=== PATIENT | male | born 1940 | race Caucasian/White ===

== ENCOUNTER 2023-04-06 11:35 | Outpatient (OUT) | payer MEDICARE, OTHER, SELFPAY ==
[2023-04-06 12:30] LABS: Basophils Percent Auto 0.5 % (0.2-2.0); Eosinophils Absolute Auto 0.1 10^3/uL (0.0-0.7); Eosinophils Percent Auto 3.6 % (0.9-7.0); Hematocrit 35.3 % (42.0-54.0); Hemoglobin 10.8 g/dL (14.0-18.0); Immature Granulocytes Abs Auto 0.01 10^3/uL (0.00-0.03); Immature Granulocytes Pct Auto 0.3 % (0.0-0.5); Lymphocytes Percent Auto 25.2 % (20.5-60.0); Mean Corpuscular HGB Conc 30.6 g/dL (29.9-35.2); Mean Corpuscular Hemoglobin 25.5 pg (25.9-34.0); Mean Corpuscular Volume 83.3 fL (80.0-94.0); Monocytes Absolute Auto 0.4 10^3/uL (0.3-0.8); Monocytes Percent Auto 10.9 % (1.7-12.0); Neutrophils Absolute Auto 2.3 10^3/uL (1.4-6.5); Neutrophils Percent Auto 59.5 % (43.0-75.0); Platelet Count 156 10^3/uL (150-450); Red Blood Count 4.24 10^6/uL (4.70-6.10); Red Cell Distribution Width 19.4 % (11.0-15.0); White Blood Count 3.9 10^3/uL (4.0-11.0)
[2023-04-06 12:46] LABS: Alanine Aminotransferase 31 U/L (16-63); Albumin Globulin Ratio 0.9; Albumin Level 3.3 g/dL (3.4-5.0); Alkaline Phosphatase 91 U/L (46-116); Anion Gap 11.8; Aspartate Amino Transferase 39 U/L (15-37); Bilirubin Total 0.7 mg/dL (0.2-1.0); Calcium 8.3 mg/dL (8.5-10.1); Carbon Dioxide 26.1 mmol/L (21.0-32.0); Chloride 107 mmol/L (98-107); Estimated GFR (African America >60 (>=60); Estimated GFR (Non-African Ame >60 (>=60); Globulin 3.8 g/dL; Glucose 105 mg/dL (74-106); Potassium 3.9 mmol/L (3.5-5.1); Sodium 141 mmol/L (136-145); Total Protein 7.1 g/dL (6.4-8.2)
[2023-04-07 03:07] LABS: Vitamin B12 280 pg/mL (232-1245)
== END 2023-04-06 11:36 | disposition home or self-care (01) ==
PROVIDERS: PCP Family Medicine; Visit Provider Family Medicine
DX: I48.21 Permanent atrial fibrillation (principal); R53.83 Other fatigue; I10 Essential (primary) hypertension
CPT/HCPCS: 36415; 80053; 82607; 82746; 85025

== ENCOUNTER 2023-10-13 08:08 | Outpatient (OUT) | payer MEDICARE, OTHER, SELFPAY ==
[2023-10-13 08:31] LABS: Basophils Percent Auto 0.6 % (0.2-2.0); Eosinophils Absolute Auto 0.2 10^3/uL (0.0-0.7); Eosinophils Percent Auto 3.6 % (0.9-7.0); Hematocrit 37.9 % (42.0-54.0); Hemoglobin 11.9 g/dL (14.0-18.0); Lymphocytes Absolute Auto 1.3 10^3/uL (1.2-3.8); Lymphocytes Percent Auto 24.1 % (20.5-60.0); Mean Corpuscular HGB Conc 31.4 g/dL (29.9-35.2); Mean Corpuscular Hemoglobin 28.9 pg (25.9-34.0); Mean Platelet Volume 9.9 fL (9.5-13.5); Monocytes Absolute Auto 0.5 10^3/uL (0.3-0.8); Monocytes Percent Auto 9.5 % (1.7-12.0); Neutrophils Absolute Auto 3.3 10^3/uL (1.4-6.5); Neutrophils Percent Auto 62.2 % (43.0-75.0); Platelet Count 191 10^3/uL (150-450); Red Blood Count 4.12 10^6/uL (4.70-6.10); Red Cell Distribution Width 15.4 % (11.0-15.0); White Blood Count 5.3 10^3/uL (4.0-11.0)
[2023-10-13 08:40] LABS: Alanine Aminotransferase 24 U/L (16-63); Albumin Globulin Ratio 0.7; Alkaline Phosphatase 82 U/L (46-116); Anion Gap 10.7; Aspartate Amino Transferase 20 U/L (15-37); BUN Creatinine Ratio 13.3; Bilirubin Total 1.1 mg/dL (0.2-1.0); Calcium 8.5 mg/dL (8.5-10.1); Carbon Dioxide 29.3 mmol/L (21.0-32.0); Chloride 104 mmol/L (98-107); Chol HDL Ratio 1.8; Cholesterol 98 mg/dL (<=200); Estimated GFR (African America >60 (>=60); Estimated GFR (Non-African Ame >60 (>=60); Globulin 4.1 g/dL; Glucose 100 mg/dL (74-106); HDL Cholesterol 56 mg/dL (40-60); Sodium 140 mmol/L (136-145); Total Protein 7.1 g/dL (6.4-8.2); Triglycerides 35 mg/dL (<=150)
== END 2023-10-13 08:09 | disposition home or self-care (01) ==
LOC: LAB 08:10
PROVIDERS: PCP Family Medicine; Visit Provider Family Medicine
DX: I25.10 Atherosclerotic heart disease of native coronary artery without angina pectoris (principal); I10 Essential (primary) hypertension; E78.5 Hyperlipidemia, unspecified
CPT/HCPCS: 36415; 80053; 80061; 85025

== ENCOUNTER 2024-10-05 07:50 | Outpatient (OUT) | payer MEDICARE, OTHER, SELFPAY ==
--- NOTE | 2024-10-05 08:01 | CT_ITS ---
[address] [address] Patient Name: BRAVO TOLEDO MRN: [id number] date: 1940 Sex: M Assigned Patient Location: LAB Current Patient Location: LAB Accession/Order Number: [id number] Exam Date: 10/05/2024 08:50 Report Date: 10/05/2024 09:55 At the request of: MYLENE GUADALUPE Procedure: CT abdomen pelvis wo/w con EXAMINATION: CT abdomen pelvis wo/w con HISTORY: Cyst Of Pancreas, Lesion Left Lobe Liver ; history of bladder cancer COMPARISON: CT abdomen pelvis 05/17/2022 TECHNIQUE: Axial, Coronal, and Sagittal images were obtained without and/or with IV contrast as indicated by examination type. Dose reduction techniques were achieved by using automated exposure control and/or adjustment of mA and/or kV according to patient size and/or use of iterative reconstruction technique. FINDINGS: LUNG BASES: Moderate emphysematous changes. LIVER: Scattered small nonenhancing hypodensities favoring cysts. BILIARY: Cholecystectomy. PANCREAS: Nonenhancing 2.5 cm fluid collection projecting anteriorly from body of pancreas compatible with a pseudocyst. No mass, abnormal duct dilation, or inflammatory changes. SPLEEN: No enlargement or focal lesion. ADRENALS: No mass or enlargement. KIDNEYS: A few tiny hypodensities which are too small to characterize but favor cysts. No mass, obstruction, or calcification. BOWEL/MESENTERY: Prior resection and anastomosis of the colon in region of the splenic flexure with development of a large pouchlike area: Unchanged. Diverticulosis of distal colon. No visible mass, obstruction, or bowel wall thickening. AORTA/VASCULAR: No aneurysm or dissection. RETROPERITONEUM: No mass or adenopathy. LYMPH NODES: No adenopathy. URINARY BLADDER: No visible focal wall thickening, lesion, or calculus. PELVIC ORGANS: No visible mass. Pelvic organs appropriate for patient age. ABDOMINAL WALL: Bowel filled supraumbilical ventral hernia 9.4 x 11.4 x 2.7 cm with wide neck; no obstruction or strangulation. BONES: Multilevel moderate-marked degenerative disc disease and mild degenerative facet arthropathy resulting in central canal and foraminal narrowing. Prior right hip replacements and repair of posterior margin of the acetabulum and ischial tuberosity. Old, healed right pubic rami fractures. OTHER: Negative. CT/CT abdomen pelvis wo/w con IMPRESSION: 1. Pancreatic lesion is compatible with a benign-appearing pseudocyst. 2. Hepatic lesions are compatible with benign-appearing cysts. 3. Large supraumbilical ventral hernia containing bowel which is increased in size. No obstruction or strangulation. 4. Additional chronic changes detailed above. Electronically authenticated by: SARAH ROSA Date: 10/05/2024 09:55
[2024-10-05 08:23] LABS: Estimated GFR (African America >60 (>=60 mL/min/1.73m^2); Estimated GFR (Non-African Ame >60 (>=60 mL/min/1.73m^2)
== END 2024-10-05 07:51 | disposition home or self-care (01) ==
LOC: LAB 07:50
PROVIDERS: PCP Family Medicine; Visit Provider Family Medicine
DX: K86.2 Cyst of pancreas (principal); K76.9 Liver disease, unspecified; K43.9 Ventral hernia without obstruction or gangrene
CPT/HCPCS: 36415; 74178; 82565; Q9967

== ENCOUNTER 2025-02-20 09:28 | Outpatient (OUT) | payer MEDICARE, OTHER, SELFPAY ==
--- OUTSIDE RECORDS SUMMARY | 2025-02-09 03:23 | XMS_ITS | Continuity of Care Document ---
Author Organization [facility] Address [address] [place] [address] Phone Support Name Relationship Address Phone Claude Smitha Emergency Contact [address] [place] [address] [address] [place] [address] Monty Rubio DO Personal Relationship [address] [place] [address] Yokasta Dunn MD Personal Relationship [address] [place] [address] Orestes Guthrie MD Personal Relationship [address] [place] [address] Ric Rebollar MD Personal Relationship [address] [place] [address] Miladys Shields MD Personal Relationship [address] [place] [address] Rossy Rivera WEB SITE PROJECT MANAGER-C Personal Relationship Unknown Unavailable Godwin Gordillo DO Personal Relationship [address] [place] [address] Haroldo Ko II, MD Personal Relationship [address] [place] [address] Selvin Gregorio DO Personal Relationship [address] [place] [address] [address] Teresa Cuellar RN Personal Relationship Unknown Unavailable Chapo Lowe DO Personal Relationship [address] [place] [address] Chicho Sheppard MD Personal Relationship [address] [place] [address] Rodolfo Willis MD Personal Relationship [address] [place] [address] Albertina Rousseau MD Personal Relationship [address] [place] [address] Kev Gooden MD Personal Relationship [address] [facility], [address] [place] [address] Elsy Coronel APRN Personal Relationship [address] [place] [address] Virgen Potts MD Personal Relationship [address] [facility], [address] [place] [address] Jean Marie Bella MD Personal Relationship [address] [place] [address] Dimple Grijalva MD Personal Relationship [address] [place] [address] Tere Deluna TIMBER POISONER-BC Personal Relationship [address] [facility] [address] [place] [address] Rahul Barboza MD Personal Relationship [address] [place] [address] Rachel Velazquez MD Personal Relationship [address] [place] [address] Kayden Odom MD Personal Relationship [address] [facility], [address] [place] [address] Jen Acevedo APRN Personal Relationship [address] [facility] [address] [place] [address] Porfirio Grider Jr, DO Personal Relationship [address] [facility], [address] [place] [address] Jorge Clifton MD Personal Relationship [address] [facility] [place] [address] Gabriela Gurrola RN Personal Relationship Unknown Unavailable Ольга Tiwari RN Personal Relationship Unknown Unavailable Aracelis Suarez RN Personal Relationship Unknown Unavailable Stacey Aranda RN Personal Relationship Unknown Un available Mariya Hutton RN Personal Relationship Unknown Jo Ann Lucia Hoffman MD Personal Relationship [address] [place] [address] Aldair Weston DO Personal Relationship [place] [address] Jose Alfredo Sorenson MD Personal [place] [address] Vicente Acevedo DO Personal Relationship [address] [place] [address] MD Personal Relationship [address] [place] [address] Christine Goodson MD Personal Relationship [address] [place] [address] Shade Vickers DO Personal Relationship [address] [place] [address] Gt Devlin MD Personal Relationship Unknown Un available Re Rivera APRN Personal Relationship [address] [place] [address] Sebastian Zacarias MD Personal Relationship [address] [place] [address] Sylvain Hurtado MD Personal Relationship [address] [place] [address] Elizabeth Holguin MD Personal Relationship Unknown U navailable Isaura Pepper MD Personal Relationship [address] [place] [address] Shade Medina DO Personal Relationship [address] [place] [address] Moises Samson MD Personal Relationship [address] [place] [address] Wayne Rolwey MD Personal Relationship [address] [place] [address] Lesvia Conteh WEB SITE PROJECT MANAGER-C Personal Relationship [address] [place] [address] Andrew Sultana FARM MANAGEMENT AGENT Personal Relationship Unknown Unavailable Luis Alfredo Wiley [place] [address] Fuad Thomas MD Personal Relationship [address] [place] [address] Hemal Sharma MD Personal Relationship [address] [place] [address] Bong Patel MD Personal Relationship Unknown Unavailable Carlos Eduardo Monreal MD [place] [address] Arabella Rae DO Personal Relationship [address] [place] [address] Liam Tran DO Personal Relationship [address] [place] [facility] [place] [address] Pratibha Wright FARM MANAGEMENT AGENT Personal Relationship [address] [facility] [place] [address] Edy Hoyt DO Personal Relationship [address] [facility] [place] [address] Dylan Callejas MD Personal Relationship [address] [place] [address] Ninfa Coronel FARM MANAGEMENT AGENT Personal Relationship [address] [place] [facility] [address] Lauren Hutchinson FARM MANAGEMENT AGENT Personal Relationship [address] [place] [address] Kaila Sainz MD Personal Relationship Unknown Un available Blayne Yoon MD Personal Relationship 11 [address] [place] [address] Eric Worley DO Personal Relationship [address] [place] [address] Chester Ashley DO Personal Relationship [address] [facility] [place] [address] Bryan Sharma MD Personal Relationship [address] [facility] [place] [address] Rob Rodriguez MD Personal Relationship [address] [place] [address] Lissa Butcher APRN Personal Relationship Unknown Unavailable Aris Clark MD Personal Relationship [address] [place] [address] Kayden Soliz MD Personal Relationship [address] [place] [address] Gt Moncada MD Personal Relationship [address] [place] [place] [address] Glory Miguel APRN Personal Relationship [address] [place] [address] Jann Cedillo FARM MANAGEMENT AGENT Personal Relationship [address] [place] [address] Destinee Oscar RN Personal Relationship Unknown Un available Chris Arce DO Personal Relationship [address] [facility] [place] [address] Nica Martinez DO Personal Relationship [address] [facility], [address] [place] [address] Magy Olvera CMA Personal Relationship Unknown Unavailable Care Team Providers Care Provider Relations Advocate Name Role Phone Monty Rubio DO Emergency Provider [phone] Yokasta Dunn MD Primary Care Provider Orestes Guthrie MD Admit Provider Ric Rebollar MD Other Provider Miladys Shields MD Other Provider Rossy Rivera WEB SITE PROJECT MANAGER-C Other Provider Unavail able Godwin Gordillo DO Other Provider Haroldo Ko II, MD Other Provider Selvin Gregorio DO Other Provider [phone] Rahul Barboza MD Attending Provider Rachel Velazquez MD Other Provider Kayden Odom MD Other Provider Jen Acevedo APRN Other Provider Porfirio Grider Jr DO Other Provider Jorge Clifton MD Other Provider Amadou Arreguin MD Other Provider Jorge Clifton MD Admit Provider Jorge Clifton MD Attending Provider Gabriela Gurrola RN Other Provider Unavailable Ольга Tiwari RN Other Provider Unavailable Aracelis Suarez RN Other Provider Unavailable Stacey Aranda RN Other Provider Unavailable Mariya Hutton RN Other Provider Unavailable Lucia Orlando MD Other Provider Aldair Weston DO Other Provider [phone] Jose Alfredo Sorenson MD Other Provider Vicente Acevedo DO Other Provider Blayne Street MD Other Provider Christine Goodson MD Other Provider Shade Vickers DO Other Provider [phone] Gt Devlin MD Other Provider Unavailable Re Rivera FARM MANAGEMENT AGENT Other Provider [phone] Sebastian Zacarias MD Other Provider [phone] Sylvain Hurtado MD Other Provider Elizabeth Holguin MD Other Provider Unavailable Isaura Pepper MD Other Provider [phone] Shade Medina DO Other Provider Moises Samson MD Other Provider Wayne Rowley MD Other Provider Lesvia Conteh WEB SITE PROJECT MANAGER-C Other Provider Andrew Sultana FARM MANAGEMENT AGENT Other Provider Unavailable Luis Alfredo Wiley MD Other Provider Fuad Thomas MD Other Provider Hemal Sharma MD Other Provider Bong Patel MD Other Provider Unavailable Carlos Eduardo Monreal MD Other Provider Arabella Rae DO Other Provider Liam Tran DO Other Provider [phone] Pratibha Wright FARM MANAGEMENT AGENT Other Provider Edy Hoyt DO Other Provider Dylan Callejas MD Other Provider [phone] Ninfa Coronel FARM MANAGEMENT AGENT Other Provider [phone] Lauren Hutchinson FARM MANAGEMENT AGENT Other Provider Kaila Sainz MD Other Provider Unavailable Blayne Yoon MD Other Provider Eric Worley DO Other Provider Chester Ashley DO Other Provider [phone] Bryan Sharma MD Other Provider [phone] Rob Rodriguez MD Other Provider Lissa Butcher APRN Other Provider Unavailable Orestes Guthrie MD Other Provider Aris Clark MD Other Provider Kayden Soliz MD Other Provider Gt Moncada MD Other Provider Rahul Barboza MD Other Provider Glory Miguel APRN Other Provider Jann Cedillo FARM MANAGEMENT AGENT Other Provider Destinee Oscar RN Other Provider Unavailable Chris Arce DO Other Provider Godwin Gordillo DO Attending Provider Care Teams Patient Care Team Team Status: Active Member Role Status Dates Yokasta Dunn MD Primary Care Provider Active Visit Care Team Team Status: Inactive Member Role Status Dates Monty Rubio DO Emergency Provider Active Start: November 10, 2024 End: November 18, 2024 Yokasta Dunn MD Primary Care Provider Active Start: November 10, 2024 End: November 18, 2024 Orestes Guthrie MD Admit Provider Active Start: [id number] End: November 18, 2024 Ric Rebollar MD Other Provider Active Start: 2024 End: November 18, 2024 Miladys Shields MD Other Provider Active Star t: November 10, 2024 End: November 18, 2024 Rossy Rivera , WEB SITE PROJECT MANAGER-C Other Provider Active Start: November 10, 2024 End: November 18, 2024 Godwin Gordillo DO Other Provider Active Start : November 10, 2024 End: November 18, 2024 Haroldo Ko II, MD Other Provider Active S tart: November 10, 2024 End: November 18, 2024 Selvin Gregorio DO Other Provider Active Start: November 10, 2024 End: November 18, 2024 Rahul Barboza MD Attending Provider Active Star t: November 10, 2024 End: November 18, 2024 Rachel Velazquez MD Other Provider Active Start: [place] 2024 End: November 18, 2024 Kayden Odom MD Other Provider Active Start: 2024 End: November 18, 2024 Jen Acevedo APRN Other Provider Active St art: November 10, 2024 End: November 18, 2024 Porfirio Grider Jr, DO Other Provider Active S tart: November 10, 2024 End: November 18, 2024 Jorge Clifton MD Other Provider Active Start: November 10, 2024 End: November 18, 2024 Amadou Arreguin MD Other Provider Active Start: November 10, 2024 End: November 18, 2024 Visit Care Team Team Status: Active Member Role Status Dates Monty Rubio DO Emergency Provider Active Start: November 11, 2024 Yokasta Dunn MD Primary Care Provider Active Start: November 11, 2024 Orestes Guthrie MD Admit Provider, Othe r Provider Active Start: November 11, 2024 Ric Rebollar MD Other Provider Active Start: ebruary 2024 Miladys Shields MD Other Provider Active Star t: November 11, 2024 Rossy Rivera NP-C Other Provider Active Start: November 11, 2024 Godwin Gordillo DO Attending Provider, Other Provider Active Start: November 11, 2024 Haroldo Ko II, MD Other Provider Active S tart: November 11, 2024 Selvin Gregorio DO Other Provider Active Start: November 11, 2024 Teresa Cuellar RN Other Provider Active Star t: November 11, 2024 Chapo Lowe DO Other Provider Active Start : November 11, 2024 Chicho Sheppard MD Other Provider Active Start: November 11, 2024 Rodolfo Willis MD Other Provider Active Start: November 11, 2024 Albertina Rousseau MD Other Provider Active St art: November 11, 2024 Kev Gooden MD Other Provider Active Start: November 11, 2024 Elsy Coronel APRN Other Provider Active Start : November 11, 2024 Virgen Potts MD Other Provider Active Start: ebruary 2024 Jean Marie Bella MD Other Provider Active Start: November 11, 2024 Dimple Grijalva MD Other Provider Active Start: ebruary 2024 Tere Deluna , TIMBER POISONER- Other Provider Active Sta rt: November 11, 2024 Visit Care Team Team Status: Active Member Role Status Dates Monty Rubio DO Emergency Provider Active Start: November 13, 2024 Yokasta Dunn MD Primary Care Provider Active Start: November 13, 2024 Orestes Guthrie MD Admit Provider Active Start: ebruary 2024 Ric Rebollar MD Other Provider Active Start: ebruary 2024 Miladys Shields MD Other Provider Active Star t: November 13, 2024 TRINI Fernando Other Provider Active Start: November 13, 2024 Godwin Gordillo , DO Other Provider Active Start : November 13, 2024 Haroldo Ko II, MD Other Provider Active S tart: November 13, 2024 Selvin Gregorio , DO Other Provider Active Start: November 13, 2024 Teresa Cuellar RN Other Provider Active Star t: November 13, 2024 Chapo Lowe , Other Provider Active Start : November 13, 2024 Chicho Sheppard MD Other Provider Active Start: November 13, 2024 Rodolfo Willis MD Other Provider Active Start: November 13, 2024 Albertina Rousseau MD Other Provider Active St art: November 13, 2024 Kev Gooden MD Other Provider Active Start: November 13, 2024 Elsy Coronel APRN Other Provider Active Start : November 13, 2024 Virgen Potts MD Other Provider Active Start: ebruary 2024 Jean Marie Bella MD Other Provider Active Start: November 13, 2024 Dimple Grijalva MD Other Provider Active Start: ebruary 2024 Tere Deluna , [facility]- Other Provider Active Sta rt: November 13, 2024 Rahul Barboza MD Other Provider Active Start: ebruary 2024 Rachel Velazquez MD Other Provider Active Start: bru2024 Kayden Odom MD Attending Provider, Other Provider Active Start: November 13, 2024 Jen Acevedo APRN Other Provider Active St art: November 13, 2024 Porfirio Grider Jr, DO Other Provider Active S tart: November 13, 2024 Jorge Clifton MD Other Provider Active Start: November 13, 2024 Visit Care Team Team Status: Inactive Member Role Status Dates Yokasta Dunn MD Primary Care Provider Active Start: November 18, 2024 End: November 30, 2024 Jorge Clifton MD Admit Provid er, Attending Provider Active Start: November 18, 2024 End: November 30, 2024 Gabriela Gurrola , GREG Other Provider Active Star t: November 18, 2024 End: November 30, 2024 Ольга Tiwari , GREG Other Provider Active Start : November 18, 2024 End: November 30, 2024 Aracelis Suarez RN Other Provider Active Star t: November 18, 2024 End: November 30, 2024 Stacey Aranda RN Other Provider Active Start: ebruary 2024 End: November 30, 2024 Mariya Hutton RN Other Provider Active Start: Fe bruary 2024 End: November 30, 2024 Lucia Orlando MD Other Provider Active Start: November 18, 2024 End: November 30, 2024 Aldair Weston DO Other Provider Active Start : November 18, 2024 End: November 30, 2024 Jose Alfredo Sorenson MD Other Provider Active Start : November 18, 2024 End: November 30, 2024 Vicente Acevedo DO Other Provider Active Start: November 18, 2024 End: November 30, [address] MD Other Provider Active Start: November 18, 2024 End: November 30, 2024 Christine Goodson MD Other Provider Active Start : November 18, 2024 End: November 30, 2024 Shade Vickers DO Other Provider Active St art: November 18, 2024 End: November 30, 2024 Gt Devlin MD Other Provider Active Start: ebruary 2024 End: November 30, 2024 Re Rivera APRN Other Provider Active Start: November 18, 2024 End: November 30, 2024 Sebastian Zacarias MD Other Provider Active Start: November 18, 2024 End: November 30, 2024 Sylvain Hurtado MD Other Provider Active Start: ebruary 2024 End: November 30, 2024 Elizabeth Holguin MD Other Provider Active Start: November 18, 2024 End: November 30, 2024 Isaura Pepper MD Other Provider Active Start: November 18, 2024 End: November 30, 2024 Shade Medina DO Other Provider Active Start: November 18, 2024 End: November 30, 2024 Moises Samson MD Other Provider Active Start: 2024 End: November 30, 2024 Wayne Rowley MD Other Provider Active Start: Oct End: November 30, 2024 TRINI Childers Other Provider Active St art: November 18, 2024 End: November 30, 2024 Andrew Sultana APRN Other Provider Active Star t: November 18, 2024 End: November 30, 2024 Luis Alfredo Wiley MD Other Provider Active Start: November 18, 2024 End: November 30, 2024 Fuad Thomas MD Other Provider Active Start: 2024 End: November 30, 2024 Hemal Sharma MD Other Provider Active Start: Oct End: November 30, 2024 Bong Patel MD Other Provider Active Star t: November 18, 2024 End: November 30, 2024 Carlos Eduardo Monreal MD Other Provider Active Start: 2024 End: November 30, 2024 Arabella Rae DO Other Provider Active Start: 2024 End: November 30, 2024 Liam Tran DO Other Provider Active Start : November 18, 2024 End: November 30, 2024 Pratibha Wright APRN Other Provider Active Start: November 18, 2024 End: November 30, 2024 Edy Hoyt DO Other Provider Active Start: November 18, 2024 End: November 30, 2024 Dylan Callejas MD Other Provider Active Sta rt: November 18, 2024 End: November 30, 2024 Ninfa Coronel APRN Other Provider Active Start : November 18, 2024 End: November 30, 2024 Lauren Hutchinson APRN Other Provider Active St art: November 18, 2024 End: November 30, 2024 Kaila Sainz MD Other Provider Active Start: 2024 End: November 30, 2024 Blayne Yoon MD Other Provider Active S tart: November 18, 2024 End: November 30, 2024 Eric Worley DO Other Provider Active Star t: November 18, 2024 End: November 30, 2024 Chester Ashley DO Other Provider Active Start: November 18, 2024 End: November 30, 2024 Bryan Sharma MD Other Provider Active Start: November 18, 2024 End: November 30, 2024 Rob Rodriguez MD Other Provider Active Start: October End: November 30, 2024 Lissa Butcher APRN Other Provider Active Star t: November 18, 2024 End: November 30, 2024 Orestes Guthrie MD Other Provider Active Start: ebruary 2024 End: November 30, 2024 Aris Clark MD Other Provider Active Start: [place] 2024 End: November 30, 2024 Kayden Soliz MD Other Provider Active Start: November 18, 2024 End: November 30, 2024 Gt Moncada MD Other Provider Active Start : November 18, 2024 End: November 30, 2024 Rahul Barboza MD Other Provider Active Start: ebruary 2024 End: November 30, 2024 Glory Miguel APRN Other Provider Active Sta rt: November 18, 2024 End: November 30, 2024 Jann Cedillo APRN Other Provider Active Start: October End: November 30, 2024 Destinee Oscar RN Other Provider Active Start: [place] 2024 End: November 30, 2024 Chris Arce DO Other Provider Active Start: November 18, 2024 End: November 30, 2024 Visit Care Team Team Status: Active Member Role Status Dates Yokasta Dunn MD Primary Care Provider Active Start: November 19, 2024 Jorge Clifton MD Admit Provid er, Attending Provider, Other Provider Active Start: November 19, 2024 Gabriela Gurrola RN Other Provider Active Star t: November 19, 2024 Ольга Tiwari RN Other Provider Active Start : November 19, 2024 Aracelis Suarez RN Other Provider Active Star t: November 19, 2024 Stacey Aranda RN Other Provider Active Start: ebruary 2024 Mariya Hutton RN Other Provider Active Start: 2024 Lucia Orlando MD Other Provider Active Start: November 19, 2024 Aldair Weston , Other Provider Active Start : November 19, 2024 Jose Alfredo Sorenson MD Other Provider Active Start : November 19, 2024 Vicente Acevedo DO Other Provider Active Start: November 19, [address] MD Other Provider Active Start: November 19, 2024 Christine Goodson MD Other Provider Active Start : November 19, 2024 Shade Vickers DO Other Provider Active St art: November 19, 2024 Gt Devlin MD Other Provider Active Start: 2024 Re Rivera APRN Other Provider Active Start: November 19, 2024 Sebastian Zacarias MD Other Provider Active Start: November 19, 2024 Sylvain Hurtado MD Other Provider Active Start: 2024 Elizabeth Holguin MD Other Provider Active Start: November 19, 2024 Isaura Pepper MD Other Provider Active Start: November 19, 2024 Shade Medina DO Other Provider Active Start: November 19, 2024 Moises Samson MD Other Provider Active Start: 2024 Wayne Rowley MD Other Provider Active Start: Oct Lesvia Conteh WEB SITE PROJECT MANAGER-C Other Provider Active St art: November 19, 2024 Andrew Sultana APRN Other Provider Active Star t: November 19, 2024 Luis Alfredo Wiley MD Other Provider Active Start: November 19, 2024 Fuad Thomas MD Other Provider Active Start: 2024 Hemal Sharma MD Other Provider Active Start: Oct Bong Patel MD Other Provider Active Star t: November 19, 2024 Carlos Eduardo Monreal MD Other Provider Active Start: ebruary 2024 Arabella Rae DO Other Provider Active Start: 2024 Liam Tran DO Other Provider Active Start : November 19, 2024 Pratibha Wright APRN Other Provider Active Start: November 19, 2024 Edy Hoyt DO Other Provider Active Start: November 19, 2024 Dylan Callejas MD Other Provider Active Sta rt: November 19, 2024 Ninfa Coronel APRN Other Provider Active Start : November 19, 2024 Lauren Hutchinson APRN Other Provider Active St art: November 19, 2024 Kaila Sainz MD Other Provider Active Start: ebruary 2024 Blayne Yoon MD Other Provider Active S tart: November 19, 2024 Eric Worley , Other Provider Active Star t: November 19, 2024 Chester Ashley DO Other Provider Active Start: November 19, 2024 Bryan Sharma MD Other Provider Active Start: November 19, 2024 Rob Rodriguez MD Other Provider Active Start: October Lissa Butcher APRN Other Provider Active Star t: November 19, 2024 Orestes Guthrie MD Other Provider Active Start: ebruary 2024 Aris Clark MD Other Provider Active Start: Fe bruary 2024 Kayden Soliz MD Other Provider Active Start: November 19, 2024 Gt Moncada MD Other Provider Active Start : November 19, 2024 Rahul Barboza MD Other Provider Active Start: ebruary 2024 Glory Miguel APRN Other Provider Active Sta rt: November 19, 2024 Jann Cedillo APRN Other Provider Active Start: October Destinee Oscar RN Other Provider Active Start: ebruary 2024 Visit Care Team Team Status: Active Member Role Status Dates Yokasta Dunn MD Primary Care Provider Active Start: November 26, 2024 Jorge Clifton MD Admit Provid er, Attending Provider, Other Provider Active Start: November 26, 2024 Gabriela Gurroal RN Other Provider Active Star t: November 26, 2024 Ольга Tiwari , GREG Other Provider Active Start : November 26, 2024 Aracelis Suarez RN Other Provider Active Star t: November 26, 2024 Stacey Aranda RN Other Provider Active Start: [facility] 2024 Mariya Hutton RN Other Provider Active Start: [facility] 2024 Lucia Orlando MD Other Provider Active Start: November 26, 2024 Aldair Weston DO Other Provider Active Start : November 26, 2024 Jose Alfredo Sorenson MD Other Provider Active Start : November 26, 2024 Vicente Acevedo DO Other Provider Active Start: November 26, [address] MD Other Provider Active Start: November 26, 2024 Christine Goodson MD Other Provider Active Start : November 26, 2024 Shade Vickers DO Other Provider Active St art: November 26, 2024 Gt Devlin MD Other Provider Active Start: [facility] 2024 Re Rivera APRN Other Provider Active Start: November 26, 2024 Sebastian Zacarias MD Other Provider Active Start: November 26, 2024 Sylvain Hurtado MD Other Provider Active Start: [facility] 2024 Elizabeth Holguin MD Other Provider Active Start: November 26, 2024 Isaura Pepper MD Other Provider Active Start: November 26, 2024 Shade Medina DO Other Provider Active Start: November 26, 2024 Moises Samson MD Other Provider Active Start: [facility] 2024 Wayne Rowley MD Other Provider Active Start: [facility] 2024 Lesvia Conteh NP-C Other Provider Active St art: November 26, 2024 Andrew Sultana APRN Other Provider Active Star t: November 26, 2024 Luis Alfredo Wiley MD Other Provider Active Start: November 26, 2024 Fuad Thomas MD Other Provider Active Start: [facility] 2024 Hemal Sharma MD Other Provider Active Start: [facility] 2024 Bong Patel MD Other Provider Active Star t: November 26, 2024 Carlos Eduardo Monreal MD Other Provider Active Start: [facility] 2024 Arabella Rae DO Other Provider Active Start: [facility] 2024 Liam Tran DO Other Provider Active Start : November 26, 2024 Pratibha Wright APRN Other Provider Active Start: November 26, 2024 Edy Hoyt DO Other Provider Active Start: November 26, 2024 Dylan Callejas MD Other Provider Active Sta rt: November 26, 2024 Ninfa Coronel APRN Other Provider Active Start : November 26, 2024 Lauren Hutchinson APRN Other Provider Active St art: November 26, 2024 Kaila Sainz MD Other Provider Active Start: [facility] 2024 Blayne Yoon MD Other Provider Active S tart: November 26, 2024 Eric Worley , Other Provider Active Star t: November 26, 2024 Chester Ashley , Other Provider Active Start: November 26, 2024 Bryan Sharma MD Other Provider Active Start: November 26, 2024 Rob Rodriguez MD Other Provider Active Start: November 26 Lissa Butcher APRN Other Provider Active Star t: November 26, 2024 Orestes Guthrie MD Other Provider Active Start: [facility] 2024 Aris Clark MD Other Provider Active Start: [facility] 2024 Kayden Soliz MD Other Provider Active Start: November 26, 2024 Gt Moncada MD Other Provider Active Start : November 26, 2024 Rahul Barboza MD Other Provider Active Start: [facility] 2024 Glory Miguel APRN Other Provider Active Sta rt: November 26, 2024 Jann Cedillo APRN Other Provider Active Start: November 26 Destinee Oscar RN Other Provider Active Start: [facility] 2024 Chris Arce DO Other Provider Active Start: November 26, 2024 Visit Care Team Team Status: Active Member Role Status Dates Yokasta Dunn MD Primary Care Provider Active Start: November 27, 2024 Jorge Clifton MD Admit Provid er, Other Provider Active Start: November 27, 2024 Gabriela Gurrola RN Other Provider Active Star t: November 27, 2024 Ольга Tiwari , GREG Other Provider Active Start : November 27, 2024 Aracelis Suarez , GREG Other Provider Active Star t: November 27, 2024 Stacey Aranda RN Other Provider Active Start: [facility] 2024 Mariya Hutton RN Other Provider Active Start: [facility] 2024 Lucia Orlando MD Other Provider Active Start: November 27, 2024 Aldair Weston , Other Provider Active Start : November 27, 2024 Jose Alfredo Sroenson MD Other Provider Active Start : November 27, 2024 Vicente Acevedo , Other Provider Active Start: November 27, [address] MD Other Provider Active Start: November 27, 2024 Christine Goodson MD Other Provider Active Start : November 27, 2024 Shade Vickers , Other Provider Active St art: November 27, 2024 Gt Devlin MD Other Provider Active Start: [facility] 2024 Re Rivera APRN Other Provider Active Start: November 27, 2024 Sebastian Zacarias MD Other Provider Active Start: November 27, 2024 Sylvain Hurtado MD Other Provider Active Start: [facility] 2024 Elizabeth Holguin MD Other Provider Active Start: November 27, 2024 Isaura Pepper MD Other Provider Active Start: November 27, 2024 Shade Medina DO Other Provider Active Start: November 27, 2024 Moises Samson MD Other Provider Active Start: [facility] 2024 Wayne Rowley MD Other Provider Active Start: [facility] 2024 Lesvia Conteh NP-C Other Provider Active St art: November 27, 2024 Andrew Sultana APRN Other Provider Active Star t: November 27, 2024 Luis Alfredo Wiley MD Other Provider Active Start: November 27, 2024 Fuad Thomas MD Other Provider Active Start: [facility] 2024 Hemal Sharma MD Other Provider Active Start: [facility] 2024 Bong Patel MD Other Provider Active Star t: November 27, 2024 Carlos Eduardo Monreal MD Other Provider Active Start: [facility] 2024 Arabella Rae , Other Provider Active Start: [facility] 2024 Liam Tran , Other Provider Active Start : November 27, 2024 Pratibha Wright APRN Other Provider Active Start: November 27, 2024 Edy Hoyt DO Other Provider Active Start: November 27, 2024 Dylan Callejas MD Other Provider Active Sta rt: November 27, 2024 Ninfa Coronel APRN Other Provider Active Start : November 27, 2024 Lauren Hutchinson APRN Other Provider Active St art: November 27, 2024 Kaila Sainz MD Other Provider Active Start: [facility] 2024 Blayne Yoon MD Other Provider Active S tart: November 27, 2024 Eric Worley , DO Other Provider Active Star t: November 27, 2024 Chester Ashley , Other Provider Active Start: November 27, 2024 Bryan Sharma MD Other Provider Active Start: November 27, 2024 Rob Rodriguez MD Other Provider Active Start: November 27 Lissa Butcher APRN Other Provider Active Star t: November 27, 2024 Orestes Guthrie MD Other Provider Active Start: [facility] 2024 Aris Clark MD Other Provider Active Start: [facility] 2024 Kayden Soliz MD Other Provider Active Start: November 27, 2024 Gt Moncada MD Other Provider Active Start : November 27, 2024 Rahul Barboza MD Other Provider Active Start: [facility] 2024 Glory Miguel APRN Other Provider Active Sta rt: November 27, 2024 Jann Cedillo APRN Other Provider Active Start: November 27 Destinee Oscar RN Other Provider Active Start: [facility] 2024 Chris Arce DO Other Provider Active Start: November 27, 2024 Nica Martinez DO Attending Provider Active Start: November 27, 2024 Visit Care Team Team Status: Active Member Role Status Dates Yokasta Dunn MD Primary Care Provider Active Start: November 29, 2024 Magy Olvera CMA Attending Provider Active Start: November 29, 2024 Visit Care Team Team Status: Inactive Member Role Status Dates Yokasta Dunn MD Primary Care Provide r, Attending Provider Active Start: December 03, 2024 End: December 03, 2024 Visit Care Team Team Status: Inactive Member Role Status Dates Yokasta Dunn MD Primary Care Provider Active Start: December 07, 2024 End: December 07, 2024 Godwin Gordillo DO Attending Provider Active S tart: December 07, 2024 End: December 07, 2024 Visit Care Team Team Status: Inactive Member Role Status Dates Yokasta Dunn MD Primary Care Provider Active Start: December 07, 2024 End: December 07, 2024 Godwin Gordillo DO Attending Provider Active S tart: December 07, 2024 End: December 07, 2024 Patient Care Team Team Status: Inactive Member Role Status Dates Yokasta Dunn MD Primary Care Provide r, Attending Provider Active Start: February 05, 2025 End: February 05, 2025 Chief Complaint and Reason for Visit Chief Complaint Admit Date left leg pain November 10, 2024 7:04pm left leg pain November 11, 2024 5:52pm left leg pain November 13, 2024 1:33pm L hip fx s/p orif November 18, 2024 1:05pm L hip fx s/p orif November 19, 2024 10:11am L hip fx s/p orif November 26, 2024 2:53 pm L hip fx s/p orif November 27, 2024 11:2 6am Amb Documentation November 29, 2024 1:41 pm [facility] [place] left femoral neck fracture [facility] 2024 2:19pm S72.002A - Fracture of unspecified part of neck of December 07, 2024 8:07am 3 WEEKS December 07, 2024 9:3 5am Check Up February 05, 2025 10:22 am Reason for Visit Admit Date History of head and neck cancer November 10, 2024 7:04pm Pathological fracture, left femur, initial encounter for fracture November 10, 2024 7:04pm Pre-op evaluation November 10, 2024 7:04pm Closed displaced fracture of left femora l neck November 10, 2024 7:04pm Dysphagia November 10, 2024 7:04pm Mild left ventricular systolic dysfuncti on November 10, 2024 7:04pm Permanent atrial fibrillation October [id number] 7:04pm S/P CABG x 3 November 10, 2024 7:04pm Severe protein-calorie malnutrition Febr ry 2024 7:04pm Sick sinus syndrome November 10, 2024 7:04pm Status post placement of cardiac pacemak er November 10, 2024 7:04pm Closed displaced fracture of left femora l neck November 18, 2024 1:05pm Counseling regarding advance care planning and goals of care November 18, 2024 1:05pm Dysphagia November 18, 2024 1:05pm Impaired mobility and activities of saadia y living November 18, 2024 1:05pm Mild left ventricular systolic dysfuncti on November 18, 2024 1:05pm Permanent atrial fibrillation October [id number] 1:05pm S/P CABG x 3 November 18, 2024 1:05pm Severe protein-calorie malnutrition Febr uary 2024 1:05pm Sick sinus syndrome November 18, 2024 1:05pm Status post placement of cardiac pacemak er November 18, 2024 1:05pm Closed displaced fracture of left femora l neck December 03, 2024 2:19pm Dysphagia December 03, 2024 2:1 9pm Permanent atrial fibrillation November 2:19pm Severe protein-calorie malnutrition Jose 2024 2:19pm Sick sinus syndrome December 03, 2024 2:1 9pm Closed displaced fracture of left femora l neck December 07, 2024 9:35am History of total right hip arthroplasty December 07, 2024 9:35am Swallowing disorder February 05, 2025 10:22 am Health Concerns Concerns A [facility] screening has identified you as FRAIL or AT RISK FOR FRAILTY. This puts you at a higher risk for infection, illness, falls, and other injuries. Here are four ways to help you reduce your risk of frailty: 1. IDENTIFY EARLY SIGNS OF FRAILTY Discuss contributing factors and concerns with your doctor 2. BE ACTIVE Walking and light strengthening exercises will help reduce weakness 3. EAT WELL Aim for three healthy meals a day that are high in protein 4. THINK POSITIVE Keep your mind active by being sociable and continuing to learn References: Stay Strong: Four Ways to Beat the Frailty Risk https://www.[facility].org/health/xpoagstc-iwa-yxzsvrwiry/nfgr-jddiru-oxxx- ways- yo-nvnp-ybv-fra ilty-risk A [facility] screening has identified you as FRAIL or AT RISK FOR FRAILTY. This puts you at a higher risk for infection, illness, falls, and other injuries. Here are four ways to help you reduce your risk of frailty: 1. IDENTIFY EARLY SIGNS OF FRAILTY Discuss contributing factors and concerns with your doctor 2. BE ACTIVE Walking and light strengthening exercises will help reduce weakness 3. EAT WELL Aim for three healthy meals a day that are high in protein 4. THINK POSITIVE Keep your mind active by being sociable and continuing to learn References: Stay Strong: Four Ways to Beat the Frailty Risk https://www.[facility].org/health/fgoulbjy-fzq-yvtqvzytze/icct-ubsjab-xxij- ways- zy-deyo-gvd-fra ilty-risk Allergies, Adverse Reactions, Alerts Allergen Type Severity Reaction Last Updated Verified Status Comments gabapentin Allergy Unknown Unknown Reaction February 05, 2025 10:36am Yes Active Onset Date: 09/22/2017 penicillin V Allergy Unknown Unknown Reaction February 05, 2025 10:36am Yes Active Penicillins Allergy Unknown Unknown Reaction February 05, 2025 10:36am Yes Active haloperidol Allergy Unknown HYPOXIA February 05, 2025 10:36am Yes Active lorazepam Allergy Unknown HYPOXIA February 05, 2025 10:36am Yes Active ziprasidone Allergy Unknown HYPOXIC February 05, 2025 10:36am Yes Active Social History Smoking Status Status Start Date End Date Date of Observa tion Never smoked tobacco (finding) November 27, 2024 11:26am Observation Status Observation Response Date of Response Patient Sex Male February 05, 2025 1 1:11am Assigned Sex Male February 20 2 Social History Assessments SDOH Follow up Observation Response Date Recorded Has the SDOH screening changed since admission? N November 29, 2024 5:15pm SDOH Follow up Observation Response Date Recorded Has the SDOH screening changed since admission? N November 13, 2024 2:10pm Family History Relationship Condition Age at Onset Recorded Date/T roxanne father Unknown mother Unknown Problems Active Problems Medical Problem Onset Date Status Benign positional vertigo Active Pathological fracture, left femur, initial encou nter for fracture Active Swallowing disorder Active Dysuria Active Hyperlipidemia Active Essential hypertension Active History of head and neck cancer Active Lesion of left lobe of liver Act bereket Cystic mass of pancreas Active Inactive/Resolved Problems Medical Problem Onset Date Status Counseling regarding advance care planning and g oals of care Resolved Mild left ventricular systolic dysfunction Resolved Status post placement of cardiac pacemaker Resolved Impaired mobility and activities of daily living Resolved Severe protein-calorie malnutrition Resolved Sick sinus syndrome Resolved Dysphagia Resolved Pre-op evaluation Resolved Permanent atrial fibrillation Re solved Closed displaced fracture of left femoral neck Resolved S/P CABG x 3 Resolved Malignant neoplasm of skin of face Resolved Medications Medication Status Dose Units Route Directions Qty Days St art Date Stop Date End Date Instructions Tobramycin-D examethasone 0.3-0.1 % Drops,Suspen nito Discont inued 1 DROPS OPHTHA LMIC Twice daily as needed for Eye allergy symptoms February 02, 2018 12:00a m Dece 2017 12:39 pm Atorvastatin 20 mg Tablet Active 20 MG PEG Every evening 30 November 28, 2024 1:00am Clopidogrel 75 mg Tablet Active 75 MG PEG Daily 30 November 28, 2024 1:00am Acetaminophe n 650 mg/20.3 mL Suspension Active 650 MG PEG Q6H 2436 November 28, 2024 1:00am Latanoprost 0.005 % Drops Active 1 DROPS EYE-EDDIE TH Daily at bedtime 2.November 28, 2024 1:00am Finasteride 5 mg Tablet Active 5 MG PEG Daily 30 November 28, 2024 1:00am Trazodone 50 mg Tablet Discont inued 50 MG PEG Daily at bedtime as needed for Insomnia 30 November 28, 2024 1:00am December 03, 2024 2:32p m Sennosides (Senna) 8.8 mg/5 mL Syrup Discont inued 8.8 MG PEG Daily at bedtime 150 November 28, 2024 1:00am December 03, 2024 2:54p m Metoprolol Tartrate 50 mg Tablet Discont inued 50 MG PEG Twice daily 60 November 28, 2024 1:00am December 03, 2024 3:02p m Melatonin 5 mg Tablet Discont inued 10 MG PEG Daily at bedtime 60 November 28, 2024 1:00am December 03, 2024 2:32p m Pantoprazole 40 mg Tablet,Delay ed Release (Dr/Ec) Discont inued 40 MG PO As Directed as needed for Acid Reflux January 09, 2018 12:00a m Dece 2017 12:39 pm Metoprolol Tartrate 50 mg Tablet Discont inued 50 MG FEEDTU BE Twice daily January 09, 2018 12:00a m November 28, 2024 2:14p m Docusate Sodium (Colace) 100 mg Capsule Discont inued 100 MG PO Twice daily January 09, 2018 12:00a m March 15, 2019 9:32a m Apixaban (Eliquis) 5 mg Tablet Discont inued 5 MG PO Twice daily January 09, 2018 12:00a m Febru 2024 5:27p m Hyaluronic Na-Allantoin -Aloe (Radiaplexrx ) Gel Discont inued 1 APPLIC TOPICA L Three times daily January 09, 2018 12:00a m Decem 2017 12:39 pm Magic Mouthwash Discont inued 10 ML PO Four times daily as needed for painful swallowing February 21, 2018 12:00a m April 14, 2018 10:11 am Tamsulosin 0.4 mg Capsule Discont inued 0.4 MG PO Daily March 15, 2019 12:00a m Febru 2024 5:27p m Bimatoprost (Lumigan) 0.01 % Drops Discont inued 1 DROPS EYE-EDDIE TH Every evening March 15, 2019 12:00a m u 2024 5:27p m Acetaminophe n 325 mg capsule Discont inued 975 MG FEEDTU BE Three times daily as needed for pain ua 2024 1:00am November 28, 2024 2:14p m Atorvastatin 20 mg tablet Discont inued 20 MG FEEDTU BE Every evening ua 2024 1:00am November 28, 2024 2:14p m Guaifenesin 100 mg/5 mL liquid Discont inued 200 MG FEEDTU BE Every 4 hours as needed for congestion 2024 1:00am November 28, 2024 2:14p m Lidocaine (Aspercreme (Lidocaine)) 4 % adhesive patch,[facility] Discont inued 1 PATCH TOPICA L Every 12 hours as needed for pain ua 2024 1:00am November 28, 2024 2:14p m Melatonin 5 mg capsule Discont inued 5 MG FEEDTU BE Daily at bedtime ua 2024 1:00am November 28, 2024 2:14p m Polyethylene Glycol 3350 (Miralax) 17 gram powder in packet Discont inued 17 GM FEEDTU BE Daily 2024 1:00am November 28, 2024 2:14p m Sennosides (Senna) 8.6 mg capsule Discont inued 17.2 MG FEEDTU BE Daily at bedtime 2024 1:00am November 28, 2024 2:14p m Doxycycline Hyclate 100 mg capsule Discont inued 100 MG PO Twice daily 4 2024 1:00am November 28, 2024 2:14p m Docusate Sodium 50 mg/5 mL Liquid Discont inued 100 MG PO Twice daily 600 30 2024 1:00am November 28, 2024 2:14p m Finasteride 5 mg tablet Discont inued 5 MG PO .GTUBE 0 2024 1:04pm November 28, 2024 2:14p m FreeTextSi tablet once a day; Note: Source Status: Taking; Provider: Mona Templeton ( ) Ciprofloxaci n Hcl 250 mg tablet Discont inued 250 MG PO Twice daily March 01, 2024 9:55am Octob er 2023 10:53 am Sennosides (Senna) 8.8 mg/5 mL syrup Discont inued 8.8 MG PEG Daily at bedtime 150 December 03, 2024 2:53pm February 05, 2025 11:01 am Metoprolol Tartrate 25 mg tablet Active 25 MG PEG Twice daily 60 December 03, 2024 2:59pm Ciprofloxaci n Hcl 250 mg tablet Discont inued 250 MG PO Twice daily February 06, 2024 12:00a m March 01, 2024 9:55a m Rosuvastatin 10 mg tablet Discont inued 1 TAB PO Daily Octobe r 2023 12:00a m Febru [email or web address] 5:27p m FreeTextSi tablet Orally Once a day; Note: Source Status: Continue; Provider: Mona Templeton ( ) Finasteride 5 mg tablet Discont inued 5 MG PO .NG Octobe r 2023 12:00a m Febru dorothea 2024 1:05p m FreeTextSi tablet once a day; Note: Source Status: Taking; Provider: Mona Templeton ( ) Lisinopril 2.5 mg tablet Discont inued 1 TAB [facility] 12:00a m Febr2024 5:27p m FreeTextSi tablet Orally Once a day; Note: Source Status: Continue; Provider: Mona Templeton ( ) Clopidogrel 75 mg tablet Discont inued 75 MG FEEDTU BE Daily [facility] 2023 12:00a m November 28, 2024 2:14p m FreeTextSi tablet Orally Once a day; Note: Source Status: Taking; Provider: Mona Templeton ( ) Latanoprost 0.005 % drops Discont inued 1 DROPS OPHTHA LMIC Daily at bedtime [facility] 2023 12:00a m November 28, 2024 2:14p m FreeTextSi drop into affected eye in the evening Ophthalmic Once a day; Note: Source Status: Taking; Provider: Mona Templeton ( ) Meclizine 25 mg tablet Discont inued 25 MG PO Three times daily as needed for dizziness [facility] 20[facility] 12:00a m Febru 2024 5:27p m 1/2 - 1 tab po q8h prn vertigo Sennosides (Senna) 8.8 mg/5 mL syrup Active 8.8 MG PEG Daily at bedtime 150 30 February 05, 2025 11:01a m Immunizations Immunization Event Date Not Given Reason Dose Number Skein Tier Lot Number Vaccine Information Statement (VIS) Detail influenza, unspecified formulation June 26, 2018 Medical Equipment Device Date Implanted Device Details Bipolar femoral head outer component, hemiarthroplasty November 12, 2024 ERIN: [id number] Issuing Agency: [employer] Device Id: [id number] Expiration Date: 2034-05-15 Lot Number: [id number] Femoral head/stem prosthesis adaptor November 12, 2024 ERIN: [id number] Issuing Agency: [facility] Device Id: [id number] Expiration Date: 2033-10-24 Lot Number: [id number] Coated hip femur prosthesis, modular November 12, 2024 ERIN: [id number] Issuing Agency: [facility] Device Id: [id number] Expiration Date: 2033-03-09 Lot Number: [id number] Procedures Procedure Date Performed Status XR femur LT 2V* November 10, 2024 6:13pm compl eted XR pelvis 1-2V November 10, 2024 6:13pm compl eted XR pelvis 1-2V November 12, 2024 5:31pm compl eted Insertion of Feeding Device into Stomach, Percutaneous Approach November 10, 2024 active XR pelvis 1-2V December 07, 2024 8:07am complete d Relevant Diagnostic Tests and/or Laboratory Data Laboratory Results Test Date/Time Result Interpretation Reference Range Result Comment Performing Site Corrected White Blood Count November 16, 2024 6:30am 6.8 10*3/uL 4.1-10.5 [facility] [id number] [address] [id number] Corrected White Blood Count November 29, 2024 5:42am 4.7 10*3/uL 4.1-10.5 [facility] [id number] [address] [id number] Uncorrected WBC Count November 14, 2024 8:16am 6.9 10*3/uL 4.1-10.5 [facility] [id number] [address] [id number] Uncorrected WBC Count November 29, 2024 5:42am 4.7 10*3/uL 4.1-10.5 [facility] [id number] [address] [place], [place] [address] Red Blood Count November 16, 2024 6:30am 3.22 10*6/uL Below low normal 3.90-5.60 [facility] [id number] [address] [place] [address] Red Blood Count November 29, 2024 5:42am 3.24 10*6/uL Below low normal 3.90-5.60 [facility] [id number] [address] [facility] [address] Hemoglobin November 16, 2024 6:30am 10.1 g/dL Below low normal 13.0-17.0 [facility] [id number] [address] [place] [address] Hemoglobin November 29, 2024 5:42am 10.3 g/dL Below low normal 13.0-17.0 [facility] [id number] [address] [place] [address] Hematocrit November 16, 2024 6:30am 29.6 % Below low normal 38.8-50.0 [facility] [id number] [address] [place] [address] Hematocrit November 29, 2024 5:42am 30.2 % Below low normal 38.8-50.0 [facility] [id number] [address] [facility] [address] Mean Corpuscular Volume November 16, 2024 6:30am 92.1 fL 83.5-101 [facility] [id number] [address] [place] [address] Mean Corpuscular Volume November 29, 2024 5:42am 93.4 fL 83.5-101 [facility] [id number] [address] [place] [address] Mean Corpuscular Hemoglobin November 16, 2024 6:30am 31.5 pg 27.5-35.2 [facility] [id number] [address] [place] [address] Mean Corpuscular Hemoglobin November 29, 2024 5:42am 32.0 pg 27.5-35.2 [facility] [id number] [address] [place] [address] Mean Corpuscular Hemoglobin Concent November 16, 2024 6:30am 34.2 g/dL 32.5-35.6 [facility] [id number] [address] [place] [address] Mean Corpuscular Hemoglobin Concent November 29, 2024 5:42am 34.2 g/dL 32.5-35.6 [facility] [id number] [address] [place] [address] Red Cell Distribution Width November 16, 2024 6:30am 16.8 % Above high normal 12.0-14.8 [facility] [id number] [address] [facility] [address] Red Cell Distribution Width November 29, 2024 5:42am 17.1 % Above high normal 12.0-14.8 [facility] [id number] [address] [facility] [address] Platelet Count November 16, 2024 6:30am 153 10*3/uL 150-450 [facility] [id number] [address] [facility] [address] Platelet Count November 29, 2024 5:42am 262 10*3/uL 150-450 [facility] [id number] [address] [facility] [address] Mean Platelet Volume November 16, 2024 6:30am 8.8 fL 6.6-10.1 [facility] [id number] [address] [facility] [address] Mean Platelet Volume November 29, 2024 5:42am 8.4 fL 6.6-10.1 [facility] [id number] [address] [facility] [address] Monocyte Distribution Width November 10, 2024 5:36pm 20.62 % Above high normal 0.00-20.00 For adults in ED, MDW > 20.0 may be associated with a higher risk of sepsis during the first 12 hrs of hospital admission [facility] [id number] [address] [facility] [address] Neutrophils (%) (Auto) November 14, 2024 8:16am 61.8 % . [facility] [id number] [address] [facility] [address] Neutrophils (%) (Auto) November 29, 2024 5:42am 58.9 % . [facility] [id number] [address] [place] [address] Lymphocytes (%) (Auto) November 14, 2024 8:16am 17.5 % . [facility] [id number] [address] [facility] [facility] [id number] Lymphocytes (%) (Auto) November 29, 2024 5:42am 20.2 % . [facility] [id number] [address] [facility] 37141 Monocytes (%) (Auto) November 14, 2024 8:16am 17.2 % . [facility] [id number] [address] [facility] 97546 Monocytes (%) (Auto) November 29, 2024 5:42am 13.7 % . [facility] [id number] [address] [facility] 51348 Eosinophils (%) (Auto) November 14, 2024 8:16am 2.9 % . [facility] [id number] [address] [facility] 11874 Eosinophils (%) (Auto) November 29, 2024 5:42am 6.3 % . [facility] [id number] [address] [facility] 08926 Basophils (%) (Auto) November 14, 2024 8:16am 0.6 % . [facility] [id number] [address] [facility] 62737 Basophils (%) (Auto) November 29, 2024 5:42am 0.9 % . [facility] [id number] [address] [facility] 48119 Nucleated RBC Relative Count (auto) November 14, 2024 8:16am 0.2 /100{WBC} 0-0.5 [facility] [id number] [address] [facility] 87490 Nucleated RBC Relative Count (auto) November 29, 2024 5:42am 0.2 /100{WBC} 0-0.5 [facility] [id number] [address] [facility] 90619 Neutrophils # (Auto) November 14, 2024 8:16am 4.3 10*3/uL 1.8-7.7 [facility] [id number] [address] [facility] 70805 Neutrophils # (Auto) November 29, 2024 5:42am 2.8 10*3/uL 1.8-7.7 [facility] [id number] [address] [facility] 38592 Lymphocytes # (Auto) November 14, 2024 8:16am 1.2 10*3/uL 1.00-4.8 [facility] [id number] [address] [facility] 58273 Lymphocytes # (Auto) November 29, 2024 5:42am 1.0 10*3/uL 1.00-4.8 [facility] [id number] [address] [place], [place] [address] Monocytes # (Auto) November 14, 2024 8:16am 1.2 10*3/uL Above high normal 0.0-0.8 [facility] [id number] [address] [place] [id number] Monocytes # (Auto) November 29, 2024 5:42am 0.6 10*3/uL 0.0-0.8 [facility] [id number] [address] [place], [place] [address] Eosinophils # (Auto) November 14, 2024 8:16am 0.2 10*3/uL 0.0-0.45 [facility] [id number] [address] [place] [id number] Eosinophils # (Auto) November 29, 2024 5:42am 0.3 10*3/uL 0.0-0.45 [facility] [id number] [address] [place], [place] [address] Basophils # (Auto) November 14, 2024 8:16am 0.0 10*3/uL 0.0-0.2 [facility] [id number] [address] [place], [place] [address] Basophils # (Auto) November 29, 2024 5:42am 0.0 10*3/uL 0.0-0.2 [facility] [id number] [address] [place], [place] [address] Prothrombin Time November 10, 2024 5:36pm 11.7 s 9.0-12.9 A hematocrit value greater than 55% may lead to inaccurate results in coagulation testing. Patients having hematocrit values >55% require a special collection tube for coagulation studies. Please contact the laboratory at [phone] for redraw instructions. [facility] [id number] [address] [place], [place] [address] Prothromb Time International Ratio November 10, 2024 5:36pm 1.0 INR Therapeutic Range A) Pre- and Peroperative OAT started two weeks before surgery. NOT HIP SURGERY: 1.5 - 2.5 HIP SURGERY: 2 - 3B) Primary and secondary prevention of venous THROMBOSIS: 2 - 3C) Active venous thrombosis, pulmonary embolismand prevention of recurrent venous thrombosis: 2 - 3D) Prevention of arterial thromboembolismi ncluding patients with mechanical heart valves: 3 - 4.5 [facility] [id number] [address] [facility] 53748 Activated Partial Thromboplast Time November 10, 2024 5:36pm 28.5 s 25.1-36.5 A hematocrit value greater than 55% may lead to inaccurate results in coagulation testing. Patients having hematocrit values >55% require a special collection tube for coagulation studies. Please contact the laboratory at [phone] for redraw instructions. [facility] [id number] [address] [facility] 98806 Urine Color November 10, 2024 9:55pm Yellow Yellow [facility] [id number] [address] [facility] 72021 Urine Appearance November 10, 2024 9:55pm Clear Clear [facility] [id number] [address] [place] [address] 79879 Urine Specific [place] November 10, 2024 9:55pm 1.023 1.001-1.03 0 [facility] [id number] [address] [place] [address] 96104 Urine pH November 10, 2024 9:55pm 6.5 5.0-9.0 [facility] [id number] [address] [facility] 88624 Urine Leukocyte Esterase November 10, 2024 9:55pm Negative Negative [facility] [id number] [address] [place] [address] 46006 Urine Nitrite November 10, 2024 9:55pm Negative Negative [facility] [id number] [address] [facility] 33733 Urine Protein November 10, 2024 9:55pm Negative mg/dL Negative [facility] [id number] [address] [place] [address] 75791 Urine Glucose (UA) November 10, 2024 9:55pm Normal mg/dL Normal [facility] [id number] [address] [place] [address] 34135 Urine Ketones November 10, 2024 9:55pm Negative Negative [facility] [id number] [address] [place] [address] 60108 Urine Urobilinogen November 10, 2024 9:55pm 2 mg/dL Above high normal Normal [facility] [id number] [address] [facility] 70020 Urine Bilirubin November 10, 2024 9:55pm Negative Negative [facility] [id number] [address] [facility] 74711 Urine Occult Blood November 10, 2024 9:55pm Negative Negative [facility] [id number] [address] [facility] 81993 Glucose Level November 16, 2024 6:30am 110 mg/dL Above high normal 70-100 ADA recommended reference rangeRandom Glucose Reference Range is dependent on time and content of last meal. Glucose of more than 200 mg/dL in a nonstressed, ambulatory subject supports the diagnosis of Diabetes Mellitus. [facility] [id number] [address] [facility] 08383 Glucose Level November 29, 2024 5:42am 98 mg/dL 70-100 ADA recommended reference rangeRandom Glucose Reference Range is dependent on time and content of last meal. Glucose of more than 200 mg/dL in a nonstressed, ambulatory subject supports the diagnosis of Diabetes Mellitus. [facility] [id number] [address] [facility] 61846 Blood Urea Nitrogen November 16, 2024 6:30am 17 mg/dL 04-19 [facility] [id number] [address] [place], [place] [address] Blood Urea Nitrogen November 29, 2024 5:42am 19 mg/dL 04-19 [facility] [id number] [address] [facility] 77607 Creatinine November 16, 2024 6:30am 0.54 mg/dL Below low normal 0.70-1.30 [facility] [id number] [address] [facility] 55108 Creatinine November 29, 2024 5:42am 0.51 mg/dL Below low normal 0.70-1.30 [facility] [id number] [address] [facility] 43810 Estimated GFR (CKD-EPI) November 16, 2024 6:30am > 60.0 mL/Min [facility] [id number] [address] [facility] 18045 Estimated GFR (CKD-EPI) November 29, 2024 5:42am > 60.0 mL/Min [facility] [id number] [address] [place] [id number] Sodium Level November 16, 2024 6:30am 133 mmol/L Below low normal 136-145 [facility] [id number] [address] [facility] 05917 Sodium Level November 29, 2024 5:42am 132 mmol/L Below low normal 136-145 [facility] [id number] [address] [facility] 53356 Potassium Level November 16, 2024 6:30am 4.5 mmol/L 3.5-5.1 [facility] [id number] [address] [facility] 97012 Potassium Level November 29, 2024 5:42am 4.4 mmol/L 3.5-5.1 [facility] [id number] [address] [facility] 84742 Chloride Level November 16, 2024 6:30am 98 mmol/L 98-107 [facility] [id number] [address] [facility] 25189 Chloride Level November 29, 2024 5:42am 100 mmol/L 98-107 [facility] [id number] [address] [facility] 01565 Carbon Dioxide Level November 16, 2024 6:30am 30.4 mmol/L 21.0-31.0 [facility] [id number] [address] [facility] 55659 Carbon Dioxide Level November 29, 2024 5:42am 27.5 mmol/L 21.0-31.0 [facility] [id number] [address] [facility] 86455 Anion Gap November 16, 2024 6:30am 9.1 mEq/L 6.0-15.0 [facility] [id number] [address] [facility] 60971 Anion Gap November 29, 2024 5:42am 8.9 mEq/L 6.0-15.0 [facility] [id number] [address] [facility] 24121 Calcium Level November 16, 2024 6:30am 8.4 mg/dL Below low normal 8.6-10.3 [facility] [id number] [address] [facility] 62161 Calcium Level November 29, 2024 5:42am 8.3 mg/dL Below low normal 8.6-10.3 [facility] [id number] [address] [facility] 67760 Magnesium Level November 12, 2024 6:23am 1.8 mg/dL Below low normal 1.9-2.7 [facility] [id number] [address] [facility] 73991 Total Protein November 12, 2024 6:23am 6.5 g/dL 6.4-8.9 [facility] [id number] [address] [facility] 40950 Total Protein November 19, 2024 5:28am 5.6 g/dL Below low normal 6.4-8.9 [facility] [id number] [address] [facility] 86270 Albumin November 12, 2024 6:23am 3.1 g/dL Below low normal 3.5-5.7 [facility] [id number] [address] [facility] 05041 Albumin November 19, 2024 5:28am 2.6 g/dL Below low normal 3.5-5.7 [facility] [id number] [address] [facility] 27333 Globulin November 12, 2024 6:23am 3.4 g/dL [facility] [id number] [address] [facility] 95291 Globulin November 19, 2024 5:28am 3.0 g/dL [facility] [id number] [address] [facility] 75990 Albumin/Globul in Ratio November 12, 2024 6:23am 0.9 [facility] [id number] [address] [facility] 79304 Albumin/Globul in Ratio November 19, 2024 5:28am 0.9 [facility] [id number] [address] [facility] 78863 Total Bilirubin November 12, 2024 6:23am 1.1 mg/dL Above high normal 0.3-1.0 [facility] [id number] [address] [facility] 86919 Total Bilirubin November 19, 2024 5:28am 0.9 mg/dL 0.3-1.0 [facility] [id number] [address] [facility] 94360 Aspartate Amino Transf (AST/SGOT) November 12, 2024 6:23am 27 U/L 13-39 [facility] [id number] [address] [facility] 08577 Aspartate Amino Transf (AST/SGOT) November 19, 2024 5:28am 15 U/L 13-39 [facility] [id number] [address] [facility] 66035 Alanine Aminotransfera se (ALT/SGPT) November 12, 2024 6:23am 29 U/L 7-52 [facility] [id number] [address] [facility] 25609 Alanine Aminotransfera se (ALT/SGPT) November 19, 2024 5:28am 17 U/L 7-52 [facility] [id number] [address] [place] [address] 19171 Alkaline Phosphatase November 12, 2024 6:23am 83 U/L 34-104 [facility] [id number] [address] [place] [address] 03331 Alkaline Phosphatase November 19, 2024 5:28am 62 U/L 34-104 [facility] [id number] [address] [place] [address] 85934 Prealbumin November 19, 2024 5:28am 8.9 mg/dL Below low normal 17.0-34.0 [facility] [id number] [address] [place], [place] [address] Pharmacy Creatinine Clearance (Chem November 16, 2024 6:30am 65.55 [facility] [id number] [address] [place], [place] [address] Pharmacy Creatinine Clearance (Chem November 29, 2024 5:42am 63.54 [facility] [id number] [address] [place], [place] [address] Bedside Glucose November 18, 2024 12:40pm 109 mg/dL Random Glucose Reference Range is dependent on time and content of last meal. Glucose of more than 200 mg/dL in a nonstressed, ambulatory subject supports the diagnosis of Diabetes Mellitus. Point of Care testing Bedside Glucose November 30, 2024 12:52pm 89 mg/dL Random Glucose Reference Range is dependent on time and content of last meal. Glucose of more than 200 mg/dL in a nonstressed, ambulatory subject supports the diagnosis of Diabetes Mellitus. Point of Care testing Bedside Glucose Comment November 17, 2024 12:37pm Glu2: cleaned meter Point of Care testing Bedside Glucose Comment November 30, 2024 12:52pm Glu2: cleaned meter Point of Care testing Bedside Glucose #2 Comment November 12, 2024 11:53am Cleaned meter Point of Care testing Diagnostic Imaging Reports Author Torres Navarro [facility] Authored November 10, 2024 6:35pm Report Dictated Date/Time Dictated By Status Radiology Report November 10, 2024 6:35pm Torres Navarro DO completed [facility] [place] [address] [place] [address] XRay Report Signed Patient: Ron Arce MR#: [id number] : 1940 Acct:[id number] Age/Sex: 84 / M ADM Date: 5 Loc: ER Room: Type: [facility] ER Attending Dr: Copies to: Monty Rubio DO~ Ordering Provider: Monty Rubio DO Date of Service: 11/10/24 XR/XR pelvis 1-2V: Extremity Injury, Lower ([id number]) XR/XR femur LT 2V*: Extremity Injury, Lower ([id number]) XR/XR chest 1V: FEMUR FX Plain film chest Single view HISTORY: Fell 3 weeks ago. Diagnosis of left femur fracture today COMPARISON: None FINDINGS: SUPPORT DEVICES: Feeding tube in stomach. POSTSURGICAL CHANGES: CABG. Intact cardiac device. Cardiac valve replacement. Intact cardiac device. HEART: Cardiomegaly PULMONARY PAPO: Within normal limits MEDIASTINUM: Unremarkable LUNGS AND PLEURA: The right basilar parenchymal changes. LEFT basilar pleural- parenchymal changes. No pneumothorax. BONY STRUCTURES: Intact ADDITIONAL FINDINGS None XR/XR chest 1V IMPRESSION: The basilar pleural-parenchymal changes.. Cardiomegaly. Single view pelvis Displaced subcapital hip fracture on the left. The right hip arthroplasty and acetabular fixation hardware. There lumbar and SI joint degenerative changes. IMPRESSION: Displaced left subcapital hip fracture 2 views left femur Redemonstration of subcapital hip fracture. No additional fracture. No dislocation. IMPRESSION: No additional distal femur fracture. Impression dictated by: Torres Navarro M.D.11/10/2024 6:39 PM Dictation Location: RADIO-PC-20 Transcribed By: PWS 11/10/241838 Dictated By: Torres Navarro DO 11/10/241834 Signed By: <Electronically signed by Torres Navarro DO in OV> 11/10/241838 Author Torres Navarro [facility] Authored November 12, 2024 5:16pm Report Dictated Date/Time Dictated By Status Radiology Report November 12, 2024 5:16pm Torres Navarro DO completed [facility] [place] [address] XRay Report Signed Patient: Ron Arce MR#: [id number] : 1940 Acct:[id number] Age/Sex: 84 / M ADM Date: 5 Loc: Room: [address] [place] [address] Type: ADM IN Attending Dr: Rahul Barboza MD Copies to: DO Rahul Andersen MD~ Ordering Provider: Godwin Gordillo DO Date of Service: 11/12/24 XR/XR pelvis 1-2V: Hip Fracture Post op Single view of the pelvis plain film HISTORY: Postop left hip arthroplasty COMPARISON: 09/09/2025 ACUTE FINDINGS: None BONY ALIGNMENT: Adequate SOFT TISSUES: Right hip postsurgical change DEGENERATIVE CHANGE:Unremarkable INTRAPELVIC STRUCTURES: Unremarkable POSTSURGICAL CHANGES:Adequate hardware without complication remote right hip arthroplasty with acetabular fixation XR/XR pelvis 1-2V IMPRESSION:Uncomplicated left hip arthroplasty Impression dictated by: Torres Navarro M.D.11/12/2024 5:17 PM Dictation Location: RADIO-PC-20 Transcribed By: PWS 11/12/241716 Dictated By: Torres Navarro DO 11/12/241715 Signed By: <Electronically signed by Torres Navarro DO in OV> 11/12/241716 Author Kayden Mckeon [facility] Authored December 07, 2024 2:1 2pm Report Dictated Date/Time Dictated By Status Radiology Report December 07, 2024 2:12pm Kayden Mckeon Jr DO completed [facility] [place] [address] [place] [address] XRay Report Signed Patient: Ron Arce MR#: [id number] : 1940 Acct:[id number] Age/Sex: 84 / M ADM Date: 5 Loc: SOX Room: Type: [facility] Attending Dr: Godwin Gordillo DO Copies to: Godwin Gordillo DO~ Ordering Provider: Godwin Gordillo DO Date of Service: 12/07/24 XR/XR pelvis 1-2V: S72.002A - Fracture of unspecified part of neck of left f... 1 view pelvis CLINICAL HISTORY: Follow-up ORIF right femoral neck. COMPARISON: Pelvis 12/07/2024 FINDINGS: Bilateral hip prostheses are in place with right acetabular hardware similar configuration to the prior study without evidence of hardware complication. Degenerative changes are noted involving the visualized lower lumbar spine, SI joints and pubic symphysis. Bones are grossly demineralized. XR/XR pelvis 1-2V IMPRESSION: NO ACUTE HARDWARE COMPLICATION IS SEEN.. Impression dictated by: Maciel Mcdonald Jr.OJenniffer12/10/2024 9:25 AM Dictation Location: [place] [address] Transcribed By: [facility] 12/10/24 0925 Dictated By: Kayden Mckeon Jr, DO 12/07/24 1412 Signed By: <Electronically signed by Kayden Mckeon Jr, DO in OV> 12/10/24 09 Vital Signs Vital Reading Result Reference Range Collection Date/Time Height 72 [in_i] November 16, 2024 11:59am Weight 59.80 kg November 17, 2024 6:32am Body Temperature 98 [degF] 97.6-99.0 November 182024 12:40pm Heart Rate 69 /min 60-100 November 18, 2024 12:40pm Respiratory rate 18 /min 12-November 182024 12:40pm Oxygen saturation by Pulse oximetry 98 % 95-100 November 18, 2024 12:40pm BP Systolic 106 mm[Hg] 100-140 November 18, 2024 12:40pm BP Diastolic 77 mm[Hg] 60-100 November 18, 2024 12:40pm Inhaled oxygen flow rate 1 L/min [facility] 2024 12:40pm Height 72 [in_i] November 28, 2024 12:12pm Weight 62.90 kg November 30, 2024 7:26am Body Temperature 98 [degF] 97.6-99.0 November 30, 2024 7:27am Heart Rate 89 /min 60-100 November 30, 2024 7:27am Respiratory rate 14 /min 12-November 30, 2024 7:27am Oxygen saturation by Pulse oximetry 97 % 95-100 November 30, 2024 7:27 am BP Systolic 107 mm[Hg] 100-140 November 30, 2024 7:27am BP Diastolic 72 mm[Hg] 60-100 November 30, 2024 7:27am Inhaled oxygen concentration 97 % November 22, 2024 3:18am Inhaled oxygen flow rate 1 L/min [facility] 2024 1:00am Height 72 [in_i] December 03 2:26pm Weight 65.77 kg December 03 2:26pm Heart Rate 83 /min 60-100 December 03 2:26pm BP Systolic 91 mm[Hg] 100-140 December 03 2:26pm BP Diastolic 62 mm[Hg] 60-100 December 03 2:26pm BMI (Body Mass Index) 19.6 kg/m2 December 03, 2024 2:26pm Height 72 [in_i] February 05, 2025 10:31am Weight 70.08 kg February 05, 2025 10:31am Heart Rate 72 /min 60-100 February 05, 2025 10:31am BP Systolic 112 mm[Hg] 100-140 February 05, 2025 10:31am BP Diastolic 71 mm[Hg] 60-100 February 05, 2025 10:31am BMI (Body Mass Index) 20.9 kg/m2 February 052024 10:31am Advance Directives Advance Directive Response Recorded Date/ Time Advance Directives No December 07, 2 025 8:07am Insurance Providers Guarantor Ron Arce Address [address] [place] [phone] Contact Info. Home Phone: Payer Policy Id Coverage Id Subscriber's Name Subscriber Id Effective Date Expiration Date Medicare [id number] Ron Arce [id number] Medicare-IP Part A Only [id number] Ron Arce [id number] Encounters Encounter Location(s) Arrival/Admit Date Discharge/Depart Date Provider(s) Discharged Inpatient [facility] November 10, 2024 8:04pm November 18, 2024 2:00pm Rahul Barboza MD Non-patient / Non-visit [facility] Physician [facility] November 11, 2024 6:52pm Godwin Gordillo DO Non-patient / Non-visit [facility] November 13, 2024 2:33pm Kayden Odom MD Discharged Inpatient [facility] November 18, 2024 2:05pm November 30, 2024 1:15pm Kacy Jane MD Non-patient / Non-visit [facility] November 19, 2024 11:11am Kacy Jane MD Non-patient / Non-visit [facility] November 26, 2024 3:53pm Kacy Jane MD Non-patient / Non-visit [facility] Physician [facility] November 27, 2024 12:26pm Nica Martinez DO Non-patient / Non-visit [facility] Physician [facility] November 29, 2024 2:41pm Magy Olvrea CMA Departed Physician/Provi navneet Office Visit [facility] December 03, 2024 2:19pm December 03, 2024 3:02pm Yokasta Dunn MD Departed Clinical [facility] December 07, 2024 8:07am December 07, 2024 8:08am Godwin Gordillo DO Departed Physician/Provi navneet Office Visit [facility] December 07, 2024 9:35am December 07, 2024 10:26am Godwin Gordillo DO Departed Physician/Provi navneet Office Visit [facility] Physician [facility] February 05, 2025 10:22am February 05, 2025 11:11am Yokasta Dunn MD Recent Diagnosis Onset Date Admit Date History of head and neck cancer November 10, 2024 7:04pm Pathological fracture, left femur, initial encounter for fracture November 10, 2024 7:04pm Pre-op evaluation November 10, 2024 7:04pm Closed displaced fracture of left femoral neck November 10, 2024 7:04pm Dysphagia November 10 025 7:04pm Mild left ventricular systolic dysfunction November 10, 2024 7:04pm Permanent atrial fibrillation Fe bruary 2024 7:04pm S/P CABG x 3 November 10 2 025 7:04pm Severe protein-calorie malnutrition November 10, 2024 7:04pm Sick sinus syndrome October 7:04pm Status post placement of cardiac pacemaker November 10, 2024 7:04pm Closed displaced fracture of left femoral neck November 18, 2024 1:05pm Counseling regarding advance care planning and goals of care November 18, 2024 1:05pm Dysphagia November 18 025 1:05pm Impaired mobility and activi ties of daily living November 18, 2024 1:05pm Mild left ventricular systolic dysfunction November 18, 2024 1:05pm Permanent atrial fibrillation Fe bruary 2024 1:05pm S/P CABG x 3 November 18 2 025 1:05pm Severe protein-calorie malnutrition November 18, 2024 1:05pm Sick sinus syndrome October 1:05pm Status post placement of cardiac pacemaker November 18, 2024 1:05pm Closed displaced fracture of left femoral neck December 03, 2024 2:19pm Dysphagia December 03, 2024 2:19pm Permanent atrial fibrillation [facility] 2024 2:19pm Severe protein-calorie malnutrition December 03, 2024 2:19pm Sick sinus syndrome December 03, 2024 2:19pm Closed displaced fracture of left femoral neck December 07, 2024 9:35am History of total right hip arthroplasty December 07, 2024 9:35am Swallowing disorder February 05 10:22am Functional Status Observation Response Date Recorded Dressing Patient at Baseline November 30 2 025 1:50pm Eating Patient at Baseline November 30 025 1:50pm Bathing Patient at Baseline November 30 025 1:50pm Dressing Patient is Progressing Toward Ba seline November 18, 2024 1:58pm Eating Patient Not at Baseline November 18, 2024 1:58pm Bathing Patient is Progressing Toward Ba seline November 18, 2024 1:58pm Disability Status Patient is Progressing Toward Baseline November 18, 2024 1:58pm Functional Status Assessments Mental Status Observation Response Date Recorded Cognitive Status Patient at Baseline November 30, 2024 1:50pm Cognitive Status Patient at Baseline November 182024 1:58pm Cognitive/Mental Status Assessments Assessments Diagnosis Onset Date Resolution Status Admit Date History of head and neck cancer acute November 10 025 7:04pm Pathological fracture, left femur, initial encounter for fracture acute November 10 025 7:04pm Pre-op evaluation resolved 2024 7:04pm Closed displaced fracture of left femoral neck inactive November 10, 2024 7:04pm Dysphagia inactive November 10, 2024 7:04pm Mild left ventricular systolic dysfunction inactive November 102024 7:04pm Permanent atrial fibrillation inactive November 10, 025 7:04pm S/P CABG x 3 inactive October 7:04pm Severe protein-calorie malnutrition inactive November 10 025 7:04pm Sick sinus syndrome inactive 2024 7:04pm Status post placement of cardiac pacemaker inactive November 10, 2024 7:04pm Closed displaced fracture of left femoral neck inactive November 18, 2024 1:05pm Counseling regarding advance care planning and goals of care inactive November 18 025 1:05pm Dysphagia inactive November 18, 2024 1:05pm Impaired mobility and activities of daily living inactive 2024 1:05pm Mild left ventricular systolic dysfunction inactive November 182024 1:05pm Permanent atrial fibrillation inactive November 18 025 1:05pm S/P CABG x 3 inactive October 1:05pm Severe protein-calorie malnutrition inactive November 18 025 1:05pm Sick sinus syndrome inactive 2024 1:05pm Status post placement of cardiac pacemaker inactive November 18, 2024 1:05pm Closed displaced fracture of left femoral neck inactive December 03 2:19pm Dysphagia inactive December 03 2:19pm Permanent atrial fibrillation inactive December 03, 2024 2:19pm Severe protein-calorie malnutrition inactive December 03, 2024 2:19pm Sick sinus syndrome inactive December 03, 2024 2:19pm Closed displaced fracture of left femoral neck inactive December 07 9:35am History of total right hip arthroplasty noneactive December 07, 2024 9:35am Swallowing disorder acute January 242024 10:22am Plan of Treatment Author Yokasta Dunn [facility] Authored December 05, 2024 9:4 3am Called HH. They said that ST doesn't do vitalstim at the house. Printed order for outpatient ST. Informed pt and that they would [facility]. They didn't want to go out that far and had that treatment in the past at [facility]. Order faxed to [facility]. Pt and understand that services will be cancelled if he start outpatient therapy and they are in agreement w that. as above. Signed order for tube feeds/supplies. followup w ortho as scheduled. followup w cardiology as scheduled. BP low - decrease metoprolol back to 25mg bid. Author Godwin Gordillo [facility] Authored December 07, 2024 10: 24am Ron is here 3 weeks s/p le ft hip hemiarthroplasty for femoral neck fracture. He is doing well. He is recovering nicely and is ambulating well with and without walker today. He denies any issues with left hip. He is on Plavix for anticoagulation due to cardiovascular issues. He is using a feeding tube and has gained 4 pounds. He continues to work on speech and swallowing. Would allow to increase activities as tolerated. Discussed outpatient physical therapy which they can schedule whenever they get something sorted out. I will plan to see him back in 3-month anniversary X-rays were reviewed with patient in detail. Patient instructed to continue to work on nutrition and increasing his weight. Patient has an upcoming knee injection and if he is feeling better he can call for an outpatient therapy order. He will now work on home exercises. Patient can progress activity as tolerated regarding the hip. Note scribed by LACIE Pizarro, reviewed and amended by Godwin Gordillo D.O. Future Tests Future scheduled test information is unavailable Pending Tests Pending diagnostic test information is unavailable Future Visits Future appointment information is unavailable Referrals to Other Providers Reason for Referral Referral Start Date Provider Provider Contact Information Provider Address Call to schedule follow up appointment with PCP after discharge Yokasta Dunn MD Work Phone: [address] [facility] [place] [address] Follow up with rehab physician as needed Kayden Odom MD Work Phone: [address] [place] [address], [address] [facility] [address] Orthopedic surgeon Godwin cole DO Work Phone: [address] [facility] [phone] Follow-up with Orthopedic Surgery after discharge from Rehab Godwin Gordillo DO Work Phone: [phone] [facility] [phone] Future Procedures Procedure Name Ordered Date Scheduled Date Initiate Home Health November 29, 2024 5:14pm 1 Da ys DME Home Medical Equipment November 29, 2024 12:57 pm 1 Days Admit Status Order November 18, 2024 2:59pm Fe bruary 2024 3:00pm Consult to Adult Hospitalist November 18, 2024 2:59pm November 18, 2024 3:00pm Discharge Order November 28, 2024 2:14pm November 2:14pm Consult to Palliative Care Doctor November 26, 2024 1:27pm November 26, 2024 1:27pm Speech Therapy Modified Vini um Swallow November 24, 2024 12:26pm November 24, 2024 12:30pm Feeding Strategies/Supervision/Equipme nt/Location November 14, 2024 1:09pm November 14, 2024 1:09pm Admit Status Order November 10, 2024 8:04pm Fe bruary 2024 8:04pm Discharge Order November 18, 2024 1:05pm Chinou dorothea 2024 1:05pm Consult to General Surgery November 14, 2024 2 :07pm November 14, 2024 2:07pm Consult to Orthopedic Surgery November 10 8:20pm November 10, 2024 8:20pm Consult to Physiatry November 13, 2024 8:54am November 13, 2024 8:54am Speech Therapy Modified Vini um Swallow November 13, 2024 12:09pm November 13, 2024 12:15p m [place] barium swallow modified February 05, 2025 11:08a m Future Medications Future medication information is unavailable Patient Instructions Instruction Admit Date How to give a tube feeding Percutaneous endoscopic gastrostomy (PEG) - Discharge instructions Enteral (tube) feeding November 18, 2024 1:05pm Goals Acute Goals Author Authored Date Able to achieve maximum mobi lity level [facility] November 30, 2024 1:53pm Understand management strate gies [facility] November 30, 2024 1:53pm Skin integrity intact [facility] November 30, 2024 1:53pm Fall Prevention 2022 [facility] November 30, 2024 1:53pm Exhibit optimal tissue perfu nito * Exhibits adequate oxygenation and ventilation * Exhibits adequate cardiac output * Regains stable cardiac rhythm * Maintains optimal activity level * Maintains balanced intake and output [facility] November 30, 2024 1:53pm Maintain/increase activity levels * Understands factors that may lead to activity intolerance * Helps perform self care activities * Maintains maximum range of motion * Increase/regain muscle mass and strength * Maintains VS WNL during activity * Maintain intact skin integrity Updated: 11/08/2022 [facility] November 30, 2024 1:53pm Exhibit optimal tissue perfu nito * Exhibits adequate oxygenation and ventilation * Exhibits adequate cardiac output * Regains stable cardiac rhythm * Maintains optimal activity level * Maintains balanced intake and output [facility] November 18, 2024 2:01pm Skin integrity intact [facility] November 18, 2024 2:01pm Maintain/increase activity levels * Understands factors that may lead to activity intolerance * Helps perform self care activities * Maintains maximum range of motion * Increase/regain muscle mass and strength * Maintains VS WNL during activity * Maintain intact skin integrity Updated: 11/08/2022 [facility] November 18, 2024 2:01pm Fall Prevention 2022 [facility] November 18, 2024 2:01pm Experience reduced anxiety * Identifies current stressors * Develops effective coping behaviors * Uses support services as appropriate [facility] November 18, 2024 2:01pm Remain free of complications [facility] November 18, 2024 2:01pm Understand preop/postop care/sensations * Verbalizes understanding of surgical procedure * Verbalizes understanding of sensations following surgery * Verbalizes understanding of post-op treatment plan [facility] November 18, 2024 2:01pm Report pain at tolerable lev el * Uses pain scale appropriately * Identify options for pain control - Analgesics - Narcotics - Non-medication measures [facility] November 18, 2024 2:01pm Absence of imbalanced fluid volume s/s [facility] November 16, 2024 5:23pm Absence of physical injury [facility] November 18, 2024 2:01pm Absence of surgical site infection [facility] November 18, 2024 2:01pm Absence of new skin breakdow n [facility] November 18, 2024 2:01pm Wound healing [facility] November 18, 2024 2:01pm Experience reduced anxiety * Identifies current stressors * Develops effective coping behaviors * Uses support services as appropriate [facility] November 18, 2024 2:01pm Remain free of complications [facility] November 18, 2024 2:01pm Understand preop/postop care/sensations * Verbalizes understanding of surgical procedure * Verbalizes understanding of sensations following surgery * Verbalizes understanding of post-op treatment plan [facility] November 16, 2024 5:32pm Report pain at tolerable lev el * Uses pain scale appropriately * Identify options for pain control - Analgesics - Narcotics - Non-medication measures [facility] November 18, 2024 2:01pm Absence of imbalanced fluid volume s/s [facility] November 18, 2024 2:01pm Absence of physical injury [facility] November 18, 2024 2:01pm Absence of surgical site infection [facility] November 18, 2024 2:01pm
--- OUTSIDE RECORDS SUMMARY | 2025-02-19 23:59 | XMS_ITS | Continuity of Care Document ---
Author Organization [facility] Address Unknown Care Team Providers Care Domestic Maid Name Role Phone MYLENE GUADALUPE Primary Care Physician [phone] [id number] Date(s): 02/19/25 - 02/19/25 [facility] [address] [place] [address]- Discharge Disposition: Home (Routine DC) Attending Physician: MYLENE GUADALUPE MD Admitting Physician: MYLENE GUADALUPE MD Referring Physician: MYLENE GUADALUPE MD Encounter Type: Outpatient Allergies, Adverse Reactions, Alerts Substance Criticality Severity Reaction Reaction Severity Status ciprofloxacin Active Allergy to penicillin Active Assessment and Plan Future Appointments Appointment Date:03/19/2025 01:15:00 PM Scheduled Provider:Ric Martinez PA-C Location:[facility] Appointment Type:Cardiology Follow Up (FT) Appointment Date:06/06/2025 09:00:00 AM Scheduled Provider: Location:FT.CARDIO Appointment Type:NCV Pacemaker (FT) Immunizations Given and Recorded Vaccine Date Status Refusal Reason influenza virus vaccine, inactivated 07/23/22 Philip rded influenza virus vaccine, inactivated 06/15/21 Philip rded influenza virus vaccine, inactivated 06/21/19 Philip rded influenza virus vaccine, inactivated 06/26/18 Philip rded influenza virus vaccine, inactivated 06/24/17 Philip rded influenza virus vaccine, inactivated 09/08/16 Philip rded influenza virus vaccine, inactivated 08/04/15 Philip rded SARSCoV2 mRNA(xiisuhsbk-swhc-pzwxga) vac 02/26/22 Recorded SARS-CoV-2 (COVID-19) mRNA BNT-162b2 vax 1 08/10/21 Recorded SARS-CoV-2 (COVID-19) mRNA BNT-162b2 vax 2 11/18/20 Recorded SARS-CoV-2 (COVID-19) mRNA BNT-162b2 vax 3 10/28/20 Recorded pneumococcal 23-valent vaccine 06/26/19 Recorded pneumococcal 23-valent vaccine 06/21/19 Recorded pneumococcal 23-valent vaccine 06/26/16 Recorded pneumococcal 13-valent vaccine 06/24/17 Recorded pneumococcal 13-valent vaccine 05/27/17 Recorded zoster vaccine live 02/24/15 Recorded 1Result Comment: 2022-11-23: [id number] 2Result Comment: 2022-11-23: [id number] 3Result Comment: 2022-11-23: [id number] Medications clopidogrel 75 mg Tab 75 mg = 1 tab(s), Oral, Daily, # 90 tab(s), Refills(s) 1, Pharmacy: [facility]/pharmacy #[id number], 182, cm, 07/11/24 14:21:00 EDT, Height/Length Dosing, 72.8, kg, 07/11/24 14:21:00 EDT, Weight Dosing Start Date: 07/13/24 Status: Ordered Quantity: 90.0 Unit: tab(s) Repeat number: 2 finasteride 5 mg Tab 5 mg = 1 tab(s), Oral, Daily, # 30 tab(s), Refills(s) 0 Start Date: 01/06/24 Status: Ordered Quantity: 30.0 Unit: tab(s) Repeat number: 1 Flomax 0.4 mg Cap 0.4 mg = 1 cap(s), Oral, Daily, # 90 cap(s), Refills(s) 3, Pharmacy: [facility]/pharmacy #[id number], 182, cm, 04/21/23 14:33:00 EDT, Height/Length Dosing, 72.3, kg, 04/21/23 14:33:00 EDT, Weight Dosing Start Date: 06/09/23 Status: Ordered Quantity: 90.0 Unit: cap(s) Repeat number: 4 latanoprost Opth 0.005% Jo Ann 1 drop(s), Eye-Both, Once a day (at bedtime), Refill(s) 0 Start Date: 05/26/22 Status: Ordered Repeat number: 1 lisinopril 2.5 mg Tab 2.5 mg = 1 tab(s), Oral, Daily, # 30 tab(s), Refills(s) 5, [id number], cm, 01/06/24 10:07:00 EDT, Height/Length Dosing, 74, kg, 01/06/24 10:07:00 EDT, Weight Dosing Start Date: 07/03/24 Status: Ordered Quantity: 30.0 Unit: tab(s) Repeat number: 6 Lopressor 25 mg oral tablet 25 mg = 1 tab(s), Oral, BID, # 180 tab(s), Refills(s) 3, [id number] 182, cm, 01/06/24 10:07:00 EDT, Height/Length Dosing, 74, kg, 01/06/24 10:07:00 EDT, Weight Dosing Start Date: 01/06/24 Status: Ordered Quantity: 180.0 Unit: tab(s) Repeat number: 4 rosuvastatin 10 mg Tab 10 mg = 1 tab(s), Oral, Daily, # 90 tab(s), Refills(s) 3, [id number] 182, cm, 12/20/24 14:21:00 EDT, Height/Length Dosing, 67.6, kg, 12/20/24 14:21:00 EDT, Weight Dosing Start Date: 01/18/25 Status: Ordered Quantity: 90.0 Unit: tab(s) Repeat number: 4 Indications: Atherosclerotic heart disease of [place] coronary artery without angina pectoris; Problem List Condition Confirmation Course Effective Dates Status H ealth Status Informant Atrial fibrillation Confirmed Active 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 Pacemaker Confirmed Active Coronary artery disease Confirmed Active Urinary hesitancy Confirmed Active Difficulty swallowing Confirmed Active Gross hematuria Confirmed Active Chronic GERD Confirmed Active Heartburn Confirmed Active Incomplete bladder emptying Confirmed Active Kidney disease Confirmed Active Right renal stone Confirmed Active Bladder cancer Confirmed Active Bladder mass Confirmed Active Nocturia Confirmed Active PAF (paroxysmal atrial fibrillation) Confirmed Active Weak urine stream Confirmed Active Elevated PSA Confirmed Active Severe mitral regurgitation Confirmed Active Severe tricuspid regurgitation Confirmed Active SSS (sick sinus syndrome) Confirmed Active Bladder stones Confirmed Active UTI symptoms Confirmed Active Procedures Procedure Date Related Diagnosis Body Site Status Biopsy of bladder 10/08/22 Complet ed TURP - Transurethral resecti on of prostate 10/08/22 Completed Cardiac catheterization, left heart 05/27/22 Completed Cardiac catheterization, left heart 05/27/22 Completed EGD - Esophagogastroduodenoscopy 03/30/22 Completed Cystoscopy 01/26/22 Completed Transrectal biopsy of prosta te using ultrasound guidance 12/02/10 Completed Abdominal hernia 1 Comple bryant Cholecystectomy Completed Hip replacement Completed Insertion of cardiac pacemaker Completed Repair of femoral hernia wit h groin incision Completed Tonsillectomy Completed 1x4 Social History Social History Type Response Smoking Status Never (less than 100 in lifetime); Concerns about tobacco use in household: No entered on: 12/20/24 Sex Male Sex Representation Male (finding) Patient Care team information Care Team Personnel Name: MYLENE GUADALUPE MD Position: FT Physician Member Role: Primary Care Physician Address: [address] [place] [address] Telecom: Care Team Related Persons Name: MINH TOLEDO Name: MINH TOLEDO Name: MINH TOLEDO Name: MINH TOLEDO Name: MINH TOLEDO Name: MINH TOLEDO Insurance Providers Guarantor name: BRAVO TOLEDO Health Plan Information #: 1 Payer: GINO Payer Identifier: [id number] Member Number: [id number] Group Number: [id number] Subscriber Identifier: [id number] Relationship to Subscriber: Self Coverage Type: MEDICARE Coverage Verification Date: 25 Telecom: NA Address: Health Plan Information #: 2 Payer: NA Payer Identifier: [id number] Member Number: [id number] Group Number: NA Subscriber Identifier: [id number] Relationship to Subscriber: Self Coverage Type: PRIVATE HEALTH INSURANCE Coverage Verification Date: 25 Telecom: Address:
--- OUTSIDE RECORDS SUMMARY | 2025-02-20 09:35 | XMS_ITS | Clinical Summary ---
Author Organization [facility] Healthcare Address [address] [place] [address] Care Team Providers Care [employer] Developer Name Role Phone Yokasta Dunn MD Primary Care Provider [phone] Allergies Active Allergy Reactions Criticality Noted Date Comments Ciprofloxacin Hcl 05/10/2022 Gabapentin 02/06/2024 Other Reaction(s): Unknown Reaction Penicillins GI intolerance,Hives 01/01/2011 Other Reaction(s): Other (See Comments), Unknown As a child Medications aspirin 325 MG tablet Take 325 mg by mouth in the morning. Active atorvastatin (Lipitor) 80 MG tablet Take 80 mg by mouth in the morning. 2 Active clopidogrel (Plavix) 75 MG tablet Take 75 mg by mouth in the morning. 3 Active finasteride (Proscar) 5 MG tablet Take 5 mg by mouth in the morning. 3 Active furosemide (Lasix) 20 MG tablet Take 1 tablet by mouth every other day. 2 Active latanoprost (Xalatan) 0.005 % ophthalmic solution INSTILL 1 DROP IN EACH EYE AT BEDTIME Active lisinopril 2.5 MG tablet TAKE 1 TABLET BY NASOGASTRIC TUBE ONCE A DAY Active metoprolol tartrate (Lopressor) 25 MG tablet Take 25 mg by mouth in the morning and 25 mg in the evening. 2 Active omeprazole (PriLOSEC) [address] capsule Take 40 mg by mouth in the morning. Take before meals. Active rosuvastatin (Crestor) 10 MG tablet Take 10 mg by mouth. 3 Active simvastatin (Zocor) 40 MG tablet Take 40 mg by mouth at bedtime. Active tamsulosin (Flomax) 0.4 MG 24 hr capsule Take 1 capsule by mouth in the morning. Active atorvastatin (Lipitor) 20 MG tablet TAKE 1 TABLET VIA PEG TUBE EVERY EVENING FOR 30 DAYS Active Active Problems No known active problems Encounters Date Type Department Care Team Description 12/20/2024 1:00 PM EDT Office Visit [facility] [address] [place] [id number] Shade Jha DO Localized osteoarthritis of left knee (Primary Dx) 12/20/2024 11:20 AM EDT Ancillary Procedure [facility] [address] [place] [address] 12/20/2024 Travel from Last 3 Months Family History Medical History Relation Name Comments Mental illness Father Relation Name Status Comments Father Mother Social History Tobacco Use Types Packs/Day Years Used Date Smoking Tobacco: Never Smokeless Tobacco: Never Tobacco Cessation:Counseling Given: Not Answered Alcohol Use Standard Drinks/Week Comments Never 0 (1 standard drink = 0.6 oz pure alcohol) caffeine 1-2 cups/day; coffee/tea Sex and Gender Information Value Date Recorded Sex Assigned at Not on file Legal Sex Male 8:34 PM EDT Gender Identity Not on file Sexual Orientation Not on file Last Filed Vital Signs Vital Sign Reading Time Taken Comments Blood Pressure 122/82 10/30/2019 12:00 PM EST Pulse - - Temperature 36.3 C (97.4 F) 05/10/2024 11:04 AM EDT Respiratory Rate - - Oxygen Saturation - - Inhaled Oxygen Concentration - - Weight 66.7 kg (147 lb) 12/20/2024 1:01 PM EDT Height 180.3 cm (5' 11 ) 12/20/2024 1:01 PM EDT Body Mass Index 20.5 12/20/2024 1:01 PM EDT Plan of Treatment Upcoming Encounters Date Type Department Care Team (Late st Contact Info) Description 03/13/2025 10:15 AM EDT Office Visit [facility] [address] [place] [phone] Lazaro Pineda DO [address] [place] [address] Health Maintenance Due Date Last Done Comments Pneumococcal Vaccine: 65+ Years Completed 06/26/2019, 06/21/2019, 06/24/2017, Additional history exists Influenza Vaccine Completed 07/21/2024, , 07/23/2022, Additional history exists Procedures Procedure Name Priority Date/Time Associated Diagnosis Comments XR KNEE 3 VIEWS LEFT Routine 12/20/2024 11:19 AM EDT Localized osteoarthritis of left knee from Last 3 Months Results * XR knee 3 views left (12/20/2024 11:19 AM EDT) Anatomical Region Laterality Modality Lower Extremities, Knee Left [facility] Imaging Narrative 12/20/2024 1:27 PM EDT Imaging Result: Multiple weightbearing views (AP, Lateral and sunrise) are reviewed for the permanent PACS record. 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 No fracture, dislocation, tumor or infection seen. Images are reviewed with the patient at length. Shade Jha DO IMG XR PROCEDURES Final Resu lt from Last 3 Months Insurance MEDICARE [facility] Care Teams [employer] Developer Relationship Specialty Start Date End Date Yokasta Dunn MD PCP - General Family Medicine 07/20/23
--- OUTSIDE RECORDS SUMMARY | 2025-02-20 09:35 | XMS_ITS | Referral Summary ---
Author Organization [facility] Address [address] [place] [address] Care Team Providers Care Tassel Snipper Name Role Phone Blayne Santiago DO Primary Care Provider [phone] Allergies Active Allergy Reactions Criticality Noted Date Comments Ciprofloxacin Hcl 05/10/2022 Penicillins 05/10/2022 Medications Medication Sig Dispensed Refills Start Date End Date Status furosemide (Lasix) 20 mg tablet Take 1 tablet by mouth. Active metoprolol tartrate (Lopressor) 50 mg tablet Take 1.5 tablets by mouth in the morning and at bedtime. Active omeprazole (PriLOSEC) [address] capsule Take 40 mg by mouth before breakfast. Do not crush or chew. Active Active Problems Problem Noted Date Diagnosed Date Abnormal gait 05/10/2022 Anemia 05/10/2022 A-fib 05/10/2022 Atrioventricular block 05/10/2022 Cardiac pacemaker in situ 05/10/2022 Closed fracture of neck of femur 05/10/2022 CAD (coronary artery disease) 05/10/2022 Crohn's disease 05/10/2022 Essential hypertension 05/10/2022 Cardiovascular disease 05/10/2022 Hyperlipemia 05/10/2022 Paroxysmal ventricular tachycardia 05/10/2022 Seizure disorder 05/10/2022 Severe mitral valve regurgitation 05/10/2022 Syncope and collapse 05/10/2022 Social History Tobacco Use Types Packs/Day Years Used Date Smoking Tobacco: Never Assessed [place] Safety & Environment Answer Date Rec orded Fear of Current or Ex-Partner Not on file Emotionally Abused Not on file 11/17/2023 Physically Abused Not on file 11/17/2023 Sexually Abused Not on file 11/17/2023 Physically or Sexually Abused Not on file Sex and Gender Information Value Date Recorded Sex Assigned at Not on file Gender Identity Not on file Sexual Orientation Not on file Last Filed Vital Signs Vital Sign Reading Time Taken Comments Blood Pressure 121/78 05/05/2022 11:07 AM EDT Pulse 85 02/05/2022 9:17 AM EDT Temperature - - Respiratory Rate - - Oxygen Saturation 97% 05/05/2022 11:07 AM EDT Inhaled Oxygen Concentration - - Weight 76.2 kg (168 lb) 05/05/2022 11:07 AM EDT Height 189.2 cm (6' 2.5 ) 05/05/2022 9:57 AM EDT Body Mass Index 21.28 05/05/2022 9:57 AM EDT Plan of Treatment Not on file Advance Directives Documents on File Type Date Recorded Patient Dish Carrier Expl anation Power of Services Delivery Driver 01/25/2023 12:27 PM POA Care Teams Tassel Snipper Relationship Specialty Start Date End Date Blayne Santiago DO [address] [place] [address] PCP - General 05/13/22
--- OUTSIDE RECORDS SUMMARY | 2025-02-20 09:35 | XMS_ITS | Encounter Summary ---
Author Organization [facility] Address [address] [place] [address] Phone Care Team Providers Care Portrait Consultant Name Role Phone Yokasta Dunn MD Primary Care Provider [phone] Encounter Details Date Type Department Care Team (Late st Contact Info) Description 01/11/2024 Scanned Document [facility] [address] [place] [address] [place] [address] [place], [place] [id number] Social History Tobacco Use Types Packs/Day Years Used Date Smoking Tobacco: Former Cigarettes Passive Smoke Exposure: Never Smokeless Tobacco: Never PHQ-2 Answer Date Recorded Patient Health Questionnaire-2 Score 0 08/23/2023 Sex and Gender Information Value Date Recorded Sex Assigned at Not on file Legal Sex Male 3:58 PM EST Gender Identity Not on file Sexual Orientation Not on file documented as of this encounter Plan of Treatment Upcoming Encounters Date Type Department Care Team (Late st Contact Info) Description 08/06/2025 10:15 AM EST Office Visit [facility] [address] [place] [phone] [place] [address] [place] [address] documented as of this encounter Visit Diagnoses Not on filedocumented in this encounter Additional Health Concerns Assessment Noted Time A fall risk assessment has been complete d for the patient 08/23/2023 11:10 AM EST documented as of this encounter Care Teams Portrait Consultant Relationship Specialty Start Date End Date Yokasta Dunn MD [address] [place] [address] [place] [id number] PCP - General 12/22/17 documented as of this encounter
--- OUTSIDE RECORDS SUMMARY | 2025-02-20 09:35 | XMS_ITS | Encounter Summary ---
Author Organization [facility] Address [address] [place] [address] Phone Care Team Providers Care Manager Of Customer Billing Name Role Phone Yokasta Dunn MD Primary Care Provider [phone] Encounter Details Date Type Department Care Team (Late st Contact Info) Description 11/17/2023 Scanned Document [facility] [address] [place] [address] [place] [address] [place], [place] [id number] Social History Tobacco Use Types Packs/Day Years Used Date Smoking Tobacco: Former Cigarettes Passive Smoke Exposure: Never Smokeless Tobacco: Never PHQ-2 Answer Date Recorded Patient Health Questionnaire-2 Score 0 08/23/2023 Sex and Gender Information Value Date Recorded Sex Assigned at Not on file Legal Sex Male 3:58 PM EST Gender Identity Not on file Sexual Orientation Not on file COVID-19 Exposure Response Date Recorded In the last 10 days, have yo u been in contact with someone who was confirmed or suspected to have Coronavirus/COVID-19? No / Unsure 11/08/2023 10:28 AM EST documented as of this encounter Plan of Treatment Upcoming Encounters Date Type Department Care Team (Late st Contact Info) Description 08/06/2025 10:15 AM EST Office Visit [facility] [place] [address] [place] [phone] [place] [address] [place] [address] documented as of this encounter Visit Diagnoses Not on filedocumented in this encounter Additional Health Concerns Assessment Noted Time A fall risk assessment has been complete d for the patient 08/23/2023 11:10 AM EST documented as of this encounter Care Teams Manager Of Customer Billing Relationship Specialty Start Date End Date Yokasta Dunn MD [address] [place], [place] [id number] PCP - General 12/22/17 documented as of this encounter
--- OUTSIDE RECORDS SUMMARY | 2025-02-20 09:35 | XMS_ITS | Encounter Summary ---
Author Organization [facility] Address [address] [place] [address] Phone Care Team Providers Care Project/Production Manager Imaging Name Role Phone Yokasta Dunn MD Primary Care Provider [phone] Encounter Details Date Type Department Care Team (Late st Contact Info) Description 11/17/2023 Scanned Document [facility] [address] [place] [address] [place] [address] [place], [place] [id number] Social History Tobacco Use Types Packs/Day Years [...] Description 08/06/2025 10:15 AM EST Office Visit [facility] [address] [place] [phone] [place] [address] [place] [address] documented as of this encounter Visit Diagnoses Not on filedocumented in this encounter Additional Health Concerns Assessment Noted Time A fall risk assessment has been complete d for the patient 08/23/2023 11:10 AM EST documented as of this encounter Care Teams Project/Production Manager Imaging Relationship Specialty Start Date End Date Yokasta Dunn MD [address] [place], [place] [phone] PCP - General 12/22/17 documented as of this encounter
--- OUTSIDE RECORDS SUMMARY | 2025-02-20 09:35 | XMS_ITS | Clinical Summary ---
Author Organization [facility] Address [address] [place] [address] Phone Care Team Providers Care Med Aide Name Role Phone Yokasta Dunn MD Primary Care Provider [phone] Allergies Active Allergy Reactions Criticality Noted Date Comments Ciprofloxacin Diarrhea,Other,Unknown 01/01/2011 Penicillins Hives,Other,GI intolerance,Unknown 01/01/2011 As a child Tolerated piperacillin, ceftriaxone 10/2024 Medications latanoprost (Xalatan) 0.005 % ophthalmic solution Administer 1 drop into both eyes once daily at bedtime. 09/15/20 20 Active rosuvastatin (Crestor) 10 mg tablet Take 1 tablet (10 mg) by mouth once daily. Active metoprolol tartrate (Lopressor) 50 mg tabletIndications: Primary hypertension Take 1 tablet by mouth 2 times a day. Through NG tube 10/31/19 25 Active acetaminophen (Tylenol) 325 mg tabletIndications: Osteoarthritis, unspecified osteoarthritis type, unspecified site 3 tablets (975 mg) by nasogastric tube route every 8 hours if needed for mild pain (1 - 3), moderate pain (4 - 6), headaches or fever (temp greater than 38.0 C). 10/31/19 25 Active guaiFENesin (Robitussin) 100 mg/5 mL syrupIndications:P neumonia due to infectious organism, unspecified laterality, unspecified part of lung Take 10 mL (200 mg) by mouth every 4 hours if needed for congestion. Through NG tube 10/31/19 25 Active ipratropium-albute roL (Duo-Neb) 0.5-2.5 mg/3 mL nebulizer solutionIndication s:Pneumonia due to infectious organism, unspecified laterality, unspecified part of lung Take 3 mL by nebulization 4 times a day as needed for wheezing or shortness of breath. 10/31/19 25 Active lidocaine 4 % patchIndications:O steoarthritis, unspecified osteoarthritis type, unspecified site Place 1 patch over 12 hours on the skin once daily as needed for mild pain (1 - 3), moderate pain (4 - 6) or severe pain (7 - 10). Remove & discard patch within 12 hours or as directed by MD. 10/31/19 25 Active melatonin 5 mg tabletIndications: Osteoarthritis, unspecified osteoarthritis type, unspecified site 1 tablet (5 mg) by nasogastric tube route once daily at bedtime. 10/31/19 25 Active clopidogrel (Plavix) 75 mg tabletIndications: Ventricular pre-excitation with arrhythmia Take 1 tablet (75 mg) by mouth once daily. Through NG tube 10/31/19 25 Active finasteride (Proscar) 5 mg tabletIndications: Urinary retention Take 1 tablet (5 mg) by mouth once daily. 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 No 10/25/2024 Humiliation, Afraid, Rape, a nd Kick questionnaire Answer Date Recorded Within the last year, have y ou been afraid of your partner or ex-partner? Patient unable to answer 10/24/2024 Within the last year, have y ou been humiliated or emotionally abused in other ways by your partner or ex-partner? Patient unable to answer 10/24/2024 Within the last year, have y ou been kicked, hit, slapped, or otherwise physically hurt by your partner or ex-partner? Patient unable to answer 10/24/2024 Within the last year, have y ou been raped or forced to have any kind of sexual activity by your partner or ex-partner? Patient unable to answer 10/24/2024 Social Connection and Isolation Panel [NHANES] A nswer Date Recorded Frequency of Communication with Friends and Fami ly Not on file 10/25/2024 Frequency of Social Gatherings with Friends and Family Not on file 10/25/2024 Attends Protestant Services Not on file 10/25 Active Member of Clubs or Organizations Not on f ile 10/25/2024 Attends Club or Organization Meetings Not on sanjuana e 10/25/2024 Are you , , di vorced, , never , or living with a partner? 10/25/2024 AUDIT-C Answer Date Recorded Q1: How often do you have a drink containing alcohol? Patient unable to answer 10/24/2024 Q2: How many drinks containi ng alcohol do you have on a typical day when you are drinking? Patient unable to answer Q3: How often do you have si x or more drinks on one occasion? Patient unable to answer 10/24/2024 Overall Financial Resource Strain (CARDIA) Answe r Date Recorded How hard is it for you to pa y for the very basics like food, housing, medical care, and heating? Not very hard 10/25/2024 PHQ-2 Answer Date Recorded Patient Health Questionnaire-2 Score 0 10/24/2024 Hunger Vital Sign Answer Date Recorded Within the past 12 months, y ou worried that your food would run out before you got the money to buy more. Never true 10/25/19 25 Within the past 12 months, t he food you bought just didn't last and you didn't have money to get more. Never true 10/25/2024 PRAPARE - Transportation Answer Date Re corded In the past 12 months, has l ack of transportation kept you from medical appointments or from getting medications? No 09/28 In the past 12 months, has l ack of transportation kept you from meetings, work, or from getting things needed for daily living? No 10/25/2024 Housing Stability Vital Sign Answer Sam e Recorded In the last 12 months, was t here a time when you were not able to pay the mortgage or rent on time? No 10/25/2024 In the past 12 months, how m any times have you moved where you were living? 0 10/25/2024 At any time in the past 12 m [facility], were you homeless or living in a [facility] (including now)? No 10/25/2024 Sex and Gender Information Value Date Recorded Sex Assigned at Not on file Legal Sex Male 3:58 PM EST Gender Identity Not on file Sexual Orientation Not on file COVID-19 Exposure Response Date Recorded In the last 10 days, have yo u been in contact with someone who was confirmed or suspected to have Coronavirus/COVID-19? No / Unsure 01/22/2025 10:17 AM EDT Last Filed Vital Signs Vital Sign Reading Time Taken Comments Blood Pressure 135/92 11/02/2024 7:16 AM EST Pulse 89 11/02/2024 7:16 AM EST Temperature 36 C (96.8 F) 11/02/2024 7:16 AM EST Respiratory Rate 18 11/02/2024 7:16 AM EST Oxygen Saturation 94% 11/02/2024 7:16 AM EST Inhaled Oxygen Concentration - - Weight 69.4 kg (153 lb) 01/22/2025 10:27 AM EDT Height 182.9 cm (6') 01/22/2025 10:27 AM EDT Body Mass Index 20.75 01/22/2025 10:27 AM EDT Plan of Treatment Upcoming Encounters Date Type Department Care Team (Late st Contact Info) Description 08/06/2025 10:15 AM EST Office Visit [facility] [address] [place] [address] [place] [address] [place] [address] Health Maintenance Due Date Last Done Comments Medicare Annual Wellness Visit (AWV) 1940 DTaP/Tdap/Td Vaccines (1 - Tdap) 02/21/1964 Zoster Vaccines (2 of 3) 04/21/2015 02/24/2015 RSV High Risk: (Elderly (60+) or Population) (1 - 1-dose 75+ series) 2017 COVID-19 Vaccine (2 - season) 2024 02/26/2022 Echocardiogram 10/24/2025 10/24/2024, 05/27, 05/28/2022 Creatinine Level 10/31/2025 10/31/2024, 12/2024, 10/29/2024, Additional history exists Diabetes Screening 10/31/2025 10/31/2024, 0 10/31/2024, 10/31/2024, Additional history exists Potassium Level 10/31/2025 10/31/2024, 02/0 12/2024, 10/29/2024, Additional history exists Lipid Panel 05/28/2027 05/28/2022 Pneumococcal Vaccine Completed 06/26/2019, 06/21/2019, 06/24/2017, Additional history exists Influenza Vaccine Completed 07/21/2024, , 07/23/2022, Additional history exists HIB Vaccines Aged Out No longer eligi ble based on patient's age to complete this topic HPV Vaccines Aged Out No longer eligi ble based on patient's age to complete this topic Hepatitis A Vaccines Aged Out No long er eligible based on patient's age to complete this topic Hepatitis B Vaccines Aged Out No long er eligible based on patient's age to complete this topic IPV Vaccines Aged Out No longer eligi ble based on patient's age to complete this topic Meningococcal Vaccine Aged Out No magalys gabriela eligible based on patient's age to complete this topic Rotavirus Vaccines Aged Out No longer eligible based on patient's age to complete this topic Medical Devices Implanted Type Area Rubber Insulator Device Identifier Shelf Expiration Date Model / Serial / Lot Lead, Pacing, Cardiac, Temporary, W/Suture, Flexon, 2-0, 24 Case [id number] Implanted:Qty: 2 on 06/04/2022 by Дмитрий Bee MD PhD Cardiac Pacemaker [facility] [id number] / / Description:Converted from [facility]. Please see archived information for full log information. Lead, Pacing, Myocardial, Bipolar, Temporary Case [id number] Implanted:Qty: 1 on 06/04/2022 by Дмитрий Bee MD PhD Cardiac Pacemaker [employer] [id number] / / Description:Converted from [facility]. Please see archived information for full log information. Ring, Mitral, Henri 4d, 34mm Case [id number] Implanted:Qty: 1 on 06/04/2022 by Дмитрий Bee MD PhD Heart Valve Repair [employer] [id number] / / Description:Converted from [facility]. Please see archived information for full log information. Atriclip, Flex-V Device, 50mm Sterile, Achv50 Case [id number] Implanted:Qty: 1 on 06/04/2022 by Дмитрий Bee MD PhD Other Cardiac Implant [employer] [id number] / / Description:Converted from [facility]. Please see archived information for full log information. Procedures Procedure Name Priority Date/Time Associated Diagnosis Comments POCT GLUCOSE Routine 10/31/2024 11:10 AM EST COMPREHENSIVE METABOLIC PANEL Routine 10/31/2024 6:52 AM EST TRANSTHORACIC ECHO (TTE) COMPLETE STAT 10/24/2024 12:11 PM EST Arrhythmia Ventricular pre-excitation with arrhythmia LIPID PANEL Routine 05/28/2022 12:00 AM EDT from Last 3 Months or Most Recently Relevant to Health Maintenance Results * (ABNORMAL) POCT GLUCOSE (10/31/2024 11:10 AM EST) Pathologist [facility] POCT Glucose 127(H) 74 - 99 mg/dL 10/31/2024 11:12 AM EST [facility] Blood Capillary blood specimen / Unknown 10/31/2024 11:10 AM EST 10/31/2024 11:12 AM EST Luis Alfredo Pitts MD LAB POINT OF CARE T EST DOCKED DEVICE UNSOLICITED RESULTS Final Result [facility] [address] [address] [place] [address] * (ABNORMAL) Comprehensive Metabolic Panel (10/31/2024 6:52 AM EST) [facility] Glucose 117(H) 74 - 99 mg/dL LAB CHEMISTRY METHOD 10/31/2024 9:41 AM EST [facility] Sodium 138 136 - 145 mmol/L LAB CHEMISTRY METHOD 10/31/2024 9:41 AM EST [facility] Potassium 4.0 3.5 - 5.3 mmol/L LAB CHEMISTRY METHOD 10/31/2024 9:41 AM EST [facility] Chloride 106 98 - 107 mmol/L LAB CHEMISTRY METHOD 10/31/2024 9:41 AM EST [facility] Bicarbonate 24 21 - 32 mmol/L LAB CHEMISTRY METHOD 10/31/2024 9:41 AM EST [facility] Anion Gap 12 10 - 20 mmol/L LAB CHEMISTRY METHOD 10/31/2024 9:41 AM EST [facility] Urea Nitrogen 14 6 - 23 mg/dL LAB CHEMISTRY METHOD 10/31/2024 9:41 AM EST [facility] Creatinine 0.50 0.50 - 1.30 mg/dL LAB CHEMISTRY METHOD 10/31/2024 9:41 AM EST [facility] eGFR >90 >60 mL/min/1. 73m*2 LAB CHEMISTRY METHOD 10/31/2024 9:41 AM EST [facility] Comment: Calculations of estimated GFR are performed using the 2020 CKD-EPI Study Refit equation without the race variable for the IDMS-Traceable creatinine methods. https://jasn.asnjournals.org/content/early//ASN.4462472140 Calcium 7.9(L) 8.6 - 10.6 mg/dL LAB CHEMISTRY METHOD 10/31/2024 9:41 AM EST [facility] Albumin 2.5(L) 3.4 - 5.0 g/dL LAB CHEMISTRY METHOD 10/31/2024 9:41 AM EST [facility] Alkaline Phosphatase 54 33 - 136 U/L LAB CHEMISTRY METHOD 10/31/2024 9:41 AM EST [facility] Total Protein 5.5(L) 6.4 - 8.2 g/dL LAB CHEMISTRY METHOD 10/31/2024 9:41 AM EST [facility] AST 22 9 - 39 U/L LAB CHEMISTRY METHOD 10/31/2024 9:41 AM EST [facility] Bilirubin, Total 0.7 0.0 - 1.2 mg/dL LAB CHEMISTRY METHOD 10/31/2024 9:41 AM EST [facility] ALT 14 10 - 52 U/L LAB CHEMISTRY METHOD 10/31/2024 9:41 AM EST [facility] Comment:Patients treated wit h Sulfasalazine may generate falsely decreased results for ALT. Blood Venous blood specimen / Unknown Venipuncture / Unknown 10/31/2024 6:52 AM EST 10/31/2024 8:50 AM EST us Naldo Calzada MD LAB BLOOD ORDERABLES Final R esult [facility] [id number] [place] [address] * TRANSTHORACIC ECHO (TTE) COMPLETE (10/24/2024 12:11 PM EST) Pathologist [facility] AV pk olayinka 1.21 m/s SYNGO AV mn grad 4 mmHg SYNGO LVOT diam 2.30 cm SYNGO LA vol index A/L 82.0 ml/m2 SYNGO Tricuspid annular plane systolic excursion 1.4 cm SYNGO LV EF 40 % SYNGO RV free wall pk S' 11.00 cm/s SYNGO LVIDd 5.80 cm SYNGO RVSP 57.2 mmHg SYNGO Aortic Valve Area by Continuity of VTI 2.57 cm2 SYNGO Aortic Valve Area by Continuity of Peak Velocity 2.68 cm2 SYNGO AV pk grad 6 mmHg SYNGO LV A4C EF 39.0 SYNGO 10/24/2024 11:0 6 AM EST Narrative SYNGO - 10/24/2024 1:14 PM EST [facility], [address] [place] [address] and TRANSTHORACIC ECHOCARDIOGRAM REPORT Patient Name: BRAVO TOLEDO Reading Physician: [id number] Monty Vyas MD Study Date: 10/24/2024 Ordering Provider: [id number] JASON MARCH MRN/PID: [id number] Fellow: Nurse: Date of /Age: 5 1940 Pricing Coordinator: Karen linton RDCS Gender assigned at M Additional Staff: : Height: 182.88 cm Admit Date: Weight: 74.84 kg Admission Status: Inpatient - STAT BSA / BMI: 1.96 m2 / 22.38 kg/m2 Blood Pressure: 78/57 mmHg Department Location: [facility] Study Type: TRANSTHORACIC ECHO (TTE) COMPLETE Diagnosis/ICD: Cardiac arrhythmia, unspecified-I49.9 Indication: concern for new arrhythmia/ VT from OSH CPT Code: Echo Complete w Full Doppler-[id number] Patient History: Pertinent History: S/p CABG x3, Mvr henri 4D ring, AMI ligation 50mm atriclip 06/04/2022. Study Detail: The following Echo studies were performed: 2D, M-Mode, Doppler and color flow. Technically challenging study due to patient lying in supine position. The patient is intubated. Agitated saline used as a contrast agent for intraseptal flow evaluation. PHYSICIAN INTERPRETATION: Left Ventricle: Left ventricular ejection fraction is moderately decreased, by visual estimate at 40%. There is global hypokinesis of the left ventricle with minor regional variations. The left ventricular cavity size is mildly dilated. There is normal septal and normal posterior left ventricular wall thickness. Abnormal (paradoxical) septal motion consistent with post-operative status. Left ventricular diastolic filling cannot be determined due to mitral valve repair/replacement. Left Atrium: The left atrial size is severely dilated. Right Ventricle: The right ventricle is mildly enlarged. There is mildly reduced right ventricular systolic function. Right Atrium: The right atrium is moderate to severely dilated. There is a device visualized in the right atrium. Aortic Valve: The aortic valve is probably trileaflet. There is minimal aortic valve cusp calcification. The aortic valve dimensionless index is 0.62. There is mild aortic valve regurgitation. The peak instantaneous gradient of the aortic valve is 6 mmHg. The mean gradient of the aortic valve is 4 mmHg. Mitral Valve: Status post mitral valve repair. The peak instantaneous gradient of the mitral valve is 5 mmHg. There is trace to mild mitral valve regurgitation. Tricuspid Valve: The tricuspid valve is structurally normal. There is moderate tricuspid regurgitation. Pulmonic Valve: The pulmonic valve is structurally normal. There is trace to mild pulmonic valve regurgitation. Pericardium: Trivial to small pericardial effusion. Aorta: The aortic root is normal. There is upper limits of normal dilatation of the ascending aorta. The aortic root is at the upper limits of normal size. There is plaque visualized in the abdominal aorta. Pulmonary Artery: The tricuspid regurgitant velocity is 3.36 m/s, and with an estimated right atrial pressure of 12 mmHg, the estimated pulmonary artery pressure is moderately elevated with the RVSP at 57.2 mmHg. Systemic Veins: The inferior vena cava appears mildly dilated, on vent. In comparison to the previous echocardiogram(s): Compared with study dated 06/11/2022, no significant change. CONCLUSIONS: 1. Left ventricular cavity size is mildly dilated. 2. Left ventricular ejection fraction is moderately decreased, by visual estimate at 40%. 3. There is global hypokinesis of the left ventricle with minor regional variations. 4. Abnormal septal motion consistent with post-operative status. 5. Mildly enlarged right ventricle. 6. There is mildly reduced right ventricular systolic function. 7. The left atrial size is severely dilated. 8. The right atrium is moderate to severely dilated. 9. Mild aortic valve regurgitation. 10. Status post mitral valve repair. 11. Trace to mild mitral valve regurgitation. 12. Moderate tricuspid regurgitation visualized. 13. Moderately elevated pulmonary artery pressure. 14. The inferior vena cava appears mildly dilated, on vent. QUANTITATIVE DATA SUMMARY: 2D MEASUREMENTS: Normal Ranges: Ao Root d: 3.90 cm (2.0-3.7cm) LAs: 5.40 cm (2.7-4.0cm) IVSd: 1.00 cm (0.6-1.1cm) LVPWd: 0.90 cm (0.6-1.1cm) LVIDd: 5.80 cm (3.9-5.9cm) LVIDs: 4.20 cm LV Mass Index: 111 g/m2 LV % FS 27.6 % LEFT ATRIUM: Normal Ranges: LA Vol A4C: 106.8 ml (22+/-6mL/m2) LA Vol A2C: 216.4 ml LA Vol BP: 161.0 ml LA Vol Index A4C: 54.4ml/m2 LA Vol Index A2C: 110.2 ml/m2 LA Vol Index BP: 82.0 ml/m2 LA Area A4C: 28.8 cm2 LA Area A2C: 43.4 cm2 LA Major Hemphill A4C: 6.6 cm LA Major Hemphill A2C: 7.4 cm RIGHT ATRIUM: Normal Ranges: RA Area A4C: 29.3 cm2 AORTA MEASUREMENTS: Normal Ranges: Ao Sinus, d: 3.70 cm (2.1-3.5cm) Asc Ao, d: 3.50 cm (2.1-3.4cm) LV SYSTOLIC FUNCTION: Normal Ranges: EF-A4C View: 39 % (>=55%) EF-A2C View: 40 % EF-Visual: 40 % LV EF Reported: 40 % LV DIASTOLIC FUNCTION: Normal Ranges: MV Peak E: 1.03 m/s (0.7-1.2 m/s) MV lateral e' 0.07 m/s MITRAL VALVE: Normal Ranges: MV Vmax: 1.13 m/s (<=1.3m/s) MV peak P.1 mmHg (<5mmHg) MV mean P.0 mmHg (<2mmHg) MV VTI: 27.40 cm (10-13cm) MV PHT: 127 msec (30-60msec) MVA by PHT: 1.73 cm2 (4-6cm2) AORTIC VALVE: Normal Ranges: AoV Vmax: 1.21 m/s (<=1.7m/s) AoV Peak P.9 mmHg (<20mmHg) AoV Mean P.0 mmHg (1.7-11.5mmHg) LVOT Max Olayinka: 0.78 m/s (<=1.1m/s) AoV VTI: 20.70 cm (18-25cm) LVOT VTI: 12.80 cm LVOT Diameter: 2.30 cm (1.8-2.4cm) AoV Area, VTI: 2.57 cm2 (2.5-5.5cm2) AoV Area,Vmax: 2.68 cm2 (2.5-4.5cm2) AoV Dimensionless Index: 0.62 AORTIC INSUFFICIENCY: AI Vmax: 4.34 m/s AI Half-time: 1004 msec AI Decel Rate: 00922.00 cm/s2 RIGHT VENTRICLE: RV Basal 4.80 cm RV Mid 2.80 cm RV Major 7.5 cm TAPSE: 14.3 mm RV s' 0.11 m/s TRICUSPID VALVE/RVSP: Normal Ranges: Peak TR Velocity: 3.36 m/s RV Syst Pressure: 57 mmHg (< 30mmHg) IVC Diam: 2.20 cm PULMONIC VALVE: Normal Ranges: PV Accel Time: 95 msec (>120ms) PV Max Olayinka: 0.6 m/s (0.6-0.9m/s) PV Max P.4 mmHg [id number] Monty Vyas MD Electronically signed on 10/24/2024 at 1:14:18 PM Final Procedure Note Monty Vyas MD - 10/24/2024 [facility], [address] [place] [address] and TRANSTHORACIC ECHOCARDIOGRAM REPORT Patient Name: BRAVO Radford Physician: [id number] Vyas MD Study Date: 10/24/2024 Ordering Provider: [id number] MARCH MRN/PID: [id number] Fellow: Nurse: Date of /Age: 7 1940 Pricing Coordinator: Dayana linton RDCS Gender assigned at Additional Staff: : Height: 182.88 cm Admit Date: Weight: 74.84 kg Admission Status: Inpatient -STAT BSA / BMI: 1.96 m2 / 22.38 kg/m2 Blood Pressure: 78/57 mmHg Department Location: [facility] Study Type: TRANSTHORACIC ECHO (TTE) COMPLETE Diagnosis/ICD: Cardiac arrhythmia, unspecified-I49.9 Indication: concern for new arrhythmia/ VT from OSH CPT Code: Echo Complete w Full Doppler-[id number] Patient History: Pertinent History: S/p CABG x3, Mvr henri 4D ring, AMI ligation 50mmatriclip 06/04/2022. Study Detail: The following Echo studies were performed: 2D, M-Mode,Doppler and color flow. Technically challenging study due to patientlying in supine position. The patient is intubated. Agitated salineused as a contrast agent for intraseptal flow evaluation. PHYSICIAN INTERPRETATION: Left Ventricle: Left ventricular ejection fraction is moderatelydecreased, by visual estimate at 40%. There is global hypokinesis of theleft ventricle with minor regional variations. The left ventricular cavitysize is mildly dilated. There is normal septal and normal posterior leftventricular wall thickness. Abnormal (paradoxical) septal motionconsistent with post-operative status. Left ventricular diastolic fillingcannot be determined due to mitral valve repair/replacement. Left Atrium: The left atrial size is severely dilated. Right Ventricle: The right ventricle is mildly enlarged. There is mildlyreduced right ventricular systolic function. Right Atrium: The right atrium is moderate to severely dilated. There is adevice visualized in the right atrium. Aortic Valve: The aortic valve is probably trileaflet. There is minimalaortic valve cusp calcification. The aortic valve dimensionless index is0.62. There is mild aortic valve regurgitation. The peak instantaneousgradient of the aortic valve is 6 mmHg. The mean gradient of the aorticvalve is 4 mmHg. Mitral Valve: Status post mitral valve repair. The peak instantaneousgradient of the mitral valve is 5 mmHg. There is trace to mild mitralvalve regurgitation. Tricuspid Valve: The tricuspid valve is structurally normal. There ismoderate tricuspid regurgitation. Pulmonic Valve: The pulmonic valve is structurally normal. There is traceto mild pulmonic valve regurgitation. Pericardium: Trivial to small pericardial effusion. Aorta: The aortic root is normal. There is upper limits of normaldilatation of the ascending aorta. The aortic root is at the upper limitsof normal size. There is plaque visualized in the abdominal aorta. Pulmonary Artery: The tricuspid regurgitant velocity is 3.36 m/s, and withan estimated right atrial pressure of 12 mmHg, the estimated pulmonaryartery pressure is moderately elevated with the RVSP at 57.2 mmHg. Systemic Veins: The inferior vena cava appears mildly dilated, on vent. In comparison to the previous echocardiogram(s): Compared with study dated06/11/2022, no significant change. CONCLUSIONS: 1. Left ventricular cavity size is mildly dilated. 2. Left ventricular ejection fraction is moderately decreased, by visualestimate at 40%. 3. There is global hypokinesis of the left ventricle with minor regionalvariations. 4. Abnormal septal motion consistent with post-operative status. 5. Mildly enlarged right ventricle. 6. There is mildly reduced right ventricular systolic function. 7. The left atrial size is severely dilated. 8. The right atrium is moderate to severely dilated. 9. Mild aortic valve regurgitation. 10. Status post mitral valve repair. 11. Trace to mild mitral valve regurgitation. 12. Moderate tricuspid regurgitation visualized. 13. Moderately elevated pulmonary artery pressure. 14. The inferior vena cava appears mildly dilated, on vent. QUANTITATIVE DATA SUMMARY: 2D MEASUREMENTS: Normal Ranges: Ao Root d: 3.90 cm (2.0-3.7cm) LAs: 5.40 cm (2.7-4.0cm) IVSd: 1.00 cm (0.6-1.1cm) LVPWd: 0.90 cm (0.6-1.1cm) LVIDd: 5.80 cm (3.9-5.9cm) LVIDs: 4.20 cm LV Mass Index: 111 g/m2 LV % FS 27.6 % LEFT ATRIUM: Normal Ranges: LA Vol A4C: 106.8 ml (22+/-6mL/m2) LA Vol A2C: 216.4 ml LA Vol BP: 161.0 ml LA Vol Index A4C: 54.4ml/m2 LA Vol Index A2C: 110.2 ml/m2 LA Vol Index BP: 82.0 ml/m2 LA Area A4C: 28.8 cm2 LA Area A2C: 43.4 cm2 LA Major Hemphill A4C: 6.6 cm LA Major Hemphill A2C: 7.4 cm RIGHT ATRIUM: Normal Ranges: RA Area A4C: 29.3 cm2 AORTA MEASUREMENTS: Normal Ranges: Ao Sinus, d: 3.70 cm (2.1-3.5cm) Asc Ao, d: 3.50 cm (2.1-3.4cm) LV SYSTOLIC FUNCTION: Normal Ranges: EF-A4C View: 39 % (>=55%) EF-A2C View: 40 % EF-Visual: 40 % LV EF Reported: 40 % LV DIASTOLIC FUNCTION: Normal Ranges: MV Peak E: 1.03 m/s (0.7-1.2 m/s) MV lateral e' 0.07 m/s MITRAL VALVE: Normal Ranges: MV Vmax: 1.13 m/s (<=1.3m/s) MV peak P.1 mmHg (<5mmHg) MV mean P.0 mmHg (<2mmHg) MV VTI: 27.40 cm (10-13cm) MV PHT: 127 msec (30-60msec) MVA by PHT: 1.73 cm2 (4-6cm2) AORTIC VALVE: Normal Ranges: AoV Vmax: 1.21 m/s (<=1.7m/s) AoV Peak P.9 mmHg (<20mmHg) AoV Mean P.0 mmHg (1.7-11.5mmHg) LVOT Max Olayinka: 0.78 m/s (<=1.1m/s) AoV VTI: 20.70 cm (18-25cm) LVOT VTI: 12.80 cm LVOT Diameter: 2.30 cm (1.8-2.4cm) AoV Area, VTI: 2.57 cm2 (2.5-5.5cm2) AoV Area,Vmax: 2.68 cm2 (2.5-4.5cm2) AoV Dimensionless Index: 0.62 AORTIC INSUFFICIENCY: AI Vmax: 4.34 m/s AI Half-time: 1004 msec AI Decel Rate: 74863.00 cm/s2 RIGHT VENTRICLE: RV Basal 4.80 cm RV Mid 2.80 cm RV Major 7.5 cm TAPSE: 14.3 mm RV s' 0.11 m/s TRICUSPID VALVE/RVSP: Normal Ranges: Peak TR Velocity: 3.36 m/s RV Syst Pressure: 57 mmHg (< 30mmHg) IVC Diam: 2.20 cm PULMONIC VALVE: Normal Ranges: PV Accel Time: 95 msec (>120ms) PV Max Olayinka: 0.6 m/s (0.6-0.9m/s) PV Max P.4 mmHg [id number] Monty Vyas MD Electronically signed on 10/24/2024 at 1:14:18 PM Final us Jason March DO CV ECHO PROCEDURES Final Result SYNGO * (ABNORMAL) Lipid Panel (05/28/2022 12:00 AM EDT) Cholesterol 96 0 - 199 mg/dL [facility] Comment: . AGE DESIRABLE BORDERLINE HIGH HIGH 0-19 Y 0 - 169 170 - 199 >/= 200 20-24 Y 0 - 189 190 - 224 >/= 225 >24 Y 0 - 199 200 - 239 >/= 240 All ranges are based on fasting samples. Specific therapeutic targets will vary based on patient-specific cardiac risk. . Pediatric guidelines reference:Pediatrics 2011, 128(S5). Adult guidelines reference: NCEP ATPIII Guidelines, RAN 2001, 258:2486-97 . Venipuncture immediately after or during the administration of Metamizole may lead to falsely low results. Testing should be performed immediately prior to Metamizole dosing. HDL 33.2(A) mg/dL [facility] Comment: . AGE VERY LOW LOW NORMAL HIGH 0-19 Y < 35 < 40 40-45 ---- 20-24 Y ---- < 40 >45 ---- >24 Y ---- < 40 40-60 >60 . Cholesterol/HDL Ratio 2.9 [facility] Comment: REF VALUES DESIRABLE < 3.4 HIGH RISK > 5.0 LDL 51 0 - 99 mg/dL [facility] Comment: . NEAR BORD AGE DESIRABLE OPTIMAL HIGH HIGH VERY HIGH 0-19 Y 0 - 109 --- 110-129 >/= 130 ---- 20-24 Y 0 - 119 --- 120-159 >/= 160 ---- >24 Y 0 - 99 100-129 130-159 160-189 >/=190 . VLDL 11 0 - 40 mg/dL [facility] Triglycerides 57 0 - 149 mg/dL [facility] Comment: . AGE DESIRABLE BORDERLINE HIGH HIGH VERY HIGH 0 D-90 D 19 - 174 ---- ---- ---- 91 D- 9 Y 0 - 74 75 - 99 >/= 100 ---- 10-19 Y 0 - 89 90 - 129 >/= 130 ---- 20-24 Y 0 - 114 115 - 149 >/= 150 ---- >24 Y 0 - 149 150 - 199 200- 499 >/= 500 . Venipuncture immediately after or during the administration of Metamizole may lead to falsely low results. Testing should be performed immediately prior to Metamizole dosing. 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
--- OUTSIDE RECORDS SUMMARY | 2025-02-20 09:35 | XMS_ITS | Clinical Summary ---
Author Organization [facility] Address [address] [place] [address] Care Team Providers Care Office Administrative Assistant Name Role Phone Blayne Santiago MD Primary Care Provider Allergies Active Allergy Reactions Criticality Noted Date Comments Ciprofloxacin Other (See Comments) 01/01/2011 Penicillins Other (See Comments) 01/01/2011 As a child Medications mercaptopurine (PURINETHOL) 50 MG tablet Take 50 mg by mouth 2 times daily. Active levetiracetam (KEPPRA) 250 MG tablet Take 250 mg by mouth 2 times daily. Active simvastatin (ZOCOR) 40 MG tablet Take 40 mg by mouth nightly. Active mercaptopurine (PURINETHOL) 50 MG tablet Take 1 tablet by mouth 2 times daily. 60 tablet 11 10/26/2011 Active aspirin 325 MG tablet Take 325 mg by mouth daily. Active mercaptopurine (PURINETHOL) 50 MG chemo tablet One (1) po bid 60 tablet 11 12/05/2012 Active Active Problems Problem Noted Date Diagnosed Date Crohn disease 01/01/2011 Family History Relation Name Status Comments Father Mother Social History Tobacco Use Types Packs/Day Years Used Date Smoking Tobacco: Never Smokeless Tobacco: Never Alcohol Use Standard Drinks/Week Comments No 0 (1 standard drink = 0.6 oz pur e alcohol) Sex and Gender Information Value Date Recorded Sex Assigned at Not on file Legal Sex Male 8:23 PM EST Gender Identity Not on file Sexual Orientation Not on file Last Filed Vital Signs Vital Sign Reading Time Taken Comments Blood Pressure 144/73 12/05/2012 11:36 AM EDT Pulse 65 12/05/2012 11:36 AM EDT Temperature 36.4 C (97.6 F) 12/05/2012 11:36 AM EDT Respiratory Rate 18 12/05/2012 11:3 6 AM EDT Oxygen Saturation - - Inhaled Oxygen Concentration - - Weight 80.2 kg (176 lb 12.8 oz) 013 11:36 AM EDT Height 190.5 cm (6' 3 ) 12/05/2012 11:3 6 AM EDT Body Mass Index 22.1 12/05/2012 11:36 AM EDT Plan of Treatment Not on file Care Teams Office Administrative Assistant Relationship Specialty Start Date End Date Blayne Santiago MD PCP - General Family Medicine 10/26/11
--- OUTSIDE RECORDS SUMMARY | 2025-02-20 09:35 | XMS_ITS | Clinical Summary ---
Author Organization [facility] Address [address] [place] [address] Care Team Providers Care Commercial Finance Analyst Name Role Phone Blayne Santiago DO Primary Care Provider [phone] Allergies Active Allergy Reactions Criticality Noted Date [...] Years Used Date Smoking Tobacco: Never Assessed ND Safety & Environment Answer Date Rec orded [...] 05/05/2022 9:57 AM EDT Plan of Treatment Health Maintenance Due Date Last Done Comments Medicare Annual Wellness (AWV) 1940 Depression Screening 1954 Adult Tetanus 02/21/1964 Zoster Vaccines (1 of 2) 02/21/1992 02/24/2015 Fall Risk Screening 2007 COVID-19 Vaccine ( season) 2024 Influenza Vaccine (Season Ended) 2025 07/23/2022, 06/15/2021, 06/21/2019, Additional history exists Pneumococcal Vaccine: 65+ Years Completed 06/26/2019, 06/21/2019, 06/24/2017, Additional history exists HIB Vaccines Aged Out No longer eligi ble based on patient's age to complete this topic HPV Vaccines Aged Out No longer eligi ble based on patient's age to complete this topic IPV Vaccines Aged Out No longer eligi ble based on patient's age to complete this topic Meningococcal B Vaccine Aged Out No l onger eligible based on patient's age to complete this topic Meningococcal Vaccine Aged Out No magalys gabriela eligible based on patient's age to complete this topic Rotavirus Vaccines Aged Out No longer eligible based on patient's age to complete this topic Advance Directives Documents on File Type Date Recorded 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
--- OUTSIDE RECORDS SUMMARY | 2025-02-20 09:35 | XMS_ITS | Encounter Summary ---
Author Organization [facility] Address [address] [place] [id number] Phone Care Team Providers Care Devops Developer Name Role Phone Yokasta Dunn MD Primary Care Provider [phone] Encounter Details Date Type Department Care Team (Late st Contact Info) Description 06/21/2023 Scanned Document [facility] [address] [place] [address] Conversion, Onbase Social History Tobacco Use Types Packs/Day Years Used Date Smoking Tobacco: Never Assessed Sex and Gender Information Value Date Recorded Sex Assigned at Not on file Legal Sex Male 3:58 PM EST Gender Identity Not on file Sexual Orientation Not on file documented as of this encounter Plan of Treatment Upcoming Encounters Date Type Department Care Team (Late st Contact Info) Description 08/06/2025 10:15 AM EST Office Visit [facility] [address] [facility] [address] [place] [id number] [place] [address] [place], [place] [phone] documented as of this encounter Procedures Procedure Name Priority Date/Time Associated Diagnosis Comments OUTSIDE GENERIC TESTING 06/21/2023 documented in this encounter Results * OUTSIDE GENERIC TESTING (06/21/2023) Anatomical Region Laterality Modality Other Narrative 06/21/2023 Ordered by an unspecified provider. us Onbase Conversion OUTSIDE SCAN Final Result documented in this encounter Visit Diagnoses Not on filedocumented in this encounter Care Teams Devops Developer Relationship Specialty Start Date End Date Yokasta Dunn MD [address] [place] [address] PCP - General 12/22/17 documented as of this encounter
--- OUTSIDE RECORDS SUMMARY | 2025-02-20 09:35 | XMS_ITS | Encounter Summary ---
Author Organization [facility] Address [address] [place] [phone] Phone Care Team Providers Care Senior Specialist Name Role Phone Yokasta Dunn MD Primary Care Provider [phone] Encounter Details Date Type Department Care Team (Late st Contact Info) Description 07/25/2018 Orders Only [facility] [address] [place] [address] Conversion, Onbase Social History Tobacco Use Types [...] Description 08/06/2025 10:15 AM EST Office Visit [facility] [address] [facility] [address] [place] [address] [place] [address] [place], [place] [phone] Scheduled Orders Name Type Priority Associated Diagnoses Orde r Schedule OUTSIDE LAB SCAN Lab Ordered: 07/25/2018 documented as of this encounter Visit Diagnoses Not on filedocumented in this encounter Care Teams Senior Specialist Relationship Specialty Start Date End Date Yokasta Dunn MD [facility] [address] [place] [id number] PCP - General 12/22/17 documented as of this encounter
--- OUTSIDE RECORDS SUMMARY | 2025-02-20 09:35 | XMS_ITS | Encounter Summary ---
Author Organization [facility] Address [address] [place] [address] Care Team Providers Care Meter Calibrator Name Role Phone Polina Dunn [facility] Primary Care Provider [phone] Michael Gipson MD Unavailable [phone] Source Comments In the event this information is protected by the Federal Confidentiality of Alcohol and Drug AbusePatient Records regulations: The Federal rules restrict any use of the information to criminally investigate or prosecute any alcohol or drug abuse patient.[facility] Reason for Visit * Reason Comments Orders Encounter Details Date Type Department Care Team (Late st Contact Info) Description 07/11/2024 Telephone Hematology/Oncology [address] [place] [address] [place] [address] Nica Rankin, RN Orders Social History Tobacco Use Types Packs/Day Years Used Date Smoking Tobacco: Never Smokeless Tobacco: Never Alcohol Use Standard Drinks/Week Comments Never 0 (1 standard drink = 0.6 oz pur e alcohol) Area Deprivation Index Answer Date Philip rded National Score (1-100), lower number is lower ri sk 63 02/10/2023 State Score (1-10), lower number is lower risk 4 02/10/2023 Data from: https://www.neighborhoodatlas.medicine.[facility].edu/. Last address used for calculation [address] [place] [address] 02/10/2023 Sex and Gender Information Value Date Recorded Sex Assigned at Not on file Legal Sex Male 12:48 PM EDT Gender Identity Not on file Sexual Orientation Not on file documented as of this encounter Miscellaneous Notes * Telephone Encounter - Nica Rankin RN - 07/11/2024 1:57 PM EDT Patient is scheduled for scan on 07/20. An updated creatinine is needed prior to scan. Please sign pended cre order. Thanks! Nica Rankin RN documented in this encounter Plan of Treatment Upcoming Encounters Date Type Department Care Team (Late st Contact Info) Description 01/23/2026 10:00 AM EDT Office Visit Urology [address] [address] Keegan Garcia MD [address] [place] [address] cysto documented as of this encounter Visit Diagnoses Not on filedocumented in this encounter Care Teams Meter Calibrator Relationship Specialty Start Date End Date Polina Dunn RP [address] [place] [address] PCP - General Family Medicine 09/14/22 Michael Gipson MD [address] [place] [address] Referring Cardiology 09/22/22 documented as of this encounter
--- OUTSIDE RECORDS SUMMARY | 2025-02-20 09:35 | XMS_ITS | Encounter Summary ---
Author Organization [facility] Address [address] [place] [address] Phone Care Team Providers Care Education Coordinator Name Role Phone Yokasta Dunn MD Primary Care Provider [phone] Encounter Details Date Type Department Care Team (Late st Contact Info) Description 11/11/2024 Scanned Document [facility] [address] [place] [id number] Scanning, Generic Provider Social History Tobacco Use Types Packs/Day Years Used Date Smoking Tobacco: Former Cigarettes Passive Smoke Exposure: Never Smokeless Tobacco: Never [facility] Utilities Answer Date Recorded In the past 12 months has [employer], gas, oil, or water [employer] threatened to shut off services in your [...] and Family Not on file 10/25/2024 Attends Congregational Services Not on file 10/25 Active Member [...] any time in the past 12 m [facility], were you homeless or living in a detention (including now)? No 10/25/2024 Sex and Gender Information Value Date Recorded Sex Assigned at Not on file Legal Sex Male 3:58 PM EST Gender Identity Not on file Sexual Orientation Not on file documented as of this encounter Plan of Treatment Upcoming Encounters Date Type Department Care Team (Late st Contact Info) Description 08/06/2025 10:15 AM EST Office Visit [facility] [address] [place] [address] [place] [address] [place] [address] documented as of this encounter Visit Diagnoses Not on filedocumented in this encounter Additional Health Concerns Assessment Noted Time A fall risk assessment has been complete d for the patient 08/23/2023 11:10 AM EST documented as of this encounter Care Teams Education Coordinator Relationship Specialty Start Date End Date Yokasta Dunn MD [address] [place] [address] PCP - General 12/22/17 documented as of this encounter
--- OUTSIDE RECORDS SUMMARY | 2025-02-20 09:35 | XMS_ITS | Clinical Summary ---
Author Organization [facility] Address [address] [place] [id number] Care Team Providers Care Edger Runner Name Role Phone Polina Dunn [facility] Primary Care Provider [phone] Michael Gipson MD Unavailable [phone] Allergies Active Allergy Reactions Criticality Noted Date Comments Penicillins Intolerance 07/23/2015 Medications atorvastatin (LIPITOR) 80 mg tablet Take 80 mg by mouth once daily. 2 Active furosemide (LASIX) 20 mg tablet TAKE 1 TABLET BY MOUTH ON TUESDAY, TUESDAY, AND Tuesday 2 Active latanoprost (XALATAN) 0.005 % ophthalmic solution 1 Drop. 2 Active lisinopril 2.5 mg tablet TAKE 1 TABLET BY NASOGASTRIC TUBE ONCE A DAY 2 Active metoprolol tartrate, short acting, (LOPRESSOR) 25 mg tabletIndicatio ns:Pain in right hip,DDD (degenerative disc disease), lumbar Take 1 tablet by mouth twice daily. 60 tablet 3 2 Active apixaban (ELIQUIS) 2.5 mg tab(s) Take 1 tablet by mouth q 12 HR. 3 Active Additional Information Patient not taking.Reason: Discontinued by Another Health Care Provider, Reported on 01/05/2024 clopidogrel (PLAVIX) 75 mg tabletIndicatio ns:DDD (degenerative disc disease), lumbar,Pain in right hip Take 1 tablet by mouth once daily. 3 Active rosuvastatin (CRESTOR) 10 mg tablet Take 10 mg by mouth once daily. Active finasteride (PROSCAR) 5 mg tablet Take 1 tablet by mouth once daily. 90 tablet 3 4 Active tamsulosin (FLOMAX) 0.4 mg Take 1 capsule by mouth once daily. 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 SSS (sick sinus syndrome) 10/01/2022 Assessment & Plan (10/01/2022 8:25 PM EST): Assessment: s/p PPM in 2010 with RA/RV leads. No device check at [facility] before. - Will get same day device clinic appt CAD (coronary artery disease) 09/17/2022 Overview (09/17/2022): Comment on above: CAD I25.10 Assessment & Plan (10/01/2022 11:40 AM EST): Assessment: patient underwent CABGx3 with concurrent MVR and left atrial appendage ligation 05/2022 after presenting with angina and dyspnea and being found to have multivessel disease. No records of this surgery/hospitalization/TTE/LHC available. However he was evaluated by [facility] (Dr. Urban) who cleared him for his upcoming procedure from a cards perspective -Will request records from OSH for hospitalization, imaging, and op report - this will NOT preclude the patient from having his procedure Congestive heart failure 09/17/2022 Pacemaker 09/17/2022 S/P CABG (coronary artery bypass graft) 09/17/20 22 Schatzki's ring of distal esophagus 09/17/2022 Assessment & Plan (10/01/2022 8:26 PM EST): Assessment: previously with difficulty swallowing necessitating esophageal dilation with significant improvement. No aspiration or reflux A-fib 06/14/2022 Assessment & Plan (10/01/2022 8:29 PM EST): Assessment: chronic AF on eliquis 2.5mg BID. S/p LA appendage ligation during CABG 05/2022. -08/2022 ECG with AF and paced rhythm. -Hold eliquis 48h prior to procedure Non-ST elevation (NSTEMI) myocardial infarction 05/28/2022 Anemia in other chronic diseases classified else where 01/06/2022 Assessment & Plan (10/01/2022 11:46 AM EST): Assessment: 03/2022 OSH CBC with Hb ~10. -CBC ordered by urology Degeneration of lumbar intervertebral disc 10/24 Spinal stenosis, lumbar tressa on, without neurogenic claudication 10/24/2015 Resolved Problems Problem Noted Date Diagnosed Date Resolved Date Chronic kidney disease, unspecified 04/30/2022 10/01/2022 Assessment & Plan (10/01/2022 11:47 AM EST): Assessment: Only available BMP from OSH 03/2022 showed normal SCr 1.03. -BMP ordered by primary Encounters Date Type Department Care Team Description 01/17/2025 9:45 AM EDT Office Visit Urology [address] [place] [id number] Weight, MD Keegan History of bladder cancer (Primary Dx) 01/17/2025 Travel from Last 3 Months Social History Tobacco Use Types Packs/Day Years Used Date Smoking Tobacco: Never Smokeless Tobacco: Never Tobacco Cessation:Counseling Given: No Alcohol Use Standard Drinks/Week Comments Never 0 (1 standard drink = 0.6 oz pur e alcohol) Area Deprivation Index Answer Date Philip rded National Score (1-100), lower number is lower ri sk 63 02/10/2023 State Score (1-10), lower number is lower risk 4 02/10/2023 Data from: https://www.neighborhoodatlas.medicine.[facility].edu/. Last address used for calculation [address] 02/10/2023 Sex and Gender Information Value Date Recorded Sex Assigned at Not on file Legal Sex Male 12:48 PM EDT Gender Identity Not on file Sexual Orientation Not on file Last Filed Vital Signs Vital Sign Reading Time Taken Comments Blood Pressure 130/79 10/19/2022 4:21 PM EST Pulse 59 10/19/2022 4:21 PM EST Temperature 37 C (98.6 F) 10/08/2022 3:21 PM EST Respiratory Rate 16 10/08/2022 3:21 PM EST Oxygen Saturation 95% 10/08/2022 3:21 PM EST Inhaled Oxygen Concentration - - Weight 72.3 kg (159 lb 6.4 oz) 10/19/2022 4:21 P M EST Height 182.9 cm (6') 10/19/2022 4:21 PM EST Body Mass Index 21.62 10/19/2022 4:21 PM EST Plan of Treatment Upcoming Encounters Date Type Department Care Team (Late st Contact Info) Description 01/23/2026 10:00 AM EDT Office Visit Urology [address] [phone] Weight, MD Keegan [address] [place] [address] cysto Health Maintenance Due Date Last Done Comments Anxiety Screening 02/21/1960 Depression Screening 02/21/1960 LDL Cholesterol 02/21/1960 DTaP,Tdap,Td Vaccine (1 - Tdap) 1961 Shingrix Vaccine (2 of 3) 04/21/2015 02/24/2015 RSV Vaccine (1 - 1-dose 75+ series) 2017 Covid-19 Vaccine (5 - 2023-2 5 season) 2024 02/26/2022, 08/10/2021, 11/18/2020, Additional history exists Advance Directive Discussion 09/26/2024 Diabetes Screening 11/16/2027 11/16/2024, 0 10/31/2024, 10/30/2024, Additional history exists Pneumococcal Vaccine: 50+ Completed 2018, 06/21/2019, 06/24/2017, Additional history exists Influenza Vaccine Completed 07/21/2024, , 07/23/2022, Additional history exists Medical Devices Implanted Type Area Snowblower Mechanic Device Identifier Shelf Expiration Date Model / Serial / Lot [id number]-[id number] Assurity [id number] -2021 Implanted:08/26 (Quantity not on file) Pacemaker [facility] ELIAS [id number] [employer] MRI / [id number] / Procedures Procedure Name Priority Date/Time Associated Diagnosis Comments COMPREHENSIVE METABOLIC PANEL Routine 10/01/2022 11:51 AM EST Malignant neoplasm of urinary bladder, unspecified site (HCC) Atrial fibrillation, unspecified type (HCC) Presence of cardiac defibrillator Stage 3 chronic kidney disease, unspecified whether stage 3a or 3b CKD (HCC) from Last 3 Months or Most Recently Relevant to Health Maintenance Results * (ABNORMAL) COMP METABOLIC PANEL (10/01/2022 11:51 AM EST) Pathologist [facility] Protein, Total 7.0 6.3 - 8.0 g/dL 10/01/2022 8:16 PM EST [facility] Albumin 3.8(L) 3.9 - 4.9 g/dL 10/01/2022 8:16 PM EST [facility] Calcium, Total 9.1 8.5 - 10.2 mg/dL 10/01/2022 8:16 PM EST [facility] Bilirubin, Total 0.5 0.2 - 1.3 mg/dL 10/01/2022 8:16 PM EST [facility] Alkaline Phosphatase 100 38 - 113 U/L 10/01/2022 8:16 PM EST [facility] AST 28 14 - 40 U/L 10/01/2022 8:16 PM EST [facility] ALT 22 10 - 54 U/L 10/01/2022 8:16 PM EST [facility] Glucose 97 74 - 99 mg/dL 10/01/2022 8:16 PM EST [facility] Comment: The [place] Diabetes Association (ADA) provides guidance for cutoff values for fasting glucose and random glucose. The ADA defines fasting as no caloric intake for at least 8 hours. Fasting plasma glucose results between 100 to 125 mg/dL indicate increased risk for diabetes (prediabetes). Fasting plasma glucose results greater than or equal to 126 mg/dL meet the criteria for diagnosis of diabetes. In the absence of unequivocal hyperglycemia, results should be confirmed by repeat testing. In a patient with classic symptoms of hyperglycemia or hyperglycemic crisis, random plasma glucose results greater than or equal to 200 mg/dL meet the criteria for diagnosis of diabetes. Reference: Standards of Medical Care in Diabetes 2016, [place] Diabetes Association. Diabetes Care. 2016.39(Suppl 1). BUN 13 9 - 24 mg/dL 10/01/2022 8:16 PM EST [facility] Creatinine 0.86 0.73 - 1.22 mg/dL 10/01/2022 8:16 PM EST [facility] Sodium 140 136 - 144 mmol/L 10/01/2022 8:16 PM EST [facility] Potassium 4.9 3.7 - 5.1 mmol/L 10/01/2022 8:16 PM EST [facility] Chloride 106(H) 97 - 105 mmol/L 10/01/2022 8:16 PM EST [facility] CO2 23 22 - 30 mmol/L 10/01/2022 8:16 PM EST [facility] Anion Gap 11 9 - 18 mmol/L 10/01/2022 8:16 PM EST [facility] Estimated Glomerular Filtration Rate 88 >=60 mL/min/1.7 3m 10/01/2022 8:16 PM EST [facility] Comment:Estimated Glomerular Filtration Rate (eGFR) is calculated using the 2020 CKD-EPI creatinine equation. This equation utilizes serum creatinine, sex, and age as parameters. The creatinine assay has traceable calibration to isotope dilution- mass spectrometry. Refer to KDIGO guidelines for clinical interpretation. In patients with unstable renal function, e.g. those with acute kidney injury, the eGFR may not accurately reflect actual GFR. Blood BLOOD SPECIMEN / Unknown Venipuncture / Unknown 10/01/2022 11:51 AM EST 10/01/2022 11:51 AM EST us Keegan Garcia MD LABORATORY Final Resu lt [facility] [address] [address], from Last 3 Months or Most Recently Relevant to Health Maintenance Insurance MEDICARE MEDICARE SUPPLEMENT Care Teams Edger Runner Relationship Specialty Start Date End Date Polina Dunn RPh [address] [place] [address] PCP - General Family Medicine 09/14/22 Michael Gipson MD [address] [place] [address] Referring Cardiology 09/22/22
--- OUTSIDE RECORDS SUMMARY | 2025-02-20 09:35 | XMS_ITS | Encounter Summary ---
Author Organization [facility] Address [address] [place] [address] Phone Care Team Providers Care Parts Delivery Driver Name Role Phone Yokasta Dunn MD Primary Care Provider [phone] Encounter Details Date Type Department Care Team (Late st Contact Info) Description 01/18/2024 Scanned Document [facility] [address] [place] [address] [place] [address] [place], [place] [id number] Social History Tobacco Use Types Packs/Day Years [...] Description 08/06/2025 10:15 AM EST Office Visit [facility] [address] [place] [phone] [place] [address] [place] [address] documented as of this encounter Visit Diagnoses Not on filedocumented in this encounter Additional Health Concerns Assessment Noted Time A fall risk assessment has been complete d for the patient 08/23/2023 11:10 AM EST documented as of this encounter Care Teams Parts Delivery Driver Relationship Specialty Start Date End Date Yokasta Dunn MD [address] [place] [address] [place] [phone] PCP - General 12/22/17 documented as of this encounter
--- NOTE | 2025-02-20 09:39 | XR_ITS ---
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 The lungs are hyperinflated. Minimal basilar atelectasis or scarring is noted. There is no additional consolidation, effusion or pneumothorax. The heart is top normal in size. The hilar and mediastinal silhouettes are within normal limits. There is no vascular congestion. The visualized bony structures are osteopenic. There is dextroscoliotic curvature and minor endplate spurring at the spine. XR/XR chest 2V IMPRESSION: NO ACUTE CARDIOPULMONARY ABNORMALITY. Impression dictated by: Selena Healy M.D. 02/20/2025 10:36 AM Dictation Location: [place] [address] Electronically authenticated by: [id number] Y Date: 02/20/2025 10:36
== END 2025-02-20 09:29 | disposition home or self-care (01) ==
LOC: RAD 09:31
PROVIDERS: PCP Family Medicine; Visit Provider Family Medicine
DX: R13.10 Dysphagia, unspecified (principal); Z95.0 Presence of cardiac pacemaker
CPT/HCPCS: 71046

== ENCOUNTER 2025-07-10 14:13 | Outpatient (OUT) | payer MEDICARE, OTHER, SELFPAY ==
--- OUTSIDE RECORDS SUMMARY | 2025-07-10 14:29 | XMS_ITS | CCD ---
Author Organization [facility] CliniSyms Care Team Providers Care Power System Dispatcher Name Role Phone Ian Manny Unavailable Unavailable Mylene Dunn Unavailable Unavailable Lavaceu, Manny Unavailable Unavailable Rhett Hsu R Unavailable Blayne Kumar Unavailable Unavailable Torres Neil Unavailable Unavailable Blayne Santiago Primary Care Provider Mylene Dunn Unavailable Unavailable Unavailable MYLENE DUNN Primary Care Physician [phone] MYLENE DUNN Primary Care Unavailable ORESTES SCHWARTZ Attending Unavailable LANA, MOHAMAD Admitting Unavailable MYLENE DUNN Referring Unavailable MYLENE DUNN Primary Care Unavailable ROSE MARIE LAMBERT Attending Unavailable ROSE MARIE LAMBERT Admitting Unavailable MYLENE DUNN Referring Unavailable MYLENE DUNN Primary Care Unavailable ALGHOTHANI, MOHAMAD Attending Unavailable ALGHOTHANI, MOHAMAD Admitting Unavailable MYLENE DUNN Referring Unavailable ALGHOTHANI, MOHSHAROND Attending Unavailable ALGMIKEANI, MOHAMAD Admitting Unavailable MYLENE DUNN Primary Care Unavailable MYLENE DUNN Referring Unavailable Mylene Dunn E Unavailable Hussian, Florencio Unavailable Unavailable Abu-Florencio, Дмитрий Unavailable Unavailable Cardiac Surgery Unavailable Unavailable Lavertu, Manny Unavailable Polina Dunn Primary Care Provider [phone] Prabhjot Gipson MD Unavailable Dr. Mylene Dunn Primary Care Unav ailable Dr. Prabhjot Gipson Attending U jennifer GONZALEZ ., DR TAVAREZ Admitting Unavailable FADI ., DR TAVAREZ Attending Unavailable DR RORO LINCOLN Primary Care Unavailable LELAND ., DR ROBERTS Consulting Unavailable FAWWAD, TODD H Attending Unavailable FAWWAD, TODD H Admitting Unavailable DUNN, DR MYLENE Sylvester Primary Care Unavailable ZIEBJAY, DR SARAH [place] Consulting Unavailable PAY ., DR VANN Consulting Unavailable HUNTER ., CHARLEEN Consulting Unavailable FAWWAD, TODD H Consulting Unavailable GONZALEZ ., DR TAVAREZ Admangel luis Unavailable GONZALEZ ., DR TAVAREZ Attending Unavailable DUNN, DR MYLENE Sylvester Primary Care Unavailable GONZALEZ ., DR TAVAREZ Consulting Unavailable MOE, DR SARAH [place] Consulting Unavailable LISSA BARRIGA Consulting Unavailable LATONIA, DR READ Primary Care Unavailable PAY ., DR VANN Admitting Unavailable PAY ., DR VANN Attending Unavailable PAY ., DR VANN Consulting Unavailable MARIBEL, RENZO Consulting Unavailable MONTY, ADAN Consulting Unavailable ALYX, DR JE [place] Consulting Unavailable RODRIGUEZ, DR JE Cuba Attending Unavailable RODRIGUEZ, DR JE [place] Admitting Unavailable DUNN, DR MYLENE Sylvester Primary Care Unavailable DUNN, DR MYLENE Sylvester Primary Care Unavailable GONZALEZ ., DR TAVAREZ Attending Unavailable GONZALEZ ., DR TAVAREZ Admitting Unavailable GONZALEZ ., DR TAVAREZ Admitting Unavailable GONZALEZ ., DR TAVAREZ Attending Unavailable LATONIA, DR READ Primary Care Unavailable MISC, DR BOTELLO Consulting Unavailable VIDHI, MARY Admitting Unavailable MARY ELY Attending Unavailable DUNN, DR MYLENE Sylvester Primary Care Unavailable MARY ELY Consulting Unavailable MISC, DR BOTELLO Consulting Unavailable DUNN, DR MYLENE Sylvester Primary Care Unavailable MISC, DR BOTELLO Attending Unavailable MISC, DR BOTELLO Admangel luis Unavailable GONZALEZ ., DR TAVAREZ Admangel luis Unavailable GONZALEZ ., DR TAVAREZ Attending Unavailable DUNN, DR MYLENE Sylvester Primary Care Unavailable GONZALEZ ., DR TAVAREZ Consulting Unavailable VIDHI, MARY Admitting Unavailable VIDHIVELASQUEZA Attending Unavailable DUNN, DR MYLENE Sylvester Primary Care Unavailable MARY ELY Consulting Unavailable GONZALEZ ., DR TAVAREZ Consulting Unavailable DUNN, DR MYLENE Sylvester Primary Care Unavailable GONZALEZ ., DR TAVAREZ Attending Unavailable GONZALEZ ., DR TAVAREZ Admangel luis Unavailable ZIEBER, DR SARAH [place] Consulting Unavailable GONZALEZ ., DR TAVAREZ Consulting Unavailable DUNN, DR MYLENE Sylvester Primary Care Unavailable GONZALEZ ., DR TAVAREZ Attending Unavailable GONZALEZ ., DR TAVAREZ Admangel luis Unavailable MARKER ., DR DURAND Consulting Unavailable MARKER ., DR DURAND Attending Unavailable MARKER ., DR DURAND Admitting Unavailable DUNN, DR MYLENE Sylvester Primary Care Unavailable GONZALEZ ., DR TAVAREZ Admitting Unavailable GONZALEZ ., DR TAVAREZ Attending Unavailable LATONIA, DR READ Primary Care Unavailable GONZALEZ ., DR TAVAREZ Consulting Unavailable GONZALEZ ., DR TAVAREZ Admitting Unavailable GONZALEZ ., DR TAVAREZ Attending Unavailable DUNN, DR MYLENE Sylvester Primary Care Unavailable NEVIN FLORES Consulting Unavailable NICA SAMAYOA Consulting Unavailable GONZALEZ ., DR TAVAREZ Consulting Unavailable DUNN, DR MYLENE Sylvester Primary Care Unavailable GONZALEZ ., DR TAVAREZ Attending Unavailable GONZALEZ ., DR TAVAREZ Admitting Unavailable ESTEFANIA MAURICIO Attending Unavailable ESTEFANIA MAURICIO Admitting Unavailable ESTEFANIA MAURICIO Consulting Unavailable MONA, DR MYLENE Sylvester Primary Care Unavailable [facility] [place] Primary Care Provider Mylene Dunn Unavailable Roro Lincoln Unavailable MD Mylene Dunn Primary Care Provider MD Mylene Dunn Attending Provider [facility] [place] Primary Care Provider MD Mylene Dunn Primary Care Provider MD Mylene Dunn Attending Provider [phone] [facility] [place] Primary Care Provider Prabhjot Gipson MD Unavailable Mylene Dunn MD Primary Care Provider Ray Durbin Attending Unavailable Ray Durbin Admitting Unavailable [facility] [place] Cardio, XXXX Consulting Unavailable NKANSAH-AMANKRA, AREN Consulting Unavail able NKANSAH-AMANKRA, AREN Consulting Unavail able NKANSAH-AMANKRA, AREN Consulting Unavail able NKANSAH-AMANKRA, AREN Consulting Unavail able NKANSAH-AMANKRA, AREN Consulting Unavail able NKANSAH-AMANKRA, AREN Consulting Unavail able Tayla Self Consulting Unavailable MD Tayla Self Consulting Unavailable Tayla Self Consulting Unavailable [place], Sarah Consulting Unavailable [place], Sarah Consulting Unavailable [place], Sarah Consulting Unavailable [place], Sarah Consulting Unavailable [place], Sarah Consulting Unavailable [place], Sarah Consulting Unavailable [place], Sarah Consulting Unavailable [place], Sarah Consulting Unavailable [place], Sarah Consulting Unavailable Liset Dias Consulting Unavailable Liset Dias Consulting Unavailable Liset Dias Consulting Unavailable MD Sarah Monroy Consulting Unavailable Arun [facility] Liset Oneal Consulting Jo Ann MD AREN Prince Consulting Unav ailGrace Marsh Attending Unavailable MD AREN SALGUERO Consulting Unav ailable Ángel Ely Admitting Unavailable NKANSAH-AMANKRA, AREN Consulting Unavail able NKANSAH-AMANKRA, AREN Consulting Unavail able NKANSAH-AMANKRA, AREN Consulting Unavail able NKANSAH-AMANKRA, AREN Consulting Unavail able NKANSAH-AMANKRA, AREN Consulting Unavail able [place], Sarah Consulting Unavailable [place], Sarah Consulting Unavailable [place], Sarah Consulting Unavailable [place], Sarah Consulting Unavailable [place], Sarah Consulting Unavailable [place], Sarah Consulting Unavailable [place], Sarah Consulting Unavailable [place], Sarah Consulting Unavailable [place], Sarah Consulting Unavailable [facility] [place] Cardio, XXXX Consulting Unavailable Mylene Dunn MD Primary Care Provider Monty Rubio DO Emergency Provider Mylene Dunn MD Primary Care Provider Orestes Guthrie MD Admit Provider Orestes Guthrie MD Attending Provider Mylene Dunn MD Primary Care Provider Ric Rebollar MD Other Provider Miladys Shields MD Other Provider Nicole SMITHC, Rossy Allen Other Provider Unavail able Godwin Gordillo DO Other Provider Haroldo Ko MD Other Provider Darline DO, Selvin A Other Provider Rahul Barboza MD Attending Provider Rachel Velazquez MD Other Provider Kayden Odom MD Other Provider Curtis GARLAND, Jen Other Provider [phone] Marni DO, [place] L Other Provider Jorge Clifton MD Other Provider Rodríguez MAHONEY, Amadou Other Provider Monty Rubio DO Emergency Provider Mona MAHONEY, Mylene Sylvester Primary Care Provider [place] MAHONEY, Orestes Admit Provider Ric Rebollar MD Other Provider Cornelius MAHONEY, Miladys [place] Other Provider Nicole HAND DRAWER IN HELPER-C, Rossy Allen Other Provider Unavail able Godwin Gordillo DO Other Provider Maikel MAHONEY, Haroldo Gonzalez Other Provider Selvin Gregorio DO Other Provider Rahul Barboza MD Attending Provider [phone] Rachel Velazquez MD Other Provider Kayden Odom MD Other Provider Curtis GARLAND, Jen Other Provider Marni CHOE, [place] L Other Provider Jorge Clifton MD Other Provider Rodríguez MAHONEY, Amadou Other Provider Jorge Clifton MD Admit Provider [phone] Jorge Clifton MD Attending Provider Izabela GARZA, Gabriela Other Provider Unavailable Karie RN, Ольга Other Provider Unavailable Daniela RN, Aracelis Other Provider Unavailable Rosi GARZA, Stacey Other Provider Unavailable Brennen GARZA, Mariya Other Provider Unavailable Lucia Orlando MD Other Provider Aldair Rivera DO Other Provider Jose Alfredo Sorenson MD Other Provider Vicente Acevedo DO Other Provider Jad MAHONEY, Blayne Other Provider [phone] Christine Goodson MD Other Provider Jason Vickers DO Other Provider Claus MAHONEY, Gt Other Provider Unavailable Re Rivera APRN Other Provider Rell MAHONEY, Sebastian Other Provider [phone] Sylvain Hurtado MD Other Provider Elizabeth Holguin MD Other Provider Unavailable Isaura Pepper MD Other Provider Jason Medina DO Other Provider [phone] Moises Samson MD Other Provider Wayne Rowley MD Other Provider Wero HAND DRAWER IN HELPER-C, Lesvia Bazzi Other Provider Andrew Sultana APRN Other Provider Unavailable J Carlos Wiley MD Other Provider Fuad Thomas MD Other Provider Hemal Sharma MD Other Provider Bong Patel MD Other Provider Unavailable Carlos Eduardo Monreal MD Other Provider Arabella Rae DO Other Provider Liam Tran DO Other Provider Pratibha Wright APRN Other Provider Edy Hoyt DO Other Provider [phone] Britta MAHONEY, Dylan Gonzalez Other Provider Ninfa Rodriguez APRN Other Provider Jessi GARLAND, Lauren Sheriff Other Provider [phone] Emeli MAHONEY, Kaila Other Provider Car MAHONEY, Blayne Bazzi Other Provider [phone] Ibarra DO, Eric Saunders Other Provider Dion Chester Other Provider Zachary MAHONEY, Bryan Napoles Other Provider Michael MAHONEY, Rob Whitlock Other Provider Guadalupe GARLAND, Lissa Other Provider [place] MAHONEY, Orestes Other Provider Amber MAHONEY, Aris Other Provider Martínez MAHONEY, Kayden Swain Other Provider Antwan MAHONEY, Gt Subramanian Other Provider Rahul Barboza MD Other Provider Myriam GARLAND, Glory Giron Other Provider [phone] Jann Cedillo APRN Other Provider Celestina GARZA, Destinee Other Provider Unavailable Chris Arce DO Other Provider Godwin Gordillo DO Attending Provider [phone] Ernesto Barros MD, Heber Unavailable UnavailOrestes Kessler Admitting Unavailable Mylene Dunn Primary Care Unavailable Rahul Barboza Attending Unavailable Ric Rebollar Consulting Unavailable Miladys Shields Consulting Unavailable Rossy Rivera Consulting Unavailable Godwin Gordillo Consulting Unavailable Haroldo Ko II Consulting UnavailSelvin Veronica Consulting Unavailable Rachel Velazquez Consulting Unavailable Kayden Odom Consulting Unavailable Jen Acevedo Consulting Unavailable Profirio Grider Jr Consulting UnavailJorge Akhtar Consulting UnavailAmadou Arambula Consulting Unavailable Mylene Dunn Primary Care Unavailable Mylene Dunn Attending Unavailable Mylene Dunn Admitting Unavailable Godwin Gordillo Attending Unavailable Mylene Dunn Primary Care Unavailable Godwin Gordillo Admitting Unavailable Jorge Clifton Admitting Unavaila Mylene Mcrae Primary Care Unavailable Jorge Clifton Attending Unavaila Gabriela Junior Consulting Unavailable Ольга Tiwari Consulting Unavailable Aracelis Suarez Consulting Unavailable Stacey Aranda Consulting Unavailable Mariya Hutton Consulting Unavailable Lucia Orlando Consulting Unavailable Aldair Rivera Consulting Unavailable Jose Alfredo Sorenson Consulting Unavailable Vicente Acevedo Consulting UnavailBlayne Bearden Consulting Unavailable Christine Goodson Consulting Unavailable Jason Vickers Consulting Unavailable Gt Devlin Consulting Unavailable Re Rivera Consulting UnavailSebastian Juarez Consulting Unavailable Sylvain Hurtado Consulting Unavailable Elizabeth Holguin Consulting Unavailable Isaura Pepper Consulting Unavailable Jason Medina Consulting Unavailable Moises Samson Consulting Unavailable Wayne Rowley Consulting Unavailable Lesvia Conteh Consulting Unavailable Andrew Sultana Consulting Unavailable DoJ Carlos zheng Consulting Unavailab Fuad Desai Consulting Unavailable Hemal Sharma Consulting Unavailable Bong Patel Consulting Unavailable Carlos Eduardo Monreal Consulting Unavailable Arabella Rae Consulting Unavailable Liam Tran Consulting Unavailable Pratibha Wright Consulting Unavailable Edy Hoyt Consulting Unavailable DaromaDylan cuba Consulting Unavailable Ninfa Rodriguez Consulting Unavailable Lauren Hutchinson Consulting Unavailable Kaila Sainz Consulting Unavailable Blayne Yoon Consulting Unavailable Eric Ibarra Consulting Unavailable Chester Ashley Consulting Unavailable Bryan Sharma Consulting Unavailable Rob Rodriguez Consulting Unava alexable Lissa Butcher Consulting Unavailable Orestes Guthrie Consulting Unavailable Aris Clark Consulting Unavailable Kayden Soliz Consulting Unavailable Gt Moncada Consulting Unavailable Rahul Barboza Consulting Unavailable Glory Miguel Consulting Unavailable Bolzaruthy-Tereza Nicofelix Consulting Unavaila Destinee Monahan Consulting Unavailable Chris Arce Consulting Unavailable Ric Martinez Admitting Unavailable Ric Martinez Attending Unavailable NONE, XXXX Referring Unavailable Ric Martinez Admitting Unavailable Ric Martinez Attending Unavailable NONE, XXXX Referring Unavailable Prabhjot Gipson Admitting Unavaila Prabhjot Mcconnell Attending Unavaila Prabhjot Mcconnell Referring Unavaila ble LAVERTU, MANNY Admitting Unavailable LAVERTU, MANNY Attending Unavailable JENNIFERU, MANNY Referring Unavailable Prabhjot Gipson Admitting Unavaila ble Prabhjot Gipson Attending Unavaila ble NONE, XXXX Referring Unavailable LAVERTU, MANNY Attending Unavailable DUNN, MYLENE E Primary Care Unavailable LAVERTU, MANNY Attending Unavailable MYLENE DUNN Primary Care Unavailable Prabhjot Gipson MD Unavailable WEIGHT, CHRISTOPHER Attending Unavailable WEIGHT, CHRISTOPHER Referring Unavailable DUNN, POLINA Primary Care Unavailable WEIGHT, CHRISTOPHER Attending Unavailable DUNN, POLINA Primary Care Unavailable Emeli MAHONEY, Kaila Other Provider Unavailable Borisov COMPRESSED YEAST SUPERVISOR, Lissa Other Provider Unavailable Mylene Dunn MD Primary Care Provider [phone] Mylene Dunn MD Primary Care Provider [phone] Mylene Dunn MD Attending Provider Godwin Gordillo DO Attending Provider Ernesto Barros MD, Heber Unavailable Unavailerika Moreno MD, Doctor Unavailable Unavailable JASON SOLIZ Admitting Unavailable ALDAIR RIVERA Referring Unavailable DUNN, MYLENE E Primary Care Unavailable J CARLOS PITTS Attending Unavailable J CARLOS PITTS Consulting Unavailable MARY BLOUNT Attending Unavailable DUNN, MYLENE E Primary Care Unavailable LAVERTU, MANNY Referring Unavailable DUNN, MYLENE E Primary Care Unavailable DUNN, MYLENE E Primary Care Unavailable MARY BLOUNT Attending Unavailable DUNN, MYLENE E Primary Care Unavailable MARY BLOUNT Referring Unavailable DUNN, MYLENE E Primary Care Unavailable Mylene Dunn MD Primary Care Provider Mylene Dunn MD Attending Provider PRABHJOT GIPSON Admitting Unavaila PRABHJOT Mcconnell Attending Unavaila PRABHJOT Mcconnell Referring Unavaila ble MYLENE DUNN Admitting Unavailable MYLENE DUNN Attending Unavailable MONA, MYLENE Referring Unavailable MYLENE DUNN Attending Unavailable MONA, MYLENE Referring Unavailable Ric Martinez Admitting Unavailable Ric Martinez Attending Unavailable NONE, XXXX Referring Unavailable PRABHJOT GIPSON Admitting UnavailPRABHJOT Andrews. Attending UnavailPRABHJOT Andrews Referring UnavailMylene Turcios MD Primary Care Provider Mylene Dunn MD Attending Provider JASON VILLATORO Referring Unavailable VILLATORO, JASON Saunders Attending Unavailable VILLATORO, JASON Saunders Referring Unavailable RUTHY, FADI Keaton Attending Unavailable HALIMA PONCE Attending Unavailable IRVING, JASON Saunders Attending Unavailable HALIMA PONCE Attending Unavailable RUTHY FADI D Attending Unavailable RUTHY, FADI D Referring Unavailable Al Shweiki, Heber Attending Unavailable Al Shweiki, Heber Referring Unavailable Corporate, Doctor Attending Unavailable Al Shweiki, Heber Attending Unavailable Al Shweiki, Heber Referring Unavailable Al Shweiki, Heber Attending Unavailable Al Shweiki, Heber Referring Unavailable Dixon Burgess Jr Attending Unavailable Dixon Burgess Jr Referring Unavailable Al Shweiki, Heber Attending Unavailable Je Musa Referring Unavailable Allergies Allergy Classification Reported Allergen(s) Allergy Type Date of Onset Reaction(s) Facility Penicillins (antibiotic) (3 sources) Penicillins; Translations: [Penicillins] Drug Allergy 07-23-20 15 Intolerance [facility] Work Phone: Quinolones (antibiotic) (1 source) Ciprofloxacin Drug Allergy 07-23-20 15 Diarrhea [facility] Work Phone: (20 sources) Penicillins; Translations: [Penicillins] Allergy to drug (finding) 01-02-20 11 Unknown, Unknown Reaction MG-Otolaryngolo [facility] Work Phone: (20 sources) Ciprofloxacin; Translations: [ciprofloxacin] Drug Allergy 01-02-20 11 Diarrhea, Other, Unknown [facility] (20 sources) Penicillin; Translations: [Allergy to penicillin (disorder)] Drug allergy [facility] (2 sources) Ciprofloxacin Drug Allergy 10-17-19 11 [facility] (2 sources) Penicillins Drug allergy (disorder) 10-17-19 11 [facility] (1 source) Ciprofloxacin Drug Allergy Unknown [facility] (20 sources) Penicillins Drug Allergy 01-02-20 11 Intolerance, GI intolerance, Hives, Unknown, Other [facility] (20 sources) Penicillin V Drug Allergy 10-07-19 24 Unknown, Unknown Reaction [facility] (20 sources) gabapentin; Translations: [GABAPENTIN] Drug Allergy 09-22-20 17 Unknown [facility] Comment on above: Onset Date: 09/22/20 17 (5 sources) Substance with penicillin structure and antibacterial mechanism of action (substance) Drug allergy Unknown [facility] Other (5 sources) patient allergy list reviewed by nurse or physicia Propensity to adverse reactions 07-12-20 18 Comment:Done [facility] Other (5 sources) Allergies Reconciled Propensity to adverse reactions Unknown [facility] Other (11 sources) Haloperidol; Translations: [haloperidol] Drug Allergy 11-10-19 [facility] (11 sources) LORazepam; Translations: [lorazepam] Drug Allergy 11-10-19 [facility] (11 sources) ziprasidone; Translations: [ziprasidone] Drug Allergy 11-10-19 [facility] (19 sources) Ciprofloxacin; Translations: [CIPROFLOXACIN HCL] Drug Allergy 03-31-20 17 Unknown [facility] (16 sources) Penicillins Drug Intolerance 01-02-20 11 GI intolerance, Hives [facility] (3 sources) Penicillin; Translations: [PENICILLIN] Drug Allergy 03-31-20 17 Unknown [facility] (1 source) gabapentin Drug Allergy 12-08-19 [facility] (1 source) Penicillin Drug Allergy 12-08-19 [facility] (1 source) Penicillins Drug allergy (disorder) 12-08-19 [facility] (5 sources) Penicillins Drug Allergy 01-02-20 11 Hives, Other, GI intolerance, Unknown, Intolerance [facility] Work Phone: Medications Current Medications Medication Drug Class(es) Dates Sig (Normalized) Sig (Original) acetaminophen 32 mg/ml oral solution (20 sources) Start: 03-05-2025 Acetaminophen Childrens 160 MG/5ML solution TAKE 20.3ML BY PEG TUBE ONCE EVERY 6 HOURS FOR 30 DAYS 03/05/2025 Active Start: 11-28-2024 End: 03-05-2025 Acetaminophen 650 mg/20.3 mL suspension Active 650 MG PEG Q6H 2436 30 March 05, 2025 11:01am Complies with drug therapy Start: 11-10-2024 End: 11-28-2024 Acetaminophen 325 mg capsule Discontinued 975 MG FEEDTUBE Three times daily as needed for pain November 10, 2024 1:00am November 28, 2024 2:14pm Start: 10-31-2024 acetaminophen (Tylenol) 325 mg tablet Indications: Osteoarthritis, unspecified osteoarthritis type, unspecified site 3 tablets (975 mg) by nasogastric tube route every 8 hours if needed for mild pain (1 - 3), moderate pain (4 - 6), headaches or fever (temp greater than 38.0 C). 10/31/2024 Active Start: 10-29-2024 End: 11-01-2024 take 975 mg by mouth every eight hours Start: 12-22-2017 take 2 tablets by mo uth every six hours as needed acetaminophen 325 mg oral tablet ; 2 tab(s) by nasogastric tube every 6 hours, As Needed - for pain Quantity: 0 Refills: 0 Ordered: 14-Jun-2022 Alex Panchal Start: 14-Jun-2022 Generic Substitution Allowed take 1-2 tablets by mouth every four hours as needed Acetaminophen 325 MG Oral Tablet TAKE 1 TO 2 TABLETS EVERY 4 HOURS NEEDED Quantity: 108 Refills: 0 Ordered: 15-Jun-2022 DO Active acetaminophen 325 mg / oxyCODONE hydrochloride 5 mg oral tablet (1 source) Opioid Agonist Start: 12-19-2017 take 1 tablet by mouth every four hours Percocet 5/325 oral tablet ; 1 tab(s) orally every 4 hours Quantity: 30 Refills: 0 Ordered: 19-Dec-2017 Tony Cloud Start: 19-Dec-2017 Status: Discontinued Generic Substitution Allowed Comments: Caution federal law prohibits the transfer of this drug to any person other than the person for whom it was prescribed.May cause drowsiness. Alcohol may intensify this effect. Use care when operating dangerous machinery.This prescription cannot be refilled.This product contains acetaminophen. Do not use with any other product containing acetaminophen to prevent possible liver damage.Using more of this medication than prescribed may cause serious breathing problems. Comment on above: Caution federal law prohibits the transfer of this drug to any person other than the person for whom it was prescribed.May cause drowsiness. Alcohol may intensify this effect. Use care when operating dangerous machinery.This prescription cannot be refilled.This product contains acetaminophen. Do not use with any other product containing acetaminophen to prevent possible liver damage.Using more of this medication than prescribed may cause serious breathing problems. albuterol 0.833 mg/ml / ipratropium bromide 0.167 mg/ml inhalation solution (6 sources) Anticholinergic, beta2-Adrenergic Agonist Start: 10-31-2024 ipratropium-albuter oL (Duo-Neb) 0.5-2.5 mg/3 mL nebulizer solution Indications: Pneumonia due to infectious organism, unspecified laterality, unspecified part of lung Take 3 mL by nebulization 4 times a day as needed for wheezing or shortness of breath. 10/31/2024 Active Start: 10-24-2024 apixaban 2.5 mg oral tablet (20 sources) Factor Xa Inhibitor Start: 10-13-2022 take 1 tablet by mouth every twelve hours apixaban (ELIQUIS) 2.5 mg tab(s) Take 1 tablet by mouth q 12 HR. 10/13/2022 Active Start: 12-06-2016 End: 11-10-2024 take 1 tablet by mouth twice daily Apixaban (Eliquis) 5 mg Tablet Discontinued 5 MG PO Twice daily January 09, 2018 12:00am November 10, 2024 5:27pm Start: 12-06-2016 End: 10-08-2022 apixaban (ELIQUIS) 2.5 mg ta b(s) Take by mouth q 12 HR. 0 12/06/2016 10/08/2022 Discontinued Start: 12-06-2016 take 1 tablet by brandi th twice daily Eliquis 2.5 MG Oral Tablet Take 1 tablet twice daily Quantity: 180 Refills: 3 Ordered: 06-Dec-2016 DO Start : 06-Dec-2016 Active Start: 12-06-2016 Eliquis 5 MG O ral Tablet Quantity: 180 Refills: 0 Ordered: 06-Dec-2016 DO Start : 06-Dec-2016 Active End: 12-20-2024 apixaban (Eliquis) 5 MG tabl et every 12 (twelve) hours. 12/20/2024 Discontinued (Therapy completed) Comment on above: Take by mouth q 12 H R. Take 1 tablet by brandi th q 12 HR. aspirin 325 mg oral tablet (20 sources) Platelet Aggregation Inhibitor, Nonsteroidal Anti-inflammatory Drug take 1 tablet by mouth once daily aspirin 325 MG tablet Take 325 mg by mouth Daily Active End: 10-01-2022 take 1 tablet by mouth once daily aspirin, enteric coated (ASPIRIN, ENTERIC COATED) 81 mg EC tablet Indications: Pain in right hip , DDD (degenerative disc disease), lumbar Take 81 mg by mouth once daily. 0 10/01/2022 Discontinued Comment on above: Take 81 mg by mouth once daily. atorvastatin 20 mg oral tablet (20 sources) HMG-CoA Reductase Inhibitor Start: 11-10-2024 End: 04-01-2025 atorvastatin (Lipitor) 20 MG tablet 11/30/2024 Active Start: 06-14-2022 End: 08-05-2023 take 1 tablet by mouth in the morning atorvastatin (Lipitor) 80 MG tablet Take 80 mg by mouth in the morning. 08/10/2022 Active Comment on above: Take 80 mg by mouth once daily. azithromycin 250 mg oral tablet (2 sources) Macrolide Antimicrobial Start: 10-07-19 24 Azithromycin 250 MG as directed Orally 2 tabs po today, then 1 tab daily x 4 more days for 5 Sep, Active bacitracin 0.5 unt/mg topical ointment (1 source) Start: 12-20-19 18 bacitracin 500 units/g topical ointment ; Apply topically to affected area 2 times a day Quantity: 1 Refills: 0 Ordered: 19-Dec-2017 Tony Cloud Start: 19-Dec-2017 Status: Discontinued Generic Substitution Allowed Comments: For external use only. Comment on above: For external use onl y. BMX Solution (1 source) Start: 03-30-20 22 take 5 mL by mouth every two hours BMX Solution 5 mL, Oral, q2hr Chest pain, 90 mL, Refill(s) 1 Start Date: 03/30/22 Status: Ordered cefTRIAXone 2000 mg injection (1 source) Cephalosporin Antibacterial Start: 10-28-19 clopidogrel 75 mg oral tablet (20 sources) P2Y12 Platelet Inhibitor Start: 06-14-20 End: 11-29-19 take 1 tablet by mouth in the morning clopidogrel (Plavix) 75 MG tablet Take 75 mg by mouth in the morning. 10/13/2022 Active Comment on above: Take 75 mg by mouth once daily. Take 1 tablet by brandi th once daily. esomeprazole 40 mg granules for oral suspension (1 source) Proton Pump Inhibitor Start: 06-14-20 esomeprazole 40 mg oral powder for reconstitution, delayed release ; 1 packet(s) by nasogastric tube once a day Quantity: 30 Refills: 0 Ordered: 14-Jun-2022 Alex Panchal Start: 14-Jun-2022 Generic Substitution Allowed finasteride 5 mg oral tablet (20 sources) 5-alpha Reductase Inhibitor Start: 07-07-20 End: 11-29-19 take 1 tablet by mouth in the morning finasteride (Proscar) 5 MG tablet Take 5 mg by mouth in the morning. 07/07/2023 Active Comment on above: Take 1 tablet by brandi th once daily. furosemide 20 mg oral tablet (20 sources) Loop Diuretic Start: 09-03-20 take 1 tablet by mouth every other day furosemide (Lasix) 20 MG tablet Take 1 tablet by mouth every other day 09/03/2022 Active Start: 12-26-2020 End: 07-13-2022 furosemide 20 mg Tab mg tab( s), Oral, TueWedF, Refills(s) 0 Start Date: 09/14/21 Status: Ordered Comment on above: TAKE 1 TABLET BY BRANDI TH ON TUESDAY, TUESDAY, AND TUESDAY glucagon (rdna) 1 mg injection (2 sources) Antihypoglycemic Agent Start: 10-27-2024 50 ml glucose 500 mg/ml prefilled syringe (2 sources) Start: 10-27-2024 1 ml heparin sodium, porcine 5000 unt/ml injection (2 sources) Unfractionated Heparin, Anti-coagulant Start: 10-26-2024 inject 5000 [IU] by subcutaneous injection every eight hours Start: 10-24-2024 End: 10-25-2024 inject 5000 [IU] by subcutaneous injection every eight hours hyoscyamine sulfate 0.125 mg oral tablet (3 sources) Start: 06-06-2025 hyoscyamine (Anaspaz,Levsin) 0.125 MG tablet TAKE 1 TABLET BY MOUTH 2-3 TIMES PER DAY NEEDED FOR DYSPEPSIA 06/06/2025 Active iv contrast (will be provided with radiology test) (1 source) Start: 01-05-2024 End: 01-06-2024 iv contrast (will be provided with radiology test) Indications: Malignant neoplasm of urinary bladder, unspecified site (HCC) , Bladder stone CT Urogram WO/W Inject, intravenously, once for 1 dose.No IV access, insert saline lock prior to the beginning of sedation, infusion, injection of imaging exam. Discontinue saline lock post exam. If Pt. has a central line or IVAD, may access for administration according to line specific nursing protocol. Once exam is complete flush line and de-access according to line specific nursing protocol in the CT contrast administration guidelines link. 1 Each 0 01/05/2024 01/06/2024 Active Comment on above: CT Urogram WO/W Inje ct, intravenously, once for 1 dose.No IV access, insert saline lock prior to the beginning of sedation, infusion, injection of imaging exam. Discontinue saline lock post exam. If Pt. has a central line or IVAD, may access for administration according to line specific nursing protocol. Once exam is complete flush line and de-access according to line specific nursing protocol in the CT contrast administration guidelines link. latanoprost 0.05 mg/ml ophthalmic solution (20 sources) Prostaglandin Analog Start: 11-28-2024 take 1 drop(s) into the eye(s) once daily at bedtime Latanoprost 0.005 % Drops Active 1 DROPS EYE-BOTH Daily at bedtime 2.5 November 28, 2024 1:00am Start: 07-12-2024 take 1 drop(s) into the eye(s) once daily in the evening Latanoprost Active 1 DROPS OPHTHALMIC Daily July 12, 2024 12:00am FreeTextSi drop into affected eye in the evening Ophthalmic Once a day; Note: Source Status: Taking; Provider: Mona Templeton ( ) Start: 05-26-2022 latanoprost Op th 0.005% Jo Ann 1 drop(s), Eye-Both, Once a day (at bedtime), Refill(s) 0 Start Date: 05/26/22 Status: Ordered Repeat number: 1 Start: 05-26-2022 latanoprost (X ALATAN) 0.005 % ophthalmic solution 1 Drop. 05/26/2022 Active Start: 09-15-2020 End: 11-28-2024 take 1 drop(s) into the eye(s) once daily at bedtime Latanoprost 0.005 % drops Discontinued 1 DROPS OPHTHALMIC Daily at bedtime July 12, 2024 12:00am November 28, 2024 2:14pm FreeTextSi drop into affected eye in the evening Ophthalmic Once a day; Note: Source Status: Taking; Provider: Mona Templeton ( ) Start: 09-15-2020 take 1 drop(s) into the eye(s) at bedtime Latanoprost 0.005 % Ophthalmic Solution INSTILL 1 DROP Bedtime Into each eye Quantity: 0 Refills: 3 Ordered: 22-Oct-2020 DO Start : 15-Sep-2020 Active Start: 09-15-2020 Latanoprost 0. 005 % Ophthalmic Solution Quantity: 2 Refills: 0 Ordered: 22-Oct-2020 DO Start : 15-Sep-2020 Active latanoprost (Xal atan) 0.005 % ophthalmic solution Active take 1 drop(s) into the eye(s) once daily in the evening latanoprost 0.005 % eye drops instill 1 drop by ophthalmic route every day into both eyes in the evening 1 drop - Active take 1 drop(s) into the eye(s) once daily in the evening Latanoprost 0.005 % 1 drop into affected eye in the evening Ophthalmic Once a day Active take 1 drop(s) into the eye(s) once daily in the evening Latanoprost 0.005 % 1 drop into affected eye in the evening Ophthalmic Once a day Active latanoprost 0.00 5% ophthalmic solution ; 1 drop(s) to both eyes once a day (in the evening) Quantity: 0 Refills: 0 Ordered: 28-May-2022 Chyna Soria Generic Substitution Allowed Comment on above: 1 Drop. levoFLOXacin 750 mg oral tablet (1 source) Quinolone Antimicrobial Start: 11-01-2024 End: 11-04-2024 Lift chair (1 source) Start: 06-07-2022 Lift chair Quantity: 1 Refills: 0 Ordered: 07-Jun-2022 Tony Fay Start: 07-Jun-2022 Generic Substitution Allowed magnesium gluconate 550 mg oral tablet (3 sources) magnesium 30 mg tablet - Active metoprolol tartrate 25 mg oral tablet (20 sources) beta-Adrenergic Jac Start: 10-26-2024 Start: 10-26-2024 Start: 01-20-2023 take 1 tablet by brandi th every twenty-four hours metoprolol succinate XL (Toprol-XL) 25 mg 24 hr tablet Take 1 tablet (25 mg) by mouth. 01/20/2023 Active Start: 01-09-2018 Metoprolol Tar trate 50 mg Tablet Active 75 MG PO Twice daily January 08, 2018 11:00pm Start: 01-09-2018 take 75 mg by mouth twice saadia y Metoprolol Tartrate Active 75 MG PO Twice daily January 09, 2018 12:00am Start: 12-21-2016 End: 11-02-2024 take 1 tablet by mouth in the morning metoprolol tartrate (Lopressor) 25 MG tablet Take 25 mg by mouth in the morning and 25 mg in the evening. 09/22/2022 Active Start: 12-21-2016 End: 12-03-2024 Metoprolol Tartrate 50 mg Ta blet Discontinued 50 MG FEEDTUBE Twice daily January 09, 2018 12:00am November 28, 2024 2:14pm Start: 12-21-2016 Metoprolol Tar trate 50 MG Oral Tablet Quantity: 270 Refills: 0 Ordered: 21-Dec-2016 DO Start : 21-Dec-2016 Active Start: 09-06-2013 metoprolol 50 mg ER Tab Oral, BID, Refills(s) 0, High blood pressure Start Date: 09/06/13 Status: Ordered take 1 tablet by brandi th once daily metoprolol succinate ER 50 mg tablet,extended release 24 hr take 1 tablet by oral route every day 50 MG - Active take 1.5 tablets by mouth twice daily metoprolol tartrate 50 mg oral tablet ; 1.5 tab(s) orally 2 times a day Quantity: 0 Refills: 0 Ordered: 28-May-2022 Chyna Soria Status: Discontinued Generic Substitution Allowed METOPROLOL TARTR ATE ORAL Indications: Pain in right hip , DDD (degenerative disc disease), lumbar Take by mouth. 0 Active Comment on above: Take by mouth. It is very important that you take or use this exactly as directed. Do not skip doses or discontinue unless directed by your doctor.May cause drowsiness or dizziness.Some non-prescription drugs may aggravate your condition. Read all labels carefully. If a warning appears, check with your doctor before taking.Take with food or milk.This drug may impair the ability to drive or operate machinery. Use care until you become familiar with its effects. Take 25 mg by mouth twice daily. [facility]. nitrofurantoin, macrocrystals 25 mg / nitrofurantoin, monohydrate 75 mg oral capsule (4 sources) Nitrofuran Antibacterial Start: 04-29-20 take 1 capsule by mouth every twelve hours Nitrofurantoin Monohyd Macro 100 MG 1 capsule with food Orally every 12 hrs for 10 days Apr, Active Start: 10-07-2022 End: 10-12-2022 take 1 capsule by mouth twice daily nitrofurantoin monohydrate and macrocrystal (MACROBID) 100 mg capsule Take 1 capsule by mouth twice daily for 5 days. 10 capsule 0 10/07/2022 10/12/2022 Active Comment on above: Take 1 capsule by [facility] twice daily for 5 days. omeprazole 40 mg delayed release oral capsule (20 sources) Proton Pump Inhibitor Start: 03-18-2022 take 1 capsule by mouth once daily omeprazole 40 mg Cap-DR 40 mg = 1 cap(s), Oral, Daily, # 30 cap(s), Refills(s) 2, Pharmacy: [facility]/pharmacy #[id number], 182, cm, 03/18/22 13:37:00 EDT, Height/Length Dosing, 79.9, kg, 03/18/22 13:37:00 EDT, Weight Dosing Start Date: 03/18/22 Status: Ordered End: 10-01-2022 take 1 capsule by mouth once daily omeprazole (PRILOSEC) 20 mg capsule Indications: Pain in right hip , DDD (degenerative disc disease), lumbar Take 20 mg by mouth once daily. 0 10/01/2022 Discontinued take 1 capsule by mo [facility] twice daily omeprazole 40 mg oral delayed release capsule ; 1 cap(s) orally 2 times a day Quantity: 0 Refills: 0 Ordered: 28-May-2022 Chyna Soria Status: Discontinued Generic Substitution Allowed Comment on above: Take 20 mg by mouth once daily. oxybutynin chloride 5 mg oral tablet (15 sources) Cholinergic Muscarinic Antagonist Start: 11-01-2022 take 1 tablet by mouth once daily as needed oxybutynin 5 mg Tab 5 mg = 1 tab(s), Oral, Daily, PRN for urinary discomfort, # 30 tab(s), Refills(s) 1, Pharmacy: [facility]/pharmacy #[id number], 182, cm, 11/01/22 14:38:00 EST, Height/Length Dosing, 80, kg, 11/01/22 14:38:00 EST, Weight Dosing Start Date: 11/01/22 Status: Ordered Start: 05-05-2022 take 1 tablet by brandi twice daily as needed oxybutynin 5 mg Tab 5 mg = 1 tab(s), Oral, BID, PRN for urinary discomfort, # 30 tab(s), Refills(s) 0, Pharmacy: [facility]/pharmacy #[id number], 182, cm, 03/30/22 10:26:00 EDT, Height/Length Dosing, 79.9, kg, 03/30/22 10:26:00 EDT, Weight Dosing Start Date: 05/05/22 Status: Ordered pantoprazole 40 mg extended release oral tablet (20 sources) Proton Pump Inhibitor Start: 05-25-2022 take 1 tablet by mouth twice daily pantoprazole 40 mg Oral EC Tab 40 mg = 1 tab(s), Oral, BID, # 60 tab(s), Refills(s) 3, Pharmacy: [facility]/pharmacy #[id number], 182, cm, 05/10/22 9:09:00 EDT, Height/Length Dosing, 79.9, kg, 05/10/22 9:09:00 EDT, Weight Dosing Start Date: 05/25/22 Status: Ordered Start: 12-22-2017 End: 09-14-2018 Pantoprazole 40 mg Tablet,De layed Release (Dr/Ec) Discontinued 40 MG PO As Directed as needed for Acid Reflux January 09, 2018 12:00am September 14, 2018 12:39pm Start: 12-06-2016 take 1 tablet by brandi th twice daily pantoprazole 40 mg Oral EC Tab 40 mg = 1 tab(s), Oral, BID, # 60 tab(s), Refills(s) 3, Pharmacy: [facility]/pharmacy #[id number], 182, cm, 05/10/22 9:09:00 EDT, Height/Length Dosing, 79.9, kg, 05/10/22 9:09:00 EDT, Weight Dosing Start Date: 05/25/22 Status: Ordered Start: 12-06-2016 Pantoprazole S odium 40 MG Oral Tablet Delayed Release Quantity: 90 Refills: 0 Ordered: 06-Dec-2016 DO Start : 06-Dec-2016 Active perflutren lipid microspheres 1.3 mL in NaCl (PF) 0.9% 10 mL injection (DEFINITY) (19 sources) Start: 09-22-2022 End: 12-22-2023 perflutren lipid microspheres 1.3 mL in NaCl (PF) 0.9% 10 mL injection (Pod InnsITY) petrolatum 1 mg/mg topical ointment (1 source) Start: 12-22-2017 petrolatum top ical ointment ; 1 application topically 3 times a day - to Incisions Quantity: 0 Refills: 0 Ordered: 22-Dec-2017 Migdalia Peña Start: 22-Dec-2017 Status: Other Generic Substitution Allowed rosuvastatin calcium 10 mg oral tablet (20 sources) HMG-CoA Reductase Inhibitor Start: 01-13-2023 End: 11-10-2024 rosuvastatin (Crestor) 10 MG tablet Take 10 mg by mouth 01/13/2023 Active Comment on above: Take 10 mg by mouth once daily. sennosides, custodial 1.76 mg/ml oral solution (20 sources) Start: 02-05-2025 Sennosides (Se nna) 8.8 MG/5ML syrup GIVE (5 ML) PEG TUBE DAILY AT BEDTIME FOR 30 DAYS 02/05/2025 Active Start: 11-28-2024 End: 07-01-2025 Sennosides (Senna) 8.8 mg/5 mL syrup Discontinued 8.8 MG PEG Daily at bedtime 150 30 February 05, 2025 11:01am July 01, 2025 10:01am Start: 11-10-2024 End: 11-28-2024 Sennosides (Senna) 8.6 mg ca psule Discontinued 17.2 MG FEEDTUBE Daily at bedtime November 10, 2024 1:00am November 28, 2024 2:14pm silodosin 8 mg oral capsule (15 sources) alpha-Adrenergic Jac Start: 06-14-2022 take 1 mg by mouth once daily silodosin 8 mg oral capsule mg cap(s), Oral, Daily, Refills(s) 0 Start Date: 07/14/22 Status: Ordered simvastatin 40 mg oral tablet (16 sources) HMG-CoA Reductase Inhibitor take 1 tablet by mouth at bedtime simvastatin (Zocor) 40 MG tablet Take 40 mg by mouth at bedtime Active 1000 ml sodium chloride 9 mg/ml injection (20 sources) Start: 01-05-2024 End: 01-05-2024 0.9 % sodium chloride (NACL 0.9%) infusion Indications: Malignant neoplasm of urinary bladder, unspecified site (HCC) , Bladder stone Administer at rate defined per CT contrast administration specifications. To be provided with radiology test. 150 mL 0 01/05/2024 01/05/2024 Active Start: 09-22-2022 End: 12-22-2023 sodium chloride 0.9 % (flush ) 10 mL (BD POSIFLUSH) Comment on above: Administer at rate d efined per CT contrast administration specifications. To be provided with radiology test. stool softener (1 source) take 100 mg by mouth twice daily stool softener ; 100 milligram(s) orally 2 times a day Quantity: 0 Refills: 0 Ordered: 15-Dec-2017 Victoria Mckeon Status: Other Generic Substitution Allowed sucralfate 1000 mg oral tablet (4 sources) Aluminum Complex Start: sucralfate tab Refills(s) 0 Start Date: 05/26/22 Status: Ordered take 1 tablet by brandi th three times daily sucralfate 1 g oral tablet ; 1 tab(s) or ally 3 times a day Quantity: 0 Refills: 0 Ordered: 28-May-2022 Chyna Soria Status: Discontinued Generic Substitution Allowed thiamine 100 mg oral tablet (8 sources) Start: 07-14-2022 take 1 mg by mouth once daily thiamine 100 mg Tab mg tab(s), Oral, Daily, Refills(s) 0 Start Date: 07/14/22 Status: Ordered Start: 06-14-2022 take 1 tablet by brandi th once daily thiamine 100 mg oral tablet ; 1 tab(s) by nasogastric tube once a day Quantity: 30 Refills: 0 Ordered: 14-Jun-2022 Alex Panchal Start: 14-Jun-2022 Generic Substitution Allowed Completed/Discontinued Medications Medication Drug Class(es) Dates Sig (Normalized) Sig (Original) acetaminophen 325 mg / HYDROcodone bitartrate 5 mg oral tablet (10 sources) Opioid Agonist Start: 10-24-2015 End: 10-08-2022 take 1 tablet by mouth every twelve hours as needed HYDROcodone-acetam inophen (NORCO) 5-325 mg per tablet Take 1 tablet by mouth twice daily as needed. 20 tablet 0 10/24/2015 10/08/2022 Discontinued Comment on above: Take 1 tablet by brandi th twice daily as needed. 200 ml amiodarone hydrochloride 1.8 mg/ml injection (1 source) Antiarrhythmic Start: 10-24-2024 End: 10-24-2024 benzalkonium chloride 0.001 mg/mg topical gel (3 sources) Start: 01-23-2018 RadiaPlexRx External Gel APPLY A SMALL AMOUNT TO SKIN 3 TIMES A DAY DIRECTED, 1 APPLICATION Quantity: 340 Refills: 0 Ordered: 23-Jan-2018 DO Start : 23-Jan-2018 Active betamethasone 3 mg/ml / betamethasone acetate 3 mg/ml injectable suspension (4 sources) Corticosteroid Start: 02-27-2025 End: 02-27-2025 betamethasone acetate-betamethas one sodium phosphate (Celestone) injection 12 mg Start: 02-27-2025 End: 02-27-2025 12 mg, Intra-articular, Once PRN Procedure, Starting on Tue02/27/25 at 1047, For 1 dose bimatoprost 0.1 mg/ml ophthalmic solution (20 sources) Prostaglandin Analog Start: 03-15-2019 End: 11-10-2024 take 0.01 drop(s) into the eye(s) once daily in the evening Bimatoprost (Lumigan) 0.01 % Drops Discontinued 1 DROPS EYE-BOTH Every evening March 15, 2019 12:00am November 10, 2024 5:27pm Start: 03-15-2019 End: 11-10-2024 take 0.01 drop(s) into the eye(s) once daily in the evening Bimatoprost (Lumigan) 0.01 % Drops Discontinued 1 DROPS EYE-BOTH Every evening March 15, 2019 12:00am November 10, 2024 5:27pm Start: 11-17-2018 take 1 drop(s) into the eye(s) at bedtime Lumigan 0.01 % Ophthalmic Solution INSTILL 1 DROP INTO BOTH EYES AT BEDTIME Quantity: 3 Refills: 0 Ordered: 24-Dec-2018 DO Start : 17-Nov-2018 Active cephalexin 500 mg oral capsule (1 source) Cephalosporin Antibacterial Start: 02-10-2023 take 1 capsule by mouth four times daily cephALEXin (KEFLEX) 500 mg capsule Take 1 capsule by mouth four times daily. 12 capsule 0 02/10/2023 Active Comment on above: Take 1 capsule by mo [facility] four times daily. ciprofloxacin 500 mg oral tablet (20 sources) Quinolone Antimicrobial Start: 01-17-2025 End: 01-17-2025 ciprofloxacin HCl 500 mg tab(s) (CIPRO) Start: 01-17-2025 End: 01-17-2025 take 1 dose by mouth once at mealtime 500 mg, ORAL/FEEDING TUBE, ONCE, 1 dose, On Ashtyn 01/17/25 at 1030, Administer 2 hours before or 4 hours after medications containing calcium, magnesium, aluminum, iron, or zinc (including antacids and sucralfate), and sevelamer. May be administered without regard to meals. Tube feedings should be held 1 hour before and 1 hour after administration., Antimicrobial indication: Empiric, Infectious source(s): Urinary/renal Start: 02-06-2024 End: 07-13-2024 take 1 tablet by mouth twice daily Ciprofloxacin Hcl 250 mg tablet Discontinued 250 MG PO Twice daily March 01, 2024 9:55am July 13, 2024 10:53am Start: 12-26-2023 End: 01-02-2024 take 1 tablet by mouth twice daily ciprofloxacin HCl (CIPRO) 500 mg tablet Take 1 tablet by mouth two times a day for 7 days. 14 tablet 0 12/26/2023 01/02/2024 Active Start: 06-21-2023 End: 06-28-2023 take 1 tablet by mouth twice daily ciprofloxacin HCl (CIPRO) 500 mg tablet Take 1 tablet by mouth twice daily for 7 days. 14 tablet 0 06/21/2023 06/28/2023 Active Comment on above: Take 1 tablet by brandi th twice daily for 7 days. Take 1 tablet by brandi th two times a day for 7 days. dexamethasone 1 mg/ml / tobramycin 3 mg/ml ophthalmic suspension (20 sources) Aminoglycoside Antibacterial, Corticosteroid Start: 02-03-20 End: 09-14-20 take 1 drop(s) into the eye(s) twice daily as needed Tobramycin-Dexametha sone 0.3-0.1 % Drops,Suspension Discontinued 1 DROPS OPHTHALMIC Twice daily as needed for Eye allergy symptoms February 02, 2018 12:00am September 14, 2018 12:39pm Start: 02-01-2018 take 1 drop(s) into the eye(s) three times daily Tobramycin-Dexamethasone 0.3-0.1 % Ophthalmic Suspension PLACE 1 DROP IN RIGHT EYE 3 TIMES A DAY Quantity: 5 Refills: 0 Ordered: 01-Feb-2018 DO Start : 01-Feb-2018 Active 100 ml dexmedetomidine 0.004 mg/ml injection (1 source) Central alpha-2 Adrenergic Agonist Start: 10-24-2024 End: 10-28-2024 docusate sodium 10 mg/ml oral suspension (20 sources) Start: 11-18-2024 End: 11-28-2024 take 100 mg by mouth twice daily Docusate Sodium 50 mg/5 mL Liquid Discontinued 100 MG PO Twice daily 600 November 18, 2024 1:00am November 28, 2024 2:14pm Start: 12-06-2017 End: 03-15-2019 take 1 capsule by mouth twice daily Docusate Sodium (Colace) 100 mg Capsule Discontinued 100 MG PO Twice daily January 09, 2018 12:00am March 15, 2019 9:32am Start: 12-06-2017 Stool Softener 100 MG Oral Capsule Quantity: 0 Refills: 0 Ordered: 06-Dec-2017 DO Start : 06-Dec-2017 Active doxycycline hyclate 100 mg oral capsule (15 sources) Tetracycline-class Drug Start: 11-18-2024 End: 11-28-2024 take 1 capsule by mouth twice daily Doxycycline Hyclate 100 mg capsule Discontinued 100 MG PO Twice daily November 18, 2024 1:00am November 28, 2024 2:14pm Start: 04-06-2023 take 1 capsule by [facility] every twelve hours Doxycycline Monohydrate 100 MG 1 capsule Orally Twice a day for 7 days Mar, Active Start: 01-21-2022 take 1 capsule by [facility] once daily doxycycline hyclate 100 mg Cap 100 mg = 1 cap(s), Oral, Daily, Take 1 pill the day before the procedure and 1 pill after the procedure, # 2 cap(s), Refills(s) 0, Pharmacy: [facility]/pharmacy #[id number], 182, cm, 09/14/21 9:06:00 EST, Height/Length Dosing, 86, kg, 09/14/21 9:06:00 EST, Weight... Start Date: 01/21/22 Status: Ordered Drug or medicament (substance) (1 source) Start: 10-25-2024 End: 10-27-2024 Esomeprazole Magnesium 40 MG Oral Packet (2 sources) take 1 dose by mouth once daily Esomeprazole Magnesium 40 MG Oral Packet MIX THE CONTENTS OF 1 PACKET IN 15ML OF WATER AND DRINK ONCE DAILY. Quantity: 0 Refills: 0 Ordered: 15-Jun-2022 DO Active fluticasone propionate 0.05 mg/actuat metered dose nasal spray (5 sources) Corticosteroid Start: 08-05-2020 Fluticasone Propionate 50 MCG/ACT Nasal Suspension Quantity: 16 Refills: 0 Ordered: 22-Oct-2020 DO Start : 05-Aug-2020 Active guaiFENesin 20 mg/ml oral solution (16 sources) Start: 11-10-2024 End: 11-28-2024 Guaifenesin 100 mg/5 mL liquid Discontinued 200 MG FEEDTUBE Every 4 hours as needed for congestion November 10, 2024 1:00am November 28, 2024 2:14pm Start: 10-25-2024 take 10 mL by mouth every four hours for congestion guaiFENesin (Robitussin) 100 mg/5 mL syrup Indications: Pneumonia due to infectious organism, unspecified laterality, unspecified part of lung Take 10 mL (200 mg) by mouth every 4 hours if needed for congestion. Through NG tube 10/31/2024 Active Hyaluronic Yu-Maanmfrsb-Oxzl (Radiaplexrx) Gel (15 sources) Start: 01-09-2018 End: 09-14-2018 Hyaluronic Ms-Xglbdldbk-Ehni (Radiaplexrx) Gel Discontinued 1 APPLIC TOPICAL Three times daily January 09, 2018 12:00am September 14, 2018 12:39pm Start: 01-09-2018 End: 09-14-2018 Hyaluronic Va-Vsdtgirtz-Ykgy (Radiaplexrx) Gel Discontinued 1 APPLIC TOPICAL Three times daily January 08, 2018 11:00pm September 14, 2018 11:39am 1 ml ketorolac tromethamine 30 mg/ml injection (1 source) Nonsteroidal Anti-inflammatory Drug, Cyclooxygenase Inhibitor Start: 10-30-2024 End: 10-30-2024 Start: 10-30-2024 End: 10-30-2024 lidocaine 0.04 mg/mg medicated patch (16 sources) Antiarrhythmic, Amide Local Anesthetic Start: 11-10-2024 End: 11-28-2024 apply 1 dose topically every twelve hours as needed for pain Lidocaine (Aspercreme (Lidocaine)) 4 % adhesive patch,medicated Discontinued 1 PATCH TOPICAL Every 12 hours as needed for pain November 10, 2024 1:00am November 28, 2024 2:14pm Start: 10-25-2024 lidocaine 4 % patch Indications: Osteoarthritis, unspecified osteoarthritis type, unspecified site Place 1 patch over 12 hours on the skin once daily as needed for mild pain (1 - 3), moderate pain (4 - 6) or severe pain (7 - 10). Remove & discard patch within 12 hours or as directed by . 10/31/2024 Active lisinopril 5 mg oral tablet (20 sources) Angiotensin Converting Enzyme Inhibitor Start: 10-27-2024 End: 10-28-2024 Start: 06-14-2022 End: 11-10-2024 take 1 tablet by mouth once daily Lisinopril 2.5 mg tablet Discontinued 1 TAB PO Daily July 12, 2024 12:00am November 10, 2024 5:27pm [employer] tablet Orally Once a day; Note: Source Status: Continue; Provider: Mona Templeton ( ) Comment on above: TAKE 1 TABLET BY NIALL OGASTRIC TUBE ONCE A DAY Magic Mouthwash (15 sources) Start: 02-21-2018 End: 04-14-2018 take 1 mL by mouth four times daily as needed Magic Mouthwash Discontinued 10 ML PO Four times daily as needed for painful swallowing February 21, 2018 12:00am April 14, 2018 10:11am Start: 02-21-2018 End: 04-14-2018 take 1 mL by mouth four times daily as needed Magic Mouthwash Discontinued 10 ML PO Four times daily as needed for painful swallowing 2018 11:00pm April 14, 2018 9:11am Start: 02-21-2018 End: 04-14-2018 take 1 mL by mouth four times daily Magic Mouthwash Discontinued 10 ML PO Four times daily February 21, 2018 12:00am April 14, 2018 10:11am Start: 02-21-2018 End: 04-14-2018 take 1 mL by mouth four times daily Magic Mouthwash Discontinued 10 ML PO Four times daily 2018 11:00pm April 14, 2018 9:11am magnesium oxide 400 mg oral tablet (10 sources) Start: 10-29-2024 End: 10-29-2024 Start: 07-12-2022 magnesium oxid e 400 mg Tab 30 EA, TAKE 1 TABLET BY NASTROGASTRIC TUBE ONCE A DAY WHILE ON LASIX/FUROSEMIDE, Refills(s) 0 Start Date: 07/12/22 Status: Ordered Start: 06-14-2022 magnesium oxid e 400 mg oral tablet ; 1 tab(s) by nasogastric tube once a day, while on furosemide/Lasix Quantity: 30 Refills: 0 Ordered: 14-Jun-2022 Alex Panchal Start: 14-Jun-2022 Generic Substitution Allowed take 1 tablet by brandi th once daily Magnesium Oxide 400 MG Oral Tablet TAKE 1 TABLET DAILY. Quantity: 30 Refills: 0 Ordered: 15-Jun-2022 DO Active 50 ml magnesium sulfate 40 m g/ml injection (5 sources) Start: 10-28-2024 End: 10-28-2024 Start: 10-25-2024 End: 10-27-2024 meclizine hydrochloride 25 mg oral tablet (20 sources) Antiemetic Start: 07-13-2024 End: 11-10-2024 take 0.5-1 tablets by mouth every eight hours as needed Meclizine 25 mg tablet Discontinued 25 MG PO Three times daily as needed for dizziness July 13, 2024 12:00am November 10, 2024 5:27pm 1/2 - 1 tab po q8h prn vertigo Start: 04-29-2020 take 0.5-1 tablets b y mouth three times daily as needed Meclizine HCl - 25 MG Oral Tablet TAKE 1/2 TO 1 TABLET BY MOUTH THREE TIMES DAILY NEEDED Quantity: 30 Refills: 0 Ordered: 29-Apr-2020 DO Start : 29-Apr-2020 Active melatonin 5 mg oral tablet (20 sources) Start: 11-28-2024 End: 12-03-2024 Melatonin 5 mg Tablet Discon tinued 10 MG PEG Daily at bedtime 60 November 28, 2024 1:00am December 03, 2024 2:32pm Start: 11-10-2024 End: 11-28-2024 Melatonin 5 mg capsule Disco ntinued 5 MG FEEDTUBE Daily at bedtime November 10, 2024 1:00am November 28, 2024 2:14pm Start: 10-31-2024 melatonin 5 mg tablet Indications: Osteoarthritis, unspecified osteoarthritis type, unspecified site 1 tablet (5 mg) by nasogastric tube route once daily at bedtime. 10/31/2024 Active Start: 10-27-2024 metoprolol 1 mg/mL Inj (1 source) Start: 10-21-2024 End: 10-24-2024 inject 5 mg intravenously every six hours as needed metoprolol 1 mg/mL Inj 5 mg = 5 mL, Injection, IV Push, q6hr PRN Other (see comment), Routine, Start date 10/21/24 9:42:00 AM EST, 10/21/24 9:42:00 EST Start Date: 10/21/24 Stop Date: 10/24/24 Status: Discontinued nystatin 828701 unt/ml oral suspension (6 sources) Polyene Antifungal Start: 02-21-2018 Nystatin 358041 UNIT/ML Mouth/Throat Suspension Quantity: 240 Refills: 0 Ordered: 21-Feb-2018 DO Start : 21-Feb-2018 Active Start: 02-21-2018 Nystatin 95582 0 UNIT/ML Mouth/Throat Suspension Quantity: 240 Refills: 0 Start : 21-Feb-2018 Active ondansetron 4 mg disintegrating oral tablet (5 sources) Serotonin-3 Receptor Antagonist Start: 04-29-2020 take 1 tablet by mouth three times daily as needed Ondansetron 4 MG Oral Tablet Disintegrating TAKE 1 TABLET BY MOUTH THREE TIMES A DAY NEEDED Quantity: 20 Refills: 0 Ordered: 29-Apr-2020 DO Start : 29-Apr-2020 Active oxyCODONE hydrochloride 5 mg oral tablet (1 source) Opioid Agonist Start: 12-22-2017 End: 12-26-2017 take 1 tablet by mouth every four hours as needed oxyCODONE 5 mg oral tablet ; 1 tab(s) orally every 4 hours, As needed, Pain Diagnosis Code: G89.3PRN Reason: Pain - Mild (1-3) Quantity: 30 Refills: 0 Ordered: 22-Dec-2017 Migdalia Peña Start: 22-Dec-2017 End: 26-Dec-2017 Status: Other Generic Substitution Allowed oxygen (O2) therapy (2 sources) Start: 10-24-2024 End: 10-27-2024 piperacillin 3000 mg / tazobactam 375 mg injection (1 source) Penicillin-class Antibacterial, beta Lactamase Inhibitor Start: 10-25-2024 End: 10-27-2024 take 3.375 g intravenously every six hours polyethylene glycol 3350 24618 mg powder for oral solution (11 sources) Osmotic Laxative Start: 11-10-2024 End: 11-28-2024 Polyethylene Glycol 3350 (Miralax) 17 gram powder in packet Discontinued 17 GM FEEDTUBE Daily November 10, 2024 1:00am November 28, 2024 2:14pm Start: 06-14-2022 take 17 g by mouth o nce daily as needed for constipation polyethylene glycol 3350 oral powder for reconstitution ; 17 gram(s) by nasogastric tube once a day, As Needed - for constipation [Miralax, [id number] laxative] Quantity: 0 Refills: 0 Ordered: 14-Jun-2022 Alex Panchal Start: 14-Jun-2022 Generic Substitution Allowed potassium chloride 20 meq po wder for oral solution (4 sources) Start: 10-29-2024 End: 10-29-2024 Start: 10-27-2024 End: 10-27-2024 Start: 10-25-2024 End: 10-26-2024 RadiaPlexRx External Gel (3 sources) Start: 01-23-2018 RadiaPlexRx Ex ternal Gel APPLY A SMALL AMOUNT TO SKIN 3 TIMES A DAY DIRECTED, 1 APPLICATION Quantity: 340 Refills: 0 Ordered: 23-Jan-2018 DO Start : 23-Jan-2018 Active Sennosides (Senna) 8.6 mg capsule (7 sources) Start: 11-10-2024 End: 11-28-2024 Sennosides (Senna) 8.6 mg capsule Discontinued 17.2 MG FEEDTUBE Daily at bedtime November 10, 2024 1:00am November 28, 2024 2:14pm Start: 11-10-2024 Sennosides (Se nna) 8.6 mg capsule Active 17.2 MG FEEDTUBE Daily at bedtime November 10, 2024 12:00am sulfamethoxazole 800 mg / trimethoprim 160 mg oral tablet (7 sources) Dihydrofolate Reductase Inhibitor Antibacterial, Sulfonamide Antimicrobial Start: 09-16-2022 End: 10-07-2022 take 1 tablet by mouth twice daily sulfamethoxazole-trimethoprim (BACTRIM DS,SEPTRA DS) 800-160 mg per tablet Take 1 tablet by mouth twice daily. 0 09/16/2022 10/07/2022 Discontinued Comment on above: Take 1 tablet by [facility] [place] twice daily. tamsulosin hydrochloride 0.4 mg oral capsule (20 sources) alpha-Adrenergic Jac Start: 03-12-2019 End: 11-10-2024 take 1 capsule by mouth once daily Tamsulosin 0.4 mg Capsule Discontinued 0.4 MG PO Daily March 15, 2019 12:00am November 10, 2024 5:27pm Start: 03-12-2019 Tamsulosin HCl - 0.4 MG Oral Capsule Quantity: 30 Refills: 0 Ordered: 12-Mar-2019 DO Start : 12-Mar-2019 Active take 1 capsule by mo [facility] every twenty-four hours in the morning tamsulosin (Flomax) 0.4 MG 24 hr capsule Take 1 capsule by mouth in the morning. Active Comment on above: Take 0.4 mg by mouth once daily. traZODone hydrochloride 50 mg oral tablet (8 sources) Serotonin Reuptake Inhibitor Start: 11-28-2024 End: 12-03-2024 Trazodone 50 mg Tablet Discontinued 50 MG PEG Daily at bedtime as needed for Insomnia November 28, 2024 1:00am December 03, 2024 2:32pm triamcinolone acetonide 32 mg injection (4 sources) Corticosteroid Start: 04-09-2025 End: 04-09-2025 triamcinolone acetonide (Zilretta) injection 32 mg Start: 04-09-2025 End: 04-09-2025 32 mg, Once PRN Procedure, S tarting on Tue04/09/25 at 1447, For 1 dose (2 sources) Start: 10-24-2024 End: 10-28-2024 Start: 10-24-2024 End: 10-24-2024 Problems Active Problems Problem Classification Problem Date Documented Da te Episodic/Chronic Abdominal hernia (3 sources) Incisional hernia without obstruction or gangrene; Translations: [Unspecified abdominal hernia without obstruction or gangrene] Onset: 2 06-18-2025 Episodic Acute myocardial infarction (20 sources) Myocardial infarction; Translations: [Non-ST elevation (NSTEMI) myocardial infarction] Onset: 2 09-17-2022 Chronic Administrative/social admission (20 sources) Advance directive discussed with patient; Translations: [Other specified counseling] Onset: 5 11-27-2024 Episodic Bacterial infection; unspecified site (1 source) Infection due to Pseudomonas aeruginosa; Translations: [Other bacterial infections of unspecified site] 06-21-2023 Episodic Blindness and vision defects (1 source) Disorder of refraction; Translations: [Unspecified disorder of refraction] 06-12-2025 Episodic Calculus of urinary tract (20 sources) Kidney stone; Translations: [Urinary bladder stone] Onset: 2 01-26-2022 Episodic Cancer of bladder (20 sources) Malignant tumor of urinary bladder; Translations: [Malignant neoplasm of bladder, unspecified] Onset: 2 Chronic Cancer of bladder (2 sources) Personal history of malignant neoplasm of bladder; Translations: [PERSONAL HX MALIG NEOPLASM BLADDER] Onset: 2 Episodic Cancer; other and unspecified primary (10 sources) H/O: malignant neoplasm; Translations: [Personal history of unspecified malignant neoplasm] 01-15-2025 Episodic Cancer; other and unspecified primary (15 sources) Personal history of malignant neoplasm of other organs and systems; Translations: [Personal history of malignant neoplasm of other sites] Onset: 5 07-13-2024 Episodic Cancer; other and unspecified primary (13 sources) History of malignant neoplasm of head and/or neck; Translations: [Personal history of malignant neoplasm of other organs and systems] 07-23-2024 Episodic Cardiac dysrhythmias (20 sources) Atrial fibrillation; Translations: [Unspecified atrial fibrillation] Onset: 2 04-07-2019 Chronic Cardiac dysrhythmias (1 source) Sick sinus syndrome; Translations: [Sinoatrial node dysfunction] 06-07-2022 Episodic Cataract (20 sources) Age-related nuclear cataract, bilateral; Translations: [Nuclear sclerosis of both eyes] Onset: 4 Chronic Chronic kidney disease (15 sources) Chronic kidney disease; Translations: [Chronic kidney disease, unspecified] Onset: 2 Resolved: 3 09-17-2022 Chronic Chronic obstructive pulmonary disease and bronchiectasis (3 sources) Bronchitis, not specified as acute or chronic Episodic Coagulation and hemorrhagic disorders (1 source) Thrombocytopenic disorder; Translations: [Thrombocytopenia, unspecified] Onset: 5 Chronic Complications of surgical procedures or medical care (1 source) Pulmonary insufficiency following surgery; Translations: [Other pulmonary insufficiency, not elsewhere classified, following trauma and surgery] 06-05-2022 Episodic Conditions associated with dizziness or vertigo (19 sources) Benign paroxysmal positional vertigo; Translations: [Benign paroxysmal vertigo, bilateral] 07-23-2024 Episodic Conduction disorders (20 sources) Cardiac pacemaker in situ; Translations: [Presence of cardiac pacemaker] Onset: 2 Chronic Congestive heart failure; nonhypertensive (20 sources) Congestive heart failure; Translations: [Heart failure, unspecified] Onset: 2 09-17-2022 Chronic Congestive heart failure; nonhypertensive (2 sources) Congestive heart failure; nonhypertensive 06-04-2022 Coronary atherosclerosis and other heart disease (20 sources) Coronary atherosclerosis; Translations: [Atherosclerotic heart disease of [place] coronary artery without angina pectoris] Onset: 2 Chronic Coronary atherosclerosis and other heart disease (12 sources) Presence of aortocoronary bypass graft; Translations: [Aortocoronary bypass status] Onset: 5 11-18-2024 Episodic Deficiency and other anemia (20 sources) Anemia of chronic disease; Translations: [Anemia in other chronic diseases classified elsewhere] Onset: 2 09-17-2022 Chronic Deficiency and other anemia (2 sources) Iron deficiency anemia 05-30-2022 Episodic Deficiency and other anemia (2 sources) Anemia; Translations: [Anemia, unspecified] 06-01-2022 Episodic Deficiency and other anemia (2 sources) Deficiency and other anemia 05-30-2022 Digestive congenital anomalies (1 source) Lower esophageal ring; 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, esophageal atresia and stenosis] 06-01-2022 Chronic Disorders of lipid metabolism (12 sources) Pure hypercholesterolemia, unspecified; Translations: [Dyslipidemia] Onset: 2 Chronic Epilepsy; convulsions (12 sources) Unspecified convulsions; Translations: [Seizure] Onset: 2 Episodic Esophageal disorders (20 sources) Gastroesophageal reflux disease without esophagitis; Translations: [Gastro-esophageal reflux disease without esophagitis] Onset: 2 Chronic Essential hypertension (20 sources) Essential (primary) hypertension; Translations: [Essential hypertension] Onset: 2 Chronic Fluid and electrolyte disorders (4 sources) Hypovolemia; Translations: [Hypovolemia] 06-04-2022 Episodic Fracture of neck of femur (hip) (20 sources) Closed fracture of neck of femur; Translations: [Fracture of unspecified part of neck of left femur, initial encounter for closed fracture] Onset: 5 11-10-2024 Episodic Genitourinary symptoms and ill-defined conditions (20 sources) Delay when starting to pass urine; Translations: [Incomplete emptying of bladder] Onset: 2 11-05-2019 Episodic Glaucoma (20 sources) Bilateral low tension glaucoma of eyes; Translations: [Bilateral low tension glaucoma of eyes] Onset: 5 Chronic Heart valve disorders (18 sources) Non-rheumatic mitral regurgitation ; Translations: [Nonrheumatic mitral (valve) insufficiency] Onset: 2 Chronic Hyperplasia of prostate (20 sources) Benign prostatic hypertrophy with outflow obstruction; Translations: [Benign prostatic hyperplasia with lower urinary tract symptoms] Onset: 2 04-16-2019 Chronic Malaise and fatigue (2 sources) Other fatigue Episodic Neoplasms of unspecified nature or uncertain behavior (3 sources) Neoplasm of unspecified behavior of bladder; Translations: [Neoplastic disease of uncertain behavior] Onset: 2 Episodic Nutritional deficiencies (20 sources) Nutritional marasmus; 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] Onset: 3 06-10-2022 Chronic Osteoarthritis (15 sources) Unspecified osteoarthritis, unspecified site; Translations: [Osteoarthritis] Onset: 2 10-31-2024 Chronic Other aftercare (1 source) Surgical follow-up; Translations: [Other specified aftercare] 06-07-2022 Episodic Other and ill-defined heart disease (6 sources) Left ventricular systolic dysfunction; Translations: [Other ill-defined heart diseases] 11-11-2024 Chronic Other and ill-defined heart disease (12 sources) Other ill-defined heart diseases; Translations: [Heart disease, unspecified] Onset: 5 11-18-2024 Chronic Other and ill-defined heart disease (3 sources) Mild left ventricular systolic dysfunction; Translations: [Other ill-defined heart diseases] 12-08-2024 Chronic Other circulatory disease (3 sources) Low blood pressure; Translations: [Hypotension, unspecified] Onset: 5 06-04-2022 Episodic Other connective tissue disease (4 sources) Presence of right artificial hip joint; Translations: [Hip joint replacement] Onset: 2 12-07-2024 Chronic Other connective tissue disease (1 source) Presence of unspecified artificial hip joint; Translations: [PRESENCE UNS ARTIFICIAL HIP JOINT] Onset: 2 Chronic Other connective tissue disease (2 sources) History of total replacement of right hip joint; Translations: [Presence of right artificial hip joint] 03-11-2025 Chronic Other diseases of bladder and urethra (20 sources) Mass of urinary bladder 01-26-2022 Chronic Other diseases of bladder and urethra (4 sources) Other specified disorders of bladder; Translations: [OTHER SPECIFIED DISORDERS BLADDER] Onset: 2 Chronic Other diseases of kidney and ureters (20 sources) Kidney disease 04-07-2019 Episodic Other diseases of kidney and ureters (1 source) Urinary tract obstruction; Translations: [Other obstructive and reflux uropathy] Onset: 3 Episodic Other disorders of stomach and duodenum (3 sources) Indigestion; Translations: [Functional dyspepsia] Episodic Other ear and sense organ disorders (9 sources) Hearing loss; Translations: [Unspecified hearing loss] Chronic Other ear and sense organ disorders (18 sources) Impacted cerumen; Translations: [Impacted cerumen] Episodic Other eye disorders (12 sources) Scarred macula of left eye; Translations: [Scarred macula of left eye] Onset: 5 Chronic Other eye disorders (3 sources) Posterior vitreous detachment; Translations: [Posterior vitreous detachment] Chronic Other eye disorders (3 sources) Vitreous degeneration, bilateral; Translations: [PVD (posterior vitreous detachment), both eyes] Chronic Other eye disorders (6 sources) 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), left eye; Translations: [Macular scar, left] Chronic Other eye disorders (3 sources) Chorioretinal disorders in diseases classified elsewhere Chronic Other gastrointestinal disorders (2 sources) Gastrostomy present; Translations: [Gastrostomy status] 03-19-2025 Chronic Other gastrointestinal disorders (2 sources) Gastrostomy status; Translations: [Gastrostomy status (Multi)] Onset: 5 Chronic Other gastrointestinal disorders (20 sources) Oropharyngeal dysphagia; Translations: [Dysphagia, oropharyngeal phase] Onset: 2 06-10-2022 Episodic Comment on above: severe on MBS Other gastrointestinal disorders (20 sources) Dysphagia; Translations: [Dysphagia, unspecified] Onset: 2 Episodic Other gastrointestinal disorders (20 sources) Heartburn; Translations: [Heartburn] Onset: 2 Episodic Other injuries and conditions due to external causes (9 sources) Adverse effect of radiation therapy; Translations: [Effects of radiation, unspecified] Episodic Other liver diseases (10 sources) Lesion of liver; Translations: [Liver disease, unspecified] 08-20-2024 Chronic Other lower respiratory disease (1 source) Dyspnea; Translations: [Dyspnea, unspecified] Onset: 2 Episodic Other nervous system disorders (1 source) Metabolic encephalopathy; Translations: [Metabolic encephalopathy] Onset: 5 Chronic Other nervous system disorders (1 source) Impaired cognition; Translations: [Other symptoms and signs involving cognitive functions and awareness] Onset: 5 Episodic Other non-epithelial cancer of skin (20 sources) Malignant neoplasm of skin of face; Translations: [Unspecified malignant neoplasm of skin of other and unspecified parts of face] 03-22-2019 Episodic Other non-traumatic joint disorders (1 source) Pain in right hip joint; Translations: [Pain in right hip] Episodic Other non-traumatic joint disorders (7 sources) Pain in left knee; Translations: [Left knee pain] Episodic Other non-traumatic joint disorders (1 source) Hip pain; Translations: [Pain in right hip] 06-28-2024 Episodic Other nutritional; endocrine; and metabolic disorders (1 source) Hypocalcemia; Translations: [HYPOCALCEMIA] Onset: 2 Chronic Other nutritional; endocrine; and metabolic disorders (7 sources) Hypocalcemia; Translations: [Hypocalcemia] Chronic Other screening for suspected conditions (not mental disorders or infectious disease) (20 sources) Encounter for observation for other suspected diseases and conditions ruled out; Translations: [Suspected malignancy] Onset: 2 04-16-2019 Episodic Other upper respiratory disease (1 source) Velopharyngeal inadequacy; Translations: [Other diseases of pharynx] 03-19-2025 Episodic Other upper respiratory disease (2 sources) Other diseases of pharynx; Translations: [Other diseases of pharynx] Onset: 5 Episodic Other upper respiratory infections (8 sources) Laryngitis due to gastroesophageal reflux; Translations: [Acute laryngitis without mention of obstruction] Episodic Pancreatic disorders (not diabetes) (10 sources) Cyst of pancreas; Translations: [Cyst of pancreas] 08-08-2024 Episodic Pathological fracture (18 sources) Pathological fracture of femur; Translations: [Pathological fracture, left femur, initial encounter for fracture] Onset: 5 11-10-2024 Episodic Regional enteritis and ulcerative colitis (1 source) Crohn's disease, unspecified, without complications; Translations: [CROHNS DISEASE UNS W/O COMP] Onset: 2 Chronic Residual codes; unclassified (7 sources) Sleep apnea; Translations: [Sleep apnea, unspecified] Chronic Residual codes; unclassified (8 sources) History of clinical finding in subject; Translations: [Personal history of other specified diseases] Episodic Residual codes; unclassified (1 source) Patient encounter status; Translations: [Other specified health status] Onset: 2 Episodic Residual codes; unclassified (1 source) Urinary catheter in situ; Translations: [Other postprocedural status] 06-01-2022 Episodic Residual codes; unclassified (2 sources) History of repair of mitral valve; Translations: [Other postprocedural status] Onset: 2 06-11-2022 Episodic Residual codes; unclassified (1 source) H/O cardiac surgery; Translations: [Other specified postprocedural states] Episodic Residual codes; unclassified (1 source) Presence of other specified devices; Translations: [Z97.8] Onset: 5 Episodic Residual codes; unclassified (1 source) Other specified health status; Translations: [Other specified health status] Onset: 5 Episodic Respiratory failure; insufficiency; arrest (adult) (1 source) Acute respiratory failure; Translations: [Acute respiratory failure, unspecified whether with hypoxia or hypercapnia] Onset: 5 Episodic Respiratory failure; insufficiency; arrest (adult) (3 sources) Respiratory failure; insufficiency; arrest (adult) 06-03-2022 Retinal detachments; defects; vascular occlusion; and retinopathy (20 sources) Central retinal vein occlusion; Translations: [Central retinal vein occlusion, right eye, with macular edema] Onset: 7 03-31-2017 Chronic Secondary malignancies (17 sources) Metastasis to head and neck lymph node; Translations: [Secondary and unspecified malignant neoplasm of lymph nodes of head, face, and neck] Onset: 3 05-22-2024 Chronic Secondary malignancies (18 sources) Secondary malignant neoplasm of parotid gland; Translations: [Secondary malignant neoplasm of other specified sites] Resolved: 8 Chronic Secondary malignancies (4 sources) Secondary and unspecified malignant neoplasm of lymph nodes of head, face and neck; Translations: [Secondary and unspecified malignant neoplasm of lymph nodes of head, face and neck] Onset: 3 Chronic Skin and subcutaneous tissue infections (7 sources) Cellulitis of lower limb; Translations: [Cellulitis of left lower limb] Episodic Spondylosis; intervertebral disc disorders; other back problems (20 sources) Degeneration of lumbar intervertebral disc; Translations: [Other intervertebral disc degeneration, lumbar region] Onset: 6 10-24-2015 Chronic Unclassified (20 sources) Drug therapy finding 04-16-2019 Unclassified (20 sources) Severe mitral valve regurgitation 05-26-2022 Unclassified (20 sources) Severe tricuspid valve regurgitation 05-26-2022 Unclassified (2 sources) BEDSIDE SPIROMETRY CICU 06-01-2022 Comment on above: BEDSIDE SPIROMETRY C ICU Unclassified (1 source) 3 MONTHS 05-04-2022 Comment on above: 3 MONTHS Unclassified (1 source) XRAY PRIOR TO VISIT; S/P CABG, MV REPAIR 06-11-2022 Comment on above: XRAY PRIOR TO VISIT; S/P CABG, MV REPAIR Unclassified (1 source) PHONE VISIT; S/P CABG, MV REPAIR 06-11-2022 Comment on above: PHONE VISIT; S/P CAB G, MV REPAIR Unclassified (1 source) Brown catheter status 06-01-2022 Unclassified (1 source) Bladder cancer 06-01-2022 Unclassified (1 source) Schatzki's ring of distal esophagus 06-01-2022 Unclassified (1 source) Nonrheumatic mitral valve disorder 06-02-2022 Unclassified (1 source) Presence of cardiac defibrillator 06-07-2022 Unclassified (1 source) CHB (complete heart block) 06-07-2022 Unclassified (1 source) Sick sinus syndrome due to SA node dysfunction 06-07-2022 Unclassified (1 source) Aftercare following surgery 06-07-2022 Unclassified (1 source) Coronary artery disease involving [place] coronary artery of [place] heart without angina pectoris 06-08-2022 Unclassified (1 source) Mitral regurgitation 06-08-2022 Unclassified (2 sources) S/P mitral valve repair 06-08-2022 Unclassified (1 source) S/P CABG (coronary artery bypass graft) 06-08-2022 Unclassified (1 source) S/P left atrial appendage ligation 06-08-2022 Unclassified (1 source) Severe malnutrition 06-10-2022 Unclassified (1 source) PERSONAL HISTORY OF COVID-19; Translations: [PERSONAL HISTORY OF COVID-19] Onset: 2 Unclassified (4 sources) CONTACT W/AND (SUSP) EXPOS COVID-19; Translations: [CONTACT W/AND (SUSP) EXPOS COVID-19] Onset: 2 Unclassified (3 sources) Permanent atrial fibrillation; Translations: [Permanent atrial fibrillation] Onset: 5 Unclassified (11 sources) A [facility] screening has identified you as FRAIL or [...] Four Ways to Beat the Frailty Risk [email or web address] v-hannzp-fopj-ways-to- xymu-fvn-yxz ilty-risk 11-12-2024 Unclassified (1 source) DDD (degenerative disc disease), lumbar; Translations: [DDD (degenerative disc disease), lumbar] Onset: 4 Unclassified (1 source) K30 - Functional dyspepsia Urinary tract infections (1 source) Urinary tract infectious disease; Translations: [Urinary tract infection, site not specified] 06-21-2023 Episodic Past or Other Problems Problem Classification Problem Date Documented Da te Episodic/Chronic Complication of device; implant or graft (9 sources) Other mechanical complication of other urinary catheter, initial encounter; Translations: [Displacement of indwelling urethral catheter, initial encounter] Onset: 04-30-2022 Episodic Deficiency and other anemia (1 source) Anemia, unspecified; Translations: [ANEMIA UNSPECIFIED] Onset: 05-19-2022 Episodic Esophageal disorders (4 sources) Esophageal disorders; Translations: [Gastroesophageal reflux disease with esophagitis without hemorrhage] Immunizations and screening for infectious disease (20 sources) Blood group antibody titer - finding; Translations: [Other specified abnormal immunological findings in serum] Onset: 10-06-2022 10-06-2022 Episodic Inflammation; infection of eye (except that caused by tuberculosis or sexually transmitteddisease) (9 sources) Blepharitis of upper and lower eyelids of bilateral eyes; Translations: [Unspecified blepharitis right eye, upper and lower eyelids] Onset: 03-13-2025 03-13-2025 Episodic Mycoses (15 sources) Histoplasmosis, unspecified; 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] Onset: 03-13-2025 Episodic Nonspecific chest pain (5 sources) Chest pain; Translations: [Other chest pain] Onset: 05-14-2022 Episodic Other aftercare (1 source) termination clerk (current) use of anticoagulants; Translations: [ASSISTED CURRNT USE ANTICOAGULANTS] Onset: 08-17-2022 Episodic Other aftercare (1 source) Other terminal computer operator (current) drug therapy; Translations: [OTH CPS TEAM LEAD CURRENT DRUG THERAPY] Onset: 08-17-2022 Episodic Other ear and sense organ disorders (7 sources) Impacted cerumen in left ear; Translations: [Impacted cerumen, left ear] Onset: 08-23-2023 05-22-2024 Episodic Other ear and sense organ disorders (6 sources) Impacted cerumen in right ear; Translations: [Impacted cerumen, right ear] Onset: 11-08-2023 11-08-2023 Episodic Other ear and sense organ disorders (2 sources) Impacted cerumen, left ear; Translations: [Impacted cerumen, left ear] Onset: 08-23-2023 Episodic Other eye disorders (9 sources) Dry eyes; Translations: [Dry eye syndrome of bilateral lacrimal glands] Onset: 03-13-2025 03-13-2025 Episodic Other gastrointestinal disorders (18 sources) Dysphagia, unspecified; Translations: [Dysphagia, unspecified] Onset: 10-24-2024 11-18-2024 Episodic Other gastrointestinal disorders (2 sources) Dysphagia, oropharyngeal phase; Translations: [Dysphagia, oropharyngeal phase] Onset: 08-23-2023 Episodic Other non-traumatic joint disorders (1 source) Pain in right hip; Translations: [Pain in right hip] Onset: 06-28-2024 Episodic Pneumonia (except that caused by tuberculosis or sexually transmitted disease) (4 sources) Pneumonia, unspecified organism; Translations: [Pneumonia] Onset: 05-19-2022 10-31-2024 Episodic Residual codes; unclassified (1 source) Acquired absence of other specified parts of digestive tract; Translations: [ACQ ABSENCE OTH PART DIGESTV TRACT] Onset: 08-17-2022 Episodic Residual codes; unclassified (1 source) Other specified postprocedural states; Translations: [OTH SPECIFIED POSTPROCEDURAL STATES] Onset: 05-04-2022 Episodic Shock (3 sources) Shock; Translations: [Shock, unspecified] Onset: 10-24-2024 10-24-2024 Episodic Spondylosis; intervertebral disc disorders; other back problems (20 sources) Neck pain; Translations: [Spinal stenosis of lumbar region] Onset: 10-24-2015 10-24-2015 Episodic Syncope (1 source) Syncope and collapse; Translations: [SYNCOPE AND COLLAPSE] Onset: 01-28-2022 Episodic Unclassified (1 source) History of clinical finding in subject; Translations: [History of ulceration] Unclassified (1 source) CAD 05-28-2022 Comment on above: CAD Unclassified (1 source) CAD I25.10 06-01-2022 Comment on above: CAD I25.10 Unclassified (1 source) CONTACT W/AND (SUSP) EXPOS COVID-19; Translations: [CONTACT W/AND (SUSP) EXPOS COVID-19] Onset: 03-09-2022 Unclassified (5 sources) Onset: 08-23-2023 Resolved: 05-21-2025 08-23-2023 Unclassified (15 sources) CRVO with ME (chief complaint) Onset: 06-29-2022 Resolved: 12-04-2024 Unclassified (20 sources) CRVO (chief complaint) Onset: 09-12-2019 Resolved: 06-07-2024 Unclassified (3 sources) CRVO (chief complaint) denies new vision changes (chief complaint) Onset: 01-13-2022 Unclassified (15 sources) CRVO (chief complaint) stable vision (chief complaint) Onset: 04-03-2020 Resolved: 11-04-2021 Unclassified (3 sources) Central Retinal Vein Occlusion (chief complaint) Stable Vision (chief complaint) Onset: 05-13-2021 Unclassified (3 sources) CRVO (chief complaint) decreased vision (chief complaint) stable vision (chief complaint) Onset: 04-23-2020 Unclassified (3 sources) CRVO (chief complaint) decreased vision (chief complaint) Onset: 12-19-2019 Unclassified (3 sources) CRVO (chief complaint) stable (chief complaint) Onset: 06-13-2019 Unclassified (3 sources) CRVO (chief complaint) decrease in vision (chief complaint) stable vision (chief complaint) Onset: 03-15-2019 Unclassified (6 sources) vein occlusion (chief complaint) Onset: 08-23-2018 Resolved: 02-07-2019 Unclassified (6 sources) CRVO with macular edema (chief complaint) stable vision (chief complaint) Onset: 09-07-2017 Resolved: 12-06-2018 Unclassified (3 sources) CRVO (chief complaint) decrease in vision (chief complaint) floaters/flashes (chief complaint) Onset: 05-17-2018 Unclassified (3 sources) vein occlusion (chief complaint) improved vision (chief complaint) is unaware of any vision changes (chief complaint) Onset: 03-22-2018 Unclassified (3 sources) CRVO with edema (chief complaint) blurry vision (chief complaint) reports no visual changes (chief complaint) Onset: 02-01-2018 Unclassified (3 sources) new blurry vision (chief complaint) blurry vision (chief complaint) Onset: 12-29-2017 Unclassified (3 sources) CRVO (chief complaint) denies changes (chief complaint) Onset: 12-08-2017 Unclassified (3 sources) CRVO (chief complaint) increased blurry vision (chief complaint) no change (chief complaint) Onset: 09-28-2017 Unclassified (3 sources) CRVO with macular edema (chief complaint) notes of more flashes (chief complaint) denies visual changes (chief complaint) Onset: 06-22-2017 Unclassified (3 sources) Injection only of Eylea for a CRVO with edema (chief complaint) increase in vision (chief complaint) flashes (chief complaint) Onset: 05-04-2017 Unclassified (3 sources) macular edema (chief complaint) decreased vision (chief complaint) Onset: 03-31-2017 NEGATED: Highlighted row has not occurred!Residual codes; unclassified (8 sources) Disease Episodic Results Test Name Value Interpretation Reference Range Facility XR Knee - left 3 [facility] Result: Bilateral standing PA, bilateral sunrise, and lateral of the affected knee were imaged today in the office.Patient has significant [id number] changes to the medial compartment of the left knee as well as some developing patellofemoral disease of both knees in the mild to moderate state no evidence of fracture. He has staple clips from previous vessel graft in both leg seen. No significant change from previous imaging. [facility] Radiology Study observation (narrative) [facility] No Panel Informationon 04-09 Jacques Aguilar MA 04/09/2025 4:14 PM L Inj/Asp: L knee on 04/09/2025 2:47 PM Indications: pain Details: 22 G needle, anterolateral approach Medications: 32 mg triamcinolone acetonide 32 MG Procedure, treatment alternatives, risks and benefits explained, specific risks discussed. Consent was given by the patient. Immediately prior to procedure a time out was called to verify the correct patient, procedure, equipment, net application support specialist and site/side marked as required. Patient was prepped and draped in the usual sterile fashion. [facility] Heart and Vascular Office/Cl inic Noteon 03-22-2025 Heart and Vascular Office/Clinic Note Heart and Vascular Office/Clinic Note Chief Complaint 3 month F/U History of Present Illness Patient is an 85 male with past medical history of CAD with CABG x 3 in 05/2022, hypertension, hyperlipidemia, persistent atrial fibrillation with prior left atrial appendage ligation in 05/2022, and status post pacemaker placement due to sick sinus syndrome, mitral regurgitation with mitral repair in 05/2022, tricuspid regurgitation. Patient most recent echo in 08/2022 showed mild to moderate LVH, severe dilation to left and right atria, mild aortic regurgitation, trace to mitral regurgitation status post mitral valve repair, moderate tricuspid regurgitation. Patient comes in for 3-month follow-up today. Patient comes in as his who provides significant history today. Reviewed prior echo, heart cath. At last visit, I saw patient at which time he was continued on current medications. Patient believes that he has been doing well from a cardiac standpoint since last visit. Patient is compliant with lisinopril and metoprolol as well as rosuvastatin for CAD. Patient denies any issues with chest pains or shortness of breath or any other anginal symptoms at this time. Patient reports that he is always in A-fib at this time. Patient also has had a pacemaker and is usually paced with pacemaker. He did have a pacemaker check about 3 months ago and no changes were made. He did have a high ventricular rate on about 5 occasions, but patient is quite a bit less than the 25 medications he had on his previous pacemaker check. Patient has not noticed any issues with heart palpitations or dizziness/lightheadedness at all since last visit. Patient is no longer taking lisinopril and blood pressure is very well-controlled on just the metoprolol 25 mg twice daily. Patient feels he is doing well and is getting stronger from when he was hospitalized in early 2024. Patient denies chest pain, shortness of breath, heart palpitations, and swelling in lower legs. REVIEWED PRIOR NOTE FROM 12/20/2024: Patient comes in for 4-month follow-up on CAD, A-fib, status post pacemaker. Patient comes with his who provides significant history today. Reviewed prior echo, heart cath, hospital notes. At last visit, I saw patient at which time he was continued on current medications. Patient was hospitalized at [facility] since last visit due to unresponsive episode at home. During stay, patient had episodes of ventricular tachycardia and was started on IV amiodarone. Patient was last transferred out of [facility] to tertiary facility, in [place], after VT episodes. No additional records in our system once pt was transferred. Patient eventually came back to, but they are unsure whenever caused the episode of unresponsiveness. Unfortunately patient was having issues with swallowing and failed a swallow study so [facility] . Patient was also found to have a hip fracture that he had to have surgery and partial hip replacement for and is now going to start rehab on. Patient was at rehab facility for a period of time, but is now back home with his . Patient believes that he has been doing well from a cardiac standpoint since last visit. Patient is compliant with lisinopril and metoprolol as well as rosuvastatin for CAD. Patient reports that he is always in A-fib at this time. Patient also has had a pacemaker. He did have a pacemaker check about 2-4 weeks ago and no changes were made. He did have a high ventricular rate on about 5 occasions, but patient is quite a bit less than the 25 medications he had on his previous pacemaker check. Patient denies chest pain, shortness of breath, heart palpitations, and swelling in lower legs. Review of Systems PHQ Score Initial Depression Screen Score: 0 SCORE ROS - Provider Constitutional: no fever, no chills, no sweats, no weakness Respiratory: no shortness of breath, no cough Cardiovascular: no chest pain Neuro: no dizziness. no loss of consciousness Physical Exam Vitals & Measurements HR: 70(Peripheral) BP: 112/70 SpO2: 98% HT: 72 in HT: 182 cm WT: 72.8 kg WT: 160.496 lb BMI: 21.98 General: alert, no acute distress Cardiovascular: regular rate and rhythm, no murmur normal peripheral perfusion Respiratory: Lungs CTAB, respirations non labored Extremities: no edema left lower extremity. no edema right lower extremity Neurological: oriented x 4, LOC appropriate for age, speech normal Skin: Warm, dry, intact- no rash or concerning lesions Cardiac Diagnostics (08/27/2022 16:25 EST Echo Transthoracic Complete) Interpretation Summary mild to moderate left ventricular hypertrophy. Unable to quantify diastolic dysfunction due to atrial fibrillation. The left atrium is severely dilated. The right atrium is severely dilated. The right ventricular systolic function is mildly reduced. Mild aortic regurgitation. Trivial mitral vegetation There is moderate tricuspid regurgitation. Estimated (more content not included)... Normal [facility] Comment on above: Result Comment: Elec tronically Signed By: Juan STYLES, Ric Guillory\.br\Date and Time Signed: 03/22/25 13:56 EDT Ophthalmic OCT panelon 03-13 [facility] Right Eye Images reviewed and comparison made to baseline, Images reviewed. To assess optic nerve function and for use in future follow-up. Reliability: good and adequate. Left Eye Images reviewed and comparison made to baseline, Images reviewed. To assess optic nerve function and for use in future follow-up. Reliability: good and adequate. 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 Stable. [facility] Radiology Study observation (narrative) [facility] No Panel Informationon 02-27 Jacques Aguilar MA 02/27/2025 4:22 PM L Inj/Asp: L knee on 02/27/2025 10:47 AM Indications: pain Details: 25 G needle, ultrasound-guided anterolateral approach Medications: 12 mg betamethasone acetate-betamethasone sodium phosphate 6 (3-3) MG/ML Procedure, treatment alternatives, risks and benefits explained, specific risks discussed. Consent was given by the patient. Immediately prior to procedure a time out was called to verify the correct patient, procedure, equipment, net application support specialist and site/side marked as required. Patient was prepped and draped in the usual sterile fashion. [facility] XR Adult Swallowing Function w/ Videoon 2025 XR Adult Swallowing Function w/ Video Exam Date/Time: 02/19/2025 09:47 EDT Reason for Exam: R13.10 Dysphagia, unspecified Report IMPRESSION: ABNORMAL MODIFIED BARIUM SWALLOW, WITH TRACHEAL ASPIRATION PRESENT. A FULL REPORT WILL BE MADE BY THE SPEECH PATHOLOGY TEAM. EXAM: XR Adult Swallowing Function w/ Video DATE: 02/19/2025 8:57 AM CLINICAL HISTORY: R13.10 Dysphagia, unspecified. COMPARISON: 02/06/2024. TECHNIQUE: Lateral videofluoroscopy was provided during speech therapy evaluation during ingestion of various barium liquids and semisolids. FINDINGS: Oral and pharyngeal phases are within functional limits. Deep laryngeal penetration is present with mild to moderate tracheal aspiration with thin barium liquid, without cough response. Deep laryngeal penetration with nectar thickened liquid is present, with minimal tracheal aspiration. Nasal pharyngeal reflux and moderate to large residual collections are present, which mildly improved with continued swallowing. A full report will be made by the speech pathology team. Ka,r in mGy = 6.50 DAP = 149.80 (\XB5\Gy*m\XB2\) Ordering Provider: MYLENE DUNN FINAL REPORT Dictated: 2025 12:32 pm Zafar Barfield MD Signed (Electronic Signature): 2025 12:32 pm Signed by: Zafar Barfield MD Transcribed by: GENO Technologist: MARA Palacios [facility] Jesus 01-17-2025 CNOV Office Visit (UROSMN ) ----- BRAVO ARCE ([id number]) 1940 M Date Time Provider Department 01/17/25 9:45 AM WEIGHT, JOSE HOWARDSMN During your visit today, we recorded the following information about you: Danielle Torres RN 01/17/2025 10:48 AM Signed Patient ID with (2) Identifiers, Verified by: Danielle Torres RN Actual procedure/procedure scheduled: Yes Performing provider/scheduled provider: Yes Patient was roomed in: Q9- 06 Web Designer Developer offered:Patient accepts, visit chaperoned by Patient arrived in the room at: 0945 Patient ready for procedure: 0956 The procedure started at ( Time Only): 1017 The procedure ended at: 1023 Was the procedure delayed: No ProNox Utilized: No The patient left the procedure room at: 1045 Danielle Torres RN PRE PROCEDURE ASSESSMENT- Cysto Latex Allergy: No Allergies reviewed and updated. Yes Pre-Procedure Vital Signs: BP: 133/84 Pulse: 70 Heart valve replacement: No Joint replacement: Yes, partial hip in 10/2024 Patient unable to swallow, antibiotic given via feeding tube Back Office UA otained: no PROCEDURE PREP-Cysto Patient Prep: Betadine Placement of Sterile Drape: COMPLETED Anesthetic Given:Administered by MD - see Procedure Physician Note. Danielle Torres RN POST PROCEDURE NURSE ASSESSMENT Present along with physician during procedure exam. Danielle Torres RN Current pain intensity is 0 on a 0-10 pain scale. Danielle Torres RN AMBULATORY PATIENT EDUCATION THE FOLLOWING WAS EVALUATED Motivation To Learn: Interested Family/Significant Other Support: High - Very involved in pt care Cognitive Ability: Alert/Oriented Method of Instruction: Individual instruction Written instruction/Handouts The Following Influencing Factors Were Barriers To This Education Session: None The Following Physical Limitations Were Barriers To This Education Session: None Instruction Provided To: Patient Digital Service Engineer Present: not applicable Discipline: Nursing Learning Topic: SURVIVAL SKILLS: Complication Prevention Symptom Management Patient Evaluation: Verbalizes understanding: Yes Supplemental Material Given: Written Material Instructed By Danielle Torres RN In Department Urology . UNIVERSAL PROTOCOL / SAFETY CHECKLIST Procedure to be Performed: Cystoscopy Sign In: A Moment of CARE was completed. Appropriate PPE (Personal Protective Equipment) worn by all providers involved with the procedure. Special equipment not required. Patient/Surrogate Stated/Verified: Patient name, Date of , Relevant allergies, and The intended procedure Time Out: Relevant labs, photos, and/or imaging studies have been reviewed. Intended patient and procedure match the source document(s) (e.g. consent, HANDP, associated studies [imaging, pathology]) match the intended patient and procedure. Consent obtained and matches the intended procedure. Yes. Correct side/site is not applicable. Medications required for this procedure are verified. Fire risk assessed and interventions discussed. Implants: are not applicable. Sign Out: Specimens not collected. All instruments, equipment, possible retained foreign bodies are accounted for. Yes. The post-procedure plan of care has been communicated to the patient or surrogate. Chester Brown 01/24/2025 9:19 AM Signed [place] [id number] AMBULATORY PROCEDURE NOTE NAME: Bravo Arce AGE: [id number] year old CLINIC #: [id number] DATE: January 17, 2025 SURGEON: Jose Garcia MD, MS PROCEDURE: Cystoscopy ANESTHESIA: Lidocaine gel per urethra DIAGNOSIS: Bladder cancer Date of Initial Diagnosis: 04/2022 Tumor Stage of Initial Diagnosis: T1 Grade at Initial Diagnosis: high. Site of First Diagnosis: Bladder Any Recurrence? N/A Intravesical Treatments: TURBT 05/17 Date of Last Cysto: 06/28/2024 Date of Last Upper Tract Imagin07/20/24 CTU INDICATION: Surveillance FINDINGS: Tumor present: No Urethra: Normal Prostate: Moderate lateral lobes Verumontanum: Open Urine cytology: Not sent PROCEDURE: After informed consent was obtained, the patient was taken to the endoscopy suite. A time out was performed where the patient and the procedure were identified in the presence of the Nursing and Surgical Staff. Patient was placed in supine position, prepped and draped in the standard sterile fashion. Lidocaine gel was placed per urethra for local anesthesia. Cystoscopy was then performed using a 17 F flexible cystoscope. Sterile technique was maintained throughout. Please refer to above for specific findings during this part of the procedure. After carefully and atraumatically inspecting the urethra, prostate, and bladder, the bladder was emptied and the cystoscope was removed. The patient tolerated the procedure well and there were no complications. ASSESS (more content not included)... [facility] Office/Cl inic Noteon 12-21-2024 Heart and Vascular Office/Clinic Note Heart and Vascular Office/Clinic Note Chief Complaint 4 month f/u History of Present Illness Patient is an 82 male with past medical history of CAD with CABG x 3 in 05/2022, hypertension, hyperlipidemia, persistent atrial fibrillation with prior left atrial appendage ligation in 05/2022, and status post pacemaker placement due to sick sinus syndrome, mitral regurgitation with mitral repair in 05/2022, tricuspid regurgitation. Patient most recent echo in 08/2022 showed mild to moderate LVH, severe dilation to left and right atria, mild aortic regurgitation, trace to mitral regurgitation status post mitral valve repair, moderate tricuspid regurgitation. Patient comes in for 4-month follow-up on CAD, A-fib, status post pacemaker. Patient comes with his who provides significant history today. Reviewed prior echo, heart cath, hospital notes. At last visit, I saw patient at which time he was continued on current medications. Patient was hospitalized at [facility] since last visit due to unresponsive episode at home. During stay, patient had episodes of ventricular tachycardia and was started on IV amiodarone. Patient was last transferred out of [facility] to tertiary facility, in [place], after VT episodes. No additional records in our system once pt was transferred. Patient eventually came back to, but they are unsure whenever caused the episode of unresponsiveness. Unfortunately patient was having issues with swallowing and failed a swallow study so [facility] . Patient was also found to have a hip fracture that he had to have surgery and partial hip replacement for and is now going to start rehab on. Patient was at rehab facility for a period of time, but is now back home with his . Patient believes that he has been doing well from a cardiac standpoint since last visit. Patient is compliant with lisinopril and metoprolol as well as rosuvastatin for CAD. Patient reports that he is always in A-fib at this time. Patient also has had a pacemaker. He did have a pacemaker check about 2-4 weeks ago and no changes were made. He did have a high ventricular rate on about 5 occasions, but patient is quite a bit less than the 25 medications he had on his previous pacemaker check. Patient denies chest pain, shortness of breath, heart palpitations, and swelling in lower legs. REVIEWED PRIOR NOTE FROM 07/11/2024: Patient comes in for 6-month follow-up today. At last visit, patient saw Dr. Uriarte at which time he was maintained on current medications. EKG in the office today shows A-fib with controlled rate at 71 bpm. Patient reports that he is always in A-fib at this time. Patient also has had a pacemaker, but is not being paced based on EKG today. He did have a pacemaker check about 2-4 weeks ago and no changes were made. He did have a high ventricular rate on about 25 occasions, but the longest it lasted was 39 seconds. Patient reports that he has been feeling pretty well overall. Patient states that he does not have any heart palpitations. He had a left atrial appendage ligation in 2021 which was confirmed by CT scan. Patient was was changed from Eliquis to Plavix due to this and patient's request to get off of the Eliquis. Patient is compliant with Plavix 75 mg daily and metoprolol 25 mg twice daily for rate control. Patient is compliant with lisinopril and metoprolol as well as rosuvastatin for CAD. Patient denies chest pain, shortness of breath, heart palpitations, and swelling in lower legs. Review of Systems PHQ Score Initial Depression Screen Score: 0 SCORE ROS - Provider Constitutional: no fever, no chills, no sweats, no weakness Respiratory: no shortness of breath, no cough Cardiovascular: no chest pain Neuro: no dizziness. no loss of consciousness Physical Exam Vitals & Measurements HR: 93(Peripheral) RR: 16 BP: 102/70 SpO2: 89% HT: 182 cm HT: 72 in WT: 149.032 lb WT: 67.6 kg BMI: 20.41 General: alert, no acute distress Cardiovascular: irregularly-irregular rate and rhythm, no murmur normal peripheral perfusion Respiratory: Lungs CTAB, respirations non labored Extremities: no edema left lower extremity. no edema right lower extremity Neurological: oriented x 4, LOC appropriate for age, speech normal Skin: Warm, dry, intact- no rash or concerning lesions Cardiac Diagnostics (08/27/2022 16:25 EST Echo Transthoracic Complete) Interpretation Summary mild to moderate left ventricular hypertrophy. Unable to quantify diastolic dysfunction due to atrial fibrillation. The left atrium is severely dilated. The right atrium is severely dilated. The right ventricular systolic function is mildly reduced. Mild aortic regurgitation. Trivial mitral vegetation There is moderate tricuspid regurgitation. Estimated RVSP is severely elevated at 66 mmHg. In comparison echo report dated 02/09/2022, LV function has remained the same, severe mitral regurgitation has been corrected with solange (more content not included)... Normal [facility] Comment on above: Result Comment: Elec tronically Signed By: Juan STYLES, Ric Guillory\stacy\Date and Time Signed: 12/21/24 14:07 EDT XR Knee - left 3 [facility] Result: Multiple weightbearing views (AP, Lateral and sunrise) are reviewed for the permanent PACS record. 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 No fracture, dislocation, tumor or infection seen. Images are reviewed with the patient at length. [facility] Radiology Study observation (narrative) [facility] XR pelvis 1-2Von 12-07-2024 XR pelvis 1-2V [facility] [address] [place] [address] XRay Report Signed Patient: Bravo Arce MR#: [id number] : 1940 Acct:[id number] Age/Sex: 84 / M ADM Date: 12/07/24 Loc: [facility] [place] Room: Type: [facility] Attending Dr: Godwin Gordillo DO Copies to: Godwin Gordillo DO Ordering Provider: Godwin Gordillo DO Date of [...] HARDWARE COMPLICATION IS SEEN.. Impression dictated by: Kayden Mckeon Jr., D.OJenniffer12/10/2024 9:25 AM Dictation Location: [place] [address] Transcribed By: [facility] 12/10/24924 Dictated By: Kayden Mckeon Jr, DO 12/07/24 1412 Signed By: 12/10/24924 Normal [facility] Glucose Glucometer (BldC) [M ass/Vol]Ordered By: Jorge Clifton on 11-30-2024 Glucose [Mass/Vol] Capillary blood gluc ose measurement by glucometer (mass/volume) [facility] Comment on above: Random Glucose Refer ence Range is dependent on time and content of last meal. Glucose of more than 200 mg/dL in a nonstressed, ambulatory subject supports the diagnosis of Diabetes Mellitus. Glucose Poct Glucometerson 0 11-30-2024 Commemt1 Glu2: Cleaned Meter Normal [facility] Comment on above: Result Comment: PERF ORMED BY: [facility] [address] [place] [address] PATHOLOGIST [employer] JESSI ARAMBULA M.D. Performed By: #### G LULS #### Point of Care testing , Glucose [Mass/Vol] 89 mg/dL Normal [facility] Comment on above: Result Comment: [facility] Glucose Reference Range is dependent on time and content of last meal. Glucose of more than 200 mg/dL in a nonstressed, ambulatory subject supports the diagnosis of Diabetes Mellitus. Performed By: #### G LULS #### Point of Care testing , Glucose [Mass/Vol] 108 mg/dL Normal [facility] Comment on above: Result Comment: [facility] Glucose Reference Range is dependent on time and content of last meal. Glucose of more than 200 mg/dL in a nonstressed, ambulatory subject supports the diagnosis of Diabetes Mellitus. PERFORMED BY: [facility] [address] [place] [address] PATHOLOGIST [employer] JESSI ARAMBULA M.D. Performed By: #### G LULS #### Point of Care testing , Glucose [Mass/Vol] 124 mg/dL Normal [facility] Comment on above: Result Comment: [facility] Glucose Reference Range is dependent on time and content of last meal. Glucose of more than 200 mg/dL in a nonstressed, ambulatory subject supports the diagnosis of Diabetes Mellitus. PERFORMED BY: [facility] [address] [place] [address] PATHOLOGIST [employer] J[employer]I ARAMBULA M.D. Performed By: #### G LULS #### Point of Care testing , No Panel InformationOrdered By: Jorge Clifton on 11-30-2024 Bedside Glucose Comment Glu2: cleaned meter [facility] Basic Metabolic Panelon Anion gap [Moles/Vol] 8.9 mmol/L Normal 6.0-15.0 [facility] Comment on above: Performed By: #### G LULS #### Point of Care testing , Calcium [Mass/Vol] 8.3 mg/dL Low 8.6-10.3 [facility] Comment on above: Performed By: #### G LULS #### Point of Care testing , Chloride [Moles/Vol] 100 mmol/L Normal 98-107 [facility] Comment on above: Performed By: #### G LULS #### Point of Care testing , CO2 [Moles/Vol] 27.5 mmol/L Normal 21.0-31.0 [facility] Comment on above: Performed By: #### G LULS #### Point of Care testing , Creatinine [Mass/Vol] 0.51 mg/dL Low 0.70-1.30 [facility] Comment on above: Performed By: #### G LULS #### Point of Care testing , Creatinine Clr Calc Pharmacy 63.54 Normal [facility] Comment on above: Result Comment: PERF ORMED BY: [facility] [address] [place] [address] PATHOLOGIST [employer] JESSI ARAMBULA M.D. Performed By: #### G LULS #### Point of Care testing , GFR/1.73 sq M.predicted MDRD (S/P/Bld) [Vol rate/Area] mL/min/{1.73_m2} Normal [facility] Comment on above: Performed By: #### G LULS #### Point of Care testing , Glucose [Mass/Vol] 98 mg/dL Normal 70-100 [facility] Comment on above: Result Comment: [facility] Glucose Reference Range is dependent on time and content of last meal. Glucose of more than 200 mg/dL in a nonstressed, ambulatory subject supports the diagnosis of Diabetes Mellitus. ADA recommended reference range Performed By: #### G LULS #### Point of Care testing , Potassium [Moles/Vol] 4.4 mmol/L Normal 3.5-5.1 [facility] Comment on above: Performed By: #### G LULS #### Point of Care testing , Sodium [Moles/Vol] 132 mmol/L Low 136-145 [facility] Comment on above: Performed By: #### G LULS #### Point of Care testing , Urea nitrogen [Mass/Vol] 19 mg/dL Normal 7-25 [facility] Comment on above: Performed By: #### G LULS #### Point of Care testing , Basophils Auto (Bld) [#/Vol] Ordered By: Jen Acevedo on 11-29-2024 Basophils (Bld) [#/Vol] Automated basophil count 0.0-0.2 [facility] Basophils/100 WBC Auto (Bld) Ordered By: Jen Acevedo on 11-29-2024 Basophils/100 WBC (Bld) Automated basophil % . [facility] Calcium [Mass/volume] in Ser um or PlasmaOrdered By: Jen Acevedo on 11-29-2024 Calcium [Mass/Vol] Calcium [Mass/volume ] in Serum or Plasma Low 8.6-10.3 [facility] Carbon dioxide, total [Moles /volume] in Serum or PlasmaOrdered By: Jen Acevedo on 11-29-2024 CO2 [Moles/Vol] Carbon dioxide, tota l [Moles/volume] in Serum or Plasma 21.0-31.0 [facility] Chloride [Moles/volume] in [place] or PlasmaOrdered By: Jen Acevedo on 03-06-2025 Chloride [Moles/Vol] Chloride [Moles/vol ume] in Serum or Plasma 98-107 [facility] Complete Blood Count Auto Di ffon 11-29-2024 Basophils (Bld) [#/Vol] 0.0 10*3/uL Normal 0.0-0.2 [facility] Comment on above: Result Comment: PERF ORMED BY: [facility] [place] [address] PATHOLOGIST [employer] JESSI ARAMBULA M.D. Performed By: #### G LULS #### Point of Care testing , Basophils/100 WBC (Bld) 0.9 % Normal . [facility] Comment on above: Performed By: #### G LULS #### Point of Care testing , Eosinophils (Bld) [#/Vol] 0.3 10*3/uL Normal 0.0-0.45 [facility] Comment on above: Performed By: #### G LULS #### Point of Care testing , Eosinophils/100 WBC (Bld) 6.3 % Normal . [facility] Comment on above: Performed By: #### G LULS #### Point of Care testing , Erythrocyte distribution width (RBC) [Ratio] 17.1 % High 12.0-14.8 [facility] Comment on above: Performed By: #### G LULS #### Point of Care testing , Hematocrit (Bld) [Volume fraction] 30.2 % Low 38.8-50.0 [facility] Comment on above: Performed By: #### G LULS #### Point of Care testing , Hemoglobin (Bld) [Mass/Vol] 10.3 g/dL Low 13.0-17.0 [facility] Comment on above: Performed By: #### G LULS #### Point of Care testing , Lymphocytes (Bld) [#/Vol] 1.0 10*3/uL Normal 1.00-4.8 [facility] Comment on above: Performed By: #### G LULS #### Point of Care testing , Lymphocytes/100 WBC (Bld) 20.2 % Normal . [facility] Comment on above: Performed By: #### G LULS #### Point of Care testing , MCH (RBC) [Entitic mass] 32.0 pg Normal 27.5-35.2 [facility] Comment on above: Performed By: #### G LULS #### Point of Care testing , MCV (RBC) [Entitic vol] 93.4 fL Normal 83.5-101 [facility] Comment on above: Performed By: #### G LULS #### Point of Care testing , Mean Corpuscular HGB Conc 34.2 g/dL Normal 32.5-35.6 [facility] Comment on above: Performed By: #### G LULS #### Point of Care testing , Monocytes (Bld) [#/Vol] 0.6 10*3/uL Normal 0.0-0.8 [facility] Comment on above: Performed By: #### G LULS #### Point of Care testing , Monocytes/100 WBC (Bld) 13.7 % Normal . [facility] Comment on above: Performed By: #### G LULS #### Point of Care testing , Neutrophils (Bld) [#/Vol] 2.8 10*3/uL Normal 1.8-7.7 [facility] Comment on above: Performed By: #### G LULS #### Point of Care testing , Neutrophils/100 WBC (Bld) 58.9 % Normal . [facility] Comment on above: Performed By: #### G LULS #### Point of Care testing , NRBC% 0.2 /100{WBC} Normal 0-0.5 [facility] Comment on above: Performed By: #### G LULS #### Point of Care testing , Platelet mean volume (Bld) [Entitic vol] 8.4 fL Normal 6.6-10.1 [facility] Comment on above: Performed By: #### G LULS #### Point of Care testing , Platelets (Bld) [#/Vol] 262 10*3/uL Normal 150-450 [facility] Comment on above: Performed By: #### G LULS #### Point of Care testing , RBC (Bld) [#/Vol] 3.24 10*6/uL Low 3.90-5.[address] [facility] Comment on above: Performed By: #### G LULS #### Point of Care testing , WBC (Bld) [#/Vol] 4.7 10*3/uL Normal 4.1-10.5 [facility] Comment on above: Performed By: #### G LULS #### Point of Care testing , Creatinine [Mass/volume] in Serum or PlasmaOrdered By: Jen Acevedo on 11-29-2024 Creatinine [Mass/Vol] Creatinine [Mass/v olume] in Serum or Plasma Low 0.70-1.30 [facility] Eosinophils Auto (Bld) [#/Vo l]Ordered By: Jen Acevedo on 11-29-2024 Eosinophils (Bld) [#/Vol] Automated eosinophil count 0.0-0.45 [facility] Eosinophils/100 WBC Auto (Bl d)Ordered By: Jen Acevedo on 11-29-2024 Eosinophils/100 WBC (Bld) Automated eosinophil % . [facility] Erythrocyte distribution wid th Auto (RBC) [Ratio]Ordered By: Jen Acevedo on 11-29-2024 Erythrocyte distribution width (RBC) [Ratio] Erythrocyte distribution width [Ratio] by Automated count High 12.0-14.8 [facility] Glucose Poct Glucometerson 0 11-29-2024 Commemt1 Glu2: Cleaned Meter Normal [facility] Comment on above: Result Comment: PERF ORMED BY: [facility] [address] [place] [address] PATHOLOGIST [employer] JESSI ARAMBULA M.D. Performed By: #### G LULS #### Point of Care testing , Glucose [Mass/Vol] 120 mg/dL Normal [facility] Comment on above: Result Comment: [place] Glucose Reference Range is dependent on time and content of last meal. Glucose of more than 200 mg/dL in a nonstressed, ambulatory subject supports the diagnosis of Diabetes Mellitus. Performed By: #### G LULS #### Point of Care testing , Commemt1 Glu2: Cleaned Meter Normal [facility] Comment on above: Result Comment: PERF ORMED BY: [address] [place] [address] PATHOLOGIST [employer] JESSI ARAMBULA M.D. Performed By: #### G LULS #### Point of Care testing , Glucose [Mass/Vol] 87 mg/dL Normal [facility] Comment on above: Result Comment: [place] [facility] Glucose Reference Range is dependent on time and content of last meal. Glucose of more than 200 mg/dL in a nonstressed, ambulatory subject supports the diagnosis of Diabetes Mellitus. Performed By: #### G LULS #### Point of Care testing , Glucose [Mass/Vol] 102 mg/dL Normal [facility] Comment on above: Result Comment: [place] [facility] Glucose Reference Range is dependent on time and content of last meal. Glucose of more than 200 mg/dL in a nonstressed, ambulatory subject supports the diagnosis of Diabetes Mellitus. PERFORMED BY: [address] [address] PATHOLOG[employer] J[employer]I ARAMBULA M.D. Performed By: #### G LULS #### Point of Care testing , Glucose [Mass/volume] in Ser um or PlasmaOrdered By: Jen Acevedo on 11-29-2024 Glucose [Mass/Vol] Glucose [Mass/volume ] in Serum or Plasma 70-100 [facility] Comment on above: ADA recommended refe rence rangeRandom Glucose Reference Range is dependent on time and content of last meal. Glucose of more than 200 mg/dL in a nonstressed, ambulatory subject supports the diagnosis of Diabetes Mellitus. Hematocrit Auto (Bld) [Volum e fraction]Ordered By: Jen Acevedo on 11-29-2024 Hematocrit (Bld) [Volume fraction] Hematocrit [Volume Fraction] of Blood by Automated count Low 38.8-50.0 [facility] Hemoglobin [Mass/volume] in BloodOrdered By: Jen Acevedo on 11-29-2024 Hemoglobin (Bld) [Mass/Vol] Hemoglobin [Mass/volume] in Blood Low 13.0-17.0 [facility] Leukocytes [#/volume] correc bryant for nucleated erythrocytes in Blood by Automated counOrdered By: Jen Acevedo on 11-29-2024 WBC corrected for nucl RBC Auto (Bld) [#/Vol] Leukocytes [#/volume] corrected for nucleated erythrocytes in Blood by Automated coun 4.1-10.5 [facility] Lymphocytes Auto (Bld) [#/Vo l]Ordered By: Jen Acevedo on 11-29-2024 Lymphocytes (Bld) [#/Vol] Lymphocytes [#/volume] in Blood by Automated count 1.00-4.8 [facility] Lymphocytes/100 WBC Auto (Bl d)Ordered By: Jen Acevedo on 11-29-2024 Lymphocytes/100 WBC (Bld) Lymphocytes/100 leukocytes in Blood by Automated count . [facility] MCH Auto (RBC) [Entitic mass ]Ordered By: Jen Acevedo on 11-29-2024 MCH (RBC) [Entitic mass] MCH [Entitic mass] by Automated count 27.5-35.2 [facility] MCHC Auto (RBC) [Mass/Vol]Or dered By: Jen Acevedo on 11-29-2024 MCHC (RBC) [Mass/Vol] MCHC [Mass/volume] by Automated count 32.5-35.6 [facility] MCV Auto (RBC) [Entitic vol] Ordered By: Jen Acevedo on 11-29-2024 MCV (RBC) [Entitic vol] MCV [Entitic volume] by Automated count 83.5-101 [facility] Monocytes Auto (Bld) [#/Vol] Ordered By: Jen Acevedo on 11-29-2024 Monocytes (Bld) [#/Vol] Automated blood monocyte count 0.0-0.8 [facility] Monocytes/100 WBC Auto (Bld) Ordered By: Jen Acevedo on 11-29-2024 Monocytes/100 WBC (Bld) Automated monocyte % . [facility] Neutrophils Auto (Bld) [#/Vo l]Ordered By: Jen Acevedo on 11-29-2024 Neutrophils (Bld) [#/Vol] Neutrophils [#/volume] in Blood by Automated count 1.8-7.7 [facility] Neutrophils/100 WBC Auto (Bl d)Ordered By: Jen Acevedo on 11-29-2024 Neutrophils/100 WBC (Bld) Automated neutrophil % . [facility] No Panel InformationOrdered By: Jen Acevedo on 11-29-2024 Estimated GFR (CKD-EPI) > 60.0 mL/Min [facility] Creatinine Clearance (Chem 63.54 [facility] Nucleated erythrocytes [Pres ence] in Blood by Automated countOrdered By: Jen Acevedo on 11-29-2024 Nucleated RBC Auto Ql (Bld) Nucleated erythrocytes [Presence] in Blood by Automated count 0-0.5 [facility] Platelet mean volume Auto (B ld) [Entitic vol]Ordered By: Jen Acevedo on 11-29-2024 Platelet mean volume (Bld) [Entitic vol] Platelet mean volume [Entitic volume] in Blood by Automated count 6.6-10.1 [facility] Platelets Auto (Bld) [#/Vol] Ordered By: Jen Acevedo on 11-29-2024 Platelets (Bld) [#/Vol] Platelets [#/volume] in Blood by Automated count 150-450 [facility] Potassium [Moles/volume] in Serum or PlasmaOrdered By: Jen Acevedo on 11-29-2024 Potassium [Moles/Vol] Potassium [Moles/v olume] in Serum or Plasma 3.5-5.1 [facility] RBC Auto (Bld) [#/Vol]Ordere d By: Jen Acevedo on 11-29-2024 RBC (Bld) [#/Vol] Erythrocytes [#/volu me] in Blood by Automated count Low 3.90-5.60 [facility] Serum or plasma anion gap de terminationOrdered By: Jen Acevedo on 11-29-2024 Anion gap [Moles/Vol] Serum or plasma an ion gap determination 6.0-15.0 [facility] Sodium [Moles/volume] in Ser um or PlasmaOrdered By: Jen Acevedo on 11-29-2024 Sodium [Moles/Vol] Sodium [Moles/volume ] in Serum or Plasma Low 136-145 [facility] Urea nitrogen [Mass/volume] in Serum or PlasmaOrdered By: Jen Acevedo on 11-29-2024 Urea nitrogen [Mass/Vol] Urea nitrogen [Mass/volume] in Serum or Plasma 7-25 [facility] WBC Auto (Bld) [#/Vol]Ordere d By: Jen Acevedo on 11-29-2024 WBC (Bld) [#/Vol] Leukocytes [#/volume ] in Blood by Automated count 4.1-10.5 [facility] Glucose Poct Glucometerson 0 11-28-2024 Glucose [Mass/Vol] 103 mg/dL Normal [facility] Comment on above: Result Comment: [place] om Glucose Reference Range is dependent on time and content of last meal. Glucose of more than 200 mg/dL in a nonstressed, ambulatory subject supports the diagnosis of Diabetes Mellitus. PERFORMED BY: [place] [address] PATHOLOGIST [employer] J[employer]I ARAMBULA M.D. Performed By: #### B MP, CBC #### [address] Commemt1 Glu2: Cleaned Meter Normal [facility] Comment on above: Result Comment: PERF ORMED BY: [place] [address] PATHOLOGIST [employer] J[employer]I ARAMBULA M.D. Performed By: #### B MP, CBC #### [address] Glucose [Mass/Vol] 111 mg/dL Normal [facility] Comment on above: Result Comment: [place] om Glucose Reference Range is dependent on time and content of last meal. Glucose of more than 200 mg/dL in a nonstressed, ambulatory subject supports the diagnosis of Diabetes Mellitus. Performed By: #### B MP, CBC #### [place] [address] [place] Glucose [Mass/Vol] 103 mg/dL Normal [facility] Comment on above: Result Comment: [place] om Glucose Reference Range is dependent on time and content of last meal. Glucose of more than 200 mg/dL in a nonstressed, ambulatory subject supports the diagnosis of Diabetes Mellitus. PERFORMED BY: [place] [address] PATHOLOGIST [employer] J[employer]I ARAMBULA M.D. Performed By: #### G LULS #### Point of Care testing , Commemt1 Glu2: Cleaned Meter Normal [facility] Comment on above: Result Comment: PERF ORMED BY: [address] [place] [address] PATHOLOGIST [employer] J[employer]I ARAMBULA M.D. Performed By: #### G LULS #### Point of Care testing , Glucose [Mass/Vol] 109 mg/dL Normal [facility] Comment on above: Result Comment: [place] [facility] Glucose Reference Range is dependent on time and content of last meal. Glucose of more than 200 mg/dL in a nonstressed, ambulatory subject supports the diagnosis of Diabetes Mellitus. Performed By: #### G LULS #### Point of Care testing , Glucose Poct Glucometerson 0 11-27-2024 Commemt1 Glu2: Cleaned Meter Normal [facility] Comment on above: Result Comment: PERF ORMED BY: [place] [address] PATHOLOGIST [employer] J[employer]I ARAMBULA M.D. Performed By: #### B MP, CBC #### [place] [address] [place] Glucose [Mass/Vol] 115 mg/dL Normal [facility] Comment on above: Result Comment: [place] om Glucose Reference Range is dependent on time and content of last meal. Glucose of more than 200 mg/dL in a nonstressed, ambulatory subject supports the diagnosis of Diabetes Mellitus. Performed By: #### B MP, CBC #### [place] [address] [place] Glucose [Mass/Vol] 125 mg/dL Normal [facility] Comment on above: Result Comment: [place] om Glucose Reference Range is dependent on time and content of last meal. Glucose of more than 200 mg/dL in a nonstressed, ambulatory subject supports the diagnosis of Diabetes Mellitus. PERFORMED BY: [place] [address] PATHOLOGIST TEACHER OF [employer] JESSI ARAMBULA M.D. Performed By: #### G LULS #### Point of Care testing , Commemt1 Glu2: Cleaned Meter Normal [facility] Comment on above: Result Comment: PERF ORMED BY: [place] [address] PATHOLOGIST TEACHER OF [employer] JESSI ARAMBULA M.D. Performed By: #### G LULS #### Point of Care testing , Glucose [Mass/Vol] 95 mg/dL Normal [facility] Comment on above: Result Comment: [place] Glucose Reference Range is dependent on time and content of last meal. Glucose of more than 200 mg/dL in a nonstressed, ambulatory subject supports the diagnosis of Diabetes Mellitus. Performed By: #### G LULS #### Point of Care testing , Commemt1 Glu2: Cleaned Meter Normal [facility] Comment on above: Result Comment: PERF ORMED BY: [place] [address] PATHOLOGIST TEACHER OF [employer] JESSI ARAMBULA M.D. Performed By: #### B MP, CBC #### [address] Glucose [Mass/Vol] 104 mg/dL Normal [facility] Comment on above: Result Comment: [place] Glucose Reference Range is dependent on time and content of last meal. Glucose of more than 200 mg/dL in a nonstressed, ambulatory subject supports the diagnosis of Diabetes Mellitus. Performed By: #### B MP, CBC #### [address] Glucose Poct Glucometerson 0 11-26-2024 Commemt1 Glu2: Cleaned Meter Normal [facility] Comment on above: Result Comment: PERF ORMED BY: [address] [place] [address] PATHOLOGIST TEACHER OF [employer] JESSI ARAMBULA M.D. Performed By: #### G LULS #### Point of Care testing , Glucose [Mass/Vol] 120 mg/dL Normal [facility] Comment on above: Result Comment: [place] Glucose Reference Range is dependent on time and content of last meal. Glucose of more than 200 mg/dL in a nonstressed, ambulatory subject supports the diagnosis of Diabetes Mellitus. Performed By: #### G LULS #### Point of Care testing , Glucose [Mass/Vol] 117 mg/dL Normal [facility] Comment on above: Result Comment: [place] Glucose Reference Range is dependent on time and content of last meal. Glucose of more than 200 mg/dL in a nonstressed, ambulatory subject supports the diagnosis of Diabetes Mellitus. PERFORMED BY: [address] [place] [address] PATHOLOGIST TEACHER OF [employer] JESSI ARAMBULA M.D. Performed By: #### G LULS #### Point of Care testing , Glucose [Mass/Vol] 109 mg/dL Normal [facility] Comment on above: Result Comment: [place] Glucose Reference Range is dependent on time and content of last meal. Glucose of more than 200 mg/dL in a nonstressed, ambulatory subject supports the diagnosis of Diabetes Mellitus. PERFORMED BY: [address] [place] [address] PATHOLOGIST TEACHER OF [employer] JESSI ARAMBULA M.D. Performed By: #### G LULS #### Point of Care testing , Glucose [Mass/Vol] 105 mg/dL Normal [facility] Comment on above: Result Comment: [place] Glucose Reference Range is dependent on time and content of last meal. Glucose of more than 200 mg/dL in a nonstressed, ambulatory subject supports the diagnosis of Diabetes Mellitus. PERFORMED BY: [address] [place] [address] PATHOLOGIST TEACHER OF [employer] JESSI ARAMBULA M.D. Performed By: #### B MP, CBC #### [facility] [address] [place] [address] Glucose Poct Glucometerson 0 11-25-2024 Commemt1 Glu2: Cleaned Meter Normal [facility] Comment on above: Result Comment: PERF ORMED BY: [place] [address] PATHOLOGIST TEACHER OF [employer] JESSI ARAMBULA M.D. Performed By: #### G LULS #### Point of Care testing , Glucose [Mass/Vol] 108 mg/dL Normal [facility] Comment on above: Result Comment: [place] Glucose Reference Range is dependent on time and content of last meal. Glucose of more than 200 mg/dL in a nonstressed, ambulatory subject supports the diagnosis of Diabetes Mellitus. Performed By: #### G LULS #### Point of Care testing , Glucose [Mass/Vol] 132 mg/dL Normal [facility] Comment on above: Result Comment: [place] Glucose Reference Range is dependent on time and content of last meal. Glucose of more than 200 mg/dL in a nonstressed, ambulatory subject supports the diagnosis of Diabetes Mellitus. PERFORMED BY: [place] [address] PATHOLOGIST TEACHER OF [employer] JESSI ARAMBULA M.D. Performed By: #### G LULS #### Point of Care testing , Glucose [Mass/Vol] 90 mg/dL Normal [facility] Comment on above: Result Comment: [place] Glucose Reference Range is dependent on time and content of last meal. Glucose of more than 200 mg/dL in a nonstressed, ambulatory subject supports the diagnosis of Diabetes Mellitus. PERFORMED BY: [place] [address] PATHOLOGIST TEACHER OF [employer] JESSI ARAMBULA M.D. Performed By: #### B MP, CBC #### [address] Glucose [Mass/Vol] 107 mg/dL Normal [facility] Comment on above: Result Comment: [place] Glucose Reference Range is dependent on time and content of last meal. Glucose of more than 200 mg/dL in a nonstressed, ambulatory subject supports the diagnosis of Diabetes Mellitus. PERFORMED BY: [place] [address] PATHOLOGIST TEACHER OF [employer] JESSI ARAMBULA M.D. Performed By: #### G LULS #### Point of Care testing , Glucose [Mass/Vol] 101 mg/dL Normal [facility] Comment on above: Result Comment: [place] Glucose Reference Range is dependent on time and content of last meal. Glucose of more than 200 mg/dL in a nonstressed, ambulatory subject supports the diagnosis of Diabetes Mellitus. PERFORMED BY: [place] [address] PATHOLOGIST TEACHER OF [employer] JESSI ARAMBULA M.D. Performed By: #### B MP, CBC #### [address] Glucose Poct Glucometerson 0 11-24-2024 Glucose [Mass/Vol] 138 mg/dL Normal [facility] Comment on above: Result Comment: [place] Glucose Reference Range is dependent on time and content of last meal. Glucose of more than 200 mg/dL in a nonstressed, ambulatory subject supports the diagnosis of Diabetes Mellitus. PERFORMED BY: [place] [id number] PATHOLOGIST TEACHER OF [employer] JESSI ARAMBULA M.D. Performed By: #### G LULS #### Point of Care testing , Glucose [Mass/Vol] 107 mg/dL Normal [facility] Comment on above: Result Comment: [place] Glucose Reference Range is dependent on time and content of last meal. Glucose of more than 200 mg/dL in a nonstressed, ambulatory subject supports the diagnosis of Diabetes Mellitus. PERFORMED BY: [place] [id number] PATHOLOGIST TEACHER OF [employer] JESSI ARAMBULA M.D. Performed By: #### G LULS #### Point of Care testing , Glucose [Mass/Vol] 122 mg/dL Normal [facility] Comment on above: Result Comment: [place] Glucose Reference Range is dependent on time and content of last meal. Glucose of more than 200 mg/dL in a nonstressed, ambulatory subject supports the diagnosis of Diabetes Mellitus. PERFORMED BY: [place] [id number] PATHOLOGIST TEACHER OF [employer] JESSI ARAMBULA M.D. Performed By: #### G LULS #### Point of Care testing , Glucose [Mass/Vol] 109 mg/dL Normal [facility] Comment on above: Result Comment: [place] Glucose Reference Range is dependent on time and content of last meal. Glucose of more than 200 mg/dL in a nonstressed, ambulatory subject supports the diagnosis of Diabetes Mellitus. PERFORMED BY: [address] [address] PATHOLOGIST TEACHER OF [employer] JESSI ARAMBULA M.D. Performed By: #### G LULS #### Point of Care testing , Glucose Poct Glucometerson 0 11-23-2024 Glucose [Mass/Vol] 123 mg/dL Normal [facility] Comment on above: Result Comment: [place] Glucose Reference Range is dependent on time and content of last meal. Glucose of more than 200 mg/dL in a nonstressed, ambulatory subject supports the diagnosis of Diabetes Mellitus. PERFORMED BY: [address] [address] PATHOLOGIST TEACHER OF [employer] JESSI ARAMBULA M.D. Performed By: #### G LULS #### Point of Care testing , Glucose [Mass/Vol] 114 mg/dL Normal [facility] Comment on above: Result Comment: [place] Glucose Reference Range is dependent on time and content of last meal. Glucose of more than 200 mg/dL in a nonstressed, ambulatory subject supports the diagnosis of Diabetes Mellitus. PERFORMED BY: [address] [place] [address] PATHOLOGIST TEACHER OF [employer] JESSI ARAMBULA M.D. Performed By: #### G LULS #### Point of Care testing , Commemt1 Glu2: Cleaned Meter Normal [facility] Comment on above: Result Comment: PERF ORMED BY: [facility] [address] [facility] [address] PATHOLOGIST TEACHER OF [employer] JESSI ARAMBULA M.D. Performed By: #### G LULS #### Point of Care testing , Glucose [Mass/Vol] 120 mg/dL Normal [facility] Comment on above: Result Comment: [place] Glucose Reference Range is dependent on time and content of last meal. Glucose of more than 200 mg/dL in a nonstressed, ambulatory subject supports the diagnosis of Diabetes Mellitus. Performed By: #### G LULS #### Point of Care testing , Glucose Poct Glucometerson 0 11-22-2024 Commemt1 Glu2: Cleaned Meter Normal [facility] Comment on above: Result Comment: PERF ORMED BY: [facility] [address] [facility] [place] [address] PATHOLOGIST TEACHER OF [employer] JESSI ARAMBULA M.D. Performed By: #### G LULS #### Point of Care testing , Performed By: #### G LULS ####Point of Care testing, Glucose [Mass/Vol] 112 mg/dL Normal [facility] Comment on above: Result Comment: [place] Glucose Reference Range is dependent on time and content of last meal. Glucose of more than 200 mg/dL in a nonstressed, ambulatory subject supports the diagnosis of Diabetes Mellitus. Performed By: #### G LULS #### Point of Care testing , Glucose [Mass/Vol] 121 mg/dL Normal [facility] Comment on above: Result Comment: [place] Glucose Reference Range is dependent on time and content of last meal. Glucose of more than 200 mg/dL in a nonstressed, ambulatory subject supports the diagnosis of Diabetes Mellitus. Performed By: #### G LULS ####Point of Care testing, Commemt1 Glu2: Cleaned Meter Normal [facility] Comment on above: Result Comment: PERF ORMED BY: [place] [address] PATHOLOGIST TEACHER OF [employer] JESSI ARAMBULA M.D. Performed By: #### B MP, CBC #### [address] Glucose [Mass/Vol] 109 mg/dL Normal [facility] Comment on above: Result Comment: [place] Glucose Reference Range is dependent on time and content of last meal. Glucose of more than 200 mg/dL in a nonstressed, ambulatory subject supports the diagnosis of Diabetes Mellitus. Performed By: #### B MP, CBC #### [address] Commemt1 Glu2: Cleaned Meter Normal [facility] Comment on above: Result Comment: PERF ORMED BY: [place] [address] PATHOLOGIST TEACHER OF [employer] JESSI ARAMBULA M.D. Performed By: #### B MP, CBC #### [address] Glucose [Mass/Vol] 113 mg/dL Normal [facility] Comment on above: Result Comment: [place] Glucose Reference Range is dependent on time and content of last meal. Glucose of more than 200 mg/dL in a nonstressed, ambulatory subject supports the diagnosis of Diabetes Mellitus. Performed By: #### B MP, CBC #### [address] Commemt1 Glu2: Cleaned Meter Normal [facility] Comment on above: Result Comment: PERF ORMED BY: [place] [address] PATHOLOGIST TEACHER OF [employer] JESSI ARAMBULA M.D. Performed By: #### G LULS #### Point of Care testing , Glucose [Mass/Vol] 130 mg/dL Normal [facility] Comment on above: Result Comment: [place] Glucose Reference Range is dependent on time and content of last meal. Glucose of more than 200 mg/dL in a nonstressed, ambulatory subject supports the diagnosis of Diabetes Mellitus. Performed By: #### G LULS #### Point of Care testing , Glucose Poct Glucometerson 0 11-21-2024 Glucose [Mass/Vol] 122 mg/dL Normal [facility] Comment on above: Result Comment: [place] Glucose Reference Range is dependent on time and content of last meal. Glucose of more than 200 mg/dL in a nonstressed, ambulatory subject supports the diagnosis of Diabetes Mellitus. PERFORMED BY: [place] [address] PATHOLOGIST TEACHER OF [employer] JESSI ARAMBULA M.D. Performed By: #### G LULS ####Point of Care testing, Commemt1 Glu2: Cleaned Meter Normal [facility] Comment on above: Result Comment: PERF ORMED BY: [address] [place] [id number] PATHOLOGIST TEACHER OF [employer] JESSI ARAMBULA M.D. Performed By: #### G LULS #### Point of Care testing , Glucose [Mass/Vol] 106 mg/dL Normal [facility] Comment on above: Result Comment: [place] Glucose Reference Range is dependent on time and content of last meal. Glucose of more than 200 mg/dL in a nonstressed, ambulatory subject supports the diagnosis of Diabetes Mellitus. Performed By: #### G LULS #### Point of Care testing , Commemt1 Glu2: Cleaned Meter Normal [facility] Comment on above: Result Comment: PERF ORMED BY: [place] [id number] PATHOLOGIST TEACHER OF [employer] JESSI ARAMBULA M.D. Performed By: #### G LULS ####Point of Care testing, Glucose [Mass/Vol] 100 mg/dL Normal [facility] Comment on above: Result Comment: [place] Glucose Reference Range is dependent on time and content of last meal. Glucose of more than 200 mg/dL in a nonstressed, ambulatory subject supports the diagnosis of Diabetes Mellitus. Performed By: #### G LULS ####Point of Care testing, Commemt1 Glu2: Cleaned Meter Normal [facility] Comment on above: Result Comment: PERF ORMED BY: [place] [address] PATHOLOGIST TEACHER OF [employer] JESSI ARAMBULA M.D. Performed By: #### G LULS ####Point of Care testing, Glucose [Mass/Vol] 115 mg/dL Normal [facility] Comment on above: Result Comment: [place] Glucose Reference Range is dependent on time and content of last meal. Glucose of more than 200 mg/dL in a nonstressed, ambulatory subject supports the diagnosis of Diabetes Mellitus. Performed By: #### G LULS ####Point of Care testing, Glucose Poct Glucometerson 0 11-20-2024 Commemt1 Glu2: Cleaned Meter Normal [facility] Comment on above: Result Comment: PERF ORMED BY: [place] [address] PATHOLOGIST TEACHER OF [employer] JESSI ARAMBULA M.D. Performed By: #### B MP, CBC #### [address] Glucose [Mass/Vol] 113 mg/dL Normal [facility] Comment on above: Result Comment: [place] Glucose Reference Range is dependent on time and content of last meal. Glucose of more than 200 mg/dL in a nonstressed, ambulatory subject supports the diagnosis of Diabetes Mellitus. Performed By: #### B MP, CBC #### [address] Commemt1 Glu2: Cleaned Meter Normal [facility] Comment on above: Result Comment: PERF ORMED BY: [place] [address] PATHOLOGIST TEACHER OF [employer] JESSI ARAMBULA M.D. Performed By: #### B MP, CBC #### [place] [id number] [place] Glucose [Mass/Vol] 124 mg/dL Normal [facility] Comment on above: Result Comment: [place] Glucose Reference Range is dependent on time and content of last meal. Glucose of more than 200 mg/dL in a nonstressed, ambulatory subject supports the diagnosis of Diabetes Mellitus. Performed By: #### B MP, CBC #### [facility] [address] Glucose [Mass/Vol] 134 mg/dL Normal [facility] Comment on above: Result Comment: [place] Glucose Reference Range is dependent on time and content of last meal. Glucose of more than 200 mg/dL in a nonstressed, ambulatory subject supports the diagnosis of Diabetes Mellitus. PERFORMED BY: [place] [address] PATHOLOGIST TEACHER OF [employer] JESSI ARAMBULA M.D. Performed By: #### B MP, CBC #### [address] Alanine aminotransferase [En zymatic activity/volume] in Serum or PlasmaOrdered By: Jorge Clifton on 11-19-2024 ALT [Catalytic activity/Vol] Alanine aminotransferase [Enzymatic activity/volume] in Serum or Plasma [facility] Albumin [Mass/volume] in Ser um or Plasma by Bromocresol green (BCG) dye binding methoOrdered By: Jorge Clifton on 11-19-2024 Albumin BCG dye [Mass/Vol] Albumin [Mass/volume] in Serum or Plasma by Bromocresol green (BCG) dye binding metho Low 3.5-5.7 [facility] Alkaline phosphatase [Enzyma tic activity/volume] in Serum or PlasmaOrdered By: Jorge Clifton on 11-19-2024 ALP [Catalytic activity/Vol] Alkaline phosphatase [Enzymatic activity/volume] in Serum or Plasma 34-104 [facility] Aspartate aminotransferase [ Enzymatic activity/volume] in Serum or PlasmaOrdered By: Jorge Clifton on 11-19-2024 AST [Catalytic activity/Vol] Aspartate aminotransferase [Enzymatic activity/volume] in Serum or Plasma 13-39 [facility] Bilirubin.total [Mass/volume ] in Serum or PlasmaOrdered By: Jorge Clifton on 11-19-2024 Bilirubin [Mass/Vol] Bilirubin.total [Mass/volume] in Serum or Plasma 0.3-1.0 [facility] Complete Blood Count Auto Di ffon 11-19-2024 Basophils (Bld) [#/Vol] 0.0 10*3/uL Normal 0.0-0.2 [facility] Comment on above: Result Comment: PERF ORMED BY: [facility] [address] [place] [address] PATHOLOGIST TEACHER OF [employer] JESSI ARAMBULA M.D. Performed By: #### C MP, CBC, PAB ####[address] Basophils/100 WBC (Bld) 0.5 % Normal . [facility] Comment on above: Performed By: #### C MP, CBC, PAB ####[address] Eosinophils (Bld) [#/Vol] 0.3 10*3/uL Normal 0.0-0.45 [facility] Comment on above: Performed By: #### C MP, CBC, PAB ####[address] Eosinophils/100 WBC (Bld) 4.4 % Normal . [facility] Comment on above: Performed By: #### C MP, CBC, PAB ####[address] Erythrocyte distribution width (RBC) [Ratio] 16.4 % High 12.0-14.8 [facility] Comment on above: Performed By: #### C MP, CBC, PAB ####[address] Hematocrit (Bld) [Volume fraction] 29.6 % Low 38.8-50.0 [facility] Comment on above: Performed By: #### C MP, CBC, PAB ####[address] Hemoglobin (Bld) [Mass/Vol] 10.0 g/dL Low 13.0-17.0 [facility] Comment on above: Performed By: #### C MP, CBC, PAB ####[address] Lymphocytes (Bld) [#/Vol] 0.9 10*3/uL Low 1.00-4.8 [facility] Comment on above: Performed By: #### C MP, CBC, PAB ####[address] Lymphocytes/100 WBC (Bld) 16.0 % Normal . [facility] Comment on above: Performed By: #### C MP, CBC, PAB ####[address] MCH (RBC) [Entitic mass] 31.2 pg Normal 27.5-35.2 [facility] Comment on above: Performed By: #### C MP, CBC, PAB ####[address] MCV (RBC) [Entitic vol] 92.0 fL Normal 83.5-101 [facility] Comment on above: Performed By: #### C MP, CBC, PAB ####[address] Mean Corpuscular HGB Conc 33.9 g/dL Normal 32.5-35.6 [facility] Comment on above: Performed By: #### C MP, CBC, PAB ####[address] Monocytes (Bld) [#/Vol] 0.8 10*3/uL Normal 0.0-0.8 [facility] Comment on above: Performed By: #### C MP, CBC, PAB ####[address] Monocytes/100 WBC (Bld) 13.3 % Normal . [facility] Comment on above: Performed By: #### C MP, CBC, PAB ####[place] [id number] [address] Neutrophils (Bld) [#/Vol] 3.8 10*3/uL Normal 1.8-7.7 [facility] Comment on above: Performed By: #### C MP, CBC, PAB ####[place] [id number] [facility] Neutrophils/100 WBC (Bld) 65.8 % Normal . [facility] Comment on above: Performed By: #### C MP, CBC, PAB ####[place] [id number] [facility] NRBC% 0.1 /100{WBC} Normal 0-0.5 [facility] Comment on above: Performed By: #### C MP, CBC, PAB ####[address] Platelet mean volume (Bld) [Entitic vol] 8.1 fL Normal 6.6-10.1 [facility] Comment on above: Performed By: #### C MP, CBC, PAB ####[address] [address] [facility] Platelets (Bld) [#/Vol] 158 10*3/uL Normal 150-450 [facility] Comment on above: Performed By: #### C MP, CBC, PAB ####[place] [id number] [facility] RBC (Bld) [#/Vol] 3.22 10*6/uL Low 3.90-5.[address] [facility] Comment on above: Performed By: #### C MP, CBC, PAB ####[address] [address] [facility] WBC (Bld) [#/Vol] 5.8 10*3/uL Normal 4.1-10.5 [facility] Comment on above: Performed By: #### C MP, CBC, PAB ####[address] [address] [facility] Comprehensive Metabolic Pane narayan 02-24-2025 Albumin [Mass/Vol] 2.6 g/dL Low 3.5-5.7 [facility] Comment on above: Performed By: #### C MP, CBC, PAB ####[address] Albumin/Globulin [Mass ratio] 0.9 {ratio} Normal [facility] Comment on above: Performed By: #### C MP, CBC, PAB ####[address] ALP [Catalytic activity/Vol] 62 U/L Normal 34-104 [facility] Comment on above: Performed By: #### C MP, CBC, PAB ####[address] ALT [Catalytic activity/Vol] 17 U/L Normal 7-52 [facility] Comment on above: Performed By: #### C MP, CBC, PAB ####[address] Anion gap [Moles/Vol] 8.4 mmol/L Normal 6.0-15.0 [facility] Comment on above: Performed By: #### C MP, CBC, PAB ####[address] AST [Catalytic activity/Vol] 15 U/L Normal 13-39 [facility] Comment on above: Performed By: #### C MP, CBC, PAB ####[address] Bilirubin [Mass/Vol] 0.9 mg/dL Normal 0.3-1.0 [facility] Comment on above: Performed By: #### C MP, CBC, PAB ####[address] Calcium [Mass/Vol] 8.1 mg/dL Low 8.6-10.3 [facility] Comment on above: Performed By: #### C MP, CBC, PAB ####[address] Chloride [Moles/Vol] 102 mmol/L Normal 98-107 [facility] Comment on above: Performed By: #### C MP, CBC, PAB ####[address] CO2 [Moles/Vol] 29.7 mmol/L Normal 21.0-31.0 [facility] Comment on above: Performed By: #### C MP, CBC, PAB ####[address] Creatinine [Mass/Vol] 0.53 mg/dL Low 0.70-1.30 [facility] Comment on above: Performed By: #### C MP, CBC, PAB ####[address] Creatinine Clr Calc Pharmacy 78.14 Normal [facility] Group Comment on above: Performed By: #### C MP, CBC, PAB ####[address] GFR/1.73 sq M.predicted MDRD (S/P/Bld) [Vol rate/Area] mL/min/{1.73_m2} Normal [facility] Comment on above: Performed By: #### C MP, CBC, PAB ####[address] Globulin (S) [Mass/Vol] 3.0 g/dL Normal [facility] Comment on above: Performed By: #### C MP, CBC, PAB ####[address] Glucose [Mass/Vol] 118 mg/dL High 70-100 [facility] Comment on above: Result Comment: [place] Glucose Reference Range is dependent on time and content of last meal. Glucose of more than 200 mg/dL in a nonstressed, ambulatory subject supports the diagnosis of Diabetes Mellitus. ADA recommended reference range Performed By: #### C MP, CBC, PAB ####[address] Potassium [Moles/Vol] 4.1 mmol/L Normal 3.5-5.1 [facility] Comment on above: Performed By: #### C MP, CBC, PAB ####[facility] Protein [Mass/Vol] 5.6 g/dL Low 6.4-8.9 [facility] Comment on above: Performed By: #### C MP, CBC, PAB ####[facility] Sodium [Moles/Vol] 136 mmol/L Normal 136-145 [facility] Comment on above: Performed By: #### C MP, CBC, PAB ####[place] [id number] [address] Urea nitrogen [Mass/Vol] 16 mg/dL Normal 7-25 [facility] Comment on above: Performed By: #### C MP, CBC, PAB ####[place] [id number] [place] [id number] [facility] Globulin Calc (S) [Mass/Vol] Ordered By: Jorge Clifton on 11-19-2024 Globulin (S) [Mass/Vol] Serum globulin measurement by calculation (mass/volume) [facility] Glucose Poct Glucometerson 0 11-19-2024 Glucose [Mass/Vol] 128 mg/dL Normal [facility] Comment on above: Result Comment: [facility] Glucose Reference Range is dependent on time and content of last meal. Glucose of more than 200 mg/dL in a nonstressed, ambulatory subject supports the diagnosis of Diabetes Mellitus. PERFORMED BY: [facility] [address] [place] [id number] [employer] JESSI ARAMBULA M.D. Performed By: #### G LULS #### Point of Care testing , Commemt1 Glu2: Cleaned Meter Normal [facility] Comment on above: Result Comment: PERF ORMED BY: [facility] [address] [place] [id number] PATHOLOGIST [employer] J[employer]I ARAMBULA M.D. Performed By: #### G LULS #### Point of Care testing , Glucose [Mass/Vol] 102 mg/dL Normal [facility] Comment on above: Result Comment: [place] om Glucose Reference Range is dependent on time and content of last meal. Glucose of more than 200 mg/dL in a nonstressed, ambulatory subject supports the diagnosis of Diabetes Mellitus. Performed By: #### G LULS #### Point of Care testing , Commemt1 Glu2: Cleaned Meter Normal [facility] Comment on above: Result Comment: PERF ORMED BY: [place] [address] PATHOLOGIST [employer] J[employer]I ARAMBULA M.D. Performed By: #### G LULS #### Point of Care testing , Glucose [Mass/Vol] 131 mg/dL Normal [facility] Comment on above: Result Comment: [place] om Glucose Reference Range is dependent on time and content of last meal. Glucose of more than 200 mg/dL in a nonstressed, ambulatory subject supports the diagnosis of Diabetes Mellitus. Performed By: #### G LULS #### Point of Care testing , Glucose [Mass/Vol] 132 mg/dL Normal [facility] Comment on above: Result Comment: [place] om Glucose Reference Range is dependent on time and content of last meal. Glucose of more than 200 mg/dL in a nonstressed, ambulatory subject supports the diagnosis of Diabetes Mellitus. PERFORMED BY: [place] [address] PATHOLOGIST [employer] JESSI ARAMBULA M.D. Performed By: #### G LULS ####Point of Care testing, Prealbuminon 11-19-2024 Prealbumin [Mass/Vol] 8.9 mg/dL Low 17.0-34.0 [facility] Comment on above: Result Comment: PERF ORMED BY: [place] [address] PATHOLOGIST [employer] JESSI ARAMBULA M.D. Performed By: #### C MP, CBC, PAB ####[facility] Abr[address] [place] [phone] [facility] Prealbumin [Mass/volume] in Serum or PlasmaOrdered By: Jorge Clifton on 11-19-2024 Prealbumin [Mass/Vol] Prealbumin [Mass/v olume] in Serum or Plasma Low 17.0-34.0 [facility] Protein [Mass/volume] in Ser um or PlasmaOrdered By: Jorge Clifton on 11-19-2024 Protein [Mass/Vol] Protein [Mass/volume ] in Serum or Plasma Low 6.4-8.9 [facility] Serum or plasma albumin/glob ulin mass ratioOrdered By: Jorge Clifton on 11-19-2024 Albumin/Globulin [Mass ratio] Serum or plasma albumin/globulin mass ratio [facility] Glucose Glucometer (BldC) [M ass/Vol]Ordered By: Rahul Barboza on 11-18-2024 Glucose [Mass/Vol] Capillary blood gluc ose measurement by glucometer (mass/volume) [facility] Comment on above: Random Glucose Refer ence Range is dependent on time and content of last meal. Glucose of more than 200 mg/dL in a nonstressed, ambulatory subject supports the diagnosis of Diabetes Mellitus. Glucose Poct Glucometerson 0 11-18-2024 Commemt1 Glu2: Cleaned Meter Normal [facility] Comment on above: Result Comment: PERF ORMED BY: [facility] [address] [place] [address] PATHOLOGIST [employer] JESSI ARAMBULA M.D. Performed By: #### G LULS #### Point of Care testing , Glucose [Mass/Vol] 137 mg/dL Normal [facility] Comment on above: Result Comment: [place] om Glucose Reference Range is dependent on time and content of last meal. Glucose of more than 200 mg/dL in a nonstressed, ambulatory subject supports the diagnosis of Diabetes Mellitus. Performed By: #### G LULS #### Point of Care testing , Glucose [Mass/Vol] 119 mg/dL Normal [facility] Comment on above: Result Comment: [place] om Glucose Reference Range is dependent on time and content of last meal. Glucose of more than 200 mg/dL in a nonstressed, ambulatory subject supports the diagnosis of Diabetes Mellitus. PERFORMED BY: [address] [address] PATHOLOGIST [employer] J[employer]I ARAMBULA M.D. Performed By: #### G LULS #### Point of Care testing , Glucose [Mass/Vol] 109 mg/dL Normal [facility] Comment on above: Result Comment: [facility] Glucose Reference Range is dependent on time and content of last meal. Glucose of more than 200 mg/dL in a nonstressed, ambulatory subject supports the diagnosis of Diabetes Mellitus. PERFORMED BY: [address] [address] PATHOLOGIST [employer] J[employer]I ARAMBULA M.D. Performed By: #### G LULS #### Point of Care testing , Glucose [Mass/Vol] 120 mg/dL Normal [facility] Comment on above: Result Comment: [facility] Glucose Reference Range is dependent on time and content of last meal. Glucose of more than 200 mg/dL in a nonstressed, ambulatory subject supports the diagnosis of Diabetes Mellitus. PERFORMED BY: [address] [address] PATHOLOGIST [employer] J[employer]I ARAMBULA M.D. Performed By: #### G LULS #### Point of Care testing , Glucose [Mass/Vol] 127 mg/dL Normal [facility] Comment on above: Result Comment: [facility] Glucose Reference Range is dependent on time and content of last meal. Glucose of more than 200 mg/dL in a nonstressed, ambulatory subject supports the diagnosis of Diabetes Mellitus. PERFORMED BY: [address] [place] [address] PATHOLOGIST [employer] JESSI ARAMBULA M.D. Performed By: #### G LULS #### Point of Care testing , Glucose Poct Glucometerson 0 11-17-2024 Glucose [Mass/Vol] 118 mg/dL Normal [facility] Comment on above: Result Comment: [facility] Glucose Reference Range is dependent on time and content of last meal. Glucose of more than 200 mg/dL in a nonstressed, ambulatory subject supports the diagnosis of Diabetes Mellitus. PERFORMED BY: [address] [place] [address] PATHOLOGIST [employer] JESSI ARAMBULA M.D. Performed By: #### G LULS #### Point of Care testing , Glucose [Mass/Vol] 99 mg/dL Normal [facility] Comment on above: Result Comment: [place] om Glucose Reference Range is dependent on time and content of last meal. Glucose of more than 200 mg/dL in a nonstressed, ambulatory subject supports the diagnosis of Diabetes Mellitus. PERFORMED BY: [address] [place] [address] PATHOLOGIST [employer] JESSI ARAMBULA M.D. Performed By: #### G LULS #### Point of Care testing , Commemt1 Glu2: Cleaned Meter Normal [facility] Comment on above: Result Comment: PERF ORMED BY: [address] [place] [address] PATHOLOGIST [employer] J[employer]I ARAMBULA M.D. Performed By: #### G LULS #### Point of Care testing , Glucose [Mass/Vol] 99 mg/dL Normal [facility] Comment on above: Result Comment: [place] om Glucose Reference Range is dependent on time and content of last meal. Glucose of more than 200 mg/dL in a nonstressed, ambulatory subject supports the diagnosis of Diabetes Mellitus. Performed By: #### G LULS #### Point of Care testing , Glucose [Mass/Vol] 102 mg/dL Normal [facility] Comment on above: Result Comment: [place] om Glucose Reference Range is dependent on time and content of last meal. Glucose of more than 200 mg/dL in a nonstressed, ambulatory subject supports the diagnosis of Diabetes Mellitus. PERFORMED BY: [address] [address] PATHOLOGIST [employer] J[employer]I ARAMBULA M.D. Performed By: #### G LULS #### Point of Care testing , Glucose [Mass/Vol] 131 mg/dL Normal [facility] Comment on above: Result Comment: [place] Glucose Reference Range is dependent on time and content of last meal. Glucose of more than 200 mg/dL in a nonstressed, ambulatory subject supports the diagnosis of Diabetes Mellitus. PERFORMED BY: [facility] [address] [place] [address] PATHOLOGIST [employer] JESSI ARAMBULA M.D. Performed By: #### G LULS #### Point of Care testing , No Panel InformationOrdered By: Rahul Barboza on 11-17-2024 Bedside Glucose Comment Glu2: cleaned meter [facility] Antigen Identificationon Antigen Identification Positive Normal Th e [facility] Basic Metabolic Panelon 10-28 Anion gap [Moles/Vol] 9.1 mmol/L Normal 6.0-15.0 [facility] Comment on above: Performed By: #### G LULS #### Point of Care testing , Calcium [Mass/Vol] 8.4 mg/dL Low 8.6-10.3 [facility] Comment on above: Performed By: #### G LULS #### Point of Care testing , Chloride [Moles/Vol] 98 mmol/L Normal 98-107 [facility] Comment on above: Performed By: #### G LULS #### Point of Care testing , CO2 [Moles/Vol] 30.4 mmol/L Normal 21.0-31.0 [facility] Comment on above: Performed By: #### G LULS #### Point of Care testing , Creatinine [Mass/Vol] 0.54 mg/dL Low 0.70-1.30 [facility] Comment on above: Performed By: #### G LULS #### Point of Care testing , Creatinine Clr Calc Pharmacy 65.55 Normal [facility] Comment on above: Result Comment: PERF ORMED BY: [facility] [address] [address] PATHOLOGIST [employer] JESSI ARAMBULA M.D. Performed By: #### G LULS #### Point of Care testing , GFR/1.73 sq M.predicted MDRD (S/P/Bld) [Vol rate/Area] mL/min/{1.73_m2} Normal [facility] Comment on above: Performed By: #### G LULS #### Point of Care testing , Glucose [Mass/Vol] 110 mg/dL High 70-100 [facility] Comment on above: Result Comment: [place] Glucose Reference Range is dependent on time and content of last meal. Glucose of more than 200 mg/dL in a nonstressed, ambulatory subject supports the diagnosis of Diabetes Mellitus. ADA recommended reference range Performed By: #### G LULS #### Point of Care testing , Potassium [Moles/Vol] 4.5 mmol/L Normal 3.5-5.1 [facility] Comment on above: Performed By: #### G LULS #### Point of Care testing , Sodium [Moles/Vol] 133 mmol/L Low 136-145 [facility] Comment on above: Performed By: #### G LULS #### Point of Care testing , Urea nitrogen [Mass/Vol] 17 mg/dL Normal 7-25 [facility] Comment on above: Performed By: #### G LULS #### Point of Care testing , Basic metabolic 1998 panelon 11-16-2024 Anion gap [Moles/Vol] 9.1 mmol/L 6.0 - 15.0 meq/L [facility] Calcium [Mass/Vol] 8.4 mg/dL Low 8.6 - 10. 3 mg/dL [facility] Chloride [Moles/Vol] 98 mmol/L 98 - 10 7 mmol/L [facility] CO2 [Moles/Vol] 30.4 mmol/L 21.0 - 31.0 mmol/L [facility] Creatinine (U) [Mass/Vol] 0.54 mg/dL Low 0.70 - 1.30 mg/dL [facility] CREATININE CLR CALC PHARMACY 65.55 [facility] ESTIMATED GFR mL/Min [facility] Glucose [Mass/Vol] 110 mg/dL High 70 - 100 mg/dL [facility] Comment on above: Random Glucose Refer ence Range is dependent on time and content of last meal. Glucose of more than 200 mg/dL in a nonstressed, ambulatory subject supports the diagnosis of Diabetes Mellitus. ADA recommended reference range Interpretation and review of laboratory results Abnormal [facility] Potassium [Moles/Vol] 4.5 mmol/L 3.5 - 5.1 mmol/L [facility] Sodium [Moles/Vol] 133 mmol/L Low 136 - 145 mmol/L [facility] Urea nitrogen [Mass/Vol] 17 mg/dL 7 - 25 mg/dL [facility] Blood Bank Pathologist Revie won 11-16-2024 Blood Bank Pathologist Review Sent to Pathology Normal [facility] Comment on above: Result Comment: PERF ORMED BY: [facility] [address] [place] [address] PATHOLOGIST [employer] JESSI ARAMBULA M.D. Calcium [Mass/volume] in Ser um or PlasmaOrdered By: Amadou Arreguin on 11-16-2024 Calcium [Mass/Vol] Calcium [Mass/volume ] in Serum or Plasma Low 8.6-10.3 [facility] Carbon dioxide, total [Moles /volume] in Serum or PlasmaOrdered By: Amadou Arreguin on 11-16-2024 CO2 [Moles/Vol] Carbon dioxide, tota l [Moles/volume] in Serum or Plasma 21.0-31.0 [facility] Chloride [Moles/volume] in [place] or PlasmaOrdered By: Amadou Arreguin on 11-16-2024 Chloride [Moles/Vol] Chloride [Moles/vol ume] in Serum or Plasma 98-107 [facility] Creatinine [Mass/volume] in Serum or PlasmaOrdered By: Amadou Arreguin on 11-16-2024 Creatinine [Mass/Vol] Creatinine [Mass/v olume] in Serum or Plasma Low 0.70-1.30 [facility] Erythrocyte distribution wid th Auto (RBC) [Ratio]Ordered By: Amadou Arreguin on 11-16-2024 Erythrocyte distribution width (RBC) [Ratio] Erythrocyte distribution width [Ratio] by Automated count High 12.0-14.8 [facility] Glucose Poct Glucometerson 0 11-16-2024 Glucose [Mass/Vol] 89 mg/dL Normal [facility] Comment on above: Result Comment: [facility] Glucose Reference Range is dependent on time and content of last meal. Glucose of more than 200 mg/dL in a nonstressed, ambulatory subject supports the diagnosis of Diabetes Mellitus. PERFORMED BY: [address] [address] PATHOLOGIST [employer] J[employer]I ARAMBULA M.D. Performed By: #### G LULS #### Point of Care testing , Glucose [Mass/Vol] 120 mg/dL Normal [facility] Comment on above: Result Comment: [facility] Glucose Reference Range is dependent on time and content of last meal. Glucose of more than 200 mg/dL in a nonstressed, ambulatory subject supports the diagnosis of Diabetes Mellitus. PERFORMED BY: [address] [place] [address] PATHOLOGIST [employer] JESSI ARAMBULA M.D. Performed By: #### G LULS #### Point of Care testing , Glucose [Mass/Vol] 131 mg/dL Normal [facility] Comment on above: Result Comment: [facility] Glucose Reference Range is dependent on time and content of last meal. Glucose of more than 200 mg/dL in a nonstressed, ambulatory subject supports the diagnosis of Diabetes Mellitus. PERFORMED BY: [address] [place] [address] PATHOLOGIST [employer] JESSI ARAMBULA M.D. Performed By: #### G LULS ####Point of Care testing, Glucose [Mass/volume] in Ser um or PlasmaOrdered By: Amadou Arreguin on 11-16-2024 Glucose [Mass/Vol] Glucose [Mass/volume ] in Serum or Plasma High 70-100 [facility] Comment on above: ADA recommended refe rence rangeRandom Glucose Reference Range is dependent on time and content of last meal. Glucose of more than 200 mg/dL in a nonstressed, ambulatory subject supports the diagnosis of Diabetes Mellitus. HEMOGRAM CBC WITHOUT DIFF (F [facility])on 11-16-2024 Erythrocyte distribution width (RBC) [Ratio] 16.8 % High 12.0 - 14.8 % [facility] Hematocrit (Bld) [Volume fraction] 29.6 % Low 38.8 - 50.0 % [facility] Hemoglobin (Bld) [Mass/Vol] 10.1 g/dL Low 13.0 - 17.0 g/dL [facility] Interpretation and review of laboratory results Abnormal [facility] MCH (RBC) [Entitic mass] 31.5 pg 27.5 - 35.2 pg [facility] MCHC (RBC) [Mass/Vol] 34.2 g/dL 32.5 - 35.6 g/dL [facility] MCV (RBC) [Entitic vol] 92.1 fL 83.5 - 101 fL [facility] Platelet mean volume (Bld) [Entitic vol] 8.8 fL 6.6 - 10.1 fL [facility] Platelets (Bld) [#/Vol] 153 10*3/uL 150 - 450 10*3/uL [facility] RBC LM.HPF (Urine sed) [#/Area] 3.22 10*6/uL Low 3.90 - 5.60 10*6/uL [facility] WBC LM.HPF (Urine sed) [#/Area] 6.8 10*3/uL 4.1 - 10.5 10*3/uL [facility] Hematocrit Auto (Bld) [Volum e fraction]Ordered By: Amadou Arreguin on 11-16-2024 Hematocrit (Bld) [Volume fraction] Hematocrit [Volume Fraction] of Blood by Automated count Low 38.8-50.0 [facility] Hemoglobin [Mass/volume] in BloodOrdered By: Amadou Arreguin on 11-16-2024 Hemoglobin (Bld) [Mass/Vol] Hemoglobin [Mass/volume] in Blood Low 13.0-17.0 [facility] Hemogram CBC Without Diffon 11-16-2024 Erythrocyte distribution width (RBC) [Ratio] 16.8 % High 12.0-14.8 [facility] Comment on above: Performed By: #### G LULS #### Point of Care testing , Hematocrit (Bld) [Volume fraction] 29.6 % Low 38.8-50.0 [facility] Comment on above: Performed By: #### G LULS #### Point of Care testing , Hemoglobin (Bld) [Mass/Vol] 10.1 g/dL Low 13.0-17.0 [facility] Comment on above: Performed By: #### G LULS #### Point of Care testing , MCH (RBC) [Entitic mass] 31.5 pg Normal 27.5-35.2 [facility] Comment on above: Performed By: #### G LULS #### Point of Care testing , MCV (RBC) [Entitic vol] 92.1 fL Normal 83.5-101 [facility] Comment on above: Performed By: #### G LULS #### Point of Care testing , Mean Corpuscular HGB Conc 34.2 g/dL Normal 32.5-35.6 [facility] Comment on above: Performed By: #### G LULS #### Point of Care testing , Platelet mean volume (Bld) [Entitic vol] 8.8 fL Normal 6.6-10.1 [facility] Comment on above: Result Comment: PERF ORMED BY: [address] [place] [address] PATHOLOGIST [employer] JESSI ARAMBULA M.D. Performed By: #### G LULS #### Point of Care testing , Platelets (Bld) [#/Vol] 153 10*3/uL Normal 150-450 [facility] Comment on above: Performed By: #### G LULS #### Point of Care testing , RBC (Bld) [#/Vol] 3.22 10*6/uL Low 3.90-5.[address] [facility] Comment on above: Performed By: #### G LULS #### Point of Care testing , WBC (Bld) [#/Vol] 6.8 10*3/uL Normal 4.1-10.5 [facility] Comment on above: Performed By: #### G LULS #### Point of Care testing , Leukocytes [#/volume] correc bryant for nucleated erythrocytes in Blood by Automated counOrdered By: Amadou Arreguin on 11-16-2024 WBC corrected for nucl RBC Auto (Bld) [#/Vol] Leukocytes [#/volume] corrected for nucleated erythrocytes in Blood by Automated coun 4.1-10.5 [facility] MCH Auto (RBC) [Entitic mass ]Ordered By: Amadou Arreguin on 11-16-2024 MCH (RBC) [Entitic mass] MCH [Entitic mass] by Automated count 27.5-35.2 [facility] MCHC Auto (RBC) [Mass/Vol]Or dered By: Amadou Arreguin on 11-16-2024 MCHC (RBC) [Mass/Vol] MCHC [Mass/volume] by Automated count 32.5-35.6 [facility] MCV Auto (RBC) [Entitic vol] Ordered By: Amadou Arreguin on 11-16-2024 MCV (RBC) [Entitic vol] MCV [Entitic volume] by Automated count 83.5-101 [facility] No Panel InformationOrdered By: Amadou Arreguin on 11-16-2024 Estimated GFR (CKD-EPI) > 60.0 mL/Min [facility] Creatinine Clearance (Chem 65.55 [facility] Platelet mean volume Auto (B ld) [Entitic vol]Ordered By: Amadou Arreguin on 11-16-2024 Platelet mean volume (Bld) [Entitic vol] Platelet mean volume [Entitic volume] in Blood by Automated count 6.6-10.1 [facility] Platelets Auto (Bld) [#/Vol] Ordered By: Amadou Arreguin on 11-16-2024 Platelets (Bld) [#/Vol] Platelets [#/volume] in Blood by Automated count 150-450 [facility] Potassium [Moles/volume] in Serum or PlasmaOrdered By: Amadou Arreguin on 11-16-2024 Potassium [Moles/Vol] Potassium [Moles/v olume] in Serum or Plasma 3.5-5.1 [facility] RBC Auto (Bld) [#/Vol]Ordere d By: Amadou Arreguin on 11-16-2024 RBC (Bld) [#/Vol] Erythrocytes [#/volu me] in Blood by Automated count Low 3.90-5.60 [facility] Serum or plasma anion gap de terminationOrdered By: Amadou Arreguin on 11-16-2024 Anion gap [Moles/Vol] Serum or plasma an ion gap determination 6.0-15.0 [facility] Sodium [Moles/volume] in Ser um or PlasmaOrdered By: Amadou Arreguin on 11-16-2024 Sodium [Moles/Vol] Sodium [Moles/volume ] in Serum or Plasma Low 136-145 [facility] Urea nitrogen [Mass/volume] in Serum or PlasmaOrdered By: Amadou Arreguin on 11-16-2024 Urea nitrogen [Mass/Vol] Urea nitrogen [Mass/volume] in Serum or Plasma 7-25 [facility] ABO/Rh Retypeon 11-15-2024 ABO/RH Recheck Result Positive Normal [facility] Comment on above: Result Comment: PERF ORMED BY: [address] [place] [address] PATHOLOGIST [employer] JESSI ARAMBULA M.D. Antibody Identificationon Antibody Identification LE Normal [facility] Direct [place] 11-15-2024 Polyspecific AHG Negative Normal Negative [facility] Comment on above: Result Comment: PERF ORMED BY: [address] [place] [address] PATHOLOGIST TE[employer] JESSI ARAMBULA M.D. Glucose Poct Glucometerson 0 11-15-2024 Glucose [Mass/Vol] 107 mg/dL Normal [facility] Comment on above: Result Comment: [facility] [place] Glucose Reference Range is dependent on time and content of last meal. Glucose of more than 200 mg/dL in a nonstressed, ambulatory subject supports the diagnosis of Diabetes Mellitus. PERFORMED BY: [address] [place] [address] PATHOLOGIST TE[employer]ER OF [employer] JESSI ARAMBULA M.D. Performed By: #### G LULS ####Point of Care testing, Glucose [Mass/Vol] 120 mg/dL Normal [facility] Comment on above: Result Comment: [place] Glucose Reference Range is dependent on time and content of last meal. Glucose of more than 200 mg/dL in a nonstressed, ambulatory subject supports the diagnosis of Diabetes Mellitus. PERFORMED BY: [facility] [place] [address] PATHOLOGIST TE[employer] JESSI ARAMBULA M.D. Performed By: #### G MELISSA #### Point of Care testing , Narayan 11-15-2024 L ----- Specimen: [id number] Received: 11/16/24 Status: [place] Akanksha Num: [id number] Spec Type: Impression Subm Dr: Amadou Arreguin MD Tissues: PATHBBK Procedures: PATHREVIEW Age/ Patient Sex Location Account Attending Physician Bravo Arce 84/M 4N [id number] Rahul Barboza MD SPEC NUM: [id number] RECD: 11/16/24 STATUS: [place] AKANKSHA NUM: [id number] CABRERA: 11/15/24- [facility] DR: Amadou Arreguin MD ENTERED: 11/16/24 [facility] DR: SPEC TYPE: Impression DEPT: MT ORDERED: [facility] Results Date Time Test Result Flag (u) Normal Range 11/15/242033 Ab Screen POSITIVE AB ID [id number]/15/[id number] Anti-e Pathologist Review Positive 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 Polyspecific AHG: Negative CPT: 15609 Specimen: Received: 11/16/24 Status: INEZEnrico Vale Num: [id number] Spec Type: Impression Subm Dr: Amadou Arreguin MD Tissues: PATHBBK Procedures: PATHREVIEW Patient: Bravo Arce [id number] (Formerly [facility]) Signed (signature on file) Jessi Arambula MD 11/19/24 1711 Normal [facility] Pathology study report docum entOrdered By: Jessi Arambula on 11-15-2024 Pathology study [facility] Other Type and Screenon 11-15-2024 ABO and Rh group Nom (Bld) Blood group A Rh(D) positive Normal [facility] Comment on above: Result Comment: PERF ORMED BY: [facility] [place] [address] PATHOLOGIST TE[employer] JESSI ARAMBULA M.D. Basic Metabolic Panelon 10-27 Anion gap [Moles/Vol] 4.6 mmol/L Low 6.0-15.0 [facility] Comment on above: Performed By: #### G LULS #### Point of Care testing , Calcium [Mass/Vol] 8.0 mg/dL Low 8.6-10.3 [facility] Comment on above: Performed By: #### G LULS #### Point of Care testing , Chloride [Moles/Vol] 101 mmol/L Normal 98-107 [facility] Comment on above: Performed By: #### G LULS #### Point of Care testing , CO2 [Moles/Vol] 32.8 mmol/L High 21.0-31.0 [facility] Comment on above: Performed By: #### G LULS #### Point of Care testing , Creatinine [Mass/Vol] 0.62 mg/dL Low 0.70-1.30 [facility] Comment on above: Performed By: #### G LULS #### Point of Care testing , Creatinine Clr Calc Pharmacy 62.33 Normal [facility] Comment on above: Result Comment: PERF ORMED BY: [facility] [place] [address] PATHOLOGIST TE[employer] JESSI ARAMBULA M.D. Performed By: #### G LULS #### Point of Care testing , GFR/1.73 sq M.predicted MDRD (S/P/Bld) [Vol rate/Area] mL/min/{1.73_m2} Normal [facility] Comment on above: Performed By: #### G LULS #### Point of Care testing , Glucose [Mass/Vol] 109 mg/dL High 70-100 [facility] Comment on above: Result Comment: [place] Glucose Reference Range is dependent on time and content of last meal. Glucose of more than 200 mg/dL in a nonstressed, ambulatory subject supports the diagnosis of Diabetes Mellitus. ADA recommended reference range Performed By: #### G LULS #### Point of Care testing , Potassium [Moles/Vol] 4.4 mmol/L Normal 3.5-5.1 [facility] Comment on above: Performed By: #### G LULS #### Point of Care testing , Sodium [Moles/Vol] 134 mmol/L Low 136-145 [facility] Comment on above: Performed By: #### G LULS #### Point of Care testing , Urea nitrogen [Mass/Vol] 27 mg/dL High 7-25 [facility] Comment on above: Performed By: #### G LULS #### Point of Care testing , Basophils Auto (Bld) [#/Vol] Ordered By: Godwin Gordillo on 11-14-2024 Basophils (Bld) [#/Vol] Automated basophil count 0.0-0.2 [facility] Basophils/100 WBC Auto (Bld) Ordered By: Godwin Gordillo on 11-14-2024 Basophils/100 WBC (Bld) Automated basophil % . [facility] Complete Blood Count Auto Di ffon 11-14-2024 Basophils (Bld) [#/Vol] 0.0 10*3/uL Normal 0.0-0.2 [facility] Comment on above: Result Comment: PERF ORMED BY: [facility] [place] [address] PATHOLOGIST TE[employer] JESSI ARAMBULA M.D. Performed By: #### G LULS #### Point of Care testing , Basophils/100 WBC (Bld) 0.6 % Normal . [facility] Comment on above: Performed By: #### G LULS #### Point of Care testing , Eosinophils (Bld) [#/Vol] 0.2 10*3/uL Normal 0.0-0.45 [facility] Comment on above: Performed By: #### G LULS #### Point of Care testing , Eosinophils/100 WBC (Bld) 2.9 % Normal . [facility] Comment on above: Performed By: #### G LULS #### Point of Care testing , Erythrocyte distribution width (RBC) [Ratio] 16.1 % High 12.0-14.8 [facility] Comment on above: Performed By: #### G LULS #### Point of Care testing , Hematocrit (Bld) [Volume fraction] 29.0 % Low 38.8-50.0 [facility] Comment on above: Performed By: #### G LULS #### Point of Care testing , Hemoglobin (Bld) [Mass/Vol] 9.9 g/dL Low 13.0-17.0 [facility] Comment on above: Performed By: #### G LULS #### Point of Care testing , Lymphocytes (Bld) [#/Vol] 1.2 10*3/uL Normal 1.00-4.8 [facility] Comment on above: Performed By: #### G LULS #### Point of Care testing , Lymphocytes/100 WBC (Bld) 17.5 % Normal . [facility] Comment on above: Performed By: #### G LULS #### Point of Care testing , MCH (RBC) [Entitic mass] 31.1 pg Normal 27.5-35.2 [facility] Comment on above: Performed By: #### G LULS #### Point of Care testing , MCV (RBC) [Entitic vol] 90.9 fL Normal 83.5-101 [facility] Comment on above: Performed By: #### G LULS #### Point of Care testing , Mean Corpuscular HGB Conc 34.2 g/dL Normal 32.5-35.6 [facility] Comment on above: Performed By: #### G LULS #### Point of Care testing , Monocytes (Bld) [#/Vol] 1.2 10*3/uL High 0.0-0.8 [facility] Comment on above: Performed By: #### G LULS #### Point of Care testing , Monocytes/100 WBC (Bld) 17.2 % Normal . [facility] Comment on above: Performed By: #### G LULS #### Point of Care testing , Neutrophils (Bld) [#/Vol] 4.3 10*3/uL Normal 1.8-7.7 [facility] Comment on above: Performed By: #### G LULS #### Point of Care testing , Neutrophils/100 WBC (Bld) 61.8 % Normal . [facility] Comment on above: Performed By: #### G LULS #### Point of Care testing , NRBC% 0.2 /100{WBC} Normal 0-0.5 [facility] Comment on above: Performed By: #### G LULS #### Point of Care testing , Platelet mean volume (Bld) [Entitic vol] 8.7 fL Normal 6.6-10.1 [facility] Comment on above: Performed By: #### G LULS #### Point of Care testing , Platelets (Bld) [#/Vol] 156 10*3/uL Significant change down 150-450 [facility] Comment on above: Performed By: #### G LULS #### Point of Care testing , RBC (Bld) [#/Vol] 3.19 10*6/uL Low 3.90-5.[address] [facility] Comment on above: Performed By: #### G LULS #### Point of Care testing , WBC (Bld) [#/Vol] 6.9 10*3/uL Normal 4.1-10.5 [facility] Comment on above: Performed By: #### G LULS #### Point of Care testing , Eosinophils Auto (Bld) [#/Vo l]Ordered By: Godwin Gordillo on 11-14-2024 Eosinophils (Bld) [#/Vol] Automated eosinophil count 0.0-0.45 [facility] Eosinophils/100 WBC Auto (Bl d)Ordered By: Godwin Gordillo on 11-14-2024 Eosinophils/100 WBC (Bld) Automated eosinophil % . [facility] Glucose Poct Glucometerson 0 11-14-2024 Glucose [Mass/Vol] 122 mg/dL Normal [facility] Comment on above: Result Comment: [facility] Glucose Reference Range is dependent on time and content of last meal. Glucose of more than 200 mg/dL in a nonstressed, ambulatory subject supports the diagnosis of Diabetes Mellitus. PERFORMED BY: [address] [place] [address] PATHOLOGIST TE[employer] JESSI ARAMBULA M.D. Performed By: #### G LULS #### Point of Care testing , Glucose [Mass/Vol] 132 mg/dL Normal [facility] Comment on above: Result Comment: [facility] [place] Glucose Reference Range is dependent on time and content of last meal. Glucose of more than 200 mg/dL in a nonstressed, ambulatory subject supports the diagnosis of Diabetes Mellitus. PERFORMED BY: [facility] [address] [place] [address] PATHOLOGIST TE[employer] JESSI ARAMBULA M.D. Performed By: #### G LULS #### Point of Care testing , Commemt1 Glu2: Cleaned Meter Normal The [facility] Comment on above: Result Comment: PERF ORMED BY: [address] [place] [address] PATHOLOGIST TE[employer] JESSI ARAMBULA M.D. Performed By: #### G LULS #### Point of Care testing , Glucose [Mass/Vol] 116 mg/dL Normal [facility] Comment on above: Result Comment: [place] om Glucose Reference Range is dependent on time and content of last meal. Glucose of more than 200 mg/dL in a nonstressed, ambulatory subject supports the diagnosis of Diabetes Mellitus. Performed By: #### G LULS #### Point of Care testing , Commemt1 Glu2: Cleaned Meter Normal The [facility] Comment on above: Result Comment: PERF ORMED BY: [address] [place] [address] PATHOLOGIST TE[employer] JESSI ARAMBULA M.D. Performed By: #### G LULS #### Point of Care testing , Glucose [Mass/Vol] 115 mg/dL Normal [facility] Comment on above: Result Comment: [place] om Glucose Reference Range is dependent on time and content of last meal. Glucose of more than 200 mg/dL in a nonstressed, ambulatory subject supports the diagnosis of Diabetes Mellitus. Performed By: #### G LULS #### Point of Care testing , Glucose [Mass/Vol] 119 mg/dL Normal [facility] Comment on above: Result Comment: [place] om Glucose Reference Range is dependent on time and content of last meal. Glucose of more than 200 mg/dL in a nonstressed, ambulatory subject supports the diagnosis of Diabetes Mellitus. PERFORMED BY: [place] [address] PATHOLOGIST TE[employer]ER [employer] JESSI ARAMBULA M.D. Performed By: #### G LULS #### Point of Care testing , Lymphocytes Auto (Bld) [#/Vo l]Ordered By: Godwin Gordillo on 02-19-2025 Lymphocytes (Bld) [#/Vol] Lymphocytes [#/volume] in Blood by Automated count 1.00-4.8 [facility] Lymphocytes/100 WBC Auto (Bl d)Ordered By: Godwin Gordillo on 11-14-2024 Lymphocytes/100 WBC (Bld) Lymphocytes/100 leukocytes in Blood by Automated count . [facility] Monocytes Auto (Bld) [#/Vol] Ordered By: Godwin Gordillo on 11-14-2024 Monocytes (Bld) [#/Vol] Automated blood monocyte count High 0.0-0.8 [facility] Monocytes/100 WBC Auto (Bld) Ordered By: Godwin Gordillo on 11-14-2024 Monocytes/100 WBC (Bld) Automated monocyte % . [facility] Neutrophils Auto (Bld) [#/Vo l]Ordered By: Godwin Gordillo on 11-14-2024 Neutrophils (Bld) [#/Vol] Neutrophils [#/volume] in Blood by Automated count 1.8-7.7 [facility] Neutrophils/100 WBC Auto (Bl d)Ordered By: Godwin Gordillo on 11-14-2024 Neutrophils/100 WBC (Bld) Automated neutrophil % . [facility] Nucleated erythrocytes [Pres ence] in Blood by Automated countOrdered By: Godwin Gordillo on 11-14-2024 Nucleated RBC Auto Ql (Bld) Nucleated erythrocytes [Presence] in Blood by Automated count 0-0.5 [facility] WBC Auto (Bld) [#/Vol]Ordere d By: Godwin Gordillo on 11-14-2024 WBC (Bld) [#/Vol] Leukocytes [#/volume ] in Blood by Automated count 4.1-10.5 [facility] Basic Metabolic Panelon 10-27 Anion gap [Moles/Vol] 12.9 mmol/L Normal 6.0-15.0 e [facility] Comment on above: Performed By: #### B MP, CBC #### [address] Calcium [Mass/Vol] 8.8 mg/dL Normal 8.6-10.3 [facility] Comment on above: Performed By: #### B MP, CBC #### [place] [address] [place] Chloride [Moles/Vol] 99 mmol/L Normal 98-107 [facility] Comment on above: Performed By: #### B MP, CBC #### [address] CO2 [Moles/Vol] 29.2 mmol/L Normal 21.0-31.0 [facility] Comment on above: Performed By: #### B MP, CBC #### [address] Creatinine [Mass/Vol] 0.68 mg/dL Low 0.70-1.30 [facility] Comment on above: Performed By: #### B MP, CBC #### [place] [address] [place] Creatinine Clr Calc Pharmacy 62.33 Normal [facility] Comment on above: Result Comment: PERF ORMED BY: [place] [address] PATHOLOGIST TE[employer] JESSI ARAMBULA M.D. Performed By: #### B MP, CBC #### [place] [address] [place] GFR/1.73 sq M.predicted MDRD (S/P/Bld) [Vol rate/Area] mL/min/{1.73_m2} Normal [facility] Comment on above: Performed By: #### B MP, CBC #### [address] Glucose [Mass/Vol] 130 mg/dL High 70-100 [facility] Comment on above: Result Comment: [place] Glucose Reference Range is dependent on time and content of last meal. Glucose of more than 200 mg/dL in a nonstressed, ambulatory subject supports the diagnosis of Diabetes Mellitus. ADA recommended reference range Performed By: #### B MP, CBC #### [place] [address] [place] Potassium [Moles/Vol] 5.1 mmol/L Normal 3.5-5.1 [facility] Comment on above: Performed By: #### B MP, CBC #### [address] Sodium [Moles/Vol] 136 mmol/L Normal 136-145 [facility] Comment on above: Performed By: #### B MP, CBC #### [address] Urea nitrogen [Mass/Vol] 22 mg/dL Normal 7-25 [facility] Comment on above: Performed By: #### B MP, CBC #### [address] Complete Blood Count Auto Di ffon 11-13-2024 Basophils (Bld) [#/Vol] 0.0 10*3/uL Normal 0.0-0.2 [facility] Comment on above: Result Comment: PERF ORMED BY: [place] [address] PATHOLOGIST TE[employer] JESSI ARAMBULA M.D. Performed By: #### B MP, CBC #### [address] Basophils/100 WBC (Bld) 0.2 % Normal . [facility] Comment on above: Performed By: #### B MP, CBC #### [address] Eosinophils (Bld) [#/Vol] 0.0 10*3/uL Normal 0.0-0.45 [facility] Comment on above: Performed By: #### B MP, CBC #### [address] Eosinophils/100 WBC (Bld) 0.0 % Normal . [facility] Comment on above: Performed By: #### B MP, CBC #### [address] Erythrocyte distribution width (RBC) [Ratio] 15.9 % High 12.0-14.8 [facility] Comment on above: Performed By: #### B MP, CBC #### [address] Hematocrit (Bld) [Volume fraction] 35.8 % Low 38.8-50.0 [facility] Comment on above: Performed By: #### B MP, CBC #### [address] Hemoglobin (Bld) [Mass/Vol] 12.0 g/dL Low 13.0-17.0 [facility] Comment on above: Performed By: #### B MP, CBC #### [address] Lymphocytes (Bld) [#/Vol] 0.9 10*3/uL Low 1.00-4.8 [facility] Comment on above: Performed By: #### B MP, CBC #### [address] Lymphocytes/100 WBC (Bld) 10.6 % Normal . [facility] Comment on above: Performed By: #### B MP, CBC #### [address] MCH (RBC) [Entitic mass] 30.9 pg Normal 27.5-35.2 [facility] Comment on above: Performed By: #### B MP, CBC #### [address] MCV (RBC) [Entitic vol] 92.3 fL Normal 83.5-101 [facility] Comment on above: Performed By: #### B MP, CBC #### [address] Mean Corpuscular HGB Conc 33.4 g/dL Normal 32.5-35.6 [facility] Comment on above: Performed By: #### B MP, CBC #### [address] Monocytes (Bld) [#/Vol] 0.9 10*3/uL High 0.0-0.8 [facility] Comment on above: Performed By: #### B MP, CBC #### [facility] [address] [place] [address] [place] Monocytes/100 WBC (Bld) 10.3 % Normal . [facility] Comment on above: Performed By: #### B MP, CBC #### [facility] [address] Neutrophils (Bld) [#/Vol] 6.8 10*3/uL Normal 1.8-7.7 [facility] Comment on above: Performed By: #### B MP, CBC #### [facility] [address] [place] [address] [place] Neutrophils/100 WBC (Bld) 78.9 % Normal . [facility] Comment on above: Performed By: #### B MP, CBC #### [facility] [address] NRBC% 0.1 /100{WBC} Normal 0-0.5 [facility] Comment on above: Performed By: #### B MP, CBC #### [facility] [address] Platelet mean volume (Bld) [Entitic vol] 8.9 fL Normal 6.6-10.1 [facility] Comment on above: Performed By: #### B MP, CBC #### [facility] [address] [place] [address] [place] Platelets (Bld) [#/Vol] 223 10*3/uL Normal 150-450 [facility] Comment on above: Performed By: #### B MP, CBC #### [facility] [address] [place] [address] [place] RBC (Bld) [#/Vol] 3.87 10*6/uL Low 3.90-5.[address] [facility] Comment on above: Performed By: #### B MP, CBC #### [facility] [address] [place] [address] [place] WBC (Bld) [#/Vol] 8.6 10*3/uL Normal 4.1-10.5 [facility] Comment on above: Performed By: #### B MP, CBC #### [facility] [address] [place] [id number] [facility] Glucose Poct Glucometerson 0 11-13-2024 Glucose [Mass/Vol] 118 mg/dL Normal [facility] Comment on above: Result Comment: [place] om Glucose Reference Range is dependent on time and content of last meal. Glucose of more than 200 mg/dL in a nonstressed, ambulatory subject supports the diagnosis of Diabetes Mellitus. PERFORMED BY: [place] [address] PATHOLOGIST [employer] JESSI ARAMBULA M.D. Performed By: #### G LULS #### Point of Care testing , Glucose [Mass/Vol] 138 mg/dL Normal [facility] Comment on above: Result Comment: [place] om Glucose Reference Range is dependent on time and content of last meal. Glucose of more than 200 mg/dL in a nonstressed, ambulatory subject supports the diagnosis of Diabetes Mellitus. PERFORMED BY: [place] [address] PATHOLOGIST TE[employer] JESSI ARAMBULA M.D. Performed By: #### B TRACIE, CBC #### [address] Glucose [Mass/Vol] 167 mg/dL Normal [facility] Comment on above: Result Comment: [place] om Glucose Reference Range is dependent on time and content of last meal. Glucose of more than 200 mg/dL in a nonstressed, ambulatory subject supports the diagnosis of Diabetes Mellitus. PERFORMED BY: [place] [id number] PATHOLOGIST TE[employer] JESSI ARAMBULA M.D. Performed By: #### G LULS #### Point of Care testing , Glucose [Mass/Vol] 145 mg/dL Normal [facility] Comment on above: Result Comment: [place] om Glucose Reference Range is dependent on time and content of last meal. Glucose of more than 200 mg/dL in a nonstressed, ambulatory subject supports the diagnosis of Diabetes Mellitus. PERFORMED BY: [address] [place] [address] PATHOLOGIST TE[employer] JESSI ARAMBULA M.D. Performed By: #### B MP, CBC #### [address] Glucose [Mass/Vol] 135 mg/dL Normal [facility] Comment on above: Result Comment: [facility] [place] Glucose Reference Range is dependent on time and content of last meal. Glucose of more than 200 mg/dL in a nonstressed, ambulatory subject supports the diagnosis of Diabetes Mellitus. PERFORMED BY: [place] [address] PATHOLOGIST TE[employer] JESSI ARAMBULA M.D. Performed By: #### B MP, CBC #### [address] Alanine aminotransferase [En zymatic activity/volume] in Serum or PlasmaOrdered By: Orestes Guthrie on 11-12-2024 ALT [Catalytic activity/Vol] Alanine aminotransferase [Enzymatic activity/volume] in Serum or Plasma 7-52 [facility] Albumin [Mass/volume] in Ser um or Plasma by Bromocresol green (BCG) dye binding methoOrdered By: Orestes Guthrie on 11-12-2024 Albumin BCG dye [Mass/Vol] Albumin [Mass/volume] in Serum or Plasma by Bromocresol green (BCG) dye binding metho Low 3.5-5.7 [facility] Alkaline phosphatase [Enzyma tic activity/volume] in Serum or PlasmaOrdered By: Orestes Guthrie on 11-12-2024 ALP [Catalytic activity/Vol] Alkaline phosphatase [Enzymatic activity/volume] in Serum or Plasma 34-104 [facility] Aspartate aminotransferase [ Enzymatic activity/volume] in Serum or PlasmaOrdered By: Orestes Guthrie on 11-12-2024 AST [Catalytic activity/Vol] Aspartate aminotransferase [Enzymatic activity/volume] in Serum or Plasma 13-39 [facility] Bilirubin.total [Mass/volume ] in Serum or PlasmaOrdered By: Orestes Guthrie on 11-12-2024 Bilirubin [Mass/Vol] Bilirubin.total [Mass/volume] in Serum or Plasma High 0.3-1.0 [facility] Complete Blood Count Auto Di ffon 11-12-2024 Basophils (Bld) [#/Vol] 0.0 10*3/uL Normal 0.0-0.2 [facility] Comment on above: Result Comment: PERF ORMED BY: [facility] [place] [id number] PATHOLOGIST [employer] JESSI ARAMBULA M.D. Performed By: #### G LULS #### Point of Care testing , Basophils/100 WBC (Bld) 0.9 % Normal . [facility] Comment on above: Performed By: #### G LULS #### Point of Care testing , Eosinophils (Bld) [#/Vol] 0.2 10*3/uL Normal 0.0-0.45 [facility] Comment on above: Performed By: #### G LULS #### Point of Care testing , Eosinophils/100 WBC (Bld) 3.3 % Normal . [facility] Comment on above: Performed By: #### G LULS #### Point of Care testing , Erythrocyte distribution width (RBC) [Ratio] 16.0 % High 12.0-14.8 [facility] Comment on above: Performed By: #### G LULS #### Point of Care testing , Hematocrit (Bld) [Volume fraction] 35.4 % Low 38.8-50.0 [facility] Comment on above: Performed By: #### G LULS #### Point of Care testing , Hemoglobin (Bld) [Mass/Vol] 12.0 g/dL Low 13.0-17.0 [facility] Comment on above: Performed By: #### G LULS #### Point of Care testing , Lymphocytes (Bld) [#/Vol] 1.1 10*3/uL Normal 1.00-4.8 [facility] Comment on above: Performed By: #### G LULS #### Point of Care testing , Lymphocytes/100 WBC (Bld) 21.2 % Normal . [facility] Comment on above: Performed By: #### G LULS #### Point of Care testing , MCH (RBC) [Entitic mass] 31.2 pg Normal 27.5-35.2 [facility] Comment on above: Performed By: #### G LULS #### Point of Care testing , MCV (RBC) [Entitic vol] 91.8 fL Normal 83.5-101 [facility] Comment on above: Performed By: #### G LULS #### Point of Care testing , Mean Corpuscular HGB Conc 34.0 g/dL Normal 32.5-35.6 [facility] Comment on above: Performed By: #### G LULS #### Point of Care testing , Monocytes (Bld) [#/Vol] 0.7 10*3/uL Normal 0.0-0.8 [facility] Comment on above: Performed By: #### G LULS #### Point of Care testing , Monocytes/100 WBC (Bld) 13.4 % Normal . [facility] Comment on above: Performed By: #### G LULS #### Point of Care testing , Neutrophils (Bld) [#/Vol] 3.3 10*3/uL Normal 1.8-7.7 [facility] Comment on above: Performed By: #### G LULS #### Point of Care testing , Neutrophils/100 WBC (Bld) 61.2 % Normal . [facility] Comment on above: Performed By: #### G LULS #### Point of Care testing , NRBC% 0.1 /100{WBC} Normal 0-0.5 [facility] Comment on above: Performed By: #### G LULS #### Point of Care testing , Platelet mean volume (Bld) [Entitic vol] 9.2 fL Normal 6.6-10.1 [facility] Comment on above: Performed By: #### G LULS #### Point of Care testing , Platelets (Bld) [#/Vol] 197 10*3/uL Normal 150-450 [facility] Comment on above: Performed By: #### G LULS #### Point of Care testing , RBC (Bld) [#/Vol] 3.86 10*6/uL Low 3.90-5.[address] [facility] Comment on above: Performed By: #### G LULS #### Point of Care testing , WBC (Bld) [#/Vol] 5.4 10*3/uL Normal 4.1-10.5 [facility] Comment on above: Performed By: #### G KAITLYNNLS #### Point of Care testing , Comprehensive Metabolic Pane narayan 11-12-2024 Albumin [Mass/Vol] 3.1 g/dL Low 3.5-5.7 [facility] Comment on above: Performed By: #### G KAITLYNNLS #### Point of Care testing , Albumin/Globulin [Mass ratio] 0.9 {ratio} Normal [facility] Comment on above: Performed By: #### G KAITLYNNLS #### Point of Care testing , ALP [Catalytic activity/Vol] 83 U/L Normal 34-104 [facility] Comment on above: Performed By: #### G KAITLYNNLS #### Point of Care testing , ALT [Catalytic activity/Vol] 29 U/L Normal 7-52 [facility] Comment on above: Performed By: #### G KAITLYNNLS #### Point of Care testing , Anion gap [Moles/Vol] 12.8 mmol/L Normal 6.0-15.0 [facility] Comment on above: Performed By: #### G KAITLYNNLS #### Point of Care testing , AST [Catalytic activity/Vol] 27 U/L Normal 13-39 [facility] Comment on above: Performed By: #### G KAITLYNNLS #### Point of Care testing , Bilirubin [Mass/Vol] 1.1 mg/dL High 0.3-1.0 [facility] Comment on above: Performed By: #### G KAITLYNNLS #### Point of Care testing , Calcium [Mass/Vol] 8.8 mg/dL Normal 8.6-10.3 [facility] Comment on above: Performed By: #### G LULS #### Point of Care testing , Chloride [Moles/Vol] 100 mmol/L Normal 98-107 [facility] Comment on above: Performed By: #### G LULS #### Point of Care testing , CO2 [Moles/Vol] 27.4 mmol/L Normal 21.0-31.0 [facility] Comment on above: Performed By: #### G LULS #### Point of Care testing , Creatinine [Mass/Vol] 0.61 mg/dL Low 0.70-1.30 [facility] Comment on above: Performed By: #### G LULS #### Point of Care testing , Creatinine Clr Calc Pharmacy 61.73 Normal [facility] Comment on above: Performed By: #### G LULS #### Point of Care testing , GFR/1.73 sq M.predicted MDRD (S/P/Bld) [Vol rate/Area] mL/min/{1.73_m2} Normal [facility] Comment on above: Performed By: #### G LULS #### Point of Care testing , Globulin (S) [Mass/Vol] 3.4 g/dL Normal [facility] Comment on above: Performed By: #### G LULS #### Point of Care testing , Glucose [Mass/Vol] 90 mg/dL Normal 70-100 [facility] Comment on above: Result Comment: [place] Glucose Reference Range is dependent on time and content of last meal. Glucose of more than 200 mg/dL in a nonstressed, ambulatory subject supports the diagnosis of Diabetes Mellitus. ADA recommended reference range Performed By: #### G LULS #### Point of Care testing , Potassium [Moles/Vol] 4.2 mmol/L Normal 3.5-5.1 [facility] Comment on above: Performed By: #### G LULS #### Point of Care testing , Protein [Mass/Vol] 6.5 g/dL Normal 6.4-8.9 [facility] Comment on above: Performed By: #### G LULS #### Point of Care testing , Sodium [Moles/Vol] 136 mmol/L Normal 136-145 [facility] Comment on above: Performed By: #### G LULS #### Point of Care testing , Urea nitrogen [Mass/Vol] 22 mg/dL Normal 7-25 [facility] Comment on above: Performed By: #### G LULS #### Point of Care testing , Globulin Calc (S) [Mass/Vol] Ordered By: Orestes Guthrie on 11-12-2024 Globulin (S) [Mass/Vol] Serum globulin measurement by calculation (mass/volume) [facility] Glucose Poct Glucometerson 0 11-12-2024 Glucose [Mass/Vol] 132 mg/dL Normal [facility] Comment on above: Result Comment: [place] om Glucose Reference Range is dependent on time and content of last meal. Glucose of more than 200 mg/dL in a nonstressed, ambulatory subject supports the diagnosis of Diabetes Mellitus. PERFORMED BY: [place] [address] PATH[employer]IST [employer] JESSI ARAMBULA M.D. Performed By: #### G MELISSA #### Point of Care testing , Commemt1 Normal [facility] Comment on above: Result Comment: Glu2 : WILL NOTIFY DR/GREG Performed By: #### B MP, CBC #### [address] Commemt2 Cleaned Meter Normal [facility] Comment on above: Result Comment: PERF ORMED BY: [place] [address] PATHOLOGIST [employer] JESSI ARAMBULA M.D. Performed By: #### B MP, CBC #### [address] Glucose [Mass/Vol] 93 mg/dL Normal [facility] Comment on above: Result Comment: [place] om Glucose Reference Range is dependent on time and content of last meal. Glucose of more than 200 mg/dL in a nonstressed, ambulatory subject supports the diagnosis of Diabetes Mellitus. Performed By: #### B MP, CBC #### [place] [address] [place] Narayan 11-12-2024 L ----- Specimen: [id number] Received: 11/13/24 Status: [place] Vale Num: [id number] Spec Type: Surgical Subm Dr: Godwin Gordillo DO Tissues: A Femoral Head - Fracture (bone and tissue left hip) Procedures: HE/2, Gross/Micro L4, Decalcification Age/ Patient Sex Location Account Attending Physician Bravo Arce/Carlos 4N [id number] Rahul Barboza MD SPEC NUM: [id number] RECD: 11/13/24 STATUS: [place] VALE NUM: [id number] CABRERA: 11/12/24-0000 [facility] DR: Godwin Gordillo DO ENTERED: 11/13/24 [facility] DR: SARAVANAN TYPE: Surgical DEPT: S ENTERED BY: [id number] RECV BY: [id number] ORDERED: HE/2, Gross/Micro L4, Decalcification ORDERED: HE/2, Gross/Micro L4, Decalcification Pathological Diagnosis Bone and tissue, left hip, arthroplasty: Regenerative changes, consistent with healing fracture. Clinical Information Fracture LT hip Gross Description Part A is received in formalin labeled with the patients name, date of , and Bone and tissue left hip is a femoral head, 5.1 x 5.2 x 4.5 cm, with detached fragmented femoral neck, 6 x 2.5 x 1.5 cm in aggregate. The articular surface is smooth and glistening. The point of attachment for the femoral neck is rough and irregular, 5 x 4.3 cm. The subarticular capsular surface ranges from 0.2 to 0.3 cm in thickness. The point of attachment for the femoral neck displays a rim of dusky bone, up to 2.5 centimeters in thickness. The remaining medullary bone is lange, firm and uniform. The fragmented femoral neck displays entirely dusky cut surfaces. Director Of Loss Prevention sections are submitted in A1?A2 after decalcification in rapid Hari immuno. (2, ss, [id number] A) CPT Codes 81312 13999 Specimen: [id number] Received: 11/13/24 Status: [place] Garnica: [id number] Spec Type: Surgical Subm Dr: Godwin Gordillo, Tissues: A Femoral Head - Fracture (bone and tissue left hip) Procedures: HE/2, Gross/Micro L4, Decalcification Patient: Bravo Arce [id number] (Continued) Signed (signature on file) Jessi Arambula MD 11/15/24 1417 Normal [facility] Magnesiumon 11-12-2024 Magnesium [Mass/Vol] 1.8 mg/dL Low 1.9-2.7 [facility] Comment on above: Result Comment: PERF ORMED BY: [facility] [address] [place] [address] PATHOLOGIST [employer] JESSI ARAMBULA M.D. Performed By: #### G LULS #### Point of Care testing , Magnesium [Mass/volume] in S braeden or PlasmaOrdered By: Orestes Guthrie on 11-12-2024 Magnesium [Mass/Vol] Magnesium [Mass/vol ume] in Serum or Plasma Low 1.9-2.7 [facility] No Panel InformationOrdered By: Rahul Barboza on 11-12-2024 Bedside Glucose #2 Comment Cleaned meter [facility] Protein [Mass/volume] in Ser um or PlasmaOrdered By: Orestes Guthrie on 11-12-2024 Protein [Mass/Vol] Protein [Mass/volume ] in Serum or Plasma 6.4-8.9 [facility] Serum or plasma albumin/glob ulin mass ratioOrdered By: Orestes Guthrie on 11-12-2024 Albumin/Globulin [Mass ratio] Serum or plasma albumin/globulin mass ratio [facility] X-ray reportOrdered By: Ja Navarro on 11-12-2024 Study report [address] [address] XRay Report Signed Patient: Bravo Arce MR#: [id number] : 1940 Acct:[id number] Age/Sex: 84 / M ADM Date: 5 Loc: Room: [address] [place] [address] Type: ADM IN Attending Dr: Rahul Barboza [...] Torres Navarro M.D.11/12/2024 5:17 PM Dictation Location: [place] [address] Transcribed By: [facility] 11/12/241716 Dictated By: Torres Navarro DO 11/12/241715 Signed By: 11/12/241716 [facility] XR pelvis 1-2Von 11-12-2024 XR pelvis 1-2V [address] [address] XRay Report Signed Patient: Bravo Arce MR#: [id number] : 1940 Acct:[id number] Age/Sex: 84 / M ADM Date: 11/10/24 Loc: Room: 5V4205-4 Type: ADM IN Attending Dr: Rahul Barboza MD Copies to: DO Rahul Andersen MD Ordering Provider: Godwin Gordillo DO Date of [...] Torres Navarro M.D.11/12/2024 5:17 PM Dictation Location: [facility]--20 Transcribed By: [facility] 11/12/241716 Dictated By: Torres Navarro DO 11/12/241715 Signed By: 11/12/241716 Normal [facility] Complete Blood Count Auto Di ffon 11-11-2024 Basophils (Bld) [#/Vol] 0.0 10*3/uL Normal 0.0-0.2 [facility] Comment on above: Result Comment: PERF ORMED BY: [place] [address] PATHOLOGIST [employer] JESSI ARAMBULA M.D. Performed By: #### B MP, CBC #### [address] Basophils/100 WBC (Bld) 0.5 % Normal . [facility] Comment on above: Performed By: #### B MP, CBC #### [address] Eosinophils (Bld) [#/Vol] 0.1 10*3/uL Normal 0.0-0.45 [facility] Comment on above: Performed By: #### B MP, CBC #### [place] [address] Eosinophils/100 WBC (Bld) 2.3 % Normal . [facility] Comment on above: Performed By: #### B MP, CBC #### [address] Erythrocyte distribution width (RBC) [Ratio] 16.3 % High 12.0-14.8 [facility] Comment on above: Performed By: #### B MP, CBC #### [address] Hematocrit (Bld) [Volume fraction] 36.0 % Low 38.8-50.0 [facility] Comment on above: Performed By: #### B MP, CBC #### [address] Hemoglobin (Bld) [Mass/Vol] 12.2 g/dL Low 13.0-17.0 [facility] Comment on above: Performed By: #### B MP, CBC #### [address] Lymphocytes (Bld) [#/Vol] 1.0 10*3/uL Normal 1.00-4.8 [facility] Comment on above: Performed By: #### B MP, CBC #### [address] Lymphocytes/100 WBC (Bld) 16.7 % Normal . [facility] Comment on above: Performed By: #### B MP, CBC #### [address] MCH (RBC) [Entitic mass] 31.3 pg Normal 27.5-35.2 [facility] Comment on above: Performed By: #### B MP, CBC #### [address] MCV (RBC) [Entitic vol] 92.7 fL Normal 83.5-101 [facility] Comment on above: Performed By: #### B MP, CBC #### [address] Mean Corpuscular HGB Conc 33.7 g/dL Normal 32.5-35.6 [facility] Comment on above: Performed By: #### B MP, CBC #### [address] Monocytes (Bld) [#/Vol] 0.8 10*3/uL Normal 0.0-0.8 [facility] Comment on above: Performed By: #### B MP, CBC #### [address] Monocytes/100 WBC (Bld) 12.8 % Normal . [facility] Comment on above: Performed By: #### B MP, CBC #### [address] Neutrophils (Bld) [#/Vol] 4.2 10*3/uL Normal 1.8-7.7 [facility] Comment on above: Performed By: #### B MP, CBC #### [address] Neutrophils/100 WBC (Bld) 67.7 % Normal . [facility] Comment on above: Performed By: #### B MP, CBC #### [address] NRBC% 0.1 /100{WBC} Normal 0-0.5 [facility] Comment on above: Performed By: #### B MP, CBC #### [address] Platelet mean volume (Bld) [Entitic vol] 8.8 fL Normal 6.6-10.1 [facility] Comment on above: Performed By: #### B MP, CBC #### [place] [address] [place] Platelets (Bld) [#/Vol] 220 10*3/uL Normal 150-450 [facility] Comment on above: Performed By: #### B MP, CBC #### [address] RBC (Bld) [#/Vol] 3.88 10*6/uL Low 3.90-5.[address] [facility] Comment on above: Performed By: #### B MP, CBC #### [address] WBC (Bld) [#/Vol] 6.2 10*3/uL Normal 4.1-10.5 [facility] Comment on above: Performed By: #### B MP, CBC #### [address] Comprehensive Metabolic Pane narayan 11-11-2024 Albumin [Mass/Vol] 3.0 g/dL Low 3.5-5.7 [facility] Comment on above: Performed By: #### B MP, CBC #### [address] Albumin/Globulin [Mass ratio] 0.9 {ratio} Normal [facility] Comment on above: Performed By: #### B MP, CBC #### [address] ALP [Catalytic activity/Vol] 83 U/L Normal 34-104 [facility] Comment on above: Performed By: #### B MP, CBC #### [address] ALT [Catalytic activity/Vol] 31 U/L Normal 7-52 [facility] Comment on above: Performed By: #### B MP, CBC #### [address] Anion gap [Moles/Vol] 10.7 mmol/L Normal 6.0-15.0 [facility] Comment on above: Performed By: #### B MP, CBC #### [address] AST [Catalytic activity/Vol] 32 U/L Normal 13-39 [facility] Comment on above: Performed By: #### B MP, CBC #### [address] Bilirubin [Mass/Vol] 1.0 mg/dL Normal 0.3-1.0 [facility] Comment on above: Performed By: #### B MP, CBC #### [facility] [address] Calcium [Mass/Vol] 8.9 mg/dL Normal 8.6-10.3 [facility] Comment on above: Performed By: #### B MP, CBC #### [facility] [address] [place] [address] [place] Chloride [Moles/Vol] 102 mmol/L Normal 98-107 [facility] Comment on above: Performed By: #### B MP, CBC #### [facility] [address] [place] [address] [place] CO2 [Moles/Vol] 29.2 mmol/L Normal 21.0-31.0 [facility] Comment on above: Performed By: #### B MP, CBC #### [facility] [address] [place] [address] [place] Creatinine [Mass/Vol] 0.65 mg/dL Low 0.70-1.30 [facility] Comment on above: Performed By: #### B MP, CBC #### [facility] [address] [place] [address] [place] Creatinine Clr Calc Pharmacy 61.42 Normal [facility] Comment on above: Performed By: #### B MP, CBC #### [facility] [address] [place] [address] [place] GFR/1.73 sq M.predicted MDRD (S/P/Bld) [Vol rate/Area] mL/min/{1.73_m2} Normal [facility] Comment on above: Performed By: #### B MP, CBC #### [facility] [address] [place] [address] [place] Globulin (S) [Mass/Vol] 3.3 g/dL Normal [facility] Comment on above: Performed By: #### B MP, CBC #### [facility] [address] [place] [address] [place] Glucose [Mass/Vol] 93 mg/dL Normal 70-100 [facility] Comment on above: Result Comment: [place] om Glucose Reference Range is dependent on time and content of last meal. Glucose of more than 200 mg/dL in a nonstressed, ambulatory subject supports the diagnosis of Diabetes Mellitus. ADA recommended reference range Performed By: #### B MP, CBC #### [address] Potassium [Moles/Vol] 4.9 mmol/L Normal 3.5-5.1 [facility] Comment on above: Performed By: #### B MP, CBC #### [address] Protein [Mass/Vol] 6.3 g/dL Low 6.4-8.9 [facility] Comment on above: Performed By: #### B MP, CBC #### [address] Sodium [Moles/Vol] 137 mmol/L Normal 136-145 [facility] Comment on above: Performed By: #### B MP, CBC #### [address] Urea nitrogen [Mass/Vol] 23 mg/dL Normal 7-25 [facility] Comment on above: Performed By: #### B MP, CBC #### [address] Magnesiumon 11-11-2024 Magnesium [Mass/Vol] 1.8 mg/dL Low 1.9-2.7 [facility] Comment on above: Result Comment: PERF ORMED BY: [place] [address] PATHOLOGIST [employer] JESSI ARAMBULA M.D. Performed By: #### B MP, CBC #### [address] Appearance of UrineOrdered B y: [place] on 11-10-2024 Appearance (U) Urine appearance Clear [facility] Basic Metabolic Panelon 02- Anion gap [Moles/Vol] 10.0 mmol/L Normal 6.0-15.0 [facility] e [facility] Comment on above: Performed By: #### G LULS #### Point of Care testing , Calcium [Mass/Vol] 8.5 mg/dL Low 8.6-10.3 [facility] Comment on above: Performed By: #### G LULS #### Point of Care testing , Chloride [Moles/Vol] 101 mmol/L Normal 98-107 [facility] Comment on above: Performed By: #### G LULS #### Point of Care testing , CO2 [Moles/Vol] 29.9 mmol/L Normal 21.0-31.0 [facility] Comment on above: Performed By: #### G LULS #### Point of Care testing , Creatinine [Mass/Vol] 0.61 mg/dL Low 0.70-1.30 [facility] Comment on above: Performed By: #### G LULS #### Point of Care testing , Creatinine Clr Calc Pharmacy 67.87 Normal [facility] Comment on above: Result Comment: PERF ORMED BY: [facility] [address] [place] [address] PATHOLOGIST [employer] JESSI ARAMBULA M.D. Performed By: #### G LULS #### Point of Care testing , GFR/1.73 sq M.predicted MDRD (S/P/Bld) [Vol rate/Area] mL/min/{1.73_m2} Normal [facility] Comment on above: Performed By: #### G LULS #### Point of Care testing , Glucose [Mass/Vol] 100 mg/dL Normal 70-100 [facility] Comment on above: Result Comment: [place] om Glucose Reference Range is dependent on time and content of last meal. Glucose of more than 200 mg/dL in a nonstressed, ambulatory subject supports the diagnosis of Diabetes Mellitus. ADA recommended reference range Performed By: #### G LULS #### Point of Care testing , Potassium [Moles/Vol] 4.9 mmol/L Normal 3.5-5.1 [facility] Comment on above: Performed By: #### G LULS #### Point of Care testing , Sodium [Moles/Vol] 136 mmol/L Normal 136-145 [facility] Comment on above: Performed By: #### G MELISSA #### Point of Care testing , Urea nitrogen [Mass/Vol] 24 mg/dL Normal 7-25 [facility] Comment on above: Performed By: #### G MELISSA #### Point of Care testing , Basophils Auto (Bld) [#/Vol] Ordered By: Monty Rubio on 11-10-2024 Basophils (Bld) [#/Vol] Automated basophil count 0.0-0.2 [facility] Basophils/100 WBC Auto (Bld) Ordered By: Monty Rubio on 11-10-2024 Basophils/100 WBC (Bld) Automated basophil % . [facility] Bilirubin Test strip Ql (U)O rdered By: Orestes Guthrie on 11-10-2024 Bilirubin Ql (U) Bilirubin.total [Presence] in Urine by Test strip Negative [facility] Calcium [Mass/volume] in Ser um or PlasmaOrdered By: Monty Rubio on 11-10-2024 Calcium [Mass/Vol] Calcium [Mass/volume ] in Serum or Plasma Low 8.6-10.3 [facility] Carbon dioxide, total [Moles /volume] in Serum or PlasmaOrdered By: Monty Rubio on 11-10-2024 CO2 [Moles/Vol] Carbon dioxide, tota l [Moles/volume] in Serum or Plasma 21.0-31.0 [facility] Chloride [Moles/volume] in S braeden or PlasmaOrdered By: Monty Rubio on 11-10-2024 Chloride [Moles/Vol] Chloride [Moles/vol ume] in Serum or Plasma 98-107 [facility] Color Auto (U)Ordered By: Jone Guthrie on 11-10-2024 Color (U) Color of Urine by Auto Yellow [facility] Complete Blood Count Auto Di ffon 11-10-2024 Basophils (Bld) [#/Vol] 0.0 10*3/uL Normal 0.0-0.2 [facility] Comment on above: Result Comment: PERF ORMED BY: [facility] [place] [address] PATHOLOGIST [employer] JESSI ARAMBULA M.D. Performed By: #### G LULS #### Point of Care testing , Basophils/100 WBC (Bld) 0.2 % Normal . [facility] Group Comment on above: Performed By: #### G LULS #### Point of Care testing , Eosinophils (Bld) [#/Vol] 0.2 10*3/uL Normal 0.0-0.45 [facility] Comment on above: Performed By: #### G LULS #### Point of Care testing , Eosinophils/100 WBC (Bld) 2.4 % Normal . [facility] Comment on above: Performed By: #### G LULS #### Point of Care testing , Erythrocyte distribution width (RBC) [Ratio] 16.2 % High 12.0-14.8 [facility] Comment on above: Performed By: #### G LULS #### Point of Care testing , Hematocrit (Bld) [Volume fraction] 36.9 % Low 38.8-50.0 [facility] Comment on above: Performed By: #### G LULS #### Point of Care testing , Hemoglobin (Bld) [Mass/Vol] 12.3 g/dL Low 13.0-17.0 [facility] Comment on above: Performed By: #### G LULS #### Point of Care testing , Lymphocytes (Bld) [#/Vol] 1.1 10*3/uL Normal 1.00-4.8 [facility] Comment on above: Performed By: #### G LULS #### Point of Care testing , Lymphocytes/100 WBC (Bld) 15.6 % Normal . [facility] Comment on above: Performed By: #### G LULS #### Point of Care testing , MCH (RBC) [Entitic mass] 31.0 pg Normal 27.5-35.2 [facility] Comment on above: Performed By: #### G LULS #### Point of Care testing , MCV (RBC) [Entitic vol] 93.3 fL Normal 83.5-101 [facility] Comment on above: Performed By: #### G LULS #### Point of Care testing , Mean Corpuscular HGB Conc 33.2 g/dL Normal 32.5-35.6 [facility] Comment on above: Performed By: #### G LULS #### Point of Care testing , Monocytes (Bld) [#/Vol] 0.8 10*3/uL Normal 0.0-0.8 [facility] Comment on above: Performed By: #### G LULS #### Point of Care testing , Monocytes/100 WBC (Bld) 20.62 % High 0.00-20.00 [facility] Comment on above: Result Comment: For adults in ED, MDW > 20.0 may be associated with a higher risk of sepsis during the first 12 hrs of hospital admission Performed By: #### G LULS #### Point of Care testing , Monocytes/100 WBC (Bld) 10.5 % Normal . [facility] Comment on above: Performed By: #### G LULS #### Point of Care testing , Neutrophils (Bld) [#/Vol] 5.1 10*3/uL Normal 1.8-7.7 [facility] Comment on above: Performed By: #### G LULS #### Point of Care testing , Neutrophils/100 WBC (Bld) 71.3 % Normal . [facility] Comment on above: Performed By: #### G LULS #### Point of Care testing , NRBC% 0.1 /100{WBC} Normal 0-0.5 [facility] Comment on above: Performed By: #### G LULS #### Point of Care testing , Platelet mean volume (Bld) [Entitic vol] 8.4 fL Normal 6.6-10.1 [facility] Comment on above: Performed By: #### G LULS #### Point of Care testing , Platelets (Bld) [#/Vol] 244 10*3/uL Normal 150-450 [facility] Comment on above: Performed By: #### G LULS #### Point of Care testing , RBC (Bld) [#/Vol] 3.96 10*6/uL Normal 3.90-5.[address] [facility] Comment on above: Performed By: #### G LULS #### Point of Care testing , WBC (Bld) [#/Vol] 7.2 10*3/uL Normal 4.1-10.5 [facility] Comment on above: Performed By: #### G LULS #### Point of Care testing , Creatinine [Mass/volume] in Serum or PlasmaOrdered By: Monty Rubio on 11-10-2024 Creatinine [Mass/Vol] Creatinine [Mass/v olume] in Serum or Plasma Low 0.70-1.30 [facility] ECG 12 lead ECGon 11-10-2024 ECG 12 lead ECG [facility] [place] [address] Electrocardiograph Report Signed Patient: Bravo Arce MR#: [id number] : 1940 Acct:[id number] Age/Sex: 84 / M ADM Date: 11/10/24 Loc: Room: [address] [place] [address] Type: ADM IN Attending Dr: Orestes Guthrie MD Ordering Provider: Monty Rubio DO Date of Service: 11/10/24 ECG/ECG 12 lead ECG: Extremity Injury, Lower Copies to: Test Reason : Blood Pressure : 137/71 mmHG Vent. Rate : 104 BPM Atrial Rate : 110 BPM P-R Int : * ms QRS Dur : 134 ms QT Int : 370 ms P-R-T Axes : * -49 33 degrees QTcB Int : 486 ms Atrial fibrillation with rapid ventricular response Right bundle branch block Left anterior fascicular block Bifascicular block Abnormal ECG No previous ECGs available Confirmed by IRINEO RODRIGUEZ MD ([id number]) on 11/11/2024 6:44:19 AM Referred By: Electronically Signed By: IRINEO RODRIGUEZ MD Transcribed By: MUS Signed By Irineo Rodriguez MD 11/11/24 0644 Normal [facility] Eosinophils Auto (Bld) [#/Vo l]Ordered By: Monty Rubio on 11-10-2024 Eosinophils (Bld) [#/Vol] Automated eosinophil count 0.0-0.45 [facility] Eosinophils/100 WBC Auto (Bl d)Ordered By: Monty Rubio on 11-10-2024 Eosinophils/100 WBC (Bld) Automated eosinophil % . [facility] Erythrocyte distribution wid th Auto (RBC) [Ratio]Ordered By: Monty Rubio on 11-10-2024 Erythrocyte distribution width (RBC) [Ratio] Erythrocyte distribution width [Ratio] by Automated count High 12.0-14.8 [facility] Glucose [Mass/volume] in Ser um or PlasmaOrdered By: Monty Rubio on 11-10-2024 Glucose [Mass/Vol] Glucose [Mass/volume ] in Serum or Plasma 70-100 [facility] Comment on above: ADA recommended refe rence rangeRandom Glucose Reference Range is dependent on time and content of last meal. Glucose of more than 200 mg/dL in a nonstressed, ambulatory subject supports the diagnosis of Diabetes Mellitus. Glucose [Mass/volume] in Uri ne by Test stripOrdered By: Orestes Guthrie on 11-10-2024 Glucose Test strip (U) [Mass/Vol] Glucose [Mass/volume] in Urine by Test strip Normal [facility] Hematocrit Auto (Bld) [Volum e fraction]Ordered By: Monty Rubio on 11-10-2024 Hematocrit (Bld) [Volume fraction] Hematocrit [Volume Fraction] of Blood by Automated count Low 38.8-50.0 [facility] Hemoglobin Test strip Ql (U) Ordered By: Orestes Guthrie on 11-10-2024 Hemoglobin Ql (U) Hemoglobin [Presence ] in Urine by Test strip Negative [facility] Hemoglobin [Mass/volume] in BloodOrdered By: Monty Rubio on 11-10-2024 Hemoglobin (Bld) [Mass/Vol] Hemoglobin [Mass/volume] in Blood Low 13.0-17.0 [facility] INR in Platelet poor plasma by Coagulation assayOrdered By: Orestes Guthrie on 11-10-2024 INR Coag (PPP) [Relative time] INR in Platelet poor plasma by Coagulation assay [facility] Comment on above: INR Therapeutic Rang e A) Pre- and Peroperative OAT started two weeks before surgery. NOT HIP SURGERY: 1.5 - 2.5 HIP SURGERY: 2 - 3B) Primary and secondary prevention of venous THROMBOSIS: 2 - 3C) Active venous thrombosis, pulmonary embolismand prevention of recurrent venous thrombosis: 2 - 3D) Prevention of arterial thromboembolismincluding patients with mechanical heart valves: 3 - 4.5 Ketones Test strip Ql (U)Ord ered By: Orestes Guthrie on 11-10-2024 Ketones Ql (U) Ketones [Presence] i n Urine by Test strip Negative [facility] Leukocyte esterase [Presence ] in Urine by Test stripOrdered By: Orestes Guthrie on 11-10-2024 Leukocyte esterase Test strip Ql (U) Leukocyte esterase [Presence] in Urine by Test strip Negative [facility] Leukocytes [#/volume] correc bryant for nucleated erythrocytes in Blood by Automated counOrdered By: Monty Rubio on 11-10-2024 WBC corrected for nucl RBC Auto (Bld) [#/Vol] Leukocytes [#/volume] corrected for nucleated erythrocytes in Blood by Automated coun 4.1-10.5 [facility] Lymphocytes Auto (Bld) [#/Vo l]Ordered By: Monty Rubio on 11-10-2024 Lymphocytes (Bld) [#/Vol] Lymphocytes [#/volume] in Blood by Automated count 1.00-4.8 [facility] Lymphocytes/100 WBC Auto (Bl d)Ordered By: Monty Rubio on 11-10-2024 Lymphocytes/100 WBC (Bld) Lymphocytes/100 leukocytes in Blood by Automated count . [facility] MCH Auto (RBC) [Entitic mass ]Ordered By: Monty Rubio on 11-10-2024 MCH (RBC) [Entitic mass] MCH [Entitic mass] by Automated count 27.5-35.2 [facility] MCHC Auto (RBC) [Mass/Vol]Or dered By: Monty Rubio on 11-10-2024 MCHC (RBC) [Mass/Vol] MCHC [Mass/volume] by Automated count 32.5-35.6 [facility] MCV Auto (RBC) [Entitic vol] Ordered By: Monty Rubio on 11-10-2024 MCV (RBC) [Entitic vol] MCV [Entitic volume] by Automated count 83.5-101 [facility] Monocyte distribution width [Entitic volume] in Blood by AutomatedOrdered By: Monty Rubio on 11-10-2024 Monocyte distribution width Auto (Bld) [Entitic vol] Monocyte distribution width [Entitic volume] in Blood by Automated High 0.00-20.00 [facility] Comment on above: For adults in ED, MD W > 20.0 may be associated with a higher risk of sepsis during the first 12 hrs of hospital admission Monocytes Auto (Bld) [#/Vol] Ordered By: Monty Rubio on 11-10-2024 Monocytes (Bld) [#/Vol] Automated blood monocyte count 0.0-0.8 [facility] Monocytes/100 WBC Auto (Bld) Ordered By: Monty Rubio on 11-10-2024 Monocytes/100 WBC (Bld) Automated monocyte % . [facility] Neutrophils Auto (Bld) [#/Vo l]Ordered By: Monty Rubio on 11-10-2024 Neutrophils (Bld) [#/Vol] Neutrophils [#/volume] in Blood by Automated count 1.8-7.7 [facility] Neutrophils/100 WBC Auto (Bl d)Ordered By: Monty Rubio on 11-10-2024 Neutrophils/100 WBC (Bld) Automated neutrophil % . [facility] Nitrite Test strip Ql (U)Ord ered By: Orestes Guthrie on 11-10-2024 Nitrite Ql (U) Nitrite [Presence] i n Urine by Test strip Negative [facility] No Panel InformationOrdered By: Monty Rubio on 11-10-2024 Estimated GFR (CKD-EPI) > 60.0 mL/Min [facility] Creatinine Clearance (Chem 67.87 [facility] Nucleated erythrocytes [Pres ence] in Blood by Automated countOrdered By: Monty Rubio on 11-10-2024 Nucleated RBC Auto Ql (Bld) Nucleated erythrocytes [Presence] in Blood by Automated count 0-0.5 [facility] Partial Thromboplastin Timeo n 11-10-2024 aPTT Coag (Bld) [Time] 28.5 s Normal 25.1-36.5 [facility] Comment on above: Result Comment: A he matocrit value greater than 55% may lead to inaccurate results in coagulation testing. Patients having hematocrit values >55% require a special collection tube for coagulation studies. Please contact the laboratory at [phone] for redraw instructions. PERFORMED BY: [facility] [address] [place] [address] PATHOLOGIST [employer] JSESI ARAMBULA M.D. Performed By: #### G LULS #### Point of Care testing , Platelet mean volume Auto (B ld) [Entitic vol]Ordered By: Monty Rubio on 11-10-2024 Platelet mean volume (Bld) [Entitic vol] Platelet mean volume [Entitic volume] in Blood by Automated count 6.6-10.1 [facility] Platelets Auto (Bld) [#/Vol] Ordered By: Monty Rubio on 11-10-2024 Platelets (Bld) [#/Vol] Platelets [#/volume] in Blood by Automated count 150-450 [facility] Potassium [Moles/volume] in Serum or PlasmaOrdered By: Monty Rubio on 11-10-2024 Potassium [Moles/Vol] Potassium [Moles/v olume] in Serum or Plasma 3.5-5.1 [facility] Protein Test strip (U) [Mass /Vol]Ordered By: Orestes Guthrie on 11-10-2024 Protein (U) [Mass/Vol] Protein [Mass/vol ume] in Urine by Test strip Negative [facility] Prothrombin Time INRon 11-10 INR Coag (PPP) [Relative time] 1.0 {INR} Normal [facility] Comment on above: Result Comment: INR Therapeutic Range A) Pre- and Peroperative OAT started two weeks before surgery. NOT HIP SURGERY: 1.5 - 2.5 HIP SURGERY: 2 - 3 B) Primary and secondary prevention of venous THROMBOSIS: 2 - 3 C) Active venous thrombosis, pulmonary embolism and prevention of recurrent venous thrombosis: 2 - 3 D) Prevention of arterial thromboembolism including patients with mechanical heart valves: 3 - 4.5 Performed By: #### G LULS #### Point of Care testing , PT Coag (PPP) [Time] 11.7 s Normal 9.0-12.9 [facility] Comment on above: Result Comment: A he matocrit value greater than 55% may lead to inaccurate results in coagulation testing. Patients having hematocrit values >55% require a special collection tube for coagulation studies. Please contact the laboratory at [phone] for redraw instructions. Performed By: #### G LULS #### Point of Care testing , Prothrombin time (PT)Ordered By: Orestes Guthrie on 11-10-2024 PT Coag (PPP) [Time] Prothrombin time (PT) 9.0- 12.9 [facility] Comment on above: A hematocrit value g reater than 55% may lead to inaccurate results in coagulation testing. Patients having hematocrit values >55% require a special collection tube for coagulation studies. Please contact the laboratory at [phone] for redraw instructions. RBC Auto (Bld) [#/Vol]Ordere d By: Monty Rubio on 11-10-2024 RBC (Bld) [#/Vol] Erythrocytes [#/volu me] in Blood by Automated count 3.90-5.60 [facility] Serum or plasma anion gap de terminationOrdered By: Monty Rubio on 11-10-2024 Anion gap [Moles/Vol] Serum or plasma an ion gap determination 6.0-15.0 [facility] Sodium [Moles/volume] in Ser um or PlasmaOrdered By: Monty Rubio on 11-10-2024 Sodium [Moles/Vol] Sodium [Moles/volume ] in Serum or Plasma 136-145 [facility] Specific gravity Test strip (U) [Rel density]Ordered By: Orestes Guthrie on 11-10-2024 Specific gravity (U) [Rel density] Specific gravity of Urine by Test strip 1.001-1.03 0 [facility] Urea nitrogen [Mass/volume] in Serum or PlasmaOrdered By: Monty Rubio on 11-10-2024 Urea nitrogen [Mass/Vol] Urea nitrogen [Mass/volume] in Serum or Plasma 04-19 [facility] Urinalysison 11-10-2024 Appearance (U) Clear Normal Clear [facility] Comment on above: Order Comment: Name Collection Type:: Voided Performed By: #### G LULS #### Point of Care testing , Bilirubin,Urine Negative Normal Negative [facility] Comment on above: Order Comment: Name Collection Type:: Voided Performed By: #### G LULS #### Point of Care testing , Color (U) Yellow Normal Yellow [facility] Comment on above: Order Comment: Name Collection Type:: Voided Performed By: #### G LULS #### Point of Care testing , Glucose Ql (U) Normal Normal Normal [facility] Comment on above: Order Comment: Name Collection Type:: Voided Performed By: #### G LULS #### Point of Care testing , Ketones Ql (U) Negative Normal Negative [facility] Comment on above: Order Comment: Name Collection Type:: Voided Performed By: #### G LULS #### Point of Care testing , Leukocyte esterase Test strip Ql (U) Negative Normal Negative [facility] Comment on above: Order Comment: Name Collection Type:: Voided Performed By: #### G LULS #### Point of Care testing , Nitrite,Urine Negative Normal Negative [facility] Comment on above: Order Comment: Name Collection Type:: Voided Performed By: #### G LULS #### Point of Care testing , Occult Blood,Urine Negative Normal Negative [facility] Comment on above: Order Comment: Name Collection Type:: Voided Result Comment: PERF ORMED BY: [facility] [address] [place] [address] PATHOLOGIST [employer] JESSI ARAMBULA M.D. Performed By: #### G LULS #### Point of Care testing , pH (U) 6.5 [pH] Normal 5.0-9.0 [facility] Comment on above: Order Comment: Name Collection Type:: Voided Performed By: #### G LULS #### Point of Care testing , Protein,Urine Negative Normal Negative [facility] Comment on above: Order Comment: Name Collection Type:: Voided Performed By: #### G LULS #### Point of Care testing , Specificy [place],Urine 1.023 Normal 1.001-1.03 0 [facility] Comment on above: Order Comment: Name Collection Type:: Voided Performed By: #### G LULS #### Point of Care testing , Urobilinogen,Urine 2 mg/dL High Normal [facility] Comment on above: Order Comment: Name Collection Type:: Voided Performed By: #### G LULS #### Point of Care testing , Urobilinogen Test strip (U) [Mass/Vol]Ordered By: Orestes Guthrie on 11-10-2024 Urobilinogen (U) [Mass/Vol] Urobilinogen [Mass/volume] in Urine by Test strip High Normal [facility] WBC Auto (Bld) [#/Vol]Ordere d By: Monty Rubio on 11-10-2024 WBC (Bld) [#/Vol] Leukocytes [#/volume ] in Blood by Automated count 4.1-10.5 [facility] X-ray reportOrdered By: Ja Navarro on 11-10-2024 Study report [facility] [place] [address] XRay Report Signed Patient: Bravo Arce MR#: [id number] : 1940 Acct:[id number] Age/Sex: 84 / M ADM Date: 5 Loc: ER Room: Type: [facility] ER Attending Dr: Copies to: Monty Rubio DO~ Ordering Provider: Monty Rubio DO Date of Service: 11/10/24 XR/XR pelvis 1-2V: Extremity Injury, Lower ([id number]) XR/XR femur LT 2V*: Extremity Injury, Lower ([id number]) XR/XR chest 1V: FEMUR FX Plain film chest Single view HISTORY: Fell 3 weeks ago. Diagnosis of left femur fracture today COMPARISON: None FINDINGS: SUPPORT DEVICES: Feeding tube in stomach. POSTSURGICAL CHANGES: CABG. Intact cardiac device. Cardiac valve replacement. Intact cardiac device. HEART: Cardiomegaly PULMONARY UNIQUE: Within normal limits MEDIASTINUM: Unremarkable LUNGS AND PLEURA: The right basilar parenchymal changes. LEFT basilar pleural-parenchymal changes. No pneumothorax. BONY STRUCTURES: Intact ADDITIONAL [...] Torres Navarro M.D.11/10/2024 6:39 PM Dictation Location: [facility]-Insurance [employer] Transcribed By: [facility] 11/10/241838 Dictated By: Torres Navarro DO 11/10/241834 Signed By: 11/10/241838 [facility] XR pelvis 1-2Von 11-10-2024 XR pelvis 1-2V [facility] [place] [address] [place] [address] XRay Report Signed Patient: Bravo Arce MR#: [id number] : 1940 Acct:[id number] Age/Sex: 84 / M ADM Date: 11/10/24 Loc: ER Room: Type: [facility] ER Attending Dr: Copies to: Monty Rubio DO Ordering Provider: Monty Rubio DO Date of Service: 11/10/24 XR/XR pelvis 1-2V: Extremity Injury, Lower ([id number]) XR/XR femur LT 2V*: Extremity Injury, Lower ([id number]) XR/XR chest 1V: FEMUR FX Plain film chest Single view HISTORY: Fell 3 weeks ago. Diagnosis of left femur fracture today COMPARISON: None FINDINGS: SUPPORT DEVICES: Feeding tube in stomach. POSTSURGICAL CHANGES: CABG. Intact cardiac device. Cardiac valve replacement. Intact cardiac device. HEART: Cardiomegaly PULMONARY UNIQUE: Within normal limits MEDIASTINUM: Unremarkable LUNGS AND PLEURA: The right basilar parenchymal changes. LEFT basilar pleural-parenchymal changes. No pneumothorax. BONY STRUCTURES: Intact ADDITIONAL [...] Torres Navarro M.D.11/10/2024 6:39 PM Dictation Location: [place] [address] Transcribed By: [facility] 11/10/241838 Dictated By: Torres Navarro DO 11/10/241834 Signed By: 11/10/241838 Normal [facility] aPTT in Platelet poor plasma by Coagulation assayOrdered By: Orestes Guthrie on 11-10-2024 aPTT Coag (PPP) [Time] Activated partial thromboplastin time (aPTT) in platelet poor plasma by coagulation a 25.1-36.5 [facility] Comment on above: A hematocrit value g reater than 55% may lead to inaccurate results in coagulation testing. Patients having hematocrit values >55% require a special collection tube for coagulation studies. Please contact the laboratory at [phone] for redraw instructions. pH Test strip (U)Ordered By: Orestes Guthrie on 11-10-2024 pH (U) pH of Urine by Test strip 5.0-9.0 [facility] Coding Queryon 11-05-2024 Coding Query Coding Query From: Elva GARZA, Herlinda To: GLENDY MAHONEY, Grace; Cc: Amarilys Ta; Sent: 10/29/2024 12:04:19 EST ! Subject: Coding Query Due Date/Time: 11/06/2024 12:04:00 EST Caller Name: TRE WILL; Caller Number: , [phone] Documentation in the medical record indicates this patient has been admitted with or diagnosed as having: Acute respiratory failure was documented on admission. The following is also documented in the medical record: Other: EMS 1004 RR 10, pulse 120, SPO2 85% ED physician-Because of the patient's GCS of 3 the decision was made to secure the airway and stabilize the patient. He was treated with 30 mg IV etomidate followed by 100 mg of IV rocuronium. We were able to pass the tube through the cords using 7.5 endotracheal tube as well as S4 blade with the glide scope. Patient did have good easy Color change and symmetric chest rise. Vital signs remained stable during this procedure. H&P-Patient was intubated because he presented unresponsive. RSI was performed and patient was intubated. ABG on assist-control, tidal volume 500, 100% FiO2, rate of 16 with a PEEP of 5 shows a pH of 7.272, pCO2 45.7, pO2 400 and a saturation of 99.2%. Patient is admitted to the medical service for further evaluation and treatment. 10/20 progress note-2. Acute respiratory failure (J96.00: Acute respiratory failure, unspecified whether with hypoxia or hypercapnia) Questionable etiology He was intubated to protect his airway because he was unresponsive in the ED Based on your medical judgment, can you further clarify the following? Respond back with all that apply: [___]Acute respiratory failure with hypoxia [___]Acute respiratory failure with hypercapnia [___]Acute respiratory failure unspecified whether with hypoxia or hypercapnia [___]Other (please specify): In responding to this request, please exercise your independent professional judgement. The fact that a question is asked does not imply that any particular answer is desired or expected. Thank you! Herlinda [phone] From: GLENDY MAHONEY, Grace To: Elva GARZA, Herlinda; Sent: 11/05/2024 14:10:37 EST Subject: RE: Coding Query Caller Name: BRAVO ARCE; Caller Number: [place] , M [phone] Acute respiratory failure with hypoxia and Hypercapnia- POA Normal [facility] Bacteria identified Cx Nom ( Bld)on 11-02-2024 Interpretation and review of laboratory results Normal [facility] Blood Cultureon 11-02-2024 Bacteria identified Cx Nom (Bld) No growth at 4 days - FINAL REPORT [facility] Blood type and Indirect anti body screen panel (Bld)on 11-01-2024 ABO group Nom (Bld) A [facility] Blood group antibody screen Ql Positive [facility] D Ag Ql (Bld) Positive [facility] ABO group Nom (Bld) A Normal [facility] Comment on above: Performed By: #### 3 4532-2 ####JAN Allen ([id number])[facility] ([facility])[id number] [place] [address] Blood group antibody screen Ql Positive Normal [facility] Comment on above: Performed By: #### 3 4532-2 ####JAN Allen ([id number])[facility] ([facility])[address] [place] [address] D Ag Ql (Bld) Positive Normal [facility] Comment on above: Performed By: #### 3 4532-2 ####JAN Allen ([id number])[facility] ([facility])[address] [place] [address] CBC panel Auto (Bld)on 10-31 Erythrocyte distribution width (RBC) [Ratio] 15.2 % High 11.5 - 14.5 % [facility] Hematocrit (Bld) [Volume fraction] 35.9 % Low 41.0 - 52.0 % [facility] Hemoglobin (Bld) [Mass/Vol] 11.7 g/dL Low 13.5 - 17.5 g/dL [facility] Interpretation and review of laboratory results Abnormal [facility] MCH (RBC) [Entitic mass] 30 pg 26.0 - 34.0 pg [facility] MCHC (RBC) [Mass/Vol] 32.6 g/dL 32.0 - 36.0 g/dL [facility] MCV (RBC) [Entitic vol] 92 fL 80 - 100 fL [facility] Nucleated RBC/100 WBC (Bld) [Ratio] 0 % [facility] Platelets (Bld) [#/Vol] 271 10*3/uL [facility] RBC (Bld) [#/Vol] 3.9 10*6/uL Low [facility] WBC (Bld) [#/Vol] 9.9 10*3/uL [facility] Erythrocyte distribution width (RBC) [Ratio] 15.2 % High 11.5-14.5 [facility] Comment on above: Performed By: #### 5 8410-2 ####JAN Allen ([id number])[facility] ([facility])[address] [place] [address] Hematocrit (Bld) [Volume fraction] 35.9 % Low 41.0-52.0 [facility] Comment on above: Performed By: #### 5 8410-2 ####JAN Allen ([id number])[facility] ([facility])[address] [place] [address] Hemoglobin (Bld) [Mass/Vol] 11.7 g/dL Low 13.5-17.5 [facility] Comment on above: Performed By: #### 5 8410-2 ####JAN Allen ([id number])[facility] ([facility])[address] [place] [address] MCH (RBC) [Entitic mass] 30.0 pg Normal 26.0-34.0 [facility] Comment on above: Performed By: #### 5 8410-2 ####JAN Allen ([id number])[facility] ([facility])[address] [place] [address] MCHC (RBC) [Mass/Vol] 32.6 g/dL Normal 32.0-36.0 [facility] Comment on above: Performed By: #### 5 8410-2 ####JAN Allen ([id number])[facility] ([facility])[address] [place] [address] MCV (RBC) [Entitic vol] 92 fL Normal 80-100 [facility] Comment on above: Performed By: #### 5 8410-2 ####JAN Allen ([id number])[facility] ([facility])[address] [place] [address] Nucleated RBC/100 WBC (Bld) [Ratio] 0.0 /100 WBCs Normal 0.0-0.0 [facility] Comment on above: Performed By: #### 5 8410-2 ####JAN Allen ([id number])[facility] ([facility])[address] [place] [address] Platelets (Bld) [#/Vol] 271 x10*3/uL Normal 150-450 [facility] Comment on above: Performed By: #### 5 8410-2 ####JAN Allen ([id number])[facility] ([facility])[address] [place] [address] RBC (Bld) [#/Vol] 3.90 x10*6/uL Low 4.50-5.90 [facility] Comment on above: Performed By: #### 5 8410-2 ####JAN Allen ([id number])[facility] ([facility])[address] [place] [address] WBC (Bld) [#/Vol] 9.9 x10*3/uL Normal 4.4-11.3 [facility] Comment on above: Performed By: #### 5 8410-2 ####JAN Allen ([id number])[facility] ([facility])[address] [place] [address] Comprehensive metabolic 2000 panelon 10-31-2024 Albumin BCP dye [Mass/Vol] 2.5 g/dL Low 3.4 - 5.0 g/dL [facility] ALP [Catalytic activity/Vol] 54 U/L 33 - 136 U/L [facility] ALT With P-5'-P [Catalytic activity/Vol] 14 U/L 10 - 52 U/L [facility] Anion gap [Moles/Vol] 12 mmol/L 10 - 2 0 mmol/L [facility] AST With P-5'-P [Catalytic activity/Vol] 22 U/L 9 - 39 U/L [facility] Bilirubin [Mass/Vol] 0.7 mg/dL 0.0 - 1 .2 mg/dL [facility] Calcium [Mass/Vol] 7.9 mg/dL Low 8.6 - 10. 6 mg/dL [facility] Chloride [Moles/Vol] 106 mmol/L 98 - 10 7 mmol/L [facility] CO2 [Moles/Vol] 24 mmol/L 21 - 32 mmol/L [facility] Creatinine [Mass/Vol] 0.5 mg/dL 0.50 - 1.30 mg/dL [facility] eGFR - PINF [facility] Glucose [Mass/Vol] 117 mg/dL High 74 - 99 mg/dL [facility] Interpretation and review of laboratory results Abnormal [facility] Potassium [Moles/Vol] 4 mmol/L 3.5 - 5.3 mmol/L [facility] Protein [Mass/Vol] 5.5 g/dL Low 6.4 - 8.2 g/dL [facility] Sodium [Moles/Vol] 138 mmol/L 136 - 145 mmol/L [facility] Urea nitrogen [Mass/Vol] 14 mg/dL 6 - 23 mg/dL [facility] Albumin BCP dye [Mass/Vol] 2.5 g/dL Low 3.4-5.0 [facility] Comment on above: Performed By: #### 2 4323-8 ####JAN Allen ([id number])[facility] ([facility])[address] [place] [address] ALP [Catalytic activity/Vol] 54 U/L Normal 33-136 [facility] Comment on above: Performed By: #### 2 4323-8 ####JAN Allen ([id number])[facility] ([facility])[address] [place] [address] ALT With P-5'-P [Catalytic activity/Vol] 14 U/L Normal 10-52 [facility] Comment on above: Result Comment: Alejandra ents treated with Sulfasalazine may generate falsely decreased results for ALT. Performed By: #### 2 4323-8 ####JAN Allen ([id number])[facility] ([facility])[address] [place] [address] Anion gap [Moles/Vol] 12 mmol/L Normal 10-20 [facility] Comment on above: Performed By: #### 2 4323-8 ####JAN Allen ([id number])[facility] ([facility])[address] [place] [address] AST With P-5'-P [Catalytic activity/Vol] 22 U/L Normal 9-39 [facility] Comment on above: Performed By: #### 2 4323-8 ####JAN Allen ([id number])[facility] ([facility])[address] [place] [address] Bilirubin [Mass/Vol] 0.7 mg/dL Normal 0.0-1.2 [facility] Comment on above: Performed By: #### 2 4323-8 ####JAN Allen ([id number])[facility] ([facility])[address] [place] [address] Calcium [Mass/Vol] 7.9 mg/dL Low 8.6-10.6 [facility] Comment on above: Performed By: #### 2 4323-8 ####JAN Allen ([id number])[facility] ([facility])[address] [place] [address] Chloride [Moles/Vol] 106 mmol/L Normal 98-107 [facility] Comment on above: Performed By: #### 2 4323-8 ####JAN Allen ([id number])[facility] ([facility])[address] [place] [address] CO2 [Moles/Vol] 24 mmol/L Normal 21-32 [facility] Comment on above: Performed By: #### 2 4323-8 ####JAN Allen ([id number])[facility] ([facility])[address] [place] [address] Creatinine [Mass/Vol] 0.50 mg/dL Normal 0.50-1.30 [facility] Comment on above: Performed By: #### 2 4323-8 ####JAN FREIRE L ([id number])[facility] ([facility])[address] [place] [address] GFR/1.73 sq M.predicted MDRD (S/P/Bld) [Vol rate/Area] mL/min/{1.73_m2} Normal >60 [facility] Comment on above: Result Comment: Calc ulations of estimated GFR are performed using the 2020 CKD-EPI Study Refit equation without the race variable for the IDMS-Traceable creatinine methods. https://jasn.asnjournals.org/content//ASN.36436 52454 Performed By: #### 2 4323-8 ####JAN FREIRE L ([id number])[facility] ([facility])[address] [place] [address] Glucose [Mass/Vol] 117 mg/dL High 74-99 [facility] Comment on above: Performed By: #### 2 4323-8 ####JAN FREIRE L ([id number])[facility] ([facility])[address] [place] [address] Potassium [Moles/Vol] 4.0 mmol/L Normal 3.5-5.3 [facility] Comment on above: Performed By: #### 2 4323-8 ####JAN FREIRE L ([id number])[facility] ([facility])[address] [place] [address] Protein [Mass/Vol] 5.5 g/dL Low 6.4-8.2 [facility] Comment on above: Performed By: #### 2 4323-8 ####JAN FREIRE L ([id number])[facility] ([facility])[address] [place] [address] Sodium [Moles/Vol] 138 mmol/L Normal 136-145 [facility] Comment on above: Performed By: #### 2 4323-8 ####JAN Allen ([id number])[facility] ([facility])[address] [place] [address] Urea nitrogen [Mass/Vol] 14 mg/dL Normal 6-23 [facility] Comment on above: Performed By: #### 2 4323-8 ####JAN Allen ([id number])[facility] ([facility])[address] [place] [address] Glucose Test strip manual (B ld) [Mass/Vol]on 10-31-2024 Glucose [Mass/Vol] 118 mg/dL High 74 - 99 mg/dL [facility] Interpretation and review of laboratory results Abnormal [facility] Glucose [Mass/Vol] 118 mg/dL High 74-99 [facility] Comment on above: Performed By: #### 2 341-6 ####JAN Allen ([id number])[facility] ([facility])[address] [place] [address] Glucose [Mass/Vol] 116 mg/dL High 74 - 99 mg/dL [facility] Interpretation and review of laboratory results Abnormal [facility] Glucose [Mass/Vol] 116 mg/dL High 74-99 [facility] Comment on above: Performed By: #### 2 341-6 ####JAN Allen ([id number])[facility] ([facility])[address] [place] [address] Glucose [Mass/Vol] 127 mg/dL High 74 - 99 mg/dL [facility] Interpretation and review of laboratory results Abnormal [facility] Glucose [Mass/Vol] 127 mg/dL High 74-99 [facility] Comment on above: Performed By: #### 2 341-6 ####JAN Allen ([id number])[facility] ([facility])[address] [place] [address] Glucose [Mass/Vol] 108 mg/dL High 74 - 99 mg/dL [facility] Interpretation and review of laboratory results Abnormal [facility] Magnesiumon 10-31-2024 Magnesium [Mass/Vol] 1.72 mg/dL 1.60 - 2.40 mg/dL [facility] Magnesium [Mass/Vol] 1.72 mg/dL Normal 1.60-2.40 [facility] Comment on above: Performed By: #### 1 9123-9 ####JAN Allen ([id number])[facility] ([facility])[address] [place], [place] [id number] No Panel Informationon 10-31 [facility] Interpretation and review of laboratory results Normal [facility] Phosphateon 10-31-2024 Phosphate [Mass/Vol] 3.5 mg/dL Normal 2.5-4.9 [facility] Comment on above: Result Comment: The performance characteristics of phosphorus testing in heparinized plasma have been validated by the individual laboratory site where testing is performed. Testing on heparinized plasma is not approved by the FDA; however, such approval is not necessary. Performed By: #### 2 777-1 ####JAN Allen ([id number])[facility] ([facility])[address] [place] [address] Phosphoruson 10-31-2024 Phosphate [Mass/Vol] 3.5 mg/dL 2.5 - 4 .9 mg/dL [facility] BB ORDER ONLY - Antibody Marco ntificationon 10-30-2024 Blood group antibody investigation (P/RBC) [Interp] Anti-Little e [facility] Work Phone: CASE # BB [id number] [facility] Work Phone: [facility] Work Phone: Comprehensive metabolic 2000 panelon 10-30-2024 Albumin BCP dye [Mass/Vol] 2.5 g/dL Low 3.4 - 5.0 g/dL [facility] ALP [Catalytic activity/Vol] 48 U/L 33 - 136 U/L [facility] ALT With P-5'-P [Catalytic activity/Vol] 13 U/L 10 - 52 U/L [facility] Anion gap [Moles/Vol] 10 mmol/L 10 - 2 0 mmol/L [facility] AST With P-5'-P [Catalytic activity/Vol] 19 U/L 9 - 39 U/L [facility] Bilirubin [Mass/Vol] 0.7 mg/dL 0.0 - 1 .2 mg/dL [facility] Calcium [Mass/Vol] 7.9 mg/dL Low 8.6 - 10. 6 mg/dL [facility] Chloride [Moles/Vol] 108 mmol/L High 98 - 10 7 mmol/L [facility] CO2 [Moles/Vol] 24 mmol/L 21 - 32 mmol/L [facility] Creatinine [Mass/Vol] 0.5 mg/dL 0.50 - 1.30 mg/dL [facility] eGFR - PINF [facility] Glucose [Mass/Vol] 121 mg/dL High 74 - 99 mg/dL [facility] Interpretation and review of laboratory results Abnormal [facility] Potassium [Moles/Vol] 4.1 mmol/L 3.5 - 5.3 mmol/L [facility] Protein [Mass/Vol] 5.2 g/dL Low 6.4 - 8.2 g/dL [facility] Sodium [Moles/Vol] 138 mmol/L 136 - 145 mmol/L [facility] Urea nitrogen [Mass/Vol] 18 mg/dL 6 - 23 mg/dL [facility] Albumin BCP dye [Mass/Vol] 2.5 g/dL Low 3.4-5.0 [facility] Comment on above: Performed By: #### 2 4323-8 ####JAN Allen ([id number])[facility] ([facility])[address] [place] [address] ALP [Catalytic activity/Vol] 48 U/L Normal 33-136 [facility] Comment on above: Performed By: #### 2 4323-8 ####JAN Allen ([id number])[facility] ([facility])[address] [place] [address] ALT With P-5'-P [Catalytic activity/Vol] 13 U/L Normal 10-52 [facility] Comment on above: Result Comment: Alejandra ents treated with Sulfasalazine may generate falsely decreased results for ALT. Performed By: #### 2 4323-8 ####JAN Allen ([id number])[facility] ([facility])[address] [place] [address] Anion gap [Moles/Vol] 10 mmol/L Normal 10-20 [facility] Comment on above: Performed By: #### 2 4323-8 ####JAN Allen ([id number])[facility] ([facility])[address] [place] [address] AST With P-5'-P [Catalytic activity/Vol] 19 U/L Normal 9-39 [facility] Comment on above: Performed By: #### 2 4323-8 ####JAN Allen ([id number])[facility] ([facility])[address] [place] [address] Bilirubin [Mass/Vol] 0.7 mg/dL Normal 0.0-1.2 [facility] Comment on above: Performed By: #### 2 4323-8 ####JAN Allen ([id number])[facility] ([facility])[address] [place] [address] Calcium [Mass/Vol] 7.9 mg/dL Low 8.6-10.6 [facility] Comment on above: Performed By: #### 2 4323-8 ####JAN FREIRE L ([id number])[facility] ([facility])[address] [place] [address] Chloride [Moles/Vol] 108 mmol/L High 98-107 [facility] Comment on above: Performed By: #### 2 4323-8 ####JAN FREIRE L ([id number])[facility] ([facility])[address] [place] [address] CO2 [Moles/Vol] 24 mmol/L Normal 21-32 [facility] Comment on above: Performed By: #### 2 4323-8 ####JAN Allen ([id number])[facility] ([facility])[address] [place] [address] Creatinine [Mass/Vol] 0.50 mg/dL Normal 0.50-1.30 [facility] Comment on above: Performed By: #### 2 4323-8 ####JAN Allen ([id number])[facility] ([facility])[address] [place] [address] GFR/1.73 sq M.predicted MDRD (S/P/Bld) [Vol rate/Area] mL/min/{1.73_m2} Normal >60 [facility] Comment on above: Result Comment: Calc ulations of estimated GFR are performed using the 2020 CKD-EPI Study Refit equation without the race variable for the IDMS-Traceable creatinine methods. https://jasn.asnjournals.org/content/early/ASN.64013 91197 Performed By: #### 2 4323-8 ####JAN Allen ([id number])[facility] ([facility])[address] [place] [address] Glucose [Mass/Vol] 121 mg/dL High 74-99 [facility] Comment on above: Performed By: #### 2 4323-8 ####JAN Allen ([id number])[facility] ([facility])[address] [place] [address] Potassium [Moles/Vol] 4.1 mmol/L Normal 3.5-5.3 [facility] Comment on above: Performed By: #### 2 4323-8 ####JAN Allen ([id number])[facility] ([facility])[address] [place] [address] Protein [Mass/Vol] 5.2 g/dL Low 6.4-8.2 [facility] Comment on above: Performed By: #### 2 4323-8 ####JAN Allen ([id number])[facility] ([facility])[address] [place] [address] Sodium [Moles/Vol] 138 mmol/L Normal 136-145 [facility] Comment on above: Performed By: #### 2 4323-8 ####JAN Allen ([id number])[facility] ([facility])[address] [place] [address] Urea nitrogen [Mass/Vol] 18 mg/dL Normal 6-23 [facility] Comment on above: Performed By: #### 2 1293-8 ####JAN Allen ([id number])[facility] ([facility])[address] [place] [address] ECG 12 LeadOrdered By: Cornelio Baires on 10-30-2024 Atrial Rate 101 BPM [facility] Work Phone: P Offset 132 [facility] Work Phone: [phone] P Onset 112 [facility] Work Phone: [phone] Q Onset 193 ms [facility] Work Phone: [phone] QRS Count 20 beats [facility] Work Phone: [phone] QRS Duration 128 ms [facility] Work Phone: [phone] QT Interval 370 ms [facility] Work Phone: [phone] QTC Calculation(Bazett) 529 [facility] Work Phone: [phone] QTC Fredericia 469 [facility] Work Phone: R Bath -30 degrees [facility] Work Phone: T Bath -50 degrees [facility] Work Phone: [phone] T Offset 378 ms [facility] Work Phone: Ventricular Rate 123 BPM [facility] Work Phone: [facility] Work Phone: ECG 12 Leadon 10-30-2024 [facility] Work Phone: Glucose Test strip manual (B ld) [Mass/Vol]on 10-30-2024 Glucose [Mass/Vol] 108 mg/dL High 74-99 [facility] Comment on above: Performed By: #### 2 341-6 ####JAN Allen ([id number])[facility] ([facility])[address] [place] [address] Glucose [Mass/Vol] 112 mg/dL High 74 - 99 mg/dL [facility] Interpretation and review of laboratory results Abnormal [facility] Glucose [Mass/Vol] 112 mg/dL High 74-99 [facility] Comment on above: Performed By: #### 2 341-6 ####JAN Allen ([id number])[facility] ([facility])[address] [place] [address] Glucose [Mass/Vol] 97 mg/dL 74 - 99 mg/dL [facility] Interpretation and review of laboratory results Normal [facility] Glucose [Mass/Vol] 97 mg/dL Normal 74-99 [facility] Comment on above: Performed By: #### 2 341-6 ####JAN Allen ([id number])[facility] ([facility])[address] [place] [address] Glucose [Mass/Vol] 97 mg/dL 74 - 99 mg/dL [facility] Interpretation and review of laboratory results Normal [facility] Glucose [Mass/Vol] 97 mg/dL Normal 74-99 [facility] Comment on above: Performed By: #### 2 341-6 ####JAN Allen ([id number])[facility] ([facility])[address] [place] [address] Glucose [Mass/Vol] 114 mg/dL High 74 - 99 mg/dL [facility] Interpretation and review of laboratory results Abnormal [facility] Glucose [Mass/Vol] 114 mg/dL High 74-99 [facility] Comment on above: Performed By: #### 2 341-6 ####JAN Allen ([id number])[facility] ([facility])[address] [place] [address] Magnesiumon 10-30-2024 Magnesium [Mass/Vol] 1.69 mg/dL 1.60 - 2.40 mg/dL [facility] Magnesium [Mass/Vol] 1.69 mg/dL Normal 1.60-2.40 [facility] Comment on above: Performed By: #### 1 9123-9 ####JAN Allen ([id number])[facility] ([facility])[address] [place] [address] No Panel Informationon 10-30 Interpretation and review of laboratory results Normal [facility] Path Review-Immunohematology Ordered By: Maxwell Hernandez on 10-30-2024 PATH REV-IMMUNOHEMATOLOGY [facility] Work Phone: [facility] Work Phone: [facility] Work Phone: Phosphateon 10-30-2024 Phosphate [Mass/Vol] 3.1 mg/dL Normal 2.5-4.9 [facility] Comment on above: Result Comment: The performance characteristics of phosphorus testing in heparinized plasma have been validated by the individual laboratory site where testing is performed. Testing on heparinized plasma is not approved by the FDA; however, such approval is not necessary. Performed By: #### 2 777-1 ####JAN Allen ([id number])[facility] ([facility])[address] [place] [address] Phosphoruson 10-30-2024 Phosphate [Mass/Vol] 3.1 mg/dL 2.5 - 4 .9 mg/dL [facility] BB ORDER ONLY - ANTIBODY MARCO NTIFICATIONon 10-29-2024 Blood group antibody investigation (P/RBC) [Interp] Anti-Little e [facility] Comment on above: Performed By: #### A BID ####JAN Allen ([id number])[facility] ([facility])[address] [place] [address] CASE # BB [phone] [facility] Comment on above: Performed By: #### A BID ####JAN Allen ([id number])[facility] ([facility])[address] [place] [address] Bacteria identifiedon 2024 Bacteria identified Cx Nom (Bld) Test: Blood Culture Specimen Source: Peripheral Venipuncture Specimen Type: Blood culture Specimen Date: 10/29/2024 05 Result Date: 11/02/2024 120 Result Status: Final result Abnormal: No Resulting Lab: [facility] [address] [place] [address] CULTURE No growth at 4 days - FINAL REPORT [facility] Comment on above: Performed By: #### 2 341-6 #### JAN Allen ([id number]) [facility] ([facility]) [address] [place] [address] Blood type and Indirect anti body screen panel (Bld)on 10-29-2024 ABO group Nom (Bld) A [facility] Blood group antibody screen Ql Positive [facility] D Ag Ql (Bld) Positive [facility] ABO group Nom (Bld) A Normal [facility] Comment on above: Performed By: #### 3 4532-2 ####JAN Allen ([id number])[facility] ([facility])[address] [place] [address] Blood group antibody screen Ql Positive [facility] Comment on above: Performed By: #### 3 4532-2 ####JAN Allen ([id number])[facility] ([facility])[address] [place] [address] D Ag Ql (Bld) Positive Normal [facility] Comment on above: Performed By: #### 3 4532-2 ####JAN Allen ([id number])[facility] ([facility])[address] [place] [address] CBC W Auto Differential pane l (Bld)on 10-29-2024 Basophils (Bld) [#/Vol] 0.03 10*3/uL [facility] Basophils/100 WBC (Bld) 0.4 % 0.0 - 2.0 % [facility] Eosinophils (Bld) [#/Vol] 0.21 10*3/uL [facility] Eosinophils/100 WBC (Bld) 2.7 % 0.0 - 6.0 % [facility] Erythrocyte distribution width (RBC) [Ratio] 15.2 % High 11.5 - 14.5 % [facility] Hematocrit (Bld) [Volume fraction] 33 % Low 41.0 - 52.0 % [facility] Hemoglobin (Bld) [Mass/Vol] 10.7 g/dL Low 13.5 - 17.5 g/dL [facility] Immature granulocytes (Bld) [#/Vol] 0.06 10*3/uL [facility] Immature granulocytes/100 WBC (Bld) 0.8 % 0.0 - 0.9 % [facility] Interpretation and review of laboratory results Abnormal [facility] Lymphocytes (Bld) [#/Vol] 0.94 10*3/uL [facility] Lymphocytes/100 WBC (Bld) 12.3 % 13.0 - 44.0 % [facility] MCH (RBC) [Entitic mass] 30.7 pg 26.0 - 34.0 pg [facility] MCHC (RBC) [Mass/Vol] 32.4 g/dL 32.0 - 36.0 g/dL [facility] MCV (RBC) [Entitic vol] 95 fL 80 - 100 fL [facility] Monocytes (Bld) [#/Vol] 0.53 10*3/uL [facility] Monocytes/100 WBC (Bld) 6.9 % 2.0 - 10.0 % [facility] Neutrophils (Bld) [#/Vol] 5.88 10*3/uL High [facility] Neutrophils/100 WBC (Bld) 76.9 % 40.0 - 80.0 % [facility] Nucleated RBC/100 WBC (Bld) [Ratio] 0 % [facility] Platelets (Bld) [#/Vol] 218 10*3/uL [facility] RBC (Bld) [#/Vol] 3.49 10*6/uL Low [facility] WBC (Bld) [#/Vol] 7.7 10*3/uL [facility] Basophils (Bld) [#/Vol] 0.03 x10*3/uL Normal 0.00-0.10 [facility] Comment on above: Performed By: #### 2 341-6 #### JAN Allen ([id number]) [facility] ([facility]) [address] [place] [address] 50011 Basophils/100 WBC (Bld) 0.4 % Normal 0.0-2.0 [facility] Comment on above: Performed By: #### 2 341-6 #### JAN Allen ([id number]) [facility] ([facility]) [id number] [place] [address] 38028 Eosinophils (Bld) [#/Vol] 0.21 x10*3/uL Normal 0.00-0.40 [facility] Comment on above: Performed By: #### 2 341-6 #### JAN Allen ([id number]) [facility] ([facility]) [address] [place] [address] 10620 Eosinophils/100 WBC (Bld) 2.7 % Normal 0.0-6.0 [facility] Comment on above: Performed By: #### 2 341-6 #### JAN Allen ([id number]) [facility] ([facility]) [address] [place] [address] 97545 Erythrocyte distribution width (RBC) [Ratio] 15.2 % High 11.5-14.5 [facility] Comment on above: Performed By: #### 2 341-6 #### JAN Allen ([id number]) [facility] ([facility]) [address] [place] [address] 45093 Hematocrit (Bld) [Volume fraction] 33.0 % Low 41.0-52.0 [facility] Comment on above: Performed By: #### 2 341-6 #### JAN FREIRE L ([id number]) [facility] ([facility]) [address] [place] [address] 17528 Hemoglobin (Bld) [Mass/Vol] 10.7 g/dL Low 13.5-17.5 [facility] Comment on above: Performed By: #### 2 341-6 #### JAN FREIRE L ([id number]) [facility] ([facility]) [address] [place] [address] 13901 Immature granulocytes (Bld) [#/Vol] 0.06 x10*3/uL Normal 0.00-0.50 [facility] Comment on above: Performed By: #### 2 341-6 #### JAN Allen ([id number]) [facility] ([facility]) [address] [place] [address] 39941 Immature granulocytes/100 WBC (Bld) 0.8 % Normal 0.0-0.9 [facility] Comment on above: Result Comment: Iman ture Granulocyte Count (IG) includes promyelocytes, myelocytes and metamyelocytes but does not include bands. Percent differential counts (%) should be interpreted in the context of the absolute cell counts (cells/UL). Performed By: #### 2 341-6 #### JAN FREIRE L ([id number]) [facility] ([facility]) [address] [place] [address] 61955 Lymphocytes (Bld) [#/Vol] 0.94 x10*3/uL Normal 0.80-3.00 [facility] Comment on above: Performed By: #### 2 341-6 #### JAN FREIRE L ([id number]) [facility] ([facility]) [address] [place] [address] Lymphocytes/100 WBC (Bld) 12.3 % Normal 13.0-44.0 [facility] Comment on above: Performed By: #### 2 341-6 #### JAN Allen ([id number]) [facility] ([facility]) [address] [place] [address] MCH (RBC) [Entitic mass] 30.7 pg Normal 26.0-34.0 [facility] Comment on above: Performed By: #### 2 341-6 #### JAN Allen ([id number]) [facility] ([facility]) [address] [place] [address] 59312 MCHC (RBC) [Mass/Vol] 32.4 g/dL Normal 32.0-36.0 [facility] Comment on above: Performed By: #### 2 341-6 #### JAN Allen ([id number]) [facility] ([facility]) [address] [place] [address] 46891 MCV (RBC) [Entitic vol] 95 fL Normal 80-100 [facility] Comment on above: Performed By: #### 2 341-6 #### JAN Allen ([id number]) [facility] ([facility]) [address] [place] [address] 58343 Monocytes (Bld) [#/Vol] 0.53 x10*3/uL Normal 0.05-0.80 [facility] Comment on above: Performed By: #### 2 341-6 #### JAN Allen ([id number]) [facility] ([facility]) [address] [place] [address] 26256 Monocytes/100 WBC (Bld) 6.9 % Normal 2.0-10.0 [facility] Comment on above: Performed By: #### 2 341-6 #### JAN Aleln ([id number]) [facility] ([facility]) [address] [place] [address] 48755 Neutrophils (Bld) [#/Vol] 5.88 x10*3/uL High 1.60-5.50 [facility] Comment on above: Result Comment: Perc ent differential counts (%) should be interpreted in the context of the absolute cell counts (cells/uL). Performed By: #### 2 341-6 #### JAN Allen ([id number]) [facility] ([facility]) [address] [place] [address] Neutrophils/100 WBC (Bld) 76.9 % Normal 40.0-80.0 [facility] Comment on above: Performed By: #### 2 341-6 #### JAN Allen ([id number]) [facility] ([facility]) [address] [place] [address] 32647 Nucleated RBC/100 WBC (Bld) [Ratio] 0.0 /100 WBCs Normal 0.0-0.0 [facility] Comment on above: Performed By: #### 2 341-6 #### JAN Allen ([id number]) [facility] ([facility]) [address] [place] [address] Platelets (Bld) [#/Vol] 218 x10*3/uL Normal 150-450 [facility] Comment on above: Performed By: #### 2 341-6 #### JAN Allen ([id number]) [facility] ([facility]) [address] [place] [address] 99964 RBC (Bld) [#/Vol] 3.49 x10*6/uL Low 4.50-5.90 [facility] Comment on above: Performed By: #### 2 341-6 #### JAN FREIRE L ([id number]) [facility] ([facility]) [address] [place] [address] 86110 WBC (Bld) [#/Vol] 7.7 x10*3/uL Normal 4.4-11.3 [facility] Comment on above: Performed By: #### 2 341-6 #### JAN Allen ([id number]) [facility] ([facility]) [address] [place] [address] 83813 Cardiac device check - Inpat ientOrdered By: Nacho Mccain on 10-29-2024 [facility] Work Phone: Comprehensive metabolic 2000 panelon 10-29-2024 Albumin BCP dye [Mass/Vol] 2.3 g/dL Low 3.4 - 5.0 g/dL [facility] ALP [Catalytic activity/Vol] 44 U/L 33 - 136 U/L [facility] ALT With P-5'-P [Catalytic activity/Vol] 11 U/L 10 - 52 U/L [facility] Anion gap [Moles/Vol] 11 mmol/L 10 - 2 0 mmol/L [facility] AST With P-5'-P [Catalytic activity/Vol] 14 U/L 9 - 39 U/L [facility] Bilirubin [Mass/Vol] 0.8 mg/dL 0.0 - 1 .2 mg/dL [facility] Calcium [Mass/Vol] 7.7 mg/dL Low 8.6 - 10. 6 mg/dL [facility] Chloride [Moles/Vol] 112 mmol/L High 98 - 10 7 mmol/L [facility] CO2 [Moles/Vol] 27 mmol/L 21 - 32 mmol/L [facility] Creatinine [Mass/Vol] 0.47 mg/dL Low 0.50 - 1.30 mg/dL [facility] eGFR - PINF [facility] Glucose [Mass/Vol] 108 mg/dL High 74 - 99 mg/dL [facility] Interpretation and review of laboratory results Abnormal [facility] Potassium [Moles/Vol] 3.7 mmol/L 3.5 - 5.3 mmol/L [facility] Protein [Mass/Vol] 5 g/dL Low 6.4 - 8.2 g/dL [facility] Sodium [Moles/Vol] 146 mmol/L High 136 - 145 mmol/L [facility] Urea nitrogen [Mass/Vol] 19 mg/dL 6 - 23 mg/dL [facility] Albumin BCP dye [Mass/Vol] 2.3 g/dL Low 3.4-5.0 [facility] Comment on above: Performed By: #### 2 341-6 #### JAN [id number]) [facility] ([facility]) [address] [place] [address] ALP [Catalytic activity/Vol] 44 U/L Normal 33-136 [facility] Comment on above: Performed By: #### 2 341-6 #### JAN Allen ([id number]) [facility] ([facility]) [address] [place] [address] ALT With P-5'-P [Catalytic activity/Vol] 11 U/L Normal 10-52 [facility] Comment on above: Result Comment: Alejandra ents treated with Sulfasalazine may generate falsely decreased results for ALT. Performed By: #### 2 341-6 #### JAN Allen ([id number]) [facility] ([facility]) [address] [place] [address] Anion gap [Moles/Vol] 11 mmol/L Normal 10-20 [facility] Comment on above: Performed By: #### 2 341-6 #### JAN Allen ([id number]) [facility] ([facility]) [address] [place] [address] AST With P-5'-P [Catalytic activity/Vol] 14 U/L Normal 9-39 [facility] Comment on above: Performed By: #### 2 341-6 #### JAN Allen ([id number]) [facility] ([facility]) [address] [place] [address] Bilirubin [Mass/Vol] 0.8 mg/dL Normal 0.0-1.2 [facility] Comment on above: Performed By: #### 2 341-6 #### JAN Allen ([id number]) [facility] ([facility]) [address] [place] [address] 12525 Calcium [Mass/Vol] 7.7 mg/dL Low 8.6-10.6 [facility] Comment on above: Performed By: #### 2 341-6 #### JAN Allen ([id number]) [facility] ([facility]) [address] [place] [address] 59484 Chloride [Moles/Vol] 112 mmol/L High 98-107 [facility] Comment on above: Performed By: #### 2 341-6 #### JAN Allen ([id number]) [facility] ([facility]) [address] [place] [address] CO2 [Moles/Vol] 27 mmol/L Normal 21-32 [facility] Comment on above: Performed By: #### 2 341-6 #### JAN Allen ([id number]) [facility] ([facility]) [address] [place] [address] Creatinine [Mass/Vol] 0.47 mg/dL Low 0.50-1.30 [facility] Comment on above: Performed By: #### 2 341-6 #### JAN Allen ([id number]) [facility] ([facility]) [address] [place] [address] GFR/1.73 sq M.predicted MDRD (S/P/Bld) [Vol rate/Area] mL/min/{1.73_m2} Normal >60 [facility] Comment on above: Result Comment: Calc ulations of estimated GFR are performed using the 2020 CKD-EPI Study Refit equation without the race variable for the IDMS-Traceable creatinine methods. https://jasn.asnjournals.org/content//ASN.56790 37841 Performed By: #### 2 341-6 #### JAN Allen ([id number]) [facility] ([facility]) [address] [place] [address] Glucose [Mass/Vol] 108 mg/dL High 74-99 [facility] Comment on above: Performed By: #### 2 341-6 #### JAN Allen ([id number]) [facility] ([facility]) [address] [place] [address] Potassium [Moles/Vol] 3.7 mmol/L Normal 3.5-5.3 [facility] Comment on above: Performed By: #### 2 341-6 #### JAN Allen ([id number]) [facility] ([facility]) [address] [place] [address] 89642 Protein [Mass/Vol] 5.0 g/dL Low 6.4-8.2 [facility] Comment on above: Performed By: #### 2 341-6 #### JAN Allen ([id number]) [facility] ([facility]) [address] [place] [address] 18654 Sodium [Moles/Vol] 146 mmol/L High 136-145 [facility] Comment on above: Performed By: #### 2 341-6 #### JAN Allen ([id number]) [facility] ([facility]) [address] [place] [address] 43729 Urea nitrogen [Mass/Vol] 19 mg/dL Normal 6-23 [facility] Comment on above: Performed By: #### 2 341-6 #### JAN Allen ([id number]) [facility] ([facility]) [address] [place] [address] 43330 Glucose Test strip manual (B ld) [Mass/Vol]on 10-29-2024 Glucose [Mass/Vol] 103 mg/dL High 74 - 99 mg/dL [facility] Interpretation and review of laboratory results Abnormal [facility] Glucose [Mass/Vol] 103 mg/dL High 74-99 [facility] Comment on above: Performed By: #### 2 341-6 ####JAN Allen ([id number])[facility] ([facility])[id number] [place] [address]227 Magnesiumon 10-29-2024 Magnesium [Mass/Vol] 1.82 mg/dL 1.60 - 2.40 mg/dL [facility] Magnesium [Mass/Vol] 1.82 mg/dL Normal 1.60-2.40 [facility] Comment on above: Performed By: #### 2 341-6 #### JAN Allen ([id number]) [facility] ([facility]) [address] [place] [address] No Panel Informationon 10-29 Interpretation and review of laboratory results Normal [facility] PATH REVIEW-IMMUNOHEMATOLOGY on 10-29-2024 PATH [id number] SEE COMMENT Normal [facility] Comment on above: Order Comment: Revie wed and approved by MAXWELL HERNANDEZ on 10/30/24 at 3:26 PM. Result Comment: Anti body detection screen is positive. Antibody panel was performed. The autocontrol is negative. Previously identified alloantibody, anti-e (Little e) is reacting. Anti-C (Big C) and anti-K (Brunilda) cannot be ruled out. All other common clinically significant alloantibodies have been ruled out. Full crossmatched e (Little e)-antigen negative, C (Big C)-antigen negative and K -([place]) antigen negative donor RBC should be selected for transfusion for this patient. Performed By: #### P R30 ####JAN Allen ([id number])[facility] ([id number] [place] [address] 895[address] Phosphateon 10-29-2024 Phosphate [Mass/Vol] 2.7 mg/dL Normal 2.5-4.9 [facility] Comment on above: Result Comment: The performance characteristics of phosphorus testing in heparinized plasma have been validated by the individual laboratory site where testing is performed. Testing on heparinized plasma is not approved by the FDA; however, such approval is not necessary. Performed By: #### 2 341-6 #### JAN Allen ([id number]) [facility] ([facility]) [address] [place] [address] Phosphoruson 10-29-2024 Phosphate [Mass/Vol] 2.7 mg/dL 2.5 - 4 .9 mg/dL [facility] Bacteria identified Cx Nom ( Bld)on 10-28-2024 Interpretation and review of laboratory results Normal [facility] Bacteria identified Respirat ory culture Nom (Unsp spec)Ordered By: Rossy Rainey on 10-28-2024 Interpretation and review of laboratory results Abnormal [facility] Microscopic observation Gram stain Nom (Unsp spec) Gram stain indicates specimen consists of lower respiratory tract secretions. [facility] Microscopic observation Gram stain Nom (Unsp spec) No predominant organism [facility] Blood Cultureon 10-28-2024 Bacteria identified Cx Nom (Bld) No growth at 4 days - FINAL REPORT [facility] CBC W Auto Differential pane l (Bld)on 10-28-2024 Basophils (Bld) [#/Vol] 0.02 10*3/uL [facility] Basophils/100 WBC (Bld) 0.3 % 0.0 - 2.0 % [facility] Eosinophils (Bld) [#/Vol] 0.14 10*3/uL [facility] Eosinophils/100 WBC (Bld) 1.9 % 0.0 - 6.0 % [facility] Erythrocyte distribution width (RBC) [Ratio] 15.1 % High 11.5 - 14.5 % [facility] Hematocrit (Bld) [Volume fraction] 35.3 % Low 41.0 - 52.0 % [facility] Hemoglobin (Bld) [Mass/Vol] 11.5 g/dL Low 13.5 - 17.5 g/dL [facility] Immature granulocytes (Bld) [#/Vol] 0.06 10*3/uL [facility] Immature granulocytes/100 WBC (Bld) 0.8 % 0.0 - 0.9 % [facility] Interpretation and review of laboratory results Abnormal [facility] Lymphocytes (Bld) [#/Vol] 0.76 10*3/uL Low [facility] Lymphocytes/100 WBC (Bld) 10.4 % 13.0 - 44.0 % [facility] MCH (RBC) [Entitic mass] 30.3 pg 26.0 - 34.0 pg [facility] MCHC (RBC) [Mass/Vol] 32.6 g/dL 32.0 - 36.0 g/dL [facility] MCV (RBC) [Entitic vol] 93 fL 80 - 100 fL [facility] Monocytes (Bld) [#/Vol] 0.5 10*3/uL [facility] Monocytes/100 WBC (Bld) 6.8 % 2.0 - 10.0 % [facility] Neutrophils (Bld) [#/Vol] 5.83 10*3/uL High [facility] Neutrophils/100 WBC (Bld) 79.8 % 40.0 - 80.0 % [facility] Nucleated RBC/100 WBC (Bld) [Ratio] 0 % [facility] Platelets (Bld) [#/Vol] 219 10*3/uL [facility] RBC (Bld) [#/Vol] 3.8 10*6/uL Low [facility] WBC (Bld) [#/Vol] 7.3 10*3/uL [facility] Basophils (Bld) [#/Vol] 0.02 x10*3/uL Normal 0.00-0.10 [facility] Comment on above: Performed By: #### 2 341-6 #### JAN Allen ([id number]) [facility] ([facility]) [address] [place] [address] 63196 Basophils/100 WBC (Bld) 0.3 % Normal 0.0-2.0 [facility] Comment on above: Performed By: #### 2 341-6 #### JAN Allen ([id number]) [facility] ([facility]) [address] [place] [address] 67880 Eosinophils (Bld) [#/Vol] 0.14 x10*3/uL Normal 0.00-0.40 [facility] Comment on above: Performed By: #### 2 341-6 #### JAN Allen ([id number]) [facility] ([facility]) [address] [place] [address] Eosinophils/100 WBC (Bld) 1.9 % Normal 0.0-6.0 [facility] Comment on above: Performed By: #### 2 341-6 #### JAN Allen ([id number]) [facility] ([facility]) [address] [place] [address] Erythrocyte distribution width (RBC) [Ratio] 15.1 % High 11.5-14.5 [facility] Comment on above: Performed By: #### 2 341-6 #### JAN Allen ([id number]) [facility] ([facility]) [address] [place] [address] 49471 Hematocrit (Bld) [Volume fraction] 35.3 % Low 41.0-52.0 [facility] Comment on above: Performed By: #### 2 341-6 #### JAN Allen ([id number]) [facility] ([facility]) [address] [place] [address] 21194 Hemoglobin (Bld) [Mass/Vol] 11.5 g/dL Low 13.5-17.5 [facility] Comment on above: Performed By: #### 2 341-6 #### JAN Allen ([id number]) [facility] ([facility]) [address] [place] [address] 48585 Immature granulocytes (Bld) [#/Vol] 0.06 x10*3/uL Normal 0.00-0.50 [facility] Comment on above: Performed By: #### 2 341-6 #### JAN Allen ([id number]) [facility] ([facility]) [address] [place] [address] 26312 Immature granulocytes/100 WBC (Bld) 0.8 % Normal 0.0-0.9 [facility] Comment on above: Result Comment: Iman ture Granulocyte Count (IG) includes promyelocytes, myelocytes and metamyelocytes but does not include bands. Percent differential counts (%) should be interpreted in the context of the absolute cell counts (cells/UL). Performed By: #### 2 341-6 #### JAN Allen ([id number]) [facility] ([facility]) [address] [place] [address] 11714 Lymphocytes (Bld) [#/Vol] 0.76 x10*3/uL Low 0.80-3.00 [facility] Comment on above: Performed By: #### 2 341-6 #### JAN Allen ([id number]) [facility] ([facility]) [address] [place] [address] Lymphocytes/100 WBC (Bld) 10.4 % Normal 13.0-44.0 [facility] Comment on above: Performed By: #### 2 341-6 #### JAN Allen ([id number]) [facility] ([facility]) [address] [place] [address] MCH (RBC) [Entitic mass] 30.3 pg Normal 26.0-34.0 [facility] Comment on above: Performed By: #### 2 341-6 #### JAN Allen ([id number]) [facility] ([facility]) [address] [place] [address] 91470 MCHC (RBC) [Mass/Vol] 32.6 g/dL Normal 32.0-36.0 [facility] Comment on above: Performed By: #### 2 341-6 #### JAN Allen ([id number]) [facility] ([facility]) [address] [place] [address] 24948 MCV (RBC) [Entitic vol] 93 fL Normal 80-100 [facility] Comment on above: Performed By: #### 2 341-6 #### JAN Allen ([id number]) [facility] ([facility]) [address] [place] [address] 04672 Monocytes (Bld) [#/Vol] 0.50 x10*3/uL Normal 0.05-0.80 [facility] Comment on above: Performed By: #### 2 341-6 #### JAN Allen ([id number]) [facility] ([facility]) [address] [place] [address] 13283 Monocytes/100 WBC (Bld) 6.8 % Normal 2.0-10.0 [facility] Comment on above: Performed By: #### 2 341-6 #### JAN Allen ([id number]) [facility] ([facility]) [address] [place] [address] 82472 Neutrophils (Bld) [#/Vol] 5.83 x10*3/uL High 1.60-5.50 [facility] Comment on above: Result Comment: Perc ent differential counts (%) should be interpreted in the context of the absolute cell counts (cells/uL). Performed By: #### 2 341-6 #### JAN Allen ([id number]) [facility] ([facility]) [address] [place] [address] Neutrophils/100 WBC (Bld) 79.8 % Normal 40.0-80.0 [facility] Comment on above: Performed By: #### 2 341-6 #### JAN Allen ([id number]) [facility] ([facility]) [address] [place] [address] 18733 Nucleated RBC/100 WBC (Bld) [Ratio] 0.0 /100 WBCs Normal 0.0-0.0 [facility] Comment on above: Performed By: #### 2 341-6 #### JAN Allen ([id number]) [facility] ([facility]) [address] [place] [address] 36452 Platelets (Bld) [#/Vol] 219 x10*3/uL Normal 150-450 [facility] Comment on above: Performed By: #### 2 341-6 #### JAN Allen ([id number]) [facility] ([facility]) [address] [place] [address] 43572 RBC (Bld) [#/Vol] 3.80 x10*6/uL Low 4.50-5.90 [facility] Comment on above: Performed By: #### 2 341-6 #### JAN Allen ([id number]) [facility] ([facility]) [id number] [place] [address] [id number] WBC (Bld) [#/Vol] 7.3 x10*3/uL Normal 4.4-11.3 [facility] Comment on above: Performed By: #### 2 341-6 #### JAN Allen ([id number]) [facility] ([facility]) [id number] [place] [id number] Comprehensive metabolic 2000 panelon 10-28-2024 Albumin BCP dye [Mass/Vol] 2.5 g/dL Low 3.4 - 5.0 g/dL [facility] ALP [Catalytic activity/Vol] 49 U/L 33 - 136 U/L [facility] ALT With P-5'-P [Catalytic activity/Vol] 14 U/L 10 - 52 U/L [facility] Anion gap [Moles/Vol] 11 mmol/L 10 - 2 0 mmol/L [facility] AST With P-5'-P [Catalytic activity/Vol] 10 U/L 9 - 39 U/L [facility] Bilirubin [Mass/Vol] 1.2 mg/dL 0.0 - 1 .2 mg/dL [facility] Calcium [Mass/Vol] 7.9 mg/dL Low 8.6 - 10. 6 mg/dL [facility] Chloride [Moles/Vol] 116 mmol/L High 98 - 10 7 mmol/L [facility] CO2 [Moles/Vol] 25 mmol/L 21 - 32 mmol/L [facility] Creatinine [Mass/Vol] 0.53 mg/dL 0.50 - 1.30 mg/dL [facility] eGFR - PINF [facility] Glucose [Mass/Vol] 145 mg/dL High 74 - 99 mg/dL [facility] Interpretation and review of laboratory results Abnormal [facility] Potassium [Moles/Vol] 3.9 mmol/L 3.5 - 5.3 mmol/L [facility] Protein [Mass/Vol] 5.1 g/dL Low 6.4 - 8.2 g/dL [facility] Sodium [Moles/Vol] 148 mmol/L High 136 - 145 mmol/L [facility] Urea nitrogen [Mass/Vol] 26 mg/dL High 6 - 23 mg/dL [facility] Albumin BCP dye [Mass/Vol] 2.5 g/dL Low 3.4-5.0 [facility] Comment on above: Performed By: #### 2 341-6 #### JAN Allen ([id number]) [facility] ([facility]) [address] [place] [address] ALP [Catalytic activity/Vol] 49 U/L Normal 33-136 [facility] Comment on above: Performed By: #### 2 341-6 #### JAN Allen ([id number]) [facility] ([facility]) [address] [place] [address] ALT With P-5'-P [Catalytic activity/Vol] 14 U/L Normal 10-52 [facility] Comment on above: Result Comment: Alejandra ents treated with Sulfasalazine may generate falsely decreased results for ALT. Performed By: #### 2 341-6 #### JAN Allen ([id number]) [facility] ([facility]) [address] [place] [address] Anion gap [Moles/Vol] 11 mmol/L Normal 10-20 [facility] Comment on above: Performed By: #### 2 341-6 #### JAN Allen ([id number]) [facility] ([facility]) [address] [place] [address] AST With P-5'-P [Catalytic activity/Vol] 10 U/L Normal 9-39 [facility] Comment on above: Performed By: #### 2 341-6 #### JAN Allen ([id number]) [facility] ([facility]) [address] [place] [address] Bilirubin [Mass/Vol] 1.2 mg/dL Normal 0.0-1.2 [facility] Comment on above: Performed By: #### 2 341-6 #### JAN Allen ([id number]) [facility] ([facility]) [address] [place] [address] Calcium [Mass/Vol] 7.9 mg/dL Low 8.6-10.6 [facility] Comment on above: Performed By: #### 2 341-6 #### JAN Allen ([id number]) [facility] ([facility]) [address] [place] [address] Chloride [Moles/Vol] 116 mmol/L High 98-107 [facility] Comment on above: Performed By: #### 2 341-6 #### JAN Allen ([id number]) [facility] ([facility]) [address] [place] [address] CO2 [Moles/Vol] 25 mmol/L Normal 21-32 [facility] Comment on above: Performed By: #### 2 341-6 #### JAN Allen ([id number]) [facility] ([facility]) [address] [place] [address] Creatinine [Mass/Vol] 0.53 mg/dL Normal 0.50-1.30 [facility] Comment on above: Performed By: #### 2 341-6 #### JAN Allen ([id number]) [facility] ([facility]) [address] [place] [address] GFR/1.73 sq M.predicted MDRD (S/P/Bld) [Vol rate/Area] mL/min/{1.73_m2} Normal >60 [facility] Comment on above: Result Comment: Calc ulations of estimated GFR are performed using the 2020 CKD-EPI Study Refit equation without the race variable for the IDMS-Traceable creatinine methods. https://jasn.asnjournals.org/content/early//ASN.52539 77505 Performed By: #### 2 341-6 #### JAN Allen ([id number]) [facility] ([facility]) [address] [place] [address] Glucose [Mass/Vol] 145 mg/dL High 74-99 [facility] Comment on above: Performed By: #### 2 341-6 #### JAN Allen ([id number]) [facility] ([facility]) [address] [place] [address] Potassium [Moles/Vol] 3.9 mmol/L Normal 3.5-5.3 [facility] Comment on above: Performed By: #### 2 341-6 #### JAN Allen ([id number]) [facility] ([facility]) [address] [place] [address] Protein [Mass/Vol] 5.1 g/dL Low 6.4-8.2 [facility] Comment on above: Performed By: #### 2 341-6 #### JAN Allen ([id number]) [facility] ([facility]) [address] [place] [address] Sodium [Moles/Vol] 148 mmol/L High 136-145 [facility] Comment on above: Performed By: #### 2 341-6 #### JAN Allen ([id number]) [facility] ([facility]) [address] [place] [address] Urea nitrogen [Mass/Vol] 26 mg/dL High 6-23 [facility] Comment on above: Performed By: #### 2 341-6 #### JAN Allen ([id number]) [facility] ([facility]) [address] [place], [place] [address] Glucose Test strip manual (B ld) [Mass/Vol]on 10-28-2024 Glucose [Mass/Vol] 119 mg/dL High 74 - 99 mg/dL [facility] Interpretation and review of laboratory results Abnormal [facility] Glucose [Mass/Vol] 119 mg/dL High 74-99 [facility] Comment on above: Performed By: #### 2 341-6 #### JAN Allen ([id number]) [facility] ([facility]) [address] [place] [address] Magnesiumon 10-28-2024 Magnesium [Mass/Vol] 1.86 mg/dL 1.60 - 2.40 mg/dL [facility] Magnesium [Mass/Vol] 1.86 mg/dL Normal 1.60-2.40 [facility] Comment on above: Performed By: #### 2 341-6 #### JAN Allen ([id number]) [facility] ([facility]) [address] [place] [address] No Panel Informationon 10-28 Interpretation and review of laboratory results Normal [facility] Phosphateon 10-28-2024 Phosphate [Mass/Vol] 2.9 mg/dL Normal 2.5-4.9 [facility] Comment on above: Result Comment: The performance characteristics of phosphorus testing in heparinized plasma have been validated by the individual laboratory site where testing is performed. Testing on heparinized plasma is not approved by the FDA; however, such approval is not necessary. Performed By: #### 2 341-6 #### JAN Allen ([id number]) [facility] ([facility]) [address] [place] [address] Phosphoruson 10-28-2024 Phosphate [Mass/Vol] 2.9 mg/dL 2.5 - 4 .9 mg/dL [facility] Respiratory Culture/SmearOrd ered By: Rossy Rainey on 10-28-2024 Bacteria identified Respiratory culture Nom (Unsp spec) (3+) Moderate Methicillin Susceptible Staphylococcus aureus (MSSA) Abnormal [facility] Bacteria identified Respiratory culture Nom (Unsp spec) (3+) Moderate Normal throat ant [facility] CBC W Auto Differential pane l (Bld)on 10-27-2024 Basophils (Bld) [#/Vol] 0.02 10*3/uL [facility] Basophils/100 WBC (Bld) 0.3 % 0.0 - 2.0 % [facility] Eosinophils (Bld) [#/Vol] 0.07 10*3/uL [facility] Eosinophils/100 WBC (Bld) 1 % 0.0 - 6.0 % [facility] Erythrocyte distribution width (RBC) [Ratio] 14.9 % High 11.5 - 14.5 % [facility] Hematocrit (Bld) [Volume fraction] 33.8 % Low 41.0 - 52.0 % [facility] Hemoglobin (Bld) [Mass/Vol] 11.3 g/dL Low 13.5 - 17.5 g/dL [facility] Immature granulocytes (Bld) [#/Vol] 0.07 10*3/uL [facility] Immature granulocytes/100 WBC (Bld) 1 % High 0.0 - 0.9 % [facility] Interpretation and review of laboratory results Abnormal [facility] Lymphocytes (Bld) [#/Vol] 0.79 10*3/uL Low [facility] Lymphocytes/100 WBC (Bld) 11.7 % 13.0 - 44.0 % [facility] MCH (RBC) [Entitic mass] 29.8 pg 26.0 - 34.0 pg [facility] MCHC (RBC) [Mass/Vol] 33.4 g/dL 32.0 - 36.0 g/dL [facility] MCV (RBC) [Entitic vol] 89 fL 80 - 100 fL [facility] Monocytes (Bld) [#/Vol] 0.5 10*3/uL [facility] Monocytes/100 WBC (Bld) 7.4 % 2.0 - 10.0 % [facility] Neutrophils (Bld) [#/Vol] 5.28 10*3/uL [facility] Neutrophils/100 WBC (Bld) 78.6 % 40.0 - 80.0 % [facility] Nucleated RBC/100 WBC (Bld) [Ratio] 0 % [facility] Platelets (Bld) [#/Vol] 179 10*3/uL [facility] RBC (Bld) [#/Vol] 3.79 10*6/uL [facility] WBC (Bld) [#/Vol] 6.7 10*3/uL [facility] Basophils (Bld) [#/Vol] 0.02 x10*3/uL Normal 0.00-0.10 [facility] Comment on above: Performed By: #### 1 9123-9 #### JAN Allen ([id number]) [facility] ([facility]) [address] [place] [address] Basophils/100 WBC (Bld) 0.3 % Normal 0.0-2.0 [facility] Comment on above: Performed By: #### 1 9123-9 #### JAN Allen ([id number]) [facility] ([facility]) [address] [place] [address] Eosinophils (Bld) [#/Vol] 0.07 x10*3/uL Normal 0.00-0.40 [facility] Comment on above: Performed By: #### 1 9123-9 #### JAN Allen ([id number]) [facility] ([facility]) [address] [place] [address] Eosinophils/100 WBC (Bld) 1.0 % Normal 0.0-6.0 [facility] Comment on above: Performed By: #### 1 9123-9 #### JAN Allen ([id number]) [facility] ([facility]) [address] [place] [address] Erythrocyte distribution width (RBC) [Ratio] 14.9 % High 11.5-14.5 [facility] Comment on above: Performed By: #### 1 9123-9 #### JAN Allen ([id number]) [facility] ([facility]) [address] [place] [address] Hematocrit (Bld) [Volume fraction] 33.8 % Low 41.0-52.0 [facility] Comment on above: Performed By: #### 1 9123-9 #### JAN Allen ([id number]) [facility] ([facility]) [address] [place] [address] Hemoglobin (Bld) [Mass/Vol] 11.3 g/dL Low 13.5-17.5 [facility] Comment on above: Performed By: #### 1 9123-9 #### JAN Allen ([id number]) [facility] ([facility]) [address] [place] [address] Immature granulocytes (Bld) [#/Vol] 0.07 x10*3/uL Normal 0.00-0.50 [facility] Comment on above: Performed By: #### 1 9123-9 #### JAN Allen ([id number]) [facility] ([facility]) [address] [place] [address] Immature granulocytes/100 WBC (Bld) 1.0 % High 0.0-0.9 [facility] Comment on above: Result Comment: Iman ture Granulocyte Count (IG) includes promyelocytes, myelocytes and metamyelocytes but does not include bands. Percent differential counts (%) should be interpreted in the context of the absolute cell counts (cells/UL). Performed By: #### 1 9123-9 #### JAN Allen ([id number]) [facility] ([facility]) [address] [place] [address] Lymphocytes (Bld) [#/Vol] 0.79 x10*3/uL Low 0.80-3.00 [facility] Comment on above: Performed By: #### 1 9123-9 #### JAN Allen ([id number]) [facility] ([facility]) [address] [place] [address] Lymphocytes/100 WBC (Bld) 11.7 % Normal 13.0-44.0 [facility] Comment on above: Performed By: #### 1 9123-9 #### JAN Allen ([id number]) [facility] ([facility]) [address] [place] [address] MCH (RBC) [Entitic mass] 29.8 pg Normal 26.0-34.0 [facility] Comment on above: Performed By: #### 1 9123-9 #### JAN Allen ([id number]) [facility] ([facility]) [address] [place] [address] MCHC (RBC) [Mass/Vol] 33.4 g/dL Normal 32.0-36.0 [facility] Comment on above: Performed By: #### 1 9123-9 #### JAN Allen ([id number]) [facility] ([facility]) [address] [place] [address] MCV (RBC) [Entitic vol] 89 fL Normal 80-100 [facility] Comment on above: Performed By: #### 1 9123-9 #### JAN Allen ([id number]) [facility] ([facility]) [address] [place] [address] Monocytes (Bld) [#/Vol] 0.50 x10*3/uL Normal 0.05-0.80 [facility] Comment on above: Performed By: #### 1 9123-9 #### JAN Allen ([id number]) [facility] ([facility]) [address] [place] [address] Monocytes/100 WBC (Bld) 7.4 % Normal 2.0-10.0 [facility] Comment on above: Performed By: #### 1 9123-9 #### JAN Allen ([id number]) [facility] ([facility]) [address] [place] [address] Neutrophils (Bld) [#/Vol] 5.28 x10*3/uL Normal 1.60-5.50 [facility] Comment on above: Result Comment: Perc ent differential counts (%) should be interpreted in the context of the absolute cell counts (cells/uL). Performed By: #### 1 9123-9 #### JAN Allen ([id number]) [facility] ([facility]) [address] [place] [address] Neutrophils/100 WBC (Bld) 78.6 % Normal 40.0-80.0 [facility] Comment on above: Performed By: #### 1 9123-9 #### JAN Allen ([id number]) [facility] ([facility]) [address] [place] [address] Nucleated RBC/100 WBC (Bld) [Ratio] 0.0 /100 WBCs Normal 0.0-0.0 [facility] Comment on above: Performed By: #### 1 9123-9 #### JAN Allen ([id number]) [facility] ([facility]) [address] [place] [address] Platelets (Bld) [#/Vol] 179 x10*3/uL Normal 150-450 [facility] Comment on above: Performed By: #### 1 9123-9 #### JAN Allen ([id number]) [facility] ([facility]) [address] [place] [address] RBC (Bld) [#/Vol] 3.79 x10*6/uL Low 4.50-5.90 [facility] Comment on above: Performed By: #### 1 9123-9 #### JAN Allen ([id number]) [facility] ([facility]) [address] [place] [address] WBC (Bld) [#/Vol] 6.7 x10*3/uL Normal 4.4-11.3 [facility] Comment on above: Performed By: #### 1 9123-9 #### JAN FREIRE L ([id number]) [facility] ([facility]) [address] [place] [address] Comprehensive metabolic 2000 panelon 10-27-2024 Albumin BCP dye [Mass/Vol] 2.4 g/dL Low 3.4 - 5.0 g/dL [facility] ALP [Catalytic activity/Vol] 46 U/L 33 - 136 U/L [facility] ALT With P-5'-P [Catalytic activity/Vol] 17 U/L 10 - 52 U/L [facility] Anion gap [Moles/Vol] 16 mmol/L 10 - 2 0 mmol/L [facility] AST With P-5'-P [Catalytic activity/Vol] 17 U/L 9 - 39 U/L [facility] Bilirubin [Mass/Vol] 1.6 mg/dL High 0.0 - 1 .2 mg/dL [facility] Calcium [Mass/Vol] 7.9 mg/dL Low 8.6 - 10. 6 mg/dL [facility] Chloride [Moles/Vol] 115 mmol/L High 98 - 10 7 mmol/L [facility] CO2 [Moles/Vol] 21 mmol/L 21 - 32 mmol/L [facility] Creatinine [Mass/Vol] 0.62 mg/dL 0.50 - 1.30 mg/dL [facility] eGFR - PINF [facility] Glucose [Mass/Vol] 142 mg/dL High 74 - 99 mg/dL [facility] Interpretation and review of laboratory results Abnormal [facility] Potassium [Moles/Vol] 3.5 mmol/L 3.5 - 5.3 mmol/L [facility] Protein [Mass/Vol] 5 g/dL Low 6.4 - 8.2 g/dL [facility] Sodium [Moles/Vol] 148 mmol/L High 136 - 145 mmol/L [facility] Urea nitrogen [Mass/Vol] 33 mg/dL High 6 - 23 mg/dL [facility] Albumin BCP dye [Mass/Vol] 2.4 g/dL Low 3.4-5.0 [facility] Comment on above: Performed By: #### 1 9123-9 #### JAN Allen ([id number]) [facility] ([facility]) [address] [place] [address] ALP [Catalytic activity/Vol] 46 U/L Normal 33-136 [facility] Comment on above: Performed By: #### 1 9123-9 #### JAN Allen ([id number]) [facility] ([facility]) [address] [place] [address] ALT With P-5'-P [Catalytic activity/Vol] 17 U/L Normal 10-52 [facility] Comment on above: Result Comment: Alejandra ents treated with Sulfasalazine may generate falsely decreased results for ALT. Performed By: #### 1 9123-9 #### JAN Allen ([id number]) [facility] ([facility]) [address] [place] [address] Anion gap [Moles/Vol] 16 mmol/L Normal 10-20 [facility] Comment on above: Performed By: #### 1 9123-9 #### JAN Allen ([id number]) [facility] ([facility]) [address] [place] [address] AST With P-5'-P [Catalytic activity/Vol] 17 U/L Normal 9-39 [facility] Comment on above: Performed By: #### 1 9123-9 #### JAN Allen ([id number]) [facility] ([facility]) [address] [place] [address]23 Bilirubin [Mass/Vol] 1.6 mg/dL High 0.0-1.2 [facility] Comment on above: Performed By: #### 1 9123-9 #### JAN Allen ([id number]) [facility] ([facility]) [address] [place] [address] Calcium [Mass/Vol] 7.9 mg/dL Low 8.6-10.6 [facility] Comment on above: Performed By: #### 1 9123-9 #### JAN FREIRE L ([id number]) [facility] ([facility]) [address] [place] [address] Chloride [Moles/Vol] 115 mmol/L High 98-107 [facility] Comment on above: Performed By: #### 1 9123-9 #### JAN FREIRE L ([id number]) [facility] ([facility]) [address] [place] [address] CO2 [Moles/Vol] 21 mmol/L Normal 21-32 [facility] Comment on above: Performed By: #### 1 9123-9 #### JAN Allen ([id number]) [facility] ([facility]) [address] [place] [address] Creatinine [Mass/Vol] 0.62 mg/dL Normal 0.50-1.30 [facility] Comment on above: Performed By: #### 1 9123-9 #### JAN Allen ([id number]) [facility] ([facility]) [address] [place] [address] GFR/1.73 sq M.predicted MDRD (S/P/Bld) [Vol rate/Area] mL/min/{1.73_m2} Normal >60 [facility] Comment on above: Result Comment: Calc ulations of estimated GFR are performed using the 2020 CKD-EPI Study Refit equation without the race variable for the IDMS-Traceable creatinine methods. https://jasn.asnjournals.org/content//ASN. 29120 Performed By: #### 1 9123-9 #### JAN Allen ([id number]) [facility] ([facility]) [address] [place] [address] Glucose [Mass/Vol] 142 mg/dL High 74-99 [facility] Comment on above: Performed By: #### 1 9123-9 #### JAN Allen ([id number]) [facility] ([facility]) [address] [place] [address]156 Potassium [Moles/Vol] 3.5 mmol/L Normal 3.5-5.3 [facility] Comment on above: Performed By: #### 1 9123-9 #### JAN Allen ([id number]) [facility] ([facility]) [address] [place] [address] 25696 Protein [Mass/Vol] 5.0 g/dL Low 6.4-8.2 [facility] Comment on above: Performed By: #### 1 9123-9 #### JAN Allen ([id number]) [facility] ([facility]) [address] [place] [address]37 Sodium [Moles/Vol] 148 mmol/L High 136-145 [facility] Comment on above: Performed By: #### 1 9123-9 #### JAN Allen ([id number]) [facility] ([facility]) [address] [place] [address] 15036 Urea nitrogen [Mass/Vol] 33 mg/dL High 6-23 [facility] Comment on above: Performed By: #### 1 9123-9 #### JAN Allen ([id number]) [facility] ([facility]) [address] [place] [address] 72952 Glucose Test strip manual (B ld) [Mass/Vol]on 10-27-2024 Glucose [Mass/Vol] 120 mg/dL High 74 - 99 mg/dL [facility] Interpretation and review of laboratory results Abnormal [facility] Glucose [Mass/Vol] 120 mg/dL High 74-99 [facility] Comment on above: Performed By: #### 2 4323-8 #### JAN Allen ([id number]) [facility] ([facility]) [address] [place] [address] 73542 Glucose [Mass/Vol] 117 mg/dL High 74 - 99 mg/dL [facility] Interpretation and review of laboratory results Abnormal [facility] Glucose [Mass/Vol] 117 mg/dL High 74-99 [facility] Comment on above: Performed By: #### 2 4323-8 #### JAN Allen ([id number]) [facility] ([facility]) [address] [place] [address] Glucose [Mass/Vol] 102 mg/dL High 74 - 99 mg/dL [facility] Interpretation and review of laboratory results Abnormal [facility] Glucose [Mass/Vol] 102 mg/dL High 74-99 [facility] Comment on above: Performed By: #### 2 4323-8 #### JAN Allen ([id number]) [facility] ([facility]) [address] [place] [address] 68073 Glucose [Mass/Vol] 102 mg/dL High 74 - 99 mg/dL [facility] Interpretation and review of laboratory results Abnormal [facility] Glucose [Mass/Vol] 102 mg/dL High 74-99 [facility] Comment on above: Performed By: #### 2 4323-8 #### JAN Allen ([id number]) [facility] ([facility]) [address] [place] [address] 17252 Glucose [Mass/Vol] 99 mg/dL 74 - 99 mg/dL [facility] Interpretation and review of laboratory results Normal [facility] Glucose [Mass/Vol] 99 mg/dL Normal 74-99 [facility] Comment on above: Performed By: #### 2 4323-8 #### JAN Allen ([id number]) [facility] ([facility]) [address] [place] [address] 38570 Glucose [Mass/Vol] 93 mg/dL 74 - 99 mg/dL [facility] Interpretation and review of laboratory results Normal [facility] Glucose [Mass/Vol] 93 mg/dL Normal 74-99 [facility] Comment on above: Performed By: #### 2 4323-8 #### JAN Allen ([id number]) [facility] ([facility]) [address] [place] [address] 22065 Glucose [Mass/Vol] 126 mg/dL High 74 - 99 mg/dL [facility] Interpretation and review of laboratory results Abnormal [facility] Glucose [Mass/Vol] 126 mg/dL High 74-99 [facility] Comment on above: Performed By: #### 1 9123-9 #### JAN Allen ([id number]) [facility] ([facility]) [address] [place] [address] 41314 Glucose [Mass/Vol] 71 mg/dL Low 74 - 99 mg/dL [facility] Interpretation and review of laboratory results Abnormal [facility] Glucose [Mass/Vol] 71 mg/dL Low 74-99 [facility] Comment on above: Performed By: #### 1 9123-9 #### JAN Allen ([id number]) [facility] ([facility]) [address] [place] [id number] Magnesiumon 10-27-2024 Magnesium [Mass/Vol] 2.02 mg/dL 1.60 - 2.40 mg/dL [facility] Magnesium [Mass/Vol] 2.02 mg/dL Normal 1.60-2.40 [facility] Comment on above: Performed By: #### 1 9123-9 #### JAN Allen ([id number]) [facility] ([facility]) [address] [place] [address] No Panel Informationon 10-27 U[facility] MMODAL U[facility] MM[facility]AL [facility] Work Phone: [facility] Work Phone: Interpretation and review of laboratory results Normal [facility] Path Review-Immunohematology Ordered By: Chandler Mendes on 10-27-2024 PATH REV-IMMUNOHEMATOLOGY [facility] Work Phone: [facility] Work Phone: Phosphateon 10-27-2024 Phosphate [Mass/Vol] 3.9 mg/dL Normal 2.5-4.9 [facility] Comment on above: Result Comment: The performance characteristics of phosphorus testing in heparinized plasma have been validated by the individual laboratory site where testing is performed. Testing on heparinized plasma is not approved by the FDA; however, such approval is not necessary. Performed By: #### 1 9123-9 #### JAN Allen ([id number]) [facility] ([facility]) [address] [place] [address] Phosphoruson 10-27-2024 Phosphate [Mass/Vol] 3.9 mg/dL 2.5 - 4 .9 mg/dL [facility] XR Chest Single viewon 10-27 MMODAL [facility] MM[facility]AL [facility] Work Phone: XR Chest Single viewOrdered By: Shalom Malone on 10-27-2024 [facility] Work Phone: BB ORDER ONLY - ANTIBODY MARCO NTIFICATIONon 10-26-2024 Blood group antibody investigation (P/RBC) [Interp] Anti-Little e [facility] Comment on above: Performed By: #### 1 9123-9 #### JAN Allen ([id number]) [facility] ([facility]) [address] [place] [address] CASE # [id number] [facility] Comment on above: Performed By: #### 1 9123-9 #### JAN Allen ([id number]) [facility] ([facility]) [address] [place] [address] BB ORDER ONLY - Antibody Marco ntificationOrdered By: Rianna Vance on 10-26-2024 Blood group antibody investigation (P/RBC) [Interp] Anti-Little e [facility] CASE # [id number] [facility] Bacteria identifiedon 2024 Bacteria identified Respiratory culture Nom (Unsp spec) Test: Respiratory Culture/Smear Specimen Source: SPUTUM Specimen Type: Fluid Specimen Date: 10/26/2024101 Result Date: 10/28/20241124 Result Status: Final result Abnormal: Yes Resulting Lab: [facility] [address] [place] [address] CULTURE (3+) Moderate Methicillin Susceptible Staphylococcus aureus (MSSA) (Abnormal) (3+) Moderate Normal throat ant STAIN Gram stain indicates specimen consists of lower respiratory tract secretions. No predominant organism SUSCEPTIBILITY Methicillin Susceptible Staphylococcus aureus (MSSA) METHOD MICROSCAN ---- --- CLINDAMYCIN 0.500 ug/ml Susceptible ERYTHROMYCIN <=0.25 ug/ml Susceptible OXACILLIN <=0.25 ug/ml Susceptible TETRACYCLINE <=2.000 ug/ml Susceptible TRIMETHOPRIM/SULFAMETHOXA ZOLE <=0.5/9.5 ug/ml Susceptible VANCOMYCIN 1.000 ug/ml Susceptible Abnormal [facility] Comment on above: Performed By: #### 5 7021-8 #### JAN Allen ([id number]) [facility] ([facility]) [address] [place] [address] Blood type and Indirect anti body screen panel (Bld)on 10-26-2024 ABO group Nom (Bld) A [facility] Blood group antibody screen Ql Positive [facility] D Ag Ql (Bld) Positive [facility] ABO group Nom (Bld) A Normal [facility] Comment on above: Performed By: #### 5 7021-8 #### JAN Allen ([id number]) [facility] ([facility]) [address] [place] [address] Blood group antibody screen Ql Positive [facility] Comment on above: Performed By: #### 5 7021-8 #### JAN Allen ([id number]) [facility] ([facility]) [address] [place] [address] D Ag Ql (Bld) Positive [facility] Comment on above: Performed By: #### 5 7021-8 #### JAN Allen ([id number]) [facility] ([facility]) [address] [place], [place] [address] CBC W Auto Differential pane l (Bld)on 10-26-2024 Basophils (Bld) [#/Vol] 0.02 10*3/uL [facility] Basophils/100 WBC (Bld) 0.3 % 0.0 - 2.0 % [facility] Eosinophils (Bld) [#/Vol] 0.03 10*3/uL [facility] Eosinophils/100 WBC (Bld) 0.5 % 0.0 - 6.0 % [facility] Erythrocyte distribution width (RBC) [Ratio] 14.9 % High 11.5 - 14.5 % [facility] Hematocrit (Bld) [Volume fraction] 32.9 % Low 41.0 - 52.0 % [facility] Hemoglobin (Bld) [Mass/Vol] 10.6 g/dL Low 13.5 - 17.5 g/dL [facility] Immature granulocytes (Bld) [#/Vol] 0.03 10*3/uL [facility] Immature granulocytes/100 WBC (Bld) 0.5 % 0.0 - 0.9 % [facility] Interpretation and review of laboratory results Abnormal [facility] Lymphocytes (Bld) [#/Vol] 0.72 10*3/uL Low [facility] Lymphocytes/100 WBC (Bld) 12.3 % 13.0 - 44.0 % [facility] MCH (RBC) [Entitic mass] 30.3 pg 26.0 - 34.0 pg [facility] MCHC (RBC) [Mass/Vol] 32.2 g/dL 32.0 - 36.0 g/dL [facility] MCV (RBC) [Entitic vol] 94 fL 80 - 100 fL [facility] Monocytes (Bld) [#/Vol] 0.75 10*3/uL [facility] Monocytes/100 WBC (Bld) 12.8 % 2.0 - 10.0 % [facility] Neutrophils (Bld) [#/Vol] 4.31 10*3/uL [facility] Neutrophils/100 WBC (Bld) 73.6 % 40.0 - 80.0 % [facility] Nucleated RBC/100 WBC (Bld) [Ratio] 0 % [facility] Platelets (Bld) [#/Vol] 147 10*3/uL Low [facility] RBC (Bld) [#/Vol] 3.5 10*6/uL Low [facility] WBC (Bld) [#/Vol] 5.9 10*3/uL [facility] Basophils (Bld) [#/Vol] 0.02 x10*3/uL Normal 0.00-0.10 [facility] Comment on above: Performed By: #### 5 7021-8 #### JAN Allen ([id number]) [facility] ([facility]) [address] [place] [address] 50818 Basophils/100 WBC (Bld) 0.3 % Normal 0.0-2.0 [facility] Comment on above: Performed By: #### 5 7021-8 #### JAN Allen ([id number]) [facility] ([facility]) [address] [place] [address] 32658 Eosinophils (Bld) [#/Vol] 0.03 x10*3/uL Normal 0.00-0.40 [facility] Comment on above: Performed By: #### 5 7021-8 #### JAN Allen ([id number]) [facility] ([facility]) [address] [place] [address] 17880 Eosinophils/100 WBC (Bld) 0.5 % Normal 0.0-6.0 [facility] Comment on above: Performed By: #### 5 7021-8 #### JAN Allen ([id number]) [facility] ([facility]) [address] [place] [address] 03848 Erythrocyte distribution width (RBC) [Ratio] 14.9 % High 11.5-14.5 [facility] Comment on above: Performed By: #### 5 7021-8 #### JAN Allen ([id number]) [facility] ([facility]) [address] [place] [address] 08003 Hematocrit (Bld) [Volume fraction] 32.9 % Low 41.0-52.0 [facility] Comment on above: Performed By: #### 5 7021-8 #### JAN Allen ([id number]) [facility] ([facility]) [address] [place] [address] 72856 Hemoglobin (Bld) [Mass/Vol] 10.6 g/dL Low 13.5-17.5 [facility] Comment on above: Performed By: #### 5 7021-8 #### JAN Allen ([id number]) [facility] ([facility]) [address] [place] [address] 20949 Immature granulocytes (Bld) [#/Vol] 0.03 x10*3/uL Normal 0.00-0.50 [facility] Comment on above: Performed By: #### 5 7021-8 #### JAN Allen ([id number]) [facility] ([facility]) [address] [place] [address] 21922 Immature granulocytes/100 WBC (Bld) 0.5 % Normal 0.0-0.9 [facility] Comment on above: Result Comment: Iman ture Granulocyte Count (IG) includes promyelocytes, myelocytes and metamyelocytes but does not include bands. Percent differential counts (%) should be interpreted in the context of the absolute cell counts (cells/UL). Performed By: #### 5 7021-8 #### JAN Allen ([id number]) [facility] ([facility]) [address] [place] [address] 46019 Lymphocytes (Bld) [#/Vol] 0.72 x10*3/uL Low 0.80-3.00 [facility] Comment on above: Performed By: #### 5 7021-8 #### JAN Allen ([id number]) [facility] ([facility]) [address] [place] [address] 10789 Lymphocytes/100 WBC (Bld) 12.3 % Normal 13.0-44.0 [facility] Comment on above: Performed By: #### 5 7021-8 #### JAN Allen ([id number]) [facility] ([facility]) [address] [place] [address] 11299 MCH (RBC) [Entitic mass] 30.3 pg Normal 26.0-34.0 [facility] Comment on above: Performed By: #### 5 7021-8 #### JAN Allen ([id number]) [facility] ([facility]) [address] [place] [address] 99507 MCHC (RBC) [Mass/Vol] 32.2 g/dL Normal 32.0-36.0 [facility] Comment on above: Performed By: #### 5 7021-8 #### JAN Allen ([id number]) [facility] ([facility]) [address] [place] [address] 20453 MCV (RBC) [Entitic vol] 94 fL Normal 80-100 [facility] Comment on above: Performed By: #### 5 7021-8 #### JAN Allen ([id number]) [facility] ([facility]) [address] [place] [address] 75479 Monocytes (Bld) [#/Vol] 0.75 x10*3/uL Normal 0.05-0.80 [facility] Comment on above: Performed By: #### 5 7021-8 #### JAN Allen ([id number]) [facility] ([facility]) [address] [place] [address] Monocytes/100 WBC (Bld) 12.8 % Normal 2.0-10.0 [facility] Comment on above: Performed By: #### 5 7021-8 #### JAN FREIRE L ([id number]) [facility] ([facility]) [address] [place] [address] 38676 Neutrophils (Bld) [#/Vol] 4.31 x10*3/uL Normal 1.60-5.50 [facility] Comment on above: Result Comment: Perc ent differential counts (%) should be interpreted in the context of the absolute cell counts (cells/uL). Performed By: #### 5 7021-8 #### JAN Allen ([id number]) [facility] ([facility]) [address] [place] [address] 47966 Neutrophils/100 WBC (Bld) 73.6 % Normal 40.0-80.0 [facility] Comment on above: Performed By: #### 5 7021-8 #### JAN Allen ([id number]) [facility] ([facility]) [address] [place] [address] 30407 Nucleated RBC/100 WBC (Bld) [Ratio] 0.0 /100 WBCs Normal 0.0-0.0 [facility] Comment on above: Performed By: #### 5 7021-8 #### JAN FREIRE L ([id number]) [facility] ([facility]) [address] [place] [address] 79049 Platelets (Bld) [#/Vol] 147 x10*3/uL Low 150-450 [facility] Comment on above: Performed By: #### 5 7021-8 #### JAN FREIRE L ([id number]) [facility] ([facility]) [address] [place] [address] 88438 RBC (Bld) [#/Vol] 3.50 x10*6/uL Low 4.50-5.90 [facility] Comment on above: Performed By: #### 5 7021-8 #### JAN Allen ([id number]) [facility] ([facility]) [address] [place] [address] WBC (Bld) [#/Vol] 5.9 x10*3/uL Normal 4.4-11.3 [facility] Comment on above: Performed By: #### 5 7021-8 #### JAN Allen ([id number]) [facility] ([facility]) [address] [place] [address] Comprehensive metabolic 2000 panelon 10-26-2024 Albumin BCP dye [Mass/Vol] 2.3 g/dL Low 3.4 - 5.0 g/dL [facility] ALP [Catalytic activity/Vol] 42 U/L 33 - 136 U/L [facility] ALT With P-5'-P [Catalytic activity/Vol] 20 U/L 10 - 52 U/L [facility] Anion gap [Moles/Vol] 16 mmol/L 10 - 2 0 mmol/L [facility] AST With P-5'-P [Catalytic activity/Vol] 27 U/L 9 - 39 U/L [facility] Bilirubin [Mass/Vol] 2.4 mg/dL High 0.0 - 1 .2 mg/dL [facility] Calcium [Mass/Vol] 7.7 mg/dL Low 8.6 - 10. 6 mg/dL [facility] Chloride [Moles/Vol] 114 mmol/L High 98 - 10 7 mmol/L [facility] CO2 [Moles/Vol] 21 mmol/L 21 - 32 mmol/L [facility] Creatinine [Mass/Vol] 0.72 mg/dL 0.50 - 1.30 mg/dL [facility] eGFR - PINF [facility] Glucose [Mass/Vol] 86 mg/dL 74 - 99 mg/dL [facility] Interpretation and review of laboratory results Abnormal [facility] Potassium [Moles/Vol] 3.7 mmol/L 3.5 - 5.3 mmol/L [facility] Protein [Mass/Vol] 4.6 g/dL Low 6.4 - 8.2 g/dL [facility] Sodium [Moles/Vol] 147 mmol/L High 136 - 145 mmol/L [facility] Urea nitrogen [Mass/Vol] 34 mg/dL High 6 - 23 mg/dL [facility] Albumin BCP dye [Mass/Vol] 2.3 g/dL Low 3.4-5.0 [facility] Comment on above: Performed By: #### 5 7021-8 #### JAN Allen ([id number]) [facility] ([facility]) [address] [place] [address] 82743 ALP [Catalytic activity/Vol] 42 U/L Normal 33-136 [facility] Comment on above: Performed By: #### 5 7021-8 #### JAN Allen ([id number]) [facility] ([facility]) [address] [place] [address] 49720 ALT With P-5'-P [Catalytic activity/Vol] 20 U/L Normal 10-52 [facility] Comment on above: Result Comment: Aeljandra ents treated with Sulfasalazine may generate falsely decreased results for ALT. Performed By: #### 5 7021-8 #### JAN Allen ([id number]) [facility] ([facility]) [address] [place] [address] 61350 Anion gap [Moles/Vol] 16 mmol/L Normal 10-20 [facility] Comment on above: Performed By: #### 5 7021-8 #### JAN Allen ([id number]) [facility] ([facility]) [address] [place] [address] 54657 AST With P-5'-P [Catalytic activity/Vol] 27 U/L Normal 9-39 [facility] Comment on above: Performed By: #### 5 7021-8 #### JAN Allen ([id number]) [facility] ([facility]) [address] [place] [address] 89721 Bilirubin [Mass/Vol] 2.4 mg/dL High 0.0-1.2 [facility] Comment on above: Performed By: #### 5 7021-8 #### JAN Allen ([id number]) [facility] ([facility]) [address] [place] [address] Calcium [Mass/Vol] 7.7 mg/dL Low 8.6-10.6 [facility] Comment on above: Performed By: #### 5 7021-8 #### JAN FREIRE L ([id number]) [facility] ([facility]) [address] [place] [address] Chloride [Moles/Vol] 114 mmol/L High 98-107 [facility] Comment on above: Performed By: #### 5 7021-8 #### JAN FREIRE L ([id number]) [facility] ([facility]) [address] [place] [address] 66486 CO2 [Moles/Vol] 21 mmol/L Normal 21-32 [facility] Comment on above: Performed By: #### 5 7021-8 #### JAN FREIRE L ([id number]) [facility] ([facility]) [address] [place] [address] 86696 Creatinine [Mass/Vol] 0.72 mg/dL Normal 0.50-1.30 [facility] Comment on above: Performed By: #### 5 7021-8 #### JAN FREIRE L ([id number]) [facility] ([facility]) [address] [place] [address] 06400 GFR/1.73 sq M.predicted MDRD (S/P/Bld) [Vol rate/Area] mL/min/{1.73_m2} Normal >60 [facility] Comment on above: Result Comment: Calc ulations of estimated GFR are performed using the 2020 CKD-EPI Study Refit equation without the race variable for the IDMS-Traceable creatinine methods. https://jasn.asnjournals.org/content/early/ASN.15451 78395 Performed By: #### 5 7021-8 #### JAN FREIRE L ([id number]) [facility] ([facility]) [address] [place] [address] 33906 Glucose [Mass/Vol] 86 mg/dL Normal 74-99 [facility] Comment on above: Performed By: #### 5 7021-8 #### JAN Allen ([id number]) [facility] ([facility]) [address] [place] [address] 38103 Potassium [Moles/Vol] 3.7 mmol/L Normal 3.5-5.3 [facility] Comment on above: Performed By: #### 5 7021-8 #### JAN Allen ([id number]) [facility] ([facility]) [address] [place] [address] 62921 Protein [Mass/Vol] 4.6 g/dL Low 6.4-8.2 [facility] Comment on above: Performed By: #### 5 7021-8 #### JAN Allen ([id number]) [facility] ([facility]) [address] [place] [address] 23907 Sodium [Moles/Vol] 147 mmol/L High 136-145 [facility] Comment on above: Performed By: #### 5 7021-8 #### JAN Allen ([id number]) [facility] ([facility]) [address] [place] [address] 53975 Urea nitrogen [Mass/Vol] 34 mg/dL High 6-23 [facility] Comment on above: Performed By: #### 5 7021-8 #### JAN Allen ([id number]) [facility] ([facility]) [address] [place] [address] 42472 Glucose Test strip manual (B ld) [Mass/Vol]on 10-26-2024 Glucose [Mass/Vol] 83 mg/dL 74 - 99 mg/dL [facility] Interpretation and review of laboratory results Normal [facility] Glucose [Mass/Vol] 83 mg/dL Normal 74-99 [facility] Comment on above: Performed By: #### 1 9123-9 #### JAN Allen ([id number]) [facility] ([facility]) [address] [place] [address] Legionella Antigen, UrineOrd ered By: Maritza Ledezma on 10-26-2024 Legionella sp Ag Ql (U) Negative Negative [facility] Legionella sp Agon Legionella sp Ag Ql (U) Negative Normal Negative [facility] Comment on above: Performed By: #### 1 9123-9 #### JAN Allen ([id number]) [facility] ([facility]) [address] [place] [address] Legionella sp Ag Ql (U)Order ed By: Maritza Ledezma on 10-26-2024 Interpretation and review of laboratory results [facility] Magnesiumon 10-26-2024 Magnesium [Mass/Vol] 2.06 mg/dL 1.60 - 2.40 mg/dL [facility] Magnesium [Mass/Vol] 2.06 mg/dL Normal 1.60-2.40 [facility] Comment on above: Performed By: #### 5 7021-8 #### JAN Allen ([id number]) [facility] ([facility]) [address] [place] [address] No Panel Informationon 10-26 Interpretation and review of laboratory results [facility] PATH REVIEW-IMMUNOHEMATOLOGY on 10-26-2024 PATH [id number] R30 SEE COMMENT Normal [facility] Comment on above: Result Comment: Anti body detection screen is positive. Antibody identification panel was performed. The autocontrol is negative. 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 All other common clinically significant alloantibodies have been ruled out. Full crossmatched K([place])-antigen negative, C(Big C)-antigen negative and e-antigen negative donor RBC units should be selected for transfusion for this patient. . By the signature on this report, the individual or group listed as making the Final Interpretation/Diagnosis certifies that they have reviewed this case. Performed By: #### 2 4323-8 #### JAN Allen ([id number]) [facility] ([facility]) [address] [place] [address] Phosphateon 10-26-2024 Phosphate [Mass/Vol] 3.4 mg/dL Normal 2.5-4.9 [facility] Comment on above: Result Comment: The performance characteristics of phosphorus testing in heparinized plasma have been validated by the individual laboratory site where testing is performed. Testing on heparinized plasma is not approved by the FDA; however, such approval is not necessary. Performed By: #### 5 7021-8 #### JAN Allen ([id number]) [facility] ([facility]) [address] [place] [address] Phosphoruson 10-26-2024 Phosphate [Mass/Vol] 3.4 mg/dL 2.5 - 4 .9 mg/dL [facility] ProcalcitoninOrdered By: Ebony Robles on 10-26-2024 Procalcitonin [Mass/Vol] 0.97 ng/mL High NINF - 0.07 ng/mL [facility] Procalcitoninon 10-26-2024 Procalcitonin [Mass/Vol] 0.97 ng/mL High <=0.07 [facility] Comment on above: Order Comment: Proca lcitonin (PCT) results measured serially canaid in decision-making for antibiotic discontinuation inpatients with suspected or confirmed sepsis in conjunctionwith additional clinical information. Antibioticdiscontinuation may be considered with a change in PCT of>80% from the peak result or when PCT falls below 0.50 ng/mL.Procalcitonin results should not be used in isolation butshould be interpreted in conjunction with additional clinicaland laboratory findings. Procalcitonin results should not beused to guide the initiation of antibiotic therapy.Falsely low PCT values in the presence of bacterial infectionmay occur in early infection, with atypical pathogens,localized infections, and subacute infectious endocarditis.Falsely elevated results outside of severe bacterialinfection/sepsis may be seen in patients with renal failureor insufficiency, severe trauma or gomez, recent majorabdominal/cardiac surgery, acute multi-organ failure, rarelyin patients with medullary thyroid carcinoma and rareneuroendocrine tumors, and non-specific interfering antibodies(heterophile antibodies, rheumatoid factor, human anti-mouseantibodies (HAMA), etc).Performance of the PCT test in pediatric patients (<18yo), women, immunocompromised patients, and patients onimmunomodulatory medications has not been evaluated. Performed By: #### 5 7021-8 #### JAN Allen ([id number]) [facility] ([facility]) [address] [place] [address] Procalcitonin [Mass/Vol]Orde red By: Jenelle Robles on 10-26-2024 Interpretation and review of laboratory results Abnormal [facility] S. pneumoniae Ag Ql (U)on Interpretation and review of laboratory results Normal [facility] Work Phone: [facility] Work Phone: Streptococcus pneumoniae Ago n 10-26-2024 S. pneumoniae Ag Ql (U) Negative Normal Negative [facility] Comment on above: Performed By: #### 1 9123-9 #### JAN Allen ([id number]) [facility] ([facility]) [address] [place] [address] Streptococcus pneumoniae Ant igen, Urineon 10-26-2024 S. pneumoniae Ag Ql (U) Negative Negative [facility] Work Phone: XR ABDOMEN 1 VIEWon 10-26-19 25 XR ABDOMEN 1 VIEW Interpreted By: Shalom Sheikh and Obie Dudley STUDY: XR ABDOMEN 1 VIEW; XR CHEST 1 VIEW; 10/26/2024 6:22 pm; 10/26/2024 7:28 pm INDICATION: Signs/Symptoms:post feeding tube placement; Signs/Symptoms:PNX followup. COMPARISON: Chest radiograph 10/26/2024 time stamped 2:58 p.m. Abdominal radiograph 06/13/2022 ACCESSION NUMBER(S): [id number]; [id number] ORDERING CLINICIAN: JASON SOLIZ FINDINGS: AP radiograph of the chest and AP radiograph of the abdomen were provided Interval placement of an enteric tube with tip projecting over the distal gastric body/pyloric region. Median sternotomy wires appear intact. Similar positioning of the left atrial appendage occlusion device. Left chest wall pacemaker similar positioning with leads overlying the right atrium and right ventricle. Prosthetic cardiac valve in stable positioning. CARDIOMEDIASTINAL SILHOUETTE: The cardiomediastinal silhouette is enlarged but stable in size and configuration. LUNGS: Small bilateral pleural effusions. Mild hazy opacities of the right lung base. No pneumothorax. ABDOMEN: Nonobstructive bowel-gas pattern in the visualized upper abdomen. Surgical cole over the right upper abdominal quadrant. BONES: No acute osseous abnormality. IMPRESSION: 1. Small bilateral pleural effusions with hazy opacities of the right lung base which may reflect atelectasis, edema, or infectious infiltrate. 2. Similar cardiomegaly. 3. Nonobstructive bowel-gas pattern in the visualized abdomen. 4. Interval placement of an enteric tube with tip projecting over the distal gastric body/pyloric region. Additional medical devices as above. I personally reviewed the image(s)/study and resident interpretation as stated by Dr. Octavia Ragland MD. I agree with the findings as stated. This study was interpreted at [facility], [place], [place]. MACRO: None Signed by: Shalom Malone 10/27/2024 8:01 AM Dictation workstation: [id number] Normal [facility] Comment on above: Order Comment: RN to release order via task on Brain when patient is ready for x-ray confirmation of feeding tube placement. XR Abdomen Single viewon Radiology Study observation (narrative) [facility] Work Phone: XR CHEST 1 VIEWon 10-26-2024 XR CHEST 1 VIEW Interpreted By: Shalom Sheikh and [place] Lesley STUDY: XR ABDOMEN 1 VIEW; XR CHEST 1 VIEW; 10/26/2024 6:22 pm; 10/26/2024 7:28 pm INDICATION: Signs/Symptoms:post feeding tube placement; Signs/Symptoms:PNX followup. COMPARISON: Chest radiograph 10/26/2024 time stamped 2:58 p.m. Abdominal radiograph 06/13/2022 ACCESSION NUMBER(S): [id number]; [id number] ORDERING CLINICIAN: JASON SOLIZ FINDINGS: AP radiograph of the chest and AP radiograph of the abdomen were provided Interval placement of an enteric tube with tip projecting over the distal gastric body/pyloric region. Median sternotomy wires appear intact. Similar positioning of the left atrial appendage occlusion device. Left chest wall pacemaker similar positioning with leads overlying the right atrium and right ventricle. Prosthetic cardiac valve in stable positioning. CARDIOMEDIASTINAL SILHOUETTE: The cardiomediastinal silhouette is enlarged but stable in size and configuration. LUNGS: Small bilateral pleural effusions. Mild hazy opacities of the right lung base. No pneumothorax. ABDOMEN: Nonobstructive bowel-gas pattern in the visualized upper abdomen. Surgical cole over the right upper abdominal quadrant. BONES: No acute osseous abnormality. IMPRESSION: 1. Small bilateral pleural effusions with hazy opacities of the right lung base which may reflect atelectasis, edema, or infectious infiltrate. 2. Similar cardiomegaly. 3. Nonobstructive bowel-gas pattern in the visualized abdomen. 4. Interval placement of an enteric tube with tip projecting over the distal gastric body/pyloric region. Additional medical devices as above. I personally reviewed the image(s)/study and resident interpretation as stated by Dr. Octavia Ragland MD. I agree with the findings as stated. This study was interpreted at [place], [place]. MACRO: None Signed by: Shalom Malone 10/27/2024 8:01 AM Dictation workstation: [id number] [facility] XR CHEST 1 VIEW Interpreted By: Shalom Sheikh, STUDY: XR CHEST 1 VIEW INDICATION: Signs/Symptoms:PNX. COMPARISON: Earlier the same day ACCESSION NUMBER(S): [id number] ORDERING CLINICIAN: JASON SOLIZ FINDINGS: Previous suspected possible pneumothorax not definitively confirmed. Basilar edema with effusions worsened from prior. IMPRESSION: Previous suspected possible pneumothorax not definitively confirmed. Basilar edema with effusions worsened from prior. Signed by: Shalom Malone 10/27/2024 8:00 AM Dictation workstation: [id number] [facility] XR CHEST 1 VIEW Interpreted By: Carine Laura and Dulla Kireeti STUDY: XR CHEST 1 VIEW; 10/26/2024 9:30 am INDICATION: Signs/Symptoms:Remains with high O2 reqs. COMPARISON: Chest x-ray from 10/25/2024 ACCESSION NUMBER(S): [id number] ORDERING CLINICIAN: JASON SOLIZ FINDINGS: AP radiograph of the chest was provided. Median sternotomy changes. Left chest wall pacemaker/AICD with stable lead positioning. Left atrial appendage clip. CARDIOMEDIASTINAL SILHOUETTE: Cardiomediastinal silhouette is stable in size and configuration. LUNGS: Improvement in moderate left pleural effusion and stable right pleural effusion. Stable bibasilar opacities. There has been interval development of a vertical line at the left hemithorax which appears to be artifactual/and overlying skin fold, and there are peripheral lung markings. ABDOMEN: No remarkable upper abdominal findings. BONES: No acute osseous changes. IMPRESSION: 1. Interval development of vertical line of the left hemithorax, which has peripheral lung markings and therefore likely represents overlying skin fold/artifact. However pneumothorax can not be excluded and follow-up radiographs in 1-2 hours is recommended to assess resolution. 2. Improvement in left pleural effusion which is now small and stable right pleural effusion. 3. Stable bibasilar opacities which may represent atelectasis/edema/infecti on I personally reviewed the images/study and I agree with the findings as stated by Marine Kim MD, PGY-2 this study was interpreted at [facility], [place], [place]. MACRO: Marine Kim discussed the significance and urgency of this critical finding by epic chat with Dr Lal on 10/26/2024 at 10:21 am. (-RCF-) Findings: See findings. Signed by: Carine Key 10/26/2024 10:23 AM Dictation workstation: [id number] Normal [facility] XR Chest Single viewon 10-26 Radiology Study observation (narrative) [facility] Work Phone: Radiology Study observation (narrative) [facility] Work Phone: [facility] MM[facility]AL [facility] MM[facility]AL [facility] Work Phone: [facility] Work Phone: Radiology Study observation (narrative) [facility] Work Phone: C Sputumon 10-25-2024 Bacteria identified Respiratory culture Nom (Sput) Microbiology PROCEDURE: Sputum Culture [R1] SOURCE: Sputum BODY SITE: COLLECTED DATE/TIME: 10/23/2024 09:15 EST RECEIVED DATE/TIME: 10/23/2024 10:48 EST START DATE/TIME: 10/23/2024 10:49 EST FREE TEXT SOURCE: GLENDY MAHONEY, Grace PATTERSON MD, Grace FINAL REPORTS Final Report [] Verified Date/Time: 10/25/2024 11:14 EST 2+ Staphylococcus aureus Scant growth of Normal upper respiratory ant isolated STAINS Gram Stain Report [] Verified Date/Time: 10/24/2024 12:22 EST 2+ White Blood Cells 2+ Gram Positive Cocci Occasional Gram Positive Rods SUSCEPTIBILITY RESULTS __ LEGEND: S=Susceptible, N/R=Not Reported, Blank=Data not available, or drug not advisable or tested, I=Intermediate, ESBL=Extended spectrum beta-lactamase, R=Resistant, TFG=Thymidine-dependent strain, LILIANE=Beta-lactamase positive, TERESO=mcg/m;(mg/L), S*=Predicted susceptible interp, R*=Predicted resistant interp SA Antibiotic TERESO Dilutn TERESO Interp Amoxicillin/ <=4/2 S Clavulanate Ampicillin/ <=8/4 S Sulbactam Azithromycin <=2 S Cefazolin <=8 S Ceftaroline <=0.5 S Ciprofloxacin >2 R Clindamycin 0.5 S Erythromycin <=0.5 S Gentamicin <=4 S Levofloxacin 4 I Linezolid <=2 S Oxacillin <=0.25 S Penicillin <=0.03 S Rifampin <=1 S Tetracycline <=4 S Trimethoprim/ <=0.5/9.5 S Sulfa Vancomycin 1 S Performing Locations R1: This test was performed at: [facility], [address] [place] [address], [address] , , [facility] Comment on above: Performed By: #### 2 [id number] #### [facility] [address] [place] [address] CBC W Auto Differential pane l (Bld)on 10-25-2024 Basophils (Bld) [#/Vol] 0.03 10*3/uL [facility] Basophils/100 WBC (Bld) 0.6 % 0.0 - 2.0 % [facility] Eosinophils (Bld) [#/Vol] 0.08 10*3/uL [facility] Eosinophils/100 WBC (Bld) 1.7 % 0.0 - 6.0 % [facility] Erythrocyte distribution width (RBC) [Ratio] 14.6 % High 11.5 - 14.5 % [facility] Hematocrit (Bld) [Volume fraction] 34.8 % Low 41.0 - 52.0 % [facility] Hemoglobin (Bld) [Mass/Vol] 11.3 g/dL Low 13.5 - 17.5 g/dL [facility] Immature granulocytes (Bld) [#/Vol] 0.04 10*3/uL [facility] Immature granulocytes/100 WBC (Bld) 0.8 % 0.0 - 0.9 % [facility] Interpretation and review of laboratory results Abnormal [facility] Lymphocytes (Bld) [#/Vol] 0.54 10*3/uL Low [facility] Lymphocytes/100 WBC (Bld) 11.2 % 13.0 - 44.0 % [facility] MCH (RBC) [Entitic mass] 30 pg 26.0 - 34.0 pg [facility] MCHC (RBC) [Mass/Vol] 32.5 g/dL 32.0 - 36.0 g/dL [facility] MCV (RBC) [Entitic vol] 92 fL 80 - 100 fL [facility] Monocytes (Bld) [#/Vol] 0.72 10*3/uL [facility] Monocytes/100 WBC (Bld) 14.9 % 2.0 - 10.0 % [facility] Neutrophils (Bld) [#/Vol] 3.41 10*3/uL [facility] Neutrophils/100 WBC (Bld) 70.8 % 40.0 - 80.0 % [facility] Nucleated RBC/100 WBC (Bld) [Ratio] 0 % [facility] Platelets (Bld) [#/Vol] 119 10*3/uL Low [facility] RBC (Bld) [#/Vol] 3.77 10*6/uL [facility] WBC (Bld) [#/Vol] 4.8 10*3/uL [facility] Basophils (Bld) [#/Vol] 0.03 x10*3/uL Normal 0.00-0.10 [facility] Comment on above: Performed By: #### 2 4339-4 #### JAN Allen ([id number]) [facility] ([facility]) [address] [place] [address] Basophils/100 WBC (Bld) 0.6 % Normal 0.0-2.0 [facility] Comment on above: Performed By: #### 2 4339-4 #### JAN Allen ([id number]) [facility] ([facility]) [address] [place] [address] Eosinophils (Bld) [#/Vol] 0.08 x10*3/uL Normal 0.00-0.40 [facility] Comment on above: Performed By: #### 2 4339-4 #### JAN Allen ([id number]) [facility] ([facility]) [address] [place] [address] Eosinophils/100 WBC (Bld) 1.7 % Normal 0.0-6.0 [facility] Comment on above: Performed By: #### 2 4339-4 #### JAN Allen ([id number]) [facility] ([facility]) [address] [place] [address] Erythrocyte distribution width (RBC) [Ratio] 14.6 % High 11.5-14.5 [facility] Comment on above: Performed By: #### 2 4339-4 #### JAN Allen ([id number]) [facility] ([facility]) [address] [place] [address] Hematocrit (Bld) [Volume fraction] 34.8 % Low 41.0-52.0 [facility] Comment on above: Performed By: #### 2 4339-4 #### JAN Allen ([id number]) [facility] ([facility]) [address] [place] [address] Hemoglobin (Bld) [Mass/Vol] 11.3 g/dL Low 13.5-17.5 [facility] Comment on above: Performed By: #### 2 4339-4 #### JAN Allen ([id number]) [facility] ([facility]) [address] [place] [address] Immature granulocytes (Bld) [#/Vol] 0.04 x10*3/uL Normal 0.00-0.50 [facility] Comment on above: Performed By: #### 2 4339-4 #### JAN Allen ([id number]) [facility] ([facility]) [address] [place] [address] Immature granulocytes/100 WBC (Bld) 0.8 % Normal 0.0-0.9 [facility] Comment on above: Result Comment: Iman ture Granulocyte Count (IG) includes promyelocytes, myelocytes and metamyelocytes but does not include bands. Percent differential counts (%) should be interpreted in the context of the absolute cell counts (cells/UL). Performed By: #### 2 4339-4 #### JAN Allen ([id number]) [facility] ([facility]) [address] [place] [address] Lymphocytes (Bld) [#/Vol] 0.54 x10*3/uL Low 0.80-3.00 [facility] Comment on above: Performed By: #### 2 4339-4 #### JAN Allen ([id number]) [facility] ([facility]) [address] [place] [address] Lymphocytes/100 WBC (Bld) 11.2 % Normal 13.0-44.0 [facility] Comment on above: Performed By: #### 2 4339-4 #### JAN Allen ([id number]) [facility] ([facility]) [address] [place] [address] MCH (RBC) [Entitic mass] 30.0 pg Normal 26.0-34.0 [facility] Comment on above: Performed By: #### 2 4339-4 #### JAN Allen ([id number]) [facility] ([facility]) [address] [place] [address] MCHC (RBC) [Mass/Vol] 32.5 g/dL Normal 32.0-36.0 [facility] Comment on above: Performed By: #### 2 4339-4 #### JAN Allen ([id number]) [facility] ([facility]) [address] [place] [address] MCV (RBC) [Entitic vol] 92 fL Normal 80-100 [facility] Comment on above: Performed By: #### 2 4339-4 #### JAN Allen ([id number]) [facility] ([facility]) [address] [place] [address] Monocytes (Bld) [#/Vol] 0.72 x10*3/uL Normal 0.05-0.80 [facility] Comment on above: Performed By: #### 2 4339-4 #### JAN Allen ([id number]) [facility] ([facility]) [address] [place] [address] Monocytes/100 WBC (Bld) 14.9 % Normal 2.0-10.0 [facility] Comment on above: Performed By: #### 2 4339-4 #### JAN Allen ([id number]) [facility] ([facility]) [address] [place] [address] Neutrophils (Bld) [#/Vol] 3.41 x10*3/uL Normal 1.60-5.50 [facility] Comment on above: Result Comment: Perc ent differential counts (%) should be interpreted in the context of the absolute cell counts (cells/uL). Performed By: #### 2 4339-4 #### JAN Allen ([id number]) [facility] ([facility]) [address] [place] [address] Neutrophils/100 WBC (Bld) 70.8 % Normal 40.0-80.0 [facility] Comment on above: Performed By: #### 2 4339-4 #### JAN Allen ([id number]) [facility] ([facility]) [address] [place] [address] Nucleated RBC/100 WBC (Bld) [Ratio] 0.0 /100 WBCs Normal 0.0-0.0 [facility] Comment on above: Performed By: #### 2 4339-4 #### JAN Allen ([id number]) [facility] ([facility]) [address] [place] [address] Platelets (Bld) [#/Vol] 119 x10*3/uL Low 150-450 [facility] Comment on above: Performed By: #### 2 4339-4 #### JAN Allen ([id number]) [facility] ([facility]) [address] [place] [address] RBC (Bld) [#/Vol] 3.77 x10*6/uL Low 4.50-5.90 [facility] Comment on above: Performed By: #### 2 4339-4 #### JAN Allen ([id number]) [facility] ([facility]) [address] [place] [address] WBC (Bld) [#/Vol] 4.8 x10*3/uL Normal 4.4-11.3 [facility] Comment on above: Performed By: #### 2 4339-4 #### JAN Allen ([id number]) [facility] ([facility]) [address] [place] [address] Comprehensive metabolic 2000 panelon 10-25-2024 Albumin BCP dye [Mass/Vol] 2.5 g/dL Low 3.4 - 5.0 g/dL [facility] ALP [Catalytic activity/Vol] 49 U/L 33 - 136 U/L [facility] ALT With P-5'-P [Catalytic activity/Vol] 20 U/L 10 - 52 U/L [facility] Anion gap [Moles/Vol] 14 mmol/L 10 - 2 0 mmol/L [facility] AST With P-5'-P [Catalytic activity/Vol] 21 U/L 9 - 39 U/L [facility] Bilirubin [Mass/Vol] 2.1 mg/dL High 0.0 - 1 .2 mg/dL [facility] Calcium [Mass/Vol] 7.8 mg/dL Low 8.6 - 10. 6 mg/dL [facility] Chloride [Moles/Vol] 114 mmol/L High 98 - 10 7 mmol/L [facility] CO2 [Moles/Vol] 22 mmol/L 21 - 32 mmol/L [facility] Creatinine [Mass/Vol] 0.62 mg/dL 0.50 - 1.30 mg/dL [facility] eGFR - PINF [facility] Glucose [Mass/Vol] 98 mg/dL 74 - 99 mg/dL [facility] Interpretation and review of laboratory results Abnormal [facility] Potassium [Moles/Vol] 4.1 mmol/L 3.5 - 5.3 mmol/L [facility] Protein [Mass/Vol] 4.9 g/dL Low 6.4 - 8.2 g/dL [facility] Sodium [Moles/Vol] 146 mmol/L High 136 - 145 mmol/L [facility] Urea nitrogen [Mass/Vol] 30 mg/dL High 6 - 23 mg/dL [facility] Albumin BCP dye [Mass/Vol] 2.5 g/dL Low 3.4-5.0 [facility] Comment on above: Performed By: #### 2 4339-4 #### JAN Allen ([id number]) [facility] ([facility]) [address] [place] [address] ALP [Catalytic activity/Vol] 49 U/L Normal 33-136 [facility] Comment on above: Performed By: #### 2 4339-4 #### JAN Allen ([id number]) [facility] ([facility]) [address] [place] [address] ALT With P-5'-P [Catalytic activity/Vol] 20 U/L Normal 10-52 [facility] Comment on above: Result Comment: Alejandra ents treated with Sulfasalazine may generate falsely decreased results for ALT. Performed By: #### 2 4339-4 #### JAN Allen ([id number]) [facility] ([facility]) [address] [place] [address] Anion gap [Moles/Vol] 14 mmol/L Normal 10-20 [facility] Comment on above: Performed By: #### 2 4339-4 #### JAN Allen ([id number]) [facility] ([facility]) [address] [place] [address] AST With P-5'-P [Catalytic activity/Vol] 21 U/L Normal 9-39 [facility] Comment on above: Performed By: #### 2 4339-4 #### JAN Allen ([id number]) [facility] ([facility]) [address] [place] [address] Bilirubin [Mass/Vol] 2.1 mg/dL High 0.0-1.2 [facility] Comment on above: Performed By: #### 2 4339-4 #### JAN Allen ([id number]) [facility] ([facility]) [address] [place] [address] Calcium [Mass/Vol] 7.8 mg/dL Low 8.6-10.6 [facility] Comment on above: Performed By: #### 2 4339-4 #### JAN FREIRE L ([id number]) [facility] ([facility]) [address] [place] [address] Chloride [Moles/Vol] 114 mmol/L High 98-107 [facility] Comment on above: Performed By: #### 2 4339-4 #### JAN Allen ([id number]) [facility] ([facility]) [address] [place] [address] CO2 [Moles/Vol] 22 mmol/L Normal 21-32 [facility] Comment on above: Performed By: #### 2 4339-4 #### JAN Allen ([id number]) [facility] ([facility]) [address] [place] [address] Creatinine [Mass/Vol] 0.62 mg/dL Normal 0.50-1.30 [facility] Comment on above: Performed By: #### 2 4339-4 #### JAN Allen ([id number]) [facility] ([facility]) [address] [place] [address] GFR/1.73 sq M.predicted MDRD (S/P/Bld) [Vol rate/Area] mL/min/{1.73_m2} Normal >60 [facility] Comment on above: Result Comment: Calc ulations of estimated GFR are performed using the 2020 CKD-EPI Study Refit equation without the race variable for the IDMS-Traceable creatinine methods. https://jasn.asnjournals.org/content//ASN.24771 55196 Performed By: #### 2 4339-4 #### JAN Allen ([id number]) [facility] ([facility]) [address] [place] [address] Glucose [Mass/Vol] 98 mg/dL Normal 74-99 [facility] Comment on above: Performed By: #### 2 4339-4 #### JAN Allen ([id number]) [facility] ([facility]) [address] [place] [address] Potassium [Moles/Vol] 4.1 mmol/L Normal 3.5-5.3 [facility] Comment on above: Performed By: #### 2 4339-4 #### JAN Allen ([id number]) [facility] ([facility]) [address] [place] [address] Protein [Mass/Vol] 4.9 g/dL Low 6.4-8.2 [facility] Comment on above: Performed By: #### 2 4339-4 #### JAN Allen ([id number]) [facility] ([facility]) [address] [place] [address] Sodium [Moles/Vol] 146 mmol/L High 136-145 [facility] Comment on above: Performed By: #### 2 4339-4 #### JAN Allen ([id number]) [facility] ([facility]) [address] [place] [address] Urea nitrogen [Mass/Vol] 30 mg/dL High 6-23 [facility] Comment on above: Performed By: #### 2 4339-4 #### JAN FREIRE L ([id number]) [facility] ([facility]) [address] [place] [address] ECG 12-LEADon 10-25-2024 ECG 12-LEAD Ventricular Rate 123 Atrial Rate 101 QRS Duration 128 Q-T Interval 370 QTC Calculation(Bazett) 529 R Bath -30 T Bath -50 QRS Count 20 Q Onset 193 P Onset 112 P Offset 132 T Offset 378 QTC Fredericia 469 Diagnosis Atrial fibrillation with rapid ventricular response with premature ventricular or aberrantly conducted complexes Left axis deviation Right bundle branch block T wave abnormality, consider lateral ischemia Abnormal ECG When compared with ECG of 24-OCT-2024 10:20, Atrial fibrillation has replaced Electronic ventricular pacemaker Vent. rate has increased BY 53 BPM Confirmed by Hang Baires ([id number]) on 10/30/2024 9:56:29 AM Normal [facility] Gas and Carbon monoxide and Electrolytes panel (BldA)on 10-25-2024 Anion gap 4 (BldA) [Moles/Vol] 13 [facility] Base excess Calc (Bld) [Moles/Vol] -2.2000 mmol/L Low -2.0 - 3.0 mmol/L [facility] Calcium.ionized (BldA) [Moles/Vol] 1.15 mmol/L 1.10 - 1.33 mmol/L [facility] Chloride (BldA) [Moles/Vol] 112 mmol/L High 98 - 107 mmol/L [facility] CO2 (Bld) [Partial pressure] 28 mm[Hg] Low [facility] Glucose [Mass/Vol] 85 mg/dL 74 - 99 mg/dL [facility] HCO3 (Bld) [Moles/Vol] 20.4 mmol/L Low 22.0 - 26.0 mmol/L [facility] Hematocrit Est (Bld) [Volume fraction] 37 % Low 41.0 - 52.0 % [facility] Hemoglobin (Bld) [Mass/Vol] 12.3 g/dL Low 13.5 - 17.5 g/dL [facility] Inhaled oxygen concentration 60 % [facility] Interpretation and review of laboratory results Abnormal [facility] Lactate (BldA) [Moles/Vol] 1.4 mmol/L 0.4 - 2.0 mmol/L [facility] Oxygen (Bld) [Partial pressure] 88 mm[Hg] [facility] Oxyhemoglobin (BldA) [Mass fraction] 95.8 % 94.0 - 98.0 % [facility] pH (Bld) 7.47 [pH] High 7.38 - 7.42 pH [facility] Potassium (BldA) [Moles/Vol] 3.7 mmol/L 3.5 - 5.3 mmol/L [facility] Sodium (BldA) [Moles/Vol] 142 mmol/L 136 - 145 mmol/L [facility] Anion gap 4 (BldA) [Moles/Vol] 13 mmo/L Normal 10-25 [facility] Comment on above: Performed By: #### 2 4339-4 #### JAN Allen ([id number]) [facility] ([facility]) [address] [place] [address] Base excess Calc (Bld) [Moles/Vol] -2.2000 mmol/L Low -2.0-3.0 [facility] Comment on above: Performed By: #### 2 4339-4 #### JAN Allen ([id number]) [facility] ([facility]) [address] [place] [address] 66128 Calcium.ionized (BldA) [Moles/Vol] 1.15 mmol/L Normal 1.10-1.33 [facility] Comment on above: Performed By: #### 2 4339-4 #### JAN Allen ([id number]) [facility] ([facility]) [address] [place] [address] 94927 Chloride (BldA) [Moles/Vol] 112 mmol/L High 98-107 [facility] Comment on above: Performed By: #### 2 4339-4 #### JAN Allen ([id number]) [facility] ([facility]) [address] [place] [address] 44000 CO2 (Bld) [Partial pressure] 28 mm Hg Low 38-42 [facility] Comment on above: Performed By: #### 2 4339-4 #### JAN Allen ([id number]) [facility] ([facility]) [address] [place] [address] 35016 Glucose [Mass/Vol] 85 mg/dL Normal 74-99 [facility] Comment on above: Performed By: #### 2 4339-4 #### JAN Allen ([id number]) [facility] ([facility]) [address] [place] [address] 98844 HCO3 (Bld) [Moles/Vol] 20.4 mmol/L Low 22.0-26.0 [facility] Comment on above: Performed By: #### 2 4339-4 #### JAN Allen ([id number]) [facility] ([facility]) [id number] [place] [address] 64945 Hematocrit Est (Bld) [Volume fraction] 37.0 % Low 41.0-52.0 [facility] Comment on above: Performed By: #### 2 4339-4 #### JAN Allen ([id number]) [facility] ([facility]) [address] [place] [address] 69256 Hemoglobin (Bld) [Mass/Vol] 12.3 g/dL Low 13.5-17.5 [facility] Comment on above: Performed By: #### 2 4339-4 #### JAN Allen ([id number]) [facility] ([facility]) [address] [place] [address] 53976 Inhaled oxygen concentration 60 % Normal [facility] Comment on above: Performed By: #### 2 4339-4 #### JAN Allen ([id number]) [facility] ([facility]) [address] [place] [address] 72267 Lactate (BldA) [Moles/Vol] 1.4 mmol/L Normal 0.4-2.0 [facility] Comment on above: Performed By: #### 2 4339-4 #### JAN Allen ([id number]) [facility] ([facility]) [id number] [place] [address] 74016 Oxygen (Bld) [Partial pressure] 88 mm Hg Normal 85-95 [facility] Comment on above: Performed By: #### 2 4339-4 #### JAN Allen ([id number]) [facility] ([facility]) [address] [place] [address] 05152 Oxyhemoglobin (BldA) [Mass fraction] 95.8 % Normal 94.0-98.0 [facility] Comment on above: Performed By: #### 2 4339-4 #### JAN Allen ([id number]) [facility] ([facility]) [address] [place] [address] 60882 pH (Bld) 7.47 [pH] High 7.38-7.42 [facility] Comment on above: Performed By: #### 2 4339-4 #### JAN Allen ([id number]) [facility] ([facility]) [address] [place] [address] 71092 Potassium (BldA) [Moles/Vol] 3.7 mmol/L Normal 3.5-5.3 [facility] Comment on above: Performed By: #### 2 4339-4 #### JAN Allen ([id number]) [facility] ([facility]) [address] [place] [address] 50588 Sodium (BldA) [Moles/Vol] 142 mmol/L Normal 136-145 [facility] Comment on above: Performed By: #### 2 4339-4 #### JAN Allen ([id number]) [facility] ([facility]) [address] [place] [address] 28473 MRSA DNA LUIS+probe Ql (Nose) on 10-25-2024 Interpretation and review of laboratory results Normal [facility] MRSA DNA LUIS+probe Ql (Unsp spec) Not detected Not Detected [facility] Magnesiumon 10-25-2024 Magnesium [Mass/Vol] 1.98 mg/dL 1.60 - 2.40 mg/dL [facility] Magnesium [Mass/Vol] 1.98 mg/dL Normal 1.60-2.40 [facility] Comment on above: Performed By: #### 5 7021-8 #### JAN Allen ([id number]) [facility] ([facility]) [address] [place] [address] 09410 Magnesium [Mass/Vol] 1.82 mg/dL 1.60 - 2.40 mg/dL [facility] Magnesium [Mass/Vol] 1.82 mg/dL Normal 1.60-2.40 [facility] Comment on above: Performed By: #### 2 4339-4 #### JAN Allen ([id number]) [facility] ([facility]) [address] [place] [address] 08565 Magnesium [Mass/Vol]on 10-25 Interpretation and review of laboratory results Normal [facility] No Panel Informationon 10-25 [facility] Interpretation and review of laboratory results Normal [facility] Phosphateon 10-25-2024 Phosphate [Mass/Vol] 3.3 mg/dL Normal 2.5-4.9 [facility] Comment on above: Result Comment: The performance characteristics of phosphorus testing in heparinized plasma have been validated by the individual laboratory site where testing is performed. Testing on heparinized plasma is not approved by the FDA; however, such approval is not necessary. Performed By: #### 2 4339-4 #### JAN Allen ([id number]) [facility] ([facility]) [address] [place] [address] 79203 Phosphoruson 10-25-2024 Phosphate [Mass/Vol] 3.3 mg/dL 2.5 - 4 .9 mg/dL [facility] Renal function 2000 panelon 10-25-2024 Albumin BCP dye [Mass/Vol] 2.4 g/dL Low 3.4 - 5.0 g/dL [facility] Anion gap [Moles/Vol] 14 mmol/L 10 - 2 0 mmol/L [facility] Calcium [Mass/Vol] 7.7 mg/dL Low 8.6 - 10. 6 mg/dL [facility] Chloride [Moles/Vol] 115 mmol/L High 98 - 10 7 mmol/L [facility] CO2 [Moles/Vol] 21 mmol/L 21 - 32 mmol/L [facility] Creatinine [Mass/Vol] 0.78 mg/dL 0.50 - 1.30 mg/dL [facility] GFR/1.73 sq M.predicted among non-blacks MDRD (S/P/Bld) [Vol rate/Area] 89 mL/min/{1.73_m2} - PINF [facility] Glucose [Mass/Vol] 85 mg/dL 74 - 99 mg/dL [facility] Interpretation and review of laboratory results Abnormal [facility] Phosphate [Mass/Vol] 3.2 mg/dL 2.5 - 4 .9 mg/dL [facility] Potassium [Moles/Vol] 3.3 mmol/L Low 3.5 - 5.3 mmol/L [facility] Sodium [Moles/Vol] 147 mmol/L High 136 - 145 mmol/L [facility] Urea nitrogen [Mass/Vol] 36 mg/dL High 6 - 23 mg/dL [facility] Albumin BCP dye [Mass/Vol] 2.4 g/dL Low 3.4-5.0 [facility] Comment on above: Performed By: #### 5 7021-8 #### JAN Allen ([id number]) [facility] ([facility]) [address] [place] [address] 03582 Anion gap [Moles/Vol] 14 mmol/L Normal 10-20 [facility] Comment on above: Performed By: #### 5 7021-8 #### JAN Allen ([id number]) [facility] ([facility]) [address] [place] [address] 34816 Calcium [Mass/Vol] 7.7 mg/dL Low 8.6-10.6 [facility] Comment on above: Performed By: #### 5 7021-8 #### JAN Allen ([id number]) [facility] ([facility]) [address] [place] [address] 63419 Chloride [Moles/Vol] 115 mmol/L High 98-107 [facility] Comment on above: Performed By: #### 5 7021-8 #### JAN FREIRE L ([id number]) [facility] ([facility]) [address] [place] [address] 49900 CO2 [Moles/Vol] 21 mmol/L Normal 21-32 [facility] Comment on above: Performed By: #### 5 7021-8 #### JAN Allen ([id number]) [facility] ([facility]) [address] [place] [address] Creatinine [Mass/Vol] 0.78 mg/dL Normal 0.50-1.30 [facility] Comment on above: Performed By: #### 5 7021-8 #### JAN Allen ([id number]) [facility] ([facility]) [address] [place] [address] Glomerular filtration rate/1.73 sq M.predicted 89 mL/min/1.73m*2 Normal >60 [facility] Comment on above: Result Comment: Calc ulations of estimated GFR are performed using the 2020 CKD-EPI Study Refit equation without the race variable for the IDMS-Traceable creatinine methods. https://jasn.asnjournals.org/content/early//ASN.18496 62213 Performed By: #### 5 7021-8 #### JAN Allen ([id number]) [facility] ([facility]) [address] [place] [address] 55341 Glucose [Mass/Vol] 85 mg/dL Normal 74-99 [facility] Comment on above: Performed By: #### 5 7021-8 #### JAN Allen ([id number]) [facility] ([facility]) [address] [place] [address] 68135 Phosphate [Mass/Vol] 3.2 mg/dL Normal 2.5-4.9 [facility] Comment on above: Result Comment: The performance characteristics of phosphorus testing in heparinized plasma have been validated by the individual laboratory site where testing is performed. Testing on heparinized plasma is not approved by the FDA; however, such approval is not necessary. Performed By: #### 5 7021-8 #### JAN Allen ([id number]) [facility] ([facility]) [address] [place] [address] Potassium [Moles/Vol] 3.3 mmol/L Low 3.5-5.3 [facility] Comment on above: Performed By: #### 5 7021-8 #### JAN Allen ([id number]) [facility] ([facility]) [address] [place] [address] Sodium [Moles/Vol] 147 mmol/L High 136-145 [facility] Comment on above: Performed By: #### 5 7021-8 #### JAN Allen ([id number]) [facility] ([facility]) [address] [place] [address] Urea nitrogen [Mass/Vol] 36 mg/dL High 6-23 [facility] Comment on above: Performed By: #### 5 7021-8 #### JAN Allen ([id number]) [facility] ([facility]) [address] [place] [address] 21607 Staphylococcus aureus.methic illin resistant DNAon 10-25-2024 MRSA DNA LUIS+probe Ql (Nose) Staphylococcus aureus.methicillin resistant DNA Not Detected Normal Not Detected [facility] Comment on above: Order Comment: Sampl e type changed from arterial to venous to reflect order. Performed By: #### 2 4339-4 #### JAN Allen ([id number]) [facility] ([facility]) [address] [place] [address] 66155 XR CHEST 1 VIEWon 10-25-2024 XR CHEST 1 VIEW Interpreted By: Carine Laura, STUDY: XR CHEST 1 VIEW; 10/25/2024 12:50 pm INDICATION: Signs/Symptoms:hypoxia. COMPARISON: 10/24/2024 ACCESSION NUMBER(S): [id number] ORDERING CLINICIAN: JASON SOLIZ FINDINGS: AP radiograph of the chest was provided. Left atrial appendage closure device is in place. Postsurgical changes consistent with median sternotomy are seen. Left chest wall implantable pacemaker/defibrillator with leads projecting over the expected location of the right atrial appendage and right ventricle.. The ETT has been removed. CARDIOMEDIASTINAL SILHOUETTE: Cardiomediastinal silhouette is stable in size and configuration. LUNGS: There are are bibasilar airspace opacities, increasing on the right. There is blunting of bilateral costophrenic angles, nzdq-frugtex-awlm-right. No sizable pneumothorax. ABDOMEN: No remarkable upper abdominal findings. BONES: No acute osseous changes. IMPRESSION: 1. Worsening bibasilar infiltrates. Differential to include atelectasis/edema/infecti on. 2. Moderate left small right pleural effusion. 3. Medical devices as above. MACRO: None Signed by: Carine Key 10/25/2024 1:07 PM Dictation workstation: [id number] Normal [facility] XR Chest Single viewon 10-25 [facility] Work Phone: [facility] Work Phone: Radiology Study observation (narrative) [facility] Work Phone: Arterial Line Insertionon [facility] Work Phone: BMPon 10-24-2024 Creatinine [Mass/Vol] 0.6 mg/dL Normal 0.5-1.3 [facility] Comment on above: Performed By: #### 2 [id number] #### [facility] [address] [place] [address] Urea nitrogen/Creatinine [Mass ratio] 48 No Units High 10-20 [facility] Comment on above: Performed By: #### 2 [id number] #### [facility] [address] [place] [address] Anion gap [Moles/Vol] 10 mmol/L Normal 6-16 [facility] Comment on above: Performed By: #### 2 [id number] #### [facility] [address] [place] [address] Calcium [Mass/Vol] 8.4 mg/dL Low 8.9-11.1 [facility] Comment on above: Performed By: #### 2 [id number] #### [facility] [address] [place] [address] Chloride [Moles/Vol] 112 mmol/L High 101-111 [facility] Comment on above: Performed By: #### 2 [id number] #### [facility] [address] [place] [address] CO2 [Moles/Vol] 25 mmol/L Normal 21-31 [facility] Comment on above: Performed By: #### 2 [id number] #### [facility] [address] [place] [address] Glucose [Mass/Vol] 152 mg/dL Normal 55-199 [facility] Comment on above: Performed By: #### 2 [id number] #### [facility] [address] [place] [address] Potassium [Moles/Vol] 4.4 mmol/L Normal 3.5-5.3 [facility] Comment on above: Performed By: #### 2 [id number] #### [facility] [address] [place] [address] Sodium [Moles/Vol] 143 mmol/L Normal 135-145 [facility] Comment on above: Performed By: #### 2 [id number] #### [facility] [address] [place] [address] Urea nitrogen [Mass/Vol] 29 mg/dL High 5-21 [facility] Comment on above: Performed By: #### 2 [id number] #### [facility] [address] [place] [address] Bacteria identifiedon 2024 Bacteria identified Cx Nom (Bld) Test: Blood Culture Specimen Source: Arterial Line Specimen Type: Blood culture Specimen Date: 10/24/2024 1308 Result Date: 10/28/2024 1402 Result Status: Final result Abnormal: No Resulting Lab: [facility] [address] [place] [address] CULTURE No growth at 4 days - FINAL REPORT [facility] Comment on above: Performed By: #### 2 4339-4 #### JAN Allen ([id number]) [facility] ([facility]) [address] [place] [address] Blood Gas Art, with Lytes, G joanna, [place] 10-24-2024 a/A Ratio Art 33.70 % Normal >=0.80 [facility] Comment on above: Performed By: #### 4 [id number] #### [facility] [address] [place] [address] AaDO2 Art 152.5 mmHg High 5.0-15.0 [facility] Comment on above: Performed By: #### 4 [id number] #### [facility] [address] [place] [address] Allens Test Positive Normal [facility] Comment on above: Performed By: #### 4 [id number] #### [facility] [address] [place] [address] Base Excess Arterial -0.8 mmol/L Low >=2.8 [facility] Comment on above: Performed By: #### 4 [id number] #### [facility] [address] [place] [address] cCa2+ Art 4.69 mg/dL Normal 4.40-5.30 [facility] Comment on above: Performed By: #### 4 [id number] #### [facility] [address] [place] [address] cCl- Art 114.0 mmol/L High 101.0-111. 0 [facility] Comment on above: Performed By: #### 4 [id number] #### [facility] [address] [place] [address] cGlu Art 129 mg/dL High 55-99 [facility] Comment on above: Performed By: #### 4 [id number] #### [facility] [address] [place] [address] cK+ Art 3.7 mmol/L Normal 3.5-5.3 [facility] Comment on above: Performed By: #### 4 [id number] #### [facility] [address] [place] [address] cLac Art 1.2 mmol/L Normal .5-2.2 [facility] Comment on above: Performed By: #### 4 [id number] #### [facility] [address] [place] [id number] manager documentation+ Art 144.0 mmol/L Normal 135.0-145. 0 [facility] Comment on above: Performed By: #### 4 [id number] #### [facility] [address] [place] [address] Device Ventilator Normal [facility] Comment on above: Performed By: #### 4 [id number] #### [facility] [address] [place] [id number] Drawn by ROY Invalid Interpretation Code [facility] Comment on above: Performed By: #### 4 [id number] #### [facility] [address] [place] [address] FCOHb Art 1.2 % Low 1.5-4.9 [facility] Comment on above: Result Comment: Refe rence range Nonsmoker <1.5% Smoker <5.0% Heavy Smoker <9.0% Performed By: #### 4 [id number] #### [facility] [address] [place] [address] FIO2 BG 40.0 Invalid Interpretation Code [facility] Comment on above: Performed By: #### 4 [id number] #### [facility] [address] [place] [id number] FMetHb Art 0.5 % Normal 0.0-1.9 [facility] Comment on above: Performed By: #### 4 [id number] #### [facility] [address] [place] [address] FO2Hb Art 94.4 % Normal 93.0-100.0 [facility] Comment on above: Performed By: #### 4 [id number] #### [facility] [address] [place] [address] HCO3 (Bld) [Moles/Vol] 23.7 mmol/L Normal 22.0-26.0 [facility] Comment on above: Performed By: #### 4 [id number] #### [facility] [address] [place] [address] Hemoglobin (Bld) [Mass/Vol] 11.7 g/dL Low 12.0-17.0 [facility] Comment on above: Performed By: #### 4 [id number] #### [facility] [address] [place] [address] MECH. Rate 16 Invalid Interpretation Code [facility] Comment on above: Performed By: #### 4 [id number] #### [facility] [address] [place] [address] Oxygen saturation in Blood 96.0 % Normal 95.0-100.0 [facility] Comment on above: Performed By: #### 4 [id number] #### [facility] [address] [place] [address] P CO2 Arterial 38.2 mmHg Normal 35.0-45.0 [facility] Comment on above: Performed By: #### 4 [id number] #### [facility] [address] [place] [address] P O2 Arterial 77.4 mmHg Low 80.0-100.0 [facility] Comment on above: Performed By: #### 4 [id number] #### [facility] [address] [place] [address] PEEP 5 Invalid Interpretation Code [facility] Comment on above: Performed By: #### 4 [id number] #### [facility] [address] [place] [address] pH Arterial 7.402 Normal 7.350-7.45 0 [facility] Comment on above: Performed By: #### 4 [id number] #### [facility] [address] [place] [address] Sample Site L Radial Normal [facility] Comment on above: Performed By: #### 4 [id number] #### [facility] [address] [place] [address] Sample Type Arterial Draw Normal [facility] Comment on above: Performed By: #### 4 [id number] #### [facility] [address] [place] [address] SET Vt 450 Invalid Interpretation Code [facility] Comment on above: Performed By: #### 4 [id number] #### [facility] [address] [place] [address] Vent Mode ACVC Invalid Interpretation Code [facility] Comment on above: Performed By: #### 4 [id number] #### [facility] [address] [place] [address] a/A Ratio Art 47.10 % Normal >=0.80 [facility] Comment on above: Performed By: #### 4 [id number] #### [facility] [address] [place] [address] AaDO2 Art 128.0 mmHg High 5.0-15.0 [facility] Comment on above: Performed By: #### 4 [id number] #### [facility] [address] [place] [address] Allens Test Positive Normal [facility] Comment on above: Performed By: #### 4 [id number] #### [facility] [address] [place] [address] Base Excess Arterial -2.3 mmol/L Low >=2.8 [facility] Comment on above: Performed By: #### 4 [id number] #### [facility] [address] [place] [address] cCa2+ Art 4.99 mg/dL Normal 4.40-5.30 [facility] Comment on above: Performed By: #### 4 [id number] #### [facility] [address] [place] [address] cCl- Art 114.0 mmol/L High 101.0-111. 0 [facility] Comment on above: Performed By: #### 4 [id number] #### [facility] [address] [place] [address] cGlu Art 129 mg/dL High 55-99 [facility] Comment on above: Performed By: #### 4 [id number] #### [facility] [address] [place] [address] cK+ Art 3.6 mmol/L Normal 3.5-5.3 [facility] Comment on above: Performed By: #### 4 [id number] #### [facility] [address] [place] [address] cLac Art 1.3 mmol/L Normal .5-2.2 [facility] Comment on above: Performed By: #### 4 [id number] #### [facility] [address] [place] [address] manager documentation+ Art 145.0 mmol/L Normal 135.0-145. 0 [facility] [place] Comment on above: Performed By: #### 4 [id number] #### [facility] [address] [place] [address] Device Cannula Normal [facility] Comment on above: Performed By: #### 4 [id number] #### [facility] [address] [place] [address] Drawn by wmb Invalid Interpretation Code [facility] Comment on above: Performed By: #### 4 [id number] #### [facility] [address] [place] [address] FCOHb Art 1.0 % Low 1.5-4.9 [facility] Comment on above: Result Comment: Refe rence range Nonsmoker <1.5% Smoker <5.0% Heavy Smoker <9.0% Performed By: #### 4 [id number] #### [facility] [address] [place] [address] FIO2 BG 44.0 Invalid Interpretation Code [facility] Comment on above: Performed By: #### 4 [id number] #### [facility] [address] [place] [address] FMetHb Art 0.4 % Normal 0.0-1.9 [facility] Comment on above: Performed By: #### 4 [id number] #### [facility] [address] [place] [address] FO2Hb Art 97.0 % Normal 93.0-100.0 [facility] Comment on above: Performed By: #### 4 [id number] #### [facility] [address] [place] [address] HCO3 (Bld) [Moles/Vol] 22.5 mmol/L Normal 22.0-26.0 [facility] Comment on above: Performed By: #### 4 [id number] #### [facility] [address] [place] [address] Hemoglobin (Bld) [Mass/Vol] 12.1 g/dL Normal 12.0-17.0 [facility] Comment on above: Performed By: #### 4 [id number] #### [facility] [address] [place] [address] Oxygen saturation in Blood 98.3 % Normal 95.0-100.0 [facility] Comment on above: Performed By: #### 4 [id number] #### [facility] [address] [place] [address] P CO2 Arterial 52.3 mmHg High 35.0-45.0 [facility] Comment on above: Performed By: #### 4 [id number] #### [facility] [address] [place] [address] P O2 Arterial 114.0 mmHg High 80.0-100.0 [facility] Comment on above: Performed By: #### 4 [id number] #### [facility] [address] [place] [address] pH Arterial 7.286 Low 7.350-7.45 0 [facility] Comment on above: Performed By: #### 4 [id number] #### [facility] [address] [place] [address] Sample Site L Radial Normal [facility] Comment on above: Performed By: #### 4 [id number] #### [facility] [address] [place] [address] Sample Type Arterial Draw Normal [facility] Comment on above: Performed By: #### 4 [id number] #### [facility] [address] [place] [address] CBC W Auto Differential pane l (Bld)on 10-24-2024 Basophils (Bld) [#/Vol] 0.03 10*3/uL [facility] Basophils/100 WBC (Bld) 0.6 % 0.0 - 2.0 % [facility] Eosinophils (Bld) [#/Vol] 0.12 10*3/uL [facility] Eosinophils/100 WBC (Bld) 2.4 % 0.0 - 6.0 % [facility] Erythrocyte distribution width (RBC) [Ratio] 14.6 % High 11.5 - 14.5 % [facility] Hematocrit (Bld) [Volume fraction] 31.1 % Low 41.0 - 52.0 % [facility] Hemoglobin (Bld) [Mass/Vol] 10.8 g/dL Low 13.5 - 17.5 g/dL [facility] Immature granulocytes (Bld) [#/Vol] 0.03 10*3/uL [facility] Immature granulocytes/100 WBC (Bld) 0.6 % 0.0 - 0.9 % [facility] Interpretation and review of laboratory results Abnormal [facility] Lymphocytes (Bld) [#/Vol] 0.5 10*3/uL Low [facility] Lymphocytes/100 WBC (Bld) 10 % 13.0 - 44.0 % [facility] MCH (RBC) [Entitic mass] 30.3 pg 26.0 - 34.0 pg [facility] MCHC (RBC) [Mass/Vol] 34.7 g/dL 32.0 - 36.0 g/dL [facility] MCV (RBC) [Entitic vol] 87 fL 80 - 100 fL [facility] Monocytes (Bld) [#/Vol] 0.67 10*3/uL [facility] Monocytes/100 WBC (Bld) 13.3 % 2.0 - 10.0 % [facility] Neutrophils (Bld) [#/Vol] 3.67 10*3/uL [facility] Neutrophils/100 WBC (Bld) 73.1 % 40.0 - 80.0 % [facility] Nucleated RBC/100 WBC (Bld) [Ratio] 0 % [facility] Platelets (Bld) [#/Vol] 112 10*3/uL Low [facility] RBC (Bld) [#/Vol] 3.56 10*6/uL [facility] WBC (Bld) [#/Vol] 5 10*3/uL [facility] Basophils (Bld) [#/Vol] 0.03 x10*3/uL Normal 0.00-0.10 [facility] Comment on above: Performed By: #### 5 7021-8 #### JAN Allen ([id number]) [facility] ([facility]) [address] [place] [address] Basophils/100 WBC (Bld) 0.6 % Normal 0.0-2.0 [facility] Comment on above: Performed By: #### 5 7021-8 #### JAN Allen ([id number]) [facility] ([facility]) [address] [place] [address] Eosinophils (Bld) [#/Vol] 0.12 x10*3/uL Normal 0.00-0.40 [facility] Comment on above: Performed By: #### 5 7021-8 #### JAN Allen ([id number]) [facility] ([facility]) [address] [place] [address] Eosinophils/100 WBC (Bld) 2.4 % Normal 0.0-6.0 [facility] Comment on above: Performed By: #### 5 7021-8 #### JAN Allen ([id number]) [facility] ([facility]) [address] [place] [address] Erythrocyte distribution width (RBC) [Ratio] 14.6 % High 11.5-14.5 [facility] Comment on above: Performed By: #### 5 7021-8 #### JAN Allen ([id number]) [facility] ([facility]) [address] [place] [address] Hematocrit (Bld) [Volume fraction] 31.1 % Low 41.0-52.0 [facility] Comment on above: Performed By: #### 5 7021-8 #### JAN Allen ([id number]) [facility] ([facility]) [address] [place] [address] Hemoglobin (Bld) [Mass/Vol] 10.8 g/dL Low 13.5-17.5 [facility] Comment on above: Performed By: #### 5 7021-8 #### JAN Allen ([id number]) [facility] ([facility]) [address] [place] [address] Immature granulocytes (Bld) [#/Vol] 0.03 x10*3/uL Normal 0.00-0.50 [facility] Comment on above: Performed By: #### 5 7021-8 #### JAN Allen ([id number]) [facility] ([facility]) [address] [place] [address] Immature granulocytes/100 WBC (Bld) 0.6 % Normal 0.0-0.9 [facility] Comment on above: Result Comment: Iman ture Granulocyte Count (IG) includes promyelocytes, myelocytes and metamyelocytes but does not include bands. Percent differential counts (%) should be interpreted in the context of the absolute cell counts (cells/UL). Performed By: #### 5 7021-8 #### JAN Allen ([id number]) [facility] ([facility]) [address] [place] [address] Lymphocytes (Bld) [#/Vol] 0.50 x10*3/uL Low 0.80-3.00 [facility] Comment on above: Performed By: #### 5 7021-8 #### JAN Allen ([id number]) [facility] ([facility]) [address] [place] [address] Lymphocytes/100 WBC (Bld) 10.0 % Normal 13.0-44.0 [facility] Comment on above: Performed By: #### 5 7021-8 #### JAN Allen ([id number]) [facility] ([facility]) [address] [place] [address] MCH (RBC) [Entitic mass] 30.3 pg Normal 26.0-34.0 [facility] Comment on above: Performed By: #### 5 7021-8 #### JAN FREIRE L ([id number]) [facility] ([facility]) [address] [place] [address] MCHC (RBC) [Mass/Vol] 34.7 g/dL Normal 32.0-36.0 [facility] Comment on above: Performed By: #### 5 7021-8 #### JAN Allen ([id number]) [facility] ([facility]) [address] [place] [address] MCV (RBC) [Entitic vol] 87 fL Normal 80-100 [facility] Comment on above: Performed By: #### 5 7021-8 #### JAN Allen ([id number]) [facility] ([facility]) [address] [place] [address] Monocytes (Bld) [#/Vol] 0.67 x10*3/uL Normal 0.05-0.80 [facility] Comment on above: Performed By: #### 5 7021-8 #### JAN Allen ([id number]) [facility] ([facility]) [address] [place] [address] Monocytes/100 WBC (Bld) 13.3 % Normal 2.0-10.0 [facility] Comment on above: Performed By: #### 5 7021-8 #### JAN FREIRE L ([id number]) [facility] ([facility]) [address] [place] [address] Neutrophils (Bld) [#/Vol] 3.67 x10*3/uL Normal 1.60-5.50 [facility] Comment on above: Result Comment: Perc ent differential counts (%) should be interpreted in the context of the absolute cell counts (cells/uL). Performed By: #### 5 7021-8 #### JAN Allen ([id number]) [facility] ([facility]) [address] [place] [address] Neutrophils/100 WBC (Bld) 73.1 % Normal 40.0-80.0 [facility] Comment on above: Performed By: #### 5 7021-8 #### JAN Allen ([id number]) [facility] ([facility]) [address] [place] [address] Nucleated RBC/100 WBC (Bld) [Ratio] 0.0 /100 WBCs Normal 0.0-0.0 [facility] Comment on above: Performed By: #### 5 7021-8 #### JAN Allen ([id number]) [facility] ([facility]) [address] [place] [address] Platelets (Bld) [#/Vol] 112 x10*3/uL Low 150-450 [facility] Comment on above: Performed By: #### 5 7021-8 #### JAN Allen ([id number]) [facility] ([facility]) [address] [place] [address] RBC (Bld) [#/Vol] 3.56 x10*6/uL Low 4.50-5.90 [facility] Comment on above: Performed By: #### 5 7021-8 #### JAN Allen ([id number]) [facility] ([facility]) [id number] [place] [address] WBC (Bld) [#/Vol] 5.0 x10*3/uL Normal 4.4-11.3 [facility] Comment on above: Performed By: #### 5 7021-8 #### JAN Allen ([id number]) [facility] ([facility]) [address] [place] [address] CBC w/ Auto Diffon 5 Basophils/100 WBC (Bld) 0.4 % Normal 0.0-2.0 [facility] Comment on above: Performed By: #### 2 [id number] #### [facility] [address] [place] [address] Basophils/Leukocytes Auto (Bld) [Pure # fraction] 0.0 E9/L Normal 0.0-0.2 [facility] Comment on above: Performed By: #### 2 [id number] #### [facility] [address] [place] [address] Eosinophils (Bld) [#/Vol] 0.1 E9/L Normal 0.0-0.5 [facility] Comment on above: Performed By: #### 2 [id number] #### [facility] [address] [place] [address] Eosinophils/100 WBC (Bld) 1.4 % Normal 0.0-8.0 [facility] Comment on above: Performed By: #### 2 [id number] #### [facility] [address] [place] [address] Erythrocyte distribution width (RBC) [Ratio] 15.6 % High 10.9-14.2 [facility] Comment on above: Performed By: #### 2 [id number] #### [facility] [address] [place] [address] Hematocrit (Bld) [Volume fraction] 36.3 % Low 37.7-49.0 [facility] Comment on above: Performed By: #### 2 [id number] #### [facility] [address] [place] [address] Hemoglobin (Bld) [Mass/Vol] 12.2 g/dL Low 13.5-17.5 [facility] Comment on above: Performed By: #### 2 [id number] #### [facility] [address] [place] [address] Lymphocytes (Bld) [#/Vol] 1.8 E9/L Normal 1.0-4.0 [facility] Comment on above: Performed By: #### 2 [id number] #### [facility] [address] [place] [address] Lymphocytes/100 WBC (Bld) 20.7 % Normal 14.0-50.0 [facility] Comment on above: Performed By: #### 2 [id number] #### [facility] [address] [place] [address] MCH (RBC) [Entitic mass] 31.2 pg Normal 27.0-34.0 [facility] Comment on above: Performed By: #### 2 [id number] #### [facility] [address] [place] [address] MCHC (RBC) [Mass/Vol] 33.6 g/dL Normal 31.4-36.0 [facility] Comment on above: Performed By: #### 2 [id number] #### [facility] [address] [place] [address] MCV (RBC) [Entitic vol] 92.8 fL Normal 80.0-100.0 [facility] Comment on above: Performed By: #### 2 [id number] #### [facility] [address] [place] [address] Monocytes (Bld) [#/Vol] 1.1 E9/L High 0.2-1.0 [facility] Comment on above: Performed By: #### 2 [id number] #### [facility] [address] [place] [address] Neutrophils (Bld) [#/Vol] 5.7 E9/L Normal 2.0-7.5 [facility] Comment on above: Performed By: #### 2 [id number] #### [facility] [address] [place] [address] Neutrophils/100 WBC (Bld) 64.7 % Normal 36.0-75.0 [facility] Comment on above: Performed By: #### 2 [id number] #### [facility] [address] [place] [address] Platelet mean volume (Bld) [Entitic vol] 8.9 fL Normal 6.4-10.8 [facility] Comment on above: Performed By: #### 2 [id number] #### [facility] [address] [place] [address] Platelets (Bld) [#/Vol] 124.0 E9/L Low 150.0-500. 0 [facility] Comment on above: Performed By: #### 2 [id number] #### [facility] [address] [place] [address] RBC (Bld) [#/Vol] 3.9 E12/L Low 4.3-5.9 [facility] Comment on above: Performed By: #### 2 [id number] #### [facility] [address] [place] [address] WBC corrected for nucl RBC Auto (Bld) [#/Vol] 8.9 E9/L Normal 4.0-11.0 [facility] Comment on above: Performed By: #### 2 [id number] #### [facility] [address] [place] [address] CHEMISTRYOrdered By: SYSTEM SYSTEM on 10-24-2024 Troponin HS 63.40 pg/mL Invalid Interpretation Code 15.90 - 38.40 pg/mL [facility] Comment on above: Result Comment: Crit ical Result Verified by Repeat Analysis Critical Result I_TnIHS:63.4 Called to and read back by: PAMELA TYSON at: 10/24/2024 07:53:13 by:ESSIE Interpretive Data: T he 95% CI (Confidence Interval) PPV (Positive Predictive Value) for myocardial infarction in females is 38 pg/mL, in males 51 pg/mL. The results should be used in conjunction with clinical conditions of myocardial infarction. (Access High Sensitivity Troponin I Instructions For Use, [place], April 2018) Triglyceride [Mass/Vol] 80 mg/dL Normal <=149mg/dL [facility] Troponin HS 57.20 pg/mL Invalid Interpretation Code 15.90 - 38.40 pg/mL [facility] Comment on above: Result Comment: Crit ical Result Verified by Repeat Analysis Critical Result I_TnIHS:57.2 Called to and read back by: RILEY BUENO/ICU at: 10/24/2024 05:14:35 by:CARLOS TYLER Interpretive Data: T he 95% CI (Confidence Interval) PPV (Positive Predictive Value) for myocardial infarction in females is 38 pg/mL, in males 51 pg/mL. The results should be used in conjunction with clinical conditions of myocardial infarction. (Access High Sensitivity Troponin I Instructions For Use, [place], April 2018) Anion gap [Moles/Vol] 10 mmol/L Normal 6 - 16 mEq/L [facility] Calcium [Mass/Vol] 8.4 mg/dL Low 8.9 - 11. 1 mg/dL [facility] Chloride [Moles/Vol] 112 mmol/L High 101 - 1 11 mmol/L [facility] CO2 [Moles/Vol] 25 mmol/L Normal 21 - 31 mmol/L [facility] Creatinine [Mass/Vol] 0.6 mg/dL Normal 0.5 - 1.3 mg/dL [facility] eGFR 96 mL/min/1.73 m2 Normal >=59mL/min /1.73 m2 [facility] Glucose [Mass/Vol] 152 mg/dL Normal 55 - 199 mg/dL [facility] Lactic Acid Lvl 1.7 mmol/L Normal 0.5 - 2.2 mmol/L [facility] Magnesium [Mass/Vol] 1.9 mg/dL Normal 1.3 - 2 .4 mg/dL [facility] Potassium [Moles/Vol] 4.4 mmol/L Normal 3.5 - 5.3 mmol/L [facility] Sodium [Moles/Vol] 143 mmol/L Normal 135 - 145 mmol/L [facility] Total CK 293 [iU]/d High 14 - 261 Int._Unit/ L [facility] Troponin HS 31.50 pg/mL Normal 15.90 - 38.40 pg/mL [facility] Comment on above: Interpretive Data: T he 95% CI (Confidence Interval) PPV (Positive Predictive Value) for myocardial infarction in females is 38 pg/mL, in males 51 pg/mL. The results should be used in conjunction with clinical conditions of myocardial infarction. (Access High Sensitivity Troponin I Instructions For Use, [place], April 2018) Troponin HS 40.50 pg/mL High 15.90 - 38.40 pg/mL [facility] Comment on above: Interpretive Data: T he 95% CI (Confidence Interval) PPV (Positive Predictive Value) for myocardial infarction in females is 38 pg/mL, in males 51 pg/mL. The results should be used in conjunction with clinical conditions of myocardial infarction. (Access High Sensitivity Troponin I Instructions For Use, [place], April 2018) Urea nitrogen [Mass/Vol] 29 mg/dL High 5 - 21 mg/dL [facility] Urea nitrogen/Creatinine [Mass ratio] 48 mg/mg High 10 - 20 [facility] CHEMISTRYOrdered By: Lab ROP User on 10-24-2024 Glucose [Mass/Vol] 121 mg/dL High 55 - 99 mg/dL [facility] POC Subsection Comment on above: Result Comment: Armin JOSUE POC Username KENYA POLLOCK Invalid Interpretation Code [facility] P[facility] Subsection Sodium [Moles/Vol] 974211136029 mmol/L Invalid Interpretation Code [facility] P[facility] Subsection Sodium [Moles/Vol] 169018523 mmol/L Invalid Interpretation Code [facility] POC Subsection POC Username ALICJA RESENDIZ Invalid Interpretation Code [facility] POC Subsection Sodium [Moles/Vol] [id number] mmol/L Invalid Interpretation Code [facility] POC Subsection CKon 10-24-2024 Total CK 293 Int._Unit/L High 14-261 [facility] Comment on above: Performed By: #### 2 [id number] #### [facility] [address] [place] [address] Capillary Glucose POCon 09-27 Glucose [Mass/Vol] 121 mg/dL High 55-99 [facility] Comment on above: Result Comment: Armin JOSUE Performed By: #### 2 [id number] #### [facility] [address] [place] [address] Capillary Glucose POCOrdered By: Lab ANTONIOUser on 10-24-2024 Glucose [Mass/Vol] 100 mg/dL High 55-99 [facility] P OC Subsection Comment on above: Result Comment: Armin JOSUE Performed By: #### 2 [id number] #### [facility] [address] [place] [address] Cardiac device check - Inpat ienton 10-24-2024 Radiology Study observation (narrative) [facility] Work Phone: Comprehensive metabolic 2000 panelon 10-24-2024 Albumin BCP dye [Mass/Vol] 2.7 g/dL Low 3.4 - 5.0 g/dL [facility] ALP [Catalytic activity/Vol] 53 U/L 33 - 136 U/L [facility] ALT With P-5'-P [Catalytic activity/Vol] 23 U/L 10 - 52 U/L [facility] Anion gap [Moles/Vol] 12 mmol/L 10 - 2 0 mmol/L [facility] AST With P-5'-P [Catalytic activity/Vol] 27 U/L 9 - 39 U/L [facility] Bilirubin [Mass/Vol] 2.2 mg/dL High 0.0 - 1 .2 mg/dL [facility] Calcium [Mass/Vol] 7.9 mg/dL Low 8.6 - 10. 6 mg/dL [facility] Chloride [Moles/Vol] 111 mmol/L High 98 - 10 7 mmol/L [facility] CO2 [Moles/Vol] 24 mmol/L 21 - 32 mmol/L [facility] Creatinine [Mass/Vol] 0.56 mg/dL 0.50 - 1.30 mg/dL [facility] eGFR - PINF [facility] Glucose [Mass/Vol] 125 mg/dL High 74 - 99 mg/dL [facility] Interpretation and review of laboratory results Abnormal [facility] Potassium [Moles/Vol] 3.6 mmol/L 3.5 - 5.3 mmol/L [facility] Protein [Mass/Vol] 5 g/dL Low 6.4 - 8.2 g/dL [facility] Sodium [Moles/Vol] 143 mmol/L 136 - 145 mmol/L [facility] Urea nitrogen [Mass/Vol] 28 mg/dL High 6 - 23 mg/dL [facility] Albumin BCP dye [Mass/Vol] 2.7 g/dL Low 3.4-5.0 [facility] Comment on above: Performed By: #### 2 4323-8 #### JAN Allen ([id number]) [facility] ([facility]) [address] [place] [address] ALP [Catalytic activity/Vol] 53 U/L Normal 33-136 [facility] Comment on above: Performed By: #### 2 4323-8 #### JAN Allen ([id number]) [facility] ([facility]) [address] [place] [address] ALT With P-5'-P [Catalytic activity/Vol] 23 U/L Normal 10-52 [facility] Comment on above: Result Comment: Alejandra ents treated with Sulfasalazine may generate falsely decreased results for ALT. Performed By: #### 2 4323-8 #### JAN Allen ([id number]) [facility] ([facility]) [address] [place] [address] Anion gap [Moles/Vol] 12 mmol/L Normal 10-20 [facility] Comment on above: Performed By: #### 2 4323-8 #### JAN Allen ([id number]) [facility] ([facility]) [address] [place] [address] AST With P-5'-P [Catalytic activity/Vol] 27 U/L Normal 9-39 [facility] Comment on above: Performed By: #### 2 4323-8 #### JAN Allen ([id number]) [facility] ([facility]) [address] [place] [address] Bilirubin [Mass/Vol] 2.2 mg/dL High 0.0-1.2 [facility] Comment on above: Performed By: #### 2 4323-8 #### JAN Allen ([id number]) [facility] ([facility]) [address] [place] [address] Calcium [Mass/Vol] 7.9 mg/dL Low 8.6-10.6 [facility] Comment on above: Performed By: #### 2 4323-8 #### JAN Allen ([id number]) [facility] LAB ([facility]) [id number] [place] [address] 31624 Chloride [Moles/Vol] 111 mmol/L High 98-107 [facility] Comment on above: Performed By: #### 2 4323-8 #### JAN Allen ([id number]) [facility] ([facility]) [address] [place] [address] CO2 [Moles/Vol] 24 mmol/L Normal 21-32 [facility] Comment on above: Performed By: #### 2 4323-8 #### JAN Allen ([id number]) [facility] ([facility]) [address] [place] [address] 96024 Creatinine [Mass/Vol] 0.56 mg/dL Normal 0.50-1.30 [facility] Comment on above: Performed By: #### 2 4323-8 #### JAN Allen ([id number]) [facility] ([facility]) [address] [place] [address] 72457 GFR/1.73 sq M.predicted MDRD (S/P/Bld) [Vol rate/Area] mL/min/{1.73_m2} Normal >60 [facility] Comment on above: Result Comment: Calc ulations of estimated GFR are performed using the 2020 CKD-EPI Study Refit equation without the race variable for the IDMS-Traceable creatinine methods. https://jasn.asnjournals.org/content/early//ASN.14487 17636 Performed By: #### 2 4323-8 #### JAN Allen ([id number]) [facility] ([facility]) [address] [place] [address] 63944 Glucose [Mass/Vol] 125 mg/dL High 74-99 [facility] Comment on above: Performed By: #### 2 4323-8 #### JAN Allen ([id number]) [facility] ([facility]) [address] [place] [address] 96724 Potassium [Moles/Vol] 3.6 mmol/L Normal 3.5-5.3 [facility] Comment on above: Performed By: #### 2 4323-8 #### JAN Allen ([id number]) [facility] ([facility]) [address] [place] [address] Protein [Mass/Vol] 5.0 g/dL Low 6.4-8.2 [facility] Comment on above: Performed By: #### 2 4323-8 #### JAN CARLSONER L ([id number]) [facility] ([facility]) [address] [place] [address] Sodium [Moles/Vol] 143 mmol/L Normal 136-145 [facility] Comment on above: Performed By: #### 2 4323-8 #### JAN CARLSONER L ([id number]) [facility] ([facility]) [address] [place] [address] Urea nitrogen [Mass/Vol] 28 mg/dL High 6-23 [facility] Comment on above: Performed By: #### 2 4323-8 #### JAN FREIRE L ([id number]) [facility] ([facility]) [address] [place] [address] 56381 ECG 12-LEADon 10-24-2024 ECG 12-LEAD Ventricular Rate 70 Atrial Rate 70 QRS Duration 164 Q-T Interval 506 QTC Calculation(Bazett) 546 R Bath -65 T Bath 103 QRS Count 11 Q Onset 196 T Offset 449 QTC Fredericia 532 Diagnosis Ventricular-paced rhythm Abnormal ECG When compared with ECG of 09-JUL-2022 13:39, Electronic ventricular pacemaker has replaced Atrial fibrillation Confirmed by Hang Baires ([id number]) on 11/09/2024 9:17:21 AM Normal [facility] EEGon 10-24-2024 EEG EEG This is a routine electroencephalogram performed on an 84-year-old male using standard 10/20 lead placement and a [employer] system. All data were obtained digitally and are available for reformatting and remontage. There is continuous slow activity in the 1-4 hertz delta range and 10-20 microvolt amplitude range recorded in a generalized pattern throughout the record. There is superimposed beta activity in the 6-8 hertz range and 20-30 microvolt amplitude range intermixed throughout the record. There is occasional beta activity in the 15-20 hertz range intermixed throughout the record. There is no discernible posterior dominant rhythm which differentiates itself from the generalized slowing. There is no epileptiform activity recorded during the record. There are no seizures recorded during the record. There is no photic driving or abnormal waveforms recorded with photic stimulation performed at multiple frequencies. IMPRESSION: This is an abnormal electroencephalogram due to continuous slow generalized activity consistent with a severe diffuse encephalopathy. Sarah Monroy M.D. ca Dictated: 10/20/2024 [id number] Typed: 10/23/2024 Normal [facility] Comment on above: Result Comment: Elec tronically Signed By: Porfirio MAHONEY, Sarah\.br\Date and Time Signed: 10/24/24 10:12 EST Extra Blueon 10-24-2024 Tube Collected Plasma Yes Invalid Interpretation Code [facility] Comment on above: Performed By: #### 1 [id number] #### [facility] Laboratory [address] [place] [address] Extra Fidel 10-24-2024 WB Tube Collected Yes Invalid Interpretation Code [facility] Comment on above: Performed By: #### 1 [id number] #### [facility] Laboratory [address] [place] [address] WB Tube Collected Yes Invalid Interpretation Code [facility] Comment on above: Performed By: #### 1 [id number] #### [facility] Laboratory [address] [place] [address] FT Blood GasesOrdered By: Fr pasquale Roy on 10-24-2024 a/A Ratio Art 33.70 % Normal >=0.80% [facility] Resp Auto SS AaDO2 Art 152.5 mm[Hg] High 5.0 - 15.0 mmHg [facility] Resp Auto SS Allens Test Positive (10/24/24 3:10 AM) Normal [facility] Resp Auto SS Base Excess Arterial -0.8 mmol/L Low >=2.8mm ol/ L [facility] Resp Auto SS cCa2+ Art 4.69 mg/dL Normal 4.40 - 5.30 mg/dL [facility] Resp Auto SS cCl- Art 114.0 mmol/L High 101.0 - 111.0 mmol/L [facility] Resp Auto SS cGlu Art 129 mg/dL High 55 - 99 mg/dL [facility] Resp Auto SS cK+ Art 3.7 mmol/L Normal 3.5 - 5.3 mmol/L [facility] Resp Auto SS cLac Art 1.2 mmol/L Normal 0.5 - 2.2 mmol/L [facility] Resp Auto SS manager documentation+ Art 144.0 mmol/L Normal 135.0 - 145.0 mmol/L [facility] Resp Auto SS Device Ventilator (10/24/24 3:10 AM) Normal [facility] Resp Auto SS Drawn by MANUELA Invalid Interpretation Code [facility] Resp Auto SS FCOHb Art 1.2 % Low 1.5 - 4.9 % [facility] Resp Auto SS Comment on above: Interpretive Data: R eference range Nonsmoker <1.5% Smoker <5.0% Heavy Smoker <9.0% FMetHb Art 0.5 % Normal 0.0 - 1.9 % [facility] Resp Auto SS FO2Hb Art 94.4 % Normal 93.0 - 100.0 % [facility] Resp Auto SS HCO3 (Bld) [Moles/Vol] 23.7 mmol/L Normal 22.0 - 26.0 mmol/L [facility] Resp Auto SS Hemoglobin (Bld) [Mass/Vol] 11.7 g/dL Low 12.0 - 17.0 gm/dL [facility] Resp Auto SS P CO2 Arterial 38.2 mm[Hg] Normal 35.0 - 45.0 mmHg [facility] Resp Auto SS P O2 Arterial 77.4 mm[Hg] Low 80.0 - 100.0 mmHg [facility] Resp Auto SS pH (Bld) 7.402 [pH] Normal 7.350 - 7.450 [facility] Resp Auto SS Sample Site L Radial (10/24/24 3:10 AM) Normal [facility] Resp Auto SS Sample Type Arterial Draw (10/24/24 3:10 AM) Normal [facility] Resp Auto SS Sodium [Moles/Vol] 5 mmol/L Invalid Interpretation Code [facility] Resp Auto SS Sodium [Moles/Vol] 16 mmol/L Invalid Interpretation Code [facility] Resp Auto SS Sodium [Moles/Vol] 450 mmol/L Invalid Interpretation Code [facility] Resp Auto SS Sodium [Moles/Vol] 40.0 mmol/L Invalid Interpretation Code [facility] Resp Auto SS Vent Mode ACVC Invalid Interpretation Code [facility] Resp Auto SS FT Blood GasesOrdered By: Alfonzo Malin on 10-24-2024 a/A Ratio Art 47.10 % Normal >=0.80% [facility] Resp Auto SS AaDO2 Art 128.0 mm[Hg] High 5.0 - 15.0 mmHg [facility] Resp Auto SS Allens Test Positive (10/24/24 12:10 AM) Normal [facility] Resp Auto SS Base Excess Arterial -2.3 mmol/L Low >=2.8mm ol/ L [facility] Resp Auto SS cCa2+ Art 4.99 mg/dL Normal 4.40 - 5.30 mg/dL [facility] Resp Auto SS cCl- Art 114.0 mmol/L High 101.0 - 111.0 mmol/L [facility] Resp Auto SS cGlu Art 129 mg/dL High 55 - 99 mg/dL [facility] Resp Auto SS cK+ Art 3.6 mmol/L Normal 3.5 - 5.3 mmol/L [facility] Resp Auto SS cLac Art 1.3 mmol/L Normal 0.5 - 2.2 mmol/L [facility] Resp Auto SS manager documentation+ Art 145.0 mmol/L Normal 135.0 - 145.0 mmol/L [facility] Resp Auto SS Device Cannula (10/24/24 12:10 AM) Normal [facility] Resp Auto SS Drawn by wmb Invalid Interpretation Code [facility] Resp Auto SS FCOHb Art 1.0 % Low 1.5 - 4.9 % [facility] Resp Auto SS Comment on above: Interpretive Data: R eference range Nonsmoker <1.5% Smoker <5.0% Heavy Smoker <9.0% FMetHb Art 0.4 % Normal 0.0 - 1.9 % [facility] Resp Auto SS FO2Hb Art 97.0 % Normal 93.0 - 100.0 % [facility] Resp Auto SS HCO3 (Bld) [Moles/Vol] 22.5 mmol/L Normal 22.0 - 26.0 mmol/L [facility] Resp Auto SS Hemoglobin (Bld) [Mass/Vol] 12.1 g/dL Normal 12.0 - 17.0 gm/dL [facility] Resp Auto SS P CO2 Arterial 52.3 mm[Hg] High 35.0 - 45.0 mmHg [facility] Resp Auto SS P O2 Arterial 114.0 mm[Hg] High 80.0 - 100.0 mmHg [facility] Resp Auto SS pH (Bld) 7.286 [pH] Low 7.350 - 7.450 [facility] Resp Auto SS Sample Site L Radial (10/24/24 12:10 AM) Normal [facility] Resp Auto SS Sample Type Arterial Draw (10/24/24 12:10 AM) Normal [facility] Resp Auto SS Sodium [Moles/Vol] 44.0 mmol/L Invalid Interpretation Code [facility] Resp Auto SS Gas and Carbon monoxide and Electrolytes panel (BldA)on 10-24-2024 Anion gap 4 (BldA) [Moles/Vol] 10 [facility] Base excess Calc (Bld) [Moles/Vol] -1.2000 mmol/L -2.0 - 3.0 mmol/L [facility] Calcium.ionized (BldA) [Moles/Vol] 1.13 mmol/L 1.10 - 1.33 mmol/L [facility] Chloride (BldA) [Moles/Vol] 111 mmol/L High 98 - 107 mmol/L [facility] CO2 (Bld) [Partial pressure] 33 mm[Hg] Low [facility] Glucose [Mass/Vol] 116 mg/dL High 74 - 99 mg/dL [facility] HCO3 (Bld) [Moles/Vol] 22.4 mmol/L 22.0 - 26.0 mmol/L [facility] Hematocrit Est (Bld) [Volume fraction] 34 % Low 41.0 - 52.0 % [facility] Hemoglobin (Bld) [Mass/Vol] 11.3 g/dL Low 13.5 - 17.5 g/dL [facility] Inhaled oxygen concentration 60 % [facility] Interpretation and review of laboratory results Abnormal [facility] Lactate (BldA) [Moles/Vol] 1.2 mmol/L 0.4 - 2.0 mmol/L [facility] Oxygen (Bld) [Partial pressure] 142 mm[Hg] High [facility] Oxyhemoglobin (BldA) [Mass fraction] 97.5 % 94.0 - 98.0 % [facility] pH (Bld) 7.44 [pH] High 7.38 - 7.42 pH [facility] Potassium (BldA) [Moles/Vol] 4.7 mmol/L 3.5 - 5.3 mmol/L [facility] Sodium (BldA) [Moles/Vol] 139 mmol/L 136 - 145 mmol/L [facility] Anion gap 4 (BldA) [Moles/Vol] 10 mmo/L Normal 10-25 [facility] Comment on above: Performed By: #### 9 3685-6 #### JAN Allen ([id number]) [facility] ([facility]) [address] [place] [address] 05335 Base excess Calc (Bld) [Moles/Vol] -1.2000 mmol/L Normal -2.0-3.0 [facility] Comment on above: Performed By: #### 9 3685-6 #### JAN Allen ([id number]) [facility] ([facility]) [address] [place] [address] 42152 Calcium.ionized (BldA) [Moles/Vol] 1.13 mmol/L Normal 1.10-1.33 [facility] Comment on above: Performed By: #### 9 7965-6 #### JAN Allen ([id number]) [facility] ([facility]) [address] [place] [address] 36629 Chloride (BldA) [Moles/Vol] 111 mmol/L High 98-107 [facility] Comment on above: Performed By: #### 9 3685-6 #### JAN Allen ([id number]) [facility] ([facility]) [address] [place] [address] 51782 CO2 (Bld) [Partial pressure] 33 mm Hg Low 38-42 [facility] Comment on above: Performed By: #### 9 3685-6 #### JAN Allen ([id number]) [facility] ([facility]) [address] [place] [address] 13807 Glucose [Mass/Vol] 116 mg/dL High 74-99 [facility] Comment on above: Performed By: #### 9 3685-6 #### JAN Allen ([id number]) [facility] ([facility]) [address] [place] [address] 51162 HCO3 (Bld) [Moles/Vol] 22.4 mmol/L Normal 22.0-26.0 [facility] Comment on above: Performed By: #### 9 3685-6 #### JAN Allen ([id number]) [facility] ([facility]) [address] [place] [address] 79367 Hematocrit Est (Bld) [Volume fraction] 34.0 % Low 41.0-52.0 [facility] Comment on above: Performed By: #### 9 3685-6 #### JAN Allen ([id number]) [facility] ([facility]) [address] [place] [address] 02860 Hemoglobin (Bld) [Mass/Vol] 11.3 g/dL Low 13.5-17.5 [facility] Comment on above: Performed By: #### 9 3685-6 #### JAN Allen ([id number]) [facility] ([facility]) [address] [place] [address] 52781 Inhaled oxygen concentration 60 % Normal [facility] Comment on above: Performed By: #### 9 3685-6 #### JAN Allen ([id number]) [facility] ([facility]) [address] [place] [address] 33511 Lactate (BldA) [Moles/Vol] 1.2 mmol/L Normal 0.4-2.0 [facility] Comment on above: Performed By: #### 9 3685-6 #### JAN Allen ([id number]) [facility] ([facility]) [address] [place] [address] 84539 Oxygen (Bld) [Partial pressure] 142 mm Hg High 85-95 [facility] Comment on above: Performed By: #### 9 3685-6 #### JAN Allen ([id number]) [facility] ([facility]) [address] [place] [address] 60742 Oxyhemoglobin (BldA) [Mass fraction] 97.5 % Normal 94.0-98.0 [facility] Comment on above: Performed By: #### 9 3685-6 #### JAN Allen ([id number]) [facility] ([facility]) [address] [place] [address] 22594 pH (Bld) 7.44 [pH] High 7.38-7.42 [facility] Comment on above: Performed By: #### 9 3685-6 #### JAN Allen ([id number]) [facility] ([facility]) [address] [place] [address] 25471 Potassium (BldA) [Moles/Vol] 4.7 mmol/L Normal 3.5-5.3 [facility] Comment on above: Performed By: #### 9 3685-6 #### JAN Allen ([id number]) [facility] ([facility]) [address] [place] [address] 21120 Sodium (BldA) [Moles/Vol] 139 mmol/L Normal 136-145 [facility] Comment on above: Performed By: #### 9 3685-6 #### JAN Allen ([id number]) [facility] ([facility]) [address] [place] [address] 48132 Gas panel (BldV)Ordered By: Rima Knight on 10-24-2024 Anion gap 4 (BldV) [Moles/Vol] 9 mmol/L Low 10.0 - 25.0 mmol/L [facility] Base excess Calc (BldV) [Moles/Vol] -0.5000 mmol/L -2.0 - 3.0 mmol/L [facility] Calcium.ionized (BldV) [Moles/Vol] 0.99 mmol/L Low 1.10 - 1.33 mmol/L [facility] Chloride (BldV) [Moles/Vol] 111 mmol/L High 98 - 107 mmol/L [facility] CO2 (BldV) [Partial pressure] 33 mm[Hg] Low [facility] Glucose [Mass/Vol] 121 mg/dL High 74 - 99 mg/dL [facility] HCO3 (Bld) [Moles/Vol] 22.9 mmol/L 22.0 - 26.0 mmol/L [facility] Hematocrit Est (Bld) [Volume fraction] 40 % Low 41.0 - 52.0 % [facility] Hemoglobin (Bld) [Mass/Vol] 13.2 g/dL Low 13.5 - 17.5 g/dL [facility] Inhaled oxygen concentration 40 % [facility] Interpretation and review of laboratory results Abnormal [facility] Lactate (BldV) [Moles/Vol] 1.3 mmol/L 0.4 - 2.0 mmol/L [facility] Oxygen (BldV) [Partial pressure] 56 mm[Hg] High [facility] Oxygen saturation in Venous blood 88 % High 45 - 75 % [facility] Oxyhemoglobin (BldV) [Mass fraction] 86.3 % High 45.0 - 75.0 % [facility] pH (BldV) 7.45 [pH] High 7.33 - 7.43 pH [facility] Potassium (BldV) [Moles/Vol] 3.6 mmol/L 3.5 - 5.3 mmol/L [facility] Sodium (BldV) [Moles/Vol] 139 mmol/L 136 - 145 mmol/L [facility] Gas panel (BldV)on 5 Anion gap 4 (BldV) [Moles/Vol] 9.0 mmol/L Low 10.0-25.0 [facility] Comment on above: Order Comment: Sampl e type changed from arterial to venous to reflect order. Performed By: #### 2 4339-4 #### JAN Allen ([id number]) [facility] ([facility]) [address] [place], [place] [address] Base excess Calc (BldV) [Moles/Vol] -0.5000 mmol/L Normal -2.0-3.0 [facility] Comment on above: Order Comment: Sampl e type changed from arterial to venous to reflect order. Performed By: #### 2 4339-4 #### JAN Allen ([id number]) [facility] ([facility]) [address] [place] [address] 67944 Calcium.ionized (BldV) [Moles/Vol] 0.99 mmol/L Low 1.10-1.33 [facility] Comment on above: Order Comment: Sampl e type changed from arterial to venous to reflect order. Performed By: #### 2 4339-4 #### JAN Allen ([id number]) [facility] ([facility]) [address] [place] [address] 96868 Chloride (BldV) [Moles/Vol] 111 mmol/L High 98-107 [facility] Comment on above: Order Comment: Sampl e type changed from arterial to venous to reflect order. Performed By: #### 2 4339-4 #### JAN Allen ([id number]) [facility] ([facility]) [address] [place] [address] 20672 CO2 (BldV) [Partial pressure] 33 mm Hg Low 41-51 [facility] Comment on above: Order Comment: Sampl e type changed from arterial to venous to reflect order. Performed By: #### 2 4339-4 #### JAN Allen ([id number]) [facility] ([facility]) [address] [place] [address] 80432 Glucose [Mass/Vol] 121 mg/dL High 74-99 [facility] Comment on above: Order Comment: Sampl e type changed from arterial to venous to reflect order. Performed By: #### 2 4339-4 #### JAN Allen ([id number]) [facility] ([facility]) [address] [place] [address] 88335 HCO3 (Bld) [Moles/Vol] 22.9 mmol/L Normal 22.0-26.0 [facility] Comment on above: Order Comment: Sampl e type changed from arterial to venous to reflect order. Performed By: #### 2 4339-4 #### JAN Allen ([id number]) [facility] ([facility]) [address] [place] [address] 03502 Hematocrit Est (Bld) [Volume fraction] 40.0 % Low 41.0-52.0 [facility] Comment on above: Order Comment: Sampl e type changed from arterial to venous to reflect order. Performed By: #### 2 4339-4 #### JAN Allen ([id number]) [facility] ([facility]) [address] [place] [address] 48494 Hemoglobin (Bld) [Mass/Vol] 13.2 g/dL Low 13.5-17.5 [facility] Comment on above: Order Comment: Sampl e type changed from arterial to venous to reflect order. Performed By: #### 2 4339-4 #### JAN Allen ([id number]) [facility] ([facility]) [address] [place] [address] 02955 Inhaled oxygen concentration 40 % Normal [facility] Comment on above: Order Comment: Sampl e type changed from arterial to venous to reflect order. Performed By: #### 2 4339-4 #### JAN Allen ([id number]) [facility] ([facility]) [address] [place] [address] 33259 Lactate (BldV) [Moles/Vol] 1.3 mmol/L Normal 0.4-2.0 [facility] Comment on above: Order Comment: Sampl e type changed from arterial to venous to reflect order. Performed By: #### 2 4339-4 #### JAN Allen ([id number]) [facility] ([facility]) [address] [place] [address] 71298 Oxygen (BldV) [Partial pressure] 56 mm Hg High 35-45 [facility] Comment on above: Order Comment: Sampl e type changed from arterial to venous to reflect order. Performed By: #### 2 4339-4 #### JAN Allen ([id number]) [facility] ([facility]) [address] [place] [address] 21865 Oxygen saturation in Venous blood 88 % High 45-75 [facility] Comment on above: Order Comment: Sampl e type changed from arterial to venous to reflect order. Performed By: #### 2 4339-4 #### JAN Allen ([id number]) [facility] ([facility]) [address] [place] [address] 65024 Oxyhemoglobin (BldV) [Mass fraction] 86.3 % High 45.0-75.0 [facility] Comment on above: Order Comment: Sampl e type changed from arterial to venous to reflect order. Performed By: #### 2 4339-4 #### JAN Allen ([id number]) [facility] ([facility]) [address] [place] [address] 27433 pH (BldV) 7.45 [pH] High 7.33-7.43 [facility] Comment on above: Order Comment: Sampl e type changed from arterial to venous to reflect order. Performed By: #### 2 4339-4 #### JAN Allen ([id number]) [facility] ([facility]) [address] [place] [address] 85409 Potassium (BldV) [Moles/Vol] 3.6 mmol/L Normal 3.5-5.3 [facility] Comment on above: Order Comment: Sampl e type changed from arterial to venous to reflect order. Performed By: #### 2 4339-4 #### JAN Allen ([id number]) [facility] ([facility]) [address] [place] [address] 90817 Sodium (BldV) [Moles/Vol] 139 mmol/L Normal 136-145 [facility] Comment on above: Order Comment: Sampl e type changed from arterial to venous to reflect order. Performed By: #### 2 4339-4 #### JAN Allen ([id number]) [facility] ([facility]) [address] [place] [address] 40929 Glucose Test strip manual (B ld) [Mass/Vol]on 10-24-2024 Glucose [Mass/Vol] 107 mg/dL High 74 - 99 mg/dL [facility] Interpretation and review of laboratory results Abnormal [facility] Glucose [Mass/Vol] 107 mg/dL High 74-99 [facility] Comment on above: Performed By: #### 2 4339-4 #### JAN Allen ([id number]) [facility] ([facility]) [address] [place] [address] 70389 Glucose [Mass/Vol] 118 mg/dL High 74 - 99 mg/dL [facility] Interpretation and review of laboratory results Abnormal [facility] Glucose [Mass/Vol] 118 mg/dL High 74-99 [facility] Comment on above: Performed By: #### 2 341-6 #### JAN Allen ([id number]) [facility] ([facility]) [address] [place], [place] [address] Glucose [Mass/Vol] 133 mg/dL High 74 - 99 mg/dL [facility] Interpretation and review of laboratory results Abnormal [facility] Glucose [Mass/Vol] 133 mg/dL High 74-99 [facility] Comment on above: Performed By: #### 2 341-6 #### JAN Allen ([id number]) [facility] ([facility]) [address] [place] [address] HEMATOLOGYOrdered By: SYSTEM SYSTEM on 10-24-2024 Basophils/100 WBC (Bld) 0.4 % Normal 0.0 - 2.0 % Remisol Heme Basophils/Leukocytes Auto (Bld) [Pure # fraction] 0.0 E9/L Normal 0.0 - 0.2 E9/L Remisol Heme Eosinophils (Bld) [#/Vol] 0.1 E9/L Normal 0.0 - 0.5 E9/L Remisol Heme Eosinophils/100 WBC (Bld) 1.4 % Normal 0.0 - 8.0 % Remisol Heme Erythrocyte distribution width (RBC) [Ratio] 15.6 % High 10.9 - 14.2 % Remisol Heme Hematocrit (Bld) [Volume fraction] 36.3 % Low 37.7 - 49.0 % Remisol Heme Hemoglobin (Bld) [Mass/Vol] 12.2 g/dL Low 13.5 - 17.5 gm/dL Remisol Heme Lymphocytes (Bld) [#/Vol] 1.8 E9/L Normal 1.0 - 4.0 E9/L Remisol Heme Lymphocytes/100 WBC (Bld) 20.7 % Normal 14.0 - 50.0 % Remisol Heme MCH (RBC) [Entitic mass] 31.2 pg Normal 27.0 - 34.0 pg Remisol Heme MCHC (RBC) [Mass/Vol] 33.6 g/dL Normal 31.4 - 36.0 gm/dL Remisol Heme MCV (RBC) [Entitic vol] 92.8 fL Normal 80.0 - 100.0 fL Remisol Heme Monocytes (Bld) [#/Vol] 1.1 E9/L High 0.2 - 1.0 E9/L Remisol Heme Monocytes/100 WBC (Bld) 12.8 % Normal 4.0 - 14.0 % Remisol Heme Neutrophils (Bld) [#/Vol] 5.7 E9/L Normal 2.0 - 7.5 E9/L Remisol Heme Neutrophils/100 WBC (Bld) 64.7 % Normal 36.0 - 75.0 % Remisol Heme Platelet mean volume (Bld) [Entitic vol] 8.9 fL Normal 6.4 - 10.8 fL Remisol Heme Platelets (Bld) [#/Vol] 124.0 E9/L Low 150.0 - 500.0 E9/L Remisol Heme RBC (Bld) [#/Vol] 3.9 E12/L Low 4.3 - 5.9 E12/L Remisol Heme WBC corrected for nucl RBC Auto (Bld) [#/Vol] 8.9 E9/L Normal 4.0 - 11.0 E9/L Remisol Heme Interdisciplinary Note - John e Manageron 10-24-2024 Interdisciplinary Note - Cafeteria Table Attendant Interdisciplinary Note - Cafeteria Table Attendant Patient was transported to this AM by mobile ICU per family request. Normal [facility] Comment on above: Result Comment: Elec tronically Signed By: Janis GARZA, Kizzy\.isabell\Date and Time Signed: 10/24/24 09:56 EST Interdisciplinary Note - Judith n 10-24-2024 Interdisciplinary Note - OT Interdisciplinary Note - OT OT order received 10/23/24. However, pt was re-intubated 10/24/24 and is pending transfer to for a higher level of care. DC inpatient OT orders d/t a decline in medical status and pending transfer to OSH. Normal [facility] Lactic Acidon 10-24-2024 Lactic Acid Lvl 1.7 mmol/L Normal 0.5-2.2 [facility] Comment on above: Performed By: #### 2 [id number] #### [facility] Laboratory [address] [place] [address] Magnesiumon 10-24-2024 Magnesium [Mass/Vol] 2.07 mg/dL 1.60 - 2.40 mg/dL [facility] Magnesium [Mass/Vol] 2.07 mg/dL Normal 1.60-2.40 [facility] Comment on above: Performed By: #### 1 [id number] #### JAN Allen ([id number]) [facility] ([facility]) [address] [place], [place] [address] Magnesium [Mass/Vol] 1.9 mg/dL Normal 1.3-2.4 [facility] Comment on above: Performed By: #### 2 [id number] #### [facility] Laboratory [address] [place] [address] Magnesium [Mass/Vol]on 10-24 Interpretation and review of laboratory results Normal [facility] No Panel Informationon 10-24 [facility] TRANSTHORACIC ECHO (TTE) COM PLETEon 10-24-2024 TRANSTHORACIC ECHO (TTE) COMPLETE [facility], [address] [place] [address] and TRANSTHORACIC ECHOCARDIOGRAM REPORT Patient Name: BRAVO Radford Physician: [id number] Monty Vyas MD Study Date: 10/24/2024 Ordering Provider: [id number] JASON SOLIZ MRN/PID: [id number] Fellow: Nurse: Date of /Age: 5 1940 Orthodontic Band Maker: Karen linton RDCS Gender assigned at M Additional Staff: : Height: 182.88 cm Admit Date: Weight: 74.84 kg Admission Status: Inpatient - STAT BSA / BMI: 1.96 m2 / 22.38 kg/m2 Blood Pressure: 78/57 mmHg Department Location: [facility] Study Type: TRANSTHORACIC ECHO (TTE) COMPLETE Diagnosis/ICD: Cardiac arrhythmia, unspecified-I49.9 Indication: concern for new arrhythmia/ VT from OSH CPT Code: Echo Complete w Full Doppler-26324 Patient History: Pertinent History: S/p CABG x3, [...] LA Area A2C: 43.4 cm2 LA Major [place] A4C: 6.6 cm LA Major [place] A2C: 7.4 cm RIGHT ATRIUM: Normal Ranges: RA Area A4C: 29.3 cm2 AORTA MEASUREMENTS: Normal Ranges: Ao Sinus, d: 3.70 cm (2.1-3.5cm) Asc Ao, d: 3.50 cm (2.1-3.4cm) (more content not included)... [facility] Triglycerideson 10-24-2024 Triglyceride [Mass/Vol] 80 mg/dL Normal <=149 [facility] Comment on above: Order Comment: Recom mended if patient on propofol > 72 hours. Performed By: #### 2 [id number] #### [facility] Laboratory [address] [place] [address] Tropinin I.cardiac panel Hig h sensitivity methodon 10-24-2024 Interpretation and review of laboratory results Abnormal [facility] Interpretation and review of laboratory results Abnormal [facility] Troponin 0 Hr.on 10-24-2024 Troponin HS 31.50 pg/mL Normal 15.90-38.4 0 [facility] Comment on above: Result Comment: The 95% CI (Confidence Interval) PPV (Positive Predictive Value) for myocardial infarction in females is 38 pg/mL, in males 51 pg/mL. The results should be used in conjunction with clinical conditions of myocardial infarction. (Access High Sensitivity Troponin I Instructions For Use, [employer], April 2018) Performed By: #### 1 [id number] #### [facility] Laboratory [address] [place] [address] Troponin 1 Hr.on 10-24-2024 Troponin HS 40.50 pg/mL High 15.90-38.4 0 [facility] Comment on above: Result Comment: The 95% CI (Confidence Interval) PPV (Positive Predictive Value) for myocardial infarction in females is 38 pg/mL, in males 51 pg/mL. The results should be used in conjunction with clinical conditions of myocardial infarction. (Access High Sensitivity Troponin I Instructions For Use, [employer], April 2018) Performed By: #### 1 [id number] #### [facility] Laboratory [address] [place] [address] Troponin 3 Hr.on 10-24-2024 Troponin HS 57.20 pg/mL Abnormal 15.90-38.4 0 [facility] Comment on above: Result Comment: Crit ical Result Verified by Repeat Analysis Critical Result I_TnIHS:57.2 Called to and read back by: RILEY BUENO/ICU at: 10/24/2024 05:14:35 by:CARLOS TYLER The 95% CI (Confidence Interval) PPV (Positive Predictive Value) for myocardial infarction in females is 38 pg/mL, in males 51 pg/mL. The results should be used in conjunction with clinical conditions of myocardial infarction. ([employer] High Sensitivity Troponin I Instructions For Use, [employer], April 2018) Performed By: #### 1 [id number] #### [facility] Laboratory [address] [place] [address] Troponin 6 Hr.on 10-24-2024 Troponin HS 63.40 pg/mL Abnormal 15.90-38.4 0 [facility] Comment on above: Result Comment: Crit ical Result Verified by Repeat Analysis Critical Result I_TnIHS:63.4 Called to and read back by: PAMELA TYSON at: 10/24/2024 07:53:13 by:ESSIE The 95% CI (Confidence Interval) PPV (Positive Predictive Value) for myocardial infarction in females is 38 pg/mL, in males 51 pg/mL. The results should be used in conjunction with clinical conditions of myocardial infarction. ([employer] High Sensitivity Troponin I Instructions For Use, [employer], April 2018) Performed By: #### 1 [id number] #### [facility] Laboratory [address] [place] [address] Troponin I, High Sensitivity on 10-24-2024 Tropinin I.cardiac panel High sensitivity method 77 ng/L High 0 - 53 ng/L [facility] Tropinin I.cardiac panel High sensitivity method 66 ng/L High 0 - 53 ng/L [facility] Troponin I.cardiac panelon 0 10-24-2024 Tropinin I.cardiac panel High sensitivity method 66 ng/L High 0-53 [facility] Comment on above: Order Comment: Less than 99th percentile of normal range cutoff- Female and children under 18 years old <35 ng/L; Male <54 ng/L: Negative Repeat testing should be performed if clinically indicated. Female and children under 18 years old 35-120 ng/L; Male 54-120 ng/L: Consistent with possible cardiac damage and possible increased clinical risk. Serial measurements may help to assess extent of myocardial damage. >120 ng/L: Consistent with cardiac damage, increased clinical risk and myocardial infarction. Serial measurements may help assess extent of myocardial damage. NOTE: Children less than 1 year old may have higher baseline troponin levels and results should be interpreted in conjunction with the overall clinical context. NOTE: Troponin I testing is performed using a different testing methodology at [facility] than at other [facility]. Direct result comparisons should only be made within the same method. Performed By: #### 8 9577-1 #### JAN Allen ([id number]) [facility] ([facility]) [id number] [place] [address] Tropinin I.cardiac panel High sensitivity method 77 ng/L High 0-53 [facility] Comment on above: Order Comment: Sampl e type changed from arterial to venous to reflect order. Performed By: #### 2 4339-4 #### JAN Allen ([id number]) [facility] ([facility]) [address] [place], [place] [address] US Heart TransthoracicOrdere d By: Monty Vyas on 10-24-2024 Aortic Valve Area by Continuity of Peak Velocity 2.68 cm2 [facility] Work Phone: [phone] Aortic Valve Area by Continuity of VTI 2.57 cm2 [facility] Work Phone: [phone] AV mn grad 4 mmHg [facility] Work Phone: [phone] AV pk grad 6 mmHg [facility] Work Phone: [phone] AV pk celina 1.21 m/s [facility] Work Phone: [phone] LA vol index A/L 82 ml/m2 [facility]: [phone] LV A4C EF 39 [facility] Work Phone: [phone] LV EF 40 % [facility] Work Phone: [phone] LVIDd 5.8 cm [facility] Work Phone: [phone] LVOT diam 2.3 cm [facility] Work Phone: [phone] RV free wall pk S' 11 cm/s [facility] Work Phone: [phone] RVSP 57.2 mmHg [facility] Work Phone: [phone] Tricuspid annular plane systolic excursion 1.4 cm [facility] Work Phone: [facility] Work Phone: US Heart Transthoracicon SYNGO [facility] Work Phone: XR CHEST 1 VIEWon 10-24-2024 XR CHEST 1 VIEW Interpreted By: Carine Laura, and Julio Hawthorne STUDY: XR CHEST 1 VIEW; 10/24/2024 11:38 am INDICATION: Signs/Symptoms:intubated new admit. COMPARISON: Chest x-ray from 08/23/2023 ACCESSION NUMBER(S): [id number] ORDERING CLINICIAN: JASON SOLIZ FINDINGS: AP radiograph of the chest was provided. Endotracheal tube terminates 4.9 cm above the ese. Left chest wall AICD/pacemaker with stable lead positioning. Left atrial appendage clip. Median sternotomy changes. CARDIOMEDIASTINAL SILHOUETTE: Cardiomediastinal silhouette is stable in size and configuration. LUNGS: Moderate left pleural effusion with adjacent airspace opacities. No right pleural effusion. No pneumothorax although the lung apices are not well-visualized. ABDOMEN: No remarkable upper abdominal findings. BONES: No acute osseous changes. IMPRESSION: 1. Moderate left pleural effusion with adjacent airway opacification likely representing atelectasis/edema I personally reviewed the images/study and I agree with the findings as stated by Marine Kim MD, PGY-2 this study was interpreted at [facility], [place], [place]. MACRO: None Signed by: Carine Key 10/24/2024 1:11 PM Dictation workstation: [id number] Normal [facility] XR Chest Single Viewon 10-24 XR Chest Single View Exam Date/Time: 10/24/2024 04:06 EST Reason for Exam: ET tube placement Report IMPRESSION: NO SIGNIFICANT INTERVAL CHANGE. EXAM: XR Chest Single View History: Endotracheal tube placement. Technique: Portable AP view of the chest. Comparison: 10/24/2024 12:30 AM Findings: The patient is rotated. Endotracheal tube appears to terminate approximately 3.5 cm from the ese. Atherosclerotic calcification of the thoracic aorta. Evidence of prior thoracic surgery. Left-sided cardiac pacemaker is present. The cardiomediastinal silhouette has not significantly changed. Small right pleural effusion. Unchanged left lung base opacity likely representing pleural effusion with associated atelectasis, or infiltrate. No pneumothorax. No acute osseous abnormality. Ordering Provider: Aldair RIVERA FINAL REPORT Dictated: 10/24/2024 8:56 am Haroldo Davis DO Signed (Electronic Signature): 10/24/2024 8:56 am Signed by: Haroldo Davis DO Transcribed by: GENO Technologist: RAÚL Palacios [facility] XR Chest Single View Exam Date/Time: 10/24/2024 01:06 EST Reason for Exam: ET tube placement Report IMPRESSION: No significant interval change from prior. EXAMINATION/TECHNIQUE: XR Chest Single View HISTORY: Endotracheal tube placement. COMPARISON: 10/22/2024. RESULT: Endotracheal tube with tip around 5 cm above the ese. There is opacity/atelectasis especially at the right lung base, unchanged. Possible small pleural effusions. No pneumothorax. Hyperinflated lungs with coarsened lung markings, unchanged. Stable cardiomediastinal silhouette. Aortic vascular calcifications. Median sternotomy with mediastinal clips and atrial appendage clip. Osseous findings unchanged. Left-sided pacemaker. Ordering Provider: Aldair RIVERA FINAL REPORT Dictated: 10/24/2024 8:56 am Blayne Alvarez MD Signed (Electronic Signature): 10/24/2024 8:56 am Signed by: Blayne Alvarez MD Transcribed by: GENO Technologist: RAÚL Palacios [facility] XR Chest Single viewon 10-24 [facility] MMODAL [facility] MMODAL [facility] Work Phone: Radiology Study observation (narrative) [facility] Work Phone: XR Chest Single viewOrdered By: Carine Key on 10-24-2024 [facility] Work Phone: eGFRon 10-24-2024 eGFR 96 mL/min/1.73 m2 Normal >=59 [facility] Comment on above: Performed By: #### 1 [id number] #### [facility] Laboratory [address] [place] [address] CHEMISTRYOrdered By: Lab ROP User on 10-23-2024 Glucose [Mass/Vol] 97 mg/dL Normal 55 - 99 mg/dL [facility] POC Subsection POC Username NICA KELLER Invalid Interpretation Code [facility] POC Subsection Sodium [Moles/Vol] 659205629 mmol/L Invalid Interpretation Code [facility] POC Subsection CHEMISTRYOrdered By: SYSTEM SYSTEM on 10-23-2024 Total CK 398 [iU]/d Invalid Interpretation Code 14 - 261 Int._Unit/ L [facility] Comment on above: Result Comment: Crit ical Result Verified by Repeat Analysis Critical Result S_CK:398 Called to and read back by: RILEY BUENO at: 10/23/2024 07:04:32 by:RADHA Hawkins 10-23-2024 Total CK 398 Int._Unit/L Abnormal 14-261 [facility] Comment on above: Result Comment: Crit ical Result Verified by Repeat Analysis Critical Result S_CK:398 Called to and read back by: RILEY BUENO at: 10/23/2024 07:04:32 by:RADHA Performed By: #### 2 [id number] #### [facility] Laboratory [address] [place] [address] Capillary Glucose POCon 09-27 Glucose [Mass/Vol] 97 mg/dL Normal 55-99 [facility] Comment on above: Performed By: #### 2 [id number] #### [facility] Laboratory [address] [place] [address] Extra [place] 10-23-2024 WB Tube Collected Yes Invalid Interpretation Code [facility] Comment on above: Performed By: #### 1 [id number] #### [facility] Laboratory [address] [place] [address] Interdisciplinary Note - John e Manageron 10-23-2024 Interdisciplinary Note - Cafeteria Table Attendant Interdisciplinary Note - Cafeteria Table Attendant Patient is awake and alert in bed, previously rounded with Dr. Patterson. and daughter present at bedside. Pt is currently on 3L oxygen, pending ST eval. Discussed likely move out of ICU today and will add PT/OT evals. PT does not have home oxygen, will need to wean off or desat prior to DC. Medicare rights reviewd, CRM following . PCP verified and insurance information reviewed and DME discussed. Contact information provided and white board updated. Normal [facility] Comment on above: Result Comment: Elec tronically Signed By: Janis GARZA, Kizzy\.br\Date and Time Signed: 10/23/24 10:49 EST Interdisciplinary Note - Homer singon 10-23-2024 Interdisciplinary Note - Nursing Interdisciplinary Note - Nursing Took over care for pt at 1800. Report given to me by Nica Rodriguez RN. Normal [facility] Interdisciplinary Note - Spe ech Languageon 10-23-2024 Interdisciplinary Note - Speech Language Interdisciplinary Note - Speech Language ST 10/23/24: BSE completed this date. Pt extubated 10/22 @ 1230. Per nursing, pt requesting water. Pt presented to hospital following slurred speech and unresponsive event. Pt intubated upon arrival. PMH: afib, GERD, CAD. Pt known to clinician - prior MBS 01/2024, at that time recommending sb6/thin. OME - pt missing many teeth. presents at end of session with lower dentures. pt with swelling in face/lips. decreased range. Oral care completed before and after trials by clinician. Cough noted with each. O2 at 94 prior to trials. Pt agreeable to trials. Pt given ??? tsp puree. Pt with delayed swallow onset. Pt with wet, congested cough. Pt reports it is hard to swallow. Suctioning required for removal of remaining bolus. O2 dropped to 88%, but does return to 94. ST recommending strict NPO, to follow daily for possible initiation of diet. Discussed with family and nursing. Normal [facility] Laboratory - Chemistry and C hemistry - challengeOrdered By: Lab Yamil on 10-23-2024 Sodium [Moles/Vol] [id number] mmol/L Invalid Interpretation Code [facility] POC Subsection Laboratory - Microbiology an d Antimicrobial susceptibilityOrdered By: Tere Pruett on 10-23-2024 Bacteria identified Respiratory culture Nom (Sput) 2+ Staphylococcus species Coagulase Positive Scant growth of Normal upper respiratory ant isolated [facility] No Panel InformationOrdered By: Tere Pruett on 10-23-2024 GS 2+ White Blood Cells 2+ Gram Positive Cocci Occasional Gram Positive Rods [facility] CBC w/ Auto Diffon 5 Basophils/100 WBC (Bld) 0.2 % Normal 0.0-2.0 [facility] Comment on above: Performed By: #### 2 [id number] #### [facility] Laboratory [address] [place] [address] Basophils/Leukocytes Auto (Bld) [Pure # fraction] 0.0 E9/L Normal 0.0-0.2 [facility] Comment on above: Performed By: #### 2 [id number] #### [facility] Laboratory [address] [place] [address] Eosinophils (Bld) [#/Vol] 0.2 E9/L Normal 0.0-0.5 [facility] Comment on above: Performed By: #### 2 [id number] #### [facility] Laboratory [address] [place] [address] Eosinophils/100 WBC (Bld) 3.1 % Normal 0.0-8.0 [facility] Comment on above: Performed By: #### 2 [id number] #### [facility] Laboratory [address] [place] [address] Erythrocyte distribution width (RBC) [Ratio] 15.3 % High 10.9-14.2 [facility] Comment on above: Performed By: #### 2 [id number] #### [facility] Laboratory [address] [place] [address] Hematocrit (Bld) [Volume fraction] 30.8 % Low 37.7-49.0 [facility] Comment on above: Performed By: #### 2 [id number] #### [facility] Laboratory [address] [place] [address] Hemoglobin (Bld) [Mass/Vol] 10.5 g/dL Low 13.5-17.5 [facility] Comment on above: Performed By: #### 2 [id number] #### [facility] Laboratory [address] [place] [address] Lymphocytes (Bld) [#/Vol] 0.5 E9/L Low 1.0-4.0 [facility] Comment on above: Performed By: #### 2 [id number] #### [facility] Laboratory [address] [place] [address] Lymphocytes/100 WBC (Bld) 8.2 % Low 14.0-50.0 [facility] Comment on above: Performed By: #### 2 [id number] #### [facility] Laboratory [address] [place] [address] MCH (RBC) [Entitic mass] 31.3 pg Normal 27.0-34.0 [facility] Comment on above: Performed By: #### 2 [id number] #### [facility] [address] [place] [address] MCHC (RBC) [Mass/Vol] 34.0 g/dL Normal 31.4-36.0 [facility] Comment on above: Performed By: #### 2 [id number] #### [facility] [address] [place] [address] MCV (RBC) [Entitic vol] 92.2 fL Normal 80.0-100.0 [facility] Comment on above: Performed By: #### 2 [id number] #### [facility] [address] [place] [address] Monocytes (Bld) [#/Vol] 0.6 E9/L Normal 0.2-1.0 [facility] Comment on above: Performed By: #### 2 [id number] #### [facility] [address] [place] [address] Neutrophils (Bld) [#/Vol] 4.4 E9/L Normal 2.0-7.5 [facility] Comment on above: Performed By: #### 2 [id number] #### [facility] [address] [place] [address] Neutrophils/100 WBC (Bld) 78.6 % High 36.0-75.0 [facility] Comment on above: Performed By: #### 2 [id number] #### [facility] Laboratory [address] [place] [address] Platelets Large LM Ql (Bld) PRESENT Invalid Interpretation Code [facility] Comment on above: Performed By: #### 2 [id number] #### [facility] Laboratory [address] [place] [address] RBC (Bld) [#/Vol] 3.4 E12/L Low 4.3-5.9 [facility] Comment on above: Performed By: #### 2 [id number] #### [facility] Laboratory [address] [place] [address] RBC size Nom (Bld) SEE MORPHOLOGY Invalid Interpretation Code [facility] Comment on above: Performed By: #### 2 [id number] #### [facility] Laboratory [address] [place] [address] WBC corrected for nucl RBC Auto (Bld) [#/Vol] 5.6 E9/L Normal 4.0-11.0 [facility] Comment on above: Performed By: #### 2 [id number] #### [facility] Laboratory [address] [place] [address] Platelet 80.0 E9/L Low 150.0-500. 0 [facility] Comment on above: Performed By: #### 2 [id number] #### [facility] Laboratory [address] [place] [address] Platelet mean volume (Bld) [Entitic vol] 8.9 fL Normal 6.4-10.8 [facility] Comment on above: Performed By: #### 2 [id number] #### Select [facility] [address] [place] [address] CHEMISTRYOrdered By: SYSTEM SYSTEM on 10-22-2024 Albumin [Mass/Vol] 2.8 g/dL Low 3.3 - 5.0 gm/dL Remisol Chem Albumin/Globulin [Mass ratio] 1.3 {ratio} Normal 1.1 - 2.2 Remisol Chem ALP [Catalytic activity/Vol] 46 [iU]/d Normal 21 - 98 Int._Unit/ L Remisol Chem ALT No additional P-5'-P [Catalytic activity/Vol] 17 [iU]/d Normal 6 - 46 Int._Unit/ L Remisol Chem Anion gap [Moles/Vol] 8 mmol/L Normal 6 - 16 mEq/L Remisol Chem AST [Catalytic activity/Vol] 14 [iU]/d Normal 5 - 43 Int._Unit/ L Remisol Chem Bilirubin [Mass/Vol] 2.3 mg/dL High 0.0 - 1 .1 mg/dL Remisol Chem Calcium [Mass/Vol] 7.7 mg/dL Low 8.9 - 11. 1 mg/dL Remisol Chem Chloride [Moles/Vol] 112 mmol/L High 101 - 1 11 mmol/L Remisol Chem CO2 [Moles/Vol] 23 mmol/L Normal 21 - 31 mmol/L Remisol Chem Creatinine [Mass/Vol] 0.6 mg/dL Normal 0.5 - 1.3 mg/dL Remisol Chem eGFR 96 mL/min/1.73 m2 Normal >=59mL/min /1.73 m2 Remisol Chem Globulin (S) [Mass/Vol] 2.2 g/dL Normal 1.4 - 4.0 gm/dL Remisol Chem Glucose [Mass/Vol] 142 mg/dL Normal 55 - 199 mg/dL Remisol Chem Potassium [Moles/Vol] 3.7 mmol/L Normal 3.5 - 5.3 mmol/L Remisol Chem Procalcitonin 0.17 ng/mL Normal 0.00 - 0.50 ng/mL Remisol Chem Comment on above: Interpretive Data: < 0.5 ng/mL Low risk of severe sepsis and/or shock >2.0 ng/mL High risk of severe sepsis and/or shock Concentrations under 0.5 ng/mL do not exclude local infections or systemic infections in their initial stages (e.g.. under six hours from onset of illness). PCT concentrations between 0.5 and 2.0 ng/mL should be interpreted with consideration of the patient's history. In this range, it is recommended to retest PCT within 6 to 24 hours. Protein [Mass/Vol] 5.0 g/dL Low 6.0 - 7.8 gm/dL Remisol Chem Sodium [Moles/Vol] 139 mmol/L Normal 135 - 145 mmol/L Remisol Chem Triglyceride [Mass/Vol] 32 mg/dL Normal <=149mg/dL Remisol Chem Urea nitrogen [Mass/Vol] 20 mg/dL Normal 5 - 21 mg/dL Remisol Chem Urea nitrogen/Creatinine [Mass ratio] 33 mg/mg High 10 - 20 Remisol Chem CMPon 10-22-2024 Albumin [Mass/Vol] 2.8 g/dL Low 3.3-5.0 [facility] Comment on above: Performed By: #### 2 [id number] #### [facility] [address] [place] [address] Albumin/Globulin (S) [Mass conc ratio] 1.3 Normal 1.1-2.2 [facility] Comment on above: Performed By: #### 2 [id number] #### [facility] [address] [place] [address] ALP [Catalytic activity/Vol] 46 Int._Unit/L Normal 21-98 [facility] Comment on above: Performed By: #### 2 [id number] #### [facility] [address] [place] [address] ALT No additional P-5'-P [Catalytic activity/Vol] 17 Int._Unit/L Normal 6-46 [facility] Comment on above: Performed By: #### 2 [id number] #### [facility] [address] [place] [address] Anion gap [Moles/Vol] 8 mmol/L Normal 6-16 [facility] Comment on above: Performed By: #### 2 [id number] #### [facility] [address] [place] [address] AST [Catalytic activity/Vol] 14 Int._Unit/L Normal 5-43 [facility] Comment on above: Performed By: #### 2 [id number] #### [facility] [address] [place] [address] Bilirubin [Mass/Vol] 2.3 mg/dL High 0.0-1.1 [facility] Comment on above: Performed By: #### 2 [id number] #### [facility] [address] [place] [address] Calcium [Mass/Vol] 7.7 mg/dL Low 8.9-11.1 [facility] Comment on above: Performed By: #### 2 [id number] #### [facility] [address] [place] [address] Chloride [Moles/Vol] 112 mmol/L High 101-111 [facility] Comment on above: Performed By: #### 2 [id number] #### [facility] [address] [place] [address] CO2 [Moles/Vol] 23 mmol/L Normal 21-31 [facility] Comment on above: Performed By: #### 2 [id number] #### [facility] [address] [place] [address] Creatinine [Mass/Vol] 0.6 mg/dL Normal 0.5-1.3 [facility] Comment on above: Performed By: #### 2 [id number] #### [facility] [address] [place] [address] Globulin (S) [Mass/Vol] 2.2 g/dL Normal 1.4-4.0 [facility] Comment on above: Performed By: #### 2 [id number] #### [facility] [address] [place] [address] Glucose [Mass/Vol] 142 mg/dL Normal 55-199 [facility] Comment on above: Performed By: #### 2 [id number] #### [facility] [address] [place] [address] Potassium [Moles/Vol] 3.7 mmol/L Normal 3.5-5.3 [facility] Comment on above: Performed By: #### 2 [id number] #### [facility] [address] [place] [address] Protein [Mass/Vol] 5.0 g/dL Low 6.0-7.8 [facility] Comment on above: Performed By: #### 2 [id number] #### [facility] [address] [place] [address] Sodium [Moles/Vol] 139 mmol/L Normal 135-145 [facility] Comment on above: Performed By: #### 2 [id number] #### [facility] [address] [place] [address] Urea nitrogen [Mass/Vol] 20 mg/dL Normal 5-21 [facility] Comment on above: Performed By: #### 2 [id number] #### [facility] [address] [place] [address] Urea nitrogen/Creatinine [Mass ratio] 33 No Units High 10-20 [facility] Comment on above: Performed By: #### 2 [id number] #### [facility] [address] [place] [address] Capillary Glucose POCon 09-27 Glucose [Mass/Vol] 112 mg/dL High 55-99 [facility] Comment on above: Result Comment: Kimberly kwadwo Meter Performed By: #### 2 [id number] #### [facility] [address] [place] [address] HEMATOLOGYOrdered By: SYSTEM SYSTEM on 10-22-2024 Basophils/100 WBC (Bld) 0.2 % Normal 0.0 - 2.0 % Remisol Heme Basophils/Leukocytes Auto (Bld) [Pure # fraction] 0.0 E9/L Normal 0.0 - 0.2 E9/L Remisol Heme Eosinophils (Bld) [#/Vol] 0.2 E9/L Normal 0.0 - 0.5 E9/L Remisol Heme Eosinophils/100 WBC (Bld) 3.1 % Normal 0.0 - 8.0 % Remisol Heme Erythrocyte distribution width (RBC) [Ratio] 15.3 % High 10.9 - 14.2 % Remisol Heme Hematocrit (Bld) [Volume fraction] 30.8 % Low 37.7 - 49.0 % Remisol Heme Hemoglobin (Bld) [Mass/Vol] 10.5 g/dL Low 13.5 - 17.5 gm/dL Remisol Heme Lymphocytes (Bld) [#/Vol] 0.5 E9/L Low 1.0 - 4.0 E9/L Remisol Heme Lymphocytes/100 WBC (Bld) 8.2 % Low 14.0 - 50.0 % Remisol Heme MCH (RBC) [Entitic mass] 31.3 pg Normal 27.0 - 34.0 pg Remisol Heme MCHC (RBC) [Mass/Vol] 34.0 g/dL Normal 31.4 - 36.0 gm/dL Remisol Heme MCV (RBC) [Entitic vol] 92.2 fL Normal 80.0 - 100.0 fL Remisol Heme Monocytes (Bld) [#/Vol] 0.6 E9/L Normal 0.2 - 1.0 E9/L Remisol Heme Monocytes/100 WBC (Bld) 9.9 % Normal 4.0 - 14.0 % Rem[facility] Heme Neutrophils (Bld) [#/Vol] 4.4 E9/L Normal 2.0 - 7.5 E9/L Remisol Heme Neutrophils/100 WBC (Bld) 78.6 % High 36.0 - 75.0 % Remisol Heme Platelet 80.0 E9/L Low 150.0 - 500.0 E9/L Remisol Heme Platelet mean volume (Bld) [Entitic vol] 8.9 fL Normal 6.4 - 10.8 fL Remisol Heme Platelets Large LM Ql (Bld) PRESENT *NA* (10/22/24 5:25 AM) Invalid Interpretation Code Remisol Heme RBC (Bld) [#/Vol] 3.4 E12/L Low 4.3 - 5.9 E12/L Rem[facility] Heme RBC size Nom (Bld) SEE MORPHOLOGY *NA* (10/22/24 5:25 AM) Invalid Interpretation Code Remisol Heme WBC corrected for nucl RBC Auto (Bld) [#/Vol] 5.6 E9/L Normal 4.0 - 11.0 E9/L Remisol Heme Interdisciplinary Note - John e Manageron 10-22-2024 Interdisciplinary Note - Cafeteria Table Attendant Interdisciplinary Note - Cafeteria Table Attendant Pt remains on vent, at bedside, and rounding with Avelino from [employer]. Contact information provided and white board updated, CRM following for needs. Normal [facility] Comment on above: Result Comment: Elec tronically Signed By: Janis GARZA, Kizzy\.br\Date and Time Signed: 10/22/24 12:52 EST Procalcitoninon 10-22-2024 Procalcitonin .17 ng/mL Normal .00-.50 [facility] Comment on above: Result Comment: <0.5 ng/mL Low risk of severe sepsis and/or shock >2.0 ng/mL High risk of severe sepsis and/or shock Concentrations under 0.5 ng/mL do not exclude local infections or systemic infections in their initial stages (e.g.. under six hours from onset of illness). PCT concentrations between 0.5 and 2.0 ng/mL should be interpreted with consideration of the patient's history. In this range, it is recommended to retest PCT within 6 to 24 hours. Performed By: #### 2 [id number] #### [facility] [address] [place] [address] Triglycerideson 10-22-2024 Triglyceride [Mass/Vol] 32 mg/dL Normal <=149 [facility] Comment on above: Order Comment: Recom mended if patient on propofol > 72 hours. Performed By: #### 2 [id number] #### [facility] [address] [place] [address] XR Chest Single Viewon 10-22 XR Chest Single View Exam Date/Time: 10/22/2024 12:04 EST Reason for Exam: Pneumonia Report IMPRESSION: No significant interval change from prior. EXAMINATION/TECHNIQUE: XR Chest Single View HISTORY: Pneumonia. COMPARISON: 10/19/2024. RESULT: Endotracheal tube, grossly unchanged. Opacity/atelectasis right lung base, unchanged. Possible small pleural effusions. No pneumothorax. Hyperinflated lungs with coarsened lung markings, unchanged. Stable cardiomediastinal silhouette. Aortic vascular calcifications. Postsurgical changes with median sternotomy, mediastinal clips, and appendage clip. Osseous findings unchanged. Ordering Provider: Haroldo Harden FINAL REPORT Dictated: 10/22/2024 12:09 pm Blayne Alvarez MD. Signed (Electronic Signature): 10/22/2024 12:09 pm Signed by: Blayne Alvarez MD Transcribed by: GENO Technologist: GLENYS Technical Comments Radiation Dose: Ka,r in mGy = na DAP = na Normal [facility] eGFRon 10-22-2024 eGFR 96 mL/min/1.73 m2 Normal >=59 [facility] Comment on above: Performed By: #### 1 [id number] #### [facility] [address] [place] [address] BMPon 10-21-2024 Anion gap [Moles/Vol] 8 mmol/L Normal 6-16 [facility] Comment on above: Performed By: #### 2 [id number] #### [facility] [address] [place] [address] Calcium [Mass/Vol] 8.0 mg/dL Low 8.9-11.1 [facility] Comment on above: Performed By: #### 2 [id number] #### [facility] [address] [place] [address] Chloride [Moles/Vol] 108 mmol/L Normal 101-111 [facility] Comment on above: Performed By: #### 2 [id number] #### [facility] [address] [place] [address] CO2 [Moles/Vol] 25 mmol/L Normal 21-31 [facility] Comment on above: Performed By: #### 2 [id number] #### [facility] [address] [place] [address] Creatinine [Mass/Vol] 0.8 mg/dL Normal 0.5-1.3 [facility] Comment on above: Performed By: #### 2 [id number] #### [facility] [address] [place] [address] Glucose [Mass/Vol] 121 mg/dL Normal 55-199 [facility] Comment on above: Performed By: #### 2 [id number] #### [facility] [address] [place] [address] Potassium [Moles/Vol] 4.1 mmol/L Normal 3.5-5.3 [facility] Comment on above: Performed By: #### 2 [id number] #### [facility] [address] [place] [address] Sodium [Moles/Vol] 137 mmol/L Normal 135-145 [facility] Comment on above: Performed By: #### 2 [id number] #### [facility] [address] [place] [address] Urea nitrogen [Mass/Vol] 21 mg/dL Normal 5-21 [facility] Comment on above: Performed By: #### 2 [id number] #### [facility] [address] [place] [address] Urea nitrogen/Creatinine [Mass ratio] 26 No Units High 10-20 [facility] Comment on above: Performed By: #### 2 [id number] #### [facility] [address] [place] [address] CBC w/ Auto Diffon 5 Basophils/100 WBC (Bld) 0.3 % Normal 0.0-2.0 [facility] Comment on above: Performed By: #### 2 [id number] #### [facility] [address] [place] [address] Basophils/Leukocytes Auto (Bld) [Pure # fraction] 0.0 E9/L Normal 0.0-0.2 [facility] Comment on above: Performed By: #### 2 [id number] #### [facility] [address] [place] [address] Eosinophils (Bld) [#/Vol] 0.2 E9/L Normal 0.0-0.5 [facility] Comment on above: Performed By: #### 2 [id number] #### [facility] [address] [place] [address] Eosinophils/100 WBC (Bld) 2.7 % Normal 0.0-8.0 [facility] Comment on above: Performed By: #### 2 [id number] #### [facility] [address] [place] [address] Erythrocyte distribution width (RBC) [Ratio] 15.6 % High 10.9-14.2 [facility] Comment on above: Performed By: #### 2 [id number] #### [facility] [address] [place] [address] Hematocrit (Bld) [Volume fraction] 33.2 % Low 37.7-49.0 [facility] Comment on above: Performed By: #### 2 [id number] #### [facility] [address] [place] [address] Hemoglobin (Bld) [Mass/Vol] 11.3 g/dL Low 13.5-17.5 [facility] Comment on above: Performed By: #### 2 [id number] #### [facility] [address] [place] [address] Lymphocytes (Bld) [#/Vol] 0.6 E9/L Low 1.0-4.0 [facility] Comment on above: Performed By: #### 2 [id number] #### [facility] [address] [place] [address] Lymphocytes/100 WBC (Bld) 9.3 % Low 14.0-50.0 [facility] Comment on above: Performed By: #### 2 [id number] #### [facility] [address] [place] [address] MCH (RBC) [Entitic mass] 31.2 pg Normal 27.0-34.0 [facility] Comment on above: Performed By: #### 2 [id number] #### [facility] [address] [place] [address] MCHC (RBC) [Mass/Vol] 33.9 g/dL Normal 31.4-36.0 [facility] Comment on above: Performed By: #### 2 [id number] #### [facility] [address] [place] [address] MCV (RBC) [Entitic vol] 91.8 fL Normal 80.0-100.0 [facility] Comment on above: Performed By: #### 2 [id number] #### [facility] [address] [place] [address] Monocytes (Bld) [#/Vol] 0.4 E9/L Normal 0.2-1.0 [facility] Comment on above: Performed By: #### 2 [id number] #### [facility] [address] [place] [address] Neutrophils (Bld) [#/Vol] 5.6 E9/L Normal 2.0-7.5 [facility] Comment on above: Performed By: #### 2 [id number] #### [facility] [address] [place] [address] Neutrophils/100 WBC (Bld) 81.2 % High 36.0-75.0 [facility] Comment on above: Performed By: #### 2 [id number] #### [facility] [address] [place] [address] Platelet mean volume (Bld) [Entitic vol] 9.0 fL Normal 6.4-10.8 [facility] Comment on above: Performed By: #### 2 [id number] #### [facility] [address] [place] [address] Platelets (Bld) [#/Vol] 100.0 E9/L Low 150.0-500. 0 [facility] Comment on above: Performed By: #### 2 [id number] #### [facility] [address] [place] [address] RBC (Bld) [#/Vol] 3.6 E12/L Low 4.3-5.9 [facility] Comment on above: Performed By: #### 2 [id number] #### [facility] [address] [place] [address] WBC corrected for nucl RBC Auto (Bld) [#/Vol] 6.9 E9/L Normal 4.0-11.0 [facility] Comment on above: Result Comment: Kendra pheral smear review performed. Performed By: #### 2 [id number] #### [facility] [address] [place] [address] CHEMISTRYOrdered By: SYSTEM SYSTEM on 10-21-2024 Anion gap [Moles/Vol] 8 mmol/L Normal 6 - 16 mEq/L Remisol Chem Calcium [Mass/Vol] 8.0 mg/dL Low 8.9 - 11. 1 mg/dL Remisol Chem Chloride [Moles/Vol] 108 mmol/L Normal 101 - 1 11 mmol/L Remisol Chem CO2 [Moles/Vol] 25 mmol/L Normal 21 - 31 mmol/L Remisol Chem Creatinine [Mass/Vol] 0.8 mg/dL Normal 0.5 - 1.3 mg/dL Remisol Chem eGFR 88 mL/min/1.73 m2 Normal >=59mL/min /1.73 m2 Remisol Chem Glucose [Mass/Vol] 121 mg/dL Normal 55 - 199 mg/dL Remisol Chem Potassium [Moles/Vol] 4.1 mmol/L Normal 3.5 - 5.3 mmol/L Remisol Chem Sodium [Moles/Vol] 137 mmol/L Normal 135 - 145 mmol/L Remisol Chem Total CK 236 [iU]/d Normal 14 - 261 Int._Unit/ L Remisol Chem Urea nitrogen [Mass/Vol] 21 mg/dL Normal 5 - 21 mg/dL Remisol Chem Urea nitrogen/Creatinine [Mass ratio] 26 mg/mg High 10 - 20 Remisol Chem CKon 10-21-2024 Total CK 236 Int._Unit/L Normal 14-261 [facility] Comment on above: Performed By: #### 2 [id number] #### [facility] [address] [place] [address] Capillary Glucose POCon 09-27 Glucose [Mass/Vol] 114 mg/dL High 55-99 [facility] Comment on above: Performed By: #### 2 [id number] #### [facility] [address] [place] [address] HEMATOLOGYOrdered By: SYSTEM SYSTEM on 10-21-2024 Basophils/100 WBC (Bld) 0.3 % Normal 0.0 - 2.0 % Remisol Heme Basophils/Leukocytes Auto (Bld) [Pure # fraction] 0.0 E9/L Normal 0.0 - 0.2 E9/L Rem[facility] Heme Eosinophils (Bld) [#/Vol] 0.2 E9/L Normal 0.0 - 0.5 E9/L Remisol Heme Eosinophils/100 WBC (Bld) 2.7 % Normal 0.0 - 8.0 % Remisol Heme Erythrocyte distribution width (RBC) [Ratio] 15.6 % High 10.9 - 14.2 % Remisol Heme Hematocrit (Bld) [Volume fraction] 33.2 % Low 37.7 - 49.0 % Remisol Heme Hemoglobin (Bld) [Mass/Vol] 11.3 g/dL Low 13.5 - 17.5 gm/dL Remisol Heme Lymphocytes (Bld) [#/Vol] 0.6 E9/L Low 1.0 - 4.0 E9/L Remisol Heme Lymphocytes/100 WBC (Bld) 9.3 % Low 14.0 - 50.0 % Remisol Heme MCH (RBC) [Entitic mass] 31.2 pg Normal 27.0 - 34.0 pg Remisol Heme MCHC (RBC) [Mass/Vol] 33.9 g/dL Normal 31.4 - 36.0 gm/dL Remisol Heme MCV (RBC) [Entitic vol] 91.8 fL Normal 80.0 - 100.0 fL Remisol Heme Monocytes (Bld) [#/Vol] 0.4 E9/L Normal 0.2 - 1.0 E9/L Remisol Heme Monocytes/100 WBC (Bld) 6.5 % Normal 4.0 - 14.0 % Remisol Heme Neutrophils (Bld) [#/Vol] 5.6 E9/L Normal 2.0 - 7.5 E9/L Remisol Heme Neutrophils/100 WBC (Bld) 81.2 % High 36.0 - 75.0 % Remisol Heme Platelet mean volume (Bld) [Entitic vol] 9.0 fL Normal 6.4 - 10.8 fL Remisol Heme Platelets (Bld) [#/Vol] 100.0 E9/L Low 150.0 - 500.0 E9/L Rem[facility] Heme RBC (Bld) [#/Vol] 3.6 E12/L Low 4.3 - 5.9 E12/L Rem[facility] Heme WBC corrected for nucl RBC Auto (Bld) [#/Vol] 6.9 E9/L Normal 4.0 - 11.0 E9/L [facility] Comment on above: Result Comment: Kendra pheral smear review performed. eGFRon 10-21-2024 eGFR 88 mL/min/1.73 m2 Normal >=59 [facility] Comment on above: Performed By: #### 1 [id number] #### [facility] [address] [place] [address] Blood GasesOrdered By: Matt Rodriguez on 10-20-2024 a/A Ratio Art 39.60 % Normal >=0.80% [facility] Resp Auto SS AaDO2 Art 118.0 mm[Hg] High 5.0 - 15.0 mmHg FT Resp Auto SS ACT. Rate 16 1 Invalid Interpretation Code FT Resp Auto SS Allens Test Positive (10/20/24 5:33 AM) Normal FT Resp Auto SS Base Excess Arterial -0.2 mmol/L Low >=2.8mm ol/ L FT Resp Auto SS cCa2+ Art 4.63 mg/dL Normal 4.40 - 5.30 mg/dL FT Resp Auto SS cCl- Art 107.0 mmol/L Normal 101.0 - 111.0 mmol/L FT Resp Auto SS cGlu Art 87 mg/dL Normal 55 - 99 mg/dL FT Resp Auto SS cK+ Art 3.6 mmol/L Normal 3.5 - 5.3 mmol/L FT Resp Auto SS cLac Art 0.8 mmol/L Normal 0.5 - 2.2 mmol/L FT Resp Auto SS manager documentation+ Art 138.0 mmol/L Normal 135.0 - 145.0 mmol/L FT Resp Auto SS Drawn by everardo rodriguez Invalid Interpretation Code [facility] Resp Auto SS FCOHb Art 1.2 % Low 1.5 - 4.9 % [facility] Resp Auto SS Comment on above: Interpretive Data: R eference range Nonsmoker <1.5% Smoker <5.0% Heavy Smoker <9.0% FMetHb Art 0.6 % Normal 0.0 - 1.9 % [facility] Resp Auto SS FO2Hb Art 94.2 % Normal 93.0 - 100.0 % [facility] Resp Auto SS HCO3 (Bld) [Moles/Vol] 24.2 mmol/L Normal 22.0 - 26.0 mmol/L [facility] Resp Auto SS Hemoglobin (Bld) [Mass/Vol] 12.1 g/dL Normal 12.0 - 17.0 gm/dL [facility] Resp Auto SS MV 8.1 1 Invalid Interpretation Code [facility] Resp Auto SS P CO2 Arterial 43.3 mm[Hg] Normal 35.0 - 45.0 mmHg [facility] Resp Auto SS P O2 Arterial 77.5 mm[Hg] Low 80.0 - 100.0 mmHg [facility] Resp Auto SS pH (Bld) 7.374 [pH] Normal 7.350 - 7.450 [facility] Resp Auto SS Sodium [Moles/Vol] 5 mmol/L Invalid Interpretation Code [facility] Resp Auto SS Sodium [Moles/Vol] 16 mmol/L Invalid Interpretation Code [facility] Resp Auto SS Sodium [Moles/Vol] 500 mmol/L Invalid Interpretation Code [facility] Resp Auto SS Sodium [Moles/Vol] 35.0 mmol/L Invalid Interpretation Code [facility] Resp Auto SS Vent Mode ac Invalid Interpretation Code [facility] Resp Auto SS FT Blood GasesOrdered By: Jay Mckoy on 10-20-2024 Sample Site L Radial (10/20/24 5:33 AM) Normal [facility] Resp Auto SS Sample Type Arterial Draw (10/20/24 5:33 AM) Normal [facility] Resp Auto SS CHEMISTRYOrdered By: SYSTEM SYSTEM on 10-19-2024 Albumin [Mass/Vol] 3.4 g/dL Normal 3.3 - 5.0 gm/dL Remisol Chem Albumin/Globulin [Mass ratio] 1.2 {ratio} Normal 1.1 - 2.2 Remisol Chem ALP [Catalytic activity/Vol] 60 [iU]/d Normal 21 - 98 Int._Unit/ L Remisol Chem ALT No additional P-5'-P [Catalytic activity/Vol] 18 [iU]/d Normal 6 - 46 Int._Unit/ L Remisol Chem AST [Catalytic activity/Vol] 21 [iU]/d Normal 5 - 43 Int._Unit/ L Remisol Chem Bilirubin [Mass/Vol] 0.9 mg/dL Normal 0.0 - 1 .1 mg/dL Remisol Chem Globulin (S) [Mass/Vol] 2.8 g/dL Normal 1.4 - 4.0 gm/dL Remisol Chem Protein [Mass/Vol] 6.2 g/dL Normal 6.0 - 7.8 gm/dL Remisol Chem COAGULATIONOrdered By: Annita Zamarripa on 10-19-2024 aPTT Coag (PPP) [Time] 30.6 s Normal 25.1 - 36.5 second(s) [facility] Auto Coag Comment on above: Interpretive Data: P arameter 15 days - 4 weeks 1 - 5 months 6 - 11 months 1 - 5 years 6 - 10 years 11 - 17 years PTT Mean: 35.4 (27.6-45.6) Mean: 33.5 (24.8-40.7) Mean: 32.4 (25.1-40.7) Mean: 31.6 (24.0-39.2) Mean: 31.6 (26.9-38.7) Mean: 31.0 (24.6-38.4) Pediatric Reference ranges were obtained from a study by Manny Souza et alJenniffer prepared from 1437 samples obtained at 7 different centers using the same coagulation reagent and instrumentation as [facility]. Currently there are no coagulation studies available worldwide for children to 14 days, and no normal ranges. Heparin therapeutic range (represented by Anti-Factor Xa activity of 0.2 - 0.4 U/mL) corresponds to PTT of 56.6 - 109.0 sec. INR Coag (PPP) [Relative time] 1.03 {INR} Invalid Interpretation Code [facility] Auto Coag Comment on above: Interpretive Data: I NR results are specifically intended to assess patients stabilized on long-term Anticoagulation therapy suggested INR s Less Intensive Anticoagulation 2.0 3.0 Conventional Range 3.0 4.5 PT Coag (PPP) [Time] 11.5 s Normal 9.4 - 1 2.5 second(s) [facility] Auto Coag Comment on above: Interpretive Data: 1 5 days - 4 weeks 1 - 5 months 6 -11 months 1 5 years 6 10 years 11 -17 years Mean: 11.2 (9.5 12.6) Mean: 11.0 (9.7 12.8) Mean: 11.0 (9.8 13.0) Mean: 11.3 (9.9 13.4) Mean: 11.7 (10.0 14.6) Mean: 11.8 (10.0 - 14.1) Pediatric Reference ranges were obtained from a study by samuel Holcomb prepared from 1437 samples obtained at 7 different centers using the same coagulation reagent and instrumentation as [facility]. Currently there are no coagulation studies available worldwide for children to 14 days, and no normal ranges. COAGULATIONOrdered By: Roxy Garcia on 10-19-2024 aPTT Coag (PPP) [Time] 32.4 s Normal 25.1 - 36.5 second(s) [facility] Auto Coag Comment on above: Interpretive Data: Dony dubose 15 days - 4 weeks 1 - 5 months 6 - 11 months 1 - 5 years 6 - 10 years 11 - 17 years PTT Mean: 35.4 (27.6-45.6) Mean: 33.5 (24.8-40.7) Mean: 32.4 (25.1-40.7) Mean: 31.6 (24.0-39.2) Mean: 31.6 (26.9-38.7) Mean: 31.0 (24.6-38.4) Pediatric Reference ranges were obtained from a study by samuel Holcomb prepared from 1437 samples obtained at 7 different centers using the same coagulation reagent and instrumentation as [facility]. Currently there are no coagulation studies available worldwide for children to 14 days, and no normal ranges. Heparin therapeutic range (represented by Anti-Factor Xa activity of 0.2 - 0.4 U/mL) corresponds to PTT of 56.6 - 109.0 sec. INR Coag (PPP) [Relative time] 1.09 {INR} Invalid Interpretation Code [facility] Auto Coag Comment on above: Interpretive Data: I NR results are specifically intended to assess patients stabilized on long-term Anticoagulation therapy suggested INR s Less Intensive Anticoagulation 2.0 3.0 Conventional Range 3.0 4.5 PT Coag (PPP) [Time] 12.2 s Normal 9.4 - 1 2.5 second(s) [facility] Auto Coag Comment on above: Interpretive Data: 1 5 days - 4 weeks 1 - 5 months 6 -11 months 1 5 years 6 10 years 11 -17 years Mean: 11.2 (9.5 12.6) Mean: 11.0 (9.7 12.8) Mean: 11.0 (9.8 13.0) Mean: 11.3 (9.9 13.4) Mean: 11.7 (10.0 14.6) Mean: 11.8 (10.0 - 14.1) Pediatric Reference ranges were obtained from a study by samuel Holcomb prepared from 1437 samples obtained at 7 different centers using the same coagulation reagent and instrumentation as [facility]. Currently there are no coagulation studies available worldwide for children to 14 days, and no normal ranges. Blood GasesOrdered By: Vane Vásquez on 10-19-2024 ACT. Rate 16 1 Invalid Interpretation Code [facility] Resp Auto SS Device Ventilator (10/19/24 6:21 PM) Normal [facility] Resp Auto SS MV 7.8 1 Invalid Interpretation Code [facility] Resp Auto SS Sodium [Moles/Vol] 5 mmol/L Invalid Interpretation Code [facility] Resp Auto SS Sodium [Moles/Vol] 16 mmol/L Invalid Interpretation Code [facility] Resp Auto SS Sodium [Moles/Vol] 500 mmol/L Invalid Interpretation Code FT Resp Auto SS Vent Mode ac Invalid Interpretation Code [facility] Resp Auto SS FT Blood GasesOrdered By: Ra denisha Garcia on 10-19-2024 ACT. Rate 16 1 Invalid Interpretation Code [facility] Resp Auto SS MV 6.6 1 Invalid Interpretation Code [facility] Resp Auto SS HEMATOLOGYOrdered By: SYSTEM SYSTEM on 10-19-2024 RBC size Nom (Bld) NORMAL *NA* (10/19/24 4:51 PM) Invalid Interpretation Code [facility] Heme Pre-Arrival Noteon Pre-Arrival Note Pre-Arrival Note Pre-Arrival Summary Name: , [facility] Current Date: 10/19/2024 10:52:22 EST Gender: Male Date of : Age: 84 Pre-Arrival Type: EMS ETA: 10/19/2024 11:12:00 EST Primary Care Physician: Presenting Problem: slurred speech now unresponsive Pre-Arrival User: Rafael GARZA, Harvinder Allen Referring Source: Location: [place] Completion Date/Time: 10/19/2024 10:42:00 [facility] Emergency Department Pre-Hospital Report Form ____ Vital Signs: Pre-Hospital Report: Treatment in Route: Response to Treatment: Misc. Issues: Normal [facility] URINALYSISOrdered By: SYSTEM SYSTEM on 10-19-2024 Bilirubin Ql (U) Negative Normal Negativemg /dL [facility] UA Auto SS Calcium oxalate crystals Computer assisted Ql (U) Present graded/HPF Invalid Interpretation Code [facility] UA Auto SS Clarity (U) Ex.Turbid *ABN* (10/19/24 1:12 PM) Invalid Interpretation Code Clear [facility] UA Auto SS Color (U) [place] 1 *ABN* (10/19/24 1:12 PM) Invalid Interpretation Code Yellow [facility] UA Auto SS Comment on above: Interpretive Data: M icroscopic readings are only performed on those samples that meet specific criteria set forth by [facility] Laboratory. Glucose Ql (U) Negative Normal Negativemg /dL [facility] UA Auto SS Hemoglobin Auto test strip (U) [Mass/Vol] 3+ mg/dL Invalid Interpretation Code Negativemg /dL [facility] UA Auto SS Ketones Auto test strip Ql (U) Negative Normal Negativemg /dL [facility] UA Auto SS Leukocyte esterase Auto test strip Ql (U) Negative Normal NegativeLe u/uL [facility] UA Auto SS Mucus Auto Ql (U) Negative Normal Negativegr aded/LPF [facility] UA Auto SS Nitrite Auto test strip Ql (U) Negative Normal Negativemg /dL [facility] UA Auto SS pH (U) 5.5 *NA* (10/19/24 1:12 PM) Invalid Interpretation Code 5.0 - 9.0 [facility] UA Auto SS Protein Ql (U) 1+ mg/dL Invalid Interpretation Code Negativemg /dL [facility] UA Auto SS RBC Ql (U) >75 graded/HPF Invalid Interpretation Code 0-3graded/ HPF [facility] UA Auto SS Specific gravity (U) [Rel density] 1.027 *NA* (10/19/24 1:12 PM) Invalid Interpretation Code 1.005 - 1.030 [facility] UA Auto SS Urobilinogen (U) [Mass/Vol] Negative Normal Negativemg /dL [facility] UA Auto SS WBC Auto (Urine sed) [#/Area] 0-5 graded/HPF Normal 0-5graded/ HPF [facility] UA Auto SS URINALYSISOrdered By: Irineo barrios on 10-19-2024 UA Spec Desc Brown (10/19/24 1:12 PM) Normal [facility] UA Auto SS Estimated glomerular filtrat ion rate (GFR) non- Americanon 10-05-2024 GFR/1.73 sq M.predicted among non-blacks MDRD (S/P/Bld) [Vol rate/Area] Estimated glomerular filtration rate (GFR) non- >=60 mL/min/1.[address] [place] [address] Laboratory - Chemistry and C hemistry - challengeon 10-05-2024 Creatinine [Mass/Vol] 0.90 mg/dL 0.70-1.30 [facility] GFR/1.73 sq M.predicted MDRD (S/P/Bld) [Vol rate/Area] mL/min/{1.73_m2} >=60 mL/min/1.[address] [place] [address] CNCOon 07-23-2024 CNCO Letter Text Normal [facility] CREATININE BLDOrdered By: Am y White on 07-20-2024 Creatinine [Mass/Vol] 0.86 mg/dL 0.73 - 1.22 mg/dL [facility] GFR/1.73 sq M.predicted among non-blacks MDRD (S/P/Bld) [Vol rate/Area] 86 mL/min/{1.73_m2} - [facility] Comment on above: Estimated Glomerular Filtration Rate (eGFR) is calculated using the 2020 CKD-EPI creatinine equation. This equation utilizes serum creatinine, sex, and age as parameters. The creatinine assay has traceable calibration to isotope dilution-mass spectrometry. Refer to KDIGO guidelines for clinical interpretation. In patients with unstable renal function, e.g. those with acute kidney injury, the eGFR may not accurately reflect actual GFR. Interpretation and review of laboratory results Normal [facility] CREATININE BLDon 07-20-2024 Creatinine [Mass/Vol] 0.86 mg/dL Normal 0.73-1.22 [facility] Comment on above: Order Comment: Speci men Type: BLOOD SPECIMEN Ordering Facility: [facility] Address: [address] [place] [address] Performed By: #### C RET1 #### [facility] CLIA [id number] [address] [place] [id number] Creatinine and Glomerular filtration rate.predicted panel (S/P/Bld) 86 mL/min/1.73m??? Normal >=60 [facility] Comment on above: Order Comment: Speci men Type: BLOOD SPECIMEN Ordering Facility: [facility] Address: [address] [place] [address] Result Comment: Grace mated Glomerular Filtration Rate (eGFR) is calculated using the 2020 CKD-EPI creatinine equation. This equation utilizes serum creatinine, sex, and age as parameters. The creatinine assay has traceable calibration to isotope dilution-mass spectrometry. Refer to KDIGO guidelines for clinical interpretation. In patients with unstable renal function, e.g. those with acute kidney injury, the eGFR may not accurately reflect actual GFR. Performed By: #### C RET1 #### [facility] CLIA [id number] [address] [place] [address] UROGRAM WO/W IVCONon 10-2 CT UROGRAM WO/W IVCON * * *Final Report* * * DATE OF EXAM: Jul 20 2024 10:06AM [facility] 0560 - CT UROGRAM WO/W IVCON / PROCEDURE REASON: multiple diagnoses * * * * Physician Interpretation * * * * RESULT: EXAMINATION: CT ABDOMEN AND PELVIS WITHOUT AND WITH IV CONTRAST, INCLUDING EXCRETORY PHASE IMAGING (CT UROGRAM) CLINICAL HISTORY: Bladder cancer. TECHNIQUE: CT urogram protocol including unenhanced, renal parenchymal phase and excretory phase renal imaging was obtained following IV contrast. Normal saline was also administered IV. No oral contrast was given. 3D image post-processing was not requested. MQ: CTU_2 Contrast: IV: 120 ml of Omnipaque 350 IV Saline: 80 ml of 0.9% NACL Solution Oral Contrast: None CT Radiation dose: Integrated dose-length product (DLP) for this visit = 1743 mGy*cm. CT Dose Reduction Employed: Automated exposure control (AEC) COMPARISON: None. RESULT: Kidneys and urinary tract: Right: There are no renal calculi or masses. Distal ureter is obscured by streak artifact from the right arthroplasty Left: There are no renal calculi or masses. Distal ureter is moderately dilated. Apparent stenosis at the left ureteropelvic junction, obscured by streak artifact. Bladder: Obscured by streak artifact from a right hip arthroplasty. Urinary bladder diverticula are noted. Abdomen and Pelvis: Liver: Nonspecific 1.6 cm hypodensity along the left hepatic lobe medially (7:55), only visualized on venous phase imaging. Hepatic cysts measuring up to 1.7 cm. Biliary: No bile duct dilation. Gallbladder is absent. Spleen: Nonspecific 6 mm hypodensity (5:32) No splenomegaly. Pancreas: 2.2 cm cystic focus in the pancreatic neck (5:25) demonstrating mild peripheral calcifications. Main pancreatic duct is nondilated. Adrenals: No mass. GI tract: No dilation or wall thickening. Diffuse colonic diverticulosis without evidence of diverticulitis. Postoperative changes of small bowel are noted. Lymph nodes: No abdominal or pelvic lymphadenopathy. Mesentery/Peritoneum: No ascites or mass. Retroperitoneum: No mass. Vasculature: - Abdominal aorta and iliac arteries: Atherosclerotic calcifications without aneurysm. - Celiac and SMA: Patent without stenosis. - Portal venous system (SMV, splenic vein, portal vein and branches): Patent. - Hepatic veins: Incompletely opacified, likely due to early phase of enhancement. Pelvis: No mass, ascites or fluid collection. Bones and Soft Tissues: Anterior abdominal hernia containing loops of nonobstructed small bowel and nonobstructed transverse colon. Right hip arthroplasty. Lower thorax: Small hiatal hernia. Localizer images: No additional findings. IMPRESSION: 1. Moderate dilatation of the left distal ureter with apparent focal stenosis at the left ureteropelvic vesicular junction. However this area is obscured by streak artifact from the right hip arthroplasty. Consider further evaluation via retrograde pyelogram. 2. 2.2 cm cystic focus in the pancreatic neck demonstrating peripheral calcifications. Differential diagnosis includes side branch intraductal papillary neoplasm (IPMN) and sequelae of previous pancreatitis. Consider further evaluation via MRCP or interval follow-up. 3. Nonspecific 1.6 cm left hepatic hypodensity, not typical for a cyst or hemangioma. This may also be evaluated interval follow-up of the MRI. 4. Anterior abdominal hernia containing loops of nonobstructed small bowel and nonobstructed transverse colon. . ACTIONABLE RESULT: FOLLOW-UP Acuity: Actionable Findings: Pancreas/Biliary Routing Code: PB_1 Recommendation: Unlisted Recommendation (see report) Time Frame: At the discretion of the clinical team. COMMUNICATION: Results will be communicated with the ordering provider via [facility] [employer] staff message or phone message by [facility] within 2 business days of report finalization. --END OF FINDING-- Transcribe Date/Time: Jul 21 2024 5:35P Dictated by: HERMAN ZULUAGA MD This examination was interpreted and the report reviewed and electronically signed by: HERMAN ZULUAGA MD on Jul 21 2024 7:25PM EST Thank you for allowing us to participate in the care of your patient. Should there be any questions regarding this interpretation, please call [phone]. If you are unable to reach us at the number above, please feel free to contact [facility] at [phone]. [id number] ACTIONABLE Invalid Interpretation Code [facility] Heart and Vascular Office/Cl inic Noteon 07-11-2024 Heart and Vascular Office/Clinic Note Heart and Vascular Office/Clinic Note Chief Complaint 6 mo f/u cad, pacer, afib History of Present Illness Patient is an 82 male with past medical history of CAD with CABG x 3 in 05/2022, hypertension, hyperlipidemia, persistent atrial fibrillation with prior left atrial appendage ligation in 05/2022, and status post pacemaker placement due to sick sinus syndrome, mitral regurgitation with mitral repair in 05/2022, tricuspid regurgitation. Patient most recent echo in 08/2022 showed mild to moderate LVH, severe dilation to left and right atria, mild aortic regurgitation, trace to mitral regurgitation status post mitral valve repair, moderate tricuspid regurgitation. Patient comes in for 6-month follow-up today. At last visit, patient saw Dr. Uriarte at which time he was maintained on current medications. EKG in the office today shows A-fib with controlled rate at 71 bpm. Patient reports that he is always in A-fib at this time. Patient also has had a pacemaker, but is not being paced based on EKG today. He did have a pacemaker check about 2-4 weeks ago and no changes were made. He did have a high ventricular rate on about 25 occasions, but the longest it lasted was 39 seconds. Patient reports that he has been feeling pretty well overall. Patient states that he does not have any heart palpitations. He had a left atrial appendage ligation in 2021 which was confirmed by CT scan. Patient was was changed from Eliquis to Plavix due to this and patient's request to get off of the Eliquis. Patient is compliant with Plavix 75 mg daily and metoprolol 25 mg twice daily for rate control. Patient is compliant with lisinopril and metoprolol as well as rosuvastatin for CAD. Patient denies chest pain, shortness of breath, heart palpitations, and swelling in lower legs. Review of Systems PHQ Score Initial Depression Screen Score: 0 SCORE ROS - Provider Constitutional: no fever, no chills, no sweats, no weakness Respiratory: no shortness of breath, no cough Cardiovascular: no chest pain Neuro: no dizziness. no loss of consciousness Physical Exam Vitals & Measurements HR: 94(Peripheral) RR: 16 BP: 132/84 SpO2: 97% HT: 72 in HT: 182 cm WT: 72.8 kg WT: 160.16 lb BMI: 21.98 General: alert, no acute distress Cardiovascular: irregularly-irregular rate and rhythm, no murmur normal peripheral perfusion Respiratory: Lungs CTAB, respirations non labored Extremities: no edema left lower extremity. no edema right lower extremity Neurological: oriented x 4, LOC appropriate for age, speech normal Skin: Warm, dry, intact- no rash or concerning lesions Cardiac Diagnostics (08/27/2022 16:25 EST Echo Transthoracic Complete) Interpretation Summary mild to moderate left ventricular hypertrophy. Unable to quantify diastolic dysfunction due to atrial fibrillation. The left atrium is severely dilated. The right atrium is severely dilated. The right ventricular systolic function is mildly reduced. Mild aortic regurgitation. Trivial mitral vegetation There is moderate tricuspid regurgitation. Estimated RVSP is severely elevated at 66 mmHg. In comparison echo report dated 02/09/2022, LV function has remained the same, severe mitral regurgitation has been corrected with mitral valve repair, RVSP has increased from 55 to 66 mmHg. [1] [facility] with Dr. Gipson on 05/27/2022: LMT: Normal caliber left main trunk with ostial 50 to 60% long tubular stenosis, dampens on catheter engagement with 5 Turkmen, has bifurcation LAD: Normal caliber with 90% mid focal stenosis and diffuse mild disease , reaches the apex. LCx: Normal caliber with 70% mid focal stenosis and diffuse mild disease, reaches the lateral wall. RCA: Normal caliber with 99% proximal hazy stenosis, dominant, reaches the inferior wall. Hemodynamics: Normal LVEDP at 13 mmHg with no gradient across the aortic valve. Left ventriculography: Normal LV systolic function, EF 55-60%, difficult to assess due to ventricular tachycardia during LV gram but no wall motion abnormalities and normal chamber size with moderate mitral regurgitation. Conclusions: Severe three-vessel disease left main stenosis and known severe mitral and tricuspid regurgitation. Ventricular tachycardia during the exam upon engagement and injection of the right coronary artery. Recommend referral to tertiary center for high risk CABG. [2] Assessment/Plan 1. Coronary artery disease (I25.10: Atherosclerotic heart disease of [place] coronary artery without angina pectoris) Patient has history of CAD with CABG x 3 in 05/2022. Patient is compliant with Plavix, lisinopril, metoprolol, rosuvastatin. Patient does not have any current issues at this time. Continue with current medications. Ordered: ECG 12 Lead Adult 2. PAF (paroxysmal atrial fibrillation) (I48.0: Paroxysmal atrial fibrillation) Patient has a history of paroxysmal A-fib, which has become persistent. EKG in the office today does show A-fib and he is not being paced by hi (more content not included)... Normal [facility] Comment on above: Result Comment: Elec tronically Signed By: Juan STYLES, Ric Guillory\.br\Date and Time Signed: 07/11/24 16:04 EDT CNOVon 06-28-2024 CNOV Office Visit (UROSMN ) ----- BRAVO ARCE ([id number]) 1940 Date Time Provider Department 06/28/24 9:45 AM PRITI, JOSE UROSMN During your visit today, we recorded the following information about you: Santosh Staples RN 06/28/2024 10:16 AM Signed Actual procedure/procedure scheduled: Yes Performing provider/scheduled provider: Yes Patient was roomed in: Q9- 05 Web Designer Developer offered: at bedside Patient arrived in the room at: 0936 Patient ready for procedure: 0949 The procedure started at ( Time Only): 1001 The procedure ended at: 1004 Was the procedure delayed: Yes: Provider late: Provider with other patient on Q9 and Nursing/caregiver late The patient left the procedure room at: 1020 Santosh Staples RN PRE PROCEDURE ASSESSMENT- Cysto Procedure Indication: Cystoscopy Latex Allergy: No Allergies reviewed and updated. Yes Pre-Procedure Vital Signs: BP: 153/116 Pulse: 75 Heart valve replacement: Yes Joint replacement: Yes Back Office UA otained: yes PROCEDURE PREP-Cysto Patient ID with two(2)identifiers verified by: Santosh Staples RN Pre-Procedure Antibiotics: None taken at home nor prior to procedure Patient Prep: Betadine Scrub to perineum and placement of Sterile Drape. COMPLETED Anesthetic Given:Lido-jet given by UNIVERSAL PROTOCOL / SAFETY CHECKLIST Procedure to be performed: Cystoscopy Sign in Communication: Completed Time Out: Team Confirms the Correct Patient, Correct Procedure, Correct Site and Site Marking, Correct Position (if applicable). Sign Out Discussion: Completed Santosh Staples RN POST PROCEDURE NURSE ASSESSMENT Present along with physician during procedure exam. Santosh Staples RN Instruction sheet given and reviewed and patient verbalizes understanding: yes Post Procedure Antibiotic: none Current pain intensity is 0 on a 0-10 pain scale. Post procedure BP: 152/84 P:69 Santosh Staples RN AMBULATORY PATIENT EDUCATION THE FOLLOWING WAS EVALUATED Motivation To Learn: Interested Family/Significant Other Support: at bedside Cognitive Ability: Alert/Oriented Method of Instruction: Individual instruction Written instruction/Handouts Verbal instruction The Following Influencing Factors Were Barriers To This Education Session: None The Following Physical Limitations Were Barriers To This Education Session: None Instruction Provided To: Patient Digital Service Engineer Present: not applicable Discipline: Nursing Learning Topic: SURVIVAL SKILLS: Complication Prevention Symptom Management Patient Evaluation: Verbalizes understanding: Yes Supplemental Material Given: Written Material Instructed By Santosh Staples RN In Department Urology . Santosh Staples RN 06/28/2024 10:16 AM Signed UNIVERSAL PROTOCOL / SAFETY CHECKLIST Procedure to be Performed: Cystoscopy Sign In: A Moment of CARE was completed. Personnel directly involved with the procedure wore the appropriate PPE (Personal Protective Equipment). No special equipment needed. Patient/Surrogate Stated/Verified: PATIENT VERIFIED(optional for EMERGENT procedures): Patient name, Date of , Relevant allergies, and The intended procedure Time Out Communication: Intended patient and procedure match the source documents. Consent documented and matches the intended procedure. Relevant labs, photos, and/or imaging studies have been reviewed. No correct side/site applicable for marking and visibility. Medications required for procedure verified. Fire risk assessed and interventions discussed. No implant(s) inserted. Sign Out: SIGN OUT (optional for EMERGENT procedures): No specimen collected. All instruments, equipment, possible retained foreign bodies accounted for. Post-procedure follow-up management communicated and Plan of Care Visit completed when applicable. GREG Preciado Christopher, MD 07/18/2024 11:39 AM Signed [place] [id number] AMBULATORY PROCEDURE NOTE NAME: Bravo Arce AGE: [age] year old CLINIC #: [id number] DATE: June 28, 2024 SURGEON: Chester Brown PROCEDURE: Cystoscopy ANESTHESIA: Lidocaine gel per urethra DIAGNOSIS: Bladder cancer Date of Initial Diagnosis: 04/2022 Tumor Stage of Initial Diagnosis: T1 Grade at Initial Diagnosis: high. Site of First Diagnosis: Bladder Any Recurrence? N/A Intravesical Treatments: TURBT 05/17 Date of Last Cysto: 01/05/2024 Date of Last Upper Tract Imaging: N/A SURGEON: Dr.Christopher Garcia INDICATION: Surveillance FINDINGS: Tumor present: No Urethra: Normal Prostate: Occlusive lateral lobes and obstructive median lobe Verumontanum: Open Urine cytology: Not sent PROCEDURE: After informed consent was obtained, the patient was taken to the endoscopy suite. A time out was performed where the patient and the procedure were identified in the (more content not included)... Normal [facility] UA DIP, URINE (POC)on 2023 BILIRUBIN UA (POCT) Negative Negative [facility] CLARITY UA (POCT) Clear [facility] COLOR UA (POCT) Yellow [facility] GLUCOSE UA (POCT) Negative Negative mg/dL [facility] Hemoglobin Ql (U) Negative Negative [facility] Interpretation and review of laboratory results Abnormal [facility] KETONE UA (POCT) Negative Negative mg/dL [facility] LEUKOCYTES UA (POCT) Negative Negative [facility] NITRITE UA (POCT) Negative Negative [facility] PH UA (POCT) 7.0 4.5 - 8.0 [facility] Protein Ql (U) Negative Negative mg/dL [facility] SPECIFIC GRAVITY UA (POCT) 1.015 1.005 - 1.030 [facility] UROBILINOGEN UA (POCT) 2.0 Abnormal Debra l E.U./dL [facility] Location:[facility], [address] [place] [address], [address] [place] [address] POINT OF CARE [facility] Consent for Treatmenton 01-24 Consent for Treatment [id number] Normal [facility] Laboratory - Chemistry and C hemistry - challengeon 02-06-2024 Bilirubin Ql (U) Negative [facility] Glucose (U) [Mass/Vol] Negative [facility] Ketones Ql (U) Negative [facility] pH (U) 6.5 [pH] [facility] Specific gravity (U) [Rel density] 1.005 [facility] Urobilinogen (U) [Mass/Vol] 0.2 mg/dL [facility] Laboratory - Specimen inform ationon 02-06-2024 Appearance (U) Cloudy [facility] Color (U) Yellow [facility] Laboratory - Urinalysison Leukocyte esterase Test strip Ql (U) 2+ [facility] Nitrite Ql (U) Negative [facility] Protein Ql (U) 2+ [facility] No Panel Informationon 02-05 Urine Occult Blood 3+ [facility] Urine Cultureon 02-06-2024 Bacteria identified Cx Nom (U) No Growth 2 Days PERFORMED BY: [place] [address] PATHOLOGIST TEACHER OF [employer] ROSA ISELA ESPINOZA M.D. Normal [facility] Comment on above: Performed By: #### B MP, CBC #### [address] Urine culture routineOrdered By: Mylene Dunn on 02-06-2024 Bacteria identified Cx Nom (U) No Growth 2 Days [facility] XR Adult Swallowing Function w/ Videoon 02-06-2024 XR Adult Swallowing Function w/ Video Exam Date/Time: 02/06/2024 09:30 EDT Reason for Exam: R13.12 Dysphagia, oropharyngeal phase Report IMPRESSION: Modified barium swallow performed by Speech Pathology. Please refer to the report by the Speech Pathologist in the medical record. XR Adult Swallowing Function w/ Video HISTORY: R13.12 Dysphagia, oropharyngeal phase TECHNIQUE: Fluoroscopy was provided for an oropharyngeal phase swallowing examination performed by Speech Pathology with the patient swallowing multiple consistencies. Air Kerma (Ka,r): 10.1 mGy DAP: 230.57 uGy*m2 Comparison: 11/17/2023. RESULT: Oral phase: Delayed mastication and bolus formation with early spillage and also nasopharyngeal reflux. Pharyngeal phase: Decreased pharyngeal elevation and epiglottic excursion with laryngeal penetration, without distinct aspiration. Esophageal phase: No diverticulum, stricture, or fistula in the visualized upper esophagus. Residual: Some vallecular and piriform sinus residue, which partially cleared with further swallowing. Ordering Provider: MANNY PARRA FINAL REPORT Dictated: 02/06/2024 11:17 am Blayne Alvarez MD Signed (Electronic Signature): 02/06/2024 11:17 am Signed by: Blayne Alvarez MD Transcribed by: GENO Technologist: GLENYS Technical Comments Radiation Dose: Ka,r in mGy = 10.10 DAP = 230.57 Normal [facility] Heart and Vascular Office/ inic Noteon 01-30-2024 Heart and Vascular Office/Clinic Note Chief Complaint 6 month F/U History of Present Illness Bravo Arce is an 83 year old male with history of coronary artery disease, hypertension, hyperlipidemia, prior atrial fibrillation, prior left atrial appendage ligation, and pacer. He is doing well without new symptoms, specifically no chest pain, dyspnea, edema, orthopnea, claudication, syncope. ECG today shows paced rhythm with underlying AF Review of Systems PHQ Score Initial Depression Screen Score: 0 SCORE Constitutional: no fever, no sweats, no weakness Skin: no rash, no lesions, nobruising/petechiae ENMT: no sore throat, no congestion, no hoarseness Respiratory: no shortness of breath, no cough, no orthopnea, no wheezing Cardiovascular: no chest pain, no palpitations, no edema Gastrointestinal: no nausea, no vomiting, no diarrhea, no GI bleeding Genitourinary: no anuria/oliguria no hematuria Musculoskeletal: no back pain, no trauma Neurologic: no headache, no dizziness, no numbness, no weakness Psychiatric: no sleeping problems, no irritability, no anxiety/depression. Heme/Lymph: no bleeding tendency, no bruising tendency Allergy/Immunologic: no recurrent infections, no impaired immunity Additional ROS info: Except as noted in the above Review of Systems and in the History of Present Illness all other systems have been reviewed and are negative or noncontributory. Physical Exam Vitals & Measurements HR: 50(Peripheral) BP: 134/86 SpO2: 91% HT: 72 in HT: 182 cm WT: 74 kg WT: 162.8 lb BMI: 22.34 General: alert, no acute distress Neck: Supple, noJVD nocarotid bruit Cardiovascular: regular rate and rhythm, no murmur normal peripheral perfusion Respiratory: Lungs CTA, respirations non labored Extremities: no edema Neurological: oriented x 4, LOC appropriate for age, sensation equal & normal bilaterally, speech normal Skin: Warm, dry, intact- no rash or concerning lesions Assessment/Plan 1. Coronary artery disease (I25.10: Atherosclerotic heart disease of [place] coronary artery without angina pectoris) CAD on Plavix, statin, b-jac plus/minus JAMIE. Risk factor modification, diet, exercise and tobacco discussed. 2. Atrial fibrillation (I48.91: Unspecified atrial fibrillation) Continue rate control with metoprolol. Hx MAI ligation 3. Pacemaker (Z95.0: Presence of cardiac pacemaker) Continue device checks through [facility] Follow up in 6 mo Follow-up No qualifying data available Problem List/Past Medical History Ongoing Anticoagulated Atrial fibrillation Bladder cancer Bladder mass Bladder stones BPH with obstruction/lower urinary tract symptoms BPH without urinary obstruction Chronic GERD Coronary artery disease Difficulty swallowing Elevated PSA Gross hematuria Heartburn Incomplete bladder emptying Kidney disease Nocturia Pacemaker PAF (paroxysmal atrial fibrillation) Right renal stone Severe mitral regurgitation Severe tricuspid regurgitation SSS (sick sinus syndrome) Urinary hesitancy UTI symptoms Weak urine stream Historical No qualifying data Procedure/Surgical History Biopsy of bladder (10/08/2022), TURP - Transurethral resection of prostate (10/08/2022), Cardiac catheterization, left heart (05/27/2022), Cardiac catheterization, left heart (05/27/2022), EGD - Esophagogastroduodenoscop y (03/30/2022), Cystoscopy (01/26/2022), Transrectal biopsy of prostate using ultrasound guidance (12/02/2010), Abdominal hernia, Cholecystectomy, Hip replacement, Insertion of cardiac pacemaker, Repair of femoral hernia with groin incision, Tonsillectomy. Medications clopidogrel 75 mg Tab, 75 mg= 1 tab(s), Oral, Daily, 3 refills finasteride 5 mg Tab, 5 mg= 1 tab(s), Oral, Daily Flomax 0.4 mg Cap, 0.4 mg= 1 cap(s), Oral, Daily, 3 refills furosemide 20 mg Tab, 20 mg= 1 tab(s), Oral, MonWedFri, 3 refills Lactated Ringers IV Jo Ann 1000 mL 1,000 mL, 1000 mL, IV latanoprost Opth 0.005% Jo Ann, 1 drop(s), Eye-Both, Once a day (at bedtime) lisinopril 2.5 mg Tab, 2.5 mg= 1 tab(s), Oral, Daily, 3 refills Lopressor 25 mg oral tablet, 25 mg= 1 tab(s), Oral, BID, 5 refills rosuvastatin 10 mg Tab, 10 mg= 1 tab(s), Oral, Daily, Not taking Sodium Chloride 0.9% IV Jo Ann 1000 mL 1,000 mL, 1000 mL, IV Allergies Allergy to penicillin ciprofloxacin Social History Alcohol - Denies Alcohol Use, 04/16/2019 Current, 04/16/2019 Employment/School - Not employed or in school, 05/26/2022 Exercise - Does not exercise, 05/26/2022 Home/Environment - No Risk, 05/26/2022 Nutrition/Health - No Risk, 05/26/2022 Sexual - No Risk, 05/26/2022 Substance Abuse - No Risk, 05/26/2022 Tobacco - Denies Tobacco Use, 04/16/2019 Never (less than 100 in lifetime) Tobacco Use:. Never Smokeless Tobacco Use:., 01/06/2024 Family History Family history is negative Immunizations Vaccine Date Status Comments influenza virus vaccine, inactivated 07/23/2022 Recorded SARSCoV2 mRNA(eaawadyvo-mtsu-njspp s) vac 02/26/2022 (more content not included)... Normal [facility] Comment on above: Result Comment: Elec tronically Signed By: Brandan MAHONEY, Prabhjot St\.br\Date and Time Signed: 01/30/24 10:10 EDT Physician Orderon 01-19-2024 Physician Order [id number]#1.00TIFF [facility] ST - Orderson 01-18-2024 ST - Orders [id number]#1.00TIFF [facility] Consent for Treatmenton 12-25 Consent for Treatment [id number]#1.00TIFF [facility] Physician Orderon 01-06-2024 Physician Order [id number]#1.00TIFF [facility] UA DIP, URINE (POC)on 2023 BILIRUBIN UA (POCT) Negative Negative [facility] CLARITY UA (POCT) Clear [facility] COLOR UA (POCT) Yellow [facility] GLUCOSE UA (POCT) Negative Negative mg/dL [facility] Hemoglobin Ql (U) Negative Negative [facility] KETONE UA (POCT) Negative Negative mg/dL [facility] LEUKOCYTES UA (POCT) Negative [facility] NIT[facility] (PO[facility]) Negative Negative [facility] PH UA (POCT) 6.0 4.5 - 8.0 [facility] Protein Ql (U) Negative Negative mg/dL [facility] SPECIFIC GRAVITY UA (POCT) 1.020 1.005 - 1.030 [facility] UROBILINOGEN UA (POCT) 1.0 E.U./dL Debra l E.U./dL [facility] UA DIP, URINE (POC)on 2023 BILIRUBIN UA (POCT) Negative Negative [facility] CLARITY UA (POCT) Clear [facility] COLOR UA (POCT) Yellow [facility] GLUCOSE UA (POCT) Negative Negative mg/dL [facility] Hemoglobin Ql (U) Trace-intact Abnormal Negative [facility] KETONE UA (POCT) Negative Negative mg/dL [facility] LEUKOCYTES UA (POCT) Negative [facility] NITRITE UA (POCT) Negative Negative [facility] PH UA (POCT) 6.0 4.5 - 8.0 [facility] Protein Ql (U) Negative Negative mg/dL [facility] SPECIFIC GRAVITY UA (POCT) 1.015 1.005 - 1.030 [facility] UROBILINOGEN UA (POCT) 0.2 E.U./dL Debra l E.U./dL [facility] Urinalysis - DIPSTICKon 11-0 Appearance (U) Cloudy [employer] Other Bilirubin Ql (U) Negative [employer] Other Color (U) Dark yellow [employer] Other Glucose Ql (U) Negative [employer] Other Hemoglobin Ql (U) + [employer] Other Ketones Ql (U) Negative [employer] Other Leukocyte esterase Test strip Ql (U) +++ [employer] Other Nitrite Ql (U) + [employer] Other pH (U) 5.0 [pH] [employer] Other Protein Ql (U) ++ [employer] Other Specific gravity (U) [Rel density] 1.010 [employer] Other Urobilinogen (U) [Mass/Vol] 0.2 mg/dL [employer] Other Urinalysis - DIPSTICK [employer] Other UA DIP, URINE (POC)on 2022 BILIRUBIN UA (POCT) Negative Negative [facility] CLARITY UA (POCT) Slightly Cloudy Cl [facility] COLOR UA (POCT) Yellow [facility] GLUCOSE UA (POCT) Negative Negative mg/dL [facility] Hemoglobin Ql (U) Small Abnormal Negative [facility] KETONE UA (POCT) Negative Negative mg/dL [facility] LEUKOCYTES UA (POCT) Large Abnormal Negative [facility] NITRITE UA (POCT) Positive Abnormal Negative [facility] PH UA (POCT) 6.5 4.5 - 8.0 [facility] Protein Ql (U) 30 mg/dL Abnormal Negative mg/dL [facility] SPECIFIC GRAVITY UA (POCT) 1.015 1.005 - 1.030 [facility] UROBILINOGEN UA (POCT) 0.2 E.U./dL Debra l E.U./dL [facility] Urinalysis - DIPSTICKon 08-0 Appearance (U) cloudy [employer] Other Bilirubin Ql (U) [employer] Other Color (U) dark yellow [employer] Other Glucose Ql (U) Negative [employer] Other Hemoglobin Ql (U) [employer] Other Ketones Ql (U) Negative [employer] Other Leukocyte esterase Test strip Ql (U) moderate [employer] Other Nitrite Ql (U) Negative [employer] Other pH (U) 5.0 [pH] [employer] Other Protein Ql (U) ++ [employer] Other Specific gravity (U) [Rel density] 1.010 [employer] Other Urobilinogen (U) [Mass/Vol] 0.2 mg/dL [employer] Other Urinalysis - DIPSTICK Nor [employer] Other CREATININEon 01-11-2023 Creatinine [Mass/Vol] 0.93 mg/dL Normal 0.70-1.30 [facility] Comment on above: Performed By: #### C ON LICENSE OF [facility] #### [facility] [address] [place] [address] Dr. Luis Manuel Ryan EGFR-AF CITIZ[place] >60 Normal >=60 [facility] Comment on above: Performed By: #### C VDTBH #### [facility] [address] [place], [place] [address] Dr. Luis Manuel Ryan EGFR-NON AF CITIZEN OF [place] >60 Normal >=60 [facility] Comment on above: Performed By: #### C VDTBH #### [facility] [address] [place], [place] [address] [address] WATCHMAN FULL CONTRAST on 01-11-2023 CT WATCHMAN FULL CONTRAST Addendum Begins Patient Name: BRAVO ARCE ADDENDUM: NON-CARDIOVASCULAR FINDINGS INCLUDED LUNGS, AIRWAYS AND PLEURA Endotracheal / endobronchial lesion: Negative Nodule: Negative Airspace disease: Negative Pleural effusion: Negative Pneumothorax: Negative Other: Mild centrilobular emphysema INCLUDED NON-CARDIOVASCULAR UNIQUE AND MEDIASTINUM Adenopathy: Few enlarged lymph nodes at both unique, some of which are noncalcified. There also calcified hilar nodes and other calcified mediastinal nodes implying all of the lymph nodes may be granulomatous Included esophagus: Unremarkable Other: No acute or contributory unanticipated findings INCLUDED BONES: No acute skeletal findings, noting less sensitivity and specificity without dedicated sagittal and coronal reformatted series. INCLUDED CHEST WALL No acute or contributory unanticipated findings INCLUDED UPPER ABDOMEN No acute or contributory unanticipated findings ------- NON-CARDIOVASCULAR IMPRESSION RIGHT GREATER THAN LEFT HILAR ADENOPATHY, PROBABLY GRANULOMATOUS GIVEN THAT SOME BUT NOT ALL OF THE NODES ARE CALCIFIED. GIVEN THE EMPHYSEMA, A COMPLETE CHEST CT MAY BE CONSIDERED TO EXCLUDE A LUNG NODULE NOT INCLUDED IN THE FIELD OF VIEW ON TODAY'S EXAM NOTE THIS ADDENDUM IS SOLELY FOR INTERPRETATION OF ANATOMY OUTSIDE THE CARDIOVASCULAR SYSTEM. INTERPRETATION OF AND REPORTING OF THE CARDIOVASCULAR STRUCTURES ARE THE SOLE RESPONSIBILITY OF THE NEW PATIENT ESCORT SUBMITTING THE ORIGINAL REPORT (NOT THIS ADDENDUM) Electronically signed by: JE BAI MD Addendum Ends Patient Name: BRAVO ARCE STUDY: TH CT WATCHMAN FULL CONTRAST; 01/11/2023 1:34 pm INDICATION: PRE WATCHMAN PT WILL HAVE LABS DONE Left atrial appendage clipped. . COMPARISON: None. ACCESSION NUMBER(S): [id number] ORDERING CLINICIAN: PRABHJOT CHRISTOFFERSON TECHNIQUE: Using multidetector CT technology, Ronak CT 64-slice scanner, axial, sequential imaging with retrospective gating and minimal slice thickness was performed of the chest following the intravenous administration of contrast material. A low-osmolar contrast agent was used 70 mL of Omnipaque 350. Also, the imaging was repeated after 30 sec delay as per watchman protocol. Also, patient received 500 mL of normal saline prior to exam as per protocol. For optimization of anatomic evaluation, multiplanar reconstruction, maximum intensity projections, and advanced 3-D off-line postprocessing were performed on a dedicated stand-alone workstation under the direct supervision of the interpreting physician. CT Dose-Length Product (DLP): 1296.5 mGy/cm CT Dose Reduction Employed: Yes Prospective triggering, iterative reconstruction FINDINGS: LEFT ATRIAL APPENDAGE: Left atrial appendage clip is present. There is a small residual left atrial appendage pocket. Ostial diameter: 23 x 15 mm Depth: 10 mm No evidence of left atrial appendage thrombus. CORONARY ARTERIES: The study was not tailored for the evaluation of coronary arteries. There is normal origin of the coronary arteries. Coronary anatomy is right dominant. Diffuse point lay ira coronary artery calcification. Coronary artery bypass graft anatomy: Patent JUÁREZ-LAD. Proximal bypass graft is not visualized. Patent saphenous graft to right coronary artery. Patent saphenous graft to obtuse marginal branch. CARDIAC CHAMBERS: The cardiac chambers demonstrate normal atrioventricular and ventriculoarterial concordance, and systemic and pulmonary venous return. LEFT ATRIUM: Dilated 6.3 cm. RIGHT ATRIUM: Dilated 5.7 cm. Pacemaker leads present. INTERATRIAL SEPTUM: Intact. LEFT VENTRICLE: Normal size ( - cm) RIGHT VENTRICLE: Normal size device leads present. AORTIC VALVE: The aortic valve is trileaflet in morphology. No calcifications. MITRAL VALVE: Mitral valve ring present. THORACIC AORTA: The visualized thoracic aorta is normal in course, caliber, and contour. There is no acute aortic pathology, such as dissection, intramural hematoma, or contained rupture. The aortic arch is not included on this examination. PERICARDIUM: There is no pericardial effusion of thickening. IMPRESSION: 1. Left atrial appendage clip is present. There is a small residual left atrial appendage pocket. 2. Residual left atrial appendage pocket ostial orifice dimension 23 x 15 mm. 3. Residual left atrial appendage depth 10 mm. 3. No evidence of left atrial/left atrial appendage thrombus. [facility] Supervisor: Dr. Jason Comer, Date: 01/11/2023 1:56 pm Electronically signed by: JE BAI MD Normal [facility] URINALYSISOrdered By: Tanisha Delaney on 11-23-2022 Bacteria LM Ql (Urine sed) 3+ /HPF Invalid Interpretation Code Trace/HPF [facility] UA Auto SS Bilirubin Ql (U) Negative (11/23/22 2:08 PM) Normal Negative [facility] UA Auto SS Clarity (U) Cloudy *ABN* (11/23/22 2:08 PM) Invalid Interpretation Code Clear [facility] UA Auto SS Color (U) Yellow (11/23/22 2:08 PM) Normal Yellow [facility] UA Auto SS Epithelial cells.squamous LM.HPF (Urine sed) [#/Area] 0-2 /HPF Normal 0-2/HPF [facility] UA Aut o SS Glucose Test strip (U) [Mass/Vol] Negative (11/23/22 2:08 PM) Normal Negative [facility] UA Auto SS Hemoglobin Ql (U) 2+ *ABN* (11/23/22 2:08 PM) Invalid Interpretation Code Negative [facility] UA Auto SS Ketones (U) [Mass/Vol] Negative (11/23/22 2:08 PM) Normal Negative [facility] UA Auto SS [place].plasma/[place] .RBC (Bld) [Mass ratio] 4-20 /HPF Normal 0-3/HPF [facility] UA Auto SS Nitrite Ql (U) Positive *ABN* (11/23/22 2:08 PM) Invalid Interpretation Code Negative [facility] UA Auto SS pH (U) 6.0 *NA* (11/23/22 2:08 PM) Invalid Interpretation Code 5.0 - 9.0 [facility] UA Auto SS Protein (U) [Mass/Vol] 1+ *ABN* (11/23/22 2:08 PM) Invalid Interpretation Code Negative [facility] UA Auto SS Specific gravity (U) [Rel density] 1.020 *NA* (11/23/22 2:08 PM) Invalid Interpretation Code 1.005 - 1.030 [facility] UA Auto SS UA Spec Desc Random Urine (11/23/22 2:08 PM) Normal [facility] UA Auto SS Urobilinogen Qn (U) 1.5906118 {Rambo'U}/dL Normal 0.0 - 1.0 EU/dL [facility] UA Auto SS WBC Auto Ql (U) 3+ *ABN* (11/23/22 2:08 PM) Invalid Interpretation Code Negative [facility] UA Auto SS WBC LM.HPF (Urine sed) [#/Area] /[HPF] Invalid Interpretation Code 0-5/HPF [facility] UA Auto SS URINALYSIS, REFLEX MICROSCOP ICon 10-19-2022 Bacteria LM.HPF (Urine sed) [#/Area] Rare Abnormal None Seen /HPF [facility] Bilirubin Ql (U) Negative Negative [facility] Calcium Oxalate Crystals Few Abnormal None Seen /HPF [facility] Clarity (Unsp spec) Turbid Abnormal Clear [facility] Color (U) Light [place] Abnormal Yellow [facility] Glucose Test strip (U) [Mass/Vol] Negative Trace, Negative [facility] Hemoglobin Ql (U) 3+ Abnormal Negative, Trace [facility] Ketones Ql (U) Negative Negative, Trace [facility] Leukocyte esterase Test strip Ql (U) 500 Karon/mL Abnormal Negative, 25 Karon/mL [facility] Nitrite Ql (U) 2+ Abnormal Negative [facility] pH (U) 5.5 [pH] 5.0 - 8.0 [facility] Protein (U) [Mass/Vol] 1+ Abnormal Trace , Negative [facility] RBC LM.HPF (Urine sed) [#/Area] /[HPF] Abnormal 0-3 /HPF [facility] Specific gravity (U) [Rel density] 1.021 1.005 - 1.030 [facility] Urobilinogen Ql (U) Negative Negative [facility] WBC LM.HPF (Urine sed) [#/Area] /[HPF] Abnormal 0-5 /HPF [facility] No Panel Informationon 10-01 BLANK _ [facility] Implant Date 10/19/2010 [facility] Model 1888TC Tendril ST Optim C [facility] CHECKon AV Delay Adaptive Rate Maximum (bpm) 120 {beats}/min [facility] Battery Voltage (volts) 3.01 V [facility] Tyrese RA Pacing Polarity BI [facility] Tyrese RA Sensing Polarity BI [facility] Tyrese RV Pacing Amplitude (volts) 1 V [facility] Tyrese RV Pacing Polarity BI [facility] Tyrese RV Pacing Pulse Width (ms) 0.4 ms [facility] Tyrese RV Sensing Amplitude (mvolts) 0.5 mV [facility] Tyrese RV Sensing Polarity BI [facility] Tyrese RV Sensing Refractory Period (ms) 250 ms [facility] Demand Interval (ms) 858 [facility] Hysteresis Rate (bpm) 60 {beats}/min [facility] Implant Date 09/10/2021 [facility] Lead1 Mfg STJ [facility] Lead2 Mfg STJ [facility] Location RV [facility] Location RA [facility] Lower Rate (bpm) 70 {beats}/min [facility] Max Sensor Rate (bmp) 120 {beats}/min [facility] Model 2272 Assurity MRI [facility] Pacemaker Dependent? NO [facility] Pacing Mode VVIR [facility] PM-Device Mfg STJ [facility] PM-Percent Pacing (A) 0 % [facility] PM-Percent Pacing (V) 21 % [facility] PM-Rate Modulation Acceleration Reaction Fast [facility] PM-Rate Modulation Deceleration Medium [facility] [facility] PM-Rate Modulation [place] Auto (+2) [facility] PM-Rate Modulation Threshold Auto (+0.0) [facility] Rhythm Atrial Fibrillation [facility] Serial Number [id number] [facility] Serial Number [id number] [facility] Serial Number [id number] [facility] Thresh RA Sensing Amplitude (mvolts) 0.8 mV [facility] Thresh RV Capture Amplitude (volts) 1 V [facility] Thresh RV Capture Duration (ms) 0.4 ms [facility] Thresh RV Sensing Amplitude (mvolts) 7.8 mV [facility] Established Visit (Otolaryng ology)on 08-24-2022 Established Visit (Otolaryngology) Diagnoses/Problems Impacted cerumen of left ear (380.4) (H61.22) Impacted cerumen of right ear (380.4) (H61.21) 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 There is no evidence of any tumor recurrence. Prior issues with reflux laryngitis. He had had some dilation done recently. He does not use any more pump inhibitors. That does not seem to be an issue at this point. Impacted cerumen of the both ears which was addressed with a small instrument. I will see him in 6 months. Provider Impressions Status post surgery and radiation therapy for metastatic skin carcinoma. There is no evidence of any tumor recurrence. Prior issues with reflux laryngitis. He had had some dilation done recently. He does not use any more pump inhibitors. That does not seem to be an issue at this point. Impacted cerumen of the both ears which was addressed with a small instrument. I will see him in 6 months. 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 On December 21, 2017 he underwent surgical excision. He had excision of the skin, parotidectomy, and neck dissection. He was found to have more skin involvement than we thought. The pathology showed squamous cell carcinoma involving the parotid and adjacent tissues. The margins were negative. He also had 3 positive nodes. He completed his radiation therapy in February 2018. He had a TSH in October 2021 was normal. He also had a chest x-ray in every 2021 which was negative. He does have some issues with dysphagia. He was eventually dilated. He ended up getting heart surgery since his last visit. Interestingly that took care of a lot of his symptoms. 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) Mitral valve disease (394.9) (I05.9) Neck pain (723.1) (M54.2) Observation for suspected neoplasm (V71.1) (Z03.89) Reflux laryngitis (464.00,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,K21.9) Reflux laryngitis (464.00,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,K21.9) 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) Skin cancer of face (173.30) (C44.300) Past Medical History History of malignant neoplasm (V10.90) (Z85.9) History of ulceration (V13.89) (Z87.898) History 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) Resolved Date: 06 Dec 2017 Surgical History History of Atrial appendage closure History of Coronary artery bypass graft History of Gastrointestinal Surgery History of Hernia Repair History of Hip Replacement History of Mitral valve repair History of Pacemaker Placement Family History Family history of Family history of MVA (motor vehicle accident) Family history of Family history of suicide (V17.0) (Z81.8) Social History Former consumption of alcohol (V11.3) (Z87.898) Lives with family Never a smoker Retired Allergies Penicillins Recorded By: Lissa Giordano; 12/06/2017 3:12:26 PM Current Meds Medication NameInstruction Atorvastatin Calcium 80 MG Oral TabletTAKE 1 TABLET DAILY. Clopidogrel Bisulfate 75 MG Oral TabletTAKE 1 TABLET DAILY. Eliquis 2.5 MG Oral TabletTake 1 tablet twice daily Furosemide 20 MG Oral TabletTAKE 1 TABLET BY MOUTH EVERY DAY Latanoprost 0.005 % Ophthalmic SolutionINSTILL 1 DROP Bedtime Into each eye Lisinopril 2.5 MG Oral TabletTAKE 1 TABLET DAILY. Metoprolol Tartrate 25 MG Oral TabletTAKE 1 TABLET TWICE DAILY. Silodosin 8 MG Oral CapsuleTAKE 1 CAPSULE DAILY WITH FOOD. Vitals Vital Signs Recorded: [id number] 10:50AM Height6 ft Qvzhit158 lb BMI Dwbvrhvuxk58.11 kg/m2 BSA Calculated1.95 Tobacco Useb) No PHQ-2 #1. Over the last 2 weeks have you felt down, depressed or hopeless? (If yes, answer PHQ-9 below)No Falls Screening (Age 18+)a) No falls within the last year Physical Exam Palpation of the parotid, neck, and thyroid field fails to show any worrisome masses or adenopathies. More specifically I cannot appreciate anything worrisome on the treatment side. Examination of the oral cavity and oropharynx is negative. He does have significant dryness. A flexible laryngoscopy was carried out. Under topical Xylocaine and Kush-Synephrine the scope was introduced through the nostril. The nasopharynx, base of tongue, hypopharynx, and larynx are visualized. The vocal cords a (more content not included)... Normal [employer] Tobacco Screening.on 022 Adult depression screening assessment No [facility]-Otolaryn go [employer] Work Phone: Fall risk assessment a) No falls within the last year [facility]-Otolaryngo [employer] Work Phone: Tobacco use status CPHS b) No [facility]Otolaryngo [employer] Work Phone: CBC AUTO DIFFon 08-14-2022 BASO # 0.0 103/ul Normal 0.0-0.1 [facility] Comment on above: Performed By: #### C VDTBH #### [facility] [address] [place] [address] Dr. Luis Manuel Ryan Basophils/100 WBC (Bld) 0.5 % Normal 0.2-2.0 [facility] Comment on above: Performed By: #### C VDTBH #### [facility] [address] [place] [address] Dr. Luis Manuel Ryan EO # 0.1 103/ul Normal 0.0-0.7 [facility] Comment on above: Performed By: #### C VDTBH #### [facility] [address] [place] [address] Dr. Luis Manuel Ryan Eosinophils/100 WBC (Bld) 1.4 % Normal 0.9-7.0 [facility] Comment on above: Performed By: #### C VDTBH #### [facility] [address] [place] [address] Dr. Luis Manuel Ryan Erythrocyte distribution width (RBC) [Ratio] 18.9 % Critically high 11.0-15.0 [facility] Comment on above: Performed By: #### C VDTBH #### [facility] [address] [place] [address] Dr. Luis Manuel Ryan Hematocrit (Bld) [Volume fraction] 28.8 % Critically low 42.0-54.0 [facility] Comment on above: Performed By: #### C VDTBH #### [facility] [address] [place] [address] Dr. Luis Manuel Ryan Hemoglobin (Bld) [Mass/Vol] 9.2 g/dL Critically low 14.0-18.0 [facility] Comment on above: Performed By: #### C VDTBH #### [facility] [address] [place] [address] Dr. Luis Manuel Ryan IG # 0.01 10e3/ul Normal 0.00-0.03 [facility] Comment on above: Performed By: #### C VDTBH #### [facility] [address] [place] [address] Dr. Luis Manuel Ryan IG % 0.2 % Normal 0.0-0.5 [facility] Comment on above: Performed By: #### C VDTBH #### [facility] [address] [place] [address] Dr. Luis Manuel Ryan LYMPH # 0.9 103/ul Critically low 1.2-3.[address] [facility] Comment on above: Performed By: #### C VDTBH #### [facility] [address] [place] [address] Dr. Luis Manuel Ryan Lymphocytes/100 WBC (Bld) 14.8 % Critically low 20.5-60.0 [facility] Comment on above: Performed By: #### C VDTBH #### [facility] [address] [place] [address] Dr. Luis Manuel Ryan MANUAL DIFF REQ NO Normal [facility] Comment on above: Performed By: #### C VDTBH #### [facility] [address] [place] [address] Dr. Luis Manuel Ryan MCH (RBC) [Entitic mass] 26.9 pg Normal 25.9-34.0 [facility] Comment on above: Performed By: #### C VDTBH #### [facility] [address] [place] [address] Dr. Luis Manuel yRan MCHC (RBC) [Mass/Vol] 31.9 g/dL Normal 29.9-35.2 [facility] Comment on above: Performed By: #### C VDTBH #### [facility] [address] [place] [address] Dr. Luis Manuel Ryan MCV (RBC) [Entitic vol] 84.2 fL Normal 80.0-94.0 [facility] Comment on above: Performed By: #### C VDTBH #### [facility] [address] [place] [address] Dr. Luis Manuel Ryan MONO # 0.7 103/ul Normal 0.3-0.8 [facility] Comment on above: Performed By: #### C VDTBH #### [facility] [address] [place] [address] Dr. Luis Manuel Ryan Monocytes/100 WBC (Bld) 12.2 % Critically high 1.7-12.0 [facility] Comment on above: Performed By: #### C VDTBH #### [facility] [address] [place] [address] Dr. Luis Manuel Ryan NEUT # 4.2 103/ul Normal 1.4-6.5 [facility] Comment on above: Performed By: #### C VDTBH #### [facility] [address] [place] [address] Dr. Luis Manuel Ryan Neutrophils/100 WBC (Bld) 70.9 % Normal 43.0-75.0 [facility] Comment on above: Performed By: #### C VDTBH #### [facility] [address] [place] [address] Dr. Luis Manuel Ryan Platelet mean volume (Bld) [Entitic vol] 10.2 fL Normal 9.5-13.5 [facility] Comment on above: Performed By: #### C VDTBH #### [facility] [address] [place] [address] Dr. Luis Manuel Rayn PLT 161 103/ul Normal 150-450 [facility] Comment on above: Performed By: #### C VDTBH #### [facility] [address] [place] [address] Dr. Luis Manuel Ryan RBC 3.42 106/ul Critically low 4.70-6.10 [facility] Comment on above: Performed By: #### C VDTBH #### [facility] [address] [address] [address] Luis Manuel Ryan WBC 5.9 103/ul Normal 4.0-11.0 [facility] Comment on above: Performed By: #### C VDTBH #### [facility] [address] [address] [address] Luis Manuel Ryan ER URINE PROFILEon 2 Bilirubin Ql (U) SMALL Abnormal NEGATIVE [facility] Comment on above: Performed By: #### C MP #### [facility] [address] [place] [address] Dr. Luis Manuel Ryan Clarity (U) CLEAR Normal CLEAR [facility] Comment on above: Performed By: #### C MP #### [facility] [address] [place] [address] Dr. Luis Manuel Ryan Color (U) YELLOW Normal YELLOW [facility] Comment on above: Performed By: #### C MP #### [facility] [address] [place] [address] Dr. Luis Manuel JACOBO A micrscopic examina tion will be performed if indicated. Normal [facility] Comment on above: Performed By: #### C MP #### [facility] [address] [place] [address] Dr. Luis Manuel Ryan Glucose Ql (U) Negative Normal NEGATIVE [facility] Comment on above: Performed By: #### C MP #### [facility] [address] [place] [address] Dr. Luis Manuel Ryan Hemoglobin Ql (U) Negative Normal NEGATIVE [facility] Comment on above: Performed By: #### C MP #### [facility] [address] [place] [address] Dr. Luis Manuel Ryan Ketones Ql (U) 40 mg/dl Abnormal NEGATIVE [facility] Comment on above: Performed By: #### C MP #### [facility] [address] [address] [address] Luis Manuel Ryan LEUKOCYTES Negative Normal NEGATIVE [facility] Comment on above: Performed By: #### C MP #### [facility] [address] [place] [address] Dr. Luis Manuel Ryan Nitrite Ql (U) Negative Normal NEGATIVE [facility] Comment on above: Performed By: #### C MP #### [facility] [address] [place] [address] Dr. Luis Manuel Ryan pH (U) 5.5 [pH] Normal 5-9 [facility] Comment on above: Performed By: #### C MP #### [facility] [address] [place] [address] Dr. Luis Manuel Ryan SPEC GRAVITY 1.025 Normal 1.005-<=1. 025 [facility] Comment on above: Performed By: #### C MP #### [facility] [address] [place] [address] Dr. Luis Manuel Ryan UA PROTEIN Negative Normal NEGATIVE/ TRACE [facility] Comment on above: Performed By: #### C MP #### [facility] [address] [place] [address] Dr. Luis Manuel Ryan UR MICRO IND NOT INDICATED Normal [facility] Comment on above: Performed By: #### C MP #### [facility] [address] [place] [address] Dr. Luis Manuel Ryan Urobilinogen Qn (U) 1.0 {Rambo'U}/dL Normal 0.2 - 1. 0 [facility] Comment on above: Performed By: #### C MP #### [facility] [address] [place] [address] Dr. Luis Manuel Ryan PROF 14(COMP METB)on 022 Albumin [Mass/Vol] 2.6 g/dL Critically low 3.4-5.0 [facility] Comment on above: Performed By: #### C MP #### [facility] [address] [place] [address] Dr. Luis Manuel Ryan Albumin/Globulin [Mass ratio] 0.7 {ratio} Normal [facility] Comment on above: Performed By: #### C MP #### [facility] [address] [address] [address] Luis Manuel Ryan ALP [Catalytic activity/Vol] 94 U/L Normal 46-116 [facility] Comment on above: Performed By: #### C MP #### [facility] [address] [address] [address] Luis Manuel Ryan ALT [Catalytic activity/Vol] 19 U/L Normal 16-63 [facility] Comment on above: Performed By: #### C MP #### [facility] [address] [address] [address] Luis Manuel Ryan Anion gap [Moles/Vol] 8.9 mmol/L Normal [facility] Comment on above: Performed By: #### C MP #### [facility] [address] [place] [address] Dr. Luis Manuel Ryan AST [Catalytic activity/Vol] 25 U/L Normal 15-37 [facility] Comment on above: Performed By: #### C MP #### [facility] [address] [place] [address] Dr. Luis Manuel Ryan Bilirubin [Mass/Vol] 1.0 mg/dL Normal 0.2-1.0 [facility] Comment on above: Performed By: #### C MP #### [facility] [address] [place] [address] Dr. Luis Manuel Ryan Calcium [Mass/Vol] 8.1 mg/dL Critically low 8.5-10.1 [facility] Comment on above: Performed By: #### C MP #### [facility] [address] [place] [address] Dr. Luis Manuel Ryan Chloride [Moles/Vol] 103 mmol/L Normal 98-107 [facility] Comment on above: Performed By: #### C MP #### [facility] [address] [place] [address] Dr. Luis Manuel Ryan CO2 [Moles/Vol] 27.0 mmol/L Normal 21.0-32.0 [facility] Comment on above: Performed By: #### C MP #### [facility] [address] [place] [address] Dr. Luis Manuel Ryan Creatinine [Mass/Vol] 0.88 mg/dL Normal 0.70-1.30 [facility] Comment on above: Performed By: #### C MP #### [facility] [address] [place] [address] Dr. Luis Manuel Ryan EGFR-AF CITIZ[place] >60 Normal >=60 [facility] Comment on above: Performed By: #### C MP #### [facility] [address] [address] [address] Luis Manuel Ryan EGFR-NON AF CITIZEN OF [place] >60 Normal >=60 [facility] Comment on above: Performed By: #### C MP #### [facility] [address] [place] [address] Dr. Luis Manuel Ryan Globulin (S) [Mass/Vol] 3.7 g/dL Normal [facility] Comment on above: Performed By: #### C MP #### [facility] [address] [place] [address] Dr. Luis Manuel Ryan Glucose [Mass/Vol] 113 mg/dL Critically high 74-[address] [facility] Comment on above: Performed By: #### C MP #### [facility] [address] [place] [address] Dr. Luis Manuel Ryan Potassium [Moles/Vol] 3.9 mmol/L Normal 3.5-5.1 [facility] Comment on above: Performed By: #### C MP #### [facility] [address] [place] [address] Dr. Luis Manuel Ryan Protein [Mass/Vol] 6.3 g/dL Critically low 6.4-8.2 [facility] Comment on above: Performed By: #### C MP #### [facility] [address] [place] [address] Dr. Luis Manuel Ryan Sodium [Moles/Vol] 135 mmol/L Critically low 136-145 [facility] Comment on above: Performed By: #### C MP #### [facility] [address] [place] [address] Dr. Luis Manuel Ryan Urea nitrogen [Mass/Vol] 11.0 mg/dL Normal 7.0-18.0 [facility] Comment on above: Performed By: #### C MP #### [facility] [address] [place] [address] Dr. Luis Manuel Ryan Urea nitrogen/Creatinine [Mass ratio] 12.5 mg/mg Normal [facility] Comment on above: Performed By: #### C MP #### [facility] [address] [place] [address] Dr. Luis Manuel Ryan PROTIMEon 08-14-2022 INR Coag (PPP) [Relative time] 1.09 {INR} Normal [facility] Comment on above: Performed By: #### C MP #### [facility] [address] [place] [address] Dr. Luis Manuel Ryan INR GUIDELINES SEE BELOW Normal [facility] Comment on above: Result Comment: PHI RED INR: 2.0 - 3.0 CONDITIONS NOT LISTED BELOW 2.5 - 3.5 FOR PROSTHETIC HEART VALVE REPLACEMENT 2.5 - 3.5 RECURRENT THROMBOSIS Performed By: #### C MP #### [facility] [address] [place] [address] Dr. Luis Manuel Ryan PT Coag (PPP) [Time] 11.7 s Critically high 9.0-11.6 [facility] Comment on above: Performed By: #### C MP #### [facility] [address] [place] [address] Dr. Luis Manuel Ryan PTTon 08-14-2022 aPTT Coag (Bld) [Time] 30.6 s Normal 22.3-36.2 [facility] Comment on above: Performed By: #### C VDTBH #### [facility] [address] [place] [address] Dr. 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 Pollock has made an excellent recovery from coronary bypass grafting x3 and mitral valve repair and left atrial appendage occlusion. He continues with follow-up under the care of the cardiology service. I have discharged him from further follow-up but I am happy see him again at any point if required Chief Complaint Patient is here for a post-op visit following a CABG x 3 / mitral valve repair / AMI clip done on Jun 04, 2022. KAVIN Richards, RN. Adult Risk ScreeningThere are no spiritual/cultural practices/values/needs that are important to know Initial Fall Risk Screening: BRAVO has not fallen in the last 6 months. The patient is not using an assistive device. Living Will. Living Will: No living will on file. Healthcare POA: No healthcare proxy on file. History of Present Illness I reviewed him at the clinic today. He underwent coronary bypass grafting x3 and mitral valve repair and left atrial appendage occlusion on June 04 from which she made an excellent recovery. At review today he remains very well still has the NG tube and overall has made an excellent recovery. Is being followed up by Dr. Uriarte and is due for the follow-up in the near future. He has not had any rehab yet. Review of Systems Constitutional: not feeling tired. Cardiovascular: no intermittent leg claudication and as noted in HPI. Respiratory: no cough and no shortness of breath. Gastrointestinal: no change in bowel habits and no blood in stools. Integumentary: no skin rashes. Neurological: no seizures and no frequent falls. All other systems have been reviewed and are negative for complaint. 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,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,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) Skin cancer of face (173.30) (C44.300) Past Medical History Problems History of malignant neoplasm (V10.90) (Z85.9) History of ulceration (V13.89) (Z87.898) History 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) Resolved Date: 06 Dec 2017 Surgical History Problems History of Atrial appendage closure History of Coronary artery bypass graft History of Gastrointestinal Surgery History of Hernia Repair History of Hip Replacement History of Mitral valve repair History of Pacemaker Placement Family History Mother Family history of Family history of MVA (motor vehicle accident) Father Family history of Family history of suicide (V17.0) (Z81.8) Social History Problems Former consumption of alcohol (V11.3) (Z87.898) Lives with family Never a smoker Retired Allergies Medication Penicillins Recorded By: Lissa Giordano; 12/06/2017 3:12:26 PM Current Meds Medication NameInstruction Acetaminophen 325 MG Oral TabletTAKE 1 TO 2 TABLETS EVERY 4 HOURS NEEDED Atorvastatin Calcium 80 MG Oral TabletTAKE 1 TABLET DAILY. Clopidogrel Bisulfate 75 MG Oral TabletTAKE 1 TABLET DAILY. Eliquis 2.5 MG Oral TabletTake 1 tablet twice daily Esomeprazole Magnesium 40 MG Oral PacketMIX THE CONTENTS OF 1 PACKET IN 15ML OF WATER AND DRINK ONCE DAILY. Furosemide 20 MG Oral TabletTAKE 1 TABLET BY MOUTH EVERY DAY Latanoprost 0.005 % Ophthalmic SolutionINSTILL 1 DROP Bedtime Into each eye Lisinopril 2.5 MG Oral TabletTAKE 1 TABLET DAILY. Magnesium Oxide 400 MG Oral TabletTAKE 1 TABLET DAILY. Meclizine HCl - 25 MG Oral TabletTAKE 1/2 TO 1 TABLET BY MOUTH THREE TIMES DAILY NEEDED Metoprolol Tartrate 25 MG Oral TabletTAKE 1 TABLET TWICE DAILY. Oxybutynin Chloride 5 MG Oral TabletTake 1 tablet twice daily as needed Silodosin 8 MG Oral CapsuleTAKE 1 CAPSULE DAILY WITH FOOD. Thiamine HCl - 100 MG Oral TabletTake 1 tablet daily Vitals Vital Signs Recorded: 09Jul2022 01:45PM Heart Rate79 Bdfpovas233, LUE, Sitting Gctziamml67, LUE, Sitting Height6 ft Dodzrb094 lb BMI Kgrcuhiohh15.11 kg/m2 BSA Calculated1.95 Tobacco Useb) No Falls Screening (Age 18+)a) No falls within the last year O2 Urqyshmpwy82, RA Pain Scale/ Physical Exam On examination he looked well. His wound is soundly healed. Blood pressure at the clinic was 128/68. Auscultation reveale (more content not included)... Normal [employer] Tobacco Screening.on 022 Fall risk assessment a) No falls within the last year [facility] Work Phone: Tobacco use status CPHS b) No [facility]-Cardiology -[facility] [employer] [place] Work Phone: Laboratory - Chemistry and C hemistry - challengeon 06-14-2022 Glucose [Mass/Vol] 129 mg/dL above high threshold 74 - 99 [facility] [employer] [place] Work Phone: Laboratory - Hematology and Cell countson 06-14-2022 Erythrocyte distribution width (RBC) [Ratio] 19.9 % above high threshold See Below -Cardiology -[employer] [address] [place] Work Phone: Comment on above: Reference Range: 11. 5 - 14.5 Hematocrit (Bld) [Volume fraction] 26.0 % below low threshold See Below MG-Cardiology -Admin [employer] Work Phone: Comment on above: Reference Range: 41. 0 - 52.0 Hemoglobin (Bld) [Mass/Vol] 8.1 g/dL below low threshold See Below [facility]Admin [employer] Work Phone: Comment on above: Reference Range: 13. 5 - 17.5 MCHC (RBC) [Mass/Vol] 31.2 g/dL below low threshold See Below [facility] [employer] Work Phone: Comment on above: Reference Range: 32. 0 - 36.0 MCV (RBC) [Entitic vol] 84 fL 80 - 100 [facility]Cardiology -[facility] [employer] [address] [place] Work Phone: Platelets (Bld) [#/Vol] 246 10*3/uL 150 - 450 MG-Cardiology -Admin [facility] Work Phone: RBC (Bld) [#/Vol] 3.10 {x10E12/L} below low threshold See Below MG-Cardiology -Admin [employer] Work Phone: Comment on above: Reference Range: 4.5 0 - 5.90 WBC (Bld) [#/Vol] 8.5 10*3/uL 4.4 - 11.3 MG-Car diology -[facility] [employer] [address] [place] Work Phone: Magnesium, Serumon Magnesium [Mass/Vol] 1.78 mg/dL See Below MG-C ardiology -Admin [employer] Work Phone: Comment on above: Reference Range: 1.6 0 - 2.40 No Panel Informationon 06-14 19.9 % above high threshold See Below [facility]-Cardiology -Admin [employer] Work Phone: Comment on above: Reference Range: 11. 5 - 14.5 31.2 g/dL below low threshold See Below [facility]-Cardiology -Admin [employer] Work Phone: Comment on above: Reference Range: 32. 0 - 36.0 84 fL 80 - 100 MG-Cardiology -Admin [employer] Work Phone: 0.0 {/100_WBC} 0.0-0.0 MG-Cardiol ogy -Admin [employer] Work Phone: 8.5 {x10E9/L} 4.4 - 11.3 MG-Cardiolo gy -Admin [employer] Work Phone: 129 mg/dL above high threshold 74 - 99 MG-Cardiology -Admin [employer] Work Phone: Renal Function Panelon 06-14 Albumin BCP dye [Mass/Vol] 2.6 g/dL below low threshold 3.4 - 5.0 MG-Cardiology -Admin [employer] Work Phone: Anion gap [Moles/Vol] 11 mmol/L 10 - 20 MG- Cardiology -[facility] [address] [place] Work Phone: Calcium [Mass/Vol] 7.8 mg/dL below low threshold 8.6 - 10.6 MG-Cardiology -Admin [employer] Work Phone: Chloride [Moles/Vol] 104 mmol/L 98 - 107 MG-C ardiology -Admin [employer] Work Phone: CO2 [Moles/Vol] 24 mmol/L 21 - 32 MG-Cardio logy -Admin [employer] Work Phone: Creatinine [Mass/Vol] 0.68 mg/dL See Below MG- Cardiology -Admin [employer] Work Phone: Comment on above: Reference Range: 0.5 0 - 1.30 Glucose [Mass/Vol] 121 mg/dL above high threshold 74 - 99 MG-Cardiology -Admin [employer] Work Phone: Phosphate [Mass/Vol] 3.4 mg/dL 2.5 - 4.9 [facility] Work Phone: Comment on above: The performance deepthi acteristics of phosphorus testing in heparinized plasma have been validated by the individual laboratory site where testing is performed. Testing on heparinized plasma is not approved by the FDA; however, such approval is not necessary. Potassium [Moles/Vol] 4.3 mmol/L 3.5 - 5.3 MG- Cardiology -Admin [employer] Work Phone: Sodium [Moles/Vol] 135 mmol/L below low threshold 136 - 145 MG-Cardiology -Admin [employer] Work Phone: Urea nitrogen [Mass/Vol] 23 mg/dL 6 - 23 MG-Cardiology -Admin [employer] Work Phone: Renal Function Panel >90 >90 MG-C ardiology -Admin [employer] Work Phone: Comment on above: CALCULATIONS OF GRACE MATED GFR ARE PERFORMED USING THE 2020 CKD-EPI STUDY REFIT EQUATION WITHOUT THE RACE VARIABLE FOR THE IDMS-TRACEABLE CREATININE METHODS.https://jasn.asnjournals.org/content//A SN.1860223979 Renal Function Panel 11 mmol/L 10 - 20 MG-C ardiology -Admin Frakes Work Phone: Laboratory - Chemistry and C hemistry - challengeon 06-13-2022 Glucose [Mass/Vol] 109 mg/dL above high threshold 74 - 99 [facility]-Cardiology -[facility] [address] [place] Work Phone: Glucose [Mass/Vol] 98 mg/dL 74 - 99 MG-Car diology -[facility] [address] [place] Work Phone: Glucose [Mass/Vol] 113 mg/dL above high threshold 74 - 99 [facility]Cardiology -[facility] [address] [place] Work Phone: Glucose [Mass/Vol] 120 mg/dL above high threshold 74 - 99 [facility]Cardiology -[facility] [address] [place] Work Phone: Laboratory - Hematology and Cell countson 06-13-2022 Erythrocyte distribution width (RBC) [Ratio] 19.6 % above high threshold See Below [facility] -[facility] [address] [place] Work Phone: Comment on above: Reference Range: 11. 5 - 14.5 Hematocrit (Bld) [Volume fraction] 25.6 % below low threshold See Below MG-Cardiology -Admin [employer] Work Phone: Comment on above: Reference Range: 41. 0 - 52.0 Hemoglobin (Bld) [Mass/Vol] 8.1 g/dL below low threshold See Below MG-Cardiology -Admin [employer] Work Phone: Comment on above: Reference Range: 13. 5 - 17.5 MCHC (RBC) [Mass/Vol] 31.6 g/dL below low threshold See Below [facility]iology -[facility] [address] [place] Work Phone: [phone] Comment on above: Reference Range: 32. 0 - 36.0 MCV (RBC) [Entitic vol] 84 fL 80 - 100 [facility]Cardiology -[facility] Neha [facility] [address] [place] Work Phone: [phone] Platelets (Bld) [#/Vol] 219 10*3/uL 150 - 450 MG-Cardiology -Admin [employer] Work Phone: [phone] RBC (Bld) [#/Vol] 3.05 {x10E12/L} below low threshold See Below MG-Cardiology -Admin [employer] Work Phone: Comment on above: Reference Range: 4.5 0 - 5.90 WBC (Bld) [#/Vol] 7.8 10*3/uL 4.4 - 11.3 MG-Car diology -[facility] Neha [address]le [address] [place] Work Phone: Magnesium, Serumon 2 Magnesium [Mass/Vol] 1.77 mg/dL See Below MG-C ardiology -Admin [employer] Work Phone: [phone] Comment on above: Reference Range: 1.6 0 - 2.40 No Panel Informationon 06-13 Normal [facility]-Cardiology -[facility] Neha [facility] [address] [place] Work Phone: [phone] mg/dL above high threshold 74 - 99 MG-Cardiology -Admin [employer] Work Phone: [phone] 98 mg/dL 74 - 99 MG-Cardiology -Admin [employer] Work Phone: 113 mg/dL above high threshold 74 - 99 MG-Cardiology -Admin [employer] Work Phone: 7.8 {x10E9/L} 4.4 - 11.3 MG-Cardiolo gy -Admin [employer] Work Phone: 19.6 % above high threshold See Below MG-Cardiology -Admin [employer] Work Phone: Comment on above: Reference Range: 11. 5 - 14.5 31.6 g/dL below low threshold See Below MG-Cardiology -Admin [employer] Work Phone: Comment on above: Reference Range: 32. 0 - 36.0 84 fL 80 - 100 MG-Cardiology -Admin [employer] Work Phone: 0.0 {/100_WBC} 0.0-0.0 MG-Cardiol ogy -Admin [employer] Work Phone: 120 mg/dL above high threshold 74 - 99 MG-Cardiology -Admin [employer] Work Phone: Renal Function Panelon 06-13 Albumin BCP dye [Mass/Vol] 2.5 g/dL below low threshold 3.4 - 5.0 MG-Cardiology -Admin [employer] Work Phone: Anion gap [Moles/Vol] 12 mmol/L 10 - 20 MG- Cardiology -[facility] [address] [place] Work Phone: Calcium [Mass/Vol] 7.9 mg/dL below low threshold 8.6 - 10.6 MG-Cardiology -Admin [employer] Work Phone: Chloride [Moles/Vol] 103 mmol/L 98 - 107 MG-C ardiology -Admin [employer] Work Phone: CO2 [Moles/Vol] 27 mmol/L 21 - 32 MG-Cardio logy -Admin [employer] Work Phone: Creatinine [Mass/Vol] 0.73 mg/dL See Below MG- Cardiology -Admin [employer] Work Phone: Comment on above: Reference Range: 0.5 0 - 1.30 Glucose [Mass/Vol] 120 mg/dL above high threshold 74 - 99 MG-Cardiology -Admin [employer] Work Phone: Phosphate [Mass/Vol] 3.0 mg/dL 2.5 - 4.9 MG-C ardiology -Admin [employer] Work Phone: Comment on above: The performance deepthi acteristics of phosphorus testing in heparinized plasma have been validated by the individual laboratory site where testing is performed. Testing on heparinized plasma is not approved by the FDA; however, such approval is not necessary. Potassium [Moles/Vol] 4.5 mmol/L 3.5 - 5.3 MG- Cardiology -Admin [employer]kes Work Phone: Sodium [Moles/Vol] 137 mmol/L 136 - 145 MG-Car diology -Admin [employer] Work Phone: Urea nitrogen [Mass/Vol] 24 mg/dL above high threshold 6 - 23 MG-Cardiology -Admin [employer] Work Phone: Renal Function Panel >90 >90 MG-C ardiology -Admin [employer] Work Phone: Comment on above: CALCULATIONS OF GRACE MATED GFR ARE PERFORMED USING THE 2020 CKD-EPI STUDY REFIT EQUATION WITHOUT THE RACE VARIABLE FOR THE IDMS-TRACEABLE CREATININE METHODS.https://jasn.asnjournals.org/content//A SN.3755107927 Renal Function Panel 12 mmol/L 10 - 20 MG-C ardiology -Admin [employer] Work Phone: Laboratory - Chemistry and C hemistry - challengeon 06-12-2022 Glucose [Mass/Vol] 111 mg/dL above high threshold 74 - 99 [facility]Cardiology -[facility] [address] [place] Work Phone: Glucose [Mass/Vol] 100 mg/dL above high threshold 74 - 99 [facility]Cardiology -[facility] [address] [place] Work Phone: [phone] Glucose [Mass/Vol] 114 mg/dL above high threshold 74 - 99 [facility]Cardiology [facility] [address] [place] Work Phone: Glucose [Mass/Vol] 127 mg/dL above high threshold 74 - 99 [facility]Cardiology -[facility] [address] [place] Work Phone: [phone] Laboratory - Hematology and Cell countson 06-12-2022 Erythrocyte distribution width (RBC) [Ratio] 19.2 % above high threshold See Below [facility]-Cardiology -[facility] [address] [place] Work Phone: Comment on above: Reference Range: 11. 5 - 14.5 Hematocrit (Bld) [Volume fraction] 27.4 % below low threshold See Below MG-Cardiology -Admin [employer] Work Phone: Comment on above: Reference Range: 41. 0 - 52.0 Hemoglobin (Bld) [Mass/Vol] 8.5 g/dL below low threshold See Below MG-Cardiology -Admin [employer]kes Work Phone: Comment on above: Reference Range: 13. 5 - 17.5 MCHC (RBC) [Mass/Vol] 31.0 g/dL below low threshold See Below [facility]-Cardiology -[facility] [employer] [address] [place] Work Phone: Comment on above: Reference Range: 32. 0 - 36.0 MCV (RBC) [Entitic vol] 87 fL 80 - 100 MG-Cardiology -[facility] [employer] [address] [place] Work Phone: Platelets (Bld) [#/Vol] 198 10*3/uL 150 - 450 MG-Cardiology -Admin [employer]kes Work Phone: RBC (Bld) [#/Vol] 3.15 {x10E12/L} below low threshold See Below MG-Cardiology -Admin [employer]kes Work Phone: Comment on above: Reference Range: 4.5 0 - 5.90 WBC (Bld) [#/Vol] 6.8 10*3/uL 4.4 - 11.3 MG-Car diology -[facility] [employer] [address] [place] Work Phone: Magnesium, Serumon 2 Magnesium [Mass/Vol] 1.75 mg/dL See Below MG-C ardiology -Admin [employer]kes Work Phone: Comment on above: Reference Range: 1.6 0 - 2.40 No Panel Informationon 06-12 111 mg/dL above high threshold 74 - 99 MG-Cardiology -Admin [employer] Work Phone: 100 mg/dL above high threshold 74 - 99 MG-Cardiology -Admin [employer] Work Phone: 114 mg/dL above high threshold 74 - 99 MG-Cardiology -Admin [employer]kes Work Phone: 19.2 % above high threshold See Below MG-Cardiology -Admin [employer] Work Phone: Comment on above: Reference Range: 11. 5 - 14.5 31.0 g/dL below low threshold See Below MG-Cardiology -Admin [employer] Work Phone: Comment on above: Reference Range: 32. 0 - 36.0 87 fL 80 - 100 MG-Cardiology -Admin [employer] Work Phone: 0.0 {/100_WBC} 0.0-0.0 MG-Cardiol ogy -Admin [employer] Work Phone: 6.8 {x10E9/L} 4.4 - 11.3 MG-Cardiolo gy -Admin [employer] Work Phone: 127 mg/dL above high threshold 74 - 99 MG-Cardiology -Admin [employer] Work Phone: Renal Function Panelon 06-12 Albumin BCP dye [Mass/Vol] 2.7 g/dL below low threshold 3.4 - 5.0 MG-Cardiology -Admin [employer] Work Phone: Anion gap [Moles/Vol] 11 mmol/L 10 - 20 MG- Cardiology -[facility] [address] [place] Work Phone: Calcium [Mass/Vol] 8.2 mg/dL below low threshold 8.6 - 10.6 MG-Cardiology -Admin [employer] Work Phone: Chloride [Moles/Vol] 103 mmol/L 98 - 107 MG-C ardiology -Admin [employer] Work Phone: CO2 [Moles/Vol] 27 mmol/L 21 - 32 MG-Cardio logy -Admin [employer] Work Phone: Creatinine [Mass/Vol] 0.71 mg/dL See Below MG- Cardiology -Admin [employer]kes Work Phone: Comment on above: Reference Range: 0.5 0 - 1.30 Glucose [Mass/Vol] 102 mg/dL above high threshold 74 - 99 MG-Cardiology -Admin [employer] Work Phone: Phosphate [Mass/Vol] 2.9 mg/dL 2.5 - 4.9 MG-C ardiology -Admin [employer] Work Phone: Comment on above: The performance deepthi acteristics of phosphorus testing in heparinized plasma have been validated by the individual laboratory site where testing is performed. Testing on heparinized plasma is not approved by the FDA; however, such approval is not necessary. Potassium [Moles/Vol] 4.6 mmol/L 3.5 - 5.3 MG- Cardiology -Admin [employer] Work Phone: Sodium [Moles/Vol] 136 mmol/L 136 - 145 MG-Car diology -Admin [employer] Work Phone: Urea nitrogen [Mass/Vol] 26 mg/dL above high threshold 6 - 23 MG-Cardiology -Admin [employer] Work Phone: Renal Function Panel >90 >90 MG-C [facility]diology -[facility] Work Phone: Comment on above: CALCULATIONS OF GRACE MATED GFR ARE PERFORMED USING THE 2020 CKD-EPI STUDY REFIT EQUATION WITHOUT THE RACE VARIABLE FOR THE IDMS-TRACEABLE CREATININE METHODS.https://jasn.asnjournals.org/content//A SN.6671361155 Renal Function Panel 11 mmol/L 10 - 20 MG-C ardiology -Admin Frakes Work Phone: Laboratory - Chemistry and C hemistry - challengeon 06-11-2022 Glucose [Mass/Vol] 119 mg/dL above high threshold 74 - 99 MG-Cardiology -[facility] [address] [place] Work Phone: [phone] Glucose [Mass/Vol] 93 mg/dL 74 - 99 MG-Car diology -[facility] [employer] [address] [place] Work Phone: [phone] Glucose [Mass/Vol] 107 mg/dL above high threshold 74 - 99 MG-Cardiology -[facility] [employer] [address] [place] Work Phone: Glucose [Mass/Vol] 97 mg/dL 74 - 99 MG-Car diology -[facility] Garlandjay Randle [address] [place] Work Phone: Laboratory - Hematology and Cell countson 06-11-2022 Erythrocyte distribution width (RBC) [Ratio] 18.6 % above high threshold See Below MG-Cardiology -[facility] Nehajay [address]le [address] [place] Work Phone: Comment on above: Reference Range: 11. 5 - 14.5 Hematocrit (Bld) [Volume fraction] 27.3 % below low threshold See Below MG-Cardiology -Admin [employer]kes Work Phone: Comment on above: Reference Range: 41. 0 - 52.0 Hemoglobin (Bld) [Mass/Vol] 8.7 g/dL below low threshold See Below MG-Cardiology -Admin [employer]kes Work Phone: Comment on above: Reference Range: 13. 5 - 17.5 MCHC (RBC) [Mass/Vol] 31.9 g/dL below low threshold See Below [facility]-Cardiology -[facility] [employer] [address] [place] Work Phone: Comment on above: Reference Range: 32. 0 - 36.0 MCV (RBC) [Entitic vol] 84 fL 80 - 100 MG-Cardiology -[facility] Garlandjay Randle [address] [place] Work Phone: Platelets (Bld) [#/Vol] 176 10*3/uL 150 - 450 MG-Cardiology -Admin Frakes Work Phone: RBC (Bld) [#/Vol] 3.24 {x10E12/L} below low threshold See Below MG-Cardiology -Admin Frakes Work Phone: Comment on above: Reference Range: 4.5 0 - 5.90 WBC (Bld) [#/Vol] 7.2 10*3/uL 4.4 - 11.3 MG-Car diology -[facility] [place] [employer] [address] [place] Work Phone: Magnesium, Serumon Magnesium [Mass/Vol] 1.71 mg/dL See Below MG-C ardiology -Admin Frakes Work Phone: Comment on above: Reference Range: 1.6 0 - 2.40 No Panel Informationon 06-11 119 mg/dL above high threshold 74 - 99 MG-Cardiology -Admin [employer]kes Work Phone: 93 mg/dL 74 - 99 MG-Cardiology -Admin [employer] Work Phone: 107 mg/dL above high threshold 74 - 99 MG-Cardiology -Admin [employer] Work Phone: 18.6 % above high threshold See Below MG-Cardiology -Admin [employer]kes Work Phone: Comment on above: Reference Range: 11. 5 - 14.5 31.9 g/dL below low threshold See Below MG-Cardiology -Admin [employer]kes Work Phone: Comment on above: Reference Range: 32. 0 - 36.0 84 fL 80 - 100 MG-Cardiology -Admin [employer] Work Phone: 0.0 {/100_WBC} 0.0-0.0 MG-Cardiol ogy -Admin [employer] Work Phone: 7.2 {x10E9/L} 4.4 - 11.3 MG-Cardiolo gy -Admin [employer] Work Phone: 97 mg/dL 74 - 99 MG-Cardiology -Admin [employer] Work Phone: Renal Function Panelon 06-11 Albumin BCP dye [Mass/Vol] 2.9 g/dL below low threshold 3.4 - 5.0 MG-Cardiology -Admin [employer] Work Phone: Anion gap [Moles/Vol] 10 mmol/L 10 - 20 MG- Cardiology -[facility] [address] [place] Work Phone: Calcium [Mass/Vol] 8.3 mg/dL below low threshold 8.6 - 10.6 MG-Cardiology -Admin [employer] Work Phone: Chloride [Moles/Vol] 106 mmol/L 98 - 107 MG-C ardiology -Admin [employer] Work Phone: CO2 [Moles/Vol] 25 mmol/L 21 - 32 MG-Cardio logy -Admin [employer] Work Phone: Creatinine [Mass/Vol] 0.69 mg/dL See Below MG- Cardiology -Admin [employer] Work Phone: Comment on above: Reference Range: 0.5 0 - 1.30 Glucose [Mass/Vol] 112 mg/dL above high threshold 74 - 99 MG-Cardiology -Admin [employer] Work Phone: Phosphate [Mass/Vol] 3.1 mg/dL 2.5 - 4.9 MG-C ardiology -[facility] Work Phone: Comment on above: The performance deepthi acteristics of phosphorus testing in heparinized plasma have been validated by the individual laboratory site where testing is performed. Testing on heparinized plasma is not approved by the FDA; however, such approval is not necessary. Potassium [Moles/Vol] 4.4 mmol/L 3.5 - 5.3 MG- Cardiology -Admin [employer] Work Phone: Sodium [Moles/Vol] 137 mmol/L 136 - 145 MG-Car diology -[facility] Work Phone: Urea nitrogen [Mass/Vol] 19 mg/dL 6 - 23 MG-Cardiology -Admin [employer] Work Phone: Renal Function Panel 10 mmol/L 10 - 20 MG-C ardiology -Admin [employer] Work Phone: Renal Function Panel >90 >90 MG-C ardiology -[facility] Work Phone: Comment on above: CALCULATIONS OF GRACE MATED GFR ARE PERFORMED USING THE 2020 CKD-EPI STUDY REFIT EQUATION WITHOUT THE RACE VARIABLE FOR THE IDMS-TRACEABLE CREATININE METHODS.https://jasn.asnjournals.org/content//A SN.5727051571 Laboratory - Chemistry and C hemistry - challengeon 06-10-2022 Glucose [Mass/Vol] 131 mg/dL above high threshold 74 - 99 MG-Cardiology -[facility] [address] [place] Work Phone: Glucose [Mass/Vol] 91 mg/dL 74 - 99 MG-Car diology -[facility] [address] [place] Work Phone: Glucose [Mass/Vol] 122 mg/dL above high threshold 74 - 99 MG-Cardiology [facility] [address] [place] Work Phone: Laboratory - Hematology and Cell countson 06-10-2022 Erythrocyte distribution width (RBC) [Ratio] 18.1 % above high threshold See Below [facility]-Cardiology [facility] [address] [place] Work Phone: Comment on above: Reference Range: 11. 5 - 14.5 Hematocrit (Bld) [Volume fraction] 26.4 % below low threshold See Below MG-Cardiology -Admin [employer] Work Phone: Comment on above: Reference Range: 41. 0 - 52.0 Hemoglobin (Bld) [Mass/Vol] 8.4 g/dL below low threshold See Below MG-Cardiology -Admin [employer]kes Work Phone: Comment on above: Reference Range: 13. 5 - 17.5 MCHC (RBC) [Mass/Vol] 31.8 g/dL below low threshold See Below [facility]-Cardiology [facility] [address] [place] Work Phone: Comment on above: Reference Range: 32. 0 - 36.0 MCV (RBC) [Entitic vol] 81 fL 80 - 100 MG-Cardiology -[facility] [address] [place] Work Phone: Platelets (Bld) [#/Vol] 149 10*3/uL below low threshold 150 - 450 MG-Cardiology -Admin [employer]kes Work Phone: RBC (Bld) [#/Vol] 3.26 {x10E12/L} below low threshold See Below MG-Cardiology -Admin [employer] Work Phone: Comment on above: Reference Range: 4.5 0 - 5.90 WBC (Bld) [#/Vol] 7.4 10*3/uL 4.4 - 11.3 MG-Car diology -[facility] [address] [place] Work Phone: Magnesium, Serumon 2 Magnesium [Mass/Vol] 1.66 mg/dL See Below MG-C ardiology -Admin [employer] Work Phone: Comment on above: Reference Range: 1.6 0 - 2.40 No Panel Informationon 06-10 131 mg/dL above high threshold 74 - 99 MG-Cardiology -Admin [employer] Work Phone: 91 mg/dL 74 - 99 MG-Cardiology -Admin [employer] Work Phone: 18.1 % above high threshold See Below MG-Cardiology -Admin [employer] Work Phone: Comment on above: Reference Range: 11. 5 - 14.5 31.8 g/dL below low threshold See Below MG-Cardiology -Admin [employer]kes Work Phone: Comment on above: Reference Range: 32. 0 - 36.0 81 fL 80 - 100 MG-Cardiology -Admin [employer] Work Phone: 0.0 {/100_WBC} 0.0-0.0 MG-Cardiol ogy -Admin [employer] Work Phone: 7.4 {x10E9/L} 4.4 - 11.3 MG-Cardiolo gy -Admin [employer]kes Work Phone: 122 mg/dL above high threshold 74 - 99 MG-Cardiology -Admin [employer] Work Phone: Renal Function Panelon 06-10 Albumin BCP dye [Mass/Vol] 2.8 g/dL below low threshold 3.4 - 5.0 MG-Cardiology -Admin [employer] Work Phone: Anion gap [Moles/Vol] 9 mmol/L below low threshold 10 - 20 MG-Cardiology -[facility] [address] [place] Work Phone: Calcium [Mass/Vol] 7.9 mg/dL below low threshold 8.6 - 10.6 MG-Cardiology -Admin Frakes Work Phone: Chloride [Moles/Vol] 106 mmol/L 98 - 107 MG-C ardiology -[employer] Work Phone: CO2 [Moles/Vol] 27 mmol/L 21 - 32 MG-Cardio logy -[facility] Work Phone: Creatinine [Mass/Vol] 0.74 mg/dL See Below MG- Cardiology -Admin [employer]kes Work Phone: Comment on above: Reference Range: 0.5 0 - 1.30 Glucose [Mass/Vol] 119 mg/dL above high threshold 74 - 99 MG-Cardiology -Admin [employer]kes Work Phone: Phosphate [Mass/Vol] 2.3 mg/dL below low threshold 2.5 - 4.9 MG-Cardiology [facility] Work Phone: Comment on above: The performance deepthi acteristics of phosphorus testing in heparinized plasma have been validated by the individual laboratory site where testing is performed. Testing on heparinized plasma is not approved by the FDA; however, such approval is not necessary. Potassium [Moles/Vol] 3.5 mmol/L 3.5 - 5.3 MG- Cardiology -Admin [employer] Work Phone: Sodium [Moles/Vol] 138 mmol/L 136 - 145 MG-Car diology -[facility] Work Phone: Urea nitrogen [Mass/Vol] 21 mg/dL 6 - 23 MG-Cardiology -Admin [facility]kes Work Phone: Renal Function Panel >90 >90 MG-C ardiology [employer] Work Phone: Comment on above: CALCULATIONS OF GRACE MATED GFR ARE PERFORMED USING THE 2020 CKD-EPI STUDY REFIT EQUATION WITHOUT THE RACE VARIABLE FOR THE IDMS-TRACEABLE CREATININE METHODS.https://jasn.asnjournals.org/content/early/A SN.5747011126 Renal Function Panel 9 mmol/L below low threshold 10 - 20 MG-Cardiology -Admin [facility] Work Phone: Laboratory - Chemistry and C hemistry - challengeon 06-09-2022 Glucose [Mass/Vol] 135 mg/dL above high threshold 74 - 99 [facility]Cardiology [facility] [address] [place] Work Phone: Glucose [Mass/Vol] 96 mg/dL 74 - 99 MG-Car diology -[facility] [address] [place] Work Phone: Glucose [Mass/Vol] 112 mg/dL above high threshold 74 - 99 MG-Cardiology -[facility] [address] [place] Work Phone: Glucose [Mass/Vol] 108 mg/dL above high threshold 74 - 99 MG-Cardiology [facility] [address] [place] Work Phone: Laboratory - Hematology and Cell countson 06-09-2022 Erythrocyte distribution width (RBC) [Ratio] 17.6 % above high threshold See Below MG-Cardiology [facility] [address] [place] Work Phone: Comment on above: Reference Range: 11. 5 - 14.5 Hematocrit (Bld) [Volume fraction] 25.8 % below low threshold See Below MG-Cardiology -Admin [facility] Work Phone: Comment on above: Reference Range: 41. 0 - 52.0 Hemoglobin (Bld) [Mass/Vol] 8.3 g/dL below low threshold See Below MG-Cardiology -Admin [facility] Work Phone: Comment on above: Reference Range: 13. 5 - 17.5 MCHC (RBC) [Mass/Vol] 32.2 g/dL See Below MG- Cardiology -[facility] [address] [place] Work Phone: Comment on above: Reference Range: 32. 0 - 36.0 MCV (RBC) [Entitic vol] 83 fL 80 - 100 MG-Cardiology -[facility] [address] [place] Work Phone: Platelets (Bld) [#/Vol] 127 10*3/uL below low threshold 150 - 450 MG-Cardiology -Admin [facility]kes Work Phone: RBC (Bld) [#/Vol] 3.10 {x10E12/L} below low threshold See Below MG-Cardiology -Admin [employer] Work Phone: Comment on above: Reference Range: 4.5 0 - 5.90 WBC (Bld) [#/Vol] 7.2 10*3/uL 4.4 - 11.3 MG-Car diology -[facility] [address] [place] Work Phone: Magnesium, Serumon 2 Magnesium [Mass/Vol] 1.71 mg/dL See Below MG-C ardiology -Admin [employer] Work Phone: Comment on above: Reference Range: 1.6 0 - 2.40 No Panel Informationon 06-09 135 mg/dL above high threshold 74 - 99 MG-Cardiology -Admin [facility] Work Phone: 96 mg/dL 74 - 99 MG-Cardiology -Admin [employer] Work Phone: 112 mg/dL above high threshold 74 - 99 MG-Cardiology -Admin [employer] Work Phone: 17.6 % above high threshold See Below MG-Cardiology -Admin [facility] Work Phone: Comment on above: Reference Range: 11. 5 - 14.5 32.2 g/dL See Below MG-Cardiology -Admin [facility] Work Phone: Comment on above: Reference Range: 32. 0 - 36.0 83 fL 80 - 100 [facility] Work Phone: 0.0 {/100_WBC} 0.0-0.0 [facility] o[facility] -[facility] Work Phone: 7.2 {x10E9/L} 4.4 - 11.3 MG-Cardiolo gy -[facility] Work Phone: 108 mg/dL above high threshold 74 - 99 [facility] Work Phone: Radiologyon 06-09-2022 XR Chest 2 Views Normal [facility]i ology -[facility] Work Phone: Renal Function Panelon 06-09 Albumin BCP dye [Mass/Vol] 2.7 g/dL below low threshold 3.4 - 5.0 [facility] Work Phone: Anion gap [Moles/Vol] 10 mmol/L 10 - 20 [facility] [address] [place] Work Phone: Calcium [Mass/Vol] 7.8 mg/dL below low threshold 8.6 - 10.6 [facility] -[facility] Work Phone: Chloride [Moles/Vol] 105 mmol/L 98 - 107 MG-C ardiology -[facility] Work Phone: CO2 [Moles/Vol] 26 mmol/L 21 - 32 MG-Cardio logy -[facility] Work Phone: Creatinine [Mass/Vol] 0.82 mg/dL See Below [facility] -[facility] Work Phone: Comment on above: Reference Range: 0.5 0 - 1.30 Glucose [Mass/Vol] 124 mg/dL above high threshold 74 - 99 [facility] Work Phone: Phosphate [Mass/Vol] 2.5 mg/dL 2.5 - 4.9 MG-C ardiology -[facility] Work Phone: Comment on above: The performance deepthi acteristics of phosphorus testing in heparinized plasma have been validated by the individual laboratory site where testing is performed. Testing on heparinized plasma is not approved by the FDA; however, such approval is not necessary. Potassium [Moles/Vol] 3.4 mmol/L below low threshold 3.5 - 5.3 [facility] -[facility] Work Phone: Sodium [Moles/Vol] 138 mmol/L 136 - 145 MG-Car diology -[facility] Work Phone: Urea nitrogen [Mass/Vol] 21 mg/dL 6 - 23 [facility] Work Phone: Renal Function Panel 89 {mL/min/1.73m2} >90 [facility] Work Phone: Comment on above: CALCULATIONS OF GRACE MATED GFR ARE PERFORMED USING THE 2020 CKD-EPI STUDY REFIT EQUATION WITHOUT THE RACE VARIABLE FOR THE IDMS-TRACEABLE CREATININE METHODS.https://jasn.asnjournals.org/content//A SN.[email or web address] Renal Function Panel 10 mmol/L 10 - 20 [facility] Work Phone: Calcium, Ionized Levelon Calcium, Ionized Level 1.10 mmol/L See Below M [facility] Work Phone: Comment on above: Reference Range: 1.1 0 - 1.33 The performance characteristics of ionized calcium tested in heparinized plasma or serum have been validated by the individual laboratory site where testing is performed. Testing on heparinized plasma or serum is not approved by the FDA; however, such approval is not necessary. Laboratory - Chemistry and C hemistry - challengeon 06-08-2022 Anion gap 4 (BldMV) [Moles/Vol] 11 mmol/L 10 - 25 [facility] -[facility] Work Phone: Base excess Calc (BldMV) [Moles/Vol] 0.9 mmol/L MG-Cardiolog y -[facility] Work Phone: Calcium.ionized (BldMV) [Moles/Vol] 1.10 mmol/L See Below [facility]-Cardiolog y -[facility] Work Phone: Comment on above: Reference Range: 1.1 0 - 1.33 Chloride [Moles/Vol] 102 mmol/L 98 - 107 MG-C ardiology -[facility] Work Phone: CO2 (BldMV) [Partial pressure] 38 {mmHg} [facility] -[facility] Work Phone: Glucose [Mass/Vol] 84 mg/dL 74 - 99 MG-Car diology -[facility] Work Phone: HCO3 (BldMV) [Moles/Vol] 25.2 mmol/L [facility] -[facility] Work Phone: Lactate (BldMV) [Moles/Vol] 1.1 mmol/L 0.4 - 2.0 [facility] -[facility] Work Phone: Oxygen (BldMV) [Partial pressure] 39 {mmHg} [facility] -[facility] Work Phone: Oxyhemoglobin (BldMV) [Mass fraction] 59.2 % See Below [facility] -[facility] Work Phone: Comment on above: Reference Range: 45. 0 - 75.0 pH (BldMV) 7.43 1 [facility] -[facility] Work Phone: Potassium (BldMV) [Moles/Vol] 3.8 mmol/L 3.5 - 5.3 [facility] -[facility] Work Phone: Sodium (BldMV) [Moles/Vol] 134 mmol/L below low threshold 136 - 145 [facility] -[facility] Work Phone: Laboratory - Hematology and Cell countson 06-08-2022 Hematocrit Est (Bld) [Volume fraction] 30.0 % below low threshold See Below [facility] -[facility] Work Phone: Comment on above: Reference Range: 41. 0 - 52.0 Hemoglobin (Bld) [Mass/Vol] 9.9 g/dL below low threshold See Below [facility] -[facility] Work Phone: Comment on above: Reference Range: 13. 5 - 17.5 Hematocrit (Bld) [Volume fraction] 29.5 % below low threshold See Below [facility] -[facility] Work Phone: Comment on above: Reference Range: 41. 0 - 52.0 Hemoglobin (Bld) [Mass/Vol] 9.6 g/dL below low threshold See Below [facility] -[facility] [employer] Work Phone: Comment on above: Reference Range: 13. 5 - 17.5 Platelets (Bld) [#/Vol] 134 10*3/uL below low threshold 150 - 450 [facility]iology -[facility] [employer] Work Phone: RBC (Bld) [#/Vol] 3.53 {x10E12/L} below low threshold See Below [facility] -[facility] [employer] Work Phone: Comment on above: Reference Range: 4.5 0 - 5.90 Magnesium, Serumon Magnesium [Mass/Vol] 1.73 mg/dL See Below MG-C ardiology -[facility] [employer] Work Phone: Comment on above: Reference Range: 1.6 0 - 2.40 No Panel Informationon 06-08 100 mg/dL above high threshold 74 - 99 [facility] [employer] Work Phone: 103 mg/dL above high threshold 74 - 99 [facility] -[facility] Work Phone: 95 mg/dL 74 - 99 [facility] [employer] Work Phone: 97 mg/dL 74 - 99 [facility] [employer] Work Phone: 95 mg/dL 74 - 99 [facility] [employer] Work Phone: 61 % [facility] [employer] Work Phone: 37.0 {degrees} [facility]-Cardiol ogy -[facility] [employer] Work Phone: Comment on above: NOTE: PATIENT RESULT S ARE NOT CORRECTED FOR TEMPERATURE. 87 mg/dL 74 - 99 [facility] [employer] Work Phone: 17.8 % above high threshold See Below [facility] -[facility] Work Phone: Comment on above: Reference Range: 11. 5 - 14.5 32.5 g/dL See Below [facility] -[facility] Work Phone: Comment on above: Reference Range: 32. 0 - 36.0 84 fL 80 - 100 [facility] -[facility] Work Phone: 0.0 {/100_WBC} 0.0-0.0 [facility]-Cardiol ogy -[facility] Work Phone: 8.0 {x10E9/L} 4.4 - 11.3 MG-Cardiolo gy -[facility] Work Phone: Radiologyon 06-08-2022 XR Chest Single view Normal MG-C ardiology -[employer] [facility] Work Phone: Renal Function Panelon 06-08 Albumin BCP dye [Mass/Vol] 2.9 g/dL below low threshold 3.4 - 5.0 [facility] -[facility] Work Phone: Calcium [Mass/Vol] 8.1 mg/dL below low threshold 8.6 - 10.6 [facility] -[facility] Work Phone: Chloride [Moles/Vol] 103 mmol/L 98 - 107 MG-C ardiology -[employer] [facility] Work Phone: CO2 [Moles/Vol] 24 mmol/L 21 - 32 MG-Cardio logy -[facility] Work Phone: Creatinine [Mass/Vol] 0.81 mg/dL See Below [facility]- Cardiology -[facility] Work Phone: Comment on above: Reference Range: 0.5 0 - 1.30 Glucose [Mass/Vol] 83 mg/dL 74 - 99 MG-Car diology -[facility] Work Phone: Phosphate [Mass/Vol] 3.1 mg/dL 2.5 - 4.9 MG-C ardiology -[employer] [facility] Work Phone: Comment on above: The performance deepthi acteristics of phosphorus testing in heparinized plasma have been validated by the individual laboratory site where testing is performed. Testing on heparinized plasma is not approved by the FDA; however, such approval is not necessary. Potassium [Moles/Vol] 3.9 mmol/L 3.5 - 5.3 MG- Cardiology -[facility] Work Phone: Sodium [Moles/Vol] 137 mmol/L 136 - 145 MG-Car diology -[facility] Work Phone: Urea nitrogen [Mass/Vol] 22 mg/dL 6 - 23 MG-Cardiology [facility] Work Phone: Renal Function Panel 89 {mL/min/1.73m2} >90 MG-Cardiology [facility] Work Phone: Comment on above: CALCULATIONS OF GRACE MATED GFR ARE PERFORMED USING THE 2020 CKD-EPI STUDY REFIT EQUATION WITHOUT THE RACE VARIABLE FOR THE IDMS-TRACEABLE CREATININE METHODS.https://jasn.asnjournals.org/content/early//A SN.1938986473 Renal Function Panel 14 mmol/L 10 - 20 MG-C ardiology [facility] Work Phone: Calcium, Ionized Levelon Calcium, Ionized Level 1.13 mmol/L See Below M [facility] Work Phone: Comment on above: Reference Range: 1.1 0 - 1.33 The performance characteristics of ionized calcium tested in heparinized plasma or serum have been validated by the individual laboratory site where testing is performed. Testing on heparinized plasma or serum is not approved by the FDA; however, such approval is not necessary. Laboratory - Blood bankon ABO group Nom (Bld) A MG-Ca rdiology -[facility] Work Phone: Blood group antibody investigation (P/RBC) [Interp] See Comment [facility] Work Phone: Comment on above: [facility] IRL: Nonspe cific reactivity Blood group antibody screen Ql Positive [facility] -[facility] Work Phone: Comment on above: Sendout to reference lab required. 28 mL EDTA and 10 mL RED Top blood specimen needed within the 3 days prior to transfusion.ORDER BBIRL Rh immune globulin screen (Bld) [Interp] Positive MG-Cardiol ogy -[facility] Work Phone: Laboratory - Chemistry and C hemistry - challengeon 06-07-2022 Anion gap 4 (BldMV) [Moles/Vol] 10 mmol/L 10 - 25 [facility] -[facility] Work Phone: Base excess Calc (BldMV) [Moles/Vol] 3.0 mmol/L MG-Cardiolog y -[facility] Work Phone: Calcium.ionized (BldMV) [Moles/Vol] 1.12 mmol/L See Below [facility]-Cardiolog y -[facility] Work Phone: Comment on above: Reference Range: 1.1 0 - 1.33 Chloride [Moles/Vol] 101 mmol/L 98 - 107 MG-C ardiology -[facility] Work Phone: CO2 (BldMV) [Partial pressure] 43 {mmHg} [facility] -[facility] Work Phone: Glucose [Mass/Vol] 84 mg/dL 74 - 99 MG-Car diology -[facility] Work Phone: HCO3 (BldMV) [Moles/Vol] 27.9 mmol/L [facility] -[facility] Work Phone: Lactate (BldMV) [Moles/Vol] 1.5 mmol/L 0.4 - 2.0 [facility] -[facility] Work Phone: Oxygen (BldMV) [Partial pressure] 26 {mmHg} [facility] -[facility] Work Phone: Oxyhemoglobin (BldMV) [Mass fraction] 28.2 % below low threshold See Below [facility] -[facility] Work Phone: Comment on above: Reference Range: 45. 0 - 75.0 pH (BldMV) 7.42 1 [facility]iology -[facility] Work Phone: Potassium (BldMV) [Moles/Vol] 4.7 mmol/L 3.5 - 5.3 [facility]iology -[facility] Work Phone: Sodium (BldMV) [Moles/Vol] 134 mmol/L below low threshold 136 - 145 [facility] -[facility] Work Phone: Laboratory - Coagulationon 0 06-07-2022 aPTT Coag (PPP) [Time] 29 s 26 - 39 -Cardiology -[facility] Work Phone: Comment on above: THE APTT IS NO LONGE R USED FOR MONITORING UNFRACTIONATED HEPARIN THERAPY. FOR MONITORING HEPARIN THERAPY, USE THE HEPARIN ASSAY. INR Coag (PPP) [Relative time] 1.1 {INR} 0.9 - 1.1 [facility]-Cardiology -[facility] Work Phone: PT Coag (PPP) [Time] 12.6 s 9.8 - 13.4 MG-C ardiology -[facility] Work Phone: Laboratory - Hematology and Cell countson 06-07-2022 Hematocrit Est (Bld) [Volume fraction] 32.0 % below low threshold See Below [facility] -[facility] Work Phone: Comment on above: Reference Range: 41. 0 - 52.0 Hemoglobin (Bld) [Mass/Vol] 10.6 g/dL below low threshold See Below [facility] -[facility] Work Phone: Comment on above: Reference Range: 13. 5 - 17.5 Hematocrit (Bld) [Volume fraction] 31.3 % below low threshold See Below [facility] -[facility] Work Phone: Comment on above: Reference Range: 41. 0 - 52.0 Hemoglobin (Bld) [Mass/Vol] 10.0 g/dL below low threshold See Below [facility] -[facility] Work Phone: Comment on above: Reference Range: 13. 5 - 17.5 Platelets (Bld) [#/Vol] 120 10*3/uL below low threshold 150 - 450 [facility]iology -[facility] Work Phone: RBC (Bld) [#/Vol] 3.70 {x10E12/L} below low threshold See Below [facility] -[facility] Work Phone: Comment on above: Reference Range: 4.5 0 - 5.90 Magnesium, Serumon Magnesium [Mass/Vol] 1.85 mg/dL See Below MG-C ardiology -[facility] Work Phone: Comment on above: Reference Range: 1.6 0 - 2.40 No Panel Informationon 06-07 82 mg/dL 74 - 99 [facility] -[facility] Work Phone: 85 mg/dL 74 - 99 [facility] -[facility] Work Phone: 79 mg/dL 74 - 99 [facility] -[facility] Work Phone: 75 mg/dL 74 - 99 [facility] -[facility] Work Phone: 97 mg/dL 74 - 99 [facility] -[facility] Work Phone: 29 % [facility]iology -[facility] Work Phone: 37.0 {degrees} MG-Cardiol ogy -[facility] Work Phone: Comment on above: NOTE: PATIENT RESULT S ARE NOT CORRECTED FOR TEMPERATURE. 88 mg/dL 74 - 99 [facility]Cardiology -[facility] Work Phone: 17.2 % above high threshold See Below [facility]iology -[facility] Work Phone: Comment on above: Reference Range: 11. 5 - 14.5 31.9 g/dL below low threshold See Below MG-Cardiology -[facility] [employer] Work Phone: Comment on above: Reference Range: 32. 0 - 36.0 85 fL 80 - 100 MG-Cardiology -[facility] [employer] Work Phone: 0.0 {/100_WBC} 0.0-0.0 MG-Cardiol ogy -[employer] Work Phone: 8.0 {x10E9/L} 4.4 - 11.3 MG-Cardiolo gy -[facility] [employer] Work Phone: Path Review Immunohematology on 06-07-2022 Path Review Immunohematology Canceled [facility]iology -[facility] [employer] Work Phone: Comment on above: By her/his signature above, the Pathologist listed as making the final interpretation certifies that she/he has personally reviewed this case. Radiologyon 06-07-2022 XR Abdomen AP Normal MG-Cardiolo gy -[facility] [employer] Work Phone: XR Chest Single view Normal MG-C ardiology -[employer] Work Phone: Renal Function Panelon 06-07 Albumin BCP dye [Mass/Vol] 3.2 g/dL below low threshold 3.4 - 5.0 MG-Cardiology -[facility] [employer] Work Phone: Calcium [Mass/Vol] 8.6 mg/dL 8.6 - 10.6 MG-Car diology -[employer] Work Phone: Chloride [Moles/Vol] 103 mmol/L 98 - 107 MG-C ardiology -[employer] Work Phone: CO2 [Moles/Vol] 27 mmol/L 21 - 32 MG-Cardio logy -[employer] Work Phone: Creatinine [Mass/Vol] 0.91 mg/dL See Below MG- Cardiology -[facility] [employer] Work Phone: Comment on above: Reference Range: 0.5 0 - 1.30 Glucose [Mass/Vol] 89 mg/dL 74 - 99 MG-Car diology -[employer] Work Phone: Phosphate [Mass/Vol] 2.7 mg/dL 2.5 - 4.9 MG-C ardiology [employer] Work Phone: Comment on above: The performance deepthi acteristics of phosphorus testing in heparinized plasma have been validated by the individual laboratory site where testing is performed. Testing on heparinized plasma is not approved by the FDA; however, such approval is not necessary. Potassium [Moles/Vol] 4.7 mmol/L 3.5 - 5.3 MG- Cardiology [employer] Work Phone: Sodium [Moles/Vol] 138 mmol/L 136 - 145 MG-Car diology [employer] Work Phone: Urea nitrogen [Mass/Vol] 22 mg/dL 6 - 23 MG-Cardiology [employer] Work Phone: Renal Function Panel 85 {mL/min/1.73m2} >90 [facility] Work Phone: Comment on above: CALCULATIONS OF GRACE MATED GFR ARE PERFORMED USING THE 2020 CKD-EPI STUDY REFIT EQUATION WITHOUT THE RACE VARIABLE FOR THE IDMS-TRACEABLE CREATININE METHODS.https://jasn.asnjournals.org/content/early//A SN.8508181277 Renal Function Panel 13 mmol/L 10 - 20 MG-C ardiology [employer] Work Phone: Calcium, Ionized Levelon Calcium, Ionized Level 1.17 mmol/L See Below M G-Cardiology [employer] Work Phone: Comment on above: Reference Range: 1.1 0 - 1.33 The performance characteristics of ionized calcium tested in heparinized plasma or serum have been validated by the individual laboratory site where testing is performed. Testing on heparinized plasma or serum is not approved by the FDA; however, such approval is not necessary. Laboratory - Blood bankon ABO group Nom (Bld) Canceled MG-Ca rdiology -[facility] Work Phone: Comment on above: NO PHLEB ID ON TUBES CALLED TO [facility] 06/06/22 14:10 BY GISELLA ARZOLA, 06/06/2022 14:15 Blood group antibody screen Ql Canceled [facility] -[facility] Work Phone: Comment on above: NO PHLEB ID ON TUBES CALLED TO [facility] 06/06/22 14:10 BY GISELLA ARZOLA, 06/06/2022 14:15 Rh immune globulin screen (Bld) [Interp] Canceled MG-Cardiol ogy -[facility] Work Phone: Comment on above: NO PHLEB ID ON TUBES CALLED TO [facility] 06/06/22 14:10 BY GISELLA ARZOLA, 06/06/2022 14:15 ABO group Nom (Bld) [facility]: Blood group antibody investigation (P/RBC) [Interp] Inconclusive MG-Cardiology -[facility] Work Phone: Comment on above: Additional sample re quested see [id number] Blood group antibody screen Ql Positive [facility]-Cardiology -[facility] Work Phone: Comment on above: Sendout to reference lab required. 28 mL EDTA and 10 mL RED Top blood specimen needed within the 3 days prior to transfusion.ORDER BBIRLThis is a corrected result. Previous value was POS, verified at 06/06/2022 11:45 Rh immune globulin screen (Bld) [Interp] Positive MG-Cardiol ogy -[facility] Work Phone: Laboratory - Chemistry and C hemistry - challengeon 06-06-2022 Anion gap 4 (BldMV) [Moles/Vol] 7 mmol/L below low threshold 10 - 25 [facility]Cardiology -[facility] Work Phone: [phone] Base excess Calc (BldMV) [Moles/Vol] 1.9 mmol/L MG-Cardiolog y -[facility] Work Phone: [phone] Calcium.ionized (BldMV) [Moles/Vol] 1.16 mmol/L See Below MG-Cardiolog y -[facility] Work Phone: [phone] Comment on above: Reference Range: 1.1 0 - 1.33 Chloride [Moles/Vol] 104 mmol/L 98 - 107 MG-C ardiology -[employer] [facility] Work Phone: [phone] CO2 (BldMV) [Partial pressure] 45 {mmHg} MG-Cardiology -[facility] Work Phone: [phone] Glucose [Mass/Vol] 116 mg/dL above high threshold 74 - 99 [facility]iology -[facility] Work Phone: [phone] HCO3 (BldMV) [Moles/Vol] 27.2 mmol/L MG-Cardiology -[facility] Work Phone: [phone] Lactate (BldMV) [Moles/Vol] 1.4 mmol/L 0.4 - 2.0 MG-Cardiology -[facility] Work Phone: [phone] Oxygen (BldMV) [Partial pressure] 42 {mmHg} MG-Cardiology -[facility] Work Phone: [phone] Oxyhemoglobin (BldMV) [Mass fraction] 62.2 % See Below [facility]-Cardiology -[facility] Work Phone: [phone] Comment on above: Reference Range: 45. 0 - 75.0 pH (BldMV) 7.39 1 MG-Cardiology -[facility] Work Phone: Potassium (BldMV) [Moles/Vol] 5.5 mmol/L above high threshold 3.5 - 5.3 MG-Cardiology -[facility] Work Phone: Sodium (BldMV) [Moles/Vol] 133 mmol/L below low threshold 136 - 145 MG-Cardiology -[facility] [employer] Work Phone: Laboratory - Coagulationon 0 06-06-2022 aPTT Coag (PPP) [Time] 32 s 26 - 39 -Cardiology -[facility] Work Phone: Comment on above: THE APTT IS NO LONGE R USED FOR MONITORING UNFRACTIONATED HEPARIN THERAPY. FOR MONITORING HEPARIN THERAPY, USE THE HEPARIN ASSAY. INR Coag (PPP) [Relative time] 1.1 {INR} 0.9 - 1.1 MG-Cardiology [employer] Work Phone: PT Coag (PPP) [Time] 13.0 s 9.8 - 13.4 MG-C ardiology -[facility] Work Phone: Laboratory - Hematology and Cell countson 06-06-2022 Hematocrit Est (Bld) [Volume fraction] 27.0 % below low threshold See Below -Cardiology [employer] Work Phone: Comment on above: Reference Range: 41. 0 - 52.0 Hemoglobin (Bld) [Mass/Vol] 9.0 g/dL below low threshold See Below [employer] [facility] [employer] Work Phone: Comment on above: Reference Range: 13. 5 - 17.5 Hematocrit (Bld) [Volume fraction] 27.7 % below low threshold See Below [employer] [facility] [employer] [facility] Work Phone: Comment on above: Reference Range: 41. 0 - 52.0 Hemoglobin (Bld) [Mass/Vol] 8.8 g/dL below low threshold See Below -Cardiology -[facility] Work Phone: Comment on above: Reference Range: 13. 5 - 17.5 Platelets (Bld) [#/Vol] 112 10*3/uL below low threshold 150 - 450 [employer] [employer] Work Phone: RBC (Bld) [#/Vol] 3.27 {x10E12/L} below low threshold See Below -Cardiology [employer] Work Phone: Comment on above: Reference Range: 4.5 0 - 5.90 Magnesium, Serumon Magnesium [Mass/Vol] 2.00 mg/dL See Below MG-C ardiology -[facility] [employer] Work Phone: Comment on above: Reference Range: 1.6 0 - 2.40 No Panel Informationon 06-06 79 mg/dL 74 - 99 MG-Cardiology -[facility] Work Phone: 86 mg/dL 74 - 99 MG-Cardiology -[facility] Work Phone: 93 mg/dL 74 - 99 MG-Cardiology -[facility] Work Phone: 201 mg/dL above high threshold 74 - 99 MG-Cardiology -[facility] Work Phone: 64 % MG-Cardiology -[facility] Work Phone: 37.0 {degrees} MG-Cardiol ogy -Admin [employer] Work Phone: Comment on above: NOTE: PATIENT RESULT S ARE NOT CORRECTED FOR TEMPERATURE. 17.0 % above high threshold See Below [facility]-Cardiology -[facility] Work Phone: Comment on above: Reference Range: 11. 5 - 14.5 31.8 g/dL below low threshold See Below [facility]-Cardiology -[facility] Work Phone: Comment on above: Reference Range: 32. 0 - 36.0 85 fL 80 - 100 MG-Cardiology -[facility] Work Phone: 0.0 {/100_WBC} 0.0-0.0 MG-Cardiol ogy -Admin [employer] Work Phone: 6.9 {x10E9/L} 4.4 - 11.3 MG-Cardiolo gy -Admin [employer] Work Phone: Path Review Immunohematology on 06-06-2022 Path Review Immunohematology BAILEY MG-Cardiology -[facility] [employer] Work Phone: Comment on above: By her/his signature above, the Pathologist listed as making the final interpretation certifies that she/he has personally reviewed this case. ANTIBODY DETECTION SCREEN IS POSITIVE.ANTIBODY IDENTIFICATION PANEL WAS PERFORMED.THE AUTOCONTROL IS NEGATIVE.ANTIBODY IDENTIFICATION INCONCLUSIVE.ADDITIONAL SPECIMEN REQUIRED TO COMPLETE EVALUATION. Radiologyon 06-06-2022 XR Chest Single view Normal MG-C ardiology -[facility] [employer] Work Phone: XR Chest Single view Normal MG-C ardiology -Admin [employer] Work Phone: Renal Function Panelon 06-06 Albumin BCP dye [Mass/Vol] 3.2 g/dL below low threshold 3.4 - 5.0 MG-Cardiology -Admin [employer] Work Phone: Calcium [Mass/Vol] 8.6 mg/dL 8.6 - 10.6 MG-Car diology -[employer] Work Phone: Chloride [Moles/Vol] 102 mmol/L 98 - 107 MG-C ardiology -[employer] Work Phone: CO2 [Moles/Vol] 28 mmol/L 21 - 32 MG-Cardio logy -[facility] [employer] Work Phone: Creatinine [Mass/Vol] 0.92 mg/dL See Below MG- Cardiology -[facility] [employer] Work Phone: Comment on above: Reference Range: 0.5 0 - 1.30 Glucose [Mass/Vol] 100 mg/dL above high threshold 74 - 99 MG-Cardiology -[facility] [employer] Work Phone: Phosphate [Mass/Vol] 3.2 mg/dL 2.5 - 4.9 MG-C ardiology -[employer] Work Phone: Comment on above: The performance deepthi acteristics of phosphorus testing in heparinized plasma have been validated by the individual laboratory site where testing is performed. Testing on heparinized plasma is not approved by the FDA; however, such approval is not necessary. Potassium [Moles/Vol] 4.9 mmol/L 3.5 - 5.3 MG- Cardiology -[facility] [employer] Work Phone: Sodium [Moles/Vol] 136 mmol/L 136 - 145 MG-Car diology -[facility] [employer] Work Phone: Urea nitrogen [Mass/Vol] 19 mg/dL 6 - 23 MG-Cardiology -[facility] [employer] Work Phone: Renal Function Panel 84 {mL/min/1.73m2} >90 MG-Cardiology -[facility] [employer] Work Phone: Comment on above: CALCULATIONS OF GRACE MATED GFR ARE PERFORMED USING THE 2020 CKD-EPI STUDY REFIT EQUATION WITHOUT THE RACE VARIABLE FOR THE IDMS-TRACEABLE CREATININE METHODS.https://jasn.asnjournals.org/content//A SN.0062321190 Renal Function Panel 11 mmol/L 10 - 20 MG-C ardiology -[employer] Work Phone: Albumin BCP dye [Mass/Vol] 3.2 g/dL below low threshold 3.4 - 5.0 MG-Cardiology -[facility] [employer] Work Phone: Calcium [Mass/Vol] 8.7 mg/dL 8.6 - 10.6 MG-Car diology -[employer] Work Phone: Chloride [Moles/Vol] 104 mmol/L 98 - 107 MG-C ardiology -[employer] Work Phone: CO2 [Moles/Vol] 27 mmol/L 21 - 32 MG-Cardio logy -[employer] Work Phone: Creatinine [Mass/Vol] 0.88 mg/dL See Below MG- Cardiology -[facility] [employer] Work Phone: Comment on above: Reference Range: 0.5 0 - 1.30 Glucose [Mass/Vol] 116 mg/dL above high threshold 74 - 99 MG-Cardiology -[facility] [employer] Work Phone: Phosphate [Mass/Vol] 4.1 mg/dL 2.5 - 4.9 MG-C ardiology [employer] Work Phone: Comment on above: The performance deepthi acteristics of phosphorus testing in heparinized plasma have been validated by the individual laboratory site where testing is performed. Testing on heparinized plasma is not approved by the FDA; however, such approval is not necessary. Potassium [Moles/Vol] 5.5 mmol/L above high threshold 3.5 - 5.3 MG-Cardiology -[facility] [employer] Work Phone: Sodium [Moles/Vol] 137 mmol/L 136 - 145 MG-Car diology -[employer] Work Phone: Urea nitrogen [Mass/Vol] 18 mg/dL 6 - 23 [facility] Work Phone: Renal Function Panel 87 {mL/min/1.73m2} >90 [facility] Work Phone: Comment on above: CALCULATIONS OF GRACE MATED GFR ARE PERFORMED USING THE 2020 CKD-EPI STUDY REFIT EQUATION WITHOUT THE RACE VARIABLE FOR THE IDMS-TRACEABLE CREATININE METHODS.https://jasn.asnjournals.org/content/early/A SN.4335074583 Renal Function Panel 12 mmol/L 10 - 20 [facility] [employer] Work Phone: Calcium, Ionized Levelon Calcium, Ionized Level 1.18 mmol/L See Below M G-Cardiology [employer] Work Phone: Comment on above: Reference Range: 1.1 0 - 1.33 The performance characteristics of ionized calcium tested in heparinized plasma or serum have been validated by the individual laboratory site where testing is performed. Testing on heparinized plasma or serum is not approved by the FDA; however, such approval is not necessary. Laboratory - Chemistry and C hemistry - challengeon 06-05-2022 Anion gap 4 (BldA) [Moles/Vol] 9 mmol/L below low threshold 10 - 25 [facility] [employer] Work Phone: Base excess Calc (Bld) [Moles/Vol] 1.2 mmol/L -2.0 - 3.0 [facility] -[facility] [employer] Work Phone: Calcium.ionized (BldA) [Moles/Vol] 1.19 mmol/L See Below [facility] -[facility] [employer] Work Phone: Comment on above: Reference Range: 1.1 0 - 1.33 Chloride (BldA) [Moles/Vol] 106 mmol/L 98 - 107 [facility] [employer] Work Phone: CO2 (Bld) [Partial pressure] 41 mm[Hg] 38 - 42 [facility] [employer] Work Phone: Glucose [Mass/Vol] 131 mg/dL above high threshold 74 - 99 [facility] [employer] Work Phone: HCO3 (Bld) [Moles/Vol] 26.0 mmol/L See Below M GArg[facility] CorpCardiology [employer] Work Phone: Comment on above: Reference Range: 22. 0 - 26.0 Lactate (BldA) [Moles/Vol] 1.1 mmol/L 0.4 - 2.0 [facility]-Cardiology -[facility] [employer] Work Phone: Oxygen (Bld) [Partial pressure] 138 mm[Hg] above high threshold 85 - 95 MG[facility]Cardiology [employer] Work Phone: Oxyhemoglobin (BldA) [Mass fraction] 97.3 % See Below MGArg[facility] Data CorpCardiology -Admin [employer] Work Phone: Comment on above: Reference Range: 94. 0 - 98.0 pH (Bld) 7.41 [pH] See Below MGArg[facility] Data CorpCardiology -Admin [employer] Work Phone: Comment on above: Reference Range: 7.3 8 - 7.42 Potassium (BldA) [Moles/Vol] 5.7 mmol/L above high threshold 3.5 - 5.3 MG[facility]Cardiology [employer] Work Phone: Sodium (BldA) [Moles/Vol] 135 mmol/L below low threshold 136 - 145 [facility] -[facility] [employer] Work Phone: Anion gap 4 (BldA) [Moles/Vol] 10 mmol/L 10 - 25 [facility] -[facility] [employer] Work Phone: Base excess Calc (Bld) [Moles/Vol] -1.3000 mmol/L -2.0 - 3.0 [facility] -[facility] [employer] Work Phone: Calcium.ionized (BldA) [Moles/Vol] 1.19 mmol/L See Below MGArg[facility] Data CorpCardiology -Admin [employer] Work Phone: Comment on above: Reference Range: 1.1 0 - 1.33 Chloride (BldA) [Moles/Vol] 107 mmol/L 98 - 107 MGArg[facility] Data CorpCardiology [employer] Work Phone: CO2 (Bld) [Partial pressure] 40 mm[Hg] 38 - 42 MG[facility]Cardiology [employer] Work Phone: Glucose [Mass/Vol] 121 mg/dL above high threshold 74 - 99 MG[facility]Cardiology [employer] Work Phone: HCO3 (Bld) [Moles/Vol] 23.7 mmol/L See Below M G-Cardiology [employer] Work Phone: Comment on above: Reference Range: 22. 0 - 26.0 Lactate (BldA) [Moles/Vol] 2.0 mmol/L 0.4 - 2.0 MG-Cardiology -[facility] [employer] Work Phone: Oxygen (Bld) [Partial pressure] 89 mm[Hg] 85 - 95 MG[facility]Cardiology [employer] Work Phone: Oxyhemoglobin (BldA) [Mass fraction] 96.0 % See Below MGArgil Data CorpCardiology -Admin [employer] Work Phone: Comment on above: Reference Range: 94. 0 - 98.0 pH (Bld) 7.38 [pH] See Below [facility] [employer] Work Phone: Comment on above: Reference Range: 7.3 8 - 7.42 Potassium (BldA) [Moles/Vol] 4.9 mmol/L 3.5 - 5.3 [facility] [employer] Work Phone: Sodium (BldA) [Moles/Vol] 136 mmol/L 136 - 145 [facility] [employer] Work Phone: [phone] Anion gap 4 (BldMV) [Moles/Vol] 13 mmol/L 10 - 25 [facility] [employer] Work Phone: Base excess Calc (BldMV) [Moles/Vol] -3.5 mmol/L MG-Cardiolog y -[facility] [employer] Work Phone: [phone] Calcium.ionized (BldMV) [Moles/Vol] 1.21 mmol/L See Below MG-Cardiolog y -[facility] [employer] Work Phone: [phone] Comment on above: Reference Range: 1.1 0 - 1.33 Chloride [Moles/Vol] 106 mmol/L 98 - 107 MG-C ardiology -Admin [employer] Work Phone: [phone] CO2 (BldMV) [Partial pressure] 45 {mmHg} [facility] -[facility] [employer] Work Phone: [phone] Glucose [Mass/Vol] 173 mg/dL above high threshold 74 - 99 [facility] [employer] Work Phone: [phone] HCO3 (BldMV) [Moles/Vol] 22.7 mmol/L [facility] [employer] Work Phone: Lactate (BldMV) [Moles/Vol] 3.5 mmol/L above high threshold 0.4 - 2.0 [facility] [employer] Work Phone: Oxygen (BldMV) [Partial pressure] 54 {mmHg} [facility] -[facility] [employer] Work Phone: [phone] Oxyhemoglobin (BldMV) [Mass fraction] 83.3 % above high threshold See Below MGArgil Data CorpCardiology [employer]Admin [employer] Work Phone: Comment on above: Reference Range: 45. 0 - 75.0 pH (BldMV) 7.31 1 MG[facility]Cardiology -[facility] [employer] Work Phone: Potassium (BldMV) [Moles/Vol] 4.6 mmol/L 3.5 - 5.3 MG-Cardiology [employer] Work Phone: Sodium (BldMV) [Moles/Vol] 137 mmol/L 136 - 145 [facility] [employer] Work Phone: Anion gap 4 (BldA) [Moles/Vol] 14 mmol/L 10 - 25 MGArgil Data CorpCardiology [employer] [employer] Work Phone: Base excess Calc (Bld) [Moles/Vol] -4.0000 mmol/L below low threshold -2.0 - 3.0 MGArg[facility] Data CorpCardiology [employer] Work Phone: Calcium.ionized (BldA) [Moles/Vol] 1.20 mmol/L See Below [employer]Card[facility] [employer] [employer] Work Phone: Comment on above: Reference Range: 1.1 0 - 1.33 Chloride (BldA) [Moles/Vol] 106 mmol/L 98 - 107 [facility] [employer] Work Phone: CO2 (Bld) [Partial pressure] 41 mm[Hg] 38 - 42 MG[facility]Cardiology [employer] Work Phone: Glucose [Mass/Vol] 170 mg/dL above high threshold 74 - 99 [facility] [employer] Work Phone: HCO3 (Bld) [Moles/Vol] 21.6 mmol/L below low threshold See Below MGArgil Data CorpCardiology -Admin [employer] Work Phone: Comment on above: Reference Range: 22. 0 - 26.0 Lactate (BldA) [Moles/Vol] 3.5 mmol/L above high threshold 0.4 - 2.0 MG-Cardiology -[facility] [employer] Work Phone: Oxygen (Bld) [Partial pressure] 127 mm[Hg] above high threshold 85 - 95 [facility] [employer] Work Phone: Oxyhemoglobin (BldA) [Mass fraction] 96.0 % See Below MG-Cardiology -[facility] [employer] Work Phone: Comment on above: Reference Range: 94. 0 - 98.0 pH (Bld) 7.33 [pH] below low threshold See Below [facility]iology -[facility] [employer] Work Phone: Comment on above: Reference Range: 7.3 8 - 7.42 Potassium (BldA) [Moles/Vol] 4.5 mmol/L 3.5 - 5.3 [facility] [employer] Work Phone: Sodium (BldA) [Moles/Vol] 137 mmol/L 136 - 145 [facility] -[facility] [employer] Work Phone: Laboratory - Coagulationon 0 06-05-2022 aPTT Coag (PPP) [Time] 24 s below low threshold 26 - 39 [facility] -[facility] [employer] Work Phone: Comment on above: THE APTT IS NO LONGE R USED FOR MONITORING UNFRACTIONATED HEPARIN THERAPY. FOR MONITORING HEPARIN THERAPY, USE THE HEPARIN ASSAY. INR Coag (PPP) [Relative time] 1.1 {INR} 0.9 - 1.1 [facility] -[facility] [employer] Work Phone: PT Coag (PPP) [Time] 12.2 s 9.8 - 13.4 MG-C ardiology -Admin [employer] Work Phone: Laboratory - Hematology and Cell countson 06-05-2022 Hematocrit Est (Bld) [Volume fraction] 28.0 % below low threshold See Below [facility] -[facility] [employer] Work Phone: Comment on above: Reference Range: 41. 0 - 52.0 Hemoglobin (Bld) [Mass/Vol] 9.3 g/dL below low threshold See Below [facility] -[facility] [employer] Work Phone: Comment on above: Reference Range: 13. 5 - 17.5 Hematocrit Est (Bld) [Volume fraction] 28.0 % below low threshold See Below [facility]Card[facility] -Admin [employer] Work Phone: Comment on above: Reference Range: 41. 0 - 52.0 Hemoglobin (Bld) [Mass/Vol] 9.4 g/dL below low threshold See Below [facility] -[facility] [employer] Work Phone: Comment on above: Reference Range: 13. 5 - 17.5 Hematocrit (Bld) [Volume fraction] 29.8 % below low threshold See Below [facility] -[facility] [employer] Work Phone: Comment on above: Reference Range: 41. 0 - 52.0 Hematocrit Est (Bld) [Volume fraction] 29.0 % below low threshold See Below [facility] -[facility] [employer] Work Phone: Comment on above: Reference Range: 41. 0 - 52.0 Hemoglobin (Bld) [Mass/Vol] 9.2 g/dL below low threshold See Below [facility]Card[facility] [employer] Work Phone: Comment on above: Reference Range: 13. 5 - 17.5 Hemoglobin (Bld) [Mass/Vol] 9.5 g/dL below low threshold See Below [facility]Card[facility] [employer] Work Phone: Comment on above: Reference Range: 13. 5 - 17.5 Platelets (Bld) [#/Vol] 119 10*3/uL below low threshold 150 - 450 MGArgil Data CorpCardiology [employer] Work Phone: RBC (Bld) [#/Vol] 3.43 {x10E12/L} below low threshold See Below [facility]CompanyCard[facility] -[facility] [employer] Work Phone: Comment on above: Reference Range: 4.5 0 - 5.90 Hematocrit Est (Bld) [Volume fraction] 26.0 % below low threshold See Below [facility]Card[facility] [employer] Work Phone: Comment on above: Reference Range: 41. 0 - 52.0 Hemoglobin (Bld) [Mass/Vol] 8.7 g/dL below low threshold See Below MG-Cardiology -[facility] [employer] Work Phone: Comment on above: Reference Range: 13. 5 - 17.5 Magnesium, Serumon Magnesium [Mass/Vol] 2.17 mg/dL See Below MG-C ardiology -[facility] [employer] Work Phone: Comment on above: Reference Range: 1.6 0 - 2.40 No Panel Informationon 06-05 118 mg/dL above high threshold 74 - 99 MG-Cardiology -[facility] [employer] Work Phone: 101 mg/dL above high threshold 74 - 99 [facility] -[facility] [employer] Work Phone: 110 mg/dL above high threshold 74 - 99 [facility] -[facility] [employer] Work Phone: 120 mg/dL above high threshold 74 - 99 [facility] -[facility] [employer] Work Phone: 136 mg/dL above high threshold 74 - 99 [facility] -[facility] [employer] Work Phone: 16.2 % above high threshold See Below [facility] -[facility] [employer] Work Phone: Comment on above: Reference Range: 11. 5 - 14.5 30.9 g/dL below low threshold See Below [facility]iology -[facility] [employer] Work Phone: Comment on above: Reference Range: 32. 0 - 36.0 87 fL 80 - 100 [facility] -[facility] [employer] Work Phone: 0.0 {/100_WBC} 0.0-0.0 MG-Cardiol ogy -[facility] [employer] Work Phone: 9.1 {x10E9/L} 4.4 - 11.3 MG-Cardiolo gy -Admin [employer] Work Phone: 86 % [facility]iology -[facility] [employer] Work Phone: 37.0 {degrees} MG-Cardiol ogy -[facility] [employer] Work Phone: Comment on above: NOTE: PATIENT RESULT S ARE NOT CORRECTED FOR TEMPERATURE. Radiologyon 06-05-2022 XR Chest Single view Normal MG-C ardiology -[facility] [employer] Work Phone: Renal Function Panelon 06-05 Albumin BCP dye [Mass/Vol] 2.9 g/dL below low threshold 3.4 - 5.0 MG-[facility]iology -[facility] [employer] Work Phone: Calcium [Mass/Vol] 8.3 mg/dL below low threshold 8.6 - 10.6 MG[facility] [employer] Work Phone: Chloride [Moles/Vol] 109 mmol/L above high threshold 98 - 107 [facility] [employer] Work Phone: CO2 [Moles/Vol] 21 mmol/L 21 - 32 MG-Cardio logy -[facility] [employer] Work Phone: Creatinine [Mass/Vol] 0.94 mg/dL See Below MG- Cardiology -[facility] [employer] Work Phone: Comment on above: Reference Range: 0.5 0 - 1.30 Glucose [Mass/Vol] 166 mg/dL above high threshold 74 - 99 MG[facility]Cardiology -[facility] [employer] Work Phone: Phosphate [Mass/Vol] 3.4 mg/dL 2.5 - 4.9 MG-C ardiology -[employer] Work Phone: Comment on above: The performance deepthi acteristics of phosphorus testing in heparinized plasma have been validated by the individual laboratory site where testing is performed. Testing on heparinized plasma is not approved by the FDA; however, such approval is not necessary. Potassium [Moles/Vol] 4.7 mmol/L 3.5 - 5.3 MG- Cardiology -[facility] [employer] Work Phone: Sodium [Moles/Vol] 141 mmol/L 136 - 145 MG-Car diology -Admin [employer] Work Phone: Urea nitrogen [Mass/Vol] 10 mg/dL 6 - 23 MG-Cardiology [facility] Work Phone: Renal Function Panel 82 {mL/min/1.73m2} >90 MG-Cardiology [facility] Work Phone: Comment on above: CALCULATIONS OF GRACE MATED GFR ARE PERFORMED USING THE 2020 CKD-EPI STUDY REFIT EQUATION WITHOUT THE RACE VARIABLE FOR THE IDMS-TRACEABLE CREATININE METHODS.https://jasn.asnjournals.org/content/early//A SN.2891315298 Renal Function Panel 16 mmol/L 10 - 20 MG-C ardiology -[facility] Work Phone: Calcium, Ionized Levelon Calcium, Ionized Level 1.28 mmol/L See Below M G-[facility] Work Phone: Comment on above: Reference Range: 1.1 0 - 1.33 The performance characteristics of ionized calcium tested in heparinized plasma or serum have been validated by the individual laboratory site where testing is performed. Testing on heparinized plasma or serum is not approved by the FDA; however, such approval is not necessary. Fibrinogen Assayon 2 Fibrinogen Assay 203 mg/dL 200 - 400 MG-Cardi ology [facility] Work Phone: Heparin assay, UFHon [id number] Heparin unfractionated Chromogenic method Qn (PPP) Canceled MG-Cardiology [facility] Work Phone: Comment on above: The therapeutic refe rence range for UFH may be either 0.3-0.6 IU/mL or 0.3-0.7 IU/mL based on the clinical setting for anticoagulant therapy and the associated nomogram used. For heparin dosing guidelines based on clinical scenario and Heparin Assay results, please refer to local Pharmacy and the [facility] Guidelines for Anticoagulation therapy available on the [facility] intranet at:[email or web address] Laboratory - Chemistry and C hemistry - challengeon 06-04-2022 Anion gap 4 (BldA) [Moles/Vol] 15 mmol/L 10 - 25 MG-Cardiology -[facility] [employer] Work Phone: Base excess Calc (Bld) [Moles/Vol] -4.0000 mmol/L below low threshold -2.0 - 3.0 MG-Cardiology -[facility] [employer] Work Phone: Calcium.ionized (BldA) [Moles/Vol] 1.16 mmol/L See Below [facility]-Cardiology -[facility] [employer] Work Phone: Comment on above: Reference Range: 1.1 0 - 1.33 Chloride (BldA) [Moles/Vol] 106 mmol/L 98 - 107 MG-Cardiology -[facility] [employer] Work Phone: CO2 (Bld) [Partial pressure] 36 mm[Hg] below low threshold 38 - 42 MG-Cardiology -[facility] [employer] Work Phone: Glucose [Mass/Vol] 182 mg/dL above high threshold 74 - 99 MG-Cardiology -[facility] [employer] Work Phone: HCO3 (Bld) [Moles/Vol] 20.8 mmol/L below low threshold See Below MG-Cardiology -[facility] [employer] Work Phone: Comment on above: Reference Range: 22. 0 - 26.0 Lactate (BldA) [Moles/Vol] 4.0 mmol/L Critically high 0.4 - 2.0 MG-Cardiology -[facility] [employer] Work Phone: Comment on above: CRIT LACT CALLED RB TO LEA HORNER [id number]., 06/04/2022 23:48 Oxygen (Bld) [Partial pressure] 82 mm[Hg] below low threshold 85 - 95 MG-Cardiology -[facility] [employer] Work Phone: Oxyhemoglobin (BldA) [Mass fraction] 95.3 % See Below [facility]-Cardiology -[facility] [employer] Work Phone: Comment on above: Reference Range: 94. 0 - 98.0 pH (Bld) 7.37 [pH] below low threshold See Below MG-Cardiology -[facility] [employer] Work Phone: Comment on above: Reference Range: 7.3 8 - 7.42 Potassium (BldA) [Moles/Vol] 4.5 mmol/L 3.5 - 5.3 MGArgil Data CorpCardiology [employer] Work Phone: Sodium (BldA) [Moles/Vol] 137 mmol/L 136 - 145 [employer]-Cardiology -Admin [employer] Work Phone: Anion gap 4 (BldA) [Moles/Vol] 15 mmol/L 10 - 25 MG-Cardiology [employer] Work Phone: Base excess Calc (Bld) [Moles/Vol] -5.0000 mmol/L below low threshold -2.0 - 3.0 MGArgil Data CorpCardiology [employer] Work Phone: Calcium.ionized (BldA) [Moles/Vol] 1.16 mmol/L See Below MGArgil Data CorpCardiology -Admin [employer] Work Phone: Comment on above: Reference Range: 1.1 0 - 1.33 Chloride (BldA) [Moles/Vol] 106 mmol/L 98 - 107 MG-Cardiology [employer] Work Phone: CO2 (Bld) [Partial pressure] 33 mm[Hg] below low threshold 38 - 42 MG-Cardiology [employer] Work Phone: Glucose [Mass/Vol] 192 mg/dL above high threshold 74 - 99 MG-Cardiology [employer] Work Phone: HCO3 (Bld) [Moles/Vol] 19.5 mmol/L below low threshold See Below MGArgil Data CorpCardiology -Admin [employer] Work Phone: Comment on above: Reference Range: 22. 0 - 26.0 Lactate (BldA) [Moles/Vol] 4.4 mmol/L Critically high 0.4 - 2.0 MG-Cardiology [employer] Work Phone: Comment on above: CRIT LACT CALLED RB TO LEA HORNER [id number]., 06/04/2022 21:35 Oxygen (Bld) [Partial pressure] 131 mm[Hg] above high threshold 85 - 95 MG-Cardiology -[facility] [employer] Work Phone: Oxyhemoglobin (BldA) [Mass fraction] 96.7 % See Below MG-Cardiology -[facility] [employer] Work Phone: Comment on above: Reference Range: 94. 0 - 98.0 pH (Bld) 7.38 [pH] See Below MG-Cardiology -[facility] [employer] Work Phone: Comment on above: Reference Range: 7.3 8 - 7.42 Potassium (BldA) [Moles/Vol] 4.4 mmol/L 3.5 - 5.3 MG-Cardiology -[facility] [employer] Work Phone: Sodium (BldA) [Moles/Vol] 136 mmol/L 136 - 145 MG-Cardiology -[facility] [employer] Work Phone: Anion gap 4 (BldMV) [Moles/Vol] 17 mmol/L 10 - 25 MG-Cardiology -[facility] [employer] Work Phone: Base excess Calc (BldMV) [Moles/Vol] -5.8 mmol/L MG-Cardiolog y -Admin [employer] Work Phone: Calcium.ionized (BldMV) [Moles/Vol] 1.16 mmol/L See Below MG-Cardiolog y -Admin [employer] Work Phone: Comment on above: Reference Range: 1.1 0 - 1.33 Chloride [Moles/Vol] 105 mmol/L 98 - 107 MG-C ardiology -Admin [employer] Work Phone: CO2 (BldMV) [Partial pressure] 36 {mmHg} MG-Cardiology -[facility] [employer] Work Phone: Glucose [Mass/Vol] 182 mg/dL above high threshold 74 - 99 MG-Cardiology -[facility] [employer] Work Phone: HCO3 (BldMV) [Moles/Vol] 19.4 mmol/L [employer] [facility] [employer] Work Phone: Lactate (BldMV) [Moles/Vol] 5.2 mmol/L Critically high 0.4 - 2.0 MG-Cardiology [employer] Work Phone: Comment on above: CRIT LACT CALLED RB TO DR ESTRADA,TATE [id number]., 06/04/2022 20:22 Oxygen (BldMV) [Partial pressure] 43 {mmHg} [employer] CorpCard[facility] [employer] Work Phone: Oxyhemoglobin (BldMV) [Mass fraction] 68.9 % See Below [employer] [facility] [employer] Work Phone: Comment on above: Reference Range: 45. 0 - 75.0 pH (BldMV) 7.34 1 [employer] [employer] Work Phone: Potassium (BldMV) [Moles/Vol] 4.3 mmol/L 3.5 - 5.3 [employer] [employer] Work Phone: Sodium (BldMV) [Moles/Vol] 137 mmol/L 136 - 145 [employer] [employer] Work Phone: Anion gap 4 (BldA) [Moles/Vol] 17 mmol/L 10 - 25 [employer] [employer] Work Phone: Base excess Calc (Bld) [Moles/Vol] -6.0000 mmol/L below low threshold -2.0 - 3.0 MG-Cardiology [employer] Work Phone: Calcium.ionized (BldA) [Moles/Vol] 1.15 mmol/L See Below [employer] [facility] -[facility] [employer] Work Phone: Comment on above: Reference Range: 1.1 0 - 1.33 Chloride (BldA) [Moles/Vol] 106 mmol/L 98 - 107 MGArgil Data CorpCardiology [employer] Work Phone: CO2 (Bld) [Partial pressure] 32 mm[Hg] below low threshold 38 - 42 MG-Cardiology -Admin [employer] Work Phone: Glucose [Mass/Vol] 181 mg/dL above high threshold 74 - 99 MG-Cardiology -Admin [employer] Work Phone: HCO3 (Bld) [Moles/Vol] 18.5 mmol/L below low threshold See Below MG-Cardiology -Admin [employer] Work Phone: Comment on above: Reference Range: 22. 0 - 26.0 Lactate (BldA) [Moles/Vol] 5.2 mmol/L Critically high 0.4 - 2.0 MG-Cardiology -Admin [employer] Work Phone: Comment on above: CRIT LACT CALLED RB TO DR ESTRADA,TATE [id number]., 06/04/2022 20:07 Oxygen (Bld) [Partial pressure] 111 mm[Hg] above high threshold 85 - 95 MG-Cardiology [employer] Work Phone: Oxyhemoglobin (BldA) [Mass fraction] 96.3 % See Below MGArgil Data CorpCardiology -Admin [employer] Work Phone: Comment on above: Reference Range: 94. 0 - 98.0 pH (Bld) 7.37 [pH] below low threshold See Below MG-Cardiology -Admin [employer] Work Phone: Comment on above: Reference Range: 7.3 8 - 7.42 Potassium (BldA) [Moles/Vol] 4.2 mmol/L 3.5 - 5.3 MG-Cardiology -Admin [employer] Work Phone: Sodium (BldA) [Moles/Vol] 137 mmol/L 136 - 145 MG-Cardiology -Admin [employer] Work Phone: Anion gap 4 (BldA) [Moles/Vol] 16 mmol/L 10 - 25 MG-Cardiology -Admin [employer] Work Phone: Base excess Calc (Bld) [Moles/Vol] -6.1000 mmol/L below low threshold -2.0 - 3.0 MG-Cardiology -Admin [employer] Work Phone: Calcium.ionized (BldA) [Moles/Vol] 1.19 mmol/L See Below MG-Cardiology -[facility] [employer] Work Phone: Comment on above: Reference Range: 1.1 0 - 1.33 Chloride (BldA) [Moles/Vol] 106 mmol/L 98 - 107 MG-Cardiology [employer] Work Phone: CO2 (Bld) [Partial pressure] 33 mm[Hg] below low threshold 38 - 42 MG-Cardiology -Admin [employer] Work Phone: Glucose [Mass/Vol] 151 mg/dL above high threshold 74 - 99 MG-Cardiology -Admin [employer] Work Phone: HCO3 (Bld) [Moles/Vol] 18.6 mmol/L below low threshold See Below MGArgil Data CorpCardiology -Admin [employer] Work Phone: Comment on above: Reference Range: 22. 0 - 26.0 Lactate (BldA) [Moles/Vol] 6.2 mmol/L Critically high 0.4 - 2.0 MG-Cardiology [employer] Work Phone: Oxygen (Bld) [Partial pressure] 136 mm[Hg] above high threshold 85 - 95 MG-Cardiology -Admin [employer] Work Phone: Oxyhemoglobin (BldA) [Mass fraction] 97.3 % See Below MGArgil Data CorpCardiology -Admin [employer] Work Phone: Comment on above: Reference Range: 94. 0 - 98.0 pH (Bld) 7.36 [pH] below low threshold See Below MGArg[facility] Data CorpCardiology -Admin [employer] Work Phone: Comment on above: Reference Range: 7.3 8 - 7.42 Potassium (BldA) [Moles/Vol] 3.6 mmol/L 3.5 - 5.3 [facility]-Cardiology -[facility] [employer] Work Phone: Sodium (BldA) [Moles/Vol] 137 mmol/L 136 - 145 [facility]iology -[facility] [employer] Work Phone: Anion gap 4 (BldMV) [Moles/Vol] 14 mmol/L 10 - 25 [facility]iology -[facility] [employer] Work Phone: Base excess Calc (BldMV) [Moles/Vol] -4.1 mmol/L MG-Cardiolog y -[facility] [employer] Work Phone: Calcium.ionized (BldMV) [Moles/Vol] 1.29 mmol/L See Below MG-Cardiolog y -[facility] [employer] Work Phone: Comment on above: Reference Range: 1.1 0 - 1.33 Chloride [Moles/Vol] 106 mmol/L 98 - 107 MG-C ardiology -[facility] [employer] Work Phone: CO2 (BldMV) [Partial pressure] 48 {mmHg} MG-Cardiology -[facility] [employer] Work Phone: Glucose [Mass/Vol] 115 mg/dL above high threshold 74 - 99 MG[facility]Cardiology -[facility] [employer] Work Phone: HCO3 (BldMV) [Moles/Vol] 22.6 mmol/L MG-Cardiology -[facility] [employer] Work Phone: Lactate (BldMV) [Moles/Vol] 4.2 mmol/L Critically high 0.4 - 2.0 MG-Cardiology -[facility] [employer] Work Phone: Comment on above: LACMX Called- RB to MARGI NEAL, 06/04/2022 16:10 Oxygen (BldMV) [Partial pressure] 53 {mmHg} MG-Cardiology -[facility] [employer] Work Phone: Oxyhemoglobin (BldMV) [Mass fraction] 79.0 % above high threshold See Below MG-Cardiology -[facility] [employer] Work Phone: Comment on above: Reference Range: 45. 0 - 75.0 pH (BldMV) 7.28 1 MG-Cardiology -[facility] [employer] Work Phone: Potassium (BldMV) [Moles/Vol] 3.7 mmol/L 3.5 - 5.3 MG-Cardiology -Admin [employer] Work Phone: Sodium (BldMV) [Moles/Vol] 139 mmol/L 136 - 145 MG[facility]Cardiology -[facility] [employer] Work Phone: Anion gap 4 (BldA) [Moles/Vol] 14 mmol/L 10 - 25 MG[facility]Cardiology -[facility] [employer] Work Phone: Base excess Calc (Bld) [Moles/Vol] -3.9000 mmol/L below low threshold -2.0 - 3.0 MG-Cardiology -[facility] [employer] Work Phone: Calcium.ionized (BldA) [Moles/Vol] 1.30 mmol/L See Below MG-Cardiology -Admin [employer] Work Phone: Comment on above: Reference Range: 1.1 0 - 1.33 Chloride (BldA) [Moles/Vol] 106 mmol/L 98 - 107 MG[facility]Cardiology -[facility] [employer] Work Phone: CO2 (Bld) [Partial pressure] 44 mm[Hg] above high threshold 38 - 42 MG-Cardiology -Admin [employer] Work Phone: Glucose [Mass/Vol] 117 mg/dL above high threshold 74 - 99 [facility] Work Phone: HCO3 (Bld) [Moles/Vol] 22.2 mmol/L See Below M [facility] -[facility] [employer] Work Phone: Comment on above: Reference Range: 22. 0 - 26.0 Lactate (BldA) [Moles/Vol] 4.3 mmol/L Critically high 0.4 - 2.0 [facility] Work Phone: Comment on above: Called- RB to JOSÉ LUIS [place], 06/04/2022 15:55 Oxygen (Bld) [Partial pressure] 103 mm[Hg] above high threshold 85 - 95 [facility] Work Phone: Oxyhemoglobin (BldA) [Mass fraction] 96.0 % See Below [employer]-[facility] -Admin [employer] Work Phone: Comment on above: Reference Range: 94. 0 - 98.0 pH (Bld) 7.31 [pH] below low threshold See Below [facility] [employer] Work Phone: Comment on above: Reference Range: 7.3 8 - 7.42 Potassium (BldA) [Moles/Vol] 3.7 mmol/L 3.5 - 5.3 [facility] [employer] Work Phone: Sodium (BldA) [Moles/Vol] 138 mmol/L 136 - 145 [employer] [employer] Work Phone: Anion gap 4 (BldA) [Moles/Vol] 13 mmol/L 10 - 25 [facility] [employer] Work Phone: Base excess Calc (Bld) [Moles/Vol] -3.3000 mmol/L below low threshold -2.0 - 3.0 [facility] [employer] Work Phone: Calcium.ionized (BldA) [Moles/Vol] 1.01 mmol/L below low threshold See Below [facility] [employer] Work Phone: Comment on above: Reference Range: 1.1 0 - 1.33 Carboxyhemoglobin (BldA) [Mass fraction] 1.3 % [facility] logy -Admin [employer] Work Phone: Comment on above: REF VALUESNONSMOKERS 0.5-1.5%SMOKERS 0.5-10.0% Chloride (BldA) [Moles/Vol] 107 mmol/L 98 - 107 [facility] [employer] Work Phone: CO2 (Bld) [Partial pressure] 47 mm[Hg] above high threshold 38 - 42 [facility] [employer] Work Phone: Glucose [Mass/Vol] 107 mg/dL above high threshold 74 - 99 [facility] [employer] Work Phone: HCO3 (Bld) [Moles/Vol] 23.1 mmol/L See Below M [facility] [employer] Work Phone: Comment on above: Reference Range: 22. 0 - 26.0 Lactate (BldA) [Moles/Vol] 3.6 mmol/L above high threshold 0.4 - 2.0 [facility] [employer] Corp[employer] Work Phone: Methemoglobin (BldA) [Mass fraction] 0.6 % 0.0 - 1.5 [facility] [employer] Work Phone: Oxygen (Bld) [Partial pressure] 179 mm[Hg] above high threshold 85 - 95 [facility] [employer] Work Phone: Oxyhemoglobin (BldA) [Mass fraction] 98.0 % See Below [employer] CorpCardiology [employer] CorpAdmin [employer] Work Phone: Comment on above: Reference Range: 94. 0 - 98.0 pH (Bld) 7.30 [pH] below low threshold See Below MGArg[facility] CorpCardiology -Admin [facility] Work Phone: Comment on above: Reference Range: 7.3 8 - 7.42 Potassium (BldA) [Moles/Vol] 3.7 mmol/L 3.5 - 5.3 [facility] [employer] Work Phone: Sodium (BldA) [Moles/Vol] 139 mmol/L 136 - 145 [facility] [employer] Work Phone: Anion gap 4 (BldA) [Moles/Vol] 9 mmol/L below low threshold 10 - 25 [facility] [employer]Admin [employer] Work Phone: Base excess Calc (Bld) [Moles/Vol] -2.6000 mmol/L below low threshold -2.0 - 3.0 [facility] [employer]Admin [employer] Work Phone: Calcium.ionized (BldA) [Moles/Vol] 1.10 mmol/L See Below [facility] [employer] Work Phone: Comment on above: Reference Range: 1.1 0 - 1.33 Carboxyhemoglobin (BldA) [Mass fraction] 1.2 % [facility] logy -Admin [employer] Work Phone: Comment on above: REF VALUESNONSMOKERS 0.5-1.5%SMOKERS 0.5-10.0% Chloride (BldA) [Moles/Vol] 108 mmol/L above high threshold 98 - 107 [facility] Work Phone: CO2 (Bld) [Partial pressure] 55 mm[Hg] above high threshold 38 - 42 [facility] [employer] Work Phone: Glucose [Mass/Vol] 139 mg/dL above high threshold 74 - 99 [facility] [employer] Work Phone: HCO3 (Bld) [Moles/Vol] 24.7 mmol/L See Below M [facility] [employer] Work Phone: Comment on above: Reference Range: 22. 0 - 26.0 Lactate (BldA) [Moles/Vol] 2.5 mmol/L above high threshold 0.4 - 2.0 [facility] Work Phone: Methemoglobin (BldA) [Mass fraction] 0.8 % 0.0 - 1.5 [facility] [employer] Work Phone: Oxygen (Bld) [Partial pressure] 109 mm[Hg] above high threshold 85 - 95 [facility] [employer] Work Phone: Oxyhemoglobin (BldA) [Mass fraction] 96.8 % See Below MGArgil Data CorpCardiology -Admin [employer] Work Phone: Comment on above: Reference Range: 94. 0 - 98.0 pH (Bld) 7.26 [pH] below low threshold See Below [facility] [employer] Work Phone: Comment on above: Reference Range: 7.3 8 - 7.42 Potassium (BldA) [Moles/Vol] 4.3 mmol/L 3.5 - 5.3 [facility] [employer] Work Phone: Sodium (BldA) [Moles/Vol] 137 mmol/L 136 - 145 [facility] [employer] Work Phone: Anion gap 4 (BldA) [Moles/Vol] 10 mmol/L 10 - 25 [facility] [employer] Work Phone: Base excess Calc (Bld) [Moles/Vol] -3.6000 mmol/L below low threshold -2.0 - 3.0 [facility] [employer] Work Phone: Calcium.ionized (BldA) [Moles/Vol] 1.30 mmol/L See Below [facility] [employer] Work Phone: Comment on above: Reference Range: 1.1 0 - 1.33 Carboxyhemoglobin (BldA) [Mass fraction] 1.1 % [facility] logy -[facility] [employer] Work Phone: Comment on above: REF VALUESNONSMOKERS 0.5-1.5%SMOKERS 0.5-10.0% Chloride (BldA) [Moles/Vol] 109 mmol/L above high threshold 98 - 107 [facility] [employer] Work Phone: CO2 (Bld) [Partial pressure] 38 mm[Hg] 38 - 42 [facility] [employer] Work Phone: Glucose [Mass/Vol] 154 mg/dL above high threshold 74 - 99 [facility] [employer] Work Phone: HCO3 (Bld) [Moles/Vol] 21.5 mmol/L below low threshold See Below [facility] [employer] Work Phone: Comment on above: Reference Range: 22. 0 - 26.0 Lactate (BldA) [Moles/Vol] 1.7 mmol/L 0.4 - 2.0 [facility] [employer] Work Phone: Methemoglobin (BldA) [Mass fraction] 0.6 % 0.0 - 1.5 [facility] [employer] Work Phone: Oxygen (Bld) [Partial pressure] 332 mm[Hg] above high threshold 85 - 95 [facility] [employer] Work Phone: Oxyhemoglobin (BldA) [Mass fraction] 98.0 % See Below [facility] [employer] Work Phone: Comment on above: Reference Range: 94. 0 - 98.0 pH (Bld) 7.36 [pH] below low threshold See Below [facility] [employer] Work Phone: Comment on above: Reference Range: 7.3 8 - 7.42 Potassium (BldA) [Moles/Vol] 6.2 mmol/L Critically high 3.5 - 5.3 MGArgil Data CorpCardiology [employer] CorpAdmin [employer] Work Phone: Sodium (BldA) [Moles/Vol] 134 mmol/L below low threshold 136 - 145 MGArg[facility] Data CorpCardiology [employer] Work Phone: Anion gap 4 (BldA) [Moles/Vol] 8 mmol/L below low threshold 10 - 25 [facility] Work Phone: Base excess Calc (Bld) [Moles/Vol] -0.4000 mmol/L -2.0 - 3.0 [facility] [employer] CorpAdmin [employer] Work Phone: Calcium.ionized (BldA) [Moles/Vol] 1.28 mmol/L See Below [facility] -[facility] [employer] Work Phone: Comment on above: Reference Range: 1.1 0 - 1.33 Carboxyhemoglobin (BldA) [Mass fraction] 1.0 % [facility] logy -Admin [employer] Work Phone: Comment on above: REF VALUESNONSMOKERS 0.5-1.5%SMOKERS 0.5-10.0% Chloride (BldA) [Moles/Vol] 107 mmol/L 98 - 107 [facility] [employer] Work Phone: CO2 (Bld) [Partial pressure] 38 mm[Hg] 38 - 42 [facility] [employer] Work Phone: Glucose [Mass/Vol] 133 mg/dL above high threshold 74 - 99 [facility] [employer] Work Phone: HCO3 (Bld) [Moles/Vol] 24.1 mmol/L See Below M [facility] -[facility] [employer] Work Phone: Comment on above: Reference Range: 22. 0 - 26.0 Lactate (BldA) [Moles/Vol] 1.5 mmol/L 0.4 - 2.0 [facility] [employer] Work Phone: Methemoglobin (BldA) [Mass fraction] 1.0 % 0.0 - 1.5 [facility] [employer] Work Phone: Oxygen (Bld) [Partial pressure] 347 mm[Hg] above high threshold 85 - 95 [facility] [employer] Work Phone: Oxyhemoglobin (BldA) [Mass fraction] 97.9 % See Below [facility] [employer]Admin [employer] Work Phone: Comment on above: Reference Range: 94. 0 - 98.0 pH (Bld) 7.41 [pH] See Below [facility] [employer] Work Phone: Comment on above: Reference Range: 7.3 8 - 7.42 Potassium (BldA) [Moles/Vol] 4.9 mmol/L 3.5 - 5.3 [facility] [employer] Work Phone: Sodium (BldA) [Moles/Vol] 134 mmol/L below low threshold 136 - 145 [facility] [employer] Work Phone: Anion gap 4 (BldA) [Moles/Vol] 9 mmol/L below low threshold 10 - 25 [facility] [employer] Work Phone: Base excess Calc (Bld) [Moles/Vol] -1.2000 mmol/L -2.0 - 3.0 [facility] [employer] Work Phone: Calcium.ionized (BldA) [Moles/Vol] 1.00 mmol/L below low threshold See Below [facility] [employer] Work Phone: Comment on above: Reference Range: 1.1 0 - 1.33 Carboxyhemoglobin (BldA) [Mass fraction] 1.5 % [facility]io logy -Admin [employer] Work Phone: Comment on above: REF VALUESNONSMOKERS 0.5-1.5%SMOKERS 0.5-10.0% Chloride (BldA) [Moles/Vol] 107 mmol/L 98 - 107 [facility] [employer] Work Phone: CO2 (Bld) [Partial pressure] 39 mm[Hg] 38 - 42 [facility] [employer] Work Phone: Glucose [Mass/Vol] 118 mg/dL above high threshold 74 - 99 [facility] [employer] Work Phone: HCO3 (Bld) [Moles/Vol] 23.6 mmol/L See Below M [facility] [employer] Work Phone: Comment on above: Reference Range: 22. 0 - 26.0 Lactate (BldA) [Moles/Vol] 1.3 mmol/L 0.4 - 2.0 [facility] [employer] Work Phone: Methemoglobin (BldA) [Mass fraction] 0.9 % 0.0 - 1.5 [facility] [employer] Work Phone: Oxygen (Bld) [Partial pressure] 387 mm[Hg] above high threshold 85 - 95 [facility] [employer] Work Phone: Oxyhemoglobin (BldA) [Mass fraction] 97.6 % See Below [facility] [employer] Work Phone: Comment on above: Reference Range: 94. 0 - 98.0 pH (Bld) 7.39 [pH] See Below [facility] -[facility] [employer] Work Phone: Comment on above: Reference Range: 7.3 8 - 7.42 Potassium (BldA) [Moles/Vol] 5.1 mmol/L 3.5 - 5.3 [facility] [employer] Work Phone: Sodium (BldA) [Moles/Vol] 134 mmol/L below low threshold 136 - 145 [facility] [employer] Work Phone: Anion gap 4 (BldA) [Moles/Vol] 9 mmol/L below low threshold 10 - 25 [facility] [employer]Admin [employer] Work Phone: Base excess Calc (Bld) [Moles/Vol] -0.4000 mmol/L -2.0 - 3.0 MGArgil Data CorpCardiology [employer] Work Phone: Calcium.ionized (BldA) [Moles/Vol] 1.05 mmol/L below low threshold See Below [facility] [employer] CorpAdmin [employer] Work Phone: Comment on above: Reference Range: 1.1 0 - 1.33 Carboxyhemoglobin (BldA) [Mass fraction] 0.9 % [employer] logy [employer] Work Phone: Comment on above: REF VALUESNONSMOKERS 0.5-1.5%SMOKERS 0.5-10.0% Chloride (BldA) [Moles/Vol] 105 mmol/L 98 - 107 [facility] [employer]Admin [employer] Work Phone: CO2 (Bld) [Partial pressure] 42 mm[Hg] 38 - 42 [employer]-[facility] [employer] Work Phone: Glucose [Mass/Vol] 132 mg/dL above high threshold 74 - 99 MGArgil Data CorpCardiology [employer] CorpAdmin [employer] Work Phone: HCO3 (Bld) [Moles/Vol] 24.8 mmol/L See Below M GArgil Data CorpCardiology [employer] Work Phone: Comment on above: Reference Range: 22. 0 - 26.0 Lactate (BldA) [Moles/Vol] 0.9 mmol/L 0.4 - 2.0 MGArgil Data CorpCardiology [employer] CorpAdmin [employer] Work Phone: Methemoglobin (BldA) [Mass fraction] 0.5 % 0.0 - 1.5 MGArg[facility] Data CorpCardiology [employer] Work Phone: Oxygen (Bld) [Partial pressure] 393 mm[Hg] above high threshold 85 - 95 MGArg[facility] Data CorpCardiology [employer] Work Phone: Oxyhemoglobin (BldA) [Mass fraction] 98.3 % above high threshold See Below [employer] [employer] CorpCardiology [employer] CorpAdmin [employer] Work Phone: Comment on above: Reference Range: 94. 0 - 98.0 pH (Bld) 7.38 [pH] See Below [employer] [employer] CorpCardiology [employer] CorpAdmin [employer] Work Phone: Comment on above: Reference Range: 7.3 8 - 7.42 Potassium (BldA) [Moles/Vol] 5.1 mmol/L 3.5 - 5.3 MGArg[facility] CorpCardiology [employer] Work Phone: Sodium (BldA) [Moles/Vol] 134 mmol/L below low threshold 136 - 145 [employer] CorpCard[facility] [employer] Work Phone: Anion gap 4 (BldA) [Moles/Vol] 8 mmol/L below low threshold 10 - 25 MGArg[facility] Data CorpCardiology [employer] CorpAdmin [employer] Work Phone: Base excess Calc (Bld) [Moles/Vol] -1.4000 mmol/L -2.0 - 3.0 MGArg[facility] Data CorpCardiology [employer] Work Phone: Calcium.ionized (BldA) [Moles/Vol] 1.07 mmol/L below low threshold See Below [employer] CorpCardiology [employer] CorpAdmin [employer] Work Phone: Comment on above: Reference Range: 1.1 0 - 1.33 Carboxyhemoglobin (BldA) [Mass fraction] 0.8 % [facility] logy -Admin [employer] Work Phone: Comment on above: REF VALUESNONSMOKERS 0.5-1.5%SMOKERS 0.5-10.0% Chloride (BldA) [Moles/Vol] 107 mmol/L 98 - 107 [facility] [employer] Work Phone: CO2 (Bld) [Partial pressure] 44 mm[Hg] above high threshold 38 - 42 [facility] [employer] Work Phone: Glucose [Mass/Vol] 158 mg/dL above high threshold 74 - 99 [facility] [employer] Work Phone: HCO3 (Bld) [Moles/Vol] 24.3 mmol/L See Below M [facility] [employer] Work Phone: Comment on above: Reference Range: 22. 0 - 26.0 Lactate (BldA) [Moles/Vol] 0.9 mmol/L 0.4 - 2.0 [facility] -[facility] [employer] Work Phone: Methemoglobin (BldA) [Mass fraction] 1.1 % 0.0 - 1.5 [facility] [employer] Work Phone: Oxygen (Bld) [Partial pressure] 389 mm[Hg] above high threshold 85 - 95 [facility] [employer] Work Phone: Oxyhemoglobin (BldA) [Mass fraction] 97.5 % See Below MGArgil Data CorpCardiology -Admin [employer] Work Phone: Comment on above: Reference Range: 94. 0 - 98.0 pH (Bld) 7.35 [pH] below low threshold See Below [facility] [employer] Work Phone: Comment on above: Reference Range: 7.3 8 - 7.42 Potassium (BldA) [Moles/Vol] 5.9 mmol/L above high threshold 3.5 - 5.3 [facility] [employer] Work Phone: Sodium (BldA) [Moles/Vol] 133 mmol/L below low threshold 136 - 145 [facility] [employer] Work Phone: Anion gap 4 (BldV) [Moles/Vol] 10 mmol/L 10 - 25 [facility] [employer] Work Phone: Base excess Calc (BldV) [Moles/Vol] -2.7000 mmol/L below low threshold -2.0 - 3.0 [facility] [employer] Work Phone: Calcium.ionized (BldV) [Moles/Vol] 1.02 mmol/L below low threshold See Below [facility] [employer] Work Phone: Comment on above: Reference Range: 1.1 0 - 1.33 Carboxyhemoglobin (BldV) [Mass fraction] 1.3 % [facility]io logy -[facility] [employer] Work Phone: Comment on above: REF VALUESNONSMOKERS 0.5-1.5%SMOKERS 0.5-10.0% Chloride (BldV) [Moles/Vol] 104 mmol/L 98 - 107 [facility] [employer] Work Phone: CO2 (BldV) [Partial pressure] 62 mm[Hg] above high threshold 41 - 51 [facility] [employer] Work Phone: Glucose [Mass/Vol] 147 mg/dL above high threshold 74 - 99 [facility] [employer] Work Phone: HCO3 (Bld) [Moles/Vol] 25.4 mmol/L See Below M [facility] [employer] Work Phone: Comment on above: Reference Range: 22. 0 - 26.0 Lactate (BldV) [Moles/Vol] 0.8 mmol/L 0.4 - 2.0 [facility] [employer] Work Phone: Methemoglobin (BldV) [Mass fraction] 0.6 % 0.0 - 1.5 [facility] [employer] Work Phone: Oxygen (BldV) [Partial pressure] 64 mm[Hg] above high threshold 35 - 45 [facility] [employer] Work Phone: Oxyhemoglobin (BldV) [Mass fraction] 90.3 % above high threshold See Below [facility] [employer] Work Phone: Comment on above: Reference Range: 45. 0 - 75.0 pH (BldV) 7.22 [pH] Critically low See Below [facility]iol o[facility] -[facility] [employer] Work Phone: Comment on above: Reference Range: 7.3 3 - 7.43 Potassium (BldV) [Moles/Vol] 5.6 mmol/L above high threshold 3.5 - 5.3 [facility] [employer] Work Phone: Sodium (BldV) [Moles/Vol] 134 mmol/L below low threshold 136 - 145 [facility] [employer] Work Phone: Anion gap 4 (BldA) [Moles/Vol] 5 mmol/L below low threshold 10 - 25 [facility] [employer] Work Phone: Base excess Calc (Bld) [Moles/Vol] -0.3000 mmol/L -2.0 - 3.0 [facility] [employer] Work Phone: Calcium.ionized (BldA) [Moles/Vol] 1.04 mmol/L below low threshold See Below [facility] [employer] Work Phone: Comment on above: Reference Range: 1.1 0 - 1.33 Carboxyhemoglobin (BldA) [Mass fraction] 0.9 % [facility]io logy -[facility] [employer] Work Phone: Comment on above: REF VALUESNONSMOKERS 0.5-1.5%SMOKERS 0.5-10.0% Chloride (BldA) [Moles/Vol] 106 mmol/L 98 - 107 [facility] [employer] Work Phone: CO2 (Bld) [Partial pressure] 65 mm[Hg] above high threshold 38 - 42 [facility] [employer] Work Phone: Glucose [Mass/Vol] 156 mg/dL above high threshold 74 - 99 [facility] [employer] Work Phone: HCO3 (Bld) [Moles/Vol] 27.9 mmol/L above hig h threshold See Below [facility] [employer] Work Phone: Comment on above: Reference Range: 22. 0 - 26.0 Lactate (BldA) [Moles/Vol] 0.8 mmol/L 0.4 - 2.0 [facility] [employer] Work Phone: Methemoglobin (BldA) [Mass fraction] 1.0 % 0.0 - 1.5 [facility] [employer] Work Phone: Oxygen (Bld) [Partial pressure] 385 mm[Hg] above high threshold 85 - 95 [facility] [employer] Work Phone: Oxyhemoglobin (BldA) [Mass fraction] 97.8 % See Below [facility] [employer] Work Phone: Comment on above: Reference Range: 94. 0 - 98.0 pH (Bld) 7.24 [pH] Critically low See Below [facility]iol o[facility] -[facility] [employer] Work Phone: Comment on above: Reference Range: 7.3 8 - 7.42 Called- RB to MARY MICHAEL, 06/04/2022 10:29 Potassium (BldA) [Moles/Vol] 4.7 mmol/L 3.5 - 5.3 [facility] [employer] Work Phone: Sodium (BldA) [Moles/Vol] 134 mmol/L below low threshold 136 - 145 [facility] [employer] Work Phone: Anion gap 4 (BldA) [Moles/Vol] 8 mmol/L below low threshold 10 - 25 [facility] [employer] Work Phone: Base excess Calc (Bld) [Moles/Vol] -2.6000 mmol/L below low threshold -2.0 - 3.0 [facility] [employer] Work Phone: Calcium.ionized (BldA) [Moles/Vol] 1.15 mmol/L See Below [facility] [employer] Work Phone: Comment on above: Reference Range: 1.1 0 - 1.33 Carboxyhemoglobin (BldA) [Mass fraction] 1.2 % [facility]io logy -Admin [employer] Work Phone: Comment on above: REF VALUESNONSMOKERS 0.5-1.5%SMOKERS 0.5-10.0% Chloride (BldA) [Moles/Vol] 105 mmol/L 98 - 107 [facility] [employer] Work Phone: CO2 (Bld) [Partial pressure] 63 mm[Hg] above high threshold 38 - 42 [facility] -[facility] [employer] Work Phone: Glucose [Mass/Vol] 121 mg/dL above high threshold 74 - 99 [facility] [employer] Work Phone: HCO3 (Bld) [Moles/Vol] 25.8 mmol/L See Below M [facility] [employer] Work Phone: Comment on above: Reference Range: 22. 0 - 26.0 Lactate (BldA) [Moles/Vol] 0.5 mmol/L 0.4 - 2.0 [facility] -[facility] [employer] Work Phone: Methemoglobin (BldA) [Mass fraction] 0.6 % 0.0 - 1.5 [facility] -[facility] [employer] Work Phone: Oxygen (Bld) [Partial pressure] 205 mm[Hg] above high threshold 85 - 95 [facility] [employer] Work Phone: Oxyhemoglobin (BldA) [Mass fraction] 98.2 % above high threshold See Below [facility] [employer] Work Phone: Comment on above: Reference Range: 94. 0 - 98.0 pH (Bld) 7.22 [pH] Critically low See Below [facility]iol o[facility] -Admin [employer] Work Phone: Comment on above: Reference Range: 7.3 8 - 7.42 Potassium (BldA) [Moles/Vol] 3.9 mmol/L 3.5 - 5.3 [facility] [employer] Work Phone: Sodium (BldA) [Moles/Vol] 135 mmol/L below low threshold 136 - 145 [facility] [employer] Work Phone: Anion gap 4 (BldA) [Moles/Vol] 9 mmol/L below low threshold 10 - 25 [facility] [employer] Work Phone: Base excess Calc (Bld) [Moles/Vol] -0.2000 mmol/L -2.0 - 3.0 [facility] [employer] Work Phone: Calcium.ionized (BldA) [Moles/Vol] 1.14 mmol/L See Below [facility] [employer] Work Phone: Comment on above: Reference Range: 1.1 0 - 1.33 Carboxyhemoglobin (BldA) [Mass fraction] 1.3 % [facility]Cardio logy -[employer] Work Phone: Comment on above: REF VALUESNONSMOKERS 0.5-1.5%SMOKERS 0.5-10.0% Chloride (BldA) [Moles/Vol] 105 mmol/L 98 - 107 [facility] -[facility] [employer] Work Phone: CO2 (Bld) [Partial pressure] 36 mm[Hg] below low threshold 38 - 42 [facility] [employer] Work Phone: Glucose [Mass/Vol] 106 mg/dL above high threshold 74 - 99 [facility] [employer] Work Phone: HCO3 (Bld) [Moles/Vol] 23.9 mmol/L See Below M [employer] Work Phone: Comment on above: Reference Range: 22. 0 - 26.0 Lactate (BldA) [Moles/Vol] 0.6 mmol/L 0.4 - 2.0 [employer] Work Phone: Methemoglobin (BldA) [Mass fraction] 0.8 % 0.0 - 1.5 [employer] Work Phone: Oxygen (Bld) [Partial pressure] 104 mm[Hg] above high threshold 85 - 95 [employer] Work Phone: Oxyhemoglobin (BldA) [Mass fraction] 96.9 % See Below [employer] Work Phone: Comment on above: Reference Range: 94. 0 - 98.0 pH (Bld) 7.43 [pH] above high threshold See Below [employer] Work Phone: Comment on above: Reference Range: 7.3 8 - 7.42 Potassium (BldA) [Moles/Vol] 3.7 mmol/L 3.5 - 5.3 [employer] Work Phone: Sodium (BldA) [Moles/Vol] 134 mmol/L below low threshold 136 - 145 [employer] Work Phone: Laboratory - Coagulationon 0 06-04-2022 aPTT Coag (PPP) [Time] 29 s 26 - 39 MG [employer] Work Phone: Comment on above: THE APTT IS NO LONGE R USED FOR MONITORING UNFRACTIONATED HEPARIN THERAPY. FOR MONITORING HEPARIN THERAPY, USE THE HEPARIN ASSAY. INR Coag (PPP) [Relative time] 1.3 {INR} above high threshold 0.9 - 1.1 [employer] Work Phone: PT Coag (PPP) [Time] 14.8 s above high threshold 9.8 - 13.4 MGArgil Data CorpCardiology -Admin [employer] Work Phone: Laboratory - Hematology and Cell countson 06-04-2022 Hematocrit Est (Bld) [Volume fraction] 29.0 % below low threshold See Below [facility] -Admin [employer] Work Phone: Comment on above: Reference Range: 41. 0 - 52.0 Hemoglobin (Bld) [Mass/Vol] 9.6 g/dL below low threshold See Below -Cardiology -Admin [employer] Work Phone: Comment on above: Reference Range: 13. 5 - 17.5 Hematocrit Est (Bld) [Volume fraction] 29.0 % below low threshold See Below [facility] -[facility] [employer] Work Phone: Comment on above: Reference Range: 41. 0 - 52.0 Hemoglobin (Bld) [Mass/Vol] 9.7 g/dL below low threshold See Below [facility] -[facility] [employer] Work Phone: Comment on above: Reference Range: 13. 5 - 17.5 Hematocrit Est (Bld) [Volume fraction] 28.0 % below low threshold See Below [facility] -[facility] [employer] Work Phone: Comment on above: Reference Range: 41. 0 - 52.0 Hemoglobin (Bld) [Mass/Vol] 9.3 g/dL below low threshold See Below [facility] -[facility] [employer] Work Phone: Comment on above: Reference Range: 13. 5 - 17.5 Hematocrit Est (Bld) [Volume fraction] 29.0 % below low threshold See Below [facility] -[facility] [employer] Work Phone: Comment on above: Reference Range: 41. 0 - 52.0 Hemoglobin (Bld) [Mass/Vol] 9.5 g/dL below low threshold See Below [facility] [employer] Work Phone: Comment on above: Reference Range: 13. 5 - 17.5 Hematocrit Est (Bld) [Volume fraction] 27.0 % below low threshold See Below [facility] -[facility] [employer] Work Phone: Comment on above: Reference Range: 41. 0 - 52.0 Hemoglobin (Bld) [Mass/Vol] 9.1 g/dL below low threshold See Below [facility] [employer] Work Phone: Comment on above: Reference Range: 13. 5 - 17.5 Hematocrit Est (Bld) [Volume fraction] 28.0 % below low threshold See Below [employer] Work Phone: Comment on above: Reference Range: 41. 0 - 52.0 Hemoglobin (Bld) [Mass/Vol] 9.4 g/dL below low threshold See Below [employer] Work Phone: Comment on above: Reference Range: 13. 5 - 17.5 Hematocrit (Bld) [Volume fraction] 28.1 % below low threshold See Below [employer] Work Phone: Comment on above: Reference Range: 41. 0 - 52.0 Hemoglobin (Bld) [Mass/Vol] 9.0 g/dL below low threshold See Below [employer] Work Phone: Comment on above: Reference Range: 13. 5 - 17.5 Platelets (Bld) [#/Vol] 111 10*3/uL below low threshold 150 - 450 [employer] Work Phone: RBC (Bld) [#/Vol] 3.40 {x10E12/L} below low threshold See Below [employer] Work Phone: Comment on above: Reference Range: 4.5 0 - 5.90 Hematocrit Est (Bld) [Volume fraction] 29.0 % below low threshold See Below [employer] Work Phone: Comment on above: Reference Range: 41. 0 - 52.0 Hemoglobin (Bld) [Mass/Vol] 9.5 g/dL below low threshold See Below [employer] Work Phone: Comment on above: Reference Range: 13. 5 - 17.5 Deoxyhemoglobin (BldA) [Mass fraction] 0.1 % 0.0 - 5.0 [facility] [employer] Work Phone: Hematocrit Est (Bld) [Volume fraction] 28.0 % below low threshold See Below [facility] [employer] Work Phone: Comment on above: Reference Range: 41. 0 - 52.0 Hemoglobin (Bld) [Mass/Vol] 9.4 g/dL below low threshold See Below [facility] [employer] Work Phone: Comment on above: Reference Range: 13. 5 - 17.5 Deoxyhemoglobin (BldA) [Mass fraction] 1.2 % 0.0 - 5.0 MG[facility] CorpCardiology [employer] Work Phone: Hematocrit Est (Bld) [Volume fraction] 27.0 % below low threshold See Below [facility] [employer] Work Phone: Comment on above: Reference Range: 41. 0 - 52.0 Hemoglobin (Bld) [Mass/Vol] 9.0 g/dL below low threshold See Below [facility] [employer] Work Phone: Comment on above: Reference Range: 13. 5 - 17.5 Deoxyhemoglobin (BldA) [Mass fraction] 0.2 % 0.0 - 5.0 [employer] Work Phone: Hematocrit Est (Bld) [Volume fraction] 27.0 % below low threshold See Below [facility] [employer] Work Phone: Comment on above: Reference Range: 41. 0 - 52.0 Hemoglobin (Bld) [Mass/Vol] 9.0 g/dL below low threshold See Below [facility] [employer] Work Phone: Comment on above: Reference Range: 13. 5 - 17.5 Deoxyhemoglobin (BldA) [Mass fraction] 0.1 % 0.0 - 5.0 [facility] [employer] Work Phone: Hematocrit Est (Bld) [Volume fraction] 27.0 % below low threshold See Below [employer] [employer] Work Phone: Comment on above: Reference Range: 41. 0 - 52.0 Hemoglobin (Bld) [Mass/Vol] 9.1 g/dL below low threshold See Below [employer] [facility] [employer] Work Phone: Comment on above: Reference Range: 13. 5 - 17.5 Deoxyhemoglobin (BldA) [Mass fraction] 0.0 % 0.0 - 5.0 MG[facility] CorpCardiology [employer] Work Phone: Hematocrit Est (Bld) [Volume fraction] 29.0 % below low threshold See Below [employer] [employer] Work Phone: Comment on above: Reference Range: 41. 0 - 52.0 Hemoglobin (Bld) [Mass/Vol] 9.5 g/dL below low threshold See Below [facility] [employer] Work Phone: Comment on above: Reference Range: 13. 5 - 17.5 Deoxyhemoglobin (BldA) [Mass fraction] 0.3 % 0.0 - 5.0 [facility] [employer] Work Phone: Hematocrit Est (Bld) [Volume fraction] 29.0 % below low threshold See Below [facility] [employer] Work Phone: Comment on above: Reference Range: 41. 0 - 52.0 Hemoglobin (Bld) [Mass/Vol] 9.5 g/dL below low threshold See Below [facility] [employer] Work Phone: Comment on above: Reference Range: 13. 5 - 17.5 Deoxyhemoglobin (BldA) [Mass fraction] 0.5 % 0.0 - 5.0 [facility] [employer] Work Phone: Hematocrit Est (Bld) [Volume fraction] 29.0 % below low threshold See Below [facility] [employer] Work Phone: Comment on above: Reference Range: 41. 0 - 52.0 Hemoglobin (Bld) [Mass/Vol] 9.6 g/dL below low threshold See Below [employer] -[facility] [employer] Work Phone: Comment on above: Reference Range: 13. 5 - 17.5 Hematocrit Est (Bld) [Volume fraction] 27.0 % below low threshold See Below [facility] [employer] Work Phone: Comment on above: Reference Range: 41. 0 - 52.0 Hemoglobin (Bld) [Mass/Vol] 9.1 g/dL below low threshold See Below [employer] [employer] Work Phone: Comment on above: Reference Range: 13. 5 - 17.5 Deoxyhemoglobin (BldA) [Mass fraction] 0.4 % 0.0 - 5.0 [facility] [employer] Work Phone: Hematocrit Est (Bld) [Volume fraction] 29.0 % below low threshold See Below [employer] [employer] Work Phone: Comment on above: Reference Range: 41. 0 - 52.0 Hemoglobin (Bld) [Mass/Vol] 9.5 g/dL below low threshold See Below [employer] -[facility] [employer] Work Phone: Comment on above: Reference Range: 13. 5 - 17.5 Deoxyhemoglobin (BldA) [Mass fraction] 0.0 % 0.0 - 5.0 [facility] [employer] Work Phone: Hematocrit Est (Bld) [Volume fraction] 31.0 % below low threshold See Below [employer] [employer] Work Phone: Comment on above: Reference Range: 41. 0 - 52.0 Hemoglobin (Bld) [Mass/Vol] 10.4 g/dL below low threshold See Below [employer] [employer] Work Phone: Comment on above: Reference Range: 13. 5 - 17.5 Deoxyhemoglobin (BldA) [Mass fraction] 1.1 % 0.0 - 5.0 MGArg[facility] CorpCardiology [employer] Work Phone: Hematocrit Est (Bld) [Volume fraction] 33.0 % below low threshold See Below [facility] [employer] Work Phone: Comment on above: Reference Range: 41. 0 - 52.0 Hemoglobin (Bld) [Mass/Vol] 11.0 g/dL below low threshold See Below [facility] [employer] Work Phone: Comment on above: Reference Range: 13. 5 - 17.5 Magnesium, Serumon Magnesium [Mass/Vol] 2.98 mg/dL above high threshold See Below [facility] [employer] Work Phone: Comment on above: Reference Range: 1.6 0 - 2.40 No Panel Informationon 06-04 70 % [facility] [employer] Work Phone: 37.0 {degrees} [facility] -[facility] [employer] Work Phone: Comment on above: NOTE: PATIENT RESULT S ARE NOT CORRECTED FOR TEMPERATURE. 81 % [facility] [employer] Work Phone: 37.0 {degrees} [facility] [employer] Work Phone: Comment on above: NOTE: PATIENT RESULT S ARE NOT CORRECTED FOR TEMPERATURE. 16.1 % above high threshold See Below [facility] [employer] Work Phone: Comment on above: Reference Range: 11. 5 - 14.5 32.0 g/dL See Below [facility] Work Phone: Comment on above: Reference Range: 32. 0 - 36.0 83 fL 80 - 100 [facility] [employer] Work Phone: 0.0 {/100_WBC} 0.0-0.0 [facility] Work Phone: 7.9 {x10E9/L} 4.4 - 11.3 [facility] [employer] Work Phone: Inhaled oxygen concentration 70 % [facility] [employer] Work Phone: 103 {SECONDS} 96 - 152 [facility] [employer] Work Phone: Comment on above: Note new reference r keyanna as of 12/29/2018. Target ACT range will vary based on the patient population, clinical status, and surgical intervention occurring. 123 {SECONDS} 96 - 152 [facility]iol[facility] -[facility] [employer] Work Phone: Comment on above: Note new reference r keyanna as of 12/29/2018. Target ACT range will vary based on the patient population, clinical status, and surgical intervention occurring. Inhaled oxygen concentration 100 % [facility] [employer] Work Phone: 384 {SECONDS} above high threshold 96 - 152 [facility] [employer] Work Phone: Comment on above: Note new reference r keyanna as of 12/29/2018. Target ACT range will vary based on the patient population, clinical status, and surgical intervention occurring. Inhaled oxygen concentration 80 % [facility] [employer] Work Phone: Inhaled oxygen concentration 80 % [facility] [employer] Work Phone: Inhaled oxygen concentration 85 % [facility] [employer] Work Phone: 406 {SECONDS} above high threshold 96 - 152 [facility] [employer] Work Phone: Comment on above: Note new reference r keyanna as of 12/29/2018. Target ACT range will vary based on the patient population, clinical status, and surgical intervention occurring. Inhaled oxygen concentration 80 % [facility] [employer] Work Phone: [phone] {SECONDS} above high threshold 96 - 152 [facility] [employer] Work Phone: Comment on above: Note new reference r keyanna as of 12/29/2018. Target ACT range will vary based on the patient population, clinical status, and surgical intervention occurring. Inhaled oxygen concentration 80 % [facility] [employer] Work Phone: [phone] {SECONDS} above high threshold 96 - 152 [facility] [employer] Work Phone: Comment on above: Note new reference r keyanna as of 12/29/2018. Target ACT range will vary based on the patient population, clinical status, and surgical intervention occurring. Inhaled oxygen concentration 80 % [facility] [employer] Work Phone: Inhaled oxygen concentration 80 % [facility] [employer] Work Phone: 446 {SECONDS} above high threshold 96 - 152 [facility] [employer] Work Phone: Comment on above: Note new reference r keyanna as of 12/29/2018. Target ACT range will vary based on the patient population, clinical status, and surgical intervention occurring. Inhaled oxygen concentration 70 % [facility] [employer] Work Phone: 95 {SECONDS} below low threshold 96 - 152 [facility] [employer] Work Phone: Comment on above: Note new reference r keyanna as of 12/29/2018. Target ACT range will vary based on the patient population, clinical status, and surgical intervention occurring. Inhaled oxygen concentration 100 % [facility] [employer] Work Phone: Plasmaon 06-04-2022 Plasma ORDER RECD [facility] [employer] Work Phone: Radiologyon 06-04-2022 XR Chest Single view Normal [facility] ardiology -[facility] [employer] Work Phone: Renal Function Panelon 06-04 Albumin BCP dye [Mass/Vol] 2.8 g/dL below low threshold 3.4 - 5.0 [facility] [employer] Work Phone: Calcium [Mass/Vol] 9.3 mg/dL 8.6 - 10.6 [facility] -[facility] [employer] Work Phone: Chloride [Moles/Vol] 108 mmol/L above high threshold 98 - 107 [facility] [employer] Work Phone: CO2 [Moles/Vol] 23 mmol/L 21 - 32 [facility]-Cardio logy -[facility] [employer] Work Phone: Creatinine [Mass/Vol] 0.92 mg/dL See Below [facility] Work Phone: Comment on above: Reference Range: 0.5 0 - 1.30 Glucose [Mass/Vol] 111 mg/dL above high threshold 74 - 99 [facility] [employer] Work Phone: Phosphate [Mass/Vol] 2.9 mg/dL 2.5 - 4.9 [facility] ardiology [employer] Work Phone: Comment on above: The performance deepthi acteristics of phosphorus testing in heparinized plasma have been validated by the individual laboratory site where testing is performed. Testing on heparinized plasma is not approved by the FDA; however, such approval is not necessary. Potassium [Moles/Vol] 3.7 mmol/L 3.5 - 5.3 [facility] [employer] Work Phone: Sodium [Moles/Vol] 142 mmol/L 136 - 145 [facility] -[employer] Work Phone: Urea nitrogen [Mass/Vol] 8 mg/dL 6 - 23 [facility] Work Phone: Renal Function Panel 84 {mL/min/1.73m2} >90 [facility] [employer] Work Phone: Comment on above: CALCULATIONS OF GRACE MATED GFR ARE PERFORMED USING THE 2020 CKD-EPI STUDY REFIT EQUATION WITHOUT THE RACE VARIABLE FOR THE IDMS-TRACEABLE CREATININE METHODS.https://jasn.asnjournals.org/content/early/A SN.6631285547 Renal Function Panel 15 mmol/L 10 - 20 MG-[facility] ardiology [employer] Work Phone: Vital signson 06-04-2022 Oxygen saturation in Venous blood 92 % above high threshold 45 - 75 [facility] [employer] Work Phone: Abstracton 06-03-2022 Abstract [id number] Yariel Arce Rose Mary 1940 M Date Provider Department Center 06/03/2022 [facility]DA[facility] No family history on file Normal [facility] Complete Blood Count + Diffe rentialon 06-03-2022 Hematocrit (Bld) [Volume fraction] 38.0 % below low threshold See Below [facility] [employer] Work Phone: Comment on above: Reference Range: 41. 0 - 52.0 Hemoglobin (Bld) [Mass/Vol] 12.0 g/dL below low threshold See Below [facility] [employer] Work Phone: Comment on above: Reference Range: 13. 5 - 17.5 Platelets (Bld) [#/Vol] 163 10*3/uL 150 - 450 [facility] [employer] Work Phone: RBC (Bld) [#/Vol] 4.73 {x10E12/L} See Below [facility] [employer] Work Phone: Comment on above: Reference Range: 4.5 0 - 5.90 Complete Blood Count + Differential 21.4 % See Below [facility] [employer] Work Phone: Comment on above: Reference Range: 13. 0 - 44.0 Complete Blood Count + Differential 0.4 % 0.0 - 2.0 [facility] [employer] Work Phone: Comment on above: Immature Granulocyte Count (IG) includes promyelocytes, myelocytes and metamyelocytes but does not include bands. Percent differential counts (%) should be interpreted in the context of the absolute cell counts (cells/L). Complete Blood Count + Differential 64.9 % See Below [facility] [employer] Work Phone: Comment on above: Reference Range: 40. 0 - 80.0 Complete Blood Count + Differential 16.6 % above high threshold See Below [facility] [employer] Work Phone: Comment on above: Reference Range: 11. 5 - 14.5 Complete Blood Count + Differential 31.6 g/dL below low threshold See Below [facility] [employer] Work Phone: Comment on above: Reference Range: 32. 0 - 36.0 Complete Blood Count + Differential 80 fL 80 - 100 [facility] [employer] Work Phone: Complete Blood Count + Differential 0.0 {/100_WBC} 0.0-0.0 [facility] [employer] Work Phone: Complete Blood Count + Differential 5.0 {x10E9/L} 4.4 - 11.3 [facility] [employer] Work Phone: Complete Blood Count + Differential 0.02 {x10E9/L} See Below [facility] [employer] Work Phone: Comment on above: Reference Range: 0.0 0 - 0.10 Complete Blood Count + Differential 0.15 {x10E9/L} See Below [facility] [employer] Work Phone: Comment on above: Reference Range: 0.0 0 - 0.40 Complete Blood Count + Differential 0.50 {x10E9/L} See Below [facility] [employer] Work Phone: Comment on above: Reference Range: 0.0 5 - 0.80 Complete Blood Count + Differential 1.08 {x10E9/L} See Below [facility] [employer] Work Phone: Comment on above: Reference Range: 0.8 0 - 3.00 Complete Blood Count + Differential 3.27 {x10E9/L} See Below [facility] Work Phone: Comment on above: Reference Range: 1.6 0 - 5.50 Complete Blood Count + Differential 3.0 % 0.0 - 6.0 [facility] [employer] Work Phone: Complete Blood Count + Differential 9.9 % 2.0 - 10.0 [facility] [employer] Work Phone: Heparin assay, UFHon 022 Heparin unfractionated Chromogenic method Qn (PPP) 0.2 {IU/mL} [facility] [employer] Work Phone: Comment on above: The therapeutic refe rence range for UFH may be either 0.3-0.6 IU/mL or 0.3-0.7 IU/mL based on the clinical setting for anticoagulant therapy and the associated nomogram used. For heparin dosing guidelines based on clinical scenario and Heparin Assay results, please refer to local Pharmacy and the [facility] Guidelines for Anticoagulation therapy available on the [facility] intranet at:[email or web address] Heparin unfractionated Chromogenic method Qn (PPP) 0.2 {IU/mL} [facility] Work Phone: Comment on above: The therapeutic refe rence range for UFH may be either 0.3-0.6 IU/mL or 0.3-0.7 IU/mL based on the clinical setting for anticoagulant therapy and the associated nomogram used. For heparin dosing guidelines based on clinical scenario and Heparin Assay results, please refer to local Pharmacy and the [facility] Guidelines for Anticoagulation therapy available on the [facility] intranet at:[email or web address] Laboratory - Blood bankon ABO group Nom (Bld) A MG-Ca rdiology -[facility] Work Phone: Blood group antibody investigation (P/RBC) [Interp] ANTI-LITTLE E [facility] [employer] Work Phone: Blood group antibody screen Ql Positive [facility] [employer] Work Phone: Rh immune globulin screen (Bld) [Interp] Positive [facility]iol [facility] [employer] Work Phone: ABO group Nom (Bld) Canceled MG-Ca rdiology -[facility] [employer] Work Phone: Blood group antibody screen Ql Canceled [facility] [employer] Work Phone: Rh immune globulin screen (Bld) [Interp] Canceled [facility]iol [facility] -[facility] [employer] Work Phone: Laboratory - Coagulationon 0 06-03-2022 aPTT Coag (PPP) [Time] 51 s above hig h threshold 26 - 39 [facility] [employer] Work Phone: Comment on above: THE APTT IS NO LONGE R USED FOR MONITORING UNFRACTIONATED HEPARIN THERAPY. FOR MONITORING HEPARIN THERAPY, USE THE HEPARIN ASSAY. INR Coag (PPP) [Relative time] 1.0 {INR} 0.9 - 1.1 [facility] [employer] Work Phone: PT Coag (PPP) [Time] 12.0 s 9.8 - 13.4 [facility] ardiology -[facility] Work Phone: Magnesium, Serumon Magnesium [Mass/Vol] 1.76 mg/dL See Below [facility] ardiology -[facility] Work Phone: Comment on above: Reference Range: 1.6 0 - 2.40 No Panel Informationon 06-03 ORDER RECD [facility] [employer] Work Phone: Comment on above: If this patient is R h Negative and if the Plateletproduct transfused is Rh Positive, review the useof WinRho Prophylaxis for this patient. Path Review Immunohematology on 06-03-2022 Path Review Immunohematology Canceled [facility] [employer] Work Phone: Comment on above: By her/his signature above, the Pathologist listed as making the final interpretation certifies that she/he has personally reviewed this case. Renal Function Panelon 06-03 Albumin BCP dye [Mass/Vol] 3.6 g/dL 3.4 - 5.0 [facility] [employer] Work Phone: Calcium [Mass/Vol] 8.8 mg/dL 8.6 - 10.6 [facility] diology -[facility] [employer] Work Phone: Chloride [Moles/Vol] 104 mmol/L 98 - 107 MG-[facility] ardiology -[employer] Work Phone: CO2 [Moles/Vol] 23 mmol/L 21 - 32 MG-Cardio logy -[employer] Work Phone: Creatinine [Mass/Vol] 1.02 mg/dL See Below [facility] -[facility] [employer] Work Phone: Comment on above: Reference Range: 0.5 0 - 1.30 Glucose [Mass/Vol] 98 mg/dL 74 - 99 [facility] diology -[employer] Work Phone: Phosphate [Mass/Vol] 4.2 mg/dL 2.5 - 4.9 MG-C Thubrikar A[facility] [employer] Work Phone: Comment on above: The performance deepthi acteristics of phosphorus testing in heparinized plasma have been validated by the individual laboratory site where testing is performed. Testing on heparinized plasma is not approved by the FDA; however, such approval is not necessary. Potassium [Moles/Vol] 4.0 mmol/L 3.5 - 5.3 [facility] [employer] Work Phone: Sodium [Moles/Vol] 137 mmol/L 136 - 145 [facility] diology -[facility] [employer] Work Phone: Urea nitrogen [Mass/Vol] 10 mg/dL 6 - 23 [facility] [employer] Work Phone: Renal Function Panel 74 {mL/min/1.73m2} >90 [facility] [employer] Work Phone: Comment on above: CALCULATIONS OF GRACE MATED GFR ARE PERFORMED USING THE 2020 CKD-EPI STUDY REFIT EQUATION WITHOUT THE RACE VARIABLE FOR THE IDMS-TRACEABLE CREATININE METHODS.https://jasn.asnjournals.org/content//A SN.[email or web address] Renal Function Panel 14 mmol/L 10 - 20 MG[facility] ardiology -[facility] Work Phone: Heparin assay, UFHon 022 Heparin unfractionated Chromogenic method Qn (PPP) 0.3 {IU/mL} [facility] [employer] Work Phone: Comment on above: The therapeutic refe rence range for UFH may be either 0.3-0.6 IU/mL or 0.3-0.7 IU/mL based on the clinical setting for anticoagulant therapy and the associated nomogram used. For heparin dosing guidelines based on clinical scenario and Heparin Assay results, please refer to local Pharmacy and the [facility] Guidelines for Anticoagulation therapy available on the [facility] intranet at:[email or web address] Laboratory - Blood bankon ABO group Nom (Bld) Canceled [facility]-Ca rdiology -[facility] Work Phone: Blood group antibody screen Ql Canceled [facility] [employer] Work Phone: Rh immune globulin screen (Bld) [Interp] Canceled [facility]Cardiol ogy -[facility] [employer] Work Phone: ABO group Nom (Bld) Canceled MG-Ca rdiology -[facility] Work Phone: Blood group antibody screen Ql Canceled [facility] [employer] Work Phone: Rh immune globulin screen (Bld) [Interp] Canceled [facility]Cardiol ogy -[facility] [employer] Work Phone: Laboratory - Hematology and Cell countson 06-02-2022 Hematocrit (Bld) [Volume fraction] 32.2 % below low threshold See Below [facility] [employer] Work Phone: Comment on above: Reference Range: 41. 0 - 52.0 Hemoglobin (Bld) [Mass/Vol] 10.1 g/dL below low threshold See Below [facility] [employer] Work Phone: Comment on above: Reference Range: 13. 5 - 17.5 Platelets (Bld) [#/Vol] 137 10*3/uL below low threshold 150 - 450 [facility] [employer] Work Phone: RBC (Bld) [#/Vol] 3.91 {x10E12/L} below low threshold See Below [facility] [employer] Work Phone: Comment on above: Reference Range: 4.5 0 - 5.90 Hematocrit (Bld) [Volume fraction] Canceled [facility] [employer] Work Phone: Hemoglobin (Bld) [Mass/Vol] Canceled [facility] [employer] Work Phone: Platelets (Bld) [#/Vol] Canceled [facility] [employer] Work Phone: RBC (Bld) [#/Vol] Canceled [facility]Card iology -[facility] [employer] Work Phone: Magnesium, Serumon 2 Magnesium [Mass/Vol] Canceled MG-C ardiology -[facility] [employer] Work Phone: No Panel Informationon 06-02 100 mg/dL above high threshold 74 - 99 [facility] [employer] Work Phone: 103 mg/dL above high threshold 74 - 99 [facility] [employer] Work Phone: 87 mg/dL 74 - 99 [facility] [employer] Work Phone: 16.4 % above high threshold See Below [facility] [employer] Work Phone: Comment on above: Reference Range: 11. 5 - 14.5 31.4 g/dL below low threshold See Below [facility] [employer] Work Phone: Comment on above: Reference Range: 32. 0 - 36.0 82 fL 80 - 100 [facility] [employer] Work Phone: 0.0 {/100_WBC} 0.0-0.0 [facility]Cardiol ogy -[facility] [employer] Work Phone: 4.4 {x10E9/L} 4.4 - 11.3 MG-Cardiolo gy -[facility] [employer] Work Phone: Renal Function Panelon 06-02 Albumin BCP dye [Mass/Vol] 2.8 g/dL below low threshold 3.4 - 5.0 [facility] [employer] Work Phone: Calcium [Mass/Vol] 8.1 mg/dL below low threshold 8.6 - 10.6 [facility] [employer] Work Phone: Chloride [Moles/Vol] 107 mmol/L 98 - 107 MG-C ardiology -[facility] [employer] Work Phone: CO2 [Moles/Vol] 24 mmol/L 21 - 32 MG-Cardio logy -[facility] [employer] Work Phone: Creatinine [Mass/Vol] 0.93 mg/dL See Below [facility] -[facility] [employer] Work Phone: Comment on above: Reference Range: 0.5 0 - 1.30 Glucose [Mass/Vol] 82 mg/dL 74 - 99 MG-Car diology -[facility] [employer] Work Phone: Phosphate [Mass/Vol] 5.0 mg/dL above high threshold 2.5 - 4.9 [facility] [employer] Work Phone: Comment on above: The performance deepthi acteristics of phosphorus testing in heparinized plasma have been validated by the individual laboratory site where testing is performed. Testing on heparinized plasma is not approved by the FDA; however, such approval is not necessary. Potassium [Moles/Vol] 4.0 mmol/L 3.5 - 5.3 [facility] -[facility] [employer] Work Phone: [phone] Sodium [Moles/Vol] 137 mmol/L 136 - 145 MG-Car diology -[facility] [employer] Work Phone: [phone] Urea nitrogen [Mass/Vol] 11 mg/dL 6 - 23 [facility] [employer] Work Phone: [phone] Renal Function Panel 83 {mL/min/1.73m2} >90 [facility] -[facility] [employer] Work Phone: [phone] Comment on above: CALCULATIONS OF GRACE MATED GFR ARE PERFORMED USING THE 2020 CKD-EPI STUDY REFIT EQUATION WITHOUT THE RACE VARIABLE FOR THE IDMS-TRACEABLE CREATININE METHODS.https://jasn.asnjournals.org/content//A SN.[email or web address] Renal Function Panel 10 mmol/L 10 - 20 MG-C ardiology -[employer] Work Phone: Albumin BCP dye [Mass/Vol] Canceled [facility] -[facility] [employer] Work Phone: [phone] Calcium [Mass/Vol] Canceled [facility] -[employer] Work Phone: [phone] Chloride [Moles/Vol] Canceled MG-C ardiology -[facility] Work Phone: [phone] CO2 [Moles/Vol] Canceled MG-Cardio logy -[facility] [employer] Work Phone: [phone] Creatinine [Mass/Vol] Canceled MG- Cardiology -[facility] [employer] Work Phone: [phone] Glucose [Mass/Vol] Canceled [facility]-Car diology -[facility] [employer] Work Phone: [phone] Phosphate [Mass/Vol] Canceled MG-C ardiology -[employer] Work Phone: Comment on above: The performance deepthi acteristics of phosphorus testing in heparinized plasma have been validated by the individual laboratory site where testing is performed. Testing on heparinized plasma is not approved by the FDA; however, such approval is not necessary. Potassium [Moles/Vol] Canceled MG- Cardiology -[facility] Work Phone: Sodium [Moles/Vol] Canceled [facility] di[facility] -[facility] [employer] Work Phone: Urea nitrogen [Mass/Vol] Canceled [facility] Work Phone: Renal Function Panel Canceled MG-C ardiology -[facility] Work Phone: Comment on above: CALCULATIONS OF GRACE MATED GFR ARE PERFORMED USING THE 2020 CKD-EPI STUDY REFIT EQUATION WITHOUT THE RACE VARIABLE FOR THE IDMS-TRACEABLE CREATININE METHODS.https://jasn.asnjournals.org/content/early//A SN.0067419721 Calcium, Ionized Levelon Calcium, Ionized Level 1.10 mmol/L See Below M G-Cardiology -[facility] Work Phone: Comment on above: Reference Range: 1.1 0 - 1.33 The performance characteristics of ionized calcium tested in heparinized plasma or serum have been validated by the individual laboratory site where testing is performed. Testing on heparinized plasma or serum is not approved by the FDA; however, such approval is not necessary. Coronavirus 2019 RNA by PCR, Screening Asymptomticon 06-01-2022 Coronavirus 2019 RNA by PCR, Screening Asymptomtic Canceled [facility]-Cardiology -[facility] Work Phone: Comment on above: SOURCE: Nasal, Nasop haryngeal.This test has received FDA Emergency Use Authorization (EUA) and has been verified by [facility] ([facility]). This test is only authorized for the duration of time that circumstances exist to justify the authorization of the emergency use of in vitro diagnostic tests for the detection of SARS-CoV-2 virus and/or diagnosis of COVID-19 infection under section 564(b)(1) of the Act, 21 U.S.C. 360bbb-3(b)(1), unless the authorization is terminated or revoked sooner. [facility] is certified under CLIA-88 as qualified to perform high complexity testing. Testing is performed in the [facility] located at [address] [place] [address].SARS-CoV-2/Flu/RSV Multiplex Test: Fact sheet for providers: https://www.fda.gov/media/619321/downloadFact sheet for patients: https://www.fda.gov/media/855131/download Coronavirus 2019 RNA by PCR, Symptomaticon 06-01-2022 Coronavirus 2019 RNA by PCR, Symptomatic Not detected Normal See Below MG-Cardiolog y -[facility] [employer] Work Phone: Comment on above: SOURCE: Nasal, Nasop haryngealReference Range: Not Detected.This assay is designed to detect the ORF1ab and/or S genes of SARS-CoV-2 via nucleic acid amplification. A Not Detected result does not preclude 2019-nCoV infection since the adequacy of sample collection and/or low viral burden may result in presence of viral nucleic acids below the clinical sensitivity of this test method. Fact sheet for providers: www.fda.gov/media/917858/downloadFact sheet for patients: www.fda.gov/media/616916/downloadThis test has received FDA Emergency Use Authorization (EUA) and has been verified by [facility] ([facility]). This test is only authorized for the duration of time that circumstances exist to justify the authorization of the emergency use of in vitro diagnostic tests for the detection of SARS-CoV-2 virus and/or diagnosis of COVID-19 infection under section 564(b)(1) of the Act, 21 U.S.C. 360bbb-3(b)(1), unless the authorization is terminated or revoked sooner. [facility] is certified under CLIA-88 as qualified to perform high complexity testing. Testing is performed in the [facility] laboratories located at [address] [place] [address]. Heparin assay, UFHon 022 Heparin unfractionated Chromogenic method Qn (PPP) 0.3 {IU/mL} MG-Cardiology [employer] Work Phone: Comment on above: The therapeutic refe rence range for UFH may be either 0.3-0.6 IU/mL or 0.3-0.7 IU/mL based on the clinical setting for anticoagulant therapy and the associated nomogram used. For heparin dosing guidelines based on clinical scenario and Heparin Assay results, please refer to local Pharmacy and the [facility] Guidelines for Anticoagulation therapy available on the [facility] intranet at:[email or web address]_Guidelines_for_[email or web address].aspx Laboratory - Chemistry and C hemistry - challengeon 06-01-2022 Base excess Calc (Bld) [Moles/Vol] -1.5000 mmol/L -2.0 - 3.0 MG-Cardiology [employer] Work Phone: Carboxyhemoglobin (BldA) [Mass fraction] 1.6 % Abnormal MG-Cardio logy -[employer] Work Phone: Comment on above: REF VALUESNONSMOKERS 0.5-1.5%SMOKERS 0.5-10.0% CO2 (Bld) [Partial pressure] 36 mm[Hg] below low threshold 38 - 42 MG-Cardiology [employer] Work Phone: HCO3 (Bld) [Moles/Vol] 22.8 mmol/L See Below M G-Cardiology [employer] Work Phone: Comment on above: Reference Range: 22. 0 - 26.0 Methemoglobin (BldA) [Mass fraction] 0.6 % 0.0 - 1.5 MG-Cardiology -[facility] [employer] Work Phone: Oxygen (Bld) [Partial pressure] 69 mm[Hg] below low threshold 85 - 95 MG-Cardiology [employer] Work Phone: Oxyhemoglobin (BldA) [Mass fraction] 91.7 % below low threshold See Below MG-Cardiology [employer] Work Phone: Comment on above: Reference Range: 94. 0 - 98.0 pH (Bld) 7.41 [pH] See Below MG-Cardiology -[facility] [employer] Work Phone: Comment on above: Reference Range: 7.3 8 - 7.42 Laboratory - Hematology and Cell countson 06-01-2022 Deoxyhemoglobin (BldA) [Mass fraction] 6.0 % above high threshold 0.0 - 5.0 MG-Cardiology -[facility] [employer] Work Phone: Hemoglobin (Bld) [Mass/Vol] 11.5 g/dL below low threshold See Below [facility]Cardiology -[facility] Work Phone: Comment on above: Reference Range: 13. 5 - 17.5 Hematocrit (Bld) [Volume fraction] 31.3 % below low threshold See Below [facility]-Cardiology -[facility] [employer] Work Phone: Comment on above: Reference Range: 41. 0 - 52.0 Hemoglobin (Bld) [Mass/Vol] 10.0 g/dL below low threshold See Below [facility]-Cardiology -[facility] [employer] Work Phone: Comment on above: Reference Range: 13. 5 - 17.5 Platelets (Bld) [#/Vol] 131 10*3/uL below low threshold 150 - 450 MGArgil Data CorpCardiology [employer] Work Phone: RBC (Bld) [#/Vol] 3.95 {x10E12/L} below low threshold See Below [facility]-Cardiology -[facility] [employer] Work Phone: Comment on above: Reference Range: 4.5 0 - 5.90 Magnesium, Serumon Magnesium [Mass/Vol] 1.86 mg/dL See Below MG-C ardiology -[facility] [employer] Work Phone: Comment on above: Reference Range: 1.6 0 - 2.40 No Panel Informationon 06-01 16.0 % above high threshold See Below [facility]-Cardiology -[facility] [employer] Work Phone: Comment on above: Reference Range: 11. 5 - 14.5 31.9 g/dL below low threshold See Below MG-Cardiology -[facility] [employer] Work Phone: Comment on above: Reference Range: 32. 0 - 36.0 79 fL below low threshold 80 - 100 MG-Cardiology -[facility] [employer] Work Phone: 0.0 {/100_WBC} 0.0-0.0 MG-Cardiol ogy -[facility] [employer] Work Phone: 4.7 {x10E9/L} 4.4 - 11.3 MG-Cardiolo gy -[facility] [employer] Work Phone: Plasmaon 06-01-2022 Plasma ORDER RECD MG-Cardiology -[facility] Work Phone: Comment on above: If this patient is R h Negative and if the Plateletproduct transfused is Rh Positive, review the useof WinRho Prophylaxis for this patient. Renal Function Panelon 06-01 Albumin BCP dye [Mass/Vol] 2.8 g/dL below low threshold 3.4 - 5.0 MG-Cardiology -[facility] Work Phone: Calcium [Mass/Vol] 8.2 mg/dL below low threshold 8.6 - 10.6 MG-Cardiology -[facility] [employer] Work Phone: Chloride [Moles/Vol] 104 mmol/L 98 - 107 MG-C ardiology -[employer] Work Phone: CO2 [Moles/Vol] 25 mmol/L 21 - 32 MG-Cardio logy -[facility] [employer] Work Phone: Creatinine [Mass/Vol] 0.99 mg/dL See Below MG- Cardiology -[facility] [employer] Work Phone: Comment on above: Reference Range: 0.5 0 - 1.30 Glucose [Mass/Vol] 90 mg/dL 74 - 99 MG-Car diology -[employer] Work Phone: Phosphate [Mass/Vol] 5.1 mg/dL above high threshold 2.5 - 4.9 MG-Cardiology -[facility] Work Phone: Comment on above: The performance deepthi acteristics of phosphorus testing in heparinized plasma have been validated by the individual laboratory site where testing is performed. Testing on heparinized plasma is not approved by the FDA; however, such approval is not necessary. Potassium [Moles/Vol] 4.2 mmol/L 3.5 - 5.3 MG- Cardiology -[facility] [employer] Work Phone: Sodium [Moles/Vol] 136 mmol/L 136 - 145 MG-Car diology -[facility] Work Phone: Urea nitrogen [Mass/Vol] 14 mg/dL 6 - 23 MG-Cardiology [facility] Work Phone: Renal Function Panel 77 {mL/min/1.73m2} >90 MG-[facility] [employer] [facility] Work Phone: Comment on above: CALCULATIONS OF GRACE MATED GFR ARE PERFORMED USING THE 2020 CKD-EPI STUDY REFIT EQUATION WITHOUT THE RACE VARIABLE FOR THE IDMS-TRACEABLE CREATININE METHODS.https://jasn.asnjournals.org/content//A SN.[email or web address] Renal Function Panel 11 mmol/L 10 - 20 MG-C ardiology -[facility] Work Phone: [facility] Carotid Artery Dupl ex Ultrasoundon 06-01-2022 US.doppler Carotid arteries [facility] Work Phone: Heparin assay, UFHon 022 Heparin unfractionated Chromogenic method Qn (PPP) 0.3 {IU/mL} [facility] Work Phone: Comment on above: The therapeutic refe rence range for UFH may be either 0.3-0.6 IU/mL or 0.3-0.7 IU/mL based on the clinical setting for anticoagulant therapy and the associated nomogram used. For heparin dosing guidelines based on clinical scenario and Heparin Assay results, please refer to local Pharmacy and the [facility] Guidelines for Anticoagulation therapy available on the [facility] intranet at:[email or web address]_Guidelines_[email or web address] Laboratory - Blood bankon ABO group Nom (Bld) A MG-Ca rdiology -[facility] [employer] Work Phone: Blood group antibody investigation (P/RBC) [Interp] See Comment [facility]-Cardiology -[facility] Work Phone: Comment on above: [facility] IRL: Anti-l ittle e Blood group antibody screen Ql Positive MG-Cardiology -[facility] Work Phone: Rh immune globulin screen (Bld) [Interp] Positive MG-Cardiol ogy -[facility] [employer] Work Phone: ABO group Nom (Bld) A MG-Ca rdiology -[facility] [employer] Work Phone: Comment on above: REQUESTED FROM NICOLE MOHAMUD, 05/31/2022 15:10 Blood group antibody investigation (P/RBC) [Interp] Inconclusive [facility]-Cardiology -[facility] [employer] Work Phone: Blood group antibody screen Ql Positive [facility]Cardiology -[facility] [employer] Work Phone: Comment on above: Sendout to reference lab required. 28 mL EDTA and 10 mL RED Top blood specimen needed within the 3 days prior to transfusion.REQUESTED FROM YEHUDA MOHAMUD, 05/31/2022 15:10 Rh immune globulin screen (Bld) [Interp] Positive MG-Cardiol ogy -[facility] [employer] Work Phone: Comment on above: REQUESTED FROM NICOLE MOHAMUD, 05/31/2022 15:10 Laboratory - Hematology and Cell countson 05-31-2022 Hematocrit (Bld) [Volume fraction] 29.7 % below low threshold See Below [facility]-Cardiology -[facility] [employer] Work Phone: Comment on above: Reference Range: 41. 0 - 52.0 Hemoglobin (Bld) [Mass/Vol] 9.5 g/dL below low threshold See Below MG-Cardiology -[facility] [employer] Work Phone: Comment on above: Reference Range: 13. 5 - 17.5 Platelets (Bld) [#/Vol] 145 10*3/uL below low threshold 150 - 450 MG-Cardiology -[facility] Work Phone: [phone] RBC (Bld) [#/Vol] 3.73 {x10E12/L} below low threshold See Below [facility]-Cardiology -[facility] [employer] Work Phone: Comment on above: Reference Range: 4.5 0 - 5.90 Hematocrit (Bld) [Volume fraction] 25.1 % below low threshold See Below [facility]Cardiology -[facility] [employer] Work Phone: [phone] Comment on above: Reference Range: 41. 0 - 52.0 Hemoglobin (Bld) [Mass/Vol] 7.9 g/dL below low threshold See Below [facility]-Cardiology -[facility] [employer] Work Phone: [phone] Comment on above: Reference Range: 13. 5 - 17.5 Platelets (Bld) [#/Vol] 138 10*3/uL below low threshold 150 - 450 MG-Cardiology -[facility] [employer] Work Phone: [phone] RBC (Bld) [#/Vol] 3.22 {x10E12/L} below low threshold See Below MG-Cardiology -[facility] [employer] Work Phone: Comment on above: Reference Range: 4.5 0 - 5.90 Hematocrit (Bld) [Volume fraction] 22.7 % below low threshold See Below MG-Cardiology -[facility] [employer] Work Phone: Comment on above: Reference Range: 41. 0 - 52.0 Hemoglobin (Bld) [Mass/Vol] 6.8 g/dL below low threshold See Below MG-Cardiology -[facility] [employer] Work Phone: Comment on above: Reference Range: 13. 5 - 17.5 Platelets (Bld) [#/Vol] 144 10*3/uL below low threshold 150 - 450 MG-Cardiology -[facility] [employer] Work Phone: RBC (Bld) [#/Vol] 2.82 {x10E12/L} below low threshold See Below MG-Cardiology -[facility] [employer] Work Phone: Comment on above: Reference Range: 4.5 0 - 5.90 Magnesium, Serumon Magnesium [Mass/Vol] 1.77 mg/dL See Below MG-C ardiology -[facility] [employer] Work Phone: Comment on above: Reference Range: 1.6 0 - 2.40 No Panel Informationon 05-31 ORDER RECD MG-Cardiology -[facility] [employer] Work Phone: 16.4 % above high threshold See Below MG-Cardiology -[facility] [employer] Work Phone: Comment on above: Reference Range: 11. 5 - 14.5 32.0 g/dL See Below [facility]-Cardiology -[facility] [employer] Work Phone: Comment on above: Reference Range: 32. 0 - 36.0 80 fL 80 - 100 MG-Cardiology -[facility] [employer] Work Phone: 0.0 {/100_WBC} 0.0-0.0 MG-Cardiol ogy -[facility] [employer] Work Phone: 4.4 {x10E9/L} 4.4 - 11.3 MG-Cardiolo gy -[facility] [employer] Work Phone: ORDER RECD MG-Cardiology -[facility] [employer] Work Phone: 16.2 % above high threshold See Below MG-Cardiology -[facility] [employer] Work Phone: Comment on above: Reference Range: 11. 5 - 14.5 31.5 g/dL below low threshold See Below MG-Cardiology -[facility] [employer] Work Phone: Comment on above: Reference Range: 32. 0 - 36.0 78 fL below low threshold 80 - 100 MG-Cardiology -[facility] [employer] Work Phone: 0.0 {/100_WBC} 0.0-0.0 MG-Cardiol ogy -[facility] [employer] Work Phone: 4.0 {x10E9/L} below low threshold 4.4 - 11.3 MG-Cardiology -[facility] [employer] Work Phone: ORDER RECD MG-Cardiology -[facility] [employer] Work Phone: 16.1 % above high threshold See Below MG-Cardiology -[facility] [employer] Work Phone: Comment on above: Reference Range: 11. 5 - 14.5 30.0 g/dL below low threshold See Below MG-Cardiology -[facility] [employer] Work Phone: Comment on above: Reference Range: 32. 0 - 36.0 80 fL 80 - 100 MG-Cardiology -[facility] [employer] Work Phone: 0.0 {/100_WBC} 0.0-0.0 MG-Cardiol ogy -[facility] [employer] Work Phone: 4.0 {x10E9/L} below low threshold 4.4 - 11.3 MG-Cardiology -[facility] [employer] Work Phone: Path Review Immunohematology on 05-31-2022 Path Review Immunohematology Canceled MG-Cardiology -[facility] Work Phone: Comment on above: By her/his signature above, the Pathologist listed as making the final interpretation certifies that she/he has personally reviewed this case. Path Review Immunohematology BAILEY MG-Cardiology -[facility] [employer] Work Phone: Comment on above: By her/his signature above, the Pathologist listed as making the final interpretation certifies that she/he has personally reviewed this case. ANTIBODY DETECTION SCREEN IS POSITIVE.ANTIBODY IDENTIFICATION PANEL WAS PERFORMED.THE AUTOCONTROL IS NEGATIVE.ADDITIONAL SPECIMEN REQUIRED TO COMPLETE EVALUATION. Renal Function Panelon 05-31 Albumin BCP dye [Mass/Vol] 2.6 g/dL below low threshold 3.4 - 5.0 MG-Cardiology -[facility] Work Phone: Calcium [Mass/Vol] 7.9 mg/dL below low threshold 8.6 - 10.6 MG-Cardiology -[facility] [employer] Work Phone: Chloride [Moles/Vol] 104 mmol/L 98 - 107 MG-C ardiology -[facility] [employer] Work Phone: CO2 [Moles/Vol] 25 mmol/L 21 - 32 MG-Cardio logy -[facility] [employer] Work Phone: Creatinine [Mass/Vol] 1.05 mg/dL See Below MG- Cardiology -[facility] [employer] Work Phone: Comment on above: Reference Range: 0.5 0 - 1.30 Glucose [Mass/Vol] 93 mg/dL 74 - 99 MG-Car diology -[employer] Work Phone: Phosphate [Mass/Vol] 4.3 mg/dL 2.5 - 4.9 MG-C ardiology -[employer] Work Phone: Comment on above: The performance deepthi acteristics of phosphorus testing in heparinized plasma have been validated by the individual laboratory site where testing is performed. Testing on heparinized plasma is not approved by the FDA; however, such approval is not necessary. Potassium [Moles/Vol] 4.0 mmol/L 3.5 - 5.3 MG- Cardiology -[facility] [employer] Work Phone: Sodium [Moles/Vol] 135 mmol/L below low threshold 136 - 145 MG-Cardiology -[facility] [employer] Work Phone: Urea nitrogen [Mass/Vol] 16 mg/dL 6 - 23 MG-Cardiology -[facility] [employer] Work Phone: Renal Function Panel 72 {mL/min/1.73m2} >90 MG[facility]Cardiology [facility] Work Phone: Comment on above: CALCULATIONS OF GRACE MATED GFR ARE PERFORMED USING THE 2020 CKD-EPI STUDY REFIT EQUATION WITHOUT THE RACE VARIABLE FOR THE IDMS-TRACEABLE CREATININE METHODS.https://jasn.asnjournals.org/content//A SN.[email or web address] Renal Function Panel 10 mmol/L 10 - 20 MG-C ardiology -[facility] Work Phone: Complete Blood Count + Diffe rentialon 05-30-2022 Hematocrit (Bld) [Volume fraction] 27.3 % below low threshold See Below -Cardiology -[facility] [employer] Work Phone: Comment on above: Reference Range: 41. 0 - 52.0 Hemoglobin (Bld) [Mass/Vol] 8.2 g/dL below low threshold See Below [facility] Work Phone: Comment on above: Reference Range: 13. 5 - 17.5 Platelets (Bld) [#/Vol] 179 10*3/uL 150 - 450 MG-Cardiology [facility] Work Phone: RBC (Bld) [#/Vol] 3.35 {x10E12/L} below low threshold See Below MGCardiology [facility] [employer] Work Phone: Comment on above: Reference Range: 4.5 0 - 5.90 Complete Blood Count + Differential 0.01 {x10E9/L} See Below MG-Cardiology -[facility] [employer] Work Phone: Comment on above: Reference Range: 0.0 0 - 0.10 Complete Blood Count + Differential 0.21 {x10E9/L} See Below MG-Cardiology -[facility] [employer] Work Phone: Comment on above: Reference Range: 0.0 0 - 0.40 Complete Blood Count + Differential 0.71 {x10E9/L} See Below MG-Cardiology -[facility] [employer] Work Phone: Comment on above: Reference Range: 0.0 5 - 0.80 Complete Blood Count + Differential 1.35 {x10E9/L} See Below [facility] [employer] Work Phone: Comment on above: Reference Range: 0.8 0 - 3.00 Complete Blood Count + Differential 2.97 {x10E9/L} See Below [facility] [employer] Work Phone: Comment on above: Reference Range: 1.6 0 - 5.50 Complete Blood Count + Differential 0.2 % 0.0 - 0.9 [employer] Work Phone: Comment on above: Immature Granulocyte Count (IG) includes promyelocytes, myelocytes and metamyelocytes but does not include bands. Percent differential counts (%) should be interpreted in the context of the absolute cell counts (cells/L). Complete Blood Count + Differential 4.0 % 0.0 - 6.0 [employer] Work Phone: Complete Blood Count + Differential 13.5 % 2.0 - 10.0 [employer] Work Phone: Complete Blood Count + Differential 25.7 % See Below [employer] Work Phone: Comment on above: Reference Range: 13. 0 - 44.0 Complete Blood Count + Differential 56.4 % See Below [facility] [employer] Work Phone: Comment on above: Reference Range: 40. 0 - 80.0 Complete Blood Count + Differential 16.3 % above high threshold See Below [facility] [employer] Work Phone: Comment on above: Reference Range: 11. 5 - 14.5 Complete Blood Count + Differential 30.0 g/dL below low threshold See Below [facility] [employer] Work Phone: Comment on above: Reference Range: 32. 0 - 36.0 Complete Blood Count + Differential 81 fL 80 - 100 [facility] [employer] Work Phone: Complete Blood Count + Differential 0.0 {/100_WBC} 0.0-0.0 MG-Cardiology -[facility] Work Phone: Complete Blood Count + Differential 5.3 {x10E9/L} 4.4 - 11.3 MG-Cardiology -[facility] [employer] Work Phone: Heparin assay, UFHon 022 Heparin unfractionated Chromogenic method Qn (PPP) 0.3 {IU/mL} MG-Cardiology -[facility] [employer] Work Phone: Comment on above: The therapeutic refe rence range for UFH may be either 0.3-0.6 IU/mL or 0.3-0.7 IU/mL based on the clinical setting for anticoagulant therapy and the associated nomogram used. For heparin dosing guidelines based on clinical scenario and Heparin Assay results, please refer to local Pharmacy and [facility] Guidelines for Anticoagulation therapy available on the [facility] intranet at:[email or web address]_Guidelines_for_[email or web address] Heparin unfractionated Chromogenic method Qn (PPP) 0.3 {IU/mL} MG-[facility] Work Phone: Comment on above: The therapeutic refe rence range for UFH may be either 0.3-0.6 IU/mL or 0.3-0.7 IU/mL based on the clinical setting for anticoagulant therapy and the associated nomogram used. For heparin dosing guidelines based on clinical scenario and Heparin Assay results, please refer to local Pharmacy and [facility] Guidelines for Anticoagulation therapy available on the [facility] intranet at:[email or web address]_Guidelines_for_Anticoagu.aspx Laboratory - Chemistry and C hemistry - challengeon 05-30-2022 Albumin BCP dye [Mass/Vol] 2.8 g/dL below low threshold 3.4 - 5.0 MG-Cardiology -[facility] [employer] Work Phone: ALP [Catalytic activity/Vol] 59 U/L 33 - 136 MG-Cardiology [facility] Work Phone: ALT With P-5'-P [Catalytic activity/Vol] 11 U/L 10 - 52 MG-Cardiology -[facility] [employer] Work Phone: Comment on above: Patients treated wit h Sulfasalazine may generate falsely decreased results for ALT. AST With P-5'-P [Catalytic activity/Vol] 23 U/L 9 - 39 MG-Cardiology -[facility] [employer] Work Phone: Bilirubin [Mass/Vol] 0.6 mg/dL 0.0 - 1.2 MG-C ardiology -[employer] Work Phone: Calcium [Mass/Vol] 7.8 mg/dL below low threshold 8.6 - 10.6 MG-Cardiology -[facility] [employer] Work Phone: Chloride [Moles/Vol] 107 mmol/L 98 - 107 MG-C ardiology -[employer] Work Phone: [phone] CO2 [Moles/Vol] 25 mmol/L 21 - 32 MG-Cardio logy -[employer] Work Phone: Creatinine [Mass/Vol] 1.06 mg/dL See Below MG- Cardiology -[facility] [employer] Work Phone: Comment on above: Reference Range: 0.5 0 - 1.30 Glucose [Mass/Vol] 91 mg/dL 74 - 99 MG-Car diology -[facility] [employer] Work Phone: Potassium [Moles/Vol] 4.1 mmol/L 3.5 - 5.3 MG- Cardiology -[facility] [employer] Work Phone: Protein [Mass/Vol] 4.8 g/dL below low threshold 6.4 - 8.2 MG-Cardiology -[facility] [employer] Work Phone: Sodium [Moles/Vol] 137 mmol/L 136 - 145 MG-Car diology -[facility] [employer] Work Phone: Urea nitrogen [Mass/Vol] 13 mg/dL 6 - 23 MG-Cardiology -[facility] [employer] Work Phone: Laboratory - Coagulationon 0 05-30-2022 aPTT Coag (PPP) [Time] 52 s above hig h threshold 26 - 39 MG-Cardiology [employer] Work Phone: Comment on above: THE APTT IS NO LONGE R USED FOR MONITORING UNFRACTIONATED HEPARIN THERAPY. FOR MONITORING HEPARIN THERAPY, USE THE HEPARIN ASSAY. INR Coag (PPP) [Relative time] 1.2 {INR} above high threshold 0.9 - 1.1 MG-Cardiology -[facility] [employer] Work Phone: PT Coag (PPP) [Time] 13.9 s above high threshold 9.8 - 13.4 MG-Cardiology [employer] Work Phone: Laboratory - Hematology and Cell countson 05-30-2022 Hematocrit (Bld) [Volume fraction] 24.4 % below low threshold See Below MG-Cardiology [employer] Work Phone: Comment on above: Reference Range: 41. 0 - 52.0 Hemoglobin (Bld) [Mass/Vol] 7.3 g/dL below low threshold See Below [facility]-Cardiology [employer] Work Phone: Comment on above: Reference Range: 13. 5 - 17.5 Platelets (Bld) [#/Vol] 125 10*3/uL below low threshold 150 - 450 MG-Cardiology [employer] Work Phone: RBC (Bld) [#/Vol] 3.09 {x10E12/L} below low threshold See Below [facility]-Cardiology -Admin [employer] Work Phone: Comment on above: Reference Range: 4.5 0 - 5.90 Magnesium, Serumon Magnesium [Mass/Vol] 1.72 mg/dL See Below MG-C ardiology -[employer] Work Phone: Comment on above: Reference Range: 1.6 0 - 2.40 No Panel Informationon 05-30 71 {mL/min/1.73m2} >90 MG-Car diology -[employer] Work Phone: Comment on above: CALCULATIONS OF GRACE MATED GFR ARE PERFORMED USING THE 2020 CKD-EPI STUDY REFIT EQUATION WITHOUT THE RACE VARIABLE FOR THE IDMS-TRACEABLE CREATININE METHODS.https://jasn.asnjournals.org/content//A SN.6853530091 9 mmol/L below low threshold 10 - 20 MG-Cardiology -Admin [employer] Work Phone: 16.6 % above high threshold See Below [facility]-Cardiology -Admin [employer] Work Phone: Comment on above: Reference Range: 11. 5 - 14.5 29.9 g/dL below low threshold See Below [facility]-Cardiology -Admin [employer] Work Phone: Comment on above: Reference Range: 32. 0 - 36.0 79 fL below low threshold 80 - 100 MG-Cardiology -Admin [employer] Work Phone: 0.0 {/100_WBC} 0.0-0.0 MG-Cardiol ogy -Admin [employer] Work Phone: 4.6 {x10E9/L} 4.4 - 11.3 MG-Cardiolo gy -Admin [employer] Work Phone: Ferritin, Serumon 05-29-2022 Ferritin [Mass/Vol] 17 ug/L below low threshold 20 - 300 [facility]-Cardiology -Admin [employer] Work Phone: Heparin assay, UFHon 022 Heparin unfractionated Chromogenic method Qn (PPP) 0.4 {IU/mL} [facility]-Cardiology -Admin [employer] Work Phone: Comment on above: The therapeutic refe rence range for UFH may be either 0.3-0.6 IU/mL or 0.3-0.7 IU/mL based on the clinical setting for anticoagulant therapy and the associated nomogram used. For heparin dosing guidelines based on clinical scenario and Heparin Assay results, please refer to local Pharmacy and the [facility] Guidelines for Anticoagulation therapy available on the [facility] intranet at:[email or web address]/Pharmacy/Pages/[facility]_Guidelines_for_Anticoagu.aspx Heparin unfractionated Chromogenic method Qn (PPP) Canceled [facility]-Cardiology -Admin [employer] Work Phone: Comment on above: The therapeutic refe rence range for UFH may be either 0.3-0.6 IU/mL or 0.3-0.7 IU/mL based on the clinical setting for anticoagulant therapy and the associated nomogram used. For heparin dosing guidelines based on clinical scenario and Heparin Assay results, please refer to local Pharmacy and the [facility] Guidelines for Anticoagulation therapy available on the [facility] intranet at:[email or web address]/Pharmacy/Pages/[facility]_Guidelines_for_Anticoagu.aspx Heparin unfractionated Chromogenic method Qn (PPP) 0.6 {IU/mL} MG-Cardiology -Admin [employer] Work Phone: Comment on above: The therapeutic refe rence range for UFH may be either 0.3-0.6 IU/mL or 0.3-0.7 IU/mL based on the clinical setting for anticoagulant therapy and the associated nomogram used. For heparin dosing guidelines based on clinical scenario and Heparin Assay results, please refer to local Pharmacy and the [facility] Guidelines for Anticoagulation therapy available on the [facility] intranet at:[email or web address]/Pharmacy/Pages/[facility]_Guidelines_for_Anticoagu.aspx Heparin unfractionated Chromogenic method Qn (PPP) Canceled [facility]-Cardiology -Admin [employer] Work Phone: Comment on above: The therapeutic refe rence range for UFH may be either 0.3-0.6 IU/mL or 0.3-0.7 IU/mL based on the clinical setting for anticoagulant therapy and the associated nomogram used. For heparin dosing guidelines based on clinical scenario and Heparin Assay results, please refer to local Pharmacy and the [facility] Guidelines for Anticoagulation therapy available on the [facility] intranet at:[email or web address]/Pharmacy/Pages/[facility]_Guidelines_for_Anticoagu.aspx Heparin unfractionated Chromogenic method Qn (PPP) 0.8 {IU/mL} [facility]-Cardiology -Admin [employer] Work Phone: Comment on above: The therapeutic refe rence range for UFH may be either 0.3-0.6 IU/mL or 0.3-0.7 IU/mL based on the clinical setting for anticoagulant therapy and the associated nomogram used. For heparin dosing guidelines based on clinical scenario and Heparin Assay results, please refer to local Pharmacy and the [facility] Guidelines for Anticoagulation therapy available on the [facility] intranet at:[email or web address]/Pharmacy/Pages/[facility]_Guidelines_for_Anticoagu.aspx Heparin unfractionated Chromogenic method Qn (PPP) 0.8 {IU/mL} [facility]-Cardiology -Admin [employer] Work Phone: Comment on above: The therapeutic refe rence range for UFH may be either 0.3-0.6 IU/mL or 0.3-0.7 IU/mL based on the clinical setting for anticoagulant therapy and the associated nomogram used. For heparin dosing guidelines based on clinical scenario and Heparin Assay results, please refer to local Pharmacy and the [facility] Guidelines for Anticoagulation therapy available on the [facility] intranet at:[email or web address]://[email or web address]lequahSeva Searchf[email or web address]/Pharmacy/Pages/[facility]_Guidelines_for_Anticoagu.aspx Laboratory - Chemistry and C hemistry - challengeon 05-29-2022 Iron [Mass/Vol] 15 ug/dL below low threshold 35 - 150 MG-Cardiology -Admin [employer] Work Phone: Iron binding capacity [Mass/Vol] 325 ug/dL 240 - 445 MG-Cardiology -Admin [employer] Work Phone: Laboratory - Coagulationon 0 05-29-2022 aPTT Coag (PPP) [Time] 158 s Critically high 26 - 39 MG-Cardiology -Admin [employer] Work Phone: Comment on above: THE APTT IS NO LONGE R USED FOR MONITORING UNFRACTIONATED HEPARIN THERAPY. FOR MONITORING HEPARIN THERAPY, USE THE HEPARIN ASSAY..CRIT APTT CALLED RB TO JOSE L CHUNG., 05/29/2022 05:00 INR Coag (PPP) [Relative time] 1.2 {INR} above high threshold 0.9 - 1.1 MG-Cardiology -Admin [employer] Work Phone: PT Coag (PPP) [Time] 13.6 s above high threshold 9.8 - 13.4 MG-Cardiology -Admin [employer] Work Phone: Laboratory - Hematology and Cell countson 05-29-2022 Hematocrit (Bld) [Volume fraction] 25.3 % below low threshold See Below [facility]-Cardiology -Admin [employer] Work Phone: Comment on above: Reference Range: 41. 0 - 52.0 Hemoglobin (Bld) [Mass/Vol] 7.7 g/dL below low threshold See Below [facility]-Cardiology -Admin [employer] Work Phone: Comment on above: Reference Range: 13. 5 - 17.5 Platelets (Bld) [#/Vol] 148 10*3/uL below low threshold 150 - 450 MG-Cardiology -Admin [employer] Work Phone: RBC (Bld) [#/Vol] 3.11 {x10E12/L} below low threshold See Below [facility]-Cardiology -Admin [employer] Work Phone: Comment on above: Reference Range: 4.5 0 - 5.90 Magnesium, Serumon Magnesium [Mass/Vol] 1.87 mg/dL See Below MG-C ardiology -Admin [employer] Work Phone: Comment on above: Reference Range: 1.6 0 - 2.40 No Panel Informationon 05-29 5 % below low threshold 25 - 45 MG-Cardiology -Admin [employer] Work Phone: 16.2 % above high threshold See Below [facility]Cardiology -Admin [employer] Work Phone: Comment on above: Reference Range: 11. 5 - 14.5 30.4 g/dL below low threshold See Below [facility]-Cardiology -Admin [employer] Work Phone: Comment on above: Reference Range: 32. 0 - 36.0 81 fL 80 - 100 MG-Cardiology -Admin [employer] Work Phone: 0.0 {/100_WBC} 0.0-0.0 MG-Cardiol ogy -Admin [employer] Work Phone: 4.8 {x10E9/L} 4.4 - 11.3 MG-Cardiolo gy -Admin [employer] Work Phone: Renal Function Panelon 05-29 Albumin BCP dye [Mass/Vol] 2.8 g/dL below low threshold 3.4 - 5.0 MG-Cardiology -Admin [employer] Work Phone: Calcium [Mass/Vol] 7.8 mg/dL below low threshold 8.6 - 10.6 MG-Cardiology -Admin [employer] Work Phone: Chloride [Moles/Vol] 105 mmol/L 98 - 107 MG-C ardiology -[employer] Work Phone: CO2 [Moles/Vol] 24 mmol/L 21 - 32 MG-Cardio logy -[employer] Work Phone: Creatinine [Mass/Vol] 0.93 mg/dL See Below MG- Cardiology -Admin [employer] Work Phone: Comment on above: Reference Range: 0.5 0 - 1.30 Glucose [Mass/Vol] 101 mg/dL above high threshold 74 - 99 MG-Cardiology -Admin [employer] Work Phone: Phosphate [Mass/Vol] 3.0 mg/dL 2.5 - 4.9 MG-C ardiology -[employer] Work Phone: Comment on above: The performance deepthi acteristics of phosphorus testing in heparinized plasma have been validated by the individual laboratory site where testing is performed. Testing on heparinized plasma is not approved by the FDA; however, such approval is not necessary. Potassium [Moles/Vol] 3.4 mmol/L below low threshold 3.5 - 5.3 MG-Cardiology -Admin [employer] Work Phone: Sodium [Moles/Vol] 137 mmol/L 136 - 145 MG-Car diology -Admin [employer] Work Phone: Urea nitrogen [Mass/Vol] 11 mg/dL 6 - 23 MG-Cardiology -Admin [employer] Work Phone: Renal Function Panel 83 {mL/min/1.73m2} >90 MG-Cardiology -Admin [employer] Work Phone: Comment on above: CALCULATIONS OF GRACE MATED GFR ARE PERFORMED USING THE 2020 CKD-EPI STUDY REFIT EQUATION WITHOUT THE RACE VARIABLE FOR THE IDMS-TRACEABLE CREATININE METHODS.https://jasn.asnjournals.org/content/early/A SN.6543409061 Renal Function Panel 11 mmol/L 10 - 20 MG-C ardiology -[employer] Work Phone: Abstracton 05-28-2022 Abstract [id number] Yariel Arce 1940 Date Provider Department Center 05/28/2022 AMARILYS ORDAZ [facility] No family history on file Normal [facility] Complete Blood Count + Diffe rentialon 05-28-2022 Hematocrit (Bld) [Volume fraction] 27.2 % below low threshold See Below [facility]-Cardiology -Admin [employer] Work Phone: Comment on above: Reference Range: 41. 0 - 52.0 Hemoglobin (Bld) [Mass/Vol] 8.6 g/dL below low threshold See Below MG-Cardiology -Admin [employer] Work Phone: Comment on above: Reference Range: 13. 5 - 17.5 Platelets (Bld) [#/Vol] 154 10*3/uL 150 - 450 MG-Cardiology -Admin [employer] Work Phone: RBC (Bld) [#/Vol] 3.43 {x10E12/L} below low threshold See Below [facility]-Cardiology -Admin [employer] Work Phone: Comment on above: Reference Range: 4.5 0 - 5.90 Complete Blood Count + Differential 0.03 {x10E9/L} See Below [facility] -Admin [employer] Work Phone: Comment on above: Reference Range: 0.0 0 - 0.10 Complete Blood Count + Differential 0.14 {x10E9/L} See Below [employer] -Admin [employer] Work Phone: Comment on above: Reference Range: 0.0 0 - 0.40 Complete Blood Count + Differential 0.60 {x10E9/L} See Below [employer] -Admin [employer] Work Phone: Comment on above: Reference Range: 0.0 5 - 0.80 Complete Blood Count + Differential 1.04 {x10E9/L} See Below [employer] -Admin [employer] Work Phone: Comment on above: Reference Range: 0.8 0 - 3.00 Complete Blood Count + Differential 3.39 {x10E9/L} See Below [employer] -Admin [employer] Work Phone: Comment on above: Reference Range: 1.6 0 - 5.50 Complete Blood Count + Differential 0.6 % 0.0 - 2.0 [facility] [employer] Work Phone: Complete Blood Count + Differential 2.7 % 0.0 - 6.0 [facility] [employer] Work Phone: Complete Blood Count + Differential 11.5 % 2.0 - 10.0 [facility] [employer] Work Phone: Complete Blood Count + Differential 19.9 % See Below [facility] [employer] Work Phone: Comment on above: Reference Range: 13. 0 - 44.0 Complete Blood Count + Differential 0.4 % 0.0 - 0.9 [facility] [employer] Work Phone: Comment on above: Immature Granulocyte Count (IG) includes promyelocytes, myelocytes and metamyelocytes but does not include bands. Percent differential counts (%) should be interpreted in the context of the absolute cell counts (cells/L). Complete Blood Count + Differential 64.9 % See Below [employer] Work Phone: Comment on above: Reference Range: 40. 0 - 80.0 Complete Blood Count + Differential 16.3 % above high threshold See Below [employer] Work Phone: Comment on above: Reference Range: 11. 5 - 14.5 Complete Blood Count + Differential 31.6 g/dL below low threshold See Below [employer] Work Phone: Comment on above: Reference Range: 32. 0 - 36.0 Complete Blood Count + Differential 79 fL below low threshold 80 - 100 [employer] Work Phone: Complete Blood Count + Differential 0.0 {/100_WBC} 0.0-0.0 [facility] [employer] Work Phone: Complete Blood Count + Differential 5.2 {x10E9/L} 4.4 - 11.3 [employer] Work Phone: Coronavirus 2019 RNA by PCR, Screening Asymptomticon 05-28-2022 Coronavirus 2019 RNA by PCR, Screening Asymptomtic Not detected Normal See Below [employer] Work Phone: Comment on above: SOURCE: Nasal, Nasop haryngealReference Range: Not Detected.This test has received FDA Emergency Use Authorization (EUA) and has been verified by [facility] ([facility]). This test is only authorized for the duration of time that circumstances exist to justify the authorization of the emergency use of in vitro diagnostic tests for the detection of SARS-CoV-2 virus and/or diagnosis of COVID-19 infection under section 564(b)(1) of the Act, 21 U.S.C. 360bbb-3(b)(1), unless the authorization is terminated or revoked sooner. [facility] is certified under CLIA-88 as qualified to perform high complexity testing. Testing is performed in the [facility] located at [address] [place] [address].SARS-CoV-2/Flu/RSV Multiplex Test: Fact sheet for providers: https://www.fda.gov/media/668066/downloadFact sheet for patients: https://www.fda.gov/media/224692/download Hemoglobin A1Con 05-28-2022 HbA1c (Bld) [Mass fraction] 6.0 % Abnormal -Cardiology -[facility] [employer] Work Phone: Comment on above: Diagnosis of Diabete s-Adults Non-Diabetic: < or = 5.6% Increased risk for developing diabetes: 5.7-6.4% Diagnostic of diabetes: > or = 6.5%. Monitoring of Diabetes Age (y) Therapeutic Goal (%) Adults: >18 <7.0 Pediatrics: 13-18 <7.5 7-12 <8.0 0- 6 7.5-8.5 [place] [employer]. Diabetes Care 33(S1), Sep 2009. Hemoglobin A1C 126 {MG/DL} -Cardio logy -[facility] [employer] Work Phone: Heparin assay, UFHon 022 Heparin unfractionated Chromogenic method Qn (PPP) 0.7 {IU/mL} [facility] [employer] Work Phone: Comment on above: The therapeutic refe rence range for UFH may be either 0.3-0.6 IU/mL or 0.3-0.7 IU/mL based on the clinical setting for anticoagulant therapy and the associated nomogram used. For heparin dosing guidelines based on clinical scenario and Heparin Assay results, please refer to local Pharmacy and the [facility] Guidelines for Anticoagulation therapy available on the [facility] intranet at:[email or web address]/Pharmacy/Pages/[facility]_Guidelines_for_Anticoagu.aspx Heparin unfractionated Chromogenic method Qn (PPP) Canceled -Cardiology Admin [employer] Work Phone: Comment on above: The therapeutic refe rence range for UFH may be either 0.3-0.6 IU/mL or 0.3-0.7 IU/mL based on the clinical setting for anticoagulant therapy and the associated nomogram used. For heparin dosing guidelines based on clinical scenario and Heparin Assay results, please refer to [facility] and [facility] Guidelines for Anticoagulation therapy available on the [facility] intranet at:[email or web address]://[email or web address]/Pharmacy/Pages/[facility]_Guidelines_for_Anticoagu.aspx Heparin unfractionated Chromogenic method Qn (PPP) Canceled MG-Cardiology -Admin [employer] Work Phone: Comment on above: The therapeutic refe rence range for UFH may be either 0.3-0.6 IU/mL or 0.3-0.7 IU/mL based on the clinical setting for anticoagulant therapy and the associated nomogram used. For heparin dosing guidelines based on clinical scenario and Heparin Assay results, please refer to [facility] and [facility] Guidelines for Anticoagulation therapy available on the [facility] intranet at:[email or web address]://[email or web address]/Pharmacy/Pages/[facility]_Guidelines_for_Anticoagu.aspx Heparin unfractionated Chromogenic method Qn (PPP) 0.6 {IU/mL} MG-Cardiology -Admin [employer] Work Phone: Comment on above: The therapeutic refe rence range for UFH may be either 0.3-0.6 IU/mL or 0.3-0.7 IU/mL based on the clinical setting for anticoagulant therapy and the associated nomogram used. For heparin dosing guidelines based on clinical scenario and Heparin Assay results, please refer to [facility] and [facility] Guidelines for Anticoagulation therapy available on the [facility] intranet at:[email or web address]://[email or web address]/Pharmacy/Pages/[facility]_Guidelines_for_Anticoagu.aspx Heparin unfractionated Chromogenic method Qn (PPP) Canceled MG-Cardiology -Admin [employer] Work Phone: Comment on above: The therapeutic refe rence range for UFH may be either 0.3-0.6 IU/mL or 0.3-0.7 IU/mL based on the clinical setting for anticoagulant therapy and the associated nomogram used. For heparin dosing guidelines based on clinical scenario and Heparin Assay results, please refer to local Pharmacy and the [facility] Guidelines for Anticoagulation therapy available on the [facility] intranet at:[email or web address]/[email or web address]/Pages/[facility]_Guidelines_for_Anticoagu.aspx Laboratory - Blood bankon ABO group Nom (Bld) A MG-Ca rdiology -Admin [employer] Work Phone: Blood group antibody investigation (P/RBC) [Interp] See Comment MG-Cardiology -Admin [employer] Work Phone: Comment on above: [facility] IRL: Anti-l ittle e Blood group antibody screen Ql Positive MG-Cardiology -Admin [employer] Work Phone: Comment on above: History of POSITIVE Antibody Screen-current specimen required within the 3 days prior to transfusion. Rh immune globulin screen (Bld) [Interp] Positive MG-Cardiol ogy -Admin [employer] Work Phone: ABO group Nom (Bld) Canceled MG-Ca rdiology -Admin [employer] Work Phone: Comment on above: CX NO PHLEB ID TALKE D TO SUSHMA LYLECAYLA SHE DID NOT COLLECT THE SAMPLE, 05/28/2022 17:49 Blood group antibody screen Ql Canceled MG-Cardiology -Admin [employer] Work Phone: Comment on above: CX NO PHLEB ID TALKE D TO SUSHMA MEDARDO SHE DID NOT COLLECT THE SAMPLE, 05/28/2022 17:49 Rh immune globulin screen (Bld) [Interp] Canceled MG-Cardiol ogy -Admin [employer] Work Phone: Comment on above: CX NO PHLEB ID TALKE D TO SUSHMA RICARDOELVIRA SHE DID NOT COLLECT THE SAMPLE, 05/28/2022 17:49 ABO group Nom (Bld) A MG-Ca rdiology -Admin [employer] Work Phone: Blood group antibody investigation (P/RBC) [Interp] Inconclusive MG-Cardiology -Admin [employer] Work Phone: Comment on above: Additional sample re quested see [id number] Blood group antibody screen Ql Positive MG-Cardiology -Admin [employer] Work Phone: Comment on above: History of POSITIVE Antibody Screen-current specimen required within the 3 days prior to transfusion. Sendout to reference lab required. 28 mL EDTA and 10 mL RED Top blood specimen needed within the 3 days prior to transfusion.Order BBIRLREVISED REPORT, Previously reported as: History of POSITIVE Antibody Screen-current specimen required within the 3 days prior to transfusion. (Reported 05/28/2022 02:53)notified Brynn Karl, 05/28/2022 06:51 Rh immune globulin screen (Bld) [Interp] Positive MG-Cardiol ogy -[facility] [employer] Work Phone: Laboratory - Chemistry and C hemistry - challengeon 05-28-2022 Albumin BCP dye [Mass/Vol] 3.0 g/dL below low threshold 3.4 - 5.0 MG-Cardiology [employer] Work Phone: ALP [Catalytic activity/Vol] 66 U/L 33 - 136 [facility]Cardiology [facility] Work Phone: ALT With P-5'-P [Catalytic activity/Vol] 11 U/L 10 - 52 [facility]Cardiology [facility] Work Phone: Comment on above: Patients treated wit h Sulfasalazine may generate falsely decreased results for ALT. AST With P-5'-P [Catalytic activity/Vol] 17 U/L 9 - 39 MG-Cardiology -Admin [employer] Work Phone: Bilirubin [Mass/Vol] 0.8 mg/dL 0.0 - 1.2 MG-C ardiology -[employer] Work Phone: Calcium [Mass/Vol] 7.7 mg/dL below low threshold 8.6 - 10.6 MG-Cardiology -[facility] [employer] Work Phone: Chloride [Moles/Vol] 107 mmol/L 98 - 107 MG-C ardiology [employer] Work Phone: CO2 [Moles/Vol] 22 mmol/L 21 - 32 MG-Cardio logy -Admin [employer] Work Phone: Creatinine [Mass/Vol] 0.83 mg/dL See Below MG- Cardiology -Admin [employer] Work Phone: Comment on above: Reference Range: 0.5 0 - 1.30 Glucose [Mass/Vol] 76 mg/dL 74 - 99 MG-Car diology -[employer] Work Phone: Potassium [Moles/Vol] 3.5 mmol/L 3.5 - 5.3 MG- Cardiology -Admin [employer] Work Phone: Protein [Mass/Vol] 5.1 g/dL below low threshold 6.4 - 8.2 MG-Cardiology -Admin [employer] Work Phone: Sodium [Moles/Vol] 140 mmol/L 136 - 145 MG-Car diology -[employer] Work Phone: TSH Qn 2.70 m[IU]/L See Below -Cardiolog y -[employer] Work Phone: Comment on above: Reference Range: 0.4 4 - 3.98 TSH testing is performed using different testing methodology at [facility] than at other [facility]. Direct result comparisons should only be made within the same method. Urea nitrogen [Mass/Vol] 12 mg/dL 6 - 23 MG-Cardiology -Admin [employer] Work Phone: Laboratory - Coagulationon 0 05-28-2022 aPTT Coag (PPP) [Time] 30 s 26 - 39 MG -Cardiology -Admin [employer] Work Phone: Comment on above: THE APTT IS NO LONGE R USED FOR MONITORING UNFRACTIONATED HEPARIN THERAPY. FOR MONITORING HEPARIN THERAPY, USE THE HEPARIN ASSAY. INR Coag (PPP) [Relative time] 1.1 {INR} 0.9 - 1.1 MG-Cardiology -Admin [employer] Work Phone: PT Coag (PPP) [Time] 12.9 s 9.8 - 13.4 MG-C ardiology -[employer] Work Phone: Lipid Panelon 05-28-2022 Cholesterol [Mass/Vol] 96 mg/dL 0 - 199 MG -Cardiology [employer] Work Phone: Comment on above: . AGE DESIRABLE BORD KHAI HIGH HIGH 0-19 Y 0 - 169 170 - 199 >/= 200 20-24 Y 0 - 189 190 - 224 >/= 225 >24 Y 0 - 199 200 - 239 >/= 240 All ranges are based on fasting samples. Specific therapeutic targets will vary based on patient-specific cardiac risk.. Pediatric guidelines reference:Pediatrics 2011, 128(S5). Adult guidelines reference: NCEP ATPIII Guidelines, RAN 2001, 258:2486-97. Venipuncture immediately after or during the administration of Metamizole may lead to falsely low results. Testing should be performed immediately prior to Metamizole dosing. Cholesterol in HDL [Mass/Vol] 33.2 mg/dL Abnormal MG-Cardiology [employer] Work Phone: Comment on above: . AGE VERY LOW LOW N ORMAL HIGH 0-19 Y < 35 < 40 40-45 ---- 20-24 Y ---- < 40 >45 ---- >24 Y ---- < 40 40-60 >60. Cholesterol in LDL [Mass/Vol] 51 mg/dL 0 - 99 MG-Cardiology [employer] Work Phone: Comment on above: . NEAR BORD AGE PHI RABLE OPTIMAL HIGH HIGH VERY HIGH 0-19 Y 0 - 109 --- 110-129 >/= 130 ---- 20-24 Y 0 - 119 --- 120-159 >/= 160 ---- >24 Y 0 - 99 100-129 130-159 160-189 >/=190. Triglyceride [Mass/Vol] 57 mg/dL 0 - 149 MG-Cardiology [employer] Work Phone: Comment on above: . AGE DESIRABLE BORD KHAI HIGH HIGH VERY HIGH 0 D-90 D 19 - 174 ---- ---- ----91 D- 9 Y 0 - 74 75 - 99 >/= 100 ---- 10-19 Y 0 - 89 90 - 129 >/= 130 ---- 20-24 Y 0 - 114 115 - 149 >/= 150 ---- >24 Y 0 - 149 150 - 199 200- 499 >/= 500. Venipuncture immediately after or during the administration of Metamizole may lead to falsely low results. Testing should be performed immediately prior to Metamizole dosing. Lipid Panel 11 mg/dL 0 - 40 [facility] [employer] Work Phone: Lipid Panel 2.9 1 [facility] [employer] Work Phone: Comment on above: REF VALUESDESIRABLE < 3.4HIGH RISK > 5.0 MRSA Screenon 05-28-2022 Staphylococcus sp identified Org specific cx Nom (Unsp spec) [facility] [employer] Work Phone: Magnesium, Serumon 2 Magnesium [Mass/Vol] 1.64 mg/dL See Below MG-[facility] ardiology -[employer] Work Phone: Comment on above: Reference Range: 1.6 0 - 2.40 No Panel Informationon 05-28 88 {mL/min/1.73m2} >90 [facility] di[facility] -[employer] Work Phone: Comment on above: CALCULATIONS OF GRACE MATED GFR ARE PERFORMED USING THE 2020 CKD-EPI STUDY REFIT EQUATION WITHOUT THE RACE VARIABLE FOR THE IDMS-TRACEABLE CREATININE METHODS.https://jasn.asnjournals.org/content///[email or web address] 15 mmol/L 10 - 20 [facility] [employer] Work Phone: 446 pg/mL above high threshold 0 - 99 [facility] [employer] Work Phone: Comment on above: . <100 pg/mL - Heart failure -283 pg/mL - Intermediate probability of acute heart. failure exacerbation. Correlate with clinical. context and patient history. >=300 pg/mL - Heart Failure likely. Correlate with clinical. context and patient history. Biotin interference may cause falsely decreased results. Patients taking a Biotin dose of up to 5 mg/day should refrain from taking Biotin for 24 hours before sample collection. Providers may contact their local laboratory for further information. Path Review Immunohematology on 05-28-2022 Path Review Immunohematology Canceled -Cardiology [facility] Work Phone: Comment on above: By her/his signature above, the Pathologist listed as making the final interpretation certifies that she/he has personally reviewed this case. Path Review Immunohematology X.HE -Cardiology -[facility] Work Phone: Comment on above: By her/his signature above, the Pathologist listed as making the final interpretation certifies that she/he has personally reviewed this case. ANTIBODY DETECTION SCREEN IS POSITIVE.ANTIBODY IDENTIFICATION PANEL WAS PERFORMED.THE AUTOCONTROL IS NEGATIVE.ADDITIONAL SPECIMEN REQUIRED TO COMPLETE EVALUATION. Radiologyon 05-28-2022 XR Chest 2 Views Normal [facility]i ology -[facility] Work Phone: XR Chest Single view Normal [facility] ardiology -[facility] Work Phone: CHEMISTRYOrdered By: SYSTEM SYSTEM on 05-27-2022 Troponin I.cardiac [Mass/Vol] 146.00 pg/mL Invalid Interpretation Code 15.90 - 38.40 pg/mL [facility]isol Comment on above: Result Comment: Crit ical Result verified by previous result\ Critical Result I_hsTnI:146.0 Called to ELIESER CLEMENT at 2N by JACQUES SANTANA and read back for confirmation at 05/27/2022 11:39:03\ Critical Result I_hsTnI:146.0 Called to ELIESER GRANT at 2N by JACQUES SANTANA and read back for confirmation at 05/27/2022 11:39:40 Troponin I.cardiac [Mass/Vol] 109.50 pg/mL Invalid Interpretation Code 15.90 - 38.40 pg/mL [facility] Comment on above: Result Comment: Crit ical Result verified by previous result\ Critical Result I_hsTnI:109.5 Called to ELIESER GRANT at 2N by JACQUES SANTANA and read back for confirmation at 05/27/2022 07:57:09 Cholesterol [Mass/Vol] 93 mg/dL Low 120 - 200 mg/dL [facility] Cholesterol in HDL [Mass/Vol] 35 mg/dL Invalid Interpretation Code [facility] Cholesterol in LDL [Mass/Vol] 49 mg/dL Normal <=129mg/dL [facility] Cholesterol in VLDL [Mass/Vol] 6 mg/dL Low 7 - 40 mg/dL [facility] Triglyceride [Mass/Vol] 29 mg/dL Normal <=149mg/dL [facility] Troponin I.cardiac [Mass/Vol] 65.70 pg/mL Invalid Interpretation Code 15.90 - 38.40 pg/mL [facility] Comment on above: Result Comment: Crit ical Result I_hsTnI:65.7 Called to BROOKE BAUTISTA at 2N by KATHERINE NEAL and read back for confirmation at 05/27/2022 05:38:33\Critical Result verified by previous result HEMATOLOGYOrdered By: Vlad Zamarripa on 05-27-2022 Anisocytosis Ql (Bld) Present (05/27/22 7:18 AM) Normal [facility] Erythrocyte distribution width (RBC) [Ratio] 16.7 % High 10.9 - 14.2 % [facility] Hematocrit (Bld) [Volume fraction] 25.4 % Low 37.7 - 49.0 % [facility] Hemoglobin (Bld) [Mass/Vol] 8.1 g/dL Low 13.5 - 17.5 gm/dL [facility] Hypochromia Auto Ql (Bld) Present (05/27/22 7:18 AM) Normal [facility] MCH (RBC) [Entitic mass] 24.4 pg Low 27.0 - 34.0 pg [facility] MCHC (RBC) [Mass/Vol] 32.0 g/dL Normal 31.4 - 36.0 gm/dL [facility] MCV (RBC) [Entitic vol] 76.1 fL Low 80.0 - 100.0 fL [facility] Microcytes Ql (Bld) Present (05/27/22 7:18 AM) Normal [facility] Morphology Lit (Bld) [Interp] See Morphology (05/27/22 7:18 AM) Normal [facility] Ovalocytes LM Ql (Bld) Present (05/27/22 7:18 AM) Normal [facility] Platelet mean volume (Bld) [Entitic vol] 8.4 fL Normal 6.4 - 10.8 fL [facility] Platelets (Bld) [#/Vol] 150.0 E9/L Normal 150.0 - 500.0 E9/L [facility] RBC (Bld) [#/Vol] 3.3 E12/L Low 4.3 - 5.9 E12/L [facility] Schistocytes LM Ql (Bld) Present (05/27/22 7:18 AM) Normal [facility] Teardrop Cell Present (05/27/22 7:18 AM) Normal [facility] WBC corrected for nucl RBC Auto (Bld) [#/Vol] 4.4 E9/L Normal 4.0 - 11.0 E9/L [facility] HEMATOLOGYOrdered By: SYSTEM SYSTEM on 05-27-2022 Basophils/100 WBC (Bld) 0.7 % Normal 0.0 - 2.0 % [facility] Basophils/Leukocytes Auto (Bld) [Pure # fraction] 0.0 E9/L Normal 0.0 - 0.2 E9/L [facility] Eosinophils/100 WBC (Bld) 6.0 % Normal 0.0 - 8.0 % [facility] Eosinophils/Leukocytes Auto (Bld) [Pure # fraction] 0.3 E9/L Normal 0.0 - 0.5 E9/L [facility] Lymphocytes/100 WBC (Bld) 25.7 % Normal 14.0 - 50.0 % [facility] Lymphocytes/Leukocytes Auto (Bld) [Pure # fraction] 1.1 E9/L Normal 1.0 - 4.0 E9/L [facility] Monocytes/100 WBC (Bld) 13.1 % Normal 4.0 - 14.0 % [facility] Monocytes/Leukocytes Auto (Bld) [Pure # fraction] 0.6 E9/L Normal 0.2 - 1.0 E9/L [facility] Neutrophils/100 WBC (Bld) 54.5 % Normal 36.0 - 75.0 % [facility] Neutrophils/Leukocytes Auto (Bld) [Pure # fraction] 2.4 E9/L Normal 2.0 - 7.5 E9/L [facility] HEMATOLOGYOrdered By: Luis Manuel Ryan on 05-27-2022 Path Review Anemia with hypochro quintin and occasional target cells. Clinical correlation and iron studies are recommended to determine etiology as clinically indicated.D64.9CPT 61884 Invalid Interpretation Code [facility] No Panel Informationon 05-27 [email or web address] ?[email or web address]&Date =10-04-2021&Time=23%3a15% 3a37%3a00&TestType=ECG&Si te=1&OutputType=PDF&Ext=P DF [facility] Work Phone: [phone] data qualit y, interpretation may be adversely affected [facility] Work Phone: [phone] Abnormal [facility] [employer] Work Phone: [phone] [facility] [employer] Work Phone: [phone] [facility] [employer] Work Phone: [phone] [facility] [employer] Work Phone: [phone] [facility] [employer] Work Phone: [phone] [facility] [employer] Work Phone: [phone] [facility] [employer] Work Phone: [phone] [facility] [employer] Work Phone: [phone] [facility] [employer] Work Phone: [phone] [facility] [employer] Work Phone: [phone] [facility] [employer] Work Phone: [phone] [facility] [employer] Work Phone: [phone] [facility] [employer] Work Phone: CHEMISTRYOrdered By: [employer] SYSTEM on 05-26-2022 Anion gap [Moles/Vol] 13 mmol/L Normal 6 - 16 mEq/L [facility] Calcium [Mass/Vol] 8.7 mg/dL Low 8.9 - 11. 1 mg/dL [facility] Chloride [Moles/Vol] 102 mmol/L Normal 101 - 1 11 mmol/L [facility] CO2 [Moles/Vol] 24 mmol/L Normal 21 - 31 mmol/L [facility] Creatinine [Mass/Vol] 0.9 mg/dL Normal 0.5 - 1.3 mg/dL [facility] GFR/1.73 sq M.predicted among blacks MDRD (S/P/Bld) [Vol rate/Area] mL/min/1.73 m2 Normal >=59mL/min /1.73 m2 [facility] Chem S GFR/1.73 sq M.predicted among non-blacks MDRD (S/P/Bld) [Vol rate/Area] mL/min/1.73 m2 Normal >=59mL/min /1.73 m2 [facility] Chem S Glucose [Mass/Vol] 113 mg/dL Normal 55 - 199 mg/dL [facility] Potassium [Moles/Vol] 3.9 mmol/L Normal 3.5 - 5.3 mmol/L [facility] Sodium [Moles/Vol] 135 mmol/L Normal 135 - 145 mmol/L [facility] Urea nitrogen [Mass/Vol] 13 mg/dL Normal 5 - 21 mg/dL [facility] Urea nitrogen/Creatinine [Mass ratio] 14 mg/mg Normal 10 - 20 [facility] CHEMISTRYOrdered By: Tanisha kc on 05-26-2022 Natriuretic peptide B (Bld) [Mass/Vol] 490 pg/mL High 5 - 80 pg/mL [facility] COAGULATIONOrdered By: Nishant Guillory on 05-26-2022 aPTT Coag (PPP) [Time] 33.5 s Normal 25.1 - 36.5 second(s) [facility]ag INR Coag (PPP) [Relative time] 1.2 {INR} Invalid Interpretation Code [facility] Coag PT Coag (PPP) [Time] 12.9 s High 9.4 - 1 2.5 second(s) [facility]ag HEMATOLOGYOrdered By: SYSTEM SYSTEM on 05-26-2022 Basophils/100 WBC (Bld) 0.7 % Normal 0.0 - 2.0 % [facility] Basophils/Leukocytes Auto (Bld) [Pure # fraction] 0.0 E9/L Normal 0.0 - 0.2 E9/L [facility] Eosinophils/100 WBC (Bld) 1.8 % Normal 0.0 - 8.0 % [facility] Eosinophils/Leukocytes Auto (Bld) [Pure # fraction] 0.1 E9/L Normal 0.0 - 0.5 E9/L [facility] Lymphocytes/100 WBC (Bld) 14.7 % Normal 14.0 - 50.0 % [facility] Lymphocytes/Leukocytes Auto (Bld) [Pure # fraction] 0.9 E9/L Low 1.0 - 4.0 E9/L [facility] Monocytes/100 WBC (Bld) 9.3 % Normal 4.0 - 14.0 % [facility] Monocytes/Leukocytes Auto (Bld) [Pure # fraction] 0.5 E9/L Normal 0.2 - 1.0 E9/L [facility] Neutrophils/100 WBC (Bld) 73.5 % Normal 36.0 - 75.0 % [facility] Neutrophils/Leukocytes Auto (Bld) [Pure # fraction] 4.3 E9/L Normal 2.0 - 7.5 E9/L [facility] HEMATOLOGYOrdered By: Tanisha Delaney on 05-26-2022 Erythrocyte distribution width (RBC) [Ratio] 16.6 % High 10.9 - 14.2 % [facility] Hematocrit (Bld) [Volume fraction] 27.4 % Low 37.7 - 49.0 % [facility] Hemoglobin (Bld) [Mass/Vol] 9.1 g/dL Low 13.5 - 17.5 gm/dL [facility] MCH (RBC) [Entitic mass] 25.4 pg Low 27.0 - 34.0 pg [facility] MCHC (RBC) [Mass/Vol] 33.2 g/dL Normal 31.4 - 36.0 gm/dL [facility] MCV (RBC) [Entitic vol] 76.4 fL Low 80.0 - 100.0 fL [facility] Platelet mean volume (Bld) [Entitic vol] 7.8 fL Normal 6.4 - 10.8 fL [facility] Platelets (Bld) [#/Vol] 179.0 E9/L Normal 150.0 - 500.0 E9/L [facility] RBC (Bld) [#/Vol] 3.6 E12/L Low 4.3 - 5.9 E12/L [facility] WBC corrected for nucl RBC Auto (Bld) [#/Vol] 5.8 E9/L Normal 4.0 - 11.0 E9/L [facility]on [facility]-27 SARS-CoV-2 (COVID-19) RNA LUIS+probe Ql (Unsp spec) Not detected Normal NOT DETECTED [facility] Comment on above: Result Comment: This test is not yet approved or cleared by the [place] FDA. When there are no FDA-approved or cleared tests available, and other criteria are met, FDA can make tests available under an emergency access mechanism called an Emergency Use Authorization (EUA). The EUA for this test is supported by the [place] of Health and Human Service's (HHS's) declaration that circumstances exist to justify the emergency use of in vitro diagnostics for the detection and/or diagnosis of the virus that causes COVID-19. This EUA will remain in effect (meaning this test can be used) for the duration of the COVID-19 declaration justifying emergency of IVDs, unless it is terminated or revoked by FDA (after which the test may no longer be used). When diagnostic testing is negative, the possibility of a false negative should be considered in the context of a patient's recent exposures and the presence of clinical signs and symptoms consistent with SARS-CoV-2. Performed By: #### C ON LICENSE OF [facility] #### [facility] [address] [place] [id number] ABD/PELV W CONon 05-17-20 CT ABD/PELV W CON EXAMINATION: CT ABD/ PELV W CON HISTORY: Disorder of bladder ; staging for bladder cancer COMPARISON: Ultrasound kidneys and bladder 01/14/2022 TECHNIQUE: Axial, Coronal, and Sagittal images were created with IV contrast. Dose reduction techniques were achieved by using automated exposure control and/or adjustment of mA and/or kV according to patient size and/or use of iterative reconstruction technique. FINDINGS: LUNG BASES: Emphysematous changes and scarring within lung bases. Right posterior costophrenic angle calcified granuloma. Cardiomegaly. LIVER: Small liver with several rounded small hypodensities suspected represent cysts or hemangiomas. BILIARY: Cholecystectomy. PANCREAS: No lesion, fluid collection, or abnormal duct dilatation. SPLEEN: No enlargement or focal lesion. ADRENALS: No mass or enlargement. KIDNEYS: Unremarkable right kidney and ureter. Slight prominence of the left renal pelvis and ureter, with moderate dilation of the distal ureter. 3 adjacent calcifications at posterior left margin of the urinary bladder near the ureter insertion, suspected represent phleboliths, but a distal ureteral stone cannot be excluded. Limited evaluation of this area due to metallic streak artifact from right hip replacement. BOWEL/MESENTERY: Marked diverticulosis of the descending and sigmoid colon without acute inflammatory changes. No visible mass, obstruction, or bowel wall thickening. Prior resection and anastomosis of the transverse colon. Prior gastric surgery. AORTA/VASCULAR: No aneurysm or dissection. RETROPERITONEUM: No mass or adenopathy. LYMPH NODES: No adenopathy. URINARY BLADDER: Nondistended urinary bladder with Brown catheter in place. Wall thickening of the urinary bladder up to 12 mm. Suspect large diverticulum from the posterior right margin of the bladder. PELVIC ORGANS: No visible mass. Pelvic organs appropriate for patient age. ABDOMINAL WALL: Numerous small fat filled anterior abdominal wall hernias cephalad and cephalad to the umbilicus extending to the sternum with several areas containing transverse colon; no strangulation or obstruction. BONES: Prior right pelvic repair in right hip replacement. Old healed fracture of right inferior pubic ramus. Degenerative disc disease of lower lumbar spine. OTHER: Negative. IMPRESSION: 1. No prior studies or reports for comparison. 2. Limited evaluation of the urinary bladder due to metallic streak artifact from right hip replacement. Prominent circumferential wall thickening of the urinary bladder to 12 mm without appreciable focal mass. 3. Colonic diverticulosis. 4. Numerous small ventral hernias containing notched fat and portions of transverse colon. Electronically authenticated by: SARAH ROSA Date: 2022-05-17 17:32 Normal [facility] BNPon 05-15-2022 Natriuretic peptide B (Bld) [Mass/Vol] 3211.0 pg/mL Critically high <=1,800.0 [facility] Comment on above: Performed By: #### C VDTBH #### [facility] [address] [place] [address] Dr. Luis Manuel Ryan CBC AUTO DIFFon 05-15-2022 BASO # 0.0 103/ul Normal 0.0-0.1 [facility] Comment on above: Performed By: #### C VDTBH #### [facility] [address] [place] [address] Dr. Luis Manuel Ryan Basophils/100 WBC (Bld) 0.4 % Normal 0.2-2.0 [facility] Comment on above: Performed By: #### C VDTBH #### [facility] [address] [place] [address] Dr. Luis Manuel Ryan EO # 0.2 103/ul Normal 0.0-0.7 [facility] Comment on above: Performed By: #### C VDTBH #### [facility] [address] [place] [address] Dr. Luis Manuel Ryan Eosinophils/100 WBC (Bld) 4.0 % Normal 0.9-7.0 [facility] Comment on above: Performed By: #### C VDTBH #### [facility] [address] [place] [address] Dr. Luis Manuel Ryan Erythrocyte distribution width (RBC) [Ratio] 15.7 % Critically high 11.0-15.0 [facility] Comment on above: Performed By: #### C VDTBH #### [facility] [address] [place] [address] Dr. Luis Manuel Ryan Hematocrit (Bld) [Volume fraction] 25.5 % Critically low 42.0-54.0 [facility] Comment on above: Performed By: #### C VDTBH #### [facility] [address] [place] [address] Dr. Luis Manuel Ryan Hemoglobin (Bld) [Mass/Vol] 8.0 g/dL Critically low 14.0-18.0 [facility] Comment on above: Performed By: #### C VDTBH #### [facility] [address] [place] [address] Dr. Luis Manuel Ryan IG # 0.02 10e3/ul Normal 0.00-0.03 [facility] Comment on above: Performed By: #### C VDTBH #### [facility] [address] [place] [address] Dr. Luis Manuel Ryan IG % 0.4 % Normal 0.0-0.5 [facility] Comment on above: Performed By: #### C VDTBH #### [facility] [address] [place] [address] Dr. Luis Manuel Ryan LYMPH # 1.4 103/ul Normal 1.2-3.8 [facility] Comment on above: Performed By: #### C VDTBH #### [facility] [address] [place] [address] Dr. Luis Manuel Ryan Lymphocytes/100 WBC (Bld) 26.2 % Normal 20.5-60.0 [facility] Comment on above: Performed By: #### C VDTBH #### [facility] [address] [place] [address] Dr. Luis Manuel Ryan MANUAL DIFF REQ NO Normal [facility] Comment on above: Performed By: #### C VDTBH #### [facility] [address] [place] [address] Dr. Luis Manuel Ryan MCH (RBC) [Entitic mass] 25.0 pg Critically low 25.9-34.0 [facility] Comment on above: Performed By: #### C VDTBH #### [facility] [address] [address] [address] Luis Manuel Ryan MCHC (RBC) [Mass/Vol] 31.4 g/dL Normal 29.9-35.2 [facility] Comment on above: Performed By: #### C VDTBH #### [facility] [address] [place] [address] Dr. Luis Manuel Ryan MCV (RBC) [Entitic vol] 79.7 fL Critically low 80.0-94.0 [facility] Comment on above: Performed By: #### C VDTBH #### [facility] [address] [place] [address] Dr. Luis Manuel Ryan MONO # 0.5 103/ul Normal 0.3-0.8 [facility] Comment on above: Performed By: #### C VDTBH #### [facility] [address] [place] [address] Dr. Luis Manuel Ryan Monocytes/100 WBC (Bld) 9.9 % Normal 1.7-12.0 [facility] Comment on above: Performed By: #### C VDTBH #### [facility] [address] [place] [address] Dr. Luis Manuel Ryan NEUT # 3.1 103/ul Normal 1.4-6.5 [facility] Comment on above: Performed By: #### C VDTBH #### [facility] [address] [place] [address] Dr. Luis Manuel Ryan Neutrophils/100 WBC (Bld) 59.1 % Normal 43.0-75.0 [facility] Comment on above: Performed By: #### C VDTBH #### [facility] [address] [place] [address] Dr. Luis Manuel Ryan Platelet mean volume (Bld) [Entitic vol] 9.8 fL Normal 9.5-13.5 [facility] Comment on above: Performed By: #### C VDTBH #### [facility] [address] [place] [address] Dr. Luis Manuel Ryan PLT 177 103/ul Normal 150-450 [facility] Comment on above: Performed By: #### C VDTBH #### [facility] [address] [address] [address] Luis Manuel Ryan RBC 3.20 106/ul Critically low 4.70-6.10 [facility] Comment on above: Performed By: #### C VDTBH #### [facility] [address] [address] [address] Luis Manuel Ryan WBC 5.3 103/ul Normal 4.0-11.0 [facility] Comment on above: Performed By: #### C VDTBH #### [facility] [address] [address] [address] Luis Manuel Ryan PROF 14(COMP METB)on 022 Albumin [Mass/Vol] 2.5 g/dL Critically low 3.4-5.0 [facility] Comment on above: Performed By: #### C VDTBH #### [facility] [address] [place] [address] Dr. Luis Manuel Ryan Albumin/Globulin [Mass ratio] 0.9 {ratio} Normal [facility] Comment on above: Performed By: #### C VDTBH #### [facility] [address] [place] [address] Dr. Luis Manuel Ryan ALP [Catalytic activity/Vol] 72 U/L Normal 46-116 [facility] Comment on above: Performed By: #### C VDTBH #### [facility] [address] [place] [address] Dr. Luis Manuel Ryan ALT [Catalytic activity/Vol] 14 U/L Critically low 16-63 [facility] Comment on above: Performed By: #### C VDTBH #### [facility] [address] [address] [address] Luis Manuel Ryan Anion gap [Moles/Vol] 10.0 mmol/L Normal [facility] Comment on above: Performed By: #### C VDTBH #### [facility] [address] [place] [address] Dr. Luis Manuel Ryan AST [Catalytic activity/Vol] 12 U/L Critically low 15-37 [facility] Comment on above: Performed By: #### C VDTBH #### [facility] [address] [place] [address] Dr. Luis Manuel Ryan Bilirubin [Mass/Vol] 0.7 mg/dL Normal 0.2-1.0 [facility] Comment on above: Performed By: #### C VDTBH #### [facility] [address] [place] [address] Dr. Luis Manuel Ryan Calcium [Mass/Vol] 8.1 mg/dL Critically low 8.5-10.1 [facility] Comment on above: Performed By: #### C VDTBH #### [facility] [address] [place] [address] Dr. Luis Manuel Ryan Chloride [Moles/Vol] 104 mmol/L Normal 98-107 [facility] Comment on above: Performed By: #### C VDTBH #### [facility] [address] [place] [address] Dr. Luis Manuel Ryan CO2 [Moles/Vol] 26.8 mmol/L Normal 21.0-32.0 [facility] Comment on above: Performed By: #### C VDTBH #### [facility] [address] [place] [address] Dr. Luis Manuel Ryan Creatinine [Mass/Vol] 1.01 mg/dL Normal 0.70-1.30 [facility] Comment on above: Performed By: #### C VDTBH #### [facility] [address] [place] [address] Dr. Luis Manuel Ryan EGFR-AF CITIZ[place] >60 Normal >=60 [facility] Comment on above: Performed By: #### C VDTBH #### [facility] [address] [place] [address] Dr. Luis Manuel Ryan EGFR-NON AF CITIZEN OF [place] >60 Normal >=60 [facility] Comment on above: Performed By: #### C VDTBH #### [facility] [address] [place] [address] Dr. Luis Manuel Ryan Globulin (S) [Mass/Vol] 2.8 g/dL Normal [facility] Comment on above: Performed By: #### C VDTBH #### [facility] [address] [address] [address] Luis Manuel Ryan Glucose [Mass/Vol] 91 mg/dL Normal 74-106 [facility] Comment on above: Performed By: #### C VDTBH #### [facility] [address] [address] [address] Luis Manuel Ryan Potassium [Moles/Vol] 3.8 mmol/L Normal 3.5-5.1 [facility] Comment on above: Performed By: #### C VDTBH #### [facility] [address] [address] [address] Luis Manuel Ryan Protein [Mass/Vol] 5.3 g/dL Critically low 6.4-8.2 [facility] Comment on above: Performed By: #### C VDTBH #### [facility] [address] [address] [address] Luis Manuel Ryan Sodium [Moles/Vol] 137 mmol/L Normal 136-145 [facility] Comment on above: Performed By: #### C VDTBH #### [facility] [address] [address] [address] Luis Manuel Ryan Urea nitrogen [Mass/Vol] 11.0 mg/dL Normal 7.0-18.0 [facility] Comment on above: Performed By: #### C VDTBH #### [facility] [address] [address] [address] Luis Manuel Ryan Urea nitrogen/Creatinine [Mass ratio] 10.9 mg/mg Normal [facility] Comment on above: Performed By: #### C VDTBH #### [facility] [address] [place] [address] Dr. Luis Manuel Ryan TROPONIN, HIGH SENSITIVITYon 05-15-2022 HSTROP 40.0 pg/mL Normal 4.0-76.1 [facility] Comment on above: Result Comment: CUT- OFF POINTS HAVE BEEN ESTABLISHED BASED ON THE FOURTH UNIVERSAL DEFINITIONS OF MYOCARDIAL INFARCTION. THE UPPER REFERENCE LIMIT (URL) OF TROPONIN, DEFINED THE 99TH PERCENTILE OF cTnI DISTRIBUTION IN A REFERENCE POPULATION, HAS BEEN CONFIRMED THE DECISION THRESHOLD FOR [place] DIAGNOSIS. Performed By: #### H STROPN #### [facility] [address] [place] [address] Dr. Luis Manuel Ryan BNPon 05-14-2022 Natriuretic peptide B (Bld) [Mass/Vol] 3259.0 pg/mL Critically high <=1,800.0 [facility] Comment on above: Performed By: #### C MP #### [facility] [address] [place] [address] Dr. Luis Manuel Ryan CARDIAC JE 3-6on 2 CK [Catalytic activity/Vol] 43 U/L Normal 39-308 [facility] Comment on above: Performed By: #### C MREP #### [facility] [address] [place] [address] Dr. Luis Manuel Ryan CK.MB [Mass/Vol] 1.27 ng/mL Normal <=3.60 [facility] Comment on above: Performed By: #### C MREP #### [facility] [address] [place] [address] Dr. Luis Manuel Ryan HSTROP 50.9 pg/mL Normal 4.0-76.1 [facility] Comment on above: Result Comment: CUT- OFF POINTS HAVE BEEN ESTABLISHED BASED ON THE FOURTH UNIVERSAL DEFINITIONS OF MYOCARDIAL INFARCTION. THE UPPER REFERENCE LIMIT (URL) OF TROPONIN, DEFINED THE 99TH PERCENTILE OF cTnI DISTRIBUTION IN A REFERENCE POPULATION, HAS BEEN CONFIRMED THE DECISION THRESHOLD FOR [place] DIAGNOSIS. Performed By: #### C MREP #### [facility] [address] [place] [address] Dr. Luis Manuel Ryan CK [Catalytic activity/Vol] 54 U/L Normal 39-308 [facility] Comment on above: Performed By: #### C MREP #### [facility] [address] [place] [address] Dr. Luis Manuel Ryan CK.MB [Mass/Vol] 1.19 ng/mL Normal <=3.60 [facility] Comment on above: Performed By: #### C MREP #### [facility] [address] [place] [address] Dr. Luis Manuel Ryan HSTROP 18.7 pg/mL Normal 4.0-76.1 [facility] Comment on above: Result Comment: CUT- OFF POINTS HAVE BEEN ESTABLISHED BASED ON THE FOURTH UNIVERSAL DEFINITIONS OF MYOCARDIAL INFARCTION. THE UPPER REFERENCE LIMIT (URL) OF TROPONIN, DEFINED THE 99TH PERCENTILE OF cTnI DISTRIBUTION IN A REFERENCE POPULATION, HAS BEEN CONFIRMED THE DECISION THRESHOLD FOR [place] DIAGNOSIS. Performed By: #### C MREP #### [facility] [address] [place] [address] Dr. Luis Manuel Ryan CARDIAC JE ADMITon 022 CK [Catalytic activity/Vol] 49 U/L Normal 39-308 [facility] Comment on above: Performed By: #### C VDTBH #### [facility] [address] [place] [address] Dr. Luis Manuel Ryan CK.MB [Mass/Vol] 1.19 ng/mL Normal <=3.60 [facility] Comment on above: Performed By: #### C VDTBH #### [facility] [address] [place] [address] Dr. Luis Manuel Ryan HSTROP 19.7 pg/mL Normal 4.0-76.1 [facility] Comment on above: Result Comment: CUT- OFF POINTS HAVE BEEN ESTABLISHED BASED ON THE FOURTH UNIVERSAL DEFINITIONS OF MYOCARDIAL INFARCTION. THE UPPER REFERENCE LIMIT (URL) OF TROPONIN, DEFINED THE 99TH PERCENTILE OF cTnI DISTRIBUTION IN A REFERENCE POPULATION, HAS BEEN CONFIRMED THE DECISION THRESHOLD FOR [place] DIAGNOSIS. Performed By: #### C VDTBH #### [facility] [address] [place] [address] Dr. Luis Manuel Ryan PAUL 46 ng/mL Normal 16-96 [facility] Comment on above: Performed By: #### C VDTBH #### [facility] [address] [place] [address] Dr. Luis Manuel Ryan CBC AUTO DIFFon 05-14-2022 BASO # 0.0 103/ul Normal 0.0-0.1 [facility] Comment on above: Performed By: #### C VDTBH #### [facility] [address] [place] [address] Dr. Luis Manuel Ryan Basophils/100 WBC (Bld) 0.7 % Normal 0.2-2.0 [facility] Comment on above: Performed By: #### C VDTBH #### [facility] [address] [place] [address] Dr. Luis Manuel Ryan EO # 0.2 103/ul Normal 0.0-0.7 [facility] Comment on above: Performed By: #### C VDTBH #### [facility] [address] [place] [address] Dr. Luis Manuel Ryan Eosinophils/100 WBC (Bld) 2.9 % Normal 0.9-7.0 [facility] Comment on above: Performed By: #### C VDTBH #### [facility] [address] [place] [address] Dr. Luis Manuel Ryan Erythrocyte distribution width (RBC) [Ratio] 15.9 % Critically high 11.0-15.0 [facility] Comment on above: Performed By: #### C VDTBH #### [facility] [address] [place] [address] Dr. Luis Manuel Ryan Hematocrit (Bld) [Volume fraction] 27.7 % Critically low 42.0-54.0 [facility] Comment on above: Performed By: #### C VDTBH #### [facility] [address] [place] [address] Dr. Luis Manuel Ryan Hemoglobin (Bld) [Mass/Vol] 8.7 g/dL Critically low 14.0-18.0 [facility] Comment on above: Performed By: #### C VDTBH #### [facility] [address] [place] [address] Dr. Luis Manuel Ryan IG # 0.03 10e3/ul Normal 0.00-0.03 [facility] Comment on above: Performed By: #### C VDTBH #### [facility] [address] [place] [address] Dr. Luis Manuel Ryan IG % 0.5 % Normal 0.0-0.5 [facility] Comment on above: Performed By: #### C VDTBH #### [facility] [address] [address] [address] Luis Manuel Ryan LYMPH # 1.5 103/ul Normal 1.2-3.8 [facility] Comment on above: Performed By: #### C VDTBH #### [facility] [address] [place] [address] Dr. Luis Manuel Ryan Lymphocytes/100 WBC (Bld) 24.1 % Normal 20.5-60.0 [facility] Comment on above: Performed By: #### C VDTBH #### [facility] [address] [place] [address] Dr. Luis Manuel Ryan MANUAL DIFF REQ NO Normal [facility] Comment on above: Performed By: #### C VDTBH #### [facility] [address] [place] [address] Dr. Luis Manuel Ryan MCH (RBC) [Entitic mass] 25.2 pg Critically low 25.9-34.0 [facility] Comment on above: Performed By: #### C VDTBH #### [facility] [address] [place] [address] Dr. Luis Manuel Ryan MCHC (RBC) [Mass/Vol] 31.4 g/dL Normal 29.9-35.2 [facility] Comment on above: Performed By: #### C VDTBH #### [facility] [address] [place] [address] Dr. Luis Manuel Ryan MCV (RBC) [Entitic vol] 80.3 fL Normal 80.0-94.0 [facility] Comment on above: Performed By: #### C VDTBH #### [facility] [address] [place] [address] Dr. Luis Manuel Ryan MONO # 0.5 103/ul Normal 0.3-0.8 [facility] Comment on above: Performed By: #### C VDTBH #### [facility] [address] [place] [address] Dr. Luis Manuel Ryan Monocytes/100 WBC (Bld) 8.3 % Normal 1.7-12.0 [facility] Comment on above: Performed By: #### C VDTBH #### [facility] [address] [place] [address] Dr. Luis Manuel Ryan NEUT # 3.9 103/ul Normal 1.4-6.5 [facility] Comment on above: Performed By: #### C VDTBH #### [facility] [address] [place] [address] Dr. Luis Manuel Ryan Neutrophils/100 WBC (Bld) 63.5 % Normal 43.0-75.0 [facility] Comment on above: Performed By: #### C VDTBH #### [facility] [address] [place] [address] Dr. Luis Manuel Ryan Platelet mean volume (Bld) [Entitic vol] 10.0 fL Normal 9.5-13.5 [facility] Comment on above: Performed By: #### C VDTBH #### [facility] [address] [place] [address] Dr. Luis Manuel Ryan PLT 230 103/ul Normal 150-450 [facility] Comment on above: Performed By: #### C VDTBH #### [facility] [address] [place] [address] Dr. Luis Manuel Ryan RBC 3.45 106/ul Critically low 4.70-6.10 [facility] Comment on above: Performed By: #### C VDTBH #### [facility] [address] [place] [address] Dr. Luis Manuel Ryan WBC 6.1 103/ul Normal 4.0-11.0 [facility] Comment on above: Performed By: #### C VDTBH #### [facility] [address] [place] [address] Dr. Luis Manuel Ryan [facility]on 04-26 SARS-CoV-2 (COVID-19) RNA LUIS+probe Ql (Unsp spec) Not detected Normal NOT DETECTED [facility] Comment on above: Result Comment: When diagnostic testing is negative, the possibility of a false negative should be considered in the context of a patient's recent exposures and the presence of clinical signs and symptoms consistent with SARS-CoV-2. This test is not yet approved or cleared by the [place] FDA. When there are no FDA-approved or cleared tests available, and other criteria are met, FDA can make tests available under an emergency access mechanism called an Emergency Use Authorization (EUA). The EUA for this test is supported by the [employer] of Health and Human Service's declaration that circumstances exist to justify the emergency use of in vitro diagnostics for the detection and/or diagnosis of the virus that causes COVID-19. This EUA will remain in effect for the duration of the COVID-19 declaration justifying emergency of IVDs, unless it is terminated or revoked by the FDA (after which the test may no longer be used). Performed By: #### C ON LICENSE OF [facility] #### [facility] [address] [place] [address] Dr. Luis Manuel Ryan ECHO LIMITED STUDYon 05-14- 022 ECHO LIMITED STUDY Patient: Keaton ARCE Exam Date: 05/14/2022 : 1940 Gender:M Ordering : DR ARMANDO HA . Admission #: [id number] Family : DR MYLENE DUNN M.D. Order #: [id number] CLICK HERE TO VIEW EXAM ECHOCARDIOGRAM REPORT PROCEDURE: CARDIO PULMONARY ECHO LIMITED STUDY INDICATIONS: Chest pain COMPARISON: None. DESCRIPTION: Limited ECHOCARDIOGRAM Real-time transthoracic echocardiography with 2D and M-mode performed. QUALITY: Technical quality was good. LEFT VENTRICLE: Normal chamber size. Thickened posterior wall. Global left ventricular systolic function is normal. No wall motion abnormalities seen. Calculated left ventricular ejection fraction is 66%. LV EF: DIASTOLIC: ATRIAL SEPTUM: LEFT ATRIUM: Severe dilatation. RIGHT ATRIUM: Severe dilatation. RIGHT VENTRICLE: Normal chamber size. Normal right ventricular systolic function. TRICUSPID VALVE: Normal mobility and thickness. 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 AORTIC VALVE: Normal trileaflet appearance. The valve opens well. AORTIC ROOT: Normal diameter and appearance. PULMONIC VALVE: Normal thickness and mobility. PERICARDIUM: No evidence of pericardial effusion. IVC: Collapses with inspirations. PLEURA: CONCLUSION: 1. Ventricle is normal in size and exhibits normal systolic function. No wall motion abnormality is seen. LV ejection fraction is 65 to 70%. 2. The right ventricle is normal in size and systolic function. 3. Severe biatrial dilatation. 4. The aortic valve opens well. 5. No pericardial effusion. 6. Limited study performed with no Doppler interrogation as requested. Dictated by: Monty Ruggiero M.D. on 05/14/2022 at 19:04 Approved by: Monty Ruggiero M.D. on 05/14/2022 at 19:06 Normal [facility] PROF CHEM 8 (BAS METB)on Anion gap [Moles/Vol] 10.5 mmol/L Normal [facility] Comment on above: Performed By: #### C VDTBH #### [facility] [address] [place] [address] Dr. Luis Manuel Ryan Calcium [Mass/Vol] 8.3 mg/dL Critically low 8.5-10.1 [facility] Comment on above: Performed By: #### C VDTBH #### [facility] [address] [place] [address] Dr. Luis Manuel Ryan Chloride [Moles/Vol] 102 mmol/L Normal 98-107 [facility] Comment on above: Performed By: #### C VDTBH #### [facility] [address] [address] [address] Luis Manuel Ryan CO2 [Moles/Vol] 27.9 mmol/L Normal 21.0-32.0 [facility] Comment on above: Performed By: #### C VDTBH #### [facility] [address] [place] [address] Dr. Luis Manuel Ryan Creatinine [Mass/Vol] 1.00 mg/dL Normal 0.70-1.30 [facility] Comment on above: Performed By: #### C VDTBH #### [facility] [address] [place] [address] Dr. Luis Manuel Ryan EGFR-AF CITIZEN OF [place] >60 Normal >=60 [facility] Comment on above: Performed By: #### C VDTBH #### [facility] [address] [place] [address] Dr. Luis Manuel Ryan EGFR-NON AF CITIZEN OF [place] >60 Normal >=60 [facility] Comment on above: Performed By: #### C VDTBH #### [facility] [address] [address] [address] Luis Manuel Ryan Glucose [Mass/Vol] 109 mg/dL Critically high 74-[address] [facility] Comment on above: Performed By: #### C VDTBH #### [facility] [address] [address] [address] Luis Manuel Ryan Potassium [Moles/Vol] 4.4 mmol/L Normal 3.5-5.1 [facility] Comment on above: Performed By: #### C VDTBH #### [facility] [address] [address] [address] Luis Manuel Ryan Sodium [Moles/Vol] 136 mmol/L Normal 136-145 [facility] Comment on above: Performed By: #### C VDTBH #### [facility] [address] [address] [address] Luis Manuel Ryan Urea nitrogen [Mass/Vol] 14.0 mg/dL Normal 7.0-18.0 [facility] Comment on above: Performed By: #### C VDTBH #### [facility] [address] [address] [address] Luis Manuel Ryan Urea nitrogen/Creatinine [Mass ratio] 14.0 mg/mg Normal [facility] Comment on above: Performed By: #### C VDTBH #### [facility] [address] [address] [address] Luis Manuel Ryan XR CHEST 1 Von 05-14-2022 XR CHEST 1 V EXAMINATION: XR CHES T 1 V HISTORY: CHEST PAIN, UNSPECIFIED ; chest pain between shoulder blades COMPARISON: XR chest 04/26/2022 FINDINGS: LUNGS: Hyperexpanded lungs. Small opacity within left lateral costophrenic angle. VASCULATURE: No increased pulmonary vasculature. PLEURA: No pneumothorax, effusion, or pleural thickening. CARDIAC: Stable cardiomegaly and cardiac pacer. MEDIASTINUM: No visible mass or adenopathy. BONES: No fracture or visible bone lesion. OTHER: Negative. IMPRESSION: 1. Underexpanded lungs compatible with COPD. 2. New mild opacity adjacent the lower left heart margin and diaphragm likely representing mild infiltrates. Electronically authenticated by: SARAH ROSA Date: 2022-05-14 07:16 Normal [facility] CALCULI, URINARYon 2 2,8 Dihydroxyadenine Normal [facility] Comment on above: Performed By: #### C ALCULI #### [facility] [address] [address] [address] Luis Manuel Ryan Ammonium Acid Urate Normal [facility] Comment on above: Performed By: #### C ALCULI #### [facility] [address] [address] [address] Luis Manuel Ryan Bilirubin Ql (U) Normal [facility] Comment on above: Performed By: #### C ALCULI #### [facility] [address] [address] [address] Luis Manuel Ryan Ca Oxalate Dihydrate 40 % [facility] Comment on above: Performed By: #### C ALCULI #### [facility] [address] [address] [address] Luis Manuel Ryan CaHPO4 (Brushite) Normal [facility] Comment on above: Performed By: #### C ALCULI #### [facility] [address] [address] [address] Luis Manuel Ryan Calcium Bilirubinate Normal [facility] Comment on above: Performed By: #### C ALCULI #### [facility] [address] [address] [address] Luis Manuel Ryan Calcium Carbonate Normal [facility] Comment on above: Performed By: #### C ALCULI #### [facility] [address] [address] [address] Luis Manuel Ryan Calcium Oxalate Monohydrate 60 % Normal [facility] Comment on above: Performed By: #### C ALCULI #### [facility] [address] [address] [address] Luis Manuel yRan Calcium Palmitate Normal [facility] Comment on above: Performed By: #### C ALCULI #### [facility] [address] [address] [address] Luis Manuel Ryan Calcium Phosphate Normal [facility] Comment on above: Performed By: #### C ALCULI #### [facility] [address] [address] [address] Luis Manuel Ryan Calcium Stearate Normal [facility] Comment on above: Performed By: #### C ALCULI #### [facility] [address] [address] [address] Luis Manuel Ryan Carbonate Apatite Normal [facility] Comment on above: Performed By: #### C ALCULI #### [facility] [address] [address] [address] Luis Manuel Ryan Cellular Material Normal [facility] Comment on above: Performed By: #### C ALCULI #### [facility] [address] [address] [address] Luis Manuel Ryan Cholesterol [facility] Comment on above: Performed By: #### C ALCULI #### [facility] [address] [place] [address] Dr. Luis Manuel Ryan Color (U) Brown Normal [facility] Comment on above: Performed By: #### C ALCULI #### [facility] [address] [place] [address] Dr. Luis Manuel Ryan Comment [facility] Comment on above: Performed By: #### C ALCULI #### [facility] [address] [address] [address] Luis Manuel Ryan Comment Comment [facility] Comment on above: Result Comment: Calc ulus received in liquid. Wet calculi must be dried before analysis, which delays reporting of results. Leaving calculi in liquid (such as water, saline, blood, urine) may lead to changes in composition. Performed By: #### C ALCULI #### [facility] [address] [address] [address] Luis Manuel Ryan Comment: Comment Normal [facility] Comment on above: Result Comment: Vanessa moses questions regarding Calculi Analysis contact [facility] at: [phone]. Performed By: #### C ALCULI #### [facility] [address] [address] [address] Luis Manuel Ryan Composition Comment Normal [facility] Comment on above: Result Comment: Perc entage (Represents the % composition) Performed By: #### C ALCULI #### [facility] [address] [address] [address] Luis Manuel Ryan Cystine [facility] Comment on above: Performed By: #### C ALCULI #### [facility] [address] [place] [address] Dr. Luis Manuel Ryan Disclaimer: Comment Normal [facility] Comment on above: Result Comment: This test was developed and its performance characteristics determined by [employer]. It has not been cleared or approved by the Food and Drug Administration. Performed By: #### C ALCULI #### [facility] [address] [address] [address] Luis Manuel Ryan Dried Blood [facility] Comment on above: Performed By: #### C ALCULI #### [facility] [address] [place] [address] Dr. Luis Manuel Ryan Drug or Metabolite Normal [facility] Comment on above: Performed By: #### C ALCULI #### [facility] [address] [place] [address] Dr. Luis Manuel Ryan Hydroxyapatite [place] Comment on above: Performed By: #### C ALCULI #### [facility] [address] [place] [address] Dr. Luis Manuel Ryan Mg NH4 PO4 (Struvite) [facility] Comment on above: Performed By: #### C ALCULI #### [facility] [address] [place] [address] Dr. Luis Manuel Ryan MgHPO4 ([place]ite) Normal [facility] Comment on above: Performed By: #### C ALCULI #### [facility] [address] [place] [address] Dr. Luis Manuel Ryan Other component(s) Normal [facility] Comment on above: Performed By: #### C ALCULI #### [facility] [address] [place] [address] Dr. Luis Manuel Ryan PDF . [facility] Comment on above: Performed By: #### C ALCULI #### [facility] [address] [place] [address] Dr. Luis Manuel Ryan Photo Comment Normal [facility] Comment on above: Result Comment: Phot ograph will follow under a separate cover Performed By: #### C ALCULI #### [facility] [address] [address] [address] Luis Manuel Ryan Please note: Comment Normal [facility] Comment on above: Result Comment: Calc martin report will follow via computer, mail or vp rheumatology delivery. Performed By: #### C ALCULI #### [facility] [address] [address] [address] LuisM anuel Ryan Size 4x3 [facility] Comment on above: Result Comment: Mult iple pieces received. Dimensions of the largest piece reported. Performed By: #### C ALCULI #### [facility] [address] [address] [address] Luis Manuel Ryan Sodium Acid Urate Normal [facility] Comment on above: Performed By: #### C ALCULI #### [facility] [address] [address] [address] Luis Manuel Ryan Source Comment [facility] Comment on above: Result Comment: Urin dorothea Bladder Performed By: #### C ALCULI #### [facility] [address] [address] [address] Luis Manuel Ryan Triamterene [facility] Comment on above: Performed By: #### C ALCULI #### [facility] [address] [address] [address] Luis Manuel Ryan Uric Acid [facility] Comment on above: Performed By: #### C ALCULI #### [facility] [address] [address] [address] Luis Manuel Ryan Uric Acid Dihydrate Normal [facility] Comment on above: Performed By: #### C ALCULI #### [facility] [address] [address] [address] Luis Manuel Ryan Weight 1211 mg Normal [facility] Comment on above: Performed By: #### C ALCULI #### [facility] [address] [address] [address] Luis Manuel Ryan Xanthine Normal [facility] Comment on above: Performed By: #### C ALCULI #### [facility] [id number] 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 There is no evidence of any tumor recurrence. Gastroesophageal reflux disease and reflux laryngitis. He is on omeprazole 20 I told him to use it 40 in the morning before breakfast and also to add a Pepcid after dinner. I also gave him a list of instructions for dietary modifications. Impacted cerumen of the left ear which was addressed with a small instrument. I will see him in 3 months. Provider Impressions Status post surgery and radiation therapy for metastatic skin carcinoma. There is no evidence of any tumor recurrence. Gastroesophageal reflux disease and reflux laryngitis. He is on omeprazole 20 I told him to use it 40 in the morning before breakfast and also to add a Pepcid after dinner. I also gave him a list of instructions for dietary modifications. Impacted cerumen of the left ear which was addressed with a small instrument. I will see him in 3 months. 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 On December 21, 2017 he underwent surgical excision. He had excision of the skin, parotidectomy, and neck dissection. He was found to have more skin involvement than we thought. The pathology showed squamous cell carcinoma involving the parotid and adjacent tissues. The margins were negative. He also had 3 positive nodes. He completed his radiation therapy in February 2018. He had a TSH in October 2021 was normal. He also had a chest x-ray in every 2021 which was negative. He does have some issues with dysphagia. He eventually had a dilation but now has significant issues with gastroesophageal reflux disease and heartburn he seems to be managing. He also tends to accumulate wax in his ears. 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) Neck pain (723.1) (M54.2) Observation for suspected neoplasm (V71.1) (Z03.89) Skin cancer of face (173.30) (C44.300) Past Medical History History of malignant neoplasm (V10.90) (Z85.9) History of ulceration (V13.89) (Z87.898) History 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) Resolved Date: 06 Dec 2017 Surgical History History of Gastrointestinal Surgery History of Hernia Repair History of Hip Replacement History of Pacemaker Placement Family History Family history of Family history of MVA (motor vehicle accident) Family history of Family history of suicide (V17.0) (Z81.8) Social History Former consumption of alcohol (V11.3) (Z87.898) Lives with family Never a smoker Retired Allergies Penicillins Recorded By: Lissa Giordano; 12/06/2017 3:12:26 PM Current Meds Medication NameInstruction Eliquis 5 MG Oral Tablet Fluticasone Propionate 50 MCG/ACT Nasal Suspension Furosemide 20 MG Oral TabletTAKE 1 TABLET BY MOUTH EVERY DAY Latanoprost 0.005 % Ophthalmic Solution Lumigan 0.01 % Ophthalmic SolutionINSTILL 1 DROP INTO BOTH EYES AT BEDTIME Meclizine HCl - 25 MG Oral TabletTAKE 1/2 TO 1 TABLET BY MOUTH THREE TIMES DAILY NEEDED Metoprolol Tartrate 50 MG Oral Tablet Nystatin 304609 UNIT/ML Mouth/Throat Suspension Ondansetron 4 MG Oral Tablet DisintegratingTAKE 1 TABLET BY MOUTH THREE TIMES A DAY NEEDED Pantoprazole Sodium 40 MG Oral Tablet Delayed Release RadiaPlexRx External GelAPPLY A SMALL AMOUNT TO SKIN 3 TIMES A DAY DIRECTED, 1 APPLICATION Stool Softener 100 MG Oral Capsule Tamsulosin HCl - 0.4 MG Oral Capsule Tobramycin-Dexamethasone 0.3-0.1 % Ophthalmic SuspensionPLACE 1 DROP IN RIGHT EYE 3 TIMES A DAY Vitals Vital Signs Recorded: 04May2022 10:46AM Height6 ft Mspzvj529 lb 5 oz BMI Ruyfevridj56.69 kg/m2 BSA Calculated1.97 Tobacco Useb) No PHQ-2 #1. Over the last 2 weeks have you felt down, depressed or hopeless? (If yes, answer PHQ-9 below)No PHQ-2 #2. Over the last 2 weeks have you felt little interest or pleasure in doing things? (If yes, answer PHQ-9 below)No Falls Screening (Age 18+)a) No falls within the last year Pain Scale0/10 Physical Exam The ear examination is negative. Palpation of the parotid, neck, and thyroid field fails to show any worrisome masses or adenopathies. More specifically I cannot appreciate anything worrisome on the treatment side. Examination of (more content not included)... Normal Active Endpoints Tobacco Screening.on 022 Adult depression screening assessment No MG-Otolaryn go [employer] Work Phone: Fall risk assessment a) No falls within the last year MG-Otolaryngo [employer] Work Phone: Tobacco use status CPHS b) No MG-Otolaryngo [employer] Work Phone: CBC AUTO DIFFon 04-26-2022 BASO # 0.0 103/ul Normal 0.0-0.1 [facility] Comment on above: Performed By: #### C VDTB #### [facility] [address] [place] [address] Dr. Luis Manuel Ryan Basophils/100 WBC (Bld) 0.5 % Normal 0.2-2.0 [facility] Comment on above: Performed By: #### C VDTB #### [facility] [address] [place] [address] Dr. Luis Manuel Ryan EO # 0.1 103/ul Normal 0.0-0.7 [facility] Comment on above: Performed By: #### C VDTBH #### [facility] [address] [place] [address] Dr. Luis Manuel Ryan Eosinophils/100 WBC (Bld) 2.5 % Normal 0.9-7.0 [facility] Comment on above: Performed By: #### C VDTBH #### [facility] [address] [place] [address] Dr. Luis Manuel Ryan Erythrocyte distribution width (RBC) [Ratio] 14.9 % Normal 11.0-15.0 [facility] Comment on above: Performed By: #### C VDTBH #### [facility] [address] [place] [address] Dr. Luis Manuel Ryan Hematocrit (Bld) [Volume fraction] 29.8 % Critically low 42.0-54.0 [facility] Comment on above: Performed By: #### C VDTBH #### [facility] [address] [place] [address] Dr. Luis Manuel Ryan Hemoglobin (Bld) [Mass/Vol] 9.4 g/dL Critically low 14.0-18.0 [facility] Comment on above: Performed By: #### C VDTBH #### [facility] [address] [place] [address] Dr. Luis Manuel Ryan IG # 0.01 10e3/ul Normal 0.00-0.03 [facility] Comment on above: Performed By: #### C VDTBH #### [facility] [address] [place] [address] Dr. Luis Manuel Ryan IG % 0.2 % Normal 0.0-0.5 [facility] Comment on above: Performed By: #### C VDTBH #### [facility] [address] [place] [address] Dr. Luis Manuel Ryan LYMPH # 1.5 103/ul Normal 1.2-3.8 [facility] Comment on above: Performed By: #### C VDTBH #### [facility] [address] [place] [address] Dr. Luis Manuel Ryan Lymphocytes/100 WBC (Bld) 27.3 % Normal 20.5-60.0 [facility] Comment on above: Performed By: #### C VDTBH #### [facility] [address] [place] [address] Dr. Luis Manuel Ryan MANUAL DIFF REQ NO Normal [facility] Comment on above: Performed By: #### C VDTBH #### [facility] [address] [place] [address] Dr. Luis Manuel Ryan MCH (RBC) [Entitic mass] 26.3 pg Normal 25.9-34.0 [facility] Comment on above: Performed By: #### C VDTBH #### [facility] [address] [place] [address] Dr. Luis Manuel Ryan MCHC (RBC) [Mass/Vol] 31.5 g/dL Normal 29.9-35.2 [facility] Comment on above: Performed By: #### C VDTBH #### [facility] [address] [place] [address] Dr. Luis Manuel Ryan MCV (RBC) [Entitic vol] 83.5 fL Normal 80.0-94.0 [facility] Comment on above: Performed By: #### C VDTBH #### [facility] [address] [place] [address] Dr. Luis Manuel Ryan MONO # 0.6 103/ul Normal 0.3-0.8 [facility] Comment on above: Performed By: #### C VDTBH #### [facility] [address] [place] [address] Dr. Luis Manuel Ryan Monocytes/100 WBC (Bld) 10.0 % Normal 1.7-12.0 [facility] Comment on above: Performed By: #### C VDTBH #### [facility] [address] [place] [address] Dr. Luis Manuel Ryan NEUT # 3.3 103/ul Normal 1.4-6.5 [facility] Comment on above: Performed By: #### C VDTBH #### [facility] [address] [place] [address] Dr. Luis Manuel Ryan Neutrophils/100 WBC (Bld) 59.5 % Normal 43.0-75.0 [facility] Comment on above: Performed By: #### C VDTBH #### [facility] [address] [place] [address] Dr. Luis Manuel Ryan Platelet mean volume (Bld) [Entitic vol] 9.9 fL Normal 9.5-13.5 [facility] Comment on above: Performed By: #### C VDTBH #### [facility] [address] [place] [address] Dr. Luis Manuel yRan PLT 173 103/ul Normal 150-450 [facility] Comment on above: Performed By: #### C VDTBH #### [facility] [address] [place] [address] Dr. Luis Manuel Ryan RBC 3.57 106/ul Critically low 4.70-6.10 [facility] Comment on above: Performed By: #### C VDTBH #### [facility] [address] [place] [address] Dr. Luis Manuel Ryan WBC 5.6 103/ul Normal 4.0-11.0 [facility] Comment on above: Performed By: #### C VDTBH #### [facility] [address] [place] [address] Dr. Luis Manuel Ryan Covid-19 PCR ([facility])on SARS-CoV-2 (COVID-19) RNA LUIS+probe Ql (Unsp spec) Not detected Normal NOT DETECTED [facility] Comment on above: Result Comment: This test is not yet approved or cleared by the [place] FDA. When there are no FDA-approved or cleared tests available, and other criteria are met, FDA can make tests available under an emergency access mechanism called an Emergency Use Authorization (EUA). The EUA for this test is supported by the [place] of Health and Human Service's (HHS's) declaration that circumstances exist to justify the emergency use of in vitro diagnostics for the detection and/or diagnosis of the virus that causes COVID-19. This EUA will remain in effect (meaning this test can be used) for the duration of the COVID-19 declaration justifying emergency of IVDs, unless it is terminated or revoked by FDA (after which the test may no longer be used). When diagnostic testing is negative, the possibility of a false negative should be considered in the context of a patient's recent exposures and the presence of clinical signs and symptoms consistent with SARS-CoV-2. Performed By: #### C VDTB #### [facility] [address] [place] [address] Dr. Luis Manuel Ryan PROF CHEM 8 (BAS METB)on Anion gap [Moles/Vol] 11.4 mmol/L Normal [facility] Comment on above: Performed By: #### C MP #### [facility] [address] [place] [address] Dr. Luis Manuel Ryan Calcium [Mass/Vol] 8.5 mg/dL Normal 8.5-10.1 [facility] Comment on above: Performed By: #### C MP #### [facility] [address] [place] [address] Dr. Luis Manuel Ryan Chloride [Moles/Vol] 106 mmol/L Normal 98-107 [facility] Comment on above: Performed By: #### C MP #### [facility] [address] [place] [address] Dr. Luis Manuel Ryan CO2 [Moles/Vol] 28.6 mmol/L Normal 21.0-32.0 [facility] Comment on above: Performed By: #### C MP #### [facility] [address] [place] [address] Dr. Luis Manuel Ryan Creatinine [Mass/Vol] 1.01 mg/dL Normal 0.70-1.30 [facility] Comment on above: Performed By: #### C MP #### [facility] [address] [place] [address] Dr. Luis Manuel Ryan EGFR-AF CITIZEN OF [place] >60 Normal >=60 [facility] Comment on above: Performed By: #### C MP #### [facility] [address] [place] [address] Dr. Luis Manuel Ryan EGFR-NON AF CITIZEN OF [place] >60 Normal >=60 [facility] Comment on above: Performed By: #### C MP #### [facility] [address] [address] [address] Luis Manuel Ryan Glucose [Mass/Vol] 114 mg/dL Critically high 74-[address] [facility] Comment on above: Performed By: #### C MP #### [facility] [address] [address] [address] Luis Manuel Ryan Potassium [Moles/Vol] 4.0 mmol/L Normal 3.5-5.1 [facility] Comment on above: Performed By: #### C MP #### [facility] [address] [address] [address] Luis Manuel Ryan Sodium [Moles/Vol] 142 mmol/L Normal 136-145 [facility] Comment on above: Performed By: #### C MP #### [facility] [address] [address] [address] Luis Manuel Ryan Urea nitrogen [Mass/Vol] 14.0 mg/dL Normal 7.0-18.0 [facility] Comment on above: Performed By: #### C MP #### [facility] [address] [address] [address] Luis Manuel Ryan Urea nitrogen/Creatinine [Mass ratio] 13.9 mg/mg Normal [facility] Comment on above: Performed By: #### C MP #### [facility] [address] [address] [address] Luis Manuel Ryan PROTIMEon 04-26-2022 INR Coag (PPP) [Relative time] 1.05 {INR} Normal [facility] Comment on above: Performed By: #### P TT, PT #### [facility] [address] [address] [address] Luis Manuel Ryan INR GUIDELINES SEE BELOW Normal [facility] Comment on above: Result Comment: PHI RED INR: 2.0 - 3.0 CONDITIONS NOT LISTED BELOW 2.5 - 3.5 FOR PROSTHETIC HEART VALVE REPLACEMENT 2.5 - 3.5 RECURRENT THROMBOSIS Performed By: #### P TT, PT #### [facility] [address] [address] [address] Luis Manuel Ryan PT Coag (PPP) [Time] 11.3 s Normal 9.0-11.6 [facility] Comment on above: Performed By: #### P TT, PT #### [facility] [address] [address] [address] Luis Manuel Ryan PTTon 04-26-2022 aPTT Coag (Bld) [Time] 27.6 s Normal 22.3-36.2 [facility] Comment on above: Performed By: #### P TT, PT #### [facility] [address] [address] [address] Luis Manuel Ryan BASIC METABOLIC PANELon 07- Calcium [Mass/Vol] 8.7 mg/dL Normal 8.6-10.3 [facility] Comment on above: Performed By: #### 0 0071 #### [facility] [address] [place] [address], [place] Chloride [Moles/Vol] 105 mmol/L Normal 98-107 [facility] Comment on above: Performed By: #### 0 0071 #### [facility] [address] [place] [address], [place] CO2 [Moles/Vol] 24 mmol/L Normal 21-31 [facility] Comment on above: Performed By: #### 0 0071 #### [facility] [address] [place] [address], [place] Creatinine [Mass/Vol] 1.03 mg/dL Normal 0.70-1.30 [facility] Comment on above: Performed By: #### 0 0071 #### [facility] [address] [place] [address], [place] GFR/1.73 sq M.predicted among non-blacks MDRD (S/P/Bld) [Vol rate/Area] mL/min/{1.73_m2} Normal >60 [facility] Comment on above: Result Comment: The [facility]'s estimated glomerular filtration rate (eGFR) will no longer include consideration of race in its calculation. The National Kid[employer] Foundation's eGFR Task Force developed new recommendations for the estimation of the glomerular filtration rate in the [place] They recommend immediate implementation of the new equation refit without the race variable in all laboratories because the calculation does not include race. In addition to not including race in the calculation and reporting, it included diversity in its development, and has acceptable performance characteristics and potential consequences that do not disproportionately affect any one group of individuals. Performed By: #### 0 0071 #### [facility] [address] [place] [address], [facility] Glucose [Mass/Vol] 108 mg/dL High 70-100 [facility] Comment on above: Performed By: #### 0 0071 #### [facility] [address] [place] [address], [facility] Potassium [Moles/Vol] 4.2 mmol/L Normal 3.5-5.1 [facility] Comment on above: Performed By: #### 0 0071 #### [facility] [address] [facility] [place] [address], [facility] Sodium [Moles/Vol] 137 mmol/L Normal 136-145 [facility] Comment on above: Performed By: #### 0 0071 #### [facility] [address] [place] [address], [facility] Urea nitrogen [Mass/Vol] 15 mg/dL Normal 7-25 [facility] Comment on above: Performed By: #### 0 0071 #### [facility] [address] CBC COMPLETE BLOOD COUNTon 0 - Erythrocyte distribution width (RBC) [Ratio] 14.9 % Normal 11.5-15.0 [facility] Comment on above: Performed By: #### 5 0608 #### [facility] [address] Hematocrit (Bld) [Volume fraction] 33.6 % Low 39.0-50.0 [facility] Comment on above: Performed By: #### 5 0608 #### [facility] [address] [facility]. [address] Hemoglobin (Bld) [Mass/Vol] 10.2 g/dL Low 13.0-17.0 [facility] Comment on above: Performed By: #### 5 0608 #### [facility] [address] [facility]. [address] MCH (RBC) [Entitic mass] 26.0 pg Low 27.0-33.0 [facility] Comment on above: Performed By: #### 5 0608 #### [facility] [address] MCHC (RBC) [Mass/Vol] 30.4 g/dL Low 32.0-35.0 [facility] Comment on above: Performed By: #### 5 0608 #### [facility] [address] MCV (RBC) [Entitic vol] 85.5 fL Normal 82.0-98.0 [facility] Comment on above: Performed By: #### 5 0608 #### [facility] [address] Nucleated RBC/100 WBC (Bld) [Ratio] 0 % Normal 0-0 [facility] Comment on above: Performed By: #### 5 0608 #### [facility] [address] PLAT CNT 215 10*3/uL Normal 150-400 [facility] Comment on above: Performed By: #### 5 0608 #### [facility] [address] RBC (Bld) [#/Vol] 3.93 10*6/uL Low 4.20-5.70 [facility] Comment on above: Performed By: #### 5 0608 #### [facility] [address] [place] [address], [facility] WBC (Bld) [#/Vol] 6.36 10*3/uL Normal 4.00-10.60 [facility] Comment on above: Performed By: #### 5 0608 #### [facility] [address] [place] [address], [facility] Covid-19 PCR (CVDTB)on 03-27 SARS-CoV-2 (COVID-19) RNA LUIS+probe Ql (Unsp spec) Not detected Normal NOT DETECTED [facility] Comment on above: Result Comment: This test is not yet approved or cleared by the [place] FDA. When there are no FDA-approved or cleared tests available, and other criteria are met, FDA can make tests available under an emergency access mechanism called an Emergency Use Authorization (EUA). The EUA for this test is supported by the [place] of Health and Human Service's (HHS's) declaration that circumstances exist to justify the emergency use of in vitro diagnostics for the detection and/or diagnosis of the virus that causes COVID-19. This EUA will remain in effect (meaning this test can be used) for the duration of the COVID-19 declaration justifying emergency of IVDs, unless it is terminated or revoked by FDA (after which the test may no longer be used). When diagnostic testing is negative, the possibility of a false negative should be considered in the context of a patient's recent exposures and the presence of clinical signs and symptoms consistent with SARS-CoV-2. Performed By: #### C VDTB #### [facility] [address] [place] [address] Dr. Luis Manuel Ryan Covid-19 PCR (CVDTB)on 02-24 SARS-CoV-2 (COVID-19) RNA LUIS+probe Ql (Unsp spec) Not detected Normal NOT DETECTED [facility] Comment on above: Result Comment: This test is not yet approved or cleared by the [place] FDA. When there are no FDA-approved or cleared tests available, and other criteria are met, FDA can make tests available under an emergency access mechanism called an Emergency Use Authorization (EUA). The EUA for this test is supported by the [place] of Health and Human Service's (HHS's) declaration that circumstances exist to justify the emergency use of in vitro diagnostics for the detection and/or diagnosis of the virus that causes COVID-19. This EUA will remain in effect (meaning this test can be used) for the duration of the COVID-19 declaration justifying emergency of IVDs, unless it is terminated or revoked by FDA (after which the test may no longer be used). When diagnostic testing is negative, the possibility of a false negative should be considered in the context of a patient's recent exposures and the presence of clinical signs and symptoms consistent with SARS-CoV-2. Performed By: #### C MP #### [facility] [address] [place] [address] Dr. Luis Manuel Ryan PSA, FREE AND TOTAL RATIOon 03-04-2022 % Free PSA 20.7 % Normal [facility] Comment on above: Result Comment: The table below lists the probability of prostate cancer for men with non-suspicious LULU results and total PSA between 4 and 10 ng/mL, by patient age (José Miguel et al, RAN 1998, 279:1542). % Free PSA 50-64 yr 65-75 yr 0.00-10.00% 56% 55% 10.01-15.00% 24% 35% 15.01-20.00% 17% 23% 20.01-25.00% 10% 20% >25.00% 5% 9% Please note: José Miguel et al did not make specific recommendations regarding the use of percent free PSA for any other population of men. Performed By: #### C MP #### [facility] [address] [place] [address] [id number] [address] Luis Manuel Ryan Prostate specific Ag [Mass/Vol] 5.4 ng/mL Critically high 0.0-4.0 [facility] Comment on above: Result Comment: Hermila VARGAS methodology. . According to the [place] [employer], Serum PSA should decrease and remain at undetectable levels after radical prostatectomy. The AUA defines biochemical recurrence as an initial PSA value 0.2 ng/mL or greater followed by a subsequent confirmatory PSA value 0.2 ng/mL or greater. Values obtained with different assay methods or kits cannot be used interchangeably. Results cannot be interpreted as absolute evidence of the presence or absence of malignant disease. Performed By: #### C MP #### [facility] [address] [place] [address] Dr. Luis Manuel Ryan PSA, Free 1.12 ng/mL Normal N/A [facility] Comment on above: Result Comment: Hermila VARGAS methodology. Performed By: #### C MP #### [facility] [address] [place] [address] Dr. Luis Manuel Ryan CARDIAC JE ADMITon 022 CK [Catalytic activity/Vol] 67 U/L Normal 39-308 [facility] Comment on above: Performed By: #### C MP #### [facility] [address] [place] [address] Dr. Luis Manuel Ryan CK.MB [Mass/Vol] 1.68 ng/mL Normal <=3.60 [facility] Comment on above: Performed By: #### C MP #### [facility] [address] [place] [address] Dr. Luis Manuel Ryan HSTROP 16.2 pg/mL Normal 4.0-76.1 [facility] Comment on above: Result Comment: CUT- OFF POINTS HAVE BEEN ESTABLISHED BASED ON THE FOURTH UNIVERSAL DEFINITIONS OF MYOCARDIAL INFARCTION. THE UPPER REFERENCE LIMIT (URL) OF TROPONIN, DEFINED THE 99TH PERCENTILE OF cTnI DISTRIBUTION IN A REFERENCE POPULATION, HAS BEEN CONFIRMED THE DECISION THRESHOLD FOR [place] DIAGNOSIS. Performed By: #### C MP #### [facility] [address] [place] [address] Dr. Luis Manuel Ryan PAUL 269 ng/mL Critically high 16-96 [facility] Comment on above: Performed By: #### C MP #### [facility] [address] [place] [address] Dr. Luis Manuel Ryan CBC AUTO DIFFon 01-27-2022 BASO # 0.0 103/ul Normal 0.0-0.1 [facility] Comment on above: Performed By: #### C MP #### [facility] [address] [place] [address] Dr. Luis Manuel Ryan Basophils/100 WBC (Bld) 0.3 % Normal 0.2-2.0 [facility] Comment on above: Performed By: #### C MP #### [facility] [address] [place] [address] Dr. Luis Manuel Ryan EO # 0.2 103/ul Normal 0.0-0.7 [facility] Comment on above: Performed By: #### C MP #### [facility] [address] [place] [address] Dr. Luis Manuel Ryan Eosinophils/100 WBC (Bld) 2.8 % Normal 0.9-7.0 [facility] Comment on above: Performed By: #### C MP #### [facility] [address] [place] [address] Dr. Luis Manuel Ryan Erythrocyte distribution width (RBC) [Ratio] 14.5 % Normal 11.0-15.0 [facility] Comment on above: Performed By: #### C MP #### [facility] [address] [place] [address] Dr. Luis Manuel Ryan Hematocrit (Bld) [Volume fraction] 32.5 % Critically low 42.0-54.0 [facility] Comment on above: Performed By: #### C MP #### [facility] [address] [place] [address] Dr. Luis Manuel Ryan Hemoglobin (Bld) [Mass/Vol] 10.3 g/dL Critically low 14.0-18.0 [facility] Comment on above: Performed By: #### C MP #### [facility] [address] [place] [address] Dr. Luis Manuel Ryan IG # 0.02 10e3/ul Normal 0.00-0.03 [facility] Comment on above: Performed By: #### C MP #### [facility] [address] [place] [address] Dr. Luis Manuel Ryan IG % 0.3 % Normal 0.0-0.5 [facility] Comment on above: Performed By: #### C MP #### [facility] [address] [place] [address] Dr. Luis Manuel Ryan LYMPH # 0.9 103/ul Critically low 1.2-3.8 [facility] Comment on above: Performed By: #### C MP #### [facility] [address] [place] [address] Dr. Luis Manuel Ryan Lymphocytes/100 WBC (Bld) 15.5 % Critically low 20.5-60.0 [facility] Comment on above: Performed By: #### C MP #### [facility] [address] [place] [address] Dr. Luis Manuel Ryan MANUAL DIFF REQ NO Normal [facility] Comment on above: Performed By: #### C MP #### [facility] [address] [place] [address] Dr. Luis Manuel Ryan MCH (RBC) [Entitic mass] 29.9 pg Normal 25.9-34.0 [facility] Comment on above: Performed By: #### C MP #### [facility] [address] [place] [address] Dr. Luis Manuel Ryan MCHC (RBC) [Mass/Vol] 31.7 g/dL Normal 29.9-35.2 [facility] Comment on above: Performed By: #### C MP #### [facility] [address] [place] [address] Dr. Luis Manuel Ryan MCV (RBC) [Entitic vol] 94.2 fL Critically high 80.0-94.0 [facility] Comment on above: Performed By: #### C MP #### [facility] [address] [place] [address] Dr. Luis Manuel Ryan MONO # 0.5 103/ul Normal 0.3-0.8 [facility] Comment on above: Performed By: #### C MP #### [facility] [address] [place] [address] Dr. Luis Manuel Ryan Monocytes/100 WBC (Bld) 8.7 % Normal 1.7-12.0 [facility] Comment on above: Performed By: #### C MP #### [facility] [address] [place] [address] Dr. Luis Manuel Ryan NEUT # 4.4 103/ul Normal 1.4-6.5 [facility] Comment on above: Performed By: #### C MP #### [facility] [address] [address] [address] Luis Manuel Ryan Neutrophils/100 WBC (Bld) 72.4 % Normal 43.0-75.0 [facility] Comment on above: Performed By: #### C MP #### [facility] [address] [address] [address] Luis Manuel Ryan Platelet mean volume (Bld) [Entitic vol] 10.0 fL Normal 9.5-13.5 [facility] Comment on above: Performed By: #### C MP #### [facility] [address] [address] [address] Luis Manuel Ryan PLT 138 103/ul Critically low 150-[address] [facility] Comment on above: Performed By: #### C MP #### [facility] [address] [address] [address] Luis Manuel Ryan RBC 3.45 106/ul Critically low 4.70-6.10 [facility] Comment on above: Performed By: #### C MP #### [facility] [id number] Luis Manuel Ryan WBC 6.1 103/ul Normal 4.0-11.0 [facility] Comment on above: Performed By: #### C MP #### [facility] [address] [address] [address] HEAD WO CONon 01-27-2022 CT HEAD WO CON EXAM: CT HEAD WO CON CLINICAL INDICATION: DISORIENTATION, UNSPECIFIED COMPARISON: 11/05/2017 TECHNIQUE: Axial CT images of the brain were obtained without contrast. Dose reduction techniques were achieved by using automated exposure control and/or adjustment of mA and/or kV according to patient size and/or use of iterative reconstruction technique. FINDINGS: Brain parenchyma: No mass effect or midline shift is seen. Starr-white differentiation is maintained. No findings suspicious for intracranial hemorrhage. No findings suggesting acute stroke. Periventricular hypoattenuation / patchy white matter hypodensities are statistically most often related to small vessel ischemic disease. 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 Ventricles and extra-axial spaces: Ventricles are concordant with sulci. No findings suggesting hydrocephalus. Visualized paranasal sinuses: No findings suggesting acute sinusitis. Mastoid air cells: Clear. Included portions of the orbits:Included portions of the orbits with no evidence of fracture or other acute pathology. Bones: No fracture is seen. 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 2. No evidence for an acute intracranial hemorrhage or acute territorial infarct. Electronically authenticated by: ADAN ANGLIN Date: 2022-01-27 04:57 Normal [facility] PH VENOUS BLOODon 01-27-2022 PCO2 VENOUS 40.7 mmHg Normal 40.0-52.0 [facility] Comment on above: Performed By: #### P HVEN #### [facility] [address] [place] [address] Dr. Luis Manuel Ryan pH VENOUS 7.367 Normal 7.330-7.43 0 [facility] Comment on above: Performed By: #### P HVEN #### [facility] [address] [place] [address] Dr. Luis Manuel Ryan PROF 14(COMP METB)on 022 Albumin [Mass/Vol] 3.0 g/dL Critically low 3.4-5.0 [facility] Comment on above: Performed By: #### C MP #### [facility] [address] [place] [address] Dr. Luis Manuel Ryan Albumin/Globulin [Mass ratio] 1.0 {ratio} Normal [facility] Comment on above: Performed By: #### C MP #### [facility] [address] [place] [address] Dr. Luis Manuel Ryan ALP [Catalytic activity/Vol] 75 U/L Normal 46-116 [facility] Comment on above: Performed By: #### C MP #### [facility] [address] [address] [address] Luis Manuel Ryan ALT [Catalytic activity/Vol] 23 U/L Normal 16-63 [facility] Comment on above: Performed By: #### C MP #### [facility] [address] [address] [address] Luis Manuel Ryan Anion gap [Moles/Vol] 10.7 mmol/L Normal [facility] Comment on above: Performed By: #### C MP #### [facility] [address] [address] [address] Luis Manuel Ryan AST [Catalytic activity/Vol] 21 U/L Normal 15-37 [facility] Comment on above: Performed By: #### C MP #### [facility] [address] [address] [address] Luis Manuel Ryan Bilirubin [Mass/Vol] 0.9 mg/dL Normal 0.2-1.0 [facility] Comment on above: Performed By: #### C MP #### [facility] [address] [address] [address] Luis Manuel Ryan Calcium [Mass/Vol] 7.9 mg/dL Critically low 8.5-10.1 [facility] Comment on above: Performed By: #### C MP #### [facility] [address] [address] [address] Luis Manuel Ryan Chloride [Moles/Vol] 106 mmol/L Normal 98-107 [facility] Comment on above: Performed By: #### C MP #### [facility] [address] [address] [address] Luis Manuel Ryan CO2 [Moles/Vol] 24.3 mmol/L Normal 21.0-32.0 [facility] Comment on above: Performed By: #### C MP #### [facility] [address] [address] [address] Luis Manuel Ryan Creatinine [Mass/Vol] 1.00 mg/dL Normal 0.70-1.30 [facility] Comment on above: Performed By: #### C MP #### [facility] [address] [address] [address] Luis Manuel Ryan EGFR-AF CITIZEN OF [place] >60 Normal >=60 [facility] Comment on above: Performed By: #### C MP #### [facility] [address] [address] [address] Luis Manuel Ryan EGFR-NON AF CITIZEN OF [place] >60 Normal >=60 [facility] Comment on above: Performed By: #### C MP #### [facility] [address] [address] [address] Luis Manuel Ryan Globulin (S) [Mass/Vol] 2.9 g/dL Normal [facility] Comment on above: Performed By: #### C MP #### [facility] [address] [place] [address] Dr. Luis Manuel Ryan Glucose [Mass/Vol] 130 mg/dL Critically high 74-106 [facility] Comment on above: Performed By: #### C MP #### [facility] [address] [place] [address] Dr. Luis Manuel Ryan Potassium [Moles/Vol] 4.0 mmol/L Normal 3.5-5.1 [facility] Comment on above: Performed By: #### C MP #### [facility] [address] [place] [address] Dr. Luis Manuel Ryan Protein [Mass/Vol] 5.9 g/dL Critically low 6.1-8.2 [facility] Comment on above: Performed By: #### C MP #### [facility] [address] [place] [address] Dr. Luis Manuel Ryan Sodium [Moles/Vol] 137 mmol/L Normal 136-145 [facility] Comment on above: Performed By: #### C MP #### [facility] [address] [address] [address] Luis Manuel Ryan Urea nitrogen [Mass/Vol] 13.0 mg/dL Normal 7.0-18.0 [facility] Comment on above: Performed By: #### C MP #### [facility] [address] [address] [address] Luis Manuel Ryan Urea nitrogen/Creatinine [Mass ratio] 13.0 mg/mg Normal [facility] Comment on above: Performed By: #### C MP #### [facility] [address] [place] [address] Dr. Luis Manuel Ryan XR CHEST 1 Von 01-27-2022 XR CHEST 1 V EXAM: XR CHEST 1 V 01/27/2022 3:56 AM EDT [id number] CLINICAL STATEMENT: DISORIENTATION, UNSPECIFIED COMPARISON: 07/08/2021 TECHNIQUE: Single AP radiograph of the chest is submitted. FINDINGS: There is bilateral basilar atelectasis and/or airspace disease. Enlarged cardiac silhouette. Left-sided dual-chamber pacer. Mild left pleural effusion. No pneumothorax. The bony elements are unremarkable. IMPRESSION: Bilateral basilar atelectasis and/or airspace disease. Enlarged cardiac silhouette. Left-sided dual-chamber pacer. Mild left pleural effusion. FOLLOW-UP: Follow-up as clinically indicated. Electronically authenticated by: RENZO LÓPEZ Date: 2022-01-27 05:32 Normal [facility] CULTURE URINEon 01-20-2022 CULTURE URINE Culture Observations : No growth Normal [facility] Comment on above: Performed By: #### C VDTBH #### [facility] [address] [place] [address] Dr. Luis Manuel Ryan UA RANDOMon 01-20-2022 Bilirubin Ql (U) Negative Normal NEGATIVE [facility] Comment on above: Performed By: #### C VDTBH #### [facility] [address] [place] [address] Dr. Luis Manuel Ryan Clarity (U) CLEAR Normal CLEAR [facility] Comment on above: Performed By: #### C VDTBH #### [facility] [address] [place] [address] Dr. Luis Manuel Ryan Color (U) LT. YELLOW Normal YELLOW [facility] Comment on above: Performed By: #### C VDTBH #### [facility] [address] [place] [address] Dr. Luis Manuel Ryan Glucose Ql (U) Negative Normal NEGATIVE [facility] Comment on above: Performed By: #### C VDTBH #### [facility] [address] [place] [address] Dr. Luis Manuel Ryan Hemoglobin Ql (U) SMALL Abnormal NEGATIVE [facility] Comment on above: Performed By: #### C VDTBH #### [facility] [address] [place] [address] Dr. Luis Manuel Ryan Ketones Ql (U) Negative Normal NEGATIVE [facility] Comment on above: Performed By: #### C VDTBH #### [facility] [address] [place] [address] Dr. Luis Manuel Ryan LEUKOCYTES Negative Normal NEGATIVE [facility] Comment on above: Performed By: #### C VDTBH #### [facility] [address] [address] [address] Luis Manuel Ryan Nitrite Ql (U) Negative Normal NEGATIVE [facility] Comment on above: Performed By: #### C VDTBH #### [facility] [address] [place] [address] Dr. Luis Manuel Ryan pH (U) 6.0 [pH] Normal 5-9 [facility] Comment on above: Performed By: #### C VDTBH #### [facility] [address] [place] [address] Dr. Luis Manuel Ryan SPEC GRAVITY 1.010 Normal 1.005-<=1. 025 [facility] Comment on above: Performed By: #### C VDTBH #### [facility] [address] [place] [address] Dr. Luis Manuel Ryan UA PROTEIN Negative Normal NEGATIVE/ TRACE [facility] Comment on above: Performed By: #### C VDTBH #### [facility] [address] [place] [address] Dr. Luis Manuel Ryan Urobilinogen Qn (U) 0.2 {Rambo'U}/dL Normal 0.2 - 1. 0 [facility] Comment on above: Performed By: #### C VDTBH #### [facility] [address] [place] [address] Dr. 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 There is no evidence of any tumor recurrence. Dysphagia which seems to be fairly minimal. The patient is adjusting to that. Impacted cerumen of the left ear which was addressed with a small instrument. I will see him in 6 months. Provider Impressions Status post surgery and radiation therapy for metastatic skin carcinoma. There is no evidence of any tumor recurrence. Dysphagia which seems to be fairly minimal. The patient is adjusting to that. Impacted cerumen of the left ear which was addressed with a small instrument. I will see him in 6 months. 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 On December 21, 2017 he underwent surgical excision. He had excision of the skin, parotidectomy, and neck dissection. He was found to have more skin involvement than we thought. The pathology showed squamous cell carcinoma involving the parotid and adjacent tissues. The margins were negative. He also had 3 positive nodes. He completed his radiation therapy in February 2018. He had a TSH in June 2020 was normal. He also had a chest x-ray in June 2020 which was negative. He does have some issues with dysphagia. He seems to be managing. He also tends to accumulate wax in his ears. 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) Neck pain (723.1) (M54.2) Observation for suspected neoplasm (V71.1) (Z03.89) Skin cancer of face (173.30) (C44.300) Past Medical History History of malignant neoplasm (V10.90) (Z85.9) History of ulceration (V13.89) (Z87.898) History 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) Resolved Date: 06 Dec 2017 Surgical History History of Gastrointestinal Surgery History of Hernia Repair History of Hip Replacement History of Pacemaker Placement Family History Family history of Family history of MVA (motor vehicle accident) Family history of Family history of suicide (V17.0) (Z81.8) Social History Former consumption of alcohol (V11.3) (Z87.898) Lives with family Never a smoker Retired Allergies Penicillins Recorded By: Lissa Giordano; 12/06/2017 3:12:26 PM Current Meds Medication NameInstruction Eliquis 5 MG Oral Tablet Fluticasone Propionate 50 MCG/ACT Nasal Suspension Furosemide 20 MG Oral TabletTAKE 1 TABLET BY MOUTH EVERY DAY Latanoprost 0.005 % Ophthalmic Solution Lumigan 0.01 % Ophthalmic SolutionINSTILL 1 DROP INTO BOTH EYES AT BEDTIME Meclizine HCl - 25 MG Oral TabletTAKE 1/2 TO 1 TABLET BY MOUTH THREE TIMES DAILY NEEDED Metoprolol Tartrate 50 MG Oral Tablet Nystatin 135974 UNIT/ML Mouth/Throat Suspension Ondansetron 4 MG Oral Tablet DisintegratingTAKE 1 TABLET BY MOUTH THREE TIMES A DAY NEEDED Pantoprazole Sodium 40 MG Oral Tablet Delayed Release RadiaPlexRx External GelAPPLY A SMALL AMOUNT TO SKIN 3 TIMES A DAY DIRECTED, 1 APPLICATION Stool Softener 100 MG Oral Capsule Tamsulosin HCl - 0.4 MG Oral Capsule Tobramycin-Dexamethasone 0.3-0.1 % Ophthalmic SuspensionPLACE 1 DROP IN RIGHT EYE 3 TIMES A DAY Vitals Vital Signs Recorded: [id number] 10:21AM Fafsmoqshxe26.7 F Height6 ft Idegkj656 lb BMI Kbzamvyjra25.14 kg/m2 BSA Calculated2.03 Tobacco Useb) No Fall Screeningb) One or more falls in the last year Pain Scale0/10 Physical Exam The ear examination is negative. Palpation of the parotid, neck, and thyroid field fails to show any worrisome masses or adenopathies. More specifically I cannot appreciate anything worrisome on the treatment side. Examination of the oral cavity and oropharynx is negative. He does have significant dryness with significant thickening of his swallowing. A flexible laryngoscopy was carried out. Under topical Xylocaine and Kush-Synephrine the scope was introduced through the nostril. The nasopharynx, base of tongue, hypopharynx, and larynx are visualized. The vocal cords are normally mobile. There is pooling of secretions in the piriform sinuses. There is no evidence of any mucosal lesions. The ear examination shows some impacted (more content not included)... Normal [facility] 11-03-2021 XR Chest 2 Views Please click on the link to view the study images Normal [facility]tol[facility] [employer] Work Phone: XR Chest 2 Views Normal [facility]-Otola ryngo [employer] Work Phone: TSH - Thyroid Stimulating Ho rmone, Serumon 11-03-2021 TSH Qn 2.24 m[IU]/L See Below [facility]Otolaryng o [employer] Work Phone: Comment on above: Reference Range: 0.4 4 - 3.98 TSH testing is performed using different testing methodology at [facility] than at other [facility]. Direct result comparisons should only be made within the same method. Tobacco Screening.on 022 Fall risk assessment b) One or more fall s in the last year [facility] [employer] Work Phone: Tobacco use status [facility]PH[facility] b) No [facility]aryng[facility] [employer] Work Phone: Cardiovascular Lab Reporton 09-10-2021 Cardiovascular Lab Report [facility] Patient Name: Bravo Arce [facility] Rose Mary MR #: [id number] Department of Physician: Rose Marie Lambert MD Medicine Service Date: 09/10/2021 Division of Birthdate: 1940 Cardiology Room #: Adult Cardiovascular Services [address] [place] [id number] Cardiovascular Laboratory Report PACEMAKER GENERATOR CHANGE POCKET REVISION PROCEDURE NOTE DATE OF PROCEDURE: 09/10/2021 PERFORMING PHYSICIAN: Dr. Rose Marie Lambert CONSENT: Patient LOCATION: EP Lab PROCEDURE PERFORMED: 1. Implant of new pacemaker generator (Fontaine/[employer] Ankush). 2. Explant of pacemaker generator (Fontaine/ [employer] Ankush). 3. Pocket Revision. INDICATIONS: 1. S/p PPM with underlying chronic AF and RVR. 2. Device at EOL PROCEDURAL SEDATION: Versed and Fentanyl. Moderate sedation was administered by the sedation nurse under my supervision and noted in the CVL log. Intraprocedural face to face sedation time: 31min. Monitoring: Cardiac telemetry, Blood pressure, continuous pulse oxymetry. 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 He had a [employer] Ankush Fontaine device placed. The patient has been known to have approximately 50% ventricular pacing and very few episodes of rapid ventricular rate with device programmed as VVIR. Hence, a decision was made to just proceed with a generator change as last EF 12/10/2020 was normal. PROCEDURAL DETAILS: Patient was placed in supine position and I decided to proceed with opening of the pocket. Local infiltration of 1% Lidocaine was performed, and an incision was created in the left upper chest over the previous incision scar. Dissection was then performed using cautery down to the capsule of the previously implanted pacemaker device. Capsulotomy was performed and the device was exteriorized. Once the lead was freed after dissection, unhealthy tissue was removed. The leads were then attached to a new Fontaine/ [employer] Ankush pacemaker generator and the leads tug tested. Pocket hemostasis was secured and it was then copiously and vigorously irrigated with antibiotic solution. The leads were wrapped under the device and the device was placed in the pocket and tacked to underlying muscle. The pocket was closed in layers: muscular and subcutaneous layer using 2-0 Vicryl and subcuticular using 3-0 Biosyn absorbable monofilament suture. Glue was applied and dressing was placed on top. Lead parameters were then rechecked through the device as noted below. Device info: [employer] Ank[employer] Fontaine Assurity model Serial #[id number] RAlead: Implanted on 10/19/[address] Optim 1888TC-52 cms Serial # [id number] Sensing: Afib Threshold: NA Impedance: NA RV lead: Implanted on 10/19/[address] Optim 1888TC-58 cms Serial # [id number] Sensin mV Threshold: 0.875 @ 0.5 millisecond Impedance: 390 Ohms Device removed: Implanted on 10/19/[address] [employer] Ank[employer] Fontaine Accent Model DR RF 2210 Serial #[id number] POST PROCEDURE EXAM: Patient was hemodynamically stable. COMPLICATIONS: None. ESTIMATED BLOOD LOSS: 5cc IMPRESSION: 1. Successful generator change with excellent pacing and sensing parameters, 2. Explant of previously implanted generator. RECOMMENDATIONS: 1. Dressing to be removed after 2 weeks 2. Do not wet the incision for 7 days 3. F/u in device clinic 2 weeks from discharge or sooner for any concerns 4. No heavy lifting for 1 week. 5. Follow up in EP clinic in 1 month. 6. Continue anticoagulation. Rose Marie Lambert MD Cardiac Electrophysiology Electronically Signed by: Rose Marie Lambert MD 09/30/2021 01:36 P Rose Marie Lambert MD Date Dict: 09/10/2021/01:29 P/Rose Marie Lambert MD Date Trans: 09/10/2021 02:11 P/kostas [id number] Normal [facility] Tobacco Screening.on Fall risk assessment b) One or more fall s in the last year [facility] Work Phone: Tobacco use status [facility] b) No [facility] Work Phone: Tobacco Screening.on Fall risk assessment a) No falls within the last year [facility] Work Phone: Tobacco use status [facility] b) No [facility] Work Phone: Tobacco Screening.on Fall risk assessment a) No falls within the last year [facility] Work Phone: Tobacco use status [facility] b) No [facility] Work Phone: Vital Signs Date Time Vital Sign Value Performing Clinician Niranjan richardson 07-03-2025 10:19-0400 Body height 180.3 cm [facility] Work Phone: [facility] 07-03-2025 10:19-0400 Body mass index (BMI) [Ratio] 21.2 kg/m2 [facility] Work Phone: [facility] 07-03-2025 10:19-0400 Body weight 68.95 kg [facility] [employer] Work Phone: [facility] 07-01-2025 09:48-0400 Body height 182.88 cm Mylene Dunn MD Work Phone: [facility] 07-01-2025 09:48-0400 Body mass index (BMI) [Ratio] 21.2 kg/m2 Mylene Dunn MD Work Phone: [facility] 07-01-2025 09:48-0400 Body weight 70.93 kg Mylene Dunn MD Work Phone: [facility] 07-01-2025 09:48-0400 Diastolic blood pressure 72 mm[Hg] Mylene Dunn MD Work Phone: [facility] 07-01-2025 09:48-0400 Heart rate 58 /min Mylene Dunn MD Work Phone: [facility] 07-01-2025 09:48-0400 Systolic blood pressure 128 mm[Hg] Mylene Dunn MD Work Phone: [facility] 06-06-2025 13:01-0400 Body height 182.88 cm Mylene Dunn MD Work Phone: [facility] 06-06-2025 13:01-0400 Body mass index (BMI) [Ratio] 21.4 kg/m2 Mylene Dunn MD Work Phone: [facility] 06-06-2025 13:01-0400 Body weight 71.78 kg Mylene Dunn MD Work Phone: [facility] 06-06-2025 13:01-0400 Diastolic blood pressure 78 mm[Hg] Mylene Dunn MD Work Phone: [facility] 06-06-2025 13:01-0400 Heart rate 59 /min Mylene Dunn MD Work Phone: [facility] 06-06-2025 13:01-0400 Systolic blood pressure 143 mm[Hg] Mylene Dunn MD Work Phone: [facility] 05-21-2025 09:43-0400 Body height 182.9 cm Mary Blount MD Work Phone: [facility] 05-21-2025 09:43-0400 Body mass index (BMI) [Ratio] 21.59 kg/m2 Mary Blount MD Work Phone: [facility] 05-21-2025 09:43-0400 Body temperature 95.5 [degF] Mary Blount MD Work Phone: [facility] 05-21-2025 09:43-0400 Body weight 72.2 kg Mary Blount MD Work Phone: [facility] 05-21-2025 09:43-0400 Diastolic blood pressure 88 mm[Hg] Mary Blount MD Work Phone: [facility] 05-21-2025 09:43-0400 Systolic blood pressure 136 mm[Hg] Mary Blount MD Work Phone: [facility] 04-23-2025 09:33-0400 Diastolic blood pressure 84 mm[Hg] Heber Gonzalez MD [facility] 04-23-2025 09:33-0400 Systolic blood pressure 143 mm[Hg] Heber Gonzalez MD [facility] 04-09-2025 13:31-0400 Body height 180.3 cm Jason Villatoro DO Work Phone: [facility] 04-09-2025 13:31-0400 Body mass index (BMI) [Ratio] 20.5 kg/m2 Jason Villatoro DO Work Phone: [facility] 04-09-2025 13:31-0400 Body weight 66.68 kg Jason Villatoro DO Work Phone: [facility] 04-01-2025 09:56-0400 Body height 182.88 cm Mylene Dunn MD Work Phone: [facility] 04-01-2025 09:56-0400 Body mass index (BMI) [Ratio] 21.9 kg/m2 Mylene Dunn MD Work Phone: [facility] 04-01-2025 09:56-0400 Body weight 73.53 kg Mylene Dunn MD Work Phone: [facility] 04-01-2025 09:56-0400 Diastolic blood pressure 73 mm[Hg] Mylene Dunn MD Work Phone: [facility] 04-01-2025 09:56-0400 Heart rate 76 /min Mylene Dunn MD Work Phone: [facility] 04-01-2025 09:56-0400 Respiratory rate 12 /min Mylene Dunn MD Work Phone: [facility] 04-01-2025 09:56-0400 SaO2% (BldA) [Mass fraction] 98 % Mylene Dunn MD Work Phone: [facility] 04-01-2025 09:56-0400 Systolic blood pressure 118 mm[Hg] Mylene Dunn MD Work Phone: [facility] 03-19-2025 11:13-0400 Body height 182.9 cm Mary Blount MD Work Phone: [facility] 03-19-2025 11:13-0400 Body mass index (BMI) [Ratio] 20.93 kg/m2 Mary Blount MD Work Phone: [facility] 03-19-2025 11:130400 Body temperature 96.8 [degF] Mary Blount MD Work Phone: [facility] 03-19-2025 11:130400 Body weight 70 kg Mary Blount MD Work Phone: [facility] 03-19-2025 11:13-0400 Diastolic blood pressure 68 mm[Hg] Mary Blount MD Work Phone: [facility] 03-19-2025 11:130400 Systolic blood pressure 128 mm[Hg] Mary Blount MD Work Phone: [facility] 02-27-2025 10:37-0400 Body height 180.3 cm [facility] Work Phone: [facility] 02-27-2025 10:37-0400 Body mass index (BMI) [Ratio] 20.5 kg/m2 [employer] Work Phone: [facility] 02-27-2025 10:37-0400 Body weight 66.68 kg [employer] PA Work Phone: [facility] 02-05-2025 10:31-0400 Body height 182.88 cm Monty Rubio DO Work Phone: [facility] 02-05-2025 10:31-0400 Body mass index (BMI) [Ratio] 20.9 kg/m2 Monty Naifjoellensaulodilma DO Work Phone: [facility] 02-05-2025 10:31-0400 Body weight 70.08 kg Monty Barryno DO Work Phone: [facility] 02-05-2025 10:31-0400 Diastolic blood pressure 71 mm[Hg] Monty Rubio DO Work Phone: [facility] 02-05-2025 10:31-0400 Heart rate 72 /min Monty Rubio DO Work Phone: [facility] 02-05-2025 10:31-0400 Systolic blood pressure 112 mm[Hg] Monty Rubio DO Work Phone: [facility] 01-22-2025 10:27-0400 Body height 182.9 cm Manny Parra MD Work Phone: [facility] 01-22-2025 10:27-0400 Body mass index (BMI) [Ratio] 20.75 kg/m2 Manny Parra MD Work Phone: [facility] 01-22-2025 10:27-0400 Body weight 69.4 kg Manny Parra MD Work Phone: [facility] 12-20-2024 14:12-0400 Blood Pressure Location Ric Martinez [facility] 12-20-2024 14:12-0400 Diastolic blood pressure 70 mm[Hg] Ric Juan [facility] 12-20-2024 14:12-0400 Heart rate 93 /min Ric Martinez [facility] 12-20-2024 14:12-0400 Respiratory rate 16 /min Ric Martinez [facility] 12-20-2024 14:12-0400 SaO2% (BldA) [Mass fraction] 89 % Ric Martinez [facility] 12-20-2024 14:12-0400 Systolic blood pressure 102 mm[Hg] Ric Martinez [facility] 12-20-2024 13:01-0400 Body height 180.3 cm Jason Villatoro DO Work Phone: [facility] 12-20-2024 13:01-0400 Body mass index (BMI) [Ratio] 20.5 kg/m2 Jason Villatoro DO Work Phone: [facility] 12-20-2024 13:01-0400 Body weight 66.68 kg Jason Villatoro DO Work Phone: [facility] 12-04-2024 09:51-0400 Diastolic blood pressure 73 mm[Hg] Heber Gonzalez MD [facility] 12-04-2024 09:51-0400 Systolic blood pressure 122 mm[Hg] Heber Gonzalez MD [facility] 12-03-2024 14:26-0400 Body height 182.88 cm Monty Kirkpatrickuono DO Work Phone: [facility] 12-03-2024 14:26-0400 Body mass index (BMI) [Ratio] 19.6 kg/m2 Monty Kirkpatrickuono DO Work Phone: [facility] 12-03-2024 14:26-0400 Body weight 65.77 kg Monty Reddyno DO Work Phone: [facility] 12-03-2024 14:26-0400 Diastolic blood pressure 62 mm[Hg] Monty Kirkpatrickuono DO Work Phone: [facility] 12-03-2024 14:26-0400 Heart rate 83 /min Monty Kirkpatrickuono DO Work Phone: [facility] 12-03-2024 14:26-0400 Systolic blood pressure 91 mm[Hg] Monty Kirkpatrickuono DO Work Phone: [facility] 11-30-2024 06:27-0500 Body temperature 98 [degF] Monty Kirkpatrickuono DO Work Phone: [facility] 11-30-2024 06:27-0500 Diastolic blood pressure 72 mm[Hg] Monty Kirkpatrickuono DO Work Phone: [facility] 11-30-2024 06:27-0500 Heart rate 89 /min Monty Kirkpatrickuono DO Work Phone: [facility] 11-30-2024 06:27-0500 Respiratory rate 14 /min Monty Kirkpatrickuono DO Work Phone: [facility] 11-30-2024 06:27-0500 SaO2% (BldA) [Mass fraction] 97 % Monty Kirkpatrickuono DO Work Phone: [facility] 11-30-2024 06:27-0500 Systolic blood pressure 107 mm[Hg] Monty Kirkpatrickuono DO Work Phone: [facility] 11-30-2024 06:26-0500 Body weight 62.9 kg Monty Kirkpatrickuono DO Work Phone: [facility] 11-28-2024 11:12-0500 Body height 182.88 cm Monty Reddyno DO Work Phone: [facility] 11-23-2024 00:00-0500 Inhaled oxygen flow rate 1 L/min Monty Kirkpatrickuono DO Work Phone: [facility] 11-22-2024 02:18-0500 Inhaled oxygen concentration 97 % Monty Kirkpatrickuono DO Work Phone: [facility] 11-18-2024 11:40-0500 Body temperature 98 [degF] Monty Kirkpatrickuono DO Work Phone: [facility] 11-18-2024 11:40-0500 Diastolic blood pressure 77 mm[Hg] Monty Kirkpatrickuono DO Work Phone: [facility] 11-18-2024 11:40-0500 Heart rate 69 /min Monty Kirkpatrickuono DO Work Phone: [facility] 11-18-2024 11:40-0500 Inhaled oxygen flow rate 1 L/min Monty Kirkpatrickuono DO Work Phone: [facility] 11-18-2024 11:40-0500 Respiratory rate 18 /min Monty Kirkpatrickuono DO Work Phone: [facility] 11-18-2024 11:40-0500 SaO2% (BldA) [Mass fraction] 98 % Monty Kirkpatrickuono DO Work Phone: [facility] 11-18-2024 11:40-0500 Systolic blood pressure 106 mm[Hg] Monty Reddyno DO Work Phone: [facility] 11-17-2024 05:32-0500 Body weight 59.8 kg Monty Reddyno DO Work Phone: [facility] 11-16-2024 10:59-0500 Body height 182.88 cm Monty Reddyno DO Work Phone: [facility] 11-10-2024 20:53-0500 Body temperature 98.6 [degF] Monty Reddyno DO Work Phone: [facility] 11-10-2024 19:19-0500 Diastolic blood pressure 65 mm[Hg] Monty Reddyno DO Work Phone: [facility] 11-10-2024 19:19-0500 Heart rate 106 /min Monty Reddyno DO Work Phone: [facility] 11-10-2024 19:19-0500 Respiratory rate 18 /min Monty Reddyno DO Work Phone: [facility] 11-10-2024 19:19-0500 SaO2% (BldA) [Mass fraction] 95 % Monty Reddyno DO Work Phone: [facility] 11-10-2024 19:19-0500 Systolic blood pressure 137 mm[Hg] Monty Reddyno DO Work Phone: [facility] 11-10-2024 16:07-0500 Body height 182.88 cm Monty Reddyno DO Work Phone: [facility] 11-10-2024 16:07-0500 Body weight 67.4 kg Monty Reddyno DO Work Phone: [facility] 11-02-2024 07:16-0500 Body temperature 96.8 [degF] Jason Soliz DO Work Phone: [facility] 11-02-2024 07:16-0500 Diastolic blood pressure 92 mm[Hg] Jason Soliz DO Work Phone: [facility] 11-02-2024 07:16-0500 Heart rate 89 /min Jason Soliz DO Work Phone: [facility] 11-02-2024 07:16-0500 Respiratory rate 18 /min Jason Soliz DO Work Phone: [facility] 11-02-2024 07:16-0500 SaO2% (BldA) [Mass fraction] 94 % Jason Soliz DO Work Phone: [facility] 11-02-2024 07:16-0500 Systolic blood pressure 135 mm[Hg] Jason Soliz DO Work Phone: [facility] 11-02-2024 06:00-0500 Body mass index (BMI) [Ratio] 20.94 kg/m2 Jason Soliz DO Work Phone: [facility] 11-02-2024 06:00-0500 Body weight 72 kg Jason Soliz DO Work Phone: [facility] 10-25-2024 13:11-0500 Body temperature 37 Jason Soliz DO Work Phone: [facility] 10-25-2024 13:11-0500 SaO2% (BldA) [Mass fraction] 98 % Jason Soliz DO Work Phone: [facility] 10-25-2024 13:08-0500 Body temperature 37.0 degrees Celsius [facility] Comment on above: Performed By: #### [id number] #### JAN Allen ([id number]) [facility] ([facility]) [address] [place] [address] 10-25-2024 13:08-0500 SaO2% (BldA) [Mass fraction] 98 % [facility] Comment on above: Performed By: #### [id number] #### JAN Allen ([id number]) [facility] ([facility]) [address] [place] [address] 10-24-2024 13:15-0500 Body temperature 37 Jason Soliz DO Work Phone: [facility] 10-24-2024 13:15-0500 SaO2% (BldA) [Mass fraction] 100 % Jason Soliz DO Work Phone: [facility] 10-24-2024 13:10-0500 Body temperature 37.0 degrees Celsius [facility] Comment on above: Performed By: #### [id number] #### JAN Allen ([id number]) [facility] ([facility]) [address] [place] [address] 10-24-2024 13:10-0500 SaO2% (BldA) [Mass fraction] 100 % [facility] Comment on above: Performed By: #### [id number] #### JAN Allen ([id number]) [facility] ([facility]) [address] [place] [address] 10-24-2024 12:00-0500 Body height 185.4 cm Jason Soliz DO Work Phone: [facility] 10-24-2024 10:37-0500 Body temperature 37 Jason Soliz DO Work Phone: [facility] 10-24-2024 10:27-0500 Body temperature 37.0 degrees Celsius [facility] Comment on above: Order Comment: Sample type changed from arterial to venous to reflect order. Performed By: #### 2 [id number] #### JAN Allen ([id number]) [facility] ([facility]) [id number] [place] [id number] 10-24-2024 07:08-0500 FIO2 40 1 [facility] 10-24-2024 07:08-0500 [facility] Comment on above: Result Comment: assessed pt, pt is intub ated with slight sedation....pt does follows all commands 10-24-2024 07:08-0500 Promise to Return [facility] 10-24-2024 07:08-0500 SaO2% (BldA) [Mass fraction] 94 % [facility] 10-24-2024 07:00-0500 Blood Pressure Location [facility] 10-24-2024 07:00-0500 Body temperature 98.06 [degF] [facility] 10-24-2024 07:00-0500 Mean blood pressure 92 mm[Hg] [facility] 10-24-2024 07:00-0500 Respiratory rate 24 /min [facility] 10-24-2024 07:00-0500 Systolic blood pressure 117 mm[Hg] [facility] 10-24-2024 06:40-0500 Diastolic blood pressure 79 mm[Hg] [facility] 10-24-2024 06:40-0500 Heart rate 96 /min [facility] 10-24-2024 06:40-0500 Mean blood pressure 84 mm[Hg] [facility] 10-24-2024 06:40-0500 SaO2% (BldA) [Mass fraction] 94 % [facility] 10-24-2024 06:40-0500 Systolic blood pressure 106 mm[Hg] [facility] 10-24-2024 06:30-0500 Diastolic blood pressure 76 mm[Hg] [facility] 10-24-2024 06:30-0500 Heart rate 91 /min [facility] 10-24-2024 06:30-0500 Mean blood pressure 93 mm[Hg] [facility] 10-24-2024 06:30-0500 Respiratory rate 22 /min [facility] 10-24-2024 06:30-0500 Systolic blood pressure 109 mm[Hg] [facility] 10-24-2024 06:20-0500 Respiratory rate 19 /min [facility] 10-24-2024 06:00-0500 [facility] 10-24-2024 06:00-0500 Promise to Return [facility] 10-24-2024 05:00-0500 Hour[facility] 10-24-2024 05:00-0500 Promise to Return [facility] 10-24-2024 04:48-0500 Heart rate 98 /min [facility] 10-24-2024 04:48-0500 Respiratory rate 16 /min [facility] 10-24-2024 04:16-0500 FIO2 40 1 [facility] 10-24-2024 04:00-0500 Body temperature 99.32 [degF] [facility] 10-24-2024 03:10-0500 SaO2% (BldA) [Mass fraction] 96.0 % [facility] 10-24-2024 01:10-0500 Body temperature 99.14 [degF] [facility] 10-24-2024 00:40-0500 FIO2 50 1 [facility] 10-24-2024 00:10-0500 SaO2% (BldA) [Mass fraction] 98.3 % [facility] 10-23-2024 23:57-0500 Blood Pressure Location [facility] 10-23-2024 23:57-0500 Heart rate 115 /min [facility] 10-23-2024 23:57-0500 Respiratory rate 23 /min [facility] 10-23-2024 23:23-0500 Heart rate 113 /min [facility] 10-23-2024 23:00-0500 Respiratory rate 24 /min [facility] 10-23-2024 20:19-0500 Mean blood pressure 94 mm[Hg] [facility] 10-23-2024 16:38-0500 Mean blood pressure 94 mm[Hg] [facility] 10-23-2024 12:56-0500 Heart rate 120 /min [facility] 10-21-2024 16:00-0500 Body temperature 98.96 [degF] [facility] 10-21-2024 12:00-0500 Body temperature 99.5 [degF] [facility] 10-21-2024 08:00-0500 Body temperature 98.6 [degF] [facility] 10-20-2024 05:33-0500 SaO2% (BldA) [Mass fraction] 96.0 % [facility] 10-19-2024 22:00-0500 Body temperature 99.86 [degF] [facility] 10-19-2024 13:30-0500 Body temperature 97.52 [degF] [facility] 10-19-2024 12:55-0500 Body temperature 97.16 [degF] [facility] 10-19-2024 12:15-0500 ETCO2 Monitoring [facility] 10-19-2024 12:00-0500 ETCO2 Monitoring [facility] 10-19-2024 11:05-0500 gluc 118 mg/dL [facility] 10-19-2024 10:57-0500 gluc 118 mg/dL [facility] 10-19-2024 10:52-0500 Body temperature 94.46 [degF] [facility] 10-19-2024 10:52-0500 Heart rate 93 /min [facility] 08-07-2024 10:30-0500 Body height 187.96 cm [facility] 08-07-2024 10:30-0500 Body mass index (BMI) [Ratio] 20.5 kg/m2 [facility] 08-07-2024 10:30-0500 Body weight 72.57 kg [facility] 08-07-2024 10:30-0500 Diastolic blood pressure 88 mm[Hg] [facility] 08-07-2024 10:30-0500 Heart rate 71 /min [facility] 08-07-2024 10:30-0500 Systolic blood pressure 147 mm[Hg] [facility] 07-13-2024 10:50-0400 Diastolic blood pressure 77 mm[Hg] [facility] 07-13-2024 10:50-0400 Heart rate 69 /min [facility] 07-13-2024 10:50-0400 Systolic blood pressure 128 mm[Hg] [facility] 07-13-2024 10:49-0400 Body height 187.96 cm [facility] 07-13-2024 10:49-0400 Body mass index (BMI) [Ratio] 20.1 kg/m2 [facility] 07-13-2024 10:49-0400 Body weight 71.21 kg [facility] 07-11-2024 14:13-0400 Blood Pressure Location Ric Martinez [facility] 07-11-2024 14:13-0400 Diastolic blood pressure 84 mm[Hg] Ric Martinez [facility] 07-11-2024 14:13-0400 Heart rate 94 /min Ric Martinez [facility] 07-11-2024 14:13-0400 Respiratory rate 16 /min Ric Martinez [facility] 07-11-2024 14:13-0400 SaO2% (BldA) [Mass fraction] 97 % Ric Martinez [facility] 07-11-2024 14:13-0400 Systolic blood pressure 132 mm[Hg] Ric Martinez [facility] 05-22-2024 13:28-0400 Body height 182.9 cm Manny Parra MD Work Phone: [facility] 05-22-2024 13:28-0400 Body mass index (BMI) [Ratio] 21.43 kg/m2 Manny Parra MD Work Phone: [facility] 05-22-2024 13:28-0400 Body weight 71.67 kg Manny Parra MD Work Phone: [facility] 01-06-2024 10:04-0400 Blood Pressure Location Prabhjot Gipson [facility] 01-06-2024 10:04-0400 Diastolic blood pressure 86 mm[Hg] Prabhjot Gipson [facility] 01-06-2024 10:04-0400 Heart rate 50 /min Prabhjot Gipson [facility] 01-06-2024 10:04-0400 SaO2% (BldA) [Mass fraction] 91 % Prabhjot Gipson [facility] 01-06-2024 10:04-0400 Systolic blood pressure 134 mm[Hg] Prabhjot Gipson [facility] 10-07-2023 10:15-0500 Body height 187.96 cm Mylene Dunn Other [facility] Other 10-07-2023 10:15-0500 Body mass index (BMI) [Ratio] 20.28 kg/m2 Mylene Dunn Other [facility] Other 10-07-2023 10:15-0500 Body temperature 96.9 [degF] Mylene Dunn Other [facility] Other 10-07-2023 10:15-0500 Body weight 71.67 kg Mylene Dunn Other [facility] Other 10-07-2023 10:15-0500 Diastolic blood pressure 86 mm[Hg] Mylene Dunn Other [facility] Other 10-07-2023 10:15-0500 Systolic blood pressure 111 mm[Hg] Mylene Dunn Other [facility] Other 07-14-2023 13:27-0400 Diastolic blood pressure 72 mm[Hg] Prabhjot Felipejoyce [facility] 07-14-2023 13:27-0400 Heart rate 59 /min Prabhjot Brandan [facility] 07-14-2023 13:27-0400 SaO2% (BldA) [Mass fraction] 92 % Prabhjot Brandan [facility] 07-14-2023 13:27-0400 Systolic blood pressure 122 mm[Hg] Prabhjot Neilbarak [facility] 04-06-2023 09:15-0400 Body height 187.96 cm Mylene Dunn Other [facility] Other 04-06-2023 09:15-0400 Body mass index (BMI) [Ratio] 20.18 kg/m2 Mylene Dunn Other [facility] Other 04-06-2023 09:15-0400 Body temperature 97.5 [degF] Mylene Dunn Other [facility] Other 04-06-2023 09:15-0400 Body weight 71.31 kg Mylene Dunn Other [facility] Other 04-06-2023 09:15-0400 Diastolic blood pressure 70 mm[Hg] Mylene Dunn Other [facility] Other 04-06-2023 09:15-0400 Systolic blood pressure 108 mm[Hg] Mylene Dunn Other [facility] Other 01-13-2023 16:00-0400 Blood Pressure Location Prabhjot Brandan [facility] 01-13-2023 16:00-0400 Diastolic blood pressure 82 mm[Hg] Prabhjot Neilbarak [facility] 01-13-2023 16:00-0400 Heart rate 58 /min Prabhjot Neilbarak [facility] 01-13-2023 16:00-0400 SaO2% (BldA) [Mass fraction] 96 % Prabhjot Matteoofferson [facility] 01-13-2023 16:00-0400 Systolic blood pressure 124 mm[Hg] Prabhjot Neilerson [facility] 12-15-2022 15:20-0400 Blood Pressure Location Prabhjot Felipeofferson [facility] 12-15-2022 15:20-0400 Diastolic blood pressure 82 mm[Hg] Prabhjot Gipson [facility] 12-15-2022 15:20-0400 Heart rate 62 /min Prabhjot Gipson [facility] 12-15-2022 15:20-0400 SaO2% (BldA) [Mass fraction] 100 % Prabhjot Gipson [facility] 12-15-2022 15:20-0400 Systolic blood pressure 126 mm[Hg] Prabhjot Brandan [facility] 11-01-2022 14:35-0500 Blood Pressure Location Daysi GONZALEZ [facility] 11-01-2022 14:35-0500 Diastolic blood pressure 83 mm[Hg] Daysiquinn GONZALEZ [facility] 11-01-2022 14:35-0500 Heart rate 62 /min Daysi GONZALEZ [facility] 11-01-2022 14:35-0500 Respiratory rate 16 /min Daysi GONZALEZ [facility] 11-01-2022 14:35-0500 Systolic blood pressure 122 mm[Hg] Daysiquinn GONZALEZ [facility] 10-19-2022 16:21-0500 Body height 182.9 cm Jose Garcia MD Work Phone: [facility] 10-19-2022 16:21-0500 Body weight 72.3 kg Jose Garcia MD Work Phone: [facility] 10-19-2022 16:21-0500 Diastolic blood pressure 79 mm[Hg] Jose Garcia MD Work Phone: [facility] 10-19-2022 16:21-0500 Heart rate 59 /min Jose Garcia MD Work Phone: [facility] 10-19-2022 16:21-0500 Systolic blood pressure 130 mm[Hg] Jose Garcia MD Work Phone: [facility] [facility] 10-05-2022 16:05-0500 Blood Pressure Location Prabhjot Gipson [facility] 10-05-2022 16:05-0500 Diastolic blood pressure 64 mm[Hg] Prabhjot Gipson [facility] 10-05-2022 16:05-0500 Heart rate 66 /min Prabhjot Gipson [facility] 10-05-2022 16:05-0500 SaO2% (BldA) [Mass fraction] 99 % Prabhjot Gipson [facility] 10-05-2022 16:05-0500 Systolic blood pressure 120 mm[Hg] Prabhjot Gipson [facility] 10-01-2022 12:59-0500 Body height 182.9 cm Pacc 7 Work Phone: [facility] 10-01-2022 12:59-0500 Body temperature 96.91 [degF] Pacc 7 Work Phone: [facility] 10-01-2022 12:59-0500 Body weight 71.8 kg Pacc 7 Work Phone: [facility] 10-01-2022 12:59-0500 Diastolic blood pressure 51 mm[Hg] Pacc 7 Work Phone: [facility] 10-01-2022 12:59-0500 Heart rate 73 /min Pacc 7 Work Phone: [facility] 10-01-2022 12:59-0500 SaO2% (BldA) [Mass fraction] 100 % Pacc 7 Work Phone: [facility] 10-01-2022 12:59-0500 Systolic blood pressure 120 mm[Hg] Pac 7 Work Phone: [facility] 09-22-2022 13:18-0500 Diastolic blood pressure 69 mm[Hg] Hemal Urban MD Work Phone: [facility] 09-22-2022 13:18-0500 Heart rate 94 /min Hemal Urban MD Work Phone: [facility] 09-22-2022 13:18-0500 Systolic blood pressure 115 mm[Hg] Hemal Urban MD Work Phone: [facility] 09-22-2022 13:17-0500 Body weight 72.58 kg Hemal Urban MD Work Phone: [facility] 09-22-2022 13:17-0500 SaO2% (BldA) [Mass fraction] 97 % Hemal Urban MD Work Phone: [facility] 09-14-2022 15:20-0500 Body height 182.9 cm Jose Garcia MD Work Phone: [facility] 09-14-2022 15:20-0500 Body weight 71.22 kg Jose Garcia MD Work Phone: [facility] 09-14-2022 15:20-0500 Diastolic blood pressure 74 mm[Hg] Jose Garcia MD Work Phone: [facility] 09-14-2022 15:20-0500 Heart rate 94 /min Jose Garcia MD Work Phone: [facility] 09-14-2022 15:20-0500 Systolic blood pressure 129 mm[Hg] Jose Garcia MD Work Phone: [facility] 08-24-2022 10:50-0500 Body height 182.88 cm Mylene Dunn [facility] Work Phone: 08-24-2022 10:50-0500 Body mass index (BMI) [Ratio] 22.11 kg/m2 Mylene Dunn Work Phone: [facility] [place] Work Phone: 08-24-2022 10:50-0500 Body surface area Derived from formula 1.95 m2 Mylene Dunn Work Phone: [facility] [place] Work Phone: 08-24-2022 10:50-0500 Body weight 73.94 kg Mylene Dunn Work Phone: [facility] [place] Work Phone: 07-09-2022 13:45-0400 Body height 182.88 cm Mylene Dunn Work Phone: KF-Dhfzwynltv-RST [facility] [address] [place] Work Phone: 07-09-2022 13:45-0400 Body mass index (BMI) [Ratio] 22.11 kg/m2 Mylene Dunn Work Phone: QZ-Arsmcvjqom-NGF [facility] [address] [place] Work Phone: 07-09-2022 13:45-0400 Body surface area Derived from formula 1.95 m2 Mylene Dunn Work Phone: HU-Gmjczfthzl-COS [facility] [address] [place] Work Phone: 07-09-2022 13:45-0400 Body weight 73.94 kg Mylene Dunn Work Phone: UB-Oedxbmgxqg-ZPW [facility] [address] [place] Work Phone: 07-09-2022 13:45-0400 Diastolic blood pressure 68 mm[Hg] Mylene Dunn Work Phone: HM-Hfylznorcm-SBJ [facility] [address] [place] Work Phone: 07-09-2022 13:45-0400 Heart rate 79 /min Mylene Dunn Work Phone: CL-Inzxjpbdyb-HLQ [facility] [address] [place] Work Phone: 07-09-2022 13:45-0400 SaO2% (BldA) [Mass fraction] 90 % Mylene Dunn Work Phone: TV-Rqecjxrlmv-RLG [facility] [address] [place] Work Phone: 07-09-2022 13:45-0400 Systolic blood pressure 128 mm[Hg] Mylene Dunn Work Phone: RA-Snvltimucb-ZUT [facility] [address] [place] Work Phone: 07-09-2022 13:45-0400 0 1 Mylene Dunn Work Phone: UK-Mxcubzbmsv-OFM [facility] [address] [place] Work Phone: Comment on above: [facility] 07-07-2022 13:29-0400 Blood Pressure Location Prabhjot Matteobrandiebarak [facility] 07-07-2022 13:29-0400 Diastolic blood pressure 74 mm[Hg] Prabhjot Gipson [facility] 07-07-2022 13:29-0400 Heart rate 72 /min Prabhjot Brandan [facility] 07-07-2022 13:29-0400 Respiratory rate 18 /min Prabhjot Gipson [facility] 07-07-2022 13:29-0400 SaO2% (BldA) [Mass fraction] 98 % Prabhjot Brandan [facility] 07-07-2022 13:29-0400 Systolic blood pressure 119 mm[Hg] Prabhjot Neilbarak [facility] 06-14-2022 12:00-0400 Body weight 73.7 kg Mylene Dunn Other Phone: [facility] 06-14-2022 08:16-0400 Body temperature 98.24 [degF] Mylene Dunn Other Phone: [facility] 06-14-2022 08:16-0400 Diastolic blood pressure 73 mm[Hg] Mylene Dunn Other Phone: [facility] 06-14-2022 08:16-0400 Heart rate 71 /min Mylene Dunn Other Phone: [facility] 06-14-2022 08:16-0400 Respiratory rate 16 /min Mylene Dunn Other Phone: [facility] 06-14-2022 08:16-0400 SaO2% (BldA) [Mass fraction] 92 % Mylene Dunn Other Phone: [facility] 06-14-2022 08:16-0400 Systolic blood pressure 135 mm[Hg] Mylene Dunn Other Phone: [facility] 06-05-2022 08:57-0400 Body temperature 37.0 {degrees_C} Mylene Dunn Work Phone: UJ-Wehezfldai-Hffd n [facility] Work Phone: Comment on above: NOTE: PATIENT RESULTS ARE NOT CORRECTED FOR TEMPERATURE. 06-05-2022 08:57-0400 SaO2% (BldA) [Mass fraction] 100 % Mylene Dunn Work Phone: NV-Iuoqoqiisl-Lfxo n Frakes Work Phone: 06-05-2022 05:13-0400 Body temperature 37.0 {degrees_C} Mylene Dunn Work Phone: QQ-Sehfbiihzy-Bsoh n Frakes Work Phone: Comment on above: NOTE: PATIENT RESULTS ARE NOT CORRECTED FOR TEMPERATURE. 06-05-2022 05:13-0400 SaO2% (BldA) [Mass fraction] 99 % Mylene Dunn Work Phone: GD-Elhspitsum-Furj n [facility] Work Phone: 06-05-2022 00:46-0400 Body temperature 37.0 {degrees_C} Mylene Dunn Work Phone: DL-Enuqjmhnbv-Ekoo n [facility] Work Phone: Comment on above: NOTE: PATIENT RESULTS ARE NOT CORRECTED FOR TEMPERATURE. 06-05-2022 00:46-0400 SaO2% (BldA) [Mass fraction] 96 % Mylene Dunn Work Phone: VG-Ejvinkmbwc-Gkxl n [facility] Work Phone: 06-04-2022 23:07-0400 Body temperature 37.0 {degrees_C} Mylene Dunn Work Phone: CN-Ojhsmivzsv-Csmj n [facility] Work Phone: Comment on above: NOTE: PATIENT RESULTS ARE NOT CORRECTED FOR TEMPERATURE. 06-04-2022 23:07-0400 SaO2% (BldA) [Mass fraction] 98 % Mylene Dunn Work Phone: MY-Kwzzfsamiv-Afgd n [facility] Work Phone: 06-04-2022 21:18-0400 Body temperature 37.0 {degrees_C} Mylene Dunn Work Phone: BT-Rrelhyuzzi-Nnly n [facility] Work Phone: Comment on above: NOTE: PATIENT RESULTS ARE NOT CORRECTED FOR TEMPERATURE. 06-04-2022 21:18-0400 SaO2% (BldA) [Mass fraction] 99 % Mylene Dunn Work Phone: CY-Pvnrjyfxlf-Kabp n [facility] Work Phone: 06-04-2022 19:56-0400 Body temperature 37.0 {degrees_C} Mylene Dunn Work Phone: VF-Kgcpturzfb-Gjst n Frakes Work Phone: Comment on above: NOTE: PATIENT RESULTS ARE NOT CORRECTED FOR TEMPERATURE. 06-04-2022 19:56-0400 SaO2% (BldA) [Mass fraction] 99 % Mylene Dunn Work Phone: IR-Vmeddgzkhr-Pxgf n [facility] Work Phone: 06-04-2022 17:56-0400 Body temperature 37.0 {degrees_C} Mylene Dunn Work Phone: TP-Aqmartqwag-Fqxr n [facility] Work Phone: Comment on above: NOTE: PATIENT RESULTS ARE NOT CORRECTED FOR TEMPERATURE. 06-04-2022 17:56-0400 SaO2% (BldA) [Mass fraction] 100 % Mylene Dunn Work Phone: UQ-Lpilvgiwgv-Ddpl n [facility] Work Phone: 06-04-2022 15:45-0400 Body temperature 37.0 {degrees_C} Mylene Dunn Work Phone: OC-Ybglosttyu-Ycew n Frakes Work Phone: Comment on above: NOTE: PATIENT RESULTS ARE NOT CORRECTED FOR TEMPERATURE. 06-04-2022 15:45-0400 SaO2% (BldA) [Mass fraction] 99 % Mylene Dunn Work Phone: ZX-Fhesfgrylr-Eroj n [facility] Work Phone: 06-04-2022 14:55-0400 Body temperature 37.0 {degrees_C} Mylene Dunn Work Phone: HH-Fguygiaffh-Dobg n [facility] Work Phone: Comment on above: NOTE: PATIENT RESULTS ARE NOT CORRECTED FOR TEMPERATURE. 06-04-2022 14:55-0400 SaO2% (BldA) [Mass fraction] 100 % Mylene Dunn Work Phone: EN-Lzjncxfatl-Qwlj n [facility] Work Phone: 06-04-2022 13:40-0400 Body temperature 37.0 {degrees_C} Mylene Dunn Work Phone: VK-Yxszikidmc-Rnmi n [facility] Work Phone: Comment on above: NOTE: PATIENT RESULTS ARE NOT CORRECTED FOR TEMPERATURE. 06-04-2022 13:40-0400 SaO2% (BldA) [Mass fraction] 99 % Mylene Dunn Work Phone: VW-Sivhuaoltw-Lqid n [facility] Work Phone: 06-04-2022 12:52-0400 Body temperature 37.0 {degrees_C} Mylene Nga Dunn Work Phone: WB-Kuofkxouly-Uxag n Frakes Work Phone: Comment on above: NOTE: PATIENT RESULTS ARE NOT CORRECTED FOR TEMPERATURE. 06-04-2022 12:52-0400 SaO2% (BldA) [Mass fraction] 100 % Mylene Dunn Work Phone: BY-Xztpsvfyqm-Ktfz n [facility] Work Phone: 06-04-2022 12:18-0400 Body temperature 37.0 {degrees_C} Mylene Nga Dunn Work Phone: WK-Pnlygrzcdo-Lbzu n [facility] Work Phone: Comment on above: NOTE: PATIENT RESULTS ARE NOT CORRECTED FOR TEMPERATURE. 06-04-2022 12:18-0400 SaO2% (BldA) [Mass fraction] 100 % Mylene Nga Dunn Work Phone: WF-Brrndaeuxm-Nbar n [facility] Work Phone: 06-04-2022 11:44-0400 Body temperature 37.0 {degrees_C} Mylene Nga Dunn Work Phone: JW-Cqnnzolxvq-Wsgb n [facility] Work Phone: Comment on above: NOTE: PATIENT RESULTS ARE NOT CORRECTED FOR TEMPERATURE. 06-04-2022 11:44-0400 SaO2% (BldA) [Mass fraction] 100 % Mylene Dunn Work Phone: YQ-Fykldtltka-Yznz n [facility] Work Phone: 06-04-2022 11:10-0400 Body temperature 37.0 {degrees_C} Mylene Dunn Work Phone: CE-Zwyteyxzla-Ccpq n [facility] Work Phone: Comment on above: NOTE: PATIENT RESULTS ARE NOT CORRECTED FOR TEMPERATURE. 06-04-2022 11:10-0400 SaO2% (BldA) [Mass fraction] 100 % Mylene Dunn Work Phone: SM-Egwlvzelsu-Swpr n [facility] Work Phone: 06-04-2022 10:39-0400 Body temperature 37.0 {degrees_C} Mylene Dunn Work Phone: ZG-Lacqxlrdgy-Sndy n Frakes Work Phone: Comment on above: NOTE: PATIENT RESULTS ARE NOT CORRECTED FOR TEMPERATURE. 06-04-2022 10:39-0400 SaO2% (BldA) [Mass fraction] 100 % Mylene Dunn Work Phone: OV-Rrwmlmwwwd-Dzqq n [facility] Work Phone: 06-04-2022 10:25-0400 Body temperature 37.0 {degrees_C} Mylene Dunn Work Phone: OE-Azaxjlaukj-Crxq n [facility] Work Phone: Comment on above: NOTE: PATIENT RESULTS ARE NOT CORRECTED FOR TEMPERATURE. 06-04-2022 10:11-0400 Body temperature 37.0 {degrees_C} Mylene Dunn Work Phone: QC-Hnhijyuqqy-Donp n [facility] Work Phone: Comment on above: NOTE: PATIENT RESULTS ARE NOT CORRECTED FOR TEMPERATURE. 06-04-2022 10:11-0400 SaO2% (BldA) [Mass fraction] 100 % Mylene Dunn Work Phone: HV-Jcqrfkyxfl-Sklp n [facility] Work Phone: 06-04-2022 09:35-0400 Body temperature 37.0 {degrees_C} Mylene Dunn Work Phone: FJ-Bvtlpyrlpp-Geui n Fra[facility] Work Phone: Comment on above: NOTE: PATIENT RESULTS ARE NOT CORRECTED FOR TEMPERATURE. 06-04-2022 09:35-0400 SaO2% (BldA) [Mass fraction] 100 % Mylene Dunn Work Phone: QU-Mvoevnodus-Awub n [facility] Work Phone: 06-04-2022 07:52-0400 Body temperature 37.0 {degrees_C} Mylene Sylvester Dunn Work Phone: OV-Osmnibxgcs-Hitz n Fra[facility] Work Phone: Comment on above: NOTE: PATIENT RESULTS ARE NOT CORRECTED FOR TEMPERATURE. 06-04-2022 07:52-0400 SaO2% (BldA) [Mass fraction] 99 % Mylene Sylvester Mona Work Phone: MF-Vydbhkguvf-Teyn n [facility] Work Phone: 06-01-2022 17:56-0400 Body temperature 37.0 {degrees_C} Mylene Sylvester Mona Work Phone: TA-Nycaihionu-Yrzx n Frakes Work Phone: Comment on above: NOTE: PATIENT RESULTS ARE NOT CORRECTED FOR TEMPERATURE. 06-01-2022 17:56-0400 SaO2% (BldA) [Mass fraction] 94 % Mylene Sylvester Dunn Work Phone: FP-Zezosmayuf-Dwrm n [facility] Work Phone: 05-27-2022 20:00-0400 Diastolic blood pressure 69 mm[Hg] Hasan AMIR [facility] 05-27-2022 20:00-0400 Heart rate 81 /min Hasan AMIR [facility] 05-27-2022 20:00-0400 Hourly Rounding Hasan AMIR [facility] 05-27-2022 20:00-0400 Mean blood pressure 83 mm[Hg] Hasan AMIR [facility] 05-27-2022 20:00-0400 Promise to Return Hasan AMIR [facility] 05-27-2022 20:00-0400 Respiratory rate 17 /min Hasan AMIR [facility] 05-27-2022 20:00-0400 Systolic blood pressure 112 mm[Hg] Hasan AMIR [facility] 05-27-2022 19:22-0400 Diastolic blood pressure 70 mm[Hg] Hasan AMIR [facility] 05-27-2022 19:22-0400 Heart rate 85 /min Hasan AMIR [facility] 05-27-2022 19:22-0400 Hourly Rounding Hasan AMIR [facility] 05-27-2022 19:22-0400 Mean blood pressure 78 mm[Hg] Hasan AMIR [facility] 05-27-2022 19:22-0400 Promise to Return Hasan AMIR [facility] 05-27-2022 19:22-0400 Respiratory rate 18 /min Hasan AMIR [facility] 05-27-2022 19:22-0400 SaO2% (BldA) [Mass fraction] 99 % Hasan AMIR [facility] 05-27-2022 19:22-0400 Systolic blood pressure 117 mm[Hg] Hasan AMIR [facility] 05-27-2022 19:02-0400 Diastolic blood pressure 66 mm[Hg] Hasan AMIR [facility] 05-27-2022 19:02-0400 Heart rate 69 /min Hasan AMIR [facility] 05-27-2022 19:02-0400 Mean blood pressure 75 mm[Hg] Hasan AMIR [facility] 05-27-2022 19:02-0400 Respiratory rate 16 /min Hasan AMIR [facility] 05-27-2022 19:02-0400 SaO2% (BldA) [Mass fraction] 93 % Hasan AMIR [facility] 05-27-2022 19:02-0400 Systolic blood pressure 114 mm[Hg] Hasan AMIR [facility] 05-27-2022 19:00-0400 Body temperature 98.42 [degF] Hasan AMIR [facility] 05-27-2022 18:00-0400 Hourly Rounding Hasan AMIR [facility] 05-27-2022 18:00-0400 Promise to Return Hasan AMIR [facility] 05-27-2022 08:23-0400 Blood Pressure Location Hasan AMIR [facility] 05-27-2022 08:23-0400 Body temperature 97.88 [degF] Hasan AMIR [facility] 05-27-2022 08:23-0400 BP/Pulse Patient Position Hasan AMIR [facility] 05-27-2022 08:23-0400 Mean blood pressure 100 mm[Hg] Hasan AMIR [facility] 05-27-2022 08:23-0400 Respiratory rate 18 /min Hasan AMIR [facility] 05-27-2022 00:45-0400 Respiratory rate 16 /min Hasan AMIR [facility] 05-26-2022 19:17-0400 Heart rate 66 /min Hasan AMIR [facility] 05-26-2022 19:01-0400 Mean blood pressure 86 mm[Hg] Hasan AMIR [facility] 05-26-2022 17:47-0400 Heart rate 63 /min Hasan AMIR [facility] 05-26-2022 16:13-0400 Heart rate 69 /min Hasan AMIR [facility] 05-10-2022 09:08-0400 Respiratory rate 16 /min Daysi GONZALEZ [facility] 05-04-2022 10:46-0400 Body height 182.88 cm Mylene Dunn Work Phone: [facility] [place] Work Phone: 05-04-2022 10:46-0400 Body mass index (BMI) [Ratio] 22.69 kg/m2 Mylene Dunn Work Phone: [facility] [place] Work Phone: 05-04-2022 10:46-0400 Body surface area Derived from formula 1.97 m2 Mylene Dunn Work Phone: [facility] [place] Work Phone: 05-04-2022 10:46-0400 Body weight 75.89 kg Mylene Dunn Work Phone: [facility] [place] Work Phone: 05-04-2022 10:46-0400 0 1 Mylene Dunn Work Phone: [facility] [place] Work Phone: Comment on above: [facility] 03-18-2022 13:35-0400 Blood Pressure Location Razo SALAM [facility] 03-18-2022 13:35-0400 Diastolic blood pressure 78 mm[Hg] Razo SALAM [facility] 03-18-2022 13:35-0400 Heart rate 72 /min Razo SALAM [facility] 03-18-2022 13:35-0400 Respiratory rate 16 /min Razo SALAM [facility] 03-18-2022 13:35-0400 Systolic blood pressure 112 mm[Hg] Razo SALAM [facility] 11-03-2021 10:21-0500 Body height 182.88 cm Mylene Dunn Work Phone: [facility] [place] Work Phone: 11-03-2021 10:21-0500 Body mass index (BMI) [Ratio] 24.14 kg/m2 Mylene Dunn Work Phone: [facility] [place] Work Phone: 11-03-2021 10:21-0500 Body surface area Derived from formula 2.03 m2 Mylene Dunn Work Phone: [facility] [place] Work Phone: 11-03-2021 10:21-0500 Body temperature 97.7 [degF] Mylene Dunn Work Phone: [facility] [place] Work Phone: 11-03-2021 10:21-0500 Body weight 80.74 kg Mylene Dunn Work Phone: [facility] [place] Work Phone: 11-03-2021 10:21-0500 0 1 Mylene Sylvester Mona Work Phone: [facility] [place] Work Phone: Comment on above: [facility] 05-05-2021 10:16-0400 Body height 182.88 cm Mylenenaif Dunn Work Phone: [facility] [place] Work Phone: 05-05-2021 10:16-0400 Body mass index (BMI) [Ratio] 24.41 kg/m2 Mylene Dunn Work Phone: [facility] [place] Work Phone: 05-05-2021 10:16-0400 Body surface area Derived from formula 2.04 m2 Mylene Dunn Work Phone: [facility] [place] Work Phone: 05-05-2021 10:16-0400 Body temperature 97.8 [degF] Mylene Nga Dunn Work Phone: [facility] [place] Work Phone: 05-05-2021 10:16-0400 Body weight 81.65 kg Mylene Dunn Work Phone: [facility] [place] Work Phone: 03-03-2021 16:00-0400 Body height 182.88 cm Mylene Dunn Work Phone: [facility] [place] Work Phone: 03-03-2021 16:00-0400 Body mass index (BMI) [Ratio] 25.23 kg/m2 Mylene Dunn Work Phone: [facility] [place] Work Phone: 03-03-2021 16:00-0400 Body surface area Derived from formula 2.07 m2 Mylene Dunn Work Phone: [facility] [place] Work Phone: 03-03-2021 16:00-0400 Body temperature 97.5 [degF] Mylene Dunn Work Phone: [facility] [place] Work Phone: 03-03-2021 16:00-0400 Body weight 84.37 kg Mylene Dunn Work Phone: [facility] [place] Work Phone: 02-03-2021 13:28-0400 Body height 182.88 cm Mylene Dunn Work Phone: [facility] [place] Work Phone: 02-03-2021 13:28-0400 Body mass index (BMI) [Ratio] 24.57 kg/m2 Mylene Dunn Work Phone: [facility] [place] Work Phone: 02-03-2021 13:28-0400 Body surface area Derived from formula 2.04 m2 Mylene Dunn Work Phone: [facility] [place] Work Phone: 02-03-2021 13:28-0400 Body temperature 97.5 [degF] Mylene Dunn Work Phone: [facility] [place] Work Phone: 02-03-2021 13:28-0400 Body weight 82.15 kg Mylene Dunn Work Phone: [facility] [place] Work Phone: 02-03-2021 13:28-0400 Respiratory rate 16 /min [facility]yleen Dunn [facility]: Encounters Encounter Date Encounter Type Care Provider Facility Start: 07-09-2025 ambulatory Heber Gonzalez [facility] Start: 07-03-2025 End: 07-03-2025 Bamboo flowsheet Fadi Montanez PA Work Phone: [facility] Start: 07-03-2025 End: 07-03-2025 Bamboo flowsheet Fadi Montanez PA Work Phone: [facility] Start: 07-03-2025 End: 07-03-2025 Patient encounter procedure Fadi Montanez PA Work Phone: [facility] Comment on above: Localized osteoarthr itis of left knee (Primary Dx) Start: 07-03-2025 End: 07-03-2025 ambulatory FADI MONTANEZ Not Available Start: 07-01-2025 End: 07-01-2025 ambulatory Mylene Dunn MD Work Phone: [facility] Work Phone: Start: 07-01-2025 End: 07-01-2025 Patient encounter procedure Mylene Dunn MD -[facility] Work Phone: Start: 06-12-2025 End: 06-12-2025 Bamboo flowsheet Halima Ponce DO Work Phone: [facility] Start: 06-12-2025 End: 06-12-2025 Bamboo flowsheet Halima Ponce DO Work Phone: [facility] Start: 06-12-2025 End: 06-12-2025 ambulatory HALIMA PONCE Not Available Start: 06-06-2025 End: 06-06-2025 ambulatory Mylene Dunn MD Work Phone: [facility] Work Phone: Start: 06-06-2025 End: 06-06-2025 Patient encounter procedure Mylene Dunn MD -[facility] Work Phone: Start: 06-06-2025 End: 06-06-2025 ambulatory PRABHJOT GIPSON Facility:[facility] Start: 05-21-2025 End: 05-21-2025 Office outpatient visit 40 minutes Mary Blount MD Work Phone: [facility] Comment on above: Dysphagia, unspecifi ed type (Primary Dx); PEG (percutaneous endoscopic gastrostomy) status (Multi) Start: 05-21-2025 End: 05-21-2025 ambulatory MARY BLOUNT [facility] Start: 04-23-2025 End: 04-23-2025 Encounter identifier Doctor Corporate Work Phone: ALEJANDRA Ricardo Start: 04-23-2025 ambulatory Doctor Corporate [facility] Start: 04-23-2025 End: 04-23-2025 Encounter identifier Heber Gonzalez Work Phone: [facility] Start: 04-23-2025 ambulatory Heber Gonzalez [facility] Start: 04-16-2025 End: 04-16-2025 ambulatory MYLENE DUNN [facility] Start: 04-09-2025 End: 04-09-2025 Bamboo flowsheet Fadi Keaton [employer] PA Work Phone: [facility] Start: 04-09-2025 End: 04-09-2025 Bamboo flowsheet Fadi Keaton [place] Work Phone: [facility] Start: 04-09-2025 End: 04-09-2025 Patient encounter procedure Jason Villatoro DO Work Phone: [facility] Comment on above: Localized osteoarthr itis of left knee (Primary Dx) Start: 04-09-2025 End: 04-09-2025 ambulatory JASON VILLATORO Not Available Start: 04-01-2025 End: 04-01-2025 ambulatory Mylene Dunn MD Work Phone: [facility] Work Phone: Start: 04-01-2025 End: 04-01-2025 Patient encounter procedure Mylene Dunn MD [facility] Work Phone: Start: 03-22-2025 End: 03-22-2025 ambulatory Ric Martinez Facility:[facility] Start: 03-22-2025 End: 03-22-2025 Patient encounter procedure Ric Martinez [facility] Start: 03-19-2025 End: 03-19-2025 Office outpatient visit 40 minutes Mary Blount MD Work Phone: [facility] Comment on above: Oropharyngeal dyspha rona (Primary Dx); Velopharyngeal dysfunction; PEG (percutaneous endoscopic gastrostomy) status (Multi) Start: 03-19-2025 End: 03-19-2025 Patient encounter procedure Kenny MILLS Work Phone: [facility] Start: 03-19-2025 End: 03-19-2025 ambulatory MYLENE DUNN [facility] Start: 03-13-2025 End: 03-13-2025 Bamboo flowsheet Halima Ponce DO Work Phone: [facility] Start: 03-13-2025 End: 03-13-2025 Bamboo flowsheet Halima Ponce DO Work Phone: [facility] Start: 03-13-2025 End: 03-13-2025 ambulatory HALIMA PONCE Not Available Start: 03-11-2025 End: 03-11-2025 Patient encounter procedure Godwin Gordillo DO -[facility] Work Phone: Start: 02-27-2025 End: 02-27-2025 Bamboo flowsheet Fadi Montanez PA Work Phone: [facility] Start: 02-27-2025 End: 02-27-2025 Bamboo flowsheet Afdi D [place] PA Work Phone: [facility] Start: 02-27-2025 End: 02-27-2025 Patient encounter procedure Fadi VALDIVIA Work Phone: [facility] Comment on above: Localized osteoarthr itis of left knee (Primary Dx) Start: 02-27-2025 End: 02-27-2025 ambulatory FADI MONTANEZ Not Available Start: 02-19-2025 End: 02-19-2025 ambulatory MYLENE DUNN Facility:[facility] Start: 02-19-2025 End: 02-19-2025 Patient encounter procedure MYLENE DUNN [facility] Start: 02-05-2025 End: 02-05-2025 ambulatory Monty Rubio DO Work Phone: [facility] Work Phone: Start: 02-05-2025 End: 02-05-2025 Patient encounter procedure Monty Rubio DO Work Phone: [facility] Work Phone: Start: 01-29-2025 End: 01-29-2025 Encounter identifier Dixon Burgess Jr Work Phone: [facility] Start: 01-29-2025 ambulatory Dixon Burgess Jr [facility] Start: 01-22-2025 End: 01-22-2025 Office outpatient visit 15 minutes Manny Parra MD Work Phone: [facility] Comment on above: 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); Oropharyngeal dysphagia Start: 01-22-2025 End: 01-22-2025 ambulatory [facility] Start: 01-17-2025 End: 01-17-2025 Patient encounter procedure Jose Garcia MD Work Phone: Urology Comment on above: History of bladder c ancer (Primary Dx) Start: 01-17-2025 End: 01-17-2025 ambulatory JOSE GARCIA Facility:[facility] Start: 12-20-2024 End: 12-21-2024 Patient encounter procedure Jason Enrico Irving DO Work Phone: [facility] Comment on above: Localized osteoarthr itis of left knee (Primary Dx) Start: 12-20-2024 End: 12-21-2024 ambulatory Ric Kahlil Martinez Facility:[facility] Start: 12-20-2024 End: 12-20-2024 ambulatory JASON VILLATORO Not Available Start: 12-13-2024 End: 05-20-2025 ambulatory MYLENE DUNN Facility:[facility] Start: 12-07-2024 End: 12-07-2024 ambulatory Monty Gonzalez Joanne DO Work Phone: [facility] Work Phone: Start: 12-07-2024 End: 12-07-2024 Patient encounter procedure Monty Solorzanojonna DO Work Phone: [facility] Work Phone: Start: 12-07-2024 End: 12-07-2024 Patient encounter procedure Monty Solorzanojonna DO Work Phone: [facility] Start: 12-07-2024 End: 12-07-2024 ambulatory Monty Gonzalez Joanne DO Work Phone: [facility] Work Phone: Start: 12-06-2024 End: 12-06-2024 ambulatory PRABHJOT GIPSON Facility:[facility] Start: 12-06-2024 End: 12-06-2024 Patient encounter procedure Prabhjot Gipson [facility] Start: 12-04-2024 End: 12-04-2024 Encounter identifier Heber Gonzalez Work Phone: [facility] Start: 12-04-2024 End: 12-04-2024 Heber Gonzalez Work Phone: [facility] Start: 12-04-2024 ambulatory Heber Gonzalez [facility] Start: 12-03-2024 End: 12-03-2024 ambulatory Monty Rubio DO Work Phone: [facility] Work Phone: Start: 12-03-2024 End: 12-03-2024 Patient encounter procedure Monty Reddyno DO Work Phone: [facility] Work Phone: Start: 11-29-2024 Non-patient / Non-visit Monty Reddyno DO Work Phone: [facility] Work Phone: Start: 11-27-2024 Non-patient / Non-visit Monty Reddyno DO Work Phone: [facility] Work Phone: Start: 11-26-2024 Non-patient / Non-visit Monty Reddyno DO Work Phone: [facility] Work Phone: Start: 11-19-2024 Non-patient / Non-visit Monty Reddyno DO Work Phone: [facility] Work Phone: Start: 11-18-2024 End: 11-30-2024 Evaluation and management of inpatient Monty Rubio DO Work Phone: [facility] Work Phone: Start: 11-16-2024 End: 11-16-2024 External Result Encounter Amaduo Arreguin MD Work Phone: [facility] External Department Unsolicited Start: 11-16-2024 End: 11-16-2024 External Result Encounter Amadou Barba MD Work Phone: [facility] External Department Unsolicited Start: 11-13-2024 Non-patient / Non-visit Monty Rubio DO Work Phone: [facility] Work Phone: Start: 11-11-2024 Non-patient / Non-visit Monty Rubio DO Work Phone: [facility] Orthopedics Work Phone: Start: 11-11-2024 Patient encounter status Monty Rubio DO Work Phone: [facility] Start: 11-11-2024 Preprocedural examination done Mylene Dunn MD Work Phone: [facility] Start: 11-10-2024 End: 11-18-2024 Encounter for other preprocedural examination Monty Rubio DO Work Phone: [facility] Start: 11-10-2024 End: 11-18-2024 Evaluation and management of inpatient Monty Rubio DO Work Phone: [facility] Work Phone: Start: 10-24-2024 End: 11-02-2024 Evaluation and management of inpatient Jasno Soliz DO Work Phone: [facility] Start: 10-19-2024 End: 10-24-2024 Evaluation and management of inpatient Ray J. Anderdirk Facility:[facility] Start: 10-19-2024 Emergency department patient visit Ric Martinez Facility:[facility] Start: 10-19-2024 End: 10-24-2024 Evaluation and management of inpatient Ray J. Anderle III [facility] Start: 10-05-2024 Non-patient / Non-visit Monty Rubio DO Work Phone: [facility] Work Phone: Start: 08-14-2024 End: 08-14-2024 Encounter identifier Heber Gonzalez Work Phone: [facility] Start: 08-14-2024 End: 08-14-2024 Heber Gonzalez Work Phone: [facility] Start: 08-14-2024 ambulatory Heber Gonzalez [facility] Start: 08-07-2024 End: 08-07-2024 ambulatory [facility] Work Phone: Start: 08-07-2024 End: 08-07-2024 Patient encounter procedure [facility] Work Phone: Start: 08-01-2024 Non-patient / Non-visit [facility] Work Phone: Start: 07-20-2024 End: 07-20-2024 ambulatory [facility] Facility:[facility] Start: 07-20-2024 End: 07-20-2024 Subsequent hospital visit by physician Arrival Time Radiology Work Phone: Radiology Pet [facility] Comment on above: Malignant neoplasm o f urinary bladder, unspecified site (HCC) [C67.9] Start: 07-19-2024 End: 07-19-2024 Orders Only Angela Corona APRN.PEDIATRICS PHYSICIAN Work Phone: Urology Comment on above: Screening for genito urinary condition (Primary Dx); Malignant neoplasm of urinary bladder, unspecified site (HCC) Start: 07-13-2024 End: 07-13-2024 ambulatory [facility] Work Phone: Start: 07-13-2024 End: 07-13-2024 Patient encounter procedure [facility] Work Phone: Start: 07-11-2024 End: 07-11-2024 ambulatory Ric Martinez Facility:[facility] Start: 07-11-2024 End: 07-11-2024 Patient encounter procedure Ric Martinez [facility] Start: 06-28-2024 End: 06-28-2024 Patient encounter procedure Jose Garcia MD Work Phone: Urology Comment on above: Screening for genito urinary condition (Primary Dx); Asymptomatic microscopic hematuria; DDD (degenerative disc disease), lumbar; Pain in right hip Start: 06-28-2024 End: 06-28-2024 ambulatory JOSE GARCIA Facility:[facility] Start: 06-14-2024 End: 06-14-2024 ambulatory Prabhjot Gipson Facility:[facility] Start: 06-14-2024 End: 06-14-2024 Patient encounter procedure Prabhjot Gipson [facility] Start: 06-07-2024 End: 06-07-2024 Office outpatient visit 25 minutes Heber Gonzalez Work Phone: [facility] Start: 05-22-2024 End: 05-22-2024 Office outpatient visit 15 minutes Manny Parra MD Work Phone: [facility] Comment on above: 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); Oropharyngeal dysphagia; Impacted cerumen of left ear Start: 05-22-2024 End: 05-22-2024 ambulatory [facility] Start: 03-22-2024 End: 03-22-2024 Encounter identifier May Kelechi Juarez Work Phone: [facility] Start: 03-22-2024 End: 03-22-2024 May Kelechi Juarez Work Phone: [facility] Start: 03-01-2024 End: 03-01-2024 ambulatory MD Mylene Dunn Work Phone: [facility] Work Phone: Start: 03-01-2024 End: 03-01-2024 Patient encounter procedure MD Mylene Dunn Work Phone: [facility] Work Phone: Start: 02-06-2024 End: 02-06-2024 Departed Referred MD Mylene Dunn Work Phone: [facility] [place] Work Phone: Start: 02-06-2024 End: 02-06-2024 ambulatory Mylene Dunn [facility] Work Phone: Start: 02-06-2024 End: 02-06-2024 Patient encounter procedure [facility] Work Phone: Start: 02-06-2024 End: 02-06-2024 ambulatory [facility] Facility:[facility] Start: 02-06-2024 End: 02-06-2024 [facility] Start: 01-12-2024 End: 01-12-2024 Encounter identifier May Kelechi Rashedy Work Phone: [facility] Start: 01-12-2024 End: 01-12-2024 May El Rashedy Work Phone: [facility] Start: 01-06-2024 End: 01-06-2024 Patient encounter procedure Prabhjot Gipson [facility] Start: 01-06-2024 End: 01-06-2024 ambulatory Prabhjot Gipson Facility:[facility] Start: 01-05-2024 End: 01-05-2024 Patient encounter procedure Jose Garcia MD Work Phone: Urology Comment on above: Malignant neoplasm o f urinary bladder, unspecified site (HCC) (Primary Dx); Bladder stone; Nutritional marasmus (HCC) Start: 12-26-2023 Orders Only Angela Darrell rs COMPRESSED YEAST SUPERVISOR.PEDIATRICS PHYSICIAN Work Phone: Urology Start: 12-20-2023 Orders Only Angela Darrell rs COMPRESSED YEAST SUPERVISOR.PEDIATRICS PHYSICIAN Work Phone: Urology Comment on above: Screening for genito urinary condition (Primary Dx) Start: 12-15-2023 End: 12-15-2023 Patient encounter procedure Rodolfo Willis [facility] Start: 11-17-2023 End: 05-02-2024 Recurring [facility] Start: 11-17-2023 End: 11-17-2023 Patient encounter procedure MANNY PARRA [facility] Start: 10-27-2023 End: 10-27-2023 Office outpatient visit 25 minutes January Kelechi Larry Work Phone: [facility] Start: 10-27-2023 End: 10-27-2023 Patient encounter procedure Jose Garcia MD Work Phone: Urology Comment on above: Bladder stone (Prima ry Dx); Nutritional marasmus (HCC) Start: 10-13-2023 End: 10-13-2023 ambulatory Mylene Dunn Other [facility] Other Start: 10-13-2023 Telephone encounter Mylene Dunn [facility] Start: 10-07-2023 End: 10-07-2023 ambulatory Mylene Dunn Other [facility] Other Start: 10-07-2023 Patient encounter procedure Mylene Dunn [facility] Start: 09-06-2023 Orders Only Angela Ramírez rs COMPRESSED YEAST SUPERVISOR.PEDIATRICS PHYSICIAN Work Phone: Urology Comment on above: Screening for genito urinary condition (Primary Dx) Start: 08-04-2023 Nursing evaluation o f patient and report Mylene Dunn [facility] Start: 08-04-2023 End: 08-04-2023 ambulatory MD Mylene Dunn Work Phone: [facility] Work Phone: Start: 08-04-2023 End: 08-04-2023 Departed Referred MD Mylene Dunn Work Phone: [facility] [place] Work Phone: Start: 07-27-2023 End: 07-27-2023 Encounter identifier Calvin Carpio Work Phone: [facility] Start: 07-27-2023 End: 07-27-2023 Calvin Popekarthik Work Phone: [facility] Start: 07-14-2023 End: 07-14-2023 Patient encounter procedure Prabhjot Gipson [facility] Start: 06-21-2023 Orders Only Angela quiroz COMPRESSED YEAST SUPERVISOR.PEDIATRICS PHYSICIAN Work Phone: Urology Comment on above: Urinary tract infect ion without hematuria, site unspecified (Primary Dx) Clinician To Clinici an Consult Screening for genito urinary condition (Primary Dx) Start: 06-16-2023 End: 06-16-2023 Patient encounter procedure oRdolfo Willis [facility] Start: 06-09-2023 End: 06-09-2023 Patient encounter procedure Jose Garcia MD Work Phone: Urology Comment on above: Malignant neoplasm o f urinary bladder, unspecified site (HCC) (Primary Dx); Screening for genitourinary condition Start: 05-18-2023 End: 05-18-2023 Encounter identifier Calvin Gonzalez Shirin Work Phone: [facility] Start: 05-18-2023 End: 05-18-2023 Calvin Carpio Work Phone: [facility] Start: 04-29-2023 End: 04-29-2023 ambulatory Roro Lincoln Other [facility] Other Start: 04-29-2023 Nursing evaluation o f patient and report Roro Lincoln [facility] Start: 04-13-2023 End: 04-13-2023 ambulatory Mylene Dunn Other [facility] Other Start: 04-13-2023 Telephone encounter Mylene Dunn [facility] Start: 04-06-2023 End: 04-06-2023 ambulatory Mylene Dunn Other [facility] Other Start: 04-06-2023 Office outpatient vi sit 25 minutes Mylene Mona [facility] Start: 03-09-2023 End: 03-09-2023 Encounter identifier Calvin Carpio Work Phone: [facility] Start: 03-09-2023 End: 03-09-2023 Calvin Carpio Work Phone: [facility] Start: 01-19-2023 Telephone encounter Alfredito Garcia MD Work Phone: [facility] & Comment on above: Appointment Reschedu led Start: 01-13-2023 End: 01-13-2023 Patient encounter procedure Prabhjot Gipson [facility] Start: 01-11-[address] Mylene Dunn Facility:[id number] Start: 01-11-2023 End: 01-12-[address] DOCTOR TOPETE Facility:[facility] Start: 12-15-2022 End: 12-15-2022 Patient encounter procedure Prabhjot Gipson [facility] Start: 12-08-2022 End: 12-08-2022 Encounter identifier Calvin Carpio Work Phone: [facility] Start: 12-08-2022 End: 12-08-2022 Calvin Popeby Work Phone: [facility] Start: 12-02-2022 End: 12-02-2022 Patient encounter procedure Rodolfo Dony Willis [facility] Start: 11-23-2022 End: 11-23-2022 Lab Drop off ROSSY MUELLER [facility] Start: 11-23-2022 End: 11-23-2022 Patient encounter procedure ROSSY MUELLER [facility] Start: 11-20-2022 Telephone encounter Susan Fajardo MD Work Phone: Urology Comment on above: Patient Question; Re turning Patient's Call Start: 11-01-2022 End: 11-01-2022 Patient encounter procedure Daysi GONZALEZ [facility] Start: 10-20-2022 Orders Only Marcos mckay MD Work Phone: Cardiology Comment on above: Atrial fibrillation, unspecified type (HCC) (Primary Dx) Start: 10-19-2022 End: 10-19-2022 Patient encounter procedure Jose Garcia MD Work Phone: Urology Comment on above: Malignant neoplasm o f urinary bladder, unspecified site (HCC) (Primary Dx) Start: 10-19-2022 ambulatory Jose thompson MD Work Phone: Urology Start: 10-13-2022 End: 10-13-2022 Patient encounter procedure ROSSY MUELLER [facility] Start: 10-07-2022 Orders Only Angela quiroz COMPRESSED YEAST SUPERVISOR.PEDIATRICS PHYSICIAN Work Phone: Urology Start: 10-05-2022 End: 10-05-2022 Patient encounter procedure Prabhjot Gipson [facility] Start: 10-04-2022 Telephone encounter Erickson berry MD Work Phone: Pre Anesthesia Comment on above: PACC (Received ) Start: 10-01-2022 Follow-up encounter Jessi Guerrero MD Work Phone: [facility] Start: 10-01-2022 End: 10-01-2022 Patient encounter procedure Jessi Guerrero MD Work Phone: [facility] Comment on above: Malignant neoplasm o f urinary bladder, unspecified site (HCC) (Primary Dx) Start: 10-01-2022 End: 10-01-2022 Admission to establishment Pac Main 7 Work Phone: [facility] Start: 10-01-2022 End: 10-01-2022 ambulatory Pac Main 7 Work Phone: Pre Anesthesia Comment on above: Pre-op evaluation (P rimary Dx); Coronary artery disease, unspecified vessel or lesion type, unspecified whether angina present, unspecified whether point lay ira or transplanted heart; Chronic atrial fibrillation (HCC); SSS (sick sinus syndrome) (HCC); Anemia in other chronic diseases classified elsewhere; Chronic kidney disease, unspecified CKD stage; Schatzki's ring of distal esophagus Start: 10-01-2022 End: 10-01-2022 Preprocedural examination done Pac Main 7 Work Phone: Pre Anesthesia Start: 09-22-2022 End: 09-22-2022 Patient encounter procedure Hemal Urban MD Work Phone: Cardiology Comment on above: H/O mitral valve rep air (Primary Dx); Hx of CABG; S/P left atrial appendage ligation; Pain in right hip; DDD (degenerative disc disease), lumbar Start: 09-17-2022 Orders Only Hemal Urban MD Work Phone: Cardiology Comment on above: Pre-operative cleara nce (Primary Dx) Start: 09-17-2022 Preoperative state Hemal johnson MD Work Phone: Cardiology Start: 09-14-2022 End: 09-14-2022 Patient encounter procedure Jose Garcia MD Work Phone: Urology Comment on above: Malignant neoplasm o f urinary bladder, unspecified site (HCC) (Primary Dx) Start: 09-08-2022 End: 09-08-2022 Encounter identifier Calvin Carpio Work Phone: [facility] Start: 09-08-2022 End: 09-08-2022 Calvin Carpio Work Phone: [facility] Start: 09-07-2022 End: 09-07-2022 Patient encounter procedure ROSSY MUELLER [facility] Start: 08-27-2022 End: 08-27-2022 Patient encounter procedure Prabhjot Gipson [facility] Start: 08-24-2022 Office outpatient vi sit 15 minutes Mylene Dunn Work Phone: [facility] Work Phone: Start: 08-14-2022 End: 08-14-[address] JE RODRIGUEZ Facility:[facility] Start: 08-12-2022 End: 08-12-2022 ambulatory ESTEFANIA MAURICIO Facility:[facility] Start: 08-11-2022 End: 08-11-2022 Patient encounter procedure Jazmine Roldan [facility] Start: 07-13-2022 End: 07-13-2022 Patient encounter procedure MS. ALEX QUIJANO SHOKaya [facility] Start: 07-09-2022 Postop follow up vis it related to original px Mylene Dunn Work Phone: HS-Mvbytjjuqh-EYH Neha [address] [place] Work Phone: Start: 07-07-2022 End: 07-07-2022 Patient encounter procedure Prabhjot Gipson [facility] Start: 06-29-2022 End: 06-29-2022 Encounter identifier Calvin Carpio Work Phone: [facility] Start: 06-29-2022 End: 06-29-2022 Calvin Carpio Work Phone: [facility] Start: 06-24-2022 Patient encounter procedure Mylene Dunn Work Phone: YJ-Jjcabbnefa-Habtq Maria D Work Phone: Start: 05-28-2022 End: 06-14-2022 Evaluation and management of inpatient Дмитрий Abu-Florencio [facility] [id number] Rm [id number] Start: 05-27-[address] DAYSI GONZALEZ . Fac ility:[facility] Start: 05-26-2022 End: 05-27-2022 Observation Vaishali IVORY [facility] Start: 05-25-2022 Encounter for preprocedural laboratory examination DR DAYSI GONZALEZ . [facility] Start: 05-24-2022 End: 05-25-[address] DAYSI GONZALEZ . Facility:[facility] Start: 05-24-2022 End: 05-25-2022 Encounter for preprocedural laboratory examination DR DAYSI GONZALEZ . Facility:[facility] Start: 05-18-[address] MYLENE DUNN Facil ity:[facility] Start: 05-17-2022 End: 05-18-[address] DAYSI GONZALEZ . Facility:[facility] Start: 05-14-2022 End: 05-15-[address] ARMANDO HA . Facility:[facility] Start: 05-10-2022 End: 05-10-2022 Patient encounter procedure Daysi GONZALEZ [facility] Start: 05-04-2022 Office outpatient vi sit 15 minutes Mylene Dunn Work Phone: [facility] Work Phone: Start: 04-30-2022 Encounter for preprocedural cardiovascular examination DR DAYSI GONZALEZ . [facility] Start: 04-30-2022 Encounter for preprocedural laboratory examination DR DAYSI GONZALEZ . [facility] Start: 04-30-2022 End: 04-30-[address] KIZZY RILEY . Facility: Start: 04-29-2022 End: 04-29-[address] DAYSI GONZALEZ . Facility: Start: 04-26-2022 End: 04-27-[address] DAYSI GONZALEZ . Facility: Start: 04-26-2022 End: 04-27-2022 Encounter for preprocedural cardiovascular examination DR DAYSI GONZALEZ . Facility: Start: 04-20-2022 End: 04-21-2022 ambulatory ORESTES SCHWARTZ Facility:[facility] Start: 04-16-2022 End: 04-17-2022 ambulatory MARY ELY Facility: Start: 03-30-2022 End: 04-04-2022 ambulatory MYLENE DUNN Facility:[facility] Start: 03-24-2022 End: 03-24-2022 Office outpatient visit 25 minutes Calvin Carpio Work Phone: [facility] Start: 03-18-2022 End: 03-18-2022 Patient encounter procedure Danni BETANCUR [facility] Start: 03-11-2022 End: 03-12-2022 ambulatory MYLENE DUNN Facility:[facility] Start: 03-09-2022 End: 03-10-2022 ambulatory MARY ELY Facility:[facility] Start: 03-03-2022 End: 03-04-[address] DAYSI GONZALEZ . Facility:[facility] Start: 02-09-2022 End: 02-09-2022 Patient encounter procedure ORESTES SCHWARTZ [facility] Start: 02-04-[address] DAYSI GONZALEZ . Fac ility:[facility] Start: 01-28-[address] DAYSI GONZALEZ . Fac ility:[facility] Start: 01-27-2022 End: 01-27-[address] RORO LINCOLN Facility:[facility] Start: 01-20-2022 End: 01-21-[address] DAYSI GONZALEZ . Facility:[facility] Start: 01-13-2022 End: 01-13-2022 Encounter identifier Calvin Gonzalez Alkaliby Work Phone: [facility] Start: 01-13-2022 End: 01-13-2022 Calvin Gonzalez Alkaliby Work Phone: [facility] Start: 11-05-2021 Chart Update Mylene Dunn Work Phone: RT-Sacxswkwobhozo-Nge [place] Work Phone: Start: 11-04-2021 End: 11-04-2021 Encounter identifier Calvin Gonzalez Alkaliby Work Phone: [facility] Start: 11-04-2021 End: 11-04-2021 Calvin Gonzalez Alkaliby Work Phone: [facility] Start: 11-04-2021 Chart Update Mylene Dunn Work Phone: XZ-Vkvgvrbxiwpcow-Gjq [place] Work Phone: Start: 09-10-2021 End: 09-11-2021 ambulatory MYLENE DUNN Facility:[facility] Start: 08-05-2021 End: 08-05-2021 Encounter identifier Kev Tabares Work Phone: [facility] Start: 08-05-2021 End: 08-05-2021 Kev Tabares Work Phone: [facility] Start: 05-13-2021 End: 05-13-2021 Office outpatient visit 15 minutes Kev Tabares Work Phone: [facility] Start: 05-05-2021 Office outpatient vi sit 15 minutes Mylene Dunn Work Phone: OZ-Gkvacjkvzmhsss-Lbl [facility] Work Phone: Start: 03-03-2021 Office outpatient vi sit 15 minutes Mylene Dunn Work Phone: BW-Zugfvbycmucvhz-Ljm [place] Work Phone: Start: 02-04-2021 End: 02-04-2021 Office outpatient visit 25 minutes Kev Tabares Work Phone: [facility] Start: 11-18-2020 Patient encounter procedure Manny Parra ZS-Npjusncpmgknmp-Mtj [place] Work Phone: Start: 11-04-2020 End: 11-04-2020 Office outpatient visit 15 minutes Kev Tabares Work Phone: [facility] Start: 08-05-2020 End: 08-05-2020 Encounter identifier Kev Tabares Work Phone: [facility] Start: 08-05-2020 End: 08-05-2020 Kev Tabares Work Phone: [facility] Start: 07-22-2020 Patient encounter procedure Manny Parra CK-Bliycjiregyzrg-Eyw [place] Work Phone: Start: 06-10-2020 End: 06-10-2020 Office outpatient visit 15 minutes Kev Tabares Work Phone: [facility] Start: 04-23-2020 End: 04-23-2020 Encounter identifier Kev Tabares Work Phone: [facility] Start: 04-23-2020 End: 04-23-2020 Kev Tabares Work Phone: [facility] Start: 04-03-2020 End: 04-03-2020 Encounter identifier Kev Tabares Work Phone: [facility] Start: 04-03-2020 End: 04-03-2020 Kev Tabares Work Phone: [facility] Start: 03-04-2020 Patient encounter procedure Manny SAHUGP-Dluaywatjmzuzf-Lpi [place] Work Phone: Start: 12-19-2019 End: 12-19-2019 Encounter identifier Kev Tabares Work Phone: [facility] Start: 12-19-2019 End: 12-19-2019 Kev Tabares Work Phone: [facility] Start: 10-23-2019 Patient encounter procedure Manny SAHUTI-Vbzsvjkzcuyvtd-Vpk [place] Work Phone: Start: 09-12-2019 End: 09-12-2019 Office outpatient visit 15 minutes Kev Tabares Work Phone: [facility] Start: 07-24-2019 Patient encounter procedure Manny SAHUSE-Zcyrjqmvkhcdkb-Swy [place] Work Phone: Start: 07-03-2019 Patient encounter procedure Manny SAHUVW-Bxghpeieapwvhn-Mcc [place] Work Phone: Start: 06-13-2019 End: 06-13-2019 Office outpatient visit 15 minutes Kev Tabares Work Phone: [facility] Start: 04-03-2019 Patient encounter procedure Manny SAHUPE-Faifchtjcnrjkm-Nye [place] Work Phone: Start: 03-15-2019 End: 03-15-2019 Encounter identifier Kev Tabares Work Phone: [facility] Start: 03-15-2019 End: 03-15-2019 Kev Tabares Work Phone: [facility] Start: 02-07-2019 End: 02-07-2019 Encounter identifier Kev Tabares Work Phone: [facility] Start: 02-07-2019 End: 02-07-2019 Kev Tabares Work Phone: [facility] Start: 01-16-2019 Patient encounter procedure Manny Parra RR-Rfcoxqqgfdruzr-[facility]uy [facility] Work Phone: Start: 12-06-2018 End: 12-06-2018 Encounter identifier Kev Tabares Work Phone: [facility] [place] Start: 12-06-2018 End: 12-06-2018 Kev Tabares Work Phone: [facility] Start: 08-23-2018 End: 08-23-2018 Encounter identifier Kev Tabares Work Phone: [facility] Start: 08-23-2018 End: 08-23-2018 Kev Tabares Work Phone: [facility] Start: 05-17-2018 End: 05-17-2018 Office outpatient visit 10 minutes Kev Tabares Work Phone: [facility] Start: 03-22-2018 End: 03-22-2018 Encounter identifier Kev Tabares Work Phone: [facility] [place] Start: 03-22-2018 End: 03-22-2018 Kev Tabares Work Phone: [facility] [place] Start: 02-15-2018 End: 02-15-2018 Encounter identifier Kev Tabares Work Phone: [facility] Start: 02-15-2018 End: 02-15-2018 Kev Tabares Work Phone: [facility] [place] Start: 02-01-2018 End: 02-01-2018 Encounter identifier Kev Tabares Work Phone: [facility] Start: 02-01-2018 End: 02-01-2018 Kev Tabares Work Phone: [facility] [place] Start: 12-29-2017 End: 12-29-2017 Encounter identifier Kev Tabares Work Phone: [facility] Start: 12-29-2017 End: 12-29-2017 Kev Tabares Work Phone: [facility] Start: 12-08-2017 End: 12-08-2017 Encounter identifier Kev Tabares Work Phone: [facility] Start: 12-08-2017 End: 12-08-2017 Kev Tabares Work Phone: [facility] Start: 09-28-2017 End: 09-28-2017 Encounter identifier Kev Tabares Work Phone: [facility] [place] Start: 09-28-2017 End: 09-28-2017 Kev Tabares Work Phone: [facility] [place] Start: 09-07-2017 End: 09-07-2017 Encounter identifier Kev Tabares Work Phone: [facility] [place] Start: 09-07-2017 End: 09-07-2017 Kev Tabares Work Phone: [facility] [place] Start: 06-22-2017 End: 06-22-2017 Encounter identifier Kev Tabares Work Phone: [facility] Start: 06-22-2017 End: 06-22-2017 Kev Tabares Work Phone: [facility] [place] Start: 05-04-2017 End: 05-04-2017 Encounter identifier Kev Tabares Work Phone: [facility] [place] Start: 05-04-2017 End: 05-04-2017 Kev Tabares Work Phone: [facility] Start: 03-31-2017 End: 03-31-2017 Office outpatient new 60 minutes Kev Tabares Work Phone: [facility] Start: 11-05-2015 End: 11-05-2015 Telephone encounter Blayne Mo PA-C Work Phone: Orthopaedics Comment on above: Patient Question Procedures Date Procedure Procedure Detail Performing Clinician Start: 07-03-2025 Radiologic examination knee 3 views Fadi VALDIVIA Work Phone: Start: 06-12-2025 End: 06-12-2025 [facility] medical xm&eval intermediate estab pt Refractive error Halima Ponce DO Work Phone: Comment on above: Refractive error (Primary Dx) Start: 04-23-2025 End: 04-23-2025 Eylea 1mg Pre-filled Syringe Heber Munoz MD Start: 04-23-2025 Eylea 1mg Pre-filled Syringe Heber Munoz Start: 04-23-2025 End: 04-23-2025 Fluorescein angrph w/multiframe i&r uni/bi Heber Gonzalez MD Start: 04-23-2025 End: 04-23-2025 Intravitreal njx pharmacologic agt spx Heber Gonzalez MD Start: 04-09-2025 Arthrocentesis aspir&/inj major jt/bursa w/o us Fadi VALDIVIA Work Phone: Start: 03-13-2025 Computerized ophthalmic imaging optic nerve Halima Ponce DO Work Phone: Start: 03-13-2025 End: 03-13-2025 [facility]eval compre new pt 1/> vst 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) Halima Ponce DO Work Phone: Comment on above: Central retinal vein occlusion with macu lar edema of right eye (CMS-HCC) (Primary Dx); Primary open angle glaucoma (POAG) of both eyes, mild stage ; Age-related nuclear cataract of both eyes; Dry eyes; 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; Macular scar of left eye; Blepharitis of upper and lower eyelids of both eyes, unspecified type Start: 02-27-2025 Arthrocentesis aspir&/inj major jt/bursa w/us Fadi VALDIVIA Work Phone: Start: 01-29-2025 End: 01-29-2025 Computerized ophthalmic imaging retina Heber Gonzalez MD Start: 01-29-2025 End: 01-29-2025 Eylea 1mg Pre-filled Syringe Heber Munoz MD Start: 01-29-2025 Eylea 1mg Pre-filled Syringe Heber Munoz Start: 01-29-2025 End: 01-29-2025 Intravitreal njx pharmacologic agt spx Heber Gonzalez MD Start: 12-20-2024 Radiologic examination knee 3 views Jason Villatoro DO Work Phone: Start: 12-07-2024 Plain radiography of pelvis Monty weathers DO Work Phone: Start: 12-04-2024 End: 12-04-2024 Computerized ophthalmic imaging retina Heber Gonzalez MD Start: 12-04-2024 End: 12-04-2024 Eylea 1mg Pre-filled Syringe Heber Munoz MD Start: 12-04-2024 Eylea 1mg Pre-filled Syringe Heber Munoz Start: 12-04-2024 End: 12-04-2024 Intravitreal njx pharmacologic agt spx Heber Gonzalez MD Start: 11-16-2024 Upper gastrointestinal endoscopy for directed placement of percutaneous gastrostomy tube Monty Rubio DO Work Phone: Start: 11-16-2024 Basic metabolic panel calcium total Amadou Arreguin MD Work Phone: Start: 11-16-2024 HEMOGRAM CBC WITHOUT DIFF ([facility]) Amadou Arreguin MD Work Phone: Start: 11-15-2024 Antibody screen Orestes Guthrie Comment on above: Result Comment: PERFORMED BY: [place] [id number] [place] [address] [employer] JESSI ARAMBULA M.D. Start: 11-12-2024 Plain radiography of pelvis Monty weathers DO Work Phone: Start: 11-12-2024 Revision of left total hip arthroplasty Monty Rubio DO Work Phone: Start: 11-10-2024 Plain radiography of pelvis Monty Ianna ntuono DO Work Phone: Start: 11-10-2024 Plain X-ray of left femur Monty garcia DO Work Phone: Start: 11-01-2024 Blood typing serologic rh (d) Naldo posadas MD Work Phone: Start: 10-31-2024 Glucose quantitative blood xcpt reagent strip J Carlos Pitts MD Work Phone: Start: 10-31-2024 Glucose quantitative blood xcpt reagent strip J Carlos Pitts MD Work Phone: Start: 10-31-2024 Glucose quantitative blood xcpt reagent strip J Carlos Pitts MD Work Phone: Start: 10-31-2024 Comprehensive metabolic panel Naldo posadas MD Work Phone: Start: 10-30-2024 Glucose quantitative blood xcpt reagent strip J Carlos Pitts MD Work Phone: Start: 10-30-2024 Glucose quantitative blood xcpt reagent strip J Carlos Pitts MD Work Phone: Start: 10-30-2024 Glucose quantitative blood xcpt reagent strip J Carols Pitts MD Work Phone: Start: 10-30-2024 Glucose quantitative blood xcpt reagent strip J Carlos Pitts MD Work Phone: Start: 10-30-2024 Comprehensive metabolic panel Naldo posadas MD Work Phone: Start: 10-30-2024 Glucose quantitative blood xcpt reagent strip J Carlos Pitts MD Work Phone: Start: 10-29-2024 Glucose quantitative blood xcpt reagent strip Naldo Calzada MD Work Phone: Start: 10-29-2024 AIRWAY CLEARANCE TECHNIQUES Naldo webb MD Work Phone: Start: 10-29-2024 AIRWAY CLEARANCE TECHNIQUES Naldo webb MD Work Phone: Start: 10-29-2024 BB ORDER ONLY - ANTIBODY IDENTIFICATION Florencio Chandra MD Work Phone: Start: 10-29-2024 Bld bank phys svcs diffc cross match&/eval rep Florencio Chandra MD Work Phone: Start: 10-29-2024 Blood typing serologic rh (d) Naldo posadas MD Work Phone: Start: 10-29-2024 Comprehensive metabolic panel Naldo posadas MD Work Phone: Start: 10-29-2024 Culture bacterial blood aerobic w/id isolates Rubén Lal MD Work Phone: Start: 10-28-2024 AIRWAY CLEARANCE TECHNIQUES Naldo webb MD Work Phone: Start: 10-28-2024 Glucose quantitative blood xcpt reagent strip Jason Soliz DO Work Phone: Start: 10-28-2024 Comprehensive metabolic panel Naldo posadas MD Work Phone: Start: 10-27-2024 Glucose quantitative blood xcpt reagent strip Jason Soliz DO Work Phone: Start: 10-27-2024 Glucose quantitative blood xcpt reagent strip Jason Soliz DO Work Phone: Start: 10-27-2024 AIRWAY CLEARANCE TECHNIQUES Naldo webb MD Work Phone: Start: 10-27-2024 Glucose quantitative blood xcpt reagent strip Jason Soliz DO Work Phone: Start: 10-27-2024 AIRWAY CLEARANCE TECHNIQUES Naldo webb MD Work Phone: Start: 10-27-2024 Glucose quantitative blood xcpt reagent strip Jason Soliz DO Work Phone: Start: 10-27-2024 Glucose quantitative blood xcpt reagent strip Jason Soliz DO Work Phone: Start: 10-27-2024 AIRWAY CLEARANCE TECHNIQUES Naldo webb MD Work Phone: Start: 10-27-2024 Glucose quantitative blood xcpt reagent strip Jason Soliz DO Work Phone: Start: 10-27-2024 End: 10-27-2024 Comprehensive metabolic panel Naldo posadas MD Work Phone: Start: 10-26-2024 Glucose quantitative blood xcpt reagent strip Jason Soliz DO Work Phone: Start: 10-26-2024 Radiologic exam chest single view Anna pennington MD Work Phone: Start: 10-26-2024 AIRWAY CLEARANCE TECHNIQUES Naldo webb MD Work Phone: Start: 10-26-2024 Radiologic exam abdomen 1 view Rubén dupree MD Work Phone: Start: 10-26-2024 Radiologic exam chest single view Anna pennington MD Work Phone: Start: 10-26-2024 AIRWAY CLEARANCE TECHNIQUES Naldo webb MD Work Phone: Start: 10-26-2024 Radiologic exam chest single view Rubén Lal MD Work Phone: Start: 10-26-2024 AIRWAY CLEARANCE TECHNIQUES Naldo webb MD Work Phone: Start: 10-26-2024 BB ORDER ONLY - ANTIBODY IDENTIFICATION Florencio Chandra MD Work Phone: Start: 10-26-2024 Bld bank phys svcs diffc cross match&/eval rep Florencio Chandra MD Work Phone: Start: 10-26-2024 Blood typing serologic rh (d) Naldo posadas MD Work Phone: Start: 10-26-2024 Comprehensive metabolic panel Naldo posadas MD Work Phone: Start: 10-26-2024 End: 10-26-2024 Smr prim src gram/giemsa stain bct fungi/cell Tres Acuña DO Work Phone: Start: 10-25-2024 Ecg routine ecg w/least 12 lds trcg only w/o i&r Florencio Chandra MD Work Phone: Start: 10-25-2024 Chloride bld Tres Acuña DO Work Phone: Start: 10-25-2024 AIRWAY CLEARANCE TECHNIQUES Naldo webb MD Work Phone: Start: 10-25-2024 Iadna s aureus methicillin resist amp probe tq Rubén Lal MD Work Phone: Start: 10-25-2024 Gases blood ph direct pepper xcpt pulse oximitry Rubén Lal MD Work Phone: Start: 10-25-2024 AIRWAY CLEARANCE TECHNIQUES Naldo webb MD Work Phone: Start: 10-25-2024 Radiologic exam chest single view Rubén Lal MD Work Phone: Start: 10-25-2024 Comprehensive metabolic panel Naldo posadas MD Work Phone: Start: 10-24-2024 Glucose quantitative blood xcpt reagent strip Jason Soliz DO Work Phone: Start: 10-24-2024 Artl cathj/cannulj mntr/transfusion spx prq Rubén Lal MD Work Phone: Start: 10-24-2024 End: 10-24-2024 Chloride bld Maren Payne MD Work Phone: Start: 10-24-2024 Culture bacterial blood aerobic w/id isolates Rubén Lal MD Work Phone: Start: 10-24-2024 Program eval implantable in persn dual ld pacer Rubén Lal MD Work Phone: Start: 10-24-2024 Echo tthrc r-t 2d w/wom-mode compl spec&colr d Rubén Lal MD Work Phone: Start: 10-24-2024 Glucose quantitative blood xcpt reagent strip Jason Soliz DO Work Phone: Start: 10-24-2024 Radiologic exam chest single view Rubén Lal MD Work Phone: Start: 10-24-2024 End: 10-24-2024 Chloride bld Rubén Lal MD Work Phone: Start: 10-24-2024 Ecg routine ecg w/least 12 lds trcg only w/o i&r Naldo Calzada MD Work Phone: Start: 10-24-2024 PULSE OXIMETRY, CONTINUOUS Rubén Lal MD Work Phone: Start: 08-14-2024 End: 08-14-2024 Computerized ophthalmic imaging retina Heber Gonzalez MD Start: 08-14-2024 End: 08-14-2024 Eylea 1mg Pre-filled Syringe Heber Munoz MD Start: 08-14-2024 Eylea 1mg Pre-filled Syringe Heber Munoz Start: 08-14-2024 End: 08-14-2024 Intravitreal njx pharmacologic agt spx Heber Gonzalez MD Start: 07-20-2024 CREATININE BLD Jose Garcia MD Work Phone: Start: 06-28-2024 Urnls dip stick/tablet rgnt auto w/o microscopy Jose Garcia MD Work Phone: Start: 06-07-2024 End: 06-07-2024 Computerized ophthalmic imaging retina Heber Gonzalez MD Start: 06-07-2024 End: 06-07-2024 Eylea 1mg Pre-filled Syringe Heber Munoz MD Start: 06-07-2024 End: 06-07-2024 Intravitreal njx pharmacologic agt spx Heber Gonzalez MD Start: 03-22-2024 End: 03-22-2024 Computerized ophthalmic imaging retina Heber Gonzalez MD Start: 03-22-2024 End: 03-22-2024 Eylea 1mg Pre-filled Syringe Heber Munoz MD Start: 03-22-2024 End: 03-22-2024 Intravitreal njx pharmacologic agt spx Heber Gonzalez MD Start: 02-06-2024 Urine culture MD Mylene Dunn Work Phone: Start: 01-12-2024 End: 01-12-2024 Computerized ophthalmic imaging retina Heber Gonzalez MD Start: 01-12-2024 End: 01-12-2024 Eylea 1mg Pre-filled Syringe Heber Munoz MD Start: 01-12-2024 End: 01-12-2024 Intravitreal njx pharmacologic agt spx Heber Gonzalez MD Start: 01-05-2024 Urnls dip stick/tablet rgnt auto w/o microscopy Jose Garcia MD Work Phone: Start: 10-27-2023 End: 10-27-2023 Computerized ophthalmic imaging retina Heber Gonzalez MD Start: 10-27-2023 End: 10-27-2023 Eylea 1mg Pre-filled Syringe Heber Munoz MD Start: 10-27-2023 End: 10-27-2023 Fundus Photos No Charge Bilateral Heber Gonzalez MD Start: 10-27-2023 End: 10-27-2023 Intravitreal njx pharmacologic agt spx Heber Gonzalez MD Start: 10-27-2023 Urnls dip stick/tablet rgnt auto w/o microscopy Jose Garcia MD Work Phone: Start: 07-27-2023 End: 07-27-2023 Computerized ophthalmic imaging retina Heber Gonzalez MD Start: 07-27-2023 End: 07-27-2023 Eylea 1mg Pre-filled Syringe Heber Munoz MD Start: 07-27-2023 End: 07-27-2023 Intravitreal njx pharmacologic agt spx Heber Gonzalez MD Start: 06-09-2023 Urnls dip stick/tablet rgnt auto w/o microscopy Jose Garcia MD Work Phone: Start: 05-18-2023 End: 05-18-2023 Computerized ophthalmic imaging retina Heber Gonzalez MD Start: 05-18-2023 End: 05-18-2023 Eylea 1mg Pre-filled Syringe Heber Munoz MD Start: 05-18-2023 End: 05-18-2023 Intravitreal njx pharmacologic agt spx Heber Gonzalez MD Start: 03-09-2023 End: 03-09-2023 Computerized ophthalmic imaging retina Heber Gonzalez MD Start: 03-09-2023 End: 03-09-2023 Eylea 1mg Pre-filled Syringe Heber Munoz MD Start: 03-09-2023 End: 03-09-2023 Intravitreal njx pharmacologic agt spx Heber Gonzalez MD Start: 12-08-2022 End: 12-08-2022 Computerized ophthalmic imaging retina Heber Gonzalez MD Start: 12-08-2022 End: 12-08-2022 Eylea 1mg Pre-filled Syringe Heber Munoz MD Start: 12-08-2022 End: 12-08-2022 Intravitreal njx pharmacologic agt spx Heber Gonzalez MD Start: 10-19-2022 Urnls dip stick/tablet reagent auto microscopy Bulk Order Provider Start: 10-08-2022 Biopsy of bladder ROSSY BROWNRY Start: 10-08-2022 Transurethral prostatectomy ROSSY BROWN COMPA Start: 10-01-2022 PACEMAKER CLINIC CHECK Jessi Guerrero MD Work Phone: Start: 09-17-2022 History of coronary artery bypass grafting S/P CABG (coronary artery bypass graft) Jose Garcia MD Work Phone: Start: 09-08-2022 End: 09-08-2022 Computerized ophthalmic imaging retina Heber Gonzalez MD Start: 09-08-2022 End: 09-08-2022 Eylea 1mg Pre-filled Syringe Heber Munoz MD Start: 09-08-2022 End: 09-08-2022 Intravitreal njx pharmacologic agt spx Heber Gonzalez MD Start: 06-29-2022 End: 06-29-2022 Computerized ophthalmic imaging retina Heber Gonzalez MD Start: 06-29-2022 End: 06-29-2022 Eylea 1mg Pre-filled Syringe Heber Munoz MD Start: 06-29-2022 End: 06-29-2022 Intravitreal njx pharmacologic agt spx Heber Gonzalez MD Start: 06-13-2022 Xray Chest/Abdomen Radiograph for OG/NG Placement Pati Cuba Duc Start: 06-11-2022 Echocardiography Mylene Dunn Work Phone: Start: 06-08-2022 End: 06-08-2022 Card Cath non-bill outside study Non Credentialed Referring Start: 06-08-2022 End: 06-08-2022 Card Echo non-bill outside study Non Credentialed Referring Start: 06-06-2022 End: 06-06-2022 EKG impression Kinjal Cunha Lea Start: 06-05-2022 End: 06-07-2022 Cardiovascular Device Monitoring - Implantable, Wearable, In-Person and Remote Stan Rawls Start: 06-05-2022 End: 06-05-2022 Arterial Full Panel -Stat Ana saundres Start: 06-04-2022 End: 06-04-2022 Cardiovascular Device Monitoring - Implantable, Wearable, In-Person and Remote Bhupendra Hare Start: 06-01-2022 End: 06-01-2022 Release Blood Product-Packed Red Blood Cells Nick Milioglpalak Start: 05-31-2022 End: 05-31-2022 Release Blood Product-Packed Red Blood Cells [place] Start: 05-31-2022 End: 05-31-2022 Release Blood Product-Packed Red Blood Cells [place] Start: 05-31-2022 Release Blood Product-Packed Red Blood Cells [place] Start: 05-31-2022 End: 05-31-2022 Release Blood Product-Packed Red Blood Cells Nick Milioglou Start: 05-28-2022 Lipid 1996 panel - Serum or Plasma Riaz Parra MD Work Phone: Start: 05-27-2022 End: 06-08-2022 Card Echo non-bill outside study Non [facility] Credentialed Referring Start: 05-27-2022 Catheterization of left heart Vaishali IVORY Start: 03-30-2022 Esophagogastroduodenoscopy Daysi Subramanian Start: 03-24-2022 End: 03-24-2022 Computerized ophthalmic imaging retina Heber Gonzalez MD Start: 03-24-2022 End: 03-24-2022 Eylea 1mg Pre-filled Syringe Heber Munoz MD Start: 03-24-2022 End: 03-24-2022 Intravitreal njx pharmacologic agt spx Heber Gonzalez MD Start: 01-26-2022 Cystoscopy ORESTES SCHWARTZ Start: 01-13-2022 End: 01-13-2022 Computerized ophthalmic imaging retina Heber Gonzalez MD Start: 01-13-2022 End: 01-13-2022 Eylea 1mg Pre-filled Syringe Heber Munoz MD Start: 01-13-2022 End: 01-13-2022 Intravitreal njx pharmacologic agt spx Heber Gonzalez MD Start: 11-04-2021 End: 11-04-2021 Computerized ophthalmic imaging retina Heber Gonzalez MD Start: 11-04-2021 End: 11-04-2021 Eylea 1mg Pre-filled Syringe Heber Munoz MD Start: 11-04-2021 End: 11-04-2021 Intravitreal njx pharmacologic agt spx Heber Gonzalez MD Start: 08-05-2021 End: 08-05-2021 Computerized ophthalmic imaging retina Heber Gonzalez MD Start: 08-05-2021 End: 08-05-2021 Eylea 1mg Pre-filled Syringe Heber Munoz MD Start: 08-05-2021 End: 08-05-2021 Intravitreal njx pharmacologic agt spx Heber Gonzalez MD Start: 05-13-2021 End: 05-13-2021 Computerized ophthalmic imaging retina Heber Gonzalez MD Start: 05-13-2021 End: 05-13-2021 Eylea 1mg Pre-filled Syringe Heber Munoz MD Start: 05-13-2021 End: 05-13-2021 Intravitreal njx pharmacologic agt spx Heber Gonzalez MD Start: 02-04-2021 End: 02-04-2021 Computerized ophthalmic imaging retina Heber Gonzalez MD Start: 02-04-2021 End: 02-04-2021 Eylea 1mg Pre-filled Syringe Heber Munoz MD Start: 02-04-2021 End: 02-04-2021 Intravitreal njx pharmacologic agt spx Heber Gonzalez MD Start: 11-04-2020 End: 11-04-2020 Computerized ophthalmic imaging retina Heber Gonzalez MD Start: 11-04-2020 End: 11-04-2020 Eylea 1mg Pre-filled Syringe Heber Munoz MD Start: 11-04-2020 End: 11-04-2020 Intravitreal njx pharmacologic agt spx Heber Gonzalez MD Start: 08-05-2020 End: 08-05-2020 Computerized ophthalmic imaging retina Heber Gonzalez MD Start: 08-05-2020 End: 08-05-2020 Eylea 1mg Pre-filled Syringe Heber Munoz MD Start: 08-05-2020 End: 08-05-2020 Intravitreal njx pharmacologic agt spx Heber Gonzalez MD Start: 06-10-2020 End: 06-10-2020 Computerized ophthalmic imaging retina Heber Gonzalez MD Start: 04-23-2020 End: 04-23-2020 Computerized ophthalmic imaging retina Heber Gonzalez MD Start: 04-23-2020 End: 04-23-2020 Eylea 1mg Pre-filled Syringe Heber Munoz MD Start: 04-23-2020 End: 04-23-2020 Intravitreal njx pharmacologic agt spx Heber Gonzalez MD Start: 04-03-2020 End: 04-03-2020 Computerized ophthalmic imaging retina Heber Gonzalez MD Start: 12-19-2019 End: 12-19-2019 Aflibercept injection Heber Gonzalez MD Start: 12-19-2019 End: 12-19-2019 Computerized ophthalmic imaging retina Heber Gonzalez MD Start: 12-19-2019 End: 12-19-2019 Intravitreal njx pharmacologic agt spx Heber Gonzalez MD Start: 09-12-2019 End: 09-12-2019 Aflibercept injection Heber Gonzalez MD Start: 09-12-2019 End: 09-12-2019 Computerized ophthalmic imaging retina Heber Gonzalez MD Start: 09-12-2019 End: 09-12-2019 Intravitreal njx pharmacologic agt spx Heber Gonzalez MD Start: 06-13-2019 End: 06-13-2019 Aflibercept injection Heber Gonzalez MD Start: 06-13-2019 End: 06-13-2019 Computerized ophthalmic imaging retina Heber Gonzalez MD Start: 06-13-2019 End: 06-13-2019 Intravitreal njx pharmacologic agt spx Heber Gonzalez MD Start: 03-15-2019 End: 03-15-2019 Aflibercept injection Heber Gonzalez MD Start: 03-15-2019 End: 03-15-2019 Computerized ophthalmic imaging retina Heber Gonzalez MD Start: 03-15-2019 End: 03-15-2019 Intravitreal njx pharmacologic agt spx Heber Gonzalez MD Start: 02-07-2019 End: 02-07-2019 Computerized ophthalmic imaging retina Heber Gonzalez MD Start: 12-06-2018 End: 12-06-2018 Aflibercept injection Heber Gonzalez MD Start: 12-06-2018 End: 12-06-2018 Computerized ophthalmic imaging retina Heber Gonzalez MD Start: 12-06-2018 End: 12-06-2018 Intravitreal njx pharmacologic agt spx Heber Gonzalez MD Start: 08-23-2018 End: 08-23-2018 Aflibercept injection Heber Gonzalez MD Start: 08-23-2018 End: 08-23-2018 Computerized ophthalmic imaging retina Heber Gonzalez MD Start: 08-23-2018 End: 08-23-2018 Intravitreal njx pharmacologic agt spx Heber Gonzalez MD Start: 05-17-2018 End: 05-17-2018 Aflibercept injection Heber Gonzalez MD Start: 05-17-2018 End: 05-17-2018 Computerized ophthalmic imaging retina Heber Gonzalez MD Start: 05-17-2018 End: 05-17-2018 Intravitreal njx pharmacologic agt spx Heber Ernesto Barros MD Start: 03-22-2018 End: 03-22-2018 Computerized ophthalmic imaging retina Heber Gonzalez MD Start: 02-15-2018 End: 02-15-2018 Aflibercept injection Heber Gonzalez MD Start: 02-15-2018 End: 02-15-2018 Computerized ophthalmic imaging retina Heber Gonzalez MD Start: 02-15-2018 End: 02-15-2018 Intravitreal njx pharmacologic agt spx Heber Gonzalez MD Start: 02-01-2018 End: 02-01-2018 Computerized ophthalmic imaging retina Heber Gonzalez MD Start: 12-29-2017 End: 12-29-2017 Computerized ophthalmic imaging retina Heber Gonzalez MD Start: 12-08-2017 End: 12-08-2017 Computerized ophthalmic imaging retina Heber Gonzalez MD Start: 09-28-2017 End: 09-28-2017 Aflibercept injection Heber Gonzalez MD Start: 09-28-2017 End: 09-28-2017 Computerized ophthalmic imaging retina Heber Gonzalez MD Start: 09-28-2017 End: 09-28-2017 Intravitreal njx pharmacologic agt spx Heber Gonzalez MD Start: 09-07-2017 End: 09-07-2017 Computerized ophthalmic imaging retina Heber Gonzalez MD Start: 06-22-2017 End: 06-22-2017 Aflibercept injection Heber Gonzalez MD Start: 06-22-2017 End: 06-22-2017 Computerized ophthalmic imaging retina Heber Gonzalez MD Start: 06-22-2017 End: 06-22-2017 Intravitreal njx pharmacologic agt spx Heber Gonzalez MD Start: 05-04-2017 End: 05-04-2017 Aflibercept injection Heber Gonzalez MD Start: 05-04-2017 End: 05-04-2017 Computerized ophthalmic imaging retina Heber Gonzalez MD Start: 05-04-2017 End: 05-04-2017 Intravitreal njx pharmacologic agt spx Heber Gonzalez MD Start: 03-31-2017 End: 03-31-2017 Aflibercept injection Heber Gonzalez MD Start: 03-31-2017 End: 03-31-2017 Fluorescein angrph w/multiframe i&r uni/bi Heber Gonzalez MD Start: 03-31-2017 End: 03-31-2017 Intravitreal njx pharmacologic agt spx Heebr Gonzalez MD Start: 12-02-2010 Transrectal biopsy of prostate using ultrasound guidance ORESTES SCHWARTZ Atrial operation Mylene chilel Work Phone: [facility] SAL[facility] OTHANPollo Coronary artery bypass graft Mylene Dunn Work Phone: Hernia of abdominal cavity (disorder) ORESTES SCHWARTZ Comment on above: x4 Hernia repair Manny Parra History of coronary artery bypass grafting S/P CABG x 3 Mylene Dunn Work Phone: History of coronary artery bypass grafting Hx of CABG Hemal Urban MD Work Phone: History of coronary artery bypass grafting S/P CABG x 3 Monty Rubio DO Work Phone: History of Gastroint estinal Surgery Manny Parra History of Pacemaker Placement Manny Parra Insertion of intraca rdiac pacemaker ORESTES SCHWARTZ Prosthetic arthroplasty of the hip ORESTES SCHWARTZ Repair of femoral he rnia with groin incision ORESTES SCHWARTZ Repair of mitral valve Mell Dunn Work Phone: Tonsillectomy BHUPENDRANEWCASTLEKeaton ADAMS Total replacement of hip Pie vincente Ian Plan of Treatment Date Care Activity Detail Author Start: 11-16-2027 Diabetes Screening Diabetes Screening [facility] Start: 05-28-2027 Lipid panel [facility] Start: 10-31-2025 Creatinine measurement [facility] Start: 10-31-2025 Diabetes mellitus screening [facility] Start: 10-31-2025 Potassium measurement [facility] Start: 10-24-2025 Echocardiography Echocardiogram [facility] Start: 10-24-2025 [facility] Start: 10-01-2025 DIABETES SCREEN DIABETES SCREEN [facility] Start: 10-01-2025 Diabetes Screening Diabetes Screening [facility] Start: 08-06-2025 End: 08-06-2025 Patient encounter procedure 08/06/2025 10:15 AM EST Office Visit [place] [address] [phone] [place] [address] [place] [address] [facility] Start: 07-19-2025 End: 07-19-2025 Patient encounter procedure 07/19/2025 9:30 AM EDT Procedure Visit [facility] [address] [place] [address] Jason Villatoro DO [address] [place] [address] [facility] [place] [facility] Start: 07-12-2025 End: 07-12-2025 Patient encounter procedure [facility] Start: 07-09-2025 Bravo Arce 12wk Io Oct Eyl Od [facility] Work Phone: Start: 07-04-2025 End: 07-04-2025 Patient encounter procedure 07/04/2025 9:15 AM EDT Office Visit Urology [address] [address] Jose Garcia MD [address] [place], [place] [id number] [facility] Comment on above: [facility] Start: 07-03-2025 End: 07-03-2025 Patient encounter procedure 07/03/2025 10:30 AM EDT Procedure Visit [facility] [address] [address] Fadi Montanez PA [address] [place] [address] Arrived [facility] Comment on above: Arrived Start: 07-01-2025 Patient referral [facility] Work Phone: Start: 06-12-2025 End: 06-12-2025 Patient encounter procedure 06/12/2025 10:00 AM EDT Office Visit [facility] [address] [place] [phone] Halima Ponce DO [address] [place] [address] Arrived [facility] Comment on above: Arrived Start: 05-27-2025 Influenza vaccination Influenza Vaccine (#1) [facility] Start: 04-09-2025 End: 04-09-2025 Patient encounter procedure 04/09/2025 1:45 PM EDT Office Visit [facility] [address] [place] [phone] Fadi Montanez, PA [address] [place] [address] Arrived [facility] Comment on above: Arrived Start: 03-13-2025 End: 03-13-2025 Patient encounter procedure [facility] Comment on above: Arrived Start: 02-27-2025 End: 02-27-2025 Patient encounter procedure 02/27/2025 10:45 AM EDT Office Visit [facility] [address] [place] [phone] Fadi Montanez, PA [address] [place] [address] Arrived [facility] Comment on above: Arrived Start: 01-29-2025 Bravo Arce/8wk IO EYL OD (09/28) OCT [facility] Work Phone: Start: 12-27-2024 End: 12-27-2024 Patient encounter procedure 12/27/2024 9:45 AM EDT Office Visit Urology [address] [address] Jose Garcia MD [address] [place], [place] [id number] [facility] Comment on above: [facility] Start: 12-07-2024 Plain X-ray of right hip XR hip RT min 2V(w/wo pelvis)* [facility] Start: 12-07-2024 XR Hip - right 2 Views [facility] Start: 12-04-2024 Counseling about tobacco use Tobacco cessation counseling [facility] Start: 11-28-2024 [facility] Start: 11-26-2024 Referral to palliative care physician [facility] Start: 11-24-2024 [facility] Start: 11-20-2024 End: 11-20-2024 ambulatory [facility] Start: 11-20-2024 End: 11-20-2024 Patient encounter procedure 11/20/2024 12:30 PM EST Office Visit [facility] [address] [place] [address] [place] [address] [place] [address] [facility] Start: 11-18-2024 Hospital admission [facility] Start: 11-18-2024 Referral to clinical marketing systems analyst [facility] Start: 11-18-2024 [facility] Start: 11-14-2024 Referral to general surgeon [facility] Start: 11-14-2024 [facility] Start: 11-13-2024 [facility] Start: 11-13-2024 Referral to rehabilitation physician [facility] Start: 11-11-2024 Comprehensive metabolic 2000 panel - Serum or Plasma [facility] Start: 11-11-2024 [facility] Start: 11-10-2024 End: 11-10-2024 [facility] Start: 11-10-2024 Referral to utilization engineer [facility] Start: 11-10-2024 Physical therapy procedure [facility] Start: 11-10-2024 Referral to occupational therapist [facility] Start: 11-10-2024 Consultation [facility] Start: 11-10-2024 Hospital admission [facility] Start: 11-10-2024 Insertion of Feeding Device into Stomach, Percutaneous Approach Insertion of Feeding Device into Stomach, Percutaneous Approach [facility] Start: 09-26-2024 Advance Directive Discussion Advance Directive Discussion [facility] Start: 07-20-2024 End: 07-20-2024 Patient encounter procedure 07/20/2024 8:45 AM EDT Appointment Radiology [facility] [address] [place] [address] [place] [address] CT Urogram with and without IVC Radiology Pet CT Comment on above: CT Urogram with and without IVC Start: 07-19-2024 End: 10-18-2024 CREATININE BLD CREATININE BLD Lab Routine Malignant neoplasm of urinary bladder, unspecified site (HCC) Expected: 07/19/2024, Expires: 10/18/2024 [facility] Work Phone: Comment on above: Expected: 07/19/2024, Expires: 5 Start: 05-27-2024 COVID-19 Vaccine ( season) COVID-19 Vaccine ( season) [facility] Start: 05-27-2024 Covid-19 Vaccine ( season) Covid-19 Vaccine () [facility] Start: 05-27-2024 Influenza vaccination Influenza Vaccine (#1) [facility] Start: 05-27-2024 [facility] Start: 03-22-2024 Smoking cessation assistance Tobacco cessation counseling [facility] Start: 01-05-2024 End: 04-05-2024 CREATININE BLD CREATININE BLD Lab Routine Malignant neoplasm of urinary bladder, unspecified site (HCC) Bladder stone Expected: 01/05/2024, Expires: 04/05/2024 [facility] Work Phone: Comment on above: Expected: 01/05/2024, Expires: 4 Start: 12-20-2023 End: 03-20-2024 Bacteria identified in Urine by Culture [facility] Work Phone: Comment on above: Expected: 12/20/2023, Expires: 4 Start: 12-20-2023 End: 03-20-2024 Urinalysis complete panel - Urine [facility] Work Phone: Comment on above: Expected: 12/20/2023, Expires: 4 Start: 10-27-2023 Smoking cessation education Tobacco cessation counseling [facility] Start: 09-26-2023 Advance Directive Discussion Advance Directive Discussion [facility] Start: 09-26-2023 Behavioral Health Screening Behavioral Health Screening [facility] Start: 09-26-2023 Depression Assessment Depression Assessment [facility] Start: 09-06-2023 End: 12-06-2023 Bacteria identified in Urine by Culture URINE CULTURE Microbiology Routine Screening for genitourinary condition Expected: 09/06/2023, Expires: 12/06/2023 [facility] Work Phone: Comment on above: Expected: 09/06/2023, Expires: 4 Start: 09-06-2023 End: 12-06-2023 Urinalysis complete panel - Urine URINALYSIS, WITH MICROSCOPIC Lab Routine Screening for genitourinary condition Expected: 09/06/2023, Expires: 12/06/2023 [facility] Work Phone: Comment on above: Expected: 09/06/2023, Expires: 4 Start: 08-04-2023 Bacteria identified in Urine by Culture [facility] Start: 07-05-2023 End: 09-04-2023 Bacteria identified in Urine by Culture URINE CULTURE Microbiology Routine Screening for genitourinary condition Expected: 07/05/2023, Expires: 09/04/2023 [facility] Work Phone: Comment on above: Expected: 07/05/2023, Expires: 3 Start: 07-05-2023 End: 09-04-2023 Urinalysis complete panel - Urine URINALYSIS, WITH MICROSCOPIC Lab Routine Screening for genitourinary condition Expected: 07/05/2023, Expires: 09/04/2023 [facility] Work Phone: Comment on above: Expected: 07/05/2023, Expires: Start: 06-14-2023 Creatinine measurement Creatinine Level [facility] Start: 06-14-2023 Diabetes mellitus screening Diabetes Screening [facility] Start: 06-14-2023 Potassium measurement Potassium Level [facility] Start: 06-11-2023 Echocardiography Echocardiogram [facility] Start: 05-28-2023 Hepatitis B surface antibody level LDL Cholesterol [facility] Start: 05-27-2023 Covid-19 Vaccine () Covid-19 Vaccine () [facility] Start: 05-27-2023 Influenza vaccination Influenza Vaccine (#1) [facility] Start: 02-15-2023 FUV, Provider: Manny Parra, Status: Pen, Time: 10:45 AM FUV, Provider: Manny Parra, Status: Pen, Time: 10:45 AM [facility]Cwqdgndpudd[facility] Work Phone: Start: 10-18-2022 End: 09-17-2023 aPTT in Platelet poor plasma by Coagulation assay ACTIVATED PTT Lab Routine Malignant neoplasm of urinary bladder, unspecified site (HCC) Atrial fibrillation, unspecified type (HCC) Presence of cardiac defibrillator Stage 3 chronic kidney disease, unspecified whether stage 3a or 3b CKD (HCC) Expected: 10/18/2022 (Approximate), Expires: 09/17/2023 [facility] Work Phone: Comment on above: Expected: 10/18/2022 (Approximate), Expi res: 09/17/2023 Start: 10-18-2022 End: 12-18-2022 Bacteria identified in Urine by Culture URINE CULTURE Microbiology Routine Malignant neoplasm of urinary bladder, unspecified site (HCC) Atrial fibrillation, unspecified type (HCC) Presence of cardiac defibrillator Stage 3 chronic kidney disease, unspecified whether stage 3a or 3b CKD (HCC) Asymptomatic microscopic hematuria Expected: 10/18/2022 (Approximate), Expires: 12/18/2022 [facility] Work Phone: Comment on above: Expected: 10/18/2022 (Approximate), Expi res: 12/18/2022 Start: 10-18-2022 End: 09-17-2023 CBC panel - Blood by Automated count CBC Lab Routine Malignant neoplasm of urinary bladder, unspecified site (HCC) Atrial fibrillation, unspecified type (HCC) Presence of cardiac defibrillator Stage 3 chronic kidney disease, unspecified whether stage 3a or 3b CKD (HCC) Expected: 10/18/2022 (Approximate), Expires: 09/17/2023 [facility] Work Phone: Comment on above: Expected: 10/18/2022 (Approximate), Expi res: 09/17/2023 Start: 10-18-2022 End: 09-17-2023 Comprehensive metabolic 2000 panel - Serum or Plasma COMP METABOLIC PANEL Lab Routine Malignant neoplasm of urinary bladder, unspecified site (HCC) Atrial fibrillation, unspecified type (HCC) Presence of cardiac defibrillator Stage 3 chronic kidney disease, unspecified whether stage 3a or 3b CKD (HCC) Expected: 10/18/2022 (Approximate), Expires: 09/17/2023 [facility] Work Phone: Comment on above: Expected: 10/18/2022 (Approximate), Expi res: 09/17/2023 Start: 10-18-2022 End: 09-17-2023 CONFIRM BLOOD TYPE CONFIRM BLOOD TYPE Blood Bank Routine Malignant neoplasm of urinary bladder, unspecified site (HCC) Atrial fibrillation, unspecified type (HCC) Presence of cardiac defibrillator Stage 3 chronic kidney disease, unspecified whether stage 3a or 3b CKD (HCC) Expected: 10/18/2022 (Approximate), Expires: 09/17/2023 [facility] Work Phone: Comment on above: Expected: 10/18/2022 (Approximate), Expi res: 09/17/2023 Start: 10-18-2022 End: 09-17-2023 PT panel - Platelet poor plasma by Coagulation assay PROTHROMBIN TIME/PT Lab Routine Malignant neoplasm of urinary bladder, unspecified site (HCC) Atrial fibrillation, unspecified type (HCC) Presence of cardiac defibrillator Stage 3 chronic kidney disease, unspecified whether stage 3a or 3b CKD (HCC) Expected: 10/18/2022 (Approximate), Expires: 09/17/2023 [facility] Work Phone: Comment on above: Expected: 10/18/2022 (Approximate), Expi res: 09/17/2023 Start: 10-18-2022 End: 09-17-2023 TYPE AND SCREEN,30 DAY TYPE AND SCREEN,30 DAY Blood Bank Routine Malignant neoplasm of urinary bladder, unspecified site (HCC) Atrial fibrillation, unspecified type (HCC) Presence of cardiac defibrillator Stage 3 chronic kidney disease, unspecified whether stage 3a or 3b CKD (HCC) Expected: 10/18/2022 (Approximate), Expires: 09/17/2023 [facility] Work Phone: Comment on above: Expected: 10/18/2022 (Approximate), Expi res: 09/17/2023 Start: 10-18-2022 End: 09-17-2023 Urinalysis complete panel - Urine URINALYSIS, WITH MICROSCOPIC Lab Routine Malignant neoplasm of urinary bladder, unspecified site (HCC) Atrial fibrillation, unspecified type (HCC) Presence of cardiac defibrillator Stage 3 chronic kidney disease, unspecified whether stage 3a or 3b CKD (HCC) Expected: 10/18/2022 (Approximate), Expires: 09/17/2023 [facility] Work Phone: Comment on above: Expected: 10/18/2022 (Approximate), Expi res: 09/17/2023 Start: 09-26-2022 ADVANCE DIRECTIVE DISCUSSION ADVANCE DIRECTIVE DISCUSSION [facility] Start: 09-26-2022 DEPRESSION ASSESSMENT DEPRESSION ASSESSMENT [facility] Start: 08-24-2022 FUV, Provider: Manny Parra, Status: Pen, Time: 10:45 AM FUV, Provider: Manny Parra, Status: Pen, Time: 10:45 AM KN-Sfdqmpqldigwpe[facility] [place] Work Phone: Start: 08-24-2022 Patient encounter procedure [facility] Start: 07-09-2022 Patient encounter procedure [facility] Start: 07-09-2022 POV, Provider: Дмитрий Bee, Status: Pen, Time: 1:45 PM POV, Provider: Дмитрий Bee, Status: Pen, Time: 1:45 PM PI-Fgbifbxjwv-Ciosu [facility] Work Phone: Start: 06-24-2022 Patient encounter procedure [facility] Start: 06-15-2022 End: 06-16-2023 Furosemide 20 mg Oral Tablet Daily ; Tablet (LASIX)DOSE = 20 mg Oral Daily Start: 15-Jun-2022 End: 15-Jun-2023 Ordered: 14-Jun-2022 Alex Panchal [facility] Start: 06-14-2022 End: 06-15-2023 Lisinopril 2.5 mg Oral Tablet Daily ; Tablet (PRINIVIL, ZESTRIL)DOSE = 2.5 mg Oral Daily Start: 14-Jun-2022 End: 14-Jun-2023 Ordered: 14-Jun-2022 Alex Panchal [facility] Start: 06-11-2022 End: 06-12-2023 Lidocaine 2% (UROJET) Topical Gel 5 mL Once ; DOSE = 5 mL Topical OnceApply to Penis Start: 11-Jun-2022 End: 11-Jun-2023 Ordered: 11-Jun-2022 Monty Molina [facility] Start: 06-08-2022 End: 06-09-2023 Insulin Regular Mild Corrective Scale MILD ; Give SubCutaneous Every 6 Hours Hypoglycemia Protocol Call LIP unit(s) if Blood Glucose is between 0 - 70 0 unit(s) if Blood Glucose is between 71 - 150 2 unit(s) if Blood Glucose is between 151 - 200 4 unit(s) if Blood Glucose is between 201 - 250 6 unit(s) if Blood Glucose is between 251 - 300 8 unit(s) if Blood Glucose is between 301 - 350 10 unit(s) if Blood Glucose is between 351 - 400 Notify Physician unit(s) if Blood Glucose is greater wan 400Notes from Pharmacy: [facility]UA[facility] Start: 08-Jun-2022 End: 08-Jun-2023 Ordered: 08-Jun-2022 Antonella Guillaume [facility] Start: 06-07-2022 End: 06-08-2023 Meclizine 12.5 mg Oral Tablet 3 Times a Day ; Tablet (ANTIVERT, BONINE)DOSE = 12.5 mg NasoGastric Tube 3 Times a Day, PRN vertigo Start: 07-Jun-2022 End: 07-Jun-2023 Ordered: 07-Jun-2022 Stan Rawls Intent [facility] Start: 06-04-2022 End: 06-05-2023 [facility] Comment on above: IF patient HAS a secure IV access & is U nconscious, Conscious, NPO or Unable to Eat or Drink. Repeat until BG reaches 100 mg/dL or greater. Push 2-3 mL/minute. Discontinue once BG reaches 100 mg/dL or greater. IF patient DOES NOT have secure IV access & is Unconscious, Conscious, NPO or Unable to Eat or Drink. Repeat until BG reaches 100 mg/dL or greater. Discontinue once BG reaches 100 mg/dL or greater. Start: 06-04-2022 Old myocardial infarction Old myocardial infarction Date: 04-Jun-2022 [facility] Start: 06-04-2022 Paroxysmal atrial fibrillation with rapid ventricular response Paroxysmal atrial fibrillation with rapid ventricular response Date: 04-Jun-2022 [facility] Start: 06-01-2022 Coronary artery insufficiency Coronary artery insufficiency Date: 01-Jun-2022 [facility] Start: 06-01-2022 Encounter for pre-operative examination Encounter for pre-operative examination Date: 01-Jun-2022 [facility] Start: 05-04-2022 FUV, Provider: Manny Parra, Status: Pen, Time: 10:45 AM FUV, Provider: Manny Parra, Status: Aldo, Time: 10:45 AM ZB-Dukrltyxvheqsm[facility] Work Phone: Start: 04-23-2022 COVID-19 VACCINE (5 - Booster for Pfizer series) COVID-19 VACCINE (5 - Booster for Pfizer series) [facility] Start: 04-23-2022 Covid-19 Vaccine (5 - Pfizer series) Covid-19 Vaccine (5 - Pfizer series) [facility] Start: 11-04-2021 Smoking cessation education Tobacco cessation counseling [facility] Start: 11-03-2021 FUV, Provider: Manny Parra, Status: Pen, Time: 10:30 AM FUV, Provider: Manny Parra, Status: Pen, Time: 10:30 AM BH-Rxpqmwiekclkcb-[facility] in[facility] Work Phone: Start: 09-26-2021 ADVANCE DIRECTIVE DISCUSSION ADVANCE DIRECTIVE DISCUSSION [facility] Start: 09-26-2021 DEPRESSION ASSESSMENT DEPRESSION ASSESSMENT [facility] Start: 05-27-2021 Influenza vaccination INFLUENZA (Season Ended) [facility] Start: 05-05-2021 FUV, Provider: Manny Parra, Status: Pen, Time: 10:20 AM FUV, Provider: Manny Parra, Status: Pen, Time: 10:20 AM IO-Knuhboxepwqysk-[place] [place] Work Phone: Start: 08-05-2020 Patient Education Health Information for You: [employer]~ [facility] Work Phone: Start: 06-10-2020 Patient Education Health Information for You: [employer]~ [facility] Work Phone: Start: 04-03-2020 Patient Education Health Information for You: [employer]~ [facility] Work Phone: Start: 12-19-2019 Patient Education Health Information for You: [employer]~ [facility] Work Phone: Start: 2017 RSV High Risk: (Elderly (60+) or Population) (1 - 1-dose 75+ series) RSV High Risk: (Elderly (60+) or Population) (1 - 1-dose 75+ series) [facility] Start: 2017 RSV Vaccine (1 - 1-dose 75+ series) RSV Vaccine (1 - 1-dose 75+ series) [facility] Start: 2017 [facility] Start: 04-21-2015 Shingrix Vaccine (2 of 3) Shingrix Vaccine (2 of 3) [facility] Start: 04-21-2015 Zoster Vaccines (2 of 3) Zoster Vaccines (2 of 3) [facility] Start: 04-21-2015 [facility] Start: 2007 ADVANCE DIRECTIVE DISCUSSION ADVANCE DIRECTIVE DISCUSSION [facility] Start: 2007 PNEUMOVAX AGE 65 AND OVER WITH 5YR LOOKBACK (#1) PNEUMOVAX AGE 65 AND OVER WITH 5YR LOOKBACK (#1) [facility] Start: 2002 Hepatitis B Vaccines (1 of 3 - Risk 3-dose series) Hepatitis B Vaccines (1 of 3 - Risk 3-dose series) [facility] Start: 2002 RSV patients and/or patients aged 60+ years (1 - 1-dose 60+ series) RSV patients and/or patients aged 60+ years (1 - 1-dose 60+ series) [facility] Start: 2002 RSV Vaccine (1 - 1-dose 60+ series) RSV Vaccine (1 - 1-dose 60+ series) [facility] Start: 02-21-1992 Screening for malignant neoplasm of colon [facility] Start: 02-21-1992 SHINGRIX VACCINE (1 of 2) SHINGRIX VACCINE (1 of 2) [facility] Start: 1987 DIABETES SCREEN DIABETES SCREEN [facility] Start: 02-21-1964 DTaP/Tdap/Td Vaccines (1 - Tdap) DTaP/Tdap/Td Vaccines (1 - Tdap) [facility] Start: 02-21-1964 [facility] Start: 1961 Hepatitis A Vaccines (1 of 2 - Risk 2-dose series) Hepatitis A Vaccines (1 of 2 - Risk 2-dose series) [facility] Start: 1961 Urine microalbumin profile [facility] Start: 02-21-1960 ANNUAL PCP TEAM CHRONIC DISEASE VISIT ANNUAL PCP TEAM CHRONIC DISEASE VISIT [facility] Start: 02-21-1960 Anxiety Screening Anxiety Screening [facility] Start: 02-21-1960 Depression Screening Depression Screening [facility] Start: 02-21-1960 HEMOGLOBIN/HEMATOCRIT HEMOGLOBIN/HEMATOCRIT [facility] Start: 02-21-1960 Hepatitis B surface antibody level LDL CHOLESTEROL [facility] Start: 02-21-1960 HEPATITIS C SCREENING HEPATITIS C SCREENING [facility] Start: 02-21-1960 SERUM CREATININE SERUM CREATININE [facility] Start: 1954 Adult depression screening assessment DEPRESSION SCREENING [facility] Start: 02-21-1948 Pneumococcal Vaccine: 65+ (1 - PCV) Pneumococcal Vaccine: 65+ (1 - PCV) [facility] Start: 02-21-1948 PNEUMOCOCCAL: 65+ (1 - PCV) PNEUMOCOCCAL: 65+ (1 - PCV) [facility] Start: 1942 Medicare Annual Wellness Visit [facility] Start: 1942 Skin Cancer Screening Skin Cancer Screening [facility] Acute ST segment elevation [place] Acute ST segment elevation [place] [facility] Bacteria identified in Urine by Culture URINE CULTURE Microbiology Routine Screening for genitourinary condition 06/09/2023 9:52 AM EDT [facility] Work Phone: Bacteria identified in Urine by Culture [facility] Bacteria identified in Urine by Culture [facility] Barium swallow [facility] End: 11-01-2024 BB ORDER ONLY - Antibody Identification [facility] Work Phone: End: 02-03-2025 CT Kidney WO and W contrast IV CT UROGRAM WO/W IVCON Radiology Routine Malignant neoplasm of urinary bladder, unspecified site (HCC) Bladder stone 1 Occurrences starting 01/05/2024 until 02/03/2025 [facility] Work Phone: Comment on above: 1 Occurrences starting 01/05/2024 until 02/03/2025 CT Kidney WO and W contrast IV CT UROGRAM WO/W IVCON Radiology Routine Malignant neoplasm of urinary bladder, unspecified site (HCC) Bladder stone 07/20/2024 10:06 AM EDT [facility] Work Phone: Cysto w/complex eric luci stone & stent CYSTOSCOPY,REMV CALCULUS,COMPLIC Procedures Routine Bladder stone Ordered: 10/27/2023 [facility] Work Phone: Comment on above: Ordered: 10/27/2023 End: 09-17-2023 ECG COMPLETE ECG COMPLETE ECG Routine Pre-operative clearance 1 Occurrences starting 09/17/2022 until 09/17/2023 [facility] Work Phone: Comment on above: 1 Occurrences starting 09/17/2022 until 09/17/2023 End: 10-20-2023 ECG COMPLETE ECG COMPLETE ECG Routine Atrial fibrillation, unspecified type (HCC) 1 Occurrences starting 10/20/2022 until 10/20/2023 [facility] Work Phone: Comment on above: 1 Occurrences starting 10/20/2022 until 10/20/2023 End: 09-22-2023 Echocardiography ECHO Cardiology Routine H/O mitral valve repair Hx of CABG S/P left atrial appendage ligation 1 Occurrences starting 09/22/2022 until 09/22/2023 [facility] Work Phone: Comment on above: 1 Occurrences starting 09/22/2022 until 09/22/2023 Electrocardiogram, 12-lead PRN ACS symptoms [facility] Work Phone: Electrocardiogram, 12-lead PRN ACS symptoms [facility] Work Phone: Glucose [Mass/volume ] in Serum or Plasma [facility] Work Phone: H/O: surgery S/P bladder tumo r excision with fulguration [facility] Pacemaker Pacemaker [facility] Pacemaker reprogramming/check Pacemaker reprogramming/check [facility] End: 11-01-2024 Path Review-Immunohematology [facility] Work Phone: Patient Education How to give a tube feeding Percutaneous endoscopic gastrostomy (PEG) - Discharge instructions Enteral (tube) feeding [facility] Work Phone: Patient referral [facility] Work Phone: Sinus node dysfunction Sinus node dysfunc tion [facility] Immunizations Immunization Date Immunization Notes Care Provider Spencer feliz 07-21-2024 influenza virus vaccine, unspecified formulation Fadi VALDIVIA Work Phone: [facility] 06-28-2023 influenza virus vaccine, unspecified formulation Manny Parra MD Work Phone: [facility] Work Phone: 07-23-2022 influenza virus vaccine, unspecified formulation ROSSY MUELLER [facility] 02-26-2022 Comirnaty 30 MCG/0.3 ML Intramuscular Suspension Mylene Dunn Work Phone: WT-Zvyegditmc-Wamyn [facility] Work Phone: 02-26-2022 SARS-CoV-2 mRNA (udianfamhri-smyg-duyzm se) vaccine ROSSY MUELLER [facility] 08-10-2021 Pfizer-BioNTech COVID-19 Vacc 30 MCG/0.3ML Intramuscular Suspension Mylene Sylvester Dunn Work Phone: [facility] Comment on above: Result Comment: 2022: [id number] 06-15-2021 Fluzone High-Dose Quadrivalent 0.7 ML Intramuscular Suspension Prefilled Syringe Mylene Sylvester Dunn Work Phone: UI-Dglubzvhau-Hkbsg Frakes Work Phone: 06-15-2021 influenza virus vaccine, unspecified formulation ROSSY MUELLER [facility] 11-18-2020 Pfizer-BioNTech COVID-19 Vacc 30 MCG/0.3ML Intramuscular Suspension Mylene Dunn Work Phone: [facility] Comment on above: Result Comment: 2022: [id number] 10-28-2020 Pfizer-BioNTech COVID-19 Vacc 30 MCG/0.3ML Intramuscular Suspension Mylene Sylvester Dunn Work Phone: [facility] Comment on above: Result Comment: 2022: [id number] 06-26-2019 pneumococcal polysaccharide vaccine, 23 valent ROSSY MUELLER [facility] 06-21-2019 influenza virus vaccine, unspecified formulation ROSSY MUELLER [facility] 06-21-2019 influenza, high dose seasonal, preservative-free Mylene Sylvester Dunn Work Phone: TZ-Wvulnzbbpi-Qquon Frakes Work Phone: 06-21-2019 pneumococcal polysaccharide vaccine, 23 valent Mylene E Dunn Work Phone: [facility] 06-26-2018 influenza virus vaccine, split virus (incl. purified surface antigen) Roro Lincoln Other [employer] Other 06-26-2018 influenza virus vaccine, unspecified formulation ROSSY MUELLER [facility] 06-26-2018 influenza, high dose seasonal, preservative-free Mylene Sylvester Dunn Work Phone: TO-Leliouarzc-Wuaro Frakes Work Phone: 06-21-2018 influenza, seasonal, injectable Heber Gonzalez MD [facility] Comment on above: Source: Source Unspe cified 06-24-2017 influenza virus vaccine, unspecified formulation ROSSY MUELLER [facility] 06-24-2017 influenza, high dose seasonal, preservative-free Mylene E Dunn Work Phone: TE-Apbyzpltme-Wysux Frakes Work Phone: 06-24-2017 pneumococcal conjuga te vaccine, 13 valent Mylene E Dunn Work Phone: [facility] 06-09-2017 influenza, seasonal, injectable Heber Ernesto Barros MD [facility] Comment on above: Source: Other Provid er 05-27-2017 pneumococcal conjuga te vaccine, 13 valent Mylene E Dunn Work Phone: [facility] 09-08-2016 influenza virus vaccine, unspecified formulation ROSSY MUELLER [facility] 09-08-2016 influenza, high dose seasonal, preservative-free Mylene Dunn Work Phone: NQ-Mbafgoomjx-Epyhc Frakes Work Phone: 06-26-2016 pneumococcal polysaccharide vaccine, 23 valent Mylene Dunn Work Phone: [facility] 08-04-2015 influenza virus vaccine, unspecified formulation ROSSY MUELLER [facility] 08-04-2015 influenza, injectabl e, quadrivalent, preservative free Mylene Dunn Work Phone: QJ-Dblaryoqvz-Vdxyg Frakes Work Phone: 02-24-2015 zoster vaccine, live Mylene Dunn Work Phone: [facility] Payers Date Payer Category Payer Self-pay [id number] 2007 Managed Care (Private) [id number] [id number] 2007 Private Health Insurance [facility] [id number] 2007-Present [facility] [id number] 2007 Private Health Insurance [id number] [id number] 0.315 2007 Unknown 2007 Medicare [id number]. 1.13.1 [id number] 2005 Medicare [id number] 1.2.840.043388.1.13.1 59.2.7.3.962374.315 1959 Medicare [id number] 1959 Private Health Insurance [id number] 1959 Self-pay [id number] 1942 Unknown [id number] 2.16.840.1.174283.3.5 79.2.647 1942 Unknown [id number] 2.16.840.1.842024.3.5 79.2.647 1942 Unknown [id number] 2.16.840.1.366335.3.5 79.2.647 1942 Unknown [id number] 2.16.840.1.446584.3.5 79.2.647 1942 Unknown [id number] 2.16.840.1.449540.3.5 79.2.1068 1942 Unknown [id number] 2.16.840.1.498629.3.5 79.2.593 1942 Unknown [id number] 2.16.840.1.227025.3.5 79.2.593 1942 Unknown [id number] 2.16.840.1.898294.3.5 79.2.593 1942 Unknown [id number] 2.16.840.1.568222.3.5 79.2.593 1942 Unknown [id number] 2.16.840.1.968245.3.5 79.2.593 1942 Unknown [id number] 2.16.840.1.817893.3.5 79.2.593 1942 Unknown [id number] 2.16.840.1.066135.3.5 79.2.593 194 Unknown [id number] 2.16.840.1.146880.3.5 79.2.593 194 Unknown [id number] 2.16.840.1.075586.3.5 79.2.593 1942 Unknown [id number] 2.16.840.1.613797.3.5 79.2.593 1942 Unknown [id number] 2.16.840.1.215737.3.5 79.2.593 1942 Unknown [id number] 2.16.840.1.417522.3.5 79.2.593 1942 Unknown [id number] 2.16.840.1.396303.3.5 79.2.593 1942 Unknown [id number] 2.16.840.1.526131.3.5 79.2.593 1942 Unknown [id number] 2.16.840.1.769257.3.5 79.2.593 1942 Unknown [id number] 2.16.840.1.407018.3.5 79.2.593 1942 Unknown [id number] 2.16.840.1.894564.3.5 79.2.593 1942 Unknown [id number] 2.16.840.1.490848.3.5 79.2.593 1942 Unknown [id number] 2.16.840.1.269506.3.5 79.2.727 1942 Unknown [id number] 2.16.840.1.963123.3.5 79.2.727 1942 Unknown [id number] 2.16.840.1.812030.3.5 79.2.727 1942 Unknown [id number] 2.16.840.1.606202.3.5 79.2.727 194 Unknown [id number] 2.16.840.1.800485.3.5 79.2.727 1942 Unknown [id number] 2.16.840.1.208303.3.5 79.2.727 1942 Unknown [id number] 2.16.840.1.875288.3.5 79.2.727 1942 Unknown [id number] 2.16.840.1.213749.3.5 79.2.727 1942 Unknown [id number] 2.16.840.1.089029.3.5 79.2.727 194 Unknown [id number] 2.16.840.1.537187.3.5 79.2.727 1942 Unknown [id number] 2.16.840.1.584478.3.5 79.2.727 1942 Unknown [id number] 2.16.840.1.643459.3.5 79.2.124 1942 Unknown [id number] 2.16.840.1.106924.3.5 79.2.124 1942 Unknown [id number] 2.16.840.1.583493.3.5 79.2.124 1942 Unknown [id number] 2.16.840.1.410916.3.5 79.2.124 1942 Unknown [id number] 2.16.840.1.471458.3.5 79.2.124 1942 Unknown [id number] 2.16.840.1.418648.3.5 79.2.124 1942 Unknown [id number] 2.16.840.1.609874.3.5 79.2.124 1942 Unknown [id number] 2.16.840.1.805441.3.5 79.2.124 1942 Unknown [id number] 2.16.840.1.644857.3.5 79.2.727 1942 Unknown [id number] 2.16.840.1.610051.3.5 79.2.727 1942 Unknown [id number] 2.16.840.1.104509.3.5 79.2.727 1942 Unknown [id number] 2.16.840.1.299297.3.5 79.2.727 194 Unknown [id number] 2.16.840.1.904588.3.5 79.2.727 1942 Unknown [id number] 2.16.840.1.485035.3.5 79.2.1259 1942 Unknown [id number] 2.16.840.1.488499.3.5 79.2.1259 1942 Unknown [id number] 2.16.840.1.131364.3.5 79.2.125 1942 Unknown [id number] 2.16.840.1.784493.3.5 79.2.1259 1942 Unknown [id number] 2.16.840.1.195779.3.5 79.2.1259 1942 Unknown [id number] 2.16.840.1.913812.3.5 79.2.1259 1942 Unknown [id number] 2.16.840.1.021060.3.5 79.2.1259 1942 Unknown [id number] 2.16.840.1.096925.3.5 79.2.1259 194 Unknown [id number] 2.16.840.1.434233.3.5 79.2.1347 1942 Unknown [id number] 2.16.840.1.286793.3.5 79.2.1347 1942 Unknown [id number] 2.16.840.1.315140.3.5 79.2.134194 Unknown [id number] 2.16.840.1.758574.3.5 79.2.1347 194 Unknown [id number] 2.16.840.1.760575.3.5 79.2.1347 Medicare [id number] Unknown [id number] 2.16.840.1.889215.3.5 79.2.531 Unknown [id number] 2.16.840.1.654470.3.5 79.2.531 Unknown [id number] 2.16.840.1.943275.3.5 79.2.531 Unknown [id number] 2.16.840.1.987685.3.5 79.2.531 Social History Date Type Detail Facility Start: 1940 Sex Assigned At Not on file [facility] Start: 10-19-2022 End: 07-03-2025 Never a smoker Never a smoker DR-Rrwfvkvbpuegoh-Mf stlake Work Phone: Start: 01-26-2022 End: 07-20-2023 Tobacco smoking status Never smoked tobacco (finding) [facility] Start: 08-21-2022 Tobacco smoking status Never [facility] Start: 10-19-2022 End: 07-03-2025 Sex Assigned At Male [facility] Start: 04-23-2025 Tobacco smokin g consumption unknown [facility] Start: 09-14-2022 End: 07-20-2023 Tobacco use and exposure Smokeless tobacco non-user [facility] Start: 09-14-2022 End: 07-03-2025 Alcohol intake Lifetime non-drinker (finding) [facility] Start: 1940 Sex Assigned At Male [facility] Start: 09-05-2013 End: 08-07-2024 Sex Male (finding) [facility] Start: 08-23-2023 Tobacco smoking status NHIS Ex-smoker [facility] Work Phone: History of tobacco use Current smoker [facility] Work Phone: History of tobacco use Cigarette Smoker [facility] Work Phone: Start: 05-12-2024 End: 01-22-2025 Exposure to SARS-CoV-2 (event) Not sure [facility] Has the electric, gas, oil, or water company threatened to shut off services in your home in past 12Mo No [facility] Are you now , , , , never or living with a partner? [facility] Work Phone: How hard is it for you to pay for the very basics like food, housing, medical care, and heating Not very hard [facility] Work Phone: (I/We) worried whether (my/our) food would run out before (I/we) got money to buy more. Never true [facility] Work Phone: Start: 08-06-2023 Alcohol Comment caffeine 1-2 c ups/day; coffee/tea [facility] Start: 11-13-2024 End: 11-29-2024 SDOH Follow up SDOH Follow up [facility] Start: 12-04-2024 Health-related behavior (observable entity) Caffeine Use Details [facility] Start: 12-04-2024 Tobacco use and exposure Non-Smoking Tobacco Use Details [facility] Sexual Orientation [facility] Start: 09-04-2022 Sexual Orientation Straight or heterosexual [facility] NEGATED: Highlighted row - - JF-Msrdbzxnfjyukl-Mu [facility] Work Phone: NEGATED: Highlighted rowStart: NINF History of tobacco use Passive smoker [facility] Work Phone: NEGATED: Highlighted rowStart: 12-04-2024 End: 04-23-2025 Tobacco smoking status NHIS Unknown if ever smoked [facility] NEGATED: Highlighted row Alcohol intake Alcohol Use Details [facility] NEGATED: Highlighted rowStart: 12-04-2024 History of tobacco use Current non-smoker [facility] Medical Equipment Procedure Code Equipment Code Equipment Origin al Text Equipment Identifier Dates Minimally invasive revision of total replacement of hip Bipolar femoral head outer component, hemiarthroplasty [id number] FDA Start: 11-12-2024 Minimally invasive revision of total replacement of hip Femoral head/stem prosthesis adaptor ()[id number] FDA Start: 11-12-2024 Minimally invasive revision of total replacement of hip Coated hip femur prosthesis, modular ()[id number] FDA Start: 11-12-2024 Pacemaker-2272 [employer] [id number] Start: 09-10-2021 [id number]_[facility] Start: 06-04-2022 Comment on above: Description: Convert ed from [facility]. Please see archived information for full log information. [id number] Start: 06-04-2022 Comment on above: Description: Convert ed from [facility]. Please see archived information for full log information. [id number] Start: 06-04-2022 Comment on above: Description: Convert ed from [facility]. Please see archived information for full log information. [id number] Start: 06-04-2022 Comment on above: Description: Convert ed from [facility]. Please see archived information for full log information. 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 Baseline [facility] Work Phone: 10-19-2024 Functional Status No [facility] 10-19-2024 Functional Status [facility] 07-11-2024 Functional Status N/A [facility] 01-06-2024 Functional Status No [facility] 07-14-2023 Functional Status No [facility] 01-13-2023 Functional Status No [facility] 12-15-2022 Functional Status No [facility] 11-23-2022 Functional Status N/A [facility] 02-06-2023 Functional Status N/A [facility] 10-05-2022 Functional Status No [facility] 07-07-2022 Functional Status N/A [facility] 05-26-2022 Functional Status No [facility] 05-26-2022 Functional Status [facility] 05-10-2022 Functional Status N/A [facility] 03-18-2022 Functional Status N/A [facility] Functional observable [facility] [place] NEGATED: Highlighted row Functional performance Functional status health issues are not documented Disease GC-Erjvssjgacdgch-C [facility] Work Phone: Mental Status Date Assessment Result Facility 11-30-2024 Cognitive function Cognitive Sta tus Patient at Baseline [facility] Work Phone: 11-18-2024 Cognitive function Cognitive Sta tus Patient at Baseline [facility] Work Phone: 05-31-2022 Cognitive functi ons [id number] [facility] NEGATED: Highlighted row Cognitive function [Interpretation] Cognitive status health issues are not documented Disease TM-Asqdcwggocjnyx-Ik [facility] Work Phone: Clinical Notes 11-06-2015 to 07-03-2025 SKIP [place] - 07/03/2025 10:30 AM EDTPatient Marianela Ponce DO - 06/12/2025 10:00 AM EDT Note Date & Type Note Facility 07-03-2025 History of Presen t illness Narrative Images from the original note were not included. Subjective Patient ID: Bravo Arce is a 85 y.o. male. Chief Complaint: Follow-up and Pain of the Left Knee Last Surgery: No surgery found Last Surgery Date: No surgery found HPI Michael comes in he has gotten really good results with his previous Zilretta he thought he would be able to get this today but has a at least another week or so before this can be repeated. He will need to be on Dr. Villatoro schedule and we will schedule this on a day that I am here so they can do his injection for him. He did get new imaging today which shows no advanced changes with significant gnqw-fs-xhjg changes of his left medial femoral condyle as well as some patellofemoral disease. Objective Ortho Exam Achiness along the medial joint no mediolateral collateral ligament laxity near full extension with flexion of about 115 degrees today mild effusion on the left noted. Patellofemoral crepitus bilaterally. Image Results: XR knee 3 views left Imaging Result: Bilateral standing PA, bilateral sunrise, and lateral of the affected knee were imaged today in the office.Patient has significant eaxt-wk-wpsw changes to the medial compartment of the left knee as well as some developing patellofemoral disease of both knees in the mild to moderate state no evidence of fracture. He has staple clips from previous vessel graft in both leg seen. No significant change from previous imaging. Assessment/Plan Encounter Diagnoses: Localized osteoarthritis of left knee Orders Placed This Encounter XR knee 3 views left Follow up in about 16 days (around 07/19/2025) for Injection, symptom check. documented in this encounter [facility] 07-03-2025 Instructions SKIP [place] - 07/03/2025 10:30 AM EDT We will returned back with Dr. Villatoro schedule when Zilretta is able to be given as this has done well with your symptoms. We will hold off on Visco injections at this point. Otherwise no change in your home medications or treatment of the arthritic knees. documented in this encounter [facility] 06-12-2025 History of Presen t illness Narrative Images from the original note were not included. Assessment/Plan Diagnoses and all orders for this visit: Refractive error - Update rx. documented in this encounter [facility] 06-06-2025 Evaluation note Diagnosis Onset Date Resolution Hernia acute May 12:59pm Swallowing disorder acute Septe mber 2024 12:59pm Persistent indigestion acute Oc tober 2024 9:44am [facility] Work Phone: 1(980) 160-527908-26-2025 History of Present illness Narrative* Mary Blount MD - 05/21/2025 9:45 AM EDT Images from the original note were not included. Patient: Bravo Arce Date of : 1940 Sex: male Age: 85 y.o. Date of Service: 05/21/2025 ASSESSMENT AND PLAN I discussed the findings with Bravo Arce and have recommended the followin. Acute on chronic dysphagia, and mild velopharyngeal dysfunction. FEES in the office today with mild penetration but no aspiration across multiple consistencies. PEG removed 05/21/25 - Follow-up as needed CHIEF COMPLAINT Dysphagia HISTORY OF PRESENT ILLNESS Bravo Arce is a 85 y.o. 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 05/21/25 He is eating everything by mouth. Has not used the tube for 1 month. He has been 152-154 lbs in themorning. He does cough but meters his eating and concentrates. 03/19/25 He was admitted to the hospital in September and was intubated for some time. He had an NGFT at that time. He had a PEG afterward when he was in rehab since he had lost a significant amount of weight. His [facility] was completed[facility] [place] on [facility]/19/25. He was told her was recommended for NPO and Harper free water. However reports he has been eating at home since his last MBS. Denies lung infections. He indicates he occasionally gets liquids escape up his nose but it does not bother him. 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 ADDITIONAL HISTORY Past Medical History He has a past medical history of Personal history of malignant neoplasm, unspecified, Personal history of other specified conditions, and Secondary malignant neoplasm of other specified sites (12/06/2017). 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 Social History He reports that he has quit smoking. His smoking use included cigarettes. He has never been exposedto tobacco smoke. He has never used smokeless tobacco. No history on file for alcohol use and drug use. Allergies Ciprofloxacin, Gabapentin, and Penicillins Family History Family History[1] REVIEW OF SYSTEMS All 10 systems were reviewed and negative except for above. PHYSICAL EXAM ENT Physical Exam GENERAL: Thin older gentleman, well-developed, alert and appropriate, no distress, mildly wet voice, [id number] RESPIRATORY: Breathing quietly, no stridor HEAD: Normocephalic atraumatic FACE: Symmetric, no masses or lesions EYES: Pupils reactive, sclera clear, external ocular muscles intact, no nystagmus. EARS: Pinnae normal. External auditory canals clear and tympanic membranes intact. NOSE: No anterior lesions, masses or polyps. ORAL CAVITY/OROPHARYNX: Buccal mucosa is moist without lesions or masses, tongue midline and palateelevates symmetrically. Tongue mobility intact. NECK: Soft. There is no lymphadenopathy or thyromegaly. NEUROLOGIC: Cranial nerves II-XII grossly intact. ABDOMEN: PEG site clean, moderate sized ventral hernia Last Recorded Vitals Blood pressure 136/88, temperature 35.3 C (95.5 F), height 1.829 m (6'), weight 72.2 kg (159 lb 2.8oz). RESULTS Patient Reported Outcome Measures N/A Laboratory, Radiology, and Pathology I personally reviewed the following results, with the following interpretation: [facility] 06/07/22 PROCEDURES Flexible Fiberoptic Laryngoscopy Patient failed a mirror exam due to limitations of equipment and the need for laryngoscopy to assess laryngeal anatomy and function PREOPERATIVE DIAGNOSIS: dysphagia POSTOPERATIVE DIAGNOSIS: Same PROCEDURE: Transnasal videolaryngoscopy ANESTHESIA: Topical COMPLICATIONS: None SPECIMENS: None PROCEDURE IN DETAIL: The patient was brought into the endoscopy suite, placed in the upright position. The nasal cavity was topically decongested anesthetized. The distal chip video laryngoscope was passed through the nasal cavity. The nasal cavity and nasopharynx were within normal limits except noted below. The following findings on laryngoscopy were noted: Tongue Base: no masses or lesions Vocal Fold Mobility Right VF: mobile Left VF: mobile TVF Appearance Edema/Erythema: none Lesions/vibratory margin irregularities: atrophy Muscle Tension Patterns: minimal Other Findings: improved pooled secretions throughout The patient tolerated the procedure well. Flexible Fiberoptic Endoscopic Evaluation of Swallowing (FEES) A flexible endoscopic evaluation of swallowing was indicated to assess pharyngeal function. The patient was given trials of thin liquids, purees, dry solids. Findings: mild penetration but no aspiration across multiple consistencies. Please see RELATIONSHIP ASSOCIATE report for complete details. Mary Blount MD, MAEd Examining Officer [facility] Department of Otolaryngology - Head and Neck Surgery [facility] The total time I spent in care of this patient today (excluding time spent on other billable services) is as follows: Time Spent Prep time on day of patient encounter: 10 minutes Time spent directly with patient, family or caregiver: 20 minutes Additional Time Spent on Patient Care Activities: 5 minutes Documentation Time: 10 minutes Other Time Spent: 0 minutes Total: 45 minutes [1] No family history on file. [facility](651) 476-282407-29-2025 Evaluation note* Type Assessment Date assessment Central retinal vein occls, righ t eye, with macular edema impression Central retinal vein occls, right eye, with macular edema: H34.8110 Right. Condition: established [facility] Work Phone: 1(561) 131-298407-29-2025 History of Present illness Narrative* Encounter Date Complaint History Of Prese nt Illness CRVO The 85 year old male presents for treatment of CRVO in the right eye. Pt states that there have been no changes at all. CRVO The 84 year old male presents for treatment of CRVO in the right eye. Patient reports stable vision since last visit 8 weeks ago. Patient states he is compliant with Latanoprost QHS OU most nights but forgot last night. CRVO with ME The 84 year old male presents for treatment of CRVO with ME in the right eye. Patient feels that vision has declined over the last week. Patient states he is over due for his injection. Patient denies any recent floaters or flashes of light. CRVO with ME The 84 year old male presents for 10 week evaluation of CRVO with ME in the right eye. PAtient states that the vision is the same as when he was here 10 weeks ago. Patient states that he does have a flash of light now and then and they seem to last about 10 minutes. Patient denies any ocular pain. CRVO The 84 year old patient presents for evaluation of CRVO in the right eye. Patient states stable vision since last visit. Patients denies flashes of lights, floaters and ocular pain. Patient states around 10 weeks he will notice a flash of light for about 10-15 minutes then it stops. Patient is using latanoprost 1 drop in each eye once daily. CRVO The 84 year old patient presents for treatment of CRVO in the right eye. Patient reports no new visual changes or concerns since his last exam 10 weeks ago. Patient denies eye pain but occasionally experiences flashes and floaters in both eyes. CRVO with ME The 83 year old male presents for 11 week evaluation of CRVO with ME in the right eye. Patient denies any vision issues at this time. Patient denies any new floaters or flashes of light. CRVO The 83 year old patient presents for evaluation of CRVO in the right eye. Patient reports no new visual changes or concerns since his last appointment. Patient denies flashes, floaters, and eye pain. Patient complains of itchy eyes. CRVO with ME The 83 year old male presents for 10 week evaluation of CRVO with ME in the right eye. Patient denies any vision changes at this time. Patient states that on occasion he does get a flash of light but denies any floaters. CRVO The 83 year old male presents for evaluation of CRVO in the right eye. Patient reports stable vision since last visit. Patient denies flashes, floaters, and eye pain. CRVO The 83 year old male presents for treatment of CRVO in the right eye. CRVO The 82 year old male presents for evaluation of CRVO in the right eye. Patient denies eye pain, flashes and floaters. Reports no significant vision changes since last appointment. CRVO The 82 year old male presents for evaluation of CRVO in the right eye with treatment of Eylea. CRVO with ME The 82 year old male presents for 3 month evaluation. Patient states since his last visit he has been in the hospital after having triple bypass surgery. Patient was in the hospital for 20 days. Patient declines any vision issues since his last visit , but patient does say he see's a flash of light but not often. CRVO The 82 year old male presents for evaluation of CRVO in the right eye. denies new vision changes The skip muñoz denies new vision changes in the right and left eyes since last visit 10 weeks ago. CRVO The 81 year old male presents for evaluation of CRVO in the right eye. CRVO The 81 year old male presents for evaluation of CRVO in the right eye. stable vision The patient stat es stable vision in both eyes, since last visit. It affects both near and distance vision. The symptom is all of the time. The condition is unchanged. CRVO The 81 year old male presents for evaluation of CRVO in the right eye. The patient reports stable vision since last exam 11 weeks ago. The patient denies eye pain and flashes. Central Retinal Vein Occlusion T he 81 year old male presents for evaluation of Central Retinal Vein Occlusion in the right eye. Stable Vision The patient repo rts constantly Stable Vision in both eyes since last visit on 02/04/2021. Vision is unchanged. Patient denies eye pain and flashes and floaters. CRVO The 80 year old male presents for evaluation of CRVO in the right eye. The patient reports stable vision since last exam 3 months ago. The patient denies eye pain and flashes. CRVO The 80 year old male presents for evaluation of CRVO in the right eye. stable vision The patient repo rts stable vision in the right eye. It started about 3 month(s) ago. It occurs constantly. It affects both near and distance vision. CRVO The 80 year old male presents for CRVO in the right eye. EYL INJ OD. stable vision The patient repo rts stable vision in both eyes since last visit about 2 month(s) ago. It occurs constantly. It affects both near and distance vision. In addition, the condition is associated with daily activities and chores. Patient denies floaters and flashes. stable vision The patient repo rts stable vision in the right eye since last visit about 7 week(s) ago. It occurs constantly. It affects both near and distance vision. In addition, the condition is associated with daily activities and chores. patient reports intermittent flashes. Patient denies floaters. Patient reports no vision changes in the left eye. CRVO The 80 year old male presents for CRVO in the right eye. EYL INJ OD. CRVO The 80 year old male presents for evaluation of CRVO in the right eye. decreased vision The patient com [place] of decreased vision in the right eye. He states in has been ongoing since his last visit 1 month(s) ago. It occurs mostly in the morning. The onset was gradual. It affects decrease in both near and distance vision. The patient notes his vision is worse in the mornings, but has never gotten back to normal since his last visit a month ago. stable vision The patient is p resent for evaluation of stable vision in the left eye. CRVO The 80 year old male presents for CRVO in the right eye. stable vision The patient repo rts stable vision in both eyes since last visit about 3 month(s) ago. It occurs constantly. It affects both near and distance vision. In addition, the condition is associated with daily activities and chores. Patient reports intermittent flashes of light in both eyes (mostly in the morning) lasting about 10 minutes. Patient denies floaters. decreased vision The patient rep orts decreased vision in the right eye since last visit about 3 month(s) ago. It occurs constantly. It affects both near and distance vision. In addition, the condition is associated with daily activities and chores. Patient reports intermittent floaters not affecting the vision. Patient denies flashes. Patient reports no vision changes in the left eye. CRVO The 79 year old male presents for CRVO in the right eye. CRVO The 79 year old male presents for evaluation of CRVO in the right eye. The patient reports stable vision since last exam 3 months ago. The patient denies eye pain and floaters. Associated symptoms include: flashes. CRVO The 79 year old male presents for evaluation of CRVO in the right eye. stable The patient stat es stable vision in both eyes. Patient denies eye pain and flashes. stable vision The patient repo rts stable vision in the left eye. Denies any new visual or ocular complaints. decrease in vision The patient r eports a decrease in vision in the right eye over the last 3-4 weeks. It occurs all the time. The onset was gradual. It affects both near and far vision. He is struggling with the [employer] [facility] [employer]. He states he thinks he needs another injection. He denies any new visual or ocular complaints. CRVO The 79 year old male presents for evaluation of CRVO with macula edema in the right eye. vein occlusion The 78 year old male presents for evaluation of vein occlusion in the right eye.The patient reports improved vision since last exam 2 months ago. It affects both near and far vision. The symptom is constant. In addition, the condition is associated with daily activity and chores. Patient denies eye pain and floaters Associated symptoms include: flashes. stable vision The patient repo rts stable vision in both eyes since his last visit 3-4 months ago. It occurs all the time. It affects both near and far vision. The symptom is constant. In addition, the condition is associated with daily activity and chores. Patient denies flashes and floaters. S/P Laser in the right eye on 11/28/[address] Ponce for glaucoma. Patient currently is using Lumigan in both eyes at bedtime. CRVO with macular edema The 78 y ear old male presents for evaluation of a CRVO with macular edema in the right eye. vein occlusion floaters/flashes The patient rep orts floaters/flashes in the right eye and left eye for years. The onset was gradual. Vision is not affected. The symptom is intermittent. The condition is mild. In addition, the condition is associated with daily activity and chores. decrease in vision The patient r eports a decrease in vision in the right eye. It started about 2-3 weeks ago . The onset was gradual. It affects both near and far vision. The symptom is constant. The condition is worsening. In addition,the condition is associated with daily activity and chores. Patient reports vision is worse in the morning hours. CRVO The 78 year old male presents for evaluation of a CRVO in the right eye. is unaware of any vision changes The patient is unaware of any vision changes in the left eye since last exam 1 month ago. improved vision The patient repo rts improved vision in the right eye since last exam 1 month ago. It affects both near and far vision. The symptom is constant. It occurs all the time. The condition is improving. In addition, the condition is associated with daily activity and chores. The patient denies flashes, floaters. vein occlusion The 78 year old male presents for evaluation of vein occlusion in the right eye. reports no visual changes The skip muñoz reports no visual changes in the left eye since his last visit 1 month ago. It affects both near and far vision. The symptom is constant. The condition is stable. In addition, the condition is associated with daily activity and chores. The patient denies flashes and floaters. blurry vision The patient repo rts blurry vision in the right eye. It started about 1 month ago . The onset was gradual. It affects distance vision. The symptom is intermittent. The condition is moderate. In addition, the condition is associated with daily activity and chores. The patient denies flashes, floaters. CRVO with edema The 77 year old male presents for evaluation of a CRVO with edema in the right eye. blurry vision The patient comp lains of blurry vision in the right eye. It started about 1 day ago . The onset was sudden. It affects both near and far vision. The symptom is constant. It occurs all the time. The condition is moderate. The condition is described as blurring. new blurry vision The 77 year ol d male presents for new blurry vision in the right eye. 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 Last treatment was 09/28/17. denies changes The patientf den ies changes in the right eye and left eye. It started about 10 weeks ago . The onset was gradual. It affects both near and far vision. The symptom is constant. It occurs all the time. The condition is stable. The condition is described as occasional flashes. In addition, the condition is associated with daily activity and chores. The patient denies floaters. CRVO The 77 year old male presents for evaluation of CRVO in the right eye. no change Patient denies v ision change in the left eye since his last visit. increased blurry vision Patient reports increased blurry vision in the right eye since his last visit 1 month ago. Patient notes it starts to clear up throughout the day but has been more frequent. Patient denies new flashes, floaters and eye pain. Patients last Eylea injection was 06/22/17. CRVO The 77 year old male presents for evaluation of CRVO in the right eye. stable vision The patient repo rts stable vision in the right eye x 2 months. It affects both near and far vision. . The patient denies floaters, eye pain. The patient notes that he has occasional flashes. CRVO with macular edema The 77 y ear old male presents for evaluation of CRVO with macular edema in the right eye. denies visual changes The patien t denies visual changes in both eyes since his last visit 7 weeks ago. The patient denies change in vision, eye pain, floaters. notes of more flashes The patien t notes of noticing more flashes in both eyes recently, usually notices them a couple times per week. States that they come on suddenly, last about 10 mintues and then go away. CRVO with macular edema The 77 y ear old male presents for evaluation of CRVO with macular edema in the right eye. flashes The patient repo rts flashes in the right eye and left eye for years. The onset was sudden. Vision is not affected. The symptom is intermittent. The condition is mild. In addition, the condition is associated with daily activity and chores. The patient denies floaters. increase in vision The patient r eports an increase in vision in the right eye. It started about 1 month ago . The onset was gradual. It affects both near and far vision. The symptom is constant. The condition is improving. In addition, the condition is associated with daily activity and chores. Injection only of Ey sari for a CRVO with edema The 77 year old male presents for an Injection only of Eylea for a CRVO with edema in the right eye. decreased vision The patient rep orts constant, gradual, moderate decrease in distance vision in both eyes that is worse in the morning and improves as the day progresses. Denies flashes or floaters currently but does note flashes in the past. macular edema The 77 year old male presents for evaluation of macular edema in the right eye. [facility] Phone: [phone] Instructions* Date Instruction Additional Infor vishnu Impression/Plan Related to Centr al retinal vein occls, right eye, with macular edema 10 wk IO EYL OD OCT (2/3) Relate d to Central retinal vein occls, right eye, with macular edema Impression/Plan Related to Centr al retinal vein occls, right eye, with macular edema Return 8 weeks IO EYL OD (2of3)/ OCT 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, right eye, with macular edema Impression/Plan Related to Centr al retinal vein occls, right eye, with macular edema Impression/Plan Related to Centr al retinal vein occls, right eye, with macular edema Impression/Plan Related to Centr al retinal vein occls, right eye, with macular edema Impression/Plan 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), both eyes Impression/Plan 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, left Impression/Plan Related to Centr al retinal vein occls, right eye, with macular edema Impression/Plan 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, left Impression/Plan Related to Centr al retinal vein occls, right eye, with macular edema Impression/Plan 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, moderate stage Impression/Plan Related to Centr al retinal vein occls, right eye, with macular edema Impression/Plan Related to Age-r elated nuclear cataract, bilateral 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 Impression/Plan 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, 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 Impression/Plan Related to Centr al retinal vein occls, right eye, with macular edema Return in 10-11 week (s) with Calvin Carpio MD for IO EYL OD w/OCT 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, right eye, with macular edema 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 Impression/Plan Related to Age-r elated nuclear cataract, bilateral Impression/Plan Related to Low-t ension glaucoma, bilateral, stage unspecified Impression/Plan Related to Centr al retinal vein occls, right eye, with macular edema 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 Impression/Plan Related to Low-t ension glaucoma, bilateral, stage unspecified Impression/Plan Related to Age-r elated nuclear cataract, bilateral Impression/Plan Related to Centr al retinal vein occls, right eye, with macular edema Return in 13 week(s) with Kev Tabares MD for follow up, OCT, possible Eylea OD 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, right eye, with macular edema Impression/Plan Related to Low-t ension glaucoma, bilateral, stage unspecified Impression/Plan Related to Macul ar edema Impression/Plan Related to Centr al retinal vein occls, right eye, with macular edema Impression/Plan Related to Age-r elated nuclear cataract, bilateral Return in 10-12 week (s) with Kev Tabares MD for follow up, OCT, possible Eylea OD 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, right eye, with macular edema Impression/Plan Related to Low-t ension glaucoma, bilateral, stage unspecified Impression/Plan Related to Macul ar edema Impression/Plan Related to Age-r elated nuclear cataract, bilateral Impression/Plan Related to Centr al retinal vein occls, right eye, with macular edema Return in Related to Centr al retinal vein occls, right eye, with macular edema Impression/Plan Related to Low-t ension glaucoma, bilateral, stage unspecified Impression/Plan Related to Macul ar edema Impression/Plan Related to Centr al retinal vein occls, right eye, with macular edema Impression/Plan Related to Essen tial (primary) hypertension Impression/Plan Related to Age-r elated nuclear cataract, bilateral Impression/Plan 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 Return in Related to Centr al retinal vein occls, right eye, with macular edema Impression/Plan Related to Centr al retinal vein occls, right eye, with macular edema Impression/Plan Related to Macul ar edema Impression/Plan Related to Essen tial (primary) hypertension Impression/Plan Related to Age-r elated nuclear cataract, bilateral Impression/Plan 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 Impression/Plan Related to Low-t ension glaucoma, bilateral, stage unspecified Return in 3 months w ann marie Tabares MD for follow up, OCT, possible Eylea OD 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, right eye, with macular edema Impression/Plan Related to Age-r elated nuclear cataract, bilateral Impression/Plan 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 Impression/Plan Related to Low-t ension glaucoma, bilateral, stage unspecified Impression/Plan Related to Essen tial (primary) hypertension Impression/Plan Related to Centr al retinal vein occls, right eye, with macular edema Return in 5 week(s) with Kev Tabares MD for follow up exam and OCT, possible Eylea 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, right eye, with macular edema Impression/Plan Related to Age-r elated nuclear cataract, bilateral Impression/Plan Related to Low-t ension glaucoma, bilateral, stage unspecified Impression/Plan 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 Impression/Plan Related to Centr al retinal vein occls, right eye, with macular edema Return in 6-8 week(s ) with Kev Tabares MD for follow up exam and OCT, poss Eylea OD 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, right eye, with macular edema Impression/Plan Related to Centr al retinal vein occls, right eye, with macular edema Impression/Plan Related to Essen tial (primary) hypertension Impression/Plan Related to Age-r elated nuclear cataract, bilateral Impression/Plan Related to Low-t ension glaucoma, bilateral, stage unspecified Impression/Plan 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, bilateral, stage unspecified Impression/Plan Related to Centr al retinal vein occls, right eye, with macular edema Return in 3 months w ith Kev Tabares MD for follow up exam and OCT, poss Eylea OD 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, right eye, with macular edema - 3 Months-Kev rojas MD for eval/OCT, poss Eylea OD Impression/Plan Related to Centr al retinal vein occls, right eye, with macular edema Return in 3 months w ith Kev Tabares MD for follow up, OCT, possible Eylea OD 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, right eye, with macular edema Impression/Plan Related to Essen tial (primary) hypertension Impression/Plan Related to Low-t ension glaucoma, bilateral, stage unspecified Impression/Plan Related to Age-r elated nuclear cataract, bilateral Impression/Plan 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 Impression/Plan Related to Centr al retinal vein occls, right eye, with macular edema Return in 3 months w ith Kev Tabares MD for follow up, OCT, possible Eylea OD 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, right eye, with macular edema Impression/Plan Related to Centr al retinal vein occls, right eye, with macular edema Impression/Plan Related to Essen tial (primary) hypertension Impression/Plan Related to Low-t ension glaucoma, bilateral, stage unspecified Impression/Plan Related to Age-r elated nuclear cataract, bilateral Impression/Plan 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 Tabares for FU/OCT/possible EYLEA OD. 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 Tabares for follow up exam and OCT. The need for additional Eylea OD will be determined at that time. 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 Tabares for FU/OCT/possible EYL OD. 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 Tabares for FU/OCT/possible EYLEA. 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 Tabares for follow up exam with OCT and possible Eylea OD. 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 Tabares for follow up exam with OCT and possible Eylea OD. 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, right eye, with macular edema Impression/Plan - RI GHT: Central Retinal Vein Occlusion with minimal macular edema was noted on examination today and explained to the patient. Patient reports being significantly symptomatic. Continued antiVEGF treatment was recommended to reduce the macular edema and hopefully improve vision. Risks, benefits, and alternatives were reviewed. The patient chose to continue treatment and received an intravitreal injection of Eylea today. The patient tolerated the procedure well and has been instructed to call immediately with severe pain, non-watery discharge or visual changes. The ocular and systemic benefits of blood pressure control were rediscussed as well as follow up compliance from a retinal standpoint and with the PCP. 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 Vision limiting factor - will monitor. 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 Referral for surgical intervention is not indicated at this time. Related to Age-related nuclear cataract, bilateral Impression/Plan - Po sterior vitreous detachment was noted on examination today and explained to the patient. There is no evidence of a retinal tear, break or detachment. Patient instructed to call the office immediately if any symptoms noted. Related to Vitreous degeneration, bilateral Impression/Plan - Th e importance of blood pressure control was discussed today. The patient was advised of both ocular and systemic benefits of blood pressure control. They were advised to maintain close follow up with PCP to monitor BP status and immediate follow up if BP readings are greater than 140/90. Related to Essential (primary) hypertension Return in [address] Tabares for follow up exam and OCT. Related to Central retinal vein occlusion, right eye, stable Impression/Plan - RI GHT: Patient was advised to use TobraDex qd as needed to help relieve allergic response. Related to Other chronic allergic conjunctivitis Impression/Plan - Ce ntral Retinal Vein Occlusion with resolved macular edema s/p Eylea 02-15-18 was noted on examination today and discussed with the patient. No additional treatment is indicated today; will monitor closely. The ocular and systemic benefits of blood pressure control were rediscussed as well as follow up compliance from a retinal standpoint and with the PCP. Appropriate follow up with primary eye medical care evaluation specialist was recommended. Patient was advised to call with any changes in vision prior to next appointment. Related to Central retinal vein occlusion, right eye, stable Follow up - Return i n [address] Tabares for follow up exam and OCT. Related to Central retinal vein occlusion, right eye, stable Impression/Plan - Th e importance of blood pressure control was discussed today. The patient was advised of both ocular and systemic benefits of blood pressure control. They were advised to maintain close follow up with PCP to monitor BP status and immediate follow up if BP readings are greater than 140/90. Related to Essential (primary) hypertension Impression/Plan - Re gular follow up appointments with the patient's comprehensive eye doctor were recommended to monitor the patients cataract for progression. Referral for surgical intervention is not indicated at this time. Related to Age-related nuclear cataract, bilateral Impression/Plan - Th ere is no evidence of a retinal tear, break or detachment. 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 Vision limiting factor - will monitor. 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 Related to Central retinal vein occlusion, right eye, with macular edema Return in [address] Tabares for follow up exam and OCT. The need for additional Eylea OD will be determined at that time. 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, right eye, with macular edema Impression/Plan - Po sterior vitreous detachment was noted on examination today and explained to the patient. There is no evidence of a retinal tear, break or detachment. Patient instructed to call the office immediately if any symptoms noted. Related to Vitreous degeneration, bilateral Impression/Plan - Re gular follow up appointments with the patient's comprehensive eye doctor were recommended to monitor the patients cataract for progression. Referral for surgical intervention is not indicated at this time. Related to Age-related nuclear cataract, bilateral Follow up - Return i n [address] Tabares for follow up exam and OCT. The need for additional Eylea OD will be determined at that time. 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, right eye, with macular edema Impression/Plan - RI GHT: Patient reports intermittent blurring right eye when sitting outside to read. Recommend TobraDex tid OD to help relieve allergic response. E-prescribed today. 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 Vision limiting factor - will monitor. 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 Vision remains good and stable; no additional anti-VEGF treatment was recommended at this time. The risk of worsening edema was discussed, and the patient was advised to call with any changes prior to their next scheduled appointment. The ocular and systemic benefits of blood pressure control were also discussed as well as follow up compliance from a retinal standpoint and with the PCP. 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, right eye, with macular edema Keep 03/08 appointmen t for follow up and OCT. 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 No additional anti-VEGF treatment was recommended at this time. 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 The risk of recurrent edema was discussed, and the patient was advised to call with any changes prior to their next scheduled appointment. The ocular and systemic benefits of blood pressure control were also discussed as well as follow up compliance from a retinal standpoint and with the PCP. Appropriate follow up with primary eye medical care evaluation specialist was recommended. 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 Referral for surgical intervention is not indicated at this time. Related to Age-related nuclear cataract, bilateral Impression/Plan - Po sterior vitreous detachment was noted on examination today and explained to the patient. There is no evidence of a retinal tear, break or detachment. Patient instructed to call the office immediately if any symptoms noted. 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 Vision limiting factor - will monitor. 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 The need for additional Eylea OD will be determined at that time. 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 Referral for surgical intervention is not indicated at this time. Related to Age-related nuclear cataract, bilateral Impression/Plan - Po sterior vitreous detachment was noted on examination today and explained to the patient. There is no evidence of a retinal tear, break or detachment. Patient instructed to call the office immediately if any symptoms noted. 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 No additional anti-VEGF treatment was recommended at this time. The risk of recurrent edema was discussed, and the patient was advised to call with any changes prior to their next scheduled appointment. The ocular and systemic benefits of blood pressure control were also discussed as well as follow up compliance from a retinal standpoint and with the PCP. Appropriate follow up with primary eye medical care evaluation specialist was recommended. 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 Vision limiting factor - will monitor. 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 Tabares for follow up exam and OCT. The need for additional Eylea OD will be determined at that time. 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 Tabares for follow up exam with OCT and possible Eylea OD. 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, right eye, with macular edema Follow up - Return i n 10-[address] Tabares for follow up exam with OCT and possible Eylea OD. 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, right eye, with macular edema Impression/Plan - Re gular follow up appointments with the patient's comprehensive eye doctor were recommended to monitor the patients cataract for progression. Referral for surgical intervention is not indicated at this time. 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 Vision limiting factor - will monitor. 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 See plan #1. Related to Retinal hemorrhage, right eye Impression/Plan - RI GHT: Central Retinal Vein Occlusion with mild, recurrent macular edema was noted on examination today and explained to the patient. Continued antiVEGF treatment was recommended to reduce the macular edema and hopefully improve vision. Risks, benefits, and alternatives were reviewed. The patient chose to continue treatment and received an intravitreal injection of Eylea today. The patient tolerated the procedure well and has been instructed to call immediately with severe pain, non-watery discharge or visual changes. The ocular and systemic benefits of blood pressure control were rediscussed as well as follow up compliance from a retinal standpoint and with the PCP. Appropriate follow up with primary eye medical care evaluation specialist was recommended. 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, right eye, with macular edema Return in [address] Tabares for follow up exam and OCT. Related to Central retinal vein occlusion, right eye, stable Impression/Plan - Re gular follow up appointments with the patient's comprehensive eye doctor were recommended to monitor the patients cataract for progression. Referral for surgical intervention is not indicated at this time. 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 Vision limiting factor - will monitor. 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 R elated to Retinal hemorrhage, right eye Impression/Plan - Ce ntral Retinal Vein Occlusion with resolved macular edema was noted on examination today. The patient has responded well to anti-VEGF treatments(EYLEA); no additional treatment is indicated today. The ocular and systemic benefits of blood pressure control were rediscussed as well as follow up compliance from a retinal standpoint and with the PCP. Appropriate follow up with primary eye medical care evaluation specialist was recommended. Related to Central retinal vein occlusion, right eye, stable Follow up - Return i n [address] Tabares for follow up exam and OCT. Related to Central retinal vein occlusion, right eye, stable Return in 10-[address] Tabares for follow up exam with OCT and possible Eylea OD. 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, right eye, with macular edema Impression/Plan - RI GHT: * Central Retinal Vein Occlusion with resolving macular edema was noted on examination today and explained to the patient. Continued antiVEGF treatment was recommended to reduce the macular edema and hopefully improve vision. Risks, benefits, and alternatives were reviewed. Due to his recent improvement, we will increase the dosing interval to 10-12 weeks. The patient chose to continue treatment and received an intravitreal injection of Eylea today. The patient tolerated the procedure well and has been instructed to call immediately with severe pain, non-watery discharge or visual changes. The ocular and systemic benefits of blood pressure control were rediscussed as well as follow up compliance from a retinal standpoint and with the PCP. 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, right eye, with macular edema Impression/Plan - Se condary to CRVO - will treat with Eylea and continue to monitor. See plan #1. 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 Vision limiting factor - will monitor. 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 Referral for surgical intervention is not indicated at this time. Related to Age-related nuclear cataract, bilateral Follow up - Return i n 10-[address] Tabares for follow up exam with OCT and possible Eylea OD. 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, right eye, with macular edema - 6 wks for INJ EYL OD w/OCT Rel ated to Central retinal vein occlusion, right eye, with macular edema Return in [address] Tabares for INJ EYL OD w/OCT. Dilate OD only. 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, right eye, with macular edema Impression/Plan - Se condary to CRVO - will treat with Eylea and continue to monitor. See plan #1. 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 Vision limiting factor - will monitor. 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 Tabares for INJ EYL OD w/OCT. Dilate OD only. 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, right eye, with macular edema Impression/Plan - Re gular follow up appointments with the patient's comprehensive eye doctor were recommended to monitor the patients cataract for progression. Referral for surgical intervention is not indicated at this time. Related to Age-related nuclear cataract, bilateral Impression/Plan - Po sterior vitreous detachment was noted on examination today and explained to the patient. There is no evidence of a retinal tear, break or detachment. Patient instructed to call the office immediately if any symptoms noted. Related to Vitreous degeneration, bilateral Impression/Plan - RI GHT: Central Retinal Vein Occlusion with macular edema was noted on examination today and explained to the patient. Initial antiVEGF treatment was recommended to reduce the macular edema and hopefully improve vision. Risks, benefits, and alternatives were discussed. The patient chose to proceed with treatment and received an intravitreal injection of Eylea today. The patient tolerated the procedure well and has been instructed to call immediately with severe pain, non-watery discharge or visual changes. The ocular and systemic benefits of blood pressure control were discussed as well as follow up compliance from a retinal standpoint and with the PCP. Appropriate follow up with primary eye medical care evaluation specialist was recommended. Educational materials: Venous Occlusions 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, right eye, with macular edema [facility] Work Phone: [phone]) 676-156907-15-2025 History of Present illness Narrative* Jacques Aguilar MA - 04/09/2025 1:45 PM EDTAssociated Order(s): L Inj/Asp: L knee Post-Procedure Diagnose(s): Localized osteoarthritis of left knee L Inj/Asp: L knee on 04/09/2025 2:47 PM Indications: pain Details: 22 G needle, anterolateral approach Medications: 32 mg triamcinolone acetonide 32 MG Procedure, treatment alternatives, risks and benefits explained, specific risks discussed. Consent was given by the patient. Immediately prior to procedure a time out was called to verify the correctpatient, procedure, equipment, net application support specialist and site/side marked as required. Patient was prepped and draped in the usual sterile fashion. * SKIP Ratliff - 04/09/2025 1:45 PM EDT Images from the original note were not included. Subjective Patient ID: Bravo Arce is a 85 y.o. male. Chief Complaint: Follow-up of the Left Knee Last Surgery: No surgery found Last Surgery Date: No surgery found HPI Sean comes in he did not get quite the relief he is expecting with his last cortisone injection he is not due for Visco injection at this point he is hopeful to get some relief until he can have the jelly done again. We will try a longer-acting cortisone called Zilretta Objective Ortho Exam Patient has mild effusion today there is no prepatellar swelling redness or rash she has near full extension and flexion of 110 degrees. Mediolateral collateral ligaments are stable he has no prepatellar swelling redness or rash no fever of the joint. Image Results: Narrative Imaging Result: Multiple weightbearing views (AP, Lateral and sunrise) are reviewed for the permanent PACS record. 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 No fracture, dislocation, tumor or infection seen. Images are reviewed with the patient at length. Assessment/Plan Encounter Diagnoses: Localized osteoarthritis of left knee Orders Placed This Encounter L Inj/Asp: L knee Follow up if symptoms worsen or fail to improve. Would anticipate this Zilretta to start helping reduce pain and swelling of the knee over the next week or 2. Suspected that this will last longer than the standard cortisone injections. No real limitations other than occasional cold pack 20 minutes several times a day and consider doing a open patella knee support brace. Continue your cane for balance and we will follow up as needed or when it is time for your next Visco injection. Tylenol for breakthrough discomfort. Patient seen and treated with the assistance of Claudia VALDIVIA documented in this [facility]07-15-2025 Instructions* Patient Instructions* SKIP Ratliff - 04/09/2025 1:45 PM EDT Would anticipate this Zilretta to start helping reduce pain and swelling of the knee over the next week or 2. Suspected that this will last longer than the standard cortisone injections. No real limitations other than occasional cold pack 20 minutes several times a day and consider doing a open patella knee support brace. Continue your cane for balance and we will follow up as needed or when it is time for your next Visco injection. Tylenol for breakthrough discomfort. documented in this [facility]06-24-2025 History of Present illness Narrative* Mary Blount MD - 03/19/2025 11:15 AM EDT Images from the original note were not included. Patient: Bravo Arce Date of : 1940 Sex: male Age: 85 y.o. Date of Service: 03/19/2025 ASSESSMENT AND PLAN I discussed the findings with Bravo Arce and have recommended the followin. Acute on chronic dysphagia, and mild velopharyngeal dysfunction. FEES in the office today with mild penetration but no aspiration across multiple consistencies. - Diet recommendations per GENE Crouch - Follow-up with Kenny for therapy - Nutrition referral for PEG weaning CHIEF COMPLAINT Dysphagia HISTORY OF PRESENT ILLNESS Bravo Arce is a 85 y.o. male referred by Manny South MD for evaluation of PEG-dependent dysphagia. 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 03/19/25 He was admitted to the hospital in September and was intubated for some time. He had an NGFT at that time. He had a PEG afterward when he was in rehab since he had lost a significant amount of weight. [facility] [place] [facility]. He was told her was recommended for NPO and Harper free water. However reports he has been eating at home since his last MBS. Denies lung infections. He indicates he occasionally gets liquids escape up his nose but it does not bother him. 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 ADDITIONAL HISTORY Past Medical History He has a past medical history of Personal history of malignant neoplasm, unspecified, Personal history of other specified conditions, and Secondary malignant neoplasm of other specified sites (12/06/2017). 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 Social History He reports that he has quit smoking. His smoking use included cigarettes. He has never been exposedto tobacco smoke. He has never used smokeless tobacco. No history on file for alcohol use and drug use. Allergies Ciprofloxacin, Gabapentin, and Penicillins Family History Family History[1] REVIEW OF SYSTEMS All 10 systems were reviewed and negative except for above. PHYSICAL EXAM ENT Physical Exam GENERAL: Thin older gentleman, well-developed, alert and appropriate, no distress, voice [id number] RESPIRATORY: Breathing quietly, no stridor HEAD: Normocephalic atraumatic FACE: Symmetric, no masses or lesions EYES: Pupils reactive, sclera clear, external ocular muscles intact, no nystagmus. EARS: Pinnae normal. External auditory canals clear and tympanic membranes intact. NOSE: No anterior lesions, masses or polyps. ORAL CAVITY/OROPHARYNX: Buccal mucosa is moist without lesions or masses, tongue midline and palateelevates symmetrically. Tongue mobility intact. NECK: Soft. There is no lymphadenopathy or thyromegaly. NEUROLOGIC: Cranial nerves II-XII grossly intact. ABDOMEN: PEG site clean, moderate sized ventral hernia Last Recorded Vitals Blood pressure 128/68, temperature 36 C (96.8 F), temperature source Temporal, height 1.829 m (6'),weight 70 kg (154 lb 5.2 oz). RESULTS Patient Reported Outcome Measures N/A Laboratory, Radiology, and Pathology I personally reviewed the following results, with the following interpretation: [facility] 06/07/22 PROCEDURES Flexible Fiberoptic Laryngoscopy Patient failed a mirror exam due to limitations of equipment and the need for laryngoscopy to assess laryngeal anatomy and function PREOPERATIVE DIAGNOSIS: dysphagia POSTOPERATIVE DIAGNOSIS: Same PROCEDURE: Transnasal videolaryngoscopy ANESTHESIA: Topical COMPLICATIONS: None SPECIMENS: None PROCEDURE IN DETAIL: The patient was brought into the endoscopy suite, placed in the upright position. The nasal cavity was topically decongested anesthetized. The distal chip video laryngoscope was passed through the nasal cavity. The nasal cavity and nasopharynx were within normal limits except noted below. The following findings on laryngoscopy were noted: Tongue Base: no masses or lesions Vocal Fold Mobility Right VF: mobile Left VF: mobile TVF Appearance Edema/Erythema: none Lesions/vibratory margin irregularities: none Muscle Tension Patterns: minimal Other Findings: pharyngeal volume loss, mild velopharyngeal dysfunction, pooled secretions throughout The patient tolerated the procedure well. Flexible Fiberoptic Endoscopic Evaluation of Swallowing (FEES) A flexible endoscopic evaluation of swallowing was indicated to assess pharyngeal function. The patient was given trials of thin liquids, purees, dry solids. Findings: mild penetration but no aspiration across multiple consistencies. Please see RELATIONSHIP ASSOCIATE report for complete details. Mary Blount MD, MAEd Examining Officer [facility] Department of Otolaryngology - Head and Neck Surgery [facility] The total time I spent in care of this patient today (excluding time spent on other billable services) is as follows: [1] No family history on file. documented in this [facility] Work Phone: [phone]) 184-971206-24-2025 Procedure note* Kenny Erickson, GENE - 03/19/2025 11:00 AM EDT Images from the original note were not included. Speech-Language Pathology RELATIONSHIP ASSOCIATE Adult Outpatient FEES Evaluation of Swallow Patient Name: Bravo Arce Today's Date: 03/19/2025 Time Calculation Start Time: 1100 Stop Time: 1145 Time Calculation (min): 45 min Reason for Consult: Bravo Arce received in clinic with Dr. Mary Blount for evaluation of chronic dysphagia. 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 He had an NGFT at that time and aPEG was places afterward while he was in rehab. His last swallow [facility] was [facility] [place] on 02/19/25; NPO was recommended with Harper free water. However pt reports he has been eating small amounts at home since his last MBS. Diet Recommendations: Soft and Bite Sized textures with thin liquids with the following strategies: Alternate liquids and solids Multiple swallows per bite and sip Additional Recommendations: - Frequent oral care throughout the day - Follow up with wind turbine machinist to assist with TF adjustments and eventual transition to full PO diet. Pt to meet with Lesvia Thorpe this date. Impression: Mild oropharyngeal dysphagia Reduced white out duration; followed by evidence of inconsistent trace penetration of thin liquids to the level of the true vocal folds. No evidence of aspirate materials in the subglottic space or tracheal rings after multiple thin liquids boluses. Penetrated materials eventually clearing the vestibule with multiple swallows. No further penetration or aspiration noted across other consistencies.Post swallow stasis scattered throughout the oropharynx and hypopharynx that ranged from 2% to 7%. Pt able to effectively clear stasis with multiple swallows and/or liquid wash. Airway Protection: Rosenbek's Penetration Aspiration Scale Thin Liquids: 4. DEEP PENETRATION that clears - contrast contacts vocal cords, no residue Inconsistent and pt able to clear. Puree: 1. NO ASPIRATION & NO PENETRATION - no aspiration, contrast does not enter airway Soft Solids: 1. NO ASPIRATION & NO PENETRATION - no aspiration, contrast does not enter airway Efficiency: VASES: residues; 3 dimensional >3% Thin liquids- <3% Purees-5% Solids- 7% Compensatory Strategies: Alternate liquids and solids with double swallows. FEES: FEES Verbal Consent: Fiberoptic Endoscopic Evaluation of Swallowing exam was completed once informed verbal consent was obtained- Yes Scoped Passed: R narzoie Following Application Of: Surgilube Patient Tolerated Procedure: Yes A flexible endoscopic examination of swallowing (FEES) was completed in clinic today to visualize the pharyngeal-laryngeal anatomy, secretion management, swallowing function, and effectiveness of compensatory strategies while consuming foods and liquids of various volumes and textures. Surgical lube was utilized to lubricate the endoscope prior to insertion. All boluses were self- administered or a by clinician. Natural and single swallowing conditions were provided with the instructions. All liquid and solids trials were dyed white with clear water given between trials to improve quality of images. Anatomical Observations for Non-Swallow Tasks: - VPI present - Reduced BOT retraction - Reduced posterior pharyngeal wall constriction - Segments of hypertrophy of the posterior pharyngeal wall suggestive possible anterior cervical osteophytes. - Secretion burden- yes moderate white frothy to clear secretions throughout the oropharynx and hypopharynx without aspiration. (See image below) Edema: Epiglottis: 0- Normal Vallecula: 0- Normal Pharyngoepiglottic folds: 0- Normal Aryepiglottic folds: 0- Normal Arytenoids: 0- Normal Pyriform sinuses: 0- Normal False Vocal folds: 0- Normal True Vocal folds: 0- Normal Functional Oral Intake Scale FIOS level Comment Level 1 Nothing by Mouth Level 2 Tube dependent with minimal attempts of food and liquid. X Level 3 Tube dependent with consistent oral intake of food and liquid. Level 4 Total oral diet of a single consistency. Level 5 Total oral diet with multiple consistencies, but requires special preparations and compensations. Level 6 Total oral diet with multiple consistencies without special preparations but specific food limitations. Level 7 Total oral diet with no restrictions. Rehab Prognosis: Established: 03/19/25 Status: Progressing Duration: 3 months Short Term Goals: - Pt will complete effortful swallows 10 reps, 3 times per day for 7 days a week; to strengthen pharyngeal muscles for improve bolus clearance through the pharynx. - Pt will utilize and recall compensatory strategies independent of cues 100% of the time to tolerate the least restrictive diet without overt s/s of pharyngeal deficits. - Patient will tolerate the least restrictive diet without overt s/s of oropharyngeal dysphagia 10/10 trials. Forestry Contractor Goals: - Pt will improve swallow function as measured by improved FIOS score by time of discharge. Education/Treatment: Instructed patient this date in: - Results and recommendations from today's FEES exam discussed with patient in detail. - Diet modifications and swallow guidelines reviewed Clinician modeled all techniques and accurate patient follow through confirmed. Handouts emailed/provided to facilitate optimal home carryover [facility] Work Phone: [phone]) 813-743306-24-2025 Procedure note* GENE Monge - 03/19/2025 11:00 AM EDT Images from the original note were not included. Speech-Language Pathology RELATIONSHIP ASSOCIATE Adult Outpatient FEES Evaluation of Swallow Patient Name: Bravo Arce Today's Date: 03/19/2025 Time Calculation Start Time: 1100 Stop Time: 1145 Time Calculation (min): 45 min Reason for Consult: Bravo Arce received in clinic with Dr. Mary Blount for evaluation of chronic dysphagia. 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 He had an NGFT at that time and aPEG was places afterward while he was in rehab. His last swallow study was completed[facility] on 02/19/25; NPO was recommended with Harper free water. However pt reports he has been eating small amounts at home since his last MBS. Diet Recommendations: Soft and Bite Sized textures with thin liquids with the following strategies: Alternate liquids and solids Multiple swallows per bite and sip Additional Recommendations: - Frequent oral care throughout the day - Follow up with wind turbine machinist to assist with TF adjustments and eventual transition to full PO diet. Pt to meet with Lesvia Thorpe this date. Impression: Mild oropharyngeal dysphagia Reduced white out duration; followed by evidence of inconsistent trace penetration of thin liquids to the level of the true vocal folds. No evidence of aspirate materials in the subglottic space or tracheal rings after multiple thin liquids boluses. Penetrated materials eventually clearing the vestibule with multiple swallows. No further penetration or aspiration noted across other consistencies.Post swallow stasis scattered throughout the oropharynx and hypopharynx that ranged from 2% to 7%. Pt able to effectively clear stasis with multiple swallows and/or liquid wash. Airway Protection: Rosenbek's Penetration Aspiration Scale Thin Liquids: 4. DEEP PENETRATION that clears - contrast contacts vocal cords, no residue Inconsistent and pt able to clear. Puree: 1. NO ASPIRATION & NO PENETRATION - no aspiration, contrast does not enter airway Soft Solids: 1. NO ASPIRATION & NO PENETRATION - no aspiration, contrast does not enter airway Efficiency: VASES: residues; 3 dimensional >3% Thin liquids- <3% Purees-5% Solids- 7% Compensatory Strategies: Alternate liquids and solids with double swallows. FEES: FEES Verbal Consent: Fiberoptic Endoscopic Evaluation of Swallowing exam was completed once informed verbal consent was obtained- Yes Scoped Passed: R naris Following Application Of: Surgilube Patient Tolerated Procedure: Yes A flexible endoscopic examination of swallowing (FEES) was completed in clinic today to visualize the pharyngeal-laryngeal anatomy, secretion management, swallowing function, and effectiveness of compensatory strategies while consuming foods and liquids of various volumes and textures. Surgical lube was utilized to lubricate the endoscope prior to insertion. All boluses were self- administered or a by clinician. Natural and single swallowing conditions were provided with the instructions. All liquid and solids trials were dyed white with clear water given between trials to improve quality of images. Anatomical Observations for Non-Swallow Tasks: - VPI present - Reduced BOT retraction - Reduced posterior pharyngeal wall constriction - Segments of hypertrophy of the posterior pharyngeal wall suggestive possible anterior cervical osteophytes. - Secretion burden- yes moderate white frothy to clear secretions throughout the oropharynx and hypopharynx without aspiration. (See image below) Edema: Epiglottis: 0- Normal Vallecula: 0- Normal Pharyngoepiglottic folds: 0- Normal Aryepiglottic folds: 0- Normal Arytenoids: 0- Normal Pyriform sinuses: 0- Normal False Vocal folds: 0- Normal True Vocal folds: 0- Normal Functional Oral Intake Scale FIOS level Comment Level 1 Nothing by Mouth Level 2 Tube dependent with minimal attempts of food and liquid. X Level 3 Tube dependent with consistent oral intake of food and liquid. Level 4 Total oral diet of a single consistency. Level 5 Total oral diet with multiple consistencies, but requires special preparations and compensations. Level 6 Total oral diet with multiple consistencies without special preparations but specific food limitations. Level 7 Total oral diet with no restrictions. Rehab Prognosis: Established: 03/19/25 Status: Progressing Duration: 3 months Short Term Goals: - Pt will complete effortful swallows 10 reps, 3 times per day for 7 days a week; to strengthen pharyngeal muscles for improve bolus clearance through the pharynx. - Pt will utilize and recall compensatory strategies independent of cues 100% of the time to tolerate the least restrictive diet without overt s/s of pharyngeal deficits. - Patient will tolerate the least restrictive diet without overt s/s of oropharyngeal dysphagia 10/10 trials. Forestry Contractor Goals: - Pt will improve swallow function as measured by improved FIOS score by time of discharge. Education/Treatment: Instructed patient this date in: - Results and recommendations from today's FEES exam discussed with patient in detail. - Diet modifications and swallow guidelines reviewed Clinician modeled all techniques and accurate patient follow through confirmed. Handouts emailed/provided to facilitate optimal home carryover documented in this [facility] Work Phone: [phone] History of Present illness Narrative* Halima Ponce, DO - 03/13/2025 10:15 AM EDT Images from the original note were not included. Assessment/Plan Diagnoses and all orders for this visit: 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) - Longstanding pt with RVA. Receives antiVEGF [id number]. Primary open angle glaucoma (POAG) of both eyes, mild stage - Primary open angle glaucoma OU - Importance of taking medications as prescribed was stressed. Patient was advised to report any inability or unwillingness to take medications or if cost is a concern. Patient must report any side effects that may develop. Patient must report any change in systemic medications as they may interact or interfere with their glaucoma medications. Patient will be dilated at least on an annual basis for optic nerve evaluation and will likely have an automated visual field examination at least once a year. It was explained to the patient that they might require additional treatment for intraocular pressure control such as laser therapy or surgical intervention - Cont Latanoprost both eyes (OU) at bedtime. Will add Combigan right eye (OD) 1hr before antiVEGF and 2hrs after. (Sample given) Age-related nuclear cataract of both eyes - Cataract, OU: Observe for now without intervention. The patient was advised to contact us if any change or worsening of vision Dry eyes - Dry Eyes OU -- Environmental changes to minimize dryness and exposure and the use of artificial tears were recommended. 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 Blepharitis of upper and lower eyelids of both eyes, unspecified type - Blepharitis, posterior type OU - The patient exhibits inspissated meibomian glands. Warm compresses, lid massage and lid scrubs were recommended. documented in this [id number] Evaluation note* Diagnosis Onset Date Resolution Status Admit Date Closed displaced fracture of left femoral neck acute March 11 10:54am History of total right hip arthroplasty noneactive March 11, 2025 10:54am History of head and neck cancer acute April 01, 2025 9 :53am Medicare annual wellness visit, subsequent acute April 01, 2025 9:53am Swallowing disorder acute April 01, 2025 9:53am [facility] Work Phone: [phone] History of Present illness Narrative* Jacques Aguilar MA - 02/27/2025 10:45 AM EDTAssociated Order(s): L Inj/Asp: L knee Post-Procedure Diagnose(s): Localized osteoarthritis of left knee L Inj/Asp: L knee on 02/27/2025 10:47 AM Indications: pain Details: 25 G needle, ultrasound-guided anterolateral approach Medications: 12 mg betamethasone acetate-betamethasone sodium phosphate 6 (3-3) MG/ML Procedure, treatment alternatives, risks and benefits explained, specific risks discussed. Consent was given by the patient. Immediately prior to procedure a time out was called to verify the correctpatient, procedure, equipment, net application support specialist and site/side marked as required. Patient was prepped and draped in the usual sterile fashion. * SKIP Ratliff - 02/27/2025 10:45 AM EDT Images from the original note were not included. Subjective Patient ID: Bravo Arce is a 85 y.o. male. Chief Complaint: Follow-up of the Left Knee Last Surgery: No surgery found Last Surgery Date: No surgery found HPI Bravo comes in today he would like to have cortisone he still doing fairly well with his Visco injections which he gets through Dr. Villatoro. Still not ready to sign up for any kind of surgery. He is ambulating with a cane. He continues to improve from his left total hip replacement. Objective Ortho Exam Patient has mild swelling of the knee with no significant erythema or fever. No prepatellar swelling redness or rash mediolateral collateral ligaments are stable. He has has full extension with flexion of about 110 degrees. Image Results: XR knee 3 views left Imaging Result: Multiple weightbearing views (AP, Lateral and sunrise) are reviewed for the permanent PACS record. 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 No fracture, dislocation, tumor or infection seen. Images are reviewed with the patient at length. Assessment/Plan Encounter Diagnoses: Localized osteoarthritis of left knee Orders Placed This Encounter L Inj/Asp: L knee Follow up if symptoms worsen or fail to improve. May receive the cortisone ideally every 4 months equal in 3 times a year and do this around and in between the Visco injections as they do tend to give you relief. Would anticipate improvement with this after 48 hours up to 1 week. Ice to the knee 20 minutes several times a day and continue any supportive knee brace as needed and your cane. Call for any concerns if tolerated from GI and renal standpoint or if her utilization engineer allows he may take anti-inflammatory medicine otherwise Tylenol for breakthrough discomfort. documented in this [facility]06-04-2025 Instructions* Patient Instructions* SKIP Ratliff - 02/27/2025 10:45 AM EDT May receive the cortisone ideally every 4 months equal in 3 times a year and do this around and in between the Visco injections as they do tend to give you relief. Would anticipate improvement with this after 48 hours up to 1 week. Ice to the knee 20 minutes several times a day and continue any supportive knee brace as needed and your cane. Call for any concerns if tolerated from GI and renal standpoint or if her utilization engineer allows he may take anti-inflammatory medicine otherwise Tylenol for breakthrough discomfort. documented in this [facility]05-13-2025 Evaluation note* Diagnosis Onset Date Resolution Status Admit Date Chronic kidney disease (CKD) , stage III (moderate) acute February 05, 2 025 10:22am Swallowing disorder acute January 242024 10:22am Closed displaced fracture of left femoral neck acute March 11 10:54am History of total right hip arthroplasty noneactive March 11, 2025 10:54am History of head and neck cancer acute April 01, 2025 9 :53am Medicare annual wellness visit, subsequent acute April 01, 2025 9:53am Swallowing disorder acute April 01, 2025 9:53am [facility] Work Phone: [phone] History of Present illness Narrative* Manny Parra MD - 01/22/2025 10:30 AM EDT Provider Impressions Status post surgery and radiation therapy for metastatic skin carcinoma. There is no evidence of any tumor recurrence. Ongoing dysphagia. He had a PEG placed recently and is now undergoing swallowing therapy. I will see him in 6 months. 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 On December 21, 2017 he underwent surgical excision. He had excision ofthe skin, parotidectomy, and neck dissection. He was found to have more skin involvement than we thought. The pathology showed squamous cell carcinoma involving the parotid and adjacent tissues. The margins were negative. He also had 3 positive nodes. He completed his radiation therapy in February 2018. He had a TSH in July 2023 was normal. He also had a chest x-ray in 2024 which was negative. Anuphas had a lot of medical issues since I last saw him. He kind of passed out at home and they felt that he had some type of neurologic issues. Then later on he ended up with a broken hip. He eventually had a PEG tube placed and is now working with a swallowing therapist at home. Physical Exam Palpation of the parotid, neck, and thyroid field fails to show any worrisome masses or adenopathies. More specifically I cannot appreciate anything worrisome on the treatment side. Examination of the oral cavity and oropharynx is negative. He does have significant dryness. A flexible laryngoscopy was carried out. Under topical Xylocaine and Kush- Synephrine the scope was introduced through the nostril. The nasopharynx, base of tongue, hypopharynx, and larynx are visualized. The vocal cords are normally mobile. There is no pooling of secretions in the piriform sinuses. There is no evidence of any mucosal lesions. There is some minimal dryness. documented in this [facility] Work Phone: [phone] History of Present illness Narrative* Chester Brown - 01/17/2025 9:45 AM EDT [place] [id number] AMBULATORY PROCEDURE NOTE NAME: Bravo Arce AGE: [age] year old CLINIC #: [id number] DATE: January 17, 2025 SURGEON: Jose Garcia MD, MS PROCEDURE: Cystoscopy ANESTHESIA: Lidocaine gel per urethra DIAGNOSIS: Bladder cancer Date of Initial Diagnosis: 04/2022 Tumor Stage of Initial Diagnosis: T1 Grade at Initial Diagnosis: high. Site of First Diagnosis: Bladder Any Recurrence? N/A Intravesical Treatments: TURBT 05/17 Date of Last Cysto: 06/28/2024 Date of Last Upper Tract Imagin07/20/24 CTU INDICATION: Surveillance FINDINGS: Tumor present: No Urethra: Normal Prostate: Moderate lateral lobes Verumontanum: Open Urine cytology: Not sent PROCEDURE: After informed consent was obtained, the patient was taken to the endoscopy suite. A time out was performed where the patient and the procedure were identified in the presence of the Nursing and Surgical Staff. Patient was placed in supine position, prepped and draped in the standard sterile fashion. Lidocaine gel was placed per urethra for local anesthesia. Cystoscopy was then performed using a 17 F flexible cystoscope. Sterile technique was maintained throughout. Please refer to above for specific findings during this part of the procedure. After carefully and atraumatically inspecting the urethra, prostate, and bladder, the bladder was emptied and the cystoscope was removed. The patient tolerated the procedure well and there were no complications. ASSESSMENT/PLAN: [facility] The patient is seen and examined by Dr. Jose Garcia and the following reflects his/her service. Scribed by Chester Brown I agree with the Chief Complaint, ROS, and Past Histories independently gathered by the clinical net application support specialist including scribe and or medical student and or SARAVANAN and or resident or fellow and the remaining scribed note accurately describes my personal service to the patient. Jose Garcia MD, MS [facility] * Danielle Torres RN - 01/17/2025 9:38 AM EDT Patient ID with (2) Identifiers, Verified by: Danielle Torres RN Actual procedure/procedure scheduled: Yes Performing provider/scheduled provider: Yes Patient was roomed in: Q9- 06 Web Designer Developer offered:Patient accepts, visit chaperoned by Patient arrived in the room at: 0945 Patient ready for procedure: 0956 The procedure started at ( Time Only): 1017 The procedure ended at: 1023 Was the procedure delayed: No ProNox Utilized: No The patient left the procedure room at: 1045 Danielle Torres RN PRE PROCEDURE ASSESSMENT- Cysto Latex Allergy: No Allergies reviewed and updated. Yes Pre-Procedure Vital Signs: BP: 133/84 Pulse: 70 Heart valve replacement: No Joint replacement: Yes, partial hip in 10/2024 Patient unable to swallow, antibiotic given via feeding tube Back Office UA otained: no PROCEDURE PREP-Cysto Patient Prep: Betadine Placement of Sterile Drape: COMPLETED Anesthetic Given:Administered by MD - see Procedure Physician Note. Danielle Torres RN POST PROCEDURE NURSE ASSESSMENT Present along with physician during procedure exam. Danielle Torres RN Current pain intensity is 0 on a 0-10 pain scale. Danielle Torres RN AMBULATORY PATIENT EDUCATION THE FOLLOWING WAS EVALUATED Motivation To Learn: Interested Family/Significant Other Support: High - Very involved in pt care Cognitive Ability: Alert/Oriented Method of Instruction: Individual instruction Written instruction/Handouts The Following Influencing Factors Were Barriers To This Education Session: None The Following Physical Limitations Were Barriers To This Education Session: None Instruction Provided To: Patient Digital Service Engineer Present: not applicable Discipline: Nursing Learning Topic: SURVIVAL SKILLS: Complication Prevention Symptom Management Patient Evaluation: Verbalizes understanding: Yes Supplemental Material Given: Written Material Instructed By Danielle Torres RN In Department Urology . UNIVERSAL PROTOCOL / SAFETY CHECKLIST Procedure to be Performed: Cystoscopy Sign In: A Moment of CARE was completed. Appropriate PPE (Personal Protective Equipment) worn by all providers involved with the procedure. Special equipment not required. Patient/Surrogate Stated/Verified: Patient name, Date of , Relevant allergies, and The intended procedure Time Out: Relevant labs, photos, and/or imaging studies have been reviewed. Intended patient and procedure match the source document(s) (e.g. consent, H&P, associated studies [imaging, pathology]) match the intended patient and procedure. Consent obtained and matches the intended procedure. Yes. Correct side/site is not applicable. Medications required for this procedure are verified. Fire risk assessed and interventions discussed. Implants: are not applicable. Sign Out: Specimens not collected. All instruments, equipment, possible retained foreign bodies are accounted for. Yes. The post-procedure plan of care has been communicated to the patient or surrogate. [facility] NoteHNO ID: [id number] Author: ?, ?, ? Service: ? Author Type: ? Type: Progress Notes Filed: 01/24/2025 09:19 Note Text: [place] [id number] AMBULATORY PROCEDURE NOTE NAME: Bravo Arce AGE: [age] year old CLINIC #: [id number] DATE: January 17, 2025 SURGEON: Jose Garcia MD, MS PROCEDURE: Cystoscopy ANESTHESIA: Lidocaine gel per urethra DIAGNOSIS: Bladder cancer Date of Initial Diagnosis: 04/2022 Tumor Stage of Initial Diagnosis: T1 Grade at Initial Diagnosis: high. Site of First Diagnosis: Bladder Any Recurrence? N/A Intravesical Treatments: TURBT 05/17 Date of Last Cysto: 06/28/2024 Date of Last Upper Tract Imagin07/20/24 CTU INDICATION: Surveillance FINDINGS: Tumor present: No Urethra: Normal Prostate: Moderate lateral lobes Verumontanum: Open Urine cytology: Not sent PROCEDURE: After informed consent was obtained, the patient was taken to the endoscopy suite. A time out was performed where the patient and the procedure were identified in the presence of the Nursing and Surgical Staff. Patient was placed in supine position, prepped and draped in the standard sterile fashion. Lidocaine gel was placed per urethra for local anesthesia. Cystoscopy was then performed using a 17 F flexible cystoscope. Sterile technique was maintained throughout. Please refer to above for specific findings during this part of the procedure. After carefully and atraumatically inspecting the urethra, prostate, and bladder, the bladder was emptied and the cystoscope was removed. The patient tolerated the procedure well and there were no complications. ASSESSMENT/PLAN: Ordered Cipro today Cystoscopy in 1 year The patient is seen and examined by Dr. Jose Garcia and the following reflects his/her service. Scribed by Chester Brown I agree with the Chief Complaint, ROS, and Past Histories independently gathered by the clinical net application support specialist including scribe and or medical student and or SARAVANAN and or resident or fellow and the remaining scribed note accurately describes my personal service to the patient. Jose Garcia MD, MS [facility]04-24-2025 NoteHNO ID: [id number] Author: DANIELLE TORRES RN Service: ? Author Type: Registered Nurse Type: Progress Notes Filed: 01/17/2025 10:48 Note Text: Patient ID with (2) Identifiers, Verified by: Danielle Torres RN Actual procedure/procedure scheduled: Yes Performing provider/scheduled provider: Yes Patient was roomed in: Q9- 06 Web Designer Developer offered:Patient accepts, visit chaperoned by Patient arrived in the room at: 0945 Patient ready for procedure: 0956 The procedure started at ( Time Only): 1017 The procedure ended at: 1023 Was the procedure delayed: No ProNox Utilized: No The patient left the procedure room at: 1045 Danielle Torres RN PRE PROCEDURE ASSESSMENT- Cysto Latex Allergy: No Allergies reviewed and updated. Yes Pre-Procedure Vital Signs: BP: 133/84 Pulse: 70 Heart valve replacement: No Joint replacement: Yes, partial hip in 10/2024 Patient unable to swallow, antibiotic given via feeding tube Back Office UA otained: no PROCEDURE PREP-Cysto Patient Prep: Betadine Placement of Sterile Drape: COMPLETED Anesthetic Given:Administered by MD - see Procedure Physician Note. Danielle Torres RN POST PROCEDURE NURSE ASSESSMENT Present along with physician during procedure exam. Danielle Torres RN Current pain intensity is 0 on a 0-10 pain scale. Danielle Torres RN AMBULATORY PATIENT EDUCATION THE FOLLOWING WAS EVALUATED Motivation To Learn: Interested Family/Significant Other Support: High - Very involved in pt care Cognitive Ability: Alert/Oriented Method of Instruction: Individual instruction Written instruction/Handouts The Following Influencing Factors Were Barriers To This Education Session: None The Following Physical Limitations Were Barriers To This Education Session: None Instruction Provided To: Patient Digital Service Engineer Present: not applicable Discipline: Nursing Learning Topic: SURVIVAL SKILLS: Complication Prevention Symptom Management Patient Evaluation: Verbalizes understanding: Yes Supplemental Material Given: Written Material Instructed By Danielle Torres RN In Department Urology . UNIVERSAL PROTOCOL / SAFETY CHECKLIST Procedure to be Performed: Cystoscopy Sign In: A Moment of CARE was completed. Appropriate PPE (Personal Protective Equipment) worn by all providers involved with the procedure. Special equipment not required. Patient/Surrogate Stated/Verified: Patient name, Date of , Relevant allergies, and The intended procedure Time Out: Relevant labs, photos, and/or imaging studies have been reviewed. Intended patient and procedure match the source document(s) (e.g. consent, HANDP, associated studies [imaging, pathology]) match the intended patient and procedure. Consent obtained and matches the intended procedure. Yes. Correct side/site is not applicable. Medications required for this procedure are verified. Fire risk assessed and interventions discussed. Implants: are not applicable. Sign Out: Specimens not collected. All instruments, equipment, possible retained foreign bodies are accounted for. Yes. The post-procedure plan of care has been communicated to the patient or surrogate.[facility]03-27-2025 History of Present illness Narrative* Jason Villatoro, - 12/20/2024 1:00 PM EDT Gel One Injection Left knee Patient is seen and evaluated today for left knee pain and stiffness. Continued swelling and stiffness despite conservative course with ice, Tylenol, NSAID's and compression. Occasional buckle sensation. Night disruption is present and increasing. Progression of pain. Occasional assistive device required. Here today to review non-operative conservative options and discuss indications and overviewof knee arthroplasty. Physical Exam: The patient is examined in the office today. The left knee has mild aseptic swelling. Hypertrophic changes are noted. AROM is decreased with pain. Crepitance is present in multiple compartments. Tenderness is moderate to severe thru multiple compartments. Collateral ligaments are intact to stress testing at 0 and 30 degrees. Positive grind test of the patella. Gait is stiff and antalgic with occasional assistive device reported. Hip exam is stable. Negative bench and straight leg raise testing. NVM intact distally without footdrop. Calves are supple without sign of infection, ulceration or DVT. Xrays: Multiple weightbearing views (AP, Lateral and sunrise) are reviewed for the permanent PACS record. 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 No fracture, dislocation, tumor or infection seen. Images are reviewed with the patient at length. Assessment: Left knee Osteoarthritis-M17.12 Left knee pain-M25.562 Antalgic gait-R26 Treatment/Plan: The nature of the findings were discussed at length. Xray imaging and severity discussed. Conservative management with ice, heat, exercise, strengthening, weight loss, compression wrap/bracing was reviewed. Anti-inflammatory medication , if stable with GI and kidney function, was reviewed. OTC and prescription options were discussed. Tylenol dosing parameters and daily limits for breakt thru painwas reviewed. Cortisone injections can be provided up to 3 per year and no closer than a month interval. Hyaluronic acid viscosupplementation options and expectations were discussed at length. Patient is aware results are not guaranteed. We discussed the role of knee replacement surgery, indications, approach, implants, and rehab process were all reviewed. After lengthy discussion, the patient elects to move forward with viscosupplementation injection with Gel One to the left knee. Under sterile technique with the knee extended and supported, 3 ml of Gel One was injected to the left knee supra patellar pouch. Needle was removed and adequate hemostasis was achieved. The patient tolerated the injection well. Post injection restriction of 50% activity reduction the day of the injection with icing techniques 1-2 times per 10-15 minutes to the knee was reviewed. Patient was ambulatory and discharged in stable condition. Any reactions, concerns or continued pain will be reported via phone call or return visit. All questions were answered. documented in this encounterSaint [facility] [id number] Evaluation note* Type Assessment Date assessment Central retinal vein occls, righ t eye, with macular edema impression Central retinal vein occls, right eye, with macular edema: H34.8110 Right. Condition: established, worsening [facility] Physicians Work Phone: [phone] History of Present illness Narrative* Encounter Date Complaint History Of Prese nt Illness CRVO with ME The 84 year old male presents for treatment of CRVO with ME in the right eye. Patient feels that vision has declined over the last week. Patient states he is over due for his injection. Patient denies any recent floaters or flashes of light. CRVO with ME The 84 year old male presents for 10 week evaluation of CRVO with ME in the right eye. PAtient states that the vision is the same as when he was here 10 weeks ago. Patient states that he does have a flash of light now and then and they seem to last about 10 minutes. Patient denies any ocular pain. CRVO The 84 year old patient presents for evaluation of CRVO in the right eye. Patient states stable vision since last visit. Patients denies flashes of lights, floaters and ocular pain. Patient states around 10 weeks he will notice a flash of light for about 10-15 minutes then it stops. Patient is using latanoprost 1 drop in each eye once daily. CRVO The 84 year old patient presents for treatment of CRVO in the right eye. Patient reports no new visual changes or concerns since his last exam 10 weeks ago. Patient denies eye pain but occasionally experiences flashes and floaters in both eyes. CRVO with ME The 83 year old male presents for 11 week evaluation of CRVO with ME in the right eye. Patient denies any vision issues at this time. Patient denies any new floaters or flashes of light. CRVO The 83 year old patient presents for evaluation of CRVO in the right eye. Patient reports no new visual changes or concerns since his last appointment. Patient denies flashes, floaters, and eye pain. Patient complains of itchy eyes. CRVO with ME The 83 year old male presents for 10 week evaluation of CRVO with ME in the right eye. Patient denies any vision changes at this time. Patient states that on occasion he does get a flash of light but denies any floaters. CRVO The 83 year old male presents for evaluation of CRVO in the right eye. Patient reports stable vision since last visit. Patient denies flashes, floaters, and eye pain. CRVO The 83 year old male presents for treatment of CRVO in the right eye. CRVO The 82 year old male presents for evaluation of CRVO in the right eye. Patient denies eye pain, flashes and floaters. Reports no significant vision changes since last appointment. CRVO The 82 year old male presents for evaluation of CRVO in the right eye with treatment of Eylea. CRVO with ME The 82 year old male presents for 3 month evaluation. Patient states since his last visit he has been in the hospital after having triple bypass surgery. Patient was in the hospital for 20 days. Patient declines any vision issues since his last visit , but patient does say he see's a flash of light but not often. CRVO The 82 year old male presents for evaluation of CRVO in the right eye. denies new vision changes The skip muñoz denies new vision changes in the right and left eyes since last visit 10 weeks ago. CRVO The 81 year old male presents for evaluation of CRVO in the right eye. CRVO The 81 year old male presents for evaluation of CRVO in the right eye. stable vision The patient stat es stable vision in both eyes, since last visit. It affects both near and distance vision. The symptom is all of the time. The condition is unchanged. CRVO The 81 year old male presents for evaluation of CRVO in the right eye. The patient reports stable vision since last exam 11 weeks ago. The patient denies eye pain and flashes. Central Retinal Vein Occlusion T he 81 year old male presents for evaluation of Central Retinal Vein Occlusion in the right eye. Stable Vision The patient repo rts constantly Stable Vision in both eyes since last visit on 02/04/2021. Vision is unchanged. Patient denies eye pain and flashes and floaters. CRVO The 80 year old male presents for evaluation of CRVO in the right eye. The patient reports stable vision since last exam 3 months ago. The patient denies eye pain and flashes. CRVO The 80 year old male presents for evaluation of CRVO in the right eye. stable vision The patient repo rts stable vision in the right eye. It started about 3 month(s) ago. It occurs constantly. It affects both near and distance vision. CRVO The 80 year old male presents for CRVO in the right eye. EYL INJ OD. stable vision The patient repo rts stable vision in both eyes since last visit about 2 month(s) ago. It occurs constantly. It affects both near and distance vision. In addition, the condition is associated with daily activities and chores. Patient denies floaters and flashes. stable vision The patient repo rts stable vision in the right eye since last visit about 7 week(s) ago. It occurs constantly. It affects both near and distance vision. In addition, the condition is associated with daily activities and chores. patient reports intermittent flashes. Patient denies floaters. Patient reports no vision changes in the left eye. CRVO The 80 year old male presents for CRVO in the right eye. EYL INJ OD. CRVO The 80 year old male presents for evaluation of CRVO in the right eye. decreased vision The patient com plains of decreased vision in the right eye. He states in has been ongoing since his last visit 1 month(s) ago. It occurs mostly in the morning. The onset was gradual. It affects decrease in both near and distance vision. The patient notes his vision is worse in the mornings, but has never gotten back to normal since his last visit a month ago. stable vision The patient is p resent for evaluation of stable vision in the left eye. CRVO The 80 year old male presents for CRVO in the right eye. stable vision The patient repo rts stable vision in both eyes since last visit about 3 month(s) ago. It occurs constantly. It affects both near and distance vision. In addition, the condition is associated with daily activities and chores. Patient reports intermittent flashes of light in both eyes (mostly in the morning) lasting about 10 minutes. Patient denies floaters. decreased vision The patient rep orts decreased vision in the right eye since last visit about 3 month(s) ago. It occurs constantly. It affects both near and distance vision. In addition, the condition is associated with daily activities and chores. Patient reports intermittent floaters not affecting the vision. Patient denies flashes. Patient reports no vision changes in the left eye. CRVO The 79 year old male presents for CRVO in the right eye. CRVO The 79 year old male presents for evaluation of CRVO in the right eye. The patient reports stable vision since last exam 3 months ago. The patient denies eye pain and floaters. Associated symptoms include: flashes. CRVO The 79 year old male presents for evaluation of CRVO in the right eye. stable The patient stat es stable vision in both eyes. Patient denies eye pain and flashes. stable vision The patient repo rts stable vision in the left eye. Denies any new visual or ocular complaints. decrease in vision The patient r eports a decrease in vision in the right eye over the last 3-4 weeks. It occurs all the time. The onset was gradual. It affects both near and far vision. He is struggling with the [employer]n [employer] at [employer]. He states he thinks he needs another injection. He denies any new visual or ocular complaints. CRVO The 79 year old male presents for evaluation of CRVO with macula edema in the right eye. vein occlusion The 78 year old male presents for evaluation of vein occlusion in the right eye.The patient reports improved vision since last exam 2 months ago. It affects both near and far vision. The symptom is constant. In addition, the condition is associated with daily activity and chores. Patient denies eye pain and floaters Associated symptoms include: flashes. stable vision The patient repo rts stable vision in both eyes since his last visit 3-4 months ago. It occurs all the time. It affects both near and far vision. The symptom is constant. In addition, the condition is associated with daily activity and chores. Patient denies flashes and floaters. S/P Laser in the right eye on 11/28/[address] Ponce for glaucoma. Patient currently is using Lumigan in both eyes at bedtime. CRVO with macular edema The 78 y ear old male presents for evaluation of a CRVO with macular edema in the right eye. vein occlusion floaters/flashes The patient rep orts floaters/flashes in the right eye and left eye for years. The onset was gradual. Vision is not affected. The symptom is intermittent. The condition is mild. In addition, the condition is associated with daily activity and chores. decrease in vision The patient r eports a decrease in vision in the right eye. It started about 2-3 weeks ago . The onset was gradual. It affects both near and far vision. The symptom is constant. The condition is worsening. In addition,the condition is associated with daily activity and chores. Patient reports vision is worse in the morning hours. CRVO The 78 year old male presents for evaluation of a CRVO in the right eye. is unaware of any vision changes The patient is unaware of any vision changes in the left eye since last exam 1 month ago. improved vision The patient repo rts improved vision in the right eye since last exam 1 month ago. It affects both near and far vision. The symptom is constant. It occurs all the time. The condition is improving. In addition, the condition is associated with daily activity and chores. The patient denies flashes, floaters. vein occlusion The 78 year old male presents for evaluation of vein occlusion in the right eye. reports no visual changes The skip muñoz reports no visual changes in the left eye since his last visit 1 month ago. It affects both near and far vision. The symptom is constant. The condition is stable. In addition, the condition is associated with daily activity and chores. The patient denies flashes and floaters. blurry vision The patient repo rts blurry vision in the right eye. It started about 1 month ago . The onset was gradual. It affects distance vision. The symptom is intermittent. The condition is moderate. In addition, the condition is associated with daily activity and chores. The patient denies flashes, floaters. CRVO with edema The 77 year old male presents for evaluation of a CRVO with edema in the right eye. blurry vision The patient comp lains of blurry vision in the right eye. It started about 1 day ago . The onset was sudden. It affects both near and far vision. The symptom is constant. It occurs all the time. The condition is moderate. The condition is described as blurring. new blurry vision The 77 year ol d male presents for new blurry vision in the right eye. 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 Last treatment was 09/28/17. denies changes The patientf den ies changes in the right eye and left eye. It started about 10 weeks ago . The onset was gradual. It affects both near and far vision. The symptom is constant. It occurs all the time. The condition is stable. The condition is described as occasional flashes. In addition, the condition is associated with daily activity and chores. The patient denies floaters. CRVO The 77 year old male presents for evaluation of CRVO in the right eye. no change Patient denies v ision change in the left eye since his last visit. increased blurry vision Patient reports increased blurry vision in the right eye since his last visit 1 month ago. Patient notes it starts to clear up throughout the day but has been more frequent. Patient denies new flashes, floaters and eye pain. Patients last Eylea injection was 06/22/17. CRVO The 77 year old male presents for evaluation of CRVO in the right eye. stable vision The patient repo rts stable vision in the right eye x 2 months. It affects both near and far vision. . The patient denies floaters, eye pain. The patient notes that he has occasional flashes. CRVO with macular edema The 77 y ear old male presents for evaluation of CRVO with macular edema in the right eye. denies visual changes The patien t denies visual changes in both eyes since his last visit 7 weeks ago. The patient denies change in vision, eye pain, floaters. notes of more flashes The patien t notes of noticing more flashes in both eyes recently, usually notices them a couple times per week. States that they come on suddenly, last about 10 mintues and then go away. CRVO with macular edema The 77 y ear old male presents for evaluation of CRVO with macular edema in the right eye. flashes The patient repo rts flashes in the right eye and left eye for years. The onset was sudden. Vision is not affected. The symptom is intermittent. The condition is mild. In addition, the condition is associated with daily activity and chores. The patient denies floaters. increase in vision The patient r eports an increase in vision in the right eye. It started about 1 month ago . The onset was gradual. It affects both near and far vision. The symptom is constant. The condition is improving. In addition, the condition is associated with daily activity and chores. Injection only of Ey sari for a CRVO with edema The 77 year old male presents for an Injection only of Eylea for a CRVO with edema in the right eye. decreased vision The patient rep orts constant, gradual, moderate decrease in distance vision in both eyes that is worse in the morning and improves as the day progresses. Denies flashes or floaters currently but does note flashes in the past. macular edema The 77 year old male presents for evaluation of macular edema in the right eye. 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, left Impression/Plan 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 Impression/Plan Related to Centr al retinal vein occls, right eye, with macular edema Impression/Plan Related to Centr al retinal vein occls, right eye, with macular edema Impression/Plan 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, left Impression/Plan 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, moderate stage Impression/Plan 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, 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 Impression/Plan Related to Age-r elated nuclear cataract, bilateral Impression/Plan Related to Centr al retinal vein occls, right eye, with macular edema Impression/Plan Related to Centr al retinal vein occls, right eye, with macular edema Return in 10-11 week (s) with Calvin Carpio MD for IO EYL OD w/OCT 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, right eye, with macular edema 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 Impression/Plan Related to Age-r elated nuclear cataract, bilateral Impression/Plan Related to Low-t ension glaucoma, bilateral, stage unspecified Impression/Plan Related to Centr al retinal vein occls, right eye, with macular edema Impression/Plan 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 Dilate OU 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, right eye, with macular edema Impression/Plan Related to Age-r elated nuclear cataract, bilateral Impression/Plan Related to Low-t ension glaucoma, bilateral, stage unspecified Impression/Plan Related to Centr al retinal vein occls, right eye, with macular edema Return Related to Centr al retinal vein occls, right eye, with macular edema Impression/Plan Related to Centr al retinal vein occls, right eye, with macular edema Impression/Plan Related to Essen tial (primary) hypertension Impression/Plan Related to Vitre ous degeneration, bilateral Impression/Plan Related to Low-t ension glaucoma, bilateral, stage unspecified Impression/Plan Related to Age-r elated nuclear cataract, bilateral Impression/Plan Related to Centr al retinal vein occls, right eye, with macular edema Return in 13 week(s) with Kev Tabares MD for follow up, OCT, possible Eylea OD 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, right eye, with macular edema Impression/Plan Related to Low-t ension glaucoma, bilateral, stage unspecified Impression/Plan Related to Macul ar edema Impression/Plan Related to Centr al retinal vein occls, right eye, with macular edema Impression/Plan Related to Age-r elated nuclear cataract, bilateral Return in 10-12 week (s) with Kev Tabares MD for follow up, OCT, possible Eylea OD 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, right eye, with macular edema Impression/Plan Related to Age-r elated nuclear cataract, bilateral Impression/Plan Related to Macul ar edema Impression/Plan Related to Low-t ension glaucoma, bilateral, stage unspecified Impression/Plan Related to Centr al retinal vein occls, right eye, with macular edema Return in Related to Centr al retinal vein occls, right eye, with macular edema Impression/Plan 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 Impression/Plan Related to Age-r elated nuclear cataract, bilateral Impression/Plan Related to Essen tial (primary) hypertension Impression/Plan Related to Low-t ension glaucoma, bilateral, stage unspecified Impression/Plan Related to Macul ar edema Impression/Plan Related to Centr al retinal vein occls, right eye, with macular edema Return in Related to Centr al retinal vein occls, right eye, with macular edema Impression/Plan Related to Macul ar edema Impression/Plan Related to Essen tial (primary) hypertension Impression/Plan Related to Age-r elated nuclear cataract, bilateral Impression/Plan 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 Impression/Plan Related to Low-t ension glaucoma, bilateral, stage unspecified Impression/Plan Related to Centr al retinal vein occls, right eye, with macular edema Return in 3 months w ann marie Tabares MD for follow up, OCT, possible Eylea OD 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, right eye, with macular edema Impression/Plan Related to Age-r elated nuclear cataract, bilateral Impression/Plan 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 Impression/Plan Related to Low-t ension glaucoma, bilateral, stage unspecified Impression/Plan Related to Essen tial (primary) hypertension Impression/Plan Related to Centr al retinal vein occls, right eye, with macular edema Return in 5 week(s) with Kev Tabares MD for follow up exam and OCT, possible Eylea 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, right eye, with macular edema Impression/Plan Related to Centr al retinal vein occls, right eye, with macular edema Impression/Plan 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 Impression/Plan Related to Low-t ension glaucoma, bilateral, stage unspecified Impression/Plan Related to Age-r elated nuclear cataract, bilateral Return in 6-8 week(s ) with Kev Tabares MD for follow up exam and OCT, poss Eylea OD 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, right eye, with macular edema Impression/Plan Related to Essen tial (primary) hypertension Impression/Plan Related to Centr al retinal vein occls, right eye, with macular edema Impression/Plan Related to Age-r elated nuclear cataract, bilateral Impression/Plan Related to Low-t ension glaucoma, bilateral, stage unspecified Impression/Plan 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, bilateral, stage unspecified Impression/Plan Related to Centr al retinal vein occls, right eye, with macular edema Return in 3 months w ann marie Tabares MD for follow up exam and OCT, poss Eylea OD 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, right eye, with macular edema - 3 Months-Kev rojas MD for eval/OCT, poss Eylea OD Impression/Plan Related to Centr al retinal vein occls, right eye, with macular edema Return in 3 months w ann marie Tabares MD for follow up, OCT, possible Eylea OD 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, right eye, with macular edema Impression/Plan Related to Centr al retinal vein occls, right eye, with macular edema Impression/Plan 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 Impression/Plan Related to Age-r elated nuclear cataract, bilateral Impression/Plan Related to Low-t ension glaucoma, bilateral, stage unspecified Impression/Plan Related to Essen tial (primary) hypertension Return in 3 months w ann marie Tabares MD for follow up, OCT, possible Eylea OD 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 Tabares for FU/OCT/possible EYLEA OD. 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 Tabares for follow up exam and OCT. The need for additional Eylea OD will be determined at that time. 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 Tabares for FU/OCT/possible EYL OD. 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 Tabares for FU/OCT/possible EYLEA. 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 Tabares for follow up exam with OCT and possible Eylea OD. 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 Vision limiting factor - will monitor. 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 Patient reports being significantly symptomatic. Continued antiVEGF treatment was recommended to reduce the macular edema and hopefully improve vision. Risks, benefits, and alternatives were reviewed. The patient chose to continue treatment and received an intravitreal injection of Eylea today. The patient tolerated the procedure well and has been instructed to call immediately with severe pain, non-watery discharge or visual changes. The ocular and systemic benefits of blood pressure control were rediscussed as well as follow up compliance from a retinal standpoint and with the PCP. 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 Tabares for follow up exam with OCT and possible Eylea OD. 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, right eye, with macular edema Impression/Plan - Re gular follow up appointments with the patient's comprehensive eye doctor were recommended to monitor the patients cataract for progression. Referral for surgical intervention is not indicated at this time. Related to Age-related nuclear cataract, bilateral Impression/Plan - Po sterior vitreous detachment was noted on examination today and explained to the patient. There is no evidence of a retinal tear, break or detachment. Patient instructed to call the office immediately if any symptoms noted. Related to Vitreous degeneration, bilateral Impression/Plan - Th e importance of blood pressure control was discussed today. The patient was advised of both ocular and systemic benefits of blood pressure control. They were advised to maintain close follow up with PCP to monitor BP status and immediate follow up if BP readings are greater than 140/90. Related to Essential (primary) hypertension Return in [address] Tabares for follow up exam and OCT. Related to Central retinal vein occlusion, right eye, stable Impression/Plan - RI GHT: Patient was advised to use TobraDex qd as needed to help relieve allergic response. Related to Other chronic allergic conjunctivitis Impression/Plan - Ce ntral Retinal Vein Occlusion with resolved macular edema s/p Eylea 02-15-18 was noted on examination today and discussed with the patient. No additional treatment is indicated today; will monitor closely. The ocular and systemic benefits of blood pressure control were rediscussed as well as follow up compliance from a retinal standpoint and with the PCP. Appropriate follow up with primary eye medical care evaluation specialist was recommended. Patient was advised to call with any changes in vision prior to next appointment. Related to Central retinal vein occlusion, right eye, stable Follow up - Return i n [address] Tabares for follow up exam and OCT. Related to Central retinal vein occlusion, right eye, stable Impression/Plan - Th e importance of blood pressure control was discussed today. The patient was advised of both ocular and systemic benefits of blood pressure control. They were advised to maintain close follow up with PCP to monitor BP status and immediate follow up if BP readings are greater than 140/90. Related to Essential (primary) hypertension Impression/Plan - Re gular follow up appointments with the patient's comprehensive eye doctor were recommended to monitor the patients cataract for progression. Referral for surgical intervention is not indicated at this time. Related to Age-related nuclear cataract, bilateral Impression/Plan - Th ere is no evidence of a retinal tear, break or detachment. 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 Vision limiting factor - will monitor. 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 Related to Central retinal vein occlusion, right eye, with macular edema Return in [address] Tabares for follow up exam and OCT. The need for additional Eylea OD will be determined at that time. 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, right eye, with macular edema Impression/Plan - Re gular follow up appointments with the patient's comprehensive eye doctor were recommended to monitor the patients cataract for progression. Referral for surgical intervention is not indicated at this time. Related to Age-related nuclear cataract, bilateral Impression/Plan - Po sterior vitreous detachment was noted on examination today and explained to the patient. There is no evidence of a retinal tear, break or detachment. Patient instructed to call the office immediately if any symptoms noted. 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 Vision limiting factor - will monitor. 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 Vision remains good and stable; no additional anti-VEGF treatment was recommended at this time. The risk of worsening edema was discussed, and the patient was advised to call with any changes prior to their next scheduled appointment. The ocular and systemic benefits of blood pressure control were also discussed as well as follow up compliance from a retinal standpoint and with the PCP. 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, right eye, with macular edema Follow up - Return i n [address] Tabares for follow up exam and OCT. The need for additional Eylea OD will be determined at that time. 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, right eye, with macular edema Impression/Plan - RI GHT: Patient reports intermittent blurring right eye when sitting outside to read. Recommend TobraDex tid OD to help relieve allergic response. E-prescribed today. Related to Other chronic allergic conjunctivitis Keep 03/08 appointmen t for follow up and OCT. 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 No additional anti-VEGF treatment was recommended at this time. 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 The risk of recurrent edema was discussed, and the patient was advised to call with any changes prior to their next scheduled appointment. The ocular and systemic benefits of blood pressure control were also discussed as well as follow up compliance from a retinal standpoint and with the PCP. Appropriate follow up with primary eye medical care evaluation specialist was recommended. 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 Referral for surgical intervention is not indicated at this time. Related to Age-related nuclear cataract, bilateral Impression/Plan - Po sterior vitreous detachment was noted on examination today and explained to the patient. There is no evidence of a retinal tear, break or detachment. Patient instructed to call the office immediately if any symptoms noted. 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 Vision limiting factor - will monitor. 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 Tabares for follow up exam and OCT. The need for additional Eylea OD will be determined at that time. 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 Referral for surgical intervention is not indicated at this time. Related to Age-related nuclear cataract, bilateral Impression/Plan - Po sterior vitreous detachment was noted on examination today and explained to the patient. There is no evidence of a retinal tear, break or detachment. Patient instructed to call the office immediately if any symptoms noted. 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 No additional anti-VEGF treatment was recommended at this time. The risk of recurrent edema was discussed, and the patient was advised to call with any changes prior to their next scheduled appointment. The ocular and systemic benefits of blood pressure control were also discussed as well as follow up compliance from a retinal standpoint and with the PCP. Appropriate follow up with primary eye medical care evaluation specialist was recommended. 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 Vision limiting factor - will monitor. 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 Tabares for follow up exam and OCT. The need for additional Eylea OD will be determined at that time. 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 Tabares for follow up exam with OCT and possible Eylea OD. 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, right eye, with macular edema Impression/Plan - Re gular follow up appointments with the patient's comprehensive eye doctor were recommended to monitor the patients cataract for progression. Referral for surgical intervention is not indicated at this time. 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 Vision limiting factor - will monitor. 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 See plan #1. Related to Retinal hemorrhage, right eye Impression/Plan - RI GHT: Central Retinal Vein Occlusion with mild, recurrent macular edema was noted on examination today and explained to the patient. Continued antiVEGF treatment was recommended to reduce the macular edema and hopefully improve vision. Risks, benefits, and alternatives were reviewed. The patient chose to continue treatment and received an intravitreal injection of Eylea today. The patient tolerated the procedure well and has been instructed to call immediately with severe pain, non-watery discharge or visual changes. The ocular and systemic benefits of blood pressure control were rediscussed as well as follow up compliance from a retinal standpoint and with the PCP. Appropriate follow up with primary eye medical care evaluation specialist was recommended. 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, right eye, with macular edema Follow up - Return i n 10-[address] Tabares for follow up exam with OCT and possible Eylea OD. 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, right eye, with macular edema Return in [address] Tabares for follow up exam and OCT. Related to Central retinal vein occlusion, right eye, stable Impression/Plan - Re gular follow up appointments with the patient's comprehensive eye doctor were recommended to monitor the patients cataract for progression. Referral for surgical intervention is not indicated at this time. 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 Vision limiting factor - will monitor. 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 R elated to Retinal hemorrhage, right eye Impression/Plan - Ce ntral Retinal Vein Occlusion with resolved macular edema was noted on examination today. The patient has responded well to anti-VEGF treatments(EYLEA); no additional treatment is indicated today. The ocular and systemic benefits of blood pressure control were rediscussed as well as follow up compliance from a retinal standpoint and with the PCP. Appropriate follow up with primary eye medical care evaluation specialist was recommended. Related to Central retinal vein occlusion, right eye, stable Follow up - Return i n [address] Tabares for follow up exam and OCT. Related to Central retinal vein occlusion, right eye, stable Return in 10-[address] Tabares for follow up exam with OCT and possible Eylea OD. 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, right eye, with macular edema Follow up - Return i n 10-[address] Tabares for follow up exam with OCT and possible Eylea OD. 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, right eye, with macular edema Impression/Plan - Re gular follow up appointments with the patient's comprehensive eye doctor were recommended to monitor the patients cataract for progression. Referral for surgical intervention is not indicated at this time. 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 Vision limiting factor - will monitor. 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 See plan #1. Related to Retinal hemorrhage, right eye Impression/Plan - RI GHT: * Central Retinal Vein Occlusion with resolving macular edema was noted on examination today and explained to the patient. Continued antiVEGF treatment was recommended to reduce the macular edema and hopefully improve vision. Risks, benefits, and alternatives were reviewed. Due to his recent improvement, we will increase the dosing interval to 10-12 weeks. The patient chose to continue treatment and received an intravitreal injection of Eylea today. The patient tolerated the procedure well and has been instructed to call immediately with severe pain, non-watery discharge or visual changes. The ocular and systemic benefits of blood pressure control were rediscussed as well as follow up compliance from a retinal standpoint and with the PCP. 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, right eye, with macular edema - 6 wks for INJ EYL OD w/OCT Rel ated to Central retinal vein occlusion, right eye, with macular edema Return in [address] Tabares for INJ EYL OD w/OCT. Dilate OD only. 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, right eye, with macular edema Impression/Plan - Se condary to CRVO - will treat with Eylea and continue to monitor. See plan #1. 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 Vision limiting factor - will monitor. 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 Tabares for INJ EYL OD w/OCT. Dilate OD only. 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, right eye, with macular edema Impression/Plan - Re gular follow up appointments with the patient's comprehensive eye doctor were recommended to monitor the patients cataract for progression. Referral for surgical intervention is not indicated at this time. Related to Age-related nuclear cataract, bilateral Impression/Plan - Po sterior vitreous detachment was noted on examination today and explained to the patient. There is no evidence of a retinal tear, break or detachment. Patient instructed to call the office immediately if any symptoms noted. Related to Vitreous degeneration, bilateral Impression/Plan - RI GHT: Central Retinal Vein Occlusion with macular edema was noted on examination today and explained to the patient. Initial antiVEGF treatment was recommended to reduce the macular edema and hopefully improve vision. Risks, benefits, and alternatives were discussed. The patient chose to proceed with treatment and received an intravitreal injection of Eylea today. The patient tolerated the procedure well and has been instructed to call immediately with severe pain, non-watery discharge or visual changes. The ocular and systemic benefits of blood pressure control were discussed as well as follow up compliance from a retinal standpoint and with the PCP. Appropriate follow up with primary eye medical care evaluation specialist was recommended. Educational materials: Venous Occlusions 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, right eye, with macular edema [facility] Work Phone: [phone] [place] [id number] Palliative Care Progress Note Signed Patient: Bravo Arce MR#: [id number] : 1940 Acct:[id number] Age/Sex: 84 / M Adm Date: 5 Loc: Room: [address] [place] [address] Type: ADM IN Attending Dr: Jorge Clifton MD Copies to: ~ Date of Service: 11/30/2024 Subjective Subjective HPI: Mr Arce has a history of of chronic A-fib s/p left atrial appendage ligationin May 2022, on Plavix for CAD s/p CABG x 3 vessels, mitral regurg s/p repair, sick sinus syndrome s/p pacemaker placement, BPH with LUTS, GERD and history of skin cancer with neck dissection in 2017 who presentedto the ER on 11/10 with left hip pain for the previous 3 weeks. Patient did have a significant fall with possible syncope at the time when pain started. Of note, after initial fall, he did present to outside ER with unresponsiveness, acute hematuria, and developed acute respiratory failure. He was intubated, admitted to ICU, placed on continuous bladder irrigation, and required Levophed. Evaluatedby neurology. EEE was negative. He did stabilize and was successfully extubated. He transferred to regular floor but developed metabolicencephalopathy. Became hypoxic, noted to have ventricular tachycardia, and required re-intubation. Transferred back to ICU and started on amiodarone drip.At this point, he was transferred to [place] to [facility]. He again was able to improve, extubated safely. Does have history of dysphagia but was noted worse after requiring intubation twice. PEG tube was being considered buthe was discharged to SNF for therapy. Discussions regarding PEG tube were continued while at SNF but fortunately, he was able to maintain nutritional nees. While at rehab, tootie jose was having difficulty standing from seated position related to hip pain, prompting xray. He had outpatient xray performed at skilled facility showing acute subcapital femoral neck fractureand was sent to the ER on 11/10. In the ER, his vitals were stable. Labs unremarkable. Chest x-ray was negative for acute pathologybut did show some cardiomegaly. Orthopedics was consulted, updated pelvis and femur xrays showing Displaced subcapital hip fracture on the left. The right hip arthroplasty and acetabular fixation hardware. There lumbar and SI joint degenerative changes . Recommended admission with plans for surgery. He was admitted for left hip fracture. Cardiology was consulted forpre-operative CV risk assessment given patient's cardiac history. Patient was felt to be optimized and cleared for surgery. Patient had open treatment of femoral neck fracture with prosthetic replacement performed on 11/12. No complications from surgery. However, patient developed worsening dysphagia during hospitalization. Completed MBS on 11/14 with significant dysphagia, with ST recommending NPO. General surgery was consulted and recommended PEG placement. Surgery with PEg placement was performed on 11/16 without complication. Patient remained stable throughout hospitalization. Was evaluated by PMR and recommended inpatient rehab. he was transferred up to inpatient rehab on 11/19. Patient has made progress with therapy regarding mobility and ability to complete his ADLs/IADLS. unfortunately, his dysphagia has persisted. He had an updated MBS performed on11/26 showing min oral and mod-severe pharyngeal phase dysphagia. Aspiration/penetration observed following thin and nectar thick liquids by spoon, with penetration noted w/ honey thick and puree consistencies. Postural changes and strategies did not improve airway protection. Pt w/ only intermittent sensation of penetration/aspiration. Significant laryngeal and vallecular residuals remained post swallow. Speech recommendation of NPO with utilizatino of PEG for meds and nutrition. He does seem to be tolerating tube feeds withoutissue. Patient has expressed frustration with prolonged hospitalization and swallowing concerns. Palliative care has been consulted to assist with goals of care. Patient sitting in chair. Patient's Smitha is at bedside. Patient states overall he is doingokay. His pain is doing well. Denies pain when he is at rest. Does become slightly sore with any activity. Physical therapy is going well. He denies shortness of breath at rest. Was previously wearing oxygen during hospitalization but is no longer requiring it. States he is doingokay without it. Does have some exertional dyspnea but states it is similar to how he feels when he is at home. He denies any chest pain. He did have an episode of nausea the other day. Denies any further episodes or vomiting. Feels like he is tolerating tube feeds without issues. Denies dizziness or lightheadedness. S tates he is sleeping okay off-and-on but the bed is uncomfortable. notes he has napped throughout the day at times. Patient expresses being frustrated by being in the hospital for so long. He istypically a very active patrizia and being limited in his mobility has been very difficult. He is also very frustrated with his limited diet and speech recommendations. Patient lives in [place]. He is originally from there and has lived there his whole life. He is to his Smitha. They have been together for 25years. They were introduced by Bravo's daughter. He has have 2 children boy and a girl. Smitha also has 2 children. Some of their children live nearby. They have a close relationship with their family. They have 5 grandkids and 2 great grandkids. Patient is Shinto and has a strong tres. His Smitha is Taoist. She states his tres is one of the things attracted her to him. Because they are different religions, they alternategoing to each other's episcopalian. He attends [employer] [employer] while she attends [employer]. 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 Patient enjoys classic cars and attending car shoes. He has 3 classic cars that he has built in his garage. heshares this hobby with his son. His favorite cars are [employer]. He also enjoys buildingengines. States in the past, he enjoyed drag racing cars. 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 Smitha states they are both very active [facility] and have been on committees to support the town. He also enjoys lawncare and gardening. Sean states he has had swallowing issues for a very long time, even before his neck dissection in 2018. States both of his kids have similar swallowing concerns. Patient states he may never gain significant swallowing back. Discussed tube feeding vs comfort care measures with pleasure feeding. Reviewed that he is tolerating tube feedings, gaining weight, doing well with PT. Patient feels frustrated by speech therapy and want to make sure they are not keeping him NPO for marginal reasons. Reviewed MBS showing moderate to severe dysphagia as well as silent aspiration. Encouraged that he may improve with continued therapy at home. Also discussed he may improve to eat soft foods but need tube feeding for nutritional support. Patient states he eats to live but not live to eat and has always been that way. He feels he can live off tube feedings if he is still able to have a good quality of life. Reviewed because he is bolus feeding, he should be able to live a normal life with tube feedings. Stated he will be able to live off tube feeding up to a certain point. Reviewed that he is the only one who can decide what that limit is. Reviewed comfort care measures with pleasure feeding if he no longer wanted to just tube feed or stop working with therapies. He currently does not feel that he is ready to stop aggressive care. HPHU is his Smitha. not currently on file but encouraged to bring paperwork to confidential secretary desk to upload into chart. Also reviewed resuscitation preferences. Patient confirms his decision of DNRCCA without intubation. 11/28 Patient sitting in chair. and sister in law at bedside. Patient has no major concerns today. States he feels good overall and seems to be in better spirits today. Worked with PT this morning andit went well. Continues to havedifficulty sleeping at night but hopes going home will improve this.He continues to feel frustrated with not being able to eat. He is thankful he as an alternative nutritional support with the tube feedings though. He is hopefulthat with continued therapy at home, his swallowing will continue to improve. Encouragement provided. 11/30 Patient sitting up in chair. at bedside. States he is doing good. Plan for discharge home today. states he has been more upbeat the last two days. Denies pain. Continues to work with therapies. Tolerating tube feeds. No major concerns. Exam Physical Exam Vital Signs: Temp Pulse Resp BP Pulse Ox O2 Del Method O2 Flow Rate 98 F 89 14 107/72 97 Room Air 1 11/30/24 06:27 11/30/24 06:27 11/30/24 06:27 11/30/24 06:27 11/30/24 06:27 11/30/24 06:27 11/23/24 00:00 FiO2 97 11/22/24 02:18 Const General: comfortable, frail appearing and not ill appearing Nutritional Appearance: average body habitus and thin Orientation: alert, awake and oriented x3 Limitations: mental status not altered HEENT Ears: hearing grossly normal bilaterally Nose: external nose normal Mouth: oral mucosae normal Teeth and gingiva: dentition normal Eyes Pupils: PERRL EOM: EOM intact bilaterally Resp Effort & Inspection: normal respiratory effort and not tachypneic Auscultation: clear to auscultation bilaterally, no rales, no rhonchi and no wheezes Cardio Rate: regular rate Rhythm: regular rhythm Heart Sounds: S1 normal and S2 normal GI Palpation: soft, not firm and no guarding Skin General: no rashes or lesions noted Neuro General: patient alert, patient awake and moves all extremities Cranial Nerves: CN's II-XII intact bilaterally Cognition: normal cognition Speech: speech normal Extrem General: no edema Psych Appearance: grossly normal Mood: congruent mood Affect: normal affect Attitude: cooperative Thought Process: normal Thought Content: normal Insight: insight good Judgment: judgment good Objective Labs 11/29/24 04:42 11/29/24 04:42 Labs: Laboratory Results - last 24 hr 11/29/24 11/29/24 11/30/24 11:44 18:15 00:07 POC Glucose 87 120 124 POC Glucose Comment Glu2: cleaned meter Glu2: cleaned meter 11/30/24 06:31 POC Glucose 108 POC Glucose Comment Assessment/Plan Assessment/Plan (1) Counseling regarding advance care planning and goals of care: Code(s): Z71.89 - Other specified counseling (2) Impaired mobility and activities of daily living: Code(s): Z74.09 - Other reduced mobility; Z78.9 - Other specified health status (3) Closed displaced fracture of left femoral neck: Code(s): S72.002A - Fracture of unspecified part of neck of left femur, initial encounterfor closed fracture (4) Dysphagia: Qualifiers: Dysphagia type: unspecified Qualified Code(s): R13.10 - Dysphagia, unspecified Code(s): R13.10 - Dysphagia, unspecified Plan Spent 10minutes with patient and spouse. updated on current condition and overall plan of care. Encouragement provided to patient. At this time, he would like to continue with tube feedings and aggressive care. Active listeningand support provided. All questions and concerns addressed. Code status confirmed DNRCCA without intubation. PINEDA Chopra, patient's . Discharginghome today. Will continue to follow for support. Documented By: Nica Martinez DO 11/30/24 1053 Signed By: 11/30/24 1057 [facility]03-07-2025 Progress note Author Jorge Clifton [facility] Note Date/Time November 30, 2024 6:[address] [facility] [address] [place], [place] [id number] Physiatry(Rehab) Progress Note Signed Patient: Bravo Arce MR#: [id number] : 1940 Acct:[id number] Age/Sex: 84 / M Adm Date: 5 Loc: Room: 2V9921-1 Type: ADM IN Attending Dr: Jorge Clifton MD Copies to: ~ Date of Service: 11/29/2024 Subjective Subjective Narrative: Mr. Arce is a 84 year old male with past medical history of chronic A-fib s/p left atrial appendage ligation in May 2022, on Plavix for CAD s/p CABGx 3 vessels, mitral regurg s/p repair, permanent afib with sick sinus syndrome s/p pacemaker placement, parathyroid gland neoplasm s/p treatment in remission, BPH with LUTS, GERD who presents with multifactorial functional decline in the setting of left femoral neck fracture s/p femoral neck repair. He recently had a prolonged hospitalization. He presented to [facility] about 3 weeks ago after his witnessed an episode where he went blank and froze . She witnessed the event and lowered him to the floor per her report. He was intubated on the ambulance ride to [facility]. He was extubated after 48 hours. She tells me he was worked up for stroke or seizure, and was transferred to [facility] at family request after having a bad reaction to Geodon prompting reintubation. He was again subsequently extubated at after 2-3 days. She says the doctors at told her they did not have any answer as to the initial episode prompting his presentation to [facility]. She tells me that he has had 4 or 5 of these episodes over the past 20 years. He was unable to have an MRI due to incompatible pacemaker. [facility] to detention facility where hehad persistent hip pain. reports no trauma, but notes he has been having nagging hip pain since July. She reports urging the detention facility to do an x- ray which demonstrated right femoral neck fracture. He is now s/p femoral neck repair. He is also s/p PEG placement due to dysphagia Interval history: Patient seen today. Sitting up in WC. He appears in no distress. Denies chest pain, SOB, fever, chills. DC tomorrow. Patient has no major concerns. Review of Systems Review of Systems All other systems reviewed & are negative unless noted below or in HPI Exam Physical Exam Vital Signs: Temp Pulse Resp BP Pulse Ox O2 Del Method O2 Flow Rate 98 F 89 14 107/72 97 Room Air 1 11/30/24 06:27 11/30/24 06:27 11/30/24 06:27 11/30/24 06:27 11/30/24 06:27 11/30/24 06:27 11/23/24 00:00 FiO2 97 11/22/24 02:18 Narrative: Pleasant NAD Extremities well perfused No respiratory distress PEG tube in place. Abdomen soft, non distended Left lower extremity limited by pain. Otherwise moving all limbs spontaneously Minimal edema Objective Labs 11/29/24 04:42 11/29/24 04:42 Labs: Laboratory Results - last 24 hr 11/29/24 11/29/24 11/30/24 11:44 18:15 00:07 POC Glucose 87 120 124 POC Glucose Comment Glu2: cleaned meter Glu2: cleaned meter 11/30/24 06:31 POC Glucose 108 POC Glucose Comment Medications and Allergies Allergies and Active Meds: Allergies gabapentin Allergy (Unknown, Verified 11/10/24 19:15) Unknown Reaction penicillin V Allergy (Unknown, Verified 11/10/24 19:15) Unknown Reaction Penicillins Allergy (Unknown, Verified 11/10/24 19:15) Unknown Reaction haloperidol (From Haldol) Allergy (Verified 11/10/24 19:15) HYPOXIA lorazepam (From Ativan) Allergy (Verified 11/10/24 19:15) HYPOXIA ziprasidone (From Geodon) Allergy (Verified 11/10/24 19:15) HYPOXIC Active Medications Generic Name Dose Route Start Last Admin Trade Name Freq PRN Reason Stop Dose Admin Acetaminophen 650 mg 11/24/24 18:00 11/30/24 06:33 Acetaminophen 650 Mg/20.3 Ml Oral.Susp PEG 11/24/25 17:59 Not Given Q6H JIM Al Hydrox/Mg Hydrox/Simethicone 30 ml 11/18/24 20:47 Mag Hydrox/Al Hydrox/Simeth 30 Ml Udc PEG 11/18/25 13:58 Q4H PRN Indigestion Atorvastatin Calcium 20 mg 11/18/24 21:00 11/29/24 20:44 Atorvastatin 20 Mg Tablet PEG 11/18/25 20:59 20 mg QPM JIM Administration Bisacodyl 10 mg 11/18/24 13:59 Bisacodyl 10 Mg Supp.Rect MT 11/18/25 13:58 DAILY PRN Constipation Clopidogrel Bisulfate 75 mg 11/19/24 09:00 11/29/24 08:10 Clopidogrel Bisulfate 75 Mg Tablet PEG 11/19/25 08:59 75 mg DAILY JIM Administration Docusate Sodium 283 mg 11/18/24 13:59 Docusate Enema 283 Mg/5 Ml Enema MT 11/18/25 13:58 DAILY PRN Constipation Docusate Sodium 100 mg 11/18/24 22:48 Docusate Liquid 100 Mg/10 Ml Udc PEG 11/18/25 20:59 BID PRN constipation Enoxaparin Sodium 40 mg 11/20/24 10:00 11/29/24 09:29 Enoxaparin 40 Mg/0.4 Ml Syringe SUBCUT 11/20/25 09:59 Not Given DAILY@1000 [facility] Finasteride 5 mg 11/19/24 09:00 11/29/24 08:15 Finasteride 5 Mg Tablet PEG 11/19/25 08:59 5 mg DAILY JIM Administration Guaifenesin 10 ml 11/18/24 13:57 11/20/24 19:46 Guaifenesin Syrup 10 Ml Udc PEG 11/18/25 13:56 10 ml Q4HR PRN Administration congestion Lactulose 30 gm 11/18/24 20:47 Lactulose 20 Gm/30 Ml Udc PEG 11/18/25 13:58 DAILY PRN Constipation Latanoprost 1 drops 11/18/24 22:00 11/30/24 00:07 Latanoprost 0.005% Op Soln 50 Drops/2.5 Ml Bottle EYE-BOTH 11/18/25 21:59 Not Given QHS [facility] Lidocaine 1 patch 11/18/24 13:57 Lidocaine 4% Adh..Patch TOPICAL 11/18/25 13:56 Q12HR PRN pain Melatonin 10 mg 11/21/24 22:00 11/30/24 00:08 Melatonin 5 Mg Tablet PEG 11/21/25 21:59 Not Given QHS JIM Metoprolol Tartrate 50 mg 11/18/24 21:00 11/29/24 20:44 Metoprolol Tartrate 50 Mg Tablet PEG 11/18/25 20:59 50 mg BID JIM Administration Polyethylene Glycol 17 gm 11/25/24 18:00 Polyethylene Glycol 3350 17 Gm Powd.Pack PEG 11/19/25 08:59 DAILY PRN Congestion Sennosides 17.2 mg 11/19/24 12:00 Sennosides 8.6 Mg Tablet PEG 11/19/25 11:59 DAILY@12 PRN If no BM in 2 days Sennosides 8.8 mg 11/18/24 22:00 11/30/24 00:08 Sennosides Syrup 8.8 Mg/5 Ml Udc PEG 11/18/25 21:59 Not Given QHS JIM Sodium Chloride 0 ml 11/18/24 13:59 Sodium Chloride 0.9 % 10 Ml Syringe IV-PUSH 11/18/25 13:58 PRN PRN Flush Trazodone HCl 50 mg 11/28/24 12:36 11/29/24 20:44 Trazodone 50 Mg Tablet PEG 11/28/25 12:35 50 mg QHS PRN Administration Insomnia Assessment/Plan Assessment/Plan (1) Closed displaced fracture of left femoral neck: (2) Dysphagia: Qualifiers: Dysphagia type: unspecified Qualified Code(s): R13.10 - Dysphagia, unspecified (3) Permanent atrial fibrillation: (4) Sick sinus syndrome: (5) S/P CABG x 3: (6) Mild left ventricular systolic dysfunction: (7) Status post placement of cardiac pacemaker: (8) Severe protein-calorie malnutrition: (9) Impaired mobility and activities of daily living: Plan This is a 84-year-old male who [facility]actorial functional decline in the setting of left femoral neck fracture s/p repair. He has continued impaired mobility and impaired independence with ADLs and IADLs requiring PT/OT/RELATIONSHIP ASSOCIATE 5-7 days/week 3 hours/day to maximize safety and independence with functional ability and self-care. -PT to improve patient's strength, endurance, bed mobility, transfers (sit- stand), standing balance, gait quality on level surfaces and stairs, coordination and functional ADL skills. We will also work to improve patient's safety awareness during transfers and ambulation. -OT for basic ADL retraining (bathing, dressing, toileting, continence, grooming, feeding, transferring), to increase activity tolerance and functional mobility to evaluate for adaptive assistive device. We will work to improve patient's endurance and educate patient on fall prevention and energy conservation techniques-pacing strategies and proper breathing techniques duringfunctional tasks. -Patient education -Pressure ulcer prophylaxis; encourage mobilization, frequent postural changes, pressure-relief techniques -DVT prophylaxis -Encourage deep breathing exercise incentive spirometry. -Monitor bladder. Toileting schedule. Continue current bladder management, with scans as needed and CIC if needed. Start bowel care program every day to obtain continence, prevent ileus. -Maintain fall precautions -Gait and balance retraining -Provision of the necessary gait aids and functional adaptive equipment to enhance the patient's a functional voodoo -Encourage deep breathing exercises and incentive spirometry -RD evaluation -Ensure adequate nutrition and hydration -Discharge planning. #. UPDATES -Okay to start PEG tube training with in preparation for discharge. -Continue ST as ordered. -Recheck basic labs tomorrow morning. -Continue current management -Watch pressure ulcer. -Continue PT/OT/ST as ordered -Hospitalist to assist with management of comorbid medical conditions #. Pain control: Tylenol scheduled #. Bowel and bladder: Continent of Bowel/bladder #. Skin: (pressure ulcer/surgical site) Pressure ulcer prophylaxis; encourage mobilization, frequent postural changes, pressure-relief techniques. OK to add Ventress salve. Can also use donut cushion when up in wheelchair if this is more comfortable #. Sleep: Optimize sleep/wake cycle DVT prophylaxis: Lovenox 40 mg daily Functional status: Impaired. Limited by pain, weakness Discharge planning: ELOS 1-2 weeks Advance care planning discussed with patient. Patient would like to be made DNR- CCA without intubation. Order placed. I spent 25 minutes for services, including [id number] encounter with the patient, discussion of the case, plan of care, and exam; and [id number] activities, such as reviewing pertinent product consultant documentation, recent therapynotes, laboratory and radiology studies, and discussion of case with care team including physician, nursing, case planner, and therapists. More than 50 % of time was spent on patient/family counseling or coordination ofcare. Documented By: Jorge Clifton MD [id number] Signed By: <Electronically signed by Jorge Clifton MD> 11/30/24 0716 [facility] Work Phone: [phone] 504-870503-07-2025 [place] [address] Physiatry(Rehab) Progress Note Signed Patient: Bravo Arce MR#: [id number] : 1940 Acct:[id number] Age/Sex: 84 / M Adm Date: 5 Loc: Room: [address] [place] [address] Type: ADM IN Attending Dr: Jorge Clifton MD Copies to: ~ Date of Service: 11/29/2024 Subjective Subjective Narrative: Mr. Arce is a 84 year old male with past medical history of chronic A-fib s/p left atrial appendage ligation in May 2022, on Plavix for CAD s/p CABGx 3 vessels, mitral regurg s/p repair, permanent afib with sick sinus syndrome s/p pacemaker placement, parathyroid gland neoplasm s/p treatment in remission, BPH with LUTS, GERD who presents with multifactorial functional decline in the setting of left femoral neck fracture s/p femoral neck repair. He recently had a prolonged hospitalization. He presented to [facility] about 3 weeks ago after his witnessed an episode where he went blank and froze . She witnessed the event and lowered him to the floor per her report. He was intubated on the ambulance ride to [facility]. He was extubated after 48 hours. She tells me he was worked up for stroke or seizure, and was transferred to [facility] at family request after having a bad reaction to Geodon prompting reintubation. He was again subsequently extubated at after 2-3 days. She says the doctors at told her they did not have any answer as to the initial episode prompting his presentation to [facility]. She tells me that he has had 4 or 5 of these episodes over the past 20 years. He was unable to have an MRI due to incompatible pacemaker. He was discharged from [facility] to detention facility where hehad persistent hip pain. reports no trauma, but notes he has been having nagging hip pain since July. She reports urging the detention facility to do an x-ray which demonstrated right femoral neck fracture. He is now s/p femoral neck repair. He is also s/p PEG placement due to dysphagia Interval history: Patient seen today. Sitting up in WC. He appears in no distress. Denies chest pain, SOB, fever, chills. DC tomorrow. Patient has no major concerns. Review of Systems Review of Systems All other systems reviewed & are negative unless noted below or in HPI Exam Physical Exam Vital Signs: Temp Pulse Resp BP Pulse Ox O2 Del Method O2 Flow Rate 98 F 89 14 107/72 97 Room Air 1 11/30/24 06:27 11/30/24 06:27 11/30/24 06:27 11/30/24 06:27 11/30/24 06:27 11/30/24 06:27 11/23/24 00:00 FiO2 97 11/22/24 02:18 Narrative: Pleasant NAD Extremities well perfused No respiratory distress PEG tube in place. Abdomen soft, non distended Left lower extremity limited by pain. Otherwise moving all limbs spontaneously Minimal edema Objective Labs 11/29/24 04:42 11/29/24 04:42 Labs: Laboratory Results - last 24 hr 11/29/24 11/29/24 11/30/24 11:44 18:15 00:07 POC Glucose 87 120 124 POC Glucose Comment Glu2: cleaned meter Glu2: cleaned meter 11/30/24 06:31 POC Glucose 108 POC Glucose Comment Medications and Allergies Allergies and Active Meds: Allergies gabapentin Allergy (Unknown, Verified 11/10/24 19:15) Unknown Reaction penicillin V Allergy (Unknown, Verified 11/10/24 19:15) Unknown Reaction Penicillins Allergy (Unknown, Verified 11/10/24 19:15) Unknown Reaction haloperidol (From Haldol) Allergy (Verified 11/10/24 19:15) HYPOXIA lorazepam (From Ativan) Allergy (Verified 11/10/24 19:15) HYPOXIA ziprasidone (From Geodon) Allergy (Verified 11/10/24 19:15) HYPOXIC Active Medications Generic Name Dose Route Start Last Admin Trade Name Freq PRN Reason Stop Dose Admin Acetaminophen 650 mg 11/24/24 18:00 11/30/24 06:33 Acetaminophen 650 Mg/20.3 Ml Oral.Susp PEG 11/24/25 17:59 Not Given Q6H JIM Al Hydrox/Mg Hydrox/Simethicone 30 ml 11/18/24 20:47 Mag Hydrox/Al Hydrox/Simeth 30 Ml Udc PEG 11/18/25 13:58 Q4H PRN Indigestion Atorvastatin Calcium 20 mg 11/18/24 21:00 11/29/24 20:44 Atorvastatin 20 Mg Tablet PEG 11/18/25 20:59 20 mg QPM JIM Administration Bisacodyl 10 mg 11/18/24 13:59 Bisacodyl 10 Mg Supp.Rect MT 11/18/25 13:58 DAILY PRN Constipation Clopidogrel Bisulfate 75 mg 11/19/24 09:00 11/29/24 08:10 Clopidogrel Bisulfate 75 Mg Tablet PEG 11/19/25 08:59 75 mg DAILY JIM Administration Docusate Sodium 283 mg 11/18/24 13:59 Docusate Enema 283 Mg/5 Ml Enema MT 11/18/25 13:58 DAILY PRN Constipation Docusate Sodium 100 mg 11/18/24 22:48 Docusate Liquid 100 Mg/10 Ml Udc PEG 11/18/25 20:59 BID PRN constipation Enoxaparin Sodium 40 mg 11/20/24 10:00 11/29/24 09:29 Enoxaparin 40 Mg/0.4 Ml Syringe SUBCUT 11/20/25 09:59 Not Given DAILY@1000 [facility] Finasteride 5 mg 11/19/24 09:00 11/29/24 08:15 Finasteride 5 Mg Tablet PEG 11/19/25 08:59 5 mg DAILY JIM Administration Guaifenesin 10 ml 11/18/24 13:57 11/20/24 19:46 Guaifenesin Syrup 10 Ml Udc PEG 11/18/25 13:56 10 ml Q4HR PRN Administration congestion Lactulose 30 gm 11/18/24 20:47 Lactulose 20 Gm/30 Ml Udc PEG 11/18/25 13:58 DAILY PRN Constipation Latanoprost 1 drops 11/18/24 22:00 11/30/24 00:07 Latanoprost 0.005% Op Soln 50 Drops/2.5 Ml Bottle EYE-BOTH 11/18/25 21:59 Not Given QHS [facility] Lidocaine 1 patch 11/18/24 13:57 Lidocaine 4% Adh..Patch TOPICAL 11/18/25 13:56 Q12HR PRN pain Melatonin 10 mg 11/21/24 22:00 11/30/24 00:08 Melatonin 5 Mg Tablet PEG 11/21/25 21:59 Not Given QHS JIM Metoprolol Tartrate 50 mg 11/18/24 21:00 11/29/24 20:44 Metoprolol Tartrate 50 Mg Tablet PEG 11/18/25 20:59 50 mg BID JIM Administration Polyethylene Glycol 17 gm 11/25/24 18:00 Polyethylene Glycol 3350 17 Gm Powd.Pack PEG 11/19/25 08:59 DAILY PRN Congestion Sennosides 17.2 mg 11/19/24 12:00 Sennosides 8.6 Mg Tablet PEG 11/19/25 11:59 DAILY@12 PRN If no BM in 2 days Sennosides 8.8 mg 11/18/24 22:00 11/30/24 00:08 Sennosides Syrup 8.8 Mg/5 Ml Udc PEG 11/18/25 21:59 Not Given QHS [facility] Sodium Chloride 0 ml 11/18/24 13:59 Sodium Chloride 0.9 % 10 Ml Syringe IV-PUSH 11/18/25 13:58 PRN PRN Flush Trazodone HCl 50 mg 11/28/24 12:36 11/29/24 20:44 Trazodone 50 Mg Tablet PEG 11/28/25 12:35 50 mg QHS PRN Administration Insomnia Assessment/Plan Assessment/Plan (1) Closed displaced fracture of left femoral neck: (2) Dysphagia: Qualifiers: Dysphagia type: unspecified Qualified Code(s): R13.10 - Dysphagia, unspecified (3) Permanent atrial fibrillation: (4) Sick sinus syndrome: (5) S/P CABG x 3: (6) Mild left ventricular systolic dysfunction: (7) Status post placement of cardiac pacemaker: (8) Severe protein-calorie malnutrition: (9) Impaired mobility and activities of daily living: Plan This is a 84-year-old male who [facility] IRFdue to multifactorial functional decline in the setting of left femoral neck fracture s/p repair. He has continued impaired mobility and impaired independence with ADLs and IADLs requiring PT/OT/RELATIONSHIP ASSOCIATE 5-7 days/week 3 hours/day to maximize safety and independence with functional ability and self-care. -PT to improve patient's strength, endurance, bed mobility, transfers (sit- stand), standing balance, gait quality on level surfaces and stairs, coordination and functional ADL skills. We will also work to improve patient's safety awareness during transfers and ambulation. -OT for basic ADL retraining (bathing, dressing, toileting, continence, grooming, feeding, transferring), to increase activity tolerance and functional mobility to evaluate for adaptive assistive device. We will work to improve patient's endurance and educate patient on fall prevention and energy co nservation techniques-pacing strategies and proper breathing techniques duringfunctional tasks. -Patient education -Pressure ulcer prophylaxis; encourage mobilization, frequent postural changes, pressure-relief techniques -DVT prophylaxis -Encourage deep breathing exercise incentive spirometry. -Monitor bladder. Toileting schedule. Continue current bladder management, with scans as needed andCIC if needed. Start bowel care program every day to obtain continence, prevent ileus. -Maintain fall precautions -Gait and balance retraining -Provision of the necessary gait aids and functional adaptive equipment to enhance the patient's a functional voodoo -Encourage deep breathing exercises and incentive spirometry -RD evaluation -Ensure adequate nutrition and hydration -Discharge planning. #. UPDATES -Okay to start PEG tube training with in preparation for discharge. -Continue ST as ordered. -Recheck basic labs tomorrow morning. -Continue current management -Watch pressure ulcer. -Continue PT/OT/ST as ordered -Hospitalist to assist with management of comorbid medical conditions #. Pain control: Tylenol scheduled #. Bowel and bladder: Continent of Bowel/bladder #. Skin: (pressure ulcer/surgical site) Pressure ulcer prophylaxis; encourage mobilization, frequent postural changes, pressure-relief techniques. OK to add Ventress salve. Can also use donut cushion when up in wheelchair if this is more comfortable #. Sleep: Optimize sleep/wake cycle DVT prophylaxis: Lovenox 40 mg daily Functional status: Impaired. Limited by pain, weakness Discharge planning: ELOS 1-2 weeks Advance care planning discussed with patient. Patient would like to be made DNR- CCA without intubation. Order placed. I spent 25 minutes for services, including [id number] encounter with the patient, discussion of the case, plan of care, and exam; and [id number] activities, such as reviewing pertinent product consultant documentation, recent therapynotes, laboratory and radiology studies, and discussion of case with care team including physician, nursing, case planner, and therapists. More than 50 % of time was spent on patient/family counseling or coordination ofcare. Documented By: Jorge Clifton MD [id number] Signed By: 11/30/24 0716 [facility]03-06-2025 Progress note Author Jen Acevedo [facility] Note Date/Time November 29, 2024 12:[address] [facility] [address] [place] [address] Physiatry(Rehab) Progress Note Signed Patient: Bravo Arce MR#: [id number] : 1940 Acct:[id number] Age/Sex: 84 / M Adm Date: 5 Loc: Room: [address] [place] [address] Type: ADM IN Attending Dr: Jorge Clifton MD Copies to: ~ Date of Service: 11/28/2024 Subjective Subjective Narrative: Mr. Arce is a 84 year old male with past medical history of chronic A-fib s/p left atrial appendage ligation in May 2022, on Plavix for CAD s/p CABGx 3 vessels, mitral regurg s/p repair, permanent afib with sick sinus syndrome s/p pacemaker placement, parathyroid gland neoplasm s/p treatment in remission, BPH with LUTS, GERD who presents with multifactorial functional decline in the setting of left femoral neck fracture s/p femoral neck repair. He recently had a prolonged hospitalization. He presented to [facility] about 3 weeks ago after his witnessed an episode where he went blank and froze . She witnessed the event and lowered him to the floor per her report. He was intubated on the ambulance ride to [facility]. He was extubated after 48 hours. She tells me he was worked up for stroke or seizure, and was transferred to [facility] at family request after having a bad reaction to Geodon prompting reintubation. He was again subsequently extubated at after 2-3 days. She says the doctors at told her they did not have any answer as to the initial episode prompting his presentation to [facility]. She tells me that he has had 4 or 5 of these episodes over the past 20 years. He was unable to have an MRI due to incompatible pacemaker. He was discharged from [facility] to detention facility where hehad persistent hip pain. reports no trauma, but notes he has been having nagging hip pain since July. She reports urging the detention facility to do an x- ray which demonstrated right femoral neck fracture. He is now s/p femoral neck repair. He is also s/p PEG placement due to dysphagia Interval history: Patient was examined in his room while working with speech therapy. is at the bedside. Patient reports continued insomnia despite receiving melatonin at bedtime. I will adjust the regimen. He has no pain or discomfort. Vitals appear stable. No cardiopulmonary or other abnormal symptoms. Patient voices continued concerns with his internal nutrition and inability to take anything p.o. except for ice chips. We once again discussed the reasoning purpose behind current diet orders encouraging continued ST participation with apossible outcome of diet advancement future. Patient understands and agrees. would like to start hands-on tube feed education, nursing staff is aware. He is scheduled to be discharged home on Tuesday. Review of Systems Review of Systems All other systems reviewed & are negative unless noted below or in HPI Exam Physical Exam Vital Signs: Temp Pulse Resp BP Pulse Ox O2 Del Method O2 Flow Rate 97.8 F 77 20 105/71 98 Room Air 1 11/28/24 06:33 11/28/24 08:58 11/28/24 06:33 11/28/24 08:58 11/28/24 08:58 11/28/24 08:58 11/23/24 00:00 FiO2 97 11/22/24 02:18 Objective Labs 11/19/24 04:28 11/19/24 04:28 Labs: Laboratory Results - last 24 hr 11/27/24 11/28/24 23:55 06:18 POC Glucose 115 109 POC Glucose Comment Glu2: cleaned meter Glu2: cleaned meter Medications and Allergies Allergies and Active Meds: Allergies gabapentin Allergy (Unknown, Verified 11/10/24 19:15) Unknown Reaction penicillin V Allergy (Unknown, Verified 11/10/24 19:15) Unknown Reaction Penicillins Allergy (Unknown, Verified 11/10/24 19:15) Unknown Reaction haloperidol (From Haldol) Allergy (Verified 11/10/24 19:15) HYPOXIA lorazepam (From Ativan) Allergy (Verified 11/10/24 19:15) HYPOXIA ziprasidone (From Geodon) Allergy (Verified 11/10/24 19:15) HYPOXIC Active Medications Generic Name Dose Route Start Last Admin Trade Name Freq PRN Reason Stop Dose Admin Acetaminophen 650 mg 11/24/24 18:00 11/28/24 11:32 Acetaminophen 650 Mg/20.3 Ml Oral.Susp PEG 11/24/25 17:59 650 mg Q6H JIM Administration Al Hydrox/Mg Hydrox/Simethicone 30 ml 11/18/24 20:47 Mag Hydrox/Al Hydrox/Simeth 30 Ml Udc PEG 11/18/25 13:58 Q4H PRN Indigestion Atorvastatin Calcium 20 mg 11/18/24 21:00 11/27/24 20:40 Atorvastatin 20 Mg Tablet PEG 11/18/25 20:59 20 mg QPM JIM Administration Bisacodyl 10 mg 11/18/24 13:59 Bisacodyl 10 Mg Supp.Rect MT 11/18/25 13:58 DAILY PRN Constipation Clopidogrel Bisulfate 75 mg 11/19/24 09:00 11/28/24 08:44 Clopidogrel Bisulfate 75 Mg Tablet PEG 11/19/25 08:59 75 mg DAILY JIM Administration Docusate Sodium 283 mg 11/18/24 13:59 Docusate Enema 283 Mg/5 Ml Enema MT 11/18/25 13:58 DAILY PRN Constipation Docusate Sodium 100 mg 11/18/24 22:48 Docusate Liquid 100 Mg/10 Ml Udc PEG 11/18/25 20:59 BID PRN constipation Enoxaparin Sodium 40 mg 11/20/24 10:00 11/28/24 10:07 Enoxaparin 40 Mg/0.4 Ml Syringe SUBCUT 11/20/25 09:59 Not Given DAILY@1000 JIM Finasteride 5 mg 11/19/24 09:00 11/28/24 08:44 Finasteride 5 Mg Tablet PEG 11/19/25 08:59 5 mg DAILY JIM Administration Guaifenesin 10 ml 11/18/24 13:57 11/20/24 19:46 Guaifenesin Syrup 10 Ml Udc PEG 11/18/25 13:56 10 ml Q4HR PRN Administration congestion Lactulose 30 gm 11/18/24 20:47 Lactulose 20 Gm/30 Ml Udc PEG 11/18/25 13:58 DAILY PRN Constipation Latanoprost 1 drops 11/18/24 22:00 11/27/24 23:00 Latanoprost 0.005% Op Soln 50 Drops/2.5 Ml Bottle EYE-BOTH 11/18/25 21:59 Not Given QHS JIM Lidocaine 1 patch 11/18/24 13:57 Lidocaine 4% Adh..Patch TOPICAL 11/18/25 13:56 Q12HR PRN pain Melatonin 10 mg 11/21/24 22:00 11/27/24 23:00 Melatonin 5 Mg Tablet PEG 11/21/25 21:59 Not Given QHS JIM Metoprolol Tartrate 50 mg 11/18/24 21:00 11/28/24 08:44 Metoprolol Tartrate 50 Mg Tablet PEG 11/18/25 20:59 50 mg BID JIM Administration Polyethylene Glycol 17 gm 11/25/24 18:00 Polyethylene Glycol 3350 17 Gm Powd.Pack PEG 11/19/25 08:59 DAILY PRN Congestion Sennosides 17.2 mg 11/19/24 12:00 Sennosides 8.6 Mg Tablet PEG 11/19/25 11:59 DAILY@12 PRN If no BM in 2 days Sennosides 8.8 mg 11/18/24 22:00 11/27/24 23:01 Sennosides Syrup 8.8 Mg/5 Ml Udc PEG 11/18/25 21:59 Not Given QHS JIM Sodium Chloride 0 ml 11/18/24 13:59 Sodium Chloride 0.9 % 10 Ml Syringe IV-PUSH 11/18/25 13:58 PRN PRN Flush Assessment/Plan Assessment/Plan (1) Closed displaced fracture of left femoral neck: (2) Dysphagia: Qualifiers: Dysphagia type: unspecified Qualified Code(s): R13.10 - Dysphagia, unspecified (3) Permanent atrial fibrillation: (4) Sick sinus syndrome: (5) S/P CABG x 3: (6) Mild left ventricular systolic dysfunction: (7) Status post placement of cardiac pacemaker: (8) Severe protein-calorie malnutrition: (9) Impaired mobility and activities of daily living: Plan This is a 84-year-old male who presents to [facility] IRFdue to multifactorial functional decline in the setting of left femoral neck fracture s/p repair. He has continued impaired mobility and impaired independence with ADLs and IADLs requiring PT/OT/RELATIONSHIP ASSOCIATE 5-7 days/week 3 hours/day to maximize safety and independence with functional ability and self-care. -PT to improve patient's strength, endurance, bed mobility, transfers (sit- stand), standing balance, gait quality on level surfaces and stairs, coordination and functional ADL skills. We will also work to improve patient's safety awareness during transfers and ambulation. -OT for basic ADL retraining (bathing, dressing, toileting, continence, grooming, feeding, transferring), to increase activity tolerance and functional mobility to evaluate for adaptive assistive device. We will work to improve patient's endurance and educate patient on fall prevention and energy conservation techniques-pacing strategies and proper breathing techniques duringfunctional tasks. -Patient education -Pressure ulcer prophylaxis; encourage mobilization, frequent postural changes, pressure-relief techniques -DVT prophylaxis -Encourage deep breathing exercise incentive spirometry. -Monitor bladder. Toileting schedule. Continue current bladder management, with scans as needed and CIC if needed. Start bowel care program every day to obtain continence, prevent ileus. -Maintain fall precautions -Gait and balance retraining -Provision of the necessary gait aids and functional adaptive equipment to enhance the patient's a functional voodoo -Encourage deep breathing exercises and incentive spirometry -RD evaluation -Ensure adequate nutrition and hydration -Discharge planning. #. UPDATES -Okay to start PEG tube training with in preparation for discharge. -Continue ST as ordered. -Recheck basic labs tomorrow morning. -Continue current management -Watch pressure ulcer. -Continue PT/OT/ST as ordered -Hospitalist to assist with management of comorbid medical conditions #. Pain control: Tylenol scheduled #. Bowel and bladder: Continent of Bowel/bladder #. Skin: (pressure ulcer/surgical site) Pressure ulcer prophylaxis; encourage mobilization, frequent postural changes, pressure-relief techniques. OK to add Ventress salve. Can also use donut cushion when up in wheelchair if this is more comfortable #. Sleep: Optimize sleep/wake cycle DVT prophylaxis: Lovenox 40 mg daily Functional status: Impaired. Limited by pain, weakness Discharge planning: ELOS 1-2 weeks Advance care planning discussed with patient. Patient would like to be made DNR- CCA without intubation. Order placed. I spent 21 minutes for services, including [id number]-oa-[id number] encounter with the patient, discussion of the case, plan of care, and exam; and [id number] activities, such as reviewing pertinent product consultant documentation, recent therapynotes, laboratory and radiology studies, and discussion of case with care team including physician, nursing, case planner, and therapists. More than 50 % of time was spent on patient/family counseling or coordination ofcare. <Statement entered by Jorge Clifton MD - 11/29/24 13:17> This documentation has been reviewed and approved. Documented By: Jen Acevedo APRN 11/28/24 1 234 Signed By: <Electronically signed by GILL Acevedo> 11/28/24 1243 <Electronically signed by Jorge Clifton MD> 11/29/24 1311 [facility] Work Phone: 1(437) 565-623403-06-2025 [place] [address] Physiatry(Rehab) Progress Note Signed Patient: Bravo Arce MR#: [id number] : 1940 Acct:[id number] Age/Sex: 84 / M Adm Date: 5 Loc: Room: [address] [place] [address] Type: ADM IN Attending Dr: Jorge Clifton MD Copies to: ~ Date of Service: 11/28/2024 Subjective Subjective Narrative: Mr. Arce is a 84 year old male with past medical history of chronic A-fib s/p left atrial appendage ligation in May 2022, on Plavix for CAD s/p CABGx 3 vessels, mitral regurg s/p repair, permanent afib with sick sinus syndrome s/p pacemaker placement, parathyroid gland neoplasm s/p treatment in remission, BPH with LUTS, GERD who presents with multifactorial functional decline in the setting of left femoral neck fracture s/p femoral neck repair. He recently had a prolonged hospitalization. He presented to [facility] about 3 weeks ago after his witnessed an episode where he went blank and froze . She witnessed the event and lowered him to the floor per her report. He was intubated on the ambulance ride to [facility]. He was extubated after 48 hours. She tells me he was worked up for stroke or seizure, and was transferred to [facility] at family request after having a bad reaction to Geodon prompting reintubation. He was again subsequently extubated at after 2-3 days. She says the doctors at told her they did not have any answer as to the initial episode prompting his presentation to [facility]. She tells me that he has had 4 or 5 of these episodes over the past 20 years. He was unable to have an MRI due to incompatible pacemaker. He was discharged from [facility] to detention facility where hehad persistent hip pain. reports no trauma, but notes he has been having nagging hip pain since July. She reports urging the detention facility to do an x-ray which demonstrated right femoral neck fracture. He is now s/p femoral neck repair. He is also s/p PEG placement due to dysphagia Interval history: Patient was examined in his room while working with speech therapy. is at the bedside. Patientreports continued insomnia despite receiving melatonin at bedtime. I will adjust the regimen. He has no pain or discomfort. Vitals appear stable. No cardiopulmonary or other abnormal symptoms. Patient voices continued concerns with his internal nutrition and inability to take anything p.o. except for ice chips. We once again discussed the reasoning purpose behind current diet orders encouraging continued ST participation with apossible outcome of diet advancement future. Patient understands and agrees. would like to start hands-on tube feed education, nursing staff is aware. He is scheduled to be discharged home on Tuesday. Review of Systems Review of Systems All other systems reviewed & are negative unless noted below or in HPI Exam Physical Exam Vital Signs: Temp Pulse Resp BP Pulse Ox O2 Del Method O2 Flow Rate 97.8 F 77 20 105/71 98 Room Air 1 11/28/24 06:33 11/28/24 08:58 11/28/24 06:33 11/28/24 08:58 11/28/24 08:58 11/28/24 08:58 11/23/24 00:00 FiO2 97 11/22/24 02:18 Objective Labs 11/19/24 04:28 11/19/24 04:28 Labs: Laboratory Results - last 24 hr 11/27/24 11/28/24 23:55 06:18 POC Glucose 115 109 POC Glucose Comment Glu2: cleaned meter Glu2: cleaned meter Medications and Allergies Allergies and Active Meds: Allergies gabapentin Allergy (Unknown, Verified 11/10/24 19:15) Unknown Reaction penicillin V Allergy (Unknown, Verified 11/10/24 19:15) Unknown Reaction Penicillins Allergy (Unknown, Verified 11/10/24 19:15) Unknown Reaction haloperidol (From Haldol) Allergy (Verified 11/10/24 19:15) HYPOXIA lorazepam (From Ativan) Allergy (Verified 11/10/24 19:15) HYPOXIA ziprasidone (From Geodon) Allergy (Verified 11/10/24 19:15) HYPOXIC Active Medications Generic Name Dose Route Start Last Admin Trade Name Freq PRN Reason Stop Dose Admin Acetaminophen 650 mg 11/24/24 18:00 11/28/24 11:32 Acetaminophen 650 Mg/20.3 Ml Oral.Susp PEG 11/24/25 17:59 650 mg Q6H JIM Administration Al Hydrox/Mg Hydrox/Simethicone 30 ml 11/18/24 20:47 Mag Hydrox/Al Hydrox/Simeth 30 Ml Udc PEG 11/18/25 13:58 Q4H PRN Indigestion Atorvastatin Calcium 20 mg 11/18/24 21:00 11/27/24 20:40 Atorvastatin 20 Mg Tablet PEG 11/18/25 20:59 20 mg QPM JIM Administration Bisacodyl 10 mg 11/18/24 13:59 Bisacodyl 10 Mg Supp.Rect MT 11/18/25 13:58 DAILY PRN Constipation Clopidogrel Bisulfate 75 mg 11/19/24 09:00 11/28/24 08:44 Clopidogrel Bisulfate 75 Mg Tablet PEG 11/19/25 08:59 75 mg DAILY JIM Administration Docusate Sodium 283 mg 11/18/24 13:59 Docusate Enema 283 Mg/5 Ml Enema MT 11/18/25 13:58 DAILY PRN Constipation Docusate Sodium 100 mg 11/18/24 22:48 Docusate Liquid 100 Mg/10 Ml Udc PEG 11/18/25 20:59 BID PRN constipation Enoxaparin Sodium 40 mg 11/20/24 10:00 11/28/24 10:07 Enoxaparin 40 Mg/0.4 Ml Syringe SUBCUT 11/20/25 09:59 Not Given DAILY@1000 JIM Finasteride 5 mg 11/19/24 09:00 11/28/24 08:44 Finasteride 5 Mg Tablet PEG 11/19/25 08:59 5 mg DAILY JIM Administration Guaifenesin 10 ml 11/18/24 13:57 11/20/24 19:46 Guaifenesin Syrup 10 Ml Udc PEG 11/18/25 13:56 10 ml Q4HR PRN Administration congestion Lactulose 30 gm 11/18/24 20:47 Lactulose 20 Gm/30 Ml Udc PEG 11/18/25 13:58 DAILY PRN Constipation Latanoprost 1 drops 11/18/24 22:00 11/27/24 23:00 Latanoprost 0.005% Op Soln 50 Drops/2.5 Ml Bottle EYE-BOTH 11/18/25 21:59 Not Given QHS JIM Lidocaine 1 patch 11/18/24 13:57 Lidocaine 4% Adh..Patch TOPICAL 11/18/25 13:56 Q12HR PRN pain Melatonin 10 mg 11/21/24 22:00 11/27/24 23:00 Melatonin 5 Mg Tablet PEG 11/21/25 21:59 Not Given QHS JIM Metoprolol Tartrate 50 mg 11/18/24 21:00 11/28/24 08:44 Metoprolol Tartrate 50 Mg Tablet PEG 11/18/25 20:59 50 mg BID JIM Administration Polyethylene Glycol 17 gm 11/25/24 18:00 Polyethylene Glycol 3350 17 Gm Powd.Pack PEG 11/19/25 08:59 DAILY PRN Congestion Sennosides 17.2 mg 11/19/24 12:00 Sennosides 8.6 Mg Tablet PEG 11/19/25 11:59 DAILY@12 PRN If no BM in 2 days Sennosides 8.8 mg 11/18/24 22:00 11/27/24 23:01 Sennosides Syrup 8.8 Mg/5 Ml Udc PEG 11/18/25 21:59 Not Given QHS JIM Sodium Chloride 0 ml 11/18/24 13:59 Sodium Chloride 0.9 % 10 Ml Syringe IV-PUSH 11/18/25 13:58 PRN PRN Flush Assessment/Plan Assessment/Plan (1) Closed displaced fracture of left femoral neck: (2) Dysphagia: Qualifiers: Dysphagia type: unspecified Qualified Code(s): R13.10 - Dysphagia, unspecified (3) Permanent atrial fibrillation: (4) Sick sinus syndrome: (5) S/P CABG x 3: (6) Mild left ventricular systolic dysfunction: (7) Status post placement of cardiac pacemaker: (8) Severe protein-calorie malnutrition: (9) Impaired mobility and activities of daily living: Plan This is a 84-year-old male who presents to [facility] to multifactorial functional decline in the setting of left femoral neck fracture s/p repair. He has continued impaired mobility and impaired independence with ADLs and IADLs requiring PT/OT/RELATIONSHIP ASSOCIATE 5-7 days/week 3 hours/day to maximize safety and independence with functional ability and self-care. -PT to improve patient's strength, endurance, bed mobility, transfers (sit- stand), standing balance, gait quality on level surfaces and stairs, coordination and functional ADL skills. We will also work to improve patient's safety awareness during transfers and ambulation. -OT for basic ADL retraining (bathing, dressing, toileting, continence, grooming, feeding, transferring), to increase activity tolerance and functional mobility to evaluate for adaptive assistive device. We will work to improve patient's endurance and educate patient on fall prevention and energy co nservation techniques-pacing strategies and proper breathing techniques duringfunctional tasks. -Patient education -Pressure ulcer prophylaxis; encourage mobilization, frequent postural changes, pressure-relief techniques -DVT prophylaxis -Encourage deep breathing exercise incentive spirometry. -Monitor bladder. Toileting schedule. Continue current bladder management, with scans as needed andCIC if needed. Start bowel care program every day to obtain continence, prevent ileus. -Maintain fall precautions -Gait and balance retraining -Provision of the necessary gait aids and functional adaptive equipment to enhance the patient's a functional voodoo -Encourage deep breathing exercises and incentive spirometry -RD evaluation -Ensure adequate nutrition and hydration -Discharge planning. #. UPDATES -Okay to start PEG tube training with in preparation for discharge. -Continue ST as ordered. -Recheck basic labs tomorrow morning. -Continue current management -Watch pressure ulcer. -Continue PT/OT/ST as ordered -Hospitalist to assist with management of comorbid medical conditions #. Pain control: Tylenol scheduled #. Bowel and bladder: Continent of Bowel/bladder #. Skin: (pressure ulcer/surgical site) Pressure ulcer prophylaxis; encourage mobilization, frequent postural changes, pressure-relief techniques. OK to add Ventress salve. Can also use donut cushion when up in wheelchair if this is more comfortable #. Sleep: Optimize sleep/wake cycle DVT prophylaxis: Lovenox 40 mg daily Functional status: Impaired. Limited by pain, weakness Discharge planning: ELOS 1-2 weeks Advance care planning discussed with patient. Patient would like to be made DNR- CCA without intubation. Order placed. I spent 21 minutes for services, including vsvs-vs-siob encounter with the patient, discussion of the case, plan of care, and exam; and [id number] activities, such as reviewing pertinent product consultant documentation, recent therapynotes, laboratory and radiology studies, and discussion of case with care team including physician, nursing, case planner, and therapists. More than 50 % of time was spent on patient/family counseling or coordination ofcare. This documentation has been reviewed and approved. Documented By: Jen Acevedo APRN 11/28/24 1 234 Signed By: 11/28/24 1243 11/29/24 1317 [facility]03-05-2025 Progress note Author Nica Martinez [facility] Note Date/Time November 28, 2024 1:[address] [facility] [address] [place] [address] Palliative Care Progress Note Signed Patient: Bravo Arce MR#: [id number] : 1940 Acct:[id number] Age/Sex: 84 / M Adm Date: 5 Loc: Room: [address] [place] [address] Type: ADM IN Attending Dr: Jorge Clifton MD Copies to: ~ Date of Service: 11/28/2024 Subjective Subjective HPI: Mr Arce has a history of of chronic A-fib s/p left atrial appendage ligationin May 2022, on Plavix for CAD s/p CABG x 3 vessels, mitral regurg s/p repair, sick sinus syndrome s/p pacemaker placement, BPH with LUTS, GERD and history of skin cancer with neck dissection in 2018 who presented to the ER on 11/10 with left hip pain for the previous 3 weeks. Patient did have a significant fall with possible syncope at the time when pain started. Of note, after initial fall, he did present to outside ER with unresponsiveness, acute hematuria, and developed acute respiratory failure. He was intubated, admitted to ICU, placed on continuous bladder irrigation, and required Levophed. Evaluated by neurology. EEE was negative. He did stabilize and was successfully extubated. He transferred to regular floor but developed metabolicencephalopathy. Became hypoxic, noted to have ventricular tachycardia, and required re-intubation. Transferred back to ICU and started on amiodarone drip.At this point, he was transferred to [place] to [facility]. He again was able to improve, extubated safely. Does have history of dysphagia but was noted worse after requiring intubation twice. PEG tube was being considered buthe was discharged to SNF for therapy. Discussions regarding PEG tube were continued while at SNF but fortunately, he was able to maintain nutritional nees. While at rehab, patient was having difficulty standing from seated position related to hip pain, prompting xray. He had outpatient xray performed at [facility] facility showing acute subcapital femoral neck fracture and was sent to the ER on 11/10. In the ER, his vitals were stable. Labs unremarkable. Chest x-ray was negative for acute pathologybut did show some cardiomegaly. Orthopedics was consulted, updated pelvis and femur xrays showing Displaced subcapital hip fracture on the left. The right hip arthroplasty and acetabular fixation hardware. There lumbar and SI joint degenerative changes . Recommended admission with plans for surgery. He was admitted for left hip fracture. Cardiology was consulted for pre-operative CV risk assessment given patient's cardiac history. Patient was felt to be optimized and cleared for surgery. Patient had open treatment of femoral neck fracture with prosthetic replacement performed on 11/12. No complications from surgery. However, patient developed worsening dysphagia during hospitalization. Completed MBS on 11/14 with significant dysphagia, with ST recommending NPO. General surgery was consulted and recommended PEG placement. Surgery with PEg placement was performed on 11/16 without complication. Patient remained stable throughout hospitalization. Was evaluated by PMR and recommended inpatient rehab. he was transferred up to inpatient rehab on 11/19. Patient has made progress with therapy regarding mobility and ability to complete his ADLs/IADLS. unfortunately, his dysphagia has persisted. He had an updated MBS performed on11/26 showing min oral and mod-severe pharyngeal phase dysphagia. Aspiration/penetration observed following thin and nectar thick liquids by spoon, with penetration noted w/ honey thick and puree consistencies. Postural changes and strategies did not improve airway protection. Pt w/ only intermittent sensation of penetration/aspiration. Significant laryngeal and vallecular residuals remained post swallow. Speech recommendation of NPO with utilizatino of PEG for meds and nutrition. He does seem to be tolerating tube feeds without issue. Patient has expressed frustration with prolonged hospitalization and swallowing concerns. Palliative care has been consulted to assist with goals of care. Patient sitting in chair. Patient's Smitha is at bedside. Patient states overall he is doing okay. His pain is doing well. Denies pain when he is at rest. Does become slightly sore with any activity. Physical therapy is going well. He denies shortness of breath at rest. Was previously wearing oxygen during hospitalization but is no longer requiring it. States he is doingokay without it. Does have some exertional dyspnea but states it is similar to how he feels when he is at home. He denies any chest pain. He did have an episode of nausea the other day. Denies any further episodes or vomiting. Feels like he is tolerating tube feeds without issues. Denies dizziness or lightheadedness. States he is sleeping okay off-and-on but the bed is uncomfortable. notes he has napped throughout the day at times. Patient expresses being frustrated by being in the hospital for so long. He is typically a very active patrizia and being limited in his mobility has been very difficult. He is also very frustrated with his limited diet and speech recommendations. Patient lives in [place]. He is originally from there and has lived there his whole life. He is to his Smitha. They have been together for 25years. They were introduced by Bravo's daughter. He has have 2 children boy and a girl. Smitha also has 2 children. Some of their children live nearby. They have a close relationship with their family. They have 5 grandkids and 2 great grandkids. Patient is Shinto and has a strong tres. His Smitha is Taoist. She states his tres is one of the things attracted her to him. Because they are different religions, they alternate going to each other's episcopalian. He attends [employer] while she attends [employer]. 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 Patient enjoys classic cars and attending car shoes. He has 3 classic cars that he has built in his garage. heshares this hobby with his son. His favorite cars are [employer]. He also enjoys building engines. States in the past, he enjoyed drag racing cars. 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 Smitha states they are both very active [facility] and have been on committees to support the town. He also enjoys lawncare and gardening. Sean states he has had swallowing issues for a very long time, even before his neck dissection in 2018. States both of his kids have similar swallowing concerns. Patient states he may never gain significant swallowing back. Discussed tube feeding vs comfort care measures with pleasure feeding. Reviewed that he is tolerating tube feedings, gaining weight, doing well with PT. Patient feels frustrated by speech therapy and want to make sure they are not keeping him NPO for marginal reasons. Reviewed MBS showing moderate to severe dysphagia as well as silent aspiration. Encouraged that he may improve with continued therapy at home. Also discussed he may improve to eat soft foods but need tube feeding for nutritional support. Patient states he eats to live but not live to eat and has always been that way. He feels he can live off tube feedings if he is still able to have a good quality of life. Reviewed because he is bolus feeding, he should be able to live a normal life with tube feedings. Stated he will be able to live off tube feeding up to a certain point. Reviewed that he is the only one who can decide what that limit is. Reviewed comfort care measures with pleasure feeding if he no longer wanted to just tube feed or stop working with therapies. He currently does not feel that he is ready to stop aggressive care. PINEDA is his Smitha. not currently on file but encouraged to bring paperwork to confidential secretary desk to upload into chart. Also reviewed resuscitation preferences. Patient confirms his decision of DNRCCA without intubation. 3/5 Patient sitting in chair. and sister in law at bedside. Patient has no major concerns today. States he feels good overall and seems to be in better spirits today. Worked with PT this morning and it went well. Continues to havedifficulty sleeping at night but hopes going home will improve this. He continues to feel frustrated with not being able to eat. He is thankful he as an alternative nutritional support with the tube feedings though. He is hopefulthat with continued therapy at home, his swallowing will continue to improve. Encouragement provided. Exam Physical Exam Vital Signs: Temp Pulse Resp BP Pulse Ox O2 Del Method O2 Flow Rate 97.8 F 77 20 105/71 98 Room Air 1 11/28/24 06:33 11/28/24 08:58 11/28/24 06:33 11/28/24 08:58 11/28/24 08:58 11/28/24 08:58 11/23/24 00:00 FiO2 97 11/22/24 02:18 Const General: comfortable, frail appearing and not ill appearing Nutritional Appearance: average body habitus and thin Orientation: alert, awake and oriented x3 Limitations: mental status not altered HEENT Ears: hearing grossly normal bilaterally Nose: external nose normal Mouth: oral mucosae normal Teeth and gingiva: dentition normal Eyes Pupils: PERRL EOM: EOM intact bilaterally Resp Effort & Inspection: normal respiratory effort and not tachypneic Auscultation: clear to auscultation bilaterally, no rales, no rhonchi and no wheezes Cardio Rate: regular rate Rhythm: regular rhythm Heart Sounds: S1 normal and S2 normal GI Palpation: soft, not firm and no guarding Skin General: no rashes or lesions noted Neuro General: patient alert, patient awake and moves all extremities Cranial Nerves: CN's II-XII intact bilaterally Cognition: normal cognition Speech: speech normal Extrem General: no edema Psych Appearance: grossly normal Mood: congruent mood Affect: normal affect Attitude: cooperative Thought Process: normal Thought Content: normal Insight: insight good Judgment: judgment good Objective Labs 11/19/24 04:28 11/19/24 04:28 Labs: Laboratory Results - last 24 hr 11/27/24 11/28/24 23:55 06:18 POC Glucose 115 109 POC Glucose Comment Glu2: cleaned meter Glu2: cleaned meter Assessment/Plan Assessment/Plan (1) Counseling regarding advance care planning and goals of care: Code(s): Z71.89 - Other specified counseling (2) Impaired mobility and activities of daily living: Code(s): Z74.09 - Other reduced mobility; Z78.9 - Other specified health status (3) Closed displaced fracture of left femoral neck: Code(s): S72.002A - Fracture of unspecified part of neck of left femur, initial encounterfor closed fracture (4) Dysphagia: Qualifiers: Dysphagia type: unspecified Qualified Code(s): R13.10 - Dysphagia, unspecified Code(s): R13.10 - Dysphagia, unspecified Plan Spent 10minutes with patient and spouse. updated on current condition and overall plan of care. Encouragement provided to patient. At this time, he would like to continue with tube feedings and aggressive care. Active listeningand support provided. All questions and concerns addressed. Code status confirmed DNRCCA without intubation. PINEDA Chopra, patient's . Will continue to follow for support. Documented By: Nica Martinez DO 11/28/24 144 Signed By: <Electronically signed by Nica Martinez DO> 11/28/24 6690 [facility] Work Phone: [phone]) 729-490903-05-2025 Progress note Author Pratibha Wright [facility] Note Date/Time November 28, 2024 1:10 [address] [facility] [address] [place] [address] Hospitalist Progress Note Signed Patient: Bravo Arce MR#: [id number] : 1940 Acct:[id number] Age/Sex: 84 / M Adm Date: 5 Loc: Room: [address] [place] [address] Type: ADM IN Attending Dr: Jorge Clifton MD Copies to: ~ Date of Service: 11/27/2024 Subjective Subjective Narrative: Seen and examined in follow-up with in the room. Has been doing well with physical therapy, reports minimal soreness to left hip. Scheduled to be discharged on Tuesday. Vital signs with blood pressure well-controlled, continues on tube feeding with blood sugars well-controlled. No other issues atthis time. Exam Physical Exam Vital Signs: Temp Pulse Resp BP Pulse Ox O2 Del Method O2 Flow Rate 97.3 F L 75 20 138/72 95 Room Air 1 11/27/24 06:00 11/27/24 06:00 11/27/24 06:00 11/27/24 06:00 11/27/24 06:00 11/27/24 12:00 11/23/24 00:00 FiO2 97 11/22/24 02:18 Narrative: CONST-frail, thin, alert, cooperative, sitting up in chair CARDIAC- RRR no abnormal heart tones PULM- diminished without wheeze or rhonchi, RA, no accessory muscle use or coughnoted ABD- S/NT, NABS, PEG EXTREM- no edema BLE, calves nontender SKIN-incision site occluded with dressing Objective Lab Results 11/19/24 04:28 11/19/24 04:28 Meds Allergies and Active Meds Allergies gabapentin Allergy (Unknown, Verified 11/10/24 19:15) Unknown Reaction penicillin V Allergy (Unknown, Verified 11/10/24 19:15) Unknown Reaction Penicillins Allergy (Unknown, Verified 11/10/24 19:15) Unknown Reaction haloperidol (From Haldol) Allergy (Verified 11/10/24 19:15) HYPOXIA lorazepam (From Ativan) Allergy (Verified 11/10/24 19:15) HYPOXIA ziprasidone (From Geodon) Allergy (Verified 11/10/24 19:15) HYPOXIC Active Meds: Active Medications Generic Name Dose Route Start Last Admin Trade Name Freq PRN Reason Stop Dose Admin Acetaminophen 650 mg 11/24/24 18:00 11/27/24 12:54 Acetaminophen 650 Mg/20.3 Ml Oral.Susp PEG 11/24/25 17:59 Not Given Q6H JIM Al Hydrox/Mg Hydrox/Simethicone 30 ml 11/18/24 20:47 Mag Hydrox/Al Hydrox/Simeth 30 Ml Udc PEG 11/18/25 13:58 Q4H PRN Indigestion Atorvastatin Calcium 20 mg 11/18/24 21:00 11/26/24 20:17 Atorvastatin 20 Mg Tablet PEG 11/18/25 20:59 20 mg QPM JIM Administration Bisacodyl 10 mg 11/18/24 13:59 Bisacodyl 10 Mg Supp.Rect MT 11/18/25 13:58 DAILY PRN Constipation Clopidogrel Bisulfate 75 mg 11/19/24 09:00 11/27/24 09:47 Clopidogrel Bisulfate 75 Mg Tablet PEG 11/19/25 08:59 75 mg DAILY JIM Administration Docusate Sodium 283 mg 11/18/24 13:59 Docusate Enema 283 Mg/5 Ml Enema MT 11/18/25 13:58 DAILY PRN Constipation Docusate Sodium 100 mg 11/18/24 22:48 Docusate Liquid 100 Mg/10 Ml Udc PEG 11/18/25 20:59 BID PRN constipation Enoxaparin Sodium 40 mg 11/20/24 10:00 11/27/24 09:50 Enoxaparin 40 Mg/0.4 Ml Syringe SUBCUT 11/20/25 09:59 40 mg DAILY@1000 JIM Administration Finasteride 5 mg 11/19/24 09:00 11/27/24 09:48 Finasteride 5 Mg Tablet PEG 11/19/25 08:59 5 mg DAILY JIM Administration Guaifenesin 10 ml 11/18/24 13:57 11/20/24 19:46 Guaifenesin Syrup 10 Ml Udc PEG 11/18/25 13:56 10 ml Q4HR PRN Administration congestion Lactulose 30 gm 11/18/24 20:47 Lactulose 20 Gm/30 Ml Udc PEG 11/18/25 13:58 DAILY PRN Constipation Latanoprost 1 drops 11/18/24 22:00 11/26/24 20:17 Latanoprost 0.005% Op Soln 50 Drops/2.5 Ml Bottle EYE-BOTH 11/18/25 21:59 1drops QHS JIM Administration Lidocaine 1 patch 11/18/24 13:57 Lidocaine 4% Adh..Patch TOPICAL 11/18/25 13:56 Q12HR PRN pain Melatonin 10 mg 11/21/24 22:00 11/26/24 20:17 Melatonin 5 Mg Tablet PEG 11/21/25 21:59 10 mg QHS JIM Administration Metoprolol Tartrate 50 mg 11/18/24 21:00 11/27/24 09:47 Metoprolol Tartrate 50 Mg Tablet PEG 11/18/25 20:59 50 mg BID JIM Administration Polyethylene Glycol 17 gm 11/25/24 18:00 Polyethylene Glycol 3350 17 Gm Powd.Pack PEG 11/19/25 08:59 DAILY PRN Congestion Sennosides 17.2 mg 11/19/24 12:00 Sennosides 8.6 Mg Tablet PEG 11/19/25 11:59 DAILY@12 PRN If no BM in 2 days Sennosides 8.8 mg 11/18/24 22:00 11/26/24 20:17 Sennosides Syrup 8.8 Mg/5 Ml Udc PEG 11/18/25 21:59 8.8 mg QHS JIM Administration Sodium Chloride 0 ml 11/18/24 13:59 Sodium Chloride 0.9 % 10 Ml Syringe IV-PUSH 11/18/25 13:58 PRN PRN Flush A&P - Hospitalist Assessment/Plan (1) Dysphagia: (2) Permanent atrial fibrillation: (3) Closed displaced fracture of left femoral neck: Plan Left femoral neck fracture s/p repair 11/12 Postoperative anemia Dysphagia s/p PEG placement 11/15 hx parathyroid radiation Weakness/ debility -further plan of care per PMR team for rehab therapy, pain control & bowel regimen, DVT prophylaxis Enoxaparin -Completed doxycycline -preop hemoglobin 12.3, 10.0 on 11/19, stable continue to monitor Chronic Conditions 1. Hyperlipidemia- atorvastatin 2. CAD hx CABG, atrial fibrillation s/p left atrial appendage ligation, HFpEF- clopidogrel, Metoprolol, BP well-controlled 3. BPH with LUTS- finasteride 4. Glaucoma- latanoprost Documented By: Pratibha Wright APRN 11/27/24 1410 Signed By: <Electronically signed by GILL Wright> 11/27/24 1617 <Electronically signed by Blayne Street MD> 11/28/24 1410 [facility] Work Phone: [phone]) [phone] [place] [address] Palliative Care Progress Note Signed Patient: Bravo Arce MR#: [id number] : 1940 Acct:[id number] Age/Sex: 84 / M Adm Date: 5 Loc: Room: 8Y9618-7 Type: ADM IN Attending Dr: Jorge Clifton MD Copies to: ~ Date of Service: 11/28/2024 Subjective Subjective HPI: Mr Arce has a history of of chronic A-fib s/p left atrial appendage ligationin May 2022, on Plavix for CAD s/p CABG x 3 vessels, mitral regurg s/p repair, sick sinus syndrome s/p pacemaker placement, BPH with LUTS, GERD and history of skin cancer with neck dissection in 2018 who presentedto the ER on 11/10 with left hip pain for the previous 3 weeks. Patient did have a significant fall with possible syncope at the time when pain started. Of note, after initial fall, he did present to outside ER with unresponsiveness, acute hematuria, and developed acute respiratory failure. He was intubated, admitted to ICU, placed on continuous bladder irrigation, and required Levophed. Evaluatedby neurology. EEE was negative. He did stabilize and was successfully extubated. He transferred to regular floor but developed metabolicencephalopathy. Became hypoxic, noted to have ventricular tachycardia, and required re-intubation. Transferred back to ICU and started on amiodarone drip.At this point, he was transferred [facility] [place] [facility] [facility] hospital. He again was able to improve, extubated safely. Does have history of dysphagia but was noted worse after requiring intubation twice. PEG tube was being considered buthe was discharged to SNF for therapy. Discussions regarding PEG tube were continued while at SNF but fortunately, he was able to maintain nutritional nees. While at rehab, tootie jose was having difficulty standing from seated position related to hip pain, prompting xray. He had outpatient xray performed at [facility] facility showing acute subcapital femoral neck fractureand was sent to the ER on 11/10. In the ER, his vitals were stable. Labs unremarkable. Chest x-ray was negative for acute pathologybut did show some cardiomegaly. Orthopedics was consulted, updated pelvis and femur xrays showing Displaced subcapital hip fracture on the left. The right hip arthroplasty and acetabular fixation hardware. There lumbar and SI joint degenerative changes . Recommended admission with plans for surgery. He was admitted for left hip fracture. Cardiology was consulted forpre-operative CV risk assessment given patient's cardiac history. Patient was felt to be optimized and cleared for surgery. Patient had open treatment of femoral neck fracture with prosthetic replacement performed on 11/12. No complications from surgery. However, patient developed worsening dysphagia during hospitalization. Completed MBS on 11/14 with significant dysphagia, with ST recommending NPO. General surgery was consulted and recommended PEG placement. Surgery with PEg placement was performed on 11/16 without complication. Patient remained stable throughout hospitalization. Was evaluated by PMR and recommended inpatient rehab. he was transferred up to inpatient rehab on 11/19. Patient has made progress with therapy regarding mobility and ability to complete his ADLs/IADLS. unfortunately, his dysphagia has persisted. He had an updated MBS performed on11/26 showing min oral and mod-severe pharyngeal phase dysphagia. Aspiration/penetration observed following thin and nectar thick liquids by spoon, with penetration noted w/ honey thick and puree consistencies. Postural changes and strategies did not improve airway protection. Pt w/ only intermittent sensation of penetration/aspiration. Significant laryngeal and vallecular residuals remained post swallow. Speech recommendation of NPO with utilizatino of PEG for meds and nutrition. He does seem to be tolerating tube feeds withoutissue. Patient has expressed frustration with prolonged hospitalization and swallowing concerns. Palliative care has been consulted to assist with goals of care. Patient sitting in chair. Patient's Smitha is at bedside. Patient states overall he is doingokay. His pain is doing well. Denies pain when he is at rest. Does become slightly sore with any activity. Physical therapy is going well. He denies shortness of breath at rest. Was previously wearing oxygen during hospitalization but is no longer requiring it. States he is doingokay without it. Does have some exertional dyspnea but states it is similar to how he feels when he is at home. He denies any chest pain. He did have an episode of nausea the other day. Denies any further episodes or vomiting. Feels like he is tolerating tube feeds without issues. Denies dizziness or lightheadedness. S tates he is sleeping okay off-and-on but the bed is uncomfortable. notes he has napped throughout the day at times. Patient expresses being frustrated by being in the hospital for so long. He istypically a very active patrizia and being limited in his mobility has been very difficult. He is also very frustrated with his limited diet and speech recommendations. Patient lives in [place]. He is originally from there and has lived there his whole life. He is to his Smitha. They have been together for 25years. They were introduced by Bravo's daughter. He has have 2 children boy and a girl. Smitha also has 2 children. Some of their children live nearby. They have a close relationship with their family. They have 5 grandkids and 2 great grandkids. Patient is Shinto and has a strong tres. His Smitha is Taoist. She states his tres is one of the things attracted her to him. Because they are different religions, they alternategoing to each other's episcopalian. He attends [employer] while she attends [employer]. 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 Patient enjoys classic cars and attending car shoes. He has 3 classic cars that he has built in his garage. heshares this hobby with his son. His favorite cars are [employer]. He also enjoys buildingengines. States in the past, he enjoyed drag racing cars. 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 Smitha states they are both very active in [facility] and have been on committees to support the town. He also enjoys lawncare and gardening. Sean states he has had swallowing issues for a very long time, even before his neck dissection in 2018. States both of his kids have similar swallowing concerns. Patient states he may never gain significant swallowing back. Discussed tube feeding vs comfort care measures with pleasure feeding. Reviewed that he is tolerating tube feedings, gaining weight, doing well with PT. Patient feels frustrated by speech therapy and want to make sure they are not keeping him NPO for marginal reasons. Reviewed MBS showing moderate to severe dysphagia as well as silent aspiration. Encouraged that he may improve with continued therapy at home. Also discussed he may improve to eat soft foods but need tube feeding for nutritional support. Patient states he eats to live but not live to eat and has always been that way. He feels he can live off tube feedings if he is still able to have a good quality of life. Reviewed because he is bolus feeding, he should be able to live a normal life with tube feedings. Stated he will be able to live off tube feeding up to a certain point. Reviewed that he is the only one who can decide what that limit is. Reviewed comfort care measures with pleasure feeding if he no longer wanted to just tube feed or stop working with therapies. He currently does not feel that he is ready to stop aggressive care. HPOA is his Smitha. not currently on file but encouraged to bring paperwork to confidential secretary desk to upload into chart. Also reviewed resuscitation preferences. Patient confirms his decision of DNRCCA without intubation. 3/5 Patient sitting in chair. and sister in law at bedside. Patient has no major concerns today. States he feels good overall and seems to be in better spirits today. Worked with PT this morning andit went well. Continues to havedifficulty sleeping at night but hopes going home will improve this.He continues to feel frustrated with not being able to eat. He is thankful he as an alternative nutritional support with the tube feedings though. He is hopefulthat with continued therapy at home, his swallowing will continue to improve. Encouragement provided. Exam Physical Exam Vital Signs: Temp Pulse Resp BP Pulse Ox O2 Del Method O2 Flow Rate 97.8 F 77 20 105/71 98 Room Air 1 11/28/24 06:33 11/28/24 08:58 11/28/24 06:33 11/28/24 08:58 11/28/24 08:58 11/28/24 08:58 11/23/24 00:00 FiO2 97 11/22/24 02:18 Const General: comfortable, frail appearing and not ill appearing Nutritional Appearance: average body habitus and thin Orientation: alert, awake and oriented x3 Limitations: mental status not altered HEENT Ears: hearing grossly normal bilaterally Nose: external nose normal Mouth: oral mucosae normal Teeth and gingiva: dentition normal Eyes Pupils: PERRL EOM: EOM intact bilaterally Resp Effort & Inspection: normal respiratory effort and not tachypneic Auscultation: clear to auscultation bilaterally, no rales, no rhonchi and no wheezes Cardio Rate: regular rate Rhythm: regular rhythm Heart Sounds: S1 normal and S2 normal GI Palpation: soft, not firm and no guarding Skin General: no rashes or lesions noted Neuro General: patient alert, patient awake and moves all extremities Cranial Nerves: CN's II-XII intact bilaterally Cognition: normal cognition Speech: speech normal Extrem General: no edema Psych Appearance: grossly normal Mood: congruent mood Affect: normal affect Attitude: cooperative Thought Process: normal Thought Content: normal Insight: insight good Judgment: judgment good Objective Labs 11/19/24 04:28 11/19/24 04:28 Labs: Laboratory Results - last 24 hr 11/27/24 11/28/24 23:55 06:18 POC Glucose 115 109 POC Glucose Comment Glu2: cleaned meter Glu2: cleaned meter Assessment/Plan Assessment/Plan (1) Counseling regarding advance care planning and goals of care: Code(s): Z71.89 - Other specified counseling (2) Impaired mobility and activities of daily living: Code(s): Z74.09 - Other reduced mobility; Z78.9 - Other specified health status (3) Closed displaced fracture of left femoral neck: Code(s): S72.002A - Fracture of unspecified part of neck of left femur, initial encounterfor closed fracture (4) Dysphagia: Qualifiers: Dysphagia type: unspecified Qualified Code(s): R13.10 - Dysphagia, unspecified Code(s): R13.10 - Dysphagia, unspecified Plan Spent 10minutes with patient and spouse. updated on current condition and overall plan of care. Encouragement provided to patient. At this time, he would like to continue with tube feedings and aggressive care. Active listeningand support provided. All questions and concerns addressed. Code status confirmed DNRCCA without intubation. PINEDA Chopra, patient's . Will continue to follow for support. Documented By: Nica Martinez DO 11/28/24 1447 Signed By: 11/28/24 1450 [facility]03-05-20[place] [address] Hospitalist Progress Note Signed Patient: Bravo Arce MR#: [id number] : 1940 Acct:[id number] Age/Sex: 84 / M Adm Date: 5 Loc: Room: 0H8844-3 Type: ADM IN Attending Dr: Jorge Clifton MD Copies to: ~ Date of Service: 11/27/2024 Subjective Subjective Narrative: Seen and examined in follow-up with in the room. Has been doing well with physical therapy, reports minimal soreness to left hip. Scheduled to be discharged on Tuesday. Vital signs with blood pressure well-controlled, continues on tube feeding with blood sugars well-controlled. No other issues atthis time. Exam Physical Exam Vital Signs: Temp Pulse Resp BP Pulse Ox O2 Del Method O2 Flow Rate 97.3 F L 75 20 138/72 95 Room Air 1 11/27/24 06:00 11/27/24 06:00 11/27/24 06:00 11/27/24 06:00 11/27/24 06:00 11/27/24 12:00 11/23/24 00:00 FiO2 97 11/22/24 02:18 Narrative: CONST-frail, thin, alert, cooperative, sitting up in chair CARDIAC- RRR no abnormal heart tones PULM- diminished without wheeze or rhonchi, RA, no accessory muscle use or coughnoted ABD- S/NT, NABS, PEG EXTREM- no edema BLE, calves nontender SKIN-incision site occluded with dressing Objective Lab Results 11/19/24 04:28 11/19/24 04:28 Meds Allergies and Active Meds Allergies gabapentin Allergy (Unknown, Verified 11/10/24 19:15) Unknown Reaction penicillin V Allergy (Unknown, Verified 11/10/24 19:15) Unknown Reaction Penicillins Allergy (Unknown, Verified 11/10/24 19:15) Unknown Reaction haloperidol (From Haldol) Allergy (Verified 11/10/24 19:15) HYPOXIA lorazepam (From Ativan) Allergy (Verified 11/10/24 19:15) HYPOXIA ziprasidone (From Geodon) Allergy (Verified 11/10/24 19:15) HYPOXIC Active Meds: Active Medications Generic Name Dose Route Start Last Admin Trade Name Freq PRN Reason Stop Dose Admin Acetaminophen 650 mg 11/24/24 18:00 11/27/24 12:54 Acetaminophen 650 Mg/20.3 Ml Oral.Susp PEG 11/24/25 17:59 Not Given Q6H JIM Al Hydrox/Mg Hydrox/Simethicone 30 ml 11/18/24 20:47 Mag Hydrox/Al Hydrox/Simeth 30 Ml Udc PEG 11/18/25 13:58 Q4H PRN Indigestion Atorvastatin Calcium 20 mg 11/18/24 21:00 11/26/24 20:17 Atorvastatin 20 Mg Tablet PEG 11/18/25 20:59 20 mg QPM JIM Administration Bisacodyl 10 mg 11/18/24 13:59 Bisacodyl 10 Mg Supp.Rect MT 11/18/25 13:58 DAILY PRN Constipation Clopidogrel Bisulfate 75 mg 11/19/24 09:00 11/27/24 09:47 Clopidogrel Bisulfate 75 Mg Tablet PEG 11/19/25 08:59 75 mg DAILY JIM Administration Docusate Sodium 283 mg 11/18/24 13:59 Docusate Enema 283 Mg/5 Ml Enema MT 11/18/25 13:58 DAILY PRN Constipation Docusate Sodium 100 mg 11/18/24 22:48 Docusate Liquid 100 Mg/10 Ml Udc PEG 11/18/25 20:59 BID PRN constipation Enoxaparin Sodium 40 mg 11/20/24 10:00 11/27/24 09:50 Enoxaparin 40 Mg/0.4 Ml Syringe SUBCUT 11/20/25 09:59 40 mg DAILY@1000 JIM Administration Finasteride 5 mg 11/19/24 09:00 11/27/24 09:48 Finasteride 5 Mg Tablet PEG 11/19/25 08:59 5 mg DAILY JIM Administration Guaifenesin 10 ml 11/18/24 13:57 11/20/24 19:46 Guaifenesin Syrup 10 Ml Udc PEG 11/18/25 13:56 10 ml Q4HR PRN Administration congestion Lactulose 30 gm 11/18/24 20:47 Lactulose 20 Gm/30 Ml Udc PEG 11/18/25 13:58 DAILY PRN Constipation Latanoprost 1 drops 11/18/24 22:00 11/26/24 20:17 Latanoprost 0.005% Op Soln 50 Drops/2.5 Ml Bottle EYE-BOTH 11/18/25 21:59 1drops QHS [facility] Administration Lidocaine 1 patch 11/18/24 13:57 Lidocaine 4% Adh..Patch TOPICAL 11/18/25 13:56 Q12HR PRN pain Melatonin 10 mg 11/21/24 22:00 11/26/24 20:17 Melatonin 5 Mg Tablet PEG 11/21/25 21:59 10 mg QHS JIM Administration Metoprolol Tartrate 50 mg 11/18/24 21:00 11/27/24 09:47 Metoprolol Tartrate 50 Mg Tablet PEG 11/18/25 20:59 50 mg BID JIM Administration Polyethylene Glycol 17 gm 11/25/24 18:00 Polyethylene Glycol 3350 17 Gm Powd.Pack PEG 11/19/25 08:59 DAILY PRN Congestion Sennosides 17.2 mg 11/19/24 12:00 Sennosides 8.6 Mg Tablet PEG 11/19/25 11:59 DAILY@12 PRN If no BM in 2 days Sennosides 8.8 mg 11/18/24 22:00 11/26/24 20:17 Sennosides Syrup 8.8 Mg/5 Ml Udc PEG 11/18/25 21:59 8.8 mg QHS JIM Administration Sodium Chloride 0 ml 11/18/24 13:59 Sodium Chloride 0.9 % 10 Ml Syringe IV-PUSH 11/18/25 13:58 PRN PRN Flush A&P - Hospitalist Assessment/Plan (1) Dysphagia: (2) Permanent atrial fibrillation: (3) Closed displaced fracture of left femoral neck: Plan Left femoral neck fracture s/p repair 11/12 Postoperative anemia Dysphagia s/p PEG placement 11/15 hx parathyroid radiation Weakness/ debility -further plan of care per PMR team for rehab therapy, pain control & bowel regimen, DVT prophylaxis Enoxaparin -Completed doxycycline -preop hemoglobin 12.3, 10.0 on 11/19, stable continue to monitor Chronic Conditions 1. Hyperlipidemia- atorvastatin 2. CAD hx CABG, atrial fibrillation s/p left atrial appendage ligation, HFpEF- clopidogrel, Metoprolol, BP well-controlled 3. BPH with LUTS- finasteride 4. Glaucoma- latanoprost Documented By: Pratibha Wright APRN 11/27/24 1410 Signed By: 11/27/24 1617 11/28/24 1410 [facility]03-04-2025 Progress note Author Jorge Clifton [facility] Note Date/Time November 27, 2024 8:[address] [facility] [address] [place] [address] Physiatry(Rehab) Progress Note Signed Patient: Bravo Arce MR#: [id number] : 1940 Acct:[id number] Age/Sex: 84 / M Adm Date: 5 Loc: Room: [address] [place] [address] Type: ADM IN Attending Dr: Jorge Clifton MD Copies to: ~ Date of Service: 11/27/2024 Subjective Subjective Narrative: Mr. Arce is a 84 year old male with past medical history of chronic A-fib s/p left atrial appendage ligation in May 2022, on Plavix for CAD s/p CABGx 3 vessels, mitral regurg s/p repair, permanent afib with sick sinus syndrome s/p pacemaker placement, parathyroid gland neoplasm s/p treatment in remission, BPH with LUTS, GERD who presents with multifactorial functional decline in the setting of left femoral neck fracture s/p femoral neck repair. He recently had a prolonged hospitalization. He presented to [facility] about 3 weeks ago after his witnessed an episode where he went blank and froze . She witnessed the event and lowered him to the floor per her report. He was intubated on the ambulance ride to [facility]. He was extubated after 48 hours. She tells me he was worked up for stroke or seizure, and was transferred to [facility] at family request after having a bad reaction to Geodon prompting reintubation. He was again subsequently extubated at after 2-3 days. She says the doctors at told her they did not have any answer as to the initial episode prompting his presentation to [facility]. She tells me that he has had 4 or 5 of these episodes over the past 20 years. He was unable to have an MRI due to incompatible pacemaker. [facility] to detention facility where hehad persistent hip pain. reports no trauma, but notes he has been having nagging hip pain since July. She reports urging the detention facility to do an x- ray which demonstrated right femoral neck fracture. He is now s/p femoral neck repair. He is also s/p PEG placement due to dysphagia Interval history: Seen and evaluated today. FI went well today with spouse. Discussed discharge planning. Plan for DC home this Tuesday. Discussed tube feeds and nutrition todaywith the patient. Palliative care also met with patient later in the day. All questions answered. Review of Systems Review of Systems All other systems reviewed & are negative unless noted below or in HPI Exam Physical Exam Vital Signs: Temp Pulse Resp BP Pulse Ox O2 Del Method O2 Flow Rate 98.2 F 94 20 124/74 94 L Room Air 1 11/27/24 20:36 11/27/24 20:36 11/27/24 20:36 11/27/24 20:36 11/27/24 20:36 11/27/24 20:36 11/23/24 00:00 FiO2 97 11/22/24 02:18 Narrative: Pleasant NAD Extremities well perfused No respiratory distress PEG tube in place. Abdomen soft, non distended Left lower extremity limited by pain. Otherwise moving all limbs spontaneously Minimal edema Objective Labs 11/19/24 04:28 11/19/24 04:28 Labs: Laboratory Results - last 24 hr 11/26/24 11/27/2425 23:24 05:52 11:41 POC Glucose 120 104 95 POC Glucose Comment Glu2: cleaned meter Glu2: cleaned meter Glu2: cleaned meter Medications and Allergies Allergies and Active Meds: Allergies gabapentin Allergy (Unknown, Verified 11/10/24 19:15) Unknown Reaction penicillin V Allergy (Unknown, Verified 11/10/24 19:15) Unknown Reaction Penicillins Allergy (Unknown, Verified 11/10/24 19:15) Unknown Reaction haloperidol (From Haldol) Allergy (Verified 11/10/24 19:15) HYPOXIA lorazepam (From Ativan) Allergy (Verified 11/10/24 19:15) HYPOXIA ziprasidone (From Geodon) Allergy (Verified 11/10/24 19:15) HYPOXIC Active Medications Generic Name Dose Route Start Last Admin Trade Name Freq PRN Reason Stop Dose Admin Acetaminophen 650 mg 11/24/24 18:00 11/27/24 18:04 Acetaminophen 650 Mg/20.3 Ml Oral.Susp PEG 11/24/25 17:59 Not Given Q6H JIM Al Hydrox/Mg Hydrox/Simethicone 30 ml 11/18/24 20:47 Mag Hydrox/Al Hydrox/Simeth 30 Ml Udc PEG 11/18/25 13:58 Q4H PRN Indigestion Atorvastatin Calcium 20 mg 11/18/24 21:00 11/27/24 20:40 Atorvastatin 20 Mg Tablet PEG 11/18/25 20:59 20 mg QPM JIM Administration Bisacodyl 10 mg 11/18/24 13:59 Bisacodyl 10 Mg Supp.Rect MT 11/18/25 13:58 DAILY PRN Constipation Clopidogrel Bisulfate 75 mg 11/19/24 09:00 11/27/24 09:47 Clopidogrel Bisulfate 75 Mg Tablet PEG 11/19/25 08:59 75 mg DAILY JIM Administration Docusate Sodium 283 mg 11/18/24 13:59 Docusate Enema 283 Mg/5 Ml Enema MT 11/18/25 13:58 DAILY PRN Constipation Docusate Sodium 100 mg 11/18/24 22:48 Docusate Liquid 100 Mg/10 Ml Udc PEG 11/18/25 20:59 BID PRN constipation Enoxaparin Sodium 40 mg 11/20/24 10:00 11/27/24 09:50 Enoxaparin 40 Mg/0.4 Ml Syringe SUBCUT 11/20/25 09:59 40 mg DAILY@1000 JIM Administration Finasteride 5 mg 11/19/24 09:00 11/27/24 09:48 Finasteride 5 Mg Tablet PEG 11/19/25 08:59 5 mg DAILY JIM Administration Guaifenesin 10 ml 11/18/24 13:57 11/20/24 19:46 Guaifenesin Syrup 10 Ml Udc PEG 11/18/25 13:56 10 ml Q4HR PRN Administration congestion Lactulose 30 gm 11/18/24 20:47 Lactulose 20 Gm/30 Ml Udc PEG 11/18/25 13:58 DAILY PRN Constipation Latanoprost 1 drops 11/18/24 22:00 11/27/24 20:51 Latanoprost 0.005% Op Soln 50 Drops/2.5 Ml Bottle EYE-BOTH 11/18/25 21:59 1drops QHS JIM Administration Lidocaine 1 patch 11/18/24 13:57 Lidocaine 4% Adh..Patch TOPICAL 11/18/25 13:56 Q12HR PRN pain Melatonin 10 mg 11/21/24 22:00 11/27/24 20:40 Melatonin 5 Mg Tablet PEG 11/21/25 21:59 10 mg QHS JIM Administration Metoprolol Tartrate 50 mg 11/18/24 21:00 11/27/24 20:40 Metoprolol Tartrate 50 Mg Tablet PEG 11/18/25 20:59 50 mg BID JIM Administration Polyethylene Glycol 17 gm 11/25/24 18:00 Polyethylene Glycol 3350 17 Gm Powd.Pack PEG 11/19/25 08:59 DAILY PRN Congestion Sennosides 17.2 mg 11/19/24 12:00 Sennosides 8.6 Mg Tablet PEG 11/19/25 11:59 DAILY@12 PRN If no BM in 2 days Sennosides 8.8 mg 11/18/24 22:00 11/27/24 20:43 Sennosides Syrup 8.8 Mg/5 Ml Udc PEG 11/18/25 21:59 8.8 mg QHS JIM Administration Sodium Chloride 0 ml 11/18/24 13:59 Sodium Chloride 0.9 % 10 Ml Syringe IV-PUSH 11/18/25 13:58 PRN PRN Flush Assessment/Plan Assessment/Plan (1) Closed displaced fracture of left femoral neck: (2) Dysphagia: Qualifiers: Dysphagia type: unspecified Qualified Code(s): R13.10 - Dysphagia, unspecified (3) Permanent atrial fibrillation: (4) Sick sinus syndrome: (5) S/P CABG x 3: (6) Mild left ventricular systolic dysfunction: (7) Status post placement of cardiac pacemaker: (8) Severe protein-calorie malnutrition: (9) Impaired mobility and activities of daily living: Plan This is a 84-year-old male who [facility] multifactorial functional decline in the setting of left femoral neck fracture s/p repair. He has continued impaired mobility and impaired independence with ADLs and IADLs requiring PT/OT/RELATIONSHIP ASSOCIATE 5-7 days/week 3 hours/day to maximize safety and independence with functional ability and self-care. -PT to improve patient's strength, endurance, bed mobility, transfers (sit- stand), standing balance, gait quality on level surfaces and stairs, coordination and functional ADL skills. We will also work to improve patient's safety awareness during transfers and ambulation. -OT for basic ADL retraining (bathing, dressing, toileting, continence, grooming, feeding, transferring), to increase activity tolerance and functional mobility to evaluate for adaptive assistive device. We will work to improve patient's endurance and educate patient on fall prevention and energy conservation techniques-pacing strategies and proper breathing techniques duringfunctional tasks. -Patient education -Pressure ulcer prophylaxis; encourage mobilization, frequent postural changes, pressure-relief techniques -DVT prophylaxis -Encourage deep breathing exercise incentive spirometry. -Monitor bladder. Toileting schedule. Continue current bladder management, with scans as needed and CIC if needed. Start bowel care program every day to obtain continence, prevent ileus. -Maintain fall precautions -Gait and balance retraining -Provision of the necessary gait aids and functional adaptive equipment to enhance the patient's a functional voodoo -Encourage deep breathing exercises and incentive spirometry -RD evaluation -Ensure adequate nutrition and hydration -Discharge planning. #. UPDATES -No new concerns today -FI went well. Plan for DC home this Tuesday -Continue current management -Watch pressure ulcer. -Continue PT/OT/ST as ordered -Hospitalist to assist with management of comorbid medical conditions #. Pain control: Tylenol scheduled #. Bowel and bladder: Continent of Bowel/bladder #. Skin: (pressure ulcer/surgical site) Pressure ulcer prophylaxis; encourage mobilization, frequent postural changes, pressure-relief techniques. OK to add Ventress salve. Can also use donut cushion when up in wheelchair if this is more comfortable #. Sleep: Optimize sleep/wake cycle DVT prophylaxis: Lovenox 40 mg daily Functional status: Impaired. Limited by pain, weakness Discharge planning: [facility] 1-2 weeks Advance care planning discussed with patient. Patient would like to be made DNR- CCA without intubation. Order placed. Patient was personally seen by me, Dr. Clifton, on the day of encounter, reviewed the history and the relevant portions of the chart, including current orders, allied health and product consultant notes, labs/imaging and performed bales elements of exam and I formulated the plan of care and facilitated the medical decision making. I completed a substantive portion of this encounter, the medical decision makingportion of this note in its entirety, including Allied health note review, nursing note review, product consultant note review, discussion with nursing and case management, and more than 50% of my time was spent on counseling and coordination of care, time spent 30 minutes Documented By: Jorge Clifton MD [id number] Signed By: <Electronically signed by Jorge Clifton MD> 11/27/241 [facility] Work Phone: [phone]) 593-846003-04-2025 [place] [address] Physiatry(Rehab) Progress Note Signed Patient: Bravo Arce MR#: [id number] : 1940 Acct:[id number] Age/Sex: 84 / M Adm Date: 5 Loc: Room: [address] [place] [address] Type: ADM IN Attending Dr: Jorge Clifton MD Copies to: ~ Date of Service: 11/27/2024 Subjective Subjective Narrative: Mr. Arce is a 84 year old male with past medical history of chronic A-fib s/p left atrial appendage ligation in May 2022, on Plavix for CAD s/p CABGx 3 vessels, mitral regurg s/p repair, permanent afib with sick sinus syndrome s/p pacemaker placement, parathyroid gland neoplasm s/p treatment in remission, BPH with LUTS, GERD who presents with multifactorial functional decline in the setting of left femoral neck fracture s/p femoral neck repair. He recently had a prolonged hospitalization. He presented to [facility] about 3 weeks ago after his witnessed an episode where he went blank and froze . She witnessed the event and lowered him to the floor per her report. He was intubated on the ambulance ride to [facility]. He was extubated after 48 hours. She tells me he was worked up for stroke or seizure, and was transferred to [facility] at family request after having a bad reaction to Geodon prompting reintubation. He was again subsequently extubated at after 2-3 days. She says the doctors at told her they did not have any answer as to the initial episode prompting his presentation to [facility]. She tells me that he has had 4 or 5 of these episodes over the past 20 years. He was unable to have an MRI due to incompatible pacemaker. [facility] to detention facility where hehad persistent hip pain. reports no trauma, but notes he has been having nagging hip pain since July. She reports urging the detention facility to do an x-ray which demonstrated right femoral neck fracture. He is now s/p femoral neck repair. He is also s/p PEG placement due to dysphagia Interval history: Seen and evaluated today. FI went well today with spouse. Discussed discharge planning. Plan for DChome this Tuesday. Discussed tube feeds and nutrition todaywith the patient. Palliative care also met with patient later in the day. All questions answered. Review of Systems Review of Systems All other systems reviewed & are negative unless noted below or in HPI Exam Physical Exam Vital Signs: Temp Pulse Resp BP Pulse Ox O2 Del Method O2 Flow Rate 98.2 F 94 20 124/74 94 L Room Air 1 11/27/24 20:36 11/27/24 20:36 11/27/24 20:36 11/27/24 20:36 11/27/24 20:36 11/27/24 20:36 11/23/24 00:00 FiO2 97 11/22/24 02:18 Narrative: Pleasant NAD Extremities well perfused No respiratory distress PEG tube in place. Abdomen soft, non distended Left lower extremity limited by pain. Otherwise moving all limbs spontaneously Minimal edema Objective Labs 11/19/24 04:28 11/19/24 04:28 Labs: Laboratory Results - last 24 hr 11/26/24 11/27/24 11/27/24 23:24 05:52 11:41 POC Glucose 120 104 95 POC Glucose Comment Glu2: cleaned meter Glu2: cleaned meter Glu2: cleaned meter Medications and Allergies Allergies and Active Meds: Allergies gabapentin Allergy (Unknown, Verified 11/10/24 19:15) Unknown Reaction penicillin V Allergy (Unknown, Verified 11/10/24 19:15) Unknown Reaction Penicillins Allergy (Unknown, Verified 11/10/24 19:15) Unknown Reaction haloperidol (From Haldol) Allergy (Verified 11/10/24 19:15) HYPOXIA lorazepam (From Ativan) Allergy (Verified 11/10/24 19:15) HYPOXIA ziprasidone (From Geodon) Allergy (Verified 11/10/24 19:15) HYPOXIC Active Medications Generic Name Dose Route Start Last Admin Trade Name Freq PRN Reason Stop Dose Admin Acetaminophen 650 mg 11/24/24 18:00 11/27/24 18:04 Acetaminophen 650 Mg/20.3 Ml Oral.Susp PEG 11/24/25 17:59 Not Given Q6H JMI Al Hydrox/Mg Hydrox/Simethicone 30 ml 11/18/24 20:47 Mag Hydrox/Al Hydrox/Simeth 30 Ml Udc PEG 11/18/25 13:58 Q4H PRN Indigestion Atorvastatin Calcium 20 mg 11/18/24 21:00 11/27/24 20:40 Atorvastatin 20 Mg Tablet PEG 11/18/25 20:59 20 mg QPM JIM Administration Bisacodyl 10 mg 11/18/24 13:59 Bisacodyl 10 Mg Supp.Rect MT 11/18/25 13:58 DAILY PRN Constipation Clopidogrel Bisulfate 75 mg 11/19/24 09:00 11/27/24 09:47 Clopidogrel Bisulfate 75 Mg Tablet PEG 11/19/25 08:59 75 mg DAILY JIM Administration Docusate Sodium 283 mg 11/18/24 13:59 Docusate Enema 283 Mg/5 Ml Enema MT 11/18/25 13:58 DAILY PRN Constipation Docusate Sodium 100 mg 11/18/24 22:48 Docusate Liquid 100 Mg/10 Ml Udc PEG 11/18/25 20:59 BID PRN constipation Enoxaparin Sodium 40 mg 11/20/24 10:00 11/27/24 09:50 Enoxaparin 40 Mg/0.4 Ml Syringe SUBCUT 11/20/25 09:59 40 mg DAILY@1000 JIM Administration Finasteride 5 mg 11/19/24 09:00 11/27/24 09:48 Finasteride 5 Mg Tablet PEG 11/19/25 08:59 5 mg DAILY JIM Administration Guaifenesin 10 ml 11/18/24 13:57 11/20/24 19:46 Guaifenesin Syrup 10 Ml Udc PEG 11/18/25 13:56 10 ml Q4HR PRN Administration congestion Lactulose 30 gm 11/18/24 20:47 Lactulose 20 Gm/30 Ml Udc PEG 11/18/25 13:58 DAILY PRN Constipation Latanoprost 1 drops 11/18/24 22:00 11/27/24 20:51 Latanoprost 0.005% Op Soln 50 Drops/2.5 Ml Bottle EYE-BOTH 11/18/25 21:59 1drops QHS JIM Administration Lidocaine 1 patch 11/18/24 13:57 Lidocaine 4% Adh..Patch TOPICAL 11/18/25 13:56 Q12HR PRN pain Melatonin 10 mg 11/21/24 22:00 11/27/24 20:40 Melatonin 5 Mg Tablet PEG 11/21/25 21:59 10 mg QHS JIM Administration Metoprolol Tartrate 50 mg 11/18/24 21:00 11/27/24 20:40 Metoprolol Tartrate 50 Mg Tablet PEG 11/18/25 20:59 50 mg BID JIM Administration Polyethylene Glycol 17 gm 11/25/24 18:00 Polyethylene Glycol 3350 17 Gm Powd.Pack PEG 11/19/25 08:59 DAILY PRN Congestion Sennosides 17.2 mg 11/19/24 12:00 Sennosides 8.6 Mg Tablet PEG 11/19/25 11:59 DAILY@12 PRN If no BM in 2 days Sennosides 8.8 mg 11/18/24 22:00 11/27/24 20:43 Sennosides Syrup 8.8 Mg/5 Ml Udc PEG 11/18/25 21:59 8.8 mg QHS JIM Administration Sodium Chloride 0 ml 11/18/24 13:59 Sodium Chloride 0.9 % 10 Ml Syringe IV-PUSH 11/18/25 13:58 PRN PRN Flush Assessment/Plan Assessment/Plan (1) Closed displaced fracture of left femoral neck: (2) Dysphagia: Qualifiers: Dysphagia type: unspecified Qualified Code(s): R13.10 - Dysphagia, unspecified (3) Permanent atrial fibrillation: (4) Sick sinus syndrome: (5) S/P CABG x 3: (6) Mild left ventricular systolic dysfunction: (7) Status post placement of cardiac pacemaker: (8) Severe protein-calorie malnutrition: (9) Impaired mobility and activities of daily living: Plan This is a 84-year-old male who [facility] IRFdue to multifactorial functional decline in the setting of left femoral neck fracture s/p repair. He has continued impaired mobility and impaired independence with ADLs and IADLs requiring PT/OT/RELATIONSHIP ASSOCIATE 5-7 days/week 3 hours/day to maximize safety and independence with functional ability and self-care. -PT to improve patient's strength, endurance, bed mobility, transfers (sit- stand), standing balance, gait quality on level surfaces and stairs, coordination and functional ADL skills. We will also work to improve patient's safety awareness during transfers and ambulation. -OT for basic ADL retraining (bathing, dressing, toileting, continence, grooming, feeding, transferring), to increase activity tolerance and functional mobility to evaluate for adaptive assistive device. We will work to improve patient's endurance and educate patient on fall prevention and energy co nservation techniques-pacing strategies and proper breathing techniques duringfunctional tasks. -Patient education -Pressure ulcer prophylaxis; encourage mobilization, frequent postural changes, pressure-relief techniques -DVT prophylaxis -Encourage deep breathing exercise incentive spirometry. -Monitor bladder. Toileting schedule. Continue current bladder management, with scans as needed andCIC if needed. Start bowel care program every day to obtain continence, prevent ileus. -Maintain fall precautions -Gait and balance retraining -Provision of the necessary gait aids and functional adaptive equipment to enhance the patient's a functional voodoo -Encourage deep breathing exercises and incentive spirometry -RD evaluation -Ensure adequate nutrition and hydration -Discharge planning. #. UPDATES -No new concerns today -FI went well. Plan for DC home this Tuesday -Continue current management -Watch pressure ulcer. -Continue PT/OT/ST as ordered -Hospitalist to assist with management of comorbid medical conditions #. Pain control: Tylenol scheduled #. Bowel and bladder: Continent of Bowel/bladder #. Skin: (pressure ulcer/surgical site) Pressure ulcer prophylaxis; encourage mobilization, frequent postural changes, pressure-relief techniques. OK to add Ventress salve. Can also use donut cushion when up in wheelchair if this is more comfortable #. Sleep: Optimize sleep/wake cycle DVT prophylaxis: Lovenox 40 mg daily Functional status: Impaired. Limited by pain, weakness Discharge planning: ELOS 1-2 weeks Advance care planning discussed with patient. Patient would like to be made DNR- CCA without intubation. Order placed. Patient was personally seen by me, Dr. Clifton, on the day of encounter, reviewed the history and the relevant portions of the chart, including current orders, allied health and product consultant notes, labs/imaging and performed bales elements of exam and I formulated the plan of care and facilitated the medical decision making. I completed a substantive portion of this encounter, the medical decision makingportion of this note in its entirety, including Allied health note review, nursing note review, product consultant note review,discussion with nursing and case management, and more than 50% of my time was spent on counseling and coordination of care, time spent 30 minutes Documented By: Jorge Clifton MD [id number] Signed By: 11/27/242110 [facility]03-04-2025 Consult note Author Nica Martinez [facility] Note Date/Time November 27, 2024 2:[address] [facility] [address] [place] [address] Palliative Care Consult Note Signed Patient: Bravo Arce MR#: [id number] : 1940 Acct:[id number] Age/Sex: 84 / M Adm Date: 5 Loc: Room: [address] [place] [address] Type: ADM IN Attending Dr: Jorge Clifton MD Copies to: DO Jorge Diane MD Marcia E Braun, MD~ HPI Data of Consult Date of Consult: 11/27/2024 Requesting Physician: Jorge Clifton MD Primary Care Provider: Mylene Dunn MD Consult Narrative Reason for Consult: goals of care HPI: Mr Arce has a history of of chronic A-fib s/p left atrial appendage ligationin May 2022, on Plavix for CAD s/p CABG x 3 vessels, mitral regurg s/p repair, sick sinus syndrome s/p pacemaker placement, BPH with LUTS, GERD and history of skin cancer with neck dissection in 2018 who presented to the ER on 11/10 with left hip pain for the previous 3 weeks. Patient did have a significant fall with possible syncope at the time when pain started. Of note, after initial fall, he did present to outside ER with unresponsiveness, acute hematuria, and developed acute respiratory failure. He was intubated, admitted to ICU, placed on continuous bladder irrigation, and required Levophed. Evaluated by neurology. EEE was negative. He did stabilize and was successfully extubated. He transferred to regular floor but developed metabolicencephalopathy. Became hypoxic, noted to have ventricular tachycardia, and required re-intubation. Transferred back to ICU and started on amiodarone drip.At this point, he was transferred to [place] to [facility] hospital. He again was able to improve, extubated safely. Does have history of dysphagia but was noted worse after requiring intubation twice. PEG tube was being considered buthe was discharged to SNF for therapy. Discussions regarding PEG tube were continued while at SNF but fortunately, he was able to maintain nutritional nees. While at rehab, patient was having difficulty standing from seated position related to hip pain, prompting xray. He had outpatient xray performed at [facility] facility showing acute subcapital femoral neck fracture and was sent to the ER on 11/10. In the ER, his vitals were stable. Labs unremarkable. Chest x-ray was negative for acute pathologybut did show some cardiomegaly. Orthopedics was consulted, updated pelvis and femur xrays showing Displaced subcapital hip fracture on the left. The right hip arthroplasty and acetabular fixation hardware. There lumbar and SI joint degenerative changes . Recommended admission with plans for surgery. He was admitted for left hip fracture. Cardiology was consulted for pre-operative CV risk assessment given patient's cardiac history. Patient was felt to be optimized and cleared for surgery. Patient had open treatment of femoral neck fracture with prosthetic replacement performed on 11/12. No complications from surgery. However, patient developed worsening dysphagia during hospitalization. Completed MBS on 11/14 with significant dysphagia, with ST recommending NPO. General surgery was consulted and recommended PEG placement. Surgery with PEg placement was performed on 11/16 without complication. Patient remained stable throughout hospitalization. Was evaluated by PMR and recommended inpatient rehab. he was transferred up to inpatient rehab on 11/19. Patient has made progress with therapy regarding mobility and ability to complete his ADLs/IADLS. unfortunately, his dysphagia has persisted. He had an updated MBS performed on11/26 showing min oral and mod-severe pharyngeal phase dysphagia. Aspiration/penetration observed following thin and nectar thick liquids by spoon, with penetration noted w/ honey thick and puree consistencies. Postural changes and strategies did not improve airway protection. Pt w/ only intermittent sensation of penetration/aspiration. Significant laryngeal and vallecular residuals remained post swallow. Speech recommendation of NPO with utilizatino of PEG for meds and nutrition. He does seem to be tolerating tube feeds without issue. Patient has expressed frustration with prolonged hospitalization and swallowing concerns. Palliative care has been consulted to assist with goals of care. Patient sitting in chair. Patient's Smitha is at bedside. Patient states overall he is doing okay. His pain is doing well. Denies pain when he is at rest. Does become slightly sore with any activity. Physical therapy is going well. He denies shortness of breath at rest. Was previously wearing oxygen during hospitalization but is no longer requiring it. States he is doingokay without it. Does have some exertional dyspnea but states it is similar to how he feels when he is at home. He denies any chest pain. He did have an episode of nausea the other day. Denies any further episodes or vomiting. Feels like he is tolerating tube feeds without issues. Denies dizziness or lightheadedness. States he is sleeping okay off-and-on but the bed is uncomfortable. notes he has napped throughout the day at times. Patient expresses being frustrated by being in the hospital for so long. He is typically a very active patrizia and being limited in his mobility has been very difficult. He is also very frustrated with his limited diet and speech recommendations. Patient lives in [place]. He is originally from there and has lived there his whole life. He is to his Smitha. They have been together for 25years. They were introduced by Bravo's daughter. He has have 2 children boy and a girl. Smitha also has 2 children. Some of their children live nearby. They have a close relationship with their family. They have 5 grandkids and 2 great grandkids. Patient is Shinto and has a strong tres. His Smitha is Taoist. She states his tres is one of the things attracted her to him. Because they are different religions, they alternate going to each other's episcopalian. He attends [employer] while she attends [employer]. 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 Patient enjoys classic cars and attending car shoes. He has 3 classic cars that he has built in his garage. heshares this hobby with his son. His favorite cars are [employer]. He also enjoys building engines. States in the past, he enjoyed drag racing cars. 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 Smitha states they are both very active in [facility] and have been on committees to support the town. He also enjoys lawncare and gardening. Sean states he has had swallowing issues for a very long time, even before his neck dissection in 2018. States both of his kids have similar swallowing concerns. Patient states he may never gain significant swallowing back. Discussed tube feeding vs comfort care measures with pleasure feeding. Reviewed that he is tolerating tube feedings, gaining weight, doing well with PT. Patient feels frustrated by speech therapy and want to make sure they are not keeping him NPO for marginal reasons. Reviewed MBS showing moderate to severe dysphagia as well as silent aspiration. Encouraged that he may improve with continued therapy at home. Also discussed he may improve to eat soft foods but need tube feeding for nutritional support. Patient states he eats to live but not live to eat and has always been that way. He feels he can live off tube feedings if he is still able to have a good quality of life. Reviewed because he is bolus feeding, he should be able to live a normal life with tube feedings. Stated he will be able to live off tube feeding up to a certain point. Reviewed that he is the only one who can decide what that limit is. Reviewed comfort care measures with pleasure feeding if he no longer wanted to just tube feed or stop working with therapies. He currently does not feel that he is ready to stop aggressive care. HPOA is his Smitha. not currently on file but encouraged to bring paperwork to confidential secretary desk to upload into chart. Also reviewed resuscitation preferences. Patient confirms his decision of DNRCCA without intubation. 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 BPH (benign prostatic hyperplasia) Afib Hyperlipidemia Malignant neoplasm of parathyroid gland Dysphagia COPD (chronic obstructive pulmonary disease) Acute respiratory failure GERD (gastroesophageal reflux disease) FH: cholecystectomy Broken hip Permanent atrial fibrillation Hypocalcemia History of head and neck cancer Hernia Essential hypertension Cellulitis of left lower extremity Benign paroxysmal positional vertigo, bilateral ASHD (arteriosclerotic heart disease) Apnea, sleep Anemia of chronic disease Surgical History (Updated 11/26/24 @ 00:01 by Elio Boogie) History of right hip replacement Status cardiac pacemaker Mitral valve replaced Family History Father Mother Social History Smoking Status: Never smoker Substance Use Type: None Allergies & Medications Medications and Allergies Allergies gabapentin Allergy (Unknown, Verified 11/10/24 19:15) Unknown Reaction penicillin V Allergy (Unknown, Verified 11/10/24 19:15) Unknown Reaction Penicillins Allergy (Unknown, Verified 11/10/24 19:15) Unknown Reaction haloperidol (From Haldol) Allergy (Verified 11/10/24 19:15) HYPOXIA lorazepam (From Ativan) Allergy (Verified 11/10/24 19:15) HYPOXIA ziprasidone (From Geodon) Allergy (Verified 11/10/24 19:15) HYPOXIC Home Medications metoprolol tartrate 50 mg tablet 50 mg feeding tube BID 01/09/18 [History Confirmed 11/18/24] clopidogrel 75 mg tablet 75 mg feeding tube DAILY 07/12/24 [History Confirmed 11/18/24] latanoprost 0.005 % eye drops 1 drp ophthalmic (eye) QHS 07/12/24 [History Confirmed 11/18/24] acetaminophen 325 mg capsule 975 mg feeding tube TID PRN pain 11/10/24 [History Confirmed 11/18/24] atorvastatin 20 mg tablet 20 mg feeding tube QPM 11/10/24 [History Confirmed 11/18/24] guaifenesin 100 mg/5 mL oral liquid 200 mg feeding tube Q4HR PRN congestion 11/10/24 [History Confirmed 11/18/24] lidocaine 4 % topical patch (Aspercreme (lidocaine)) 1 patch topical Q12HR PRN pain 11/10/24 [History Confirmed 11/18/24] melatonin 5 mg capsule 5 mg feeding tube QHS 11/10/24 [History Confirmed 11/18/24] polyethylene glycol 3350 17 gram oral powder packet (Miralax) 17 g feeding tube DAILY 11/10/24 [History Confirmed 11/18/24] sennosides 8.6 mg capsule (senna) 17.2 mg feeding tube QHS 11/10/24 [History Confirmed 11/18/24] docusate sodium 50 mg/5 mL oral liquid 100 mg (10 mL) PO BID 30 days #600 mL 11/18/24 [Rx Confirmed 11/18/24] doxycycline hyclate 100 mg capsule 100 mg PO BID #4 caps 11/18/24 [Rx Confirmed 11/18/24] finasteride 5 mg tablet 5 mg PO .GTUBE 30 days #0 tabs 11/18/24 [Rx Confirmed 11/18/24] Active Medications Acetaminophen (Acetaminophen 650 Mg/20.3 Ml Oral.Susp) 650 mg PEG Q6H [facility] Stop: 11/24/25 17:59 Last Admin: 11/27/24 06:02 Dose: 650 mg Al Hydrox/Mg Hydrox/Simethicone (Mag Hydrox/Al Hydrox/Simeth 30 Ml Udc) 30 ml PEG Q4H PRN PRN Reason: Indigestion Stop: 11/18/25 13:58 Atorvastatin Calcium (Atorvastatin 20 Mg Tablet) 20 mg PEG QPM JIM Stop: 11/18/25 20:59 Last Admin: 11/26/24 20:17 Dose: 20 mg Bisacodyl (Bisacodyl 10 Mg Supp.Rect) 10 mg MT DAILY PRN PRN Reason: Constipation Stop: 11/18/25 13:58 Clopidogrel Bisulfate (Clopidogrel Bisulfate 75 Mg Tablet) 75 mg PEG DAILY [facility] Stop: 11/19/25 08:59 Last Admin: 11/27/24 09:47 Dose: 75 mg Docusate Sodium (Docusate Enema 283 Mg/5 Ml Enema) 283 mg MT DAILY PRN PRN Reason: Constipation Stop: 11/18/25 13:58 Docusate Sodium (Docusate Liquid 100 Mg/10 Ml Udc) 100 mg PEG BID PRN PRN Reason: constipation Stop: 11/18/25 20:59 Enoxaparin Sodium (Enoxaparin 40 Mg/0.4 Ml Syringe) 40 mg SUBCUT DAILY@1000 [facility] Stop: 11/20/25 09:59 Last Admin: 11/27/24 09:50 Dose: 40 mg Finasteride (Finasteride 5 Mg Tablet) 5 mg PEG DAILY JIM Stop: 11/19/25 08:59 Last Admin: 11/27/24 09:48 Dose: 5 mg Guaifenesin (Guaifenesin Syrup 10 Ml Udc) 10 ml PEG Q4HR PRN PRN Reason: congestion Stop: 11/18/25 13:56 Last Admin: 11/20/24 19:46 Dose: 10 ml Lactulose (Lactulose 20 Gm/30 Ml Udc) 30 gm PEG DAILY PRN PRN Reason: Constipation Stop: 11/18/25 13:58 Latanoprost (Latanoprost 0.005% Op Soln 50 Drops/2.5 Ml Bottle) 1 drops EYE-BOTH QHS [facility] Stop: 11/18/25 21:59 Last Admin: 11/26/24 20:17 Dose: 1 drops Lidocaine (Lidocaine 4% Adh..Patch) 1 patch TOPICAL Q12HR PRN PRN Reason: pain Stop: 11/18/25 13:56 Melatonin (Melatonin 5 Mg Tablet) 10 mg PEG QHS [facility] Stop: 11/21/25 21:59 Last Admin: 11/26/24 20:17 Dose: 10 mg Metoprolol Tartrate (Metoprolol Tartrate 50 Mg Tablet) 50 mg PEG BID [facility] Stop: 11/18/25 20:59 Last Admin: 11/27/24 09:47 Dose: 50 mg Polyethylene Glycol (Polyethylene Glycol 3350 17 Gm Powd.Pack) 17 gm PEG DAILY PRN PRN Reason: Congestion Stop: 11/19/25 08:59 Sennosides (Sennosides 8.6 Mg Tablet) 17.2 mg PEG DAILY@12 PRN PRN Reason: If no BM in 2 days Stop: 11/19/25 11:59 Sennosides (Sennosides Syrup 8.8 Mg/5 Ml Udc) 8.8 mg PEG QHS JIM Stop: 11/18/25 21:59 Last Admin: 11/26/24 20:17 Dose: 8.8 mg Sodium Chloride (Sodium Chloride 0.9 % 10 Ml Syringe) 0 ml IV-PUSH PRN PRN PRN Reason: Flush Stop: 11/18/25 13:58 Exam Physical Exam Vital Signs: Temp Pulse Resp BP Pulse Ox O2 Del Method O2 Flow Rate 97.3 F L 75 20 138/72 95 Room Air 1 11/27/24 06:00 11/27/24 06:00 11/27/24 06:00 11/27/24 06:00 11/27/24 06:00 11/27/24 06:00 11/23/24 00:00 FiO2 97 11/22/24 02:18 Const General: comfortable, frail appearing and not ill appearing Nutritional Appearance: average body habitus and thin Orientation: alert, awake and oriented x3 Limitations: mental status not altered HEENT Ears: hearing grossly normal bilaterally Nose: external nose normal Mouth: oral mucosae normal Teeth and gingiva: dentition normal Other: temporal wasting Eyes Pupils: PERRL EOM: EOM intact bilaterally Other: wearing glasses Resp Effort & Inspection: normal respiratory effort and not tachypneic Auscultation: clear to auscultation bilaterally, no rales, no rhonchi and no wheezes Cardio Rate: regular rate Rhythm: regular rhythm Heart Sounds: S1 normal and S2 normal GI Palpation: soft, not firm and no guarding Other: PEG tube in place without erythema or discharge Musc Other: muscle wasting Skin General: no rashes or lesions noted Neuro General: patient alert, patient awake and moves all extremities Cranial Nerves: CN's II-XII intact bilaterally Cognition: normal cognition Speech: speech normal Extrem General: no edema Psych Appearance: grossly normal Mood: congruent mood Affect: normal affect Attitude: cooperative Thought Process: normal Thought Content: normal Insight: insight good Judgment: judgment good Results - Palliative Care Labs 11/19/24 04:28 11/19/24 04:28 Labs: Laboratory Last Values Corrected WBC 5.8 X10E3/uL (4.1-10.5) 11/19/24 04:28 Uncorrected WBC Count 5.8 x10E3/uL (4.1-10.5) 11/19/24 04:28 RBC 3.22 x10E6/uL (3.90-5.60) L 11/19/24 04:28 Hgb 10.0 g/dL (13.0-17.0) L 11/19/24 04:28 Hct 29.6 % (38.8-50.0) L 11/19/24 04:28 MCV 92.0 fl (83.5-101) 11/19/24 04:28 MCH 31.2 pg (27.5-35.2) 11/19/24 04:28 MCHC 33.9 g/dL (32.5-35.6) 11/19/24 04:28 RDW 16.4 % (12.0-14.8) H 11/19/24 04:28 Plt Count 158 x10E3/uL (150-450) 11/19/24 04:28 MPV 8.1 fl (6.6-10.1) 11/19/24 04:28 Neut % (Auto) 65.8 % (.) 11/19/24 04:28 Lymph % (Auto) 16.0 % (.) 11/19/24 04:28 [place] % (Auto) 13.3 % (.) 11/19/24 04:28 Eos % (Auto) 4.4 % (.) 11/19/24 04:28 Baso % (Auto) 0.5 % (.) 11/19/24 04:28 Nucleat RBC Rel Count 0.1 /100 WBC (0-0.5) 11/19/24 04:28 Neut # (Auto) 3.8 x10E3/uL (1.8-7.7) 11/19/24 04:28 Lymph # (Auto) 0.9 x10E3/uL (1.00-4.8) L 11/19/24 04:28 [place] # (Auto) 0.8 x10E3/uL (0.0-0.8) 11/19/24 04:28 Eos # (Auto) 0.3 x10E3/uL (0.0-0.45) 11/19/24 04:28 Baso # (Auto) 0.0 x10E3/uL (0.0-0.2) 11/19/24 04:28 PHA Creatinine Clear 78.14 02/24/25 04:28 Sodium 136 mmol/L (136-145) 11/19/24 04:28 Potassium 4.1 mmol/L (3.5-5.1) 11/19/24 04:28 Chloride 102 mmol/L (98-107) 11/19/24 04:28 Carbon Dioxide 29.7 mmol/L (21.0-31.0) 11/19/24 04:28 Anion Gap 8.4 mEq/L (6.0-15.0) 11/19/24 04:28 BUN 16 mg/dL (7-25) 11/19/24 04:28 Creatinine 0.53 mg/dL (0.70-1.30) L 11/19/24 04:28 Est GFR (CKD-EPI) > 60.0 mL/Min 11/19/24 04:28 Glucose 118 mg/dL (70-100) H 11/19/24 04:28 POC Glucose 104 mg/dl 11/27/24 05:52 POC Glucose Comment Glu2: cleaned meter 11/27/24 05:52 Calcium 8.1 mg/dL (8.6-10.3) L 11/19/24 04:28 Total Bilirubin 0.9 mg/dl (0.3-1.0) 11/19/24 04:28 AST 15 U/L (13-39) 11/19/24 04:28 ALT 17 U/L (7-52) 11/19/24 04:28 Alkaline Phosphatase 62 U/L (34-104) 11/19/24 04:28 Total Protein 5.6 gm/dL (6.4-8.9) L 11/19/24 04:28 Albumin 2.6 gm/dL (3.5-5.7) L 11/19/24 04:28 Globulin 3.0 gm/dL 11/19/24 04:28 Albumin/Globulin Ratio 0.9 11/19/24 04:28 Prealbumin 8.9 mg/dL (17.0-34.0) L 11/19/24 04:28 Assessment/Plan (1) Counseling regarding advance care planning and goals of care: Code(s): Z71.89 - Other specified counseling (2) Impaired mobility and activities of daily living: Code(s): Z74.09 - Other reduced mobility; Z78.9 - Other specified health status (3) Closed displaced fracture of left femoral neck: Code(s): S72.002A - Fracture of unspecified part of neck of left femur, initial encounterfor closed fracture (4) Dysphagia: Qualifiers: Dysphagia type: unspecified Qualified Code(s): R13.10 - Dysphagia, unspecified Code(s): R13.10 - Dysphagia, unspecified Plan Spent 1 hour with patient and spouse. updated on current condition and overall plan of care. Encouragement provided to patient. At this time, he would like to continue with tube feedings and aggressive care. Active listening and support provided. All questions and concerns addressed. Code status confirmed DNRCCA without intubation. PINEDA Chopra, patient's . Will continue to follow for support. Documented By: Nica Martinez DO 11/27/24 1126 Signed By: <Electronically signed by Nica Martinez DO> 11/27/24 6162 [facility] Work Phone: 1(105) 203-785303-04-2025 Progress note Author Jorge Clifton [facility] Note Date/Time November 27, 2024 12:[address] [facility] [address] [place] [address] Physiatry(Rehab) Progress Note Signed Patient: Bravo Arce MR#: [id number] : 1940 Acct:[id number] Age/Sex: 84 / M Adm Date: 5 Loc: Room: [address] [place] [address] Type: ADM IN Attending Dr: Jorge Clifton MD Copies to: ~ Date of Service: 11/26/2024 Subjective Subjective Narrative: Mr. Arce is a 84 year old male with past medical history of chronic A-fib s/p left atrial appendage ligation in May 2022, on Plavix for CAD s/p CABGx 3 vessels, mitral regurg s/p repair, permanent afib with sick sinus syndrome s/p pacemaker placement, parathyroid gland neoplasm s/p treatment in remission, BPH with LUTS, GERD who presents with multifactorial functional decline in the setting of left femoral neck fracture s/p femoral neck repair. He recently had a prolonged hospitalization. He presented to [facility] about 3 weeks ago after his witnessed an episode where he went blank and froze . She witnessed the event and lowered him to the floor per her report. He was intubated on the ambulance ride to [facility]. He was extubated after 48 hours. She tells me he was worked up for stroke or seizure, and was transferred to [facility] at family request after having a bad reaction to Geodon prompting reintubation. He was again subsequently extubated at after 2-3 days. She says the doctors at told her they did not have any answer as to the initial episode prompting his presentation to [facility]. She tells me that he has had 4 or 5 of these episodes over the past 20 years. He was unable to have an MRI due to incompatible pacemaker. [facility] to detention facility where hehad persistent hip pain. reports no trauma, but notes he has been having nagging hip pain since July. She reports urging the detention facility to do an x- ray which demonstrated right femoral neck fracture. He is now s/p femoral neck repair. He is also s/p PEG placement due to dysphagia Interval history: Seen and examined at bedside. Sitting up in chair next to bed. MBS this morningdid not go well. Continued recommendations for NPO. Patient endorses frustrationover this. I spoke at length about the importance of the tube feeding for nutrition. I also discussed the risks of PO intake including aspiration, severe infection, . I also discussed that this decision would ultimately be up to him when he gets home and that sometimes patients decide that eating food is an important part of their life that they do not want to give up. I am recommendinga palliative care consult for further discussion which the patient and his are agreeable to. Physically he is doing well. FI tomorrow with spouse. Review of Systems Review of Systems All other systems reviewed & are negative unless noted below or in HPI Exam Physical Exam Vital Signs: Temp Pulse Resp BP Pulse Ox O2 Del Method O2 Flow Rate 97.8 F 65 18 136/79 96 Room Air 1 11/26/24 05:00 11/26/24 05:00 11/26/24 05:00 11/26/24 05:00 11/26/24 05:00 11/26/24 07:30 11/23/24 00:00 FiO2 97 11/22/24 02:18 Narrative: Pleasant NAD Extremities well perfused No respiratory distress PEG tube in place. Abdomen soft, non distended Left lower extremity limited by pain. Otherwise moving all limbs spontaneously Minimal edema Objective Labs 11/19/24 04:28 11/19/24 04:28 Labs: Laboratory Results - last 24 hr 11/25/24 11/25/24 11/26/24 18:08 23:50 06:04 POC Glucose 132 108 105 POC Glucose Comment Glu2: cleaned meter Medications and Allergies Allergies and Active Meds: Allergies gabapentin Allergy (Unknown, Verified 11/10/24 19:15) Unknown Reaction penicillin V Allergy (Unknown, Verified 11/10/24 19:15) Unknown Reaction Penicillins Allergy (Unknown, Verified 11/10/24 19:15) Unknown Reaction haloperidol (From Haldol) Allergy (Verified 11/10/24 19:15) HYPOXIA lorazepam (From Ativan) Allergy (Verified 11/10/24 19:15) HYPOXIA ziprasidone (From Geodon) Allergy (Verified 11/10/24 19:15) HYPOXIC Active Medications Generic Name Dose Route Start Last Admin Trade Name Freq PRN Reason Stop Dose Admin Acetaminophen 650 mg 11/24/24 18:00 11/26/24 12:25 Acetaminophen 650 Mg/20.3 Ml Oral.Susp PEG 11/24/25 17:59 650 mg Q6H JIM Administration Al Hydrox/Mg Hydrox/Simethicone 30 ml 11/18/24 20:47 Mag Hydrox/Al Hydrox/Simeth 30 Ml Udc PEG 11/18/25 13:58 Q4H PRN Indigestion Atorvastatin Calcium 20 mg 11/18/24 21:00 11/25/24 20:41 Atorvastatin 20 Mg Tablet PEG 11/18/25 20:59 20 mg QPM JIM Administration Bisacodyl 10 mg 11/18/24 13:59 Bisacodyl 10 Mg Supp.Rect MT 11/18/25 13:58 DAILY PRN Constipation Clopidogrel Bisulfate 75 mg 11/19/24 09:00 11/26/24 10:07 Clopidogrel Bisulfate 75 Mg Tablet PEG 11/19/25 08:59 75 mg DAILY JIM Administration Docusate Sodium 283 mg 11/18/24 13:59 Docusate Enema 283 Mg/5 Ml Enema MT 11/18/25 13:58 DAILY PRN Constipation Docusate Sodium 100 mg 11/18/24 22:48 Docusate Liquid 100 Mg/10 Ml Udc PEG 11/18/25 20:59 BID PRN constipation Enoxaparin Sodium 40 mg 11/20/24 10:00 11/26/24 10:08 Enoxaparin 40 Mg/0.4 Ml Syringe SUBCUT 11/20/25 09:59 40 mg DAILY@1000 JIM Administration Finasteride 5 mg 11/19/24 09:00 11/26/24 10:07 Finasteride 5 Mg Tablet PEG 11/19/25 08:59 5 mg DAILY JIM Administration Guaifenesin 10 ml 11/18/24 13:57 11/20/24 19:46 Guaifenesin Syrup 10 Ml Udc PEG 11/18/25 13:56 10 ml Q4HR PRN Administration congestion Lactulose 30 gm 11/18/24 20:47 Lactulose 20 Gm/30 Ml Udc PEG 11/18/25 13:58 DAILY PRN Constipation Latanoprost 1 drops 11/18/24 22:00 11/25/24 20:41 Latanoprost 0.005% Op Soln 50 Drops/2.5 Ml Bottle EYE-BOTH 11/18/25 21:59 1drops QHS JIM Administration Lidocaine 1 patch 11/18/24 13:57 Lidocaine 4% Adh..Patch TOPICAL 11/18/25 13:56 Q12HR PRN pain Melatonin 10 mg 11/21/24 22:00 11/25/24 20:41 Melatonin 5 Mg Tablet PEG 11/21/25 21:59 10 mg QHS JIM Administration Metoprolol Tartrate 50 mg 11/18/24 21:00 11/26/24 10:07 Metoprolol Tartrate 50 Mg Tablet PEG 11/18/25 20:59 50 mg BID JIM Administration Polyethylene Glycol 17 gm 11/25/24 18:00 Polyethylene Glycol 3350 17 Gm Powd.Pack PEG 11/19/25 08:59 DAILY PRN Congestion Sennosides 17.2 mg 11/19/24 12:00 Sennosides 8.6 Mg Tablet PEG 11/19/25 11:59 DAILY@12 PRN If no BM in 2 days Sennosides 8.8 mg 11/18/24 22:00 11/25/24 20:41 Sennosides Syrup 8.8 Mg/5 Ml Udc PEG 11/18/25 21:59 8.8 mg QHS JIM Administration Sodium Chloride 0 ml 11/18/24 13:59 Sodium Chloride 0.9 % 10 Ml Syringe IV-PUSH 11/18/25 13:58 PRN PRN Flush Assessment/Plan Assessment/Plan (1) Closed displaced fracture of left femoral neck: (2) Dysphagia: Qualifiers: Dysphagia type: unspecified Qualified Code(s): R13.10 - Dysphagia, unspecified (3) Permanent atrial fibrillation: (4) Sick sinus syndrome: (5) S/P CABG x 3: (6) Mild left ventricular systolic dysfunction: (7) Status post placement of cardiac pacemaker: (8) Severe protein-calorie malnutrition: (9) Impaired mobility and activities of daily living: Plan This is a 84-year-old male who presents to [facility] to multifactorial functional decline in the setting of left femoral neck fracture s/p repair. He has continued impaired mobility and impaired independence with ADLs and IADLs requiring PT/OT/RELATIONSHIP ASSOCIATE 5-7 days/week 3 hours/day to maximize safety and independence with functional ability and self-care. -PT to improve patient's strength, endurance, bed mobility, transfers (sit- stand), standing balance, gait quality on level surfaces and stairs, coordination and functional ADL skills. We will also work to improve patient's safety awareness during transfers and ambulation. -OT for basic ADL retraining (bathing, dressing, toileting, continence, grooming, feeding, transferring), to increase activity tolerance and functional mobility to evaluate for adaptive assistive device. We will work to improve patient's endurance and educate patient on fall prevention and energy conservation techniques-pacing strategies and proper breathing techniques duringfunctional tasks. -Patient education -Pressure ulcer prophylaxis; encourage mobilization, frequent postural changes, pressure-relief techniques -DVT prophylaxis -Encourage deep breathing exercise incentive spirometry. -Monitor bladder. Toileting schedule. Continue current bladder management, with scans as needed and CIC if needed. Start bowel care program every day to obtain continence, prevent ileus. -Maintain fall precautions -Gait and balance retraining -Provision of the necessary gait aids and functional adaptive equipment to enhance the patient's a functional voodoo -Encourage deep breathing exercises and incentive spirometry -RD evaluation -Ensure adequate nutrition and hydration -Discharge planning. #. UPDATES -[facility] today. Continued recommendations for NPO status -I discussed this at length with the patient. I am recommending a palliative care consult for further discussion regarding his dysphagia -Continue current management -Watch pressure ulcer. -Continue PT/OT/ST as ordered -Hospitalist to assist with management of comorbid medical conditions #. Pain control: Tylenol scheduled #. Bowel and bladder: Continent of Bowel/bladder #. Skin: (pressure ulcer/surgical site) Pressure ulcer prophylaxis; encourage mobilization, frequent postural changes, pressure-relief techniques. OK to add Ventress salve. Can also use donut cushion when up in wheelchair if this is more comfortable #. Sleep: Optimize sleep/wake cycle DVT prophylaxis: Lovenox 40 mg daily Functional status: Impaired. Limited by pain, weakness Discharge planning: [facility] 1-2 weeks Advance care planning discussed with patient. Patient would like to be made DNR- CCA without intubation. Order placed. Patient was personally seen by me, Dr. Clifton, on the day of encounter, reviewed the history and the relevant portions of the chart, including current orders, allied health and product consultant notes, labs/imaging and performed bales elements of exam and I formulated the plan of care and facilitated the medical decision making. I completed a substantive portion of this encounter, the medical decision makingportion of this note in its entirety, including Allied health note review, nursing note review, product consultant note review, discussion with nursing and case management, and more than 50% of my time was spent on counseling and coordination of care, time spent 35 minutes Documented By: Jorge Clifton MD [id number] Signed By: <Electronically signed by Jorge Clifton MD> 11/27/[address] [place] [address] Work Phone: [phone] 949-631303-04-2025 [place] [address] Palliative Care Consult Note Signed Patient: Bravo Arce MR#: [id number] : 1940 Acct:[id number] Age/Sex: 84 / M Adm Date: 5 Loc: Room: [address] [place] [address] Type: ADM IN Attending Dr: Jorge Clifton MD Copies to: DO Jorge Diane MD Marcia E Braun, MD~ HPI Data of Consult Date of Consult: 11/27/2024 Requesting Physician: Jorge Clifton MD Primary Care Provider: Mylene Dunn MD Consult Narrative Reason for Consult: goals of care HPI: Mr Arce has a history of of chronic A-fib s/p left atrial appendage ligationin May 2022, on Plavix for CAD s/p CABG x 3 vessels, mitral regurg s/p repair, sick sinus syndrome s/p pacemaker placement, BPH with LUTS, GERD and history of skin cancer with neck dissection in 2018 who presentedto the ER on 11/10 with left hip pain for the previous 3 weeks. Patient did have a significant fall with possible syncope at the time when pain started. Of note, after initial fall, he did present to outside ER with unresponsiveness, acute hematuria, and developed acute respiratory failure. He was intubated, admitted to ICU, placed on continuous bladder irrigation, and required Levophed. Evaluatedby neurology. EEE was negative. He did stabilize and was successfully extubated. He transferred to regular floor but developed metabolicencephalopathy. Became hypoxic, noted to have ventricular tachycardia, and required re-intubation. Transferred back to ICU and started on amiodarone drip.At this point, he was transferred to [place] to [facility]. He again was able to improve, extubated safely. Does have history of dysphagia but was noted worse after requiring intubation twice. PEG tube was being considered buthe was discharged to SNF for therapy. Discussions regarding PEG tube were continued while at SNF but fortunately, he was able to maintain nutritional nees. While at rehab, tootie jose was having difficulty standing from seated position related to hip pain, prompting xray. He had outpatient xray performed at skilled facility showing acute subcapital femoral neck fractureand was sent to the ER on 11/10. In the ER, his vitals were stable. Labs unremarkable. Chest x-ray was negative for acute pathologybut did show some cardiomegaly. Orthopedics was consulted, updated pelvis and femur xrays showing Displaced subcapital hip fracture on the left. The right hip arthroplasty and acetabular fixation hardware. There lumbar and SI joint degenerative changes . Recommended admission with plans for surgery. He was admitted for left hip fracture. Cardiology was consulted forpre-operative CV risk assessment given patient's cardiac history. Patient was felt to be optimized and cleared for surgery. Patient had open treatment of femoral neck fracture with prosthetic replacement performed on 11/12. No complications from surgery. However, patient developed worsening dysphagia during hospitalization. Completed MBS on 11/14 with significant dysphagia, with ST recommending NPO. General surgery was consulted and recommended PEG placement. Surgery with PEg placement was performed on 11/16 without complication. Patient remained stable throughout hospitalization. Was evaluated by PMR and recommended inpatient rehab. he was transferred up to inpatient rehab on 11/19. Patient has made progress with therapy regarding mobility and ability to complete his ADLs/IADLS. unfortunately, his dysphagia has persisted. He had an updated MBS performed on11/26 showing min oral and mod-severe pharyngeal phase dysphagia. Aspiration/penetration observed following thin and nectar thick liquids by spoon, with penetration noted w/ honey thick and puree consistencies. Postural changes and strategies did not improve airway protection. Pt w/ only intermittent sensation of penetration/aspiration. Significant laryngeal and vallecular residuals remained post swallow. Speech recommendation of NPO with utilizatino of PEG for meds and nutrition. He does seem to be tolerating tube feeds withoutissue. Patient has expressed frustration with prolonged hospitalization and swallowing concerns. Palliative care has been consulted to assist with goals of care. Patient sitting in chair. Patient's Smitha is at bedside. Patient states overall he is doingokay. His pain is doing well. Denies pain when he is at rest. Does become slightly sore with any activity. Physical therapy is going well. He denies shortness of breath at rest. Was previously wearing oxygen during hospitalization but is no longer requiring it. States he is doingokay without it. Does have some exertional dyspnea but states it is similar to how he feels when he is at home. He denies any chest pain. He did have an episode of nausea the other day. Denies any further episodes or vomiting. Feels like he is tolerating tube feeds without issues. Denies dizziness or lightheadedness. S marina he is sleeping okay off-and-on but the bed is uncomfortable. notes he has napped throughout the day at times. Patient expresses being frustrated by being in the hospital for so long. He istypically a very active patrizia and being limited in his mobility has been very difficult. He is also very frustrated with his limited diet and speech recommendations. Patient lives in [place]. He is originally from there and has lived there his whole life. He is to his Smitha. They have been together for 25years. They were introduced by Bravo's daughter. He has have 2 children boy and a girl. Smitha also has 2 children. Some of their children live nearby. They have a close relationship with their family. They have 5 grandkids and 2 great grandkids. Patient is Shinto and has a strong tres. His Smitha is Taoist. She states his tres is one of the things attracted her to him. Because they are different religions, they alternategoing to each other's episcopalian. He attends [employer] while she attends [employer]. 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 Patient enjoys classic cars and attending car shoes. He has 3 classic cars that he has built in his garage. heshares this hobby with his son. His favorite cars are [employer]der. He also enjoys buildingengines. States in the past, he enjoyed drag racing cars. 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 Smitha states they are both very active in downtown [place] and have been on committees to support the town. He also enjoys lawncare and gardening. Sean states he has had swallowing issues for a very long time, even before his neck dissection in 2018. States both of his kids have similar swallowing concerns. Patient states he may never gain significant swallowing back. Discussed tube feeding vs comfort care measures with pleasure feeding. Reviewed that he is tolerating tube feedings, gaining weight, doing well with PT. Patient feels frustrated by speech therapy and want to make sure they are not keeping him NPO for marginal reasons. Reviewed MBS showing moderate to severe dysphagia as well as silent aspiration. Encouraged that he may improve with continued therapy at home. Also discussed he may improve to eat soft foods but need tube feeding for nutritional support. Patient states he eats to live but not live to eat and has always been that way. He feels he can live off tube feedings if he is still able to have a good quality of life. Reviewed because he is bolus feeding, he should be able to live a normal life with tube feedings. Stated he will be able to live off tube feeding up to a certain point. Reviewed that he is the only one who can decide what that limit is. Reviewed comfort care measures with pleasure feeding if he no longer wanted to just tube feed or stop working with therapies. He currently does not feel that he is ready to stop aggressive care. [facility]PHU is his Smitha. not currently on file but encouraged to bring paperwork to confidential secretary desk to upload into chart. Also reviewed resuscitation preferences. Patient confirms his decision of DNRCCA without intubation. 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 BPH (benign prostatic hyperplasia) Afib Hyperlipidemia Malignant neoplasm of parathyroid gland Dysphagia COPD (chronic obstructive pulmonary disease) Acute respiratory failure GERD (gastroesophageal reflux disease) FH: cholecystectomy Broken hip Permanent atrial fibrillation Hypocalcemia History of head and neck cancer Hernia Essential hypertension Cellulitis of left lower extremity Benign paroxysmal positional vertigo, bilateral ASHD (arteriosclerotic heart disease) Apnea, sleep Anemia of chronic disease Surgical History (Updated 11/26/24 @ 00:01 by Elio Boogie) History of right hip replacement Status cardiac pacemaker Mitral valve replaced Family History Father Mother Social History Smoking Status: Never smoker Substance Use Type: None Allergies & Medications Medications and Allergies Allergies gabapentin Allergy (Unknown, Verified 11/10/24 19:15) Unknown Reaction penicillin V Allergy (Unknown, Verified 11/10/24 19:15) Unknown Reaction Penicillins Allergy (Unknown, Verified 11/10/24 19:15) Unknown Reaction haloperidol (From Haldol) Allergy (Verified 11/10/24 19:15) HYPOXIA lorazepam (From Ativan) Allergy (Verified 11/10/24 19:15) HYPOXIA ziprasidone (From Geodon) Allergy (Verified 11/10/24 19:15) HYPOXIC Home Medications metoprolol tartrate 50 mg tablet 50 mg feeding tube BID 01/09/18 [History Confirmed 11/18/24] clopidogrel 75 mg tablet 75 mg feeding tube DAILY 07/12/24 [History Confirmed 11/18/24] latanoprost 0.005 % eye drops 1 drp ophthalmic (eye) QHS 07/12/24 [History Confirmed 11/18/24] acetaminophen 325 mg capsule 975 mg feeding tube TID PRN pain 11/10/24 [History Confirmed 11/18/24] atorvastatin 20 mg tablet 20 mg feeding tube QPM 11/10/24 [History Confirmed 11/18/24] guaifenesin 100 mg/5 mL oral liquid 200 mg feeding tube Q4HR PRN congestion 11/10/24 [History Confirmed 11/18/24] lidocaine 4 % topical patch (Aspercreme (lidocaine)) 1 patch topical Q12HR PRN pain 11/10/24 [History Confirmed 11/18/24] melatonin 5 mg capsule 5 mg feeding tube QHS 11/10/24 [History Confirmed 11/18/24] polyethylene glycol 3350 17 gram oral powder packet (Miralax) 17 g feeding tube DAILY 11/10/24 [History Confirmed 11/18/24] sennosides 8.6 mg capsule (senna) 17.2 mg feeding tube QHS 11/10/24 [History Confirmed 11/18/24] docusate sodium 50 mg/5 mL oral liquid 100 mg (10 mL) PO BID 30 days #600 mL 11/18/24 [Rx [id number]/23/25] doxycycline hyclate 100 mg capsule 100 mg PO BID #4 caps 11/18/24 [Rx Confirmed 11/18/24] finasteride 5 mg tablet 5 mg PO .GTUBE 30 days #0 tabs 11/18/24 [Rx Confirmed 11/18/24] Active Medications Acetaminophen (Acetaminophen 650 Mg/20.3 Ml Oral.Susp) 650 mg PEG Q6H JIM Stop: 11/24/25 17:59 Last Admin: 11/27/24 06:02 Dose: 650 mg Al Hydrox/Mg Hydrox/Simethicone (Mag Hydrox/Al Hydrox/Simeth 30 Ml Udc) 30 ml PEG Q4H PRN PRN Reason: Indigestion Stop: 11/18/25 13:58 Atorvastatin Calcium (Atorvastatin 20 Mg Tablet) 20 mg PEG QPM JIM Stop: 11/18/25 20:59 Last Admin: 11/26/24 20:17 Dose: 20 mg Bisacodyl (Bisacodyl 10 Mg Supp.Rect) 10 mg MT DAILY PRN PRN Reason: Constipation Stop: 11/18/25 13:58 Clopidogrel Bisulfate (Clopidogrel Bisulfate 75 Mg Tablet) 75 mg PEG DAILY [facility] Stop: 11/19/25 08:59 Last Admin: 11/27/24 09:47 Dose: 75 mg Docusate Sodium (Docusate Enema 283 Mg/5 Ml Enema) 283 mg MT DAILY PRN PRN Reason: Constipation Stop: 11/18/25 13:58 Docusate Sodium (Docusate Liquid 100 Mg/10 Ml Udc) 100 mg PEG BID PRN PRN Reason: constipation Stop: 11/18/25 20:59 Enoxaparin Sodium (Enoxaparin 40 Mg/0.4 Ml Syringe) 40 mg SUBCUT DAILY@1000 [facility] Stop: 11/20/25 09:59 Last Admin: 11/27/24 09:50 Dose: 40 mg Finasteride (Finasteride 5 Mg Tablet) 5 mg PEG DAILY JIM Stop: 11/19/25 08:59 Last Admin: 11/27/24 09:48 Dose: 5 mg Guaifenesin (Guaifenesin Syrup 10 Ml Udc) 10 ml PEG Q4HR PRN PRN Reason: congestion Stop: 11/18/25 13:56 Last Admin: 11/20/24 19:46 Dose: 10 ml Lactulose (Lactulose 20 Gm/30 Ml Udc) 30 gm PEG DAILY PRN PRN Reason: Constipation Stop: 11/18/25 13:58 Latanoprost (Latanoprost 0.005% Op Soln 50 Drops/2.5 Ml Bottle) 1 drops EYE-BOTH QHS [facility] Stop: 11/18/25 21:59 Last Admin: 11/26/24 20:17 Dose: 1 drops Lidocaine (Lidocaine 4% Adh..Patch) 1 patch TOPICAL Q12HR PRN PRN Reason: pain Stop: 11/18/25 13:56 Melatonin (Melatonin 5 Mg Tablet) 10 mg PEG QHS JIM Stop: 11/21/25 21:59 Last Admin: 11/26/24 20:17 Dose: 10 mg Metoprolol Tartrate (Metoprolol Tartrate 50 Mg Tablet) 50 mg PEG BID JIM Stop: 11/18/25 20:59 Last Admin: 11/27/24 09:47 Dose: 50 mg Polyethylene Glycol (Polyethylene Glycol 3350 17 Gm Powd.Pack) 17 gm PEG DAILY PRN PRN Reason: Congestion Stop: 11/19/25 08:59 Sennosides (Sennosides 8.6 Mg Tablet) 17.2 mg PEG DAILY@12 PRN PRN Reason: If no BM in 2 days Stop: 11/19/25 11:59 Sennosides (Sennosides Syrup 8.8 Mg/5 Ml Udc) 8.8 mg PEG QHS JIM Stop: 11/18/25 21:59 Last Admin: 11/26/24 20:17 Dose: 8.8 mg Sodium Chloride (Sodium Chloride 0.9 % 10 Ml Syringe) 0 ml IV-PUSH PRN PRN PRN Reason: Flush Stop: 11/18/25 13:58 Exam Physical Exam Vital Signs: Temp Pulse Resp BP Pulse Ox O2 Del Method O2 Flow Rate 97.3 F L 75 20 138/72 95 Room Air 1 11/27/24 06:00 11/27/24 06:00 11/27/24 06:00 11/27/24 06:00 11/27/24 06:00 11/27/24 06:00 11/23/24 00:00 FiO2 97 11/22/24 02:18 Const General: comfortable, frail appearing and not ill appearing Nutritional Appearance: average body habitus and thin Orientation: alert, awake and oriented x3 Limitations: mental status not altered HEENT Ears: hearing grossly normal bilaterally Nose: external nose normal Mouth: oral mucosae normal Teeth and gingiva: dentition normal Other: temporal wasting Eyes Pupils: PERRL EOM: EOM intact bilaterally Other: wearing glasses Resp Effort & Inspection: normal respiratory effort and not tachypneic Auscultation: clear to auscultation bilaterally, no rales, no rhonchi and no wheezes Cardio Rate: regular rate Rhythm: regular rhythm Heart Sounds: S1 normal and S2 normal GI Palpation: soft, not firm and no guarding Other: PEG tube in place without erythema or discharge Musc Other: muscle wasting Skin General: no rashes or lesions noted Neuro General: patient alert, patient awake and moves all extremities Cranial Nerves: CN's II-XII intact bilaterally Cognition: normal cognition Speech: speech normal Extrem General: no edema Psych Appearance: grossly normal Mood: congruent mood Affect: normal affect Attitude: cooperative Thought Process: normal Thought Content: normal Insight: insight good Judgment: judgment good Results - Palliative Care Labs 11/19/24 04:28 11/19/24 04:28 Labs: Laboratory Last Values Corrected WBC 5.8 X10E3/uL (4.1-10.5) 11/19/24 04:28 Uncorrected WBC Count 5.8 x10E3/uL (4.1-10.5) 11/19/24 04:28 RBC 3.22 x10E6/uL (3.90-5.60) L 11/19/24 04:28 Hgb 10.0 g/dL (13.0-17.0) L 11/19/24 04:28 Hct 29.6 % (38.8-50.0) L 11/19/24 04:28 MCV 92.0 fl (83.5-101) 11/19/24 04:28 MCH 31.2 pg (27.5-35.2) 11/19/24 04:28 MCHC 33.9 g/dL (32.5-35.6) 11/19/24 04:28 RDW 16.4 % (12.0-14.8) H 11/19/24 04:28 Plt Count 158 x10E3/uL (150-450) 11/19/24 04:28 MPV 8.1 fl (6.6-10.1) 11/19/24 04:28 Neut % (Auto) 65.8 % (.) 11/19/24 04:28 Lymph % (Auto) 16.0 % (.) 11/19/24 04:28 [place] % (Auto) 13.3 % (.) 11/19/24 04:28 Eos % (Auto) 4.4 % (.) 11/19/24 04:28 Baso % (Auto) 0.5 % (.) 11/19/24 04:28 Nucleat RBC Rel Count 0.1 /100 WBC (0-0.5) 11/19/24 04:28 Neut # (Auto) 3.8 x10E3/uL (1.8-7.7) 11/19/24 04:28 Lymph # (Auto) 0.9 x10E3/uL (1.00-4.8) L 11/19/24 04:28 [place] # (Auto) 0.8 x10E3/uL (0.0-0.8) 11/19/24 04:28 Eos # (Auto) 0.3 x10E3/uL (0.0-0.45) 11/19/24 04:28 Baso # (Auto) 0.0 x10E3/uL (0.0-0.2) 11/19/24 04:28 PHA Creatinine Clear 78.14 11/19/24 04:28 Sodium 136 mmol/L (136-145) 11/19/24 04:28 Potassium 4.1 mmol/L (3.5-5.1) 11/19/24 04:28 Chloride 102 mmol/L (98-107) 11/19/24 04:28 Carbon Dioxide 29.7 mmol/L (21.0-31.0) 11/19/24 04:28 Anion Gap 8.4 mEq/L (6.0-15.0) 11/19/24 04:28 BUN 16 mg/dL (7-25) 11/19/24 04:28 Creatinine 0.53 mg/dL (0.70-1.30) L 11/19/24 04:28 Est GFR (CKD-EPI) > 60.0 mL/Min 11/19/24 04:28 Glucose 118 mg/dL (70-100) H 11/19/24 04:28 POC Glucose 104 mg/dl 11/27/24 05:52 POC Glucose Comment Glu2: cleaned meter 11/27/24 05:52 Calcium 8.1 mg/dL (8.6-10.3) L 11/19/24 04:28 Total Bilirubin 0.9 mg/dl (0.3-1.0) 11/19/24 04:28 AST 15 U/L (13-39) 11/19/24 04:28 ALT 17 U/L (7-52) 11/19/24 04:28 Alkaline Phosphatase 62 U/L (34-104) 11/19/24 04:28 Total Protein 5.6 gm/dL (6.4-8.9) L 11/19/24 04:28 Albumin 2.6 gm/dL (3.5-5.7) L 11/19/24 04:28 Globulin 3.0 gm/dL 11/19/24 04:28 Albumin/Globulin Ratio 0.9 11/19/24 04:28 Prealbumin 8.9 mg/dL (17.0-34.0) L 11/19/24 04:28 Assessment/Plan (1) Counseling regarding advance care planning and goals of care: Code(s): Z71.89 - Other specified counseling (2) Impaired mobility and activities of daily living: Code(s): Z74.09 - Other reduced mobility; Z78.9 - Other specified health status (3) Closed displaced fracture of left femoral neck: Code(s): S72.002A - Fracture of unspecified part of neck of left femur, initial encounterfor closed fracture (4) Dysphagia: Qualifiers: Dysphagia type: unspecified Qualified Code(s): R13.10 - Dysphagia, unspecified Code(s): R13.10 - Dysphagia, unspecified Plan Spent 1 hour with patient and spouse. updated on current condition and overall plan of care. Encouragement provided to patient. At this time, he would like to continue with tube feedings and aggressive care. Active listening and support provided. All questions and concerns addressed. Code status confirmed DNRCCA without intubation. PINEDA Chopra, patient's . Will continue to follow for support. Documented By: Nica Martinez DO 11/27/24 1126 Signed By: 11/27/24 1505 [facility]03-04-2025 [place] [address] Physiatry(Rehab) Progress Note Signed Patient: Bravo Arce MR#: [id number] : 1940 Acct:[id number] Age/Sex: 84 / M Adm Date: 5 Loc: Room: [address] [place] [address] Type: ADM IN Attending Dr: Jorge Clifton MD Copies to: ~ Date of Service: 11/26/2024 Subjective Subjective Narrative: Mr. Arce is a 84 year old male with past medical history of chronic A-fib s/p left atrial appendage ligation in May 2022, on Plavix for CAD s/p CABGx 3 vessels, mitral regurg s/p repair, permanent afib with sick sinus syndrome s/p pacemaker placement, parathyroid gland neoplasm s/p treatment in remission, BPH with LUTS, GERD who presents with multifactorial functional decline in the setting of left femoral neck fracture s/p femoral neck repair. He recently had a prolonged hospitalization. He presented to [facility] about 3 weeks ago after his witnessed an episode where he went blank and froze . She witnessed the event and lowered him to the floor per her report. He was intubated on the ambulance ride to [facility]. He was extubated after 48 hours. She tells me he was worked up for stroke or seizure, and was transferred to [facility] at family request after having a bad reaction to Geodon prompting reintubation. He was again subsequently extubated at after 2-3 days. She says the doctors at told her they did not have any answer as to the initial episode prompting his presentation to [facility]. She tells me that he has had 4 or 5 of these episodes over the past 20 years. He was unable to have an MRI due to incompatible pacemaker. He was discharged from [facility] to detention facility where hehad persistent hip pain. reports no trauma, but notes he has been having nagging hip pain since July. She reports urging the detention facility to do an x-ray which demonstrated right femoral neck fracture. He is now s/p femoral neck repair. He is also s/p PEG placement due to dysphagia Interval history: Seen and examined at bedside. Sitting up in chair next to bed. MBS this morningdid not go well. Continued recommendations for NPO. Patient endorses frustrationover this. I spoke at length about the importance of the tube feeding for nutrition. I also discussed the risks of PO intake including aspiration, severe infection, . I also discussed that this decision would ultimately be up to him when he gets home and that sometimes patients decide that eating food is an important part of their life that they do not want to give up. I am recommendinga palliative care consult for further discussion which the patient and his are agreeable to. Physically he is doing well. FI tomorrow with spouse. Review of Systems Review of Systems All other systems reviewed & are negative unless noted below or in HPI Exam Physical Exam Vital Signs: Temp Pulse Resp BP Pulse Ox O2 Del Method O2 Flow Rate 97.8 F 65 18 136/79 96 Room Air 1 11/26/24 05:00 11/26/24 05:00 11/26/24 05:00 11/26/24 05:00 11/26/24 05:00 11/26/24 07:30 11/23/24 00:00 FiO2 97 11/22/24 02:18 Narrative: Pleasant NAD Extremities well perfused No respiratory distress PEG tube in place. Abdomen soft, non distended Left lower extremity limited by pain. Otherwise moving all limbs spontaneously Minimal edema Objective Labs 11/19/24 04:28 11/19/24 04:28 Labs: Laboratory Results - last 24 hr 11/25/24 11/25/24 11/26/24 18:08 23:50 06:04 POC Glucose 132 108 105 POC Glucose Comment Glu2: cleaned meter Medications and Allergies Allergies and Active Meds: Allergies gabapentin Allergy (Unknown, Verified 11/10/24 19:15) Unknown Reaction penicillin V Allergy (Unknown, Verified 11/10/24 19:15) Unknown Reaction Penicillins Allergy (Unknown, Verified 11/10/24 19:15) Unknown Reaction haloperidol (From Haldol) Allergy (Verified 11/10/24 19:15) HYPOXIA lorazepam (From Ativan) Allergy (Verified 11/10/24 19:15) HYPOXIA ziprasidone (From Geodon) Allergy (Verified 11/10/24 19:15) HYPOXIC Active Medications Generic Name Dose Route Start Last Admin Trade Name Freq PRN Reason Stop Dose Admin Acetaminophen 650 mg 11/24/24 18:00 11/26/24 12:25 Acetaminophen 650 Mg/20.3 Ml Oral.Susp PEG 11/24/25 17:59 650 mg Q6H JIM Administration Al Hydrox/Mg Hydrox/Simethicone 30 ml 11/18/24 20:47 Mag Hydrox/Al Hydrox/Simeth 30 Ml Udc PEG 11/18/25 13:58 Q4H PRN Indigestion Atorvastatin Calcium 20 mg 11/18/24 21:00 11/25/24 20:41 Atorvastatin 20 Mg Tablet PEG 11/18/25 20:59 20 mg QPM JIM Administration Bisacodyl 10 mg 11/18/24 13:59 Bisacodyl 10 Mg Supp.Rect MT 11/18/25 13:58 DAILY PRN Constipation Clopidogrel Bisulfate 75 mg 11/19/24 09:00 11/26/24 10:07 Clopidogrel Bisulfate 75 Mg Tablet PEG 11/19/25 08:59 75 mg DAILY JIM Administration Docusate Sodium 283 mg 11/18/24 13:59 Docusate Enema 283 Mg/5 Ml Enema MT 11/18/25 13:58 DAILY PRN Constipation Docusate Sodium 100 mg 11/18/24 22:48 Docusate Liquid 100 Mg/10 Ml Udc PEG 11/18/25 20:59 BID PRN constipation Enoxaparin Sodium 40 mg 11/20/24 10:00 11/26/24 10:08 Enoxaparin 40 Mg/0.4 Ml Syringe SUBCUT 11/20/25 09:59 40 mg DAILY@1000 JIM Administration Finasteride 5 mg 11/19/24 09:00 11/26/24 10:07 Finasteride 5 Mg Tablet PEG 11/19/25 08:59 5 mg DAILY JIM Administration Guaifenesin 10 ml 11/18/24 13:57 11/20/24 19:46 Guaifenesin Syrup 10 Ml Udc PEG 11/18/25 13:56 10 ml Q4HR PRN Administration congestion Lactulose 30 gm 11/18/24 20:47 Lactulose 20 Gm/30 Ml Udc PEG 11/18/25 13:58 DAILY PRN Constipation Latanoprost 1 drops 11/18/24 22:00 11/25/24 20:41 Latanoprost 0.005% Op Soln 50 Drops/2.5 Ml Bottle EYE-BOTH 11/18/25 21:59 1drops QHS JIM Administration Lidocaine 1 patch 11/18/24 13:57 Lidocaine 4% Adh..Patch TOPICAL 11/18/25 13:56 Q12HR PRN pain Melatonin 10 mg 11/21/24 22:00 11/25/24 20:41 Melatonin 5 Mg Tablet PEG 11/21/25 21:59 10 mg QHS JIM Administration Metoprolol Tartrate 50 mg 11/18/24 21:00 11/26/24 10:07 Metoprolol Tartrate 50 Mg Tablet PEG 11/18/25 20:59 50 mg BID JIM Administration Polyethylene Glycol 17 gm 11/25/24 18:00 Polyethylene Glycol 3350 17 Gm Powd.Pack PEG 11/19/25 08:59 DAILY PRN Congestion Sennosides 17.2 mg 11/19/24 12:00 Sennosides 8.6 Mg Tablet PEG 11/19/25 11:59 DAILY@12 PRN If no BM in 2 days Sennosides 8.8 mg 11/18/24 22:00 11/25/24 20:41 Sennosides Syrup 8.8 Mg/5 Ml Udc PEG 11/18/25 21:59 8.8 mg QHS JIM Administration Sodium Chloride 0 ml 11/18/24 13:59 Sodium Chloride 0.9 % 10 Ml Syringe IV-PUSH 11/18/25 13:58 PRN PRN Flush Assessment/Plan Assessment/Plan (1) Closed displaced fracture of left femoral neck: (2) Dysphagia: Qualifiers: Dysphagia type: unspecified Qualified Code(s): R13.10 - Dysphagia, unspecified (3) Permanent atrial fibrillation: (4) Sick sinus syndrome: (5) S/P CABG x 3: (6) Mild left ventricular systolic dysfunction: (7) Status post placement of cardiac pacemaker: (8) Severe protein-calorie malnutrition: (9) Impaired mobility and activities of daily living: Plan This is a 84-year-old male who presents to [facility] to multifactorial functional decline in the setting of left femoral neck fracture s/p repair. He has continued impaired mobility and impaired independence with ADLs and IADLs requiring PT/OT/RELATIONSHIP ASSOCIATE 5-7 days/week 3 hours/day to maximize safety and independence with functional ability and self-care. -PT to improve patient's strength, endurance, bed mobility, transfers (sit- stand), standing balance, gait quality on level surfaces and stairs, coordination and functional ADL skills. We will also work to improve patient's safety awareness during transfers and ambulation. -OT for basic ADL retraining (bathing, dressing, toileting, continence, grooming, feeding, transferring), to increase activity tolerance and functional mobility to evaluate for adaptive assistive device. We will work to improve patient's endurance and educate patient on fall prevention and energy co nservation techniques-pacing strategies and proper breathing techniques duringfunctional tasks. -Patient education -Pressure ulcer prophylaxis; encourage mobilization, frequent postural changes, pressure-relief techniques -DVT prophylaxis -Encourage deep breathing exercise incentive spirometry. -Monitor bladder. Toileting schedule. Continue current bladder management, with scans as needed andCIC if needed. Start bowel care program every day to obtain continence, prevent ileus. -Maintain fall precautions -Gait and balance retraining -Provision of the necessary gait aids and functional adaptive equipment to enhance the patient's a functional voodoo -Encourage deep breathing exercises and incentive spirometry -RD evaluation -Ensure adequate nutrition and hydration -Discharge planning. #. UPDATES -MBS today. Continued recommendations for NPO status -I discussed this at length with the patient. I am recommending a palliative care consult for further discussion regarding his dysphagia -Continue current management -Watch pressure ulcer. -Continue PT/OT/ST as ordered -Hospitalist to assist with management of comorbid medical conditions #. Pain control: Tylenol scheduled #. Bowel and bladder: Continent of Bowel/bladder #. Skin: (pressure ulcer/surgical site) Pressure ulcer prophylaxis; encourage mobilization, frequent postural changes, pressure-relief techniques. OK to add Ventress salve. Can also use donut cushion when up in wheelchair if this is more comfortable #. Sleep: Optimize sleep/wake cycle DVT prophylaxis: Lovenox 40 mg daily Functional status: Impaired. Limited by pain, weakness Discharge planning: [facility] 1-2 weeks Advance care planning discussed with patient. Patient would like to be made DNR- CCA without intubation. Order placed. Patient was personally seen by me, Dr. Clifton, on the day of encounter, reviewed the history and the relevant portions of the chart, including current orders, allied health and product consultant notes, labs/imaging and performed bales elements of exam and I formulated the plan of care and facilitated the medical decision making. I completed a substantive portion of this encounter, the medical decision makingportion of this note in its entirety, including Allied health note review, nursing note review, product consultant note review,discussion with nursing and case management, and more than 50% of my time was spent on counseling and coordination of care, time spent 35 minutes Documented By: Jorge Clifton MD [id number] Signed By: 11/27/24 [facility]6 [facility]03-02-2025 Progress note Author Kayden Odom [facility] Note Date/Time November 25, 2024 3:[address] [facility] [address] [place] [address] Physiatry(Rehab) Progress Note Signed Patient: Bravo Arce MR#: [id number] : 1940 Acct:[id number] Age/Sex: 84 / M Adm Date: 5 Loc: Room: [address] [place] [address] Type: ADM IN Attending Dr: Jorge Clifton MD Copies to: ~ Date of Service: 11/25/2024 Subjective Subjective Narrative: Mr. Acre is a 84 year old male with past medical history of chronic A-fib s/p left atrial appendage ligation in May 2022, on Plavix for CAD s/p CABGx 3 vessels, mitral regurg s/p repair, permanent afib with sick sinus syndrome s/p pacemaker placement, parathyroid gland neoplasm s/p treatment in remission, BPH with LUTS, GERD who presents with multifactorial functional decline in the setting of left femoral neck fracture s/p femoral neck repair. He recently had a prolonged hospitalization. He presented to [facility] about 3 weeks ago after his witnessed an episode where he went blank and froze . She witnessed the event and lowered him to the floor per her report. He was intubated on the ambulance ride to [facility]. He was extubated after 48 hours. She tells me he was worked up for stroke or seizure, and was transferred to [facility] at family request after having a bad reaction to Geodon prompting reintubation. He was again subsequently extubated at after 2-3 days. She says the doctors at told her they did not have any answer as to the initial episode prompting his presentation to [facility]. She tells me that he has had 4 or 5 of these episodes over the past 20 years. He was unable to have an MRI due to incompatible pacemaker. He was discharged from [facility] to detention facility where hehad persistent hip pain. reports no trauma, but notes he has been having nagging hip pain since July. She reports urging the detention facility to do an x- ray which demonstrated right femoral neck fracture. He is now s/p femoral neck repair. He is also s/p PEG placement due to dysphagia Interval history: Seen and examined at bedside. No new issues at present. MBS tomorrow. FI 3/4. Ambulatory 235'. Can likely go home soon. Review of Systems Review of Systems All other systems reviewed & are negative unless noted below or in HPI Exam Physical Exam Vital Signs: Temp Pulse Resp BP Pulse Ox O2 Del Method O2 Flow Rate 97.2 F L 98 14 113/73 100 Room Air 1 11/25/24 16:00 11/25/24 16:00 11/25/24 16:00 11/25/24 16:00 11/25/24 16:00 11/25/24 16:00 11/23/24 00:00 FiO2 97 11/22/24 02:18 Narrative: Pleasant NAD Extremities well perfused No respiratory distress PEG tube in place. Abdomen soft, non distended Left lower extremity limited by pain. Otherwise moving all limbs spontaneously Minimal edema Objective Labs 11/19/24 04:28 11/19/24 04:28 Labs: Laboratory Results - last 24 hr 11/24/24 11/25/24 11/25/24 17:51 00:03 06:19 POC Glucose 138 101 107 11/25/24 11:41 POC Glucose 90 Medications and Allergies Allergies and Active Meds: Allergies gabapentin Allergy (Unknown, Verified 11/10/24 19:15) Unknown Reaction penicillin V Allergy (Unknown, Verified 11/10/24 19:15) Unknown Reaction Penicillins Allergy (Unknown, Verified 11/10/24 19:15) Unknown Reaction haloperidol (From Haldol) Allergy (Verified 11/10/24 19:15) HYPOXIA lorazepam (From Ativan) Allergy (Verified 11/10/24 19:15) HYPOXIA ziprasidone (From Geodon) Allergy (Verified 11/10/24 19:15) HYPOXIC Active Medications Generic Name Dose Route Start Last Admin Trade Name Freq PRN Reason Stop Dose Admin Acetaminophen 650 mg 11/24/24 18:00 11/25/24 12:13 Acetaminophen 650 Mg/20.3 Ml Oral.Susp PEG 11/24/25 17:59 650 mg Q6H JIM Administration Al Hydrox/Mg Hydrox/Simethicone 30 ml 11/18/24 20:47 Mag Hydrox/Al Hydrox/Simeth 30 Ml Udc PEG 11/18/25 13:58 Q4H PRN Indigestion Atorvastatin Calcium 20 mg 11/18/24 21:00 11/24/24 19:57 Atorvastatin 20 Mg Tablet PEG 11/18/25 20:59 20 mg QPM JIM Administration Bisacodyl 10 mg 11/18/24 13:59 Bisacodyl 10 Mg Supp.Rect MT 11/18/25 13:58 DAILY PRN Constipation Clopidogrel Bisulfate 75 mg 11/19/24 09:00 11/25/24 09:12 Clopidogrel Bisulfate 75 Mg Tablet PEG 11/19/25 08:59 75 mg DAILY JIM Administration Docusate Sodium 283 mg 11/18/24 13:59 Docusate Enema 283 Mg/5 Ml Enema MT 11/18/25 13:58 DAILY PRN Constipation Docusate Sodium 100 mg 11/18/24 22:48 Docusate Liquid 100 Mg/10 Ml Udc PEG 11/18/25 20:59 BID PRN constipation Enoxaparin Sodium 40 mg 11/20/24 10:00 11/25/24 09:14 Enoxaparin 40 Mg/0.4 Ml Syringe SUBCUT 11/20/25 09:59 40 mg DAILY@1000 JIM Administration Finasteride 5 mg 11/19/24 09:00 11/25/24 09:12 Finasteride 5 Mg Tablet PEG 11/19/25 08:59 5 mg DAILY JIM Administration Guaifenesin 10 ml 11/18/24 13:57 11/20/24 19:46 Guaifenesin Syrup 10 Ml Udc PEG 11/18/25 13:56 10 ml Q4HR PRN Administration congestion Lactulose 30 gm 11/18/24 20:47 Lactulose 20 Gm/30 Ml Udc PEG 11/18/25 13:58 DAILY PRN Constipation Latanoprost 1 drops 11/18/24 22:00 11/24/24 19:57 Latanoprost 0.005% Op Soln 50 Drops/2.5 Ml Bottle EYE-BOTH 11/18/25 21:59 1drops QHS [facility] Administration Lidocaine 1 patch 11/18/24 13:57 Lidocaine 4% Adh..Patch TOPICAL 11/18/25 13:56 Q12HR PRN pain Melatonin 10 mg 11/21/24 22:00 11/24/24 19:57 Melatonin 5 Mg Tablet PEG 11/21/25 21:59 10 mg QHS JIM Administration Metoprolol Tartrate 50 mg 11/18/24 21:00 11/25/24 09:12 Metoprolol Tartrate 50 Mg Tablet PEG 11/18/25 20:59 50 mg BID [facility] Administration Polyethylene Glycol 17 gm 11/19/24 09:00 11/25/24 09:20 Polyethylene Glycol 3350 17 Gm Powd.Pack PEG 11/19/25 08:59 Not Given DAILY [facility] Sennosides 17.2 mg 11/19/24 12:00 Sennosides 8.6 Mg Tablet PEG 11/19/25 11:59 DAILY@12 PRN If no BM in 2 days Sennosides 8.8 mg 11/18/24 22:00 11/24/24 19:57 Sennosides Syrup 8.8 Mg/5 Ml Udc PEG 11/18/25 21:59 8.8 mg QHS JIM Administration Sodium Chloride 0 ml 11/18/24 13:59 Sodium Chloride 0.9 % 10 Ml Syringe IV-PUSH 11/18/25 13:58 PRN PRN Flush Assessment/Plan Assessment/Plan (1) Closed displaced fracture of left femoral neck: (2) Dysphagia: Qualifiers: Dysphagia type: unspecified Qualified Code(s): R13.10 - Dysphagia, unspecified (3) Permanent atrial fibrillation: (4) Sick sinus syndrome: (5) S/P CABG x 3: (6) Mild left ventricular systolic dysfunction: (7) Status post placement of cardiac pacemaker: (8) Severe protein-calorie malnutrition: (9) Impaired mobility and activities of daily living: Plan This is a 84-year-old male who [facility] multifactorial functional decline in the setting of left femoral neck fracture s/p repair. He has continued impaired mobility and impaired independence with ADLs and IADLs requiring PT/OT/RELATIONSHIP ASSOCIATE 5-7 days/week 3 hours/day to maximize safety and independence with functional ability and self-care. -PT to improve patient's strength, endurance, bed mobility, transfers (sit- stand), standing balance, gait quality on level surfaces and stairs, coordination and functional ADL skills. We will also work to improve patient's safety awareness during transfers and ambulation. -OT for basic ADL retraining (bathing, dressing, toileting, continence, grooming, feeding, transferring), to increase activity tolerance and functional mobility to evaluate for adaptive assistive device. We will work to improve patient's endurance and educate patient on fall prevention and energy conservation techniques-pacing strategies and proper breathing techniques duringfunctional tasks. -Patient education -Pressure ulcer prophylaxis; encourage mobilization, frequent postural changes, pressure-relief techniques -DVT prophylaxis -Encourage deep breathing exercise incentive spirometry. -Monitor bladder. Toileting schedule. Continue current bladder management, with scans as needed and CIC if needed. Start bowel care program every day to obtain continence, prevent ileus. -Maintain fall precautions -Gait and balance retraining -Provision of the necessary gait aids and functional adaptive equipment to enhance the patient's a functional voodoo -Encourage deep breathing exercises and incentive spirometry -RD evaluation -Ensure adequate nutrition and hydration -Discharge planning. #. UPDATES -Plan for home next week. -MBS 11/26 with FI 11/27. -Continue current management -Watch pressure ulcer. -Continue PT/OT/ST as ordered -Hospitalist to assist with management of comorbid medical conditions #. Pain control: Tylenol scheduled #. Bowel and bladder: Continent of Bowel/bladder #. Skin: (pressure ulcer/surgical site) Pressure ulcer prophylaxis; encourage mobilization, frequent postural changes, pressure-relief techniques. OK to add Ventress salve. Can also use donut cushion when up in wheelchair if this is more comfortable #. Sleep: Optimize sleep/wake cycle DVT prophylaxis: Lovenox 40 mg daily Functional status: Impaired. Limited by pain, weakness Discharge planning: ELOS 1-2 weeks Advance care planning discussed with patient. Patient would like to be made DNR- CCA without intubation. Order placed. I spent 27 minutes for services, including [id number] encounter with the patient, discussion of the case, plan of care, and exam; and [id number] activities, such as reviewing pertinent product consultant documentation, recent therapynotes, laboratory and radiology studies, and discussion of case with care team including physician, nursing, case planner, and therapists. More than 50 % of time was spent on patient/family counseling or coordination ofcare. Documented By: Kayden Odom MD 11/25/24 1618 Signed By: <Electronically signed by Kayden Odom MD> 11/25/24 7[address] [facility] Work Phone: 1(127) 621-925203-02-2025 [place] [address] Physiatry(Rehab) Progress Note Signed Patient: Bravo Arce MR#: [id number] : 1940 Acct:[id number] Age/Sex: 84 / M Adm Date: 5 Loc: Room: 4I1043-2 Type: ADM IN Attending Dr: Jorge Clifton MD Copies to: ~ Date of Service: 11/25/2024 Subjective Subjective Narrative: Mr. Arce is a 84 year old male with past medical history of chronic A-fib s/p left atrial appendage ligation in May 2022, on Plavix for CAD s/p CABGx 3 vessels, mitral regurg s/p repair, permanent afib with sick sinus syndrome s/p pacemaker placement, parathyroid gland neoplasm s/p treatment in remission, BPH with LUTS, GERD who presents with multifactorial functional decline in the setting of left femoral neck fracture s/p femoral neck repair. He recently had a prolonged hospitalization. He presented to [facility] about 3 weeks ago after his witnessed an episode where he went blank and froze . She witnessed the event and lowered him to the floor per her report. He was intubated on the ambulance ride to [facility]. He was extubated after 48 hours. She tells me he was worked up for stroke or seizure, and was transferred to [facility] at family request after having a bad reaction to Geoalexis prompting reintubation. He was again subsequently extubated at after 2-3 days. She says the doctors at told her they did not have any answer as to the initial episode prompting his presentation to [facility]. She tells me that he has had 4 or 5 of these episodes over the past 20 years. He was unable to have an MRI due to incompatible pacemaker. He was discharged from [facility] to detention facility where hehad persistent hip pain. reports no trauma, but notes he has been having nagging hip pain since July. She reports urging the detention facility to do an x-ray which demonstrated right femoral neck fracture. He is now s/p femoral neck repair. He is also s/p PEG placement due to dysphagia Interval history: Seen and examined at bedside. No new issues at present. MBS tomorrow. FI 11/27. Ambulatory 235'. Can likely go home soon. Review of Systems Review of Systems All other systems reviewed & are negative unless noted below or in HPI Exam Physical Exam Vital Signs: Temp Pulse Resp BP Pulse Ox O2 Del Method O2 Flow Rate 97.2 F L 98 14 113/73 100 Room Air 1 11/25/24 16:00 11/25/24 16:00 11/25/24 16:00 11/25/24 16:00 11/25/24 16:00 11/25/24 16:00 11/23/24 00:00 FiO2 97 11/22/24 02:18 Narrative: Pleasant NAD Extremities well perfused No respiratory distress PEG tube in place. Abdomen soft, non distended Left lower extremity limited by pain. Otherwise moving all limbs spontaneously Minimal edema Objective Labs 11/19/24 04:28 11/19/24 04:28 Labs: Laboratory Results - last 24 hr 11/24/24 11/25/24 11/25/24 17:51 00:03 06:19 POC Glucose 138 101 107 11/25/24 11:41 POC Glucose 90 Medications and Allergies Allergies and Active Meds: Allergies gabapentin Allergy (Unknown, Verified 11/10/24 19:15) Unknown Reaction penicillin V Allergy (Unknown, Verified 11/10/24 19:15) Unknown Reaction Penicillins Allergy (Unknown, Verified 11/10/24 19:15) Unknown Reaction haloperidol (From Haldol) Allergy (Verified 11/10/24 19:15) HYPOXIA lorazepam (From Ativan) Allergy (Verified 11/10/24 19:15) HYPOXIA ziprasidone (From Geodon) Allergy (Verified 11/10/24 19:15) HYPOXIC Active Medications Generic Name Dose Route Start Last Admin Trade Name Freq PRN Reason Stop Dose Admin Acetaminophen 650 mg 11/24/24 18:00 11/25/24 12:13 Acetaminophen 650 Mg/20.3 Ml Oral.Susp PEG 11/24/25 17:59 650 mg Q6H JIM Administration Al Hydrox/Mg Hydrox/Simethicone 30 ml 11/18/24 20:47 Mag Hydrox/Al Hydrox/Simeth 30 Ml Udc PEG 11/18/25 13:58 Q4H PRN Indigestion Atorvastatin Calcium 20 mg 11/18/24 21:00 11/24/24 19:57 Atorvastatin 20 Mg Tablet PEG 11/18/25 20:59 20 mg QPM JIM Administration Bisacodyl 10 mg 11/18/24 13:59 Bisacodyl 10 Mg Supp.Rect MT 11/18/25 13:58 DAILY PRN Constipation Clopidogrel Bisulfate 75 mg 11/19/24 09:00 11/25/24 09:12 Clopidogrel Bisulfate 75 Mg Tablet PEG 11/19/25 08:59 75 mg DAILY JIM Administration Docusate Sodium 283 mg 11/18/24 13:59 Docusate Enema 283 Mg/5 Ml Enema MT 11/18/25 13:58 DAILY PRN Constipation Docusate Sodium 100 mg 11/18/24 22:48 Docusate Liquid 100 Mg/10 Ml Udc PEG 11/18/25 20:59 BID PRN constipation Enoxaparin Sodium 40 mg 11/20/24 10:00 11/25/24 09:14 Enoxaparin 40 Mg/0.4 Ml Syringe SUBCUT 11/20/25 09:59 40 mg DAILY@1000 JIM Administration Finasteride 5 mg 11/19/24 09:00 11/25/24 09:12 Finasteride 5 Mg Tablet PEG 11/19/25 08:59 5 mg DAILY JIM Administration Guaifenesin 10 ml 11/18/24 13:57 11/20/24 19:46 Guaifenesin Syrup 10 Ml Udc PEG 11/18/25 13:56 10 ml Q4HR PRN Administration congestion Lactulose 30 gm 11/18/24 20:47 Lactulose 20 Gm/30 Ml Udc PEG 11/18/25 13:58 DAILY PRN Constipation Latanoprost 1 drops 11/18/24 22:00 11/24/24 19:57 Latanoprost 0.005% Op Soln 50 Drops/2.5 Ml Bottle EYE-BOTH 11/18/25 21:59 1drops QHS [facility] Administration Lidocaine 1 patch 11/18/24 13:57 Lidocaine 4% Adh..Patch TOPICAL 11/18/25 13:56 Q12HR PRN pain Melatonin 10 mg 11/21/24 22:00 11/24/24 19:57 Melatonin 5 Mg Tablet PEG 11/21/25 21:59 10 mg QHS JIM Administration Metoprolol Tartrate 50 mg 11/18/24 21:00 11/25/24 09:12 Metoprolol Tartrate 50 Mg Tablet PEG 11/18/25 20:59 50 mg BID JIM Administration Polyethylene Glycol 17 gm 11/19/24 09:00 11/25/24 09:20 Polyethylene Glycol 3350 17 Gm Powd.Pack PEG 11/19/25 08:59 Not Given DAILY JIM Sennosides 17.2 mg 11/19/24 12:00 Sennosides 8.6 Mg Tablet PEG 11/19/25 11:59 DAILY@12 PRN If no BM in 2 days Sennosides 8.8 mg 11/18/24 22:00 11/24/24 19:57 Sennosides Syrup 8.8 Mg/5 Ml Udc PEG 11/18/25 21:59 8.8 mg QHS JIM Administration Sodium Chloride 0 ml 11/18/24 13:59 Sodium Chloride 0.9 % 10 Ml Syringe IV-PUSH 11/18/25 13:58 PRN PRN Flush Assessment/Plan Assessment/Plan (1) Closed displaced fracture of left femoral neck: (2) Dysphagia: Qualifiers: Dysphagia type: unspecified Qualified Code(s): R13.10 - Dysphagia, unspecified (3) Permanent atrial fibrillation: (4) Sick sinus syndrome: (5) S/P CABG x 3: (6) Mild left ventricular systolic dysfunction: (7) Status post placement of cardiac pacemaker: (8) Severe protein-calorie malnutrition: (9) Impaired mobility and activities of daily living: Plan This is a 84-year-old male who [facility] multifactorial functional decline in the setting of left femoral neck fracture s/p repair. He has continued impaired mobility and impaired independence with ADLs and IADLs requiring PT/OT/RELATIONSHIP ASSOCIATE 5-7 days/week 3 hours/day to maximize safety and independence with functional ability and self-care. -PT to improve patient's strength, endurance, bed mobility, transfers (sit- stand), standing balance, gait quality on level surfaces and stairs, coordination and functional ADL skills. We will also work to improve patient's safety awareness during transfers and ambulation. -OT for basic ADL retraining (bathing, dressing, toileting, continence, grooming, feeding, transferring), to increase activity tolerance and functional mobility to evaluate for adaptive assistive device. We will work to improve patient's endurance and educate patient on fall prevention and energy co nservation techniques-pacing strategies and proper breathing techniques duringfunctional tasks. -Patient education -Pressure ulcer prophylaxis; encourage mobilization, frequent postural changes, pressure-relief techniques -DVT prophylaxis -Encourage deep breathing exercise incentive spirometry. -Monitor bladder. Toileting schedule. Continue current bladder management, with scans as needed andCIC if needed. Start bowel care program every day to obtain continence, prevent ileus. -Maintain fall precautions -Gait and balance retraining -Provision of the necessary gait aids and functional adaptive equipment to enhance the patient's a functional voodoo -Encourage deep breathing exercises and incentive spirometry -RD evaluation -Ensure adequate nutrition and hydration -Discharge planning. #. UPDATES -Plan for home next week. -MBS 11/26 with FI 3/4. -Continue current management -Watch pressure ulcer. -Continue PT/OT/ST as ordered -Hospitalist to assist with management of comorbid medical conditions #. Pain control: Tylenol scheduled #. Bowel and bladder: Continent of Bowel/bladder #. Skin: (pressure ulcer/surgical site) Pressure ulcer prophylaxis; encourage mobilization, frequent postural changes, pressure-relief techniques. OK to add Ventress salve. Can also use donut cushion when up in wheelchair if this is more comfortable #. Sleep: Optimize sleep/wake cycle DVT prophylaxis: Lovenox 40 mg daily Functional status: Impaired. Limited by pain, weakness Discharge planning: ELOS 1-2 weeks Advance care planning discussed with patient. Patient would like to be made DNR- CCA without intubation. Order placed. I spent 27 minutes for services, including [id number] encounter with the patient, discussion of the case, plan of care, and exam; and [id number] activities, such as reviewing pertinent product consultant documentation, recent therapynotes, laboratory and radiology studies, and discussion of case with care team including physician, nursing, case planner, and therapists. More than 50 % of time was spent on patient/family counseling or coordination ofcare. Documented By: Kayden Odom MD 11/25/24 1618 Signed By: 11/25/24 1620 [facility]02-28-2025 Progress note Author Jen Acevedo [facility] Note Date/Time November 23, 2024 11:13am [facility] [address] [place] [address] Physiatry(Rehab) Progress Note Signed Patient: Bravo Arce MR#: [id number] : 1940 Acct:[id number] Age/Sex: 84 / M Adm Date: 5 Loc: Room: 0W1001-6 Type: ADM IN Attending Dr: Jorge Clifton MD Copies to: ~ Date of Service: 11/23/2024 Subjective Subjective Narrative: Mr. Arce is a 84 year old male with past medical history of chronic A-fib s/p left atrial appendage ligation in May 2022, on Plavix for CAD s/p CABGx 3 vessels, mitral regurg s/p repair, permanent afib with sick sinus syndrome s/p pacemaker placement, parathyroid gland neoplasm s/p treatment in remission, BPH with LUTS, GERD who presents with multifactorial functional decline in the setting of left femoral neck fracture s/p femoral neck repair. He recently had a prolonged hospitalization. He presented to [facility] about 3 weeks ago after his witnessed an episode where he went blank and froze . She witnessed the event and lowered him to the floor per her report. He was intubated on the ambulance ride to [facility]. He was extubated after 48 hours. She tells me he was worked up for stroke or seizure, and was transferred to [facility] at family request after having a bad reaction to Geodon prompting reintubation. He was again subsequently extubated at after 2-3 days. She says the doctors at told her they did not have any answer as to the initial episode prompting his presentation to [facility]. She tells me that he has had 4 or 5 of these episodes over the past 20 years. He was unable to have an MRI due to incompatible pacemaker. He was discharged from [facility] to detention facility where hehad persistent hip pain. reports no trauma, but notes he has been having nagging hip pain since July. She reports urging the detention facility to do an x- ray which demonstrated right femoral neck fracture. He is now s/p femoral neck repair. He is also s/p PEG placement due to dysphagia Interval history: Patient examined in his room while resting in bed. He is alert, pleasant, oriented x 3. Reports no pain or other discomfort. Mild occasional shortness of breath since he has been weaned off of oxygen, although maintains SpO2 is above 90% at all times. No chest pain or palpitations. No GI complaints at this time. Reported some mild nausea last night, which resolved. Overall, he continues to tolerate PEG tube feeds. Weight continues to fluctuate, although have gained a few pounds over the last several days. He does admit to some depression, stating it is psychologically hard for him being in the hospital for so long. Discussed pharmacological depression treatment which he defers at this time. Review of Systems Review of Systems All other systems reviewed & are negative unless noted below or in HPI Exam Physical Exam Vital Signs: Temp Pulse Resp BP Pulse Ox O2 Del Method O2 Flow Rate 97.6 F 67 18 122/74 95 Room Air 1 11/23/24 05:41 11/23/24 05:41 11/23/24 05:41 11/23/24 05:41 11/23/24 05:41 11/23/24 05:41 11/23/24 00:00 FiO2 97 11/22/24 02:18 Objective Labs 11/19/24 04:28 11/19/24 04:28 Labs: Laboratory Results - last 24 hr 11/22/24 11/22/24 11/22/24 11:35 15:56 18:00 POC Glucose 113 109 121 POC Glucose Comment Glu2: cleaned meter Glu2: cleaned meter Glu2: cleaned meter 11/22/24 11/23/24 23:41 05:37 POC Glucose 112 120 POC Glucose Comment Glu2: cleaned meter Glu2: cleaned meter Medications and Allergies Allergies and Active Meds: Allergies gabapentin Allergy (Unknown, Verified 11/10/24 19:15) Unknown Reaction penicillin V Allergy (Unknown, Verified 11/10/24 19:15) Unknown Reaction Penicillins Allergy (Unknown, Verified 11/10/24 19:15) Unknown Reaction haloperidol (From Haldol) Allergy (Verified 11/10/24 19:15) HYPOXIA lorazepam (From Ativan) Allergy (Verified 11/10/24 19:15) HYPOXIA ziprasidone (From Geodon) Allergy (Verified 11/10/24 19:15) HYPOXIC Active Medications Generic Name Dose Route Start Last Admin Trade Name Freq PRN Reason Stop Dose Admin Acetaminophen 975 mg 11/19/24 15:00 11/23/24 09:41 Acetaminophen 650 Mg/20.3 Ml Oral.Susp PEG 11/19/25 14:59 975 mg TID JIM Administration Al Hydrox/Mg Hydrox/Simethicone 30 ml 11/18/24 20:47 Mag Hydrox/Al Hydrox/Simeth 30 Ml Udc PEG 11/18/25 13:58 Q4H PRN Indigestion Atorvastatin Calcium 20 mg 11/18/24 21:00 11/22/24 20:20 Atorvastatin 20 Mg Tablet PEG 11/18/25 20:59 20 mg QPM JIM Administration Bisacodyl 10 mg 11/18/24 13:59 Bisacodyl 10 Mg Supp.Rect MT 11/18/25 13:58 DAILY PRN Constipation Clopidogrel Bisulfate 75 mg 11/19/24 09:00 11/23/24 09:42 Clopidogrel Bisulfate 75 Mg Tablet PEG 11/19/25 08:59 75 mg DAILY JIM Administration Docusate Sodium 283 mg 11/18/24 13:59 Docusate Enema 283 Mg/5 Ml Enema MT 11/18/25 13:58 DAILY PRN Constipation Docusate Sodium 100 mg 11/18/24 22:48 Docusate Liquid 100 Mg/10 Ml Udc PEG 11/18/25 20:59 BID PRN constipation Doxycycline Hyclate 100 mg 11/21/24 21:00 11/23/24 09:42 Doxycycline Hyclate 100 Mg Tablet PO 11/23/24 20:59 100 mg BID JIM Administration Enoxaparin Sodium 40 mg 11/20/24 10:00 11/23/24 09:45 Enoxaparin 40 Mg/0.4 Ml Syringe SUBCUT 11/20/25 09:59 40 mg DAILY@1000 JIM Administration Finasteride 5 mg 11/19/24 09:00 11/23/24 09:44 Finasteride 5 Mg Tablet PEG 11/19/25 08:59 5 mg DAILY JIM Administration Guaifenesin 10 ml 11/18/24 13:57 11/20/24 19:46 Guaifenesin Syrup 10 Ml Udc PEG 11/18/25 13:56 10 ml Q4HR PRN Administration congestion Lactulose 30 gm 11/18/24 20:47 Lactulose 20 Gm/30 Ml Udc PEG 11/18/25 13:58 DAILY PRN Constipation Latanoprost 1 drops 11/18/24 22:00 11/22/24 20:21 Latanoprost 0.005% Op Soln 50 Drops/2.5 Ml Bottle EYE-BOTH 11/18/25 21:59 1drops QHS JIM Administration Lidocaine 1 patch 11/18/24 13:57 Lidocaine 4% Adh..Patch TOPICAL 11/18/25 13:56 Q12HR PRN pain Melatonin 10 mg 11/21/24 22:00 11/22/24 20:20 Melatonin 5 Mg Tablet PEG 11/21/25 21:59 10 mg QHS JIM Administration Metoprolol Tartrate 50 mg 11/18/24 21:00 11/23/24 09:45 Metoprolol Tartrate 50 Mg Tablet PEG 11/18/25 20:59 Not Given BID JIM Polyethylene Glycol 17 gm 11/19/24 09:00 11/23/24 09:45 Polyethylene Glycol 3350 17 Gm Powd.Pack PEG 11/19/25 08:59 Not Given DAILY JIM Sennosides 17.2 mg 11/19/24 12:00 Sennosides 8.6 Mg Tablet PEG 11/19/25 11:59 DAILY@12 PRN If no BM in 2 days Sennosides 8.8 mg 11/18/24 22:00 11/22/24 20:20 Sennosides Syrup 8.8 Mg/5 Ml Udc PEG 11/18/25 21:59 8.8 mg QHS JIM Administration Sodium Chloride 0 ml 11/18/24 13:59 Sodium Chloride 0.9 % 10 Ml Syringe IV-PUSH 11/18/25 13:58 PRN PRN Flush Sodium Chloride 10 ml 11/19/24 06:00 11/23/24 05:47 Sodium Chloride 0.9 % 10 Ml Syringe IV-PUSH 11/19/25 05:59 10 ml Q8H JIM Administration Assessment/Plan Assessment/Plan (1) Closed displaced fracture of left femoral neck: (2) Dysphagia: Qualifiers: Dysphagia type: unspecified Qualified Code(s): R13.10 - Dysphagia, unspecified (3) Permanent atrial fibrillation: (4) Sick sinus syndrome: (5) S/P CABG x 3: (6) Mild left ventricular systolic dysfunction: (7) Status post placement of cardiac pacemaker: (8) Severe protein-calorie malnutrition: (9) Impaired mobility and activities of daily living: Plan This is a 84-year-old male who presents to [facility] to multifactorial functional decline in the setting of left femoral neck fracture s/p repair. He has continued impaired mobility and impaired independence with ADLs and IADLs requiring PT/OT/RELATIONSHIP ASSOCIATE 5-7 days/week 3 hours/day to maximize safety and independence with functional ability and self-care. -PT to improve patient's strength, endurance, bed mobility, transfers (sit- stand), standing balance, gait quality on level surfaces and stairs, coordination and functional ADL skills. We will also work to improve patient's safety awareness during transfers and ambulation. -OT for basic ADL retraining (bathing, dressing, toileting, continence, grooming, feeding, transferring), to increase activity tolerance and functional mobility to evaluate for adaptive assistive device. We will work to improve patient's endurance and educate patient on fall prevention and energy conservation techniques-pacing strategies and proper breathing techniques duringfunctional tasks. -Patient education -Pressure ulcer prophylaxis; encourage mobilization, frequent postural changes, pressure-relief techniques -DVT prophylaxis -Encourage deep breathing exercise incentive spirometry. -Monitor bladder. Toileting schedule. Continue current bladder management, with scans as needed and CIC if needed. Start bowel care program every day to obtain continence, prevent ileus. -Maintain fall precautions -Gait and balance retraining -Provision of the necessary gait aids and functional adaptive equipment to enhance the patient's a functional voodoo -Encourage deep breathing exercises and incentive spirometry -RD evaluation -Ensure adequate nutrition and hydration -Discharge planning. #. UPDATES -Monitor coccyx pressure injury. Discussed with the patient, agreeable to Mepilex border. -Monitor nutritional status/weights. -Continues to tolerate therapy. At this point he is ambulatory multiple functional distances with a walker and CGA. Able to do some stairs. SBA with transfers. -Continue Lipitor, Plavix for history of CAD -Not on chronic anticoagulation for afib. H/o left atrial appendage ligation -Continue PT/OT/ST as ordered -Hospitalist to assist with management of comorbid medical conditions #. Pain control: Tylenol scheduled #. Bowel and bladder: Continent of Bowel/bladder #. Skin: (pressure ulcer/surgical site) Pressure ulcer prophylaxis; encourage mobilization, frequent postural changes, pressure-relief techniques. OK to add Ventress salve. Can also use donut cushion when up in wheelchair if this is more comfortable #. Sleep: Optimize sleep/wake cycle DVT prophylaxis: Lovenox 40 mg daily Functional status: Impaired. Limited by pain, weakness Discharge planning: ELOS 1-2 weeks Advance care planning discussed with patient. Patient would like to be made DNR- CCA without intubation. Order placed. I spent 27 minutes for services, including [id number] encounter with the patient, discussion of the case, plan of care, and exam; and [id number]-ro-[id number] activities, such as reviewing pertinent product consultant documentation, recent therapynotes, laboratory and radiology studies, and discussion of case with care team including physician, nursing, case planner, and therapists. More than 50 % of time was spent on patient/family counseling or coordination ofcare. <Statement entered by Kayden Odom MD - 11/23/24 12:13> Patient was personally seen by me, Dr. Odom, on the day of encounter, reviewed the history and the relevant portions of the chart, including current orders, allied health and product consultant notes, labs/imaging and performed bales elements of exam and I formulated the plan of care and facilitated the medical decision making. I completed a substantive portion of this encounter, the medical decision makingportion of this note in its entirety, including Allied health note review, nursing note review, product consultant note review, discussion with nursing and case management, and more than 50% of my time was spent on counseling and coordination of care, time spent 19 minutes Documented By: Jen Acevedo APRN 11/23/24 1 104 Signed By: <Electronically signed by GILL Acevedo> 11/23/24 1116 <Electronically signed by Kayden Odom MD> 11/23/24 1213 [facility] Work Phone: [phone] 195-667402-28-2025 [place] [address] Physiatry(Rehab) Progress Note Signed Patient: Bravo Arce MR#: [id number] : 1940 Acct:[id number] Age/Sex: 84 / M Adm Date: 5 Loc: Room: [address] [place] [address] Type: ADM IN Attending Dr: Jorge Clifton MD Copies to: ~ Date of Service: 11/23/2024 Subjective Subjective Narrative: Mr. Arce is a 84 year old male with past medical history of chronic A-fib s/p left atrial appendage ligation in May 2022, on Plavix for CAD s/p CABGx 3 vessels, mitral regurg s/p repair, permanent afib with sick sinus syndrome s/p pacemaker placement, parathyroid gland neoplasm s/p treatment in remission, BPH with LUTS, GERD who presents with multifactorial functional decline in the setting of left femoral neck fracture s/p femoral neck repair. He recently had a prolonged hospitalization. He presented to [facility] about 3 weeks ago after his witnessed an episode where he went blank and froze . She witnessed the event and lowered him to the floor per her report. He was intubated on the ambulance ride to [facility]. He was extubated after 48 hours. She tells me he was worked up for stroke or seizure, and was transferred to [facility] at family request after having a bad reaction to Geodon prompting reintubation. He was again subsequently extubated at after 2-3 days. She says the doctors at told her they did not have any answer as to the initial episode prompting his presentation to [facility]. She tells me that he has had 4 or 5 of these episodes over the past 20 years. He was unable to have an MRI due to incompatible pacemaker. [facility] from [facility]. reports no trauma, but notes he has been having nagging hip pain since July. She reports urging the detention facility to do an x-ray which demonstrated right femoral neck fracture. He is now s/p femoral neck repair. He is also s/p PEG placement due to dysphagia Interval history: Patient examined in his room while resting in bed. He is alert, pleasant, oriented x 3. Reports no pain or other discomfort. Mild occasional shortness of breath since he has been weaned off of oxygen, although maintains SpO2 is above 90% at all times. No chest pain or palpitations. No GI complaints at this time. Reported some mild nausea last night, which resolved. Overall, he continues to tolerate PEG tube feeds. Weight continues to fluctuate, although have gained a few poundsover the last several days. He does admit to some depression, stating it is psychologically hard for him being in the hospital for so long. Discussed pharmacological depression treatment which he defers at this time. Review of Systems Review of Systems All other systems reviewed & are negative unless noted below or in HPI Exam Physical Exam Vital Signs: Temp Pulse Resp BP Pulse Ox O2 Del Method O2 Flow Rate 97.6 F 67 18 122/74 95 Room Air 1 11/23/24 05:41 11/23/24 05:41 11/23/24 05:41 11/23/24 05:41 11/23/24 05:41 11/23/24 05:41 11/23/24 00:00 FiO2 97 11/22/24 02:18 Objective Labs 11/19/24 04:28 11/19/24 04:28 Labs: Laboratory Results - last 24 hr 11/22/24 11/22/24 11/22/24 11:35 15:56 18:00 POC Glucose 113 109 121 POC Glucose Comment Glu2: cleaned meter Glu2: cleaned meter Glu2: cleaned meter 11/22/24 11/23/24 23:41 05:37 POC Glucose 112 120 POC Glucose Comment Glu2: cleaned meter Glu2: cleaned meter Medications and Allergies Allergies and Active Meds: Allergies gabapentin Allergy (Unknown, Verified 11/10/24 19:15) Unknown Reaction penicillin V Allergy (Unknown, Verified 11/10/24 19:15) Unknown Reaction Penicillins Allergy (Unknown, Verified 11/10/24 19:15) Unknown Reaction haloperidol (From Haldol) Allergy (Verified 11/10/24 19:15) HYPOXIA lorazepam (From Ativan) Allergy (Verified 11/10/24 19:15) HYPOXIA ziprasidone (From Geodon) Allergy (Verified 11/10/24 19:15) HYPOXIC Active Medications Generic Name Dose Route Start Last Admin Trade Name Freq PRN Reason Stop Dose Admin Acetaminophen 975 mg 11/19/24 15:00 11/23/24 09:41 Acetaminophen 650 Mg/20.3 Ml Oral.Susp PEG 11/19/25 14:59 975 mg TID JIM Administration Al Hydrox/Mg Hydrox/Simethicone 30 ml 11/18/24 20:47 Mag Hydrox/Al Hydrox/Simeth 30 Ml Udc PEG 11/18/25 13:58 Q4H PRN Indigestion Atorvastatin Calcium 20 mg 11/18/24 21:00 11/22/24 20:20 Atorvastatin 20 Mg Tablet PEG 11/18/25 20:59 20 mg QPM JIM Administration Bisacodyl 10 mg 11/18/24 13:59 Bisacodyl 10 Mg Supp.Rect MT 11/18/25 13:58 DAILY PRN Constipation Clopidogrel Bisulfate 75 mg 11/19/24 09:00 11/23/24 09:42 Clopidogrel Bisulfate 75 Mg Tablet PEG 11/19/25 08:59 75 mg DAILY JIM Administration Docusate Sodium 283 mg 11/18/24 13:59 Docusate Enema 283 Mg/5 Ml Enema MT 11/18/25 13:58 DAILY PRN Constipation Docusate Sodium 100 mg 11/18/24 22:48 Docusate Liquid 100 Mg/10 Ml Udc PEG 11/18/25 20:59 BID PRN constipation Doxycycline Hyclate 100 mg 11/21/24 21:00 11/23/24 09:42 Doxycycline Hyclate 100 Mg Tablet PO 11/23/24 20:59 100 mg BID JIM Administration Enoxaparin Sodium 40 mg 11/20/24 10:00 11/23/24 09:45 Enoxaparin 40 Mg/0.4 Ml Syringe SUBCUT 11/20/25 09:59 40 mg DAILY@1000 JIM Administration Finasteride 5 mg 11/19/24 09:00 11/23/24 09:44 Finasteride 5 Mg Tablet PEG 11/19/25 08:59 5 mg DAILY JIM Administration Guaifenesin 10 ml 11/18/24 13:57 11/20/24 19:46 Guaifenesin Syrup 10 Ml Udc PEG 11/18/25 13:56 10 ml Q4HR PRN Administration congestion Lactulose 30 gm 11/18/24 20:47 Lactulose 20 Gm/30 Ml Udc PEG 11/18/25 13:58 DAILY PRN Constipation Latanoprost 1 drops 11/18/24 22:00 11/22/24 20:21 Latanoprost 0.005% Op Soln 50 Drops/2.5 Ml Bottle EYE-BOTH 11/18/25 21:59 1drops QHS [facility] Administration Lidocaine 1 patch 11/18/24 13:57 Lidocaine 4% Adh..Patch TOPICAL 11/18/25 13:56 Q12HR PRN pain Melatonin 10 mg 11/21/24 22:00 11/22/24 20:20 Melatonin 5 Mg Tablet PEG 11/21/25 21:59 10 mg QHS JIM Administration Metoprolol Tartrate 50 mg 11/18/24 21:00 11/23/24 09:45 Metoprolol Tartrate 50 Mg Tablet PEG 11/18/25 20:59 Not Given BID JIM Polyethylene Glycol 17 gm 11/19/24 09:00 11/23/24 09:45 Polyethylene Glycol 3350 17 Gm Powd.Pack PEG 11/19/25 08:59 Not Given DAILY [facility] Sennosides 17.2 mg 11/19/24 12:00 Sennosides 8.6 Mg Tablet PEG 11/19/25 11:59 DAILY@12 PRN If no BM in 2 days Sennosides 8.8 mg 11/18/24 22:00 11/22/24 20:20 Sennosides Syrup 8.8 Mg/5 Ml Udc PEG 11/18/25 21:59 8.8 mg QHS JIM Administration Sodium Chloride 0 ml 11/18/24 13:59 Sodium Chloride 0.9 % 10 Ml Syringe IV-PUSH 11/18/25 13:58 PRN PRN Flush Sodium Chloride 10 ml 11/19/24 06:00 11/23/24 05:47 Sodium Chloride 0.9 % 10 Ml Syringe IV-PUSH 11/19/25 05:59 10 ml Q8H JIM Administration Assessment/Plan Assessment/Plan (1) Closed displaced fracture of left femoral neck: (2) Dysphagia: Qualifiers: Dysphagia type: unspecified Qualified Code(s): R13.10 - Dysphagia, unspecified (3) Permanent atrial fibrillation: (4) Sick sinus syndrome: (5) S/P CABG x 3: (6) Mild left ventricular systolic dysfunction: (7) Status post placement of cardiac pacemaker: (8) Severe protein-calorie malnutrition: (9) Impaired mobility and activities of daily living: Plan This is a 84-year-old male who [facility] to multifactorial functional decline in the setting of left femoral neck fracture s/p repair. He has continued impaired mobility and impaired independence with ADLs and IADLs requiring PT/OT/RELATIONSHIP ASSOCIATE 5-7 days/week 3 hours/day to maximize safety and independence with functional ability and self-care. -PT to improve patient's strength, endurance, bed mobility, transfers (sit- stand), standing balance, gait quality on level surfaces and stairs, coordination and functional ADL skills. We will also work to improve patient's safety awareness during transfers and ambulation. -OT for basic ADL retraining (bathing, dressing, toileting, continence, grooming, feeding, transferring), to increase activity tolerance and functional mobility to evaluate for adaptive assistive device. We will work to improve patient's endurance and educate patient on fall prevention and energy co nservation techniques-pacing strategies and proper breathing techniques duringfunctional tasks. -Patient education -Pressure ulcer prophylaxis; encourage mobilization, frequent postural changes, pressure-relief techniques -DVT prophylaxis -Encourage deep breathing exercise incentive spirometry. -Monitor bladder. Toileting schedule. Continue current bladder management, with scans as needed andCIC if needed. Start bowel care program every day to obtain continence, prevent ileus. -Maintain fall precautions -Gait and balance retraining -Provision of the necessary gait aids and functional adaptive equipment to enhance the patient's a functional voodoo -Encourage deep breathing exercises and incentive spirometry -RD evaluation -Ensure adequate nutrition and hydration -Discharge planning. #. UPDATES -Monitor coccyx pressure injury. Discussed with the patient, agreeable to Mepilex border. -Monitor nutritional status/weights. -Continues to tolerate therapy. At this point he is ambulatory multiple functional distances with awalker and CGA. Able to do some stairs. SBA with transfers. -Continue Lipitor, Plavix for history of CAD -Not on chronic anticoagulation for afib. H/o left atrial appendage ligation -Continue PT/OT/ST as ordered -Hospitalist to assist with management of comorbid medical conditions #. Pain control: Tylenol scheduled #. Bowel and bladder: Continent of Bowel/bladder #. Skin: (pressure ulcer/surgical site) Pressure ulcer prophylaxis; encourage mobilization, frequent postural changes, pressure-relief techniques. OK to add Ventress salve. Can also use donut cushion when up in wheelchair if this is more comfortable #. Sleep: Optimize sleep/wake cycle DVT prophylaxis: Lovenox 40 mg daily Functional status: Impaired. Limited by pain, weakness Discharge planning: ELOS 1-2 weeks Advance care planning discussed with patient. Patient would like to be made DNR- CCA without intubation. Order placed. I spent 27 minutes for services, including [id number] encounter with the patient, discussion of the case, plan of care, and exam; and [id number] activities, such as reviewing pertinent product consultant documentation, recent therapynotes, laboratory and radiology studies, and discussion of case with care team including physician, nursing, case planner, and therapists. More than 50 % of time was spent on patient/family counseling or coordination ofcare. Patient was personally seen by me, Dr. Odom, on the day of encounter, reviewed the history and therelevant portions of the chart, including current orders, allied health and product consultant notes, labs/imaging and performed bales elements of exam and I formulated the plan of care and facilitated the medical decision making. I completed a substantive portion of this encounter, the medical decision makingportion of this note in its entirety, including Allied health note review, nursing note review, product consultant note review,discussion with nursing and case management, and more than 50% of my time was spent on counseling and coordination of care, time spent 19 minutes Documented By: Jen Acevedo APRN 11/23/24 1 104 Signed By: 11/23/24 1116 11/23/24 1213 [facility]02-27-2025 Progress note Author Jorge Clifton [facility] Note Date/Time November 22, 2024 1:13pm [facility] [address] [place] [address] Physiatry(Rehab) Progress Note Signed Patient: Bravo Arce MR#: [id number] : 1940 Acct:[id number] Age/Sex: 84 / M Adm Date: 5 Loc: Room: 2I3883-0 Type: ADM IN Attending Dr: Jorge Clifton MD Copies to: ~ Date of Service: 11/22/2024 Subjective Subjective Narrative: Mr. Arce is a 84 year old male with past medical history of chronic A-fib s/p left atrial appendage ligation in May 2022, on Plavix for CAD s/p CABGx 3 vessels, mitral regurg s/p repair, permanent afib with sick sinus syndrome s/p pacemaker placement, parathyroid gland neoplasm s/p treatment in remission, BPH with LUTS, GERD who presents with multifactorial functional decline in the setting of left femoral neck fracture s/p femoral neck repair. He recently had a prolonged hospitalization. He presented to [facility] about 3 weeks ago after his witnessed an episode where he went blank and froze . She witnessed the event and lowered him to the floor per her report. He was intubated on the ambulance ride to [facility]. He was extubated after 48 hours. She tells me he was worked up for stroke or seizure, and was transferred to [facility] at family request [facility] re[facility]. He was again subsequently extubated at after 2-3 days. She says the doctors at told her they did not have any answer as to the initial episode prompting his presentation to [facility]. She tells me that he has had 4 or 5 of these episodes over the past 20 years. He was unable to have an MRI due to incompatible pacemaker. He was discharged from [facility] to detention facility where hehad persistent hip pain. reports no trauma, but notes he has been having nagging hip pain since July. She reports urging the detention facility to do an x- ray which demonstrated right femoral neck fracture. He is now s/p femoral neck repair. He is also s/p PEG placement due to dysphagia Interval history: Patient was seen in the room today. Spouse at bedside. He tells me that he is doing well today. No major concerns. Is having some loose stool, but nothing severe. Biggest concern is regarding pressure injury on his coccyx. Reports thatit is painful. Spouse is wondering if we can add Ventress salve which she brought from home. Also wondering if adding a donut for extra cushioning would be beneficial. Review of Systems Review of Systems All other systems reviewed & are negative unless noted below or in HPI Exam Physical Exam Vital Signs: Temp Pulse Resp BP Pulse Ox O2 Del Method O2 Flow Rate 97.4 F L 110 H 16 124/64 96 Nasal Cannula 1 11/22/24 06:00 11/22/24 06:00 11/22/24 06:00 11/22/24 06:00 11/22/24 06:00 11/22/24 07:30 11/22/24 07:30 FiO2 97 11/22/24 02:18 Narrative: Pleasant NAD Extremities well perfused No respiratory distress PEG tube in place. Abdomen soft, non distended Left lower extremity limited by pain. Otherwise moving all limbs spontaneously Minimal edema Objective Labs 11/19/24 04:28 11/19/24 04:28 Labs: Laboratory Results - last 24 hr 11/21/24 11/21/24 11/22/24 19:09 23:56 06:01 POC Glucose 106 122 130 POC Glucose Comment Glu2: cleaned meter Glu2: cleaned meter 11/22/24 11:35 POC Glucose 113 POC Glucose Comment Glu2: cleaned meter Medications and Allergies Allergies and Active Meds: Allergies gabapentin Allergy (Unknown, Verified 11/10/24 19:15) Unknown Reaction penicillin V Allergy (Unknown, Verified 11/10/24 19:15) Unknown Reaction Penicillins Allergy (Unknown, Verified 11/10/24 19:15) Unknown Reaction haloperidol (From Haldol) Allergy (Verified 11/10/24 19:15) HYPOXIA lorazepam (From Ativan) Allergy (Verified 11/10/24 19:15) HYPOXIA ziprasidone (From Geodon) Allergy (Verified 11/10/24 19:15) HYPOXIC Active Medications Generic Name Dose Route Start Last Admin Trade Name Freq PRN Reason Stop Dose Admin Acetaminophen 975 mg 11/19/24 15:00 11/22/24 09:38 Acetaminophen 650 Mg/20.3 Ml Oral.Susp PEG 11/19/25 14:59 975 mg TID JIM Administration Al Hydrox/Mg Hydrox/Simethicone 30 ml 11/18/24 20:47 Mag Hydrox/Al Hydrox/Simeth 30 Ml Udc PEG 11/18/25 13:58 Q4H PRN Indigestion Atorvastatin Calcium 20 mg 11/18/24 21:00 11/21/24 20:00 Atorvastatin 20 Mg Tablet PEG 11/18/25 20:59 20 mg QPM JIM Administration Bisacodyl 10 mg 11/18/24 13:59 Bisacodyl 10 Mg Supp.Rect MT 11/18/25 13:58 DAILY PRN Constipation Clopidogrel Bisulfate 75 mg 11/19/24 09:00 11/22/24 09:38 Clopidogrel Bisulfate 75 Mg Tablet PEG 11/19/25 08:59 75 mg DAILY JIM Administration Docusate Sodium 283 mg 11/18/24 13:59 Docusate Enema 283 Mg/5 Ml Enema MT 11/18/25 13:58 DAILY PRN Constipation Docusate Sodium 100 mg 11/18/24 22:48 Docusate Liquid 100 Mg/10 Ml Udc PEG 11/18/25 20:59 BID PRN constipation Doxycycline Hyclate 100 mg 11/21/24 21:00 11/22/24 09:39 Doxycycline Hyclate 100 Mg Tablet PO 11/23/24 20:59 100 mg BID JIM Administration Enoxaparin Sodium 40 mg 11/20/24 10:00 11/22/24 09:39 Enoxaparin 40 Mg/0.4 Ml Syringe SUBCUT 11/20/25 09:59 40 mg DAILY@1000 JIM Administration Finasteride 5 mg 11/19/24 09:00 11/22/24 09:45 Finasteride 5 Mg Tablet PEG 11/19/25 08:59 5 mg DAILY JIM Administration Guaifenesin 10 ml 11/18/24 13:57 11/20/24 19:46 Guaifenesin Syrup 10 Ml Udc PEG 11/18/25 13:56 10 ml Q4HR PRN Administration congestion Lactulose 30 gm 11/18/24 20:47 Lactulose 20 Gm/30 Ml Udc PEG 11/18/25 13:58 DAILY PRN Constipation Latanoprost 1 drops 11/18/24 22:00 11/21/24 22:27 Latanoprost 0.005% Op Soln 50 Drops/2.5 Ml Bottle EYE-BOTH 11/18/25 21:59 1drops QHS JIM Administration Lidocaine 1 patch 11/18/24 13:57 Lidocaine 4% Adh..Patch TOPICAL 11/18/25 13:56 Q12HR PRN pain Melatonin 10 mg 11/21/24 22:00 11/21/24 22:22 Melatonin 5 Mg Tablet PEG 11/21/25 21:59 10 mg QHS JIM Administration Metoprolol Tartrate 50 mg 11/18/24 21:00 11/22/24 09:38 Metoprolol Tartrate 50 Mg Tablet PEG 11/18/25 20:59 50 mg BID JIM Administration Polyethylene Glycol 17 gm 11/19/24 09:00 11/22/24 09:44 Polyethylene Glycol 3350 17 Gm Powd.Pack PEG 11/19/25 08:59 Not Given DAILY JIM Sennosides 17.2 mg 11/19/24 12:00 Sennosides 8.6 Mg Tablet PEG 11/19/25 11:59 DAILY@12 PRN If no BM in 2 days Sennosides 8.8 mg 11/18/24 22:00 11/21/24 22:22 Sennosides Syrup 8.8 Mg/5 Ml Udc PEG 11/18/25 21:59 8.8 mg QHS JIM Administration Sodium Chloride 0 ml 11/18/24 13:59 Sodium Chloride 0.9 % 10 Ml Syringe IV-PUSH 11/18/25 13:58 PRN PRN Flush Sodium Chloride 10 ml 11/19/24 06:00 11/22/24 06:41 Sodium Chloride 0.9 % 10 Ml Syringe IV-PUSH 11/19/25 05:59 10 ml Q8H JIM Administration Assessment/Plan Assessment/Plan (1) Closed displaced fracture of left femoral neck: (2) Dysphagia: Qualifiers: Dysphagia type: unspecified Qualified Code(s): R13.10 - Dysphagia, unspecified (3) Permanent atrial fibrillation: (4) Sick sinus syndrome: (5) S/P CABG x 3: (6) Mild left ventricular systolic dysfunction: (7) Status post placement of cardiac pacemaker: (8) Severe protein-calorie malnutrition: (9) Impaired mobility and activities of daily living: Plan This is a 84-year-old male who [facility] multifactorial functional decline in the setting of left femoral neck fracture s/p repair. He has continued impaired mobility and impaired independence with ADLs and IADLs requiring PT/OT/RELATIONSHIP ASSOCIATE 5-7 days/week 3 hours/day to maximize safety and independence with functional ability and self-care. -PT to improve patient's strength, endurance, bed mobility, transfers (sit- stand), standing balance, gait quality on level surfaces and stairs, coordination and functional ADL skills. We will also work to improve patient's safety awareness during transfers and ambulation. -OT for basic ADL retraining (bathing, dressing, toileting, continence, grooming, feeding, transferring), to increase activity tolerance and functional mobility to evaluate for adaptive assistive device. We will work to improve patient's endurance and educate patient on fall prevention and energy conservation techniques-pacing strategies and proper breathing techniques duringfunctional tasks. -Patient education -Pressure ulcer prophylaxis; encourage mobilization, frequent postural changes, pressure-relief techniques -DVT prophylaxis -Encourage deep breathing exercise incentive spirometry. -Monitor bladder. Toileting schedule. Continue current bladder management, with scans as needed and CIC if needed. Start bowel care program every day to obtain continence, prevent ileus. -Maintain fall precautions -Gait and balance retraining -Provision of the necessary gait aids and functional adaptive equipment to enhance the patient's a functional voodoo -Encourage deep breathing exercises and incentive spirometry -RD evaluation -Ensure adequate nutrition and hydration -Discharge planning. #. UPDATES -Stable from clinical standpoint. No acute concerns or complaints. -Continues to work with therapy, showing appropriate progress so far. -Continue Lipitor, Plavix for history of CAD -Not on chronic anticoagulation for afib. H/o left atrial appendage ligation -Continue PT/OT/ST as ordered -Hospitalist to assist with management of comorbid medical conditions #. Pain control: Tylenol scheduled #. Bowel and bladder: Continent of Bowel/bladder #. Skin: (pressure ulcer/surgical site) Pressure ulcer prophylaxis; encourage mobilization, frequent postural changes, pressure-relief techniques. OK to add Ventress salve. Can also use donut cushion when up in wheelchair if this is more comfortable #. Sleep: Optimize sleep/wake cycle DVT prophylaxis: Lovenox 40 mg daily Functional status: Impaired. Limited by pain, weakness Discharge planning: ELOS 1-2 weeks Advance care planning discussed with patient. Patient would like to be made DNR- CCA without intubation. Order placed. I spent 30 minutes for services, including [id number] encounter with the patient, discussion of the case, plan of care, and exam; and [id number] activities, such as reviewing pertinent product consultant documentation, recent therapynotes, laboratory and radiology studies, and discussion of case with care team including physician, nursing, case planner, and therapists. More than 50 % of time was spent on patient/family counseling or coordination ofcare. Documented By: Jorge Clifton MD [id number] Signed By: <Electronically signed by Jorge Clifton MD> 11/22/24 1413 [facility] Work Phone: [phone]) 943-447502-27-2025 [place] [address] Physiatry(Rehab) Progress Note Signed Patient: Bravo Arce MR#: [id number] : 1940 Acct:[id number] Age/Sex: 84 / M Adm Date: 5 Loc: Room: [address] [place] [address] Type: ADM IN Attending Dr: Jorge Clifton MD Copies to: ~ Date of Service: 11/22/2024 Subjective Subjective Narrative: Mr. Arce is a 84 year old male with past medical history of chronic A-fib s/p left atrial appendage ligation in May 2022, on Plavix for CAD s/p CABGx 3 vessels, mitral regurg s/p repair, permanent afib with sick sinus syndrome s/p pacemaker placement, parathyroid gland neoplasm s/p treatment in remission, BPH with LUTS, GERD who presents with multifactorial functional decline in the setting of left femoral neck fracture s/p femoral neck repair. He recently had a prolonged hospitalization. He presented to [facility] about 3 weeks ago after his witnessed an episode where he went blank and froze . She witnessed the event and lowered him to the floor per her report. He was intubated on the ambulance ride to [facility]. He was extubated after 48 hours. She tells me he was worked up for stroke or seizure, and was transferred to [facility] at family request after having a bad reaction to Geodon prompting reintubation. He was again subsequently extubated at after 2-3 days. She says the doctors at told her they did not have any answer as to the initial episode prompting his presentation to [facility]. She tells me that he has had 4 or 5 of these episodes over the past 20 years. He was unable to have an MRI due to incompatible pacemaker. He was discharged from [facility] to detention facility where hehad persistent hip pain. reports no trauma, but notes he has been having nagging hip pain since July. She reports urging the detention facility to do an x-ray which demonstrated right femoral neck fracture. He is now s/p femoral neck repair. He is also s/p PEG placement due to dysphagia Interval history: Patient was seen in the room today. Spouse at bedside. He tells me that he is doing well today. No major concerns. Is having some loose stool, but nothing severe. Biggest concern is regarding pressure injury on his coccyx. Reports thatit is painful. Spouse is wondering if we can add Ventress salve which she brought from home. Also wondering if adding a donut for extra cushioning would be beneficial. Review of Systems Review of Systems All other systems reviewed & are negative unless noted below or in HPI Exam Physical Exam Vital Signs: Temp Pulse Resp BP Pulse Ox O2 Del Method O2 Flow Rate 97.4 F L 110 H 16 124/64 96 Nasal Cannula 1 11/22/24 06:00 11/22/24 06:00 11/22/24 06:00 11/22/24 06:00 11/22/24 06:00 11/22/24 07:30 11/22/24 07:30 FiO2 97 11/22/24 02:18 Narrative: Pleasant NAD Extremities well perfused No respiratory distress PEG tube in place. Abdomen soft, non distended Left lower extremity limited by pain. Otherwise moving all limbs spontaneously Minimal edema Objective Labs 11/19/24 04:28 11/19/24 04:28 Labs: Laboratory Results - last 24 hr 11/21/24 11/21/24 11/22/24 19:09 23:56 06:01 POC Glucose 106 122 130 POC Glucose Comment Glu2: cleaned meter Glu2: cleaned meter 11/22/24 11:35 POC Glucose 113 POC Glucose Comment Glu2: cleaned meter Medications and Allergies Allergies and Active Meds: Allergies gabapentin Allergy (Unknown, Verified 11/10/24 19:15) Unknown Reaction penicillin V Allergy (Unknown, Verified 11/10/24 19:15) Unknown Reaction Penicillins Allergy (Unknown, Verified 11/10/24 19:15) Unknown Reaction haloperidol (From Haldol) Allergy (Verified 11/10/24 19:15) HYPOXIA lorazepam (From Ativan) Allergy (Verified 11/10/24 19:15) HYPOXIA ziprasidone (From Geodon) Allergy (Verified 11/10/24 19:15) HYPOXIC Active Medications Generic Name Dose Route Start Last Admin Trade Name Freq PRN Reason Stop Dose Admin Acetaminophen 975 mg 11/19/24 15:00 11/22/24 09:38 Acetaminophen 650 Mg/20.3 Ml Oral.Susp PEG 11/19/25 14:59 975 mg TID JIM Administration Al Hydrox/Mg Hydrox/Simethicone 30 ml 11/18/24 20:47 Mag Hydrox/Al Hydrox/Simeth 30 Ml Udc PEG 11/18/25 13:58 Q4H PRN Indigestion Atorvastatin Calcium 20 mg 11/18/24 21:00 11/21/24 20:00 Atorvastatin 20 Mg Tablet PEG 11/18/25 20:59 20 mg QPM JIM Administration Bisacodyl 10 mg 11/18/24 13:59 Bisacodyl 10 Mg Supp.Rect MT 11/18/25 13:58 DAILY PRN Constipation Clopidogrel Bisulfate 75 mg 11/19/24 09:00 11/22/24 09:38 Clopidogrel Bisulfate 75 Mg Tablet PEG 11/19/25 08:59 75 mg DAILY JIM Administration Docusate Sodium 283 mg 11/18/24 13:59 Docusate Enema 283 Mg/5 Ml Enema MT 11/18/25 13:58 DAILY PRN Constipation Docusate Sodium 100 mg 11/18/24 22:48 Docusate Liquid 100 Mg/10 Ml Udc PEG 11/18/25 20:59 BID PRN constipation Doxycycline Hyclate 100 mg 11/21/24 21:00 11/22/24 09:39 Doxycycline Hyclate 100 Mg Tablet PO 11/23/24 20:59 100 mg BID JIM Administration Enoxaparin Sodium 40 mg 11/20/24 10:00 11/22/24 09:39 Enoxaparin 40 Mg/0.4 Ml Syringe SUBCUT 11/20/25 09:59 40 mg DAILY@1000 JIM Administration Finasteride 5 mg 11/19/24 09:00 11/22/24 09:45 Finasteride 5 Mg Tablet PEG 11/19/25 08:59 5 mg DAILY JIM Administration Guaifenesin 10 ml 11/18/24 13:57 11/20/24 19:46 Guaifenesin Syrup 10 Ml Udc PEG 11/18/25 13:56 10 ml Q4HR PRN Administration congestion Lactulose 30 gm 11/18/24 20:47 Lactulose 20 Gm/30 Ml Udc PEG 11/18/25 13:58 DAILY PRN Constipation Latanoprost 1 drops 11/18/24 22:00 11/21/24 22:27 Latanoprost 0.005% Op Soln 50 Drops/2.5 Ml Bottle EYE-BOTH 11/18/25 21:59 1drops QHS [facility] Administration Lidocaine 1 patch 11/18/24 13:57 Lidocaine 4% Adh..Patch TOPICAL 11/18/25 13:56 Q12HR PRN pain Melatonin 10 mg 11/21/24 22:00 11/21/24 22:22 Melatonin 5 Mg Tablet PEG 11/21/25 21:59 10 mg QHS JIM Administration Metoprolol Tartrate 50 mg 11/18/24 21:00 11/22/24 09:38 Metoprolol Tartrate 50 Mg Tablet PEG 11/18/25 20:59 50 mg BID JIM Administration Polyethylene Glycol 17 gm 11/19/24 09:00 11/22/24 09:44 Polyethylene Glycol 3350 17 Gm Powd.Pack PEG 11/19/25 08:59 Not Given DAILY [facility] Sennosides 17.2 mg 11/19/24 12:00 Sennosides 8.6 Mg Tablet PEG 11/19/25 11:59 DAILY@12 PRN If no BM in 2 days Sennosides 8.8 mg 11/18/24 22:00 11/21/24 22:22 Sennosides Syrup 8.8 Mg/5 Ml Udc PEG 11/18/25 21:59 8.8 mg QHS JIM Administration Sodium Chloride 0 ml 11/18/24 13:59 Sodium Chloride 0.9 % 10 Ml Syringe IV-PUSH 11/18/25 13:58 PRN PRN Flush Sodium Chloride 10 ml 11/19/24 06:00 11/22/24 06:41 Sodium Chloride 0.9 % 10 Ml Syringe IV-PUSH 11/19/25 05:59 10 ml Q8H JIM Administration Assessment/Plan Assessment/Plan (1) Closed displaced fracture of left femoral neck: (2) Dysphagia: Qualifiers: Dysphagia type: unspecified Qualified Code(s): R13.10 - Dysphagia, unspecified (3) Permanent atrial fibrillation: (4) Sick sinus syndrome: (5) S/P CABG x 3: (6) Mild left ventricular systolic dysfunction: (7) Status post placement of cardiac pacemaker: (8) Severe protein-calorie malnutrition: (9) Impaired mobility and activities of daily living: Plan This is a 84-year-old male who [facility] multifactorial functional decline in the setting of left femoral neck fracture s/p repair. He has continued impaired mobility and impaired independence with ADLs and IADLs requiring PT/OT/RELATIONSHIP ASSOCIATE 5-7 days/week 3 hours/day to maximize safety and independence with functional ability and self-care. -PT to improve patient's strength, endurance, bed mobility, transfers (sit- stand), standing balance, gait quality on level surfaces and stairs, coordination and functional ADL skills. We will also work to improve patient's safety awareness during transfers and ambulation. -OT for basic ADL retraining (bathing, dressing, toileting, continence, grooming, feeding, transferring), to increase activity tolerance and functional mobility to evaluate for adaptive assistive device. We will work to improve patient's endurance and educate patient on fall prevention and energy co nservation techniques-pacing strategies and proper breathing techniques duringfunctional tasks. -Patient education -Pressure ulcer prophylaxis; encourage mobilization, frequent postural changes, pressure-relief techniques -DVT prophylaxis -Encourage deep breathing exercise incentive spirometry. -Monitor bladder. Toileting schedule. Continue current bladder management, with scans as needed andCIC if needed. Start bowel care program every day to obtain continence, prevent ileus. -Maintain fall precautions -Gait and balance retraining -Provision of the necessary gait aids and functional adaptive equipment to enhance the patient's a functional voodoo -Encourage deep breathing exercises and incentive spirometry -RD evaluation -Ensure adequate nutrition and hydration -Discharge planning. #. UPDATES -Stable from clinical standpoint. No acute concerns or complaints. -Continues to work with therapy, showing appropriate progress so far. -Continue Lipitor, Plavix for history of CAD -Not on chronic anticoagulation for afib. H/o left atrial appendage ligation -Continue PT/OT/ST as ordered -Hospitalist to assist with management of comorbid medical conditions #. Pain control: Tylenol scheduled #. Bowel and bladder: Continent of Bowel/bladder #. Skin: (pressure ulcer/surgical site) Pressure ulcer prophylaxis; encourage mobilization, frequent postural changes, pressure-relief techniques. OK to add Ventress salve. Can also use donut cushion when up in wheelchair if this is more comfortable #. Sleep: Optimize sleep/wake cycle DVT prophylaxis: Lovenox 40 mg daily Functional status: Impaired. Limited by pain, weakness Discharge planning: ELOS 1-2 weeks Advance care planning discussed with patient. Patient would like to be made DNR- CCA without intubation. Order placed. I spent 30 minutes for services, including [id number] encounter with the patient, discussion of the case, plan of care, and exam; and [id number] activities, such as reviewing pertinent product consultant documentation, recent therapynotes, laboratory and radiology studies, and discussion of case with care team including physician, nursing, case planner, and therapists. More than 50 % of time was spent on patient/family counseling or coordination ofcare. Documented By: Jorge Clifton MD 1411 Signed By: 11/22/24 1413 [facility]02-26-2025 Progress note Author Jen Acevedo [facility] Note Date/Time November 21, 2024 12:50pm [facility] [address] [place] [address] Physiatry(Rehab) Progress Note Signed Patient: Bravo Arce MR#: [id number] : 1940 Acct:[id number] Age/Sex: 84 / M Adm Date: 5 Loc: 5T Room: 9J4966-2 Type: ADM IN Attending Dr: Jorge Clifton MD Copies to: ~ Date of Service: 11/21/2024 Subjective Subjective Narrative: Mr. Arce is a 84 year old male with past medical history of chronic A-fib s/p left atrial appendage ligation in May 2022, on Plavix for CAD s/p CABGx 3 vessels, mitral regurg s/p repair, permanent afib with sick sinus syndrome s/p pacemaker placement, parathyroid gland neoplasm s/p treatment in remission, BPH with LUTS, GERD who presents with multifactorial functional decline in the setting of left femoral neck fracture s/p femoral neck repair. He recently had a prolonged hospitalization. He presented [facility] about 3 weeks ago after his witnessed an episode where he went blank and froze . She witnessed the event and lowered him to the floor per her report. He was intubated on the ambulance ride to [facility]. He was extubated after 48 hours. She tells me he was worked up for stroke or seizure, and was transferred to [facility] after having a bad reaction to Geodon prompting reintubation. He was again subsequently extubated at after 2-3 days. She says the doctors at told her they did not have any answer as to the initial episode prompting his presentation to [facility]. She tells me that he has had 4 or 5 of these episodes over the past 20 years. He was unable to have an MRI due to incompatible pacemaker. He was discharged from [facility] to detention facility where hehad persistent hip pain. reports no trauma, but notes he has been having nagging hip pain since July. She reports urging the detention facility to do an x- ray which demonstrated right femoral neck fracture. He is now s/p femoral neck repair. He is also s/p PEG placement due to dysphagia Interval history: Patient was seen in the room while sitting up in a wheelchair, is at the bedside. Patient reports no major complaints or concerns this morning. Denies any SOB or cough. He remains on 2 L of supplemental oxygen, although SpO2 saturations have been in the high 90s. We can start gradually weaning him off of O2. Sports Denies any pain in the hip at rest. Continues to tolerate therapy without issues. No acute neurological complaints. No reports of abdominal pain or discomfort. Moving bowels and bladder without issues. Showing progress in therapy. Ambulatory functional distances with a walker and contact-guard assist. CGA/SBA with transfers. Remains motivated and wants to go home soon. Review of Systems Review of Systems All other systems reviewed & are negative unless noted below or in HPI Exam Physical Exam Vital Signs: Temp Pulse Resp BP Pulse Ox O2 Del Method O2 Flow Rate 97.3 F L 69 18 113/77 96 Nasal Cannula 2 11/21/24 03:43 11/21/24 03:43 11/21/24 03:43 11/21/24 03:43 11/21/24 03:43 11/21/24 08:00 11/21/24 08:00 Objective Labs 11/19/24 04:28 11/19/24 04:28 Labs: Laboratory Results - last 24 hr 11/18/24 11/20/24 11/21/24 16:32 23:56 05:56 POC Glucose 119 113 115 POC Glucose Comment Glu2: cleaned meter Glu2: cleaned meter 11/21/24 12:09 POC Glucose 100 POC Glucose Comment Glu2: cleaned meter Additional Results Results Comments: I reviewed clinical lab tests, radiology reports and obtained and summated medical records and have ordered follow up lab tests and imaging studies as needed for rehabilitation care. Medications and Allergies Allergies and Active Meds: Allergies gabapentin Allergy (Unknown, Verified 11/10/24 19:15) Unknown Reaction penicillin V Allergy (Unknown, Verified 11/10/24 19:15) Unknown Reaction Penicillins Allergy (Unknown, Verified 11/10/24 19:15) Unknown Reaction haloperidol (From Haldol) Allergy (Verified 11/10/24 19:15) HYPOXIA lorazepam (From Ativan) Allergy (Verified 11/10/24 19:15) HYPOXIA ziprasidone (From Geodon) Allergy (Verified 11/10/24 19:15) HYPOXIC Active Medications Generic Name Dose Route Start Last Admin Trade Name Freq PRN Reason Stop Dose Admin Acetaminophen 975 mg 11/19/24 15:00 11/21/24 09:00 Acetaminophen 650 Mg/20.3 Ml Oral.Susp PEG 11/19/25 14:59 975 mg TID JIM Administration Al Hydrox/Mg Hydrox/Simethicone 30 ml 11/18/24 20:47 Mag Hydrox/Al Hydrox/Simeth 30 Ml Udc PEG 11/18/25 13:58 Q4H PRN Indigestion Atorvastatin Calcium 20 mg 11/18/24 21:00 11/20/24 19:46 Atorvastatin 20 Mg Tablet PEG 11/18/25 20:59 20 mg QPM JIM Administration Bisacodyl 10 mg 11/18/24 13:59 Bisacodyl 10 Mg Supp.Rect MT 11/18/25 13:58 DAILY PRN Constipation Clopidogrel Bisulfate 75 mg 11/19/24 09:00 11/21/24 08:59 Clopidogrel Bisulfate 75 Mg Tablet PEG 11/19/25 08:59 75 mg DAILY JIM Administration Docusate Sodium 283 mg 11/18/24 13:59 Docusate Enema 283 Mg/5 Ml Enema MT 11/18/25 13:58 DAILY PRN Constipation Docusate Sodium 100 mg 11/18/24 22:48 Docusate Liquid 100 Mg/10 Ml Udc PEG 11/18/25 20:59 BID PRN constipation Doxycycline Hyclate 100 mg 11/21/24 21:00 Doxycycline Hyclate 100 Mg Tablet PO 11/23/24 20:59 BID JIM Enoxaparin Sodium 40 mg 11/20/24 10:00 11/21/24 09:37 Enoxaparin 40 Mg/0.4 Ml Syringe SUBCUT 11/20/25 09:59 40 mg DAILY@1000 JIM Administration Finasteride 5 mg 11/19/24 09:00 11/21/24 09:00 Finasteride 5 Mg Tablet PEG 11/19/25 08:59 5 mg DAILY JIM Administration Guaifenesin 10 ml 11/18/24 13:57 11/20/24 19:46 Guaifenesin Syrup 10 Ml Udc PEG 11/18/25 13:56 10 ml Q4HR PRN Administration congestion Lactulose 30 gm 11/18/24 20:47 Lactulose 20 Gm/30 Ml Udc PEG 11/18/25 13:58 DAILY PRN Constipation Latanoprost 1 drops 11/18/24 22:00 11/20/24 19:47 Latanoprost 0.005% Op Soln 50 Drops/2.5 Ml Bottle EYE-BOTH 11/18/25 21:59 1drops QHS JIM Administration Lidocaine 1 patch 11/18/24 13:57 Lidocaine 4% Adh..Patch TOPICAL 11/18/25 13:56 Q12HR PRN pain Melatonin 10 mg 11/21/24 22:00 Melatonin 5 Mg Tablet PEG 11/21/25 21:59 QHS JIM Metoprolol Tartrate 50 mg 11/18/24 21:00 11/21/24 09:00 Metoprolol Tartrate 50 Mg Tablet PEG 11/18/25 20:59 50 mg BID JIM Administration Polyethylene Glycol 17 gm 11/19/24 09:00 11/21/24 09:01 Polyethylene Glycol 3350 17 Gm Powd.Pack PEG 11/19/25 08:59 Not Given DAILY JIM Sennosides 17.2 mg 11/19/24 12:00 Sennosides 8.6 Mg Tablet PEG 11/19/25 11:59 DAILY@12 PRN If no BM in 2 days Sennosides 8.8 mg 11/18/24 22:00 11/20/24 19:47 Sennosides Syrup 8.8 Mg/5 Ml Udc PEG 11/18/25 21:59 Not Given QHS JIM Sodium Chloride 0 ml 11/18/24 13:59 Sodium Chloride 0.9 % 10 Ml Syringe IV-PUSH 11/18/25 13:58 PRN PRN Flush Sodium Chloride 10 ml 11/19/24 06:00 11/21/24 05:44 Sodium Chloride 0.9 % 10 Ml Syringe IV-PUSH 11/19/25 05:59 10 ml Q8H JIM Administration Assessment/Plan Assessment/Plan (1) Closed displaced fracture of left femoral neck: (2) Dysphagia: Qualifiers: Dysphagia type: unspecified Qualified Code(s): R13.10 - Dysphagia, unspecified (3) Permanent atrial fibrillation: (4) Sick sinus syndrome: (5) S/P CABG x 3: (6) Mild left ventricular systolic dysfunction: (7) Status post placement of cardiac pacemaker: (8) Severe protein-calorie malnutrition: (9) Impaired mobility and activities of daily living: Plan This is a 84-year-old male who presents to [facility] to multifactorial functional decline in the setting of left femoral neck fracture s/p repair. He has continued impaired mobility and impaired independence with ADLs and IADLs requiring PT/OT/RELATIONSHIP ASSOCIATE 5-7 days/week 3 hours/day to maximize safety and independence with functional ability and self-care. -PT to improve patient's strength, endurance, bed mobility, transfers (sit- stand), standing balance, gait quality on level surfaces and stairs, coordination and functional ADL skills. We will also work to improve patient's safety awareness during transfers and ambulation. -OT for basic ADL retraining (bathing, dressing, toileting, continence, grooming, feeding, transferring), to increase activity tolerance and functional mobility to evaluate for adaptive assistive device. We will work to improve patient's endurance and educate patient on fall prevention and energy conservation techniques-pacing strategies and proper breathing techniques duringfunctional tasks. -Patient education -Pressure ulcer prophylaxis; encourage mobilization, frequent postural changes, pressure-relief techniques -DVT prophylaxis -Encourage deep breathing exercise incentive spirometry. -Monitor bladder. Toileting schedule. Continue current bladder management, with scans as needed and CIC if needed. Start bowel care program every day to obtain continence, prevent ileus. -Maintain fall precautions -Gait and balance retraining -Provision of the necessary gait aids and functional adaptive equipment to enhance the patient's a functional voodoo -Encourage deep breathing exercises and incentive spirometry -RD evaluation -Ensure adequate nutrition and hydration -Discharge planning. #. UPDATES -Stable from clinical standpoint. No acute concerns or complaints. -Continues to work with therapy, showing appropriate progress so far. -Continue Lipitor, Plavix for history of CAD -Not on chronic anticoagulation for afib. H/o left atrial appendage ligation -Continue PT/OT/ST as ordered -Hospitalist to assist with management of comorbid medical conditions #. Pain control: Tylenol scheduled #. Bowel and bladder: Continent of Bowel/bladder #. Skin: (pressure ulcer/surgical site) Pressure ulcer prophylaxis; encourage mobilization, frequent postural changes, pressure-relief techniques #. Sleep: Optimize sleep/wake cycle DVT prophylaxis: Lovenox 40 mg daily Functional status: Impaired. Limited by pain, weakness Discharge planning: ELOS 1-2 weeks Advance care planning discussed with patient. Patient would like to be made DNR- CCA without intubation. Order placed. I spent 21 minutes for services, including [id number] encounter with the patient, discussion of the case, plan of care, and exam; and [id number] activities, such as reviewing pertinent product consultant documentation, recent therapynotes, laboratory and radiology studies, and discussion of case with care team including physician, nursing, case planner, and therapists. More than 50 % of time was spent on patient/family counseling or coordination ofcare. <Statement entered by Jorge Clifton MD - 11/21/24 13:50> I reviewed the history and the relevant portions of the chart, including currentorders, allied health and product consultant notes, labs/imaging and plan of care as above. Documented By: Jen Acevedo APRN 11/21/24 1 251 Signed By: <Electronically signed by GILL Acevedo> 11/21/24 1256 <Electronically signed by Jorge Clifton MD> 11/21/24 1357 [facility] Work Phone: [phone]) 110-943802-26-2025 [place] [address] Physiatry(Rehab) Progress Note Signed Patient: Bravo Arce MR#: [id number] : 1940 Acct:[id number] Age/Sex: 84 / M Adm Date: 5 Loc: Room: 5G6509-1 Type: ADM IN Attending Dr: Jorge Clifton MD Copies to: ~ Date of Service: 11/21/2024 Subjective Subjective Narrative: Mr. Arce is a 84 year old male with past medical history of chronic A-fib s/p left atrial appendage ligation in May 2022, on Plavix for CAD s/p CABGx 3 vessels, mitral regurg s/p repair, permanent afib with sick sinus syndrome s/p pacemaker placement, parathyroid gland neoplasm s/p treatment in remission, BPH with LUTS, GERD who presents with multifactorial functional decline in the setting of left femoral neck fracture s/p femoral neck repair. He recently had a prolonged hospitalization. He presented to [facility] about 3 weeks ago after his witnessed an episode where he went blank and froze . She witnessed the event and lowered him to the floor per her report. He was intubated on the ambulance ride to [facility]. He was extubated after 48 hours. She tells me he was worked up for stroke or seizure, and was transferred to [facility] at family request after having a bad reaction to Geodon prompting reintubation. He was again subsequently extubated at after 2-3 days. She says the doctors at told her they did not have any answer as to the initial episode prompting his presentation [facility]. She tells me that he has had 4 or 5 of these episodes over the past 20 years. He was unable to have an MRI due to incompatible pacemaker. He was discharged from [facility] to detention facility where hehad persistent hip pain. reports no trauma, but notes he has been having nagging hip pain since July. She reports urging the detention facility to do an x-ray which demonstrated right femoral neck fracture. He is now s/p femoral neck repair. He is also s/p PEG placement due to dysphagia Interval history: Patient was seen in the room while sitting up in a wheelchair, is at the bedside. Patient reports no major complaints or concerns this morning. Denies any SOB or cough. He remains on 2 L of supplemental oxygen, although SpO2 saturations have been in the high 90s. We can start gradually weaninghim off of O2. Sports Denies any pain in the hip at rest. Continues to tolerate therapy without issues. No acute neurological complaints. No reports of abdominal pain or discomfort. Moving bowels and bladder without issues. Showing progress in therapy. Ambulatory functional distances with a walker and contact-guard assist. CGA/SBA with transfers. Remains motivated and wants to go home soon. Review of Systems Review of Systems All other systems reviewed & are negative unless noted below or in HPI Exam Physical Exam Vital Signs: Temp Pulse Resp BP Pulse Ox O2 Del Method O2 Flow Rate 97.3 F L 69 18 113/77 96 Nasal Cannula 2 11/21/24 03:43 11/21/24 03:43 11/21/24 03:43 11/21/24 03:43 11/21/24 03:43 11/21/24 08:00 11/21/24 08:00 Objective Labs 11/19/24 04:28 11/19/24 04:28 Labs: Laboratory Results - last 24 hr 11/18/24 11/20/24 11/21/24 16:32 23:56 05:56 POC Glucose 119 113 115 POC Glucose Comment Glu2: cleaned meter Glu2: cleaned meter 11/21/24 12:09 POC Glucose 100 POC Glucose Comment Glu2: cleaned meter Additional Results Results Comments: I reviewed clinical lab tests, radiology reports and obtained and summated medical records and haveordered follow up lab tests and imaging studies as needed for rehabilitation care. Medications and Allergies Allergies and Active Meds: Allergies gabapentin Allergy (Unknown, Verified 11/10/24 19:15) Unknown Reaction penicillin V Allergy (Unknown, Verified 11/10/24 19:15) Unknown Reaction Penicillins Allergy (Unknown, Verified 11/10/24 19:15) Unknown Reaction haloperidol (From Haldol) Allergy (Verified 11/10/24 19:15) HYPOXIA lorazepam (From Ativan) Allergy (Verified 11/10/24 19:15) HYPOXIA ziprasidone (From Geodon) Allergy (Verified 11/10/24 19:15) HYPOXIC Active Medications Generic Name Dose Route Start Last Admin Trade Name Freq PRN Reason Stop Dose Admin Acetaminophen 975 mg 11/19/24 15:00 11/21/24 09:00 Acetaminophen 650 Mg/20.3 Ml Oral.Susp PEG 11/19/25 14:59 975 mg TID JIM Administration Al Hydrox/Mg Hydrox/Simethicone 30 ml 11/18/24 20:47 Mag Hydrox/Al Hydrox/Simeth 30 Ml Udc PEG 11/18/25 13:58 Q4H PRN Indigestion Atorvastatin Calcium 20 mg 11/18/24 21:00 11/20/24 19:46 Atorvastatin 20 Mg Tablet PEG 11/18/25 20:59 20 mg QPM JIM Administration Bisacodyl 10 mg 11/18/24 13:59 Bisacodyl 10 Mg Supp.Rect MT 11/18/25 13:58 DAILY PRN Constipation Clopidogrel Bisulfate 75 mg 11/19/24 09:00 11/21/24 08:59 Clopidogrel Bisulfate 75 Mg Tablet PEG 11/19/25 08:59 75 mg DAILY JIM Administration Docusate Sodium 283 mg 11/18/24 13:59 Docusate Enema 283 Mg/5 Ml Enema MT 11/18/25 13:58 DAILY PRN Constipation Docusate Sodium 100 mg 11/18/24 22:48 Docusate Liquid 100 Mg/10 Ml Udc PEG 11/18/25 20:59 BID PRN constipation Doxycycline Hyclate 100 mg 11/21/24 21:00 Doxycycline Hyclate 100 Mg Tablet PO 11/23/24 20:59 BID JIM Enoxaparin Sodium 40 mg 11/20/24 10:00 11/21/24 09:37 Enoxaparin 40 Mg/0.4 Ml Syringe SUBCUT 11/20/25 09:59 40 mg DAILY@1000 JIM Administration Finasteride 5 mg 11/19/24 09:00 11/21/24 09:00 Finasteride 5 Mg Tablet PEG 11/19/25 08:59 5 mg DAILY JIM Administration Guaifenesin 10 ml 11/18/24 13:57 11/20/24 19:46 Guaifenesin Syrup 10 Ml Udc PEG 11/18/25 13:56 10 ml Q4HR PRN Administration congestion Lactulose 30 gm 11/18/24 20:47 Lactulose 20 Gm/30 Ml Udc PEG 11/18/25 13:58 DAILY PRN Constipation Latanoprost 1 drops 11/18/24 22:00 11/20/24 19:47 Latanoprost 0.005% Op Soln 50 Drops/2.5 Ml Bottle EYE-BOTH 11/18/25 21:59 1drops QHS JIM Administration Lidocaine 1 patch 11/18/24 13:57 Lidocaine 4% Adh..Patch TOPICAL 11/18/25 13:56 Q12HR PRN pain Melatonin 10 mg 11/21/24 22:00 Melatonin 5 Mg Tablet PEG 11/21/25 21:59 QHS [facility] Metoprolol Tartrate 50 mg 11/18/24 21:00 11/21/24 09:00 Metoprolol Tartrate 50 Mg Tablet PEG 11/18/25 20:59 50 mg BID JIM Administration Polyethylene Glycol 17 gm 11/19/24 09:00 11/21/24 09:01 Polyethylene Glycol 3350 17 Gm Powd.Pack PEG 11/19/25 08:59 Not Given DAILY JIM Sennosides 17.2 mg 11/19/24 12:00 Sennosides 8.6 Mg Tablet PEG 11/19/25 11:59 DAILY@12 PRN If no BM in 2 days Sennosides 8.8 mg 11/18/24 22:00 11/20/24 19:47 Sennosides Syrup 8.8 Mg/5 Ml Udc PEG 11/18/25 21:59 Not Given QHS JIM Sodium Chloride 0 ml 11/18/24 13:59 Sodium Chloride 0.9 % 10 Ml Syringe IV-PUSH 11/18/25 13:58 PRN PRN Flush Sodium Chloride 10 ml 11/19/24 06:00 11/21/24 05:44 Sodium Chloride 0.9 % 10 Ml Syringe IV-PUSH 11/19/25 05:59 10 ml Q8H JIM Administration Assessment/Plan Assessment/Plan (1) Closed displaced fracture of left femoral neck: (2) Dysphagia: Qualifiers: Dysphagia type: unspecified Qualified Code(s): R13.10 - Dysphagia, unspecified (3) Permanent atrial fibrillation: (4) Sick sinus syndrome: (5) S/P CABG x 3: (6) Mild left ventricular systolic dysfunction: (7) Status post placement of cardiac pacemaker: (8) Severe protein-calorie malnutrition: (9) Impaired mobility and activities of daily living: Plan This is a 84-year-old male who [facility] multifactorial functional decline in the setting of left femoral neck fracture s/p repair. He has continued impaired mobility and impaired independence with ADLs and IADLs requiring PT/OT/RELATIONSHIP ASSOCIATE 5-7 days/week 3 hours/day to maximize safety and independence with functional ability and self-care. -PT to improve patient's strength, endurance, bed mobility, transfers (sit- stand), standing balance, gait quality on level surfaces and stairs, coordination and functional ADL skills. We will also work to improve patient's safety awareness during transfers and ambulation. -OT for basic ADL retraining (bathing, dressing, toileting, continence, grooming, feeding, transferring), to increase activity tolerance and functional mobility to evaluate for adaptive assistive device. We will work to improve patient's endurance and educate patient on fall prevention and energy co nservation techniques-pacing strategies and proper breathing techniques duringfunctional tasks. -Patient education -Pressure ulcer prophylaxis; encourage mobilization, frequent postural changes, pressure-relief techniques -DVT prophylaxis -Encourage deep breathing exercise incentive spirometry. -Monitor bladder. Toileting schedule. Continue current bladder management, with scans as needed andCIC if needed. Start bowel care program every day to obtain continence, prevent ileus. -Maintain fall precautions -Gait and balance retraining -Provision of the necessary gait aids and functional adaptive equipment to enhance the patient's a functional voodoo -Encourage deep breathing exercises and incentive spirometry -RD evaluation -Ensure adequate nutrition and hydration -Discharge planning. #. UPDATES -Stable from clinical standpoint. No acute concerns or complaints. -Continues to work with therapy, showing appropriate progress so far. -Continue Lipitor, Plavix for history of CAD -Not on chronic anticoagulation for afib. H/o left atrial appendage ligation -Continue PT/OT/ST as ordered -Hospitalist to assist with management of comorbid medical conditions #. Pain control: Tylenol scheduled #. Bowel and bladder: Continent of Bowel/bladder #. Skin: (pressure ulcer/surgical site) Pressure ulcer prophylaxis; encourage mobilization, frequent postural changes, pressure-relief techniques #. Sleep: Optimize sleep/wake cycle DVT prophylaxis: Lovenox 40 mg daily Functional status: Impaired. Limited by pain, weakness Discharge planning: ELOS 1-2 weeks Advance care planning discussed with patient. Patient would like to be made DNR- CCA without intubation. Order placed. I spent 21 minutes for services, including [id number] encounter with the patient, discussion of the case, plan of care, and exam; and [id number] activities, such as reviewing pertinent product consultant documentation, recent therapynotes, laboratory and radiology studies, and discussion of case with care team including physician, nursing, case planner, and therapists. More than 50 % of time was spent on patient/family counseling or coordination ofcare. I reviewed the history and the relevant portions of the chart, including currentorders, allied health and product consultant notes, labs/imaging and plan of care as above. Documented By: Jen Acevedo APRN 11/21/24 1 251 Signed By: 11/21/24 1256 11/21/24 1350 [facility]02-25-2025 Progress note Author Jorge Clifton [facility] Note Date/Time November 20, 2024 12:07pm [facility] [address] [place] [address] Physiatry(Rehab) Progress Note Signed Patient: Bravo Arce MR#: [id number] : 1940 Acct:[id number] Age/Sex: 84 / M Adm Date: 5 Loc: 5T Room: 9G9797-0 Type: ADM IN Attending Dr: Jorge Clifton MD Copies to: ~ Date of Service: 11/20/2024 Subjective Subjective Narrative: Mr. Arce is a 84 year old male with past medical history of chronic A-fib s/p left atrial appendage ligation in May 2022, on Plavix for CAD s/p CABGx 3 vessels, mitral regurg s/p repair, permanent afib with sick sinus syndrome s/p pacemaker placement, parathyroid gland neoplasm s/p treatment in remission, BPH with LUTS, GERD who presents with multifactorial functional decline in the setting of left femoral neck fracture s/p femoral neck repair. He recently had a prolonged hospitalization. He presented to [facility] about 3 weeks ago after his witnessed an episode where he went blank and froze . She witnessed the event and lowered him to the floor per her report. He was intubated on the ambulance ride to [facility]. He was extubated after 48 hours. She tells me he was worked up for stroke or seizure, and was transferred to [facility] at family request after having a bad reaction to Geodon prompting reintubation. He was again subsequently extubated at after 2-3 days. She says the doctors at told her they did not have any answer as to the initial episode prompting his presentation to [facility]. She tells me that he has had 4 or 5 of these episodes over the past 20 years. He was unable to have an MRI due to incompatible pacemaker. He was discharged from [facility] to detention facility where hehad persistent hip pain. reports no trauma, but notes he has been having nagging hip pain since July. She reports urging the detention facility to do an x- ray which demonstrated right femoral neck fracture. He is now s/p femoral neck repair. He is also s/p PEG placement due to dysphagia The patient was seen and evaluated today. Sitting up in WC. He appears in no distress. Reports poor sleep overnight. Denies chest pain, SOB, fever, chills. Pain reasonably well controlled. Tolerating therapy thus far. Review of Systems Review of Systems All other systems reviewed & are negative unless noted below or in HPI Exam Physical Exam Vital Signs: Temp Pulse Resp BP Pulse Ox O2 Del Method O2 Flow Rate 97.4 F L 95 18 119/75 97 Nasal Cannula 2 11/20/24 04:36 11/20/24 04:36 11/20/24 04:36 11/20/24 04:36 11/20/24 04:36 11/20/24 09:00 11/20/24 09:00 Narrative: Pleasant NAD Extremities well perfused No respiratory distress PEG tube in place. Abdomen soft, non distended Left lower extremity limited by pain. Otherwise moving all limbs spontaneously Minimal edema Objective Labs 11/19/24 04:28 11/19/24 04:28 Labs: Laboratory Results - last 24 hr 11/19/24 11/19/24 11/20/24 16:24 20:17 05:58 POC Glucose 102 128 134 POC Glucose Comment Glu2: cleaned meter 11/20/24 11:43 POC Glucose 124 POC Glucose Comment Glu2: cleaned meter Medications and Allergies Allergies and Active Meds: Allergies gabapentin Allergy (Unknown, Verified 11/10/24 19:15) Unknown Reaction penicillin V Allergy (Unknown, Verified 11/10/24 19:15) Unknown Reaction Penicillins Allergy (Unknown, Verified 11/10/24 19:15) Unknown Reaction haloperidol (From Haldol) Allergy (Verified 11/10/24 19:15) HYPOXIA lorazepam (From Ativan) Allergy (Verified 11/10/24 19:15) HYPOXIA ziprasidone (From Geodon) Allergy (Verified 11/10/24 19:15) HYPOXIC Active Medications Generic Name Dose Route Start Last Admin Trade Name Freq PRN Reason Stop Dose Admin Acetaminophen 975 mg 11/19/24 15:00 11/20/24 09:53 Acetaminophen 650 Mg/20.3 Ml Oral.Susp PEG 11/19/25 14:59 975 mg TID JIM Administration Al Hydrox/Mg Hydrox/Simethicone 30 ml 11/18/24 20:47 Mag Hydrox/Al Hydrox/Simeth 30 Ml Udc PEG 11/18/25 13:58 Q4H PRN Indigestion Atorvastatin Calcium 20 mg 11/18/24 21:00 11/19/24 20:00 Atorvastatin 20 Mg Tablet PEG 11/18/25 20:59 20 mg QPM JIM Administration Bisacodyl 10 mg 11/18/24 13:59 Bisacodyl 10 Mg Supp.Rect MT 11/18/25 13:58 DAILY PRN Constipation Clopidogrel Bisulfate 75 mg 11/19/24 09:00 11/20/24 09:54 Clopidogrel Bisulfate 75 Mg Tablet PEG 11/19/25 08:59 75 mg DAILY JIM Administration Docusate Sodium 283 mg 11/18/24 13:59 Docusate Enema 283 Mg/5 Ml Enema MT 11/18/25 13:58 DAILY PRN Constipation Docusate Sodium 100 mg 11/18/24 22:48 Docusate Liquid 100 Mg/10 Ml Udc PEG 11/18/25 20:59 BID PRN constipation Enoxaparin Sodium 40 mg 11/20/24 10:00 11/20/24 09:54 Enoxaparin 40 Mg/0.4 Ml Syringe SUBCUT 11/20/25 09:59 40 mg DAILY@1000 JIM Administration Finasteride 5 mg 11/19/24 09:00 11/20/24 09:57 Finasteride 5 Mg Tablet PEG 11/19/25 08:59 5 mg DAILY JIM Administration Guaifenesin 10 ml 11/18/24 13:57 11/19/24 19:58 Guaifenesin Syrup 10 Ml Udc PEG 11/18/25 13:56 10 ml Q4HR PRN Administration congestion Doxycycline Hyclate 100 mg in 100 mls @ 100 mls/hr 11/18/24 20:00 11/20/24 12:54 Doxy 100 IV 100 mls/hr Q12H JIM Administration Lactulose 30 gm 11/18/24 20:47 Lactulose 20 Gm/30 Ml Udc PEG 11/18/25 13:58 DAILY PRN Constipation Latanoprost 1 drops 11/18/24 22:00 11/19/24 20:01 Latanoprost 0.005% Op Soln 50 Drops/2.5 Ml Bottle EYE-BOTH 11/18/25 21:59 1drops QHS JIM Administration Lidocaine 1 patch 11/18/24 13:57 Lidocaine 4% Adh..Patch TOPICAL 11/18/25 13:56 Q12HR PRN pain Melatonin 5 mg 11/18/24 22:00 11/19/24 20:00 Melatonin 5 Mg Tablet PEG 11/18/25 21:59 5 mg QHS JIM Administration Metoprolol Tartrate 50 mg 11/18/24 21:00 11/20/24 09:54 Metoprolol Tartrate 50 Mg Tablet PEG 11/18/25 20:59 50 mg BID [facility] Administration Polyethylene Glycol 17 gm 11/19/24 09:00 11/20/24 09:54 Polyethylene Glycol 3350 17 Gm Powd.Pack PEG 11/19/25 08:59 Not Given DAILY [facility] Sennosides 17.2 mg 11/19/24 12:00 Sennosides 8.6 Mg Tablet PEG 11/19/25 11:59 DAILY@12 PRN If no BM in 2 days Sennosides 8.8 mg 11/18/24 22:00 11/19/24 20:02 Sennosides Syrup 8.8 Mg/5 Ml Udc PEG 11/18/25 21:59 Not Given QHS JIM Sodium Chloride 0 ml 11/18/24 13:59 Sodium Chloride 0.9 % 10 Ml Syringe IV-PUSH 11/18/25 13:58 PRN PRN Flush Sodium Chloride 10 ml 11/19/24 06:00 11/20/24 06:20 Sodium Chloride 0.9 % 10 Ml Syringe IV-PUSH 11/19/25 05:59 10 ml Q8H JIM Administration Assessment/Plan Assessment/Plan (1) Closed displaced fracture of left femoral neck: (2) Dysphagia: Qualifiers: Dysphagia type: unspecified Qualified Code(s): R13.10 - Dysphagia, unspecified (3) Permanent atrial fibrillation: (4) Sick sinus syndrome: (5) S/P CABG x 3: (6) Mild left ventricular systolic dysfunction: (7) Status post placement of cardiac pacemaker: (8) Severe protein-calorie malnutrition: (9) Impaired mobility and activities of daily living: Plan This is a 84-year-old male who presents to [facility] to multifactorial functional decline in the setting of left femoral neck fracture s/p repair. He has continued impaired mobility and impaired independence with ADLs and IADLs requiring PT/OT/RELATIONSHIP ASSOCIATE 5-7 days/week 3 hours/day to maximize safety and independence with functional ability and self-care. -PT to improve patient's strength, endurance, bed mobility, transfers (sit- stand), standing balance, gait quality on level surfaces and stairs, coordination and functional ADL skills. We will also work to improve patient's safety awareness during transfers and ambulation. -OT for basic ADL retraining (bathing, dressing, toileting, continence, grooming, feeding, transferring), to increase activity tolerance and functional mobility to evaluate for adaptive assistive device. We will work to improve patient's endurance and educate patient on fall prevention and energy conservation techniques-pacing strategies and proper breathing techniques duringfunctional tasks. -Patient education -Pressure ulcer prophylaxis; encourage mobilization, frequent postural changes, pressure-relief techniques -DVT prophylaxis -Encourage deep breathing exercise incentive spirometry. -Monitor bladder. Toileting schedule. Continue current bladder management, with scans as needed and CIC if needed. Start bowel care program every day to obtain continence, prevent ileus. -Maintain fall precautions -Gait and balance retraining -Provision of the necessary gait aids and functional adaptive equipment to enhance the patient's a functional voodoo -Encourage deep breathing exercises and incentive spirometry -RD evaluation -Ensure adequate nutrition and hydration -Discharge planning. #. UPDATES -Will add Melatonin for sleep -Will need clarification from Orthopedic surgery regarding duration of Doxycycline -Continue Tube feeds. ST to follow for dysphagia. Maintain NPO for now -Tylenol for pain management. Discussed with spouse. Avoid opioid pain medications as the patient has had adverse reactions in the past (ie over sedation). -Continue Lipitor, Plavix for history of CAD -Not on chronic anticoagulation for afib. H/o left atrial appendage ligation -Continue PT/OT/ST as ordered -Hospitalist to assist with management of comorbid medical conditions #. Pain control: Tylenol scheduled #. Bowel and bladder: Continent of Bowel/bladder #. Skin: (pressure ulcer/surgical site) Pressure ulcer prophylaxis; encourage mobilization, frequent postural changes, pressure-relief techniques #. Sleep: Optimize sleep/wake cycle DVT prophylaxis: Lovenox 40 mg daily Functional status: Impaired. Limited by pain, weakness Discharge planning: ELOS 1-2 weeks Advance care planning discussed with patient. Patient would like to be made DNR- CCA without intubation. Order placed. Patient was personally seen by me, Dr. Clifton, on the day of encounter, reviewed the history and the relevant portions of the chart, including current orders, allied health and product consultant notes, labs/imaging and performed bales elements of exam and I formulated the plan of care and facilitated the medical decision making. I completed a substantive portion of this encounter, the medical decision makingportion of this note in its entirety, including Allied health note review, nursing note review, product consultant note review, discussion with nursing and case management, and more than 50% of my time was spent on counseling and coordination of care, time spent 25 minutes Documented By: Jorge Clifton MD 1300 Signed By: <Electronically signed by Jorge Clifton MD> 11/20/24 1308 [facility] Work Phone: [phone]) 954-686602-25-2025 [place] [address] Physiatry(Rehab) Progress Note Signed Patient: Bravo Arce MR#: [id number] : 1940 Acct:[id number] Age/Sex: 84 / M Adm Date: 5 Loc: Room: [address] [place] [address] Type: ADM IN Attending Dr: Jorge Clifton MD Copies to: ~ Date of Service: 11/20/2024 Subjective Subjective Narrative: Mr. Arce is a 84 year old male with past medical history of chronic A-fib s/p left atrial appendage ligation in May 2022, on Plavix for CAD s/p CABGx 3 vessels, mitral regurg s/p repair, permanent afib with sick sinus syndrome s/p pacemaker placement, parathyroid gland neoplasm s/p treatment in remission, BPH with LUTS, GERD who presents with multifactorial functional decline in the setting of left femoral neck fracture s/p femoral neck repair. He recently had a prolonged hospitalization. He presented to [facility] about 3 weeks ago after his witnessed an episode where he went blank and froze . She witnessed the event and lowered him to the floor per her report. He was intubated on the ambulance ride to [facility]. He was extubated after 48 hours. She tells me he was worked up for stroke or seizure, and was transferred to [facility] at family request after having a bad reaction to Geodon prompting reintubation. He was again subsequently extubated at after 2-3 days. She says the doctors at told her they did not have any answer as to the initial episode prompting his presentation to [facility]. She tells me that he has had 4 or 5 of these episodes over the past 20 years. He was unable to have an MRI due to incompatible pacemaker. He was discharged from [facility] to detention facility where hehad persistent hip pain. reports no trauma, but notes he has been having nagging hip pain since July. She reports urging the detention facility to do an x-ray which demonstrated right femoral neck fracture. He is now s/p femoral neck repair. He is also s/p PEG placement due to dysphagia The patient was seen and evaluated today. Sitting up in WC. He appears in no distress. Reports poorsleep overnight. Denies chest pain, SOB, fever, chills. Pain reasonably well controlled. Toleratingtherapy thus far. Review of Systems Review of Systems All other systems reviewed & are negative unless noted below or in HPI Exam Physical Exam Vital Signs: Temp Pulse Resp BP Pulse Ox O2 Del Method O2 Flow Rate 97.4 F L 95 18 119/75 97 Nasal Cannula 2 11/20/24 04:36 11/20/24 04:36 11/20/24 04:36 11/20/24 04:36 11/20/24 04:36 11/20/24 09:00 11/20/24 09:00 Narrative: Pleasant NAD Extremities well perfused No respiratory distress PEG tube in place. Abdomen soft, non distended Left lower extremity limited by pain. Otherwise moving all limbs spontaneously Minimal edema Objective Labs 11/19/24 04:28 11/19/24 04:28 Labs: Laboratory Results - last 24 hr 11/19/24 11/19/24 11/20/24 16:24 20:17 05:58 POC Glucose 102 128 134 POC Glucose Comment Glu2: cleaned meter 11/20/24 11:43 POC Glucose 124 POC Glucose Comment Glu2: cleaned meter Medications and Allergies Allergies and Active Meds: Allergies gabapentin Allergy (Unknown, Verified 11/10/24 19:15) Unknown Reaction penicillin V Allergy (Unknown, Verified 11/10/24 19:15) Unknown Reaction Penicillins Allergy (Unknown, Verified 11/10/24 19:15) Unknown Reaction haloperidol (From Haldol) Allergy (Verified 11/10/24 19:15) HYPOXIA lorazepam (From Ativan) Allergy (Verified 11/10/24 19:15) HYPOXIA ziprasidone (From Geodon) Allergy (Verified 11/10/24 19:15) HYPOXIC Active Medications Generic Name Dose Route Start Last Admin Trade Name Freq PRN Reason Stop Dose Admin Acetaminophen 975 mg 11/19/24 15:00 11/20/24 09:53 Acetaminophen 650 Mg/20.3 Ml Oral.Susp PEG 11/19/25 14:59 975 mg TID JIM Administration Al Hydrox/Mg Hydrox/Simethicone 30 ml 11/18/24 20:47 Mag Hydrox/Al Hydrox/Simeth 30 Ml Udc PEG 11/18/25 13:58 Q4H PRN Indigestion Atorvastatin Calcium 20 mg 11/18/24 21:00 11/19/24 20:00 Atorvastatin 20 Mg Tablet PEG 11/18/25 20:59 20 mg QPM JIM Administration Bisacodyl 10 mg 11/18/24 13:59 Bisacodyl 10 Mg Supp.Rect MT 11/18/25 13:58 DAILY PRN Constipation Clopidogrel Bisulfate 75 mg 11/19/24 09:00 11/20/24 09:54 Clopidogrel Bisulfate 75 Mg Tablet PEG 11/19/25 08:59 75 mg DAILY JIM Administration Docusate Sodium 283 mg 11/18/24 13:59 Docusate Enema 283 Mg/5 Ml Enema MT 11/18/25 13:58 DAILY PRN Constipation Docusate Sodium 100 mg 11/18/24 22:48 Docusate Liquid 100 Mg/10 Ml Udc PEG 11/18/25 20:59 BID PRN constipation Enoxaparin Sodium 40 mg 11/20/24 10:00 11/20/24 09:54 Enoxaparin 40 Mg/0.4 Ml Syringe SUBCUT 11/20/25 09:59 40 mg DAILY@1000 JIM Administration Finasteride 5 mg 11/19/24 09:00 11/20/24 09:57 Finasteride 5 Mg Tablet PEG 11/19/25 08:59 5 mg DAILY JIM Administration Guaifenesin 10 ml 11/18/24 13:57 11/19/24 19:58 Guaifenesin Syrup 10 Ml Udc PEG 11/18/25 13:56 10 ml Q4HR PRN Administration congestion Doxycycline Hyclate 100 mg in 100 mls @ 100 mls/hr 11/18/24 20:00 11/20/24 12:54 Doxy 100 IV 100 mls/hr Q12H JIM Administration Lactulose 30 gm 11/18/24 20:47 Lactulose 20 Gm/30 Ml Udc PEG 11/18/25 13:58 DAILY PRN Constipation Latanoprost 1 drops 11/18/24 22:00 11/19/24 20:01 Latanoprost 0.005% Op Soln 50 Drops/2.5 Ml Bottle EYE-BOTH 11/18/25 21:59 1drops QHS JIM Administration Lidocaine 1 patch 11/18/24 13:57 Lidocaine 4% Adh..Patch TOPICAL 11/18/25 13:56 Q12HR PRN pain Melatonin 5 mg 11/18/24 22:00 11/19/24 20:00 Melatonin 5 Mg Tablet PEG 11/18/25 21:59 5 mg QHS JIM Administration Metoprolol Tartrate 50 mg 11/18/24 21:00 11/20/24 09:54 Metoprolol Tartrate 50 Mg Tablet PEG 11/18/25 20:59 50 mg BID JIM Administration Polyethylene Glycol 17 gm 11/19/24 09:00 11/20/24 09:54 Polyethylene Glycol 3350 17 Gm Powd.Pack PEG 11/19/25 08:59 Not Given DAILY JIM Sennosides 17.2 mg 11/19/24 12:00 Sennosides 8.6 Mg Tablet PEG 11/19/25 11:59 DAILY@12 PRN If no BM in 2 days Sennosides 8.8 mg 11/18/24 22:00 11/19/24 20:02 Sennosides Syrup 8.8 Mg/5 Ml Udc PEG 11/18/25 21:59 Not Given QHS JIM Sodium Chloride 0 ml 11/18/24 13:59 Sodium Chloride 0.9 % 10 Ml Syringe IV-PUSH 11/18/25 13:58 PRN PRN Flush Sodium Chloride 10 ml 11/19/24 06:00 11/20/24 06:20 Sodium Chloride 0.9 % 10 Ml Syringe IV-PUSH 11/19/25 05:59 10 ml Q8H JIM Administration Assessment/Plan Assessment/Plan (1) Closed displaced fracture of left femoral neck: (2) Dysphagia: Qualifiers: Dysphagia type: unspecified Qualified Code(s): R13.10 - Dysphagia, unspecified (3) Permanent atrial fibrillation: (4) Sick sinus syndrome: (5) S/P CABG x 3: (6) Mild left ventricular systolic dysfunction: (7) Status post placement of cardiac pacemaker: (8) Severe protein-calorie malnutrition: (9) Impaired mobility and activities of daily living: Plan This is a 84-year-old male who [facility] IRFdue to multifactorial functional decline in the setting of left femoral neck fracture s/p repair. He has continued impaired mobility and impaired independence with ADLs and IADLs requiring PT/OT/RELATIONSHIP ASSOCIATE 5-7 days/week 3 hours/day to maximize safety and independence with functional ability and self-care. -PT to improve patient's strength, endurance, bed mobility, transfers (sit- stand), standing balance, gait quality on level surfaces and stairs, coordination and functional ADL skills. We will also work to improve patient's safety awareness during transfers and ambulation. -OT for basic ADL retraining (bathing, dressing, toileting, continence, grooming, feeding, transferring), to increase activity tolerance and functional mobility to evaluate for adaptive assistive device. We will work to improve patient's endurance and educate patient on fall prevention and energy co nservation techniques-pacing strategies and proper breathing techniques duringfunctional tasks. -Patient education -Pressure ulcer prophylaxis; encourage mobilization, frequent postural changes, pressure-relief techniques -DVT prophylaxis -Encourage deep breathing exercise incentive spirometry. -Monitor bladder. Toileting schedule. Continue current bladder management, with scans as needed andCIC if needed. Start bowel care program every day to obtain continence, prevent ileus. -Maintain fall precautions -Gait and balance retraining -Provision of the necessary gait aids and functional adaptive equipment to enhance the patient's a functional voodoo -Encourage deep breathing exercises and incentive spirometry -RD evaluation -Ensure adequate nutrition and hydration -Discharge planning. #. UPDATES -Will add Melatonin for sleep -Will need clarification from Orthopedic surgery regarding duration of Doxycycline -Continue Tube feeds. ST to follow for dysphagia. Maintain NPO for now -Tylenol for pain management. Discussed with spouse. Avoid opioid pain medications as the patient has had adverse reactions in the past (ie over sedation). -Continue Lipitor, Plavix for history of CAD -Not on chronic anticoagulation for afib. H/o left atrial appendage ligation -Continue PT/OT/ST as ordered -Hospitalist to assist with management of comorbid medical conditions #. Pain control: Tylenol scheduled #. Bowel and bladder: Continent of Bowel/bladder #. Skin: (pressure ulcer/surgical site) Pressure ulcer prophylaxis; encourage mobilization, frequent postural changes, pressure-relief techniques #. Sleep: Optimize sleep/wake cycle DVT prophylaxis: Lovenox 40 mg daily Functional status: Impaired. Limited by pain, weakness Discharge planning: [facility] 1-2 weeks Advance care planning discussed with patient. Patient would like to be made DNR- CCA without intubation. Order placed. Patient was personally seen by me, Dr. Clifton, on the day of encounter, reviewed the history and the relevant portions of the chart, including current orders, allied health and product consultant notes, labs/imaging and performed bales elements of exam and I formulated the plan of care and facilitated the medical decision making. I completed a substantive portion of this encounter, the medical decision makingportion of this note in its entirety, including Allied health note review, nursing note review, product consultant note review,discussion with nursing and case management, and more than 50% of my time was spent on counseling and coordination of care, time spent 25 minutes Documented By: Jorge Clifton MD [id number] Signed By: 11/20/24 1307 [facility]02-25-2025 Consult note Author Re Rivera [facility] Note Date/Time November 20, 2024 6:00am [facility] [address] [place] [address] Hospitalist Consult Note Signed Patient: Bravo Arce MR#: [id number] : 1940 Acct:[id number] Age/Sex: 84 / M Adm Date: 5 Loc: Room: [address] [place] [address] Type: ADM IN Attending Dr: Jorge Clifton MD Copies to: MD Re Haas APRN Marcia E Braun, MD Obaydah M Daromar, MD~ HPI DATE OF CONSULTATION: 11/19/24 REQUESTING PROVIDER: Jorge Clifton Consult Narrative Reason for Consult: CHF, A-fib HPI: 84-year-old male past medical history significant for permanent atrial fibrillation status post left atrial appendage ligation, CAD status post CABG, mitral regurg status post repair, sick sinus syndrome status post pacemaker, BPHwith LUTS, GERD, parathyroid gland neoplasm posttreatment in remission. The patient had recently been hospitalized at [facility] with subsequent transfer to [facility] after a staring episode where she lowered him to the floor, required intubation for respiratory support, worked up for stroke and seizure with no answers found, reintubated after reported VT reaction to Geodon. He wasunable to have MRI secondary to pacemaker. [facility] with persistent hip pain reported since July with no known trauma. Imaging at [facility] demonstrated right femoral neck fracture. He presented to the emergency department November 10 and was admittedfor further management, underwent ORIF of femoral neck fracture with prosthetic replacement November 12 per orthopedic services. Postop evaluation of swallow ability found significant dysphagia necessitating n.p.o. status, seen by generalsurgery with placement of PEG November 15. Therapy with recommendations for ongoing rehab and he was subsequently discharged to that unit November 18. Hospitalist team now consulted for ongoing management of A-fib and heart failure. Patient seen and examined. No significant complaint of postoperative pain, doesendorse fatigue. Denies chest pain or palpitations. No cough, dyspnea, or painwith inspiration. No abdominal pain or indigestion, constipation or diarrhea, nausea or vomiting. No dysuria or retention. No headache or dizziness. No fevers or chills. Review of Systems Review of Systems All other systems reviewed & are negative unless noted below or in HPI [facility] Medical History (Updated 11/19/24 @ 18:54 by Re Rivera APRN) Malignant neoplasm of bladder Malignant neoplasm prostate BPH (benign prostatic hyperplasia) Afib Hyperlipidemia Malignant neoplasm of parathyroid gland Dysphagia COPD (chronic obstructive pulmonary disease) Acute respiratory failure GERD (gastroesophageal reflux disease) FH: cholecystectomy Broken hip Permanent atrial fibrillation Hypocalcemia History of head and neck cancer Hernia Essential hypertension Cellulitis of left lower extremity Benign paroxysmal positional vertigo, bilateral ASHD (arteriosclerotic heart disease) Apnea, sleep Anemia of chronic disease Surgical History History of right hip replacement Status cardiac pacemaker Mitral valve replaced Family History Father Mother Social History Smoking Status: Never smoker Substance Use Type: None Meds Medications and Allergies Allergies gabapentin Allergy (Unknown, Verified 11/10/24 19:15) Unknown Reaction penicillin V Allergy (Unknown, Verified 11/10/24 19:15) Unknown Reaction Penicillins Allergy (Unknown, Verified 11/10/24 19:15) Unknown Reaction haloperidol (From Haldol) Allergy (Verified 11/10/24 19:15) HYPOXIA lorazepam (From Ativan) Allergy (Verified 11/10/24 19:15) HYPOXIA ziprasidone (From Geodon) Allergy (Verified 11/10/24 19:15) HYPOXIC Home Medications metoprolol tartrate 50 mg tablet 50 mg feeding tube BID 01/09/18 [History Confirmed 11/18/24] clopidogrel 75 mg tablet 75 mg feeding tube DAILY 07/12/24 [History Confirmed 11/18/24] latanoprost 0.005 % eye drops 1 drp ophthalmic (eye) QHS 07/12/24 [History Confirmed 11/18/24] acetaminophen 325 mg capsule 975 mg feeding tube TID PRN pain 11/10/24 [History Confirmed 11/18/24] atorvastatin 20 mg tablet 20 mg feeding tube QPM 11/10/24 [History Confirmed 11/18/24] guaifenesin 100 mg/5 mL oral liquid 200 mg feeding tube Q4HR PRN congestion 11/10/24 [History Confirmed 11/18/24] lidocaine 4 % topical patch (Aspercreme (lidocaine)) 1 patch topical Q12HR PRN pain 11/10/24 [History Confirmed 11/18/24] melatonin 5 mg capsule 5 mg feeding tube QHS 11/10/24 [History Confirmed 11/18/24] polyethylene glycol 3350 17 gram oral powder packet (Miralax) 17 g feeding tube DAILY 11/10/24 [History Confirmed 11/18/24] sennosides 8.6 mg capsule (senna) 17.2 mg feeding tube QHS 11/10/24 [History Confirmed 11/18/24] docusate sodium 50 mg/5 mL oral liquid 100 mg (10 mL) PO BID 30 days #600 mL 11/18/24 [Rx Confirmed 11/18/24] doxycycline hyclate 100 mg capsule 100 mg PO BID #4 caps 11/18/24 [Rx Confirmed 11/18/24] finasteride 5 mg tablet 5 mg PO .GTUBE 30 days #0 tabs 11/18/24 [Rx Confirmed 11/18/24] Active Medications: Active Medications Generic Name Dose Route Start Last Admin Trade Name Freq PRN Reason Stop Dose Admin Acetaminophen 975 mg 11/19/24 15:00 Acetaminophen 650 Mg/20.3 Ml Oral.Susp PEG 11/19/25 14:59 TID JIM Al Hydrox/Mg Hydrox/Simethicone 30 ml 11/18/24 20:47 Mag Hydrox/Al Hydrox/Simeth 30 Ml Udc PEG 11/18/25 13:58 Q4H PRN Indigestion Atorvastatin Calcium 20 mg 11/18/24 21:00 11/18/24 21:56 Atorvastatin 20 Mg Tablet PEG 11/18/25 20:59 20 mg QPM JIM Administration Bisacodyl 10 mg 11/18/24 13:59 Bisacodyl 10 Mg Supp.Rect MT 11/18/25 13:58 DAILY PRN Constipation Clopidogrel Bisulfate 75 mg 11/19/24 09:00 11/19/24 09:28 Clopidogrel Bisulfate 75 Mg Tablet PEG 11/19/25 08:59 75 mg DAILY JIM Administration Docusate Sodium 283 mg 11/18/24 13:59 Docusate Enema 283 Mg/5 Ml Enema MT 11/18/25 13:58 DAILY PRN Constipation Docusate Sodium 100 mg 11/18/24 22:48 Docusate Liquid 100 Mg/10 Ml Udc PEG 11/18/25 20:59 BID PRN constipation Enoxaparin Sodium 40 mg 11/20/24 10:00 Enoxaparin 40 Mg/0.4 Ml Syringe SUBCUT 11/20/25 09:59 DAILY@1000 JIM Finasteride 5 mg 11/19/24 09:00 11/19/24 09:27 Finasteride 5 Mg Tablet PEG 11/19/25 08:59 5 mg DAILY JIM Administration Guaifenesin 10 ml 11/18/24 13:57 Guaifenesin Syrup 10 Ml Udc PEG 11/18/25 13:56 Q4HR PRN congestion Doxycycline Hyclate 100 mg in 100 mls @ 100 mls/hr 11/18/24 20:00 11/19/24 09:27 Doxy 100 IV 100 mls/hr Q12H JIM Administration Lactulose 30 gm 11/18/24 20:47 Lactulose 20 Gm/30 Ml Udc PEG 11/18/25 13:58 DAILY PRN Constipation Latanoprost 1 drops 11/18/24 22:00 11/18/24 21:55 Latanoprost 0.005% Op Soln 50 Drops/2.5 Ml Bottle EYE-BOTH 11/18/25 21:59 1drops QHS JIM Administration Lidocaine 1 patch 11/18/24 13:57 Lidocaine 4% Adh..Patch TOPICAL 11/18/25 13:56 Q12HR PRN pain Melatonin 5 mg 11/18/24 22:00 11/18/24 21:56 Melatonin 5 Mg Tablet PEG 11/18/25 21:59 5 mg QHS JIM Administration Metoprolol Tartrate 50 mg 11/18/24 21:00 11/19/24 09:28 Metoprolol Tartrate 50 Mg Tablet PEG 11/18/25 20:59 50 mg BID JIM Administration Polyethylene Glycol 17 gm 11/19/24 09:00 11/19/24 09:27 Polyethylene Glycol 3350 17 Gm Powd.Pack PEG 11/19/25 08:59 17 gm DAILY JIM Administration Sennosides 17.2 mg 11/19/24 12:00 Sennosides 8.6 Mg Tablet PEG 11/19/25 11:59 DAILY@12 PRN If no BM in 2 days Sennosides 8.8 mg 11/18/24 22:00 11/18/24 21:56 Sennosides Syrup 8.8 Mg/5 Ml Udc PEG 11/18/25 21:59 8.8 mg QHS JIM Administration Sodium Chloride 0 ml 11/18/24 13:59 Sodium Chloride 0.9 % 10 Ml Syringe IV-PUSH 11/18/25 13:58 PRN PRN Flush Sodium Chloride 10 ml 11/19/24 06:00 11/19/24 13:46 Sodium Chloride 0.9 % 10 Ml Syringe IV-PUSH 11/19/25 05:59 10 ml Q8H JIM Administration Exam Physical Exam Vital Signs: Temp Pulse Resp BP Pulse Ox O2 Del Method O2 Flow Rate 97.8 F 63 20 102/70 99 Nasal Cannula 2 11/19/24 14:47 11/19/24 14:47 11/19/24 14:47 11/19/24 14:47 11/19/24 14:47 11/19/24 14:47 11/19/24 14:47 Narrative: CONST- alert, in bed, frail elderly male HEAD- normocephalic and atraumatic EENT- sclera nonicteric and conjunctiva nonerythemic, moist oral mucosa, pharynxnot visualized NECK- supple, no cervical lymphadenopathy CARDIAC- RRR no abnormal heart tones PULM- diminished without wheeze or rhonchi, RA, no accessory muscle use or coughnoted ABD- S/NT, NABS, PEG EXTREM- no edema BLE, calves nontender SKIN- W/D, good turgor, left hip incision well approx without drainage or erythema MS- MAEx4 spontaneously with equal strength NEURO- A&Ox3, speech clear and tongue midline, equal facial symmetry PSYCH-mood and behavior appropriate Results - Hospitalist Consult Lab Results Labs: Laboratory Results - last 72 hr 11/19/24 11:30: POC Glucose 131, POC Glucose Comment Glu2: cleaned meter 11/19/24 06:32: POC Glucose 132 11/19/24 04:28: Corrected WBC 5.8, Uncorrected WBC Count 5.8, RBC 3.22 L, Hgb 10.0 L, Hct 29.6 L, MCV 92.0, MCH 31.2, MCHC 33.9, RDW 16.4 H, Plt Count 158, MPV 8.1, Neut % (Auto) 65.8, Lymph % (Auto) 16.0, [place] % (Auto) 13.3, Eos % (Auto) 4.4, Baso % (Auto) 0.5, Nucleat RBC Rel Count 0.1, Neut # (Auto) 3.8, Lymph # (Auto) 0.9 L, [place] # (Auto) 0.8, Eos # (Auto) 0.3, Baso # (Auto) 0.0, PHA Creatinine Clear 78.14, Sodium 136, Potassium 4.1, Chloride 102, Carbon Dioxide 29.7, Anion Gap 8.4, BUN 16, Creatinine 0.53 L, Est GFR (CKD-EPI) > 60.0, Glucose 118 H, Calcium 8.1 L, Total Bilirubin 0.9, AST 15, ALT 17, Alkaline Phosphatase 62, Total Protein 5.6 L, Albumin 2.6 L, Globulin 3.0, Albumin/Globulin Ratio 0.9, Prealbumin 8.9 L 11/18/24 20:26: POC Glucose 137, POC Glucose Comment Glu2: cleaned meter Assessment & Plan Assessment/Plan (1) Dysphagia: (2) Permanent atrial fibrillation: (3) Closed displaced fracture of left femoral neck: Plan Left femoral neck fracture s/p repair 11/12 Postoperative anemia Dysphagia s/p PEG placement 11/15 hx parathyroid radiation Weakness/ debility -further plan of care per PMR team for rehab therapy, pain control & bowel regimen, DVT prophylaxis Enoxaparin -Doxycycline -preop hemoglobin 12.3 Chronic Conditions 1. Hyperlipidemia- atorvastatin 2. CAD hx CABG, atrial fibrillation s/p left atrial appendage ligation, HFpEF- clopidogrel, Metoprolol 3. BPH with LUTS- finasteride 4. Glaucoma- latanoprost Documented By: Re Rivera APRN 10/28 01/18 1516 Signed By: <Electronically signed by GILL Rivera> 11/19/24 1855 <Electronically signed by Dylan Callejas MD> 11/20/24 0700 [facility] Work Phone: [phone]) 646-679902-25-2025 [place] [address] Hospitalist Consult Note Signed Patient: Bravo Arce MR#: [id number] : 1940 Acct:[id number] Age/Sex: 84 / M Adm Date: 5 Loc: Room: [address] [place] [address] Type: ADM IN Attending Dr: Jorge Clifton MD Copies to: MD Re Haas APRN Marcia E Braun, MD Obaydah M Daromar, MD~ HPI DATE OF CONSULTATION: 11/19/24 REQUESTING PROVIDER: Jorge Clifton Consult Narrative Reason for Consult: CHF, A-fib HPI: 84-year-old male past medical history significant for permanent atrial fibrillation status post left atrial appendage ligation, CAD status post CABG, mitral regurg status post repair, sick sinus syndrome status post pacemaker, BPHwith LUTS, GERD, parathyroid gland neoplasm posttreatment in remission. The patient had recently been hospitalized at [facility] with subsequent transfer to [facility] [place] after a staring episode where she lowered him to the floor, required intubation for respiratorysupport, worked up for stroke and seizure with no answers found, reintubated after reported VT reaction to Geodon. He wasunable to have MRI secondary to pacemaker. From there [facility] with persistent hip pain reported since July with no known trauma. [facility] demonstrated right femoral neck fracture. He presented to the emergency department November 10 and was admittedfor further management, underwent ORIF of femoral neck fracture with prosthetic replacement November 12 per orthopedic services. Postop evaluation of swallow ability found significant dysphagia necessitating n.p.o. status, seen by generalsurgery with placement of PEG November 15. Therapy with recommendations for ongoing rehab and he was subsequently discharged to that unit November 18. Hospitalist team now consulted for ongoing management of A-fib and heart marly lure. Patient seen and examined. No significant complaint of postoperative pain, doesendorse fatigue. Denies chest pain or palpitations. No cough, dyspnea, or painwith inspiration. No abdominal pain or indigestion, constipation or diarrhea, nausea or vomiting. No dysuria or retention. No headache or dizziness. No fevers or chills. Review of Systems Review of Systems All other systems reviewed & are negative unless noted below or in HPI [facility] Medical History (Updated 11/19/24 @ 18:54 by Re Rivera APRN) Malignant neoplasm of bladder Malignant neoplasm prostate BPH (benign prostatic hyperplasia) Afib Hyperlipidemia Malignant neoplasm of parathyroid gland Dysphagia COPD (chronic obstructive pulmonary disease) Acute respiratory failure GERD (gastroesophageal reflux disease) FH: cholecystectomy Broken hip Permanent atrial fibrillation Hypocalcemia History of head and neck cancer Hernia Essential hypertension Cellulitis of left lower extremity Benign paroxysmal positional vertigo, bilateral ASHD (arteriosclerotic heart disease) Apnea, sleep Anemia of chronic disease Surgical History History of right hip replacement Status cardiac pacemaker Mitral valve replaced Family History Father Mother Social History Smoking Status: Never smoker Substance Use Type: None Meds Medications and Allergies Allergies gabapentin Allergy (Unknown, Verified 11/10/24 19:15) Unknown Reaction penicillin V Allergy (Unknown, Verified 11/10/24 19:15) Unknown Reaction Penicillins Allergy (Unknown, Verified 11/10/24 19:15) Unknown Reaction haloperidol (From Haldol) Allergy (Verified 11/10/24 19:15) HYPOXIA lorazepam (From Ativan) Allergy (Verified 11/10/24 19:15) HYPOXIA ziprasidone (From Geodon) Allergy (Verified 11/10/24 19:15) HYPOXIC Home Medications metoprolol tartrate 50 mg tablet 50 mg feeding tube BID 01/09/18 [History Confirmed 11/18/24] clopidogrel 75 mg tablet 75 mg feeding tube DAILY 07/12/24 [History Confirmed 11/18/24] latanoprost 0.005 % eye drops 1 drp ophthalmic (eye) QHS 07/12/24 [History Confirmed 11/18/24] acetaminophen 325 mg capsule 975 mg feeding tube TID PRN pain 11/10/24 [History Confirmed 11/18/24] atorvastatin 20 mg tablet 20 mg feeding tube QPM 11/10/24 [History Confirmed 11/18/24] guaifenesin 100 mg/5 mL oral liquid 200 mg feeding tube Q4HR PRN congestion 11/10/24 [History Confirmed 11/18/24] lidocaine 4 % topical patch (Aspercreme (lidocaine)) 1 patch topical Q12HR PRN pain 11/10/24 [History Confirmed 11/18/24] melatonin 5 mg capsule 5 mg feeding tube QHS 11/10/24 [History Confirmed 11/18/24] polyethylene glycol 3350 17 gram oral powder packet (Miralax) 17 g feeding tube DAILY 11/10/24 [History Confirmed 11/18/24] sennosides 8.6 mg capsule (senna) 17.2 mg feeding tube QHS 11/10/24 [History Confirmed 11/18/24] docusate sodium 50 mg/5 mL oral liquid 100 mg (10 mL) PO BID 30 days #600 mL 11/18/24 [Rx [id number]/25] doxycycline hyclate 100 mg capsule 100 mg PO BID #4 caps 11/18/24 [Rx Confirmed 11/18/24] finasteride 5 mg tablet 5 mg PO .GTUBE 30 days #0 tabs 11/18/24 [Rx Confirmed 11/18/24] Active Medications: Active Medications Generic Name Dose Route Start Last Admin Trade Name Freq PRN Reason Stop Dose Admin Acetaminophen 975 mg 11/19/24 15:00 Acetaminophen 650 Mg/20.3 Ml Oral.Susp PEG 11/19/25 14:59 TID JIM Al Hydrox/Mg Hydrox/Simethicone 30 ml 11/18/24 20:47 Mag Hydrox/Al Hydrox/Simeth 30 Ml Udc PEG 11/18/25 13:58 Q4H PRN Indigestion Atorvastatin Calcium 20 mg 11/18/24 21:00 11/18/24 21:56 Atorvastatin 20 Mg Tablet PEG 11/18/25 20:59 20 mg QPM JIM Administration Bisacodyl 10 mg 11/18/24 13:59 Bisacodyl 10 Mg Supp.Rect MT 11/18/25 13:58 DAILY PRN Constipation Clopidogrel Bisulfate 75 mg 11/19/24 09:00 11/19/24 09:28 Clopidogrel Bisulfate 75 Mg Tablet PEG 11/19/25 08:59 75 mg DAILY JIM Administration Docusate Sodium 283 mg 11/18/24 13:59 Docusate Enema 283 Mg/5 Ml Enema MT 11/18/25 13:58 DAILY PRN Constipation Docusate Sodium 100 mg 11/18/24 22:48 Docusate Liquid 100 Mg/10 Ml Udc PEG 11/18/25 20:59 BID PRN constipation Enoxaparin Sodium 40 mg 11/20/24 10:00 Enoxaparin 40 Mg/0.4 Ml Syringe SUBCUT 11/20/25 09:59 DAILY@1000 JIM Finasteride 5 mg 11/19/24 09:00 11/19/24 09:27 Finasteride 5 Mg Tablet PEG 11/19/25 08:59 5 mg DAILY JIM Administration Guaifenesin 10 ml 11/18/24 13:57 Guaifenesin Syrup 10 Ml Udc PEG 11/18/25 13:56 Q4HR PRN congestion Doxycycline Hyclate 100 mg in 100 mls @ 100 mls/hr 11/18/24 20:00 11/19/24 09:27 Doxy 100 IV 100 mls/hr Q12H JIM Administration Lactulose 30 gm 11/18/24 20:47 Lactulose 20 Gm/30 Ml Udc PEG 11/18/25 13:58 DAILY PRN Constipation Latanoprost 1 drops 11/18/24 22:00 11/18/24 21:55 Latanoprost 0.005% Op Soln 50 Drops/2.5 Ml Bottle EYE-BOTH 11/18/25 21:59 1drops QHS JIM Administration Lidocaine 1 patch 11/18/24 13:57 Lidocaine 4% Adh..Patch TOPICAL 11/18/25 13:56 Q12HR PRN pain Melatonin 5 mg 11/18/24 22:00 11/18/24 21:56 Melatonin 5 Mg Tablet PEG 11/18/25 21:59 5 mg QHS JIM Administration Metoprolol Tartrate 50 mg 11/18/24 21:00 11/19/24 09:28 Metoprolol Tartrate 50 Mg Tablet PEG 11/18/25 20:59 50 mg BID JIM Administration Polyethylene Glycol 17 gm 11/19/24 09:00 11/19/24 09:27 Polyethylene Glycol 3350 17 Gm Powd.Pack PEG 11/19/25 08:59 17 gm DAILY JIM Administration Sennosides 17.2 mg 11/19/24 12:00 Sennosides 8.6 Mg Tablet PEG 11/19/25 11:59 DAILY@12 PRN If no BM in 2 days Sennosides 8.8 mg 11/18/24 22:00 11/18/24 21:56 Sennosides Syrup 8.8 Mg/5 Ml Udc PEG 11/18/25 21:59 8.8 mg QHS IJM Administration Sodium Chloride 0 ml 11/18/24 13:59 Sodium Chloride 0.9 % 10 Ml Syringe IV-PUSH 11/18/25 13:58 PRN PRN Flush Sodium Chloride 10 ml 11/19/24 06:00 11/19/24 13:46 Sodium Chloride 0.9 % 10 Ml Syringe IV-PUSH 11/19/25 05:59 10 ml Q8H JIM Administration Exam Physical Exam Vital Signs: Temp Pulse Resp BP Pulse Ox O2 Del Method O2 Flow Rate 97.8 F 63 20 102/70 99 Nasal Cannula 2 11/19/24 14:47 11/19/24 14:47 11/19/24 14:47 11/19/24 14:47 11/19/24 14:47 11/19/24 14:47 11/19/24 14:47 Narrative: CONST- alert, in bed, frail elderly male HEAD- normocephalic and atraumatic EENT- sclera nonicteric and conjunctiva nonerythemic, moist oral mucosa, pharynxnot visualized NECK- supple, no cervical lymphadenopathy CARDIAC- RRR no abnormal heart tones PULM- diminished without wheeze or rhonchi, RA, no accessory muscle use or coughnoted ABD- S/NT, NABS, PEG EXTREM- no edema BLE, calves nontender SKIN- W/D, good turgor, left hip incision well approx without drainage or erythema MS- MAEx4 spontaneously with equal strength NEURO- A&Ox3, speech clear and tongue midline, equal facial symmetry PSYCH-mood and behavior appropriate Results - Hospitalist Consult Lab Results Labs: Laboratory Results - last 72 hr 11/19/24 11:30: POC Glucose 131, POC Glucose Comment Glu2: cleaned meter 11/19/24 06:32: POC Glucose 132 11/19/24 04:28: Corrected WBC 5.8, Uncorrected WBC Count 5.8, RBC 3.22 L, Hgb 10.0 L, Hct 29.6 L, MCV 92.0, MCH 31.2, MCHC 33.9, RDW 16.4 H, Plt Count 158, MPV 8.1, Neut % (Auto) 65.8, Lymph % (Auto)16.0, [place] % (Auto) 13.3, Eos % (Auto) 4.4, Baso % (Auto) 0.5, Nucleat RBC Rel Count 0.1, Neut # (Auto) 3.8, Lymph # (Auto) 0.9 L, [place] # (Auto) 0.8, Eos # (Auto) 0.3, Baso # (Auto) 0.0, PHA Creatinine Clear 78.14, Sodium 136, Potassium 4.1, Chloride 102, Carbon Dioxide 29.7, Anion Gap 8.4, BUN 16,Creatinine 0.53 L, Est GFR (CKD-EPI) > 60.0, Glucose 118 H, Calcium 8.1 L, Total Bilirubin 0.9, AST 15, ALT 17, Alkaline Phosphatase 62, Total Protein 5.6 L, Albumin 2.6 L, Globulin 3.0, Albumin/Gl obulin Ratio 0.9, Prealbumin 8.9 L 11/18/24 20:26: POC Glucose 137, POC Glucose Comment Glu2: cleaned meter Assessment & Plan Assessment/Plan (1) Dysphagia: (2) Permanent atrial fibrillation: (3) Closed displaced fracture of left femoral neck: Plan Left femoral neck fracture s/p repair 11/12 Postoperative anemia Dysphagia s/p PEG placement 11/15 hx parathyroid radiation Weakness/ debility -further plan of care per PMR team for rehab therapy, pain control & bowel regimen, DVT prophylaxis Enoxaparin -Doxycycline -preop hemoglobin 12.3 Chronic Conditions 1. Hyperlipidemia- atorvastatin 2. CAD hx CABG, atrial fibrillation s/p left atrial appendage ligation, HFpEF- clopidogrel, Metoprolol 3. BPH with LUTS- finasteride 4. Glaucoma- latanoprost Documented By: Re Rivera APRN 10/28 01/18 1516 Signed By: 11/19/24 1855 11/20/24 0700 [facility]02-24-2025 History and physical note Author Jorge Clifton [facility] Note Date/Time November 19, 2024 11:13am [facility] [address] [place] [address] Physiatry (Rehab) H&P Signed Patient: Bravo Arce MR#: [id number] : 1940 Acct:[id number] Age/Sex: 84 / M Adm Date: 5 Loc: Room: [address] [place] [address] Type: ADM IN Attending Dr: Jorge Clifton MD Copies to: MD Mylene Haas MD~ Date of Service: 11/19/2024 HPI History of Present Illness: Mr. Arce is a 84 year old male with past medical history of chronic A-fib s/p left atrial appendage ligation in May 2022, on Plavix for CAD s/p CABGx 3 vessels, mitral regurg s/p repair, permanent afib with sick sinus syndrome s/p pacemaker placement, parathyroid gland neoplasm s/p treatment in remission, BPH with LUTS, GERD who presents with multifactorial functional decline in the setting of left femoral neck fracture s/p femoral neck repair. He recently had a prolonged hospitalization. He presented to [facility] about 3 weeks ago after his witnessed an episode where he went blank and froze . She witnessed the event and lowered him to the floor per her report. He was intubated on the ambulance ride to [facility]. He was extubated after 48 hours. She tells me he was worked up for stroke or seizure, and was transferred to [facility] at family request after having a bad reaction to Komal prompting reintubation. He was again subsequently extubated at after 2-3 days. She says the doctors at told her they did not have any answer as to the initial episode prompting his presentation to [facility]. She tells me that he has had 4 or 5 of these episodes over the past 20 years. He was unable to have an MRI due to incompatible pacemaker. He was discharged from [facility] to detention facility where hehad persistent hip pain. reports no trauma, but notes he has been having nagging hip pain since July. She reports urging the detention facility to do an x- ray which demonstrated right femoral neck fracture. He is now s/p femoral neck repair. He is also s/p PEG placement due to dysphagia The patient was seen and evaluated upon admission to rehab. He is in no distresscurrently. Does admit to feeling tired. He denies chest pain, SOB, fever, chills. Tolerating tube feeds thus far. Per the patient and his spouse, he has had issues with swallowing for some time. 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 He has been able to tolerate PO diet at home, but since being intubated for surgery it has worsened. I also discussed CODE STATUS today. Patient would like to be DNR-CCA without intubation at this time. [facility] Medical History Malignant neoplasm of bladder Malignant neoplasm prostate BPH (benign prostatic hyperplasia) Afib Hyperlipidemia Malignant neoplasm of parathyroid gland Dysphagia COPD (chronic obstructive pulmonary disease) Acute respiratory failure GERD (gastroesophageal reflux disease) FH: cholecystectomy Broken hip Permanent atrial fibrillation Hypocalcemia History of head and neck cancer Hernia Essential hypertension Cellulitis of left lower extremity Benign paroxysmal positional vertigo, bilateral ASHD (arteriosclerotic heart disease) Apnea, sleep Anemia of chronic disease Surgical History History of right hip replacement Status cardiac pacemaker Mitral valve replaced Family History Father Mother Social History Smoking Status: Never smoker Substance Use Type: None Review of Systems Review of Systems All other systems reviewed & are negative unless noted below or in HPI Meds Medications and Allergies Allergies gabapentin Allergy (Unknown, Verified 11/10/24 19:15) Unknown Reaction penicillin V Allergy (Unknown, Verified 11/10/24 19:15) Unknown Reaction Penicillins Allergy (Unknown, Verified 11/10/24 19:15) Unknown Reaction haloperidol (From Haldol) Allergy (Verified 11/10/24 19:15) HYPOXIA lorazepam (From Ativan) Allergy (Verified 11/10/24 19:15) HYPOXIA ziprasidone (From Geodon) Allergy (Verified 11/10/24 19:15) HYPOXIC Home and Active Meds: Home Medications metoprolol tartrate 50 mg tablet 50 mg feeding tube BID 01/09/18 [History Confirmed 11/18/24] clopidogrel 75 mg tablet 75 mg feeding tube DAILY 07/12/24 [History Confirmed 11/18/24] latanoprost 0.005 % eye drops 1 drp ophthalmic (eye) QHS 07/12/24 [History Confirmed 11/18/24] acetaminophen 325 mg capsule 975 mg feeding tube TID PRN pain 11/10/24 [History Confirmed 11/18/24] atorvastatin 20 mg tablet 20 mg feeding tube QPM 11/10/24 [History Confirmed 11/18/24] guaifenesin 100 mg/5 mL oral liquid 200 mg feeding tube Q4HR PRN congestion 11/10/24 [History Confirmed 11/18/24] lidocaine 4 % topical patch (Aspercreme (lidocaine)) 1 patch topical Q12HR PRN pain 11/10/24 [History Confirmed 11/18/24] melatonin 5 mg capsule 5 mg feeding tube QHS 11/10/24 [History Confirmed 11/18/24] polyethylene glycol 3350 17 gram oral powder packet (Miralax) 17 g feeding tube DAILY 11/10/24 [History Confirmed 11/18/24] sennosides 8.6 mg capsule (senna) 17.2 mg feeding tube QHS 11/10/24 [History Confirmed 11/18/24] docusate sodium 50 mg/5 mL oral liquid 100 mg (10 mL) PO BID 30 days #600 mL 11/18/24 [Rx Confirmed 11/18/24] doxycycline hyclate 100 mg capsule 100 mg PO BID #4 caps 11/18/24 [Rx Confirmed 11/18/24] finasteride 5 mg tablet 5 mg PO .GTUBE 30 days #0 tabs 11/18/24 [Rx Confirmed 11/18/24] Active Medications Acetaminophen (Acetaminophen 650 Mg/20.3 Ml Oral.Susp) 975 mg PEG TID PRN PRN Reason: Fever or Pain Stop: 11/18/25 21:59 Last Admin: 11/18/24 21:57 Dose: 975 mg Al Hydrox/Mg Hydrox/Simethicone (Mag Hydrox/Al Hydrox/Simeth 30 Ml Udc) 30 ml PEG Q4H PRN PRN Reason: Indigestion Stop: 11/18/25 13:58 Atorvastatin Calcium (Atorvastatin 20 Mg Tablet) 20 mg PEG QPM JIM Stop: 11/18/25 20:59 Last Admin: 11/18/24 21:56 Dose: 20 mg Bisacodyl (Bisacodyl 10 Mg Supp.Rect) 10 mg MT DAILY PRN PRN Reason: Constipation Stop: 11/18/25 13:58 Clopidogrel Bisulfate (Clopidogrel Bisulfate 75 Mg Tablet) 75 mg PEG DAILY [facility] Stop: 11/19/25 08:59 Last Admin: 11/19/24 09:28 Dose: 75 mg Docusate Sodium (Docusate Enema 283 Mg/5 Ml Enema) 283 mg MT DAILY PRN PRN Reason: Constipation Stop: 11/18/25 13:58 Docusate Sodium (Docusate Liquid 100 Mg/10 Ml Udc) 100 mg PEG BID PRN PRN Reason: constipation Stop: 11/18/25 20:59 Finasteride (Finasteride 5 Mg Tablet) 5 mg PEG DAILY [facility] Stop: 11/19/25 08:59 Last Admin: 11/19/24 09:27 Dose: 5 mg Guaifenesin (Guaifenesin Syrup 10 Ml Udc) 10 ml PEG Q4HR PRN PRN Reason: congestion Stop: 11/18/25 13:56 Doxycycline Hyclate (Doxy 100) 100 mg in 100 mls @ 100 mls/hr IV Q12H [facility] Last Admin: 11/19/24 09:27 Dose: 100 mls/hr Lactulose (Lactulose 20 Gm/30 Ml Udc) 30 gm PEG DAILY PRN PRN Reason: Constipation Stop: 11/18/25 13:58 Latanoprost (Latanoprost 0.005% Op Soln 50 Drops/2.5 Ml Bottle) 1 drops EYE-BOTH QHS [facility] Stop: 11/18/25 21:59 Last Admin: 11/18/24 21:55 Dose: 1 drops Lidocaine (Lidocaine 4% Adh..Patch) 1 patch TOPICAL Q12HR PRN PRN Reason: pain Stop: 11/18/25 13:56 Melatonin (Melatonin 5 Mg Tablet) 5 mg PEG QHS [facility] Stop: 11/18/25 21:59 Last Admin: 11/18/24 21:56 Dose: 5 mg Metoprolol Tartrate (Metoprolol Tartrate 50 Mg Tablet) 50 mg PEG BID [facility] Stop: 11/18/25 20:59 Last Admin: 11/19/24 09:28 Dose: 50 mg Polyethylene Glycol (Polyethylene Glycol 3350 17 Gm Powd.Pack) 17 gm PEG DAILY JIM Stop: 11/19/25 08:59 Last Admin: 11/19/24 09:27 Dose: 17 gm Sennosides (Sennosides 8.6 Mg Tablet) 17.2 mg PEG DAILY@12 PRN PRN Reason: If no BM in 2 days Stop: 11/19/25 11:59 Sennosides (Sennosides Syrup 8.8 Mg/5 Ml Udc) 8.8 mg PEG QHS [facility] Stop: 11/18/25 21:59 Last Admin: 11/18/24 21:56 Dose: 8.8 mg Sodium Chloride (Sodium Chloride 0.9 % 10 Ml Syringe) 0 ml IV-PUSH PRN PRN PRN Reason: Flush Stop: 11/18/25 13:58 Sodium Chloride (Sodium Chloride 0.9 % 10 Ml Syringe) 10 ml IV-PUSH Q8H [facility] Stop: 11/19/25 05:59 Last Admin: 11/19/24 05:50 Dose: 10 ml Tramadol HCl (Tramadol 50 Mg Tablet) 50 mg PO Q4H PRN PRN Reason: Pain Stop: 05/18/25 09:29 Exam Physical Exam Vital Signs: Temp Pulse Resp BP Pulse Ox O2 Del Method O2 Flow Rate 97.4 F L 78 18 126/81 94 L Nasal Cannula 2 11/19/24 05:00 11/19/24 05:00 11/19/24 05:00 11/19/24 05:00 11/19/24 05:00 11/19/24 08:00 11/19/24 08:00 Narrative: Pleasant NAD Extremities well perfused No respiratory distress PEG tube in place. Abdomen soft, non distended Right lower extremity limited by pain. Otherwise moving all limbs spontaneously Minimal edema Results - Phys. Rehab Labs Labs: Laboratory Results - last 24 hr 11/18/24 11/19/24 11/19/24 20:26 04:28 06:32 Corrected WBC 5.8 Uncorrected WBC Count 5.8 RBC 3.22 L Hgb 10.0 L Hct 29.6 L MCV 92.0 MCH 31.2 MCHC 33.9 RDW 16.4 H Plt Count 158 MPV 8.1 Neut % (Auto) 65.8 Lymph % (Auto) 16.0 [place] % (Auto) 13.3 Eos % (Auto) 4.4 Baso % (Auto) 0.5 Nucleat RBC Rel Count 0.1 Neut # (Auto) 3.8 Lymph # (Auto) 0.9 L [place] # (Auto) 0.8 Eos # (Auto) 0.3 Baso # (Auto) 0.0 PHA Creatinine Clear 78.14 Sodium 136 Potassium 4.1 Chloride 102 Carbon Dioxide 29.7 Anion Gap 8.4 BUN 16 Creatinine 0.53 L Est GFR (CKD-EPI) > 60.0 Glucose 118 H POC Glucose 137 132 POC Glucose Comment Glu2: cleaned meter Calcium 8.1 L Total Bilirubin 0.9 AST 15 ALT 17 Alkaline Phosphatase 62 Total Protein 5.6 L Albumin 2.6 L Globulin 3.0 Albumin/Globulin Ratio 0.9 Prealbumin 8.9 L Additional Results Results Comment: I reviewed clinical lab tests, radiology reports and obtained and summated medical records and have ordered follow up lab tests and imaging studies as needed for rehabilitation care. Individualized Plan of Care Individualized Plan of Care Plan of Care: Individualized Overall Plan of Care: Admit Date/Time: 11/18/24 Expected LOS: 2 weeks Expected Discharge Destination: Home Rehabilitation IGC: 8.11 Primary Diagnosis: Left femoral neck fx s/p hemiarthroplasty To have patient become more independent and to return home. Medical/ Functional Prognosis: Good Anticipated Functional Outcomes/Goals and Interventions: -Therapy Functional Outcome/Goal: Mobility/Locomotion: Patient likely to be Mod I with ambulation with assistive device. Anticipated interventions: Physician management, PT, OT, Dietitian, Rehab Nursing - Therapy Functional Outcome/Goal: Self Care: Patient likely to be functionally Mod I for activities of daily living using assistive / adaptive equipment as needed. Anticipated interventions: Physician management, PT, OT, Dietitian, Rehab Nursing - Therapy Functional Outcome/Goal: Bladder/Bowel Management: Patient likely to be Mod I with bladder care and independent with bowel care. Anticipated interventions: Physician management, PT, OT, Dietitian, Rehab Nursing -Therapy Functional Outcome/Goal: Communication/Cognition: Patient will be able to communicate fully and be safe cognitively. Anticipated interventions: Physician management, PT, OT,RELATIONSHIP ASSOCIATE Dietitian, Rehab Nursing -Therapy Functional Outcome/Goal: Patient will be Mod I for bed mobility and transfers Anticipated interventions: Physician management, PT, OT, Dietitian, Rehab Nursing -Therapy Functional Outcome/Goal: Patient will improve endurance to be able to tolerate all daily self care activities and avocational activities. Anticipated interventions: Physician management, PT, OT, Nutrition, Rehab Nursing -Therapy Functional Outcome/Goal: Patient will understand and assimilate / integrate education regarding management of their medical conditions to maintainhealth and wellbeing. Anticipated interventions: Physician management, PT, OT, Dietitian, Rehab Nursing Required Therapy PT: 1 hour per day at least 5 days per week with additional therapy on as neededbasis. Comments: PT to improve pt's strength, endurance, bed mobility, transfers (sit-stand), standing balance, gait quality on level surfaces and stairs, coordination and functional ADL skills. Will also work to improve pt's safety awareness during transfers and ambulation. OT: 1 hour per day at least 5 days per week with additional therapy on as neededbasis. Comments: OT for basic ADL re-training (bathing, dressing, toileting, continence, grooming, feeding, transferring), to increase activity tolerance andfunctional mobility and to evaluate for adaptive and assistive devices. Will work to improve pt's endurance and educate pt on fall prevention and energy conservation techniques-pacing strategies and proper breathing techniques duringfunctional tasks. Speech/Language - 1 hour per day at least 5 days per week with additional therapy on as needed basis. Comments: RELATIONSHIP ASSOCIATE to evaluate and treat patient?s cognition, language and communication skills, assess swallow function. Other: Dietitian, Rehab nursing, Wound, P&O, Neuropsychology as needed RATIONALE FOR IRF ADMISSION: Patient has both medical and functional complexities that require 24 hour daily monitoring and intervention from Manager Educational as well as other consulting physicians including internal medicine as well as 24 hour daily business developer nursing - for medical safe / optimal management. Patient requires interdisciplinary therapy team rehabilitation care including OT, PT, RELATIONSHIP ASSOCIATE, SW, Psychology, Rehab Nursing, requires and can tolerate at least 3 hours of daily OT and PT therapy at least 5 days weekly. The following medical conditions significantly impact the rehabilitation process andare being addressed daily and can not be managed at home or in a lesser intense medical setting: Refer to above problem oriented plan of care Assessment/Plan (1) Closed displaced fracture of left femoral neck: (2) Dysphagia: Qualifiers: Dysphagia type: unspecified Qualified Code(s): R13.10 - Dysphagia, unspecified (3) Permanent atrial fibrillation: (4) Sick sinus syndrome: (5) S/P CABG x 3: (6) Mild left ventricular systolic dysfunction: (7) Status post placement of cardiac pacemaker: (8) Severe protein-calorie malnutrition: (9) Impaired mobility and activities of daily living: Plan This is a 84-year-old male [facility]actorial functional decline in the setting of left femoral neck fracture s/p repair. He has continued impaired mobility and impaired independence with ADLs and IADLs requiring PT/OT/RELATIONSHIP ASSOCIATE 5-7 days/week 3 hours/day to maximize safety and independence with functional ability and self-care. -PT to improve patient's strength, endurance, bed mobility, transfers (sit- stand), standing balance, gait quality on level surfaces and stairs, coordination and functional ADL skills. We will also work to improve patient's safety awareness during transfers and ambulation. -OT for basic ADL retraining (bathing, dressing, toileting, continence, grooming, feeding, transferring), to increase activity tolerance and functional mobility to evaluate for adaptive assistive device. We will work to improve patient's endurance and educate patient on fall prevention and energy conservation techniques-pacing strategies and proper breathing techniques duringfunctional tasks. -Patient education -Pressure ulcer prophylaxis; encourage mobilization, frequent postural changes, pressure-relief techniques -DVT prophylaxis -Encourage deep breathing exercise incentive spirometry. -Monitor bladder. Toileting schedule. Continue current bladder management, with scans as needed and CIC if needed. Start bowel care program every day to obtain continence, prevent ileus. -Maintain fall precautions -Gait and balance retraining -Provision of the necessary gait aids and functional adaptive equipment to enhance the patient's a functional voodoo -Encourage deep breathing exercises and incentive spirometry -RD evaluation -Ensure adequate nutrition and hydration -Discharge planning. #. UPDATES -Admission labs and vitals viewed. Stable -Continue Tube feeds. ST to follow for dysphagia. Maintain NPO for now -Tylenol for pain management. Discussed with spouse. Avoid opioid pain medications as the patient has had adverse reactions in the past (ie over sedation). -Continue Lipitor, Plavix for history of CAD -Not on chronic anticoagulation for afib. H/o left atrial appendage ligation -Continue PT/OT/ST as ordered -Hospitalist to assist with management of comorbid medical conditions #. Pain control: Tylenol scheduled #. Bowel and bladder: Continent of Bowel/bladder #. Skin: (pressure ulcer/surgical site) Pressure ulcer prophylaxis; encourage mobilization, frequent postural changes, pressure-relief techniques #. Sleep: Optimize sleep/wake cycle DVT prophylaxis: Lovenox 40 mg daily Functional status: Impaired. Limited by pain, weakness Discharge planning: [facility] 1-2 weeks Advance care planning discussed with patient. Patient would like to be made DNR- CCA without intubation. Order placed. Patient was personally seen by me, Dr. Clifton, on the day of encounter, within 24 hours of rehab admission, reviewed the history and the relevant portions of the chart, including current orders, allied health and product consultant notes, labs/imaging and performed bales elements of exam and I formulated the planof care and facilitated the medical decision making. I completed a substantive portion of this encounter, the medical decision makingportion of this note in its entirety, including Allied health note review, nursing note review, product consultant note review, discussion with nursing and case management, and more than 50% of my time was spent on counseling and coordination of care, time spent 80 minutes Documented By: Jorge Clifton MD [id number] Signed By: <Electronically signed by Jorge Clifton MD> 11/19/24 [facility] Work Phone: [phone] [place] [address] Physiatry (Rehab) H&P Signed Patient: Bravo Arce MR#: [id number] : 1940 Acct:[id number] Age/Sex: 84 / M Adm Date: 5 Loc: Room: [address] [place] [address] Type: ADM IN Attending Dr: Jorge Clifton MD Copies to: MD Mylene Haas MD~ Date of Service: 11/19/2024 HPI History of Present Illness: Mr. Arce is a 84 year old male with past medical history of chronic A-fib s/p left atrial appendage ligation in May 2022, on Plavix for CAD s/p CABGx 3 vessels, mitral regurg s/p repair, permanent afib with sick sinus syndrome s/p pacemaker placement, parathyroid gland neoplasm s/p treatment in remission, BPH with LUTS, GERD who presents with multifactorial functional decline in the setting of left femoral neck fracture s/p femoral neck repair. He recently had a prolonged hospitalization. He presented to [facility] about 3 weeks ago after his witnessed an episode where he went blank and froze . She witnessed the event and lowered him to the floor per her report. He was intubated on the ambulance ride to [facility]. He was extubated after 48 hours. She tells me he was worked up for stroke or seizure, and was transferred to [facility] at family request after having a bad reaction to Geodon prompting reintubation. He was again subsequently extubated at after 2-3 days. She says the doctors at told her they did not have any answer as to the initial episode prompting his presentation to [facility]. She tells me that he has had 4 or 5 of these episodes over the past 20 years. He was unable to have an MRI due to incompatible pacemaker. He was discharged from [facility] to detention facility where hehad persistent hip pain. reports no trauma, but notes he has been having nagging hip pain since July. She reports urging the detention facility to do an x-ray which demonstrated right femoral neck fracture. He is now s/p femoral neck repair. He is also s/p PEG placement due to dysphagia The patient was seen and evaluated upon admission to rehab. He is in no distresscurrently. Does admit to feeling tired. He denies chest pain, SOB, fever, chills. Tolerating tube feeds thus far. Per the patient and his spouse, he has had issues with swallowing for some time. 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 He has been able to tolerate PO diet at home, but since being intubated for surgery it has worsened. I also discussed CODE STATUS today. Patient would like to be DNR-CCA without intubation at this time. [facility] Medical History Malignant neoplasm of bladder Malignant neoplasm prostate BPH (benign prostatic hyperplasia) Afib Hyperlipidemia Malignant neoplasm of parathyroid gland Dysphagia COPD (chronic obstructive pulmonary disease) Acute respiratory failure GERD (gastroesophageal reflux disease) FH: cholecystectomy Broken hip Permanent atrial fibrillation Hypocalcemia History of head and neck cancer Hernia Essential hypertension Cellulitis of left lower extremity Benign paroxysmal positional vertigo, bilateral ASHD (arteriosclerotic heart disease) Apnea, sleep Anemia of chronic disease Surgical History History of right hip replacement Status cardiac pacemaker Mitral valve replaced Family History Father Mother Social History Smoking Status: Never smoker Substance Use Type: None Review of Systems Review of Systems All other systems reviewed & are negative unless noted below or in HPI Meds Medications and Allergies Allergies gabapentin Allergy (Unknown, Verified 11/10/24 19:15) Unknown Reaction penicillin V Allergy (Unknown, Verified 11/10/24 19:15) Unknown Reaction Penicillins Allergy (Unknown, Verified 11/10/24 19:15) Unknown Reaction haloperidol (From Haldol) Allergy (Verified 11/10/24 19:15) HYPOXIA lorazepam (From Ativan) Allergy (Verified 11/10/24 19:15) HYPOXIA ziprasidone (From Geodon) Allergy (Verified 11/10/24 19:15) HYPOXIC Home and Active Meds: Home Medications metoprolol tartrate 50 mg tablet 50 mg feeding tube BID 01/09/18 [History Confirmed 11/18/24] clopidogrel 75 mg tablet 75 mg feeding tube DAILY 07/12/24 [History Confirmed 11/18/24] latanoprost 0.005 % eye drops 1 drp ophthalmic (eye) QHS 07/12/24 [History Confirmed 11/18/24] acetaminophen 325 mg capsule 975 mg feeding tube TID PRN pain 11/10/24 [History Confirmed 11/18/24] atorvastatin 20 mg tablet 20 mg feeding tube QPM 11/10/24 [History Confirmed 11/18/24] guaifenesin 100 mg/5 mL oral liquid 200 mg feeding tube Q4HR PRN congestion 11/10/24 [History Confirmed 11/18/24] lidocaine 4 % topical patch (Aspercreme (lidocaine)) 1 patch topical Q12HR PRN pain 11/10/24 [History Confirmed 11/18/24] melatonin 5 mg capsule 5 mg feeding tube QHS 11/10/24 [History Confirmed 11/18/24] polyethylene glycol 3350 17 gram oral powder packet (Miralax) 17 g feeding tube DAILY 11/10/24 [History Confirmed 11/18/24] sennosides 8.6 mg capsule (senna) 17.2 mg feeding tube QHS 11/10/24 [History Confirmed 11/18/24] docusate sodium 50 mg/5 mL oral liquid 100 mg (10 mL) PO BID 30 days #600 mL 11/18/24 [Rx Tebzoevsq43/23/25] doxycycline hyclate 100 mg capsule 100 mg PO BID #4 caps 11/18/24 [Rx Confirmed 11/18/24] finasteride 5 mg tablet 5 mg PO .GTUBE 30 days #0 tabs 11/18/24 [Rx Confirmed 11/18/24] Active Medications Acetaminophen (Acetaminophen 650 Mg/20.3 Ml Oral.Susp) 975 mg PEG TID PRN PRN Reason: Fever or Pain Stop: 11/18/25 21:59 Last Admin: 11/18/24 21:57 Dose: 975 mg Al Hydrox/Mg Hydrox/Simethicone (Mag Hydrox/Al Hydrox/Simeth 30 Ml Udc) 30 ml PEG Q4H PRN PRN Reason: Indigestion Stop: 11/18/25 13:58 Atorvastatin Calcium (Atorvastatin 20 Mg Tablet) 20 mg PEG QPM JIM Stop: 11/18/25 20:59 Last Admin: 11/18/24 21:56 Dose: 20 mg Bisacodyl (Bisacodyl 10 Mg Supp.Rect) 10 mg MT DAILY PRN PRN Reason: Constipation Stop: 11/18/25 13:58 Clopidogrel Bisulfate (Clopidogrel Bisulfate 75 Mg Tablet) 75 mg PEG DAILY JIM Stop: 11/19/25 08:59 Last Admin: 11/19/24 09:28 Dose: 75 mg Docusate Sodium (Docusate Enema 283 Mg/5 Ml Enema) 283 mg MT DAILY PRN PRN Reason: Constipation Stop: 11/18/25 13:58 Docusate Sodium (Docusate Liquid 100 Mg/10 Ml Udc) 100 mg PEG BID PRN PRN Reason: constipation Stop: 11/18/25 20:59 Finasteride (Finasteride 5 Mg Tablet) 5 mg PEG DAILY [facility] Stop: 11/19/25 08:59 Last Admin: 11/19/24 09:27 Dose: 5 mg Guaifenesin (Guaifenesin Syrup 10 Ml Udc) 10 ml PEG Q4HR PRN PRN Reason: congestion Stop: 11/18/25 13:56 Doxycycline Hyclate (Doxy 100) 100 mg in 100 mls @ 100 mls/hr IV Q12H [facility] Last Admin: 11/19/24 09:27 Dose: 100 mls/hr Lactulose (Lactulose 20 Gm/30 Ml Udc) 30 gm PEG DAILY PRN PRN Reason: Constipation Stop: 11/18/25 13:58 Latanoprost (Latanoprost 0.005% Op Soln 50 Drops/2.5 Ml Bottle) 1 drops EYE-BOTH QHS [facility] Stop: 11/18/25 21:59 Last Admin: 11/18/24 21:55 Dose: 1 drops Lidocaine (Lidocaine 4% Adh..Patch) 1 patch TOPICAL Q12HR PRN PRN Reason: pain Stop: 11/18/25 13:56 Melatonin (Melatonin 5 Mg Tablet) 5 mg PEG QHS [facility] Stop: 11/18/25 21:59 Last Admin: 11/18/24 21:56 Dose: 5 mg Metoprolol Tartrate (Metoprolol Tartrate 50 Mg Tablet) 50 mg PEG BID [facility] Stop: 11/18/25 20:59 Last Admin: 11/19/24 09:28 Dose: 50 mg Polyethylene Glycol (Polyethylene Glycol 3350 17 Gm Powd.Pack) 17 gm PEG DAILY [facility] Stop: 11/19/25 08:59 Last Admin: 11/19/24 09:27 Dose: 17 gm Sennosides (Sennosides 8.6 Mg Tablet) 17.2 mg PEG DAILY@12 PRN PRN Reason: If no BM in 2 days Stop: 11/19/25 11:59 Sennosides (Sennosides Syrup 8.8 Mg/5 Ml Udc) 8.8 mg PEG QHS JIM Stop: 11/18/25 21:59 Last Admin: 11/18/24 21:56 Dose: 8.8 mg Sodium Chloride (Sodium Chloride 0.9 % 10 Ml Syringe) 0 ml IV-PUSH PRN PRN PRN Reason: Flush Stop: 11/18/25 13:58 Sodium Chloride (Sodium Chloride 0.9 % 10 Ml Syringe) 10 ml IV-PUSH Q8H JIM Stop: 11/19/25 05:59 Last Admin: 11/19/24 05:50 Dose: 10 ml Tramadol HCl (Tramadol 50 Mg Tablet) 50 mg PO Q4H PRN PRN Reason: Pain Stop: 05/18/25 09:29 Exam Physical Exam Vital Signs: Temp Pulse Resp BP Pulse Ox O2 Del Method O2 Flow Rate 97.4 F L 78 18 126/81 94 L Nasal Cannula 2 11/19/24 05:00 11/19/24 05:00 11/19/24 05:00 11/19/24 05:00 11/19/24 05:00 11/19/24 08:00 11/19/24 08:00 Narrative: Pleasant NAD Extremities well perfused No respiratory distress PEG tube in place. Abdomen soft, non distended Right lower extremity limited by pain. Otherwise moving all limbs spontaneously Minimal edema Results - Phys. Rehab Labs Labs: Laboratory Results - last 24 hr 11/18/24 11/19/24 11/19/24 20:26 04:28 06:32 Corrected WBC 5.8 Uncorrected WBC Count 5.8 RBC 3.22 L Hgb 10.0 L Hct 29.6 L MCV 92.0 MCH 31.2 MCHC 33.9 RDW 16.4 H Plt Count 158 MPV 8.1 Neut % (Auto) 65.8 Lymph % (Auto) 16.0 [place] % (Auto) 13.3 Eos % (Auto) 4.4 Baso % (Auto) 0.5 Nucleat RBC Rel Count 0.1 Neut # (Auto) 3.8 Lymph # (Auto) 0.9 L [place] # (Auto) 0.8 Eos # (Auto) 0.3 Baso # (Auto) 0.0 PHA Creatinine Clear 78.14 Sodium 136 Potassium 4.1 Chloride 102 Carbon Dioxide 29.7 Anion Gap 8.4 BUN 16 Creatinine 0.53 L Est GFR (CKD-EPI) > 60.0 Glucose 118 H POC Glucose 137 132 POC Glucose Comment Glu2: cleaned meter Calcium 8.1 L Total Bilirubin 0.9 AST 15 ALT 17 Alkaline Phosphatase 62 Total Protein 5.6 L Albumin 2.6 L Globulin 3.0 Albumin/Globulin Ratio 0.9 Prealbumin 8.9 L Additional Results Results Comment: I reviewed clinical lab tests, radiology reports and obtained and summated medical records and haveordered follow up lab tests and imaging studies as needed for rehabilitation care. Individualized Plan of Care Individualized Plan of Care Plan of Care: Individualized Overall Plan of Care: Admit Date/Time: 11/18/24 Expected LOS: 2 weeks Expected Discharge Destination: Home Rehabilitation IGC: 8.11 Primary Diagnosis: Left femoral neck fx s/p hemiarthroplasty To have patient become more independent and to return home. Medical/ Functional Prognosis: Good Anticipated Functional Outcomes/Goals and Interventions: -Therapy Functional Outcome/Goal: Mobility/Locomotion: Patient likely to be Mod I with ambulation with assistive device. Anticipated interventions: Physician management, PT, OT, Dietitian, Rehab Nursing - Therapy Functional Outcome/Goal: Self Care: Patient likely to be functionally Mod I for activities of daily living using assistive / adaptive equipment as needed. Anticipated interventions: Physician management, PT, OT, Dietitian, Rehab Nursing - Therapy Functional Outcome/Goal: Bladder/Bowel Management: Patient likely to be Mod I with bladder care and independent with bowel care. Anticipated interventions: Physician management, PT, OT, Dietitian, Rehab Nursing -Therapy Functional Outcome/Goal: Communication/Cognition: Patient will be able to communicate fully and be safe cognitively. Anticipated interventions: Physician management, PT, OT,RELATIONSHIP ASSOCIATE Dietitian, Rehab Nursing -Therapy Functional Outcome/Goal: Patient will be Mod I for bed mobility and transfers Anticipated interventions: Physician management, PT, OT, Dietitian, Rehab Nursing -Therapy Functional Outcome/Goal: Patient will improve endurance to be able to tolerate all daily self care activities and avocational activities. Anticipated interventions: Physician management, PT, OT, Nutrition, Rehab Nursing -Therapy Functional Outcome/Goal: Patient will understand and assimilate / integrate education regarding management of their medical conditions to maintainhealth and wellbeing. Anticipated interventions: Physician management, PT, OT, Dietitian, Rehab Nursing Required Therapy PT: 1 hour per day at least 5 days per week with additional therapy on as neededbasis. Comments: PT to improve pt's strength, endurance, bed mobility, transfers (sit- stand), standing balance, gait quality on level surfaces and stairs, coordination and functional ADL skills. Will also work to improve pt's safety awareness during transfers and ambulation. OT: 1 hour per day at least 5 days per week with additional therapy on as neededbasis. Comments: OT for basic ADL re-training (bathing, dressing, toileting, continence, grooming, feeding, transferring), to increase activity tolerance andfunctional mobility and to evaluate for adaptive and assistive devices. Will work to improve pt's endurance and educate pt on fall prevention and energy conservation techniques-pacing strategies and proper breathing techniques duringfunctional tasks. Speech/Language - 1 hour per day at least 5 days per week with additional therapy on as needed basis. Comments: RELATIONSHIP ASSOCIATE to evaluate and treat patient?s cognition, language and communication skills, assess swallow function. Other: Dietitian, Rehab nursing, Wound, P&O, Neuropsychology as needed RATIONALE FOR IRF ADMISSION: Patient has both medical and functional complexities that require 24 hour daily monitoring and intervention from Manager Educational as well as other consulting physicians including internal medicine as well as 24 hour daily business developer nursing - for medical safe / optimal manageme nt. Patient requires interdisciplinary therapy team rehabilitation care including OT, PT, RELATIONSHIP ASSOCIATE, SW, Psychology, Rehab Nursing, requires and can tolerate at least 3 hours of daily OT and PT therapy at least 5 days weekly. The following medical conditions significantly impact the rehabilitation process andare being addressed daily and can not be managed at home or in a lesser intense medical setting: Refer to above problem oriented plan of care Assessment/Plan (1) Closed displaced fracture of left femoral neck: (2) Dysphagia: Qualifiers: Dysphagia type: unspecified Qualified Code(s): R13.10 - Dysphagia, unspecified (3) Permanent atrial fibrillation: (4) Sick sinus syndrome: (5) S/P CABG x 3: (6) Mild left ventricular systolic dysfunction: (7) Status post placement of cardiac pacemaker: (8) Severe protein-calorie malnutrition: (9) Impaired mobility and activities of daily living: Plan This is a 84-year-old male [facility] multifactorial functional decline in the setting of left femoral neck fracture s/p repair. He has continued impaired mobility and impaired independence with ADLs and IADLs requiring PT/OT/RELATIONSHIP ASSOCIATE 5-7 days/week 3 hours/day to maximize safety and independence with functional ability and self-care. -PT to improve patient's strength, endurance, bed mobility, transfers (sit- stand), standing balance, gait quality on level surfaces and stairs, coordination and functional ADL skills. We will also work to improve patient's safety awareness during transfers and ambulation. -OT for basic ADL retraining (bathing, dressing, toileting, continence, grooming, feeding, transferring), to increase activity tolerance and functional mobility to evaluate for adaptive assistive device. We will work to improve patient's endurance and educate patient on fall prevention and energy co nservation techniques-pacing strategies and proper breathing techniques duringfunctional tasks. -Patient education -Pressure ulcer prophylaxis; encourage mobilization, frequent postural changes, pressure-relief techniques -DVT prophylaxis -Encourage deep breathing exercise incentive spirometry. -Monitor bladder. Toileting schedule. Continue current bladder management, with scans as needed andCIC if needed. Start bowel care program every day to obtain continence, prevent ileus. -Maintain fall precautions -Gait and balance retraining -Provision of the necessary gait aids and functional adaptive equipment to enhance the patient's a functional voodoo -Encourage deep breathing exercises and incentive spirometry -RD evaluation -Ensure adequate nutrition and hydration -Discharge planning. #. UPDATES -Admission labs and vitals viewed. Stable -Continue Tube feeds. ST to follow for dysphagia. Maintain NPO for now -Tylenol for pain management. Discussed with spouse. Avoid opioid pain medications as the patient has had adverse reactions in the past (ie over sedation). -Continue Lipitor, Plavix for history of CAD -Not on chronic anticoagulation for afib. H/o left atrial appendage ligation -Continue PT/OT/ST as ordered -Hospitalist to assist with management of comorbid medical conditions #. Pain control: Tylenol scheduled #. Bowel and bladder: Continent of Bowel/bladder #. Skin: (pressure ulcer/surgical site) Pressure ulcer prophylaxis; encourage mobilization, frequent postural changes, pressure-relief techniques #. Sleep: Optimize sleep/wake cycle DVT prophylaxis: Lovenox 40 mg daily Functional status: Impaired. Limited by pain, weakness Discharge planning: [facility] 1-2 weeks Advance care planning discussed with patient. Patient would like to be made DNR- CCA without intubation. Order placed. Patient was personally seen by me, Dr. Clifton, on the day of encounter, within 24 hours of rehab admission, reviewed the history and the relevant portions of the chart, including current orders, allied health and product consultant notes, labs/imaging and performed bales elements of exam and I formulatedthe planof care and facilitated the medical decision making. I completed a substantive portion of this encounter, the medical decision makingportion of this note in its entirety, including Allied health note review, nursing note review, product consultant note review,discussion with nursing and case management, and more than 50% of my time was spent on counseling and coordination of care, time spent 80 minutes Documented By: Jorge Clifton MD [id number] Signed By: 11/19/24 1213 [facility]02-23-2025 Progress note Author Amadou Arreguin [facility] Note Date/Time November 18, 2024 10:08am [facility] [address] [place] [address] General Surgery Progress Note Signed Patient: Bravo Arce MR#: [id number] : 1940 Acct:[id number] Age/Sex: 84 / M Adm Date: 5 Loc: Room: [address] [place] [address] Type: ADM IN Attending Dr: Rahul Barboza MD Copies to: ~ Date of Service: 11/18/2024 Subjective Subjective HPI: Patient is postop day 2 status post EGD and PEG placement. Patient tolerating tube feeds at goal rate. Denies nausea or vomiting. Having some loose bowel movements. Allergies & Medications Medications and Allergies Allergies gabapentin Allergy (Unknown, Verified 11/10/24 19:15) Unknown Reaction penicillin V Allergy (Unknown, Verified 11/10/24 19:15) Unknown Reaction Penicillins Allergy (Unknown, Verified 11/10/24 19:15) Unknown Reaction haloperidol (From Haldol) Allergy (Verified 11/10/24 19:15) HYPOXIA lorazepam (From Ativan) Allergy (Verified 11/10/24 19:15) HYPOXIA ziprasidone (From Geodon) Allergy (Verified 11/10/24 19:15) HYPOXIC Home Medications metoprolol tartrate 50 mg tablet 50 mg feeding tube BID 01/09/18 [History Confirmed 11/10/24] clopidogrel 75 mg tablet 75 mg feeding tube DAILY 07/12/24 [History Confirmed 11/10/24] finasteride 5 mg tablet 5 mg PO .NG 07/12/24 [History Confirmed 11/10/24] latanoprost 0.005 % eye drops 1 drp ophthalmic (eye) QHS 07/12/24 [History Confirmed 11/10/24] acetaminophen 325 mg capsule 975 mg feeding tube TID PRN pain 11/10/24 [History Confirmed 11/10/24] atorvastatin 20 mg tablet 20 mg feeding tube QPM 11/10/24 [History Confirmed 11/10/24] guaifenesin 100 mg/5 mL oral liquid 200 mg feeding tube Q4HR PRN congestion 11/10/24 [History Confirmed 11/10/24] lidocaine 4 % topical patch (Aspercreme (lidocaine)) 1 patch topical Q12HR PRN pain 11/10/24 [History Confirmed 11/10/24] melatonin 5 mg capsule 5 mg feeding tube QHS 11/10/24 [History Confirmed 11/10/24] polyethylene glycol 3350 17 gram oral powder packet (Miralax) 17 g feeding tube DAILY 11/10/24 [History Confirmed 11/10/24] sennosides 8.6 mg capsule (senna) 17.2 mg feeding tube QHS 11/10/24 [History Confirmed 11/10/24] Active Medications Acetaminophen (Acetaminophen 325 Mg Tablet) 975 mg PO TID PRN PRN Reason: pain Stop: 11/10/25 20:02 Last Admin: 11/15/24 02:20 Dose: 975 mg Clopidogrel Bisulfate (Clopidogrel Bisulfate 75 Mg Tablet) 75 mg G-TUBE DAILY JIM Stop: 11/18/25 08:59 Last Admin: 11/18/24 08:30 Dose: 75 mg Diphenhydramine HCl (Diphenhydramine 25 Mg Capsule) 25 mg PO Q6H PRN PRN Reason: Itching Stop: 11/12/25 16:30 Docusate Sodium (Docusate Liquid 100 Mg/10 Ml Udc) 100 mg PO BID JIM Stop: 11/14/25 08:59 Last Admin: 11/18/24 08:30 Dose: 100 mg Finasteride (Finasteride 5 Mg Tablet) 5 mg PO DAILY JIM Stop: 11/11/25 08:59 Last Admin: 11/18/24 08:30 Dose: 5 mg Heparin Sodium (Porcine) (Heparin 5,000 Unit/Ml Vial) 5,000 unit SUBCUT Q8HR [facility] Stop: 11/11/25 21:59 Last Admin: 11/18/24 06:40 Dose: 5,000 unit Hydromorphone HCl (Hydromorphone 0.5 Mg/0.5 Ml Syringe) 0.5 mg IV-PUSH Q4H PRN PRN Reason: Pain Last Admin: 11/17/24 21:29 Dose: 0.5 mg Doxycycline Hyclate (Doxy 100) 100 mg in 100 mls @ 100 mls/hr IV Q12H [facility] Last Admin: 11/18/24 08:30 Dose: 100 mls/hr Latanoprost (Latanoprost 0.005% Op Soln 50 Drops/2.5 Ml Bottle) 1 drops EYE-BOTH QHS [facility] Stop: 11/10/25 21:59 Last Admin: 11/17/24 21:28 Dose: 1 drops Lidocaine (Lidocaine 4% Adh..Patch) 1 patch TOPICAL Q12HR PRN PRN Reason: pain Stop: 11/10/25 19:46 Lidocaine HCl (Lidocaine 1% 50 Ml Vial) 0.1 ml INTRADERMA PREOP PRN PRN Reason: Venipuncture x 1 Dose Lidocaine HCl (Lidocaine 1% 50 Ml Vial) 0.1 ml INTRADERMA PREOP PRN PRN Reason: Venipuncture x 1 Dose Melatonin (Melatonin 5 Mg Tablet) 5 mg PO QHS [facility] Stop: 11/10/25 21:59 Last Admin: 11/17/24 21:28 Dose: 5 mg Metoprolol Tartrate (Metoprolol Tartrate 50 Mg Tablet) 50 mg NG-TUBE BID [facility] Stop: 11/10/25 20:59 Last Admin: 11/18/24 08:30 Dose: 50 mg Ondansetron HCl (Ondansetron 4 Mg/2 Ml Vial) 4 mg IV-PUSH Q8H PRN PRN Reason: Nausea And Vomiting Stop: 11/12/25 16:20 Last Admin: 11/16/24 10:21 Dose: 4 mg Ondansetron HCl (Ondansetron 4 Mg/2 Ml Vial) 4 mg IV-PUSH Q6H PRN PRN Reason: Nausea/Vomiting Stop: 11/12/25 16:30 Last Admin: 11/14/24 17:01 Dose: 4 mg Oxycodone HCl (Oxycodone Ir 5 Mg Tablet) 5 mg PO Q8H PRN PRN Reason: Pain Last Admin: 11/13/24 21:43 Dose: 5 mg Pantoprazole Sodium (Pantoprazole 40 Mg Vial) 40 mg IV-PUSH DAILY [facility] Stop: 11/11/25 08:59 Last Admin: 11/18/24 08:30 Dose: 40 mg Polyethylene Glycol (Polyethylene Glycol 3350 17 Gm Powd.Pack) 17 gm NG-TUBE DAILY [facility] Stop: 11/11/25 08:59 Last Admin: 11/18/24 08:30 Dose: 17 gm Sennosides (Sennosides Syrup 8.8 Mg/5 Ml Udc) 8.8 mg PO QHS [facility] Stop: 11/10/25 21:59 Last Admin: 11/17/24 21:28 Dose: 8.8 mg Sodium Chloride (Sodium Chloride 0.9 % 10 Ml Syringe) 0 ml IV-PUSH PRN PRN PRN Reason: Flush Stop: 11/10/25 16:11 Last Admin: 11/14/24 09:02 Dose: 10 ml Sodium Chloride (Sodium Chloride 0.9 % 10 Ml Vial.Pf) 10 ml INJECTION PRN PRN PRN Reason: Dilution Stop: 11/10/25 19:19 Last Admin: 11/16/24 10:21 Dose: 10 ml Sodium Chloride (Sodium Chloride 0.9 % 10 Ml Syringe) 10 ml IV-PUSH PRN PRN PRN Reason: Flush Stop: 11/10/25 19:19 Last Admin: 11/15/24 11:51 Dose: 10 ml Sodium Chloride (Sodium Chloride 0.9 % 10 Ml Syringe) 0 ml IV-PUSH PRN PRN PRN Reason: Flush Stop: 11/12/25 06:00 Sodium Chloride (Sodium Chloride 0.9 % 10 Ml Syringe) 0 ml IV-PUSH QSHIFT [facility] Stop: 11/17/25 13:59 Last Admin: 11/18/24 06:41 Dose: 10 ml Exam Physical Exam Vital Signs: Temp Pulse Resp BP Pulse Ox O2 Del Method O2 Flow Rate 97.9 F 79 18 110/72 99 Nasal Cannula 2 11/18/24 07:15 11/18/24 07:15 11/18/24 07:15 11/18/24 07:15 11/18/24 07:15 11/18/24 07:15 11/18/24 07:15 Const General: cooperative and no acute distress GI Inspection: incision (PEG site clean and dry. External bolster at 1.5 cm at theskin level) and visible herniation (Reducible mid abdominal ventral hernia) Palpation: soft Neuro General: patient alert and patient awake Objective Pain Assessment Hip: Pain Description: Soreness Pain Intensity: 5 Coccyx: Pain Description: Constant and Aching Pain Intensity: 3 Abdomen: Pain Description: Constant and Aching Pain Intensity: 4 Intake & Output 24 hour I&O: Intake & Output 11/17/24 11/18/24 11/18/24 23:59 07:59 15:59 Intake Total 100 / 200 0 / 0 Output Total 400 / 1350 510 / 510 300 / 810 Balance -300 / -1150 -510 / -510 -300 / -810 Labs 11/16/24 05:30 11/16/24 05:30 Laboratory Results - Last 48 hrs. 11/18/24 07:42: POC Glucose 120 11/18/24 02:10: POC Glucose 127 11/17/24 20:17: POC Glucose 118 11/17/24 15:45: POC Glucose 99 11/17/24 11:37: POC Glucose 99, POC Glucose Comment Glu2: cleaned meter 11/17/24 08:00: POC Glucose 102 11/17/24 02:07: POC Glucose 131 11/16/24 20:30: POC Glucose 89 11/16/24 11:07: POC Glucose 120 11/15/24 20:34: Antigen Identification S Antigen - POSITIVE, Pathology Review Sent to pathology 11/15/24 20:34: Antigen Identification e Antigen - NEGATIVE 11/15/24 20:34: Antigen Identification c Antigen - POSITIVE 11/15/24 20:34: Antigen Identification K Antigen - NEGATIVE 11/15/24 20:34: Antigen Identification E Antigen - POSITIVE 11/15/24 20:34: Antigen Identification C Antigen - NEGATIVE A&P - General Surgery Assessment/Plan (1) Dysphagia: Qualifiers: Dysphagia type: unspecified Qualified Code(s): R13.10 - Dysphagia, unspecified (2) Severe protein-calorie malnutrition: Plan Tube feeds at goal rate. Patient is scheduled to go to rehab tomorrow. Documented By: Amadou Arreguin MD 11/18/24 1007 Signed By: <Electronically signed by MD Amadou Arreguin> 11/18/24 1008 [facility] Work Phone: [phone] 364-752102-23-2025 [place] [address] General Surgery Progress Note Signed Patient: Bravo Arce MR#: [id number] : 1940 Acct:[id number] Age/Sex: 84 / M Adm Date: 5 Loc: Room: [address] [place] [address] Type: ADM IN Attending Dr: Rahul Barboza MD Copies to: ~ Date of Service: 11/18/2024 Subjective Subjective HPI: Patient is postop day 2 status post EGD and PEG placement. Patient tolerating tube feeds at goal rate. Denies nausea or vomiting. Having some loose bowel movements. Allergies & Medications Medications and Allergies Allergies gabapentin Allergy (Unknown, Verified 11/10/24 19:15) Unknown Reaction penicillin V Allergy (Unknown, Verified 11/10/24 19:15) Unknown Reaction Penicillins Allergy (Unknown, Verified 11/10/24 19:15) Unknown Reaction haloperidol (From Haldol) Allergy (Verified 11/10/24 19:15) HYPOXIA lorazepam (From Ativan) Allergy (Verified 11/10/24 19:15) HYPOXIA ziprasidone (From Geodon) Allergy (Verified 11/10/24 19:15) HYPOXIC Home Medications metoprolol tartrate 50 mg tablet 50 mg feeding tube BID 01/09/18 [History Confirmed 11/10/24] clopidogrel 75 mg tablet 75 mg feeding tube DAILY 07/12/24 [History Confirmed 11/10/24] finasteride 5 mg tablet 5 mg PO .NG 07/12/24 [History Confirmed 11/10/24] latanoprost 0.005 % eye drops 1 drp ophthalmic (eye) QHS 07/12/24 [History Confirmed 11/10/24] acetaminophen 325 mg capsule 975 mg feeding tube TID PRN pain 11/10/24 [History Confirmed 11/10/24] atorvastatin 20 mg tablet 20 mg feeding tube QPM 11/10/24 [History Confirmed 11/10/24] guaifenesin 100 mg/5 mL oral liquid 200 mg feeding tube Q4HR PRN congestion 11/10/24 [History Confirmed 11/10/24] lidocaine 4 % topical patch (Aspercreme (lidocaine)) 1 patch topical Q12HR PRN pain 11/10/24 [History Confirmed 11/10/24] melatonin 5 mg capsule 5 mg feeding tube QHS 11/10/24 [History Confirmed 11/10/24] polyethylene glycol 3350 17 gram oral powder packet (Miralax) 17 g feeding tube DAILY 11/10/24 [History Confirmed 11/10/24] sennosides 8.6 mg capsule (senna) 17.2 mg feeding tube QHS 11/10/24 [History Confirmed 11/10/24] Active Medications Acetaminophen (Acetaminophen 325 Mg Tablet) 975 mg PO TID PRN PRN Reason: pain Stop: 11/10/25 20:02 Last Admin: 11/15/24 02:20 Dose: 975 mg Clopidogrel Bisulfate (Clopidogrel Bisulfate 75 Mg Tablet) 75 mg G-TUBE DAILY JIM Stop: 11/18/25 08:59 Last Admin: 11/18/24 08:30 Dose: 75 mg Diphenhydramine HCl (Diphenhydramine 25 Mg Capsule) 25 mg PO Q6H PRN PRN Reason: Itching Stop: 11/12/25 16:30 Docusate Sodium (Docusate Liquid 100 Mg/10 Ml Udc) 100 mg PO BID JIM Stop: 11/14/25 08:59 Last Admin: 11/18/24 08:30 Dose: 100 mg Finasteride (Finasteride 5 Mg Tablet) 5 mg PO DAILY JIM Stop: 11/11/25 08:59 Last Admin: 11/18/24 08:30 Dose: 5 mg Heparin Sodium (Porcine) (Heparin 5,000 Unit/Ml Vial) 5,000 unit SUBCUT Q8HR JIM Stop: 11/11/25 21:59 Last Admin: 11/18/24 06:40 Dose: 5,000 unit Hydromorphone HCl (Hydromorphone 0.5 Mg/0.5 Ml Syringe) 0.5 mg IV-PUSH Q4H PRN PRN Reason: Pain Last Admin: 11/17/24 21:29 Dose: 0.5 mg Doxycycline Hyclate (Doxy 100) 100 mg in 100 mls @ 100 mls/hr IV Q12H [facility] Last Admin: 11/18/24 08:30 Dose: 100 mls/hr Latanoprost (Latanoprost 0.005% Op Soln 50 Drops/2.5 Ml Bottle) 1 drops EYE-BOTH QHS [facility] Stop: 11/10/25 21:59 Last Admin: 11/17/24 21:28 Dose: 1 drops Lidocaine (Lidocaine 4% Adh..Patch) 1 patch TOPICAL Q12HR PRN PRN Reason: pain Stop: 11/10/25 19:46 Lidocaine HCl (Lidocaine 1% 50 Ml Vial) 0.1 ml INTRADERMA PREOP PRN PRN Reason: Venipuncture x 1 Dose Lidocaine HCl (Lidocaine 1% 50 Ml Vial) 0.1 ml INTRADERMA PREOP PRN PRN Reason: Venipuncture x 1 Dose Melatonin (Melatonin 5 Mg Tablet) 5 mg PO QHS [facility] Stop: 11/10/25 21:59 Last Admin: 11/17/24 21:28 Dose: 5 mg Metoprolol Tartrate (Metoprolol Tartrate 50 Mg Tablet) 50 mg NG-TUBE BID [facility] Stop: 11/10/25 20:59 Last Admin: 11/18/24 08:30 Dose: 50 mg Ondansetron HCl (Ondansetron 4 Mg/2 Ml Vial) 4 mg IV-PUSH Q8H PRN PRN Reason: Nausea And Vomiting Stop: 11/12/25 16:20 Last Admin: 11/16/24 10:21 Dose: 4 mg Ondansetron HCl (Ondansetron 4 Mg/2 Ml Vial) 4 mg IV-PUSH Q6H PRN PRN Reason: Nausea/Vomiting Stop: 11/12/25 16:30 Last Admin: 11/14/24 17:01 Dose: 4 mg Oxycodone HCl (Oxycodone Ir 5 Mg Tablet) 5 mg PO Q8H PRN PRN Reason: Pain Last Admin: 11/13/24 21:43 Dose: 5 mg Pantoprazole Sodium (Pantoprazole 40 Mg Vial) 40 mg IV-PUSH DAILY [facility] Stop: 11/11/25 08:59 Last Admin: 11/18/24 08:30 Dose: 40 mg Polyethylene Glycol (Polyethylene Glycol 3350 17 Gm Powd.Pack) 17 gm NG-TUBE DAILY JIM Stop: 11/11/25 08:59 Last Admin: 11/18/24 08:30 Dose: 17 gm Sennosides (Sennosides Syrup 8.8 Mg/5 Ml Udc) 8.8 mg PO QHS JIM Stop: 11/10/25 21:59 Last Admin: 11/17/24 21:28 Dose: 8.8 mg Sodium Chloride (Sodium Chloride 0.9 % 10 Ml Syringe) 0 ml IV-PUSH PRN PRN PRN Reason: Flush Stop: 11/10/25 16:11 Last Admin: 11/14/24 09:02 Dose: 10 ml Sodium Chloride (Sodium Chloride 0.9 % 10 Ml Vial.Pf) 10 ml INJECTION PRN PRN PRN Reason: Dilution Stop: 11/10/25 19:19 Last Admin: 11/16/24 10:21 Dose: 10 ml Sodium Chloride (Sodium Chloride 0.9 % 10 Ml Syringe) 10 ml IV-PUSH PRN PRN PRN Reason: Flush Stop: 11/10/25 19:19 Last Admin: 11/15/24 11:51 Dose: 10 ml Sodium Chloride (Sodium Chloride 0.9 % 10 Ml Syringe) 0 ml IV-PUSH PRN PRN PRN Reason: Flush Stop: 11/12/25 06:00 Sodium Chloride (Sodium Chloride 0.9 % 10 Ml Syringe) 0 ml IV-PUSH QSHIFT JIM Stop: 11/17/25 13:59 Last Admin: 11/18/24 06:41 Dose: 10 ml Exam Physical Exam Vital Signs: Temp Pulse Resp BP Pulse Ox O2 Del Method O2 Flow Rate 97.9 F 79 18 110/72 99 Nasal Cannula 2 11/18/24 07:15 11/18/24 07:15 11/18/24 07:15 11/18/24 07:15 11/18/24 07:15 11/18/24 07:15 11/18/24 07:15 Const General: cooperative and no acute distress GI Inspection: incision (PEG site clean and dry. External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 Range/Units 16:36 05:21 RBC 3.96 3.88 L (3.90-5.60) x10E6/uL Hgb 12.3 L 12.2 L (13.0-17.0) g/dL Hct 36.9 L 36.0 L (38.8-50.0) % Plt Count 244 220 (150-450) x10E3/uL Neut # (Auto) 5.1 4.2 (1.8-7.7) x10E3/uL Lymph # (Auto) 1.1 1.0 (1.00-4.8) x10E3/uL [place] # (Auto) 0.8 0.8 (0.0-0.8) x10E3/uL Eos # (Auto) 0.2 0.1 (0.0-0.45) x10E3/uL Baso # (Auto) 0.0 0.0 (0.0-0.2) x10E3/uL Comprehensive Metabolic Panel 11/10/24 11/11/24 Range/Units 16:36 05:21 Sodium 136 137 (136-145) mmol/L Potassium 4.9 4.9 (3.5-5.1) mmol/L Chloride 101 102 (98-107) mmol/L Carbon Dioxide 29.9 29.2 (21.0-31.0) mmol/L BUN 24 23 (7-25) mg/dL Creatinine 0.61 L 0.65 L (0.70-1.30) mg/dL Glucose 100 93 (70-100) mg/dL Calcium 8.5 L 8.9 (8.6-10.3) mg/dL AST 32 (13-39) U/L ALT 31 (7-52) U/L Alkaline Phosphatase 83 (34-104) U/L Total Protein 6.3 L (6.4-8.9) gm/dL Albumin 3.0 L (3.5-5.7) gm/dL Intake and Output 11/10/24 11/11/24 11/11/24 23:59 07:59 15:59 Intake Total 0 / 0 Output Total 400 / 400 Balance -400 / -400 Intake: Oral 0 / 0 Output: Urine 400 / 400 Other: Weight 61 kg Date of Last Bowel Movement 11/09/24 11/09/24 Lab 11/10/24 16:36 PT 11.7 INR 1.0 APTT 28.5 EKG Interpretations EKG Attestation EKG: I reviewed this ECG and interpreted as documented below: (Atrial fibrillation) A&P - Cardiology (1) Closed displaced fracture of left femoral neck: Assessment/Problem Details: This was caused by mechanical fall several weeks ago Plan: Orthopedic surgery is planning on operating during this admission Code(s): S72.002A - Fracture of unspecified part of neck of left femur, initial encounterfor closed fracture (2) Pre-op evaluation: Assessment/Problem Details: Cardiac risk assessment revealed an acceptable patient for the upcoming surgery with no further cardiac testing. Plan: Stop Plavix, timing for surgery to be determined by orthopedic surgery Code(s): Z01.818 - Encounter for other preprocedural examination (3) S/P CABG x 3: Assessment/Problem Details: This is back in 2021 and was associated with ligation of the left atrial bandage Plan: Continue secondary prevention measures, recently there has been no indication ofrecurrent ischemic events Code(s): Z95.1 - Presence of aortocoronary bypass graft (4) Mild left ventricular systolic dysfunction: Assessment/Problem Details: Echocardiogram 2 weeks ago at [facility] revealed ejection fraction approaching 50% Plan: Continue medications Code(s): I51.89 - Other ill-defined heart diseases (5) Sick sinus syndrome: Assessment/Problem Details: Status post pacemaker Code(s): I49.5 - Sick sinus syndrome (6) Permanent atrial fibrillation: Assessment/Problem Details: Not anticoagulated since he has left atrial appendage ligation in 2021 Plan: Continue rate control Code(s): I48.21 - Permanent atrial fibrillation (7) Status post placement of cardiac pacemaker: Plan: Continue to monitor in the pacemaker clinic Code(s): Z95.0 - Presence of cardiac pacemaker Plan See above Documented By: Chicho Sheppard MD, [facility] 5 1107 Signed By: 11/11/24 1121 [facility]02-15-2025 Evaluation note* Diagnosis Onset Date Resolution Status Admit Date Closed displaced fracture of left femoral neck acute November 10, 2024 7:04pm Dysphagia acute November 10, 2024 7:04pm History of head and neck cancer acute November 10, 025 7:04pm Mild left ventricular systol ic dysfunction acute November 10, 2 025 7:04pm Pathological fracture, left femur, initial encounter for fracture acute November 10, 025 7:04pm Permanent atrial fibrillation acute November 10, 2024 7:04pm Pre-op evaluation acute Februar y 2024 7:04pm S/P CABG x 3 acute October 7:04pm Severe protein-calorie malnutrition acute November 10, 2 025 7:04pm Sick sinus syndrome acute Febru dorothea2024 7:04pm Status post placement of cardiac pacemaker acute November 10, 2024 7:04pm [facility] Work Phone: 1(800) 321-368702-15-2025 Evaluation note* Diagnosis Onset Date Resolution Status Admit Date Closed displaced fracture of left femoral neck acute November 10, 2024 7:04pm Dysphagia acute November 10, 2024 7:04pm History of head and neck cancer acute November 10, 2 025 7:04pm Mild left ventricular systolic dysfunction acute November 102024 7:04pm Pathological fracture, left femur, initial encounter for fracture acute November 10, 2 025 7:04pm Permanent atrial fibrillation acute November 10, 2024 7:04pm S/P CABG x 3 acute October 7:04pm Severe protein-calorie malnutrition acute November 10, 2 025 7:04pm Sick sinus syndrome acute Febru 2024 7:04pm Status post placement of cardiac pacemaker acute November 10, 2024 7:04pm Pre-op evaluation resolved uar 2024 7:04pm Closed displaced fracture of left femoral neck acute November 18, 2024 1:05pm Counseling regarding advance care planning and goals of care acute November 18 025 1:05pm Dysphagia acute November 18, 2024 1:05pm Impaired mobility and activities of daily living acute 2024 1:05pm Mild left ventricular systolic dysfunction acute November 182024 1:05pm Permanent atrial fibrillation acute November 18, 2024 1:05pm S/P CABG x 3 acute October 1:05pm Severe protein-calorie malnutrition acute November 18 025 1:05pm Sick sinus syndrome acute u 2024 1:05pm Status post placement of cardiac pacemaker acute November 18, 2024 1:05pm [facility] Work Phone: 1(945) 529-124502-15-2025 Evaluation note* Diagnosis Onset Date Resolution Status Admit Date Closed displaced fracture of left femoral neck acute November 10, 2024 7:04pm Dysphagia acute November 10, 2024 7:04pm History of head and neck cancer acute November 10, 2 025 7:04pm Mild left ventricular systolic dysfunction acute November 102024 7:04pm Pathological fracture, left femur, initial encounter for fracture acute November 10, 2 025 7:04pm Permanent atrial fibrillation acute November 10, 2 025 7:04pm S/P CABG x 3 acute October 7:04pm Severe protein-calorie malnutrition acute November 10, 2 025 7:04pm Sick sinus syndrome acute Febru 2024 7:04pm Status post placement of cardiac pacemaker acute November 10, 2024 7:04pm Pre-op evaluation resolved uar y 2024 7:04pm Closed displaced fracture of left femoral neck acute November 18, 2024 1:05pm Counseling regarding advance care planning and goals of care acute November 18, 2 025 1:05pm Dysphagia acute November 18, 2024 1:05pm Impaired mobility and activities of daily living acute u 2024 1:05pm Mild left ventricular systolic dysfunction acute November 182024 1:05pm Permanent atrial fibrillation acute November 18, 2 025 1:05pm S/P CABG x 3 acute October 1:05pm Severe protein-calorie malnutrition acute November 18 025 1:05pm Sick sinus syndrome acute u 2024 1:05pm Status post placement of cardiac pacemaker acute November 18, 2024 1:05pm Closed displaced fracture of left femoral neck acute December 03 2:19pm Dysphagia acute December 03 2:19pm Permanent atrial fibrillation acute December 03, 2024 2:19pm Severe protein-calorie malnutrition acute December 03, 2024 2:19pm Sick sinus syndrome acute December 03, 2024 2:19pm Closed displaced fracture of left femoral neck acute December 07 9:35am History of total right hip arthroplasty noneactive December 07, 2024 9:35am [facility] Work Phone: 1(899) 881-561502-15-2025 Evaluation note* Diagnosis Onset Date Resolution Status Admit Date History of head and neck cancer acute November 10, 2 025 7:04pm Pathological fracture, left femur, initial encounter for fracture acute November 10, 2 025 7:04pm Pre-op evaluation resolved uar y 2024 7:04pm Closed displaced fracture of left femoral neck inactive November 10, 2024 7:04pm Dysphagia inactive November 10, 2024 7:04pm Mild left ventricular systolic dysfunction inactive November 102024 7:04pm Permanent atrial fibrillation inactive November 10, 2 025 7:04pm S/P CABG x 3 inactive October 7:04pm Severe protein-calorie malnutrition inactive February 15th, 2 025 7:04pm Sick sinus syndrome inactive 2024 7:04pm Status post placement of cardiac pacemaker inactive November 10, 2024 7:04pm Closed displaced fracture of left femoral neck inactive November 18, 2024 1:05pm Counseling regarding advance care planning and goals of care inactive November 18, 2 025 1:05pm Dysphagia inactive November 18, 2024 1:05pm Impaired mobility and activities of daily living inactive 2024 1:05pm Mild left ventricular systolic dysfunction inactive November 182024 1:05pm Permanent atrial fibrillation inactive November 18, 025 1:05pm S/P CABG x 3 inactive [...] hip arthroplasty noneactive December 07, 2024 9:35am [facility] Work Phone: 1(985) 481-123002-15-2025 Evaluation note* Diagnosis Onset Date Resolution Status Admit Date History of head and neck cancer acute November 10, 2 025 7:04pm Pathological fracture, left femur, initial encounter for fracture acute November 10, 2 025 7:04pm Pre-op evaluation resolved uar 2024 7:04pm Closed displaced fracture of left femoral neck inactive November 10, 2024 7:04pm Dysphagia inactive November 10, 2024 7:04pm Mild left ventricular systolic dysfunction inactive November 102024 7:04pm Permanent atrial fibrillation inactive November 10, 025 7:04pm S/P CABG x 3 inactive October 7:04pm Severe protein-calorie malnutrition inactive November 10 2 025 7:04pm Sick sinus syndrome inactive 2024 7:04pm Status post placement of cardiac pacemaker inactive November 10, 2024 7:04pm Closed displaced fracture of left femoral neck inactive November 18, 2024 1:05pm Counseling regarding advance care planning and goals of care inactive November 18, 025 1:05pm Dysphagia inactive November 18, 2024 1:05pm Impaired mobility and activities of daily living inactive 2024 1:05pm Mild left ventricular systolic dysfunction inactive November 182024 1:05pm Permanent atrial fibrillation inactive November 18, 025 1:05pm S/P CABG x 3 inactive [...] 9:35am Swallowing disorder acute January 242024 10:22am [facility] Work Phone: 1(760) 132-777202-07-2025 Miscellaneous Notes* Care Plan - Nany Lamar RN - 11/02/2024 11:22 AM EST The patient's goals for the shift include The clinical goals for the shift include pt will remain safe and free from falls/injury through endof shift Which was met. Pt discharging to SNF. * Care Plan - Krys Mary RN - 11/02/2024 12:58 AM EST Problem: Skin Goal: Participates in plan/prevention/treatment measures Outcome: Progressing Flowsheets (Taken 11/02/202456) Participates in plan/prevention/treatment measures: Elevate heels Goal: Prevent/manage excess moisture Outcome: Progressing Flowsheets (Taken 11/02/202456) Prevent/manage excess moisture: Cleanse incontinence/protect with barrier cream Moisturize dry skin Goal: Prevent/minimize sheer/friction injuries Outcome: Progressing Flowsheets (Taken 11/02/202456) Prevent/minimize sheer/friction injuries: HOB 30 degrees or less Turn/reposition every 2 hours/use positioning/transfer devices Use pull sheet Problem: Fall/Injury Goal: Not fall by end of shift 11/02/202457 by Krys Mary RN Outcome: Progressing 11/02/202456 by Krys Mary RN Outcome: Progressing Goal: Be free from injury by end of the shift 11/02/202457 by Krys Mary RN Outcome: Progressing 11/02/202456 by Krys aMry RN Outcome: Progressing Goal: Verbalize understanding of personal risk factors for fall in the hospital 11/02/202457 by Krys Mary RN Outcome: Progressing 11/02/202456 by Krys Mary RN Outcome: Progressing Goal: Verbalize understanding of risk factor reduction measures to prevent injury from fall in the home Outcome: Progressing Problem: Safety - Adult Goal: Free from fall injury Outcome: Progressing Problem: Discharge Planning Goal: Discharge to home or other facility with appropriate resources 11/02/202457 by Krys Mary RN Outcome: Progressing 11/02/202456 by Krys Mary RN Outcome: Progressing The patient's goals for the shift include The clinical goals for the shift include Pt remain HDS throughout the shift. - Needs attended. Position patient comfortably, turn q2. - Ensured safety. 0600H [place] changed. * Care Plan - Angela Catherine RN - 11/01/2024 10:26 AM EST The clinical goals for the shift include Pt to remain free of pain during shift Problem: Skin Goal: Decreased wound size/increased tissue granulation at next dressing change Outcome: Progressing Flowsheets (Taken 11/01/20241025) Decreased wound size/increased tissue granulation at next dressing change: Promote sleep for wound healing Goal: Participates in plan/prevention/treatment measures Outcome: Progressing Flowsheets (Taken 11/01/20241025) Participates in plan/prevention/treatment measures: Discuss with provider PT/OT consult Elevate heels Increase activity/out of bed for meals Goal: Prevent/manage excess moisture Outcome: Progressing Flowsheets (Taken 11/01/20241025) Prevent/manage excess moisture: Cleanse incontinence/protect with barrier cream Goal: Prevent/minimize sheer/friction injuries Outcome: Progressing Flowsheets (Taken 11/01/20241025) Prevent/minimize sheer/friction injuries: HOB 30 degrees or less Increase activity/out of bed for meals Turn/reposition every 2 hours/use positioning/transfer devices Use pull sheet Utilize specialty bed per algorithm Goal: Promote/optimize nutrition Outcome: Progressing Flowsheets (Taken 11/01/20241025) Promote/optimize nutrition: Monitor/record intake including meals Goal: Promote skin healing Outcome: Progressing Flowsheets (Taken 11/01/20241025) Promote skin healing: Assess skin/pad under line(s)/device(s) Turn/reposition every 2 hours/use positioning/transfer devices Problem: Fall/Injury Goal: Not fall by end of shift Outcome: Progressing Goal: Be free from injury by end of the shift Outcome: Progressing Goal: Verbalize understanding of personal risk factors for fall in the hospital Outcome: Progressing Goal: Verbalize understanding of risk factor reduction measures to prevent injury from fall in the home Outcome: Progressing Goal: Use assistive devices by end of the shift Outcome: Progressing Goal: Pace activities to prevent fatigue by end of the shift Outcome: Progressing Problem: Safety - Adult Goal: Free from fall injury Outcome: Progressing Problem: Discharge Planning Goal: Discharge to home or other facility with appropriate resources Outcome: Progressing Problem: Chronic Conditions and Co-morbidities Goal: Patient's chronic conditions and co-morbidity symptoms are monitored and maintained or improved Outcome: Progressing Problem: Nutrition Goal: Nutrient intake appropriate for maintaining nutritional needs Outcome: Progressing Problem: Safety - Medical Restraint Goal: Remains free of injury from restraints (Restraint for Interference with Electrocardiograph Repairer) Outcome: Progressing Goal: Free from restraint(s) (Restraint for Interference with Electrocardiograph Repairer) Outcome: Progressing Problem: Pain Goal: Takes deep breaths with improved pain control throughout the shift Outcome: Progressing Goal: Turns in bed with improved pain control throughout the shift Outcome: Progressing Goal: Walks with improved pain control throughout the shift Outcome: Progressing Goal: Performs ADL's with improved pain control throughout shift Outcome: Progressing Goal: Participates in PT with improved pain control throughout the shift Outcome: Progressing Goal: Free from opioid side effects throughout the shift Outcome: Progressing Goal: Free from acute confusion related to pain meds throughout the shift Outcome: Progressing * Care Plan - Kacie Jameson RN - 10/31/2024 9:21 PM EST Problem: Skin Goal: Prevent/manage excess moisture Outcome: Progressing Problem: Skin Goal: Prevent/minimize sheer/friction injuries Outcome: Progressing Problem: Skin Goal: Promote/optimize nutrition Outcome: Progressing Problem: Fall/Injury Goal: Not fall by end of shift Outcome: Progressing Problem: Fall/Injury Goal: Use assistive devices by end of the shift Outcome: Progressing Problem: Fall/Injury Goal: Pace activities to prevent fatigue by end of the shift Outcome: Progressing Problem: Safety - Adult Goal: Free from fall injury Outcome: Progressing The patient's goals for the shift include pt will remain HDS during shift The clinical goals for the shift include pt will remain free from falls and injuires Over the shift, the patient did not make progress toward the following goals. Barriers to progression include none. Recommendations to address these barriers include q2 hour turn assess needs, hourlyrounding, bed alarm is on, call light in reach . * Care Plan - Titi Brooke RN - 10/31/2024 11:22 AM EST The patient's goals for the shift include PT will remain HDS during this shift The clinical goals for the shift include PT will remain HDS during this shift * Care Plan - Kacie Jameson RN - 10/30/2024 9:13 PM EST Problem: Skin Goal: Participates in plan/prevention/treatment measures Outcome: Progressing Problem: Skin Goal: Prevent/manage excess moisture Outcome: Progressing Problem: Skin Goal: Promote/optimize nutrition Outcome: Progressing Problem: Skin Goal: Prevent/minimize sheer/friction injuries Outcome: Progressing Problem: Fall/Injury Goal: Be free from injury by end of the shift Outcome: Progressing Problem: Fall/Injury Goal: Pace activities to prevent fatigue by end of the shift Outcome: Progressing Problem: Fall/Injury Goal: Use assistive devices by end of the shift Outcome: Progressing Problem: Safety - Adult Goal: Free from fall injury Outcome: Progressing The patient's goals for the shift include No injuries or falls during shift The clinical goals for the shift include pt will remain HDS during shift Over the shift, the patient did not make progress toward the following goals. Barriers to progression include none. Recommendations to address these barriers include turn every 2 hours, bed alarm, call light in hand, assess during hourly rounding. * Care Plan - Yusra Gibson RN - 10/30/2024 6:27 PM EST Problem: Skin Goal: Promote skin healing Flowsheets (Taken 10/30/20241826) Promote skin healing: Ensure correct size (line/device) and apply per jumpbasting canvas baster instructions Protective dressings over bony prominences The patient's goals for the shift include The clinical goals for the shift include Patient will be safe and free from falls and injury Patient alert and oriented x 4. Patient has Problem: Skin Goal: Promote skin healing Flowsheets (Taken 10/30/20241826) Promote skin healing: Ensure correct size (line/device) and apply per jumpbasting canvas baster instructions Protective dressings over bony prominences Patient alert and oiriented x 4. Patient complained and was repositiond Q 2 hours. Patient tolerateted TF with no issues. VSS, call light within reach, bed alarm on Yusra Gibson RN * Care Plan - Tuyet Overton RN - 10/30/2024 6:00 AM EST Problem: Skin Goal: Prevent/manage excess moisture Outcome: Progressing Goal: Prevent/minimize sheer/friction injuries Outcome: Progressing Goal: Promote/optimize nutrition Outcome: Progressing Goal: Promote skin healing Outcome: Progressing Problem: Fall/Injury Goal: Not fall by end of shift Outcome: Progressing Goal: Be free from injury by end of the shift Outcome: Progressing Goal: Verbalize understanding of personal risk factors for fall in the hospital Outcome: Progressing Problem: Safety - Adult Goal: Free from fall injury Outcome: Progressing Problem: Discharge Planning Goal: Discharge to home or other facility with appropriate resources Outcome: Progressing Problem: Chronic Conditions and Co-morbidities Goal: Patient's chronic conditions and co-morbidity symptoms are monitored and maintained or improved Outcome: Progressing Problem: Nutrition Goal: Nutrient intake appropriate for maintaining nutritional needs Outcome: Progressing The patient's goals for the shift include The clinical goals for the shift include pt will remain HDS throughout shift Pt remained safe and free from injury this shift. VS remained stable. Pt's L leg pain managed with tylenol, toradol and hot packs. Pt continent x 2, up to bedside commode with x 2 assist. * Care Plan - Autumn Turner RN - 10/29/2024 9:41 AM EST Problem: Skin Goal: Decreased wound size/increased tissue granulation at next dressing change 10/29/2024 0941 by Autumn Turner RN Outcome: Progressing 10/29/2024940 by Autumn Turner RN Flowsheets (Taken 10/29/2024940) Decreased wound size/increased tissue granulation at next dressing change: Protective dressings over bony prominences Goal: Participates in plan/prevention/treatment measures Outcome: Progressing Goal: Prevent/manage excess moisture Outcome: Progressing Goal: Prevent/minimize sheer/friction injuries Outcome: Progressing Goal: Promote/optimize nutrition Outcome: Progressing Goal: Promote skin healing Outcome: Progressing Problem: Fall/Injury Goal: Not fall by end of shift Outcome: Progressing Goal: Be free from injury by end of the shift Outcome: Progressing Goal: Verbalize understanding of personal risk factors for fall in the hospital Outcome: Progressing Goal: Verbalize understanding of risk factor reduction measures to prevent injury from fall in the home Outcome: Progressing Goal: Use assistive devices by end of the shift Outcome: Progressing Goal: Pace activities to prevent fatigue by end of the shift Outcome: Progressing Problem: Safety - Adult Goal: Free from fall injury Outcome: Progressing Problem: Nutrition Goal: Nutrient intake appropriate for maintaining nutritional needs Outcome: Progressing The patient's goals for the shift include getting out of bed The clinical goals for the shift include pt will remain HDS throughout shift * Care Plan - Reema Murguia RN - 10/29/2024 2:12 AM EST The patient's goals for the shift include The clinical goals for the shift include pt will remain comfortable throughout the night * Care Plan - Marilin Bradford RN - 10/28/2024 3:51 PM EST Problem: Skin Goal: Decreased wound size/increased tissue granulation at next dressing change Outcome: Progressing Flowsheets (Taken 10/28/2024 1550) Decreased wound size/increased tissue granulation at next dressing change: Promote sleep for wound healing Protective dressings over bony prominences Goal: Participates in plan/prevention/treatment measures Outcome: Progressing Flowsheets (Taken 10/28/2024 1550) Participates in plan/prevention/treatment measures: Elevate heels Increase activity/out of bed for meals Goal: Prevent/manage excess moisture Outcome: Progressing Flowsheets (Taken 10/28/2024 1550) Prevent/manage excess moisture: Moisturize dry skin Follow provider orders for dressing changes Goal: Prevent/minimize sheer/friction injuries Outcome: Progressing Flowsheets (Taken 10/28/2024 1550) Prevent/minimize sheer/friction injuries: Use pull sheet Increase activity/out of bed for meals Goal: Promote/optimize nutrition Outcome: Progressing Flowsheets (Taken 10/28/2024 1550) Promote/optimize nutrition: Offer water/supplements/favorite foods Goal: Promote skin healing Outcome: Progressing Flowsheets (Taken 10/28/2024 1550) Promote skin healing: Turn/reposition every 2 hours/use positioning/transfer devices Protective dressings over bony prominences * Care Plan - Reema Murguia RN - 10/28/2024 12:47 AM EST The patient's goals for the shift include The clinical goals for the shift include pt will remain hemodynamically stable throughout this shift * Care Plan - Marilin Bradford RN - 10/27/2024 11:15 AM EST Problem: Skin Goal: Decreased wound size/increased tissue granulation at next dressing change Outcome: Progressing Flowsheets (Taken 10/27/2024 1114) Decreased wound size/increased tissue granulation at next dressing change: Promote sleep for wound healing Protective dressings over bony prominences Goal: Participates in plan/prevention/treatment measures Outcome: Progressing Flowsheets (Taken 10/27/2024 1114) Participates in plan/prevention/treatment measures: Discuss with provider PT/OT consult Increase activity/out of bed for meals Goal: Prevent/manage excess moisture Outcome: Progressing Flowsheets (Taken 10/27/2024 1114) Prevent/manage excess moisture: Moisturize dry skin Goal: Prevent/minimize sheer/friction injuries Outcome: Progressing Flowsheets (Taken 10/27/2024 111) Prevent/minimize sheer/friction injuries: Increase activity/out of bed for meals Goal: Promote/optimize nutrition Outcome: Progressing Flowsheets (Taken 10/27/2024 1114) Promote/optimize nutrition: Offer water/supplements/favorite foods Goal: Promote skin healing Outcome: Progressing Flowsheets (Taken 10/27/2024 111) Promote skin healing: Protective dressings over bony prominences * Care Plan - Zbigniew Zee RN - 10/27/2024 12:30 AM EST Pt. Being repositioned Q 2hours, no new skin issues noted. Utilizes call light appropriately will continue to monitor. Problem: Skin Goal: Decreased wound size/increased tissue granulation at next dressing change Outcome: Progressing Flowsheets (Taken 10/27/2024 0029) Decreased wound size/increased tissue granulation at next dressing change: Promote sleep for wound healing Goal: Participates in plan/prevention/treatment measures Outcome: Progressing Flowsheets (Taken 10/27/2024 0029) Participates in plan/prevention/treatment measures: Elevate heels * Care Plan - Betsy Gallardo RN - 10/26/2024 11:29 AM EST The patient's goals for the shift include The clinical goals for the shift include pt to remain hemodynamically stable and wean oxygen needs during shift Over the shift, the patient did not make progress toward the following goals. Recommendations to address these barriers include Problem: Skin Goal: Decreased wound size/increased tissue granulation at next dressing change Outcome: Progressing Goal: Participates in plan/prevention/treatment measures Outcome: Progressing Goal: Prevent/manage excess moisture Outcome: Progressing Goal: Prevent/minimize sheer/friction injuries Outcome: Progressing Goal: Promote/optimize nutrition Outcome: Progressing Goal: Promote skin healing Outcome: Progressing Problem: Fall/Injury Goal: Not fall by end of shift Outcome: Progressing Goal: Be free from injury by end of the shift Outcome: Progressing Goal: Verbalize understanding of personal risk factors for fall in the hospital Outcome: Progressing Goal: Verbalize understanding of risk factor reduction measures to prevent injury from fall in the home Outcome: Progressing Goal: Use assistive devices by end of the shift Outcome: Progressing Goal: Pace activities to prevent fatigue by end of the shift Outcome: Progressing Problem: Safety - Adult Goal: Free from fall injury Outcome: Progressing Problem: Discharge Planning Goal: Discharge to home or other facility with appropriate resources Outcome: Progressing Problem: Chronic Conditions and Co-morbidities Goal: Patient's chronic conditions and co-morbidity symptoms are monitored and maintained or improved Outcome: Progressing Problem: Nutrition Goal: Nutrient intake appropriate for maintaining nutritional needs Outcome: Progressing * Care Plan - Irwin Vazquez RN - 10/25/2024 7:28 AM EST The patient's goals for the shift include remaining safe while restrained The clinical goals for the shift include Pt will remain HDS throughout the shift. * Care Plan - Letitia Roe RN - 10/25/2024 5:50 AM EST Over the shift, the patient did not make progress toward the following goals. Barriers to progression include intubation. Recommendations to address these barriers include extubation. Problem: Safety - Medical Restraint Goal: Free from restraint(s) (Restraint for Interference with Electrocardiograph Repairer) Flowsheets (Taken 10/25/2024 0550) Free from restraint(s) (restraint for interference with medical radiation tech): ONCE/SHIFT or MINIMUM Every 12 hours: Assess and document the continuing need for restraints Every 24 hours: Continued use of restraint requires Licensed Independent Practitioner to perform face to face examination and written order Identify and implement measures to help patient regain control [facility] [phone]) 136-774302-07-2025 Nurse Note* Nany Lamar RN - 11/02/2024 10:11 AM EST Discharge report 11/02/24 1011- Attempted to call report to [facility] with no answer. 11/02/24 1029- Report called to Kayleigh GARZA at [facility]. Pt awaiting [facility] fish bait picker. * Angela Catherine RN - 11/02/2024 8:54 AM EST DISCHARGE NOTE An informational handout was provided to the patient which included instructions that addressed activity level, diet, discharge medications, and follow-up appointments. Discharge instructions were reviewed with patient. Patient verbalized understanding of instructions and had no further questions. IV was intact upon removal (by bedside RN). Patient has all belongings with him ready to take (glasses, case, clothes, and paperwork). Patient to be discharged to [facility] SNF via stretcher by [facility]. Angela Winslow RN * Darcy Jensen RN - 10/26/2024 5:15 PM EST 16:50: #12 Fr, small bore feeding tube inserted into left nare with Enteral Access System CORTARK 2per provider orders,including insertion of nasal bridle and removal of wire stylet; patient tolerated procedure; feeding tube secured at 80 cm; team made aware; bedside nurse notified and educated onappropriate use; no bleeding or adverse reaction noted; KUB activated for placement verification. documented in this [facility] Work Phone: [phone]) [phone] History of Present illness Narrative* Soumya Malik RN - 11/01/2024 5:46 PM EST 11/01/24 1601 Discharge Planning Who is requesting discharge planning? Provider Home or Post Acute Services Post acute facilities (Rehab/SNF/etc) Type of Post Acute Facility Services senior living Expected Discharge Disposition SNF ([facility]) Does the patient need discharge transport arranged? Yes [facility] coordination needed? Yes Has discharge transport been arranged? Yes What day is the transport expected? 11/02/24 What time is the transport expected? 0900 [place] was updated regarding the 2 accepting SNF's who confirmed they can accommodate pt with dobhoff tube for tube feeding (plan to repeat RELATIONSHIP ASSOCIATE eval in 2- 4 weeks) vs the 3 reviewing SNF's. stated she would like to proceed with accepting FOC [facility] vs waiting for the other reviewing SNF's to make a decision. [facility] SNF was updated of above, tube feed formula order, and [place] with follow up ENT appointment was sent to them via [facility] for [facility]. Transport wasconfirmed for 10am via [facility] stretcher in Roundtrip. Attending, nursing, and facility were all updated on transport time. service coordinator will continue to follow for discharge planning needs. Soumya Malik RN [employer] Salesperson (TCC) [phone] or [phone] * J Carlos Pitts MD - 11/01/2024 3:36 PM EST Bravo Arce is a 84 y.o. male on hospital day 8 of admission presenting with Arrhythmia. Subjective Awaiting placement. Objective GENERAL APPEARANCE: A&Ox3, appears in no acute distress HEAD: normocephalic, atraumatic THROAT: Oral cavity and pharynx normal. No inflammation, swelling, exudate, or lesions. NECK: Neck supple, non-tender without lymphadenopathy, masses or thyromegaly. CARDIAC: Normal S1 and S2. No S3, S4 or murmurs. Rhythm is regular. There is no peripheral edema, cyanosis or pallor. Extremities are warm and well perfused. No carotid bruits. LUNGS: Clear to auscultation bilaterally without rales, rhonchi, wheezing or diminished breath sounds. ABDOMEN: Positive bowel sounds. Soft, nondistended, nontender. No guarding or rebound. No masses. EXTREMITIES: No significant deformity or joint abnormality. No edema. Peripheral pulses intact. No varicosities. SKIN: Skin normal color, texture and turgor with no lesions or rash PSYCHIATRIC: oriented to person, place, and time, good judgement and reason, without hallucinations, abnormal affect or abnormal behaviors during the examination. Patient is not suicidal. Last Recorded Vitals Blood pressure 144/84, pulse 96, temperature 36.5 C (97.7 F), resp. rate 20, height 1.854 m (6' 1 ), weight 74 kg (163 lb 2.3 oz), SpO2 94%. Intake/Output last 3 Shifts: I/O last 3 completed shifts: In: 4634 (62.6 mL/kg) [NG/GT:4634] Out: 7550 (102 mL/kg) [Urine:7550 (2.8 mL/kg/hr)] Weight: 74 kg Relevant Results Lab Results Component Value Date WBC 9.9 10/31/2024 HGB 11.7 (L) 10/31/2024 HCT 35.9 (L) 10/31/2024 MCV 92 10/31/2024 PLT 271 10/31/2024 Lab Results Component Value Date GLUCOSE 117 (H) 10/31/2024 CALCIUM 7.9 (L) 10/31/2024 NA 138 10/31/2024 K 4.0 10/31/2024 CO2 24 10/31/2024 CL 106 10/31/2024 BUN 14 10/31/2024 CREATININE 0.50 10/31/2024 Scheduled medications acetaminophen, 975 mg, oral, q8h cefTRIAXone, 2 g, intravenous, q24h clopidogrel, 75 mg, oral, Daily finasteride, 5 mg, oral, Daily heparin, 5,000 Units, subcutaneous, q8h latanoprost, 1 drop, Both Eyes, Nightly lidocaine, 1 Application, Topical, Once lidocaine, 1 patch, transdermal, q24h melatonin, 5 mg, oral, Nightly metoprolol tartrate, 50 mg, oral, BID rosuvastatin, 10 mg, oral, Daily [Held by provider] tamsulosin, 0.4 mg, oral, Daily Continuous medications PRN medications PRN medications: dextrose, dextrose, glucagon, glucagon, guaiFENesin, ipratropium-albuteroL Assessment/Plan Patient is an 84 yo M with PMH significant for COPD, CAD (s/p CABG x3 JUÁREZ - LAD SVG - PDA SVG - OM 2021), A-fib (s/p Left atrial appendage ligation), SSS w/ AVB (s/p [place] PPM 2010), MR (s/p repair), TR, BPH, HLD, GERD, HTN, HFrEF (EF 50-55% 08/2022), hx bladder cancer (s/p TURBT), metastaticSCC (s/p excision/parathyroidectomy,neck dissection, and radiation therapy with residual [facility] with concerns for stroke versus syncope. Patient was transferred to [facility] for concern for arrhythmia in the setting of [place] PPM while intubated and mechanically ventilated. Patient Extubated on 10/25/24. Syncopal episode with altered mental status S/p Geodon causing AHRF requiring intubation mechanical ventilation - History: patient was worked up for seizure and stroke at OSH all of the workup was negative including imaging as well as video EEG per paper chart documentation. - Home meds: None - Pain: none - Sedation: none at this time Undifferentiated shock requiring vasopressors Cardiogenic Syncope? STJ AV PPM set to VVIR - History: CAD (s/p CABG x3 2021 JUÁREZ - LAD SVG - PDA SVG - OM ), A-fib (s/p Left atrial appendage ligation), SSS w/ AVB (s/p St[place] Ankush PPM 2010), MR (s/p repair), TR, HLD, GERD, HTN, HFpEF (EF 50-55% 08/2022) - Goals: [MAP> 65, HR 60-100] - Home meds: Plavix, lisinopril, Crestor - Last echo: 10/24/24 1. Left ventricular cavity size is mildly [...] vena cava appears mildly dilated, on vent. - Pressors: none for >24hrs AHRF (RESOLVED) Intubated on Mechanical ventilation s/p Geodon (RESOLVED) MSSA PNA - History: COPD, recent intubation 10/19/24 and extubation 10/23/24 - Home meds: none - Extubated on 10/25/24 - Continuous pulse oximetry - Currently on RA, O2 PRN to maintain SpO2 > 88%, wean as tolerated - Imaging: CXR: 10/25/24:1. Worsening bibasilar infiltrates. Differential to include atelectasis/edema/infection. 2. Moderate left small right pleural effusion. 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 - Home meds:, Causing recurrent none - Diet: NPO with Enteral nutrition: isosource 1.5 @60cc/hr goal - Supplementation: None - Prophylaxis: pepcid / protonix - Bowel regimen: none at this time - Last BM: Last BM Date: 10/29/24 - RELATIONSHIP ASSOCIATE consulted: --> at apparent risk for aspiration at this time; would rec NPO and discussing short-term non-oral nutrition while his resp status is being optimized - Underwent FEES and patient still requiring NPO, RELATIONSHIP ASSOCIATE recommend follow-up in 2-4 weeks for better idea of dysphagia prognosis Difficult Brown catheter placement requiring CBI at OSH Hypernatremia 2/2 poor PO - Daily RFP,Mg,Phos - History: Hx Bladder/prostate cancer s/p TURBT - Home meds: Finasteride 5 mg, Flomax 0.4 mg - Continue Brown with strict I/O Hx malignant SCC s/p radiotherapy surgical resection, Hx bladder/prostate cancer s/p TURP - Cont. finasteride Code status: FULL CODE Dispo: Failed FEES swallow exam, will follow-up with speech in 2-4 weeks, awaiting discharge to SNF Joe Pitts MD The patient encounter includes all but not limited to; Evaluation of laboratory results, pertinent imaging, and vital signs. Daily updates are discussed with any consulting services and family/medical power of civil litigation attorney as needed. The patient's discharge process begins at admission and daily contactwith the patient's TCC and SW is pertinent in their efficient and safe discharge. * GENE Morales - 11/01/2024 12:40 PM EST Inpatient RELATIONSHIP ASSOCIATE Swallow Treatment Patient Name: Bravo Arce Today's Date: 11/01/2024 Time Calculation Start Time: 1117 Stop Time: 1135 Time Calculation (min): 18 min Recommendations: NPO, continue non-oral nutrition/hydration Frequent oral care, at least x3/day May allow 1/2 tsp water for swallow stimulation and to assist w/ xerostomia/oral care Ongoing swallow therapy, repeat assessment in 2-4 weeks pending overall clinical improvement RELATIONSHIP ASSOCIATE Assessment: Swallow therapy completed targeting education and swallow exercises. Suspect dysphagia ongoing, continue plan of care. Plan: Inpatient/Swing Bed or Outpatient: Inpatient RELATIONSHIP ASSOCIATE Frequency: 3x per week Duration: 30 days RELATIONSHIP ASSOCIATE Discharge Recommendations: Continue skilled RELATIONSHIP ASSOCIATE services at the next level of care Discussed POC: Patient, Nursing, Physician RELATIONSHIP ASSOCIATE - OK to Discharge: Yes Goals: Patient/Family will verbalize/demonstrate comprehension of dysphagia education, strategies, recommendations and POC with 80% accuracy independently. Start: 10/26/24, End: 11/23/24 Progressing Patient will complete respiratory muscle strength training (RMST) adhering to progressive overload protocol with cues as needed for accurate completion. Start: 10/30/24, End: 11/23/24 Progressing Pt will complete CTAR x2 sets of x10 reps of 10 seconds holds; independent of cues, to improve hyolaryngeal elevation and UES opening; impacting airway protection and pharyngeal clearance during the swallow. Start: 10/30/24, End: 11/23/24 Progressing Pt will complete x30 trials of effortful swallows with cues as needed for accurate completion. Start: 10/30/24, End: 11/23/24 Progressing Subjective Pt upright and alert, oriented x4. Pt eager to participate. Breathing on room air. Objective Therapeutic Swallow Therapy: Effortful Swallow: Pt re-instructed on effortful swallow exercises. He completed x30 given 1/2 tspsof water every x5-6 repetitions to moisturize oropharynx. Min cues required for adequate execution of exercise. Did note intermittent coughing expectorating thick mucous. Chin tuck against resistance (CTAR): Pt re-instructed on exercise. Pt completed x10 repetitions of x5-7 second holds, for x1 set. Pt requires mod cues for accurate execution of exercise, particularlyto continuously breath throughout exercise. Expiratory muscle strength training (EMST): Pt instructed on exercise. Pt completed x5 reps given max cues for adequate completion. Printed handout provided and discussed, outlining protocol for each exercise and recommended regimen for independent completion outside of therapy. Pt and indicated understanding. Inpatient Education: Pt educated on result and recommendations. Gave him instruction for how many reps/sets to complete of each exercise w/ 's assist w/ remaining day. Pt indicated understanding. * J Carlos Pitts MD - 10/31/2024 4:31 PM EST Bravo Arce is a 84 y.o. male on hospital day 7 of admission presenting with Arrhythmia. Subjective Awaiting placement. Objective GENERAL APPEARANCE: A&Ox3, appears in no acute distress HEAD: normocephalic, atraumatic THROAT: Oral cavity and pharynx normal. No inflammation, swelling, exudate, or lesions. NECK: Neck supple, non-tender without lymphadenopathy, masses or thyromegaly. CARDIAC: Normal S1 and S2. No S3, S4 or murmurs. Rhythm is regular. There is no peripheral edema, cyanosis or pallor. Extremities are warm and well perfused. No carotid bruits. LUNGS: Clear to auscultation bilaterally without rales, rhonchi, wheezing or diminished breath sounds. ABDOMEN: Positive bowel sounds. Soft, nondistended, nontender. No guarding or rebound. No masses. EXTREMITIES: No significant deformity or joint abnormality. No edema. Peripheral pulses intact. No varicosities. SKIN: Skin normal color, texture and turgor with no lesions or rash PSYCHIATRIC: oriented to person, place, and time, good judgement and reason, without hallucinations, abnormal affect or abnormal behaviors during the examination. Patient is not suicidal. Last Recorded Vitals Blood pressure 131/76, pulse 84, temperature 36.9 C (98.4 F), temperature source Temporal, resp. rate 18, height 1.854 m (6' 1 ), weight 75.6 kg (166 lb 10.7 oz), SpO2 94%. Intake/Output last 3 Shifts: I/O last 3 completed shifts: In: 3832 (50.7 mL/kg) [NG/GT:3832] Out: 5150 (68.1 mL/kg) [Urine:5150 (1.9 mL/kg/hr)] Weight: 75.6 kg Relevant Results Lab Results Component Value Date WBC 9.9 10/31/2024 HGB 11.7 (L) 10/31/2024 HCT 35.9 (L) 10/31/2024 MCV 92 10/31/2024 PLT 271 10/31/2024 Lab Results Component Value Date GLUCOSE 117 (H) 10/31/2024 CALCIUM 7.9 (L) 10/31/2024 NA 138 10/31/2024 K 4.0 10/31/2024 CO2 24 10/31/2024 CL 106 10/31/2024 BUN 14 10/31/2024 CREATININE 0.50 10/31/2024 Scheduled medications cefTRIAXone, 2 g, intravenous, q24h clopidogrel, 75 mg, oral, Daily finasteride, 5 mg, oral, Daily heparin, 5,000 Units, subcutaneous, q8h latanoprost, 1 drop, Both Eyes, Nightly lidocaine, 1 Application, Topical, Once lidocaine, 1 patch, transdermal, q24h melatonin, 5 mg, oral, Nightly metoprolol tartrate, 50 mg, oral, BID rosuvastatin, 10 mg, oral, Daily [Held by provider] tamsulosin, 0.4 mg, oral, Daily Continuous medications PRN medications PRN medications: acetaminophen, dextrose, dextrose, glucagon, glucagon, guaiFENesin, ipratropium-albuteroL Assessment/Plan Patient is an 84 yo M with PMH significant for COPD, CAD (s/p CABG x3 JUÁREZ - LAD SVG - PDA SVG - OM 2021), A-fib (s/p Left atrial appendage ligation), SSS w/ AVB (s/p [facility]. Ankush PPM 2010), MR (s/p repair), TR, BPH, HLD, GERD, HTN, HFrEF (EF 50-55% 08/2022), hx bladder cancer (s/p TURBT), metastaticSCC (s/p excision/parathyroidectomy,neck dissection, and radiation therapy with residual dysphagia.[facility] with concerns for stroke versus syncope. Patient was transferred to [facility] CICU for concern for arrhythmia in the setting of [place] PPM while intubated and mechanically ventilated. Patient Extubated on 10/25/24. Syncopal episode with altered mental status S/p Geodon causing AHRF requiring intubation mechanical ventilation - History: patient was worked up for seizure and stroke at OSH all of the workup was negative including imaging as well as video EEG per paper chart documentation. - Home meds: None - Pain: none - Sedation: none at this time Undifferentiated shock requiring vasopressors Cardiogenic Syncope? STJ AV PPM set to VVIR - History: CAD (s/p CABG x3 2021 JUÁREZ - LAD SVG - PDA SVG - OM ), A-fib (s/p Left atrial appendage ligation), SSS w/ AVB (s/p [facility]. Ankush PPM 2010), MR (s/p repair), TR, HLD, GERD, HTN, HFpEF (EF 50-55% 08/2022) - Goals: [MAP> 65, HR 60-100] - Home meds: Plavix, lisinopril, Crestor - Last echo: 10/24/24 1. Left ventricular cavity size is mildly [...] vena cava appears mildly dilated, on vent. - Pressors: none for >24hrs AHRF (RESOLVED) Intubated on Mechanical ventilation s/p Geodon (RESOLVED) MSSA PNA - History: COPD, recent intubation 10/19/24 and extubation 10/23/24 - Home meds: none - Extubated on 10/25/24 - Continuous pulse oximetry - Currently on RA, O2 PRN to maintain SpO2 > 88%, wean as tolerated - Imaging: CXR: 10/25/24:1. Worsening bibasilar infiltrates. Differential to include atelectasis/edema/infection. 2. Moderate left small right pleural effusion. 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 - Home meds:, Causing recurrent none - Diet: NPO with Enteral nutrition: isosource 1.5 @60cc/hr goal - Supplementation: None - Prophylaxis: pepcid / protonix - Bowel regimen: none at this time - Last BM: Last BM Date: 10/29/24 - RELATIONSHIP ASSOCIATE consulted: --> at apparent risk for aspiration at this time; would rec NPO and discussing short-term non-oral nutrition while his resp status is being optimized - Underwent FEES and patient still requiring NPO, RELATIONSHIP ASSOCIATE recommend follow-up in 2-4 weeks for better idea of dysphagia prognosis Difficult Brown catheter placement requiring CBI at OSH Hypernatremia 2/2 poor PO - Daily RFP,Mg,Phos - History: Hx Bladder/prostate cancer s/p TURBT - Home meds: Finasteride 5 mg, Flomax 0.4 mg - Continue Brown with strict I/O Hx malignant SCC s/p radiotherapy surgical resection, Hx bladder/prostate cancer s/p TURP - Cont. finasteride Code status: FULL CODE Dispo: Failed FEES swallow exam, will follow-up with speech in 2-4 weeks, awaiting discharge to SNF Joe Pitts MD The patient encounter includes all but not limited to; Evaluation of laboratory results, pertinent imaging, and vital signs. Daily updates are discussed with any consulting services and family/medical power of civil litigation attorney as needed. The patient's discharge process begins at admission and daily contactwith the patient's TCC and SW is pertinent in their efficient and safe discharge. * Theresa Coreas PTA - 10/31/2024 2:34 PM EST Physical Therapy Physical Therapy Treatment Patient Name: Bravo Arce Department: [place] [id number] Room: 5061/5061-A Today's Date: 10/31/2024 Time Calculation Start Time: 1357 Stop Time: 1414 Time Calculation (min): 17 min Assessment/Plan PT Assessment PT Assessment Results: Decreased strength, Decreased endurance, Impaired balance, Decreased mobility, Decreased safety awareness, Pain Rehab Prognosis: Good Barriers to Discharge Home: Caregiver assistance, Physical needs Caregiver Assistance: Caregiver assistance needed per identified barriers - however, level of patient's required assistance exceeds assistance available at home Physical Needs: Stair navigation into home limited by function/safety, 24hr mobility assistance needed, High falls risk due to function or environment Evaluation/Treatment Tolerance: Patient limited by pain Medical Staff Made Aware: Yes Strengths: Attitude of self, Support of Caregivers Barriers to Participation: Comorbidities End of Session Communication: Bedside nurse Assessment Comment: Patient tolerated trans to chair at bedside this date. Continues to require increased assist with all mobility and would benefit from MOD intensity PT upon hospital d/c. Will update MD about increased L hip pain limiting mobility. End of Session Patient Position: Bed, 3 rail up, Alarm on PT Plan Inpatient/Swing Bed or Outpatient: Inpatient PT Plan Treatment/Interventions: Bed mobility, Transfer training, Gait training, Stair training, Balance training, Strengthening, Endurance training, Therapeutic exercise, Therapeutic activity, Home exerciseprogram, Positioning PT Plan: Ongoing PT PT Frequency: 4 times per week PT Discharge Recommendations: Moderate intensity level of continued care PT Recommended Transfer Status: Assist x2 PT - OK to Discharge: Yes General Visit Information: PT Visit PT Received On: 10/31/24 Response to Previous Treatment: Patient with no complaints from previous session. General Family/Caregiver Present: Yes Caregiver Feedback: and other family member at bedside and very supportive Prior to Session Communication: Bedside nurse Patient Position Received: Bed, 3 rail up, Alarm on Preferred Learning Style: visual, verbal General Comment: returned 13:57-14:14 to assist with trans back to bed Subjective Precautions: Precautions Hearing/Visual Limitations: slightly [id number] Medical Precautions: Cardiac precautions, Fall precautions Precautions Comment: docarlinoff, male santoswitrace, tele Objective Pain: Pain Assessment Pain Assessment: 0-10 0-10 (Numeric) Pain Score: (patient stating excruciating pain in his L hip with all mobility.) Pain Type: Acute pain Pain Location: Hip Pain Orientation: Left Cognition: Cognition Orientation Level: Oriented X4 Coordination: Movements are Fluid and Coordinated: Yes Postural Control: Postural Control Postural Control: Impaired Posture Comment: Fwd head/rounded shoulders Static Sitting Balance Static Sitting-Balance Support: Feet supported, Bilateral upper extremity supported Static Sitting-Level of Assistance: Contact guard Static Sitting-Comment/Number of Minutes: sitting EOB Static Standing Balance Static Standing-Balance Support: Bilateral upper extremity supported Static Standing-Level of Assistance: (Max A x 1 with progression to Mod A x 1 with increased cues for anterior weight shift and upright posture) Static Standing-Comment/Number of Minutes: standing at bedside Dynamic Standing Balance Dynamic Standing-Balance Support: Bilateral upper extremity supported Dynamic Standing-Level of Assistance: Maximum assistance Dynamic Standing-Balance: Turning (during trans to chair at bedside) Dynamic Standing-Comments: with fww Activity Tolerance: Activity Tolerance Endurance: Tolerates 10 - 20 min exercise with multiple rests Treatments: Bed Mobility Bed Mobility: Yes Bed Mobility 1 Bed Mobility 1: Supine to sitting Level of Assistance 1: Maximum assistance, Moderate verbal cues Bed Mobility Comments 1: HOB elevated Bed Mobility 2 Bed Mobility 2: Sitting to supine Level of Assistance 2: Moderate assistance, +2 Bed Mobility Comments 2: HOB flat Bed Mobility 3 Bed Mobility 3: Scooting (towards EOB) Level of Assistance 3: Moderate assistance (with assist of stuart pad) Ambulation/Gait Training Ambulation/Gait Training Performed: Yes Ambulation/Gait Training 1 Surface 1: Level tile Device 1: Rolling walker Assistance 1: Maximum assistance, Maximum verbal cues Quality of Gait 1: Narrow base of support, Diminished heel strike, Decreased step length, Forward flexed posture, Soft knee(s) Comments/Distance (ft) 1: 3 steps towards chair at bedside. As patient fatigued he started to lose balance posterior and required Max A to safely sit in chair at bedside. Demos pivot steps on R LE due to difficulty weight shifting to L LE because of pain Transfers Transfer: Yes Transfer 1 Transfer From 1: Bed to Transfer to 1: Stand Technique 1: Sit to stand Transfer Device 1: Walker Transfer Level of Assistance 1: Maximum assistance, Moderate verbal cues Trials/Comments 1: increased cues for hand placement and safety. Required x 2 attempts to arise Transfers 2 Transfer From 2: Stand to Transfer to 2: Chair with arms Technique 2: Stand to sit Transfer Device 2: Walker Transfer Level of Assistance 2: Maximum assistance, Maximum verbal cues Trials/Comments 2: demos posterior LOB and required increased assist to safely sit in chair Transfers 3 Transfer From 3: Chair with arms to Transfer to 3: Bed Technique 3: Stand pivot Transfer Device 3: (arm in arm) Transfer Level of Assistance 3: Maximum assistance, +2, Maximum verbal cues Trials/Comments 3: required x 2 attempts to complete Outcome Measures: [facility] Basic Mobility Turning from your back to your side while in a flat bed without using bedrails: A lot Moving from lying on your back to sitting on the side of a flat bed without using bedrails: A lot Moving to and from bed to chair (including a wheelchair): A lot Standing up from a chair using your arms (e.g. wheelchair or bedside chair): A lot To walk in hospital room: Total Climbing 3-5 steps with railing: Total Basic Mobility - Total Score: 10 Education Documentation Precautions, taught by Theresa Coreas PTA at 10/31/2024 2:31 PM. Learner: Family, Significant Other, Patient Readiness: Acceptance Method: Explanation Response: Verbalizes Understanding Comment: Reviewed safety with trans and gait Body Mechanics, taught by Theresa Coreas PTA at 10/31/2024 2:31 PM. Learner: Family, Significant Other, Patient Readiness: Acceptance Method: Explanation Response: Verbalizes Understanding Comment: Reviewed safety with trans and gait Mobility Training, taught by Theresa Coreas PTA at 10/31/2024 2:31 PM. Learner: Family, Significant Other, Patient Readiness: Acceptance Method: Explanation Response: Verbalizes Understanding Comment: Reviewed safety with trans and gait Education Comments No comments found. OP EDUCATION: Encounter Problems Encounter Problems (Active) Balance Pt will demonstrate improved sitting/standing static/dynamic balance activities without LOB for increase in safety prior to DC. (Progressing) Start: 10/25/24 Expected End: 11/08/24 Mobility Pt will tolerate >15 minutes of upright standing activity without seated rest breaks with no changes in vital signs for improved functional mobility. (Progressing) Start: 10/25/24 Expected End: 11/08/24 Pt will ambulate >10ft with appropriate form, Mod A or less, LRAD, and no LOB for safe DC. (Progressing) Start: 10/25/24 Expected End: 11/08/24 PT Transfers Pt will perform bed mobility Min A and use of LRAD to safely DC. (Progressing) Start: 10/25/24 Expected End: 11/08/24 Pt will perform sit<>stand transfers with Mod A and use of LRAD to safely DC. (Progressing) Start: 10/25/24 Expected End: 11/08/24 Cosigned by Joycelyn Ren, PT at 10/31/2024 2:47 PM EST * Shannan Alex, RELATIONSHIP ASSOCIATE - 10/31/2024 1:02 PM EST Inpatient RELATIONSHIP ASSOCIATE Swallow Treatment Patient Name: Bravo Arce Today's Date: 10/31/2024 Time Calculation Start Time: 1025 Stop Time: 1108 Time Calculation (min): 43 min Recommendations: NPO, continue non-oral nutrition/hydration Frequent oral care, at least x3/day May allow 1/2 tsp water for swallow stimulation and to assist w/ xerostomia/oral care Ongoing swallow therapy, repeat assessment in 2-4 weeks pending overall clinical improvement RELATIONSHIP ASSOCIATE Assessment: Swallow therapy completed targeting education and introduction of swallow exercises. Pt and both actively participated, pt benefits from mod cues for adequate execution of exercises. Plan: Inpatient/Swing Bed or Outpatient: Inpatient RELATIONSHIP ASSOCIATE Frequency: 3x per week Duration: 30 days RELATIONSHIP ASSOCIATE Discharge Recommendations: Continue skilled RELATIONSHIP ASSOCIATE services at the next level of care Discussed POC: Patient, Nursing, Physician RELATIONSHIP ASSOCIATE - OK to Discharge: Yes Goals: Patient/Family will verbalize/demonstrate comprehension of dysphagia education, strategies, recommendations and POC with 80% accuracy independently. Start: 10/26/24, End: 11/23/24 Progressing Patient will complete respiratory muscle strength training (RMST) adhering to progressive overload protocol with cues as needed for accurate completion. Start: 10/30/24, End: 11/23/24 Progressing Pt will complete CTAR x2 sets of x10 reps of 10 seconds holds; independent of cues, to improve hyolaryngeal elevation and UES opening; impacting airway protection and pharyngeal clearance during the swallow. Start: 10/30/24, End: 11/23/24 Progressing Pt will complete x30 trials of effortful swallows with cues as needed for accurate completion. Start: 10/30/24, End: 11/23/24 Progressing Subjective Pt upright and alert, oriented x4. Drowsy requiring min cues to stay awake. Pt eager to participate. at bedside. Breathing on room air. Objective Therapeutic Swallow Therapy: Effortful Swallow: Pt instructed on effortful swallow exercises. He completed x20 given 1/2 tsps ofwater every x5-6 repetitions to moisturize oropharynx. Min cues required for adequate execution of exercise. Did note intermittent coughing expectorating thick mucous. Chin tuck against resistance (CTAR): Pt instructed on exercise. Pt completed x10 repetitions of [id number] holds, for x1 set. Pt required max cues for accurate execution of exercise, particularly to continuously breath throughout exercise. Expiratory muscle strength training (EMST): Pt instructed on exercise. Pt completed x5 sets of x5 reps (x25 working breaths total) given max cues for adequate completion. Pt required less cueing as the sets progressed. Printed handout provided and discussed, outlining protocol for each exercise and recommended regimen for independent completion outside of therapy. Pt and indicated understanding. Inpatient Education: Pt/ re-educated on plan of care as established previous date. They indicated understanding. * J Carlos Pitts MD - 10/30/2024 5:56 PM EST Bravo Arce is a 84 y.o. male on hospital day 6 of admission presenting with Arrhythmia. Subjective The patient was seen and examined at bedside. Denies SOB, chest pain, and abdominal pain. Objective GENERAL APPEARANCE: A&Ox3, appears in no acute distress HEAD: normocephalic, atraumatic THROAT: Oral cavity and pharynx normal. No inflammation, swelling, exudate, or lesions. NECK: Neck supple, non-tender without lymphadenopathy, masses or thyromegaly. CARDIAC: Normal S1 and S2. No S3, S4 or murmurs. Rhythm is regular. There is no peripheral edema, cyanosis or pallor. Extremities are warm and well perfused. No carotid bruits. LUNGS: Clear to auscultation bilaterally without rales, rhonchi, wheezing or diminished breath sounds. ABDOMEN: Positive bowel sounds. Soft, nondistended, nontender. No guarding or rebound. No masses. EXTREMITIES: No significant deformity or joint abnormality. No edema. Peripheral pulses intact. No varicosities. SKIN: Skin normal color, texture and turgor with no lesions or rash PSYCHIATRIC: oriented to person, place, and time, good judgement and reason, without hallucinations, abnormal affect or abnormal behaviors during the examination. Patient is not suicidal. Last Recorded Vitals Blood pressure 163/72, pulse 92, temperature 37.1 C (98.8 F), resp. rate 18, height 1.854 m (6' 1 ), weight 75.6 kg (166 lb 10.7 oz), SpO2 95%. Intake/Output last 3 Shifts: I/O last 3 completed shifts: In: 3114.4 (41.2 mL/kg) [I.V.:95.4 (1.3 mL/kg); NG/GT:2919; IV Piggyback:100] Out: 1525 (20.2 mL/kg) [Urine:1525 (0.6 mL/kg/hr)] Weight: 75.6 kg Relevant Results Lab Results Component Value Date WBC 7.7 10/29/2024 HGB 10.7 (L) 10/29/2024 HCT 33.0 (L) 10/29/2024 MCV 95 10/29/2024 PLT 218 10/29/2024 Lab Results Component Value Date GLUCOSE 121 (H) 10/30/2024 CALCIUM 7.9 (L) 10/30/2024 NA 138 10/30/2024 K 4.1 10/30/2024 CO2 24 10/30/2024 CL 108 (H) 10/30/2024 BUN 18 10/30/2024 CREATININE 0.50 10/30/2024 Scheduled medications cefTRIAXone, 2 g, intravenous, q24h clopidogrel, 75 mg, oral, Daily finasteride, 5 mg, oral, Daily heparin, 5,000 Units, subcutaneous, q8h latanoprost, 1 drop, Both Eyes, Nightly lidocaine, 1 Application, Topical, Once lidocaine, 1 patch, transdermal, q24h melatonin, 5 mg, oral, Nightly metoprolol tartrate, 50 mg, oral, BID rosuvastatin, 10 mg, oral, Daily [Held by provider] tamsulosin, 0.4 mg, oral, Daily Continuous medications PRN medications PRN medications: acetaminophen, dextrose, dextrose, glucagon, glucagon, guaiFENesin, ipratropium-albuteroL Assessment/Plan Patient is an 84 yo M with PMH significant for COPD, CAD (s/p CABG x3 JUÁREZ - LAD SVG - PDA SVG - OM 2021), A-fib (s/p Left atrial appendage ligation), SSS w/ AVB (s/p [facility] Ank[place] PPM 2010), MR (s/p repair), TR, BPH, HLD, GERD, HTN, HFrEF (EF 50-55% 08/2022), hx bladder cancer (s/p TURBT), metastaticSCC (s/p excision/parathyroidectomy,neck dissection, and radiation therapy with residual dysphagia.[facility] with concerns for stroke versus syncope. Patient was transferred to [facility] for concern for arrhythmia in the setting of [place] PPM while intubated and mechanically ventilated. Patient Extubated on 10/25/24. Syncopal episode with altered mental status S/p Geodon causing AHRF requiring intubation mechanical ventilation - History: patient was worked up for seizure and stroke at OSH all of the workup was negative including imaging as well as video EEG per paper chart documentation. - Home meds: None - Pain: none - Sedation: none at this time Undifferentiated shock requiring vasopressors Cardiogenic Syncope? STJ AV PPM set to VVIR - History: CAD (s/p CABG x3 2021 JUÁREZ - LAD SVG - PDA SVG - OM ), A-fib (s/p Left atrial appendage ligation), SSS w/ AVB (s/p St. Ankush PPM 2010), MR (s/p repair), TR, HLD, GERD, HTN, HFpEF (EF 50-55% 08/2022) - Goals: [MAP> 65, HR 60-100] - Home meds: Plavix, lisinopril, Crestor - Last echo: 10/24/24 1. Left ventricular cavity size is mildly [...] vena cava appears mildly dilated, on vent. - Pressors: none for >24hrs AHRF (RESOLVED) Intubated on Mechanical ventilation s/p Geodon (RESOLVED) MSSA PNA - History: COPD, recent intubation 10/19/24 and extubation 10/23/24 - Home meds: none - Extubated on 10/25/24 - Continuous pulse oximetry - Currently on RA, O2 PRN to maintain SpO2 > 88%, wean as tolerated - Imaging: CXR: 10/25/24:1. Worsening bibasilar infiltrates. Differential to include atelectasis/edema/infection. 2. Moderate left small right pleural effusion. 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 - Home meds:, Causing recurrent none - Diet: NPO with Enteral nutrition: isosource 1.5 @60cc/hr goal - Supplementation: None - Prophylaxis: pepcid / protonix - Bowel regimen: none at this time - Last BM: Last BM Date: 10/29/24 - RELATIONSHIP ASSOCIATE consulted: --> at apparent risk for aspiration at this time; would rec NPO and discussing short-term non-oral nutrition while his resp status is being optimized - Underwent FEES and patient still requiring NPO, RELATIONSHIP ASSOCIATE recommend follow-up in 2-4 weeks for better idea of dysphagia prognosis Difficult Brown catheter placement requiring CBI at OSH Hypernatremia 2/2 poor PO - Daily RFP,Mg,Phos - History: Hx Bladder/prostate cancer s/p TURBT - Home meds: Finasteride 5 mg, Flomax 0.4 mg - Continue Brown with strict I/O Hx malignant SCC s/p radiotherapy surgical resection, Hx bladder/prostate cancer s/p TURP - Cont. finasteride Code status: FULL CODE Dispo: Failed FEES swallow exam Joe Pitts MD The patient encounter includes all but not limited to; Evaluation of laboratory results, pertinent imaging, and vital signs. Daily updates are discussed with any consulting services and family/medical power of civil litigation attorney as needed. The patient's discharge process begins at admission and daily contactwith the patient's TCC and SW is pertinent in their efficient and safe discharge. * Theresa Saunders Joss, PNEUMATIC DRUM SANDER - 10/30/2024 2:29 PM EST Images from the original note were not included. Physical Therapy Physical Therapy Treatment Patient Name: Bravo Arce Department: [place] [id number] Room: 5061/5061-A Today's Date: 10/30/2024 Time Calculation Start Time: 1300 Stop Time: 1342 Time Calculation (min): 42 min Assessment/Plan PT Assessment PT Assessment Results: Decreased strength, Decreased endurance, Impaired balance, Decreased mobility, Decreased coordination Rehab Prognosis: Good Barriers to Discharge Home: Caregiver assistance, Physical needs Caregiver Assistance: Caregiver assistance needed per identified barriers - however, level of patient's required assistance exceeds assistance available at home Physical Needs: Stair navigation into home limited by function/safety, 24hr mobility assistance needed, High falls risk due to function or environment Evaluation/Treatment Tolerance: Patient tolerated treatment well Medical Staff Made Aware: Yes Strengths: Attitude of self, Support of Caregivers Barriers to Participation: Comorbidities End of Session Communication: Bedside nurse Assessment Comment: PAtient able to tolerated increased trans and lateral steps at bedside this date. Would continue to benefit from MOD intensity PT upon hospital d/c End of Session Patient Position: Bed, 3 rail up, Alarm on PT Plan Inpatient/Swing Bed or Outpatient: Inpatient PT Plan Treatment/Interventions: Bed mobility, Transfer training, Gait training, Stair training, Balance training, Strengthening, Endurance training, Therapeutic exercise, Therapeutic activity, Home exerciseprogram, Positioning PT Plan: Ongoing PT PT Frequency: 4 times per week PT Discharge Recommendations: Moderate intensity level of continued care PT Recommended Transfer Status: Assist x2 PT - OK to Discharge: Yes General Visit Information: PT Visit PT Received On: 10/30/24 Response to Previous Treatment: Patient with no complaints from previous session. General Family/Caregiver Present: Yes Caregiver Feedback: and other family member at bedside and very supportive Prior to Session Communication: Bedside nurse Patient Position Received: Bed, 3 rail up, Alarm on Preferred Learning Style: visual, verbal General Comment: Patient sleeping upon PNEUMATIC [employer]ER arrival. Easily awoken and willing to participate in tx session. Subjective Precautions: Precautions Hearing/Visual Limitations: slightly TE-MOAK Medical Precautions: Cardiac precautions, Fall precautions Precautions Comment: miguel mosquera, tele Date/Time Vitals Session Patient Position Pulse Resp SpO2 BP MAP (mmHg) 10/30/24 1301 During PT Standing 145 -- -- -- -- Vital Signs Comment: HR ranged between 125bpm-145bpm during OOB mobility Objective Pain: Pain Assessment Pain Assessment: 0-10 0-10 (Numeric) Pain Score: 0 - No pain Cognition: Cognition Overall Cognitive Status: Within Functional Limits Orientation Level: Oriented X4 Following Commands: Follows one step commands with repetition Processing Speed: Delayed Coordination: Movements are Fluid and Coordinated: Yes Postural Control: Postural Control Postural Control: Impaired Posture Comment: Fwd head/rounded shoulders Static Sitting Balance Static Sitting-Balance Support: Feet supported, Bilateral upper extremity supported Static Sitting-Level of Assistance: Contact guard Static Sitting-Comment/Number of Minutes: sitting EOB Dynamic Sitting Balance Dynamic Sitting-Balance Support: Bilateral upper extremity supported Dynamic Sitting-Level of Assistance: Minimum assistance Dynamic Sitting-Balance: (rita LE ther ex) Dynamic Sitting-Comments: sitting EOB Static Standing Balance Static Standing-Balance Support: Bilateral upper extremity supported Static Standing-Level of Assistance: (Max A x 1 on first trial and Mod A x2 on trials 2-3) Static Standing-Comment/Number of Minutes: standin at bedside with fww (Tolerated trials for 1min-1:30sec) Activity Tolerance: Activity Tolerance Endurance: Tolerates 30 min exercise with multiple rests Treatments: Therapeutic Exercise Therapeutic Exercise Performed: Yes Therapeutic Exercise Activity 1: seated rita LE: LAQ x 10 Bed Mobility Bed Mobility: Yes Bed Mobility 1 Bed Mobility 1: Supine to sitting Level of Assistance 1: Maximum assistance, Moderate verbal cues Bed Mobility Comments 1: HOB elevated (increased cues for sequencing) Bed Mobility 2 Bed Mobility 2: Sitting to supine Level of Assistance 2: Moderate assistance, +2 Bed Mobility Comments 2: HOB flat Bed Mobility 3 Bed Mobility 3: Scooting (towards EOB) Level of Assistance 3: Moderate assistance (with assist of stuart pad) Ambulation/Gait Training Ambulation/Gait Training Performed: Yes Ambulation/Gait Training 1 Surface 1: Level tile Device 1: Rolling walker Assistance 1: Moderate assistance (x2) Quality of Gait 1: Narrow base of support, Diminished heel strike, Decreased step length, Forward flexed posture, Soft knee(s) Comments/Distance (ft) 1: 3 lateral steps toward HOB Ambulation/Gait Training 2 Surface 2: Level tile Device 2: Rolling walker Assistance 2: Moderate assistance (x2) Quality of Gait 2: Narrow base of support, Diminished heel strike, Decreased step length, Forward flexed posture, Knee(s) buckle, Soft knee(s) (R knee buckling noted) Comments/Distance (ft) 2: 3 lateral steps Transfers Transfer: Yes Transfer 1 Transfer From 1: Sit to, Stand to Transfer to 1: Stand, Sit Technique 1: Sit to stand, Stand to sit Transfer Device 1: Walker Transfer Level of Assistance 1: Maximum assistance, Maximum verbal cues Transfers 2 Transfer From 2: Sit to, Stand to Transfer to 2: Stand, Sit Technique 2: Sit to stand, Stand to sit Transfer Device 2: Walker Transfer Level of Assistance 2: Moderate assistance, +2 Trials/Comments 2: x2 trials Outcome Measures: [facility] Basic Mobility Turning from your back to your side while in a flat bed without using bedrails: A lot Moving from lying on your back to sitting on the side of a flat bed without using bedrails: A lot Moving to and from bed to chair (including a wheelchair): A lot Standing up from a chair using your arms (e.g. wheelchair or bedside chair): A lot To walk in hospital room: Total Climbing 3-5 steps with railing: Total Basic Mobility - Total Score: 10 Education Documentation Precautions, taught by Theresa Coreas PTA at 10/30/2024 2:27 PM. Learner: Significant Other, Patient Readiness: Acceptance Method: Explanation Response: Verbalizes Understanding Comment: Reviewed rehab POC Body Mechanics, taught by Theresa Coreas PTA at 10/30/2024 2:27 PM. Learner: Significant Other, Patient Readiness: Acceptance Method: Explanation Response: Verbalizes Understanding Comment: Reviewed rehab POC Mobility Training, taught by Theresa Coreas PTA at 10/30/2024 2:27 PM. Learner: Significant Other, Patient Readiness: Acceptance Method: Explanation Response: Verbalizes Understanding Comment: Reviewed rehab POC Education Comments No comments found. OP EDUCATION: Encounter Problems Encounter Problems (Active) Balance Pt will demonstrate improved sitting/standing static/dynamic balance activities without LOB for increase in safety prior to DC. (Progressing) Start: 10/25/24 Expected End: 11/08/24 Mobility Pt will tolerate >15 minutes of upright standing activity without seated rest breaks with no changes in vital signs for improved functional mobility. (Progressing) Start: 10/25/24 Expected End: 11/08/24 Pt will ambulate >10ft with appropriate form, Mod A or less, LRAD, and no LOB for safe DC. (Progressing) Start: 10/25/24 Expected End: 11/08/24 PT Transfers Pt will perform bed mobility Min A and use of LRAD to safely DC. (Progressing) Start: 10/25/24 Expected End: 11/08/24 Pt will perform sit<>stand transfers with Mod A and use of LRAD to safely DC. (Progressing) Start: 10/25/24 Expected End: 11/08/24 Cosigned by Joycelyn Ren, PT at 10/31/2024 7:52 AM EST * Shannan Alex, GENE - 10/30/2024 12:03 PM EST Inpatient RELATIONSHIP ASSOCIATE Swallow Treatment Patient Name: Bravo Arce Today's Date: 10/30/2024 Time Calculation Start Time: 1010 Stop Time: 1038 Time Calculation (min): 28 min Recommendations: NPO Frequent oral care, at least x3/day May allow 1/2 tsp water for swallow stimulation and to assist w/ xerostomia/oral care FEES for further assessment of swallow RELATIONSHIP ASSOCIATE Assessment: Swallow reassessment completed given improved respiratory status (now on room air). Presentation w/PO trials slightly improved however still suspect severe dysphagia, particularly given extensive hxof oropharyngeal and esophageal dysphagia. Would recommend continue NPO but allow 1/2 tsps of waterfor swallow stimulation and to reduce build-up of oropharyngeal secretions/bacteria. Also recommendcompletion of fiberoptic endoscopic exam of swallow to assess swallow function/inform plan of care. Plan: RELATIONSHIP ASSOCIATE Frequency: 3x per week Duration: 30 days Discussed POC: Patient, Nursing, Physician RELATIONSHIP ASSOCIATE - OK to Discharge: Yes Goals: Patient/Family will verbalize/demonstrate comprehension of dysphagia education, strategies, recommendations and POC with 80% accuracy independently. Start: 10/26/24, End: 11/23/24 Progressing Subjective Pt upright and alert, oriented. States he feels somewhat better this date as compared to previous. Breathing on room air. Objective Therapeutic Swallow Therapy: Aggressive oral care completed. Pt consumed multiple trials of 1/2 tsp water and x1 full tsp of water. Pt with multiple suspected swallows w/ all trials. X1 instance of delayed cough w/ 1/2 tsps and with full tsp trial pt with immediate coughing, expectorating moderate amount of thick secretions into yankauer; trials ceased givensuspected aspiration. Inpatient Education: Pt and family educated on result and recommendations. Pt and family indicated understanding and agreement w/ plan. * GENE Morales - 10/29/2024 1:22 PM EST Speech-Language Pathology Inpatient RELATIONSHIP ASSOCIATE Swallow Treatment Patient Name: Bravo Arce Today's Date: 10/29/2024 Time Calculation Start Time: 1002 Stop Time: 1023 Time Calculation (min): 21 min Recommendations: NPO Frequent oral care, at least x3/day May allow 1/2 tsp water for swallow stimulation and to assist w/ xerostomia/oral care Updated assessment pending improved/baseline resp status RELATIONSHIP ASSOCIATE Assessment: Swallow reassessment completed given improved respiratory status (now on room air). Presentation w/PO trials slightly improved however still suspect severe dysphagia, particularly given extensive hxof oropharyngeal and esophageal dysphagia. Pt endorsed feeling very weak/tired this date thus wouldrecommend holding on instrumental swallow assessment this date and reassess as clinical status continues to improve. At the present, would recommend continue NPO but allow 1/2 tsps of water for swallow stimulation and to reduce build-up of oropharyngeal secretions/bacteria. Plan: RELATIONSHIP ASSOCIATE Frequency: 3x per week Duration: 30 days Discussed POC: Patient, Nursing, Physician RELATIONSHIP ASSOCIATE - OK to Discharge: Yes Goals: Patient/Family will verbalize/demonstrate comprehension of dysphagia education, strategies, recommendations and POC with 80% accuracy independently. Start: 10/26/24, End: 11/23/24 Progressing Subjective Pt upright and alert in chair. Oriented x4. Breathing on room air. Dobhoff in place. Daughter at bedside. Pt endorsed feeling very tired and weak this date Objective Therapeutic Swallow Therapy: Aggressive oral care completed removing crusted secretions from lingual surface. Pt consumed x4 1/2 tsp water and x1 full tsp of water. Noted mild anterior spillage w/ full tsp, but no spillage with 1/2 tsps. Pt with multiple suspected swallows w/ all trials. No s/s aspiration noted w/ 1/2 tsps but noted immediate coughing, expectorating moderate amount of thick secretions intoyankauer; trials ceased given suspected aspiration. Inpatient Education: Pt and daughter educated on result and recommendations. They both indicated understanding. * Chelsea Bess, PT - 10/29/2024 10:56 AM EST Images from the original note were not included. Physical Therapy Physical Therapy Treatment Patient Name: Bravo Arce Department: [facility] Room: Today's Date: 10/29/2024 Time Calculation Start Time: 906 Stop Time: 934 Time Calculation (min): 28 min Assessment/Plan PT Assessment PT Assessment Results: Decreased strength, Decreased endurance, Impaired balance, Decreased mobility, Decreased coordination Rehab Prognosis: Good Barriers to Discharge Home: Caregiver assistance, Physical needs Caregiver Assistance: Caregiver assistance needed per identified barriers - however, level of patient's required assistance exceeds assistance available at home Physical Needs: Stair navigation into home limited by function/safety, 24hr mobility assistance needed, High falls risk due to function or environment Evaluation/Treatment Tolerance: Patient tolerated treatment well Medical Staff Made Aware: Yes End of Session Communication: Bedside nurse Assessment Comment: Pt performed bed mobility with Mod A x2, and functional transfers with Mod A x 2-Max A x 2. Pt will continue to benefit from skilled PT to improve funcitonal mobility. End of Session Patient Position: Up in chair, Alarm off, not on at start of session PT Plan Inpatient/Swing Bed or Outpatient: Inpatient PT Plan Treatment/Interventions: Bed mobility, Transfer training, Gait training, Stair training, Balance training, Strengthening, Endurance training, Therapeutic exercise, Therapeutic activity, Home exerciseprogram, Positioning PT Plan: Ongoing PT PT Frequency: 4 times per week PT Discharge Recommendations: Moderate intensity level of continued care PT Recommended Transfer Status: Assist x2 PT - OK to Discharge: Yes General Visit Information: PT Visit PT Received On: 10/29/24 Response to Previous Treatment: Patient with no complaints from previous session. General Co-Treatment: OT Co-Treatment Reason: x2 assist AMPAC <10 Prior to Session Communication: Bedside nurse Patient Position Received: Bed, 3 rail up, Alarm off, not on at start of session Preferred Learning Style: auditory, verbal, visual General Comment: Pt awake and willing to participate in PT treatment session; dtr present and supportive throughout session. (Lines: BP cuff, tele, on room air, , brown) Subjective Precautions: Precautions Hearing/Visual Limitations: slightly TE-MOAK Medical Precautions: Cardiac precautions, Fall precautions Precautions Comment: MAP >65 Date/Time Vitals Session Patient Position Pulse Resp SpO2 BP MAP (mmHg) 10/29/24 0900 -- -- 94 25 94 % 115/81 92 10/29/24 0906 Pre OT -- 104 22 95 % 120/93 102 10/29/24 0907 Pre PT Lying 105 -- 95 % 115/81 92 10/29/24 0935 Post OT -- 100 23 96 % 112/68 77 10/29/24 0936 Post PT Sitting 108 -- -- 112/68 77 10/29/24 1000 -- -- 80 24 95 % 118/78 90 Objective Pain: Pain Assessment Pain Assessment: 0-10 0-10 (Numeric) Pain Score: 0 - No pain Cognition: Cognition Overall Cognitive Status: Within Functional Limits Orientation Level: Oriented X4 Following Commands: Follows one step commands without difficulty Coordination: Postural Control: Postural Control Postural Control: Impaired Extremity/Trunk Assessments: Strength RLE R Knee Extension: 3/5 Strength LLE L Knee Extension: 2-/5 (Difficulty initiating LAQ in seated) Activity Tolerance: Activity Tolerance Endurance: Tolerates 10 - 20 min exercise with multiple rests Early Mobility/Exercise Safety Screen: Proceed with mobilization - No exclusion criteria met Activity Tolerance Comments: Vitals stable throughout session Treatments: Therapeutic Exercise Therapeutic Exercise Performed: Yes Therapeutic Exercise Activity 1: Seated LAQ x 10 bilat LE; AAROM for L LE Therapeutic Exercise Activity 2: Seated hip flexion x 5 bilat LE Therapeutic Activity Therapeutic Activity Performed: Yes Therapeutic Activity 1: Pt sat EOB for 5 minutes with Mod A due to posterior trunk lean Therapeutic Activity 2: Pt stood for ~60s with Mod A x 2 in static standing progressed to Max A x 2once cued to attempt backwards step Bed Mobility Bed Mobility: Yes Bed Mobility 1 Bed Mobility 1: Supine to sitting Level of Assistance 1: Moderate assistance, +2 Bed Mobility Comments 1: Mod A x 2 for LE management and trunk elevation to seated Transfers Transfer: Yes Transfer 1 Transfer From 1: Bed to Transfer to 1: Chair with drop arm Technique 1: Stand pivot Transfer Level of Assistance 1: Maximum assistance, +2 Trials/Comments 1: Max A x 2; cues to stand upright; assist to side step to chair Transfers 2 Transfer From 2: Sit to, Stand to Transfer to 2: Stand, Sit Technique 2: Sit to stand, Stand to sit Transfer Level of Assistance 2: Arm in arm assistance, Moderate assistance, +2, Maximum assistance Trials/Comments 2: Mod A x 2 for hip elevation to stand and balance in standing; progressed to Max A x 2 when cued to take backwards step to chair Outcome Measures: [facility] Basic Mobility Turning from your back to your side while in a flat bed without using bedrails: A lot Moving from lying on your back to sitting on the side of a flat bed without using bedrails: A lot Moving to and from bed to chair (including a wheelchair): A lot Standing up from a chair using your arms (e.g. wheelchair or bedside chair): A lot To walk in hospital room: Total Climbing 3-5 steps with railing: Total Basic Mobility - Total Score: 10 FSS-ICU Ambulation: Unable to attempt due to weakness Rolling: Moderate assistance (performs 50 - 74% of task) Sitting: Moderate assistance (performs 50 - 74% of task) Transfer [id number]: Maximal assistance (performs 25% - 49% of task) Transfer [id number]: Maximal assistance (performs 25% - 49% of task) Total Score: 10 Early Mobility/Exercise Safety Screen: Proceed with mobilization - No exclusion criteria met ICU Mobility Scale: Transferring bed to chair [5] Education Documentation Precautions, taught by Chelsea Bess PT at 10/29/2024 10:56 AM. Learner: Patient Readiness: Acceptance Method: Explanation Response: Verbalizes Understanding Body Mechanics, taught by Chelsea Bess PT at 10/29/2024 10:56 AM. Learner: Patient Readiness: Acceptance Method: Explanation Response: Verbalizes Understanding Mobility Training, taught by Chelsea Bess PT at 10/29/2024 10:56 AM. Learner: Patient Readiness: Acceptance Method: Explanation Response: Verbalizes Understanding Education Comments No comments found. Encounter Problems Encounter Problems (Active) Balance Pt will demonstrate improved sitting/standing static/dynamic balance activities without LOB for increase in safety prior to DC. (Progressing) Start: 10/25/24 Expected End: 11/08/24 Mobility Pt will tolerate >15 minutes of upright standing activity without seated rest breaks with no changes in vital signs for improved functional mobility. (Progressing) Start: 10/25/24 Expected End: 11/08/24 Pt will ambulate >10ft with appropriate form, Mod A or less, LRAD, and no LOB for safe DC. (Progressing) Start: 10/25/24 Expected End: 11/08/24 PT Transfers Pt will perform bed mobility Min A and use of LRAD to safely DC. (Progressing) Start: 10/25/24 Expected End: 11/08/24 Pt will perform sit<>stand transfers with Mod A and use of LRAD to safely DC. (Progressing) Start: 10/25/24 Expected End: 11/08/24 CHELSEA BESS PT * Glory Guerra OT - 10/29/2024 10:18 AM EST Occupational Therapy OT Treatment Patient Name: Bravo Arce Department: [facility] Room: A Today's Date: 10/29/2024 Time Calculation Start Time: 905 Stop Time: 1145 Time Calculation (min): 103 min Total time 44 minutes Assessment: OT Assessment: Pt continues to benefit from skilled OT intervention. Pt on RA this date. Pt progressing with transfers and fucntional activity tolerance. Would continue to benefit from skilled OT intervention to address current functional goals Plan: Treatment Interventions: ADL retraining, Functional transfer training, Endurance training, Patient/family training, Compensatory technique education, UE strengthening/ROM OT Frequency: 3 times per week OT Discharge Recommendations: Moderate intensity level of continued care Equipment Recommended upon Discharge: (TBD) OT Recommended Transfer Status: Assist of 2 OT - OK to Discharge: Yes Treatment Interventions: ADL retraining, Functional transfer training, Endurance training, Patient/family training, Compensatory technique education, UE strengthening/ROM Subjective Previous Visit Info: OT Last Visit OT Received On: 10/29/24 General: General Family/Caregiver Present: Yes Caregiver Feedback: daughter present and supportive Co-Treatment: PT Co-Treatment Reason: x2 assist AMPAC <10 Prior to Session Communication: Bedside nurse Patient Position Received: Bed, 3 rail up, Alarm off, not on at start of session Preferred Learning Style: auditory, verbal, visual General Comment: Pt supine in bed pleasant and willing to work with therapy. Dobhoff Precautions: Medical Precautions: Cardiac precautions, Fall precautions Precautions Comment: MAP >65 Date/Time Vitals Session Patient Position Pulse Resp SpO2 BP MAP (mmHg) 10/29/24 1400 -- -- 93 16 94 % 116/75 88 10/29/24 1500 -- -- 93 21 96 % 135/60 81 Pain: Pain Assessment Pain Assessment: 0-10 0-10 (Numeric) Pain Score: 0 - No pain Objective Cognition: Cognition Overall Cognitive Status: Within Functional Limits Orientation Level: Oriented X4 Following Commands: Follows one step commands without difficulty Cognition Comments: pt awake and follows commands, slow to respond and slow speaking pace. Likely 2/2 fatigue Processing Speed: Delayed Coordination: Activities of Daily Living: Grooming Grooming Level of Assistance: Setup Grooming Where Assessed: Chair Functional Standing Tolerance: Bed Mobility/Transfers: Bed Mobility Bed Mobility: Yes Bed Mobility 1 Bed Mobility 1: Supine to sitting Level of Assistance 1: Moderate assistance (x2) Bed Mobility Comments 1: HOB elevated, use of draw sheet Bed Mobility 2 Bed Mobility 2: Sitting to supine Level of Assistance 2: Maximum assistance Bed Mobility Comments 2: HOB flat Transfers Transfer: Yes Transfer 1 Transfer From 1: Stand to, Sit to Transfer to 1: Sit, Stand Technique 1: Sit to stand, Stand to sit Transfer Level of Assistance 1: Arm in arm assistance, Maximum assistance (x2) Trials/Comments 1: initially Mod A x2 for stand, increases to Max Ax2 when cued to step back towardchair Transfers 2 Transfer From 2: Bed to Transfer to 2: Chair with arms Technique 2: Stand pivot Transfer Level of Assistance 2: Arm in arm assistance, Maximum assistance (x2) Trials/Comments 2: use of draw sheet Transfers 3 Transfer From 3: Chair with arms to Transfer to 3: Bed Technique 3: Stand pivot Transfer Level of Assistance 3: Maximum assistance (x2) Therapy/Activity: Therapeutic Exercise Therapeutic Exercise Performed: Yes Therapeutic Exercise Activity 1: Shoulder flexion BUE x3 Therapeutic Activity Therapeutic Activity Performed: Yes Therapeutic Activity 1: Tolerates sitting EOB x5 minutes prior to transfer. Requires Mod A, has posterior lean. Therapeutic Activity 2: Additional STS transfer from chair, tolerates about 60 static stand Outcome Measures:[facility] Daily Activity Putting on and taking off regular lower body clothing: A lot Bathing (including washing, rinsing, drying): A lot Putting on and taking off regular upper body clothing: A lot Toileting, which includes using toilet, bedpan or urinal: A lot Taking care of personal grooming such as brushing teeth: A little Eating Meals: Total Daily Activity - Total Score: 12 , Confusion Assessment Method-ICU (CAM-ICU) Feature 1: Acute Onset or Fluctuating Course: Negative Feature 2: Inattention: Negative Feature 4: Disorganized Thinking: Negative Overall CAM-ICU: Negative , and Early Mobility/Exercise Safety Screen: Proceed with mobilization - No exclusion criteria met ICU Mobility Scale: Transferring bed to chair [5] Education Documentation Body Mechanics, taught by Glory Guerra OT at 10/29/2024 10:15 AM. Learner: Patient Readiness: Acceptance Method: Explanation Response: Verbalizes Understanding Comment: OT POC, UE exercises Precautions, taught by Glory Guerra OT at 10/29/2024 10:15 AM. Learner: Patient Readiness: Acceptance Method: Explanation Response: Verbalizes Understanding Comment: OT POC, UE exercises ADL Training, taught by Glory Guerra OT at 10/29/2024 10:15 AM. Learner: Patient Readiness: Acceptance Method: Explanation Response: Verbalizes Understanding Comment: OT POC, UE exercises Education Comments No comments found. OP EDUCATION: Goals: Encounter Problems Encounter Problems (Active) ADLs Patient with complete lower body dressing with minimal assist level of assistance donning and doffing all LE clothes with PRN adaptive equipment while edge of bed (Progressing) Start: 10/25/24 Expected End: 11/15/24 Patient will complete toileting including hygiene clothing management/hygiene with minimal assist level of assistance. (Progressing) Start: 10/25/24 Expected End: 11/15/24 BALANCE Pt will maintain dynamic standing balance during ADL task with minimal assist level of assistance in order to demonstrate decreased risk of falling and improved postural control. (Progressing) Start: 10/25/24 Expected End: 11/15/24 TRANSFERS Patient will perform bed mobility moderate assist level of assistance and bed rails in order to improve safety and independence with mobility (Progressing) Start: 10/25/24 Expected End: 11/15/24 Patient will complete functional transfer to chair/BSC with least restrictive device with moderate assist level of assistance. 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 He was intubated for airway protection for GCS of 3 and remained intubated from 10/19-10/23, was extubated and subsequently re-intubated on 10/24 after receiving Geodon for medication induced AHRF. He was subsequently transferred to CICU for AHRF needing mechanical ventilation, and in the setting of concern for VT on tele. Patient was interrogated showing no signs of V. tach, and rhythm strips brought by EMS showed wide complexes that correlated with pacer spikes. Patient was extubated on 10/25/2024 and is now down to 4 L via NC. Will try to wean off oxygen today. Patient required low dose levo on admission, off ever since. Nutrition is currently being provided through Dobbhoff as he has chronic dysphagia. Planned to be transferred to general medicine service since yesterday for weaning of oxygen as wellas nutrition recommendations moving forward. 24hr Events: -No acute overnight events -Seen and examined this morning, comfortable in bed -Dobbhoff in place -Sputum cx: staph aureus--> will restart abx (ceftriaxone) -Resuming Flomax today, assess for voiding trial -Increased metop dose from 25BID to 50BID -Lisinopril stopped, plan to start entresto on 10/30 (wash out) C: Code Status/DPOA Info/Goals of Care/ACP Note Full Code DPOA/Contact Number: Smitha () [phone] U: Unprescribing & Pertinent High-Risk Medications Anticoagulation: Yes - SQH Antibiotics: [] N/A - no current planned antimicrobioals [x] Ceftriaxone for PNA P: Pending Tests at the Time of Transfer none A: Active consultants, including Rehab: [x] Subspecialty Consultants: Nutrition [] PT [] OT [] RELATIONSHIP ASSOCIATE [] Wound Care U: Uncertainty Measure/Diagnostic Pause: Working diagnosis at the time of transfer acute hypoxic respiratory failure s/p mechanical ventilation and concern for arrhythmias (? PMVT) S: Summary of Major Problems and To-Dos: #Nutrition recs #Wean off oxygen To-do list prior to transfer: []None E: Exam, including Lines/Drains/Airways & Data Review: General: Not in acute distress, Axox3 Cardiovascular: NO murmurs appreciated Respiratory: breath sounds appreciated bilaterally, no adventitious sounds appreciated, no increased work of breathing on 4L NC GI: Abdomen soft, nondistended, nontender to palpation, bowel sounds present : Brown catheter in place draining domingo/tea colored urine Extremities: No edema appreciated in lower extremities bilaterally, no cyanosis Neuro: A&O X3, no focal deficits, strength and sensation intact bilaterally Skin: Warm and dry, without lesions or rashes Within 30 minutes of the patient physically leaving the floor, a Floor Readiness Note needs to be placed with updated vitals. Cosigned by Jason Soliz DO at 10/28/2024 11:34 AM EST Associated attestation - Jason Soliz DO - 10/28/2024 11:34 AM EST 84M with a PMHx sig for CAD s/p CABG, AF s/p LAAL, SSS s/p ppm, and COPD who was admitted to an outside hospital for syncope and transferred to [facility] for management of acute hypoxic respiratory failure s/p mechanical ventilation and concern for arrhythmias (? PMVT). Echo with EF 40%. DHT remains in place. Plan: -c/w nutritional support -c/w free water given hypernatremia -wean oxygen as tolerated -voiding trial and remove brown when able Ok to transfer to the floor for ongoing management. I saw and evaluated the patient. I personally obtained the bales and critical portions of the historyand physical exam or was physically present for bales and critical portions performed by the resident/fellow. I reviewed the resident/fellow's documentation and discussed the patient with the resident/jimmy morales. I agree with the resident/fellow's medical decision making as documented in the note. * Rubén Lal MD - 10/27/2024 7:55 AM EST Critical Care Daily Progress and transfer note Subjective Patient is a 84 y.o. male admitted on 10/24/2024 9:59 AM Hospital course: Patient is an 84 yo M with PMH significant for COPD, CAD (s/p CABG x3 JUÁREZ - LAD SVG - PDA SVG - OM 2021), A-fib (s/p Left atrial appendage ligation), 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 He was intubated for airway protection for GCS of 3 and remained intubated from 10/19-10/23, was extubated and subsequently re-intubated on 10/24 after receiving Geodon for medication induced AHRF. He was subsequently transferred to CICU for AHRF needing mechanical ventilation, and in the setting of concern for VT on tele. Patient was interrogated showing no signs of V. tach, and rhythm strips brought by EMS showed wide complexes that correlated with pacer spikes. Patient was extubated on 10/25/2024 and is now down to 4 L via NC. He also developed a nondifferentiated shock requiring vasopressors which have a lso since been off for greater than 24 hours. Nutrition is currently being provided through Dobbhoff as he has chronic dysphagia. Request transfer to general medicine service for weaning of oxygen aswell as nutrition recommendations moving forward. Overnight Events: -Patient seen and evaluated this morning, resting comfortably in bed -VSS WNL overnight with exception to tachycardia in the 110s, weaned to 4L via NC -Dobbhoff placed overnight, with tube feeds initiated at 10 cc/HR increasing every hour by 10 cc until goal of 60 cc/HR met. -labs significant for: sodium 148, chloride 115, BUN 33, tbili 1.6, hgb 11.3, otherwise unremarkable -All micro labs/ cultures have NGTD, Zosyn Dc'd this morning -Patient denied all symptomatology pertaining to a 12 point ROS s/p extubation Scheduled Medications: clopidogrel, 75 mg, oral, Daily finasteride, 5 mg, oral, Daily heparin, 5,000 Units, subcutaneous, q8h latanoprost, 1 drop, Both Eyes, Nightly lidocaine, 1 Application, Topical, Once lidocaine, 1 patch, transdermal, q24h [Held by provider] lisinopril, 2.5 mg, oral, Daily metoprolol tartrate, 25 mg, oral, BID oxygen, , inhalation, Continuous - Inhalation oxygen, , inhalation, Continuous - Inhalation oxygen, , inhalation, Continuous - Inhalation pantoprazole, 40 mg, oral, Daily before breakfast Or pantoprazole, 40 mg, intravenous, Daily before breakfast rosuvastatin, 10 mg, oral, Daily [Held by provider] tamsulosin, 0.4 mg, oral, Daily Continuous Medications: dexmedeTOMIDine, 0.1-1.5 mcg/kg/hr, Last Rate: Stopped (10/25/24 1200) norepinephrine, 0.01-1 mcg/kg/min, Last Rate: Stopped (10/25/24 2200) PRN Medications: PRN medications: dextrose, dextrose, glucagon, glucagon, guaiFENesin, ipratropium-albuteroL Objective Vitals: Temp Min: 35.6 C (96.1 F) Max: 36.7 C (98.1 F) Pulse Min: 96 Max: 154 Resp Min: 16 Max: 29 SpO2 Min: 82 % Max: 100 % Physical Exam: General: Not in acute distress, intubated/sedated, cooperative, frail HEENT: Normocephalic, atraumatic, EOMI, moist mucous membranes NC in place, Dobbhoff in place Neck: Neck supple, trachea midline, no evidence of trauma Cardiovascular: IRR, S1 and S2 appreciated, no murmurs rubs gallops appreciated, distal pulses 2+ bilaterally (radial and dorsalis pedis) Respiratory: breath sounds appreciated bilaterally, no adventitious sounds appreciated, no increased work of breathing on 4L NC GI: Abdomen soft, nondistended, nontender to palpation, bowel sounds present : Brown catheter in place draining domingo/tea colored urine Extremities: No edema appreciated in lower extremities bilaterally, no cyanosis Neuro: A&O X3, no focal deficits, strength and sensation intact bilaterally Skin: Warm and dry, without lesions or rashes Assessment/Plan Patient is an 84 yo M with PMH significant for COPD, CAD (s/p CABG x3 JUÁREZ - LAD SVG - PDA SVG - OM 2021), A-fib (s/p Left atrial appendage ligation), 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 Patient was transferred to [facility] CICU for concern for arrhythmia in the setting of [place] PPM while intubated and mechanically ventilated. Patient Extubated on 10/25/24. Neuro: #Syncopal episode with altered mental status #S/p Geodon causing AHRF requiring intubation mechanical ventilation -History: patient was worked up for seizure and stroke at OSH all of the workup was negative including imaging as well as video EEG per paper chart documentation. -Home meds: None -Pain: none -Sedation: none at this time -[facility] ICU Cardiac: #Undifferentiated shock requiring vasopressors #Cardiogenic Syncope? 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 Left ventricular cavity size is mildly [...] vena cava appears mildly dilated, on vent. - Pressors: none for >24hrs Pulmonary: #AHRF # Intubated on Mechanical ventilation s/p Geodon #PNA? -History: COPD, recent intubation 10/19/24 and extubation 10/23/24 -Home meds: none -Extubated on 10/25/24, Now on HFNC at 60L 60% FiO2 Continuous pulse oximetry Currently on 4L via NC, O2 PRN to maintain SpO2 > 88%, wean as tolerated -Imaging: CXR: 10/25/24:1. Worsening bibasilar infiltrates. Differential to include atelectasis/edema/infection. 2. Moderate left small right pleural effusion. 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 -Home meds:, Causing recurrent none - Diet: NPO with Enteral nutrition: isosource 1.5 @60cc/hr goal - Supplementation: None - Prophylaxis: pepcid / protonix - Bowel regimen: none at this time - Last BM: Last BM Date: 10/27/24 - RELATIONSHIP ASSOCIATE consulted: --> at apparent risk for aspiration at this time; would rec NPO and discussing short-term non-oral nutrition while his resp status is being optimized; once breathing closer to baseline can discuss completing an MBSS vs FEES --> Dobbhoff placed 10/26/24 tube feeds initiated Renal/: # Difficult Brown catheter placement requiring CBI at OSH #Hypernatremia 2/2 poor PO - Daily RFP,Mg,Phos - History: Hx Bladder/prostate cancer s/p TURBT - Home meds: Finasteride 5 mg, Flomax 0.4 mg -Continue Brown with strict I/O Net IO Since Admission: 159.47 mL [10/27/24 0755] Results from last 72 hours Lab Units 10/27/24 0133 10/26/24 0302 10/25/24 1914 10/25/24 0153 BUN mg/dL 33* 34* 36* 30* CREATININE mg/dL 0.62 0.72 0.78 0.62 - Expect correction of Na with initiation of tube feeds - Fluids: PRN - Electrolytes: Replete per protocol, goal K>4 Phos >3 Mg >2 Endocrine: -History: None -Home meds: None -sliding scale: none at this time we will add SSI as indicated trending glucose Results from last 7 days Lab Units 10/27/24 0445 10/27/24 0133 10/27/24 0132 10/27/24 0047 10/26/24 2107 10/26/24 0302 10/25/24 0153 10/24/24 2026 10/24/24 1147 POCT GLUCOSE mg/dL 93 -- 126* 71* 83 -- -- 107* 118* GLUCOSE mg/dL -- 142* -- -- -- 86 < > -- -- < > = values in this interval not displayed. -BG < 180 goal Hematology: - Daily CBC, coags -History: Hx malignant SCC s/p radiotherapy surgical resection, Hx bladder/prostate cancer s/p TURP -Home meds: Finasteride Results from last 7 days Lab Units 10/27/24 0133 10/26/24 0302 10/25/24 0153 10/24/24 1027 WBC AUTO x10*3/uL 6.7 5.9 4.8 5.0 HEMOGLOBIN g/dL 11.3* 10.6* 11.3* 10.8* HEMATOCRIT % 33.8* 32.9* 34.8* 31.1* PLATELETS AUTO x10*3/uL 179 147* 119* 112* - DVT Prophylaxis: Heparin Subq Infectious Disease: #PNA ? -History: none -Home meds: none Temp (24hrs), Av.2 C (97.1 F), Min:35.6 C (96.1 F), Max:36.7 C (98.1 F) -Abx: --Vancomycin and Zosyn Initiated on 10/25/24, discontinue vancomycin today as MRSA PCR (-) -Cultures: BCX2 NGTD X1 day MRSA PCR (-) -Strep and Legionella urine antigens negative, sputum culture NGTD --> Antibiotics will be discontinued at this time, will readdress if signs/symptoms arise. Musculoskeletal: -OSMIN - PT to see - OT to see Integumentary: -OSMIN LDA: Arterial Line 10/24/24 Left Radial (Active) Placement Date/Time: 10/24/24 1245 Hand Hygiene Completed: Yes Orientation: Left Location: Radial Site Prep: Chlorhexidine Insertion attempts: 1 Securement Method: Sutured Number of days: 0 Urethral Catheter Coude 18 Fr. (Active) Placement Date/Time: 10/24/24 1600 Hand Hygiene Completed: Yes Catheter Type: Coude Tube Size (Fr.): 18 Fr. Catheter Balloon Size: 10 mL Urine Returned: Yes Number of days: 0 CODE STATUS: Full Code Disposition: Anticipate downgrade to [facility] today. Case discussed with Dr. Soliz. Rubén Lal M.D. Internal Medicine PGY-2 Cosigned by Jason Soliz DO at 10/27/2024 2:27 PM EST Associated attestation - Jason Soliz DO - 10/27/2024 2:27 PM EST 84M with a PMHx sig for CAD s/p CABG, AF s/p LAAL, SSS s/p ppm, and COPD who was admitted to an outside hospital for syncope and transferred to [facility] for management of acute hypoxic respiratory failure s/p mechanical ventilation and concern for arrhythmias (? PMVT). Echo with EF 40%. DHT placed successfully; started on tube feeds. Plan: -c/w nutritional support -wean oxygen as tolerated Ok to transfer to the floor for ongoing management. I saw and evaluated the patient. I personally obtained the bales and critical portions of the historyand physical exam or was physically present for bales and critical portions performed by the resident/fellow. I reviewed the resident/fellow's documentation and discussed the patient with the resident/jimmy morales. I agree with the resident/fellow's medical decision making as documented in the note. * Glory Guerra OT - 10/26/2024 2:32 PM EST Occupational Therapy Therapy Communication Note Patient Name: Bravo Arce Department: [facility] Room: 15/15-A Today's Date: 10/26/2024 Discipline: Occupational Therapy OT Missed Visit: Yes Missed Visit Reason: Missed Visit Reason: Patient placed on medical hold (pt pending NG for meds, pt tachy in 120s-140s) Missed Time: Attempt Comment: * JULIETA Medina - 10/26/2024 11:58 AM EST 10/28 CICU ICU TREATMENT PLAN Patient was transferred to [facility] CICU from [facility] ED for concern for arrhythmia. Extubated 10/25. DC PLAN SNF: [facility] > pending review > no auth needed PAYOR Medicare [place] Rule PT/OT 10/25 = Mod COMPLETED (X) Daily ongoing review of patient via chart and/or (M-F) IDT rounds (X) 10/26 - Made acquaintance of later in day (131) (X) 10/26 - SNF referral built in [facility] database. (X) 10/26 - Met with daughter @ bedside and provided SNF list & obrained FOC #1. (Yoly) NOTE confirmed first choice the [facility] and to take weekend to review list for second/third choicesand possibly even visiting back up choices. Renetta Hdez (AUTOMATION CONTROLS ENGINEER, ICEBOX WORKER) * Shannan Alex, GENE - 10/26/2024 9:54 AM EST Adult RELATIONSHIP ASSOCIATE Clinical Swallow Evaluation Patient Name: Bravo Arce Today's Date: 10/26/2024 Time Calculation Start Time: 930 Stop Time: 950 Time Calculation (min): 20 min Recommendations: NPO Frequent oral care, at least x3/day May allow 1/2 tsp water for swallow stimulation and to assist w/ xerostomia/oral care Updated assessment pending improved/baseline resp status Assessment: Pt with hx extensive oropharyngeal and esophageal dysphagia hx s/p radiation/neck dissection; suspect exacerbated in setting of repeat intubations and ongoing respiratory failure (on Airvo) in addition to ?late effects of radiation given pt's report of perceived worsening of swallow leading up to ho spitalization. Would recommend NPO given apparent risk for aspiration + high risk for respiratory decompensation at this time. Further instrumental testing deferred till respiratory status is optimized. Plan: RELATIONSHIP ASSOCIATE Plan: Skilled RELATIONSHIP ASSOCIATE RELATIONSHIP ASSOCIATE Frequency: 3x per week Duration: 1 month Discussed POC: Patient, Nursing, Physician RELATIONSHIP ASSOCIATE - OK to Discharge: Yes Goals: Patient/Family will verbalize/demonstrate comprehension of dysphagia education, strategies, recommendations and POC with 80% accuracy independently. 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 Who presented to [facility] on 10/19/24 with concerns for stroke versus syncope. Pt transferred to [facility] for management of acute hypoxic respiratory failure s/p mechanical ventilation and concern for arrhythmias (? PMVT). Intubated 10/19-10/23, then again 10/24-10/25- placed on high flow Airvo. Relevant RELATIONSHIP ASSOCIATE Hx: MBSS in 2021 s/p CABG x3 (JUÁREZ-LAD, SVG-PDA, SVG-OM), Mitral Valve Repair, and AMI ligation revealing: Severe Oropharyngeal Dysphagia - Recommend NPO as pt's swallow function deemed not efficient or safe for PO as pt exhibited laryngeal penetration/aspiration on all given consistencies. ? if swallow dysfunction is related to late effects of radiation (unknown baseline status) vs exacerbation of deficits 2/2 hospital acquired myopathy. Would recommend consideration of a short-term means of nutrition/hydration with ongoing dysphagia tx and repeat MBSS in 2-4 weeks vs. discussions with pt/family re: assuming risk of aspiration to consume an oral diet of desire. Pt, RN and MD notified. Per discussion w/ pt/family he then proceeded to complete multiple stents of swallow rehab with SLPand ENT. Eventually completing an MBSS in which he reinitiated regular texture diet with use of strategies (though documentation not on EMR). Per chart review, pt complaining of worsening swallow during ENT visits in beginning and end of 2023. Per discussion w/ pt/family reports extensive dysphagia hx including multiple bouts of swallow rehab since 2021. Just prior to hospitalization pt reportedly on regular diet but avoids tough meats, eating slowly, alternating bites/sips; he endorsed perceived swallow worsening in recent months. Subjective Presentation: Pt received upright and alert. Oriented. Willing to participate. Breathing on 50L/50% Airvo via NC. Family at bedside. Objective Oral/Motor Assessment: Oral Hygiene: Good hygeine, noted xerostomia- pt reports baseline Dentition: Adequate/Natural Oral Motor: Within Functional Limits Vocal Quality: Exceptions to WFL Vocal Quality Impairment: Weak Intelligibility: Intelligible Volitional cough: Perceptually intact, productive spontaneously Clinical Observations: Textures Trialed: Thin Liquid 3oz Water Protocol Utilized: no, deferred 2/2 apparent risk for aspiration Pt consume x3 1/2 tsp trials of room temp water (per his request). Noted appropriate extraction viaspoon without anterior spillage. Noted coughing w/ x3/3 trials, c/f aspiration- expectorating orange tinged secretions into yankauer. Inpatient Education: Pt and family extensively educated on result and recommendations; they indicated understanding. * Tiburcio Lock PharmD - 10/26/2024 7:07 AM EST Vancomycin Dosing by Pharmacy- Cessation of Therapy Consult to pharmacy for vancomycin dosing has been discontinued by the prescriber, pharmacy will sign off at this time. Please call pharmacy if there are further questions or re-enter a consult if vancomycin is resumed. Tiburcio Lock PharmD * Rubén Lal MD - 10/26/2024 6:50 AM EST Critical Care Daily Progress Subjective Patient is a 84 y.o. male admitted on 10/24/2024 9:59 AM Overnight Events: -Patient seen and evaluated this morning, resting comfortably in bed -VSS WNL overnight with exception to tachycardia weaned off of Levo and currently on 60L 49% FiO2 via HFNC -NAEON -labs significant for: sodium 147, chloride 114, BUN 34, tbili 2.4, hgb 10.6, PLT 147 otherwise unremarkable -Patient denied all symptomatology pertaining to a 12 point ROS s/p extubation Scheduled Medications: clopidogrel, 75 mg, oral, Daily finasteride, 5 mg, oral, Daily heparin, 5,000 Units, subcutaneous, q8h latanoprost, 1 drop, Both Eyes, Nightly lidocaine, 1 patch, transdermal, q24h [Held by provider] lisinopril, 2.5 mg, oral, Daily magnesium sulfate, 2 g, intravenous, Once [Held by provider] metoprolol tartrate, 25 mg, oral, BID oxygen, , inhalation, Continuous - Inhalation oxygen, , inhalation, Continuous - Inhalation oxygen, , inhalation, Continuous - Inhalation pantoprazole, 40 mg, oral, Daily before breakfast Or pantoprazole, 40 mg, intravenous, Daily before breakfast piperacillin-tazobactam, 3.375 g, intravenous, q6h potassium chloride, 20 mEq, intravenous, Once rosuvastatin, 10 mg, oral, Daily [Held by provider] tamsulosin, 0.4 mg, oral, Daily vancomycin, 1,000 mg, intravenous, q12h Continuous Medications: dexmedeTOMIDine, 0.1-1.5 mcg/kg/hr, Last Rate: Stopped (10/25/24 1200) norepinephrine, 0.01-1 mcg/kg/min, Last Rate: Stopped (10/25/24 2200) PRN Medications: PRN medications: guaiFENesin, ipratropium-albuteroL, vancomycin Objective Vitals: Temp Min: 36.8 C (98.2 F) Max: 37.6 C (99.7 F) Pulse Min: 78 Max: 138 BP Min: 105/47 Max: 110/48 Resp Min: 17 Max: 37 SpO2 Min: 86 % Max: 100 % Physical Exam: General: Not in acute distress, intubated/sedated, cooperative, frail HEENT: Normocephalic, atraumatic, EOMI, moist mucous membranes HFNC in place Neck: Neck supple, trachea midline, no evidence of trauma Cardiovascular: IRR, S1 and S2 appreciated, no murmurs rubs gallops appreciated, distal pulses 2+ bilaterally (radial and dorsalis pedis) Respiratory: Coarse breath sounds appreciated bilaterally, no adventitious sounds appreciated, no increased work of breathing on HFNC 60L 49%FiO2 GI: Abdomen soft, nondistended, nontender to palpation, bowel sounds present : Brown catheter in place draining domingo/tea colored urine Extremities: No edema appreciated in lower extremities bilaterally, no cyanosis Neuro: A&O X3, no focal deficits, strength and sensation intact bilaterally Skin: Warm and dry, without lesions or rashes Assessment/Plan Patient is an 84 yo M with PMH significant for COPD, CAD (s/p CABG x3 JUÁREZ - LAD SVG - PDA SVG - OM 2021), A-fib (s/p Left atrial appendage ligation), SSS w/ AVB (s/p [place] PPM 2010), MR (s/p repair), TR, BPH, HLD, GERD, HTN, HFrEF (EF 50-55% 08/2022), hx bladder cancer (s/p TURBT), metastaticSCC (s/p excision/parathyroidectomy,neck dissection, and radiation therapy with residual dysphagia.[facility] with concerns for stroke versus syncope. Patient was transferred to [facility] CICU for concern for arrhythmia in the setting of [place] PPM while intubated and mechanically ventilated. Patient Extubated on 10/25/24. Neuro: #Syncopal episode with altered mental status #S/p Geodon causing AHRF requiring intubation mechanical ventilation -History: patient was worked up for seizure and stroke at OSH all of the workup was negative including imaging as well as video EEG per paper chart documentation. -Home meds: None -Pain: none -Sedation: none at this time -[facility] ICU Cardiac: #Undifferentiated shock requiring vasopressors #Cardiogenic Syncope? 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 Left ventricular cavity size is mildly [...] vena cava appears mildly dilated, on vent. - Pressors: Levo weaned off overnight Pulmonary: #AHRF # Intubated on Mechanical ventilation s/p Geodon #PNA? -History: COPD, recent intubation 10/19/24 and extubation 10/23/24 -Home meds: none -Extubated on 10/25/24, Now on HFNC at 60L 60% FiO2 Continuous pulse oximetry Currently on 50L @ 50%FiO@ via HFNC, O2 PRN to maintain SpO2 > 88%, wean as tolerated -Imaging: CXR: 10/25/24:1. Worsening bibasilar infiltrates. Differential to include atelectasis/edema/infection. 2. Moderate left small right pleural effusion. 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 -Home meds:, Causing recurrent none - Diet: NPO until evaluated by RELATIONSHIP ASSOCIATE - Supplementation: None - Prophylaxis: pepcid / protonix - Bowel regimen: none at this time - Last BM: Last BM Date: 10/25/24 - RELATIONSHIP ASSOCIATE consulted: --> at apparent risk for aspiration at this time; would rec NPO and discussing short-term non-oral nutrition while his resp status is being optimized; once breathing closer to baseline can discuss completing an MBSS vs FEES --> Will attempt to place Dophoff today for enteral feeding and meds Renal/: # Difficult Brown catheter placement requiring CBI at OSH - Daily RFP,Mg,Phos - History: Hx Bladder/prostate cancer s/p TURBT - Home meds: Finasteride 5 mg, Flomax 0.4 mg -Continue Brown with strict I/O Net IO Since Admission: 295.89 mL [10/26/24 0650] Results from last 72 hours Lab Units 10/26/2430110/25/24191310/25/2415210/24/24 1027 BUN mg/dL 34* 36* 30* 28* CREATININE mg/dL 0.72 0.78 0.62 0.56 - Fluids: PRN - Electrolytes: Replete per protocol, goal K>4 Phos >3 Mg >2 Endocrine: -History: None -Home meds: None -sliding scale: none at this time we will add SSI as indicated trending glucose Results from last 7 days Lab Units 10/26/2430110/25/24191310/25/24 0153 10/24/24 2026 10/24/24 1147 10/24/24 1027 10/24/24 1013 POCT GLUCOSE mg/dL -- -- -- 107* 118* -- 133* GLUCOSE mg/dL 86 85 < > -- -- < > -- < > = values in this interval not displayed. -BG < 180 goal Hematology: - Daily CBC, coags -History: Hx malignant SCC s/p radiotherapy surgical resection, Hx bladder/prostate cancer s/p TURP -Home meds: Finasteride Results from last 7 days Lab Units 10/26/2430110/25/243 10/24/24 1027 WBC AUTO x10*3/uL 5.9 4.8 5.0 HEMOGLOBIN g/dL 10.6* 11.3* 10.8* HEMATOCRIT % 32.9* 34.8* 31.1* PLATELETS AUTO x10*3/uL 147* 119* 112* - DVT Prophylaxis: Heparin Subq Infectious Disease: #PNA ? -History: none -Home meds: none Temp (24hrs), Av.2 C (98.9 F), Min:36.8 C (98.2 F), Max:37.6 C (99.7 F) -Abx: --Vancomycin and Zosyn Initiated on 10/25/24, discontinue vancomycin today as MRSA PCR (-) -Cultures: BCX2 NGTD X1 day MRSA PCR (-) -CXR concerning for infectious etiology still requiring high O2 Musculoskeletal: -OSMIN - PT to see - OT to see Integumentary: -OSMIN LDA: Arterial Line 10/24/24 Left Radial (Active) Placement Date/Time: 10/24/24 1245 Hand Hygiene Completed: Yes Orientation: Left Location: Radial Site Prep: Chlorhexidine Insertion attempts: 1 Securement Method: Sutured Number of days: 0 Urethral Catheter Coude 18 Fr. (Active) Placement Date/Time: 10/24/24 1600 Hand Hygiene Completed: Yes Catheter Type: Coude Tube Size (Fr.): 18 Fr. Catheter Balloon Size: 10 mL Urine Returned: Yes Number of days: 0 CODE STATUS: Full Code Disposition: To remain in the CICU until medically cleared. Rubén Lal M.D. Internal Medicine PGY-2 Cosigned by Jason Soliz DO at 10/26/2024 1:03 PM EST Associated attestation - Jason Soliz DO - 10/26/2024 1:03 PM EST Brief Attending Summary: 84M with a PMHx sig for CAD s/p CABG, AF s/p LAAL, SSS s/p ppm, and COPD who was admitted to an outside hospital for syncope and transferred to [facility] for management of acute hypoxic respiratory failure s/p mechanical ventilation and concern for arrhythmias (? PMVT). Echo with EF 40%. Extubated yesterday. Remains on Airvo. Plan: -optimize respiratory status -place DHT I have reviewed and evaluated the most recent data and results, personally examined the patient, and formulated the plan of care as presented above. This patient was critically ill and required continued critical care treatment. Teaching and any separately billable procedures are not included in the time calculation. Billing Provider Critical Care Time: 40 minutes * Glory Guerra, OT - 10/25/2024 4:09 PM EST Occupational Therapy Evaluation Patient Name: Bravo Arce Today's Date: 10/25/2024 Room: Time Calculation Start Time: 1201 Stop Time: 1221 Time Calculation (min): 20 min Assessment IP OT Assessment OT Assessment: Pt is an 84yo male presenting with deficits in ADLs, IADLs, tranfers, functional activity tolerance, functional mobility and UE strength. Pt would benefit from skilled OT intervention to return to PLOF safely Prognosis: Good Barriers to Discharge Home: Caregiver assistance, Physical needs Caregiver Assistance: Caregiver assistance needed per identified barriers - however, level of patient's required assistance exceeds assistance available at home Physical Needs: Intermittent mobility assistance needed, Intermittent ADL assistance needed Evaluation/Treatment Tolerance: Patient tolerated treatment well Medical Staff Made Aware: Yes End of Session Communication: Bedside nurse End of Session Patient Position: Up in chair, Alarm off, not on at start of session Plan: Inpatient Plan Treatment Interventions: ADL retraining, Functional transfer training, Endurance training, Patient/family training, Compensatory technique education, UE strengthening/ROM OT Frequency: 3 times per week OT Discharge Recommendations: Moderate intensity level of continued care Equipment Recommended upon Discharge: (TBD) OT Recommended Transfer Status: Assist of 2 OT - OK to Discharge: Yes OT Assessment OT Assessment Results: Decreased ADL status, Decreased upper extremity strength, Decreased endurance, Decreased cognition, Decreased safe judgment during ADL, Decreased functional mobility, DecreasedIADLs Prognosis: Good Evaluation/Treatment Tolerance: Patient tolerated treatment well Medical Staff Made Aware: Yes Strengths: Ability to acquire knowledge, Capable of completing ADLs semi/independent, Insight into problems, Living arrangement secure, Premorbid level of function, Support of Caregivers Barriers to Participation: Comorbidities Subjective Current Problem: 1. Arrhythmia Transthoracic Echo (TTE) Complete Cardiac device check - Inpatient Transthoracic Echo (TTE) Complete Cardiac device check - Inpatient 2. Ventricular pre-excitation with arrhythmia Transthoracic Echo (TTE) Complete Transthoracic Echo (TTE) Complete 3. Shock (Multi) Insert arterial line Arterial Line Insertion General: Reason for Referral: Presented to [facility] ED on 10/19/24 with concerns for stroke versus syncope. Patient was transferred to [facility] CICU for concern for arrhythmia in the setting of [place] PPM while intubated and mechanically ventilated. Extubated this morning 10/25 to Airvo Past Medical History Relevant to Rehab: 84 yo M with PMH significant for COPD, CAD (s/p CABG x3 JUÁREZ - LAD SVG - PDA SVG - OM 2021), A-fib (s/p Left atrial appendage ligation), SSS w/ AVB (s/p [place] PPM 2010), MR (s/p repair), TR, BPH, HLD, GERD, HTN, HFrEF (EF 50-55% 08/2022), hx bladder cancer (s/p TURBT), metastatic SCC (s/p excision/parathyroidectomy,neck dissection, and radiation therapy with residual dysphagia. Co-Treatment: PT Co-Treatment Reason: 84 yo M with PMH significant for COPD, CAD (s/p CABG x3 JUÁREZ - LAD SVG - PDA SVG - OM 2021), A-fib (s/p Left atrial appendage ligation), SSS w/ AVB (s/p St. Ankush PPM 2010), MR (s/p repair), TR, BPH, HLD, GERD, HTN, HFrEF (EF 50-55% 08/2022), hx bladder cancer (s/p TURBT), metastatic SCC (s/p excision/parathyroidectomy,neck dissection, and radiation therapy with residual dysphagia. Prior to Session Communication: Bedside nurse Patient Position Received: Bed, 3 rail up, Alarm off, not on at start of session General Comment: Pt pleasant and willing to work with therapy. (Lines: Airvo @60L/64% FiO2; A line,tele, brown, IV (0.02 epi)) Precautions: Hearing/Visual Limitations: slightly TE-MOAK Medical Precautions: Cardiac precautions, Fall precautions Precautions Comment: MAP >65 Vital Signs: Date/Time Vitals Session Patient Position Pulse Resp SpO2 BP MAP (mmHg) 10/25/24 1500 -- -- 106 17 97 % -- -- Pain: Lines/Tubes/Drains: Arterial Line 10/24/24 Left Radial (Active) Number of days: 1 Urethral Catheter Coude 18 Fr. (Active) Number of days: 1 Objective Cognition: Overall Cognitive Status: Within Functional Limits Orientation Level: Disoriented to time (Not to exact date; reported that it was 2023) Following Commands: Follows one step commands with increased time Home Living: Type of Home: House Lives With: Spouse Home Adaptive Equipment: Walker rolling or standard (in storage; doesnt use) Home Layout: One level Home Access: Stairs to enter with rails Entrance Stairs-Number of Steps: 3 Bathroom Shower/Tub: Tub/shower unit Bathroom Equipment: Grab bars in shower, Shower chair with back Prior Function: Level of Baker: Independent with ADLs and functional transfers ADL Assistance: Independent Homemaking Assistance: Independent Ambulatory Assistance: Independent Vocational: Retired Leisure: Enjoys [employer] cars Prior Function Comments: Drives, no reported falls; community ambulator IADL History: ADL: Eating Assistance: Total (anticipated,airvo) Grooming Assistance: Minimal (anticipated) Bathing Assistance: Moderate (anticipated) UE Dressing Assistance: Minimal (anticipated) LE Dressing Assistance: Maximal (anticipated) Toileting Assistance with Device: Moderate (anticipated) Activity Tolerance: Endurance: Tolerates 10 - 20 min exercise with multiple rests Early Mobility/Exercise Safety Screen: Proceed with mobilization - No exclusion criteria met Activity Tolerance Comments: EOB drop in MAP to 50. Increased time for recovering, ankle pumps. Improved to 65. Levo increased by RN prior to chair transfer Balance: Static Sitting Balance Static Sitting-Level of Assistance: Minimum assistance Bed Mobility/Transfers: Bed Mobility Bed Mobility: Yes Bed Mobility 1 Bed Mobility 1: Supine to sitting Level of Assistance 1: Maximum assistance, +2 Bed Mobility Comments 1: HOB elevated, use of draw sheet and Transfers Transfer: Yes Transfer 1 Transfer From 1: Sit to, Stand to Transfer to 1: Stand, Sit Technique 1: Sit to stand, Stand to sit Transfer Level of Assistance 1: Arm in arm assistance, Maximum assistance, +2 Trials/Comments 1: Max A x2 Blocking on LLE. Use of draw sheet Transfers 2 Transfer From 2: Bed to Transfer to 2: Chair with drop arm Technique 2: Sit pivot Transfer Level of Assistance 2: Maximum assistance, +2 Trials/Comments 2: Max A x2 for pivot to chair, use of draw sheet, utilized drop arm for chair Sensation: Light Touch: No apparent deficits Strength: Perception: Inattention/Neglect: Appears intact Coordination: Movements are Fluid and Coordinated: No Hand Function: Hand Function Gross Grasp: Functional Extremities: RUE RUE : Within Functional Limits, LUE LUE: Within Functional Limits, , and Outcome Measures: [facility] Daily Activity Putting on and taking off regular lower body clothing: A lot Bathing (including washing, rinsing, drying): A lot Putting on and taking off regular upper body clothing: A little Toileting, which includes using toilet, bedpan or urinal: Total Taking care of personal grooming such as brushing teeth: A little Eating Meals: Total Daily Activity - Total Score: 12 Confusion Assessment Method-ICU (CAM-ICU) Feature 1: Acute Onset or Fluctuating Course: Negative Feature 2: Inattention: Negative Overall CAM-ICU: Negative ICU Mobility Screen Early Mobility/Exercise Safety Screen: Proceed with mobilization - No exclusion criteria met ICU Mobility Scale: Transferring bed to chair, Education Documentation Body Mechanics, taught by Glory Guerra OT at 10/25/2024 4:08 PM. Learner: Patient Readiness: Acceptance Method: Explanation Response: Verbalizes Understanding Comment: OT POC, OOB activity Precautions, taught by Glory Guerra OT at 10/25/2024 4:08 PM. Learner: Patient Readiness: Acceptance Method: Explanation Response: Verbalizes Understanding Comment: OT POC, OOB activity ADL Training, taught by Glory Guerra OT at 10/25/2024 4:08 PM. Learner: Patient Readiness: Acceptance Method: Explanation Response: Verbalizes Understanding Comment: OT POC, OOB activity Education Comments No comments found. Goals: Encounter Problems Encounter Problems (Active) ADLs Patient with complete lower body dressing with minimal assist level of assistance donning and doffing all LE clothes with PRN adaptive equipment while edge of bed (Progressing) Start: 10/25/24 Expected End: 11/15/24 Patient will complete toileting including hygiene clothing management/hygiene with minimal assist level of assistance. (Progressing) Start: 10/25/24 Expected End: 11/15/24 BALANCE Pt will maintain dynamic standing balance during ADL task with minimal assist level of assistance in order to demonstrate decreased risk of falling and improved postural control. (Progressing) Start: 10/25/24 Expected End: 11/15/24 TRANSFERS Patient will perform bed mobility moderate assist level of assistance and bed rails in order to improve safety and independence with mobility (Progressing) Start: 10/25/24 Expected End: 11/15/24 Patient will complete functional transfer to chair/BSC with least restrictive device with moderate assist level of assistance. (Progressing) Start: 10/25/24 Expected End: 11/15/24 10/25/24 at 4:09 PM Glory Guerra OT Rehab Office: [phone] * Chelsea Bess PT - 10/25/2024 12:54 PM EST Images from the original note were not included. Physical Therapy Physical Therapy Evaluation Patient Name: Bravo Arce Department: [facility] Room: Today's Date: 10/25/2024 Time Calculation Start Time: 1158 Stop Time: 1228 Time Calculation (min): 30 min Assessment/Plan PT Assessment PT Assessment Results: Decreased strength, Decreased endurance, Impaired balance, Decreased mobility, Decreased coordination Rehab Prognosis: Good Barriers to Discharge Home: Caregiver assistance, Physical needs Caregiver Assistance: Caregiver assistance needed per identified barriers - however, level of patient's required assistance exceeds assistance available at home Physical Needs: Stair navigation into home limited by function/safety, 24hr mobility assistance needed, High falls risk due to function or environment Evaluation/Treatment Tolerance: Patient tolerated treatment well Medical Staff Made Aware: Yes End of Session Communication: Bedside nurse Assessment Comment: Pt performed bed mobility and functional transfers with Max A x 2; required Min-Mod A for EOB sitting balance. Pt will continue to benefit from skilled PT to improve functional mobility. End of Session Patient Position: Up in chair, Alarm off, not on at start of session IP OR SWING BED PT PLAN Inpatient or Swing Bed: Inpatient PT Plan Treatment/Interventions: Bed mobility, Transfer training, Gait training, Balance training, Strengthening, Endurance training, Therapeutic exercise, Therapeutic activity, Home exercise program, Positioning PT Plan: Ongoing PT PT Frequency: 4 times per week PT Discharge Recommendations: Moderate intensity level of continued care PT Recommended Transfer Status: Assist x2 PT - OK to Discharge: Yes Subjective General Visit Information: General Reason for Referral: Presented to [facility] ED on 10/19/24 with concerns for stroke versus syncope. Patient was transferred to [facility] CICU for concern for arrhythmia in the setting of [place] PPM while intubated and mechanically ventilated. Extubated this morning 10/25 to [facility] Past Medical History Relevant to Rehab: 84 yo M with PMH significant for COPD, CAD (s/p CABG x3 JUÁREZ - LAD SVG - PDA SVG - OM 2021), A-fib (s/p Left atrial appendage ligation), SSS w/ AVB (s/p [place] Ank[place] PPM 2010), MR (s/p repair), TR, BPH, HLD, GERD, HTN, HFrEF (EF 50-55% 08/2022), hx bladder cancer (s/p TURBT), metastatic SCC (s/p excision/parathyroidectomy,neck dissection, and radiation therapy with residual dysphagia. Co-Treatment: OT Co-Treatment Reason: 84 yo M with PMH significant for COPD, CAD (s/p CABG x3 JUÁREZ - LAD SVG - PDA SVG - OM 2021), A-fib (s/p Left atrial appendage ligation), SSS w/ AVB (s/p St. Ankush PPM 2010), MR (s/p repair), TR, BPH, HLD, GERD, HTN, HFrEF (EF 50-55% 08/2022), hx bladder cancer (s/p TURBT), metastatic SCC (s/p excision/parathyroidectomy,neck dissection, and radiation therapy with residual dysphagia. Prior to Session Communication: Bedside nurse Patient Position Received: Bed, 3 rail up, Alarm off, not on at start of session Preferred Learning Style: auditory, verbal, visual General Comment: Pt awake and willing to participate in PT evaluation; and dtr present and supportive. (Lines: Airvo @60L/64% FiO2; A line, tele, brown, IV (0.02 epi)) Home Living: Home Living Type of Home: House Lives With: Spouse Home Adaptive Equipment: Walker rolling or standard (in storage; doesnt use) Home Layout: One level Home Access: Stairs to enter with rails Entrance Stairs-Number of Steps: 3 Bathroom Shower/Tub: Tub/shower unit Bathroom Equipment: Grab bars in shower, Shower chair with back Prior Level of Function: Prior Function Per Pt/Caregiver Report Level of Baker: Independent with ADLs and functional transfers ADL Assistance: Independent Homemaking Assistance: Independent Ambulatory Assistance: Independent Vocational: Retired Leisure: Enjoys [employer] cars Prior Function Comments: Drives, no reported falls; community ambulator Precautions: Precautions Hearing/Visual Limitations: slightly TE-MOAK Medical Precautions: Cardiac precautions, Fall precautions Precautions Comment: MAP >65 Date/Time Vitals Session Patient Position Pulse Resp SpO2 BP MAP (mmHg) 10/25/24 1100 -- -- 88 26 86 % -- -- 10/25/24 1158 Pre PT Lying 101 -- 94 % 105/47 62 10/25/24 1200 -- -- 90 23 94 % -- -- 10/25/24 1228 Post PT Sitting 102 -- 98 % 110/48 64 Objective Pain: Pain Assessment Pain Assessment: 0-10 0-10 (Numeric) Pain Score: 0 - No pain Cognition: Cognition Overall Cognitive Status: Within Functional Limits Orientation Level: Disoriented to time (Not to exact date; reported that it was 2023) Following Commands: Follows one step commands with increased time General Assessments: Activity Tolerance Endurance: Tolerates 10 - 20 min exercise with multiple rests Early Mobility/Exercise Safety Screen: Proceed with mobilization - No exclusion criteria met Activity Tolerance Comments: Drop in BP/MAP to Map of 50 upon initial sup>sit; improved to 65 with ankle pumps and seated rest. RN adjusted Levo prior to bed>chair transfer; MAP maintained ~60-65. Pt asymptomatic Sensation Light Touch: No apparent deficits Perception Inattention/Neglect: Appears intact Coordination Movements are Fluid and Coordinated: No Postural Control Postural Control: Impaired Posture Comment: Fwd head/rounded shoulders; pt demonstrated difficulty maintaining head in uprightposition once in seated Static Sitting Balance Static Sitting-Balance Support: Feet supported, Bilateral upper extremity supported Static Sitting-Level of Assistance: Minimum assistance, Moderate assistance Static Sitting-Comment/Number of Minutes: Min-Mod with cues for upright posture Static Standing Balance Static Standing-Balance Support: Bilateral upper extremity supported Static Standing-Level of Assistance: Maximum assistance (x2) Functional Assessments: Bed Mobility Bed Mobility: Yes Bed Mobility 1 Bed Mobility 1: Supine to sitting Level of Assistance 1: Maximum assistance, +2 Bed Mobility Comments 1: Max A x 2 for LE management and trunk elevation to seated; use of draw sheet Transfers Transfer: Yes Transfer 1 Transfer From 1: Sit to, Stand to Transfer to 1: Stand, Sit Technique 1: Sit to stand, Stand to sit Transfer Level of Assistance 1: Arm in arm assistance, Maximum assistance, +2 Trials/Comments 1: Max a x 2 for hip elevation to stand; use of draw sheet Transfers 2 Transfer From 2: Bed to Transfer to 2: Chair with drop arm Technique 2: Sit pivot Transfer Level of Assistance 2: Maximum assistance, +2 Trials/Comments 2: Max A x 2 for hip elevation to clear hips from bed; lateral pivot to chair with draw sheet Extremity/Trunk Assessments: Strength RLE R Knee Extension: 2+/5 (Based on attempted SLR in supine) Strength LLE L Knee Extension: 2+/5 (Based on attempted SLR in supine) Outcome Measures: [facility] Basic Mobility Turning from your back to your side while in a flat bed without using bedrails: A lot Moving from lying on your back to sitting on the side of a flat bed without using bedrails: A lot Moving to and from bed to chair (including a wheelchair): A lot Standing up from a chair using your arms (e.g. wheelchair or bedside chair): Total To walk in hospital room: Total Climbing 3-5 steps with railing: Total Basic Mobility - Total Score: 9 FSS-ICU Ambulation: Unable to attempt due to weakness Rolling: Maximal assistance (performs 25% - 49% of task) Sitting: Moderate assistance (performs 50 - 74% of task) Transfer [id number]: Maximal assistance (performs 25% - 49% of task) Transfer [id number]: Maximal assistance (performs 25% - 49% of task) Total Score: 9 Early Mobility/Exercise Safety Screen: Proceed with mobilization - No exclusion criteria met ICU Mobility Scale: Transferring bed to chair [5] Encounter Problems Encounter Problems (Active) Balance Pt will demonstrate improved sitting/standing static/dynamic balance activities without LOB for increase in safety prior to DC. (Progressing) Start: 10/25/24 Expected End: 11/08/24 Mobility Pt will tolerate >15 minutes of upright standing activity without seated rest breaks with no changes in vital signs for improved functional mobility. (Progressing) Start: 10/25/24 Expected End: 11/08/24 Pt will ambulate >10ft with appropriate form, Mod A or less, LRAD, and no LOB for safe DC. (Progressing) Start: 10/25/24 Expected End: 11/08/24 PT Transfers Pt will perform bed mobility Min A and use of LRAD to safely DC. (Progressing) Start: 10/25/24 Expected End: 11/08/24 Pt will perform sit<>stand transfers with Mod A and use of LRAD to safely DC. (Progressing) Start: 10/25/24 Expected End: 11/08/24 Education Documentation Precautions, taught by Chelsea Bess PT at 10/25/2024 12:53 PM. Learner: Patient Readiness: Acceptance Method: Explanation Response: Verbalizes Understanding Body Mechanics, taught by Chelsea Bess PT at 10/25/2024 12:53 PM. Learner: Patient Readiness: Acceptance Method: Explanation Response: Verbalizes Understanding Mobility Training, taught by Chelsea Bess PT at 10/25/2024 12:53 PM. Learner: Patient Readiness: Acceptance Method: Explanation Response: Verbalizes Understanding Education Comments No comments found. CHELSEA BESS PT * CK Bailey - 10/25/2024 10:48 AM EST 10/25/24 1044 Discharge Planning Living Arrangements Spouse/significant other Support Systems Spouse/significant other;Children Assistance Needed TBD Type of Residence Private residence Who is requesting discharge planning? Provider Home or Post Acute Services (TBD) Does the patient need discharge transport arranged? No Financial Resource Strain How hard is it for you to pay for the very basics like food, housing, medical care, and heating? Not very Housing Stability In the last 12 months, was there a time when you were not able to pay the mortgage or rent on time?N In the past 12 months, how many times have you moved where you were living? 0 At any time in the past 12 months, were you homeless or living in a residential (including now)? N Transportation Needs In the past 12 months, has lack of transportation kept you from medical appointments or from getting medications? no In the past 12 months, has lack of transportation kept you from meetings, work, or from getting things needed for daily living? No - ICU TREATMENT PLAN: Patient was transferred to [facility] CICU from [facility] ED for concern for arrhythmia. Patient is intubated. - Payer: Medicare, [employer]. -Support System: Spouse, children - Planned Disposition: Pending medical outcome and rehab recommendations. - Additional Information: SDOH and Social Work Discharge Planning assessments were completed with patient's Smitha. There were no SDOH issues identified. - Barriers to discharge: None at this time. SW will continue to follow. * Javy Lackey [facility] - 10/25/2024 10:00 AM EST Pharmacy Medication History Review Bravo Arce is a 84 y.o. male admitted for Arrhythmia. Pharmacy reviewed the patient's dupou-uk-kopsqxiva medications and allergies for accuracy. The list below reflects the updated PNEUMATIC DRUM SANDER list. Prior to Admission Medications Prescriptions Last Dose Informant clopidogrel (Plavix) 75 mg tablet Spouse/Significant Other Sig: Take 1 tablet (75 mg) by mouth once daily. finasteride (Proscar) 5 mg tablet Spouse/Significant Other Sig: Take 1 tablet (5 mg) by mouth once daily. latanoprost (Xalatan) 0.005 % ophthalmic solution Spouse/Significant Other Sig: Administer 1 drop into both eyes once daily at bedtime. lisinopril 2.5 mg tablet Spouse/Significant Other Sig: Take 1 tablet (2.5 mg) by mouth once daily. metoprolol tartrate (Lopressor) 25 mg tablet Spouse/Significant Other Sig: Take 1 tablet (25 mg) by mouth 2 times a day. rosuvastatin (Crestor) 10 mg tablet Spouse/Significant Other Sig: Take 1 tablet (10 mg) by mouth once daily. tamsulosin (Flomax) 0.4 mg 24 hr capsule Spouse/Significant Other Sig: Take 1 capsule (0.4 mg) by mouth once daily. Facility-Administered Medications: None The list below reflects the updated allergy list. Please review each documented allergy for additional clarification and justification. Allergies Reviewed by Betsy Gallardo RN on 10/24/2024 Severity Reactions Comments Ciprofloxacin Not Specified Diarrhea, Other, Unknown Penicillins Not Specified GI intolerance, Hives, Unknown, Other As a child Other Reaction(s): Other(See Comments), Unknown As a child Patient accepts M2B at discharge. Pharmacy has been updated to [facility]. Sources used to complete the med history include: [facility] Pharmacy dispense history Patient interview Unable to provide any details Spouse, Good historian Chart Review Care Everywhere 07/11/[address] Martinez Below are additional concerns with the patient's PNEUMATIC DRUM SANDER list. Patient's spouse Smitha was a great historian and knew all medications and dosages well. Medications ADDED: None Medications CHANGED: None Medications REMOVED: None Javy Lackey [facility]. Transitions of Care Pharmacist [facility] Please reach out via Secure Chat for questions, or if no response call [employer] or [employer] * Rubén Lal MD - 10/25/2024 7:07 AM EST Critical Care Daily Progress Subjective Patient is a 84 y.o. male admitted on 10/24/2024 9:59 AM Overnight Events: -Patient seen and evaluated pre and post extubation, resting comfortably in bed -VSS WNL overnight -NAEON -labs significant for: sodium 146, chloride 111, BUN 30, tbili 2.1, hgb 11.3, PLT 119 otherwise unremarkable -Patient denied all symptomatology pertaining to a 12 point ROS s/p extubation -Extubated today Scheduled Medications: clopidogrel, 75 mg, oral, Daily finasteride, 5 mg, oral, Daily heparin (porcine), 5,000 Units, subcutaneous, q8h latanoprost, 1 drop, Both Eyes, Nightly [Held by provider] lisinopril, 2.5 mg, oral, Daily [Held by provider] metoprolol tartrate, 25 mg, oral, BID oxygen, , inhalation, Continuous - Inhalation oxygen, , inhalation, Continuous - Inhalation oxygen, , inhalation, Continuous - Inhalation pantoprazole, 40 mg, oral, Daily before breakfast Or pantoprazole, 40 mg, intravenous, Daily before breakfast rosuvastatin, 10 mg, oral, Daily [Held by provider] tamsulosin, 0.4 mg, oral, Daily Continuous Medications: dexmedeTOMIDine, 0.1-1.5 mcg/kg/hr, Last Rate: 0.6 mcg/kg/hr (10/25/24 0950) norepinephrine, 0.01-1 mcg/kg/min, Last Rate: Stopped (10/25/24 0800) PRN Medications: PRN medications: guaiFENesin, ipratropium-albuteroL Objective Vitals: Temp Min: 36.2 C (97.2 F) Max: 37 C (98.6 F) Pulse Min: 68 Max: 90 BP Min: 112/64 Max: 112/64 Resp Min: 18 Max: 33 SpO2 Min: 86 % Max: 100 % Physical Exam: Physical Exam Physical Exam General: Not in acute distress, intubated/sedated, cooperative, frail HEENT: Normocephalic, atraumatic, EOMI, moist mucous membranes ET tube in place Neck: Neck supple, trachea midline, no evidence of trauma Cardiovascular: IRR, S1 and S2 appreciated, no murmurs rubs gallops appreciated, distal pulses 2+ bilaterally (radial and dorsalis pedis) Respiratory: Coarse breath sounds appreciated bilaterally, no adventitious sounds appreciated, no increased work of breathing on HFNC 60L 60%FiO2 GI: Abdomen soft, nondistended, nontender to palpation, bowel sounds present : Brown catheter in place draining domingo/tea colored urine Extremities: No edema appreciated in lower extremities bilaterally, no cyanosis Neuro: A&O X3, no focal deficits, strength and sensation intact bilaterally Skin: Warm and dry, without lesions or rashes Assessment/Plan Patient is an 84 yo M with PMH significant for COPD, CAD (s/p CABG x3 JUÁREZ - LAD SVG - PDA SVG - OM 2021), A-fib (s/p Left atrial appendage ligation), 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 Patient was transferred to [facility] CICU for concern for arrhythmia in the setting of [place] Ank[place] PPM while intubated and mechanically ventilated. Patient Extubated on 10/25/24. Neuro: #Syncopal episode with altered mental status #S/p Geodon causing AHRF requiring intubation mechanical ventilation -History: patient was worked up for seizure and stroke at OSH all of the workup was negative including imaging as well as video EEG per paper chart documentation. -Home meds: None -GCS: E 1 V 1 M 4 -Pain: none -Sedation: precedex -[facility] ICU Cardiac: #Undifferentiated shock requiring vasopressors #Cardiogenic Syncope? 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 Left ventricular cavity size is mildly [...] vena cava appears mildly dilated, on vent. 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 -Home meds:, Causing recurrent none - Diet: NPO - Supplementation: None - Prophylaxis: pepcid / protonix - Bowel regimen: none at this time - Last BM: Last BM Date: 10/25/24 Renal/: # Difficult Brown catheter placement requiring CBI at OSH - Daily RFP,Mg,Phos - History: Hx Bladder/prostate cancer s/p TURBT - Home meds: Finasteride 5 mg, Flomax 0.4 mg -Continue Brown with strict I/O Net IO Since Admission: -278.02 mL [10/25/24 1237] Results from last 72 hours Lab Units 10/25/24 0153 10/24/24 1027 BUN mg/dL 30* 28* CREATININE mg/dL 0.62 0.56 - Fluids: PRN - Electrolytes: Replete per protocol, goal K>4 Phos >3 Mg >2 Endocrine: -History: None -Home meds: None -sliding scale: none at this time we will add SSI as indicated trending glucose Results from last 7 days Lab Units 10/25/24 0153 10/24/24 2026 10/24/24 1147 10/24/24 1027 10/24/24 1013 POCT GLUCOSE mg/dL -- 107* 118* -- 133* GLUCOSE mg/dL 98 -- -- 125* -- -BG < 180 goal Hematology: - Daily CBC, coags -History: Hx malignant SCC s/p radiotherapy surgical resection, Hx bladder/prostate cancer s/p TURP -Home meds: Finasteride Results from last 7 days Lab Units 10/25/24 0153 10/24/24 1027 WBC AUTO x10*3/uL 4.8 5.0 HEMOGLOBIN g/dL 11.3* 10.8* HEMATOCRIT % 34.8* 31.1* PLATELETS AUTO x10*3/uL 119* 112* - DVT Prophylaxis: Heparin Subq Infectious Disease: -History: none -Home meds: none Temp (24hrs), Av.7 C (98 F), Min:36.2 C (97.2 F), Max:37 C (98.6 F) -Abx: none at this time as no S/S infection -Cultures: BCX2 Musculoskeletal: -OSIMN - PT to see - OT to see Integumentary: -OSMIN LDA: Arterial Line 10/24/24 Left Radial (Active) Placement Date/Time: 10/24/24 1245 Hand Hygiene Completed: Yes Orientation: Left Location: Radial Site Prep: Chlorhexidine Insertion attempts: 1 Securement Method: Sutured Number of days: 0 Urethral Catheter Coude 18 Fr. (Active) Placement Date/Time: 10/24/24 1600 Hand Hygiene Completed: Yes Catheter Type: Coude Tube Size (Fr.): 18 Fr. Catheter Balloon Size: 10 mL Urine Returned: Yes Number of days: 0 CODE STATUS: Full Code Disposition: To remain in the CICU until medically cleared. Rubén Lal M.D. Internal Medicine PGY-2 Cosigned by Jason Soliz DO at 10/25/2024 7:05 PM EST Associated attestation - Jason Soliz DO - 10/25/2024 7:05 PM EST Brief Attending Summary: 84M with a PMHx sig for CAD s/p CABG, AF s/p LAAL, SSS s/p ppm, and COPD who was admitted to an outside hospital for syncope and transferred to [facility] for management of acute hypoxic respiratory failure s/p mechanical ventilation and concern for arrhythmias (? PMVT). Echo with EF 40%. No evidence of arrhythmias on device interrogation. Nothing noted on telemetry thus far. Extubated today; currently on airvo. Plan: -optimize respiratory status -wean norepi as tolerated I have reviewed and evaluated the most recent data and results, personally examined the patient, and formulated the plan of care as presented above. This patient was critically ill and required continued critical care treatment. Teaching and any separately billable procedures are not included in the time calculation. Billing Provider Critical Care Time: 50 minutes documented in this [facility] Work Phone: [phone] Consult note* Jennifer Pritchett RN - 10/31/2024 4:40 PM ESTAssociated Order(s): WOUND OSTOMY NURSING CONSULT Images from the original note were not included. Wound Care Consult Visit Date: 10/31/2024 Patient Name: Bravo Arce Date of : 1940 Reason for Consult: Sacral pressure injury POA Wound History: nonblanchable redness, purple discoloration present on admission to [facility] Pertinent Labs: Albumin Date Value Ref Range Status 10/31/2024 2.5 (L) 3.4 - 5.0 g/dL Final Wound Assessment: Wound 10/24/24 Pressure Injury Sacrum (Active) Wound Image 10/30/24 0101 Site Assessment Non-blanchable erythema;Excoriated 10/31/24 1300 Kendra-Wound Assessment Red 10/31/24 1300 Non-staged Wound Description Not applicable 10/31/24 1300 Pressure Injury Stage DTPI 10/31/24 1300 Shape Irregular 10/31/24 1300 Wound Length (cm) 4 cm 10/31/24 1300 Wound Width (cm) 4 cm 10/31/24 1300 Wound Surface Area (cm^2) 16 cm^2 10/31/24 1300 Wound Depth (cm) 0 cm 10/31/24 1300 Wound Volume (cm^3) 0 cm^3 10/31/24 1300 Margins Attached edges 10/31/24 1300 Drainage Description None 10/31/24 1300 Drainage Amount None 10/31/24 1300 Dressing Silicone border dressing 10/31/24 1300 Dressing Changed Changed 10/31/24 1300 Dressing Status Clean;Dry 10/30/24 2107 Wound Team Summary Assessment: Excoriated nonblanchable redness to sacrum due to limited mobility. Per at bedside, patient was walking with FWW at home with minimal assistance. Due to red, purple discoloration skin injury classified as Deep tissue pressure injury, some areas not fully open to determine depth and proper staging. Will follow while admitted to monitor wound progression. RN and community health nurse staff notified to order waffle overlay and Truview boots for proper offloading. Heels negative for pressure injury but very red and high risk for deterioration. Wound Team Plan: Apply Triad daily and turn Q2 hours while admitted. Please apply Truview boots andwaffle overlay as soon as possible to prevent further wound deterioration. JENNIFER PRITCHETT RN 10/31/2024 4:40 PM * Sonya Pratt RDN, LD - 10/26/2024 2:42 PM ESTAssociated Order(s): IP CONSULT TO NUTRITION SERVICES Nutrition Initial Assessment: Nutrition Assessment Reason for Assessment: Enteral assessment/recommendation (TF)Patient is a 84 y.o. male presenting to [facility] ED on 10/19/24 with concerns for stroke versus syncope. Seizure and stroke workup negative. He was transferred to [facility] CICU for concern for arrhythmia in the setting of [place] Ank[place] PPM while intubated and mechanically ventilated. Patient Extubated on 10/25/24. Currently on airvo. 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 Nutrition History: Energy Intake: Good > 75 % Food and Nutrient History: RELATIONSHIP ASSOCIATE currently recommending NPO d/t Met with pt and family at bedside. provided most of history. He eats well. ~5 small meals per day. He has a great appetite. For breakfast pt usually has a cinnamon roll or other pastry and milk. He says when he goes out to work and will take a quart of milk with him. He will then come inside and have a sandwich for lunch. He then will have a snack later in the day which may be something like chips or peanut butter cracker. Dinner is usually a meat, vegetable, potato, and a dessert like jello or cake. He will then eat a bedtimesnack which may be some cookies and milk. states that he usually eats smaller bites because hehas had difficulty swallowing. On a previous admission he required Dobbhoff for nutrition, so patient and family are familiar with the process. Pt pending Dobbhoff placement. Anthropometrics: Height: 185.4 cm (6' 1 ) Weight: 79.1 kg (174 lb 6.1 oz) BMI (Calculated): 23.01 IBW/kg (Dietitian Calculated): 83.6 kg Percent of IBW: 95 % Weight History: Wt Readings from Last 10 Encounters: 10/26/24 79.1 kg (174 lb 6.1 oz) 10/24/24 75 kg (165 lb 5.5 oz) 05/22/24 71.7 kg (158 lb) 11/22/23 73 kg (161 lb) 11/08/23 71.7 kg (158 lb) 08/23/23 71.7 kg (158 lb 1.6 oz) 02/15/23 73.2 kg (161 lb 5 oz) 08/24/22 73.9 kg (163 lb) 07/09/22 73.9 kg (163 lb) 05/04/22 75.9 kg (167 lb 5 oz) Weight Change %: Weight History / % Weight Change: says weight has been around 157-160lbs. Current weight is up~16lbs (7.4kg) from pt's usual weight Significant Weight Gain: Fluid related Nutrition Focused Physical Exam Findings: Subcutaneous Fat Loss: Orbital Fat Pads: Mild-Moderate (slight dark circles and slight hollowing) Buccal Fat Pads: Mild-Moderate (flat cheeks, minimal bounce) Triceps: Defer Muscle Wasting: Temporalis: Mild-Moderate (slight depression) Pectoralis (Clavicular Region): Mild-Moderate (some protrusion of clavicle) Deltoid/Trapezius: Well nourished (rounded appearance at arm, shoulder, neck) Quadriceps: Well nourished (well developed, well rounded) Gastrocnemius: Defer Edema: Edema: (non-pitting) Edema Location: generalized Physical Findings: Skin: (DTI to sacrum) Nutrition Significant Labs: CBC Trend: Results from last 7 days Lab Units 10/26/24 0302 10/25/24 0153 10/24/24 1027 WBC AUTO x10*3/uL 5.9 4.8 5.0 RBC AUTO x10*6/uL 3.50* 3.77* 3.56* HEMOGLOBIN g/dL 10.6* 11.3* 10.8* HEMATOCRIT % 32.9* 34.8* 31.1* MCV fL 94 92 87 PLATELETS AUTO x10*3/uL 147* 119* 112* , BMP Trend: Results from last 7 days Lab Units 10/26/2430110/25/24191310/25/2415210/24/24 1027 GLUCOSE mg/dL 86 85 98 125* CALCIUM mg/dL 7.7* 7.7* 7.8* 7.9* SODIUM mmol/L 147* 147* 146* 143 POTASSIUM mmol/L 3.7 3.3* 4.1 3.6 CO2 mmol/L 21 21 22 24 CHLORIDE mmol/L 114* 115* 114* 111* BUN mg/dL 34* 36* 30* 28* CREATININE mg/dL 0.72 0.78 0.62 0.56 , Renal Lab Trend: Results from last 7 days Lab Units 10/26/2430110/25/24191310/25/2415210/24/24 1027 10/24/24 1027 POTASSIUM mmol/L 3.7 3.3* 4.1 -- 3.6 PHOSPHORUS mg/dL 3.4 3.2 3.3 < > -- SODIUM mmol/L 147* 147* 146* -- 143 MAGNESIUM mg/dL 2.06 1.98 1.82 -- 2.07 EGFR mL/min/1.73m*2 >90 89 >90 -- >90 BUN mg/dL 34* 36* 30* -- 28* CREATININE mg/dL 0.72 0.78 0.62 -- 0.56 < > = values in this interval not displayed. , Vit D: No results found for: VITD25 , Vit B12: No results found for: [id number] Nutrition Specific Medications: Scheduled medications clopidogrel, 75 mg, oral, Daily finasteride, 5 mg, oral, Daily heparin, 5,000 Units, subcutaneous, q8h latanoprost, 1 drop, Both Eyes, Nightly lidocaine, 1 Application, Topical, Once lidocaine, 1 patch, transdermal, q24h [Held by provider] lisinopril, 2.5 mg, oral, Daily metoprolol tartrate, , , metoprolol, 5 mg, intravenous, Once metoprolol tartrate, 25 mg, oral, BID oxygen, , inhalation, Continuous - Inhalation oxygen, , inhalation, Continuous - Inhalation oxygen, , inhalation, Continuous - Inhalation pantoprazole, 40 mg, oral, Daily before breakfast Or pantoprazole, 40 mg, intravenous, Daily before breakfast piperacillin-tazobactam, 3.375 g, intravenous, q6h rosuvastatin, 10 mg, oral, Daily [Held by provider] tamsulosin, 0.4 mg, oral, Daily Continuous medications dexmedeTOMIDine, 0.1-1.5 mcg/kg/hr, Last Rate: Stopped (10/25/24 1200) norepinephrine, 0.01-1 mcg/kg/min, Last Rate: Stopped (10/25/24 2200) PRN medications PRN medications: guaiFENesin, ipratropium-albuteroL, metoprolol tartrate I/O: Last BM Date: 10/25/24; Stool Appearance: Loose (10/25/24 1700) Dietary Orders (From admission, onward) Start Ordered 10/24/24 1201 May Not Participate in Room Service ( ROOM SERVICE MAY NOT PARTICIPATE) Once Question: . Answer: Yes 10/24/24 1200 10/24/24 1010 NPO Diet; Effective now Diet effective now 10/24/24 1012 Estimated Needs: Total Energy Estimated Needs in 24 hours (kCal): (6537-2370) Method for Estimating Needs: 25-30kcal/kg CBW Total Protein Estimated Needs in 24 Hours (g): 95 g Method for Estimating 24 Hour Protein Needs: 1.2g/kg CBW Total Fluid Estimated Needs in 24 Hours (mL): (per MD/team) Nutrition Diagnosis Malnutrition Diagnosis Patient has Malnutrition Diagnosis: No (assume fat+ muscle losses r/t advanced age) Nutrition Diagnosis Patient has Nutrition Diagnosis: Yes Diagnosis Status (1): New Nutrition Diagnosis 1: Swallowing difficulty Related to (1): late effects of radiation As Evidenced by (1): RELATIONSHIP ASSOCIATE recomendation of NPO Nutrition Interventions/Recommendations Nutrition prescription for enteral nutrition Nutrition Recommendations: Individualized Nutrition Prescription Provided for: Isosource 1.5 @ 60ml/hr goal to provide 2160kcal, 98gm protein, and 1093ml free water Start @ 10ml/hr and increase by [id number] until goal is met. FWF per MD/team discretion *post-pyloric tube placement recommended d/t pt's high risk of aspiration Nutrition Interventions/Goals: Interventions: Enteral intake Enteral Intake: Insert enteral feeding tube, Management of delivery rate of enteral nutrition Goal: TF to meet > 75% estimated needs Nutrition Monitoring and Evaluation Food/Nutrient Related History Monitoring Monitoring and Evaluation Plan: Enteral and parenteral nutrition intake determination Enteral and Parenteral Nutrition Intake Determination: Enteral nutrition intake - To meet > 75% estimated energy needs, Enteral nutrition intake - Tolerate TF at goal rate Anthropometric Measurements Monitoring and Evaluation Plan: Body weight Body Weight: Body weight - Maintain stable weight Biochemical Data, Medical Tests and Procedures Monitoring and Evaluation Plan: Electrolyte/renal panel, Glucose/endocrine profile Electrolyte and Renal Panel: Electrolytes within normal limits Glucose/Endocrine Profile: Glucose within normal limits (80-180 mg/dL) Time Spent (min): 60 minutes * Sulaiman Bautista PharmD - 10/25/2024 2:38 PM ESTAssociated Order(s): PHARMACY TO DOSE VANCO Vancomycin Dosing by Pharmacy- INITIAL Bravo Arce is a 84 y.o. year old male who Pharmacy has been consulted for vancomycin dosing forpneumonia. Based on the patient's indication and renal status this patient will be dosed based on agoal AUC of 400-600. Renal function is currently stable. Visit Vitals BP (!) 110/48 Pulse 93 Temp 36.8 C (98.2 F) (Temporal) Resp 19 Lab Results Component Value Date CREATININE 0.62 10/25/2024 CREATININE 0.56 10/24/2024 CREATININE 0.68 06/14/2022 CREATININE 0.73 06/13/2022 CREATININE 0.71 06/12/2022 CREATININE 0.69 06/11/2022 Patient weight is as follows: Vitals: 10/25/24 0500 Weight: 79 kg (174 lb 2.6 oz) Cultures: No results found for the encounter in last 14 days. I/O last 3 completed shifts: In: 313.2 (4 mL/kg) [I.V.:313.2 (4 mL/kg)] Out: 465 (5.9 mL/kg) [Urine:465 (0.2 mL/kg/hr)] Weight: 79 kg I/O during current shift: I/O this shift: In: 144.2 [I.V.:144.2] Out: 205 [Urine:205] Temp (24hrs), Av.7 C (98 F), Min:36.2 C (97.2 F), Max:37 C (98.6 F) Assessment/Plan Patient will be given a loading dose of 1750 mg. Will initiate vancomycin maintenance, 1000 mg every 12 hours. This dosing regimen is predicted by [employer] to result in the following pharmacokinetic parameters: Loading dose: 1750 mg at 15:30 10/25/2024. Regimen: 1000 mg IV every 12 hours. Start time: 23:30 on 10/25/2024 Exposure target: AUC24 (range)400-600 mg/L.hr [id number]: 464 mg/L.hr AUC24,ss: 502 mg/L.hr Probability of AUC24 > 400: 73 % Ctrough,ss: 15.7 mg/L Probability of Ctrough,ss > 20: 31 % Follow-up level will be ordered on 10/27 at 1000 unless clinically indicated sooner. Will continue to monitor renal function daily while on vancomycin and order serum creatinine at least every 48 hours if not already ordered. Follow for continued vancomycin needs, clinical response, and signs/symptoms of toxicity. SULAIMAN BAUTISTA PharmD documented in this [facility] Work Phone: [phone]) 797-862302-04-2025 Procedure note* Shannan Alex, GENE - 10/30/2024 2:50 PM ESTProcedure(s): RELATIONSHIP ASSOCIATE ENDOSCOPIC EVAL,SWALLOW,CINE/VIDEO Speech-Language Pathology RELATIONSHIP ASSOCIATE Adult FEES Evaluation Patient Name: Bravo Arce Today's Date: 10/30/2024 Time Calculation Start Time: 1301 Stop Time: 1358 Time Calculation (min): 57 min Recommendations: NPO, continue non-oral nutrition/hydration Frequent oral care, at least x3/day May allow 1/2 tsp water for swallow stimulation and to assist w/ xerostomia/oral care Ongoing swallow therapy, repeat assessment in 2-4 weeks pending overall clinical improvement Assessment/Impression: Pt presenting with severe oropharyngeal dysphagia, an acute on chronic exacerbation in setting of current hospitalizations (debility/deconditioning, multiple intubations, prolonged NPO status) with baseline dysphagia s/p neck radiation. Pt w/ aspiration of all liquid textures 2/2 poor airway protection and reduced bolus efficiency; additionally presence of copious thick/stringy secretions mixed w/ pharyngeal residues w/ liquids which were then subsequently aspirated. As a result pt at high risk for aspiration and poor volume of intake regardless of diet texture/strategies. Additionally, given current clinical status pt at risk for aspiration related decompensation. Pt is a good candidate for therapy given intact cognitive status and motivated personality however given etiology of baseline dysfunction prognosis for improvement is deemed fair. Recommend repeat testing in 2-4 weeks pending improvement in overall mobility and clinical status as well as improvement in management of pharyngeal secretions. Plan: Inpatient/Swing Bed or Outpatient: Inpatient RELATIONSHIP ASSOCIATE Plan: Skilled RELATIONSHIP ASSOCIATE RELATIONSHIP ASSOCIATE Frequency: 3x per week Duration: 30 days RELATIONSHIP ASSOCIATE Discharge Recommendations: Continue skilled RELATIONSHIP ASSOCIATE services at the next level of care Discussed POC: Patient, Nursing, Physician RELATIONSHIP ASSOCIATE - OK to Discharge: Yes Goals: Patient/Family will verbalize/demonstrate comprehension of dysphagia education, strategies, recommendations and POC with 80% accuracy independently. Start: 10/26/24, End: 11/23/24 Progressing Patient will complete respiratory muscle strength training (RMST) adhering to progressive overload protocol with cues as needed for accurate completion. Start: 10/30/24, End: 11/23/24 Pt will complete CTAR x2 sets of x10 reps of 10 seconds holds; independent of cues, to improve hyolaryngeal elevation and UES opening; impacting airway protection and pharyngeal clearance during the swallow. Start: 10/30/24, End: 11/23/24 Pt will complete x30 trials of effortful swallows with cues as needed for accurate completion. Start: 10/30/24, End: 11/23/24 Subjective History and Physical: Patient is an 84 yo M with PMH significant for COPD, CAD (s/p CABG x3 JUÁREZ - LAD SVG - PDA SVG -OM 2021), A-fib (s/p Left atrial appendage ligation), SSS w/ AVB (s/p [facility] PPM 2010), MR (s/p repair), TR, BPH, HLD, GERD, HTN, HFrEF (EF 50-55% 08/2022), hx bladder cancer (s/p TURBT), metastatic SCC (s/p excision/parathyroidectomy,neck dissection, and radiation therapy with residual dysphagia. Who presented to [facility] on 10/19/24 with concerns for stroke versus syncope. Pt transferred to [facility] for management of acute hypoxic respiratory failure s/p mechanical ventilation and concern for arrhythmias (? PMVT). Intubated 10/19-10/23, then again 10/24-10/25- placed on high flow Airvo. Relevant RELATIONSHIP ASSOCIATE Hx: MBSS in 2021 s/p CABG x3 (JUÁREZ-LAD, SVG-PDA, SVG-OM), Mitral Valve Repair, and AMI ligation revealing: Severe Oropharyngeal Dysphagia - Recommend NPO as pt's swallow function deemed not efficient or safe for PO as pt exhibited laryngeal penetration/aspiration on all given consistencies. ? if swallow dysfunction is related to late effects of radiation (unknown baseline status) vs exacerbation of deficits 2/2 hospital acquired myopathy. Would recommend consideration of a short-term means of nutrition/hydration with ongoing dysphagia tx and repeat MBSS in 2-4 weeks vs. discussions with pt/family re: assuming risk of aspiration to consume an oral diet of desire. Pt, RN and MD notified. Per discussion w/ pt/family he then proceeded to complete multiple stents of swallow rehab with SLPand ENT. Eventually completing an MBSS in which he reinitiated regular texture diet with use of strategies (though documentation not on EMR). Per chart review, pt complaining of worsening swallow during ENT visits in beginning and end of 2023. Per discussion w/ pt/family reports extensive dysphagia hx including multiple bouts of swallow rehab since 2021. Just prior to hospitalization pt reportedly on regular diet but avoids tough meats, eating slowly, alternating bites/sips; he endorsed perceived swallow worsening in recent months. Subjective Presentation: Pt received upright and alert. Oriented. Willing to participate. Breathing on room air. Family at bedside. Objective Oral/Motor Assessment: Oral Hygiene: Good hygeine, noted xerostomia- pt reports baseline Dentition: Adequate/Natural, no dentition on bottom Oral Motor: Within Functional Limits Vocal Quality: Exceptions to WFL Vocal Quality Impairment: Weak Intelligibility: Intelligible FEES: FEES Verbal Consent: Fiberoptic endoscopic evaluation of the swallow exam was completed once informed verbal consent was obtained - Yes Scope Passed: Through left nare Following Application Of: (lubrication jelly) Patient Tolerated Procedure: Well FEES Anatomy: Structural Appearances Base of Tongue: xerostomia Vocal Fold Appearance: Noted erythema on posterior portion of vocal cords bilaterally) Laryngeal Function: Adduction: Full Abduction: Full Arytenoid Movement: Symmetrical Vocal Quality: Weak Secretion Management Amounts/Color/Texture: Severe amount of thick stringy secretions diffusely throughout pharynx. Numerous cued coughs/hockers and tsps water reduced to moderate as pt able to orally expectorate. Consistencies trialed: Thin liquid via tsp, nectar (mildly) thick liquids via tsp, honey (moderately) thick liquids via tsp. Oral Phase: Volitional Hold With Thin Liquid Bolus: Noted premature spill of min amount x1 w/ initial tsp water, otherwise oral hold was intact Anterior Oral Spillage (Lip Seal): No Mastication: not assessed Piecemeal deglutition w/ thickened liquids Pharyngeal Phase: Pt with aspiration of thin liquids and penetration to the vocal cords w/ mildly thick liquids during the swallow. Suspect reduced pharyngeal contraction given diffuse residues throughout pharynx; mild residues w/ thin tsp, mod residues w/ mildly thick tsps, and mod-severe residues w/ moderately thick tsps despite pt independently initiating multiple swallows per bolus. Residues observed to mix w/secretions which were subsequently deeply penetrated and aspirated after the swallow. Pt w/ cough response to aspiration, however unable to fully eject w/ subsequent spillage of residues back into the laryngeal vestibule after coughing. Effortful swallows and chin tuck trialed but deemed ineffective to significantly reduce residues/improve airway protection. Esophageal Phase: No retrograde flow observed but ?reduced UES opening given pt's hx and given the amount of residue observed in post cricoid space following the swallow. Swallow Therapy: Time in: 1340 Time out: 1358 Time calculation: 18 minutes Education provided in room following completion of FEES regarding results of exam including dysphagia pathophysiology, likely etiology, plan of care, prognosis, diet recommendations. Images were reviewed w/ pt and family to increase comprehension of information. Pt/family asked appropriate follow-up questions and indicated understanding. Pt indicated he wishes to follow safest recommendations and proceed w/ swallow therapy as he is hopeful given that he has successfully rehabilitated his swallow function through therapy in the past. * Rubén Lal MD - 10/24/2024 1:13 PM ESTAssociated Order(s): Arterial Line Insertion Post-Procedure Diagnose(s): Shock (Multi) Arterial Line Insertion Date/Time: 10/24/2024 1:13 PM Performed by: Rubén Lal MD Authorized by: Jason Soliz DO Consent: Consent obtained: Verbal and written Consent given by: Guardian and healthcare agent Risks, benefits, and alternatives were discussed: yes Risks discussed: Bleeding, ischemia, repeat procedure, infection and pain [place] protocol: Procedure explained and questions answered to patient or proxy's satisfaction: yes Relevant documents present and verified: yes Test results available: yes Imaging studies available: yes Required blood products, implants, devices, and special equipment available: yes Site/side marked: yes Immediately prior to procedure, a time out was called: yes Patient identity confirmed: Hospital-assigned identification number, arm band and anonymous protocol, patient vented/unresponsive Indications: Indications: hemodynamic monitoring and multiple ABGs Pre-procedure details: Skin preparation: Chlorhexidine Sedation: Sedation type: Moderate sedation Anesthesia: Anesthesia method: Local infiltration Local anesthetic: Lidocaine 1% w/o epi Procedure details: Location: L radial Placement technique: Ultrasound guided Number of attempts: 1 Transducer: waveform confirmed Post-procedure details: Post-procedure: Sterile dressing applied and sutured Procedure completion: Tolerated well, no immediate complications Comments: Procedure: Arterial Line Placement Physician: Rubén Lal M.D. Indication: Hemodynamic Monitoring Anesthesia: Lidocaine 1% A time-out was completed verifying correct patient, procedure, site, positioning. Ezekiel s test was performed to ensure adequate perfusion. Patient's left wrist was prepped and draped in the usual sterile fashion. Ultrasound guidance was used to aid needle placement. A transducer needle was introduced into the left radial artery yielding pulsatile flow, subsequently guidewire was advanced, needle removed, catheter was threaded, over the wire, and wire was removed with appropriate blood return. Good waveform was observed. The patient tolerated the procedure well. director of planning Dr. Payne was present for the entirety of the procedure. EBL: 5cc Complications: None Rubén Lal M.D. Internal Medicine PGY-2 Cosigned by Jason Soliz DO at 10/24/2024 5:11 PM EST Associated attestation - Jason Soliz DO - 10/24/2024 5:11 PM EST I was not present for the procedure. [facility] Work Phone: 1(587) 452-850501-29-2025 Evaluation + Plan noteExtracted from: Title:Discharge Note Author:Grace PATTERSON MD D ate:10/24/24 Discharge To, Anticipated II - Acute Care Facility Discharged to - Other: [facility] Prescriptions clopidogrel 75 mg Tab, 75 mg= 1 tab(s), Oral, Daily, 1 refills Flomax 0.4 mg Cap, 0.4 mg= 1 cap(s), Oral, Daily, 3 refills lisinopril 2.5 mg Tab, 2.5 mg= 1 tab(s), Oral, Daily, 5 refills Lopressor 25 mg oral tablet, 25 mg= 1 tab(s), Oral, BID, 3 refills rosuvastatin 10 mg Tab, 10 mg= 1 tab(s), Oral, Daily, 3 refills Home finasteride 5 mg Tab, 5 mg= 1 tab(s), Oral, Daily latanoprost Opth 0.005% Jo Ann, 1 drop(s), Eye-Both, Once a day (at bedtime) With When Contact Information Porfirio MAHONEY, YAHIR Mir Within 2 to 4 weeks [place] [address] [place] [address]- Additional Instructions: Extracted from: Title:APSO Note Author:Grace PATTERSON MD Date: 84-year-old male with histor y of atrial fibrillation status post left atrial appendage ligation May 2022 on Plavix, coronary artery disease status post CABG x 3 vessels, severe mitral regurgitation status post repair, sick sinus syndrome status post pacemaker placement, bladder cancer status posttreatment in remission, BPH with LUTS, GERD presented with unresponsiveness followed by seizure like activity and was admitted with unresponsiveness, acute respiratory failure requiring endotracheal intubation and mechanical ventilator, hematuria. He was successfully extubated on 10/22/2024. 1. Unresponsiveness (R41.89: Other symptoms and signs involving cognitive functions and awareness) Etiology unknown. May be secondary to transient cardiac arrhythmia versus seizure. Seen by neurologist. Unable to perform MRI of the brain secondary to pacemaker. EEG nonrevealing. Resolved. Patient is fully awake. Ordered: [facility] Hospital Care/Day Moderate 35 Minutes [id number] 2. Acute respiratory failure (J96.00: Acute respiratory failure, unspecified whether with hypoxia or hypercapnia) Status post intubation and on mechanical ventilator status post extubated on 10/22/2024. Doing well on nasal cannula oxygen. Ordered: [facility] Hospital Care/Day Moderate 35 Minutes [id number] 3. Endotracheally intubated (Z97.8: Presence of other specified devices) He was successfully extubated on 10/22/2024. Ordered: [facility] Hospital Care/Day Moderate 35 Minutes [id number] 4. Seizure-like activity (R56.9: Unspecified convulsions) May be secondary to post syncopal seizure. Seen by neurologist no antiepileptics needed. Ordered: [facility] Hospital Care/Day Moderate 35 Minutes [id number] 5. Hypotension (I95.9: Hypotension, unspecified) Secondary to IV sedation. Was transiently treated with IV Levophed and IV fluid. The patient is off Levophed. Resolved. Ordered: [facility] Hospital Care/Day Moderate 35 Minutes [id number] 6. Atrial fibrillation (I48.91: Unspecified atrial fibrillation) Chronic atrial fibrillation status post pacemaker placement. Eliquis temporarily on hold with recent hematuria. Will restart once patient is able to tolerate orally. 7. Pacemaker (Z95.0: Presence of cardiac pacemaker) Secondary to sick sinus syndrome. Status post pacemaker check normal. 8. Thrombocytopenia (D69.6: Thrombocytopenia, unspecified) Chronic. 9. Hematuria (R31.9: Hematuria, unspecified) Gross hematuria present on admission. Was treated with continuous bladder irrigation. Resolved. Was seen by urologist. Will discontinue Brown catheter. Disposition: Pending speech evaluation and resumption of diet and oral medications. Physical therapy and Occupational Therapy evaluation for discharge planning. I ordered sputum culture. I discussed the diagnosis and plan of care with the patient at the bedside. Moderate level of MDM based on addressing above issues. This documentation was transcribed using voice recognition software. Several attempts were made to ensure accuracy. However inadvertent computerized kindergarten classroom teacher errors may be present. Grace Patterson. Hospitalist. Orders: Add on Test Incentive Spirometry Procalcitonin Restraint Initiate Non-Violent / Fyu-Aztp-Mrjsaekltjf Behavior Restraint Monitoring Non-Violent / Non-Self- Destructive Behavior Restraint Progress Note Speech Language Pathology Swallow Eval; Evaluate Pt, Develop a Plan of Care & Implement Plan Sputum Culture Sputum Culture Extracted from: Title:APSO Note Author:GLENDY MAHONEY, Judyfo Date: 84-year-old male with histor y of atrial fibrillation status post left atrial appendage ligation May 2022 on Plavix, coronary artery disease status post CABG x 3 vessels, severe mitral regurgitation status post repair, sick sinus syndrome status post pacemaker placement, bladder cancer status posttreatment in remission, BPH with LUTS, GERD presented with unresponsiveness followed by seizure like activity and was admitted with unresponsiveness, acute respiratory failure requiring endotracheal intubation and mechanical ventilator, hematuria. 1. Unresponsiveness (R41.89: Other symptoms and signs involving cognitive functions and awareness) Unresponsiveness present on admission. Etiology unknown. May be secondary to transient cardiac arrhythmia versus seizure. Neurology consult reviewed by me. I appreciate and agree with recommendations. EEG Unable to do MRI of the brain secondary to pacemaker placement. Ordered: [facility] Hospital Care/Day High 50 Minutes 17750 2. Acute respiratory failure (J96.00: Acute respiratory failure, unspecified whether with hypoxia or hypercapnia) Patient unable to protect his airways and was intubated in the emergency room. Continue with spontaneous breathing trial. Pulmonology is following and hopefully patient will be extubated today. Ordered: [facility] Hospital Care/Day High 50 Minutes [id number] 3. Endotracheally intubated (Z97.8: Presence of other specified devices) Supportive care. Pulmonology is following. Ordered: [facility] Hospital Care/Day High 50 Minutes [id number] 4. Seizure-like activity (R56.9: Unspecified convulsions) May be secondary to post syncopal seizure. Seen by neurologist no antiepileptics needed. Ordered: [facility] Hospital Care/Day High 50 Minutes [id number] 5. Hypotension (I95.9: Hypotension, unspecified) Secondary to IV sedation. Was transiently treated with Levophed. Levophed was weaned off. Ordered: [facility] Hospital Care/Day High 50 Minutes [id number] 6. Atrial fibrillation (I48.91: Unspecified atrial fibrillation) Chronic atrial fibrillation status post pacemaker placement. Eliquis temporarily on hold with recent hematuria. 7. Pacemaker (Z95.0: Presence of cardiac pacemaker) Secondary to sick sinus syndrome. Pacemaker check normal. 8. Thrombocytopenia (D69.6: Thrombocytopenia, unspecified) Chronic. Supportive care. 9. Hematuria (R31.9: Hematuria, unspecified) Gross hematuria present on admission. Seen by urologist. Was treated with continuous bladder irrigation. Resolved. Maintain Brown catheter until mentation is back to normal. Disposition: Pending extubation. I discussed the diagnosis and plan of care with the patient at the bedside. High Level of MDM based on addressing above issues. This documentation was transcribed using voice recognition software. Several attempts were made to ensure accuracy. However inadvertent computerized kindergarten classroom teacher errors may be present. Grace Patterson. Hospitalist. Orders: Add on Test Procalcitonin Restraint Evaluate Need to Continue After 24 Hours Restraint Initiate Non-Violent / Pej-Ifjv-Qkdwymfyiyv Behavior Restraint Monitoring Non-Violent / Non-Self- Destructive Behavior Restraint Progress Note Extracted from: Title:APSO Note-neurology Author:Jorje Martini RN Date:10/22/24 The patient is a 84-year-old male with a history of coronary artery disease, paroxysmal atrial fibrillation, bladder cancer, who was admitted to the hospital for possible seizure after an episode manifest as found staring off and unresponsive after an episode of slurred speech. 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 I cannot exclude a structural brain lesion contributed dating to a focal seizure disorder. I cannot completely exclude a provoked seizure from a underlying medical or metabolic process. I cannot exclude a vascular event such as cerebral ischemia or stroke from artery to artery embolus, cerebral artery thrombosis, or cardioembolic event contributing to patient's symptoms. The patient is following commands. Clinically stable. -Will continue to follow clinically with medical management -I discussed the case with the hospitalist [2] 1. Unresponsiveness (R41.89: Other symptoms and signs involving cognitive functions and awareness) 2. Acute respiratory failure (J96.00: Acute respiratory failure, unspecified whether with hypoxia or hypercapnia) 3. Endotracheally intubated (Z97.8: Presence of other specified devices) 4. Seizure-like activity (R56.9: Unspecified convulsions) 5. Atrial fibrillation (I48.91: Unspecified atrial fibrillation) 6. Pacemaker (Z95.0: Presence of cardiac pacemaker) 7. Thrombocytopenia (D69.6: Thrombocytopenia, unspecified) 8. Hematuria (R31.9: Hematuria, unspecified) Extracted from: Title:APSO Note Author:Ángel Ely DO ate:10/21/24 84-year-old male admitted fo r unresponsiveness and possible seizure-like activity. He was intubated in the emergency room because he maintained unresponsiveness. Patient has a history of A-fib status post left atrial appendage ligation May 2022 and takes Plavix only, CAD with three-vessel bypass, severe MR status post surgical repair, severe TR, sick sinus syndrome with a pacemaker, bladder cancer in remission, BPH with LUTS, and GERD. 1. Unresponsiveness (R41.89: Other symptoms and signs involving cognitive functions and awareness) Current vent settings this morning are assist-control, tidal volume 500, FiO2 40%, rate 60 with a PEEP of 5 EEG per neurology shows slowing but he was on sedating meds; if he does have another seizure-like event neurology said he can get another EEG Unable to do MRI given his pacemaker 2. Acute respiratory failure (J96.00: Acute respiratory failure, unspecified whether with hypoxia or hypercapnia) Vent settings as noted above DuoNeb 4 times daily Will attempt spontaneous breathing trial today; on minimal sedation 3. Endotracheally intubated (Z97.8: Presence of other specified devices) See 1 and 2 above 4. Seizure-like activity (R56.9: Unspecified convulsions) EEG shows slowing but he was on sedating meds when performed yesterday 5. Atrial fibrillation (I48.91: Unspecified atrial fibrillation) I added IV Lopressor 5 mg every 6 hours as needed Held anticoagulation therapy due to bleeding when he first got to the ICU and he was bleeding from his IV and trach and penis the hematuria 6. Pacemaker (Z95.0: Presence of cardiac pacemaker) Pacemaker check was fine 7. Thrombocytopenia (D69.6: Thrombocytopenia, unspecified) Platelets at 100,000; off anticoagulant therapy for now 8. Hematuria (R31.9: Hematuria, unspecified) Appreciate urology consult Resolved Off CBI Maintain Brown catheter until patient's mentation improves to the point where the catheter can be removed Orders: metoprolol, 5 mg = 5 mL, Injection, IV Push, q6hr PRN Other (see comment), Routine, Start date 10/21/24 9:42:00 EST, 10/21/24 9:42:00 EST Basic Metabolic Panel CBC w/ Auto Diff CBC w/ Auto Diff Comprehensive Metabolic Panel eGFR Restraint Evaluate Need to Continue After 24 Hours Restraint Evaluate Need to Continue After 24 Hours Restraint Initiate Non-Violent / Dgh-Xneg-Ftiveiberxv Behavior Restraint Monitoring Non-Violent / Non-Self- Destructive Behavior Restraint Monitoring Non-Violent / Non-Self- Destructive Behavior Restraint Progress Note Saline Lock Convert From IV Ventilator Settings VTE Risk Assessment PLAN: 1. Will attempt spontaneous breathing trial today 2. IV Lopressor 5 mg every 6 hours as needed 3. DuoNeb 4 times daily 4. Echocardiogram for tomorrow morning per cardiology recommendations 5. On minimal sedation 6. DVT prophylaxis with SCDs 7. Ulcer prophylaxis with IV PPI Family is concerned because the last time he was ventilated, he ended up with a Dobbhoff for 30 days. He has had esophageal strictures requiring dilatations in the past. My concern is that he has no OG NG tube and it was not attempted because of bleeding from his ET tube on first day of admission. Extracted from: Title:APSO Note- Neurology Author:Silviano Taylor RN Date:10/21/24 The patient is a 84-year-old male with a history of coronary artery disease, paroxysmal atrial fibrillation, bladder cancer, who was admitted to the hospital for possible seizure after an episode manifest as found staring off and unresponsive after an episode of slurred speech. 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 I cannot exclude a structural brain lesion contributed dating to a focal seizure disorder. I cannot completely exclude a provoked seizure from a underlying medical or metabolic process. I cannot exclude a vascular event such as cerebral ischemia or stroke from artery to artery embolus, cerebral artery thrombosis, or cardioembolic event contributing to patient's symptoms. Given the high morbidity and mortality associated with seizure disorder the patient is admitted to the hospital for further workup and evaluation and neurological assessment. The patient is following commands. -WIll follow clinically with medical management -I have reviewed the available blood work to assess for a metabolic process which may have contributed to the patient's clinical episode and will consider further labs based on these results -I reviewed the EEG which does not reveal evidence of any epileptiform activity which may have contributed to the patient's clinical symptoms -. -I discussed the case with the hospitalist [2] 1. Unresponsiveness (R41.89: Other symptoms and signs involving cognitive functions and awareness) 2. Acute respiratory failure (J96.00: Acute respiratory failure, unspecified whether with hypoxia or hypercapnia) 3. Endotracheally intubated (Z97.8: Presence of other specified devices) 4. Seizure-like activity (R56.9: Unspecified convulsions) 5. Atrial fibrillation (I48.91: Unspecified atrial fibrillation) 6. Pacemaker (Z95.0: Presence of cardiac pacemaker) 7. Thrombocytopenia (D69.6: Thrombocytopenia, unspecified) 8. Hematuria (R31.9: Hematuria, unspecified) Extracted from: Title:Gross Hematuria Author:AREN SALGUERO MD Date:10/20/24 Impression and Plan Gross hematuria: Patient's gross hematuria has resolved. Maintain Brown catheter until patient's mentation improves at that point, Brown catheter can be removed for a voiding trial Encourage double time voiding every 3-4 hours to encourage bladder emptying, stool softener to reduce risk of constipation, limit narcotics and anticholinergics Content of CBI. Can initiate or continue blood thinners if necessary History of bladder cancer: Patient will need to follow-up with his primary urologist for cystoscopy Extracted from: Title:APSO Note Author:Liset Painter Date:10/20/24 1. Unresponsiveness (R41.89: Other symptoms and signs involving cognitive functions and awareness) Of unclear etiology Differentials: Hypoxia with seizure activity, underlying cardiac arrhythmia Prior echocardiography does show underlying pulmonary hypertension CTA of head and neck with patent vessels Primary team has consulted neurology Did discuss this case directly with Dr. Neely --> Pacer interrogation did not reveal any malignant ventricular arrhythmias or rapid rates surrounding the last few days Plan for echocardiogram for right sided evaluation on Tuesday 2. Acute respiratory failure (J96.00: Acute respiratory failure, unspecified whether with hypoxia or hypercapnia) Unclear if this event was hypoxic, we will maintain ventilator at this time for patient protection Do not feel that this is a respiratory event at this time Continue with current ventilator settings, maintain sats 90-95% since no underlying lung disease Continue with sedative and analgesic to maintain RASS -1 to -2 VAP Bundle Daily ABGs Strict I&O Agree with bronchodilators Vasopressor requirement likely sedative related, primary team did give 1 L of LR. Given inability to insert OGT and provide nutrition, additional fluids provided with dextrose. VTE prophy in place; PPI for stress ulcer prophylaxis *Given that he does not have significant ventilator requirements, EEG results are pending, and once neurologically he has been cleared, we can consider extubation Orders: Dextrose 5% with 0.9% NaCl intravenous solution 1,000 mL, 1,000 mL, IV, 100 mL/hr, Routine, Start date 10/20/24 9:59:00 EST, 10 hour(s), Total volume (mL): 1,000, 76.4 kg, 1.97, m2 Blood Gas Art, with Lytes, Gluc, Lact Blood Gas Art, with Lytes, Gluc, Lact Oral Care Respiratory Assessment Ventilator Settings Extracted from: Title:APSO Note Author:Ángel Ely DO ate:10/20/24 84-year-old male admitted fo r unresponsiveness and possible seizure-like activity. He was intubated in the emergency room because he maintained unresponsiveness. Patient has a history of A-fib status post left atrial appendage ligation May 2022 and takes Plavix only, CAD with three-vessel bypass, severe MR status post surgical repair, severe TR, sick sinus syndrome with a pacemaker, bladder cancer in remission, BPH with LUTS, and GERD. 1. Unresponsiveness (R41.89: Other symptoms and signs involving cognitive functions and awareness) Current vent settings are assist-control, tidal volume 500, FiO2 35%, rate 16 with a PEEP of 5See above He is awake on the vent Probable extubation today Ordered: Initial Hospital Care/Day Moderate 55 Minutes 78964 2. Acute respiratory failure (J96.00: Acute respiratory failure, unspecified whether with hypoxia or hypercapnia) Questionable etiology He was intubated to protect his airway because he was unresponsive in the ED 3. Endotracheally intubated (Z97.8: Presence of other specified devices) See above 4. Seizure-like activity (R56.9: Unspecified convulsions) EEG today per neurology Ordered: Initial Hospital Care/Day Moderate 55 Minutes 50093 5. Atrial fibrillation (I48.91: Unspecified atrial fibrillation) Patient has a history of A-fib only on Plavix He had a left atrial appendage ligation May 2022 Having PVCs on monitor Cardiology [facility] [place] [facility] consulted Ordered: Initial Hospital Care/Day Moderate 55 Minutes 33025 6. Pacemaker (Z95.0: Presence of cardiac pacemaker) He was checked by ICU staffing last night [facility] [place] [facility] consulted 7. Thrombocytopenia (D69.6: Thrombocytopenia, unspecified) I suspended patient's subcu yesterday as his platelets were noted to be dropping plus heparin he was having some blood from his ET tube and around his penis with a Brown's placed Will continue to follow 8. Hematuria (R31.9: Hematuria, unspecified) Patient was placed on CBI last night due to hematuria Has a history of bladder cancer Urine in bag is now clear Urology was consulted Orders: acetaminophen, 325 mg = 1 supp, Supp, Rectal, q6hr PRN Pain/Fever, Routine, Start date 10/19/24 18:44:00 EST, 10/19/24 18:44:00 EST acetaminophen, 650 mg = 2 tab(s), Tab, NG-Tube, q6hr PRN Pain, Routine, Start date 10/19/24 15:08:00 EST, 10/19/24 15:08:00 EST albuterol-ipratropium, 3 mL, Soln-Inh, Inhalation, QID, Routine, Start date 10/20/24 12:00:00 EST fentanyl 1,000 mcg [50 mcg/hr] + Sodium Chloride 0.9% intravenous solution 100 mL, 100 mL, IV, 5 mL/hr, Routine, Start date 10/19/24 15:04:00 EST, 20 hour(s), Total volume (mL): 100, 25-250 mcg/hr, titrate per protocol to a pain score of 3, 76.4 kg, 1.97, m2 hydrALAZINE, 10 mg = 0.5 mL, Injection, IV Push, q6hr PRN Other (see comment), Routine, Start date 10/19/24 15:08:00 EST, 10/19/24 15:08:00 EST latanoprost ophthalmic, 1 drop(s), Soln-Opth, Eye-Both, Once a day (at bedtime), Routine, Start date 10/20/24 21:00:00 EST ondansetron, 4 mg = 2 mL, Injection, IV Push, q6hr PRN Nausea, Routine, Start date 10/19/24 15:08:00 EST, 10/19/24 15:08:00 EST pantoprazole, 40 mg = 10 mL, Injection, IV Push, Daily, Routine, Start date 10/20/24 9:00:00 EST, mL/hr, Infuse over 2 minute(s) propofol 1,000 mg [10 mcg/kg/min] + Generic Diluent 100 mL, 100 mL, IV, 4.58 mL/hr, Routine, Start date 10/19/24 15:04:00 EST, 21.8 hour(s), Total volume (mL): 100, 5-70 mcg/kg/min, Initial infusion rate 10 microgram/kg/min, adjust infusion rate by 5 microgram/kg/min q5min PRN to achieve sedation goal., 76.4 k... Basic Metabolic Panel Below the Knee Intermittent Pneumatic Compression Device Below the Knee Intermittent Pneumatic Compression Device Bladder Irrigation, Continuous CBC w/ Auto Diff CBC w/ Indices Communication Order Physician to Nursing Communication Order Physician to Nursing Consult to Cardiology Consult to Neurology Consult to Pulmonology Creatine Kinase eGFR Focused Assessment - Neurological Head of Bed 30 degrees Notify Provider Vital Signs Notify Provider Vital Signs NPO Diet Oral Care PT & PTT Pulse Oximetry Restraint Evaluate Need to Continue After 24 Hours Restraint Evaluate Need to Continue After 24 Hours Restraint Initiate Non-Violent / Tma-Pvnp-Uveqhvizyrm Behavior Restraint Initiate Non-Violent / Cpm-Wcte-Iqugyhoybxz Behavior Restraint Monitoring Non-Violent / Non-Self- Destructive Behavior Restraint Monitoring Non-Violent / Non-Self- Destructive Behavior Restraint Progress Note Restraint Progress Note Saline Lock Convert From IV Triglycerides Vital Signs VTE Risk Assessment Weight PLAN: 1. Continue current vent settings; will check with pulmonology as he has minimal support and he may be possibly extubated but on trials today 2. Urology consulted for the hematuria 3. [facility] vascular consulted 4. Sedation with propofol and fentanyl 5. Lab for a.m. 6. DVT prophylaxis with SCDs 7. EEG per neurology Extracted from: Title:Consult Note Author:Bo Neely MD ate:10/20/24 Unclear about the event. ECG does not demonstrate active ischemic changes. Troponins are negative. Pacemaker interrogation showed no evidence of high ventricular rate. Telemetry showed no evidence of malignant ventricular arrhythmias. Let's obtain a transthoracic echocardiogram, most likely will happen on Tuesday. Continue cardiac telemetry. 1. Unresponsiveness (R41.89: Other symptoms and signs involving cognitive functions and awareness) 2. Acute respiratory failure (J96.00: Acute respiratory failure, unspecified whether with hypoxia or hypercapnia) 3. Endotracheally intubated (Z97.8: Presence of other specified devices) 4. Seizure-like activity (R56.9: Unspecified convulsions) 5. Atrial fibrillation (I48.91: Unspecified atrial fibrillation) 6. Pacemaker (Z95.0: Presence of cardiac pacemaker) 7. Thrombocytopenia (D69.6: Thrombocytopenia, unspecified) Extracted from: Title:Consult Note-Neurology Author:Marynan GARZA, Jean Pierre Gonzalez Date:10/20/24 The patient is a 84-year-old male with a history of coronary artery disease, paroxysmal atrial fibrillation, bladder cancer, who was admitted to the hospital for possible seizure after an episode manifest as found staring off and unresponsive after an episode of slurred speech. 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 I cannot exclude a structural brain lesion contributed dating to a focal seizure disorder. I cannot completely exclude a provoked seizure from a underlying medical or metabolic process. I cannot exclude a vascular event such as cerebral ischemia or stroke from artery to artery embolus, cerebral artery thrombosis, or cardioembolic event contributing to patient's symptoms. Given the high morbidity and mortality associated with seizure disorder the patient is admitted to the hospital for further workup and evaluation and neurological assessment. -I have reviewed the CT scan of the brain personally -The patient cannot have an MRI due to pacemaker placement -The patient did have CT angiogram of the head and neck which does not reveal evidence of large vessel intracranial or extracranial cerebral artery stenosis or occlusion. -I have reviewed the available blood work to assess for a metabolic process which may have contributed to the patient's clinical episode and will consider further labs based on these results -I recommend obtaining an EEG to assess for any epileptiform activity which may have contributed to the patient's clinical symptoms -I counseled the patient's family on the possible diagnosis, prognosis, evaluation, and treatment options. I answered all questions. -I discussed the case with the hospitalist 1. Unresponsiveness (R41.89: Other symptoms and signs involving cognitive functions and awareness) 2. Acute respiratory failure (J96.00: Acute respiratory failure, unspecified whether with hypoxia or hypercapnia) 3. Endotracheally intubated (Z97.8: Presence of other specified devices) 4. Seizure-like activity (R56.9: Unspecified convulsions) 5. Atrial fibrillation (I48.91: Unspecified atrial fibrillation) 6. Pacemaker (Z95.0: Presence of cardiac pacemaker) 7. Thrombocytopenia (D69.6: Thrombocytopenia, unspecified) Extracted from: Title:Admission H & P Author:Harley Ely DO. Date:10/19/24 84-year-old male admitted fo r unresponsiveness and possible seizure-like activity. He was intubated in the emergency room because he maintained unresponsiveness. Patient has a history of A-fib status post watchman's device and takes Plavix only, CAD with three-vessel bypass, severe MR status post surgical repair, severe TR, sick sinus syndrome with a pacemaker, bladder cancer in remission, BPH with LUTS, and GERD. 1. Unresponsiveness (R41.89: Other symptoms and signs involving cognitive functions and awareness) Will maintain current vent settings with assist-control, tidal volume 500, FiO2 50%, rate 16 with a PEEP of 5 Pulmonology consulted for vent management 2. Seizure-like activity (R56.9: Unspecified convulsions) Will get neurology consulted He may need an EEG Unable to do MRI given his pacemaker status 3. Atrial fibrillation (I48.91: Unspecified atrial fibrillation) He is feeling PVCs with some ectopy Will continue to follow He is having some bleeding from his IV sites; I will repeat labs later this afternoon including coagulation studies, CBC as well Endotracheally intubated (Z97.8: Presence of other specified devices) Orders: acetaminophen, 650 mg = 2 tab(s), Tab, NG-Tube, q6hr PRN Pain, Routine, Start date 10/19/24 15:08:00 EST, 10/19/24 15:08:00 EST albuterol-ipratropium, 3 mL, Soln-Inh, Inhalation, q6hrFT, Routine, Start date 10/19/24 18:00:00 EST fentanyl 1,000 mcg [50 mcg/hr] + Sodium Chloride 0.9% intravenous solution 100 mL, 100 mL, IV, 5 mL/hr, Routine, Start date 10/19/24 15:04:00 EST, 20 hour(s), Total volume (mL): 100, 25-250 mcg/hr, titrate per protocol to a pain score of 3, 76.4 kg, 1.97, m2 heparin, 5,000 unit(s) = 1 mL, Injection, SubCutaneous, BID for 30 day(s), Stop date 11/18/24 20:59:00 EST, Routine, Start date 10/19/24 21:00:00 EST, 10/19/24 15:00:00 EST hydrALAZINE, 10 mg = 0.5 mL, Injection, IV Push, q6hr PRN Other (see comment), Routine, Start date 10/19/24 15:08:00 EST, 10/19/24 15:08:00 EST ondansetron, 4 mg = 2 mL, Injection, IV Push, q6hr PRN Nausea, Routine, Start date 10/19/24 15:08:00 EST, 10/19/24 15:08:00 EST pantoprazole, 40 mg = 10 mL, Injection, IV Push, Daily, Routine, Start date 10/20/24 9:00:00 EST, mL/hr, Infuse over 2 minute(s) propofol 1,000 mg [10 mcg/kg/min] + Generic Diluent 100 mL, 100 mL, IV, 4.58 mL/hr, Routine, Start date 10/19/24 15:04:00 EST, 21.8 hour(s), Total volume (mL): 100, 5-70 mcg/kg/min, Initial infusion rate 10 microgram/kg/min, adjust infusion rate by 5 microgram/kg/min q5min PRN to achieve sedation goal., 76.4 k... Basic Metabolic Panel Below the Knee Intermittent Pneumatic Compression Device Below the Knee Intermittent Pneumatic Compression Device CBC w/ Auto Diff CBC w/ Indices Communication Order Physician to Nursing Communication Order Physician to Nursing Consult to Neurology Consult to Pulmonology Creatine Kinase Focused Assessment - Neurological Head of Bed 30 degrees Notify Provider Vital Signs Notify Provider Vital Signs NPO Diet Oral Care PT & PTT Pulse Oximetry Restraint Evaluate Need to Continue After 24 Hours Restraint Initiate Non-Violent / Drq-Bggd-Wevomnaoddf Behavior Restraint Monitoring Non-Violent / Non-Self- Destructive Behavior Restraint Progress Note Saline Lock Convert From IV Triglycerides Ventilator Settings Vital Signs VTE Risk Assessment Weight PLAN: 1. Patient is placed on the medical service in the ICU 2. Continue current vent settings assist-control, tidal volume 500, FiO2 50%, rate 16 with a PEEP of 5 3. Sedation with propofol and fentanyl 4. Pulmonology consulted for vent management help with 5. Neurology consulted; question if he needs an EEG 6. Lab for a.m. 7. DVT prophylaxis with SCDs and subcu heparin Anticipate greater than 2 midnight stays for inpatient status Addendum by Pippa Ely DO on October 19, 2024 16:49:20 EST CORRECTION: -Patient did not have a watchman's device. He had his left atrial appendage ligated when he had his bypass in May 2022. Also when he was on Eliquis he had a lot of hematuria so that is why did the ligation and he was placed on Plavix. Extracted from: Title:Consult Note Author:Arun VILLARREAL-Sanchez Date:10/19/24 1. Unresponsiveness (R41.89: Other symptoms and signs involving cognitive functions and awareness) Of unclear etiology Differentials: Hypoxia with seizure activity, underlying cardiac arrhythmia Prior echocardiography does show underlying pulmonary hypertension CTA of head and neck with patent vessels Primary team has consulted neurology Did discuss this case directly with Dr. Neely, he recommended pacer interrogation Consider echocardiogram for right sided evaluation 2. Acute respiratory failure (J96.00: Acute respiratory failure, unspecified whether with hypoxia or hypercapnia) Unclear if this event was hypoxic, we will maintain ventilator at this time for patient protection Do not feel that this is a respiratory event at this time Continue with current ventilator settings, maintain sats 90-95% since no underlying lung disease Continue with sedative and analgesic to maintain RASS -1 to -2 VAP Bundle Daily ABGs Strict I&O Agree with bronchodilators VTE prophy in place; PPI for stress ulcer prophylaxis 3. Endotracheally intubated (Z97.8: Presence of other specified devices) 4. Seizure-like activity (R56.9: Unspecified convulsions) 5. Atrial fibrillation (I48.91: Unspecified atrial fibrillation) 6. Pacemaker (Z95.0: Presence of cardiac pacemaker) 7. Thrombocytopenia (D69.6: Thrombocytopenia, unspecified) Addendum by Tayla Self MD on October 22, 2024 17:19:12 EST I have reviewed the patient's record, results and I agree with the nurse practitioner's documentation, assessment and plan Extracted from: Title:ED Note Author:Irineo Hartmann DO Date:09/27 01/18 Seizure-like activity (R56.9 : Unspecified convulsions) Stroke (I63.9: Cerebral infarction, unspecified) Orders: etomidate, 30 mg = 15 mL, Soln-IV, IV Push, Once, Stop date 10/19/24 12:00:00 EST, Routine, Start date 10/19/24 12:00:00 EST, 10/19/24 11:48:00 EST fentanyl 1,000 mcg [50 mcg/hr] + Sodium Chloride 0.9% intravenous solution 100 mL, 100 mL, IV, 5 mL/hr, Routine, Start date 10/19/24 11:48:00 EST, 20 hour(s), Total volume (mL): 100, 25-250 mcg/hr, titrate per protocol to a pain score of 3, 76.4 kg, 1.97, m2 propofol 1,000 mg [5 mcg/kg/min] + Generic Diluent 100 mL, 100 mL, IV, 2.29 mL/hr, Routine, Start date 10/19/24 11:48:00 EST, 43.7 hour(s), Total volume (mL): 100, 5-70 mcg/kg/min, Initial infusion rate 10 microgram/kg/min, adjust infusion rate by 5 microgram/kg/min q5min PRN to achieve sedation goal., 76.4 k... rocuronium, 100 mg = 10 mL, Soln-IV, IV Push, Once, Stop date 10/19/24 12:00:00 EST, Routine, Start date 10/19/24 12:00:00 EST BB Draw & Hold Blood Gas Art, with Lytes, Gluc, Lact Cardiac Monitoring CBC w/ Auto Diff Communication Order Communication Order Communication Order Physician to Nursing Comprehensive Metabolic Panel Continuous Pulse Oximetry CT Head or Brain w/o Contrast CTA Head CTA Neck Dysphagia Screen eGFR Extra [place] Tube Extra SST Tube Focused Assessment - Neurological Neurological Assessment NPO Diet Oxygen Protocol PT & PTT Rapid Response Form Routine Capillary Glucose POC Stroke Quality Measures Troponin 0 Hr. Troponin 1 Hr. UA with Cult Rflx Urinary Catheter Insertion Ventilator Settings XR Chest Single View Future Appointments Appointment Date:11/12/2024 01:15:00 PM Scheduled Provider:Ric Martinez PA-C Location:[facility] Appointment Type:Cardiology Follow Up ([facility]) Appointment Date:12/06/2024 09:00:00 AM Scheduled Provider: Location:.CARDIO Appointment Type:NCV Pacemaker ([facility]) [facility] 01-29-2025 NoteDischarge Summary Admission and Discharge Information Admit Date/Time:10/19/2024 13:28 Admitting Physician - Ray Durbin III, DO Consulting Physician - Sarah Monroy MD [facility] [place] Cardio, XXXX NOEMY MAHONEY, AREN Dias [facility], Liset Oneal Admitting Diagnoses: Discharge Diagnoses 1. Acute respiratory failure, 10/19/2024 2. Ventricular tachycardia, 10/24/2024 3. Unresponsiveness, 10/19/2024 4. Acute metabolic encephalopathy, 10/24/2024 5. Seizure-like activity, 10/19/2024 6. Hypotension, 10/22/2024 7. Atrial fibrillation, 10/19/2024 8. Pacemaker, 10/19/2024 9. Thrombocytopenia, 10/19/2024 10. Hematuria, 10/20/2024 Altered mental status, 10/19/2024 Seizure, 10/19/2024 Procedure History Biopsy of bladder (10/08/2022), TURP - Transurethral resection of prostate (10/08/2022), Cardiac catheterization, left heart (05/27/2022), Cardiac catheterization, left heart (05/27/2022), EGD - Esophagogastroduodenoscopy (03/30/2022), Cystoscopy (01/26/2022), Transrectal biopsy of prostate using ul trasound guidance (12/02/2010), Abdominal hernia, Cholecystectomy, Hip replacement, Insertion of cardiac pacemaker, Repair of femoral hernia with groin incision, Tonsillectomy. Hospital Course 84-year-old male with history of chronic atrial fibrillation status post left atrial appendage ligation in May 2022 on Plavix, coronary artery disease status post CABG x 3 vessels, severe mitral regurgitation status post repair, sick sinus syndrome status post pacemaker placement, bladder cancer status post treatment in remission, BPH with LUTS, GERD presented with unresponsiveness followedby seizure-like activity. He was subsequently admitted to [facility] with unresponsiveness, acute respiratory failure requiring endotracheal intubation and mechanical ventilation, gross hematuria. He was initially treated in the ICU with continuous bladder irrigation, mechanical eula tilator and nebulizer treatments and IV fluid, IV Levophed. He was seen in consultation by the neurologist, urologist, abstract searcher. EEG was done and was unrevealing. MRI of the brain could not be done secondary to noncompatible pacemaker. Patient's overall condition improved and he was successfully extubated and transferred to the regular medical floor. However patient developed acute metabolicencephalopathy while on the floor and was treated with IM Geodon. Subsequently patient was found nils hypoxic and to have ventricular tachycardias. He was subsequently reintubated and started on IV amiodarone drip and transferred to the ICU. He was started on IV Precedex. Family however requested a [facility]tiary [facility]. Arrangements have been made for this and patient was subsequently transferred to [facility] on 10/24/2024. Physical Exam Vitals & Measurements T: 36.7 ???C(Axillary) TMIN: 36.2 ???C(Axillary) TMAX: 37.4 ???C(Axillary) HR: 98(Monitored) RR: 24BP: 117/79 SpO2: 94% HT: 182 cm WT: 74.6 kg General: Mildly sedated on the mechanical ventilator Skin: warm, dry Head: no trauma, normocephalic Neck: Trachea midline, no adenopathy, no tenderness Eye: normal conjunctiva, sclera clear ENMT: TM's clear, oral mucosa moist, no pharyngeal erythema or exudate, ET tube in place and connected to mechanical ventilator Cardiovascular: regular rate and rhythm, normal peripheral perfusion Respiratory: Lungs CTA, respirations non labored Chest wall: no deformity. Gastrointestinal: soft, non distended, no tenderness, no guarding. Bowel sounds intact. Genitourinary: Brown catheter in place and draining urine. Back: No tenderness, Normal ROM, Normal alignment. Extremities: no deformity, no trauma Neurological: Mildly sedated and on mechanical ventilator Tests Performed Sputum Culture -- Results Pending -- CT Head or Brain w/o Contrast CTA Head CTA Neck XR Chest Single View Please visit your patient portal for your results or contact your primary care physician. Discharge Plan Discharge Disposition Discharge To, Anticipated II - Acute Care Facility Discharged to - Other: [facility] [place] Discharge Medication List Prescriptions clopidogrel 75 mg Tab, 75 mg= 1 tab(s), Oral, Daily, 1 refills Flomax 0.4 mg Cap, 0.4 mg= 1 cap(s), Oral, Daily, 3 refills lisinopril 2.5 mg Tab, 2.5 mg= 1 tab(s), Oral, Daily, 5 refills Lopressor 25 mg oral tablet, 25 mg= 1 tab(s), Oral, BID, 3 refills rosuvastatin 10 mg Tab, 10 mg= 1 tab(s), Oral, Daily, 3 refills Home finasteride 5 mg Tab, 5 mg= 1 tab(s), Oral, Daily latanoprost Opth 0.005% Jo Ann, 1 drop(s), Eye-Both, Once a day (at bedtime) Follow-up With When Contact Information Porfirio MAHONEY, YAHIR Mir Within 2 to [address] [address]- Additional Instructions:[facility] [place] on above:Result Comment: Electronically Signed By: GLENDY MAHONEY, Grace\.br\Date and Time Signed: 10/24/24 11:05 [id number] History and physical note* Rubén Lal MD - 10/24/2024 7:18 AM EST Cardiology Critical Care History and Physical Subjective Patient is a 84 y.o. male admitted on 10/24/2024 9:59 AM with chief complaint of AHRF s/p intubation on mechanical ventilation with concern for arrhythmia. HPI: Patient is an 84 yo M with PMH significant for COPD, CAD (s/p CABG x3 JUÁREZ - LAD SVG - PDA SVG - OM 2021), A-fib (s/p Left atrial appendage ligation), 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 Per OSH report: Patient's last known well was at 10 AM 10/19/24 where he had some garbled speech while on the phone but had resolved. He had went out to the garage for a few minutes and upon his return, his reported he became a wax statue, where he was stuck in 1 position and did not respond to her voice commands. She saw that his knees were about to buckle and she wrapped her arms around his waist and lowered him to the floor. They report he did not sustain any traumatic injury at that time. She immediately called 911. He did have some time with sonorous respirations. Upon arrival with EMS, he was able to follow commands but did not open his eyes. En route there was questionable seizure activity. His daughter had reported an event similar to his current where he did have a seizure, he was evaluated by neurology and did take Keppra for a year. They had determined it was related to hypoxia as wellas the time he has been diagnosed with sick sinus syndrome and received a pacemaker. He was treatedwith Valium per prehospital providers. Glucose level 156. He presented as a stroke alert in the emergency department and his GCS was only 3. It was elected to secure his airway with intubation. CT ofbrain negative at this time, CTA of the head and neck also reveal patency of cerebral vessels and carotids. EKG with atrial fibrillation and PVCs present. Pacemaker inserted in August 2021. Most recent pacer check was completed in May 2024. This did show 26 different events with high ventricular rates, the most prominent lasting 39 seconds which appeared to be in RVR response. He was programmed to VVIR at that time. Most recent echo August 2022 mentioned moderate left ventricular hypertrophy,biatrial severe dilation, a severe elevation of RVSP at 66. LVEF 50-55%. During OSH course: Intubated in ed extubated . Then had trouble swallowing and reintubated after given Geodon. He was also started on amiodarone infusion for concern for VT/torsades at OSH. On arrival to [facility]: -Vitals: HR 73, RR 22, BP 82/61, SpO2 91%, on mechanical ventilation: 14/450/8/40% FiO2 -Labs CMP: Glucose 125, BUN 28/creatinine 0.56, T. bili 2.2 otherwise unremarkable. CBC: WBC 5.0, hemoglobin 10.8, hematocrit 31.1, PLT 112 VB.4 5/33/56/22.9 -Imaging: CXR ordered, echocardiogram ordered -Intervention: Patient's blood pressure continued to drop requiring initiation vasopressors in the form of Levophed at 0.02. Precedex was subsequently weaned down to 0.02, patient was continued on amiodarone infusion from OSH. 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 finasteride (Proscar) 5 mg tablet Take 1 tablet (5 mg) by mouth once daily. latanoprost (Xalatan) 0.005 % ophthalmic solution Administer 1 drop into both eyes once daily at bedtime. lisinopril 2.5 mg tablet TAKE 1 TABLET BY NASOGASTRIC TUBE ONCE A DAY metoprolol tartrate (Lopressor) 25 mg tablet Take 1 tablet (25 mg) by mouth 2 times a day. rosuvastatin (Crestor) 10 mg tablet Take 1 tablet (10 mg) by mouth once daily. tamsulosin (Flomax) 0.4 mg 24 hr capsule Take 1 capsule (0.4 mg) by mouth once daily. Ciprofloxacin and Penicillins Social History Tobacco Use Smoking status: Former Types: Cigarettes Passive exposure: Never Smokeless tobacco: Never No family history on file. Scheduled Medications: heparin (porcine), 5,000 Units, subcutaneous, q8h lactated Ringer's, 1,000 mL, intravenous, Once oxygen, , inhalation, Continuous - Inhalation oxygen, , inhalation, Continuous - Inhalation [START ON 10/25/2024] pantoprazole, 40 mg, oral, Daily before breakfast Or [START ON 10/25/2024] pantoprazole, 40 mg, intravenous, Daily before breakfast Continuous Medications: amiodarone, 0.5 mg/min, Last Rate: 0.5 mg/min (10/24/24 1107) dexmedeTOMIDine, 0.1-1.5 mcg/kg/hr, Last Rate: 0.2 mcg/kg/hr (10/24/24 1108) norepinephrine, 0.01-1 mcg/kg/min, Last Rate: 0.06 mcg/kg/min (10/24/24 1103) PRN Medications: PRN medications: ipratropium-albuteroL Review of Systems: Review of Systems Unable to obtain as patient is intubated/sedated. Objective Vitals: 24hr Min/Max: Temp Min: 36.7 C (98.1 F) Max: 36.7 C (98.1 F) Pulse Min: 69 Max: 100 BP Min: 71/54 Max: 128/83 Resp Min: 19 Max: 25 SpO2 Min: 91 % Max: 93 % Physical exam: Physical Exam General: Not in acute distress, intubated/sedated, cooperative, frail HEENT: Normocephalic, atraumatic, EOMI, moist mucous membranes ET tube in place Neck: Neck supple, trachea midline, no evidence of trauma Cardiovascular: IRR, S1 and S2 appreciated, no murmurs rubs gallops appreciated, distal pulses 2+ bilaterally (radial and dorsalis pedis) Respiratory: Mechanical breath sounds appreciated bilaterally, no adventitious sounds appreciated, no increased work of breathing on ventilator settings 450/14/8/40% FiO2 GI: Abdomen soft, nondistended, nontender to palpation, bowel sounds present : Brown catheter in place draining domingo/tea colored urine Extremities: No edema appreciated in lower extremities bilaterally, no cyanosis Neuro: A&O X3, no focal deficits, strength and sensation intact bilaterally Skin: Warm and dry, without lesions or rashes Assessment /Plan Patient is an 84 yo M with PMH significant for COPD, CAD (s/p CABG x3 JUÁREZ - LAD SVG - PDA SVG - OM 2021), A-fib (s/p Left atrial appendage ligation), SSS w/ AVB (s/p St. Ankush PPM 2010), MR (s/p repair), TR, BPH, HLD, GERD, HTN, HFrEF (EF 50-55% 08/2022), hx bladder cancer (s/p TURBT), metastaticSCC (s/p excision/parathyroidectomy,neck dissection, and radiation therapy with residual dysphagia.[facility] with concerns for stroke versus syncope. Patient was transferred to [facility] CICU for concern for arrhythmia in the setting of [place] Ank[place] PPM while intubated and mechanically ventilated. Neuro: #Syncopal episode with altered mental status #S/p Geodon causing AHRF requiring intubation mechanical ventilation -History: patient was worked up for seizure and stroke at OSH all of the workup was negative including imaging as well as video EEG per paper chart documentation. -Home meds: None -GCS: E 1 V 1 M 4 -Pain: none -Sedation: precedex -[facility] ICU -complete echocardiogram ordered Cardiac: #Undifferentiated shock requiring vasopressors # VT/Torsades at OSH? #Cardiogenic Syncope? #STJ AV PPM set to VVIR - History: CAD (s/p CABG x3 2021 JUÁREZ - LAD SVG - PDA SVG - OM ), A-fib (s/p Left atrial appendage ligation), SSS w/ AVB (s/p St. Ankush PPM 2010), MR (s/p repair), TR, HLD, GERD, HTN, HFpEF (EF 50-55% 08/2022) - Goals: [MAP> 65, HR 60-100] - Home meds: Plavix, lisinopril, Crestor - Last echo: 08/27/2022 mild to moderate left ventricular hypertrophy. Unable to quantify diastolic dysfunction due to atrial fibrillation. The left atrium is severely dilated. The right atrium is severely dilated. The right ventricular systolic function is mildly reduced. Mild aortic regurgitation. Trivial mitral regurgitation There is moderate tricuspid regurgitation. Estimated RVSP is severely elevated at 66 mmHg. In comparison echo report dated 02/09/2022, LV function has remained the same, severe mitral regurgitation has been corrected with mitral valve repair, RVSP has increased from 55 to 66 mmHg. LVEF 50-55%. -Most recent pacer check was completed in May 2024. This did show 26 different events with high ventricular rates, the most prominent lasting 39 seconds which appeared to be in RVR response. Hewas programmed to VVIR - Pressors: Levophed 0.06 -Antiarrhythmics: Amiodarone infusion @ 0.5 -EKG on admission showing atrial fibrillation with occasional V-paced beats -Rhythm strip from EMS personnel indicating wide-complex rhythm occurring in synchrony with V pacedspikes likely indicating a paced rhythm and not ventricular arrhythmia. 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 -Home meds:, Causing recurrent none - Diet: NPO - Supplementation: None - Prophylaxis: pepcid / protonix - Bowel regimen: none at this time - Last BM: Renal/: # Difficult Brown catheter placement requiring CBI at OSH - Daily RFP,Mg,Phos - History: Hx Bladder/prostate cancer s/p TURBT - Home meds: Finasteride 5 mg, Flomax 0.4 mg -Continue Brown with strict I/O Net IO Since Admission: No IO data has been entered for this period [10/24/24 1128] Results from last 72 hours Lab Units 10/24/24 1027 BUN mg/dL 28* CREATININE mg/dL 0.56 - Fluids: As needed - Electrolytes: Replete per protocol, goal K>4 Phos >3 Mg >2 -Urology consulted for Brown catheter placement as urology was needed to place at OSH after multiple failed attempts causing gross hematuria and required CBI. Endocrine: -History: None -Home meds: None -sliding scale: none at this time we will add SSI as indicated trending glucose Results from last 7 days Lab Units 10/24/24 1027 10/24/24 1013 POCT GLUCOSE mg/dL -- 133* GLUCOSE mg/dL 125* -- -BG < 180 goal Hematology/oncology: - Daily CBC, coags -History: Hx malignant SCC s/p radiotherapy surgical resection, Hx bladder/prostate cancer s/p TURP -Home meds: Finasteride Results from last 7 days Lab Units 10/24/24 1027 HEMOGLOBIN g/dL 10.8* HEMATOCRIT % 31.1* PLATELETS AUTO x10*3/uL 112* - DVT Prophylaxis: Heparin subcu Infectious Disease: -History: none -Home meds: None Results from last 7 days Lab Units 10/24/24 1027 WBC AUTO x10*3/uL 5.0 Temp (24hrs), Av.7 C (98.1 F), Min:36.7 C (98.1 F), Max:36.7 C (98.1 F) -Abx: none at this time as no S/S infection -Cultures: BCX2 MSK/Integumentary: -OSMIN -PT to see OT to see LDA: PIVx 2 ETT 8mm L Art line CODE STATUS: Full Code Case discussed with attending , Dr. Martínez Lal M.D. Internal Medicine PGY-2 Cosigned by Jason Soliz DO at 10/24/2024 5:45 PM EST Associated attestation - Jason Soliz DO - 10/24/2024 5:45 PM EST Brief Attending Summary: 84M with a PMHx sig for CAD s/p CABG, AF s/p LAAL, SSS s/p ppm, and COPD who was admitted to an outside hospital for syncope and transferred to [facility] for management of acute hypoxic respiratory failure s/p mechanical ventilation and concern for arrhythmias (? PMVT). Plan: -device interrogation -echo -wean vent as able I have reviewed and evaluated the most recent data and results, personally examined the patient, and formulated the plan of care as presented above. This patient was critically ill and required continued critical care treatment. Teaching and any separately billable procedures are not included in the time calculation. Billing Provider Critical Care Time: 60 minutes documented in this [facility] Work Phone: [phone] NoteProgress Note-Nurse 0110H - This RN accompanined the patient from [address] [place] [address] to ICU 6. Patient is intubated at et size 7.5 manually bagged by the RT while transporting to ICU. Patient sedated pre-procedure, patient is responsive to pain, attached to ZOL machine. - Patient assisted in transferring from cot to ICU bed, attached patient to monitor and ventilator. - Monitored vitals and recorded - Patient maintains on afib RVR with multiple runs of vtach, referred patient to the hospitalist with orders made and carried out - Patient kept rested and comfortable on the bed.[facility] 10-24-2024 NoteProgress Note-Physician Rapid response called at approximately 2345 on 10/23/2024 for decreased responsiveness and hypoxia with 2 runs of nonsustained ventricular tachycardia for about 4 beats each that resolved spontaneously. Nursing staff notes that pulse ox was 76% on 3 L nasal cannula. He was switched to nonrebreather prior to my arrival. Earlier in the evening patient had become altered and was medicated with [id number] mg IM. By time I arrived patient was drowsy but answer to his name. He knew that he was in the hospital but did not know the name of the hospital. Systolic blood pressure was in the 110s millimeters mercury and pulse ox 98% on nonrebreather. Patient was then switched to 6 L nasal cannula. ABG was obtained that showed pH 7.28, pCO2 52 pO2 114. EKG showed sinus arrhythmia with no ST-T segment elevations. At that time I felt patient's symptoms were likely secondary to IM Geodon. Then at approximately 0015 10/24/2024 rapid response was called because of respiratory arrest and arrhythmia on monitor. Nursing staff states that patient's pulse ox dropped approximately 30% on nasalcannula. Patient did have a palpable pulse at that time. Respiratory staff did begin to use Ambu bag to ventilate patient. His pulse ox did go up to 99%. Systolic blood pressure in the 110s. Heart rate 90s. Decision was made to intubate patient in transfer to ICU. Patient was successfully intubated see separate note for details. Will transfer patient to ICU and start patient on Precedex drip Assessment/plan Respiratory failure Will check basic metabolic panel, CBC, magnesium, troponin Will reconsult cardiology and pulmonary. Will contact patient's Smitha to to update on events of tonight. critical care time = 45 mins excluding separately billable procedures. After arrival to ICU patient still having nonsustained runs of V. tach. Will start patient on amiodarone bolus/drip. I did contact patient's Smitha Arce (healthcare power of civil litigation attorney) to update her on situation. I also contacted patient's daughter Jayashree Bear to update her on situation as well. Daughter acknowledges that Smitha is healthcare power of civil litigation attorney. Both daughter and are in agreement that patient would not want CPR performed or direct cardioversion therefore CODE STATUS will be made DNR CCA. For time being patient will remain intubated and on ventilator. I received a call from patient's /healthcare power of civil litigation attorney Smitha Arce and she has requested patient be transferred to [facility] for higher level of care. Patient has had previous cardiac surgery there. Will change patient back to full code for time being and initiate transfer process. I did speak to [facility] cardiovascular ICU Dr. Soliz and he has accepted patient in transfer. They do anticipate beds being available tonight and once assigned ICU transportation will be arranged.[facility] DublinComment on above:Result Comment: Electronically Signed By: Aldair RIVERA DO.br\Date and Time Signed: 10/24/24 03:58 [id number] NoteProgress Note-Nurse 1999- Upon assessment and vital signs, patient was resting with eyes closed and had to be verbally stimulated to wake. Alert to self and time but not place and situation. Calm, cooperative, and in good spirits. Order for 20mg Geodon was questioned to MD. Decision was made to D/C order. 2299- Tactile and Visual hallucinations noted. Increased confusion. Pt had taken off telemetry and O2 tubbing multiple times. Message sent to MD adon. Informed him that I had a conversation with justo RN who had him most of 10/23. She stated that the thought he was hallucinating and that his sleep/wake cycle was disturbed. For this reason the Geodon order was placed for 1999 by Andrea. Also informed him of the increasing confusion, hallucinations, and impulsiveness. Order for 20mg Geodon was then reordered for 2299. 2315- 20mg Geodon given IM using 6 rights of medication administration. 2355- Started to have non sustained runs of Vtach on the monitor. Upon walking into the room pt washaving sonorous respirations and was arousable to name. Unable to follow commands. Sat patient bed upright 2356 Rapid Response called. Vitals taken. Found to be 75% on 3L. Non-Rebreather placed and began sating 99%. BP 176/72 HR 115, T 36.5, RR 23, SpO2 99%. 2358- MD at the bedside, EGK no acute changes, Transitioned back to 3L NC and order for continuous pulse ox was given. Patient remained in room. Continued to have lots of ectopy and nonsustained runs of VTach. Code cart brought to room and Fastpatched placed. Patient slowly become less arousable to name, started guppy breathing, color began to change, pulse ox dropped as low as 30%, 2 RNs and Respiratory in the room. 0016 Second Rapid Response called- See rapid response from. Handoff given to ICU nurse assuming care.[id number] NoteProgress Note-Physician Rapid response called at approximately 2345 on 10/23/2024 for decreased responsiveness and hypoxia with 2 runs of nonsustained ventricular tachycardia for about 4 beats each that resolved spontaneously. Nursing staff notes that pulse ox was 76% on 3 L nasal cannula. He was switched to nonrebreather prior to my arrival. Earlier in the evening patient had become altered and was medicated with [id number] mg IM. By time I arrived patient was drowsy but answer to his name. He knew that he was in the hospital but did not know the name of the hospital. Systolic blood pressure was in the 110s millimeters mercury and pulse ox 98% on nonrebreather. Patient was then switched to 6 L nasal cannula. ABG was obtained that showed pH 7.28, pCO2 52 pO2 114. EKG showed sinus arrhythmia with no ST-T segment elevations. At that time I felt patient's symptoms were likely secondary to IM Geodon. Then at approximately 0015 10/24/2024 rapid response was called because of respiratory arrest and arrhythmia on monitor. Nursing staff states that patient's pulse ox dropped approximately 30% on nasalcannula. Patient did have a palpable pulse at that time. Respiratory staff did begin to use Ambu bag to ventilate patient. His pulse ox did go up to 99%. Systolic blood pressure in the 110s. Heart rate 90s. Decision was made to intubate patient in transfer to ICU. Patient was successfully intubated see separate note for details. Will transfer patient to ICU and start patient on Precedex drip Assessment/plan Respiratory failure Will check basic metabolic panel, CBC, magnesium, troponin Will reconsult cardiology and pulmonary. Will contact patient's Smitha to to update on events of tonight. critical care time = 45 mins excluding separately billable procedures. After arrival to ICU patient still having nonsustained runs of V. tach. Will start patient on amiodarone bolus/drip. I did contact patient's Smitha Arce (healthcare power of civil litigation attorney) to update her on situation. I also contacted patient's daughter Jayashree Bear to update her on situation as well. Daughter acknowledges that Smitha is healthcare power of civil litigation attorney. Both daughter and are in agreement that patient would not want CPR performed or direct cardioversion therefore CODE STATUS will be made DNR CCA. For time being patient will remain intubated and on ventilator. I received a call from patient's /healthcare power of civil litigation attorney Smitha Arce and she has requested patient be transferred to [facility] for higher level of care. Patient has had previous cardiac surgery there. Will change patient back to full code for time being and initiate transfer process.[facility] Dublin[facility] on above:Result Comment: Electronically Signed By: Aldair RIVERA DO\Date and Time Signed: 10/24/24 02:29 [id number] NoteProgress Note-Physician Rapid response called at approximately 2345 on 10/23/2024 for decreased responsiveness and hypoxia with 2 runs of nonsustained ventricular tachycardia for about 4 beats each that resolved spontaneously. Nursing staff notes that pulse ox was 76% on 3 L nasal cannula. He was switched to nonrebreather prior to my arrival. Earlier in the evening patient had become altered and was medicated with [id number] mg IM. By time I arrived patient was drowsy but answer to his name. He knew that he was in the hospital but did not know the name of the hospital. Systolic blood pressure was in the 110s millimeters mercury and pulse ox 98% on nonrebreather. Patient was then switched to 6 L nasal cannula. ABG was obtained that showed pH 7.28, pCO2 52 pO2 114. EKG showed sinus arrhythmia with no ST-T segment elevations. At that time I felt patient's symptoms were likely secondary to IM Geodon. Then at approximately 0015 10/24/2024 rapid response was called because of respiratory arrest and arrhythmia on monitor. Nursing staff states that patient's pulse ox dropped approximately 30% on nasalcannula. Patient did have a palpable pulse at that time. Respiratory staff did begin to use Ambu bag to ventilate patient. His pulse ox did go up to 99%. Systolic blood pressure in the 110s. Heart rate 90s. Decision was made to intubate patient in transfer to ICU. Patient was successfully intubated see separate note for details. Will transfer patient to ICU and start patient on Precedex drip Assessment/plan Respiratory failure Will check basic metabolic panel, CBC, magnesium, troponin Will reconsult cardiology and pulmonary. Will contact patient's Smitha to to update on events of tonight. critical care time = 45 mins excluding separately billable procedures. After arrival to ICU patient still having nonsustained runs of V. tach. Will start patient on amiodarone bolus/drip. I did contact patient's Smitha Arce ([facility] power of civil litigation attorney) to update her on situation. I also contacted patient's daughter Jayashree Bear to update her on situation as well. Daughter acknowledges that Smitha is healthcare power of civil litigation attorney. Both daughter and are in agreement that patient would not want CPR performed or direct cardioversion therefore CODE STATUS will be made DNR CCA. For time being patient will remain intubated and on ventilator.[facility] on above:Result Comment: Electronically Signed By: Aldair RIVERA DO.br\Date and Time Signed: 10/24/24 01:48 [id number] NoteProgress Note-Physician Endotracheal Intubation Procedure Note INDICATION: Respiratory failure ATTENDING PHYSICIAN: Aldair Rivera DO CONSENT: The procedure was emergent, the patient was unable to provide consent, and a designee was not immediately available. PROCEDURE SUMMARY: A time out was performed. My hands were sanitized immediately prior to the procedure. The patient was placed on a registered nurse cardiac including continuous pulse oximetry. The patient received etomidate 20 mg IV and rocuronium 100 mg IV for induction. Using a direct laryngoscope and a size 8.0 endotracheal tube with stylet, the patient was intubated on the first attempt. The stylet was removed and cuff balloon was inflated. Appropriate endotracheal tube position was confirmed by direct visualizationof vocal cord passage, fogging of the tube, CO2 colormetric indicator and symmetric breath sounds. The tube was secured at 20 cm at the lips. Post intubation chest x-ray is pending at this time. Clarification endotracheal tube is a 7.5 and 22 cm at the lip. Portable chest x- ray interpreted by myself shows a tube in good position about 3 cm above the ese. Currently patient has appropriate tidal volumes and pulse ox 100%[facility] DublinComment on above:Result Comment: Electronically Signed By: Aldair RIVERA DO\.br\Date and Time Signed: 10/24/24 01:14 [id number] NoteProgress Note-Physician Rapid response called at approximately 2345 on 10/23/2024 for decreased responsiveness and hypoxia with 2 runs of nonsustained ventricular tachycardia for about 4 beats each that resolved spontaneously. Nursing staff notes that pulse ox was 76% on 3 L nasal cannula. He was switched to nonrebreather prior to my arrival. Earlier in the evening patient had become altered and was medicated with Sxcoxd09 mg IM. By time I arrived patient was drowsy but answer to his name. He knew that he was in the hospital but did not know the name of the hospital. Systolic blood pressure was in the 110s millimeters mercury and pulse ox 98% on nonrebreather. Patient was then switched to 6 L nasal cannula. ABG was obtained that showed pH 7.28, pCO2 52 pO2 114. EKG showed sinus arrhythmia with no ST-T segment elevations. At that time I felt patient's symptoms were likely secondary to IM Geodon. Then at approximately 0015 10/24/2024 rapid response was called because of respiratory arrest and arrhythmia on monitor. Nursing staff states that patient's pulse ox dropped approximately 30% on nasalcannula. Patient did have a palpable pulse at that time. Respiratory staff did begin to use Ambu bag to ventilate patient. His pulse ox did go up to 99%. Systolic blood pressure in the 110s. Heart rate 90s. Decision was made to intubate patient in transfer to ICU. Patient was successfully intubated see separate note for details. Will transfer patient to ICU and start patient on Precedex drip Assessment/plan Respiratory failure Will check basic metabolic panel, CBC, magnesium, troponin Will reconsult cardiology and pulmonary. Will contact patient's Smitha to to update on events of tonight. critical care time = 45 mins excluding separately billable procedures. After arrival to ICU patient still having nonsustained runs of V. tach. Will start patient on amiodarone bolus/drip.[facility] DublinComment on above:Result Comment: Electronically Signed By: Aldair RIVERA DO\Date and Time Signed: 10/24/24 01:07 [id number] NoteCritical Care Progress Note Assessment/Plan Acute hypoxemic respiratory failure Unclear if this event was hypoxic, we will maintain ventilator at this time for patient protection Do not feel that this is a respiratory event at this time Plan: - Currently on 3L NC - Titrate O2 for sats 92-96% - Continue bronchodilators - Aspiration precautions - Encourage airway clearance and suctioning if necessary - Encourage IS and OOB VTE ppx: Heparin sq GI ppx: PPI Orders: heparin, 5,000 unit(s) = 1 mL, Injection, SubCutaneous, BID for 30 day(s), Stop date 11/21/24 20:59:00 EST, Routine, Start date 10/22/24 21:00:00 EST, 10/22/24 11:30:00 EST Extubation Oxygen Protocol XR Chest Single View Subjective Pt is an 84y M with past medical history significant for persistent atrial fibrillation (on plavix), coronary artery disease (with CABG x 3 vessels in May 2022, he did have his left atrial appendage ligated at that time), severe mitral and tricuspid regurgitation, sick sinus syndrome status post permanent pacemaker, and bladder cancer who presented to the ED on 10/19 with concerns for strokeversus syncope. At his baseline, he is typically alert and oriented x 4, family also reports that he is an incredibly active 84-year-old. Apparently last known well was at 10 AM where he had some garbled speech while on the phone but had resolved. He had went out to the garage for a few minutes andupon his return, his reports he became a wax statue, where he was stuck in 1 position and did not respond to her voice commands. She saw that his knees were about to buckle and she wrapped herarms around his waist and lowered him to the floor. They report he did not sustain any traumatic injury at that time. She immediately called 911. He did have some time with sonorous respirations. Upon arrival with EMS, he was able to follow commands but did not open his eyes. En route there was questionable seizure activity. His daughter had reported an event similar to his current where he did have a seizure, he was evaluated by neurology and did take Keppra for a year. They had determined it w as related to hypoxia as well as the time he has been diagnosed with sick sinus syndrome and received a pacemaker. He was treated with Valium per prehospital providers. Glucose level 156. He presented as a stroke alert in the emergency department and his GCS was only 3. It was elected to secure hisairway with intubation. CT of brain negative at this time, CTA of the head and neck also reveal patency of cerebral vessels and carotids. EKG with atrial fibrillation and PVCs present. Pacemaker inserted in August 2021. Most recent pacer check was completed in May 2024. This did show 26 different events with high ventricular rates, the most prominent lasting 39 seconds which appeared to be in RVR response. He was programmed to VVIR at that time. Most recent echo August 2022 mentioned moderate left ventricular hypertrophy,biatrial severe dilation, a severe elevation of RVSP at 66. LVEF 50- 55%. Aside from thrombocytopenia, his lab values have been unremarkable. He was admitted to the primary medicine team to the intensive care unit, pulmonary consulted for ventilator management. 10/20: Overnight he did have some issues with hematuria requiring CBI insertion and urology consult.He was being connected to EEG monitoring on my exam, he does open eyes and nod head to questions appropriately. He is on minimal ventilator settings. He also had required mild dosing of norepinephrine, there were systolic blood pressure readings in the 60s, fluids have been provided. 10/22: No acute events o/n. Pt was placed on SAT/SBT this AM and is doing well so far. RT reports moderate yellow secretions. Pt is awake and alert, following simple commands. His BP has been stable off of levophed. He has done well on SAT/SBT. Will extubate to NC. Repeat CXR today appears largely similar to the previous. 10/23: No acute events o/n. Nursing staff reports that the pt has been intermittently confused. He was tachycardic o/n which improved with metoprolol this AM. Pt is currently requiring 3L NC. He reports a productive cough with brownish sputum. Sputum cx sent this AM. Objective Vitals & Measurements T: 37 ???C(Axillary) TMIN: 37 ???C(Axillary) TMAX: 37.4 ???C(Axillary) HR: 103(Monitored) RR: 20 BP: 127/94 SpO2: 92% WT: 75.1 kg Intake & Output This visit (24 hour periods starting at 07:00 EST) 10/23/24 * 10/22/24 10/21/24 Total Summary Intake mL 10 422.36 2,926.23 Output mL -- 775 635 Fluid Balance 10 -352.64 2,291.23 Intake (6) Dextrose 5% with 0.9% NaCl intravenous solution 1,000 mL mL -- 355.02 2,688.8 Oral Intake mL -- -- -- fentanyl 1,000 mcg [50 mcg/hr] + Sodium Chloride 0.9% intravenous solution 100 mL mL -- 26.88 134.95 metoprolol mL -- 15 10 pantoprazole mL 10 10 10 propofol 1,000 mg [10 mcg/kg/min] + Generic Diluent 100 mL mL -- (more content not included)...[facility] [id number] NoteProgress Note-Physician Assessment/Plan 84-year-old male with history of atrial fibrillation status post left atrial appendage ligation May 2022 on Plavix, coronary artery disease status post CABG x 3 vessels, severe mitral regurgitation status post repair, sick sinus syndrome status post pacemaker placement, bladder cancer status posttreatment in remission, BPH with LUTS, GERD presented with unresponsiveness followed by seizure like activity and was admitted with unresponsiveness, acute respiratory failure requiring endotracheal intubation and mechanical ventilator, hematuria. He was successfully extubated on 10/22/2024. 1. Unresponsiveness (R41.89: Other symptoms and signs involving cognitive functions and awareness) Etiology unknown.???May be secondary to transient cardiac arrhythmia versus seizure. Seen by neurologist. Unable to perform MRI of the brain secondary to pacemaker. EEG???nonrevealing. Resolved. Patient is fully awake. Ordered: [facility] Hospital Care/Day Moderate 35 Minutes 28122 2. Acute respiratory failure (J96.00: Acute respiratory failure, unspecified whether with hypoxia or hypercapnia) Status post intubation and on mechanical ventilator???status post extubated on 10/22/2024. Doing well on nasal cannula oxygen. Ordered: [facility] Hospital Care/Day Moderate 35 Minutes 15301 3. Endotracheally intubated (Z97.8: Presence of other specified devices) He was successfully extubated on 10/22/2024. Ordered: [facility] Hospital Care/Day Moderate 35 Minutes 14928 4. Seizure-like activity (R56.9: Unspecified convulsions) May be secondary to post syncopal seizure. Seen by neurologist???no antiepileptics needed. Ordered: [facility] Hospital Care/Day Moderate 35 Minutes 07085 5. Hypotension (I95.9: Hypotension, unspecified) Secondary to IV sedation. Was transiently treated with IV Levophed and IV fluid. The patient is off Levophed. Resolved. Ordered: [facility] Hospital Care/Day Moderate 35 Minutes 17235 6. Atrial fibrillation (I48.91: Unspecified atrial fibrillation) Chronic atrial fibrillation???status post pacemaker placement. Eliquis temporarily on hold with recent hematuria. Will restart once patient is able to tolerate orally. 7. Pacemaker (Z95.0: Presence of cardiac pacemaker) Secondary to sick sinus syndrome. Status post pacemaker check???normal. 8. Thrombocytopenia (D69.6: Thrombocytopenia, unspecified) Chronic. 9. Hematuria (R31.9: Hematuria, unspecified) Gross hematuria???present on admission. Was treated with continuous bladder irrigation. Resolved. Was seen by urologist. Will discontinue Brown catheter. Disposition: Pending speech evaluation and resumption of diet and oral medications. Physical therapy and Occupational Therapy evaluation for discharge planning. I ordered sputum culture. I discussed the diagnosis and plan of care with the patient at the bedside. Moderate level of MDM based on addressing above issues. This documentation was transcribed using voice recognition software. Several attempts were made to ensure accuracy. However inadvertent computerized kindergarten classroom teacher errors may be present. Grace Patterson. Hospitalist. Orders: Add on Test Incentive Spirometry Procalcitonin Restraint Initiate Non-Violent / Lru-Emnk-Cqzwgbsyjxh Behavior Restraint Monitoring Non-Violent / Non-Self- Destructive Behavior Restraint Progress Note Speech Language Pathology Swallow Eval; Evaluate Pt, Develop a Plan of Care & Implement Plan Sputum Culture Sputum Culture Subjective Seen and examined. He was successfully extubated on 10/22/2024. Complains of being thirsty. Buspirone patient has been coughing up thick secretions. Objective Vitals & Measurements T: 37 ???C(Axillary) TMIN: 37 ???C(Axillary) TMAX: 37.4 ???C(Axillary) HR: 103(Monitored) RR: 20 BP: 127/94 SpO2: 92% WT: 75.1 kg Intake & Output This visit (24 hour periods starting at 07:00 EST) 10/23/24 * 10/22/24 10/21/24 Total Summary Intake mL 10 422.36 2,926.23 Output mL -- 775 635 Fluid Balance 10 -352.64 2,291.23 Intake (6) Dextrose 5% with 0.9% NaCl intravenous solution 1,000 mL mL -- 355.02 2,688.8 Oral Intake mL -- -- -- fentanyl 1,000 mcg [50 mcg/hr] + Sodium Chloride 0.9% intravenous solution 100 mL mL -- 26.88 134.95 metoprolol mL -- 15 10 pantoprazole mL 10 10 10 propofol 1,000 mg [10 mcg/kg/min] + Generic Diluent 100 mL mL -- 15.46 82.48 Total 10 422.36 2,926.23 Output (1) Urine Catheter mL -- 775 635 Total -- 775 635 Counts (0) * This column has not completed the indicated time period. Physical Exam General: alert, no acute distress, comfortable in bed on nasal cannula oxygen. Skin: warm, dry Head: no trauma, normocephalic Neck: Trachea midline, no adenopathy, no tenderness Eye: normal conjunctiva, sclera clear ENMT: TM's clear, oral mucosa moist, no pharyngeal erythema (more content not included)...[facility] on above:Result Comment: Electronically Signed By: GLENDY MAHONEY, Grace\.br\Date and Time Signed: 10/23/24 09:36 [id number] NoteCritical Care Progress Note Assessment/Plan Acute hypoxemic respiratory failure Unclear if this event was hypoxic, we will maintain ventilator at this time for patient protection Do not feel that this is a respiratory event at this time Plan: - Currently on 30% FiO2 PEEP 5 --> will extubate to NC - Titrate FiO2 for sats 89-94% - Continue bronchodilators - D/c sedation - Aspiration precautions - Encourage airway clearance and suctioning if necessary - Encourage IS and OOB VTE ppx: Heparin sq GI ppx: PPI 1. Unresponsiveness (R41.89: Other symptoms and signs involving cognitive functions and awareness) Unclear etiology Differentials: Hypoxia with seizure activity, underlying cardiac arrhythmia Prior echocardiography does show underlying pulmonary hypertension CTA of head and neck with patent vessels Plan: - Neurology following - Did discuss this case directly with Dr. Neely --> Pacer interrogation did not reveal any malignant ventricular arrhythmias or rapid rates surrounding the last few days - Plan for echocardiogram for right sided evaluation on Tuesday Orders: heparin, 5,000 unit(s) = 1 mL, Injection, SubCutaneous, BID for 30 day(s), Stop date 11/21/24 20:59:00 EST, Routine, Start date 10/22/24 21:00:00 EST, 10/22/24 11:30:00 EST Extubation Oxygen Protocol XR Chest Single View This patient has a high probability of sudden, clinically significant deterioration, which requiresthe highest level of LIP preparedness to intervene urgently. I managed/supervised life or organ supporting interventions that required frequent LIP assessment. I devoted my full attention to the direct care of this patient for the amount of time indicated below. Time I spent with family or surrogate(s) is included only if the patient was incapable of providing the necessary information or participating in medical decision making. Critical care documentation: The patient has the following organ/system impairments: Acute hypoxemic respiratory failure, Acute metabolic encephalopathy Time spent providing critical services: 32 minutes. Time devoted to teaching and to any procedures I billed separately is not included. Subjective Pt is an 84y M with past medical history significant for persistent atrial fibrillation (on plavix), coronary artery disease (with CABG x 3 vessels in May 2022, he did have his left atrial appendage ligated at that time), severe mitral and tricuspid regurgitation, sick sinus syndrome status post permanent pacemaker, and bladder cancer who presented to the ED on 10/19 with concerns for strokeversus syncope. At his baseline, he is typically alert and oriented x 4, family also reports that he is an incredibly active 84-year-old. Apparently last known well was at 10 AM where he had some garbled speech while on the phone but had resolved. He had went out to the garage for a few minutes andupon his return, his reports he became a wax statue, where he was stuck in 1 position and did not respond to her voice commands. She saw that his knees were about to buckle and she wrapped herarms around his waist and lowered him to the floor. They report he did not sustain any traumatic injury at that time. She immediately called 911. He did have some time with sonorous respirations. Upon arrival with EMS, he was able to follow commands but did not open his eyes. En route there was questionable seizure activity. His daughter had reported an event similar to his current where he did have a seizure, he was evaluated by neurology and did take Keppra for a year. They had determined it w as related to hypoxia as well as the time he has been diagnosed with sick sinus syndrome and received a pacemaker. He was treated with Valium per prehospital providers. Glucose level 156. He presented as a stroke alert in the emergency department and his GCS was only 3. It was elected to secure hisairway with intubation. CT of brain negative at this time, CTA of the head and neck also reveal patency of cerebral vessels and carotids. EKG with atrial fibrillation and PVCs present. Pacemaker inserted in August 2021. Most recent pacer check was completed in May 2024. This did show 26 different events with high ventricular rates, the most prominent lasting 39 seconds which appeared to be in RVR response. He was programmed to VVIR at that time. Most recent echo August 2022 mentioned moderate left ventricular hypertrophy,biatrial severe dilation, a severe elevation of RVSP at 66. LVEF 50- 55%. Aside from thrombocytopenia, his lab values have been unremarkable. He was admitted to the primary medicine team to the intensive care unit, pulmonary consulted for ventilator management. 10/20: Overnight he did have some issues with hematuria requiring CBI insertion and urology consult.He was being connected to EEG monitoring on my exam, he does open eyes and nod head to questions appropriately. He is on minimal ventilator settings. He also had required mild dosing of norepineph (more content not included)...[id number] NoteConsultation Note Chief Complaint pt. via [facility], unresponsive. Reason for Consultation Ventilator management History of Present Illness This is an 84-year-old male that prior to this morning he was in his usual state of health that hadpresented to the emergency department earlier today for concern of stroke versus syncope. At his baseline, he is typically alert and oriented x 4, family also reports that he is an incredibly active 84-year-old. Apparently last known well was at 10 AM where he had some garbled speech while on the phone but had resolved. He had went out to the garage for a few minutes and upon his return, his wifereports he became a wax statue, where he was stuck in 1 position and did not respond to her voicecommands. She saw that his knees were about to buckle and she wrapped her arms around his waist andlowered him to the floor. They report he did not sustain any traumatic injury at that time. She immediately called 911. He did have some time with sonorous respirations. Upon arrival with EMS, he wasable to follow commands but did not open his eyes. En route there was questionable seizure activity. His daughter had reported an event similar to his current where he did have a seizure, he was evaluated by neurology and did take Keppra for a year. They had determined it was related to hypoxia as well as the time he has been diagnosed with sick sinus syndrome and received a pacemaker. He was treated with Valium per prehospital providers. Glucose level 156. He presented as a stroke alert in theemergency department and his GCS was only 3. It was elected to secure his airway with intubation. CT of brain negative at this time, CTA of the head and neck also reveal patency of cerebral vessels and carotids. History is significant for persistent atrial fibrillation (on plavix), coronary artery disease (with CABG x 3 vessels in May 2022, he did have his left atrial appendage ligated at that time), severe mitral and tricuspid regurgitation, sick sinus syndrome status post permanent pacemaker, and bladder cancer. EKG with atrial fibrillation and PVCs present. Pacemaker inserted in August 2021. Most recent pacer check was completed in May 2024. This did show 26 different events with high ventricular rates, the most prominent lasting 39 seconds which appeared to be in RVR response. He was programmed to VVIR at that time. Most recent echo August 2022 mentioned moderate left ventricular hypertrophy,biatrial severe dilation, a severe elevation of RVSP at 66. LVEF 50- 55%. Aside from thrombocytopenia, his lab values have been unremarkable. He was admitted to the primary medicine team to the intensive care unit, pulmonary consulted for ventilator management. Review of Systems Constitutional: no fever, no chills, no sweats, no weakness Skin: no Jaundice, no rash, no lesions, nopetechiae ENMT: no ear pain, no sore throat, no congestion, no hoarseness Respiratory: no shortness of breath, no cough, no orthopnea, no wheezing Cardiovascular: no chest pain, no palpitations, no edema Gastrointestinal: no nausea, no vomiting, no diarrhea, no GI bleeding Genitourinary: no dysuria, mild hematuria, no discharge, no pain Musculoskeletal: no back pain, no trauma Neurologic: no headache, no dizziness, no numbness, no weakness Psychiatric: no sleeping problems, no irritability, no mood swings/depression. Heme/Lymph: mild bleeding tendency, no bruising tendency, no petechiae, no swollen nodes Allergy/Immunologic: no seasonal allergies, no food allergies, no recurrent infections, no impairedimmunity Additional ROS info: Except as noted in the above Review of Systems and in the History of Present Illness all other systems have been reviewed and are negative or noncontributory. Physical Exam Vitals & Measurements T: 36.4 ???C(Tympanic) TMIN: 34.7 ???C(Tympanic) TMAX: 36.4 ???C(Tympanic) HR: 79(Monitored) RR: 16BP: 122/76 SpO2: 100% HT: 182 cm WT: 76.4 kg General: Sedated, no acute distress, well-nourished Skin: warm, dry Head: no trauma, normocephalic Neck: Trachea midline, no adenopathy Eye: normal conjunctiva, sclera clear ENMT: oral mucosa moist, no pharyngeal erythema or exudate, 7.[address] Cardiovascular: with underlying atrial fibrillation, occasional PVCs and ventricular paced beats, normal peripheral perfusion Respiratory: Lungs CTA, respirations ventilator assisted Chest wall: no deformity. Gastrointestinal: soft, non distended, large hiatal hernia present, soft to palpation without evidence of contents present. Extremities: no deformity, no trauma, bilateral soft wrist restraints, trace bilateral lower extremity edema Neurological: Sedated Images (10/19/2024 11:42 EST CTA Neck) Reason For Exam NEURO DEFICIT, ACUTE, STROKE SUSPECTED;Other (please specify) POWERSCRIBE REPORT IMPRESSION: NO EVIDENCE OF SIGNIFICANT STENOSIS OF NECK OR HEAD ARTERIES. CLINICAL HISTORY: NEURO DEFICIT, ACUTE, STRO (more content not included)... [facility] on [facility]:Result Comment: Electronically Signed By: Clair MAHONEY, Tayla Flower\.br\Date and Time Signed: 10/22/24 17:19 EST 10-22-2024 NoteProgress Note-Physician Basic Information The patient is a 84-year-old male who obsesses a neurological consult patient for episode of unresponsiveness and garbled speech. The patient has past medical history significant for paroxysmal atrial fibrillation status post watchman device placement, pacemaker placement, bladder cancer, coronary artery disease requiring coronary artery bypass grafting. The patient reportedly was in his normal state of health at approximately 9 AM document 5 the son when he developed garbled speech. This improved initially. The patient's then found him staring off into space and not responsive.. The patient was eased to the ground and EMS was called. The patient had some reported seizure-like activityat the scene and was given Versed by EMS. Patient was evaluated in the emergency room and was intubated do to airway protection. The patient had a CT scan of brain which did not reveal evidence of acute infarct or hemorrhage. The patient was admitted to the ICU. The patient has had no further seizure-like activity. The patient is currently intubated and sedated but does open eyes and follow commands. [1] [1] Assessment/Plan The patient is a 84-year-old male with a history of coronary artery disease, paroxysmal atrial fibrillation, bladder cancer, who was admitted to the hospital for possible seizure after an episode manifest as found staring off and unresponsive after an episode of slurred speech. 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 I cannot exclude a structural brain lesion contributed dating to a focal seizure disorder. I cannot completely exclude a provoked seizure from a underlying medical or metabolic process. I cannot exclude a vascular event such as cerebral ischemia or stroke from artery to artery embolus, cerebral artery thrombosis, or cardioembolic event contributing to patient's symptoms. The patient is following commands. Clinically stable. -Will continue to follow clinically with medical management -I discussed the case with the hospitalist [2] 1. Unresponsiveness (R41.89: Other symptoms and signs involving cognitive functions and awareness) 2. Acute respiratory failure (J96.00: Acute respiratory failure, unspecified whether with hypoxia or hypercapnia) 3. Endotracheally intubated (Z97.8: Presence of other specified devices) 4. Seizure-like activity (R56.9: Unspecified convulsions) 5. Atrial fibrillation (I48.91: Unspecified atrial fibrillation) 6. Pacemaker (Z95.0: Presence of cardiac pacemaker) 7. Thrombocytopenia (D69.6: Thrombocytopenia, unspecified) 8. Hematuria (R31.9: Hematuria, unspecified) Subjective Review of Systems Constitutional: no fever, no chills, no sweats, no weakness Respiratory: no shortness of breath, no cough, no orthopnea, no wheezing Cardiovascular: no chest pain, no palpitations, no edema Additional ROS info: Except as noted in the above Review of Systems and in the History of Present Illness all other systems have been reviewed and are negative or noncontributory. [3] [3] Objective Vitals & Measurements T: 36.4 ???C(Axillary) TMIN: 36.4 ???C(Axillary) TMAX: 37.5 ???C(Oral) HR: 89(Monitored) RR: 16 BP:106/53 SpO2: 98% WT: 77 kg Intake & Output This visit (24 hour periods starting at 07:00 EST) 10/22/24 * 10/21/24 10/20/24 Total Summary Intake mL -- 2,764.15 1,833.03 Output mL -- 635 1,290 Fluid Balance -- 2,129.15 543.03 Intake (9) Dextrose 5% with 0.9% NaCl intravenous solution 1,000 mL mL -- 2,538.8 1,296.21 Generic Diluent, albumin human mL -- -- 100 Lactated Ringers Injection 1,000 mL mL -- -- 138.96 Oral Intake mL -- -- -- fentanyl 1,000 mcg [50 mcg/hr] + Sodium Chloride 0.9% intravenous solution 100 mL mL -- 127.45 151.39 metoprolol mL -- 10 -- norepinephrine 8 mg [0.05 mcg/kg/min] + Dextrose 5% in Water intravenous solution 250 mL mL -- -- 57.31 pantoprazole mL -- 10 10 propofol 1,000 mg [10 mcg/kg/min] + Generic Diluent 100 mL mL -- 77.9 79.16 Total -- 2,764.15 1,833.03 Output (1) Urine Catheter mL -- 635 1,290 Total -- 635 1,290 Counts (0) * This column has not completed the indicated time period. Physical Exam The patient is Intubated and sedated. The patient follows simple commands including showing right thumb, and moving extremities when asked. Cranial nerves: Extraocular movements intact, face is symmetric, hearing grossly intact. Motor exam the patient moves all 4 extremities antigravity and equally. Deep tendon reflexes are 1+and symmetric Sensory exam the patient localizes tactile stimulation. [4] Lab Results WBC: 5.6 E9/L (10/22/24 05:25:00) RBC: 3.4 E12/L Low (10/22/24 05:25:00) HGB: 10.5 gm/dL Low (10/22/24 05:25:00) Hct: 30.8 % Low (10/22/24 05:25:00) MCV: 92.2 fL (10/22/24 05:25:00) MCH: 3 (more content not included)...[facility] [place]Comment on [facility]:Result Comment: Electronically Signed By: Gabbie Martini RN\.br\Date and Time Signed: 10/22/24 09:52 EST\.br\Electronically Co-Signed By: Sarah Monroy MD\.br\Date and Time Co-Signed: 10/22/24 14:04 [id number] NoteProgress Note-Physician Assessment/Plan 84-year-old male with history of atrial fibrillation status post left atrial appendage ligation May 2022 on Plavix, coronary artery disease status post CABG x 3 vessels, severe mitral regurgitation status post repair, sick sinus syndrome status post pacemaker placement, bladder cancer status posttreatment in remission, BPH with LUTS, GERD presented with unresponsiveness followed by seizure like activity and was admitted with unresponsiveness, acute respiratory failure requiring endotracheal intubation and mechanical ventilator, hematuria. 1. Unresponsiveness (R41.89: Other symptoms and signs involving cognitive functions and awareness) Unresponsiveness???present on admission. Etiology unknown. May be secondary to transient cardiac arrhythmia versus seizure. Neurology consult reviewed by me. I appreciate and agree with recommendations. EEG Unable to do MRI of the brain secondary to pacemaker placement. Ordered: [facility] Hospital Care/Day High 50 Minutes 56573 2. Acute respiratory failure (J96.00: Acute respiratory failure, unspecified whether with hypoxia or hypercapnia) Patient unable to protect his airways and was intubated in the emergency room. Continue with spontaneous breathing trial. Pulmonology is following and hopefully patient will be extubated today. Ordered: [facility] Hospital Care/Day High 50 Minutes [id number] 3. Endotracheally intubated (Z97.8: Presence of other specified devices) Supportive care. Pulmonology is following. Ordered: [facility] Hospital Care/Day High 50 Minutes 53699 4. Seizure-like activity (R56.9: Unspecified convulsions) May be secondary to post syncopal seizure. Seen by neurologist???no antiepileptics needed. Ordered: [facility] Hospital Care/Day High 50 Minutes [id number] 5. Hypotension (I95.9: Hypotension, unspecified) Secondary to IV sedation. Was transiently treated with Levophed. Levophed was weaned off. Ordered: [facility] Hospital Care/Day High 50 Minutes 25350 6. Atrial fibrillation (I48.91: Unspecified atrial fibrillation) Chronic atrial fibrillation???status post pacemaker placement. Eliquis temporarily on hold with recent hematuria. 7. Pacemaker (Z95.0: Presence of cardiac pacemaker) Secondary to sick sinus syndrome. Pacemaker check???normal. 8. Thrombocytopenia (D69.6: Thrombocytopenia, unspecified) Chronic. Supportive care. 9. Hematuria (R31.9: Hematuria, unspecified) Gross hematuria???present on admission. Seen by urologist. Was treated with continuous bladder irrigation. Resolved. Maintain Brown catheter until mentation is back to normal. Disposition: Pending extubation. I discussed the diagnosis and plan of care with the patient at the bedside. High Level of MDM based on addressing above issues. This documentation was transcribed using voice recognition software. Several attempts were made to ensure accuracy. However inadvertent computerized kindergarten classroom teacher errors may be present. Grace Patterson. Hospitalist. Orders: Add on Test Procalcitonin Restraint Evaluate Need to Continue After 24 Hours Restraint Initiate Non-Violent / [id number]-Emlddsbcqsm Behavior Restraint Monitoring Non-Violent / Non-Self- Destructive Behavior Restraint Progress Note Subjective Seen and examined. No events reported last night. Objective Intake & Output This visit (24 hour periods starting at 07:00 EST) 10/22/24 * 10/21/24 10/20/24 Total Summary Intake mL 407.36 2,926.23 1,833.03 Output mL 150 635 1,290 Fluid Balance 257.36 2,291.23 543.03 Intake (9) Dextrose 5% with 0.9% NaCl intravenous solution 1,000 mL mL 355.02 2,688.8 1,296.21 Generic Diluent, albumin human mL -- -- 100 Lactated Ringers Injection 1,000 mL mL -- -- 138.96 Oral Intake mL -- -- -- fentanyl 1,000 mcg [50 mcg/hr] + Sodium Chloride 0.9% intravenous solution 100 mL mL 26.88 134.95 151.39 metoprolol mL -- 10 -- norepinephrine 8 mg [0.05 mcg/kg/min] + Dextrose 5% in Water intravenous solution 250 mL mL -- -- 57.31 pantoprazole mL 10 10 10 propofol 1,000 mg [10 mcg/kg/min] + Generic Diluent 100 mL mL 15.46 82.48 79.16 Total 407.36 2,926.23 1,833.03 Output (1) Urine Catheter mL 150 635 1,290 Total 150 635 1,290 Counts (0) * This column has not completed the indicated time period. Physical Exam General: Mildly sedated and on mechanical ventilator. Skin: warm, dry Head: no trauma, normocephalic Neck: Trachea midline, no adenopathy, no tenderness Eye: normal conjunctiva, sclera clear ENMT: TM's clear, oral mucosa moist, no pharyngeal erythema or exudate, ET tube in place and on mechanical ventilator. Cardiovascular: regular rate and rhythm, normal peripheral perfusion Respiratory: Lungs CTA, respirations non labored Chest wall: no deformity. Gastrointestinal: soft, non distended, no tenderness, no guarding. (more content not included)...[facility] [place]:Result Comment: Electronically Signed By: GLENDY MAHONEY, Grace\.br\Date and Time Signed: 10/22/24 12:01 [id number] NoteProgress Note-Physician Assessment/Plan 84-year-old male admitted for unresponsiveness and possible seizure-like activity. He was intubatedin the emergency room because he maintained unresponsiveness. Patient has a history of A-fib statuspost left atrial appendage ligation May 2022 and takes Plavix only, CAD with three-vessel bypass, severe MR status post surgical repair, severe TR, sick sinus syndrome with a pacemaker, bladdercancer in remission, BPH with LUTS, and GERD. 1. Unresponsiveness (R41.89: Other symptoms and signs involving cognitive functions and awareness) Current vent settings this morning are assist-control, tidal volume 500, FiO2 40%, rate 60 with a PEEP of 5 EEG per neurology shows slowing but he was on sedating meds; if he does have another seizure-like event neurology said he can get another EEG Unable to do MRI given his pacemaker 2. Acute respiratory failure (J96.00: Acute respiratory failure, unspecified whether with hypoxia or hypercapnia) Vent settings as noted above DuoNeb 4 times daily Will attempt spontaneous breathing trial today; on minimal sedation 3. Endotracheally intubated (Z97.8: Presence of other specified devices) See 1 and 2 above 4. Seizure-like activity (R56.9: Unspecified convulsions) EEG shows slowing but he was on sedating meds when performed yesterday 5. Atrial fibrillation (I48.91: Unspecified atrial fibrillation) I added IV Lopressor 5 mg every 6 hours as needed Held anticoagulation therapy due to bleeding when he first got to the ICU and he was bleeding from his IV and trach and penis the hematuria 6. Pacemaker (Z95.0: Presence of cardiac pacemaker) Pacemaker check was fine 7. Thrombocytopenia (D69.6: Thrombocytopenia, unspecified) Platelets at 100,000; off anticoagulant therapy for now 8. Hematuria (R31.9: Hematuria, unspecified) Appreciate urology consult Resolved Off CBI Maintain Brown catheter until patient's mentation improves to the point where the catheter can be removed Orders: metoprolol, 5 mg = 5 mL, Injection, IV Push, q6hr PRN Other (see comment), Routine, Start date 10/21/24 9:42:00 EST, 10/21/24 9:42:00 EST Basic Metabolic Panel CBC w/ Auto Diff CBC w/ Auto Diff Comprehensive Metabolic Panel eGFR Restraint Evaluate Need to Continue After 24 Hours Restraint Evaluate Need to Continue After 24 Hours Restraint Initiate Non-Violent / Cuu-Gksk-Wohwfomlitx Behavior Restraint Monitoring Non-Violent / Non-Self- Destructive Behavior Restraint Monitoring Non-Violent / Non-Self- Destructive Behavior Restraint Progress Note Saline Lock Convert From IV Ventilator Settings VTE Risk Assessment PLAN: 1. Will attempt spontaneous breathing trial today 2. IV Lopressor 5 mg every 6 hours as needed 3. DuoNeb 4 times daily 4. Echocardiogram for tomorrow morning per cardiology recommendations 5. On minimal sedation 6. DVT prophylaxis with SCDs 7. Ulcer prophylaxis with IV PPI Family is concerned because the last time he was ventilated, he ended up with a Dobbhoff for 30 days. He has had esophageal strictures requiring dilatations in the past. My concern is that he has no OG???NG tube and it was not attempted because of bleeding from his ET tube on first day of admission. Subjective Patient seen and examined earlier today Sedated on the vent Overnight he required more IV fluids; nursing said that he had 190 out on fast food shift lead only despite having a Brown Heart rate up and down plus blood pressure is up-and-down as well Objective Vitals & Measurements T: 37.5 ???C(Oral) TMIN: 36.2 ???C(Axillary) TMAX: 37.5 ???C(Oral) HR: 87(Monitored) RR: 11(Total) BP: 98/64 SpO2: 98% WT: 73.5 kg Intake & Output This visit (24 hour periods starting at 07:00 EST) 10/21/24 * 10/20/24 10/19/24 Total Summary Intake mL 491.32 1,833.03 1,000.8 Output mL 155 1,290 775 Fluid Balance 336.32 543.03 225.8 Intake (11) Dextrose 5% with 0.9% NaCl intravenous solution 1,000 mL mL 440.05 1,296.21 -- Generic Diluent, albumin human mL -- 100 -- Lactated Ringers Injection 1,000 mL mL -- 138.96 750 Oral Intake mL -- -- -- etomidate mL -- -- 15 fentanyl 1,000 mcg [50 mcg/hr] + Sodium Chloride 0.9% intravenous solution 100 mL mL 22.51 151.39 121.61 metoprolol mL 5 -- -- norepinephrine 8 mg [0.05 mcg/kg/min] + Dextrose 5% in Water intravenous solution 250 mL mL -- 57.31 30.68 pantoprazole mL 10 10 -- propofol 1,000 mg [10 mcg/kg/min] + Generic Diluent 100 mL mL 13.76 79.16 73.51 rocuronium mL -- -- 10 Total 491.32 1,833.03 1,000.8 Output (2) Urine Catheter mL 155 1,290 770 Urine Output Initial mL -- -- 5 Total 155 1,290 775 Counts (0) * This column has not completed the indicated time period. Physical Exam Constitutional: Sedated on the vent Head/neck: Neck supple with no palpable lymphadenopathy, bruits or mas (more content not included)...[facility] [place]:Result Comment: Electronically Signed By: Ángel Ely DO\Date and Time Signed: 10/21/24 13:24 [id number] NoteProgress Note-Physician Basic Information `The patient is a 84-year-old male who obsesses a neurological consult patient for episode of unresponsiveness and garbled speech. The patient has past medical history significant for paroxysmal atrial fibrillation status post watchman device placement, pacemaker placement, bladder cancer, coronaryartery disease requiring coronary artery bypass grafting. The patient reportedly was in his normal state of health at approximately 9 AM document 5 the son when he developed garbled speech. This improved initially. The patient's then found him staring off into space and not responsive.. The patient was eased to the ground and EMS was called. The patient had some reported seizure-like activity at the scene and was given Versed by EMS. Patient was evaluated in the emergency room and was intubated do to airway protection. The patient had a CT scan of brain which did not reveal evidence of acute infarct or hemorrhage. The patient was admitted to the ICU. The patient has had no further seizure-like activity. The patient is currently intubated and sedated but does open eyes and follow commands. [1] Assessment/Plan The patient is a 84-year-old male with a history of coronary artery disease, paroxysmal atrial fibrillation, bladder cancer, who was admitted to the hospital for possible seizure after an episode manifest as found staring off and unresponsive after an episode of slurred speech. 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 I cannot exclude a structural brain lesion contributed dating to a focal seizure disorder. I cannot completely exclude a provoked seizure from a underlying medical or metabolic process. I cannot exclude a vascular event such as cerebral ischemia or stroke from artery to artery embolus, cerebral artery thrombosis, or cardioembolic event contributing to patient's symptoms. Given the high morbidity and mortality associated with seizure disorder the patient is admitted to the hospital for further workup and evaluation and neurological assessment. The patient is following commands. -WIll follow clinically with medical management -I have reviewed the available blood work to assess for a metabolic process which may have contributed to the patient's clinical episode and will consider further labs based on these results -I reviewed the EEG which does not reveal evidence of any epileptiform activity which may have contributed to the patient's clinical symptoms -. -I discussed the case with the hospitalist [2] 1. Unresponsiveness (R41.89: Other symptoms and signs involving cognitive functions and awareness) 2. Acute respiratory failure (J96.00: Acute respiratory failure, unspecified whether with hypoxia or hypercapnia) 3. Endotracheally intubated (Z97.8: Presence of other specified devices) 4. Seizure-like activity (R56.9: Unspecified convulsions) 5. Atrial fibrillation (I48.91: Unspecified atrial fibrillation) 6. Pacemaker (Z95.0: Presence of cardiac pacemaker) 7. Thrombocytopenia (D69.6: Thrombocytopenia, unspecified) 8. Hematuria (R31.9: Hematuria, unspecified) Subjective Review of Systems Constitutional: no fever, no chills, no sweats, no weakness Respiratory: no shortness of breath, no cough, no orthopnea, no wheezing Cardiovascular: no chest pain, no palpitations, no edema Additional ROS info: Except as noted in the above Review of Systems and in the History of Present Illness all other systems have been reviewed and are negative or noncontributory. [3] Objective Vitals & Measurements T: 36.4 ???C(Axillary) TMIN: 36.2 ???C(Axillary) TMAX: 37.5 ???C(Axillary) HR: 113(Monitored) RR: 16 BP: 92/65 SpO2: 98% WT: 73.5 kg Intake & Output This visit (24 hour periods starting at 07:00 EST) 10/20/24 * 10/19/24 10/18/24 Total Summary Intake mL 1,833.03 1,000.8 -- Output mL 1,290 775 -- Fluid Balance 543.03 225.8 -- Intake (10) Dextrose 5% with 0.9% NaCl intravenous solution 1,000 mL mL 1,296.21 -- -- Generic Diluent, albumin human mL 100 -- -- Lactated Ringers Injection 1,000 mL mL 138.96 750 -- Oral Intake mL -- -- -- etomidate mL -- 15 -- fentanyl 1,000 mcg [50 mcg/hr] + Sodium Chloride 0.9% intravenous solution 100 mL mL 151.39 121.61 -- norepinephrine 8 mg [0.05 mcg/kg/min] + Dextrose 5% in Water intravenous solution 250 mL mL 57.31 30.68 -- pantoprazole mL 10 -- -- propofol 1,000 mg [10 mcg/kg/min] + Generic Diluent 100 mL mL 79.16 73.51 -- rocuronium mL -- 10 -- Total 1,833.03 1,000.8 -- Output (2) Urine Catheter mL 1,290 770 -- Urine Output Initial mL -- 5 -- Total 1,290 775 -- Counts (0) * This column has not completed the indicated time period. Physical Exam The patient is Intubated and sedated. The patient follows simple commands in (more content not included)...[facility] [place]:Result Comment: Electronically Signed By: Brandon GARZA, Veronique Guillory\.br\Date and Time Signed: 10/21/24 06:45 EST\.br\Electronically Co-Signed By: Porfirio MAHONEY, Sarah\.br\Date and Time Co- Signed: 10/21/2507:57 [id number] NoteConsultation Note Chief Complaint Unresponsiveness Reason for Consultation Unresponsive, Garbled speech History of Present Illness `The patient is a 84-year-old male who obsesses a neurological consult patient for episode of unresponsiveness and garbled speech. The patient has past medical history significant for paroxysmal atrial fibrillation status post watchman device placement, pacemaker placement, bladder cancer, coronaryartery disease requiring coronary artery bypass grafting. The patient reportedly was in his normal state of health at approximately 9 AM document 5 the son when he developed garbled speech. This improved initially. The patient's then found him staring off into space and not responsive.. The patient was eased to the ground and EMS was called. The patient had some reported seizure-like activity at the scene and was given Versed by EMS. Patient was evaluated in the emergency room and was intubated do to airway protection. The patient had a CT scan of brain which did not reveal evidence of acute infarct or hemorrhage. The patient was admitted to the ICU. The patient has had no further seizure-like activity. The patient is currently intubated and sedated but does open eyes and follow commands. Review of Systems Constitutional: no fever, no chills, no sweats, no weakness Respiratory: no shortness of breath, no cough, no orthopnea, no wheezing Cardiovascular: no chest pain, no palpitations, no edema Additional ROS info: Except as noted in the above Review of Systems and in the History of Present Illness all other systems have been reviewed and are negative or noncontributory. Physical Exam Vitals & Measurements T: 37.0 ???C(Axillary) TMIN: 34.7 ???C(Tympanic) TMAX: 37.9 ???C(Rectal) HR: 107(Monitored) RR: 16 BP: 102/70 SpO2: 98% HT: 182 cm WT: 72.4 kg The patient is Intubated and sedated. The patient follows simple commands including showing right thumb, and moving extremities when asked. Cranial nerves: Extraocular movements intact, face is symmetric, hearing grossly intact. Motor exam the patient moves all 4 extremities antigravity and equally. Deep tendon reflexes are 1+and symmetric Sensory exam the patient localizes tactile stimulation. The neurological exam was performed by a healthcare professional which was witnessed and supervisedby me via video telemedicine visit consented to by the patient or appropriate patient community health program representative. Assessment/Plan The patient is a 84-year-old male with a history of coronary artery disease, paroxysmal atrial fibrillation, bladder cancer, who was admitted to the hospital for possible seizure after an episode manifest as found staring off and unresponsive after an episode of slurred speech. 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 I cannot exclude a structural brain lesion contributed dating to a focal seizure disorder. I cannot completely exclude a provoked seizure from a underlying medical or metabolic process. I cannot exclude a vascular event such as cerebral ischemia or stroke from artery to artery embolus, cerebral artery thrombosis, or cardioembolic event contributing to patient's symptoms. Given the high morbidity and mortality associated with seizure disorder the patient is admitted to the hospital for further workup and evaluation and neurological assessment. -I have reviewed the CT scan of the brain personally -The patient cannot have an MRI due to pacemaker placement -The patient did have CT angiogram of the head and neck which does not reveal evidence of large vessel intracranial or extracranial cerebral artery stenosis or occlusion. -I have reviewed the available blood work to assess for a metabolic process which may have contributed to the patient's clinical episode and will consider further labs based on these results -I recommend obtaining an EEG to assess for any epileptiform activity which may have contributed tothe patient's clinical symptoms -I counseled the patient's family on the possible diagnosis, prognosis, evaluation, and treatment options. I answered all questions. -I discussed the case with the hospitalist 1. Unresponsiveness (R41.89: Other symptoms and signs involving cognitive functions and awareness) 2. Acute respiratory failure (J96.00: Acute respiratory failure, unspecified whether with hypoxia or hypercapnia) 3. Endotracheally intubated (Z97.8: Presence of other specified devices) 4. Seizure-like activity (R56.9: Unspecified convulsions) 5. Atrial fibrillation (I48.91: Unspecified atrial fibrillation) 6. Pacemaker (Z95.0: Presence of cardiac pacemaker) 7. Thrombocytopenia (D69.6: Thrombocytopenia, unspecified) Problem List/Past Medical History Ongoing Atrial fibrillation Bladder cancer Bladder mass Bladder stones BPH with obstruction/lower urinary tract symptoms BPH without urinary obstruction Chronic GERD Coronary artery (more content not included)...[facility]:Result Comment: Electronically Signed By: Pati Wolf RN\.br\Date and Time Signed: 10/20/24 07:50EST\.br\Electronically Co-Signed By: Sarah Monroy MD\.br\Date and Time Co-Signed: 10/20/24 11:43 [id number] Hospital Discharge instructions Follow Up Care 10/19/2024 10:52:20 With:Sarah Monroy MD, NEU Address: [place] [id number] When:2 to 4 weeks [facility] 10-25-2024 History of Present illness Narrative* Gerardo Darden RN - 07/20/2024 8:45 AM EDT Radiology Service Progress Note DATE OF SERVICE: July 20, 2024 TIME: 8:48 AM PATIENT WEIGHT: 161LBS PATIENT IDENTITY VERIFICATION COMPLETED USING TWO (2) STANDARD IDENTIFIERS: Name and Date of confirmed by patient verbally. FALL SCREENING: Has the patient had 2 falls in the last year or 1 fall with injury or currently using an Ambulatory Assistive Device (Walker, Cane, Wheelchair, Crutches, etc.)? No PATIENT GENDER DATA: Male ALLERGIES: Reviewed and unchanged CONTRAST ALLERGY: No EXAM: CT -CONTRAST INDUCED NEPHROPATHY RISK FACTORS: Patient age > 60 years CREATININE: Creatinine Date Value Ref Range Status 07/20/2024 0.86 0.73 - 1.22 mg/dL Final 10/01/2022 0.86 0.73 - 1.22 mg/dL Final Estimated Glomerular Filtration Rate Date Value Ref Range Status 07/20/2024 86 >=60 mL/min/1.73m Final Comment: Estimated Glomerular Filtration Rate (eGFR) is calculated using the 2020 CKD-EPI creatinine equation. This equation utilizes serum creatinine, sex, and age as parameters. The creatinine assay has traceable calibration to isotope dilution- mass spectrometry. Refer to KDIGO guidelines for clinical interpretation. In patients with unstable renal function, e.g. those with acute kidney injury, the eGFRmay not accurately reflect actual GFR. P.O.C.T. RESULTS: POC done: Yes, See Lab Tab July 20, 2024 TREATMENT: N/A IV SITE: Ambulatory: A peripheral IV was started in the Left antecubital site with a Angio cath: 20gauge. IV SITE APPEARANCE: Clean,Dry and Intact SIGNATURE: Gerardo Darden RN PATIENT NAME: Bravo Arce DATE: July 20, 2024 TIME: 8:48 AM * Rand Akbar RT(R) - 07/20/2024 8:45 AM EDT Radiology Service Progress Note PATIENT NAME: Bravo Arce DATE OF SERVICE: July 20, 2024 TIME: 9:19 AM PATIENT IDENTITY VERIFICATION COMPLETED USING TWO (2) IDENTIFIERS: Name and Date of confirmedby patient verbally. FALL SCREENING: Has the patient had 2 falls in the last year or 1 fall with injury or currently using an Ambulatory Assistive Device (Walker, Cane, Wheelchair, Crutches, etc.)? No PATIENT GENDER DATA: Male PATIENT RELEVANT IMPLANT DATA REVIEWED: Not Applicable PATIENT PRESENTS WITH AN IMPLANTABLE OR ATTACHED OPTICAL LABORATORY MANAGER: No RADIOLOGY DEPARTMENT: CT; Exam(s) Completed: Urogram PERIPHERAL IV DATA: Site assessment: Clean,Dry and Intact, Site disposition Discontinued SIGNED BY: RT Meliton(R) July 20, 2024 9:19 AM documented in this [facility]10-25-2024 NoteHNO ID: [id number] Author: GERARDO DARDEN RN Service: ? Author Type: Registered Nurse Type: Progress Notes Filed: 07/20/2024 08:49 Note Text: Radiology Service Progress Note DATE OF SERVICE: July 20, 2024 TIME: 8:48 AM PATIENT WEIGHT: 161LBS PATIENT IDENTITY VERIFICATION COMPLETED USING TWO (2) STANDARD IDENTIFIERS: Name and Date of confirmed by patient verbally. FALL SCREENING: Has the patient had 2 falls in the last year or 1 fall with injury or currently using an Ambulatory Assistive Device (Walker, Cane, Wheelchair, Crutches, etc.)? No PATIENT GENDER DATA: Male ALLERGIES: Reviewed and unchanged CONTRAST ALLERGY: No EXAM: CT -CONTRAST INDUCED NEPHROPATHY RISK FACTORS: Patient age > 60 years CREATININE: Creatinine Date Value Ref Range Status 07/20/2024 0.86 0.73 - 1.22 mg/dL Final 10/01/2022 0.86 0.73 - 1.22 mg/dL Final Estimated Glomerular Filtration Rate Date Value Ref Range Status 07/20/2024 86 >=60 mL/min/1.73m? Final Comment: Estimated Glomerular Filtration Rate (eGFR) is calculated using the 2020 CKD-EPI creatinine equation. This equation utilizes serum creatinine, sex, and age as parameters. The creatinine assay has traceable calibration to isotope dilution-mass spectrometry. Refer to KDIGO guidelines for clinical interpretation. In patients with unstable renal function, e.g. those with acute kidney injury, the eGFR may not accurately reflect actual GFR. P.O.C.T. RESULTS: POC done: Yes, See Lab Tab July 20, 2024 TREATMENT: N/A IV SITE: Ambulatory: A peripheral IV was started in the Left antecubital site with a Angio cath: 20 gauge. IV SITE APPEARANCE: Clean,Dry and Intact SIGNATURE: Gerardo Darden RN PATIENT NAME: Bravo Arce DATE: July 20, 2024 TIME: 8:48 [facility]10-25-2024 NoteHNO ID: [id number] Author: RAND AKBAR RT(Porsha) Service: ? Author Type: Technologist Type: Progress Notes Filed: 07/20/2024 09:19 Note Text: Radiology Service Progress Note PATIENT NAME: Bravo Arce DATE OF SERVICE: July 20, 2024 TIME: 9:19 AM PATIENT IDENTITY VERIFICATION COMPLETED USING TWO (2) IDENTIFIERS: Name and Date of confirmed by patient verbally. FALL SCREENING: Has the patient had 2 falls in the last year or 1 fall with injury or currently using an Ambulatory Assistive Device (Walker, Cane, Wheelchair, Crutches, etc.)? No PATIENT GENDER DATA: Male PATIENT RELEVANT IMPLANT DATA REVIEWED: Not Applicable PATIENT PRESENTS WITH AN IMPLANTABLE OR ATTACHED OPTICAL LABORATORY MANAGER: No RADIOLOGY DEPARTMENT: CT; Exam(s) Completed: Urogram PERIPHERAL IV DATA: Site assessment: Clean,Dry and Intact, Site disposition Discontinued SIGNED BY: RT Meliton(R) July 20, 2024 9:19 [facility]10-18-2024 Evaluation note* Diagnosis Onset Date Resolution Status Admit Date Benign positional vertigo acute July 13, 2024 10:47am History of head and neck cancer acute July 13 10:47am [facility] Work Phone: [phone]) 225-607810-03-2024 NoteHNO ID: [id number] Author: ?, ?, ? Service: ? Author Type: ? Type: Progress Notes Filed: 06/28/2024 11:35 Note Text[facility] History of Present illness Narrative* Edith Alonzo - 06/28/2024 11:35 AM EDT done * Jose Garcia MD - 06/28/2024 9:45 AM EDT [place] [id number] AMBULATORY PROCEDURE NOTE NAME: Bravo Arce AGE: [age] year old CLINIC #: [id number] DATE: June 28, 2024 SURGEON: Chester Brown PROCEDURE: Cystoscopy ANESTHESIA: Lidocaine gel per urethra DIAGNOSIS: Bladder cancer Date of Initial Diagnosis: 04/2022 Tumor Stage of Initial Diagnosis: T1 Grade at Initial Diagnosis: high. Site of First Diagnosis: Bladder Any Recurrence? N/A Intravesical Treatments: TURBT 05/17 Date of Last Cysto: 01/05/2024 Date of Last Upper Tract Imaging: N/A SURGEON: Dr.Christopher Garcia INDICATION: Surveillance FINDINGS: Tumor present: No Urethra: Normal Prostate: Occlusive lateral lobes and obstructive median lobe Verumontanum: Open Urine cytology: Not sent PROCEDURE: After informed consent was obtained, the patient was taken to the endoscopy suite. A time out was performed where the patient and the procedure were identified in the presence of the Nursing and Surgical Staff. Patient was placed in supine position, prepped and draped in the standard sterile fashion. Lidocaine gel was placed per urethra for local anesthesia. Cystoscopy was then performed using a 17 F flexible cystoscope. Sterile technique was maintained throughout. Please refer to above for specific findings during this part of the procedure. After carefully and atraumatically inspecting the urethra, prostate, and bladder, the bladder was emptied and the cystoscope was removed. The patient tolerated the procedure well and there were no complications. Pt had severe bladder trabeculations. Several deep diver reticuli. ASSESSMENT/PLAN: - Schedule CT Urogram TATI. - Schedule cystoscopy in 6 months, and another cysto 6 months after that. - BPH Prescribe pt finasteride and tamsulosin The patient is seen and examined by Dr. Jose Garcia and the following reflects his/her service. Scribed by Chester Brown I agree with the Chief Complaint, ROS, and Past Histories independently gathered by the clinical net application support specialist including scribe and or medical student and or SARAVANAN and or resident or fellow and the remaining scribed note accurately describes my personal service to the patient. Jose Garcia MD, MS [facility] * Santosh Staples RN - 06/28/2024 9:33 AM EDT UNIVERSAL PROTOCOL / SAFETY CHECKLIST Procedure to be Performed: Cystoscopy Sign In: A Moment of CARE was completed. Personnel directly involved with the procedure wore the appropriate PPE (Personal Protective Equipment). No special equipment needed. Patient/Surrogate Stated/Verified: PATIENT VERIFIED(optional for EMERGENT procedures): Patient name, Date of , Relevant allergies, and The intended procedure Time Out Communication: Intended patient and procedure match the source documents. Consent documented and matches the intended procedure. Relevant labs, photos, and/or imaging studies have been reviewed. No correct side/site applicable for marking and visibility. Medications required for procedure verified. Fire risk assessed and interventions discussed. No implant(s) inserted. Sign Out: SIGN OUT (optional for EMERGENT procedures): No specimen collected. All instruments, equipment, possible retained foreign bodies accounted for. Post-procedure follow-up management communicated and Plan of Care Visit completed when applicable. Santosh Staples RN documented in this encounterRiver[facility] Institute10-03-2024 NoteHNO ID: [id number] Author: JOSE GARCIA MD Service: ? Author Type: Physician Type: Progress Notes Filed: 07/18/2024 11:39 Note Text: [place] [address] AMBULATORY PROCEDURE NOTE NAME: Bravo Arce AGE: [age] year old CLINIC #: [id number] DATE: June 28, 2024 SURGEON: Chester Brown PROCEDURE: Cystoscopy ANESTHESIA: Lidocaine gel per urethra DIAGNOSIS: Bladder cancer Date of Initial Diagnosis: 04/2022 Tumor Stage of Initial Diagnosis: T1 Grade at Initial Diagnosis: high. Site of First Diagnosis: Bladder Any Recurrence? N/A Intravesical Treatments: TURBT 05/17 Date of Last Cysto: 01/05/2024 Date of Last Upper Tract Imaging: N/A SURGEON: Dr.Christopher Garcia INDICATION: Surveillance FINDINGS: Tumor present: No Urethra: Normal Prostate: Occlusive lateral lobes and obstructive median lobe Verumontanum: Open Urine cytology: Not sent PROCEDURE: After informed consent was obtained, the patient was taken to the endoscopy suite. A time out was performed where the patient and the procedure were identified in the presence of the Nursing and Surgical Staff. Patient was placed in supine position, prepped and draped in the standard sterile fashion. Lidocaine gel was placed per urethra for local anesthesia. Cystoscopy was then performed using a 17 F flexible cystoscope. Sterile technique was maintained throughout. Please refer to above for specific findings during this part of the procedure. After carefully and atraumatically inspecting the urethra, prostate, and bladder, the bladder was emptied and the cystoscope was removed. The patient tolerated the procedure well and there were no complications. Pt had severe bladder trabeculations. Several deep diver reticuli. ASSESSMENT/PLAN: - Schedule CT Urogram TATI. - Schedule cystoscopy in 6 months, and another cysto 6 months after that. - BPH Prescribe pt finasteride and tamsulosin The patient is seen and examined by Dr. Jose Garcia and the following reflects his/her service. Scribed by Chester Brown I agree with the Chief Complaint, ROS, and Past Histories independently gathered by the clinical net application support specialist including scribe and or medical student and or SARAVANAN and or resident or fellow and the remaining scribed note accurately describes my personal service to the patient. Jose Garcia MD, MS [facility]10-03-2024 NoteHNO ID: [id number] Author: SANTOSH STAPLES RN Service: ? Author Type: Registered Nurse Type: Progress Notes Filed: 06/28/2024 10:16 Note Text: UNIVERSAL PROTOCOL / SAFETY CHECKLIST Procedure to be Performed: Cystoscopy Sign In: A Moment of CARE was completed. Personnel directly involved with the procedure wore the appropriate PPE (Personal Protective Equipment). No special equipment needed. Patient/Surrogate Stated/Verified: PATIENT VERIFIED(optional for EMERGENT procedures): Patient name, Date of , Relevant allergies, and The intended procedure Time Out Communication: Intended patient and procedure match the source documents. Consent documented and matches the intended procedure. Relevant labs, photos, and/or imaging studies have been reviewed. No correct side/site applicable for marking and visibility. Medications required for procedure verified. Fire risk assessed and interventions discussed. No implant(s) inserted. Sign Out: SIGN OUT (optional for EMERGENT procedures): No specimen collected. All instruments, equipment, possible retained foreign bodies accounted for. Post-procedure follow-up management communicated and Plan of Care Visit completed when applicable. [facility]osh [facility]ples [facility] Nurse Note* Santosh Staples RN - 06/28/2024 9:32 AM EDT Actual procedure/procedure scheduled: Yes Performing provider/scheduled provider: Yes Patient was roomed in: Q9- 05 Web Designer Developer offered: at bedside Patient arrived in the room at: 0936 Patient ready for procedure: 0949 The procedure started at ( Time Only): 1001 The procedure ended at: 1004 Was the procedure delayed: Yes: Provider late: Provider with other patient on Q9 and Nursing/caregiver late The patient left the procedure room at: 1020 Santosh Staples RN PRE PROCEDURE ASSESSMENT- Cysto Procedure Indication: Cystoscopy Latex Allergy: No Allergies reviewed and updated. Yes Pre-Procedure Vital Signs: BP: 153/116 Pulse: 75 Heart valve replacement: Yes Joint replacement: Yes Back Office UA otained: yes PROCEDURE PREP-Cysto Patient ID with two(2)identifiers verified by: Santosh Staples RN Pre-Procedure Antibiotics: None taken at home nor prior to procedure Patient Prep: Betadine Scrub to perineum and placement of Sterile Drape. COMPLETED Anesthetic Given:Lido-jet given by UNIVERSAL PROTOCOL / SAFETY CHECKLIST Procedure to be performed: Cystoscopy Sign in Communication: Completed Time Out: Team Confirms the Correct Patient, Correct Procedure, Correct Site and Site Marking, Correct Position (if applicable). Sign Out Discussion: Completed Santosh Staples RN POST PROCEDURE NURSE ASSESSMENT Present along with physician during procedure exam. Santosh Staples RN Instruction sheet given and reviewed and patient verbalizes understanding: yes Post Procedure Antibiotic: none Current pain intensity is 0 on a 0-10 pain scale. Post procedure BP: 152/84 P:69 Santosh Staples RN AMBULATORY PATIENT EDUCATION THE FOLLOWING WAS EVALUATED Motivation To Learn: Interested Family/Significant Other Support: at bedside Cognitive Ability: Alert/Oriented Method of Instruction: Individual instruction Written instruction/Handouts Verbal instruction The Following Influencing Factors Were Barriers To This Education Session: None The Following Physical Limitations Were Barriers To This Education Session: None Instruction Provided To: Patient Digital Service Engineer Present: not applicable Discipline: Nursing Learning Topic: SURVIVAL SKILLS: Complication Prevention Symptom Management Patient Evaluation: Verbalizes understanding: Yes Supplemental Material Given: Written Material Instructed By Santosh Staples RN In Department Urology . [facility]10-03-[facility] Nurse Note* Santosh Staples RN - 06/28/2024 9:32 AM EDT Actual procedure/procedure scheduled: Yes Performing provider/scheduled provider: Yes Patient was roomed in: Q9- 05 Web Designer Developer offered: at bedside Patient arrived in the room at: 0936 Patient ready for procedure: 0949 The procedure started at ( Time Only): 1001 The procedure ended at: 1004 Was the procedure delayed: Yes: Provider late: Provider with other patient on Q9 and Nursing/caregiver late The patient left the procedure room at: 1020 Santosh Staples RN PRE PROCEDURE ASSESSMENT- Cysto Procedure Indication: Cystoscopy Latex Allergy: No Allergies reviewed and updated. Yes Pre-Procedure Vital Signs: BP: 153/116 Pulse: 75 Heart valve replacement: Yes Joint replacement: Yes Back Office UA otained: yes PROCEDURE PREP-Cysto Patient ID with two(2)identifiers verified by: Santosh Staples RN Pre-Procedure Antibiotics: None taken at home nor prior to procedure Patient Prep: Betadine Scrub to perineum and placement of Sterile Drape. COMPLETED Anesthetic Given:Lido-jet given by UNIVERSAL PROTOCOL / SAFETY CHECKLIST Procedure to be performed: Cystoscopy Sign in Communication: Completed Time Out: Team Confirms the Correct Patient, Correct Procedure, Correct Site and Site Marking, Correct Position (if applicable). Sign Out Discussion: Completed Santosh Staples RN POST PROCEDURE NURSE ASSESSMENT Present along with physician during procedure exam. Santosh Staples RN Instruction sheet given and reviewed and patient verbalizes understanding: yes Post Procedure Antibiotic: none Current pain intensity is 0 on a 0-10 pain scale. Post procedure BP: 152/84 P:69 Santosh Staples RN AMBULATORY PATIENT EDUCATION THE FOLLOWING WAS EVALUATED Motivation To Learn: Interested Family/Significant Other Support: at bedside Cognitive Ability: Alert/Oriented Method of Instruction: Individual instruction Written instruction/Handouts Verbal instruction The Following Influencing Factors Were Barriers To This Education Session: None The Following Physical Limitations Were Barriers To This Education Session: None Instruction Provided To: Patient Digital Service Engineer Present: not applicable Discipline: Nursing Learning Topic: SURVIVAL SKILLS: Complication Prevention Symptom Management Patient Evaluation: Verbalizes understanding: Yes Supplemental Material Given: Written Material Instructed By Santosh Staples RN In Department Urology . 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 There is no evidence of any tumor recurrence. Ongoing dysphagia. He had a modified barium swallow that showed a definite issue. 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 He is to follow- up with the swallowing therapy. I will see him in 6 months. 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 On December 21, 2017 he underwent surgical excision. He had excision ofthe skin, parotidectomy, and neck dissection. He was found to have more skin involvement than we thought. The pathology showed squamous cell carcinoma involving the parotid and adjacent tissues. The margins were negative. He also had 3 positive nodes. He completed his radiation therapy in February 2018. He had a TSH in July 2023 was normal. He also had a chest x-ray in July 2023 which was negative. He has had some issues with the dysphagia for quite some time but it seems to be getting worse. He gets things caught in his throat. He underwent a modified barium swallow in October 2023. 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 He got some swallowing therapy at home but he does not believe that it did anything for him. He is still able to manage. Physical Exam Palpation of the parotid, neck, and thyroid field fails to show any worrisome masses or adenopathies. More specifically I cannot appreciate anything worrisome on the treatment side. Examination of the oral cavity and oropharynx is negative. He does have significant dryness. A flexible laryngoscopy was carried out. Under topical Xylocaine and Kush- Synephrine the scope was introduced through the nostril. The nasopharynx, base of tongue, hypopharynx, and larynx are visualized. The vocal cords are normally mobile. There is no pooling of secretions in the piriform sinuses. There is no evidence of any mucosal lesions. There is some minimal dryness. The ear examination shows impacted cerumen in the left ear which was addressed with a small instrument. documented in this [facility] Work Phone: 1(328) 241-970204-11-2024 History of Present illness Narrative* Jose Garcia MD - 01/05/2024 9:15 AM EDT [place] [address] AMBULATORY PROCEDURE NOTE NAME: Bravo Arce AGE: [age] year old CLINIC #: [id number] DATE: January 05, 2024 Date of Initial Diagnosis: 04/2022 Tumor Stage of Initial Diagnosis: T1 Grade at Initial Diagnosis: high. Site of First Diagnosis: Bladder Any Recurrence? N/A Intravesical Treatments: TURBT 05/17 Date of Last Cysto: 10/27/2023 Date of Last Upper Tract Imaging: N/A SURGEON: Dr.Christopher Garcia PROCEDURE: Cystoscopy ANESTHESIA: Lidocaine gel per urethra DIAGNOSIS: Bladder cancer, Hx of bladder stones and recurrent UTIs INDICATION: Surveillance FINDINGS: Tumor present: No Urethra: Normal Prostate: Occlusive lateral lobes, bladder was very trabeculated, bladdder stones Verumontanum: Open Urine cytology: Not sent PROCEDURE: After informed consent was obtained, the patient was taken to the endoscopy suite. A time out was performed where the patient and the procedure were identified in the presence of the Nursing and Surgical Staff. Patient was placed in supine position, prepped and draped in the standard sterile fashion. Lidocaine gel was placed per urethra for local anesthesia. Cystoscopy was then performed using a 17 F flexible cystoscope. Sterile technique was maintained throughout. Please refer to above for specific findings during this part of the procedure. After carefully and atraumatically inspecting the urethra, prostate, and bladder, the bladder was emptied and the cystoscope was removed. The patient tolerated the procedure well and there were no complications. ASSESSMENT/PLAN: 1) Bladder Cancer stage T1 high grade initially diagnosed in CT urogram done locally as soon as he can Plan for repeat cystoscopy in May 2) Bladder stone/ recurrent UTI's Pt reports an episode of UTI which occurred around [facility], completed antibiotics course ATTESTATION: By signing my name below, IAlana, attest that this documentation has been prepared under thedirection and in the presence of Jose Garcia MD. Electronically signed:Alana RobersonEmily, January 05, 2024 9:15 AM I agree with the Chief Complaint, ROS, and Past Histories independently gathered by the clinical net application support specialist including scribe and or medical student and or SARAVANAN and or resident or fellow and the remaining scribed note accurately describes my personal service to the patient. Jose Garcia MD, MS [facility] * Santosh Staples RN - 01/05/2024 9:13 AM EDT UNIVERSAL PROTOCOL / SAFETY CHECKLIST Procedure to be Performed: Cystoscopy Sign In: A Moment of CARE was completed. Personnel directly involved with the procedure wore the appropriate PPE (Personal Protective Equipment). No special equipment needed. Patient/Surrogate Stated/Verified: PATIENT VERIFIED(optional for EMERGENT procedures): Patient name, Date of , Relevant allergies, and The intended procedure Time Out Communication: Intended patient and procedure match the source documents. Consent documented and matches the intended procedure. Relevant labs, photos, and/or imaging studies have been reviewed. No correct side/site applicable for marking and visibility. Medications required for procedure verified. Fire risk assessed and interventions discussed. No implant(s) inserted. Sign Out: SIGN OUT (optional for EMERGENT procedures): No specimen collected. All instruments, equipment, possible retained foreign bodies accounted for. Post-procedure follow-up management communicated and Plan of Care Visit completed when applicable. Santosh Staples RN documented in this encounterRiverview Health Institute04-11-2024 Nurse Note* Santosh Staples RN - 01/05/2024 9:11 AM EDT Actual procedure/procedure scheduled: Yes Performing provider/scheduled provider: Yes Patient was roomed in: Q9- 07 Web Designer Developer offered:Patient declines Patient arrived in the room at: 09:17 Patient ready for procedure: 09:34 The procedure started at ( Time Only): 09:40 The procedure ended at: 09:43 Was the procedure delayed: Yes: Patient late and Provider late: Provider with other patient on Q9 The patient left the procedure room at: 09:55 Santosh Staples RN PRE PROCEDURE ASSESSMENT- Cysto Procedure Indication: Cystoscopy Latex Allergy: No Allergies reviewed and updated. Yes Pre-Procedure Vital Signs: BP: 139/92 Pulse: 63 Heart valve replacement: Yes Joint replacement: Yes Back Office UA otained: yes PROCEDURE PREP-Cysto Patient ID with two(2)identifiers verified by: Santosh Staples RN Pre-Procedure Antibiotics: None taken at home nor prior to procedure Patient Prep: Betadine Scrub to perineum and placement of Sterile Drape. COMPLETED Anesthetic Given:Lidojet given by MD Santosh Staples RN UNIVERSAL PROTOCOL / SAFETY CHECKLIST Procedure to be performed: Cystoscopy Sign in Communication: Completed Time Out: Team Confirms the Correct Patient, Correct Procedure, Correct Site and Site Marking, Correct Position (if applicable). Sign Out Discussion: Completed Santosh Staples RN POST PROCEDURE NURSE ASSESSMENT Present along with physician during procedure exam. Santosh Staples RN Instruction sheet given and reviewed and patient verbalizes understanding: yes Post Procedure Antibiotic: None Current pain intensity is 0 on a 0-10 pain scale. Santosh Staples RN AMBULATORY PATIENT EDUCATION THE FOLLOWING WAS EVALUATED Motivation To Learn: Interested Family/Significant Other Support: Unable to assess - Family not present Cognitive Ability: Alert/Oriented Method of Instruction: Individual instruction Written instruction - handouts Verbal instruction The Following Influencing Factors Were Barriers To This Education Session: None The Following Physical Limitations Were Barriers To This Education Session: None Instruction Provided To: Patient Digital Service Engineer Present: not applicable Discipline: Nursing Learning Topic: SURVIVAL SKILLS: Complication Prevention Symptom Management Patient Evaluation: Verbalizes understanding: Yes Supplemental Material Given: Written Material Instructed By Santosh Staples RN In Department Urology. documented in this encounterRiverview [facility] Institute04-01-2024 History of Present illness Narrative* Angela Corona APRN.REYNA - 12/26/2023 11:42 AM EDT cip documented in this encounterRiverview Health Institute02-01-2024 History of Present illness Narrative* Jose Garcia MD - 10/27/2023 8:15 AM EST [place] [id number] AMBULATORY PROCEDURE NOTE NAME: Bravo Arce AGE: [age] year old CLINIC #: [id number] DATE: October 26, 2023 Date of Initial Diagnosis: 04/2022 Tumor Stage of Initial Diagnosis: T1 Grade at Initial Diagnosis: high. Site of First Diagnosis: Bladder Any Recurrence? N/A Intravesical Treatments: TURBT 05/17 Date of Last Cysto: 07/28/22 Date of Last Upper Tract Imaging: N/A SURGEON: Dr.Christopher Garcia PROCEDURE: Cystoscopy ANESTHESIA: Lidocaine gel per urethra DIAGNOSIS: Bladder cancer INDICATION: Surveillance FINDINGS: Tumor present: No Urethra: Normal Prostate: Occlusive lateral lobes Median lobe but also had severe trabeculation with several diverticuli. Had a bladder stone but we basketed it and removed. The stone was about 8mm in size. Verumontanum: Open Urine cytology: Not sent PROCEDURE: After informed consent was obtained, the patient was taken to the endoscopy suite. A time out was performed where the patient and the procedure were identified in the presence of the Nursing and Surgical Staff. Patient was placed in supine position, prepped and draped in the standard sterile fashion. Lidocaine gel was placed per urethra for local anesthesia. Cystoscopy was then performed using a 17 F flexible cystoscope. Sterile technique was maintained throughout. Please refer to above for specific findings during this part of the procedure. After carefully and atraumatically inspecting the urethra, prostate, and bladder, the bladder was emptied and the cystoscope was removed. The patient tolerated the procedure well and there were no complications. ASSESSMENT/PLAN: 1) Bladder Cancer stage T1 high grade initially diagnosed in - Follow-up in three months, will check up on the bladder infection 2) Prostate hypertrophy - Continue tamsulosin and finasteride. Follow-up in three months, will check up on the bladder infection 3) Bladder stone/ recurrent UTI's - Removed bladder stone today and encourage fluid intake to prevent future UTIs. Jose Garcia By signing my name below, I, Dionicio Greenfield, attest that this documentation has been prepared underthe direction and in the presence of Dr.Christopher Panda Garcia MD. Electronically Signed: emily Marie, October 26, 2023 6:08 PM I agree with the Chief Complaint, ROS, and Past Histories independently gathered by the clinical net application support specialist including scribe and or medical student and or SARAVANAN and or resident or fellow and the remaining scribed note accurately describes my personal service to the patient. Jose Garcia MD, MS [facility] * Micaela Piña LPN - 10/27/2023 7:37 AM EST UNIVERSAL PROTOCOL / SAFETY CHECKLIST Procedure to be Performed: cystoscopy Sign In: A Moment of CARE was completed. Personnel directly involved with the procedure wore the appropriate PPE (Personal Protective Equipment). No special equipment needed. Patient/Surrogate Stated/Verified: PATIENT VERIFIED(optional for EMERGENT procedures): Patient name, Date of , Relevant allergies, and The intended procedure Time Out Communication: Intended patient and procedure match the source documents. Consent documented and matches the intended procedure. No relevant labs, photos, and/or imaging studies were applicable for review. No correct side/site applicable for marking and visibility. No medications required for procedure. Fire risk assessed and interventions discussed. No implant(s) inserted. Sign Out: SIGN OUT (optional for EMERGENT procedures): All specimen containers correctly labeled. All instruments, equipment, possible retained foreign bodies accounted for. Post-procedure follow-up management communicated and Plan of Care Visit completed when applicable. Micaela Piña LPN documented in this encounterRiverview Health Institute02-01-2024 Nurse Note* Micaela Piña LPN - 10/27/2023 7:37 AM EST Actual procedure/procedure scheduled: Yes Performing provider/scheduled provider: Yes Patient was roomed in: Q9- 07 Web Designer Developer offered:Patient declines Patient arrived in the room at: 0741 Patient ready for procedure: 0754 The procedure started at ( Time Only): 0805 The procedure ended at: 0815 Was the procedure delayed: No The patient left the procedure room at: 0830 Micaela Piña LPN PRE PROCEDURE ASSESSMENT- Cysto Procedure Indication: Cystoscopy Latex Allergy: No Allergies reviewed and updated. Yes Heart valve replacement: Yes, pacemaker in place Joint replacement: No Back Office UA otained: yes PROCEDURE PREP-Cysto Patient ID with two(2)identifiers verified by: Micaela Piña LPN Pre-Procedure Antibiotics: None taken at home nor prior to procedure Patient Prep: Betadine Scrub to perineum and placement of Sterile Drape. COMPLETED Anesthetic Given:10 cc 2% Lidocaine jelly Micaela Piña LPN UNIVERSAL PROTOCOL / SAFETY CHECKLIST Procedure to be performed: Cystoscopy Sign in Communication: Completed Time Out: Team Confirms the Correct Patient, Correct Procedure, Correct Site and Site Marking, Correct Position (if applicable). Sign Out Discussion: Completed Micaela Piña LPN POST PROCEDURE NURSE ASSESSMENT Present along with physician during procedure exam. Micaela Piña LPN Instruction sheet given and reviewed and patient verbalizes understanding: yes Post Procedure Antibiotic: none Current pain intensity is 0 on a 0-10 pain scale. Micaela Piña LPN AMBULATORY PATIENT EDUCATION THE FOLLOWING WAS EVALUATED Motivation To Learn: Interested Family/Significant Other Support: High - Very involved in pt care Cognitive Ability: Alert/Oriented Method of Instruction: Individual instruction Written instruction - handouts Verbal instruction The Following Influencing Factors Were Barriers To This Education Session: None The Following Physical Limitations Were Barriers To This Education Session: None Instruction Provided To: Patient and Spouse Digital Service Engineer Present: not applicable Discipline: Nursing Learning Topic: SURVIVAL SKILLS: Symptom Management Patient Evaluation: Verbalizes understanding: Yes Supplemental Material Given: Written Material Instructed By Micaela Piña LPN In Department Urology . documented in this encounterRiver[facility] Institute01-12-2024 Evaluation note* Encounter Date Diagnosis Assessment Notes Treatment Notes Treatment Clinical Notes Sep, Medicare annual wellness visit, subsequent (ICD-10 - Z00.00) Personalized health advice was given to the beneficiary including a written plan for screenings discussed and provided. Advanced care planning reviewed and/or information given as requested. Additional counseling was provided here today in regards to, [ ]. The above visit was performed by [ ], under direct supervision of [ ]. Document reviewed and amended by provider signed below. Sep, Essential hypertension (ICD-10 - I10) Blood pressure remains well controlled at this time. Denies cardiac symptoms. Shows no signs or symptoms or poor control. Patient to continue with above medication and we will continue to monitor. Advised to pay attention to body and symptoms. Any developing patterns. Stay well hydrated. Sep, ASHD (arteriosclerotic heart disease) (ICD-10 - I25.10) Continue followup w [facility] Sep, Bronchitis (ICD-10 - J40) Take antibiotic as directed. If develop wheezing, chest tightness, itching, bad cough, blue skin color, seizures, swelling of face, lips, tongue, or throat report to ED. Sep, Dyslipidemia (ICD-10 - E78.5) Check labs and continue present meds. [facility] Other 11-09-2023 Evaluation note* Encounter Date Diagnosis Assessment Notes Treatment Notes Treatment Clinical Notes Jul, Dysuria (ICD-10 - R30.0) [facility] Other 09-26-2023 History of Present illness Narrative* Davin Buck MD - 06/21/2023 12:07 PM EDT Infectious Disease E-Consult Response In response to your eConsult Infectious Disease request for Bravo Arce regarding: Pseudomonasaeruginosa bacteriuria. History of present illness provided through requesting provider documentation and current treatmentplan was reviewed. Based on the patient history provided, my impression is as follows: I could find no interaction between ciprofloxacin and atorvastatin. There is no other oral antibiotic that would cover Pseudomonas aeruginosa. IV antibiotics have substantial risk with them including access related DVTs and infections and increased morbidity. I would only treat if you really thought that he had actual UTI. Otherwise just repeat culture If treatment felt to be indicated, then best balance of risk and benefit would be the oral ciprofloxacin Specialist appointment needs: No appointment necessary Davin Buck MD June 21, 2023 documented in this encounterRiverview Health Institute09-14-2023 History of Present illness Narrative* Jose Garcia MD - 06/09/2023 9:15 AM EDT Patient with dirty UA and symptoms, will get culture and treat first and then see back for cystoscopy in the future. Eddie documented in this encounterRiverview Health Institute09-14-2023 Nurse Note* Kasey Rios RN - 06/09/2023 8:56 AM EDT Actual procedure/procedure scheduled: Yes Performing provider/scheduled provider: Yes Patient was roomed in: Q9- 07 Web Designer Developer offered: Patient declines Patient arrived in the room at: 0854 Patient ready for procedure: NA The procedure started at ( Time Only): NA The procedure ended at: NA Was the procedure delayed: Yes: Provider late: Provider with other patient on Q9 The patient left the procedure room at: 0955 Kasey Rios RN PRE PROCEDURE ASSESSMENT - Cysto Procedure Indication: Cystoscopy Latex Allergy: No Allergies reviewed and updated. Yes Heart valve replacement: No Joint replacement: No Back Office UA obtained: yes - positive for nitrates & leukocytes, patient c/o burning, states he just finished 10 day round of nitrofurantoin [address] Garcia Cysto cancelled for today, urine culture sent Kasey Rios RN documented in this encounterRiverview Health Institute08-04-2023 Evaluation note* Encounter Date Diagnosis Assessment Notes Treatment Notes Treatment Clinical Notes Apr, Dysuria (ICD-10 - R30.0) [facility] Other 07-12-2023 Evaluation note* Encounter Date Diagnosis Assessment Notes Treatment Notes Treatment Clinical Notes Mar, Bronchitis (ICD-10 - J40) Complete antibiotics and call if symptoms continue Mar, Permanent atrial fibrillation (ICD-10 - I48.21) Chronic problem - due for labs. Mar, Essential (primary) hypertension (ICD-10 - I10) as above Mar, Other fatigue (ICD-10 - R53.83) check labs. [facility] Other 07-12-2023 Evaluation note* Encounter Date Diagnosis Assessment Notes Treatment Notes Treatment Clinical Notes Mar, Bronchitis (ICD-10 - J40) Complete antibiotics and call if symptoms continue Mar, Permanent atrial fibrillation (ICD-10 - I48.21) Chronic problem - due for labs. No current issues - stable. Mar, Essential (primary) hypertension (ICD-10 - I10) as above no current issues - stable Mar, Other fatigue (ICD-10 - R53.83) check labs. no current issues stable. [facility] Other 04-26-2023 Miscellaneous Notes* Telephone Encounter - Beckie Stevens - 01/19/2023 12:22 PM EDT LVM on pt's home phone that 01/[address] Garcia was rescheduled and asked for call back. Have a great day, Beckie Stevens Urology documented in this encounterRiverview Health Institute03-30-2023 Evaluation + Plan note Future Scheduled Tests Laboratory* Basic Metabolic Panel 12/23/22 [facility]02-28-2023 Hospital Discharge instructions Patient Education 11/23/2022 14:23:11 Bladder Cancer Bladder Cancer Bladder cancer is an abnormal growth of tissue in the bladder. The bladder is the balloon-like sac in the pelvis. It collects and stores urine that comes from the kidneys through the ureters. The bladder wall is made of layers. If cancer spreads into these layers and through the wall of the bladder, it becomes more difficult to treat. What are the causes? The cause of this condition is not known. What increases the risk? The following factors may make you more likely to develop this condition: Smoking. Workplace risks (occupational exposures), such as rubber, leather, textile, dyes, chemicals, and paint. Being white. Your age. Most people with bladder cancer are over the age of 55. Being male. Having chronic bladder inflammation. Having a personal history of bladder cancer. Having a family history of bladder cancer (heredity). Having had chemotherapy or radiation therapy to the pelvis. Having been exposed to arsenic. What are the signs or symptoms? Initial symptoms of this condition include: Blood in the urine. Painful urination. Frequent bladder or urine infections. Increase in urgency and frequency of urination. Advanced symptoms of this condition include: Not being able to urinate. Low back pain on one side. Loss of appetite. Weight loss. Fatigue. Swelling in the feet. Bone pain. How is this diagnosed? This condition is diagnosed based on your medical history, a physical exam, urine tests, lab tests,imaging tests, and your symptoms. You may also have other tests or procedures done, such as: A narrow tube being inserted into your bladder through your urethra (cystoscopy) in order to view the lining of your bladder for tumors. A biopsy to sample the tumor to see if cancer is present. If cancer is present, it will then be staged to determine its severity and extent. Staging is an assessment of: The size of the tumor. Whether the cancer has spread. Where the cancer has spread. It is important to know how deeply into the bladder wall cancer has grown and whether cancer has spread to any other parts of your body. Staging may require blood tests or imaging tests, such as a CTscan, MRI, bone scan, or chest X-ray. How is this treated? Based on the stage of cancer, one treatment or a combination of treatments may be recommended. The most common forms of treatment are: Surgery to remove the cancer. Procedures that may be done include transurethral resection and cystectomy. Radiation therapy. This is high-energy X-rays or other particles. This is often used in combinationwith chemotherapy. Chemotherapy. During this treatment, medicines are used to kill cancer cells. Immunotherapy. This uses medicines to help your own immune system destroy cancer cells. Follow these instructions at home: Take [id number] and prescription medicines only as told by your health care provider. Maintain a healthy diet. Some of your treatments might affect your appetite. Consider joining a support group. This may help you learn to cope with the stress of having bladdercancer. Tell your cancer care team if you develop side effects. They may be able to recommend ways to relieve them. Keep all follow-up visits as told by your health care provider. This is important. Where to find more information [place] [employer]: www.cancer.org National Cancer [employer] (NCI): www.cancer.gov Contact a health care provider if: You have symptoms of a urinary tract infection. These include: ?Fever. ?Chills. ?Weakness. ?Muscle aches. ?Abdominal pain. ?Frequent and intense urge to urinate. ?Burning feeling in the bladder or urethra during urination. Get help right away if: There is blood in your urine. You cannot urinate. You have severe pain or other symptoms that do not go away. Summary Bladder cancer is an abnormal growth of tissue in the bladder. This condition is diagnosed based on your medical history, a physical exam, urine tests, lab tests,imaging tests, and your symptoms. Based on the stage of cancer, surgery, chemotherapy, or a combination of treatments may be recommended. Consider joining a support group. This may help you learn to cope with the stress of having bladdercancer. This information is not intended to replace advice given to you by your health care provider. Make sure you discuss any questions you have with your health care provider. Document Released: 09/14/2004 Document Revised: 08/25/2018 Document Reviewed: 08/16/2017 [employer] Patient Education 2020 [employer]. Follow Up Care 11/22/2022 09:21:36 With:AMI STYLES, ROSSY Sylvester, URL Address: [address] [facility] [place] [address] When: Unknown [facility] 02-25-2023 Miscellaneous Notes* Telephone Encounter - Susan Fajardo MD - 11/20/2022 10:42 AM EST Returned patients call regarding patient having gross hematuria and passing with clot with urination overnight. Gross hematuria not worsening and does not endorse clot retention. Denies any fevers, chills, dysuria, or flank pain. Patient reports he is able to pass the clots and can emptying his bladder without issues. Patient On eliquis 2.5mg BID for afib. Recommended patient call urology office on Tuesday for follow up visit with Dr. Garcia. Encouraged patient to stay well hydrated. Gave patient and his ER precautions including fever, chills, clotretention, flank pain - they verbalized understanding and wanted to be evaluated at [facility] if any issues arise. Encounter time: 10 mins Susan Fajardo MD Urology Resident Physician PGY-2 Pager [phone] For after hours or weekends please page [phone] [facility] documented in this encounterRiverview Health Institute02-06-2023 Hospital Discharge instructions Patient Education 11/01/2022 15:33:17 Bladder Cancer Bladder Cancer Bladder cancer is an abnormal growth of tissue in the bladder. The bladder is the balloon-like sac in the pelvis. It collects and stores urine that comes from the kidneys through the ureters. The bladder wall is made of layers. If cancer spreads into these layers and through the wall of the bladder, it becomes more difficult to treat. What are the causes? The cause of this condition is not known. What increases the risk? The following factors may make you more likely to develop this condition: Smoking. Workplace risks (occupational exposures), such as rubber, leather, textile, dyes, chemicals, and paint. Being white. Your age. Most people with bladder cancer are over the age of 55. Being male. Having chronic bladder inflammation. Having a personal history of bladder cancer. Having a family history of bladder cancer (heredity). Having had chemotherapy or radiation therapy to the pelvis. Having been exposed to arsenic. What are the signs or symptoms? Initial symptoms of this condition include: Blood in the urine. Painful urination. Frequent bladder or urine infections. Increase in urgency and frequency of urination. Advanced symptoms of this condition include: Not being able to urinate. Low back pain on one side. Loss of appetite. Weight loss. Fatigue. Swelling in the feet. Bone pain. How is this diagnosed? This condition is diagnosed based on your medical history, a physical exam, urine tests, lab tests,imaging tests, and your symptoms. You may also have other tests or procedures done, such as: A narrow tube being inserted into your bladder through your urethra (cystoscopy) in order to view the lining of your bladder for tumors. A biopsy to sample the tumor to see if cancer is present. If cancer is present, it will then be staged to determine its severity and extent. Staging is an assessment of: The size of the tumor. Whether the cancer has spread. Where the cancer has spread. It is important to know how deeply into the bladder wall cancer has grown and whether cancer has spread to any other parts of your body. Staging may require blood tests or imaging tests, such as a CTscan, MRI, bone scan, or chest X-ray. How is this treated? Based on the stage of cancer, one treatment or a combination of treatments may be recommended. The most common forms of treatment are: Surgery to remove the cancer. Procedures that may be done include transurethral resection and cystectomy. Radiation therapy. This is high-energy X-rays or other particles. This is often used in combinationwith chemotherapy. Chemotherapy. During this treatment, medicines are used to kill cancer cells. Immunotherapy. This uses medicines to help your own immune system destroy cancer cells. Follow these instructions at home: Take kdih-ers-rvitaez and prescription medicines only as told by your health care provider. Maintain a healthy diet. Some of your treatments might affect your appetite. Consider joining a support group. This may help you learn to cope with the stress of having bladdercancer. Tell your cancer care team if you develop side effects. They may be able to recommend ways to relieve them. Keep all follow-up visits as told by your health care provider. This is important. Where to find more information [place] [employer]: www.cancer.org National Cancer Cutler (NCI): www.cancer.gov Contact a health care provider if: You have symptoms of a urinary tract infection. These include: ?Fever. ?Chills. ?Weakness. ?Muscle aches. ?Abdominal pain. ?Frequent and intense urge to urinate. ?Burning feeling in the bladder or urethra during urination. Get help right away if: There is blood in your urine. You cannot urinate. You have severe pain or other symptoms that do not go away. Summary Bladder cancer is an abnormal growth of tissue in the bladder. This condition is diagnosed based on your medical history, a physical exam, urine tests, lab tests,imaging tests, and your symptoms. Based on the stage of cancer, surgery, chemotherapy, or a combination of treatments may be recommended. Consider joining a support group. This may help you learn to cope with the stress of having bladdercancer. This information is not intended to replace advice given to you by your health care provider. Make sure you discuss any questions you have with your health care provider. Document Released: 09/14/2004 Document Revised: 08/25/2018 Document Reviewed: 08/16/2017 [employer] Patient Education 2020 [place]. Follow Up Care 11/01/2022 09:40:54 With:FADI MAHONEY, Daysi [place], URL Address: [facility] [address] [place] [phone] When: Unknown [facility] Ayaan 01-24-2023 History of Present illness Narrative* Jose Garcia MD - 10/19/2022 4:15 PM EST PATIENT: Bravo Arce [id number] 10/18/2022 POST OP This clinic note was copied and updated from previous note from 09/14/2022 Chief Complaint: Follow up for bladder cancer History of Present Illness: Bravo Arec is a very pleasant 82 year old male who presents with a history of bladder cancer s/p TURBT 10/08/2022 Has T1HG (no muscle present) diagnosed on TURBT in 04/2022 with postoperative intravesical mitomycin instillation. Has not had a restaging TURBT. Underwent triple bypass, mitral valve repair at in06/04/2022. Therefore this took precedence over the bladder cancer. Has had urinary retention and has been able to have his brown catheter removed since his resection in april. On eliquis 2.5mg bid for afib On plavix Interval Hx: The patient is visiting today to review surgical pathology 10/08/2022 FINAL DIAGNOSIS A. Bladder, tumor, transurethral resection: -Benign urinary bladder tissue with acute and chronic inflammation and marked reactive changes. -No definite residual/recurrent neoplasm. -Muscularis propria is present for evaluation and negative for neoplasm. B. Prostate, 3.5 g, transurethral resection: -Benign prostatic tissue. Doing well post op, voiding with no issues after catheter removal last week. Physical Exam: There were no vitals taken for this visit. General: Alert, no acute distress, oriented Lungs: No respiratory distress or pursed lip breathing Psych: Affect and mood normal Abdomen: Estimated body mass index is 21.47 kg/m as calculated from the following: Height as of 10/01/22: 182.9 cm (6'). Weight as of 10/01/22: 71.8 kg (158 lb 4.8 oz). Labs and Pathology: Surgical Pathology 10/08/2022 FINAL DIAGNOSIS A. Bladder, tumor, transurethral resection: -Benign urinary bladder tissue with acute and chronic inflammation and marked reactive changes. -No definite residual/recurrent neoplasm. -Muscularis propria is present for evaluation and negative for neoplasm. B. Prostate, 3.5 g, transurethral resection: -Benign prostatic tissue. Imaging: N/A Assessment: 1.) Bladder cancer, T1HG (no muscle present) diagnosed on TURBT in 04/2022 with postoperative intravesical mitomycin instillation. Has not undergone restaging TURBT and TURP no evidence of recurrence 2.)urinary retention s/p TURBT 10/18/22 Plan: 1.) Follow up in 3 months with cysto no sign of progression. 2.)Catheter no longer needed, voiding well Angela Corona APRN.PEDIATRICS PHYSICIAN Scribed for Dr. Jose Garcia by Carmella Pritchett product manager medical device on 10/19/2022 I agree with the Chief Complaint, ROS, and Past Histories independently gathered by the clinical net application support specialist including scribe and or medical student and or SARAVANAN and or resident or fellow and the remaining scribed note accurately describes my personal service to the patient. Jose Garcia MD, MS [facility] documented in this encounterRiverview Health Institute01-09-2023 Miscellaneous Notes* Telephone Encounter - Leonarda Key - 10/04/2022 8:43 AM EST Outside Preoperative note, postoperative note, discharge summary, EKG, Echo's have been scanned in. documented in this encounterRiverview Health Institute01-06-2023 Instructions* Patient Instructions* Erickson Larios MD - 10/01/2022 1:45 PM EST PATIENT PREOPERATIVE INSTRUCTIONS Jose Garcia MD has scheduled you for your procedure at this surgery center: [facility] [place] Scheduling Office: [phone] --[address] [place] [address]. Please read below carefully for your personalized instructions. Dietary Restrictions: - No solid food after midnight. - You may have 12 ounces of clear liquids (water, clear juices such as apple juice or gatorade, carbonated beverages, clear tea, black coffee, jello) until 2 hours before scheduled arrival at facility. Medications: Unless instructed differently below, stay on all of your medications until your surgery. Approved medications to take the morning of surgery with a sip of water: Atorvastatin, Furosemide, metoprolol, flomax If you start any new medications after today's visit, please contact the surgeon's office. Blood Thinning Medications: - Stop NSAIDS (Ibuprofen, Advil, Aleve, Motrin, Celebrex, Mobic, etc.) 7 days before surgery, as directed by your surgeon. - Stop Plavix 5 days before surgery or as directed by physician. - Stop Vitamin E, ALL multi-vitamins, herbals and dietary supplements 7 days before surgery. - Stop Apixaban (Eliquis) 3 days before surgery Important Reminders: - Candy, mints, and tobacco products are NOT permitted the morning of surgery. - Hearing aids, dentures and glasses may be worn the morning of surgery. - NO jewelry, body piercings, makeup, hairpins or contacts are to be worn the day of surgery. If you develop symptoms such as a fever, cold, or flu, or have other changes to your health within TWO DAYS of scheduled surgery or the morning of surgery, please contact the surgery center above. Personal Belongings: -Please have photo ID and insurance cards. -If you do not have a copy of advance directives on file with us, please bring a copy with you on the day of surgery. - Leave ALL valuables and money at home or with family members. For Outpatient Procedures: - YOU MUST HAVE A RESPONSIBLE PACKAGE REINSPECTOR TAKE YOU HOME. A INDUSTRIAL ROOF PLUMBER OR SAFETY CONSULTANT CANNOT BE MADE A RESPONSIBLE PACKAGE REINSPECTOR. - We recommend that a responsible person stays with you overnight to take care of you. - You cannot stay in a hotel alone after outpatient surgery. You will not be permitted to have yoursurgery, if you do not have someone to take care of you. Arrival Time for Surgery: - To obtain your arrival time for surgery, call your physician's office the day before your surgery. - If your surgery is scheduled for Tuesday, call the Tuesday before. Your surgeon s trash man will tell you what time to call the office. - If you have not reached the departmental trash man by 5 P.M., call [phone] after 5 P.M. the day before your surgery. Please be aware that emergency situations arise, which may delay or change your surgical time. If this happens, we will notify you as soon as possible and regret any inconvenience. If you already have an Advance Directive, please fax a copy to [phone] or email to for it to be added to your chart. If you do not have an Advance Directive, you can find the appropriate form and more information at [email or web address]. We recommend that youcomplete the Advance Directive form found on the website and bring it with you the day of your surgery. It can be witnessed and scanned into your chart that day. Erickson Larios MD documented in this encounterRiverview Health Institute01-06-2023 History and physical note * Erickson Larios MD - 10/01/2022 1:00 PM EST HISTORY AND PHYSICAL EXAMINATION SERVICE DATE: 10/01/2022 SERVICE TIME: 1315 PRIMARY CARE PHYSICIAN: Polina Dunn REASON FOR VISIT: Bravo Arce is a 82 year old male who is scheduled for RESECTION BLADDER TUMOR TRANSURETHRAL, TURP COMPLETE at the request of Dr. Jose Garcia for consultation. My final recommendation will be communicated back to the requesting physician by way of shared medical record or letter. The patient has the following: ACTIVE PROBLEM LIST Degeneration of Lumbar Intervertebral Disc Spinal Stenosis, Lumbar Region, Without Neurogenic Claudication Cad (Coronary Artery Disease) Anemia in Other Chronic Diseases Classified Elsewhere Congestive Heart Failure (Hcc) Non-St Elevation (Nstemi) Myocardial Infarction (Hcc) A-Fib (Hcc) Pacemaker S/P Cabg (Coronary Artery Bypass Graft) Schatzki's Ring of Distal Esophagus Sss (Sick Sinus Syndrome) (Hcc) Subjective CHIEF COMPLAINT: Malignant neoplasm of urinary bladder HPI: Bravo Arce is a 82 year old male with CAD s/p CABG 05/2022 with concurrent MVR (for MR) and LA ligation for AF currently on eliquis, SSS s/p PPM (RA/RV leads) and who [facility] today[facility] pre[facility] exam. Patient is scheduled for the above procedure on 10/08/22. Patient has a history of bladder CA and is scheduled for the above procedure for planning purposes. Denies fevers, chills, nausea, vomiting, abdominal pain, chest pain, and SOB. PAST MEDICAL HISTORY Diagnosis Date A-fib (HCC) Anemia CAD (coronary artery disease) Squamous cell carcinoma, face L face, s/p parotidectomy and neck dissection. Not invasive SSS (sick sinus syndrome) (HCC) No past surgical history on file. No family history on file. SOCIAL HISTORY: Social History Tobacco Use Smoking status: Never Smokeless tobacco: Never Substance Use Topics Alcohol use: Never Drug use: Never MEDICATIONS: Prior to Admission medications as of 10/01/222031 Medication Sig Last Dose Taking metoprolol tartrate, short acting, (LOPRESSOR) 25 mg tablet Take 1 tablet by mouth twice daily. Taking Yes apixaban (ELIQUIS) 2.5 mg tab(s) Take by mouth q 12 HR. Taking Yes atorvastatin (LIPITOR) 80 mg tablet Take 80 mg by mouth once daily. Taking Yes furosemide (LASIX) 20 mg tablet TAKE 1 TABLET BY MOUTH ON TUESDAY, TUESDAY, AND TUESDAY Taking Yes latanoprost (XALATAN) 0.005 % ophthalmic solution 1 Drop. Taking Yes lisinopril 2.5 mg tablet TAKE 1 TABLET BY NASOGASTRIC TUBE ONCE A DAY Taking Yes tamsulosin (FLOMAX) 0.4 mg Take 0.4 mg by mouth once daily. Taking Yes clopidogrel (PLAVIX) 75 mg tablet Take 75 mg by mouth once daily. Taking Yes sulfamethoxazole-trimethoprim (BACTRIM DS,SEPTRA DS) 800-160 mg per tablet Take 1 tablet by mouth twice daily. Patient not taking: Reported on 10/01/2022 Not Taking HYDROcodone-acetaminophen (NORCO) 5-325 mg per tablet Take 1 tablet by mouth twice daily as needed. Patient not taking: No sig reported Not Taking No medication comments found. CURRENT ALLERGIES: ALLERGIES Allergen Reactions Ciprofloxacin Diarrhea Penicillins Intolerance COVID VACCINATION STATUS: Partially vaccinated REVIEW OF SYSTEMS: PAIN ASSESSMENT: General: No weight loss, malaise or fevers. Neuro: No history of TIA's, stroke, DOCUMENTATION NURSE tumor, impaired sensorium, hemiplegia, paraplegia or quadraplegia. No neurological symptoms or problems. Respiratory: +Recent URI, now resolved, no hx Lung dz Cardiovascular: See HPI +CAD s/p CABG, +MR s/p MVR, +AF s/p LA ligation on eliquis, +SSS s/p PPM GI: +Schatzki ring, s/p esophageal dilation, -trouble swallowing : No history of dysuria, frequency or incontinence,, stones or chronic kidney disease Endocrine: No history of diabetes. Has not taken steroids within the past 30 days. No history of endocrinological symptoms or problems. Hematology: Negative for bleeding/clotting disorders, +anemia, +eliquis use Oncology: See HPI+Bladder CA Psych: No history of psychiatric symptoms or problems. Musculoskeletal: See HPI +R WAN, +OA Skin: Negative for lesions, rash and itching. Objective PHYSICAL EXAM: VITALS: BP 120/51 Pulse 73 Temp (Src) 96.9 (Temporal) Ht 6' 0 (1.83m) Wt 158 lb 4.8 oz (71.8kg) SpO2 100% BMI 21.46 kg/(m^2). General: Alert and oriented, Healthy appearance Skin: Normal color, no rash, no lesions. HEENT: EOM, pupils equal, round and reactive. Cardiovascular: Normal S1 & S2, no rubs, murmurs or gallops. No JVD. Pulse regular. Lungs: Normal breath sounds, no wheezes or crackles. Abdomen: Soft, non-tender, no rigidity. Extremities: No deformity, no edema or tenderness, no joint swelling or clubbing. Neurological: Normal cognition and motor skills. Pulses: Carotid and radial pulses normal +2. Diagnostic tests reviewed for today's visit: Lab Value Units Date High Low HB 10.2 g/dL 10/01/2022 17.0 13.0 HCT 32.2 % 10/01/2022 51.0 39.0 WBC 5.26 k/uL 10/01/2022 11.00 3.70 PLT 206 k/uL 10/01/2022 400 150 NA 140 mmol/L 10/01/2022 144 136 K 4.9 mmol/L 10/01/2022 5.1 3.7 GLUC 97 mg/dL 10/01/2022 99 74 BUN 13 mg/dL 10/01/2022 24 9 CREAT 0.86 mg/dL 10/01/2022 1.22 0.73 PTSEC 10.8 sec 10/01/2022 13.0 9.7 INR 1.0 no uni* 10/01/2022 1.3 0.9 APTT 28.8 sec 10/01/2022 32.4 23.0 ALT 22 U/L 10/01/2022 54 10 AST 28 U/L 10/01/2022 40 14 TBILI 0.5 mg/dL 10/01/2022 1.3 0.2 TSH No results within date range. Lab Value Units Date High Low HCGQT No results within date range. UHCG No results within date range. HCG, BODY* No results within date range. Lab Value Units Date High Low ABORHD No results within date range. ABSCREEN No results within date range. No results found for: HBA1C ECG - Qtc 487 Diagnosis: ATRIAL FIBRILLATION LEFT AXIS DEVIATION COMPLETE RIGHT BUNDLE BRANCH BLOCK ABNORMAL ECG 10/01/22 Device Check DUAL CHAMBER PACEMAKER EVALUATION: New to [facility] device clinic. PRE-OP EVALUATION: RESECTION BLADDER TUMOR TRANSURETHRAL PRESENTING EGM: irregular VS-HYPERBARIC WELDER DIVER UNDERLYING RHYTHM: AF with controlled ventricular response PROGRAMMED MODE: VVIR 70 bpm MAGNET RATE: VOO 100 bpm PROGRAMMING CHANGES NEEDED PRE/POST OP: None. BATTERY STATUS: Normal with no significant depletion/ estimated time remaining to SAVI is 4-8 years. COUNTERS SINCE 06/07/2022: ATRIAL ARRHYTHMIAS: Programmed VVIR 70 bpm. Persistent AF. Anticoagulants listed: AMI closure. VENTRICULAR ARRHYTHMIAS: Since 10/06/21, there have been 43 high ventricular rate detections. EGM's show a mix of short nsVT and AF with RVR. Patient denies symptoms with recent episodes. There were several noise reversion episodes recorded on 06/04/22 during patient's [facility]. LEAD MEASUREMENTS: RV capture and sensing are appropriate. RA lead not tested due to AF. The pacingoutputs maintain safety margin. Review of the lead impedance trends are normal. IMPLANT SITE/ SYMPTOMS: The incision and pocket are painfree (0/10), well healed and without signs of erosion or infection. No arm swelling, syncope, pre-syncope or device related pocket stimulation. OTHER DIAGNOSTICS: V pacing 21%. PROGRAMMING CHANGES MADE TODAY: None. FOLLOW UP: Will follow as needed while in-patient. Otherwise the patient follows locally. Vandana Shen RN NOTE TO PROVIDERS: CARD Flowsheets contain detailed device programming and testing data. Paceart/Interrogation PDF can be found under CARDIAC DATA AND REPORT, Scanned Documents section. Assessment/Plan CAD (coronary artery disease) Assessment: patient underwent CABGx3 with concurrent MVR [...] and op report - this will NOT precludethe patient from having his procedure A-fib ([facility]) Assessment: chronic AF on eliquis 2.5mg BID. S/p LA appendage ligation during CABG 05/2022. -08/2022 ECG with AF and paced rhythm. -Hold eliquis 48h prior to procedure SSS (sick sinus syndrome) ([facility]) Assessment: s/p PPM in 2010 with RA/RV leads. No device check at [facility] before. - Will get same day device clinic appt Anemia in other chronic diseases classified elsewhere Assessment: 03/2022 OSH CBC with Hb ~10. -CBC ordered by urology Chronic kidney disease, unspecified Assessment: Only available BMP from OSH 03/2022 showed normal SCr 1.03. -BMP ordered by primary Schatzki's ring of distal esophagus Assessment: previously with difficulty swallowing necessitating esophageal dilation with significant improvement. No aspiration or reflux METS: Climb a flight of stairs or walk up a hill (5.50 METs) Patient denies any chest pain or undue shortness of breath with the above physical activity. ASA Class: 3 ANESTHESIA FINDINGS: Intubation History: No history of difficult intubation Significant Anesthesia Considerations: None Airway Exam: General: Normal appearance Mallampati Score is CLASS I ULBT: Class III - Lower incisors cannot bite the upper lip Neck: Distance from hyoid to mentum during neck extension is at least 3 finger breaths, Limited movement extension Mouth: Normal tongue size and small mouth opening Dentition: Intact and Caps/crowns Airway History: No history of difficult intubation STOP BANG Score: Criteria: Tired Hypertension Age over 50 (82 year old) Male gender Score = 4 PLAN This patient is optimally prepared for surgery. Although this patient recently had CABG/MVR/LA appendage excision in 05/2022 at , his clinical condition is stable. He was cleared by [facility] cardiology Dr. Urban and can proceed with his procedure. Notably, he should hold his eliquis 48h preoperatively. CONSULTS: Patient does not require consults for optimization at this time. The Following Tests/Procedures Have Been Initiated: Labs ordered by primary Planned Anesthetic: Per anesthesia choice Instructions Given to Patient: Instructions located in the after visit summary. Patient given verbal and written preop instructions and voices comprehension and compliance. SIGNATURE: Erickson Larios MD PATIENT NAME: Bravo Arce DATE: October 01, 2022 TIME: 9:16 AM documented in this encounterRiverview Health Institute01-06-2023 History of Present illness Narrative* Amadou Carlton MD - 10/01/2022 10:30 AM EST [facility] PRE-OP NOTE Patient is a 82 year old male Pre-op Date: 10/01/22 Date of Procedure: 10/08/2022 Does the patient have an active COVID-19 test in Epic? NA Procedure/Surgery: TURBT, possible TURP Diagnosis: Bladder cancer, BPH Primary Surgeon: Jose Garcia MD Pain Assessment: Are you currently having pain? No Surgical Guide Book Status: Patient has guide with them today. Dialysis Guide Book Status: NA Allergies Reviewed: yes. PCN allergy told by mother. Medications Reviewed: yes Is patient currently on oral steroids?: no Has the patient had a UTI in the past month?: no Does the patient have any artificial joints (last 2 years), metal parts, pacemakers or cardiac/ureteral stents in place?: hip replaced >2 years ago, has pacemaker and leads in the heart. Does the patient have diabetes?: no Is the patient routinely taking anticoagulants?: yes Can the patient have an IV put in either arm?: yes Urine Dip Complete?: brown dependent. Having urine sample done today. URINE CULTURE COMPLETE?: Urine sample today Ostomy/Stoma Nurse appointment made/completed: N/A [facility]/Medical Clearance: Cleared per [facility] - To be seen [facility] Clinic: Cleared per [facility] - To be seen All testing on cureform has been scheduled: Yes Consent Signed: yes DOS Orders Placed and Signed: Yes. Pre-op H&P Done by Urology Fellow: Will be done by [facility] today. PATIENT INSTRUCTIONS FOR SURGERY 1.) DO NOT HAVE ANYTHING TO EAT AFTER MIDNIGHT THE DAY BEFORE SURGERY except for certain morning medications as instructed by the doctor. Candy, mints, gum, and smoking are NOT permitted. You may drink clear liquids (Sprite, water, denilson iralnda) up to two hours before your arrival time on the day of surgery. 2.) Medications to be taken on the morning of surgery with a few sips of water: discussed with patient 3.) Please bring all your prescribed inhalers (if you have any you normally take) to the hospital. 4.) Arrival time: Call for arrival. 5.) Prep given: No 6.) Lovenox instructions given: N/A 7.) Patient reminded that surgery time provided day before surgery is tentative based on potential changes with transplants. Recommendations: This patient is optimally prepared for surgery pending LABS, [facility] documented in this encounterRiver[facility] Institute12-28-2022 Instructions* Patient Instructions* Asad Vazquez DO - 09/22/2022 2:24 PM EST Please make sure to do the following: Schedule TTE hopefully on 10/01 Please stop eliquis 3 days before the procedure Please stop Plavix 5 days before the procedure If significant bleeding after procedure can consider CT scan or HERB to evaluate success of left atrial appendage clip and if successful can consider coming off eliquis after speaking with provider documented in this encounterRiverview Health Institute12-28-2022 History of Present illness Narrative* Hemal Urban MD - 09/22/2022 1:05 PM EST Images from the original note were not included. [facility] Department of Cardiovascular Medicine SECTION OF CLINICAL CARDIOLOGY OUTPATIENT VISIT DATE September 22, 2022 OUTPATIENT VISIT TYPE NEW PRIMARY CARE PHYSICIAN : [place] [address] REFERRING PHYSICIAN: No referring provider defined for this encounter. CHIEF COMPLAINT: Pre-operative Risk Stratification HISTORY OF PRESENT ILLNESS: Mr. Arce is a 82 year old male with past medical history significant for: -CAD status post CABGx3 06/04/2022 (on Plavix) -Severe MR status post MVR 06/04/2022 -A. Fib status post left atrial appendage ligation 05/2022 (on Eliquis 2.5 mg p.o. twice daily) -Bladder CA -Severe TR -Sick sinus syndrome status post PPM (RA/RV leads) -Hyperlipidemia (lipitor 80 mg PO daily) -Hypertension (lisinopril 2.5 mg PO daily) Who presents today for preoperative risk ratification prior to second planned TURBT procedure for re-staging of bladder CA with potential for radical cystectomy based off second biopsy findings. Patient is planned to have second bladder biopsy to determine future treatment for cancer but notesthat he was experiencing more KATZ around the time of the scheduled biopsy and noticed a crescendo of symptoms on 05/26. Patient was downtown, became more short of breath, experiencing visual trouble, drove home, and presented to local hospital where he underwent LHC that showed significant multivessel CAD. Decision was made at that time to pursue surgical revascularization along with concomitant MV repair and left atrial appendage ligation which was completed June 04, 2022. Since that time had been feeling well. Prior to his procedure he was getting winded with walking tomailbox and after procedures in 05/2022 notices significant improvement in exercise tolerance. He isable to walk up about 2 flights of stairs but notices towards the top he would get weak and short of breath with recovery after about 2-3 min. He denies chest pain, orthopnea, cough, edema, palpitations, PND, lightheadedness or syncope. PAST CARDIAC HISTORY: See above No past medical history on file. No past surgical history on file. SOCIAL HISTORY Social History Tobacco Use Smoking status: Never Smokeless tobacco: Never Substance Use Topics Alcohol use: Never Drug use: Never No family history on file. ALLERGIES: ALLERGIES Allergen Reactions Ciprofloxacin Diarrhea Penicillins Intolerance MEDICATIONS: sulfamethoxazole-trimethoprim (BACTRIM DS,SEPTRA DS) 800-160 mg per tablet^Take 1 tablet by mouth twice daily.^Disp: ^Rfl: apixaban (ELIQUIS) 2.5 mg tab(s)^Take by mouth q 12 HR.^Disp: ^Rfl: atorvastatin (LIPITOR) 80 mg tablet^Take 80 mg by mouth once daily.^Disp: ^Rfl: furosemide (LASIX) 20 mg tablet^TAKE 1 TABLET BY MOUTH ON TUESDAY, TUESDAY, AND TUESDAY^Disp: ^Rfl: latanoprost (XALATAN) 0.005 % ophthalmic solution^1 Drop.^Disp: ^Rfl: lisinopril 2.5 mg tablet^TAKE 1 TABLET BY NASOGASTRIC TUBE ONCE A DAY^Disp: ^Rfl: tamsulosin (FLOMAX) 0.4 mg^Take 0.4 mg by mouth once daily.^Disp: ^Rfl: clopidogrel (PLAVIX) 75 mg tablet^Take 75 mg by mouth once daily.^Disp: ^Rfl: metoprolol tartrate, short acting, (LOPRESSOR) 25 mg tablet^Take 1 tablet by mouth twice daily.^Disp: 60 tablet^Rfl: 3 HYDROcodone-acetaminophen (NORCO) 5-325 mg per tablet^Take 1 tablet by mouth twice daily as needed.^Disp: 20 tablet^Rfl: 0 (Patient not taking: Reported on 09/22/2022) omeprazole (PRILOSEC) 20 mg capsule^Take 20 mg by mouth once daily.^Disp: ^Rfl: (Patient not taking: Reported on 09/22/2022) aspirin, enteric coated (ASPIRIN, ENTERIC COATED) 81 mg EC tablet^Take 81 mg by mouth once daily.^Disp: ^Rfl: (Patient not taking: Reported on 09/22/2022) REVIEW OF SYSTEMS: GENERAL: Negative for: Weight loss or gain, Fever or Chills, Weakness and Sleep difficulties. HEENT: Negative for: Headache, Impaired Vision, Glasses, Hearing Impairment, Ringing in Ears, Nosebleeds, Poor dental care, Bleeding Gums, Dentures NECK: Negative for: Swelling, Pain, Stiffness RESPIRATORY: Negative for: Cough, Blood in Sputum, Shortness of breath, Wheezing, Apnea GASTROINTESTINAL: Negative for: Trouble swallowing, Heartburn, Change in bowel habits, Blood in stool, Dark black stools MUSCULOSKELETAL: Negative for: Muscle or joint pain, Stiffness , Joint swelling NEUROLOGIC/PSYCHIATRIC: Negative for: Weakness, Paralysis, Numbness, Tingling, Tremor, Nervousness,Depressed mood, Memory loss SKIN: Negative for: Rashes, Itching HEMATOLOGICAL/LYMPHATIC: Negative for: Easy bruising , Easy bleeding ENDOCRINE: Negative for: Heat or cold intolerance, Excessive sweating, Frequent urination, Frequentthirst PHYSICAL EXAMINATION: BP 115/69 (BP Site: Right Arm) Pulse 94 Wt 72.6 kg (160 lb) SpO2 97% BMI 21.70 kg/m General: Well appearing, in no acute distress. Skin: No clubbing, no cyanosis. Eyes: Extra ocular movements intact Oropharynx: Teeth in good repair. Neck: No jugular venous distention, no carotid bruits, carotids have a normal upstroke, no palpablethyromegaly. Lungs: Clear to auscultation bilaterally, no wheezing or rhonchi. Heart: PPM palpable and left upper chest without any tenderness or erythema. Irregular rhythm, PMI not displaced, S1, S2 normal, no S3, no S4, no heaves, no rub and no murmur. Abdomen: Soft, nontender, bowel sounds normal, no palpable organomegaly, no bruits. Extremities: No peripheral edema . Grade 2/4 distal pulses bilaterally. Neuro: Oriented to person, place and time, alert, cooperative, gait coordinated. CARDIOVASCULAR MEDICINE TESTING: There were no tests performed for review. IMPRESSION: Mr. Arce is a 82 year old male with past medical history significant for: -CAD status post CABGx3 06/04/2022 (on Plavix) -Severe MR status post MVR 06/04/2022 -A. Fib status post left atrial appendage ligation 05/2022 (on Eliquis 2.5 mg p.o. twice daily) -Bladder CA -Severe TR -Sick sinus syndrome status post PPM (RA/RV leads) -Hyperlipidemia (lipitor 80 mg PO daily) -Hypertension (lisinopril 2.5 mg PO daily) Who presents today for preoperative risk ratification prior to second planned TURBT procedure for re-staging of bladder CA with potential for radical cystectomy based off second biopsy findings. He recently underwent combined procedures of CABG x3, mitral valve repair, and left atrial appendage ligation on 05/2022 with noted improvement in functional status after these procedures which he tolerated well. As per urology they are hoping to perform a second TURBT procedure to guide next steps in treatment. Overall the patient has decent functional status and stays relatively active. He is able to walk up roughly 2 flights of stairs at which point does experience some dyspnea but this is animprovement in comparison to presurgical functional status. He is not experiencing any syncopal episodes or angina with these exertion episodes. He does not have a history of CVA, CKD, CHF, insulin-de pendent diabetes and therefore has an RCRI of 1 (CAD). We discussed obtaining TTE here at [facility] at some point to establish baseline but this is not prohibitive/preclusive to his planned biopsy on 10/08 and can be completed during that hospitalization or afterwards. From a cardiac perspective he is having medically acceptable condition to proceed with planned TURBT procedure. PLAN AND RECOMMENDATIONS: -TTE ideally during hospital stay for TURBT but if not possible at earliest convenience -Resume prior metoprolol 25 mg p.o. twice daily -Continue with Eliquis until 3 days prior to planned procedure and can resume after procedure as per discretion from urology -Continue with Plavix until 5-7 days prior to planned procedure and can resume after procedure as per discretion from urology -Please make sure to use intermittent cautery given pacemaker dependence -Patient can consider HERB or cardiac CT with contrast to evaluate success of left atrial appendage closure and if appears successful with no blood flow through appendage can consider coming off Eliquis altogether given patient's prior episodes of bleeding and ongoing increased bleeding risk CONTACT INFORMATION: Asad Vazquez, Internal Medicine Resident PGY2 [facility] STAFF PHYSICIAN NOTE OF PERSONAL INVOLVEMENT IN CARE I have reviewed the documentation obtained and documented by Dr. Vazquez and have reviewed and updated the problem list as appropriate. I have personally performed a face to face assessment of the patient and have personally participated in the bales components of history and physical examination. I have discussed the case and management of the patient's care. STAFF PHYSICIAN: Hemal Urban M.D, PhD, FRCPC, FACC Examining Officer at [facility] Associate Proofer Prepress Internal Medicine Residency Proofer Prepressbilliard table assembler Education Internal Medicine Residency Proofer Prepress of Consult Service Proofer Prepress for Elective Students/Residents at [facility] Cardio-Oncology Center Jhoan Juarez Department of Cardiovascular Medicine Heart and Vascular [facility] Desk [id number] [place] [address] Office Office Appointments: [phone] DATE OF SERVICE: 09/22/2022 documented in this encounterRiver[facility] Institute12-20-2022 History of Present illness Narrative* Jose Garcia MD - 09/14/2022 2:30 PM EST PATIENT: Bravo Arce [id number] REFERRING MD: 09/14/[address] GARCIA Chief Complaint Consult for bladder cancer Referral Consultation requested by Dr. Gonzalez for an opinion regarding bladder cancer. My final recommendations will be communicated back to the requesting physician by way of shared Medical record or letter to requesting physician via US mail. History of Present Illness Bravo Arce is a very pleasant 82 year old male who presents with a history of bladder cancer Has T1HG (no muscle present) diagnosed on TURBT in 04/2022 with postoperative intravesical mitomycin instillation. Has not had a restaging TURBT. Underwent triple bypass, mitral valve repair at in06/04/2022. Therefore this took precedence over the bladder cancer. Has had urinary retention and has been able to have his brown catheter removed since his resection in april. On eliquis 2.5mg bid for afib On plavix Surgery Hx: Ventral hernia Cholecystectomy Hip replacement Past Histories No past medical history on file. No past surgical history on file. Medications Current Outpatient Medications Medication Instructions aspirin, enteric coated (ASPIRIN, ENTERIC COATED) 81 mg, ORAL, DAILY clopidogrel (PLAVIX) 75 mg, ORAL, DAILY HYDROcodone-acetaminophen (NORCO) 5-325 mg per tablet 1 tablet, ORAL, 2 TIMES DAILY NEEDED METOPROLOL TARTRATE ORAL ORAL omeprazole (PRILOSEC) 20 mg, ORAL, DAILY Family History No family history on file. Social History Social History Tobacco Use Smoking status: Never Smokeless tobacco: Never Substance Use Topics Alcohol use: Never Drug use: Never Allergies Allergies: Ciprofloxacin Diarrhea Penicillins Intolerance Physical Exam BP 129/74 (BP Site: Left Arm, BP Position: Sitting, BP Cuff Size: Regular Adult) Pulse 94 Ht 182.9 cm (6') Wt 71.2 kg (157 lb) BMI 21.29 kg/m General: Alert, no acute distress, oriented Lungs: No respiratory distress or pursed lip breathing Psych: Affect and mood normal Abdomen: Estimated body mass index is 21.29 kg/m as calculated from the following: Height as of this encounter: 182.9 cm (6'). Weight as of this encounter: 71.2 kg (157 lb). Very large ventral hernia Labs and Pathology T1 HG UCC, no muscle involved Imaging: N/A Assessment: 1.) Bladder cancer, T1HG (no muscle present) diagnosed on TURBT in 04/2022 with postoperative intravesical mitomycin instillation. Has not undergone restaging TURBT 2.) urinary retention Plan: 1.) Re-staging TURBT. Will need cardiac clearance and hold plavix and eliquis. 2.) possible TURP at the time of TURBT if no obvious tumors in the bladder We had a long discussion about invasive bladder cancer. We discussed the fact that once urothelial cancer invades the bladder muscle layer it can potentially invade the blood vessels and lymphatic channels and spread throughout the body. Once urothelial cancer spreads to distant organs, the opportunity for cure is rare, so we have the best shot for cure with aggressive surgical intervention. Thusfar we don't have evidence that this has invaded the muscle wall, but through the basement membrane We discussed radical cystectomy and the potential complications associated with it, including a 2-3% perioperative mortality risk, and the risk of complications is about 60%. We also discussed about 20-30% of patients need to go to a rehab facility after surgery and about 25% return to the hospitalfor complications. The patient and his family had many questions and we went over these carefully. We will either schedule at main, or per patient's request closer to home. [place]. Selvin Olvera MD Urology resident Scribed for Dr. Jose Garcia by anastasiia Munoz scribe on 09/14/2022 I agree with the Chief Complaint, ROS, and Past Histories independently gathered by the clinical net application support specialist including scribe and or medical student and or SARAVANAN and or resident or fellow and the remaining scribed note accurately describes my personal service to the patient. Jose Garcia MD, MS [facility] documented in this encounterRiverview [facility] Institute09-09-2022 History of Present illness Narrative* I reviewed him at the clinic today. He underwent coronary bypass grafting x3 and mitral valve repair and left atrial appendage occlusion on June 04 from which she made an excellent recovery. At review today he remains very well still has the NG tube and overall has made an excellent recovery. * Is being followed up by Dr. Uriarte and is due for the follow-up in the near future. He has not had any rehab yet. 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 Date:05/27/22 1. Dyspnea (R06.00: Dyspnea, unspecified) 2. Other chest pain (R07.89: Other chest pain) 3. Severe mitral regurgitation (I34.0: Nonrheumatic mitral (valve) insufficiency) 4. 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 Coronary artery disease (I25.10: Atherosclerotic heart disease of [place] coronary artery without angina pectoris) 6. PAF (paroxysmal atrial fibrillation) (I48.0: Paroxysmal atrial fibrillation) 7. SSS (sick sinus syndrome) (I49.5: Sick sinus syndrome) 8. Pacemaker (Z95.0: Presence of cardiac pacemaker) 9. Bladder cancer (C67.9: Malignant neoplasm of bladder, unspecified) 10. Chronic GERD (K21.9: Gastro-esophageal reflux disease without esophagitis) 11. BPH without urinary obstruction (N40.0: Benign prostatic hyperplasia without lower urinary tract symptoms) 12. No contraindication to deep vein thrombosis (DVT) prophylaxis (Z78.9: Other specified health status) Orders: amiodarone + Dextrose 5% in Water intravenous solution 100 mL, 150 mg = 100 mL, Soln-IV, IV Piggyback, Once, Stop date 05/27/22 15:00:00 EDT, Routine, Start date 05/27/22 15:00:00 EDT, 600 mL/hr, Infuse over 10 minute(s) amiodarone 360 mg [0.5 mg/min] + Dextrose 5% in Water intravenous solution 200 mL, 200 mL, IV, 16.67 mL/hr, for 18 hour(s), Stop date 05/28/22 15:39:00 EDT, Routine, Start date 05/27/22 21:40:00 EDT, 12 hour(s), Total volume (mL): 200, 79 kg, 2, m2 amiodarone 360 mg [1 mg/min] + Dextrose 5% in Water intravenous solution 200 mL, 200 mL, IV, 33.33 mL/hr, for 6 hour(s), Stop date 05/27/22 21:39:00 EDT, Routine, Start date 05/27/22 15:40:00 EDT, 6 hour(s), Total volume (mL): 200, 79 kg, 2, m2 fentanyl, 50 microgram = 1 mL, Injection, IV Push, q2min PRN Other (see comment) for 4 dose(s), Stop date Limited # of times, Routine, Start date 05/27/22 10:17:00 EDT, 05/27/22 10:17:00 EDT heparin, 1,000 unit(s) = 500 mL, Soln-IV, Misc, Once PRN Other (see comment), Routine, Start date 05/27/22 10:17:00 EDT heparin, 1,000 unit(s) = 500 mL, Soln-IV, Misc, Once PRN Other (see comment), Routine, Start date 05/27/22 10:17:00 EDT heparin, 5,000 unit(s) = 5 mL, Injection, IV Push, q2min PRN Other (see comment) for 4 dose(s), Stop date Limited # of times, Routine, Start date 05/27/22 10:17:00 EDT heparin, 1,000 unit(s) = 500 mL, Soln-IV, Misc, Once PRN Other (see comment), Routine, Start date 05/27/22 10:17:00 EDT iopamidol, = 50 mL, Injection, IV Push, q5min PRN Other (see comment) for 4 dose(s), Stop date Limited # of times, Routine, Start date 05/27/22 10:17:00 EDT iopamidol, = 200 mL, Injection, IV Push, q5min PRN Other (see comment) for 4 dose(s), Stop date Limited # of times, Routine, Start date 05/27/22 10:17:00 EDT lidocaine, 100 mg, 10 mL, Injection, SubCutaneous, q5min PRN Other (see comment) for 3 dose(s), Stop date Limited # of times, Routine, Start date 05/27/22 10:17:00 EDT midazolam, 1 mg = 1 mL, Injection, IV Push, q2min PRN Other (see comment) for 4 dose(s), Stop date Limited # of times, Routine, Start date 05/27/22 10:17:00 EDT, 05/27/22 10:17:00 EDT niCARdipine 20 mg + Sodium Chloride 0.9% intravenous solution 200 mL, 200 mL, IV, titrate per protocol, Routine, Start date 05/27/22 10:17:00 EDT, Total volume (mL): 200, 79 kg, Use as directed for radial cocktail, 2, m2 nitroglycerin 50 mg [5 mcg/min] + Dextrose 5% in Water intravenous solution 250 mL, 250 mL, IV, 1.5 mL/hr, Routine, Start date 05/27/22 10:17:00 EDT, 166.7 hour(s), Total volume (mL): 250, 79 kg, 2, m2 Sodium Chloride 0.9% intravenous solution 1,000 mL, 1,000 mL, IV, 75 mL/hr, Routine, Start date 05/27/22 10:15:00 EDT, 13.3 hour(s), Total volume (mL): 1,000, 79 kg, 2, m2 verapamil, 2.5 mg = 1 mL, Soln-IV, IV Push, q2min PRN Other (see comment), Routine, Start date 05/27/22 10:17:00 EDT, as directed for radial cocktail Communication Order Communication Order Communication Order Communication Order Communication Order Communication Order Communication Order Communication Order Communication Order CV Cardiovascular NPO Diet Oxygen Protocol Patient Education Routine Capillary Glucose POC Saline Lock Insert Extracted from: Title:Consult Note Author:Brandan MAHONEY, Judi St Date:05/27/22 ACS with possible severe cor onary ischemia. Recommend catheterization. RB AP 1. Dyspnea (R06.00: Dyspnea, unspecified) 2. Other chest pain (R07.89: Other chest pain) 3. Severe mitral regurgitation (I34.0: Nonrheumatic mitral (valve) insufficiency) 4. 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 Coronary artery disease (I25.10: Atherosclerotic heart disease of [place] coronary artery without angina pectoris) 6. PAF (paroxysmal atrial fibrillation) (I48.0: Paroxysmal atrial fibrillation) 7. SSS (sick sinus syndrome) (I49.5: Sick sinus syndrome) 8. Pacemaker (Z95.0: Presence of cardiac pacemaker) 9. Bladder cancer (C67.9: Malignant neoplasm of bladder, unspecified) 10. Chronic GERD (K21.9: Gastro-esophageal reflux disease without esophagitis) 11. BPH without urinary obstruction (N40.0: Benign prostatic hyperplasia without lower urinary tract symptoms) 12. No contraindication to deep vein thrombosis (DVT) prophylaxis (Z78.9: Other specified health status) Extracted from: Title:APSO Note Author:Vaishali IVORY MD Date: 2 1. Dyspnea (R06.00: Dyspnea, unspecified) - may be anginal equivalent, may be secondary to valvular disease as below - d/w cardiology plan for cardiac cath - CTA chest noted, no acute process Ordered: Initial Observation Care/Day High 70 min [id number] 2. Other chest pain (R07.89: Other chest pain) - plan for cardiac cath as above 3. Severe mitral regurgitation (I34.0: Nonrheumatic mitral (valve) insufficiency) - as above 4. 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 Coronary artery disease (I25.10: Atherosclerotic heart disease of [place] coronary artery without angina pectoris) - ASA 3 times a weeks, plavix daily as per his cardiology records - cath 2010 showed 30% stenosis of LAD 6. PAF (paroxysmal atrial fibrillation) (I48.0: Paroxysmal atrial fibrillation) - not on anticoagulation for previous GI bleed as per cardiology records - metoprolol 7. SSS (sick sinus syndrome) (I49.5: Sick sinus syndrome) - as below, s/p PM 8. Pacemaker (Z95.0: Presence of cardiac pacemaker) - s/p PM for SSS 9. Bladder cancer (C67.9: Malignant neoplasm of bladder, unspecified) - follows with Dr. Gonzalez, was planned to have bladder resection 05/27/2022 however with above, pt cancelled, per patient has been off plavix and eliquis x 3 days 10. Chronic GERD (K21.9: Gastro-esophageal reflux disease without esophagitis) - PPI IV 11. BPH without urinary obstruction (N40.0: Benign prostatic hyperplasia without lower urinary tract symptoms) - flomax 12. No contraindication to deep vein thrombosis (DVT) prophylaxis (Z78.9: Other specified health status) - SCDs Orders: acetaminophen, 650 mg = 2 tab(s), Tab, Oral, q6hr PRN Pain, Routine, Start date 05/26/22 18:47:00 EDT, 05/26/22 18:47:00 EDT Al hydroxide/Mg hydroxide/simethicone, 30 mL, Susp-Oral, Oral, q6hr PRN Indigestion, STAT, Start date 05/26/22 18:47:00 EDT heparin, 5,000 unit(s) = 1 mL, Injection, SubCutaneous, BID, Routine, Start date 05/26/22 21:00:00 EDT, 05/26/22 18:47:00 EDT magnesium hydroxide, 30 mL, Susp-Oral, Oral, q6hr PRN Constipation, STAT, Start date 05/26/22 18:47:00 EDT morphine, 2 mg = 1 mL, Injection, IV Push, q4hr PRN Pain for 5 day(s), Stop date 05/31/22 18:46:00 EDT, Routine, Start date 05/26/22 18:47:00 EDT, 05/26/22 18:47:00 EDT nitroglycerin, 0.4 mg = 1 tab(s), Tab, SubLingual, q5min PRN Chest pain for 3 dose(s), Stop date Limited # of times, Routine, Start date 05/26/22 18:47:00 EDT, 05/26/22 18:47:00 EDT ondansetron, 4 mg = 2 mL, Injection, IV Push, q6hr PRN Nausea, Routine, Start date 05/26/22 18:47:00 EDT, 05/26/22 18:47:00 EDT pantoprazole, 40 mg = 10 mL, Injection, IV Push, BID, Routine, Start date 05/27/22 9:00:00 EDT Ambulate with Assistance Below the Knee Intermittent Pneumatic Compression Device Cardiac Diet Cardiac Monitoring Chest Pain, AMI Quality Measures Communication Order Consult to Cardiology Evaluate Need For Continued Telemetry Extra Lav Tube Incentive Spirometry Intake and Output Lipid Panel Notify Provider Vital Signs Notify Provider Vital Signs NPO Diet Occupational Therapy Evaluate Patient, Develop a Plan of Care and Implement Plan Oxygen Protocol Physical Therapy Evaluate Patient, Develop a Plan of Care and Implement Plan Place in Status Pulse Oximetry Vital Signs Weight Extracted from: Title:Admission H & P Author:Vaishali IVORY MD Date :05/26/22 1. Dyspnea (R06.00: Dyspnea, unspecified) - may be anginal equivalent, may be secondary to valvular disease as below - will ask cardiology to evaluate - CTA chest noted, no acute process 2. Other chest pain (R07.89: Other chest pain) - telemetry, troponin - ASA, fasting lipid profile - consult [facility] cardiology 3. Severe mitral regurgitation (I34.0: Nonrheumatic mitral (valve) insufficiency) - as above 4. 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 Coronary artery disease (I25.10: Atherosclerotic heart disease of [place] coronary artery without angina pectoris) - ASA 3 times a weeks, plavix daily as per his cardiology records - cath 2010 showed 30% stenosis of LAD 6. PAF (paroxysmal atrial fibrillation) (I48.0: Paroxysmal atrial fibrillation) - not on anticoagulation for previous GI bleed as per cardiology records - metoprolol 7. SSS (sick sinus syndrome) (I49.5: Sick sinus syndrome) - as below, s/p PM 8. Pacemaker (Z95.0: Presence of cardiac pacemaker) - s/p PM for SSS 9. Chronic GERD (K21.9: Gastro-esophageal reflux disease without esophagitis) - PPI IV 10. BPH without urinary obstruction (N40.0: Benign prostatic hyperplasia without lower urinary tract symptoms) - flomax 11. No contraindication to deep vein thrombosis (DVT) prophylaxis (Z78.9: Other specified health status) - SCDs pt will be admitted for observation possible discharge in next 24 hours Orders: acetaminophen, 650 mg = 2 tab(s), Tab, Oral, q6hr PRN Pain, Routine, Start date 05/26/22 18:47:00 EDT, 05/26/22 18:47:00 EDT Al hydroxide/Mg hydroxide/simethicone, 30 mL, Susp-Oral, Oral, q6hr PRN Indigestion, STAT, Start date 05/26/22 18:47:00 EDT heparin, 5,000 unit(s) = 1 mL, Injection, SubCutaneous, BID, Routine, Start date 05/26/22 21:00:00 EDT, 05/26/22 18:47:00 EDT magnesium hydroxide, 30 mL, Susp-Oral, Oral, q6hr PRN Constipation, STAT, Start date 05/26/22 18:47:00 EDT morphine, 2 mg = 1 mL, Injection, IV Push, q4hr PRN Pain for 5 day(s), Stop date 05/31/22 18:46:00 EDT, Routine, Start date 05/26/22 18:47:00 EDT, 05/26/22 18:47:00 EDT nitroglycerin, 0.4 mg = 1 tab(s), Tab, SubLingual, q5min PRN Chest pain for 3 dose(s), Stop date Limited # of times, Routine, Start date 05/26/22 18:47:00 EDT, 05/26/22 18:47:00 EDT ondansetron, 4 mg = 2 mL, Injection, IV Push, q6hr PRN Nausea, Routine, Start date 05/26/22 18:47:00 EDT, 05/26/22 18:47:00 EDT Ambulate with Assistance Below the Knee Intermittent Pneumatic Compression Device Cardiac Diet Cardiac Monitoring Chest Pain, AMI Quality Measures Communication Order Consult to Cardiology Evaluate Need For Continued Telemetry Incentive Spirometry Intake and Output Lipid Panel Notify Provider Vital Signs Notify Provider Vital Signs NPO Diet Occupational Therapy Evaluate Patient, Develop a Plan of Care and Implement Plan Oxygen Protocol Physical Therapy Evaluate Patient, Develop a Plan of Care and Implement Plan Place in Status Pulse Oximetry Vital Signs Weight Extracted from: Title:ED Note Author:Wade CHOE Selvin GonzalezJenniffer Date: Acute chest pain (R07.9: Barbara st pain, unspecified) Shortness of breath (R06.02: Shortness of breath) Orders: pantoprazole, 40 mg = 10 mL, Injection, IV Push, Once, Stop date 05/26/22 17:31:00 EDT, STAT, Start date 05/26/22 17:31:00 EDT, 05/26/22 17:31:00 EDT Automated Diff B-Type Natriuretic Peptide Basic Metabolic Panel CBC w/ Auto Diff CTA Chest ECG 12 Lead Adult ED Cardiac Monitoring ED Physician consult Hospitalist for continued care eGFR Extra SST Tube Oxygen Saturation Oxygen Therapy PT & PTT Saline Lock Insert Troponin 0 Hr. Troponin 3 Hr. Troponin 6 Hr. Troponin 9 Hr. Future Appointments Appointment Date:06/04/2022 08:00:00 AM Scheduled Provider:Daysi GONZALEZ MD Location:[facility] Appointment Type:URO Office Visit [facility]08-31-2022 Hospital Discharge instructions Follow Up Care 05/26/2022 14:08:30 With:YMLENE DUNN Address: [address] [place] [address] Business (1) When:06/03/2022 09:15:00 Comments:Please fax DC paperwork and facesheet to office @ [phone]. Thank you! [facility]08-15-2022 Hospital Discharge instructions Patient Education 05/10/2022 09:39:00 Bladder Cancer Bladder Cancer Bladder cancer is an abnormal growth of tissue in the bladder. The bladder is the balloon-like sac in the pelvis. It collects and stores urine that comes from the kidneys through the ureters. The bladder wall is made of layers. If cancer spreads into these layers and through the wall of the bladder, it becomes more difficult to treat. What are the causes? The cause of this condition is not known. What increases the risk? The following factors may make you more likely to develop this condition: Smoking. Workplace risks (occupational exposures), such as rubber, leather, textile, dyes, chemicals, and paint. Being white. Your age. Most people with bladder cancer are over the age of 55. Being male. Having chronic bladder inflammation. Having a personal history of bladder cancer. Having a family history of bladder cancer (heredity). Having had chemotherapy or radiation therapy to the pelvis. Having been exposed to arsenic. What are the signs or symptoms? Initial symptoms of this condition include: Blood in the urine. Painful urination. Frequent bladder or urine infections. Increase in urgency and frequency of urination. Advanced symptoms of this condition include: Not being able to urinate. Low back pain on one side. Loss of appetite. Weight loss. Fatigue. Swelling in the feet. Bone pain. How is this diagnosed? This condition is diagnosed based on your medical history, a physical exam, urine tests, lab tests,imaging tests, and your symptoms. You may also have other tests or procedures done, such as: A narrow tube being inserted into your bladder through your urethra (cystoscopy) in order to view the lining of your bladder for tumors. A biopsy to sample the tumor to see if cancer is present. If cancer is present, it will then be staged to determine its severity and extent. Staging is an assessment of: The size of the tumor. Whether the cancer has spread. Where the cancer has spread. It is important to know how deeply into the bladder wall cancer has grown and whether cancer has spread to any other parts of your body. Staging may require blood tests or imaging tests, such as a CTscan, MRI, bone scan, or chest X-ray. How is this treated? Based on the stage of cancer, one treatment or a combination of treatments may be recommended. The most common forms of treatment are: Surgery to remove the cancer. Procedures that may be done include transurethral resection and cystectomy. Radiation therapy. This is high-energy X-rays or other particles. This is often used in combinationwith chemotherapy. Chemotherapy. During this treatment, medicines are used to kill cancer cells. Immunotherapy. This uses medicines to help your own immune system destroy cancer cells. Follow these instructions at home: Take urjj-anr-znzcihm and prescription medicines only as told by your health care provider. Maintain a healthy diet. Some of your treatments might affect your appetite. Consider joining a support group. This may help you learn to cope with the stress of having bladdercancer. Tell your cancer care team if you develop side effects. They may be able to recommend ways to relieve them. Keep all follow-up visits as told by your health care provider. This is important. Where to find more information [place] [employer]: www.cancer.org National Cancer Cutler (NCI): www.cancer.gov Contact a health care provider if: You have symptoms of a urinary tract infection. These include: ?Fever. ?Chills. ?Weakness. ?Muscle aches. ?Abdominal pain. ?Frequent and intense urge to urinate. ?Burning feeling in the bladder or urethra during urination. Get help right away if: There is blood in your urine. You cannot urinate. You have severe pain or other symptoms that do not go away. Summary Bladder cancer is an abnormal growth of tissue in the bladder. This condition is diagnosed based on your medical history, a physical exam, urine tests, lab tests,imaging tests, and your symptoms. Based on the stage of cancer, surgery, chemotherapy, or a combination of treatments may be recommended. Consider joining a support group. This may help you learn to cope with the stress of having bladdercancer. This information is not intended to replace advice given to you by your health care provider. Make sure you discuss any questions you have with your health care provider. Document Released: 09/14/2004 Document Revised: 08/25/2018 Document Reviewed: 08/16/2017 [employer] Patient Education Loop. Follow Up Care 04/23/2022 13:54:10 With:FADI MAHONEY, Daysi Cuba, URL Address: [facility] [address], [place] [phone]- [phone] When: Unknown [facility] [place] 08-05-2022 History of Past illness Narrative* Problem Noted Date Resolved Date Chronic kidney disease, unspecified 04/30/2022 10/01/2022 Last Assessment & Plan: Assessment: Only available BMP from OSH 03/2022 showed normal SCr 1.03. -BMP ordered by primary documented as of this encounter (statuses as of 10/02/2022) [facility]08-05-2022 History of Past illness Narrative* Problem Noted Date Resolved Date Chronic kidney disease, unspecified 04/30/2022 10/01/2022 Last Assessment & Plan: Assessment: Only available BMP from OSH 03/2022 showed normal SCr 1.03. -BMP ordered by primary documented as of this encounter (statuses as of 10/02/2022) [address]05-2022 History of Past illness Narrative* Problem Noted Date Resolved Date Chronic kidney disease, unspecified 04/30/2022 10/01/2022 Last Assessment & Plan: Assessment: Only available BMP from OS 03/2022 showed normal SCr 1.03. -BMP ordered by primary documented as of this encounter (statuses as of 10/04/2022) [address]05-2022 History of Past illness Narrative* Problem Noted Date Resolved Date Chronic kidney disease, unspecified 04/30/2022 10/01/2022 Last Assessment & Plan: Assessment: Only available BMP from OS 03/2022 showed normal SCr 1.03. -BMP ordered by primary documented as of this encounter (statuses as of 10/07/2022) [address]2022 History of Past illness Narrative* Problem Noted Date Resolved Date Chronic kidney disease, unspecified 04/30/2022 10/01/2022 Last Assessment & Plan: Assessment: Only available BMP from OS 03/2022 showed normal SCr 1.03. -BMP ordered by primary documented as of this encounter (statuses as of 10/11/2022) [address]05-2022 History of Past illness Narrative* Problem Noted Date Resolved Date Chronic kidney disease, unspecified 04/30/2022 10/01/2022 Last Assessment & Plan: Assessment: Only available BMP from OS 03/2022 showed normal SCr 1.03. -BMP ordered by primary documented as of this encounter (statuses as of 10/20/2022) [address]05-2022 History of Past illness Narrative* Problem Noted Date Resolved Date Chronic kidney disease, unspecified 04/30/2022 10/01/2022 Last Assessment & Plan: Assessment: Only available BMP from OS 03/2022 showed normal SCr 1.03. -BMP ordered by primary documented as of this encounter (statuses as of 10/22/2022) [address]05-2022 History of Past illness Narrative* Problem Noted Date Resolved Date Chronic kidney disease, unspecified 04/30/2022 10/01/2022 Last Assessment & Plan: Assessment: Only available BMP from OS 03/2022 showed normal SCr 1.03. -BMP ordered by primary documented as of this encounter (statuses as of 11/02/2022) [address]05-2022 History of Past illness Narrative* Problem Noted Date Resolved Date Chronic kidney disease, unspecified 04/30/2022 10/01/2022 Last Assessment & Plan: Assessment: Only available BMP from OS 03/2022 showed normal SCr 1.03. -BMP ordered by primary documented as of this encounter (statuses as of 11/20/2022) [address]05-2022 History of Past illness Narrative* Problem Noted Date Resolved Date Chronic kidney disease, unspecified 04/30/2022 10/01/2022 Last Assessment & Plan: Assessment: Only available BMP from OS 03/2022 showed normal SCr 1.03. -BMP ordered by primary documented as of this encounter (statuses as of 01/19/2023) [address]05-2022 History of Past illness Narrative* Problem Noted Date Diagnosed Date Resolved Date Chronic kidney disease, unspecified 04/30/2022 10/01/2022 Last Assessment & Plan: Assessment: Only available BMP from OS 03/2022 showed normal SCr 1.03. -BMP ordered by primary documented as of this encounter (statuses as of 06/09/2023) [address]05-2022 History of Past illness Narrative* Problem Noted Date Diagnosed Date Resolved Date Chronic kidney disease, unspecified 04/30/2022 10/01/2022 Last Assessment & Plan: Assessment: Only available BMP from OS 03/2022 showed normal SCr 1.03. -BMP ordered by primary documented as of this encounter (statuses as of 06/21/2023) [address]05-2022 History of Past illness Narrative* Problem Noted Date Diagnosed Date Resolved Date Chronic kidney disease, unspecified 04/30/2022 10/01/2022 Last Assessment & Plan: Assessment: Only available BMP from OS 03/2022 showed normal SCr 1.03. -BMP ordered by primary documented as of this encounter (statuses as of 06/22/2023) [address]05-2022 History of Past illness Narrative* Problem Noted Date Diagnosed Date Resolved Date Chronic kidney disease, unspecified 04/30/2022 10/01/2022 Last Assessment & Plan: Assessment: Only available BMP from [facility] 03/2022 showed normal SCr 1.03. -BMP ordered by primary documented as of this encounter (statuses as of 06/22/2023) [address]05-2022 History of Past illness Narrative* Problem Noted Date Diagnosed Date Resolved Date Chronic kidney disease, unspecified 04/30/2022 10/01/2022 Last Assessment & Plan: Assessment: Only available BMP from [facility] 03/2022 showed normal SCr 1.03. -BMP ordered by primary documented as of this encounter (statuses as of 09/06/2023) [address]05-2022 History of Past illness Narrative* Problem Noted Date Diagnosed Date Resolved Date Chronic kidney disease, unspecified 04/30/2022 10/01/2022 Last Assessment & Plan: Assessment: Only available BMP from [facility] 03/2022 showed normal SCr 1.03. -BMP ordered by primary documented as of this encounter (statuses as of 12/20/2023) [address]05-2022 History of Past illness Narrative* Problem Noted Date Diagnosed Date Resolved Date Chronic kidney disease, unspecified 04/30/2022 10/01/2022 Last Assessment & Plan: Assessment: Only available BMP from OS 03/2022 showed normal SCr 1.03. -BMP ordered by primary documented as of this encounter (statuses as of 12/26/2023) [address]05-2022 History of Past illness Narrative* Problem Noted Date Diagnosed Date Resolved Date Chronic kidney disease, unspecified 04/30/2022 10/01/2022 Last Assessment & Plan: Assessment: Only available BMP from OSH 03/2022 showed normal SCr 1.03. -BMP ordered by primary documented as of this encounter (statuses as of 01/05/2024) [facility]08-05-2022 History of Past illness Narrative* Problem Noted Date Diagnosed Date Resolved Date Chronic kidney disease, unspecified 04/30/2022 10/01/2022 Last Assessment & Plan: Assessment: Only available BMP from OSH 03/2022 showed normal SCr 1.03. -BMP ordered by primary documented as of this encounter (statuses as of 10/27/2023) [facility]08-02-2022 NoteEXAMINATION: XR CHEST 2 V HISTORY: Essential hypertension ; presurgical evaluation COMPARISON: XR chest 01/27/2022 FINDINGS: LUNGS: Hyperexpanded lungs with blunting of left posterior lateral costophrenic angles. VASCULATURE: No increased pulmonary vasculature. PLEURA: No pneumothorax, effusion, or pleural thickening. CARDIAC: Stable cardiomegaly. Stable cardiac pacer. MEDIASTINUM: No visible mass or adenopathy. BONES: No fracture or visible bone lesion. OTHER: Negative. IMPRESSION: 1. Hyperexpanded lungs compatible with COPD. 2. Stable cardiomegaly. 3. Persistent small left pleural effusion versus left basilar infiltrates. Electronically authenticated by: SARAH ROSA Date: 2022-04-27 10:08[facility]04-10-2020 Evaluation + Plan note Future Appointments Appointment Date:12/02/2022 08:00:00 AM Scheduled Provider: Location:FT.CARDIO Appointment Type:NCV ICD (FT) Appointment Date:01/03/2023 11:00:00 AM Scheduled Provider:Santosh MAHMOOD CNP Location:[facility]Cardiology Clinic Appointment Type:Cardiology Follow Up (FT) [facility] 04-10-2020 Evaluation + Plan note Future Appointments Appointment Date:12/02/2022 08:00:00 AM Scheduled Provider: Location:FT.CARDIO Appointment Type:NCV ICD (FT) Appointment Date:01/03/2023 11:00:00 AM Scheduled Provider:Santosh MAHMOOD CNP Location:[facility]Cardiology Clinic Appointment Type:Cardiology Follow Up (FT) Diagnostic Tests Pending * Urine Culture 11/23/22 [facility]03-28-2018 History of Present illness Artem mcleod was seen at the request of a local colleague for a 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 On December 21, 2017 he underwent surgical excision. He had excision ofthe skin, parotidectomy, and neck dissection. He was found to have more skin involvement than we thought. The pathology showed squamous cell carcinoma involving the parotid and adjacent tissues. The margins were negative. He also had 3 positive nodes. He completed his radiation therapy in February 2018. He had a TSH in June 2020 was normal. He also had a chest x-ray in June 2020 which was negative. He does have some issues with dysphagia. He seems to be managing. He also tends to accumulate wax in his ears. He is here today ahead of his appointment because he has had some significant pressure on the side of the throat and face. 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 On December 21, 2017 he underwent surgical excision. He had excision ofthe skin, parotidectomy, and neck dissection. He was found to have more skin involvement than we thought. The pathology showed squamous cell carcinoma involving the parotid and adjacent tissues. The margins were negative. He also had 3 positive nodes. He completed his radiation therapy in February 2018. He had a TSH in June 2020 was normal. He also had a chest x-ray in June 2020 which was negative. He does have some issues with dysphagia. He seems to be managing. 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 On December 21, 2017 he underwent surgical excision. He had excision ofthe skin, parotidectomy, and neck dissection. He was found to have more skin involvement than we thought. The pathology showed squamous cell carcinoma involving the parotid and adjacent tissues. The margins were negative. He also had 3 positive nodes. He completed his radiation therapy in February 2018. He had a TSH in October 2021 was normal. He also had a chest x-ray in every 2021 which was negative. He does have some issues with dysphagia. He eventually had a dilation but now has significant iss ues with gastroesophageal reflux disease and heartburn he seems to be managing. 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 On December 21, 2017 he underwent surgical excision. He had excision ofthe skin, parotidectomy, and neck dissection. He was found to have more skin involvement than we thought. The pathology showed squamous cell carcinoma involving the parotid and adjacent tissues. The margins were negative. He also had 3 positive nodes. He completed his radiation therapy in February 2018. He had a TSH in October 2021 was normal. He also had a chest x-ray in every 2021 which was negative. He does have some issues with dysphagia. He was eventually dilated. He ended up getting heart jefferson josafat since his last visit. Interestingly that took care of a lot of his symptoms.[facility] Work Phone: [phone] 109-350302-11-2016 Miscellaneous Notes* Telephone Encounter - Roxy Ruffin - 11/06/2015 1:07 PM EST Patient calling for a status in regards to message below. Please review. * Telephone Encounter - Lela Thompson - 11/05/2015 1:32 PM EST Patient is calling in regards to the CT and blood work he had done at [facility] on 10/29/2015. Patient would like to know if he needs to schedule a follow up appointment with the provider. Please advise. [facility]* Clinical Note Date No Information [facility] Work Phone: Discharge summaryJasmine [place] [phone] Discharge Summary Signed Patient: Bravo Arce MR#: [id number] : 1940 Acct:[id number] Age/Sex: 84 / M Adm Date: 5 Loc: Room: [address] [place] [address]: Jorge Clifton MD Copies to: MD Jen Haas APRN Marcia E Braun, MD~ Providers Date of Discharge: 11/30/24 Discharging Provider: Jen Acevedo Primary Care Provider: Mylene Dunn Consults: 11/18/24 14:00 Consult to Adult Hospitalist Routine Comment: Consulting Provider: Community Hospitalist (Adult) Reason For Exam: CHF, A Fib Has Provider Been Notified: Yes Date of Notification: 11/18/24 Time of Notification: 14:05 Consult to Dietitian Routine Comment: Reason for Consult: Other Other Reason: Rehab admission Consult to Occupational Therapy Routine Comment: Physician Instructions: Consult to OT for:: Evaluation and Treat Consult to Physical Therapy Routine Comment: Physician Instructions: Consult to PT for:: Evaluation and Treat Speech Admit Screen Routine Comment: 11/18/24 14:06 Consult to Speech Therapy Routine Comment: Reason for ST Consult: Bedside Swallow Eval & Tx Cognitive Eval & Tx Speech/Language Eval & Tx Diet per ST Recommendations: Yes Modified Barium Swallow Study, If Recommended: Yes 11/19/24 10:26 Consult to Dietitian Routine Comment: Reason for Consult: Tube Feeding Eval & Order 11/24/24 11:30 MBS [Speech Therapy Modified Barium Swallow] ONCE Comment: to be completed on Tuesday11/26/[address] Recommendations: Yes 11/26/24 12:27 Consult to Palliative Care Doctor Routine Comment: Consulting Provider: Chris Arce Reason For Exam: goals of care, dysphagia Has Provider Been Notified: Yes Date of Notification: 11/26/24 Time of Notification: 12:36 Discharge Diagnosis (1) Counseling regarding advance care planning and goals of care: (2) Impaired mobility and activities of daily living: (3) Closed displaced fracture of left femoral neck: (4) Dysphagia: Final Diagnosis Final Discharge Diagnosis: As above Summary Hospital Course Hospital course: Mr. Arce is a 84 year old male with past medical history of chronic A-fib s/p left atrial appendage ligation in May 2022, on Plavix for CAD s/p CABGx 3 vessels, mitral regurg s/p repair, permanent afib with sick sinus syndrome s/p pacemaker placement, parathyroid gland neoplasm s/p treatment in remission, BPH with LUTS, GERD who presents with multifactorial functional decline in the setting of left femoral neck fracture s/p femoral neck repair. He recently had a prolonged hospitalization. He presented to [facility] about 3 weeks ago after his witnessed an episode where he went blank and froze . She witnessed the event and lowered him to the floor per her report. He was intubated on the ambulance ride to [facility]. He was extubated after 48 hours. She tells me he was worked up for stroke or seizure, and was transferred to [facility] at family request after having a bad reaction to Geoalexis prompting reintubation. He was again subsequently extubated at after 2-3 days. She says the doctors at told her they did not have any answer as to the initial episode prompting his presentation to [facility]. She tells me that he has had 4 or 5 of these episodes over the past 20 years. He was unable to have an MRI due to incompatible pacemaker. [facility] to detention facility where hehad persistent hip pain. reports no trauma, but notes he has been having nagging hip pain since July. She reports urging the detention facility to do an x-ray which demonstrated right femoral neck fracture. He is now s/p femoral neck repair. He is also s/p PEG placement due to dysphagia. Patient was recommended acute rehab for strengthening and was admitted here on 11/19. Patient remained stable medically and had no acute issues on acute rehab. He was evaluated and treated by speech therapy with multiple MBS studies performed. He continues to have significant dysphagia with speech therapy recommendations to continue primary nutrition and meds via PEG tube. He is to continue speechtherapy in outpatient settings. Palliative care was consulted during this admission. Patient's CODE STATUS is DNR CCA without intubation. From the functional standpoint he did very well. He is ambulatory household andcommunity distances with a walker only requiring supervision. Able to do some stairs with standby assistance. Mod I withtransfers and bed mobility. Patientwill be discharged home with [facility] services this afternoon. will transport. No additional DME is needed at [place]. Condition Condition at Discharge: Stable Time Spent with Patient Time spent providing/coordinating discharge services (# min): 35 Specific discharge activities: Total time spent discharging this patient > 30 minutes Greater than 30 minutes spent preparing the patient for discharge including the following: Discussion of the hospital stay with patient and/or family Instructions for continuing care to all relevant caregivers Reviewing discharge plan with medical staff, social work, care management, and nursing staff Supervision of discharge paperwork, medication reconciliation, prescriptions, and outpatient appointments Prescribed necessary DME at discharge when indicated Discharge Plan Discharge Plan Patient Disposition: Home Health [facility] Activity: Ambulate as Tolerated Diet: NPO Comment: NPO-ice chips only Additional Instructions: -Code status:DNRCCA without intubation. -Activity: as tolerated, with assistance as needed. -Posterior hip precautions. -Diet: NPO, small ice chips only. -PEG tube care, per protocol-see education attached. -Tube feeds: Osmolite 1.2 formula, 335mL Bolus, 5x/day (at midnight, 6a.m., 12p.m., 4p.m., 8p.m.), water flushes 100mL 5x/day (recommended to use when administering medications/flushing tube before and after). Medications should beflushed with at least 30mL of water. -Head of bed at 30-45 degrees at all times, during tube feeds and after to prevent aspiration. -Weigh yourself daily at the same time every morning, keep a log for follow-up appointments. If gain >2lbs/day or 5lbs/week please contact your primary care provider. Your Home Health agency is [facility] ( ). They will contact you 24-48 hours after discharge to schedule a day/time to meet withyou at your home to establish care. You have been given prescriptions for new and/or needed medications. These prescriptions are fora one-time fill only, with no re-fills. For further re- fills going forward, you will need to address with your PCP at your follow up appointment, or by calling your PCP?s office prior to the prescriptions running out. NOTE: please call within 24 hours if you need to cancel or change any follow up appointments. Arrive early to all follow up appointments, bring current medication list, photo ID and any insurance card(s) to all future follow ups (listed below). Please remember to wear a mask to all appointments.If you develop any symptoms (cough, fever/chills, shortness of breath, sore throat, nausea/vomiting, etc.) please contact your provider's office to inform them prior to your appointment. Instructions: How to give a tube feeding, Percutaneous endoscopic gastrostomy (PEG) - Discharge instructions, Enteral (tube) feeding Prescriptions: New atorvastatin 20 mg Tablet 20 mg PEG Tube QPM 30 Days Qty: 30 0RF clopidogrel 75 mg Tablet 75 mg PEG Tube DAILY 30 Days Qty: 30 0RF acetaminophen 650 mg/20.3 mL Suspension 650 mg PEG Tube Q6H 30 Days Qty: 2436 0RF latanoprost 0.005 % Drops 1 drp Eye-Both QHS Qty: 2.5 0RF finasteride 5 mg Tablet 5 mg PEG Tube DAILY 30 Days Qty: 30 0RF trazodone 50 mg Tablet 50 mg PEG Tube QHS PRN (Reason: Insomnia) 30 Days Qty: 30 0RF sennosides [senna] 8.8 mg/5 mL Syrup 8.8 mg PEG Tube QHS 30 Days Qty: 150 0RF metoprolol tartrate 50 mg Tablet 50 mg PEG Tube BID 30 Days Qty: 60 0RF melatonin 5 mg Tablet 10 mg PEG Tube QHS 30 Days Qty: 60 0RF Discontinued metoprolol tartrate 50 mg Tablet 50 mg feeding tube BID acetaminophen 325 mg capsule 975 mg feeding tube TID PRN (Reason: pain) atorvastatin 20 mg tablet 20 mg feeding tube QPM guaifenesin 100 mg/5 mL liquid 200 mg feeding tube Q4HR PRN (Reason: congestion) lidocaine [Aspercreme (lidocaine)] 4 % adhesive patch,medicated 1 patch topical Q12HR PRN (Reason: pain) melatonin 5 mg capsule 5 mg feeding tube QHS polyethylene glycol 3350 [Miralax] 17 gram powder in packet 17 g feeding tube DAILY senna 8.6 mg capsule 17.2 mg feeding tube QHS doxycycline hyclate 100 mg capsule 100 mg PO BID Qty: 4 0RF docusate sodium 50 mg/5 mL Liquid 100 mg PO BID 30 Days Qty: 600 0RF finasteride 5 mg tablet 5 mg PO .GTUBE 30 Days Qty: 0 0RF Rx Instructions: FreeTextSi tablet once a day; Note: Source Status: Taking; Provider: Mona Templeton ( ) clopidogrel 75 mg tablet 75 mg feeding tube DAILY Rx Instructions: FreeTextSi tablet Orally Once a day; Note: Source Status: Taking; Provider: Mona Templeton ( ) latanoprost 0.005 % drops 1 drp ophthalmic (eye) QHS Rx Instructions: FreeTextSi drop into affected eye in the evening Ophthalmic Once a day; Note: Source Status: Taking; Provider: Mona Templeton ( ) Other Ambulatory Orders: Initiate Home Health (Routine) Timeframe: 1 Day Location: Determined by Patient Ordered By: Jorge Clifton DME Home Medical Equipment (Routine) Timeframe: 1 Day Location: Determined by Patient Ordered By: Jorge Clifton Follow Up: Mylene Dunn MD [Primary Care Provider] - 12/03/24 2:30 pm (Call to schedule follow up appointment with PCP after discharge) Kayden Odom MD [Active Staff] - (Follow up with rehab physician as needed) Godwin Gordillo DO [Active Staff] - 12/07/24 9:45 am (Orthopedic surgeon ) Continuity of Care Document Health Concerns: A [facility] screening has identified you as FRAIL or AT RISK FOR FRAILTY. This puts you at a higher risk for infection, illness, falls,and other injuries. Here are four ways to help you reduce your risk of frailty: 1. IDENTIFY EARLY SIGNS OF FRAILTY ? Discuss contributing factors and concerns with your doctor 2. BE ACTIVE ? Walking and light strengthening exercises will help reduce weakness 3. EAT WELL ? Aim for three healthy meals a day that are high in protein 4. THINKPOSITIVE ? Keep your mind active by being sociable and continuing to learn References: Stay Strong:Four Ways to Beat the Frailty Risk https://www.[facility]/health/hhbdidax-cwi-xssjvsvawq/st kj-fijbtt-kjui- ngmc-tb-cusl-uly-vtpygel-swyo Exam Physical Exam Vital Signs: Temp Pulse Resp BP Pulse Ox O2 Del Method O2 Flow Rate 98 F 89 14 107/72 97 Room Air 1 11/30/24 06:27 11/30/24 06:27 11/30/24 06:27 11/30/24 06:27 11/30/24 06:27 11/30/24 06:27 11/23/24 00:00 FiO2 97 11/22/24 02:18 Diagnostic Studies Completed and Pending Studies Labs on day of discharge: 11/30/24 11:52: POC Glucose 89, POC Glucose Comment Glu2: cleaned meter 11/30/24 06:31: POC Glucose 108 11/30/24 00:07: POC Glucose 124 11/29/24 18:15: POC Glucose 120, POC Glucose Comment Glu2: cleaned meter I reviewed the history and the relevant portions of the chart, including currentorders, allied health and product consultant notes, labs/imaging and plan of care as above. Documented By: Jen Acevedo APRN 11/30/24 1 236 Signed By: 11/30/24 1246 11/30/24 1448 [facility] Jen Aceved[facility] Note Date/Time November 30, 2024 1:[address] [facility] [address] [place] [address] Discharge Summary Signed Patient: Bravo Arce MR#: [id number] : 1940 Acct:[id number] Age/Sex: 84 / M Adm Date: 5 Loc: Room: [address] [place] [address]: Jorge Clifton MD Copies to: MD Jen Haas APRN Marcia E Braun, MD~ Providers Date of Discharge: 11/30/24 Discharging Provider: Jen Acevedo Primary Care Provider: Mylene Dunn Consults: 11/18/24 14:00 Consult to Adult Hospitalist Routine Comment: Consulting Provider: Community Hospitalist (Adult) Reason For Exam: CHF, A Fib Has Provider Been Notified: Yes Date of Notification: 11/18/24 Time of Notification: 14:05 Consult to Dietitian Routine Comment: Reason for Consult: Other Other Reason: Rehab admission Consult to Occupational Therapy Routine Comment: Physician Instructions: Consult to OT for:: Evaluation and Treat Consult to Physical Therapy Routine Comment: Physician Instructions: Consult to PT for:: Evaluation and Treat Speech Admit Screen Routine Comment: 11/18/24 14:06 Consult to Speech Therapy Routine Comment: Reason for ST Consult: Bedside Swallow Eval & Tx Cognitive Eval & Tx Speech/Language Eval & Tx Diet per ST Recommendations: Yes Modified Barium Swallow Study, If Recommended: Yes 11/19/24 10:26 Consult to Dietitian Routine Comment: Reason for Consult: Tube Feeding Eval & Order 11/24/24 11:30 MBS [Speech Therapy Modified Barium Swallow] ONCE Comment: to be completed on Tuesday11/26/[address] Recommendations: Yes 11/26/24 12:27 Consult to Palliative Care Doctor Routine Comment: Consulting Provider: Chris Arce Reason For Exam: goals of care, dysphagia Has Provider Been Notified: Yes Date of Notification: 11/26/24 Time of Notification: 12:36 Discharge Diagnosis (1) Counseling regarding advance care planning and goals of care: (2) Impaired mobility and activities of daily living: (3) Closed displaced fracture of left femoral neck: (4) Dysphagia: Final Diagnosis Final Discharge Diagnosis: As above Summary Hospital Course Hospital course: Mr. Arce is a 84 year old male with past medical history of chronic A-fib s/p left atrial appendage ligation in May 2022, on Plavix for CAD s/p CABGx 3 vessels, mitral regurg s/p repair, permanent afib with sick sinus syndrome s/p pacemaker placement, parathyroid gland neoplasm s/p treatment in remission, BPH with LUTS, GERD who presents with multifactorial functional decline in the setting of left femoral neck fracture s/p femoral neck repair. He recently had a prolonged hospitalization. He presented to [facility] about 3 weeks ago after his witnessed an episode where he went blank and froze . She witnessed the event and lowered him to the floor per her report. He was intubated on the ambulance ride to [facility]. He was extubated after 48 hours. She tells me he was worked up for stroke or seizure, and was transferred to [facility] at family request after having a bad reaction to Geodon prompting reintubation. He was again subsequently extubated at after 2-3 days. She says the doctors at told her they did not have any answer as to the initial episode prompting his presentation to [facility]. She tells me that he has had 4 or 5 of these episodes over the past 20 years. He was unable to have an MRI due to incompatible pacemaker. [facility] to detention facility where hehad persistent hip pain. reports no trauma, but notes he has been having nagging hip pain since July. She reports urging the detention facility to do an x- ray which demonstrated right femoral neck fracture. He is now s/p femoral neck repair. He is also s/p PEG placement due to dysphagia. Patient was recommended acute rehab for strengthening and was admitted here on 11/19. Patient remained stable medically and had no acute issues on acute rehab. He was evaluated and treated by speech therapy with multiple MBS studies performed. He continues to have significant dysphagia with speech therapy recommendations to continue primary nutrition and meds via PEG tube. He is to continue speech therapy in outpatient settings. Palliative care was consulted during this admission. Patient's CODE STATUS is DNR CCA without intubation. From the functional standpoint he did very well. He is ambulatory household andcommunity distances with a walker only requiring supervision. Able to do some stairs with standby assistance. Mod I with transfers and bed mobility. [facility]will [facility] this afternoon. will transport. No additional DME is needed at [place]. Condition Condition at Discharge: Stable Time Spent with Patient Time spent providing/coordinating discharge services (# min): 35 Specific discharge activities: Total time spent discharging this patient > 30 minutes Greater than 30 minutes spent preparing the patient for discharge including the following: Discussion of the hospital stay with patient and/or family Instructions for continuing care to all relevant caregivers Reviewing discharge plan with medical staff, social work, care management, and nursing staff Supervision of discharge paperwork, medication reconciliation, prescriptions, and outpatient appointments Prescribed necessary DME at discharge when indicated Discharge Plan Discharge Plan Patient Disposition: Home Health [facility] Activity: Ambulate as Tolerated Diet: NPO Comment: NPO-ice chips only Additional Instructions: -Code status:DNRCCA without intubation. -Activity: as tolerated, with assistance as needed. -Posterior hip precautions. -Diet: NPO, small ice chips only. -PEG tube care, per protocol-see education attached. -Tube feeds: Osmolite 1.2 formula, 335mL Bolus, 5x/day (at midnight, 6a.m., 12p.m., 4p.m., 8p.m.), water flushes 100mL 5x/day (recommended to use when administering medications/flushing tube before and after). Medications should beflushed with at least 30mL of water. -Head of bed at 30-45 degrees at all times, during tube feeds and after to prevent aspiration. -Weigh yourself daily at the same time every morning, keep a log for follow-up appointments. If gain >2lbs/day or 5lbs/week please contact your primary care provider. Your Home Health agency is [facility] ( ). They will contact you 24-48 hours after discharge to schedule a day/time to meet withyou at your home to establish care. You have been given prescriptions for new and/or needed medications. These prescriptions are for a one-time fill only, with no re-fills. For further re- fills going forward, you will need to address with your PCP at your follow up appointment, or by calling your PCP?s office prior to the prescriptions running out. NOTE: please call within 24 hours if you need to cancel or change any follow up appointments. Arrive early to all follow up appointments, bring current medication list, photo ID and any insurance card(s) to all future follow ups (listed below). Please remember to wear a mask to all appointments. If you develop any symptoms (cough, fever/chills, shortness of breath, sore throat, nausea/vomiting, etc.) please contact your provider's office to inform them prior to your appointment. Instructions: How to give a tube feeding, Percutaneous endoscopic gastrostomy (PEG) - Discharge instructions, Enteral (tube) feeding Prescriptions: New atorvastatin 20 mg Tablet 20 mg PEG Tube QPM 30 Days Qty: 30 0RF clopidogrel 75 mg Tablet 75 mg PEG Tube DAILY 30 Days Qty: 30 0RF acetaminophen 650 mg/20.3 mL Suspension 650 mg PEG Tube Q6H 30 Days Qty: 2436 0RF latanoprost 0.005 % Drops 1 p Eye-Both QHS Qty: 2.5 0RF finasteride 5 mg Tablet 5 mg PEG Tube DAILY 30 Days Qty: 30 0RF trazodone 50 mg Tablet 50 mg PEG Tube QHS PRN (Reason: Insomnia) 30 Days Qty: 30 0RF sennosides [senna] 8.8 mg/5 mL Syrup 8.8 mg PEG Tube QHS 30 Days Qty: 150 0RF metoprolol tartrate 50 mg Tablet 50 mg PEG Tube BID 30 Days Qty: 60 0RF melatonin 5 mg Tablet 10 mg PEG Tube QHS 30 Days Qty: 60 0RF Discontinued metoprolol tartrate 50 mg Tablet 50 mg feeding tube BID acetaminophen 325 mg capsule 975 mg feeding tube TID PRN (Reason: pain) atorvastatin 20 mg tablet 20 mg feeding tube QPM guaifenesin 100 mg/5 mL liquid 200 mg feeding tube Q4HR PRN (Reason: congestion) lidocaine [Aspercreme (lidocaine)] 4 % adhesive patch,medicated 1 patch topical Q12HR PRN (Reason: pain) melatonin 5 mg capsule 5 mg feeding tube QHS polyethylene glycol 3350 [Miralax] 17 gram powder in packet 17 g feeding tube DAILY senna 8.6 mg capsule 17.2 mg feeding tube QHS doxycycline hyclate 100 mg capsule 100 mg PO BID Qty: 4 0RF docusate sodium 50 mg/5 mL Liquid 100 mg PO BID 30 Days Qty: 600 0RF finasteride 5 mg tablet 5 mg PO .GTUBE 30 Days Qty: 0 0RF Rx Instructions: FreeTextSi tablet once a day; Note: Source Status: Taking; Provider: Mona Templeton ( ) clopidogrel 75 mg tablet 75 mg feeding tube DAILY Rx Instructions: FreeTextSi tablet Orally Once a day; Note: Source Status: Taking; Provider: Mona Templeton ( ) latanoprost 0.005 % drops 1 drp ophthalmic (eye) QHS Rx Instructions: FreeTextSi drop into affected eye in the evening Ophthalmic Once a day; Note: Source Status: Taking; Provider: Mona Templeton ( ) Other Ambulatory Orders: Initiate Home Health (Routine) Timeframe: 1 Day Location: Determined by Patient Ordered By: Jorge FRY Home Medical Equipment (Routine) Timeframe: 1 Day Location: Determined by Patient Ordered By: Jorge Clifton Follow Up: Mylene Dunn MD [Primary Care Provider] - 12/03/24 2:30 pm (Call to schedule follow up appointment with PCP after discharge) Kayden Odom MD [Active Staff] - (Follow up with rehab physician as needed) Godwin Gordillo DO [Active Staff] - 12/07/24 9:45 am (Orthopedic surgeon ) Continuity of Care Document Health Concerns: A [facility] screening has identified you as FRAIL or AT RISK FOR FRAILTY. This puts you at a higher risk for infection, illness, falls,and other injuries. Here are four ways to help you reduce your risk of frailty: 1. IDENTIFY EARLY SIGNS OF FRAILTY ? Discuss contributing factors and concerns with your doctor 2. BE ACTIVE ? Walking and light strengthening exercises will help reduce weakness 3. EAT WELL ? Aim for three healthy meals a day that are high in protein 4. THINK POSITIVE ? Keep your mind active by being sociable and continuing to learn References: Stay Strong: Four Ways to Beat the Frailty Risk https://www.[facility].org/health/sjeuhkid-jby-wesumwmgxj/jqxl-fdwmdf-yvgs- lbvg-mm-lcuu-vab-qlvwfjb-zcce Exam Physical Exam Vital Signs: Temp Pulse Resp BP Pulse Ox O2 Del Method O2 Flow Rate 98 F 89 14 107/72 97 Room Air 1 11/30/24 06:27 11/30/24 06:27 11/30/24 06:27 11/30/24 06:27 11/30/24 06:27 11/30/24 06:27 11/23/24 00:00 FiO2 97 11/22/24 02:18 Diagnostic Studies Completed and Pending Studies Labs on day of discharge: 11/30/24 11:52: POC Glucose 89, POC Glucose Comment Glu2: cleaned meter 11/30/24 06:31: POC Glucose 108 11/30/24 00:07: POC Glucose 124 11/29/24 18:15: POC Glucose 120, POC Glucose Comment Glu2: cleaned meter <Statement entered by Jorge Clifton MD - 11/30/24 14:48> I reviewed the history and the relevant portions of the chart, including currentorders, allied health and product consultant notes, labs/imaging and plan of care as above. Documented By: Jen Acevedo APRN 11/30/24 1 236 Signed By: <Electronically signed by GILL Acevedo> 11/30/24 1246 <Electronically signed by Jorge Clifton MD> 11/30/24 1448 [facility] Work Phone: Discharge summary* Clinical Note Date No Information [facility] Work Phone: Evaluation + Plan note Future Appointments Appointment Date:03/15/2022 09:45:00 AM Scheduled Provider:Daysi GONZALEZ MD Location:[facility] Appointment Type[facility]O [facility] note Future Appointments Appointment Date:07/13/2022 09:30:00 AM Scheduled Provider: [facility] Appointment Type:XR MBS Adult () Appointment Date:07/14/2022 09:00:00 AM Scheduled Provider:ROSSY MUELLER PA-C Location:[facility] Appointment Type:URO Office Visit Future Scheduled Tests Radiology* Echo Transthoracic Complete 07/07/22 * XR Adult Swallowing Function w/ Video: Evaluate Pt, Develop a Plan of Care & Implement Plan 07/13/22 [facility] Future Appointments Appointment Date:07/14/2022 09:00:00 AM Scheduled Provider:ROSSY MUELLER PA-C Location:[facility] Appointment Type:URO Office Visit Future Scheduled Tests Radiology* Echo Transthoracic Complete 07/07/22 [facility] Future Appointments Appointment Date:08/27/2022 03:00:00 PM Scheduled Provider: Location:.[facility] Appointment Type:CV Echo () Future Scheduled Tests Radiology* Echo Transthoracic Complete 08/27/22 [facility] evaluation + Plan note Future Appointments Appointment Date:09/07/2022 10:15:00 AM Scheduled Provider:ROSSY MUELLER PA-C Location:[facility] Appointment Type:URO [facility] Future Appointments Appointment Date:10/05/2022 09:15:00 AM Scheduled Provider:ROSSY MUELLER PA-C Location:[facility] Appointment Type:URO Office Visit Appointment Date:10/05/2022 04:15:00 PM Scheduled Provider:Prabhjot Gipson MD [facility] App[facility] Type:Cardiology Follow Up (FT) [facility] evaluation + Plan note Future Appointments Appointment Date:01/03/2023 11:00:00 AM Scheduled Provider:Santosh MAHMOOD CNP [facility] Type:Cardiology Follow Up (FT) [facility] evaluation + Plan note Future Appointments Appointment Date:01/03/2023 11:00:00 AM Scheduled Provider:Santosh MAHMOOD CNP [facility] App[facility] Type:Cardiology Follow Up (FT) Appointment Date:06/09/2023 09:00:00 AM Scheduled Provider: [facility] Appoint[facility] Type:NCV ICD (FT) [facility] Future Appointments Appointment Date:06/09/2023 09:00:00 AM Scheduled Provider: [facility] Appoint[facility] Type:NCV ICD (FT) [facility] Future Appointments Appointment Date:04/19/2023 12:00:00 PM Scheduled Provider:Prabhjot Gipson MD [facility] Appoint[facility] Type:Cardiology Follow Up (FT) Appointment Date:06/09/2023 09:00:00 AM Scheduled Provider: [facility] Appointment Type:NCV ICD (FT) Future Scheduled Tests Laboratory* [facility] Future Appointments Appointment Date:07/14/2023 01:15:00 PM Scheduled Provider:Prabhjot Gipson MD [facility] [place] Appointment Type:Cardiology Follow Up (FT) Future Scheduled Tests Laboratory* Basic Metabolic Panel 12/23/22 [facility] Future Appointments Appointment Date:12/15/2023 08:15:00 AM Scheduled Provider: Location:.[facility] Appointment Type:NCV Remote Follow Up (FT) Appointment Date:01/06/2024 10:00:00 AM Scheduled Provider:Prabhjot Gipson MD Location:.Cardiology [facility] Appointment Type:Cardiology Follow Up (FT) Future Scheduled Tests Laboratory* Basic Metabolic Panel 12/23/22 [facility] Future Appointments Appointment Date:12/16/2023 12:15:00 PM Scheduled Provider: Location:.[facility] Appointment Type:ST Vital Stim 45 (FT) Appointment Date:12/28/2023 12:30:00 PM Scheduled Provider: Location:.[facility] Appointment Type:ST Vital Stim 45 (FT) Appointment Date:12/29/2023 01:15:00 PM Scheduled Provider: Location:.[facility] Appointment Type:ST Vital Stim 45 (FT) Appointment Date:01/04/2024 12:30:00 PM Scheduled Provider: Location:.[facility] Appointment Type:ST Vital Stim 45 (FT) Appointment Date:01/05/2024 01:15:00 PM Scheduled Provider: Location:.[facility] Appointment Type:ST Vital Stim 45 (FT) Appointment Date:01/06/2024 10:00:00 AM Scheduled Provider:Prabhjot Gipson MD Location:.Cardiology [facility] Appointment Type:Cardiology Follow Up (FT) Appointment Date:01/11/2024 12:30:00 PM Scheduled Provider: Location:.[facility] Appointment Type:ST Vital Stim 45 (FT) Appointment Date:01/12/2024 01:15:00 PM Scheduled Provider: Location:.[facility] Appointment Type:ST Vital Stim 45 (FT) Appointment Date:01/17/2024 01:45:00 PM Scheduled Provider: Location:.[facility] Appointment Type:ST Vital Stim 45 (FT) Appointment Date:01/19/2024 01:15:00 PM Scheduled Provider: Location:.[facility] Appointment Type:ST Vital Stim 45 (FT) Appointment Date:01/24/2024 01:45:00 PM Scheduled Provider: Location:.[facility] Appointment Type:ST Vital Stim 45 (FT) Appointment Date:01/26/2024 01:15:00 PM Scheduled Provider: Location:.[facility] Appointment Type:ST Vital Stim 45 (FT) Appointment Date:06/14/2024 09:00:00 AM Scheduled Provider: Location:.[facility] Appointment Type:NCV Pacemaker (FT) Future Scheduled Tests Laboratory* Basic Metabolic Panel 12/23/22 [facility] Future Appointments Appointment Date:01/11/2024 12:30:00 PM Scheduled Provider: Location:.[facility] Appointment Type:ST Vital Stim 45 (FT) Appointment Date:01/12/2024 08:45:00 AM Scheduled Provider: Location:.[facility] Appointment Type:ST Vital Stim 45 (FT) Appointment Date:01/17/2024 01:45:00 PM Scheduled Provider: Location:.[facility] Appointment Type:ST Vital Stim 45 (FT) Appointment Date:01/19/2024 01:15:00 PM Scheduled Provider: Location:.[facility] Appointment Type:ST Vital Stim 45 (FT) Appointment Date:01/24/2024 01:45:00 PM Scheduled Provider: Location:.[facility] Appointment Type:ST Vital Stim 45 (FT) Appointment Date:01/26/2024 01:15:00 PM Scheduled Provider: Location:.[facility] Appointment Type:ST Vital Stim 45 (FT) Appointment Date:06/14/2024 09:00:00 AM Scheduled Provider: Location:.[facility] Appointment Type:NCV Pacemaker (FT) Appointment Date:07/09/2024 08:00:00 AM Scheduled Provider:Ric Martinez PA-C Location:[facility] Appointment Type:Cardiology Follow Up (FT) [facility] Future Appointments Appointment Date:06/14/2024 09:00:00 AM Scheduled Provider: Location:.[facility] Appointment Type:NCV Pacemaker (FT) Appointment Date:07/09/2024 08:00:00 AM Scheduled Provider:Ric Martinez PA-C Location:[facility]ments Appointment Date:07/09/2024 08:00:00 AM Scheduled Provider:Ric Martinez PA-C Location:[facility] Appointment Type:Cardiology Follow Up (FT) Appointment Date:12/06/2024 09:00:00 AM Scheduled Provider: Location:.[facility] Appointment Type:NCV Pacemaker (FT) [facility] Evaluation + Plan note Future Appointments Appointment Date:11/12/2024 01:15:00 PM Scheduled Provider:Ric Martinez PA-C Location[facility] Appointment Type:Cardiology Follow Up (FT) Appointment Date:12/06/2024 09:00:00 AM Scheduled Provider: Location:.[facility] Appointment Type:NCV Pacemaker (FT) [facility] Evaluation + Plan note Future Appointments Appointment Date:12/13/2024 12:30:00 PM Scheduled Provider: Location:.[facility] Appointment Type:ST Adult Eval (FT) Appointment Date:12/20/2024 01:45:00 PM Scheduled Provider:Ric Martinez PA-C Location:[facility] Appointment Type:Cardiology Follow Up (FT) Appointment Date:06/06/2025 09:00:00 AM Scheduled Provider: Location:.[facility] Appointment Type:NCV Pacemaker (FT) [facility] Evaluation + Plan note Future Appointments Appointment Date:12/24/2024 01:15:00 PM Scheduled Provider: Location:.[facility] Appointment Type:ST Vital Stim 45 (FT) Appointment Date:12/27/2024 01:15:00 PM Scheduled Provider: Location:.[facility] Appointment Type:ST Vital Stim 45 (FT) Appointment Date:01/01/2025 03:15:00 PM Scheduled Provider: Location:.[facility] Appointment Type:ST Vital Stim 45 (FT) Appointment Date:01/03/2025 01:00:00 PM Scheduled Provider: Location:.[facility] Appointment Type:ST Vital Stim 45 (FT) Appointment Date:01/15/2025 01:30:00 PM Scheduled Provider: Location:.[facility] Appointment Type:ST Vital Stim 45 (FT) Appointment Date:01/17/2025 01:00:00 PM Scheduled Provider: Location:.[facility] Appointment Type:ST Vital Stim 45 (FT) Appointment Date:01/21/2025 01:15:00 PM Scheduled Provider: Location:.[facility] Appointment Type:ST Vital Stim 45 (FT) Appointment Date:01/23/2025 02:00:00 PM Scheduled Provider: Location:.[facility] Appointment Type:ST Vital Stim 45 (FT) Appointment Date:01/28/2025 01:15:00 PM Scheduled Provider: Location:.[facility] Appointment Type:ST Vital Stim 45 (FT) Appointment Date:01/30/2025 02:00:00 PM Scheduled Provider: Location:.[facility] Appointment Type:ST Vital Stim 45 (FT) Appointment Date:02/04/2025 01:15:00 PM Scheduled Provider: Location:.[facility] Appointment Type:ST Vital Stim 45 (FT) Appointment Date:02/06/2025 02:00:00 PM Scheduled Provider: Location:.[facility] Appointment Type:ST Vital Stim 45 (FT) Appointment Date:02/11/2025 01:15:00 PM Scheduled Provider: Location:.[facility] Appointment Type:ST Vital Stim 45 (FT) Appointment Date:02/13/2025 02:00:00 PM Scheduled Provider: Location:.[facility] Appointment Type:ST Vital Stim 45 (FT) Appointment Date:02/19/2025 03:00:00 PM Scheduled Provider: Location:.[facility] Appointment Type:ST Vital Stim 45 (FT) Appointment Date:02/21/2025 12:30:00 PM Scheduled Provider: Location:.[facility] Appointment Type:ST Vital Stim 45 (FT) Appointment Date:03/19/2025 01:15:00 PM Scheduled Provider:Ric Martinez PA-C Location:[facility] Appointment Type:Cardiology Follow Up (FT) Appointment Date:06/06/2025 09:00:00 AM Scheduled Provider: Location:.[facility] Appointment Type:NCV Pacemaker (FT) [facility] Evaluation + Plan note Future Appointments Appointment Date:03/19/2025 01:15:00 PM Scheduled Provider:Ric Martinez PA-C Location:[facility] Appointment Type:Cardiology Follow Up (FT) Appointment Date:06/06/2025 09:00:00 AM Scheduled Provider: Location:.[facility] Appointment Type:NCV Pacemaker (FT) [facility] Evaluation + Plan note Future Appointments Appointment Date:06/06/2025 09:00:00 AM Scheduled Provider: Location:.[facility] Appointment Type:NCV Pacemaker (FT) Appointment Date:10/04/2025 10:30:00 AM Scheduled Provider:Ric Martinez PA-C Location:.[facility] Appointment Type:Cardiology Follow Up (FT) [facility] Evaluation note* Skin: warm and dryINCISIONS: midsternal, R leg JANELLE, well approx, w/o s/s infectionEyes: sclera clearENMT: mucous membranes moist dobhoff with TFHead/Neck: neck suppleRespiratory/Thorax: nonlabored; fair inspir effort and cough; mildly diminished bases; on RAsternum stableGenitourinary: brown to gravity with tea colored urineGastrointestinal: soft; NT/ND; + upper old abd hernia - soft and nontenter; BS+; BM 06/13Musculoskeletal: RIOS; generalized weaknessExtremities: trace RLE edema in R graft legwell perfusedNeurological: awake; A&Ox4; no focal defPsychological: Appropriate mood and behaviorCardiovascular: RRR, no m/r/gTELE - perm paced and controlled afib 70s-80s, occas PVCsno wiresConsti tutional: Well developed, awake/alert/oriented x3, no distress, alert and cooperativesitting in chairwife at bedside, [facility] Diagnosis Malignant neoplasm of urinary bladder, unspecified site (HCC)- Primary Malignant neoplasm of urinary bladder, unspecified site (HCC) Atrial fibrillation, unspecified type (HCC) Presence of cardiac defibrillator Automatic implantable cardiac defibrillator in situ Stage 3 chronic kidney disease, unspecified whether stage 3a or 3b CKD (HCC) documented [facility]* Diagnosis Pre-operative clearance- Primary Preoperative examination, unspecified Malignant neoplasm of urinary bladder, unspecified site (HCC) Atrial fibrillation, unspecified type (HCC) Presence of cardiac defibrillator Automatic implantable cardiac defibrillator in situ Stage 3 chronic kidney disease, unspecified whether stage 3a or 3b CKD (HCC) [facility]* Diagnosis Malignant neoplasm of urinary bladder, unspecified site (HCC)- Primary Atrial fibrillation, unspecified type (HCC) Presence of cardiac defibrillator Automatic implantable cardiac defibrillator in situ Stage 3 chronic kidney disease, unspecified whether stage 3a or 3b CKD (HCC) Asymptomatic microscopic hematuria Malignant neoplasm of urinary bladder, unspecified site (HCC) Atrial fibrillation, unspecified type (HCC) Presence of cardiac defibrillator Automatic implantable cardiac defibrillator in situ Stage 3 chronic kidney disease, unspecified whether stage 3a or 3b CKD (HCC) [facility]* Diagnosis H/O mitral valve repair- Primary Personal history of surgery to heart and great vessels, presenting hazards to health Hx of CABG Postsurgical aortocoronary bypass status S/P left atrial appendage ligation Pain in right hip Pain in joint, pelvic region and thigh DDD (degenerative disc disease), lumbar Degeneration of lumbar or lumbosacral intervertebral disc Malignant neoplasm of urinary bladder, unspecified site (HCC) Atrial fibrillation, unspecified type (HCC) Presence of cardiac defibrillator Automatic implantable cardiac defibrillator in situ Stage 3 chronic kidney disease, unspecified whether stage 3a or 3b CKD (HCC) documented [facility]* Diagnosis Pre-op evaluation- Primary Preoperative examination, unspecified Coronary artery disease, unspecified vessel or lesion type, unspecified whether angina present, unspecified whether point lay ira or transplanted heart Chronic atrial fibrillation (HCC) Atrial fibrillation SSS (sick sinus syndrome) (HCC) Sinoatrial node dysfunction Anemia in other chronic diseases classified elsewhere Chronic kidney disease, unspecified CKD stage Schatzki's ring of distal esophagus Malignant neoplasm of urinary bladder, unspecified site (HCC) Atrial fibrillation, unspecified type (HCC) Presence of cardiac defibrillator Automatic implantable cardiac defibrillator in situ Stage 3 chronic kidney disease, unspecified whether stage 3a or 3b CKD (HCC) [facility]* Diagnosis Malignant neoplasm of urinary bladder, unspecified site (HCC)- Primary [facility]* Diagnosis Atrial fibrillation, unspecified type (HCC)- Primary [facility]* Diagnosis Screening for genitourinary condition Screening for other and unspecified genitourinary condition [facility]* Diagnosis Malignant neoplasm of urinary bladder, unspecified site (HCC)- Primary documented [facility] noteNo InformationNort [employer] Other Evaluation note* Diagnosis Malignant neoplasm of urinary bladder, unspecified site (HCC)- Primary Screening for genitourinary condition Screening for other and unspecified genitourinary condition [facility]* Diagnosis Urinary tract infection without hematuria, site unspecified- Primary documented in this [facility]* Diagnosis Pseudomonas aeruginosa infection- Primary Pseudomonas infection in conditions classified elsewhere and of unspecified site documented in this encounter [facility]* Diagnosis Screening for genitourinary condition- Primary Screening for other and unspecified genitourinary condition documented in this encounter [facility] noteNo assessment information [facility] Work Phone: Evaluation note* Diagnosis Screening for genitourinary condition- Primary Screening for other and unspecified genitourinary condition documented in this encounter [facility]* Diagnosis Screening for genitourinary condition- Primary Screening for other and unspecified genitourinary condition documented in this [facility]* Diagnosis Malignant neoplasm of urinary bladder, unspecified site (HCC)- Primary Bladder stone Other calculus in bladder Nutritional marasmus (HCC) Nutritional marasmus [facility]* Diagnosis Bladder stone- Primary Other calculus in bladder Nutritional marasmus (HCC) Nutritional marasmus documented in this encounter [facility] note* Diagnosis Pre-op evaluation- Primary Preoperative examination, unspecified Coronary artery disease, unspecified vessel or lesion type, unspecified whether angina present, unspecified whether point lay ira or transplanted heart Chronic atrial fibrillation (HCC) Atrial fibrillation SSS (sick sinus syndrome) (HCC) Sinoatrial node dysfunction Anemia in other chronic diseases classified elsewhere Chronic kidney disease, unspecified CKD stage Schatzki's ring of distal esophagus Screening for genitourinary condition- Primary Screening for other and unspecified genitourinary condition Asymptomatic microscopic hematuria DDD (degenerative disc disease), lumbar Degeneration of lumbar or lumbosacral intervertebral disc Pain in right hip Pain in joint, pelvic region and thigh documented in this [facility]* Diagnosis Pre-op evaluation- Primary Preoperative examination, unspecified Coronary artery disease, unspecified vessel or lesion type, unspecified whether angina present, unspecified whether point lay ira or transplanted heart Chronic atrial fibrillation (HCC) Atrial fibrillation SSS (sick sinus syndrome) (HCC) Sinoatrial node dysfunction Anemia in other chronic diseases classified elsewhere Chronic kidney disease, unspecified CKD stage Schatzki's ring of distal esophagus Screening for genitourinary condition- Primary Screening for other and unspecified genitourinary condition Malignant neoplasm of urinary bladder, unspecified site (HCC) [facility] Diagnosis Pre-op evaluation- Primary Preoperative examination, unspecified Coronary artery disease, unspecified vessel or lesion type, unspecified whether angina present, unspecified whether point lay ira or transplanted heart Chronic atrial fibrillation (HCC) Atrial fibrillation SSS (sick sinus syndrome) (HCC) Sinoatrial node dysfunction Anemia in other chronic diseases classified elsewhere Chronic kidney disease, unspecified CKD stage Schatzki's ring of distal esophagus Malignant neoplasm of urinary bladder, unspecified site (HCC) Bladder stone Other calculus in bladder [facility] Diagnosis 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 Oropharyngeal dysphagia Dysphagia, oropharyngeal phase Impacted cerumen of left ear Impacted cerumen documented in this encounter [facility] Work Phone: Evaluation note* Diagnosis Arrhythmia- Primary Unspecified cardiac dysrhythmia Arrhythmia Unspecified cardiac dysrhythmia Ventricular 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 Shock (Multi) Unspecified shock Primary hypertension Unspecified essential hypertension Osteoarthritis, unspecified osteoarthritis type, unspecified site Pneumonia due to infectious organism, unspecified laterality, unspecified part of lung Dysphagia, unspecified type Urinary retention Unspecified retention of urine documented in this encounter [facility] Work Phone: Evaluation note* Diagnosis Onset Date Resolution Status Admit Date Closed displaced fracture of left femoral neck acute November 10, 2024 7:04pm Pathological fracture, left femur, initial encounter for fracture acute November 10, 7:04pm [facility] Work Phone: Evaluation note* Diagnosis Localized osteoarthritis of left knee- Primary [facility] Diagnosis 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 Oropharyngeal dysphagia Dysphagia, oropharyngeal phase documented in this encounter [facility] Work Phone: Evaluation note* Diagnosis Pre-op evaluation- Primary Preoperative examination, unspecified Coronary artery disease, unspecified vessel or lesion type, unspecified whether angina present, unspecified whether point lay ira or transplanted heart Chronic atrial fibrillation (HCC) Atrial fibrillation SSS (sick sinus syndrome) (HCC) Sinoatrial node dysfunction Anemia in other chronic diseases classified elsewhere Chronic kidney disease, unspecified CKD stage Schatzki's ring of distal esophagus History of bladder cancer- Primary Personal history of malignant neoplasm of bladder [facility] Diagnosis Localized osteoarthritis of left knee- Primary [facility]* Diagnosis 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)- Primary Primary open angle glaucoma (POAG) of both eyes, mild stage Age-related nuclear cataract of both eyes Dry eyes Unspecified tear film insufficiency 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 Blepharitis of upper and lower eyelids of both eyes, unspecified type documented in this encounter [facility]* Diagnosis Oropharyngeal dysphagia- Primary Dysphagia, oropharyngeal phase 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 (Multi) documented in this encounter [facility] Work Phone: Evaluation note* Diagnosis Localized osteoarthritis of left knee- Primary documented [facility] encounter [facility]* Type Assessment Date No Information [facility] Work Phone: Evaluation note* Diagnosis Dysphagia, unspecified type- Primary PEG (percutaneous endoscopic gastrostomy) status (Multi) documented in this encounter [facility] Work Phone: Evaluation note* Diagnosis Refractive error- Primary Unspecified disorder of refraction and accommodation documented [facility] encounter [facility] HealthcareHistory and physical [facility]* Clinical Note Date No Information [facility] Work Phone: History general Narrative - Reported* Type Description Date Medical History Mitral valve replaced Medical History ASHD (arteriosclerotic heart dis ease) Medical History Anemia of chronic disease Medical History Essential hypertension Medical History Observed seizure-like activity Medical History History of head and neck cancer Medical History Benign paroxysmal positional veronica tigo, bilateral Medical History Left knee pain Medical History Gastroesophageal ref lux disease with esophagitis without hemorrhage Medical History Permanent atrial fibrillation Medical History Hypocalcemia Medical History Cellulitis of left lower extremi ty Medical History Hematuria, microscopic Medical History Apnea, sleep Surgical History hernia Surgical History gall bladder Surgical History right hip replacement Surgical History cardiac pacemeker Surgical History broken hip / pelvis Hospitalization History see surgical history [facility] Other Hospital course Narrative No data available for this section [facility] Discharge instructions No data available for this section [facility] Discharge instructions* Central Line: Left: * Labs 1 (Modify Template):Lab Test(s): Basic Metabolic Panel, CBC, MagnesiumDate To Be Drawn: Once the week following discharge by home careFax Results To: PCP Dr Mylene Dunn and Medical Office Supervisor Prabhjot GipsonComments: To be drawn by home care * Oxygen:Other Instructions Incentive spirometer 10x/hr while awake. * Catheter Care:Type: indwellingCatheter Care: soap and waterCatheter Change: patient to follow up with Urologist for TOVDate Last Changed: overnight 06/11-06/12 * Additional Orders:Vital Signs: Every visit and as neededWeight: Daily weight; keep a log and bring to all of your appointmentsAdditional Instructions: Keep Your Move in the Tube!! Please refer to theMove in the Tube handout.-- Load bearing activities can be completed if you are staying in the tube. If you are attempting load bearing activities, let pain be your guide with when trying an activityout of the tube . If an activity hurts or is uncomfortable go back to doing it while you stay in the tube . There is no time limit to stay in the tube . -- Non-load bearing activities, which are youractivities of daily living, can be completed with your arms out of the tube as long as you remain pain free. Some activities of daily living examples are dressing, personal care, showering, washing hair, and toilet hygiene. Don't forget to KEEP YOUR MOVE IN THE TUBE and think of a Joshua ozuna! - ------- IMPORTANTPrevention of Infective Endocarditis (Heart Infections) After Cardiac Surgery:Antibiotics are alwaysrequired PRIOR to the following:- Dental work with gingival, periapical, or other gingival perforation (such as tooth extractions, dental abscess drainage, and dental cleanings)- Respiratory procedures with incisions or biopsies - Cardiac or vascular procedures to place or replace prosthetic material (such as heart valves, stents, etc.)Antibiotics are required in the following situations ONLY if an infection is already present:- Skin or soft tissue procedures with infected tissue- Gastrointestinal procedures with GI infections- Urinary or genital procedure with acute genitourinary infectionsAntibiotic examples you should expect to be prescribed:- Amoxicillin or Ampicillin are usually the first choice- Cephalexin, Clindamycin, or Vancomycin may be used if you are unable to tolerate/allergic to Amoxicillin or Ampicillin- Amoxicillin or Ampicillin (if allergic, use Vancomycin) will cover for enterococcus if you have a known acute biliary tract infection - Specific antibiotics for a knownorganism should be used when treating an active infectionPlease notify your dentist/primary physician/utilization engineer PRIOR to these types of procedures to obtain the proper antibiotics and prevent a serious infection in your heart. When in doubt, always ask! * Call Provider If:Any new concerning symptoms. * Activity:- Continue to increase activity and use incentive spirometer, cough and deep breathing. - Pace activities as tolerated. Avoid heavy physical exertion and lifting. Balance rest periods with activity. - All medication refills will be obtained from the Primary Care Provider or Medical Office Supervisor. -For severe chest pain, extreme shortness of breath, coughing up frothy sputum, or fainting, GO DIRECTLY TO THE EMERGENCY ROOM OR CALL 911 IF YOU HAVE ANY OF THESE SYMPTOMS. - MAY shower. - MAY NOT drive for 4 to 6 weeks, until follow up visit with the surgeon. Discuss driving at your follow-up appointment. - Maintain a daily weight log. Use same scale, before breakfast, after voiding. Take the log to your follow-up appointments. - Inform Radiology of retained epicardial pacing wires if you everneed a MRI. Make an appointment with the Cardiac Surgeon if the wires ever poke out, or if you develop chronic drainage or pain from the site of the previous wires. No NSAIDs (common [id number] are ibuprofen/Motrin/Advil, naproxen/Naprosyn/Aleve) for 3 months after cardiac surgery; if NSAIDs needed after 3 months, clear use with utilization engineer before starting. * Wound Instructions:- Cleanse incisions with soap and water daily. No dressing, leave open to air. No lotions, creams or tub soaks/swimming until healed. * Call Provider If:- Redness, drainage or other problems with incisions, notify the Cardiac Surgeon'soffice. - Signs and symptoms of Heart Failure: call your Medical Office Supervisor if you have weight gain of 3 pounds or more in less than 3 days; shortness of breath at rest, with activity, or when lying flat; dizziness or fainting. * Home Care Face to Face Certification:Home Care Services Needed: yesSkilled Disciplines Ordered: RN/JAVA PERFORMANCE ENGINEER, PT, SpeechFace to Face Encounter Completed: yesDate of Encounter: [id number] Necessity for Homecare (based on clinical findings): Short-term detention is needed to monitor for signs and symptoms of decomposition/adverse events s/p cardiac surgery. Patient at high risk for re-hospitalization. Physical therapy services needed to restore ability to walk without support and establish home exercise program as patient is at high risk for falls and has limited mobility. Speech therapy services needed for dysphagia treatment to improved swallowing function and prevent aspiration. Homebound Status: homeboundHomebound Due to: Patient with recent cardiac surgery. Patient experiences significant pain and dyspnea with minimal exertion and ambulates very limited distances. The patienthas poor endurance d/t recent surgery. The totality of these findings support a considerable and taxing effort to leave home due to limited mobility. Patient is also unable to drive for at least 1 month due to sternal precautions. Face to Face Completed and Home Care Orders Reviewed: I certify thatthis patient is under my care. I have reviewed the information included in the face to face and certify that the home care services ordered are medically necessary for this patient. * Home Care Skilled Service:Home Care Skilled Service: assessment, CABG carepath, follow up teaching,labs, medication, new diagnosis teaching, Rehab (PT/OT/SP eval and treat), tube feed, weight check,wound careType of Assessment: s/p cardiac surgeryAssessment: First Home Care Visit: Home Care to determineCABG: First Home Care Visit: Home Care to determineTeaching: First Home Care Visit: Home Careto determineLab Instructions: please see lab ordersMed Compliance: First Home Care Visit: Home Careto determineNew Diagnosis: First Home Care Visit: Home Care to determineRehab: First Home Care Visit: Home Care to determineTube Feed: First Home Care Visit: Home Care to determineWeight Check: FirstHome Care Visit: Home Care to determineWound Care: First Home Care Visit: Home Care to determine, surgical incisions * Follow Up Appointment 1:Physician/Dept/Service: Cardiac Surgery Nurse Discharge Follow-Up Phone CallScheduled Date/Time: 24-Jun-2022 10:00Location: This is a TELEPHONE appointment. The nurse will call your phone at the appointment time.Phone Number: Cardiac Surgery Office [phone]: Please do NOT go to the office, this appointment is scheduled as a virtual or telephone visit. You may receive the call 15 minutes before or 15 minutes after the schedule time. * Follow Up Appointment 2:Physician/Dept/Service: Dr. Bee, cardiac surgeonScheduled Date/Time: 09-Jul-2022 12:45Location: [facility] - 12:45p for chest xray in [facility] 5th floor radiology, then 1:45 for appointment in [place] [address]Phone Number: Dr Дмитрий Bee's office [phone], opt#[phone] * Follow Up Appointment 3:Physician/Dept/Service: Dr. Prabhjot Gipson, Interventional CardiologyScheduled Date/Time: 07-Jul-2022 13:15Location: [place] [address]. Lrnvc Number: [phone]: Please fax hospital records to the office. Please bring your insurance card, photo id, a list of medication in the original bottle, anyco-pays you may have, and the discharge summary * Follow Up Appointment 4:Physician/Dept/Service: Dr. Mylene Dunn, Primary Care ProviderScheduled Date/Time: 23-Jun-2022 11:00Location: [facility] [address], [address] [address]Fqhke Number: [phone]: Please bring your insurance card, photo id, a list of medication in the original bottle, any co-pays you may have, and the discharge summary * Follow Up Appointment 5:Physician/Dept/Service: Urology - Dr Daysi Palmer for Referral: urinary retention; postop recent TURPLocation: follow up to arrange trial of void in office * Follow Up Appointment 6:Physician/Dept/Service: Modified Barium SwallowCall to Schedule in: in 2-4 weeksLocation: [place] -take prescription with youPhone Number: Also f/u with Dr Parra [facility] instructionsAmb[facility] Orders* Urine Culture Time Frame: 03/01/24, Location: Determined By Patient [facility] Work Phone: Hospital Discharge instructionsAmbulatory Orders* Referral to Gastroenterology Location: None Selected [facility] Work Phone: Progress note No data available for this section [facility] Progress note Author Nica Martinez [facility] Note Date/Time November 30, 2024 9:[address] [facility] [address] [place] [address] Palliative Care Progress Note Signed Patient: Bravo Arce MR#: [id number] : 1940 Acct:[id number] Age/Sex: 84 / M Adm Date: 5 Loc: Room: [address] [place] [address] Type: ADM IN Attending Dr: Jorge Clifton MD Copies to: ~ Date of Service: 11/30/2024 Subjective Subjective HPI: Mr Arce has a history of of chronic A-fib s/p left atrial appendage ligationin May 2022, on Plavix for CAD s/p CABG x 3 vessels, mitral regurg s/p repair, sick sinus syndrome s/p pacemaker placement, BPH with LUTS, GERD and history of skin cancer with neck dissection in 2018 who presented to the ER on 11/10 with left hip pain for the previous 3 weeks. Patient did have a significant fall with possible syncope at the time when pain started. Of note, after initial fall, he did present to outside ER with unresponsiveness, acute hematuria, and developed acute respiratory failure. He was intubated, admitted to ICU, placed on continuous bladder irrigation, and required Levophed. Evaluated by neurology. EEE was negative. He did stabilize and was successfully extubated. He transferred to regular floor but developed metabolicencephalopathy. Became hypoxic, noted to have ventricular tachycardia, and required re-intubation. Transferred back to ICU and started on amiodarone drip.At this point, he was transferred to [place] [facility]. He again was able to improve, extubated safely. Does have history of dysphagia but was noted worse after requiring intubation twice. PEG tube was being considered buthe was discharged to SNF for therapy. Discussions regarding PEG tube were continued while at SNF but fortunately, he was able to maintain nutritional nees. While at rehab, patient was having difficulty standing from seated position related to hip pain, prompting xray. He had outpatient xray performed at [facility] facility showing acute subcapital femoral neck fracture and was sent to the ER on 11/10. In the ER, his vitals were stable. Labs unremarkable. Chest x-ray was negative for acute pathologybut did show some cardiomegaly. Orthopedics was consulted, updated pelvis and femur xrays showing Displaced subcapital hip fracture on the left. The right hip arthroplasty and acetabular fixation hardware. There lumbar and SI joint degenerative changes . Recommended admission with plans for surgery. He was admitted for left hip fracture. Cardiology was consulted for pre-operative CV risk assessment given patient's cardiac history. Patient was felt to be optimized and cleared for surgery. Patient had open treatment of femoral neck fracture with prosthetic replacement performed on 11/12. No complications from surgery. However, patient developed worsening dysphagia during hospitalization. Completed MBS on 11/14 with significant dysphagia, with ST recommending NPO. General surgery was consulted and recommended PEG placement. Surgery with PEg placement was performed on 11/16 without complication. Patient remained stable throughout hospitalization. Was evaluated by PMR and recommended inpatient rehab. he was transferred up to inpatient rehab on 11/19. Patient has made progress with therapy regarding mobility and ability to complete his ADLs/IADLS. unfortunately, his dysphagia has persisted. He had an updated MBS performed on11/26 showing min oral and mod-severe pharyngeal phase dysphagia. Aspiration/penetration observed following thin and nectar thick liquids by spoon, with penetration noted w/ honey thick and puree consistencies. Postural changes and strategies did not improve airway protection. Pt w/ only intermittent sensation of penetration/aspiration. Significant laryngeal and vallecular residuals remained post swallow. Speech recommendation of NPO with utilizatino of PEG for meds and nutrition. He does seem to be tolerating tube feeds without issue. Patient has expressed frustration with prolonged hospitalization and swallowing concerns. Palliative care has been consulted to assist with goals of care. Patient sitting in chair. Patient's Smitha is at bedside. Patient states overall he is doing okay. His pain is doing well. Denies pain when he is at rest. Does become slightly sore with any activity. Physical therapy is going well. He denies shortness of breath at rest. Was previously wearing oxygen during hospitalization but is no longer requiring it. States he is doingokay without it. Does have some exertional dyspnea but states it is similar to how he feels when he is at home. He denies any chest pain. He did have an episode of nausea the other day. Denies any further episodes or vomiting. Feels like he is tolerating tube feeds without issues. Denies dizziness or lightheadedness. States he is sleeping okay off-and-on but the bed is uncomfortable. notes he has napped throughout the day at times. Patient expresses being frustrated by being in the hospital for so long. He is typically a very active patrizia and being limited in his mobility has been very difficult. He is also very frustrated with his limited diet and speech recommendations. Patient lives in [place]. He is originally from there and has lived there his whole life. He is to his Smitha. They have been together for 25years. They were introduced by Bravo's daughter. He has have 2 children boy and a girl. Smitha also has 2 children. Some of their children live nearby. They have a close relationship with their family. They have 5 grandkids and 2 great grandkids. Patient is Shinto and has a strong tres. His Smitha is Taoist. She states his tres is one of the things attracted her to him. Because they are different religions, they alternate going to each other's episcopalian. He attends [employer] while she attends [employer]. 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 Patient enjoys classic cars and attending car shoes. He has 3 classic cars that he has built in his garage. heshares this hobby with his son. His favorite cars are [employer]. He also enjoys building engines. States in the past, he enjoyed drag racing cars. 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 Smitha states they are both very active [facility] and have been on committees to support the town. He also enjoys lawncare and gardening. Sean states he has had swallowing issues for a very long time, even before his neck dissection in 2018. States both of his kids have similar swallowing concerns. Patient states he may never gain significant swallowing back. Discussed tube feeding vs comfort care measures with pleasure feeding. Reviewed that he is tolerating tube feedings, gaining weight, doing well with PT. Patient feels frustrated by speech therapy and want to make sure they are not keeping him NPO for marginal reasons. Reviewed MBS showing moderate to severe dysphagia as well as silent aspiration. Encouraged that he may improve with continued therapy at home. Also discussed he may improve to eat soft foods but need tube feeding for nutritional support. Patient states he eats to live but not live to eat and has always been that way. He feels he can live off tube feedings if he is still able to have a good quality of life. Reviewed because he is bolus feeding, he should be able to live a normal life with tube feedings. Stated he will be able to live off tube feeding up to a certain point. Reviewed that he is the only one who can decide what that limit is. Reviewed comfort care measures with pleasure feeding if he no longer wanted to just tube feed or stop working with therapies. He currently does not feel that he is ready to stop aggressive care. HPOA is his Smitha. not currently on file but encouraged to bring paperwork to confidential secretary desk to upload into chart. Also reviewed resuscitation preferences. Patient confirms his decision of DNRCCA without intubation. 3/5 Patient sitting in chair. and sister in law at bedside. Patient has no major concerns today. States he feels good overall and seems to be in better spirits today. Worked with PT this morning and it went well. Continues to havedifficulty sleeping at night but hopes going home will improve this. He continues to feel frustrated with not being able to eat. He is thankful he as an alternative nutritional support with the tube feedings though. He is hopefulthat with continued therapy at home, his swallowing will continue to improve. Encouragement provided. 11/30 Patient sitting up in chair. at bedside. States he is doing good. Plan for discharge home today. states he has been more upbeat the last two days. Denies pain. Continues to work with therapies. Tolerating tube feeds. No major concerns. Exam Physical Exam Vital Signs: Temp Pulse Resp BP Pulse Ox O2 Del Method O2 Flow Rate 98 F 89 14 107/72 97 Room Air 1 11/30/24 06:27 11/30/24 06:27 11/30/24 06:27 11/30/24 06:27 11/30/24 06:27 11/30/24 06:27 11/23/24 00:00 FiO2 97 11/22/24 02:18 Const General: comfortable, frail appearing and not ill appearing Nutritional Appearance: average body habitus and thin Orientation: alert, awake and oriented x3 Limitations: mental status not altered HEENT Ears: hearing grossly normal bilaterally Nose: external nose normal Mouth: oral mucosae normal Teeth and gingiva: dentition normal Eyes Pupils: PERRL EOM: EOM intact bilaterally Resp Effort & Inspection: normal respiratory effort and not tachypneic Auscultation: clear to auscultation bilaterally, no rales, no rhonchi and no wheezes Cardio Rate: regular rate Rhythm: regular rhythm Heart Sounds: S1 normal and S2 normal GI Palpation: soft, not firm and no guarding Skin General: no rashes or lesions noted Neuro General: patient alert, patient awake and moves all extremities Cranial Nerves: CN's II-XII intact bilaterally Cognition: normal cognition Speech: speech normal Extrem General: no edema Psych Appearance: grossly normal Mood: congruent mood Affect: normal affect Attitude: cooperative Thought Process: normal Thought Content: normal Insight: insight good Judgment: judgment good Objective Labs 11/29/24 04:42 11/29/24 04:42 Labs: Laboratory Results - last 24 hr 11/29/24 11/29/24 11/30/24 11:44 18:15 00:07 POC Glucose 87 120 124 POC Glucose Comment Glu2: cleaned meter Glu2: cleaned meter 11/30/24 06:31 POC Glucose 108 POC Glucose Comment Assessment/Plan Assessment/Plan (1) Counseling regarding advance care planning and goals of care: Code(s): Z71.89 - Other specified counseling (2) Impaired mobility and activities of daily living: Code(s): Z74.09 - Other reduced mobility; Z78.9 - Other specified health status (3) Closed displaced fracture of left femoral neck: Code(s): S72.002A - Fracture of unspecified part of neck of left femur, initial encounterfor closed fracture (4) Dysphagia: Qualifiers: Dysphagia type: unspecified Qualified Code(s): R13.10 - Dysphagia, unspecified Code(s): R13.10 - Dysphagia, unspecified Plan Spent 10minutes with patient and spouse. updated on current condition and overall plan of care. Encouragement provided to patient. At this time, he would like to continue with tube feedings and aggressive care. Active listeningand support provided. All questions and concerns addressed. Code status confirmed DNRCCA without intubation. PINEDA Chopra, patient's . Discharginghome today. Will continue to follow for support. Documented By: Nica Martinez DO 11/30/24 1053 Signed By: <Electronically signed by Nica Martinez DO> 11/30/24 1057 [facility] Work Phone: Progress note* Clinical Note Date No Information [facility] Work Phone: Reason for referral (narrative) Referred by: FADI MAHONEY, Daysi [place] [facility] reason for referral (narrative)* Outpatient Procedure (Routine) - Authorized Specialty Diagnoses / Procedures Referred By Contac t Referred To [facility] Diagnoses Pre-operative clearance Procedures ECG COMPLETE ECG ROUTINE ECG W/LEAST 12 LDS W/I&R Hemal Urban MD [address] [place] [address] [facility] [address] [place] [address] Referral ID Status Reason Start Date Expiration Date Visits Requested Visits Authorized [id number] Authorized Auto-Generat ed Referral 2 09/17/2023 1 1 [facility] for referral (narrative)* Outpatient Procedure (Routine) - Authorized Specialty Diagnoses / Procedures Referred By Contac t Referred To Contact [facility] Diagnoses H/O mitral valve repair Hx of CABG S/P left atrial appendage ligation Procedures ECHO ECHO TTHRC R-T 2D W/WOM-MODE COMPL SPEC&COLR D Hemal Urban MD [address] [place] [address] [place] [address] Referral ID Status Reason Start Date Expiration Date Visits Requested Visits Authorized [id number] Authorized Auto-Generat ed Referral 2 09/22/2023 1 1 [facility] for referral (narrative)* Outpatient Procedure (Routine) - Authorized Specialty Diagnoses / Procedures Referred By Contac t Referred To Contact [facility] Diagnoses Atrial fibrillation, unspecified type (HCC) Procedures ECG COMPLETE ECG ROUTINE ECG W/LEAST 12 LDS W/I&R Marcos Cedillo MD [address] [place] [address] [place] [id number] Referral ID Status Reason Start Date Expiration Date Visits Requested Visits Authorized [id number] Authorized Auto-Generat ed Referral 10/20/2022 10/20/2023 1 1 [facility] for referral (narrative)* Reason For Referral No Information [facility] Work Phone: Reason for referral (narrative)No reason for referral information [facility] Work Phone: Reason for visit Narrative* Auth/Cert Specialty Diagnoses / Procedures Referred By Contac t Referred To Contact Diagnoses acute respiratory failure Procedures n/a Martí[place] [address] [place] [address] Phone: tel: fax: [facility] [address] [place] [address] Referral ID Status Reason Start Date Expiration Date Visits Re quested Visits Authorized [id number] 1 1 [facility] Work Phone: Family History No Family History Records Found Mother Name Dates Details Family history of (7 99.9, R99) Status:Active Family history of MVA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 Grijalva MD Other Provider Active Start: 2024 Tere Deluna , [employer]ARNING- Other Provider Active Sta rt: November 13, 2024 Rahul Barboza MD Other Provider Active Start: 2024 Rachel Velazquez MD Other Provider Active Start: bru2024 Kayden Odom MD Attending Provider, Other Provider Active Start: November 13, 2024 Jen Acevedo APRN Other Provider Active St art: November 13, 2024 Porfirio Grider Jr, DO Other Provider Active S tart: November 13, 2024 Jorge Clifton MD Other Provider Active Start: November 13, 2024 Team Status: Inactive Member Role Status Dates Mylene Dunn MD Primary Care Provider Active Start: [...] 2024 End: November 30, 2024 Stacey Aranda , GREG Other Provider Active Start: ebruary 2024 End: November 30, 2024 Mariya Hutton RN Other Provider Active Start: bruary 2024 End: November 30, 2024 Lucia Orlando MD Other Provider Active Start: November 18, 2024 End: November 30, 2024 Aldari Rivera DO Other Provider Active Start : November [...] November 18, 2024 End: November 30, 2024 Jason Vickers DO Other Provider Active St art: [...] November 18, 2024 End: November 30, 2024 Jason Medina DO Other Provider Active Start: November 18, 2024 End: November 30, 2024 Moises Samson MD Other Provider Active Start: 2024 End: November 30, 2024 Wayne Rowley MD Other Provider Active Start: Oct End: November 30, 2024 Lesvia Conteh NP-C Other Provider Active St art: November 18, 2024 End: November 30, 2024 Andrew Sultana APRN Other Provider Active Star t: November 18, 2024 End: November 30, 2024 J Carlos Wiley MD Other Provider Active Start: November [...] 18, 2024 End: November 30, 2024 Ninfa Rodriguez APRN Other Provider Active Start : November 18, 2024 End: November 30, 2024 Lauren Hutchinson APRN Other Provider Active St art: November 18, 2024 End: November 30, 2024 Kaila Sainz MD Other Provider Active Start: 2024 End: November 30, 2024 Blayne Yoon MD Other Provider Active S tart: November 18, 2024 End: November 30, 2024 Eric Ibarra , Other Provider Active Star t: November 18, [...] Orestes Guthrie MD Other Provider Active Start: 2024 End: November 30, 2024 Aris Clark MD Other Provider Active Start: [facility] 2024 End: November 30, 2024 Kayden Soliz MD Other Provider Active Start: November 18, 2024 End: November 30, 2024 Gt Moncada MD Other Provider Active Start : November 18, 2024 End: November 30, 2024 Rahul Barboza MD Other Provider Active Start: 2024 End: November 30, 2024 Glory Miguel APRN Other Provider Active Sta rt: November 18, 2024 End: November 30, 2024 Jann Cedillo APRN Other Provider Active Start: October End: November 30, 2024 Destinee Oscar RN Other Provider Active Start: 2024 End: November 30, 2024 Chris Arce DO Other Provider Active Start: November 18, 2024 End: November 30, 2024 Team Status: Active Member Role Status Dates Mylene Dunn MD Primary Care Provider Active Start: November 19, 2024 Jorge Clifton MD Admit Provid er, Attending Provider, Other Provider Active Start: November 19, 2024 Gabriela Gurrola RN Other Provider Active Star t: November 19, 2024 Ольга Tiwari RN Other Provider Active Start : November 19, 2024 Aracelis Suarez RN Other Provider Active Star t: November 19, 2024 Stacey Aranda , GREG Other Provider Active Start: ebruary 2024 Mariya Hutton RN Other Provider Active Start: 2024 Lucia Orlando MD Other Provider Active Start: November 19, 2024 Aldair Rivera DO Other Provider Active Start : November 19, 2024 Jose Alfredo Sorenson MD Other Provider Active Start : November 19, 2024 Vicente Acevedo DO Other Provider Active Start: November 19, [address] MD Other Provider Active Start: November 19, 2024 Christine Goodson MD Other Provider Active Start : November 19, 2024 Jason Vickers DO Other Provider Active St art: [...] Other Provider Active Start: November 19, 2024 Jason Medina DO Other Provider Active Start: November 19, 2024 Moises Samson MD Other Provider Active Start: 2024 Wayne Rowley MD Other Provider Active Start: Oct Lesvia Conteh NP-Jaziel Other Provider Active St art: November 19, 2024 Andrew Sultana APRN Other Provider Active Star t: November 19, 2024 J Carlos Wiley MD Other Provider Active Start: November 19, 2024 Fuad Thomas MD Other Provider Active Start: 2024 Hemal Sharma MD Other Provider Active Start: Octary 2024 Bong Patel MD Other Provider Active Star t: November 19, 2024 Carlos Eduardo Monreal MD Other Provider Active Start: ebruary 2024 Arabella Rae , DO Other Provider Active Start: 2024 Liam Tran , DO Other Provider Active Start : November 19, 2024 Pratibha Wright APRN Other Provider Active Start: November 19, 2024 Edy Hoyt , Other Provider Active Start: November 19, 2024 Dylan Callejas MD Other Provider Active Sta rt: November 19, 2024 Ninfa Rodriguez APRN Other Provider Active Start : November 19, 2024 Lauren Hutchinson APRN Other Provider Active St art: November 19, 2024 Kaila Sainz MD Other Provider Active Start: 2024 Blayne Yoon MD Other Provider Active S tart: November 19, 2024 Eric Ibarra , Other Provider Active Star t: November 19, 2024 Chester Ashley , Other Provider Active Start: November 19, 2024 Bryan Sharma MD Other Provider Active Start: November 19, 2024 Rob Rodriguez MD Other Provider Active Start: October Lissa Butcher APRN Other Provider Active Star t: November 19, 2024 Orestes Guthrie MD Other Provider Active Start: 2024 Aris Clark MD Other Provider Active Start: 2024 Kayden Soliz MD Other Provider Active Start: November 19, 2024 Gt Moncada MD Other Provider Active Start : November 19, 2024 Rahul Barboza MD Other Provider Active Start: ebary 2024 Glory Miguel APRN Other Provider Active Sta rt: November 19, 2024 Jann Cedillo APRN Other Provider Active Start: October Destinee Oscar RN Other Provider Active Start: ebary 2024 Team Status: Active Member Role Status Dates Mylene Dunn MD Primary Care Provider Active Start: November 26, 2024 Jorge Clifton MD Admit Provid er, Attending Provider, Other Provider Active Start: November 26, 2024 Gabriela Gurrola RN Other Provider Active Star t: November 26, 2024 Ольга Tiwari RN Other Provider Active Start : November 26, 2024 Aracelis Suarez RN Other Provider Active Star t: November 26, 2024 Stacey Aranda RN Other Provider Active Start: [facility] 2024 Mariya Hutton RN Other Provider Active Start: [facility] 2024 Lucia Orlando MD Other Provider Active Start: November 26, 2024 Aldair Rivera DO Other Provider Active Start : November 26, 2024 Jose Alfredo Sorenson MD Other Provider Active Start : November 26, 2024 Vicente Acevedo DO Other Provider Active Start: November 26, [address] MD Other Provider Active Start: November 26, 2024 Christine Goodson MD Other Provider Active Start : November 26, 2024 Jason Vickers DO Other Provider Active St art: November 26, 2024 Gt Devlin MD Other Provider Active Start: [facility] 2024 Re Rivera APRN Other Provider Active Start: November 26, 2024 Sebastian Zacarias MD Other Provider Active Start: November 26, 2024 Sylvain Hurtado MD Other Provider Active Start: [facility] 2024 Elizabeth Holguin MD Other Provider Active Start: November 26, 2024 Isaura Pepper MD Other Provider Active Start: November 26, 2024 Jason Medina DO Other Provider Active Start: November 26, 2024 Moises Samson MD Other Provider Active Start: [facility] 2024 Wayne Rowley MD Other Provider Active Start: [facility] 2024 Lesvia Conteh NP-C Other Provider Active St art: November 26, 2024 Andrew Sultana APRN Other Provider Active Star t: November 26, 2024 J Carlos Wiley MD Other Provider Active Start: November 26, 2024 Fuad Thomas MD Other Provider Active Start: [facility] 2024 Hemal Sharma MD Other Provider Active Start: [facility] 2024 Bong Patel MD Other Provider Active Star t: November 26, 2024 Carlos Eduardo Monreal MD Other Provider Active Start: [facility] 2024 Arabella Rae DO Other Provider Active Start: [facility] 2024 Liam Tran , DO Other Provider Active Start : November 26, 2024 Pratibha Wright APRN Other Provider Active Start: November 26, 2024 Edy Hoyt , Other Provider Active Start: November 26, 2024 Dylan Callejas MD Other Provider Active Sta rt: November 26, 2024 Ninfa Rodriguez APRN Other Provider Active Start : November 26, 2024 Lauren Hutchinson APRN Other Provider Active St art: November 26, 2024 Kaila Sainz MD Other Provider Active Start: [facility] 2024 Blayne Yoon MD Other Provider Active S tart: November 26, 2024 Eric Ibarra , DO Other Provider Active Star t: November 26, 2024 Chester Ashley , Other Provider Active Start: November 26, 2024 Bryan Sharma MD Other Provider Active Start: November 26, 2024 Rob Rodriguez MD Other Provider Active Start: November 26 Lissa Butcher APRN Other Provider Active Star t: November 26, 2024 Orestes Guthrie MD Other Provider Active Start: [facility] 2024 Aris Clark MD Other Provider Active Start: [facility] 2024 Kayden Soliz MD Other Provider Active Start: November 26, 2024 Gt Moncada MD Other Provider Active Start : November 26, 2024 Rahul Barboza MD Other Provider Active Start: [facility] 2024 Glory Miguel APRN Other Provider Active Sta rt: November 26, 2024 Jann Cedillo APRN Other Provider Active Start: November 26 Destinee Oscar RN Other Provider Active Start: [facility] 2024 Chris Arce DO Other Provider Active Start: November 26, 2024 Team Status: Active Member Role Status Dates Mylene Dunn MD Primary Care Provider Active Start: November 27, 2024 Jorge Clifton MD Admit Provid er, Other Provider Active Start: November 27, 2024 Gabriela Gurrola RN Other Provider Active Star t: November 27, 2024 Ольга Tiwari RN Other Provider Active Start : November 27, 2024 Aracelis Suarze RN Other Provider Active Star t: November 27, 2024 Stacey Aranda , GREG Other Provider Active Start: [facility] 2024 Mariya Hutton RN Other Provider Active Start: [facility] 2024 Lucia Orlando MD Other Provider Active Start: November 27, 2024 Aldair Rivera DO Other Provider Active Start : November 27, 2024 Jose Alfredo Sorenson MD Other Provider Active Start : November 27, 2024 Vicente Acevedo DO Other Provider Active Start: November 27, [address] MD Other Provider Active Start: November 27, 2024 Christine Goodson MD Other Provider Active Start : November 27, 2024 Jason Vickers DO Other Provider Active St art: November 27, 2024 Gt Devlin MD Other Provider Active Start: [facility] 2024 Re Rivera APRN Other Provider Active Start: November 27, 2024 Sebastian Zacarias MD Other Provider Active Start: November 27, 2024 Sylvain uHrtado MD Other Provider Active Start: [facility] 2024 Elizabeth Holguin MD Other Provider Active Start: November 27, 2024 Isaura Pepper MD Other Provider Active Start: November 27, 2024 Jason Medina DO Other Provider Active Start: November 27, 2024 Moises Samson MD Other Provider Active Start: [facility] 2024 Wayne Rowley MD Other Provider Active Start: [facility] 2024 Lesvia Conteh NP-C Other Provider Active St art: November 27, 2024 Andrew Sultana APRN Other Provider Active Star t: November 27, 2024 J Carlos Wiley MD Other Provider Active Start: November 27, 2024 Fuad Thomas MD Other Provider Active Start: [facility] 2024 Hemal Sharma MD Other Provider Active Start: [facility] 2024 Bong Patel MD Other Provider Active Star t: November 27, 2024 Carlos Eduardo Monreal MD Other Provider Active Start: [facility] 2024 Arabella Rae DO Other Provider Active Start: [facility] 2024 Liam Tran DO Other Provider Active Start : November 27, 2024 Pratibha Wright APRN Other Provider Active Start: November 27, 2024 Edy Hoyt , Other Provider Active Start: November 27, 2024 Dylan Callejas MD Other Provider Active Sta rt: November 27, 2024 Ninfa Rodriguez APRN Other Provider Active Start : November 27, 2024 Lauren Hutchinson APRN Other Provider Active St art: November 27, 2024 Kaila Sainz MD Other Provider Active Start: [facility] 2024 Blayne Yoon MD Other Provider Active S tart: November 27, 2024 Eric Ibarra , DO Other Provider Active Star t: November 27, 2024 Chester Ashley , DO Other Provider Active Start: November 27, 2024 Bryan Sharma MD Other Provider Active Start: November 27, 2024 Rob Rodriguez MD Other Provider Active Start: November 27 Lissa Butcher APRN Other Provider Active Star t: November 27, 2024 Orestes Guthrie MD Other Provider Active Start: [facility] 2024 Aris Clark MD Other Provider Active Start: [facility] 2024 Kayden Soliz MD Other Provider Active Start: November 27, 2024 Gt Moncada MD Other Provider Active Start : November 27, 2024 Rahul Barboza MD Other Provider Active Start: [facility] 2024 Glory Miguel APRN Other Provider Active Sta rt: November 27, 2024 Jann Cedillo APRN Other Provider Active Start: November 27 Destinee Oscar RN Other Provider Active Start: [facility] 2024 Chris Arce DO Other Provider Active Start: November 27, 2024 Nica Martinez DO Attending Provider Active Start: November 27, 2024 Team Status: Active Member Role Status Dates Mylene Dunn MD Primary Care Provider Active Start: November 29, 2024 Magy Olvera CMA Attending Provider Active Start: November 29, 2024 Team Status: Inactive Member Role Status Dates Mylene Dunn MD Primary Care Provide r, Attending Provider Active Start: December 03, 2024 End: December 03, 2024 Team Status: Inactive Member Role Status Dates Mylene Dunn MD Primary Care Provider Active Start: December 07, 2024 End: December 07, 2024 Godwin Gordillo DO Attending Provider Active S tart: December 07, 2024 End: December 07, 2024 Team Status: Inactive Member Role Status Dates Mylene Dunn MD Primary Care Provide r, Attending Provider Active Start: February 05, 2025 End: February 05, 2025 Team Status: Active Member Role Status Dates Mylene Dunn MD Primary Care Provide r, Attending Provider Active Start: October 05, 2024 Team Status: Active Member Role Status Dates Monty Rubio DO Emergency Provider Active Start: November 10, 2024 Mylene Dunn MD Primary Care Provider Active Start: November 10, 2024 Orestes Guthrie MD Admit Provider, Atte nding Provider Active Start: November 10, 2024 Power System Dispatcher Relationship Specialty Start [place] [address] PCP - General Family Medicine 09/14/22 Power System Dispatcher Relationship Specialty Start [place] [address] PCP - General Family Medicine 09/14/22 Power System Dispatcher Relationship Specialty Start Date End Date [place] [facility] [address] PCP - General Family Medicine 09/14/22 Power System Dispatcher Relationship Specialty Start [place] [address] PCP - General Family Medicine 09/14/22 Prabhjot Gipson MD [address] [place] [address] Referring Cardiology 09/22/22 Power System Dispatcher Relationship Specialty Start [place] [address] PCP - General Family Medicine 09/14/22 Prabhjot Gipson MD [address] [place] [address] Referring Cardiology 09/22/22 Power System Dispatcher Relationship Specialty Start Date End Date Polina Dunn [place] [address] PCP - General Family Medicine 09/14/22 Prabhjot Gipson MD [address] [place] [address] Referring Cardiology 09/22/22 Power System Dispatcher Relationship Specialty Start Date End Date Polina Dunn [facility] [place] [address] PCP - General Family Medicine 09/14/22 Prabhjot Gipson MD [address] [place] [address] Referring Cardiology 09/22/22 Power System Dispatcher Relationship Specialty Start Date End Date Polina Dunn [facility] [place] [address] PCP - General Family Medicine 09/14/22 Prabhjot Gipson MD [address] [place] [address] Referring Cardiology 09/22/22 Power System Dispatcher Relationship Specialty Start Date End Date Polina Dunn [facility] [place] [address] PCP - General Family Medicine 09/14/22 Prabhjot Gipson MD [address] [place] [address] Referring Cardiology 09/22/22 Power System Dispatcher Relationship Specialty Start Date End Date Polina Dunn [facility] [place] [address] PCP - General Family Medicine 09/14/22 Prabhjot Gipson MD [address] [place] [address] Referring Cardiology 09/22/22 Power System Dispatcher Relationship Specialty Start Date End Date Polina Dunn [facility] [place] [address] PCP - General Family Medicine 09/14/22 Prabhjot Gipson MD [address] [place] [address] Referring Cardiology 09/22/22 Power System Dispatcher Relationship Specialty Start Date End Date Polina Dunn [facility] [place] [address] PCP - General Family Medicine 09/14/22 Prabhjot Gipson MD [address] [facility] [place] [address] Referring Cardiology 09/22/22 Power System Dispatcher Relationship Specialty Start Date End Date Polina Dunn [facility] [place] [address] PCP - General Family Medicine 09/14/22 Prabhjot Gipson MD [address] [place] [address] Referring Cardiology 09/22/22 Power System Dispatcher Relationship Specialty Start Date End Date [place] [address] PCP - General Family Medicine 09/14/22 Prabhjot Gipson MD [address] [place] [address] Referring Cardiology 09/22/22 Power System Dispatcher Relationship Specialty Start Date End Date MonaPolina [facility] [place] [address] PCP - General Family Medicine 09/14/22 Prabhjot Gipson MD [address] [place] [address] Referring Cardiology 09/22/22 Power System Dispatcher Relationship Specialty Start Date End Date Polina Dunn [facility] [place] [address] PCP - General Family Medicine 09/14/22 Prabhjot Gipson MD [address] [place] [address] Referring Cardiology 09/22/22 Power System Dispatcher Relationship Specialty Start Date End Date Polina Dunn [facility] [place] [place] [address] PCP - General Family Medicine 09/14/22 Prabhjot Gipson MD [address] [place] [address] Referring Cardiology 09/22/22 Power System Dispatcher Relationship Specialty Start Date End Date Polina Dunn [place] [address] PCP - General Family Medicine 09/14/22 Prabhjot Gipson MD [address] [place] [address] Referring Cardiology 09/22/22 Power System Dispatcher Relationship Specialty Start Date End Date Polina [place] [address] PCP - General Family Medicine 09/14/22 Prabhjot Gipson MD [address] [place] [address] Referring Cardiology 09/22/22 Team Status: Inactive Member Role Status Dates Mylene Dunn MD Primary Care Provider, Attending Dony dumont Active Power System Dispatcher Relationship Specialty Start Date End Date Polina Dunn [address] [place] [address] PCP - General Family Medicine 09/14/22 Prabhjot Gipson MD [address] [place] [address] Referring Cardiology 09/22/22 Power System Dispatcher Relationship Specialty Start Date End Date Polina Dunn R[address] [place] [address] PCP - General Family Medicine 09/14/22 Prabhjot Gipson MD [address] [place] [address] Referring Cardiology 09/22/22 Power System Dispatcher Relationship Specialty Start Date End Date Polina Dunn RPh [address] [facility] [place] [address] PCP - General Family Medicine 09/14/22 Prabhjot Gipson MD [address] [place] [address] Referring Cardiology 09/22/22 Power System Dispatcher Relationship Specialty Start Date End Date Polina Dunn RPh [address] [facility] [place] [address] PCP - General Family Medicine 09/14/22 Prabhjot Gipson MD [address] [place] [address] Referring Cardiology 09/22/22 Team Status: Inactive Member Role Status Dates Mylene Dunn MD Primary Care Provide r, Attending Provider Active Start: February 06, 2024 End: February 06, 2024 Team Status: Inactive Member Role Status Dates Mylene Dunn MD Primary Care Provide r, Attending Provider Active Start: March 01, 2024 End: March 01, 2024 Power System Dispatcher Relationship Specialty Start Date End Date Polina Dunn RP [address] [place] [address] PCP - General Family Medicine 09/14/22 Prabhjot Gipson MD [address] [place] [address] Referring Cardiology 09/22/22 Team Status: Inactive Member Role Status Dates Mylene Dunn MD Primary Care Provide r, Attending Provider Active Start: July 13, 2024 End: July 13, 2024 Power System Dispatcher Relationship Specialty Start Date End Date Polina Dunn RPh [address] [place] [address] PCP - General Family Medicine 09/14/22 Prabhjot Gipson MD [address] [place] [address] Referring Cardiology 09/22/22 Power System Dispatcher Relationship Specialty Start Date End Date Polina Dunn RPh [address] [place] [address] PCP - General Family Medicine 09/14/22 Prabhjot Gipson MD [address] [place] [address] Referring Cardiology 09/22/22 Power System Dispatcher Relationship Specialty Start Date End Date Polina Dunn RPh [address] [place] [address] PCP - General Family Medicine 09/14/22 Prabhjot Gipson MD [facility] [place] [address] Referring Cardiology 09/22/22 Team Status: Active Member Role Status Dates Mylene Dunn MD Primary Care Provide r, Attending Provider Active Start: August 01, 2024 Team Status: Inactive Member Role Status Dates Mylene Dunn MD Primary Care Provide r, Attending Provider Active Start: August 07, 2024 End: August 07, 2024 Power System Dispatcher Relationship Specialty Start Date End Date Mylene Dunn MD [address] [place], [place] [id number] PCP - General 12/22/17 Power System Dispatcher Relationship Specialty Start Date End Date Mylene Dunn MD [address] [place] [address] PCP - General 12/22/17 Power System Dispatcher Relationship Specialty Start Date End Date Mylene Dunn MD [address] [place] [phone] PCP - General Family Medicine 07/20/23 Team Status: Active Member Role Status Dates Mylene Dunn MD Primary Care Provider Active Start: December 07, 2024 Godwin Gordillo DO Attending Provider Active S tart: December 07, 2024 Name Effective Dates (start - stop) Status Members No Information Power System Dispatcher Relationship Specialty Start Date End Date Mylene Dunn MD [address] [place] [phone] PCP - General Family Medicine 07/20/23 Power System Dispatcher Relationship Specialty Start Date End Date Mylene Dunn MD [address] [place] [place] [address] PCP - General 12/22/17 Power System Dispatcher Relationship Specialty Start Date End Date Polina Dunn [facility] [address] [place] [address] PCP - General Family Medicine 09/14/22 Prabhjot Gipson MD [address] [place] [address] Referring Cardiology 09/22/22 Power System Dispatcher Relationship Specialty Start Date End Date Mylene Dunn MD [address] [facility] [place] [phone] PCP - General Family Medicine 02/25/25 Power System Dispatcher Relationship Specialty Start Date End Date Mylene Dunn MD [address] [place] [facility] [place] [phone] PCP - General Family Medicine 02/25/25 Power System Dispatcher Relationship Specialty Start Date End Date Mylene Dunn MD [address] [place] [facility] [place] [phone] PCP - General Family Medicine 02/25/25 Power System Dispatcher Relationship Specialty Start Date End Date Mylene Dunn MD [address] [place] [place] [address] PCP - General 12/22/17 Power System Dispatcher Relationship Specialty Start Date End Date Mylene Dunn MD [address] [place] [place] [address] PCP - General 12/22/17 Team Status: Inactive Member Role Status Dates Mylene Dunn MD Primary Care Provider Active Start: February 05, 2025 End: February 05, 2025 Mylene Dunn MD Attending Provider Active St art: February 05, 2025 End: February 05, 2025 Team Status: Inactive Member Role Status Dates Mylene Dunn MD Primary Care Provider Active Start: March 11, 2025 End: March 11, 2025 Godwin Gordillo DO Attending Provider Active S tart: March 11, 2025 End: March 11, 2025 Team Status: Inactive Member Role Status Dates Mylene Dunn MD Primary Care Provider Active Start: April 01, 2025 End: April 01, 2025 Mylene Dunn MD Attending Provider Active St art: April 01, 2025 End: April 01, 2025 Power System Dispatcher Relationship Specialty Start Date End Date Mylene Dunn MD [address] [place] [facility] [place] [phone] PCP - General Family Medicine 02/25/25 Power System Dispatcher Relationship Specialty Start Date End Date Mylene Dunn MD [address] [place] [facility] [place] [phone] PCP - General Family Medicine 02/25/25 Team Status: Inactive Member Role Status Dates Mylene Dunn MD Primary Care Provider Active Start: June 06, 2025 End: June 06, 2025 Mylene Dunn MD Attending Provider Active St art: June 06, 2025 End: June 06, 2025 Power System Dispatcher Relationship Specialty Start Date End Date Mylene Dunn MD [address] [place] [facility] [place] [phone] PCP - General Family Medicine 02/25/25 Team Status: Inactive Member Role Status Dates Mylene Dunn MD Primary Care Provider Active Start: July 01, 2025 End: July 01, 2025 Mylene Dunn MD Attending Provider Active St art: July 01, 2025 End: July 01, 2025 Power System Dispatcher Relationship Specialty Start Date End Date Mylene Dunn MD [address] [facility] [place] [address] PCP - General Family Medicine 02/25/25 (unrecognized sect ion and content) No Status Records FoundNo Status Records FoundNo Status Records FoundNo Status Records FoundNo Status Records FoundNo Status Records FoundNo Status Records FoundNo Status Records FoundNo Status Records FoundNo Status Records FoundNo Status Records FoundNo Status Records FoundNo Status Records FoundNo Status Records FoundNo Status Records FoundNo Status Records FoundNo Status Records FoundNo Status Records FoundNo Status Records FoundNo Status Records FoundNo Status Records FoundNo Status Records FoundNo Status Records FoundNo Status Records FoundNo Status Records FoundNo Status Records FoundNo Status Records FoundNo Status Records FoundNo Status Records FoundNo Status Records FoundNo Status Records FoundNo Status Records FoundNo Status Records FoundNo Status Records FoundNo Status Records FoundNo Status Records FoundNo Status Records FoundNo Status Records FoundNo Status Records FoundNo Status Records FoundNo Status Records FoundNo Status Records FoundNo Status Records FoundNo Status Records FoundNo Status Records FoundNo Status Records Found INFORMATION SOURCE (unrecogn ized section and content) DATE CREATED AUTHOR 04/28/2022 [facility] DATE CREATED AUTHOR AUTHOR'S ORGANIZ ATION 06/05/2022 [facility] DATE CREATED AUTHOR AUTHOR'S ORGANIZ ATION 08/25/2022 [facility] DATE CREATED AUTHOR AUTHOR'S ORGANIZ ATION 01/14/2023 [facility] DATE CREATED AUTHOR AUTHOR'S ORGANIZ ATION 01/16/2023 [facility] DATE CREATED AUTHOR AUTHOR'S ORGANIZ ATION 10/21/2024 [facility] DATE CREATED AUTHOR AUTHOR'S ORGANIZ ATION 10/22/2024 [facility] DATE CREATED AUTHOR AUTHOR'S ORGANIZ ATION 10/23/2024 [facility] DATE CREATED AUTHOR AUTHOR'S ORGANIZ ATION 10/24/2024 [place] DATE CREATED AUTHOR AUTHOR'S ORGANIZ ATION 10/25/[address] [facility] DATE CREATED AUTHOR AUTHOR'S ORGANIZ ATION 11/11/2024 [facility] DATE CREATED AUTHOR AUTHOR'S ORGANIZ ATION 12/20/2024 [facility] DATE CREATED AUTHOR AUTHOR'S ORGANIZ ATION 12/30/2024 [facility] DATE CREATED AUTHOR AUTHOR'S ORGANIZ ATION 01/23/2025 [facility] DATE CREATED AUTHOR AUTHOR'S ORGANIZ ATION 01/29/2025 [facility] DATE CREATED AUTHOR AUTHOR'S ORGANIZ ATION 05/25/2025 [facility] DATE CREATED AUTHOR AUTHOR'S ORGANIZ ATION 06/15/2025 [facility] DATE CREATED AUTHOR AUTHOR'S ORGANIZ ATION 07/05/[address] [facility] DATE CREATED AUTHOR AUTHOR'S ORGANIZ ATION 07/10/2025 [facility] <item> Privacy Markings (unrecogniz ed section and content) Section Author: Katie Corley PROHIBITION ON REDISCLOSURE OF CONFIDENTIAL INFORMATION This notice accompanies a disclosure of information concerning a client made to you with the consent of such client. Goals (unrecognized section and content) Goals may be documented in a n alternate section Scheduled Active and Recently Administ ered Medications (unrecognized section and content) Medication Order 10/31/2024 11/01/2024 11/02/2024 acetaminophen (Tylenol) tablet 975 mg 975 mg, oral, Every 8 hours, First dose (after last modification) on Ashtyn 11/01/24 at 1030, If ordered PRN for pain, nurse is permitted to administer this medication for higher pain scores based on patient preference? Yes 1218 (Given - Provider: Angela Catherine RN - Comment: nursing workflow)2048 (Given - Provider: Krys Mary, GREG) 0505 (Given - Provider: Krys Mary RN)1030 (Due)1830 (Due) cefTRIAXone (Rocephin) 2 g in dextrose (iso) IV 50 mL 2 g, intravenous, at 100 mL/hr, Administer over 30 Minutes, Every 24 hours, First dose on Tue10/28/24 at 1100, premix bag, Suspected Indication (Select all that apply): Pneumonia, Type of Therapy: Empiric, Indications: Pneumonia 1034 (New Bag - Provider: Titi Brooke RN)1153 (Stopped - Provider: Titi Brooke RN) 1218 (New Bag - Provider: Angela Catherine RN - Comment: nursing workflow)1253 (Stopped - Provider: Angela Catherine RN) 1100 (Due) clopidogrel (Plavix) tablet 75 mg 75 mg, oral, Daily, First dose (after last modification) on Ashtyn 10/25/24 at 1700 0910 (Given - Provider: Nina Medrano MA) 0853 (Given - Provider: Angela Catherine RN) 0824 (Given - Provider: Nany Lamar, RN) finasteride (Proscar) tablet 5 mg 5 mg, oral, Daily, First dose (after last modification) on [facility] 10/25/24 at 1700, Do not crush, chew, or split. 0913 (Not Given - Provider: Nina Medrano MA - Reason: Other - Comment: med can not be crushed, aware,advised to hold) 0853 (Given - Provider: Angela Catherine RN) 0824 (Given - Provider: Nany Lamar RN) heparin (porcine) injection 5,000 Units 5,000 Units, subcutaneous, Every 8 hours, First dose on Tue10/26/24 at 0500 0422 (Given - Provider: Kacie Jameson RN)1308 (Given - Provider: Titi Brooke RN)2050 (Given - Provider: Kacie Jameson RN) 0555 (Given - Provider: Kacie Jameson RN)1218 (Given - Provider: Angela Catherine RN)2048 (Given - Provider: Krys Mary RN) 0506 (Given - Provider: Krys Mary RN)1300 (Due)2099 (Due) latanoprost (Xalatan) 0.005 % ophthalmic solution 1 drop 1 drop, Both Eyes, Nightly, First dose on Tue10/24/24 at 2100 0 (Given - Provider: Kacie Jameson RN) 2112 (Given - Provider: Krys Mary RN) 2099 (Due) lidocaine 2 % mucosal jelly (Uro-Jet) 1 Application 1 Application, Topical, Once, On Tue10/26/24 at 1115, For 1 dose, Apply to tube prior to admin . lidocaine 4 % patch 1 patch 1 patch, transdermal, Administer over 12 Hours, Every 24 hours, First dose on Tue10/25/24 at 1700, Apply to knee. Patch will remain on for 12 hours, then removed for [address] patch directly over any surgical incisions or wounds. 0423 (Medication Removed - Provider: Kacie Jameson RN)1811 (Medication Applied - Provider: Titi Brooke RN) 0611 (Due: Medication Removed - Provider: Titi Brooke RN)180 (Not Given - Provider: Angela Catherine RN - Reason: Patient/family refused - Comment: pt did not want to be turned) 1700 (Due) melatonin tablet 5 mg 5 mg, oral, Nightly, First dose on Tue10/27/24 at 1930 2049 (Given - Provider: Kacie Jameson RN) 2048 (Given - Provider: Krys Mary RN) 2099 (Due) metoprolol tartrate (Lopressor) tablet 50 mg 50 mg, oral, 2 times daily, First dose (after last modification) on Tue10/28/24 at 2100 0911 (Given - Provider: Nina Medrano MA)2049 (Given - Provider: Kacie Jameson RN) 0853 (Given - Provider: Angela Catherine RN)2048 (Given - Provider: Krys Mary RN) 0824 (Given - Provider: Nany Lamar RN)2099 (Due) rosuvastatin (Crestor) tablet 10 mg 10 mg, oral, Daily, First dose on Tue10/24/24 at 1500 0911 (Given - Provider: Nina Medrano MA) 0853 (Given - Provider: Angela Catherine RN) 0824 (Given - Provider: Nany Lamar RN) tamsulosin (Flomax) 24 hr capsule 0.4 mg 0.4 mg, oral, Daily, First dose (after last modification) on 10/28/24 at 1115, Give 30 minutes after the same mealtime each day. Capsules should be swallowed whole; do not crush, chew, or open., On hold since 10/28/2024 at 1117 until manually unheld 09 (Not Given - Provider: Mariann Tse RN - Reason: See Provider Order) 09 (Not Given - Provider: Angela Catherine RN - Reason: See Provider Order) 09 (Not Given - Provider: Nany Lamar RN - Reason: See Provider Order) PRN Medication Order 10/31/2024 11/01/2024 11/02/2024 acetaminophen (Tylenol) tablet 975 mg (CANCELED) 975 mg, oral, Every 6 hours PRN, pain mild (1-3), first line, pain moderate (4-6), first line, pain severe (7-10), first line, Starting on 10/29/24 at 0908, If ordered PRN for pain, nurse is permitted to administer this medication for higher pain scores based on patient preference? Yes 900 (Given - Provider: Nina Medrano MA)2051 (Given - Provider: Kacie Jameson RN) dextrose 50 % injection 12.5 g 12.5 g, intravenous, Every 15 min PRN, For blood glucose 41 to 70 mg/dL, Starting on 10/27/24 at 0049, May repeat until blood glucose level reaches 100 mg/dL or greater. Push 2 - 3 mL/minute if patient has secure IV access. dextrose 50 % injection 25 g 25 g, intravenous, Every 15 min PRN, For blood glucose less than or equal to 40 mg/dL, Starting on 10/27/24 at 0049, May repeat until blood glucose level reaches 100 mg/dL or greater. Push 2 - 3 mL/minute if patient has secure IV access. glucagon (Glucagen) injection 1 mg 1 mg, intramuscular, Every 15 min PRN, blood glucose less than or equal to 40 mg/dL - see comments, For blood glucose less than or equal to 40 mg/dL and no IV access, Starting on 10/27/24 at 0049, Give until blood glucose is 100 mg/dL or greater. If patient DOES NOT HAVE secure IV access & patient is unconscious, NPO or is unable to eat or drink. glucagon (Glucagen) injection 1 mg 1 mg, intramuscular, Every 15 min PRN, blood glucose 41 to 70 mg/dL - see comments, For blood glucose 41 to 70 mg/dL and no IV access, Starting on 10/27/24 at 0049, Give until blood glucose is 100 mg/dL or greater. If patient DOES NOT HAVE secure IV access & patient is unconscious, NPO or is unable to eat or drink. guaiFENesin (Robitussin) 100 mg/5 mL syrup 200 mg 200 mg, oral, Every 4 hours PRN, congestion, Starting on Ashtyn 10/25/24 at 1231 ipratropium-albuteroL (Duo-Neb) 0.5-2.5 mg/3 mL nebulizer solution 3 mL 3 mL, nebulization, Every 2 hour PRN, wheezing, shortness of breath, Starting on Tue10/24/24 at 1119 FOR RECORDS PERTAINING TO PATIENTS WHO ARE OR HAVE BEEN ENROLLED IN A CHEMICAL DEPENDENCY/SUBSTANCEABUSE PROGRAM, SOME INFORMATION MAY BE OMITTED. This clinical summary was aggregated from multiple sources. Caution should be exercised in using it in the provision of clinical care. This summary normalizes information from multiple sources, and as a consequence, information in this document may materially change the coding, format and clinical context of patient data. In addition, data may be omitted in some cases. CLINICAL DECISIONS SHOULD BE BASED ON THE PRIMARY CLINICAL RECORDS. [employer] provides no warranty or guarantee of the accuracy or completeness of information in this document.
--- NOTE | 2025-07-10 14:31 | XR_ITS ---
The [address] [address] Patient Name: BRAVO TOLEDO MRN: [id number] date: 1940 Sex: M Assigned Patient Location: LAB Current Patient Location: LAB Accession/Order Number: [id number] Exam Date: 07/10/2025 14:35 Report Date: 07/10/2025 17:24 At the request of: MYLENE GUADALUPE MD Procedure: XR chest 2V PA AND LATERAL CHEST: CLINICAL HISTORY: Cough, Fatigue COMPARISON: 02/20/2025 FINDINGS: Sternotomy wires. Left-sided pacemaker device. Stable enlarged cardiac silhouette. Left atrial exclusion device. Evidence of prior cardiac valvular surgery. No focal airspace opacity effusion or pneumothorax. Mild hyperinflation. XR/XR chest 2V IMPRESSION: NO ACUTE CARDIOPULMONARY ABNORMALITY. Impression dictated by: Matt Macias M.D. 07/10/2025 5:24 PM Dictation Location: [place] [address] Electronically authenticated by: [id number] Date: 07/10/2025 17:24
[2025-07-10 15:16] LABS: Anion Gap 15.0; Blood Urea Nitrogen 16.0 mg/dL (7.0-18.0); Calcium 8.6 mg/dL (8.5-10.1); Carbon Dioxide 27.5 mmol/L (21.0-32.0); Chloride 106 mmol/L (98-107); Estimated GFR (African America >60 (>=60 mL/min/1.73m^2); Estimated GFR (Non-African Ame >60 (>=60 mL/min/1.73m^2); Glucose 94 mg/dL (74-106); Potassium 4.5 mmol/L (3.5-5.1); Sodium 144 mmol/L (136-145)
[2025-07-10 15:22] LABS: Hematocrit 37.6 % (42.0-54.0); Hemoglobin 12.4 g/dL (14.0-18.0); Immature Granulocytes Abs Auto 0.01 10^3/uL (0.00-0.03); Immature Granulocytes Pct Auto 0.2 % (0.0-0.5); Lymphocytes Absolute Auto 1.2 10^3/uL (1.2-3.8); Mean Corpuscular HGB Conc 33.0 g/dL (29.9-35.2); Mean Corpuscular Hemoglobin 31.1 pg (25.9-34.0); Mean Corpuscular Volume 94.2 fL (80.0-94.0); Platelet Count 186 10^3/uL (150-450); Red Blood Count 3.99 10^6/uL (4.70-6.10); White Blood Count 4.9 10^3/uL (4.0-11.0)
== END 2025-07-10 14:14 | disposition home or self-care (01) ==
PROVIDERS: PCP Family Medicine; Visit Provider Family Medicine
DX: R05.9 Cough, unspecified (principal); R53.83 Other fatigue
CPT/HCPCS: 36415; 71046; 80048; 85025